=== PATIENT | female | born 1945 | race Hispanic/Latino ===

== ENCOUNTER 2016-12-04 18:35 | Inpatient (IN) | payer MEDICARE ==
[2016-12-04] MEDS ORDERED: ZOFRAN IV ONE (20:07)
[2016-12-04] MEDS ORDERED: MORPHINE IV ONE ×2 (20:07→22:25)
[2016-12-04] MEDS ORDERED: BENADRYL IV ONE (20:16)
[2016-12-04] MEDS ORDERED: ZOFRAN IM ONE (20:31)
[2016-12-04] MEDS ORDERED: MORPHINE IM ONE (20:31)
--- NOTE | 2016-12-04 20:36 | Emergency Department Report ---
ED Fall HPI - General Chief Complaint: Fall Stated Complaint: FALL/HIP PAIN Time Seen by Provider: 12/04/16 19:58 Source: patient, family, EMS Mode of arrival: Stretcher - History of Present Illness Initial Comments: PATIENT STATED THAT SHE WAS WALKING AND TRIPPED FELL ON HER LEFT SIDE C/O LEFT HIP PAIN. NO OTHER INJURY. Complaint: fall -: Sudden Fall From: standing When Fall Occurred: just prior to arrival Fall Witnessed: yes, by family Place Fall Occurred: home Loss of Consciousness: none Prolonged Down Time?: no Symptoms Prior to Fall: none Location: pelvis Quality: sharp Context: tripped/slipped - Related Data Allergies Allergy/AdvReac Type Severity Reaction Status Date / Time Sulfa (Sulfonamide Allergy Intermediate Rash Unverified 02/18/13 09:05 Antibiotics) metoclopramide HCl Allergy Dizziness Unverified 02/18/13 09:06 [From Reglan] phenacetin [Phenacetin] Allergy Dizziness Unverified 02/18/13 09:06 ED Review of Systems ROS: Stated complaint: FALL/HIP PAIN Other details as noted in HPI Comment: All other systems reviewed and negative ED Past Medical Hx - Past Medical History Previous Medical History?: Yes Hx Renal Disease: Yes Hx Headaches / Migraines: Yes Hx Asthma: Yes Hx COPD: Yes Additional medical history: fibromyalgia lupus - Surgical History Past Surgical History?: Yes Hx Cholecystectomy: Yes Additional Surgical History: colon surgery total hyst - Social History Smoking Status: Current Every Day Smoker Substance Use Type: Prescribed ED Physical Exam - General Limitations: Physical Limitation General appearance: alert, in no apparent distress - Head Head exam: Present: atraumatic - Eye Eye exam: Present: normal appearance - ENT ENT exam: Present: normal exam - Neck Neck exam: Present: normal inspection - Respiratory Respiratory exam: Present: normal lung sounds bilaterally - Cardiovascular Cardiovascular Exam: Present: regular rate - GI/Abdominal GI/Abdominal exam: Present: soft. Absent: distended, tenderness, guarding, rebound, organomegaly, mass, bruit - Rectal Rectal exam: Present: normal inspection - Extremities Exam Extremities exam: Present: normal inspection - Back Exam Back exam: Present: normal inspection - Neurological Exam Neurological exam: Present: alert, oriented X3, CN II-XII intact. Absent: motor sensory deficit ED Course Vital Signs 12/04/16 12/04/16 12/04/16 15:16 15:20 15:30 Temperature Pulse Rate 55 L 51 L Respiratory 15 29 H 11 L Rate Blood Pressure Blood Pressure [Left] O2 Sat by Pulse 100 100 99 Oximetry 12/04/16 12/04/16 12/04/16 15:40 15:50 16:00 Temperature Pulse Rate 53 L Respiratory 18 18 16 Rate Blood Pressure Blood Pressure [Left] O2 Sat by Pulse 97 96 97 Oximetry 12/04/16 12/04/16 12/04/16 16:10 16:20 16:30 Temperature Pulse Rate Respiratory 16 17 18 Rate Blood Pressure Blood Pressure [Left] O2 Sat by Pulse 97 96 97 Oximetry 12/04/16 12/04/16 12/04/16 16:40 16:50 17:00 Temperature Pulse Rate Respiratory 17 16 17 Rate Blood Pressure Blood Pressure [Left] O2 Sat by Pulse 98 97 99 Oximetry 12/04/16 12/04/16 12/04/16 17:10 17:20 19:14 Temperature Pulse Rate Respiratory 15 19 14 Rate Blood Pressure Blood Pressure [Left] O2 Sat by Pulse 97 83 L Oximetry 12/04/16 12/04/16 12/04/16 19:20 19:30 19:34 Temperature 99 F Pulse Rate 66 68 66 Respiratory 13 17 17 Rate Blood Pressure 121/68 121/68 121/66 Blood Pressure 121/66 [Left] O2 Sat by Pulse 97 94 94 Oximetry 12/04/16 12/04/16 12/04/16 19:38 19:40 19:50 Temperature Pulse Rate 69 67 Respiratory 17 15 19 Rate Blood Pressure 132/54 132/54 Blood Pressure [Left] O2 Sat by Pulse 94 98 96 Oximetry 12/04/16 12/04/16 12/04/16 20:00 20:10 20:20 Temperature Pulse Rate 73 69 69 Respiratory 16 22 10 L Rate Blood Pressure 132/54 94/66 94/66 Blood Pressure [Left] O2 Sat by Pulse 97 97 97 Oximetry 12/04/16 12/04/16 12/04/16 20:30 20:40 20:50 Temperature Pulse Rate 66 66 66 Respiratory 11 L 12 13 Rate Blood Pressure 121/100 121/100 94/66 Blood Pressure [Left] O2 Sat by Pulse 97 95 95 Oximetry 12/04/16 12/04/16 12/04/16 21:00 21:10 21:20 Temperature Pulse Rate 67 65 66 Respiratory 16 13 14 Rate Blood Pressure 94/66 109/59 121/100 Blood Pressure [Left] O2 Sat by Pulse 95 98 99 Oximetry 12/04/16 12/04/16 12/04/16 21:30 21:40 21:50 Temperature Pulse Rate 63 65 64 Respiratory 12 13 13 Rate Blood Pressure 121/100 116/51 116/51 Blood Pressure [Left] O2 Sat by Pulse 95 96 97 Oximetry 12/04/16 12/04/16 12/04/16 22:00 22:10 23:01 Temperature Pulse Rate 68 66 Respiratory 14 15 Rate Blood Pressure 116/51 117/48 124/47 Blood Pressure [Left] O2 Sat by Pulse 94 95 95 Oximetry - Reevaluation(s) Reevaluation #1: 12/05/16 00:[address] PALOMINO AND HE ADVISED TO ADMIT TO THE HOSPITALIST AND WILL DO SURGERY ON SATURDAY. Critical care attestation.: If time is entered above; I have spent that time in minutes in the direct care of this critically ill patient, excluding procedure time. ED Disposition Clinical Impression: Closed left hip fracture Disposition: OP ADMIT IP TO THIS HOSP Is pt being admited?: Yes Does the pt Need Aspirin: No Condition: Stable Referrals: PRIMARY CARE, [Primary Care Provider] - 3-5 Days
[2016-12-04] MEDS ORDERED: DECADRON IV ONE (22:25)
--- NOTE | 2016-12-04 23:36 | Cat Scan Report ---
FINAL REPORT PROCEDURE: CT LOWER EXTREMITY LT WO CON TECHNIQUE: Computerized axial tomography of the LEFT hip was performed without contrast. HISTORY: LEFT HIP INJURY, R/O FX COMPARISON: No prior studies are available for comparison. FINDINGS: Bony structures including marrow spaces: There is an impacted fracture of the proximal left femur involving a portion of the femoral neck and extending in the intertrochanteric region of the proximal left femur. Neurovascular structures: Normal. Soft tissues: Mild soft tissue swelling Joint space: Normal. IMPRESSION: Impacted fracture of the proximal left femur involving a portion of the distal femoral neck and extending in the intertrochanteric region of the proximal left femur. Mild associated soft tissue swelling.
[2016-12-05] MEDS ORDERED: MORPHINE IV ONE (00:28)
--- NOTE | 2016-12-05 01:00 | History and Physical Report ---
History of Present Illness Date of examination: 12/05/16 History of present illness: 71-year-old woman with a history of hypertension, lupus, fibromyalgia, COPD comes to the emergency room complaining of left hip pain after a fall. Was no loss of consciousness, patient think that she tripped over an object on the floor Patient denies chest pain, palpitation, shortness of breath, cough, abdominal pain, hematochezia, dysuria, frequency, focal weakness, dysarthria, fever chills , polydipsia polyuria, hot or cold intolerance, easy bruisability, or rash or bleeding from mucosal membrane, rhinorrhea, epistaxis, earache, tinnitus, blurry vision, eye discharge, anxiety, depression. Other review of systems negative PAST SURGICAL HISTORY: Colectomy, hysterectomy, cholecystectomy SOCIAL HISTORY: Smoke a pack a day, no alcohol or drugs FAMILY HISTORY: Hypertension Medications and Allergies Allergies Allergy/AdvReac Type Severity Reaction Status Date / Time Sulfa (Sulfonamide Allergy Intermediate Rash Unverified 02/18/13 09:05 Antibiotics) metoclopramide HCl Allergy Dizziness Unverified 02/18/13 09:06 [From Reglan] phenacetin [Phenacetin] Allergy Dizziness Unverified 02/18/13 09:06 Exam - Physical Exam Narrative exam: Gen. appearance: Patient lying in bed, no apparent distress HEENT: Normocephalic, atraumatic, pupils equally round and reactive to light, extraocular movement intact, and no sclericterus,. No JVD or thyromegaly or nodule,neck supple, no carotid bruit ,mucous membranes moist, no exudate or erythema Heart: S1, S2, regular rate and rhythm Lungs: Clear to auscultation bilaterally, breathing comfortable Abdomen: Positive bowel sounds, nontender, nondistended, no organomegaly Extremity: No edema, cyanosis, clubbing Skin: No rash, nodules, warm, dry Neuro: Oriented 3, cranial nerves II-12 intact, speech is fluent, motor and sensory intact - Constitutional Vitals: Temp Pulse Resp BP Pulse Ox 99 F 74 18 130/56 95 12/04/16 19:34 12/05/16 00:35 12/05/16 00:35 12/05/16 00:20 12/05/16 00:20 Results - Labs CBC & Chem 7: 12/05/16 01:17 12/05/16 01:17 - Imaging and Cardiology EKG: image reviewed Assessment and Plan CT lower extremity reviewed Left hip fracture Hypertension Lupus Fibromyalgia COPD Admit to medicine Start IV morphine, consult orthopedic Continue outpatient medication, start DVT prophylaxis Check labs now
[2016-12-05] MEDS ORDERED: DULCOLAX PR PRN (01:14)
[2016-12-05] MEDS ORDERED: ZOFRAN IV PRN (01:14)
[2016-12-05] MEDS ORDERED: MILK OF MAGNESIA PO PRN (01:14)
[2016-12-05 01:35] LABS: Basophils % (Auto) 0.5 % (0.0-1.8); Eosinophils % (Auto) 1.1 % (0.0-4.3); Hemoglobin 13.1 gm/dl (10.1-14.3); Mean Corpuscular HGB Conc 33 % (30-34); Mean Corpuscular Hemoglobin 30 pg (28-32); Mean Corpuscular Volume 92 fl (79-97); Platelet Count 257 K/mm3 (140-440); Red Blood Count 4.34 M/mm3 (3.65-5.03); Red Cell Distribution Width 13.9 % (13.2-15.2); White Blood Count 16.1 K/mm3 (4.5-11.0)
[2016-12-05 01:56] LABS: Anion Gap 18 mmol/L; BUN/Creatinine Ratio 12.85; Blood Urea Nitrogen 9 mg/dL (7-17); Calcium 8.5 mg/dL (8.4-10.2); Carbon Dioxide 28 mmol/L (22-30); Chloride 98.6 mmol/L (98-107); Glucose 123 mg/dL (65-100); Potassium 3.1 mmol/L (3.6-5.0); Sodium 141 mmol/L (137-145)
[2016-12-05] MEDS ORDERED: K-DUR PO ONE (01:59)
--- NOTE | 2016-12-05 02:15 | Admit Criteria Form ---
Admission Criteria Documentation: MUSCULOSKELETAL DISEASE GRG Clinical Indications for Admission to Inpatient Care (Place 'X' for any and all applicable criteria): Hospital admission is needed for appropriate care of the patient because of 1 or more of the following: [ X]I. Fracture, dislocation, or other musculoskeletal injury requiring inpatient care(medical) as indicated by 1 or more of the following(4)(5)(6)(7) [ ]a) Vertebral fracture requiring observation for instability or neurologic compromise (8) [ ]b) Compartment syndrome (proven or cannot be ruled out during observation level of care) (9) [ ]c) Limb-threatening injury [ X]d) Major injury requiring inpatient stabilization such as traction initiation or external fixation before internal fixation or closure of complex or open fracture [ ]e) Major injury requiring inpatient treatment after emergency or observation level care (as appropriate) [ ]f) Severe pain requiring acute inpatient management [ ]g) Injury with suspicion of abuse or neglect (eg., child, dependent elderly) [ ]II. Newly diagnosed or suspected bone, joint, or orthopedic device infection (e.g., osteomyelitis, septic arthritis) needing 1 or more of the following(1)(2)(3) [ ]a) IV antibiotics that cannot be initiated in other than inpatient setting (e.g., patient too unstable or home infusion not available) [ ]b) Device removal or replacement [ ]c) Bone or soft tissue debridement [ ]d) Joint drainage (drain placement or repetitive aspirations) [ ]III. Severe rheumatologic disease (e.g., systemic lupus erythematosus, rheumatoid arthritis) with complications or comorbidities (Also use Optimal Recovery Care Criteria or General Recovery Criteria as appropriate on the basis of predominant condition), including 1 or more of the following( 10)(11)(12)(13) [ ]a) Severe infection (e.g., GUM ROLLING MACHINE OPERATOR infection, sepsis) (14) [ ]b) Respiratory complications, including 1 or more of the following : [ ]i) Pleural effusion with respiratory compromise [ ]ii) Pulmonary hypertension with congestive failure [ ]iii) Respiratory failure [ ]iv) Pulmonary hemorrhage (15) [ ]c) Hematologic disease, including 1 or more of the following: [ ]i) Coagulopathy with bleeding [ ]ii) Thrombosis with hypercoagulable state [ ]iii) Thrombotic thrombocytopenic purpura [ ]d) Cerebritis with seizures, psychosis, or other severe abnormalities [ ]e) Vertebral destruction with monitoring needed for cervical myelopathy& possible respiratory compromise [ ]f) Exacerbation that requires inpatient treatment (e.g., intravenous immunosuppression) (16) [ ]g) Acute renal failure [ ]h) Cerebritis with seizures, psychosis, Altered mental status, or other neurologic abnormalities [ ]i) Pericardial effusion with tamponade [ ]j) Vertebral destruction, with monitoring needed for cervical myelopathy and possible respiratory compromise [ ]IV. Severe vasculitis with complications or comorbidities (Also use Optimal Recovery Care Criteria General Recovery Criteria as appropriate on the basis of predominant condition), including 1 or more of the following(11)(12)(17)(18)(19)(20) [ ]a) Exacerbation that requires inpatient treatment (e.g., intravenous immunosuppression) (19)(21) [ ]b) Pulmonary hemorrhage (15) [ ]c) G[employer] RO[employer]ING MACHINE OPERATOR vasculitis with seizures, psychosis, Altered mental status that is severe or persistent, or other severe abnormalities (22) [ ]d) Cerebral infarction [ ]e) Gastrointestinal ischemia [ ]f) Gangrene or threatened amputation [ ]g) Renal failure (16) [ ]h) Other significant complications of vasculitis ( eg., tissue or organ ischemia, organ dysfunction ) [ ]V. Severe myopathy as indicated by 1 or more of the following (28)(29) [ ]a) New onset of airway compromise or inability to swallow [ ]b) Respiratory deterioration with observation needed for impending respiratory failure [ ]c) Exacerbation that requires inpatient treatment (e.g., intravenous immunosuppression) [ ]. Severe crystal gout (arthropathy) indicated by 1 or more of the following (23)(24) [ ]a) Severe pain requiring acute inpatient management [ ]b) Exacerbation that requires inpatient treatment (e.g., intravenous treatment) [ ]VII.Rhabdomyolysis and 1 or more of the following (25)(26)(27) [ ]a) Acute renal failure [ ]b) Need for intravenous hydration after emergency or observation level care (as appropriate) [ ]c) Inability to maintain oral hydration [ ]d) Change in mental status [ ]e) Electrolyte abnormality that remains after emergency or observation level care (as appropriate) [ ]VIII Post amputation complication, as indicated by ANY ONE of the following [ ]a) Infection [ ]b) Dehiscence [ ]c) Myodesis failure [ ]IX. Severe pain requiring acute inpatient management due to musculoskeletal condition [ ]X. Musculoskeletal Disease and ALL of the following: [ ]a) Symptom or finding for which emergency and observation care have failed or are not considered appropriate (Use General Criteria: Observation Care as appropriate) [ ]b) Presence of ANY ONE of the following [ ]i) A General Admission Criteria [ ]ii) A Pediatric General Admission Criteria The original [facility] [employer] content created by [facility] [employer] has been revised. The portions of the content which have been revised are identified through the use of italic text or in bold, and [facility] has neither reviewed nor approved the modified material. All other unmodified content is copyright [facility] [employer]. Please see references footnoted in the original [facility] edition 2016 Admission Criteria Met: Yes
--- NOTE | 2016-12-05 07:55 | XRay Report ---
LEFT HIP, 2 views: History: Left hip pain after fall. Normal bone mineralization. A mildly displaced intertrochanteric fracture is identified in the proximal left femur. Fracture lines are identified through the greater trochanter. No convincing involvement of the lesser trochanter. Normal articulation of the left hip. No pelvic fracture is detected. Consider further evaluation with CT. IMPRESSION: Proximal left femur fracture as described.
[2016-12-05] MEDS: MORPHINE IV PRN ×3 (11:27→21:42)
--- NOTE | 2016-12-05 11:47 | Event Note ---
71-year-old woman with a past medical history of lupus- in remission, fibromyalgia, opioid dependence who presents status post fall found to have left hip fracture Left hip fracture Currently immobilized, continue pain medications, Dr. Kim of orthopedic surgery consulted for possible surgical management. Patient is medically optimized for surgical intervention. Opioid dependence/chronic pain syndrome due to Scoliosis and Fibromyalgia continue home meds, she will need to fup her Pain management dr, Dr Felix dean to attempt to wean her off narcotics Hypokalemia Has been repleted Fibromyalgia continue seroquel hx of migraine PORTER continue propranalol DVT prophylaxis Lovenox
[2016-12-05] MEDS ORDERED: METHADONE 10 MG PO SCH (14:00)
--- NOTE | 2016-12-05 19:06 | Consultation ---
History of Present Illness - [facility] Consult date: 12/05/16 Consult reason: fracture History of present illness: 71-year-old woman with a history of hypertension, lupus, fibromyalgia, COPD comes to the emergency room complaining of left hip pain after a fall. X-rays were obtained revealing a fracture at the base of the neck with moderate displacement Medications and Allergies Allergies Allergy/AdvReac Type Severity Reaction Status Date / Time Sulfa (Sulfonamide Allergy Intermediate Rash Unverified 02/18/13 09:05 Antibiotics) metoclopramide HCl Allergy Dizziness Unverified 02/18/13 09:06 [From Reglan] phenacetin [Phenacetin] Allergy Dizziness Unverified 02/18/13 09:06 Home Medications Medication Instructions Recorded Confirmed Last Taken Type Methadone 10 PO TID 12/05/16 12/03/16 21:00 History 10 Ondansetron 4 12/05/16 Unknown History Propranolol HCl ER 60 PO DAILY 12/05/16 12/03/16 21:00 History 60 Propranolol HCl [Propranolol HCl 60 mg PO 12/05/16 12/03/16 21:00 History ER] 60 QUEtiapine [SEROquel] 300 mg PO BID 12/05/16 12/05/16 12/05/16 04:00 History 300 Active Meds: Active Medications Bisacodyl (Dulcolax) 10 mg TN QDAY PRN PRN Reason: Constipation unrelieved by MOM Magnesium Hydroxide (Milk Of Magnesia) 30 ml PO Q4H PRN PRN Reason: Constipation Methadone HCl (Dolophine) 10 mg PO TID [facility] Morphine Sulfate (Morphine) 2 mg IV Q4H PRN PRN Reason: Pain, Moderate (4-6) Last Admin: 12/05/16 16:51 Dose: 2 mg Ondansetron HCl (Zofran) 4 mg IV Q8H PRN PRN Reason: N/V unrelieved by Reglan Oxycodone/Acetaminophen (Percocet 5/325) 2 tab PO Q6H PRN PRN Reason: Pain, Moderate (4-6) Propranolol HCl (Inderal La) 60 mg PO DAILY RICK Quetiapine Fumarate (Seroquel) 300 mg PO BID [facility] Physical Examination - Physical exam Narrative exam: Alert and oriented 3 Significant musculoskeletal examination at the left hip. She was noted to have tenderness on palpation skin was intact active range of motion decreased distal neurovascular status intact Plain x-rays of the left hip reveal a basilar neck fracture Assessment and Plan Assessment - base of the neck left femoral fracture Recommendations -intra-medullary nail insertion left hip
[2016-12-05] MEDS: DOLOPHINE PO SCH (21:41)
[2016-12-05] MEDS: PERCOCET 5/325 PO PRN (21:48)
[2016-12-06] MEDS: PERCOCET 5/325 PO PRN ×2 (06:24→17:21)
[2016-12-06 08:03] LABS: Hematocrit 38.4 % (30.3-42.9); Hemoglobin 12.5 gm/dl (10.1-14.3); Mean Corpuscular HGB Conc 32 % (30-34); Mean Corpuscular Hemoglobin 30 pg (28-32); Mean Corpuscular Volume 94 fl (79-97); Red Blood Count 4.11 M/mm3 (3.65-5.03); Red Cell Distribution Width 14.4 % (13.2-15.2); White Blood Count 14.9 K/mm3 (4.5-11.0)
[2016-12-06 08:04] LABS: Basophils % (Auto) 0.4 % (0.0-1.8); Eosinophils % (Auto) 0.9 % (0.0-4.3); Platelet Count 236 K/mm3 (140-440)
[2016-12-06 08:16] LABS: Anion Gap 14 mmol/L; Blood Urea Nitrogen 16 mg/dL (7-17); Calcium 8.6 mg/dL (8.4-10.2); Carbon Dioxide 33 mmol/L (22-30); Chloride 99.8 mmol/L (98-107); Glucose 104 mg/dL (65-100); Potassium 3.6 mmol/L (3.6-5.0); Sodium 143 mmol/L (137-145)
[2016-12-06] MEDS: MORPHINE IV PRN ×3 (08:36→21:02)
--- NOTE | 2016-12-06 08:43 | Anesthesia Consultation ---
Anesthesia Consult and Med Hx Date of service: 12/06/16 - Airway Anesthetic Teeth Evaluation: Dentures (upper and lower) ROM Head & Neck: Adequate Mental/Hyoid Distance: Adequate Mallampati Class: Class II Intubation Access Assessment: Probably Good - Pre-Operative Health Status ASA Pre-Surgery Classification: ASA3 Proposed Anesthetic Plan: Spinal - Pulmonary Hx Smoking: Yes (1 p/d x 50 years) Hx Asthma: Yes COPD: Yes (on breathing treatment) - Cardiovascular System Hx Hypertension: No (takes propanolol for other reasons) - Central Nervous System Hx Neuromuscular Disorder: Yes (lupus, fibromyalgea) Hx Back Pain: Yes (scoleosis) - Endocrine 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) - Other Systems Hx Substance Use: Yes (on high doses of prescription meds)
--- NOTE | 2016-12-06 08:46 | Anesthesia Day of Surgery ---
Anesthesia Day of Surgery - Day of Surgery Patient Examined: Yes Patient H&P Reviewed: Yes Patient is NPO: Yes Beta Blockers: Yes
[2016-12-06] MEDS ORDERED: VERSED IV NR (09:00)
[2016-12-06] MEDS ORDERED: PEPCID IV NR (09:00)
[2016-12-06] MEDS ORDERED: PROVENTIL IH NR (09:00)
[2016-12-06] MEDS: DOLOPHINE PO SCH ×2 (09:50→21:06)
[2016-12-06] MEDS: INDERAL LA PO SCH (10:00)
--- NOTE | 2016-12-06 11:22 | Progress Note ---
Assessment and Plan Assessment and plan: 71-year-old woman with a past medical history of lupus- in remission, fibromyalgia, opioid dependence who presents status post fall found to have left hip fracture Left hip fracture Currently immobilized, continue pain medications, Dr. Kim of orthopedic surgery input appreciated for intra medullary nail insertion today Patient is medically optimized for surgical intervention Opioid dependence/chronic pain syndrome due to Scoliosis and Fibromyalgia continue home meds, she will need to fup her Pain management dr, Dr Felix dean to attempt to wean her off narcotics Hypokalemia Has been repleted, and normalized Fibromyalgia continue seroquel hx of migraine PORTER continue propranalol for migraine ppx DVT prophylaxis Lovenox History Interval history: she is complaining of Left hip pain, unable to move her left hip Hospitalist Physical - Physical exam Narrative exam: General: Patient appears well in no distress HEENT: MMM, EOMI cardiac: S1-S2 heard lungs: clear to auscultation, abdomen: soft, nontender, nondistended bowel sounds positive extremities: LLE imobilized Skin: no rash or lesion Neuro: no focal deficit Psych: appropriate behavior and mood, cognition intact - Constitutional Vitals: Temp Pulse Resp BP Pulse Ox 98 F 66 18 133/49 97 12/06/16 10:00 12/06/16 10:00 12/06/16 10:00 12/06/16 10:00 12/06/16 10:00 Results - Labs CBC & Chem 7: 12/06/16 07:18 12/06/16 07:18 Labs: Laboratory Last Values WBC 14.9 K/mm3 (4.5-11.0) H 12/06/16 07:18 RBC 4.11 M/mm3 (3.65-5.03) 12/06/16 07:18 Hgb 12.5 gm/dl (10.1-14.3) 12/06/16 07:18 Hct 38.4 % (30.3-42.9) 12/06/16 07:18 MCV 94 fl (79-97) 12/06/16 07:18 MCH 30 pg (28-32) 12/06/16 07:18 MCHC 32 % (30-34) 12/06/16 07:18 RDW 14.4 % (13.2-15.2) 12/06/16 07:18 Plt Count 236 K/mm3 (140-440) 12/06/16 07:18 Lymph % (Auto) 18.4 % (13.4-35.0) 12/06/16 07:18 [place] % (Auto) 7.0 % (0.0-7.3) 12/06/16 07:18 Eos % (Auto) 0.9 % (0.0-4.3) 12/06/16 07:18 Baso % (Auto) 0.4 % (0.0-1.8) 12/06/16 07:18 Lymph # 2.8 K/mm3 (1.2-5.4) 12/06/16 07:18 [place] # 1.0 K/mm3 (0.0-0.8) H 12/06/16 07:18 Eos # 0.1 K/mm3 (0.0-0.4) 12/06/16 07:18 Baso # 0.1 K/mm3 (0.0-0.1) 12/06/16 07:18 Seg Neutrophils % 73.3 % (40.0-70.0) H 12/06/16 07:18 Seg Neutrophils # 10.9 K/mm3 (1.8-7.7) H 12/06/16 07:18 Sodium 143 mmol/L (137-145) 12/06/16 07:18 Potassium 3.6 mmol/L (3.6-5.0) 12/06/16 07:18 Chloride 99.8 mmol/L (98-107) 12/06/16 07:18 Carbon Dioxide 33 mmol/L (22-30) H 12/06/16 07:18 Anion Gap 14 mmol/L 12/06/16 07:18 BUN 16 mg/dL (7-17) 12/06/16 07:18 Creatinine 0.8 mg/dL (0.7-1.2) 12/06/16 07:18 Estimated GFR > 60 ml/min 12/06/16 07:18 BUN/Creatinine Ratio 20.00 % 12/06/16 07:18 Glucose 104 mg/dL (65-100) H 12/06/16 07:18 Calcium 8.6 mg/dL (8.4-10.2) 12/06/16 07:18
[2016-12-06] MEDS: LACTATED RINGERS 1,000 ML IV SCH ×2 (12:45→18:38)
[2016-12-06] MEDS ORDERED: XYLOCAINE MPF 2% ONE (12:58)
[2016-12-06] MEDS ORDERED: DIPRIVAN 10 MG/ML IV ONE (12:59)
[2016-12-06] MEDS ORDERED: DILAUDID ONE ×2 (12:59→14:51)
[2016-12-06] MEDS ORDERED: NACL BACTERIOSTATIC INFILTRATI ONE (13:15)
[2016-12-06] MEDS ORDERED: ePHEDrine SULFATE ONE (13:35)
[2016-12-06] MEDS ORDERED: DECADRON ONE (13:39)
[2016-12-06] MEDS ORDERED: NEOSPORIN GU IR ONE ×3 (13:39→14:15)
[2016-12-06] MEDS ORDERED: ZOFRAN ONE (13:40)
[2016-12-06] MEDS ORDERED: NACL 0.9% IR ONE ×3 (14:08→14:15)
[2016-12-06] MEDS: DILAUDID IV PRN ×4 (14:50→15:25)
--- NOTE | 2016-12-06 17:31 | Procedure Note ---
Date of procedure: 12/06/16 Pre-op diagnosis: left base of the neck femur fracture Post-op diagnosis: same Procedure: Procedure -closed reduction and insertion of intramedullary nail left femur Indications- 71-year-old female who slipped and fell recently sustaining a base of the neck femur fracture on the left Procedure The patient was brought to the OR placed or table in supine position following induction and intubation by anesthesia the patient was placed in onto the fracture table with the left lower extremity in longitudinal traction the left was suspended using a popliteal post C-arm fluoroscopy was brought in and the hip was reduced in both the AP and lateral planes. Next the left hip was prepped and draped in the usual sterile manner, this is followed by a timeout procedure to identify the patient and the proper operative site next a stab wound was made superior to the greater trochanter this was then taken down through skin and subcutaneous tissue using digital palpation the greater tuberosity was felt A large awl was used to enter the proximal canal this is followed by placement of the guidewire down the medullary canal towards the distal femur again C-arm fluoroscopy was used throughout next the hip was canal was reamed to a 13 mm diameter this was followed by insertion of the Synthe[employer] TFN nail measuring 11 x 360 mm again care was taken to insert the nail proper orientation next the right screw insertion was made 90 mm lag screw was chosen again this was inserted using standard technique following this the distal locking screw was inserted again using C-arm visualization a 44 mm 4.5 locking screw was chosen x-rays were taken showing good reduction of the fracture and placement of the hardware following this the wound was copiously irrigated and was closed in a standard routine fashion. Dressings were applied the patient tolerated the procedure and there were no complications he was sent to postanesthesia recovery in stable condition Anesthesia: GULSHANA Surgeon: YOSELIN PALOMINO Estimated blood loss: other (300 mL) Pathology: none Condition: stable Disposition: PACU
[2016-12-07] MEDS: DOLOPHINE PO SCH ×4 (00:23→20:18)
[2016-12-07] MEDS: MORPHINE IV PRN ×4 (02:33→22:11)
[2016-12-07] MEDS: LACTATED RINGERS 1,000 ML IV SCH ×2 (04:50→15:52)
[2016-12-07] MEDS: PERCOCET 5/325 PO PRN ×2 (05:50→20:17)
--- NOTE | 2016-12-07 07:41 | Progress Note ---
Assessment and Plan Assessment and plan: 71-year-old woman with a past medical history of lupus- in remission, fibromyalgia, opioid dependence who presents status post fall found to have left hip fracture Left hip fracture , continue pain medications, Dr. 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 Hospitalist Physical - Physical exam Narrative exam: General: Patient appears well in no distress HEENT: MMM, EOMI cardiac: S1-S2 heard lungs: clear to auscultation, abdomen: soft, nontender, nondistended bowel sounds positive extremities: No edema Skin: no rash or lesion Neuro: no focal deficit Psych: appropriate behavior and mood, cognition intact - Constitutional Vitals: Temp Pulse Resp BP Pulse Ox 98.0 F 58 L 20 118/55 100 12/07/16 05:09 12/07/16 05:09 12/07/16 05:50 12/07/16 05:09 12/07/16 05:09 Results - Labs CBC & Chem 7: 12/07/16 08:23 12/07/16 08:23 Labs: Laboratory Last Values WBC 14.9 K/mm3 (4.5-11.0) H 12/06/16 07:18 RBC 4.11 M/mm3 (3.65-5.03) 12/06/16 07:18 Hgb 12.5 gm/dl (10.1-14.3) 12/06/16 07:18 Hct 38.4 % (30.3-42.9) 12/06/16 07:18 MCV 94 fl (79-97) 12/06/16 07:18 MCH 30 pg (28-32) 12/06/16 07:18 MCHC 32 % (30-34) 12/06/16 07:18 RDW 14.4 % (13.2-15.2) 12/06/16 07:18 Plt Count 236 K/mm3 (140-440) 12/06/16 07:18 Lymph % (Auto) 18.4 % (13.4-35.0) 12/06/16 07:18 [place] % (Auto) 7.0 % (0.0-7.3) 12/06/16 07:18 Eos % (Auto) 0.9 % (0.0-4.3) 12/06/16 07:18 Baso % (Auto) 0.4 % (0.0-1.8) 12/06/16 07:18 Lymph # 2.8 K/mm3 (1.2-5.4) 12/06/16 07:18 [place] # 1.0 K/mm3 (0.0-0.8) H 12/06/16 07:18 Eos # 0.1 K/mm3 (0.0-0.4) 12/06/16 07:18 Baso # 0.1 K/mm3 (0.0-0.1) 12/06/16 07:18 Seg Neutrophils % 73.3 % (40.0-70.0) H 12/06/16 07:18 Seg Neutrophils # 10.9 K/mm3 (1.8-7.7) H 12/06/16 07:18 Sodium 143 mmol/L (137-145) 12/06/16 07:18 Potassium 3.6 mmol/L (3.6-5.0) 12/06/16 07:18 Chloride 99.8 mmol/L (98-107) 12/06/16 07:18 Carbon Dioxide 33 mmol/L (22-30) H 12/06/16 07:18 Anion Gap 14 mmol/L 12/06/16 07:18 BUN 16 mg/dL (7-17) 12/06/16 07:18 Creatinine 0.8 mg/dL (0.7-1.2) 12/06/16 07:18 Estimated GFR > 60 ml/min 12/06/16 07:18 BUN/Creatinine Ratio 20.00 % 12/06/16 07:18 Glucose 104 mg/dL (65-100) H 12/06/16 07:18 Calcium 8.6 mg/dL (8.4-10.2) 12/06/16 07:18
--- NOTE | 2016-12-07 08:18 | XRay Report ---
LEFT FEMUR FOUR FLUOROSCOPIC VIEWS: 12/05/16 01:14:00 CLINICAL: Left femur rodding. FINDINGS: Rods are identified in the femoral neck and in the shaft of the femur. The right in the neck traverses a femoral neck fracture. Normal alignment at the hip. For more details, please refer to the operative report.
[2016-12-07 08:44] LABS: Hematocrit 31.6 % (30.3-42.9); Hemoglobin 10.3 gm/dl (10.1-14.3); Mean Corpuscular HGB Conc 33 % (30-34); Mean Corpuscular Hemoglobin 31 pg (28-32); Mean Corpuscular Volume 94 fl (79-97); Platelet Count 209 K/mm3 (140-440); Red Blood Count 3.37 M/mm3 (3.65-5.03); Red Cell Distribution Width 14.4 % (13.2-15.2); White Blood Count 12.5 K/mm3 (4.5-11.0)
[2016-12-07 08:56] LABS: Anion Gap 12 mmol/L; BUN/Creatinine Ratio 16.25; Blood Urea Nitrogen 13 mg/dL (7-17); Carbon Dioxide 29 mmol/L (22-30); Chloride 102.1 mmol/L (98-107); Glucose 116 mg/dL (65-100); Potassium 3.5 mmol/L (3.6-5.0); Sodium 140 mmol/L (137-145)
--- NOTE | 2016-12-07 09:39 | Progress Note ---
Subjective Date of service: 12/07/16 Interval history: Patient seen on post-op day 1, not allowed to ambulate yet, satisfied with anesthesia. Objective - Constitutional Vitals: Vital Signs - 12hr 12/06/16 12/06/16 12/06/16 22:00 22:06 22:08 Temperature Pulse Rate [ Apical] Pulse Rate [ Left Radial] Pulse Rate [ Right Radial] Respiratory 18 Rate Respiratory 20 Rate [Left Hip] Blood Pressure [Left Radial Artery] O2 Sat by Pulse 97 Oximetry 12/06/16 12/07/16 12/07/16 22:30 01:04 02:33 Temperature 97.4 F L Pulse Rate [ Apical] Pulse Rate [ 89 Left Radial] Pulse Rate [ 89 Right Radial] Respiratory 20 20 20 Rate Respiratory Rate [Left Hip] Blood Pressure 137/76 [Left Radial Artery] O2 Sat by Pulse 97 97 Oximetry 12/07/16 12/07/16 12/07/16 03:03 05:09 05:50 Temperature 98.0 F Pulse Rate [ 58 L Apical] Pulse Rate [ 58 L Left Radial] Pulse Rate [ 58 L Right Radial] Respiratory 18 20 20 Rate Respiratory Rate [Left Hip] Blood Pressure 118/55 [Left Radial Artery] O2 Sat by Pulse 100 Oximetry 12/07/16 12/07/16 07:20 08:22 Temperature 98.5 F Pulse Rate [ 66 Apical] Pulse Rate [ 66 Left Radial] Pulse Rate [ 66 Right Radial] Respiratory 18 Rate Respiratory Rate [Left Hip] Blood Pressure 97/55 [Left Radial Artery] O2 Sat by Pulse 95 97 Oximetry - Labs CBC & Chem 7: 12/07/16 08:23 12/07/16 08:23 Labs: Abnormal lab results 12/07/16 12/07/16 Range/Units 08:23 08:23 WBC 12.5 H (4.5-11.0) K/mm3 RBC 3.37 L (3.65-5.03) M/mm3 Potassium 3.5 L (3.6-5.0) mmol/L Glucose 116 H (65-100) mg/dL Calcium 8.0 L (8.4-10.2) mg/dL
[2016-12-07] MEDS: INDERAL LA PO SCH (10:14)
[2016-12-07] MEDS ORDERED: K-DUR PO ONE ×2 (10:44→16:02)
--- NOTE | 2016-12-07 14:54 | Progress Note ---
Assessment and Plan Status post intramedullary nail left hip Continue physical therapy and observation Subjective Date of service: 12/07/16 Interval history: Doing well got up with physical therapy took several steps in the room and in the hallway Objective Vital signs: Vital Signs - 12hr 12/07/16 12/07/16 12/07/16 03:03 05:09 05:50 Temperature 98.0 F Pulse Rate [ 58 L Apical] Pulse Rate [ 58 L Left Radial] Pulse Rate [ 58 L Right Radial] Respiratory 18 20 20 Rate Blood Pressure 118/55 [Left Radial Artery] O2 Sat by Pulse 100 Oximetry 12/07/16 12/07/16 07:20 08:22 Temperature 98.5 F Pulse Rate [ 66 Apical] Pulse Rate [ 66 Left Radial] Pulse Rate [ 66 Right Radial] Respiratory 18 Rate Blood Pressure 97/55 [Left Radial Artery] O2 Sat by Pulse 95 97 Oximetry - Labs CBC & BMP: 12/07/16 08:23 12/07/16 08:23 Labs: Abnormal lab results 12/07/16 12/07/16 Range/Units 08:23 08:23 WBC 12.5 H (4.5-11.0) K/mm3 RBC 3.37 L (3.65-5.03) M/mm3 Potassium 3.5 L (3.6-5.0) mmol/L Glucose 116 H (65-100) mg/dL Calcium 8.0 L (8.4-10.2) mg/dL
[2016-12-08] MEDS: PERCOCET 5/325 PO PRN ×2 (06:28→14:43)
[2016-12-08] MEDS: INDERAL LA PO SCH (09:00)
[2016-12-08] MEDS: DOLOPHINE PO SCH ×2 (09:48→14:43)
[2016-12-08] MEDS ORDERED: K-DUR PO SCH (10:00)
--- NOTE | 2016-12-08 13:28 | Progress Note ---
Assessment and Plan Assessment and Plan Assessment and plan: 71-year-old woman with a past medical history of lupus- in remission, fibromyalgia, opioid dependence who presents status post fall found to have left hip fracture Left hip fracture , continue pain medications, Dr. Kim of orthopedic surgery input appreciated , s/p intra medullary nail insertion 12/06/16 PT consult today Opioid dependence/chronic pain syndrome due to Scoliosis and Fibromyalgia continue home meds, she will need to fup her Pain management dr, Dr Felix dean to attempt to wean her off narcotics Hypokalemia continue K supplement Fibromyalgia continue seroquel hx of migraine PORTER continue propranalol for migraine ppx DVT prophylaxis Lovenox Tentative DC home with home PT today, PT consult pending. Subjective Date of service: 12/08/16 Principal diagnosis: S/p L Hip ORIF Interval history: Post op doing well Objective - Constitutional Vitals: Vital Signs - 12hr 12/08/16 12/08/16 12/08/16 06:28 07:28 08:00 Temperature 98.5 F Pulse Rate [ 60 Apical] Pulse Rate [ 62 Left Radial] Pulse Rate [ 62 Right Radial] Respiratory 18 20 20 Rate Blood Pressure 114/56 [Left Radial Artery] O2 Sat by Pulse 96 Oximetry 12/08/16 09:48 Temperature Pulse Rate [ Apical] Pulse Rate [ Left Radial] Pulse Rate [ Right Radial] Respiratory 20 Rate Blood Pressure [Left Radial Artery] O2 Sat by Pulse Oximetry General appearance: Present: no acute distress, well-nourished - EENT Eyes: PERRL, EOM intact ENT: hearing intact, clear oral mucosa Ears: bilateral: normal - Neck Neck: supple, normal ROM - Respiratory Respiratory effort: normal Respiratory: bilateral: CTA - Breasts Breasts: normal - Cardiovascular Rhythm: regular Heart Sounds: Present: S1 & S2. Absent: gallop, rub Extremities: pulses intact, No edema, normal color, Full ROM - Gastrointestinal General gastrointestinal: Present: soft, non-tender, non-distended, normal bowel sounds - Genitourinary Female genitourinary: normal - Integumentary Integumentary: clear, warm, dry - Musculoskeletal Musculoskeletal: 1, strength equal bilaterally - Neurologic Neurologic: moves all extremities - Psychiatric Psychiatric: memory intact, appropriate mood/affect, intact judgment & insight - Labs CBC & Chem 7: 12/07/16 08:23 12/07/16 08:23
[2016-12-08 18:01] VITALS: BP 112/59
--- NOTE | 2016-12-09 14:51 | Discharge Summary ---
Providers - Providers Date of Admission: 12/05/16 01:14 Date of discharge: 12/08/16 Attending physician: YAZAN EISENBERG MD 12/07/16 07:36 Physical Therapy Evaluation and Treat [CONS] Routine Comment: Reason For Exam: debility Primary care physician: VIRGINIA PARNELL MD Hospitalization Condition: Stable Hospital course: See My progress note of 12/06/16 Disposition: DC/TX-06 HOME UNDER HOME TH Core Measure Documentation - Palliative Care Palliative Care/ Comfort Measures: Not Applicable - Core Measures Any of the following diagnoses?: none Exam - Constitutional Vitals: Temp Pulse Resp BP Pulse Ox 98.7 F 76 20 112/59 96 12/08/16 14:43 12/08/16 14:43 12/08/16 15:43 12/08/16 14:43 12/08/16 14:43 General appearance: Present: no acute distress, well-nourished - EENT Eyes: Present: PERRL ENT: hearing intact, clear oral mucosa - Neck Neck: Present: supple, normal ROM - Respiratory Respiratory effort: normal Respiratory: bilateral: CTA - Cardiovascular Heart Sounds: Present: S1 & S2. Absent: rub, click - Extremities Extremities: pulses symmetrical, No edema Peripheral Pulses: within normal limits - Abdominal General gastrointestinal: Present: soft, non-tender, non-distended, normal bowel sounds Female genitourinary: Present: normal - Integumentary Integumentary: Present: clear, warm, dry - Musculoskeletal Musculoskeletal: gait normal, strength equal bilaterally - Psychiatric Psychiatric: appropriate mood/affect, intact judgment & insight - Neurologic Neurologic: CNII-XII intact, moves all extremities Plan Weight Bearing Status: Weight Bear as Tolerated Diet: low salt Follow up with: PRIMARY CAREMD [Primary Care Provider] - 3-5 Days Prescriptions: Oxycodone HCl/Acetaminophen [Percocet 10/325 mg] 1 each PO Q6HR PRN #40 tablet PRN Reason: Pain
== END 2016-12-08 17:10 | disposition home health service (06) | DRG 481 ==
LOC: ED 18:35 → CC2 12-05 01:14 → 3A 12-06 15:06 → 2B-SURG 12-06 15:29
PROVIDERS: ADMIT Internal Medicine; ATTEND Internal Medicine
PROC: 0QSC34Z Reposition Left Lower Femur with Internal Fixation Device, Percutaneous Approach (ICD-10-PCS; principal; 2016-12-06)
DX: S72.002A Fracture of unspecified part of neck of left femur, initial encounter for closed fracture (principal); F11.20 Opioid dependence, uncomplicated; M79.7 Fibromyalgia; E87.6 Hypokalemia; W19.XXXA Unspecified fall, initial encounter; Y93.89 Activity, other specified; Y92.89 Other specified places as the place of occurrence of the external cause; Y99.8 Other external cause status; Z88.2 Allergy status to sulfonamides; Z88.8 Allergy status to other drugs, medicaments and biological substances; J45.909 Unspecified asthma, uncomplicated; J44.9 Chronic obstructive pulmonary disease, unspecified; F17.200 Nicotine dependence, unspecified, uncomplicated; Z90.49 Acquired absence of other specified parts of digestive tract; M32.9 Systemic lupus erythematosus, unspecified; Z90.710 Acquired absence of both cervix and uterus; G89.4 Chronic pain syndrome; I10 Essential (primary) hypertension
CPT/HCPCS: 36415; 80048; 85025; 85027; 96374; 96375; 96376; 99406; C1713; C1769; G8978-GP; G8979-GP; J1100; J1170; J1200; J2250; J2270; J2405; J2704; J7120

== ENCOUNTER 2017-01-21 10:05 | Outpatient (CLI) | payer MEDICARE ==
--- NOTE | 2017-01-21 11:55 | XRay Report ---
LEFT FEMUR, 2 VIEWS History: Left femur fracture. Findings: Compared to the intraoperative films dated 12/06/16. The internally fixated proximal left femur fracture is unchanged in position and alignment. Fracture lines remain visible. Minimal calcified callus is identified. Heterotopic calcifications are forming superior to the left femoral neck. The remainder of the left femur is normal. Impression: Internally fixated proximal left femur fracture with minimal signs of healing since 12/06/16.
== END 2017-01-21 10:06 | disposition home or self-care (01) ==
LOC: XRAY 10:05
PROVIDERS: ATTEND Orthopaedic Surgery
DX: S72.142D Displaced intertrochanteric fracture of left femur, subsequent encounter for closed fracture with routine healing (principal); X58.XXXD Exposure to other specified factors, subsequent encounter; I10 Essential (primary) hypertension; J44.9 Chronic obstructive pulmonary disease, unspecified; J45.909 Unspecified asthma, uncomplicated; F17.200 Nicotine dependence, unspecified, uncomplicated

== ENCOUNTER 2017-10-18 09:52 | Outpatient (CLI) | payer MEDICARE ==
--- NOTE | 2017-10-18 11:18 | XRay Report ---
Left femur 2 views: History: Displaced intertrochanteric fracture of left femur. Findings: There is internal fixation noted of intertrochanteric fracture with intramedullary evelyne and hip nailing. Stable hardware. Stable well aligned fragments. Impression: No evidence of acute fracture.
== END 2017-10-18 09:53 | disposition home or self-care (01) ==
LOC: XRAY 09:52
PROVIDERS: ATTEND Orthopaedic Surgery
DX: S72.142D Displaced intertrochanteric fracture of left femur, subsequent encounter for closed fracture with routine healing (principal); X58.XXXD Exposure to other specified factors, subsequent encounter

== ENCOUNTER 2017-10-31 10:38 | Day surgery (SDC) | payer MEDICARE ==
[~2017-10-31 10:38] MED LIST: LACTATED RINGERS 1,000 ML IV SCH
[2017-10-31] MEDS ORDERED: ANCEF/STERILE WATER 2 GM/20 ML IV NR (12:18)
[2017-10-31] MEDS ORDERED: VERSED IV NR (12:20)
--- NOTE | 2017-10-31 12:27 | Anesthesia Consultation ---
Anesthesia Consult and Med Hx Date of service: 10/31/17 - Airway Anesthetic Teeth Evaluation: Dentures ROM Head & Neck: Adequate Mental/Hyoid Distance: Adequate Mallampati Class: Class II Intubation Access Assessment: Good - Pulmonary Exam CTA: Yes - Cardiac Exam Cardiac Exam: RRR - Pre-Operative Health Status ASA Pre-Surgery Classification: ASA3 Proposed Anesthetic Plan: General - Pulmonary Hx Smoking: Yes (1 PPD X 50 YRS) Hx Asthma: Yes COPD: Yes (NEB PRN) Hx Sleep Apnea: No (ELODIA PRE SCREEN LOW RISK) - Cardiovascular System Hx Hypertension: No - Central Nervous System Hx Neuromuscular Disorder: Yes (lupus, fibromyalgea) CVA: Yes (10 YRS AGO,NO DEFICITS, NEVER ON BLOOD THINNERS) Hx Back Pain: Yes (CHRONIC) - Endocrine 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) - Hematic Hx Anemia: Yes - Other Systems Hx Substance Use: Yes (on high doses of prescription meds) Hx Cancer: No
--- NOTE | 2017-10-31 12:27 | Anesthesia Day of Surgery ---
Anesthesia Day of Surgery - Day of Surgery Patient Examined: Yes Patient H&P Reviewed: Yes Patient is NPO: Yes
[2017-10-31] MEDS ORDERED: PROVENTIL IH NR (12:30)
[2017-10-31] MEDS ORDERED: DIPRIVAN 10 MG/ML IV ONE (13:18)
[2017-10-31] MEDS ORDERED: MARCAINE 0.5% INFILTRATI ONE (13:18)
[2017-10-31] MEDS ORDERED: XYLOCAINE MPF 2% ONE (13:18)
[2017-10-31] MEDS ORDERED: ePHEDrine SULFATE ONE (13:47)
[2017-10-31] MEDS ORDERED: DECADRON ONE (13:52)
[2017-10-31] MEDS ORDERED: NACL 0.9% IR ONE (14:02)
--- NOTE | 2017-10-31 14:36 | Procedure Note ---
Date of procedure: 10/31/17 Pre-op diagnosis: hardware irritation left distal thigh status post IM nail left femur Post-op diagnosis: same Procedure: Removal of distal screw left femur Procedure The patient was brought to the OR and placed on the OR table in supine position following induction with Anesthesia the patient's left lower extremity was prepped and draped in the usual sterile ma. A timeout procedure was done of ultrasound to identify the patient and the correct operative site . Using C-arm fluoroscopy the area overlying the distal screw was identified next a stab wound was made using a # 11 blade this was taken down sharply through skin and subcutaneous the screw was then removed without complications. All pulse removal x-ray was done and showed no fracture or other abnormalities following this the wound was then irrigated and was closed in a standard routine fashion she tolerated the procedure there were no complications she was then taken to postanesthesia recovery in stable Anesthesia: MAC Surgeon: YOSELIN PALOMINO (Jailene Santiago, 1st assistant men's soccer coach) Estimated blood loss: minimal Pathology: none Condition: stable Disposition: PACU
[2017-10-31] MEDS: DILAUDID IV PRN ×2 (14:54→15:04)
[2017-10-31 15:58] VITALS: BP 135/64
--- NOTE | 2017-11-01 07:20 | XRay Report ---
Left knee single view: History: Painful hardware/removal screw left knee. Findings: No articular abnormality. No fracture or dislocation. The metallic screw at the distal femur has been removed. Impression: Findings as detailed above.
== END 2017-10-31 16:10 | disposition home or self-care (01) ==
LOC: OR 10:38
PROVIDERS: ATTEND Orthopaedic Surgery
DX: T84.89XA Other specified complication of internal orthopedic prosthetic devices, implants and grafts, initial encounter (principal); J44.9 Chronic obstructive pulmonary disease, unspecified; M32.9 Systemic lupus erythematosus, unspecified; N18.9 Chronic kidney disease, unspecified; F17.210 Nicotine dependence, cigarettes, uncomplicated; Z90.710 Acquired absence of both cervix and uterus; Z90.49 Acquired absence of other specified parts of digestive tract; Z88.2 Allergy status to sulfonamides; Z86.73 Personal history of transient ischemic attack (TIA), and cerebral infarction without residual deficits; Z88.8 Allergy status to other drugs, medicaments and biological substances; Y83.1 Surgical operation with implant of artificial internal device as the cause of abnormal reaction of the patient, or of later complication, without mention of misadventure at the time of the procedure
CPT/HCPCS: 20680; 36415; 73560; 84132; J0690; J1100; J1170; J2250; J2704; J7120

== ENCOUNTER 2018-10-22 15:00 | Inpatient (IN) | payer MEDICARE ==
[2018-10-22 16:03] LABS: Basophils % (Auto) 0.1 % (0.0-1.8); Hematocrit 50.3 % (30.3-42.9); Hemoglobin 17.4 gm/dl (10.1-14.3); Lymphocytes # (Auto) 1.4 K/mm3 (1.2-5.4); Lymphocytes % (Auto) 12.6 % (13.4-35.0); Mean Corpuscular HGB Conc 35 % (30-34); Mean Corpuscular Volume 94 fl (79-97); Monocytes # (Auto) 1.7 K/mm3 (0.0-0.8); Monocytes % (Auto) 14.8 % (0.0-7.3); Platelet Count 416 K/mm3 (140-440); Red Blood Count 5.35 M/mm3 (3.65-5.03); Red Cell Distribution Width 14.1 % (13.2-15.2)
[2018-10-22] MEDS ORDERED: ZOFRAN IV ONE ×3 (16:06→19:00)
[2018-10-22] MEDS ORDERED: NACL 0.9% 1000 ML 1,000 ML IV ONE ×2 (16:06→18:28)
[2018-10-22 16:46] LABS: Albumin 3.4 g/dL (3.9-5); Calcium 9.5 mg/dL (8.4-10.2)
--- NOTE | 2018-10-22 16:48 | Emergency Department Report ---
ED General Adult HPI - General Chief complaint: Nausea/Vomiting/Diarrhea Stated complaint: DEHYDRATION Time Seen by Provider: 10/22/18 15:44 Source: patient Mode of arrival: Stretcher Limitations: No Limitations - History of Present Illness Initial comments: Neck: The patient presents to the emergency department with a chief complaint of nausea, vomiting, diarrhea 3 days. Patient denies any abdominal pain or chest pain. Patient states that she went to urgent care for evaluation and they told her to come to the emergency department. -: Sudden (any) Severity scale (0 -10): 0 Improves with: none Worsens with: none Associated Symptoms: denies other symptoms Treatments Prior to Arrival: none - Related Data Home Medications Medication Instructions Recorded Confirmed Last Taken Methadone 10 mg PO QHS 12/05/16 10/31/17 10/30/17 Ondansetron 4 mg PO Q6HR PRN 12/05/16 10/31/17 10/29/17 Propranolol HCl [Propranolol HCl 60 mg PO DAILY 12/05/16 10/31/17 10/30/17 22:00 ER] QUEtiapine [SEROquel] 300 mg PO DAILY 12/05/16 10/31/17 10/30/17 Lasix TAB 40 mg PO PRN PRN 12/07/16 10/31/17 10/24/17 Percocet 10/325 mg 1 tab PO PRN PRN 12/07/16 10/31/17 10/30/17 Albuterol Sulfate [Albuterol 0.63% 0.63 mg IH TID PRN 10/22/17 10/31/17 10/29/17 NEBS] Allergies Allergy/AdvReac Type Severity Reaction Status Date / Time Sulfa (Sulfonamide Allergy Intermediate Rash Verified 10/22/18 16:30 Antibiotics) metoclopramide HCl Allergy Dizziness Verified 10/22/18 16:30 [From Reglan] prochlorperazine Allergy NECK Verified 10/22/18 16:30 [From Compazine] STIFFNESS ED Review of Systems ROS: Stated complaint: DEHYDRATION Other details as noted in HPI Comment: All other systems reviewed and negative Constitutional: denies: chills, fever Eyes: denies: eye pain, eye discharge, vision change ENT: denies: ear pain, throat pain Respiratory: denies: cough, shortness of breath, wheezing Cardiovascular: denies: chest pain, palpitations Endocrine: no symptoms reported Gastrointestinal: abdominal pain, nausea, diarrhea Genitourinary: denies: urgency, dysuria, discharge Musculoskeletal: denies: back pain, joint swelling, arthralgia Skin: denies: rash, lesions Neurological: denies: headache, weakness, paresthesias Psychiatric: denies: anxiety, depression Hematological/Lymphatic: denies: easy bleeding, easy bruising ED Past Medical Hx - Past Medical History Previous Medical History?: Yes Hx Hypertension: No 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) Hx Headaches / Migraines: Yes (MAGRAINES- ON DAILY MEDS FOR PREVENTION) Hx Asthma: Yes Hx COPD: Yes (NEB PRN) Hx HIV: No Additional medical history: fibromyalgia lupus - Surgical History Past Surgical History?: Yes Hx Cholecystectomy: Yes Additional Surgical History: colon surgery total hyst - Social History Smoking Status: Never Smoker Substance Use Type: None - Medications Home Medications: Home Medications Medication Instructions Recorded Confirmed Last Taken Type Methadone 10 mg PO QHS 12/05/16 10/31/17 10/30/17 History Ondansetron 4 mg PO Q6HR PRN 12/05/16 10/31/17 10/29/17 History Propranolol HCl [Propranolol HCl 60 mg PO DAILY 12/05/16 10/31/17 10/30/17 22:00 History ER] QUEtiapine [SEROquel] 300 mg PO DAILY 12/05/16 10/31/17 10/30/17 History Lasix TAB 40 mg PO PRN PRN 12/07/16 10/31/17 10/24/17 History Percocet 10/325 mg 1 tab PO PRN PRN 12/07/16 10/31/17 10/30/17 History Albuterol Sulfate [Albuterol 0.63% 0.63 mg IH TID PRN 10/22/17 10/31/17 10/29/17 History NEBS] ED Physical Exam - General Limitations: No Limitations General appearance: alert, in no apparent distress - Head Head exam: Present: atraumatic, normocephalic - Eye Eye exam: Present: normal appearance, PERRL, EOMI - ENT ENT exam: Present: mucous membranes dry - Neck Neck exam: Present: normal inspection - Respiratory Respiratory exam: Present: normal lung sounds bilaterally. Absent: respiratory distress - Cardiovascular Cardiovascular Exam: Present: regular rate, normal rhythm. Absent: systolic murmur, diastolic murmur, rubs, gallop - GI/Abdominal GI/Abdominal exam: Present: soft, normal bowel sounds. Absent: distended, tenderness - Extremities Exam Extremities exam: Present: normal inspection - Back Exam Back exam: Present: normal inspection - Neurological Exam Neurological exam: Present: alert, oriented X3, CN II-XII intact. Absent: motor sensory deficit - Psychiatric Psychiatric exam: Present: normal affect, normal mood - Skin Skin exam: Present: warm, dry, intact, normal color. Absent: rash ED Course Vital Signs 10/22/18 10/22/18 10/22/18 15:21 15:24 15:30 Temperature 98.0 F Pulse Rate 87 Respiratory 16 Rate Blood Pressure Blood Pressure 111/50 [Left] O2 Sat by Pulse 95 98 96 Oximetry 10/22/18 10/22/18 10/22/18 15:46 16:00 16:15 Temperature Pulse Rate Respiratory Rate Blood Pressure 105/70 129/72 Blood Pressure [Left] O2 Sat by Pulse 94 95 96 Oximetry 10/22/18 10/22/18 10/22/18 16:30 16:45 17:00 Temperature Pulse Rate Respiratory Rate Blood Pressure 131/68 111/59 122/53 Blood Pressure [Left] O2 Sat by Pulse 96 96 96 Oximetry 10/22/18 10/22/18 10/22/18 17:15 17:30 17:45 Temperature Pulse Rate Respiratory Rate Blood Pressure 120/55 118/56 122/52 Blood Pressure [Left] O2 Sat by Pulse 96 96 95 Oximetry 10/22/18 10/22/18 18:00 18:45 Temperature Pulse Rate Respiratory Rate Blood Pressure 120/60 Blood Pressure [Left] O2 Sat by Pulse 95 92 Oximetry ED Medical Decision Making - Lab Data Result diagrams: 10/22/18 15:31 10/22/18 15:54 Lab Results 10/22/18 10/22/18 10/22/18 Range/Units 15:31 15:54 15:54 WBC 11.5 H (4.5-11.0) K/mm3 RBC 5.35 H (3.65-5.03) M/mm3 Hgb 17.4 H (10.1-14.3) gm/dl Hct 50.3 H (30.3-42.9) % MCV 94 (79-97) fl MCH 33 H (28-32) pg MCHC 35 H (30-34) % RDW 14.1 (13.2-15.2) % Plt Count 416 (140-440) K/mm3 Lymph % (Auto) 12.6 L (13.4-35.0) % [place] % (Auto) 14.8 H (0.0-7.3) % Eos % (Auto) 0.0 (0.0-4.3) % Baso % (Auto) 0.1 (0.0-1.8) % Lymph # 1.4 (1.2-5.4) K/mm3 [place] # 1.7 H (0.0-0.8) K/mm3 Eos # 0.0 (0.0-0.4) K/mm3 Baso # 0.0 (0.0-0.1) K/mm3 Seg Neutrophils % 72.5 H (40.0-70.0) % Seg Neutrophils # 8.3 H (1.8-7.7) K/mm3 Sodium 134 L (137-145) mmol/L Potassium 4.8 (3.6-5.0) mmol/L Chloride 88.1 L (98-107) mmol/L Carbon Dioxide 23 (22-30) mmol/L Anion Gap 28 mmol/L BUN 51 H (7-17) mg/dL Creatinine 2.1 H (0.7-1.2) mg/dL Estimated GFR 23 ml/min BUN/Creatinine Ratio 24 % Glucose 166 H (65-100) mg/dL Calcium 9.5 (8.4-10.2) mg/dL Total Bilirubin 0.40 (0.1-1.2) mg/dL AST 25 (5-40) units/L ALT 22 (7-56) units/L Alkaline Phosphatase 129 (35-129) units/L Total Protein 7.6 (6.3-8.2) g/dL Albumin 3.4 L (3.9-5) g/dL Albumin/Globulin Ratio 0.8 % Lipase 10 L (13-60) units/L - Medical Decision Making The patient has had 3 rounds of Zofran and IM Haldol with minor improvement of her emesis Urinalysis will be followed by the admitting team Critical Care Time: Yes Critical care time in (mins) excluding proc time.: 35 Critical care attestation.: If time is entered above; I have spent that time in minutes in the direct care of this critically ill patient, excluding procedure time. ED Disposition Clinical Impression: Acute renal failure, Nausea & vomiting, Diarrhea, Intractable nausea and vomiting Disposition: OP ADMIT IP TO THIS HOSP Is pt being admited?: Yes Does the pt Need Aspirin: No Condition: Fair
[2018-10-22] MEDS ORDERED: HALDOL IM ONE (19:02)
[2018-10-22 19:33] LABS: Bilirubin,Urine NEG (Negative); Blood,Urine NEG (Negative); Color,Urine Amber (Yellow); Urobilinogen,Urine < 2.0 mg/dL (<2.0)
[2018-10-22] MEDS ORDERED: PHENERGAN PR PRN (20:10)
[2018-10-22] MEDS ORDERED: PERCOCET 5/325 PO PRN (20:10)
[2018-10-22] MEDS ORDERED: NACL 0.9% 1000 ML 1,000 ML IV SCH (21:00)
--- NOTE | 2018-10-22 21:17 | History and Physical Report ---
History of Present Illness Date of examination: 10/22/18 Date of admission: 10/22/18 20:10 Chief complaint: Intractable Nausea, vomiting, diarrhea History of present illness: 73-year-old female with history of hypertension, lupus, fibromyalgia, COPD, opioid dependence (follows Dr. Felix Muñiz at pain clinic) who presents to [facility] ED with complaints of intractable nausea, vomiting, diarrhea for the past 3 days. Patient states that she is unable to keep any food down and is having multiple watery stools per day. She decided to go to the urgent care clinic for further evaluation. The Urgentcare clinic referred patient to ED. She states that she had colon surgery in the past. Also patient states she has 1 kidney. Patient's is at bedside and has assisted in the history taking. Denies fever, chills, cough, hemoptysis, hematemesis, hematochezia, abdominal pain, recent sick exposure. Past History Past Medical History: COPD, hypertension, other (Lupus, fibromyalgia, history of opioid dependence) Past Surgical History: cholecystectomy, hysterectomy, total hip replacement (left hip fracture 2016, irritated hardware repair 10/2017, colon surgery, renal surgery) Social history: (lives with ), smoking (former smoker) Family history: no significant family history Medications and Allergies Allergies Allergy/AdvReac Type Severity Reaction Status Date / Time Sulfa (Sulfonamide Allergy Intermediate Rash Verified 10/22/18 16:30 Antibiotics) metoclopramide HCl Allergy Dizziness Verified 10/22/18 16:30 [From Reglan] prochlorperazine Allergy NECK Verified 10/22/18 16:30 [From Compazine] STIFFNESS Home Medications Medication Instructions Recorded Confirmed Last Taken Type Ondansetron 4 mg PO Q6HR PRN 12/05/16 10/22/18 10/29/17 History Propranolol HCl [Propranolol HCl 60 mg PO DAILY 12/05/16 10/22/18 10/30/17 22:00 History ER] QUEtiapine [SEROquel] 300 mg PO DAILY 12/05/16 10/22/18 10/30/17 History Lasix TAB 40 mg PO PRN PRN 12/07/16 10/22/18 10/24/17 History Percocet 10/325 mg 1 tab PO PRN PRN 12/07/16 10/22/18 10/30/17 History Albuterol Sulfate [Albuterol 0.63% 0.63 mg IH TID PRN 10/22/17 10/22/18 10/29/17 History NEBS] Active Meds: Active Medications Acetaminophen (Tylenol) 650 mg PO Q4H PRN PRN Reason: Pain MILD(1-3)/Fever >100.5/PORTER Albuterol (Proventil) 2.5 mg IH Q4HRT PRN PRN Reason: Shortness Of Breath Albuterol/Ipratropium (Duoneb *Not For Prn Use*) 1 ampul IH Q4HRT RICK Budesonide (Pulmicort) 0.5 mg IH Q12HRT [facility] Sodium Chloride (Nacl 0.9% 1000 Ml) 1,000 mls @ 100 mls/hr IV DIRECT RICK Metronidazole (Flagyl 500 Mg/100 Ml) 500 mg in 100 mls @ 100 mls/hr IV Q8HR RICK; Protocol Piperacillin Sod/Tazobactam Sod (Zosyn/Ns 4.5gm/100ml) 4.5 gm in 100 mls @ 200 mls/hr IV Q8HR RICK; Protocol Morphine Sulfate (Morphine) 2 mg IV Q4H PRN PRN Reason: Pain, Moderate (4-6) Stop: 10/23/18 23:59 Ondansetron HCl (Zofran) 4 mg IV Q8H PRN PRN Reason: Nausea And Vomiting Oxycodone/Acetaminophen (Percocet 5/325) 1 tab PO Q6H PRN PRN Reason: Pain, Moderate (4-6) Promethazine HCl (Phenergan) 25 mg LA Q6H PRN PRN Reason: Nausea And Vomiting Propranolol HCl (Inderal La) 60 mg PO DAILY [facility] Quetiapine Fumarate (Seroquel) 300 mg PO DAILY [facility] Sodium Chloride (Sodium Chloride Flush Syringe 10 Ml) 10 ml IV BID [facility] Sodium Chloride (Sodium Chloride Flush Syringe 10 Ml) 10 ml IV PRN PRN PRN Reason: LINE FLUSH Review of Systems All systems: negative (reviewed and no additional remarkable complaints except as noted below) Constitutional: poor appetite Respiratory: cough, shortness of breath, dyspnea on exertion Gastrointestinal: nausea, vomiting, diarrhea Exam - Physical Exam Narrative exam: Physical exam General appearance: Present: Mild distress, ill appearing, older adult female, alert and oriented 3 - EENT Eyes: Present: PERRL, EOM intact ENT: hearing intact, no dentition - Neck Neck: Present: supple, normal ROM - Respiratory Respiratory effort: labored on supplemental oxygen Respiratory: bilateral: diminished (bases) - Cardiovascular Heart rate: 115 (bpm) Rhythm: Tachycardic Heart Sounds: Present: S1 & S2. Absent: rub, click - Extremities Extremities: no ischemia, pulses intact, - Peripheral Assessment Peripheral Pulses: within normal limits - Abdominal General gastrointestinal: soft, non-tender, hyperactive - Integumentary Integumentary: Present: warm, dry - Musculoskeletal Musculoskeletal: generalized weakness - Psychiatric Psychiatric: cooperative - Constitutional Vitals: Temp Pulse Resp BP Pulse Ox 98.3 F 92 H 19 108/63 95 10/22/18 19:15 10/22/18 19:15 10/22/18 19:15 10/22/18 19:15 10/22/18 19:15 Results - Labs CBC & Chem 7: 10/22/18 15:31 10/22/18 15:54 Labs: Laboratory Last Values WBC 11.5 K/mm3 (4.5-11.0) H 10/22/18 15:31 RBC 5.35 M/mm3 (3.65-5.03) H 10/22/18 15:31 Hgb 17.4 gm/dl (10.1-14.3) H 10/22/18 15:31 Hct 50.3 % (30.3-42.9) H 10/22/18 15:31 MCV 94 fl (79-97) 10/22/18 15:31 MCH 33 pg (28-32) H 10/22/18 15:31 MCHC 35 % (30-34) H 10/22/18 15:31 RDW 14.1 % (13.2-15.2) 10/22/18 15:31 Plt Count 416 K/mm3 (140-440) 10/22/18 15:31 Lymph % (Auto) 12.6 % (13.4-35.0) L 10/22/18 15:31 [place] % (Auto) 14.8 % (0.0-7.3) H 10/22/18 15:31 Eos % (Auto) 0.0 % (0.0-4.3) 10/22/18 15:31 Baso % (Auto) 0.1 % (0.0-1.8) 10/22/18 15:31 Lymph # 1.4 K/mm3 (1.2-5.4) 10/22/18 15:31 [place] # 1.7 K/mm3 (0.0-0.8) H 10/22/18 15:31 Eos # 0.0 K/mm3 (0.0-0.4) 10/22/18 15:31 Baso # 0.0 K/mm3 (0.0-0.1) 10/22/18 15:31 Seg Neutrophils % 72.5 % (40.0-70.0) H 10/22/18 15:31 Seg Neutrophils # 8.3 K/mm3 (1.8-7.7) H 10/22/18 15:31 Sodium 134 mmol/L (137-145) L 10/22/18 15:54 Potassium 4.8 mmol/L (3.6-5.0) 10/22/18 15:54 Chloride 88.1 mmol/L (98-107) L 10/22/18 15:54 Carbon Dioxide 23 mmol/L (22-30) 10/22/18 15:54 28 mmol/L 10/22/18 15:54 BUN 51 mg/dL (7-17) H 10/22/18 15:54 2.1 mg/dL (0.7-1.2) H 10/22/18 15:54 Estimated GFR 23 ml/min 10/22/18 15:54 24 % 10/22/18 15:54 Glucose 166 mg/dL (65-100) H 10/22/18 15:54 Calcium 9.5 mg/dL (8.4-10.2) 10/22/18 15:54 0.40 mg/dL (0.1-1.2) 10/22/18 15:54 AST 25 units/L (5-40) 10/22/18 15:54 ALT 22 units/L (7-56) 10/22/18 15:54 129 units/L (35-129) 10/22/18 15:54 7.6 g/dL (6.3-8.2) 10/22/18 15:54 3.4 g/dL (3.9-5) L 10/22/18 15:54 0.8 % 10/22/18 15:54 10 units/L (13-60) L 10/22/18 15:54 Dul[place] (Yellow) 10/22/18 19:10 Clear (Clear) 10/22/18 19:10 5.0 (5.0-7.0) 10/22/18 19:10 Ur Specific [place] 1.018 (1.003-1.030) 10/22/18 19:10 30 mg/dl mg/dL (Negative) 10/22/18 19:10 Neg mg/dL (Negative) 10/22/18 19:10 Tr mg/dL (Negative) 10/22/18 19:10 Neg (Negative) 10/22/18 19:10 Neg (Negative) 10/22/18 19:10 Neg (Negative) 10/22/18 19:10 < 2.0 mg/dL (<2.0) 10/22/18 19:10 Ur Leukocyte Esterase Neg (Negative) 10/22/18 19:10 1.0 /HPF (0.0-6.0) 10/22/18 19:10 3.0 /HPF (0.0-6.0) 10/22/18 19:10 Short CBC 10/22/18 Range/Units 15:31 WBC 11.5 H (4.5-11.0) K/mm3 Hgb 17.4 H (10.1-14.3) gm/dl Hct 50.3 H (30.3-42.9) % Plt Count 416 (140-440) K/mm3 BMP 10/22/18 15:54 Sodium 134 L Potassium 4.8 Chloride 88.1 L Carbon Dioxide 23 BUN 51 H Creatinine 2.1 H Glucose 166 H Calcium 9.5 Liver Function 10/22/18 Range/Units 15:54 Total Bilirubin 0.40 (0.1-1.2) mg/dL AST 25 (5-40) units/L ALT 22 (7-56) units/L Alkaline Phosphatase 129 (35-129) units/L Albumin 3.4 L (3.9-5) g/dL Urine 10/22/18 Range/Units 19:10 Urine Color [place] (Yellow) Urine pH 5.0 (5.0-7.0) Ur Specific [place] 1.018 (1.003-1.030) Urine Protein 30 mg/dl (Negative) mg/dL Urine Glucose (UA) Neg (Negative) mg/dL Assessment and Plan Assessment and plan: 73-year-old female with history of hypertension, lupus, fibromyalgia, COPD, opioid dependence (follows Dr. Felix Muñiz at pain clinic) who presents to [facility] ED with complaints of intractable nausea, vomiting, diarrhea for the past 3 days. On initial presentation to the ED she was found to be tachycardiac with heart rate 113 BPM, leukocytosis with WBC 11.5, elevated BUN/Cr 51/2.1. She feels IM Haldol and was given Zofran 3 to help with n/v. Patient has history of COPD and at baseline does not require home oxygen use. Currently she is on 2 L supplemental oxygen. She'll be admitted to [facility] unit with remote telemetry monitoring. GI and nephrology consult. SIRS Suspicion of colitis Suspicion of gastritis Acute exacerbation COPD Acute hypoxic respiratory failure Hypertension Lupus Fibromyalgia History of opioid dependence Plan: Continue supportive care Remote telemetry monitoring Start Zosyn and Flagyl Monitor BP Inderal 60 mg daily IV hydralazine when necessary Continue supplemental oxygen and wean as tolerated Scheduled Duo Nebs and Pulmicort; albuterol when necessary Mucinex Monitor CBC Monitor BUN/Cr IVF Cultures pending Pain management GI consult pending Nephrology consult pending DVT PPX on heparin Advance Directives: No VTE prophylaxis?: Chemical Plan of care discussed with patient/family: Yes
[2018-10-22] MEDS ORDERED: PHENERGAN PR ONE (21:18)
[2018-10-22] MEDS ORDERED: ZOSYN/NS 4.5GM/100ML 4.5 GM/100 ML VIAL IV SCH (22:00)
[2018-10-22] MEDS: MUCINEX ER PO SCH (23:35)
[2018-10-22] MEDS: HEPARIN SUB-Q SCH (23:35)
[2018-10-22] MEDS: FLAGYL 500 MG/100 ML 500 MG/100 ML BAG IV SCH (23:36)
[2018-10-22] MEDS: SODIUM CHLORIDE FLUSH SYRINGE 10 ML IV SCH (23:37)
[2018-10-23] MEDS: DUONEB *Not for PRN Use IH SCH ×5 (00:41→21:00)
[2018-10-23] MEDS: ZOSYN/NS 2.25 GM/50ML 2.25 GM/50 ML BAG IV SCH ×4 (01:28→17:25)
[2018-10-23 05:28] LABS: Basophils % (Auto) 0.1 % (0.0-1.8); Eosinophils % (Auto) 0.1 % (0.0-4.3); Hematocrit 41.1 % (30.3-42.9); Hemoglobin 13.9 gm/dl (10.1-14.3); Lymphocytes # (Auto) 0.7 K/mm3 (1.2-5.4); Lymphocytes % (Auto) 10.2 % (13.4-35.0); Mean Corpuscular HGB Conc 34 % (30-34); Mean Corpuscular Volume 96 fl (79-97); Monocytes % (Auto) 14.7 % (0.0-7.3); Platelet Count 285 K/mm3 (140-440); Red Cell Distribution Width 13.4 % (13.2-15.2)
[2018-10-23] MEDS: FLAGYL 500 MG/100 ML 500 MG/100 ML BAG IV SCH ×3 (05:42→22:32)
[2018-10-23 06:10] LABS: Calcium 8.1 mg/dL (8.4-10.2)
[2018-10-23] MEDS: PULMICORT IH SCH ×2 (08:28→21:00)
[2018-10-23] MEDS: SODIUM CHLORIDE FLUSH SYRINGE 10 ML IV PRN (08:54)
[2018-10-23] MEDS: MORPHINE IV PRN ×2 (08:54→22:44)
[2018-10-23] MEDS: ZOFRAN IV PRN ×2 (08:55→20:55)
--- NOTE | 2018-10-23 09:54 | Consultation ---
History of Present Illness - Reason for Consult acute renal failure - History of Present Illness Pleasant 73 y/o cac[place] female with h/o SLE, with involvement of colon requiring partial resection per patient, and h/o CKD, with one kidney being atrophic (patient unsure which one is atrophic), COPD, presented to the ED secondary to 3 days of nausea, vomiting, diarrhea. In this setting patient suffered an ADWOA, for which nephrology is being consulted at this time. Patient states that she used to see a intranet developer more than 10 years ago before he retired, and since then has been following with her PCP. She had a biopsy done, which per patient did not show active lupus involvement, but did show evidence of chronicity. She was told that she had CKD III, and states that overall her renal function has been stable. She denies being on any immunosuppressants but states that she has been on short courses of prednisone for acute flares. Past History Past Medical History: COPD, hypertension, other (Lupus, fibromyalgia, history of opioid dependence) Past Surgical History: cholecystectomy, hysterectomy, total hip replacement (left hip fracture 2016, irritated hardware repair 10/2017, colon surgery, renal surgery) Social history: (lives with ), smoking (former smoker) Family history: no significant family history Medications and Allergies Allergies Allergy/AdvReac Type Severity Reaction Status Date / Time Sulfa (Sulfonamide Allergy Intermediate Rash Verified 10/22/18 16:30 Antibiotics) metoclopramide HCl Allergy Dizziness Verified 10/22/18 16:30 [From Reglan] prochlorperazine Allergy NECK Verified 10/22/18 16:30 [From Compazine] STIFFNESS Home Medications Medication Instructions Recorded Confirmed Last Taken Type Ondansetron 4 mg PO Q6HR PRN 12/05/16 10/22/18 10/29/17 History Propranolol HCl [Propranolol HCl 60 mg PO DAILY 12/05/16 10/22/18 10/30/17 22:00 History ER] QUEtiapine [SEROquel] 300 mg PO DAILY 12/05/16 10/22/18 10/30/17 History Lasix TAB 40 mg PO PRN PRN 12/07/16 10/22/18 10/24/17 History Percocet 10/325 mg 1 tab PO PRN PRN 07/07/17 05/22/19 05/30/18 History Albuterol Sulfate [Albuterol 0.63% 0.63 mg IH TID PRN 10/22/17 10/22/18 10/29/17 History NEBS] Active Meds: Active Medications Acetaminophen (Tylenol) 650 mg PO Q4H PRN PRN Reason: Pain MILD(1-3)/Fever >100.5/PORTER Albuterol (Proventil) 2.5 mg IH Q4HRT PRN PRN Reason: Shortness Of Breath Albuterol/Ipratropium (Duoneb *Not For Prn Use*) 1 ampul IH Q4HRT [facility] Last Admin: 10/23/18 08:27 Dose: 1 ampul Documented by: Budesonide (Pulmicort) 0.5 mg IH Q12HRT [facility] Last Admin: 10/23/18 08:28 Dose: 0.5 mg Documented by: Guaifenesin (Mucinex Er) 600 mg PO BID [facility] Last Admin: 10/22/18 23:35 Dose: 600 mg Documented by: Heparin Sodium (Porcine) (Heparin) 5,000 unit SUB-Q Q12HR [facility] Last Admin: 10/22/18 23:35 Dose: 5,000 unit Documented by: Hydralazine HCl (Apresoline) 10 mg IV Q4HR PRN PRN Reason: Blood Pressure Sodium Chloride (Nacl 0.9% 1000 Ml) 1,000 mls @ 100 mls/hr IV DIRECT [facility] Last Admin: 10/22/18 23:36 Dose: 100 mls/hr Documented by: Metronidazole (Flagyl 500 Mg/100 Ml) 500 mg in 100 mls @ 100 mls/hr IV Q8HR [facility]; Protocol Last Admin: 10/23/18 05:42 Dose: 100 mls/hr Documented by: Piperacillin Sod/Tazobactam Sod (Zosyn/Ns 2.25 Gm/50ml) 2.25 gm in 50 mls @ 100 mls/hr IV Q6HR [facility] Last Admin: 10/23/18 05:42 Dose: 100 mls/hr Documented by: Morphine Sulfate (Morphine) 2 mg IV Q4H PRN PRN Reason: Pain, Moderate (4-6) Stop: 10/23/18 23:59 Last Admin: 10/23/18 08:54 Dose: 2 mg Documented by: Ondansetron HCl (Zofran) 4 mg IV Q8H PRN PRN Reason: Nausea And Vomiting Last Admin: 10/23/18 08:55 Dose: 4 mg Documented by: Oxycodone/Acetaminophen (Percocet 5/325) 1 tab PO Q6H PRN PRN Reason: Pain, Moderate (4-6) Promethazine HCl (Phenergan) 25 mg DE Q6H PRN PRN Reason: Nausea And Vomiting Last Admin: 10/22/18 21:21 Dose: 25 mg Documented by: Propranolol HCl (Inderal La) 60 mg PO DAILY [facility] Quetiapine Fumarate (Seroquel) 200 mg PO QHS [facility] Last Admin: 10/22/18 23:35 Dose: 200 mg Documented by: Quetiapine Fumarate (Seroquel) 100 mg PO QHS [facility] Last Admin: 10/22/18 23:40 Dose: 100 mg Documented by: Sodium Chloride (Sodium Chloride Flush Syringe 10 Ml) 10 ml IV BID [facility] Last Admin: 10/22/18 23:37 Dose: 10 ml Documented by: Sodium Chloride (Sodium Chloride Flush Syringe 10 Ml) 10 ml IV PRN PRN PRN Reason: LINE FLUSH Last Admin: 10/23/18 08:54 Dose: 10 ml Documented by: Review of Systems All systems: negative Constitutional: fatigue, weakness Gastrointestinal: nausea, vomiting, diarrhea Exam - Vital Signs Vital signs: Vital Signs Pulse Ox 95 10/22/18 15:21 - General Appearance General appearance: well-developed, well-nourished, appears stated age EENT: ATNC, PERRL Neck: Present: neck supple, trachea midline Respiratory: Clear to Ascultation Heart: regular, normal heart rate Gastrointestinal: Present: normal, normoactive bowel sounds Integumentary: no rash, warm and dry Neurologic: no focal deficit, no asterixis, alert and oriented x3 Psychiatric: mood/affect appropriate, cooperative Results - Lab Results 10/23/18 04:32 10/23/18 04:32 Most recent lab results Calcium 8.1 mg/dL (8.4-10.2) L 10/23/18 04:32 Assessment and Plan - Patient Problems (1) Acute renal failure Current Visit: Yes Status: Acute Plan to address problem: Pre-renal secondary to nausea/vomiting, diarrhea and poor PO intake. Agree with current regimen, supportive care, IVF. Avoid nephrotoxins, maintain MAP >65mmHg. Will obtain renal US, urine electrolytes for further evaluation. (2) Hypokalemia Current Visit: Yes Status: Acute Plan to address problem: Replete per protocol, likely secondary to underlying GI losses. (3) Diarrhea Current Visit: Yes Status: Acute Plan to address problem: Symptoms are showing improvement. Stool studies pending, placed on flagyl. Management per primary team. (4) Intractable nausea and vomiting Current Visit: Yes Status: Acute Plan to address problem: PRN antiemetics. Patient is currently NPO at this time. Will continue to monitor.
--- NOTE | 2018-10-23 10:58 | Progress Note ---
Assessment and Plan Assessment and plan: 73-year-old female with history of hypertension, lupus, fibromyalgia, COPD, opioid dependence (follows Dr. Felix Muñiz at pain clinic) who presents to [facility] ED with complaints of intractable nausea, vomiting, diarrhea for the past 3 days. On initial presentation to the ED she was found to be tachycardiac with heart rate 113 BPM, leukocytosis with WBC 11.5, elevated BUN/Cr 51/2.1. She feels IM Haldol and was given Zofran 3 to help with n/v. Patient has history of COPD and at baseline does not require home oxygen use. Currently she is on 2 L supplemental oxygen. She'll be admitted to [facility] unit with remote telemetry monitoring. GI and nephrology consult. SIRS Suspicion of colitis Suspicion of gastritis Acute exacerbation COPD Acute hypoxic respiratory failure Hypertension Lupus Fibromyalgia History of opioid dependence ADWOA due to vasomotor nephropathy Plan: Continue supportive care Remote telemetry monitoring Continue Zosyn and Flagyl Monitor BP Inderal 60 mg daily IV hydralazine when necessary Continue supplemental oxygen and wean as tolerated Scheduled Duo Nebs and Pulmicort; albuterol when necessary Mucinex Monitor CBC Monitor BUN/Cr IVF Cultures pending Pain management GI consult pending Nephrology following DVT PPX on heparin discussed with patient and at bedside History Interval history: Abdominal pain nausea, Vomiting diarrhea Hospitalist Physical - Physical exam Narrative exam: Gen: Not in acute distress, lying in bed, HEENT: Normocephalic, atraumatic Neck: supple, no JVD Heart: S1 and S2 reg, no murmurs, rubs or gallop Lungs: Clear, no crackles, no wheeze Abd: soft, mild tender, no rebound tenderness, non distended, normal BS Ext: No edema, no clubbing, no cyanosis, Neuro: Awake,alert, oriented x 3, moves all ext, non focal Psych:Normal mood - Constitutional Vitals: Temp Pulse Resp BP Pulse Ox 98.6 F 92 H 18 101/44 95 10/23/18 07:32 10/23/18 08:29 10/23/18 08:29 10/23/18 07:32 10/23/18 09:22 Results - Labs CBC & Chem 7: 10/23/18 04:32 10/23/18 10:53 Labs: Laboratory Last Values WBC 7.0 K/mm3 (4.5-11.0) 10/23/18 04:32 RBC 4.30 M/mm3 (3.65-5.03) 10/23/18 04:32 Hgb 13.9 gm/dl (10.1-14.3) D 10/23/18 04:32 Hct 41.1 % (30.3-42.9) D 10/23/18 04:32 MCV 96 fl (79-97) 10/23/18 04:32 MCH 32 pg (28-32) 10/23/18 04:32 MCHC 34 % (30-34) 10/23/18 04:32 RDW 13.4 % (13.2-15.2) 10/23/18 04:32 Plt Count 285 K/mm3 (140-440) 10/23/18 04:32 Lymph % (Auto) 10.2 % (13.4-35.0) L 10/23/18 04:32 [place] % (Auto) 14.7 % (0.0-7.3) H 10/23/18 04:32 Eos % (Auto) 0.1 % (0.0-4.3) 10/23/18 04:32 Baso % (Auto) 0.1 % (0.0-1.8) 10/23/18 04:32 Lymph # 0.7 K/mm3 (1.2-5.4) L 10/23/18 04:32 [place] # 1.0 K/mm3 (0.0-0.8) H 10/23/18 04:32 Eos # 0.0 K/mm3 (0.0-0.4) 10/23/18 04:32 Baso # 0.0 K/mm3 (0.0-0.1) 10/23/18 04:32 Seg Neutrophils % 74.9 % (40.0-70.0) H 10/23/18 04:32 Seg Neutrophils # 5.2 K/mm3 (1.8-7.7) 10/23/18 04:32 Sodium 139 mmol/L (137-145) 10/23/18 04:32 Potassium 3.1 mmol/L (3.6-5.0) L D 10/23/18 04:32 Chloride 98.2 mmol/L (98-107) 10/23/18 04:32 Carbon Dioxide 22 mmol/L (22-30) 10/23/18 04:32 22 mmol/L 10/23/18 04:32 BUN 41 mg/dL (7-17) H 10/23/18 04:32 1.2 mg/dL (0.7-1.2) 10/23/18 04:32 Estimated GFR 44 ml/min 10/23/18 04:32 34 % 10/23/18 04:32 Glucose 111 mg/dL (65-100) H 10/23/18 04:32 Calcium 8.1 mg/dL (8.4-10.2) L 10/23/18 04:32 0.40 mg/dL (0.1-1.2) 10/22/18 15:54 AST 25 units/L (5-40) 10/22/18 15:54 ALT 22 units/L (7-56) 10/22/18 15:54 129 units/L (35-129) 10/22/18 15:54 7.6 g/dL (6.3-8.2) 10/22/18 15:54 3.4 g/dL (3.9-5) L 10/22/18 15:54 0.8 % 10/22/18 15:54 10 units/L (13-60) L 10/22/18 15:54 Dulce (Yellow) 10/22/18 19:10 Clear (Clear) 10/22/18 19:10 5.0 (5.0-7.0) 10/22/18 19:10 Ur Specific [place] 1.018 (1.003-1.030) 10/22/18 19:10 30 mg/dl mg/dL (Negative) 10/22/18 19:10 Neg mg/dL (Negative) 10/22/18 19:10 Tr mg/dL (Negative) 10/22/18 19:10 Neg (Negative) 10/22/18 19:10 Neg (Negative) 10/22/18 19:10 Neg (Negative) 10/22/18 19:10 < 2.0 mg/dL (<2.0) 10/22/18 19:10 Ur Leukocyte Esterase Neg (Negative) 10/22/18 19:10 1.0 /HPF (0.0-6.0) 10/22/18 19:10 3.0 /HPF (0.0-6.0) 10/22/18 19:10 Active Medications - Current Medications Current Medications: Generic Name Dose Route Start Last Admin Trade Name Freq PRN Reason Stop Dose Admin Acetaminophen 650 mg 10/22/18 20:10 Tylenol PO Q4H PRN Pain MILD(1-3)/Fever >100.5/PORTER Albuterol 2.5 mg 10/22/18 20:14 Proventil IH Q4HRT PRN Shortness Of Breath Albuterol/Ipratropium 1 ampul 10/23/18 14:00 Duoneb *Not For Prn Use* IH TIDRT RICK Budesonide 0.5 mg 10/23/18 08:00 10/23/18 08:28 Pulmicort IH 0.5 mg Q12HRT RICK Administration Guaifenesin 600 mg 10/22/18 22:00 10/22/18 23:35 Mucinex Er PO 600 mg BID RICK Administration Heparin Sodium (Porcine) 5,000 unit 10/22/18 22:00 10/22/18 23:35 Heparin SUB-Q 5,000 unit Q12HR RICK Administration Hydralazine HCl 10 mg 10/22/18 21:41 Apresoline IV Q4HR PRN Blood Pressure Metronidazole 500 mg in 100 mls @ 100 mls/hr 10/22/18 22:00 10/23/18 05:42 Flagyl 500 Mg/100 Ml IV 100 mls/hr Q8HR RICK Administration Protocol Piperacillin Sod/Tazobactam Sod 2.25 gm in 50 mls @ 100 mls/hr 10/23/18 00:00 10/23/18 05:42 Zosyn/Ns 2.25 Gm/50ml IV 100 mls/hr Q6HR RICK Administration Dextrose/Sodium Chloride 1,000 mls @ 125 mls/hr 10/23/18 11:00 D5ns IV DIRECT RICK Potassium Chloride 10 meq in 100 mls @ 100 mls/hr 10/23/18 11:00 Kcl 10meq/100ml IV 10/23/18 12:59 Q1H RICK Morphine Sulfate 2 mg 10/22/18 20:10 10/23/18 08:54 Morphine IV 10/23/18 23:59 2 mg Q4H PRN Administration Pain, Moderate (4-6) Ondansetron HCl 4 mg 10/22/18 20:10 10/23/18 08:55 Zofran IV 4 mg Q8H PRN Administration Nausea And Vomiting Oxycodone/Acetaminophen 1 tab 10/22/18 20:10 Percocet 5/325 PO Q6H PRN Pain, Moderate (4-6) Promethazine HCl 25 mg 10/22/18 20:10 10/22/18 21:21 Phenergan [place] 25 mg Q6H PRN Administration Nausea And Vomiting Propranolol HCl 60 mg 10/23/18 10:00 Inderal La PO DAILY RICK Quetiapine Fumarate 200 mg 10/22/18 23:00 10/22/18 23:35 Seroquel PO 200 mg QHS RICK Administration Quetiapine Fumarate 100 mg 10/22/18 23:00 10/22/18 23:40 Seroquel PO 100 mg QHS RICK Administration Sodium Chloride 10 ml 10/22/18 22:00 10/22/18 23:37 Sodium Chloride Flush Syringe 10 Ml IV 10 ml BID RICK Administration Sodium Chloride 10 ml 10/22/18 20:10 10/23/18 08:54 Sodium Chloride Flush Syringe 10 Ml IV 10 ml PRN PRN Administration LINE FLUSH
[2018-10-23 11:42] LABS: Calcium 8.1 mg/dL (8.4-10.2)
[2018-10-23] MEDS: HEPARIN SUB-Q SCH ×2 (11:45→22:32)
[2018-10-23] MEDS: MUCINEX ER PO SCH ×2 (11:46→22:33)
[2018-10-23] MEDS: INDERAL LA PO SCH (11:49)
[2018-10-23] MEDS: D5NS 1,000 ML IV SCH ×2 (11:52→22:28)
[2018-10-23] MEDS: KCL 10MEQ/100ML 10 MEQ/100 ML BAG IV SCH ×2 (12:38→13:26)
[2018-10-23] MEDS: SODIUM CHLORIDE FLUSH SYRINGE 10 ML IV SCH ×2 (17:25→22:33)
[2018-10-24] MEDS: ZOSYN/NS 2.25 GM/50ML 2.25 GM/50 ML BAG IV SCH ×2 (00:45→05:13)
[2018-10-24] MEDS: ZOFRAN IV PRN ×2 (05:12→18:32)
[2018-10-24] MEDS: FLAGYL 500 MG/100 ML 500 MG/100 ML BAG IV SCH ×3 (05:13→22:25)
--- NOTE | 2018-10-24 05:24 | Consultation ---
REFERRING PHYSICIAN: Norberto Lepe MD INDICATION: 1. Nausea, vomiting. 2. Diarrhea. HISTORY OF PRESENT ILLNESS: The patient is a 73-year-old female with history of lupus, fibromyalgia, COPD, opioid dependence. The patient presents with 3 days of intractable nausea, vomiting, and diarrhea. She reports she is unable to keep anything down. She reports some nonbloody loose stool. She reports no recent diet or medication changes. The patient is very thin and reports some mild weight loss. She denies any signs of bleeding. The patient subsequently was admitted and GI consulted. PAST MEDICAL HISTORY: 1. COPD. 2. Hypertension. 3. Lupus. 4. Fibromyalgia. 5. Opioid dependence. PAST SURGICAL HISTORY: 1. Cholecystectomy. 2. Hysterectomy. 3. Hip replacement. 4. Colon surgery. ALLERGIES: SULFA DRUGS, REGLAN and COMPAZINE. MEDICATIONS: Reviewed and updated in chart. SOCIAL HISTORY: Smoker. Social alcohol. FAMILY HISTORY: Negative for colon cancer, IBD, or liver disease. REVIEW OF SYSTEMS: GENERAL: Reports weakness. HEENT: No visual complaints or tinnitus. PULMONARY: No shortness of breath. No cough. No chest pain. GASTROINTESTINAL: Reports nausea, vomiting and loose stool. All points of 13-point review of systems otherwise negative. PHYSICAL EXAMINATION: VITAL SIGNS: Temperature of 98.3, pulse 83, respirations 18, blood pressure 122/56. GENERAL: Fairly thin female, in mild distress. HEENT: Pupils equal, round and reactive. PULMONARY: Clear to auscultation bilaterally. CARDIOVASCULAR: Regular rhythm. Normal S1, S2. ABDOMEN: Positive bowel sounds, soft. SKIN: No obvious rashes. LABORATORY DATA: Pertinent for white count of 7.0, hemoglobin and hematocrit 13.9 and 41.1, platelet count of 285. Chem-7 pertinent for a sodium of 139, potassium 3.1, chloride 98, CO2 of 22, BUN and creatinine of 41 and 1.2. LFTs within normal limits. ASSESSMENT: A 73-year-old female with multiple medical problems including opioid dependence, now presents with nausea, vomiting and loose stools. The patient is unable to tell whether or not she thinks this might be related to some recent diet. Possibility of colitis versus gastritis versus medication induced versus other. PLAN: 1. Stool cultures as ordered. 2. Antiemetics and pain medications p.r.n. 3. Electrolyte management per primary team. 4. Consider CT scan based on progress. 5. No indication for scope at this time. 6. We will start clear liquid diet and advance based on progress. 7. We will follow. JOB# [id number] CAB/NTS
[2018-10-24 06:43] LABS: BUN/Creatinine Ratio 23; Blood Urea Nitrogen 21 mg/dL (7-17); Calcium 7.7 mg/dL (8.4-10.2); Hemolysis Index 3
--- NOTE | 2018-10-24 07:14 | Progress Note ---
Assessment and Plan - Patient Problems (1) Acute renal failure Current Visit: Yes Status: Acute Plan to address problem: Pre-renal secondary to nausea/vomiting, diarrhea and poor PO intake. Agree with current regimen, supportive care, IVF. Avoid nephrotoxins, maintain MAP >65mmHg. Patient needs to follow up with nephrology in 2 weeks post discharge. (2) Hypokalemia Current Visit: Yes Status: Acute Plan to address problem: Replete per protocol, likely secondary to underlying GI losses. (3) Diarrhea Current Visit: Yes Status: Acute Plan to address problem: Symptoms are showing improvement. Stool studies pending, placed on flagyl. Management per primary team. (4) Intractable nausea and vomiting Current Visit: Yes Status: Acute Plan to address problem: PRN antiemetics. Symptoms have shown improvement since admission. Subjective Date of service: 10/24/18 Interval history: No acute issues overnight, symptoms resolving at this time. Renal function improved back to baseline. Objective - Vital Signs Vital signs: Vital Signs - 12hr 10/23/18 10/23/18 10/23/18 20:14 21:05 22:00 Temperature 98.4 F Pulse Rate 76 Pulse Rate [ 88 Anterior Bilateral] Pulse Rate [ 70 Right Brachial] Respiratory 16 16 Rate Respiratory 18 Rate [Anterior Bilateral] Blood Pressure 101/44 O2 Sat by Pulse 93 91 Oximetry 10/24/18 02:38 Temperature 97.5 F L Pulse Rate 70 Pulse Rate [ Anterior Bilateral] Pulse Rate [ Right Brachial] Respiratory 16 Rate Respiratory Rate [Anterior Bilateral] Blood Pressure 101/44 O2 Sat by Pulse 91 Oximetry - General Appearance General appearance: well-developed, well-nourished, appears stated age EENT: ATNC, PERRL Neck: no JVD, no thyromegaly Respiratory: Present: Clear to Ascultation Cardiology: regular, S1S2 Gastrointestinal: normal Integumentary: no rash, warm and dry Neurologic: no focal deficit, no asterixis Musculoskeletal: other (-edema ) Psychiatric: mood/affect appropriate, cooperative - Lab 10/23/18 04:32 10/24/18 05:34 Most recent lab results Calcium 7.7 mg/dL (8.4-10.2) L 10/24/18 05:34 - Allied health notes Allied health notes reviewed: nursing Medications & Allergies - Medications Allergies/Adverse Reactions: Allergies Sulfa (Sulfonamide Antibiotics) Allergy (Intermediate, Verified 10/22/18 16:30) Rash metoclopramide HCl [From Reglan] Allergy (Verified 10/22/18 16:30) Dizziness prochlorperazine [From Compazine] Allergy (Verified 10/22/18 16:30) NECK STIFFNESS Home Medications: Home Medications Medication Instructions Recorded Confirmed Last Taken Type Ondansetron 4 mg PO Q6HR PRN 12/05/16 10/22/18 10/29/17 History Propranolol HCl [Propranolol HCl 60 mg PO DAILY 12/05/16 10/22/18 10/30/17 22:00 History ER] QUEtiapine [SEROquel] 300 mg PO DAILY 12/05/16 10/22/18 10/30/17 History Lasix TAB 40 mg PO PRN PRN 12/07/16 10/22/18 10/24/17 History Percocet 10/325 mg 1 tab PO PRN PRN 12/07/16 10/22/18 10/30/17 History Albuterol Sulfate [Albuterol 0.63% 0.63 mg IH TID PRN 10/22/17 10/22/18 10/29/17 History NEBS] Active Medications: Generic Name Dose Route Start Last Admin Trade Name Freq PRN Reason Stop Dose Admin Acetaminophen 650 mg 10/22/18 20:10 Tylenol PO Q4H PRN Pain MILD(1-3)/Fever >100.5/PORTER Albuterol 2.5 mg 10/22/18 20:14 Proventil IH Q4HRT PRN Shortness Of Breath Albuterol/Ipratropium 1 ampul 10/23/18 14:00 10/23/18 21:00 Duoneb *Not For Prn Use* IH 1 ampul TIDRT RICK Administration Budesonide 0.5 mg 10/23/18 08:00 10/23/18 21:00 Pulmicort IH 0.5 mg Q12HRT RICK Administration Guaifenesin 600 mg 10/22/18 22:00 10/23/18 22:33 Mucinex Er PO 600 mg BID RICK Administration Heparin Sodium (Porcine) 5,000 unit 10/22/18 22:00 10/23/18 22:32 Heparin SUB-Q 5,000 unit Q12HR RCIK Administration Hydralazine HCl 10 mg 10/22/18 21:41 Apresoline IV Q4HR PRN Blood Pressure Metronidazole 500 mg in 100 mls @ 100 mls/hr 10/22/18 22:00 10/24/18 05:13 Flagyl 500 Mg/100 Ml IV 100 mls/hr Q8HR RICK Administration Protocol Piperacillin Sod/Tazobactam Sod 2.25 gm in 50 mls @ 100 mls/hr 10/23/18 00:00 10/24/18 05:13 Zosyn/Ns 2.25 Gm/50ml IV 100 mls/hr Q6HR RICK Administration Dextrose/Sodium Chloride 1,000 mls @ 125 mls/hr 10/23/18 11:30 10/23/18 22:28 D5ns IV 125 mls/hr DIRECT RICK Administration Ondansetron HCl 4 mg 10/22/18 20:10 10/24/18 05:12 Zofran IV 4 mg Q8H PRN Administration Nausea And Vomiting Oxycodone/Acetaminophen 1 tab 10/22/18 20:10 10/24/18 06:15 Percocet 5/325 PO 1 tab Q6H PRN Administration Pain, Moderate (4-6) Promethazine HCl 25 mg 10/22/18 20:10 10/22/18 21:21 Phenergan SC 25 mg Q6H PRN Administration Nausea And Vomiting Propranolol HCl 60 mg 10/23/18 10:00 10/23/18 11:49 Inderal La PO Not Given DAILY RICK Quetiapine Fumarate 200 mg 10/22/18 23:00 10/23/18 22:33 Seroquel PO 200 mg QHS RICK Administration Quetiapine Fumarate 100 mg 10/22/18 23:00 10/23/18 22:32 Seroquel PO 100 mg QHS RICK Administration Sodium Chloride 10 ml 10/22/18 22:00 10/23/18 22:33 Sodium Chloride Flush Syringe 10 Ml IV 10 ml BID RICK Administration Sodium Chloride 10 ml 10/22/18 20:10 10/23/18 08:54 Sodium Chloride Flush Syringe 10 Ml IV 10 ml PRN PRN Administration LINE FLUSH
[2018-10-24] MEDS: PULMICORT IH SCH ×2 (07:21→20:15)
[2018-10-24] MEDS: DUONEB *Not for PRN Use IH SCH ×3 (07:21→20:15)
[2018-10-24] MEDS: D5NS 1,000 ML IV SCH ×2 (09:22→22:23)
[2018-10-24] MEDS: KCL 10MEQ/100ML 10 MEQ/100 ML BAG IV SCH ×3 (09:23→14:08)
[2018-10-24] MEDS: MUCINEX ER PO SCH ×2 (09:25→22:21)
[2018-10-24] MEDS: HEPARIN SUB-Q SCH ×2 (09:25→22:26)
[2018-10-24] MEDS: INDERAL LA PO SCH (09:25)
[2018-10-24] MEDS: SODIUM CHLORIDE FLUSH SYRINGE 10 ML IV SCH ×2 (09:26→22:23)
[2018-10-24] MEDS ORDERED: SODIUM PHOSPHATE 45 MMOL in NACL 0.9% 500 ML 500 ML IV ONE (10:05)
[2018-10-24] MEDS: PROTONIX IV SCH (11:37)
--- NOTE | 2018-10-24 11:47 | Progress Note ---
Assessment and Plan Assessment and plan: 73-year-old female with history of hypertension, lupus, fibromyalgia, COPD, opioid dependence (follows Dr. Felix Muñiz at pain clinic) who presents to [facility] ED with complaints of intractable nausea, vomiting, diarrhea for the past 3 days. On initial presentation to the ED she was found to be tachycardiac with heart rate 113 BPM, leukocytosis with WBC 11.5, elevated BUN/Cr 51/2.1. She feels IM Haldol and was given Zofran 3 to help with n/v. Patient has history of COPD and at baseline does not require home oxygen use. Currently she is on 2 L supplemental oxygen. She'll be admitted to [facility] unit with remote telemetry monitoring. GI and nephrology consult. SIRS Suspicion of colitis Suspicion of gastritis Acute exacerbation COPD Acute hypoxic respiratory failure Hypertension Lupus Fibromyalgia History of opioid dependence ADWOA due to vasomotor nephropathy Plan: Obtain CT Abd today since Cr normal Continue supportive care Remote telemetry monitoring Continue Zosyn and Flagyl Monitor BP Inderal 60 mg daily IV hydralazine when necessary Continue supplemental oxygen and wean as tolerated Scheduled Duo Nebs and Pulmicort; albuterol when necessary Mucinex Monitor CBC Monitor BUN/Cr IVF Cultures pending Pain management GI following Nephrology following DVT PPX on heparin discussed with patient and at bedside History Interval history: Less Abdominal pain Still having nausea, less Vomiting less diarrhea Hospitalist Physical - Physical exam Narrative exam: Gen: Not in acute distress, lying in bed, HEENT: Normocephalic, atraumatic Neck: supple, no JVD Heart: S1 and S2 reg, no murmurs, rubs or gallop Lungs: Clear, no crackles, no wheeze Abd: soft, mild tender, no rebound tenderness, non distended, normal BS Ext: No edema, no clubbing, no cyanosis, Neuro: Awake,alert, oriented x 3, moves all ext, non focal Psych:Normal mood - Constitutional Vitals: Temp Pulse Resp BP Pulse Ox 97.7 F 73 18 145/49 92 10/24/18 08:54 10/24/18 08:54 10/24/18 08:54 10/24/18 08:54 10/24/18 08:46 Results - Labs CBC & Chem 7: 10/23/18 04:32 10/24/18 05:34 Labs: Laboratory Last Values WBC 7.0 K/mm3 (4.5-11.0) 10/23/18 04:32 RBC 4.30 M/mm3 (3.65-5.03) 10/23/18 04:32 Hgb 13.9 gm/dl (10.1-14.3) D 10/23/18 04:32 Hct 41.1 % (30.3-42.9) D 10/23/18 04:32 MCV 96 fl (79-97) 10/23/18 04:32 MCH 32 pg (28-32) 10/23/18 04:32 MCHC 34 % (30-34) 10/23/18 04:32 RDW 13.4 % (13.2-15.2) 10/23/18 04:32 Plt Count 285 K/mm3 (140-440) 10/23/18 04:32 Lymph % (Auto) 10.2 % (13.4-35.0) L 10/23/18 04:32 Geary % (Auto) 14.7 % (0.0-7.3) H 10/23/18 04:32 Eos % (Auto) 0.1 % (0.0-4.3) 10/23/18 04:32 Baso % (Auto) 0.1 % (0.0-1.8) 10/23/18 04:32 Lymph # 0.7 K/mm3 (1.2-5.4) L 10/23/18 04:32 Geary # 1.0 K/mm3 (0.0-0.8) H 10/23/18 04:32 Eos # 0.0 K/mm3 (0.0-0.4) 10/23/18 04:32 Baso # 0.0 K/mm3 (0.0-0.1) 10/23/18 04:32 Seg Neutrophils % 74.9 % (40.0-70.0) H 10/23/18 04:32 Seg Neutrophils # 5.2 K/mm3 (1.8-7.7) 10/23/18 04:32 Sodium 143 mmol/L (137-145) 10/24/18 05:34 Potassium 3.2 mmol/L (3.6-5.0) L 10/24/18 05:34 Chloride 109.8 mmol/L (98-107) H 10/24/18 05:34 Carbon Dioxide 24 mmol/L (22-30) 10/24/18 05:34 12 mmol/L 10/24/18 05:34 BUN 21 mg/dL (7-17) H 10/24/18 05:34 0.9 mg/dL (0.7-1.2) 10/24/18 05:34 Estimated GFR > 60 ml/min 10/24/18 05:34 23 % 10/24/18 05:34 Glucose 134 mg/dL (65-100) H 10/24/18 05:34 Calcium 7.7 mg/dL (8.4-10.2) L 10/24/18 05:34 Phosphorus 0.80 mg/dL (2.5-4.5) L* 10/24/18 05:34 Magnesium 2.10 mg/dL (1.7-2.3) 10/24/18 05:34 0.40 mg/dL (0.1-1.2) 10/22/18 15:54 AST 25 units/L (5-40) 10/22/18 15:54 ALT 22 units/L (7-56) 10/22/18 15:54 129 units/L (35-129) 10/22/18 15:54 7.6 g/dL (6.3-8.2) 10/22/18 15:54 3.4 g/dL (3.9-5) L 10/22/18 15:54 0.8 % 10/22/18 15:54 10 units/L (13-60) L 10/22/18 15:54 Dulce (Yellow) 10/22/18 19:10 Clear (Clear) 10/22/18 19:10 5.0 (5.0-7.0) 10/22/18 19:10 Ur Specific [place] 1.018 (1.003-1.030) 10/22/18 19:10 30 mg/dl mg/dL (Negative) 10/22/18 19:10 Neg mg/dL (Negative) 10/22/18 19:10 Tr mg/dL (Negative) 10/22/18 19:10 Neg (Negative) 10/22/18 19:10 Neg (Negative) 10/22/18 19:10 Neg (Negative) 05/22/19 19:10 < 2.0 mg/dL (<2.0) 10/22/18 19:10 Ur Leukocyte Esterase Neg (Negative) 10/22/18 19:10 1.0 /HPF (0.0-6.0) 10/22/18 19:10 3.0 /HPF (0.0-6.0) 10/22/18 19:10 Active Medications - Current Medications Current Medications: Generic Name Dose Route Start Last Admin Trade Name Freq PRN Reason Stop Dose Admin Acetaminophen 650 mg 10/22/18 20:10 Tylenol PO Q4H PRN Pain MILD(1-3)/Fever >100.5/PORTER Albuterol 2.5 mg 10/22/18 20:14 Proventil IH Q4HRT PRN Shortness Of Breath Albuterol/Ipratropium 1 ampul 10/23/18 14:00 10/24/18 07:21 Duoneb *Not For Prn Use* IH 1 ampul TIDRT RICK Administration Budesonide 0.5 mg 10/23/18 08:00 10/24/18 07:21 Pulmicort IH 0.5 mg Q12HRT RICK Administration Guaifenesin 600 mg 10/22/18 22:00 10/24/18 09:25 Mucinex Er PO 600 mg BID RICK Administration Heparin Sodium (Porcine) 5,000 unit 10/22/18 22:00 10/24/18 09:25 Heparin SUB-Q 5,000 unit Q12HR RICK Administration Hydralazine HCl 10 mg 10/22/18 21:41 Apresoline IV Q4HR PRN Blood Pressure Metronidazole 500 mg in 100 mls @ 100 mls/hr 10/22/18 22:00 10/24/18 05:13 Flagyl 500 Mg/100 Ml IV 10/27/18 21:59 100 mls/hr Q8HR RICK Administration Protocol Dextrose/Sodium Chloride 1,000 mls @ 125 mls/hr 10/23/18 11:30 10/24/18 09:22 D5ns IV 125 mls/hr DIRECT RICK Administration Piperacillin Sod/Tazobactam Sod 4.5 gm in 100 mls @ 200 mls/hr 10/24/18 14:00 Zosyn/Ns 4.5gm/100ml IV Q8HR RICK Sodium Phosphate 45 mmol/ 515 mls @ 84 mls/hr 10/24/18 10:05 10/24/18 11:35 Sodium Chloride IV 10/24/18 16:12 84 mls/hr ONCE ONE Administration Ondansetron HCl 4 mg 10/24/18 10:05 Zofran IV Q6H PRN Nausea And Vomiting Oxycodone/Acetaminophen 1 tab 10/22/18 20:10 10/24/18 06:15 Percocet 5/325 PO 1 tab Q6H PRN Administration Pain, Moderate (4-6) Pantoprazole Sodium 40 mg 10/24/18 11:00 10/24/18 11:37 Protonix IV 40 mg QDAY RICK Administration Promethazine HCl 25 mg 10/22/18 20:10 10/22/18 21:21 Phenergan CA 25 mg Q6H PRN Administration Nausea And Vomiting Propranolol HCl 60 mg 10/23/18 10:00 10/24/18 09:25 Inderal La PO 60 mg DAILY RICK Administration Quetiapine Fumarate 200 mg 10/22/18 23:00 10/23/18 22:33 Seroquel PO 200 mg QHS RICK Administration Quetiapine Fumarate 100 mg 10/22/18 23:00 10/23/18 22:32 Seroquel PO 100 mg QHS RICK Administration Sodium Chloride 10 ml 10/22/18 22:00 10/24/18 09:26 Sodium Chloride Flush Syringe 10 Ml IV 10 ml BID RICK Administration Sodium Chloride 10 ml 10/22/18 20:10 10/23/18 08:54 Sodium Chloride Flush Syringe 10 Ml IV 10 ml PRN PRN Administration LINE FLUSH Nutrition/Malnutrition Assess - Dietary Evaluation Nutrition/Malnutrition Findings: Nutrition Notes Start: 10/23/18 17:03 Freq: Status: Active Protocol: Document 10/23/18 17:03 (Rec: 10/23/18 17:03 [email or web address]) 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 Garrick 19 points. Nutrition Intervention Revisit per MD consult or patient Sign Off request:
--- NOTE | 2018-10-24 11:48 | Cat Scan Report ---
PROCEDURE: CT ABDOMEN PELVIS W CON TECHNIQUE: Computerized axial tomography of the abdomen and pelvis was performed after the IV inject ion of iodinated nonionic contrast. CT DOSE LENGTH PRODUCT: 1243.2 mGycm HISTORY: abd pain, vomiting, diarrhea COMPARISONS: None . FINDINGS: Visualized lower thorax: Patchy consolidation in the bilateral lung bases, left greater than right wi th small bilateral pleural effusions. Mild diffuse bronchiectasis at the bilateral lung bases. Liver: Normal size and attenuation. Spleen: Normal size and attenuation. Gallbladder and biliary system: The gallbladder is not seen and is likely surgically absent. There is mild dilatation of the intrahepatic and extrahepatic biliary tree. There is also pneumobilia. The co mmon bile duct measures up to 1 cm in diameter Pancreas: Normal appearance of the pancreatic parenchyma. Mild dilatation of the pancreatic duct pro ximally, which measures up to 5 mm. Adrenals: Normal. Kidneys: Atrophic left kidney. Multiple low-density lesions throughout the right renal cortex, likely medical field representative of cysts measuring up to 1.5 cm. No hydronephrosis. GI tract: Distended stomach and small bowel to the level of the distal jejunum with internal air flu id levels. No definite transition point, however ileal loops are decompressed. There has been a subto cheko colectomy with anastomosis to the small bowel at the level of the distal sigmoid colon. There is some thickening of the wall of the bowel associated with the anastomosis . Lymph nodes and mesentery: Normal. Vasculature: Normal caliber of the abdominal aorta without evidence of aneurysm. Scattered atheroscle rotic calcifications. Bladder: Mildly distended. Reproductive organs: The uterus is surgically absent. Peritoneum: There is a small amount of free fluid around the pancreatic head and within the pelvis. Musculoskeletal structures: No significant abnormality. Other: None . IMPRESSION: 1. Dilated stomach and small bowel to the level of the distal jejunum with internal air fluid levels. No definite transition point, however ileal loops are decompressed. Findings may represent small bow el obstruction versus adynamic ileus. 2. Postsurgical changes from subtotal colectomy with anastomosis at the level of the distal sigmoid c olon. Some thickening of the wall of the bowel associated with the anastomosis, and adhesions are not excluded. 3. Some free fluid around the pancreatic head. Recommend correlation with pancreatic enzymes to exclu de pancreatitis. The pancreatic parenchyma is otherwise normal in appearance. 4. Dilated common bile duct and biliary tree, including the proximal pancreatic duct, with pneumobili a . Findings may represent sequela from small bowel process or ascending infection versus prior surgi krunal intervention. Recommend clinical correlation. 5. Small amount of free fluid within the pelvis, likely reactive. No free air. 6. Atrophic left kidney and several simple appearing cysts of the right kidney. This document is electronically signed by Violeta Campo MD., Oct 24 2018 11:46:43 AM ET
[2018-10-24] MEDS: MORPHINE IV PRN ×2 (14:17→19:55)
[2018-10-24] MEDS: ZOSYN/NS 4.5GM/100ML 4.5 GM/100 ML VIAL IV SCH (17:19)
--- NOTE | 2018-10-24 17:28 | Gastroenterology Progress Note ---
Assessment and Plan GI: pt multiple pmh presented with n/v/and abdominal, ct scan today w/ possible ileus vs pSBO - reports some overall improvement in symptoms - KUB in am - continue clear liquid diet for now but decrease if GI symptoms worsen - consider surgery consult if worsens or no improvement - no plans to scope at this time - anti-emetics and pain meds per primary team - will follow Subjective Date of service: 10/24/18 Interval history: - pt reports some improved nausea, tolerating some clear liquid diet Objective - Constitutional Vitals: Temp Pulse Resp BP Pulse Ox 97.5 F L 69 20 112/47 97 10/24/18 13:53 10/24/18 15:17 10/24/18 15:17 10/24/18 13:53 10/24/18 13:53 General appearance: no acute distress - EENT Eyes: PERRL - Respiratory Respiratory: bilateral: CTA - Cardiovascular Rhythm: regular Heart Sounds: Present: S1 & S2 - Gastrointestinal General gastrointestinal: Present: soft, non-tender, non-distended - Labs CBC & Chem 7: 10/23/18 04:32 10/24/18 05:34 Labs: Laboratory Results - last 24 hr 10/24/18 10/24/18 10/24/18 05:34 05:34 05:34 Sodium 143 Potassium 3.2 L Chloride 109.8 H Carbon Dioxide 24 Anion Gap 12 BUN 21 H Creatinine 0.9 Estimated GFR > 60 BUN/Creatinine Ratio 23 Glucose 134 H Calcium 7.7 L Phosphorus 0.80 L* Magnesium 2.10
[2018-10-24] MEDS: SODIUM CHLORIDE FLUSH SYRINGE 10 ML IV PRN (18:32)
[2018-10-24] MEDS: PROVENTIL IH PRN (23:15)
[2018-10-25] MEDS: MORPHINE IV PRN ×5 (00:22→21:32)
[2018-10-25] MEDS: ZOSYN/NS 4.5GM/100ML 4.5 GM/100 ML VIAL IV SCH ×5 (04:07→22:27)
[2018-10-25] MEDS: ZOFRAN IV PRN ×2 (05:13→17:26)
[2018-10-25 06:02] LABS: BUN/Creatinine Ratio 13; Blood Urea Nitrogen 9 mg/dL (7-17); Hemolysis Index 48
[2018-10-25] MEDS: FLAGYL 500 MG/100 ML 500 MG/100 ML BAG IV SCH ×3 (06:24→21:05)
[2018-10-25] MEDS: D5NS 1,000 ML IV SCH (06:34)
[2018-10-25 07:00] LABS: Hematocrit 40.1 % (30.3-42.9); Hemoglobin 13.3 gm/dl (10.1-14.3); Mean Corpuscular HGB Conc 33 % (30-34); Mean Corpuscular Volume 99 fl (79-97); Platelet Count 286 K/mm3 (140-440); Red Blood Count 4.06 M/mm3 (3.65-5.03); Red Cell Distribution Width 14.3 % (13.2-15.2)
[2018-10-25] MEDS: DUONEB *Not for PRN Use IH SCH ×3 (07:02→19:49)
[2018-10-25] MEDS: PULMICORT IH SCH ×2 (07:02→19:49)
--- NOTE | 2018-10-25 09:05 | XRay Report ---
PROCEDURE: XR ABDOMEN 1V AP TECHNIQUE: Portable supine abdomen HISTORY: obstruction COMPARISON: None FINDINGS: There is a large distended stomach displacing bowel loops. There are some dilated proximal small hollie l loops. This is concerning for bowel obstruction. There is little gas in colon. Contrast persists in the bladder from recent CT exam. There are lumbar degenerative changes. IMPRESSION: Distended stomach and some dilated bowel loops. This could reflect bowel obstruction. This document is electronically signed by Hortencia Villagomez MD., Oct 25 2018 09:03:30 AM ET
[2018-10-25] MEDS: MUCINEX ER PO SCH ×2 (09:36→21:07)
[2018-10-25] MEDS: PROTONIX IV SCH (09:36)
[2018-10-25] MEDS: SODIUM CHLORIDE FLUSH SYRINGE 10 ML IV SCH ×2 (09:36→21:14)
[2018-10-25] MEDS: HEPARIN SUB-Q SCH ×2 (09:37→21:13)
[2018-10-25] MEDS: INDERAL LA PO SCH (09:37)
[2018-10-25] MEDS: D5W/0.45% NACL/KCL 20 MEQ 20 MEQ/1,000 ML BAG IV SCH ×2 (09:38→23:11)
--- NOTE | 2018-10-25 10:36 | Progress Note ---
Assessment and Plan Assessment and plan: 73-year-old female with history of hypertension, lupus, fibromyalgia, COPD, opioid dependence (follows Dr. Felix Muñiz at pain clinic) who presents to [facility] ED with complaints of intractable nausea, vomiting, diarrhea for the past 3 days. On initial presentation to the ED she was found to be tachycardiac with heart rate 113 BPM, leukocytosis with WBC 11.5, elevated BUN/Cr 51/2.1. She feels IM Haldol and was given Zofran 3 to help with n/v. Patient has history of COPD and at baseline does not require home oxygen use. Currently she is on 2 L supplemental oxygen. She'll be admitted to [facility] unit with remote telemetry monitoring. GI and nephrology consult. SIRS Acute exacerbation COPD Acute hypoxic respiratory failure Hypertension Lupus Fibromyalgia History of opioid dependence ADWOA due to vasomotor nephropathy Plan: Continue supportive care CT Abd shows SBO vs ileus Remote telemetry monitoring Continue Zosyn and Flagyl Monitor BP Inderal 60 mg daily IV hydralazine when necessary Continue supplemental oxygen and wean as tolerated Scheduled Duo Nebs and Pulmicort; albuterol when necessary Mucinex Monitor CBC Monitor BUN/Cr IVF Cultures pending Pain management GI following Nephrology following DVT PPX on heparin discussed with patient and at bedside History Interval history: Less Abdominal pain Still having nausea-had history of chronic nausea, less Vomiting less diarrhea Hospitalist Physical - Physical exam Narrative exam: Gen: Not in acute distress, lying in bed, HEENT: Normocephalic, atraumatic Neck: supple, no JVD Heart: S1 and S2 reg, no murmurs, rubs or gallop Lungs: Clear, no crackles, no wheeze Abd: soft, mild tender, no rebound tenderness, non distended, normal BS Ext: No edema, no clubbing, no cyanosis, Neuro: Awake,alert, oriented x 3, moves all ext, non focal Psych:Normal mood - Constitutional Vitals: Temp Pulse Resp BP Pulse Ox 97.6 F 72 20 130/64 96 10/25/18 08:08 10/25/18 08:08 10/25/18 08:08 10/25/18 08:08 10/25/18 08:08 Results - Labs CBC & Chem 7: 10/25/18 06:07 10/25/18 04:51 Labs: Laboratory Last Values WBC 9.3 K/mm3 (4.5-11.0) 10/25/18 06:07 RBC 4.06 M/mm3 (3.65-5.03) 10/25/18 06:07 Hgb 13.3 gm/dl (10.1-14.3) 10/25/18 06:07 Hct 40.1 % (30.3-42.9) 10/25/18 06:07 MCV 99 fl (79-97) H 10/25/18 06:07 MCH 33 pg (28-32) H 10/25/18 06:07 MCHC 33 % (30-34) 10/25/18 06:07 RDW 14.3 % (13.2-15.2) 10/25/18 06:07 Plt Count 286 K/mm3 (140-440) 10/25/18 06:07 Lymph % (Auto) 10.2 % (13.4-35.0) L 10/23/18 04:32 [place] % (Auto) 14.7 % (0.0-7.3) H 10/23/18 04:32 Eos % (Auto) 0.1 % (0.0-4.3) 10/23/18 04:32 Baso % (Auto) 0.1 % (0.0-1.8) 10/23/18 04:32 Lymph # 0.7 K/mm3 (1.2-5.4) L 10/23/18 04:32 [place] # 1.0 K/mm3 (0.0-0.8) H 10/23/18 04:32 Eos # 0.0 K/mm3 (0.0-0.4) 10/23/18 04:32 Baso # 0.0 K/mm3 (0.0-0.1) 10/23/18 04:32 Seg Neutrophils % 74.9 % (40.0-70.0) H 10/23/18 04:32 Seg Neutrophils # 5.2 K/mm3 (1.8-7.7) 10/23/18 04:32 Sodium 144 mmol/L (137-145) 10/25/18 04:51 Potassium 3.1 mmol/L (3.6-5.0) L 10/25/18 04:51 Chloride 114.2 mmol/L (98-107) H 10/25/18 04:51 Carbon Dioxide 17 mmol/L (22-30) L D 10/25/18 04:51 16 mmol/L 10/25/18 04:51 BUN 9 mg/dL (7-17) 10/25/18 04:51 0.7 mg/dL (0.7-1.2) 10/25/18 04:51 Estimated GFR > 60 ml/min 10/25/18 04:51 13 % 10/25/18 04:51 Glucose 171 mg/dL (65-100) H 10/25/18 04:51 Calcium 7.0 mg/dL (8.4-10.2) L 10/25/18 04:51 Phosphorus 2.80 mg/dL (2.5-4.5) D 10/25/18 04:51 Magnesium 2.10 mg/dL (1.7-2.3) 10/24/18 05:34 0.40 mg/dL (0.1-1.2) 10/22/18 15:54 AST 25 units/L (5-40) 10/22/18 15:54 ALT 22 units/L (7-56) 10/22/18 15:54 129 units/L (35-129) 10/22/18 15:54 7.6 g/dL (6.3-8.2) 10/22/18 15:54 3.4 g/dL (3.9-5) L 10/22/18 15:54 0.8 % 10/22/18 15:54 10 units/L (13-60) L 10/22/18 15:54 Dulce (Yellow) 10/22/18 19:10 Clear (Clear) 10/22/18 19:10 5.0 (5.0-7.0) 10/22/18 19:10 Ur Specific [place] 1.018 (1.003-1.030) 10/22/18 19:10 30 mg/dl mg/dL (Negative) 10/22/18 19:10 Neg mg/dL (Negative) 10/22/18 19:10 Tr mg/dL (Negative) 10/22/18 19:10 Neg (Negative) 10/22/18 19:10 Neg (Negative) 10/22/18 19:10 Neg (Negative) 10/22/18 19:10 < 2.0 mg/dL (<2.0) 10/22/18 19:10 Ur Leukocyte Esterase Neg (Negative) 10/22/18 19:10 1.0 /HPF (0.0-6.0) 10/22/18 19:10 3.0 /HPF (0.0-6.0) 10/22/18 19:10 Active Medications - Current Medications Current Medications: Generic Name Dose Route Start Last Admin Trade Name Freq PRN Reason Stop Dose Admin Acetaminophen 650 mg 10/22/18 20:10 Tylenol PO Q4H PRN Pain MILD(1-3)/Fever >100.5/PORTER Albuterol 2.5 mg 10/22/18 20:14 10/24/18 23:15 Proventil IH 2.5 mg Q4HRT PRN Administration Shortness Of Breath Albuterol/Ipratropium 1 ampul 10/23/18 14:00 10/25/18 07:02 Duoneb *Not For Prn Use* IH 1 ampul TIDRT RICK Administration Budesonide 0.5 mg 10/23/18 08:00 10/25/18 07:02 Pulmicort IH 0.5 mg Q12HRT RICK Administration Guaifenesin 600 mg 10/22/18 22:00 10/25/18 09:36 Mucinex Er PO 600 mg BID RICK Administration Heparin Sodium (Porcine) 5,000 unit 10/22/18 22:00 10/25/18 09:37 Heparin SUB-Q 5,000 unit Q12HR RICK Administration Hydralazine HCl 10 mg 10/22/18 21:41 Apresoline IV Q4HR PRN Blood Pressure Metronidazole 500 mg in 100 mls @ 100 mls/hr 10/22/18 22:00 10/25/18 06:24 Flagyl 500 Mg/100 Ml IV 10/27/18 21:59 100 mls/hr Q8HR RICK Administration Protocol Piperacillin Sod/Tazobactam Sod 4.5 gm in 100 mls @ 200 mls/hr 10/24/18 14:00 10/25/18 06:25 Zosyn/Ns 4.5gm/100ml IV Not Given Q8HR RICK Potassium Chloride/Dextrose/Sod Cl 20 meq in 1,000 mls @ 100 mls/hr 10/25/18 09:00 10/25/18 09:38 D5w/0.45% Nacl/Kcl 20 Meq IV 100 mls/hr DIRECT RICK Administration Morphine Sulfate 2 mg 10/24/18 13:39 10/25/18 05:09 Morphine IV 2 mg Q4H PRN Administration Pain, Moderate (4-6) Ondansetron HCl 4 mg 10/24/18 10:05 10/25/18 05:13 Zofran IV 4 mg Q6H PRN Administration Nausea And Vomiting Oxycodone/Acetaminophen 1 tab 10/22/18 20:10 10/24/18 06:15 Percocet 5/325 PO 1 tab Q6H PRN Administration Pain, Moderate (4-6) Pantoprazole Sodium 40 mg 10/24/18 11:00 10/25/18 09:36 Protonix IV 40 mg QDAY RICK Administration Promethazine HCl 25 mg 10/22/18 20:10 10/22/18 21:21 Phenergan VT 25 mg Q6H PRN Administration Nausea And Vomiting Propranolol HCl 60 mg 10/23/18 10:00 10/25/18 09:37 Inderal La PO 60 mg DAILY RICK Administration Quetiapine Fumarate 200 mg 10/22/18 23:00 10/24/18 22:22 Seroquel PO 200 mg QHS RICK Administration Quetiapine Fumarate 100 mg 10/22/18 23:00 10/24/18 22:22 Seroquel PO 100 mg QHS RICK Administration Sodium Chloride 10 ml 10/22/18 22:00 10/25/18 09:36 Sodium Chloride Flush Syringe 10 Ml IV 10 ml BID IRCK Administration Sodium Chloride 10 ml 10/22/18 20:10 10/24/18 18:32 Sodium Chloride Flush Syringe 10 Ml IV 10 ml PRN PRN Administration LINE FLUSH Nutrition/Malnutrition Assess - Dietary Evaluation Nutrition/Malnutrition Findings: Nutrition Notes Start: 10/23/18 17:03 Freq: Status: Active Protocol: Document 10/23/18 17:03 (Rec: 10/23/18 17:03 [id number]) 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 Garrick 19 points. Nutrition Intervention Revisit per MD consult or patient Sign Off request:
--- NOTE | 2018-10-25 11:02 | Gastroenterology Progress Note ---
Assessment and Plan 1. Abdominal pain 2. Nausea/vomiting 3. h/o subtotal colectomy -imaging (CT and KUB) with findings suggestive of ileus vs SBO; prior abdominal surgeries including subtotal colectomy ~10 years ago. -replete electrolytes, encouraged ambulation, and limit opiods -SBFT to evaluate for possible SBO; consider surgery consult based on progress and imaging findings Subjective Date of service: 10/25/18 Principal diagnosis: n/v, abdominal pain Interval history: pt continues to have abdominal pain and nausea; + reflux symptoms; poor po intake due to nausea. no emesis. had a bm yesterday Objective - Constitutional Vitals: Temp Pulse Resp BP Pulse Ox 97.6 F 72 20 130/64 96 10/25/18 08:08 10/25/18 08:08 10/25/18 08:08 10/25/18 08:08 10/25/18 08:08 General appearance: no acute distress - Respiratory Respiratory effort: normal Respiratory: bilateral: CTA - Cardiovascular Rhythm: regular Heart Sounds: Present: S1 & S2 - Gastrointestinal General gastrointestinal: Present: soft, tender (diffuse ttp), distended (mild distention), hypoactive bowel sounds - Neurologic Neurological: alert and oriented x3 - Psychiatric Psychiatric: appropriate mood/affect - Labs CBC & Chem 7: 10/25/18 06:07 10/25/18 04:51 Labs: Laboratory Results - last 24 hr 10/25/18 10/25/18 04:51 06:07 WBC 9.3 RBC 4.06 Hgb 13.3 Hct 40.1 MCV 99 H MCH 33 H MCHC 33 RDW 14.3 Plt Count 286 Sodium 144 Potassium 3.1 L Chloride 114.2 H Carbon Dioxide 17 L D Anion Gap 16 BUN 9 Creatinine 0.7 Estimated GFR > 60 BUN/Creatinine Ratio 13 Glucose 171 H Calcium 7.0 L Phosphorus 2.80 D - Imaging x-ray: report reviewed CT scan: report reviewed
[2018-10-25] MEDS: PHENERGAN PO PRN ×2 (11:04→20:00)
[2018-10-26] MEDS: PROVENTIL IH PRN (01:44)
[2018-10-26] MEDS ORDERED: SOLU-Medrol IV ONE (02:05)
[2018-10-26] MEDS ORDERED: ZOFRAN IV ONE (03:25)
[2018-10-26] MEDS: ZOSYN/NS 4.5GM/100ML 4.5 GM/100 ML VIAL IV SCH ×3 (05:22→23:20)
[2018-10-26] MEDS: FLAGYL 500 MG/100 ML 500 MG/100 ML BAG IV SCH ×3 (05:24→21:17)
[2018-10-26 06:25] LABS: Hematocrit 46.1 % (30.3-42.9); Hemoglobin 15.4 gm/dl (10.1-14.3); Mean Corpuscular HGB Conc 33 % (30-34); Mean Corpuscular Volume 96 fl (79-97); Platelet Count 395 K/mm3 (140-440); Red Blood Count 4.81 M/mm3 (3.65-5.03); Red Cell Distribution Width 13.8 % (13.2-15.2)
--- NOTE | 2018-10-26 06:32 | Event Note ---
Date: 10/26/18 Received a call from nurse stating that patient became short of breath after getting out of bed to use restroom. At the time of my assessment patient breathing is labored with use of a sensory muscles, saturation of 95% on 5 L nasal cannula. Respiratory was at the bedside she was given breathing treatment and Solu-Medrol 125 mg. Initial ABG 7.090/65/76/19.7 She was placed on BiPAP. Repeat ABG shows improvement at 7.32/32.8/84/16.9.
[2018-10-26 06:49] LABS: BUN/Creatinine Ratio 8; Blood Urea Nitrogen 7 mg/dL (7-17); Calcium 8.3 mg/dL (8.4-10.2); Hemolysis Index 27
[2018-10-26] MEDS: DUONEB *Not for PRN Use IH SCH ×4 (07:22→20:06)
[2018-10-26] MEDS: PULMICORT IH SCH ×2 (07:22→20:06)
[2018-10-26] MEDS ORDERED: LASIX IV STA (08:20)
--- NOTE | 2018-10-26 09:29 | XRay Report ---
PROCEDURE: XR CHEST 1V AP TECHNIQUE: Chest radiograph single view. HISTORY: shortness of breath COMPARISONS: None . FINDINGS: Heart: Normal. Mediastinum/Vessels: Normal. Lungs/Pleural space: Low lung volumes with bibasilar atelectasis. Blunting of the left costophrenic angle that may represent a small pleural effusion. There is gaseous distention of the stomach and bow el loops, which may be contributing to low lung volumes. Bony thorax: No acute osseous abnormality. Life support devices: None. IMPRESSION: Low lung volumes with bibasilar atelectasis. Blunting of the left costophrenic angle ayde t may represent a small pleural effusion. This document is electronically signed by Violeta Campo MD., Oct 26 2018 09:27:02 AM ET
--- NOTE | 2018-10-26 09:32 | XRay Report ---
PROCEDURE: XR ABDOMEN 1V AP TECHNIQUE: Supine abdomen HISTORY: Nausea, abd pain, poss bowel obstruction vs ileus COMPARISON: 10/25/2018 FINDINGS: There is unchanged marked distention of the stomach. There is unchanged dilatation of some small hollie l loops. Findings remain concerning for bowel obstruction. No suspicious calcifications seen. Degenerative changes noted in the spine. IMPRESSION: Unchanged radiographic findings suspicious for bowel obstruction. This document is electronically signed by Hortencia Villagomez MD., Oct 26 2018 09:30:37 AM ET
[2018-10-26] MEDS: HEPARIN SUB-Q SCH ×3 (10:00→21:17)
[2018-10-26] MEDS: MORPHINE IV PRN ×3 (10:09→21:15)
--- NOTE | 2018-10-26 10:09 | Progress Note ---
Assessment and Plan Assessment and plan: 73-year-old female with history of hypertension, lupus, fibromyalgia, COPD, opioid dependence (follows Dr. Felix Muñiz at pain clinic) who presents to [facility] ED with complaints of intractable nausea, vomiting, diarrhea for the past 3 days. On initial presentation to the ED she was found to be tachycardiac with heart rate 113 BPM, leukocytosis with WBC 11.5, elevated BUN/Cr 51/2.1. Patient has history of COPD and at baseline does not require home oxygen use. Currently she is on 2 L supplemental oxygen. She'll be admitted to [facility] unit with remote telemetry monitoring. GI and nephrology consult. SIRS Acute exacerbation COPD Acute hypoxic respiratory failure, put on BIPAP Hypertension Lupus Fibromyalgia History of opioid dependence ADWOA due to vasomotor nephropathy, now resolved Plan: Continue supportive care Consult Pulmonology May transfer to [facility] if no improvement CT Abd shows SBO vs ileus: Consulted Surgeon Remote telemetry monitoring Continue Zosyn and Flagyl Monitor BP Inderal 60 mg daily IV hydralazine when necessary Continue supplemental oxygen and wean as tolerated Scheduled Duo Nebs and Pulmicort; albuterol when necessary Mucinex Monitor CBC Monitor BUN/Cr IVF Cultures pending Pain management GI following Nephrology following DVT PPX on heparin discussed with patient and at bedside History Interval history: Shortness of breath last night, put on BIPAP less SOB Less Abdominal pain Still having nausea-had history of chronic nausea, less Vomiting Hospitalist Physical - Physical exam Narrative exam: Gen: Not in acute distress, lying in bed, BIPAP mask on HEENT: Normocephalic, atraumatic Neck: supple, no JVD Heart: S1 and S2 reg, no murmurs, rubs or gallop Lungs: Bilateral rhonchi, Abd: soft, mild tender, no rebound tenderness, non distended, normal BS Ext: No edema, no clubbing, no cyanosis, Neuro: Awake,alert, oriented x 3, moves all ext, non focal - Constitutional Vitals: Temp Pulse Resp BP Pulse Ox 98.5 F 110 H 28 H 125/91 99 10/26/18 07:45 10/26/18 07:45 10/26/18 07:45 10/26/18 07:45 10/26/18 07:57 Results - Labs CBC & Chem 7: 10/26/18 06:03 10/26/18 06:03 Labs: Laboratory Last Values WBC 23.8 K/mm3 (4.5-11.0) H 10/26/18 06:03 RBC 4.81 M/mm3 (3.65-5.03) 10/26/18 06:03 Hgb 15.4 gm/dl (10.1-14.3) H 10/26/18 06:03 Hct 46.1 % (30.3-42.9) H D 10/26/18 06:03 MCV 96 fl (79-97) 10/26/18 06:03 MCH 32 pg (28-32) 10/26/18 06:03 MCHC 33 % (30-34) 10/26/18 06:03 RDW 13.8 % (13.2-15.2) 10/26/18 06:03 Plt Count 395 K/mm3 (140-440) 10/26/18 06:03 Lymph % (Auto) 10.2 % (13.4-35.0) L 10/23/18 04:32 [place] % (Auto) 14.7 % (0.0-7.3) H 10/23/18 04:32 Eos % (Auto) 0.1 % (0.0-4.3) 10/23/18 04:32 Baso % (Auto) 0.1 % (0.0-1.8) 10/23/18 04:32 Lymph # 0.7 K/mm3 (1.2-5.4) L 10/23/18 04:32 [place] # 1.0 K/mm3 (0.0-0.8) H 10/23/18 04:32 Eos # 0.0 K/mm3 (0.0-0.4) 10/23/18 04:32 Baso # 0.0 K/mm3 (0.0-0.1) 10/23/18 04:32 Seg Neutrophils % 74.9 % (40.0-70.0) H 10/23/18 04:32 Seg Neutrophils # 5.2 K/mm3 (1.8-7.7) 10/23/18 04:32 POC ABG pH 7.320 (7.35-7.45) L 10/26/18 04:57 POC ABG pCO2 32.8 (35-45) L 10/26/18 04:57 POC ABG pO2 84 (80-105) 10/26/18 04:57 POC ABG HCO3 16.9 (22-26 mml/L) 10/26/18 04:57 POC ABG Total CO2 18 (23-27mmol/L) 10/26/18 04:57 POC ABG O2 Sat 96 10/26/18 04:57 POC ABG Base Excess -9 ((-2) - (+3)mmol/L) 10/26/18 04:57 45 % 10/26/18 04:57 Sodium 144 mmol/L (137-145) 10/26/18 06:03 Potassium 4.0 mmol/L (3.6-5.0) D 10/26/18 06:03 Chloride 109.5 mmol/L (98-107) H 10/26/18 06:03 Carbon Dioxide 18 mmol/L (22-30) L 10/26/18 06:03 21 mmol/L 10/26/18 06:03 BUN 7 mg/dL (7-17) 10/26/18 06:03 0.9 mg/dL (0.7-1.2) 10/26/18 06:03 Estimated GFR > 60 ml/min 10/26/18 06:03 8 % 10/26/18 06:03 Glucose 128 mg/dL (65-100) H 10/26/18 06:03 Calcium 8.3 mg/dL (8.4-10.2) L D 10/26/18 06:03 Phosphorus 2.80 mg/dL (2.5-4.5) D 10/25/18 04:51 Magnesium 2.10 mg/dL (1.7-2.3) 10/24/18 05:34 0.40 mg/dL (0.1-1.2) 10/22/18 15:54 AST 25 units/L (5-40) 10/22/18 15:54 ALT 22 units/L (7-56) 10/22/18 15:54 129 units/L (35-129) 10/22/18 15:54 7.6 g/dL (6.3-8.2) 10/22/18 15:54 3.4 g/dL (3.9-5) L 10/22/18 15:54 0.8 % 10/22/18 15:54 10 units/L (13-60) L 10/22/18 15:54 Dulce (Yellow) 10/22/18 19:10 Clear (Clear) 10/22/18 19:10 5.0 (5.0-7.0) 10/22/18 19:10 Ur Specific [place] 1.018 (1.003-1.030) 10/22/18 19:10 30 mg/dl mg/dL (Negative) 10/22/18 19:10 Neg mg/dL (Negative) 10/22/18 19:10 Tr mg/dL (Negative) 10/22/18 19:10 Neg (Negative) 10/22/18 19:10 Neg (Negative) 10/22/18 19:10 Neg (Negative) 10/22/18 19:10 < 2.0 mg/dL (<2.0) 10/22/18 19:10 Ur Leukocyte Esterase Neg (Negative) 10/22/18 19:10 1.0 /HPF (0.0-6.0) 10/22/18 19:10 3.0 /HPF (0.0-6.0) 10/22/18 19:10 Active Medications - Current Medications Current Medications: Generic Name Dose Route Start Last Admin Trade Name Freq PRN Reason Stop Dose Admin Acetaminophen 650 mg 10/22/18 20:10 Tylenol PO Q4H PRN Pain MILD(1-3)/Fever >100.5/PORTER Albuterol 2.5 mg 10/22/18 20:14 10/26/18 01:44 Proventil IH 2.5 mg Q4HRT PRN Administration Shortness Of Breath Albuterol/Ipratropium 1 ampul 10/26/18 10:15 Duoneb *Not For Prn Use* IH Q6H RICK Budesonide 0.5 mg 10/23/18 08:00 10/26/18 07:22 Pulmicort IH 0.5 mg Q12HRT RICK Administration Guaifenesin 600 mg 10/22/18 22:00 10/25/18 21:07 Mucinex Er PO 600 mg BID RICK Administration Heparin Sodium (Porcine) 5,000 unit 10/22/18 22:00 10/25/18 21:13 Heparin SUB-Q 5,000 unit Q12HR RICK Administration Hydralazine HCl 10 mg 10/22/18 21:41 Apresoline IV Q4HR PRN Blood Pressure Metronidazole 500 mg in 100 mls @ 100 mls/hr 10/22/18 22:00 10/26/18 05:24 Flagyl 500 Mg/100 Ml IV 10/27/18 21:59 Not Given Q8HR RICK Protocol Piperacillin Sod/Tazobactam Sod 4.5 gm in 100 mls @ 200 mls/hr 10/24/18 14:00 10/26/18 05:22 Zosyn/Ns 4.5gm/100ml IV Not Given Q8HR RICK Potassium Chloride/Dextrose/Sod Cl 20 meq in 1,000 mls @ 100 mls/hr 10/25/18 09:00 10/25/18 23:11 D5w/0.45% Nacl/Kcl 20 Meq IV 100 mls/hr DIRECT RICK Administration Methylprednisolone Sodium Succinate 80 mg 10/26/18 06:00 Solu-Medrol IV Q8HR RICK Morphine Sulfate 2 mg 10/24/18 13:39 10/25/18 21:32 Morphine IV 2 mg Q4H PRN Administration Pain, Moderate (4-6) Ondansetron HCl 4 mg 10/24/18 10:05 10/25/18 17:26 Zofran IV 4 mg Q6H PRN Administration Nausea And Vomiting Oxycodone/Acetaminophen 1 tab 10/22/18 20:10 10/24/18 06:15 Percocet 5/325 PO 1 tab Q6H PRN Administration Pain, Moderate (4-6) Pantoprazole Sodium 40 mg 10/24/18 11:00 10/25/18 09:36 Protonix IV 40 mg QDAY RICK Administration Promethazine HCl 25 mg 10/22/18 20:10 10/22/18 21:21 Phenergan MD 25 mg Q6H PRN Administration Nausea And Vomiting Promethazine HCl 25 mg 10/25/18 10:34 10/25/18 20:00 Phenergan PO 25 mg Q6H PRN Administration Nausea And Vomiting Propranolol HCl 60 mg 10/23/18 10:00 10/25/18 09:37 Inderal La PO 60 mg DAILY RICK Administration Quetiapine Fumarate 200 mg 10/22/18 23:00 10/25/18 21:07 Seroquel PO 200 mg QHS RICK Administration Quetiapine Fumarate 100 mg 10/22/18 23:00 10/25/18 21:08 Seroquel PO 100 mg QHS RICK Administration Sodium Chloride 10 ml 10/22/18 22:00 10/25/18 21:14 Sodium Chloride Flush Syringe 10 Ml IV 10 ml BID RICK Administration Sodium Chloride 10 ml 10/22/18 20:10 10/24/18 18:32 Sodium Chloride Flush Syringe 10 Ml IV 10 ml PRN PRN Administration LINE FLUSH Nutrition/Malnutrition Assess - Dietary Evaluation Nutrition/Malnutrition Findings: Nutrition Notes Start: 10/23/18 17:03 Freq: Status: Active Protocol: Document 10/23/18 17:03 RM (Rec: 10/23/18 17:03 [id number]) Nutrition Notes 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 Garrick 19 points. Nutrition Intervention Revisit per MD consult or patient Sign Off request:
[2018-10-26] MEDS: PROTONIX IV SCH (10:16)
[2018-10-26] MEDS: MUCINEX ER PO SCH (10:18)
[2018-10-26] MEDS: INDERAL LA PO SCH (10:18)
[2018-10-26] MEDS: SODIUM CHLORIDE FLUSH SYRINGE 10 ML IV SCH (10:18)
--- NOTE | 2018-10-26 10:39 | Gastroenterology Progress Note ---
Assessment and Plan 1. ? SBO vs ileus - SBFT pending (for tomorrow); limit opiods, correct lytes as needed and ambulation encouraged. KUB this morning unchanged from previous results. + flatus. surgery following 2. Respiratory failure - on bipap currently with improved symptoms 3. History of subtotal colectomy 4. Nausea Subjective Date of service: 10/26/18 Principal diagnosis: n/v, abdominal pain Interval history: pt with respiratory distress yesterday evening and was placed on bipap which she remains on this morning. reports improved respiratory symptoms. less abd pain, still with nausea. no emesis. Objective - Exam Narrative Exam: Gen: on bipap, nad CV: RRR Lungs: decreased bs bilaterally Abd: soft, mild dist, hypoactive bs, nt - Constitutional Vitals: Temp Pulse Resp BP Pulse Ox 98.5 F 110 H 28 H 125/91 99 10/26/18 07:45 10/26/18 07:45 10/26/18 07:45 10/26/18 07:45 10/26/18 07:57 - Labs CBC & Chem 7: 10/26/18 06:03 10/26/18 06:03 Labs: Laboratory Results - last 24 hr 10/26/18 10/26/18 10/26/18 02:58 04:57 06:03 WBC 23.8 H RBC 4.81 Hgb 15.4 H Hct 46.1 H D MCV 96 MCH 32 MCHC 33 RDW 13.8 Plt Count 395 POC ABG pH 7.090 L 7.320 L POC ABG pCO2 65.0 H 32.8 L POC ABG pO2 76 L 84 POC ABG HCO3 19.7 16.9 POC ABG Total CO2 22 18 POC ABG O2 Sat 88 96 POC ABG Base Excess -10 -9 FiO2 50 45 Sodium Potassium Chloride Carbon Dioxide Anion Gap BUN Creatinine Estimated GFR BUN/Creatinine Ratio Glucose Calcium 10/26/18 06:03 WBC RBC Hgb Hct MCV MCH MCHC RDW Plt Count POC ABG pH POC ABG pCO2 POC ABG pO2 POC ABG HCO3 POC ABG Total CO2 POC ABG O2 Sat POC ABG Base Excess FiO2 Sodium 144 Potassium 4.0 D Chloride 109.5 H Carbon Dioxide 18 L Anion Gap 21 BUN 7 Creatinine 0.9 Estimated GFR > 60 BUN/Creatinine Ratio 8 Glucose 128 H Calcium 8.3 L D
--- NOTE | 2018-10-26 12:17 | Consultation ---
History of Present Illness Consult date: 10/26/18 Chief complaint: n/v diarrhea - History of present illness History of present illness: 73 yo F with hx of open subtotal colectomy and cholecystectomy presented to ER with several days of n/v, diarrhea. She was not having abdominal pain, f/c. Today she c/o LUQ soreness. No further n/v but she is having reflux and belching. Diarrhea is improved. Last BM yesterday. Denies flatus. No f/c. She was started on BIPAP today for acute shortness of breath and hypoxia. Past History Past Medical History: COPD, hypertension, other (Lupus, fibromyalgia, history of opioid dependence) Past Surgical History: cholecystectomy, hysterectomy, total hip replacement (left hip fracture 2016, irritated hardware repair 10/2017, colon surgery, renal surgery), bowel surgery (exlap, subtotal colectomy) Social history: (lives with ), smoking (former smoker) Family history: no significant family history Medications and Allergies Allergies Allergy/AdvReac Type Severity Reaction Status Date / Time Sulfa (Sulfonamide Allergy Intermediate Rash Verified 10/22/18 16:30 Antibiotics) metoclopramide HCl Allergy Dizziness Verified 10/22/18 16:30 [From Reglan] prochlorperazine Allergy NECK Verified 10/22/18 16:30 [From Compazine] STIFFNESS Home Medications Medication Instructions Recorded Confirmed Last Taken Type Ondansetron 4 mg PO Q6HR PRN 12/05/16 10/22/18 10/29/17 History Propranolol HCl [Propranolol HCl 60 mg PO DAILY 12/05/16 10/22/18 10/30/17 22:00 History ER] QUEtiapine [SEROquel] 300 mg PO DAILY 12/05/16 10/22/18 10/30/17 History Lasix TAB 40 mg PO PRN PRN 12/07/16 10/22/18 10/24/17 History Percocet 10/325 mg 1 tab PO PRN PRN 12/07/16 10/22/18 10/30/17 History Albuterol Sulfate [Albuterol 0.63% 0.63 mg IH TID PRN 10/22/17 10/22/18 10/29/17 History NEBS] Active Meds: Active Medications Acetaminophen (Tylenol) 650 mg PO Q4H PRN PRN Reason: Pain MILD(1-3)/Fever >100.5/PORTER Albuterol (Proventil) 2.5 mg IH Q4HRT PRN PRN Reason: Shortness Of Breath Last Admin: 10/26/18 01:44 Dose: 2.5 mg Documented by: Albuterol/Ipratropium (Duoneb *Not For Prn Use*) 1 ampul IH Q6HRT [facility] Last Admin: 10/26/18 11:58 Dose: 1 ampul Documented by: Budesonide (Pulmicort) 0.5 mg IH Q12HRT [facility] Last Admin: 10/26/18 07:22 Dose: 0.5 mg Documented by: Guaifenesin (Mucinex Er) 600 mg PO BID [facility] Last Admin: 10/26/18 10:18 Dose: 600 mg Documented by: Heparin Sodium (Porcine) (Heparin) 5,000 unit SUB-Q Q12HR [facility] Last Admin: 10/26/18 10:20 Dose: 5,000 unit Documented by: Hydralazine HCl (Apresoline) 10 mg IV Q4HR PRN PRN Reason: Blood Pressure Metronidazole (Flagyl 500 Mg/100 Ml) 500 mg in 100 mls @ 100 mls/hr IV Q8HR [facility]; Protocol Stop: 10/27/18 21:59 Last Admin: 10/26/18 05:24 Dose: Not Given Documented by: Piperacillin Sod/Tazobactam Sod (Zosyn/Ns 4.5gm/100ml) 4.5 gm in 100 mls @ 200 mls/hr IV Q8HR [facility] Last Admin: 10/26/18 05:22 Dose: Not Given Documented by: Dextrose/Sodium Chloride (D5/0.45ns) 1,000 mls @ 42 mls/hr IV DIRECT RICK Potassium Chloride 20 meq/ (Dextrose/Sodium Chloride) 1,010 mls @ 75 mls/hr IV DIRECT [facility] Methylprednisolone Sodium Succinate (Solu-Medrol) 80 mg IV Q8HR [facility] Morphine Sulfate (Morphine) 2 mg IV Q4H PRN PRN Reason: Pain, Moderate (4-6) Last Admin: 10/26/18 10:09 Dose: 2 mg Documented by: Ondansetron HCl (Zofran) 4 mg IV Q6H PRN PRN Reason: Nausea And Vomiting Last Admin: 10/25/18 17:26 Dose: 4 mg Documented by: Oxycodone/Acetaminophen (Percocet 5/325) 1 tab PO Q6H PRN PRN Reason: Pain, Moderate (4-6) Last Admin: 10/24/18 06:15 Dose: 1 tab Documented by: Pantoprazole Sodium (Protonix) 40 mg IV QDAY [facility] Last Admin: 10/26/18 10:16 Dose: 40 mg Documented by: Promethazine HCl (Phenergan) 25 mg MA Q6H PRN PRN Reason: Nausea And Vomiting Last Admin: 10/22/18 21:21 Dose: 25 mg Documented by: Promethazine HCl (Phenergan) 25 mg PO Q6H PRN PRN Reason: Nausea And Vomiting Last Admin: 10/25/18 20:00 Dose: 25 mg Documented by: Propranolol HCl (Inderal La) 60 mg PO DAILY [facility] Last Admin: 10/26/18 10:18 Dose: 60 mg Documented by: Quetiapine Fumarate (Seroquel) 200 mg PO QHS [facility] Last Admin: 10/25/18 21:07 Dose: 200 mg Documented by: Quetiapine Fumarate (Seroquel) 100 mg PO QHS [facility] Last Admin: 10/25/18 21:08 Dose: 100 mg Documented by: Sodium Chloride (Sodium Chloride Flush Syringe 10 Ml) 10 ml IV BID [facility] Last Admin: 10/26/18 10:18 Dose: 10 ml Documented by: Sodium Chloride (Sodium Chloride Flush Syringe 10 Ml) 10 ml IV PRN PRN PRN Reason: LINE FLUSH Last Admin: 10/24/18 18:32 Dose: 10 ml Documented by: Review of Systems All systems: negative (10 pt ROS performed and negative except for that listed in HPI) Exam Vital Signs Pulse Ox 95 10/22/18 15:21 Narrative exam: Gen: AAOx3. NAD ENT: on BIPAP. no scleral icterus or conjunctival pallor CV: s1, S2+ Resp; no audible wheezes Abd: soft, mildly distended, LUQ TTP. no r/r/g. well healed midline surgical scars Ext: no c/c/e Results - Labs 10/26/18 06:03 10/26/18 06:03 Abnormal lab results 10/26/18 10/26/18 10/26/18 Range/Units 02:58 04:57 06:03 WBC 23.8 H (4.5-11.0) K/mm3 Hgb 15.4 H (10.1-14.3) gm/dl Hct 46.1 H D (30.3-42.9) % POC ABG pH 7.090 L 7.320 L (7.35-7.45) POC ABG pCO2 65.0 H 32.8 L (35-45) POC ABG pO2 76 L (80-105) Chloride (98-107) mmol/L Carbon Dioxide (22-30) mmol/L Glucose (65-100) mg/dL POC Glucose (70-105) Calcium (8.4-10.2) mg/dL 10/26/18 10/26/18 Range/Units 06:03 11:52 WBC (4.5-11.0) K/mm3 Hgb (10.1-14.3) gm/dl Hct (30.3-42.9) % POC ABG pH (7.35-7.45) POC ABG pCO2 (35-45) POC ABG pO2 (80-105) Chloride 109.5 H (98-107) mmol/L Carbon Dioxide 18 L (22-30) mmol/L Glucose 128 H (65-100) mg/dL POC Glucose 117 H (70-105) Calcium 8.3 L D (8.4-10.2) mg/dL Diabetes panel 10/26/18 Range/Units 06:03 Sodium 144 (137-145) mmol/L Potassium 4.0 D (3.6-5.0) mmol/L Chloride 109.5 H (98-107) mmol/L Carbon Dioxide 18 L (22-30) mmol/L BUN 7 (7-17) mg/dL Creatinine 0.9 (0.7-1.2) mg/dL Glucose 128 H (65-100) mg/dL Calcium 8.3 L D (8.4-10.2) mg/dL Calcium panel 10/26/18 Range/Units 06:03 Calcium 8.3 L D (8.4-10.2) mg/dL Pituitary panel 10/26/18 Range/Units 06:03 Sodium 144 (137-145) mmol/L Potassium 4.0 D (3.6-5.0) mmol/L Chloride 109.5 H (98-107) mmol/L Carbon Dioxide 18 L (22-30) mmol/L BUN 7 (7-17) mg/dL Creatinine 0.9 (0.7-1.2) mg/dL Glucose 128 H (65-100) mg/dL Calcium 8.3 L D (8.4-10.2) mg/dL Adrenal panel 10/26/18 Range/Units 06:03 Sodium 144 (137-145) mmol/L Potassium 4.0 D (3.6-5.0) mmol/L Chloride 109.5 H (98-107) mmol/L Carbon Dioxide 18 L (22-30) mmol/L BUN 7 (7-17) mg/dL Creatinine 0.9 (0.7-1.2) mg/dL Glucose 128 H (65-100) mg/dL Calcium 8.3 L D (8.4-10.2) mg/dL - Imaging Abdominal x-ray: report reviewed, image reviewed CT scan - abdomen: report reviewed, image reviewed CT scan - pelvis: report reviewed, image reviewed Assessment and Plan 73 yo F with gastroenteritis, pSBO Very distended stomach on CT and abdominal xrays, may be cause for increased work of breathing and likely cause of LUQ discomfort Plan: 1. NPO 2. insert NGT - LIWS 3. strict I/Os 4. gently IVF 5. prn pain control 6. obstruction series in am 7. DVT ppx 8. SBFT pending per GI D/W Dr. Lepe Thank you, please call with questions
[2018-10-26] MEDS ORDERED: [UNRECOGNIZED DRUG - MIXTURE] IV SCH (12:30)
[2018-10-26] MEDS ORDERED: D5/0.45NS 1,000 ML IV SCH (13:00)
[2018-10-26] MEDS: SOLU-Medrol IV SCH ×3 (13:15→21:16)
--- NOTE | 2018-10-26 13:32 | Consultation ---
History of Present Illness Consult date: 10/26/18 Requesting physician: KIANA SOTO Reason for consult: hypoxemia, other (Hypercapnea and possible COPd exacerbation.) History of present illness: 73 y/o female with known COPD, admitted with nausea and vomiting several days ago. It appears that over the last 48 hours, oxygen requirement has increased and patient started having more difficulty in breathing. ABG done early am showing hypercapnea with mixed metabolic and respiratory acidosis. Placed on bipap and had some improvement in CO2 but still with some acidemia. Past History Past Medical History: COPD, hypertension, other (Lupus, fibromyalgia, history of opioid dependence) Past Surgical History: cholecystectomy, hysterectomy, total hip replacement (left hip fracture 2016, irritated hardware repair 10/2017, colon surgery, renal surgery) Social history: (lives with ), smoking (former smoker) Family history: no significant family history Medications and Allergies Allergies Allergy/AdvReac Type Severity Reaction Status Date / Time Sulfa (Sulfonamide Allergy Intermediate Rash Verified 10/22/18 16:30 Antibiotics) metoclopramide HCl Allergy Dizziness Verified 10/22/18 16:30 [From Reglan] prochlorperazine Allergy NECK Verified 10/22/18 16:30 [From Compazine] STIFFNESS Home Medications Medication Instructions Recorded Confirmed Last Taken Type Ondansetron 4 mg PO Q6HR PRN 12/05/16 10/22/18 10/29/17 History Propranolol HCl [Propranolol HCl 60 mg PO DAILY 12/05/16 10/22/18 10/30/17 22:00 History ER] QUEtiapine [SEROquel] 300 mg PO DAILY 12/05/16 10/22/18 10/30/17 History Lasix TAB 40 mg PO PRN PRN 12/07/16 10/22/18 10/24/17 History Percocet 10/325 mg 1 tab PO PRN PRN 12/07/16 10/22/18 10/30/17 History Albuterol Sulfate [Albuterol 0.63% 0.63 mg IH TID PRN 10/22/17 10/22/18 10/29/17 History NEBS] Active Meds: Active Medications Acetaminophen (Tylenol) 650 mg PO Q4H PRN PRN Reason: Pain MILD(1-3)/Fever >100.5/PORTER Albuterol (Proventil) 2.5 mg IH Q4HRT PRN PRN Reason: Shortness Of Breath Last Admin: 10/26/18 01:44 Dose: 2.5 mg Documented by: Albuterol/Ipratropium (Duoneb *Not For Prn Use*) 1 ampul IH Q6HRT [facility] Last Admin: 10/26/18 11:58 Dose: 1 ampul Documented by: Budesonide (Pulmicort) 0.5 mg IH Q12HRT [facility] Last Admin: 10/26/18 07:22 Dose: 0.5 mg Documented by: Guaifenesin (Mucinex Er) 600 mg PO BID [facility] Last Admin: 10/26/18 10:18 Dose: 600 mg Documented by: Heparin Sodium (Porcine) (Heparin) 5,000 unit SUB-Q Q12HR [facility] Last Admin: 10/26/18 10:20 Dose: 5,000 unit Documented by: Hydralazine HCl (Apresoline) 10 mg IV Q4HR PRN PRN Reason: Blood Pressure Metronidazole (Flagyl 500 Mg/100 Ml) 500 mg in 100 mls @ 100 mls/hr IV Q8HR [facility]; Protocol Stop: 10/27/18 21:59 Last Admin: 10/26/18 13:14 Dose: 100 mls/hr Documented by: Piperacillin Sod/Tazobactam Sod (Zosyn/Ns 4.5gm/100ml) 4.5 gm in 100 mls @ 200 mls/hr IV Q8HR [facility] Last Admin: 10/26/18 13:14 Dose: 200 mls/hr Documented by: Dextrose/Sodium Chloride (D5/0.45ns) 1,000 mls @ 42 mls/hr IV DIRECT [facility] Potassium Chloride 20 meq/ (Dextrose/Sodium Chloride) 1,010 mls @ 75 mls/hr IV DIRECT [facility] Methylprednisolone Sodium Succinate (Solu-Medrol) 80 mg IV Q8HR [facility] Morphine Sulfate (Morphine) 2 mg IV Q4H PRN PRN Reason: Pain, Moderate (4-6) Last Admin: 10/26/18 10:09 Dose: 2 mg Documented by: Ondansetron HCl (Zofran) 4 mg IV Q6H PRN PRN Reason: Nausea And Vomiting Last Admin: 10/25/18 17:26 Dose: 4 mg Documented by: Oxycodone/Acetaminophen (Percocet 5/325) 1 tab PO Q6H PRN PRN Reason: Pain, Moderate (4-6) Last Admin: 10/24/18 06:15 Dose: 1 tab Documented by: Pantoprazole Sodium (Protonix) 40 mg IV QDAY [facility] Last Admin: 10/26/18 10:16 Dose: 40 mg Documented by: Promethazine HCl (Phenergan) 25 mg MA Q6H PRN PRN Reason: Nausea And Vomiting Last Admin: 10/22/18 21:21 Dose: 25 mg Documented by: Promethazine HCl (Phenergan) 25 mg PO Q6H PRN PRN Reason: Nausea And Vomiting Last Admin: 10/25/18 20:00 Dose: 25 mg Documented by: Propranolol HCl (Inderal La) 60 mg PO DAILY [facility] Last Admin: 10/26/18 10:18 Dose: 60 mg Documented by: Quetiapine Fumarate (Seroquel) 200 mg PO QHS [facility] Last Admin: 10/25/18 21:07 Dose: 200 mg Documented by: Quetiapine Fumarate (Seroquel) 100 mg PO QHS [facility] Last Admin: 10/25/18 21:08 Dose: 100 mg Documented by: Sodium Chloride (Sodium Chloride Flush Syringe 10 Ml) 10 ml IV BID [facility] Last Admin: 10/26/18 10:18 Dose: 10 ml Documented by: Sodium Chloride (Sodium Chloride Flush Syringe 10 Ml) 10 ml IV PRN PRN PRN Reason: LINE FLUSH Last Admin: 10/24/18 18:32 Dose: 10 ml Documented by: Review of Systems All systems: negative Physical Examination Vital signs: Vital Signs Pulse Ox 95 10/22/18 15:21 General appearance: alert (eyes are closed on bipap but nods to answer questions apporpriately), appears uncomfortable ENT: other (on bipap full face mask) Neck: supple Effort: mildly labored Ascultation: Bilateral: diminished breath sounds (hardly any air movement) Percussion: Bilateral: not dull Gastrointestinal: other (distended, slightly firm) Extremities: no edema Results - Laboratory Findings CBC and BMP: 10/26/18 06:03 10/26/18 06:03 ABG POC ABG pH 7.320 (7.35-7.45) L 10/26/18 04:57 POC ABG pCO2 32.8 (35-45) L 10/26/18 04:57 POC ABG pO2 84 (80-105) 10/26/18 04:57 POC ABG HCO3 16.9 (22-26 mml/L) 10/26/18 04:57 POC ABG Total CO2 18 (23-27mmol/L) 10/26/18 04:57 POC ABG O2 Sat 96 10/26/18 04:57 Abnormal lab findings: Abnormal Labs 10/22/18 10/22/18 10/22/18 15:31 15:54 15:54 WBC 11.5 H RBC 5.35 H Hgb 17.4 H Hct 50.3 H MCV MCH 33 H MCHC 35 H Lymph % (Auto) 12.6 L [place] % (Auto) 14.8 H Lymph # [place] # 1.7 H Seg Neutrophils % 72.5 H Seg Neutrophils # 8.3 H POC ABG pH POC ABG pCO2 POC ABG pO2 Sodium 134 L Potassium Chloride 88.1 L Carbon Dioxide BUN 51 H Creatinine 2.1 H Glucose 166 H POC Glucose Calcium Phosphorus Albumin 3.4 L Lipase 10 L 10/23/18 10/23/18 10/23/18 04:32 04:32 10:53 WBC RBC Hgb Hct MCV MCH MCHC Lymph % (Auto) 10.2 L [place] % (Auto) 14.7 H Lymph # 0.7 L [place] # 1.0 H Seg Neutrophils % 74.9 H Seg Neutrophils # POC ABG pH POC ABG pCO2 POC ABG pO2 Sodium Potassium 3.1 L D 3.5 L Chloride Carbon Dioxide BUN 41 H 37 H Creatinine Glucose 111 H 110 H POC Glucose Calcium 8.1 L 8.1 L Phosphorus Albumin Lipase 10/24/18 10/24/18 10/25/18 05:34 05:34 04:51 WBC RBC Hgb Hct MCV MCH MCHC Lymph % (Auto) [place] % (Auto) Lymph # [place] # Seg Neutrophils % Seg Neutrophils # POC ABG pH POC ABG pCO2 POC ABG pO2 Sodium Potassium 3.2 L 3.1 L Chloride 109.8 H 114.2 H Carbon Dioxide 17 L D BUN 21 H Creatinine Glucose 134 H 171 H POC Glucose Calcium 7.7 L 7.0 L Phosphorus 0.80 L* Albumin Lipase 10/25/18 10/26/18 10/26/18 06:07 02:58 04:57 WBC RBC Hgb Hct MCV 99 H MCH 33 H MCHC Lymph % (Auto) [place] % (Auto) Lymph # [place] # Seg Neutrophils % Seg Neutrophils # POC ABG pH 7.090 L 7.320 L POC ABG pCO2 65.0 H 32.8 L POC ABG pO2 76 L Sodium Potassium Chloride Carbon Dioxide BUN Creatinine Glucose POC Glucose Calcium Phosphorus Albumin Lipase 10/26/18 10/26/18 10/26/18 06:03 06:03 11:52 WBC 23.8 H RBC Hgb 15.4 H Hct 46.1 H D MCV MCH MCHC Lymph % (Auto) [place] % (Auto) Lymph # [place] # Seg Neutrophils % Seg Neutrophils # POC ABG pH POC ABG pCO2 POC ABG pO2 Sodium Potassium Chloride 109.5 H Carbon Dioxide 18 L BUN Creatinine Glucose 128 H POC Glucose 117 H Calcium 8.3 L D Phosphorus Albumin Lipase - Diagnostic Findings Chest x-ray: image reviewed (CXR shows small crowded lung varela, could be an expiratory film or could be from large dilated loops of bowel not allowing for full contraction of diaphragm) Assessment and Plan 73 y/o female with bowel obstruction and now acute respiratory failure with hypercapnea, likely multifactorial from pain medications, anti-psychotic therapy and inability to take deep breaths for ventilation. 1. Patient needs abdomen decompressed or breathing will continue to be compromised. Bipap could actually be adding to this affect but bowel was dilated yesterday and appears worse today. 2. She very well could be in COPD exacerbation. Agree with steroid therapy. Continue pulmicort and scheduled brovana 3. As long as mental status remains stable, can use bipap, would not require intubation at this time. Will continue to follow along with you.
--- NOTE | 2018-10-26 13:53 | Event Note ---
Date: 10/26/18 Called by Nurse. worse respiratory distress, very lethargic. Will get stat ABG, transfer to ICU.
[2018-10-26] MEDS ORDERED: NACL 0.9% 1000 ML 1,000 ML ONE (15:10)
[2018-10-26] MEDS ORDERED: NACL 0.9% 1000 ML 1,000 ML IV ONE (15:13)
[2018-10-26] MEDS ORDERED: LEVOPHED DRIP 4 MG/NS 250 ML 4 MG/250 ML BAG IV SCH (16:00)
--- NOTE | 2018-10-26 16:27 | Progress Note ---
Assessment and Plan - Patient Problems (1) Acute renal failure Current Visit: Yes Status: Acute Plan to address problem: Prerenal azotemia secondary to volume depletion which had improved. Concerned about worsening kidney function with current hypotension status post CPR. Follow-up electrolytes and renal function in the morning (2) Hypokalemia Current Visit: Yes Status: Acute Plan to address problem: Potassium had improved. Follow potassium in the morning (3) Abdominal distention, non-gaseous Current Visit: Yes Status: Acute Plan to address problem: Possible partial small bowel obstruction. General surgery on the case. Patient with NG tube to low intermittent wall suction. (4) Acute respiratory failure with hypoxia Current Visit: Yes Status: Acute Plan to address problem: Status post intubation. Now in Intensive care unit. Management by pulmonary (5) Intractable nausea and vomiting Current Visit: Yes Status: Acute Plan to address problem: Improved (6) Hypotension Current Visit: Yes Status: Acute Plan to address problem: Continue volume resuscitation and vasopressors maintaining mean arterial pressure more than 65. Subjective Date of service: 10/26/18 Principal diagnosis: n/v, abdominal pain Objective - Vital Signs Vital signs: Vital Signs - 12hr 10/26/18 10/26/18 10/26/18 07:23 07:24 07:35 Temperature Pulse Rate 111 H Pulse Rate [ 111 H 109 H Anterior Bilateral] Respiratory 25 H Rate Respiratory 28 H 20 Rate [Anterior Bilateral] Blood Pressure O2 Sat by Pulse 99 Oximetry 10/26/18 10/26/18 10/26/18 07:45 07:57 11:56 Temperature 98.5 F 99.1 F Pulse Rate 110 H 117 H Pulse Rate [ Anterior Bilateral] Respiratory 28 H Rate Respiratory Rate [Anterior Bilateral] Blood Pressure 125/91 113/73 O2 Sat by Pulse 99 99 96 Oximetry 10/26/18 10/26/18 10/26/18 12:00 12:18 12:59 Temperature 98.8 F Pulse Rate 97 H Pulse Rate [ 104 H 104 H Anterior Bilateral] Respiratory 32 H Rate Respiratory 32 H 24 Rate [Anterior Bilateral] Blood Pressure 106/85 O2 Sat by Pulse 95 Oximetry 10/26/18 10/26/18 10/26/18 13:47 13:51 14:02 Temperature 98.6 F 98.5 F Pulse Rate 110 H 76 91 H Pulse Rate [ Anterior Bilateral] Respiratory 34 H 32 H 32 H Rate Respiratory Rate [Anterior Bilateral] Blood Pressure 147/55 O2 Sat by Pulse 99 98 98 Oximetry 10/26/18 10/26/18 10/26/18 14:20 14:30 14:40 Temperature Pulse Rate 81 97 H 95 H Pulse Rate [ Anterior Bilateral] Respiratory 30 H 29 H Rate Respiratory Rate [Anterior Bilateral] Blood Pressure 84/67 84/67 O2 Sat by Pulse Oximetry 10/26/18 10/26/18 10/26/18 14:50 15:00 15:10 Temperature 97.7 F Pulse Rate 94 H 95 H 93 H Pulse Rate [ Anterior Bilateral] Respiratory 24 29 H 27 H Rate Respiratory Rate [Anterior Bilateral] Blood Pressure 68/43 81/34 O2 Sat by Pulse 97 99 100 Oximetry 10/26/18 10/26/18 15:20 15:30 Temperature Pulse Rate 93 H 94 H Pulse Rate [ Anterior Bilateral] Respiratory 26 H 24 Rate Respiratory Rate [Anterior Bilateral] Blood Pressure 99/42 97/46 O2 Sat by Pulse Oximetry - Lab 10/26/18 06:03 10/26/18 06:03 Most recent lab results Calcium 8.3 mg/dL (8.4-10.2) L D 10/26/18 06:03 Phosphorus 2.80 mg/dL (2.5-4.5) D 10/25/18 04:51 Magnesium 2.10 mg/dL (1.7-2.3) 10/24/18 05:34 Medications & Allergies - Medications Allergies/Adverse Reactions: Allergies Sulfa (Sulfonamide Antibiotics) Allergy (Intermediate, Verified 10/22/18 16:30) Rash metoclopramide HCl [From Reglan] Allergy (Verified 10/22/18 16:30) Dizziness prochlorperazine [From Compazine] Allergy (Verified 10/22/18 16:30) NECK STIFFNESS Home Medications: Home Medications Medication Instructions Recorded Confirmed Last Taken Type Ondansetron 4 mg PO Q6HR PRN 12/05/16 10/22/18 10/29/17 History Propranolol HCl [Propranolol HCl 60 mg PO DAILY 12/05/16 10/22/18 10/30/17 22:00 History ER] QUEtiapine [SEROquel] 300 mg PO DAILY 12/05/16 10/22/18 10/30/17 History Lasix TAB 40 mg PO PRN PRN 07/12/1710/22/18 10/24/17 History Percocet 10/325 mg 1 tab PO PRN PRN 12/07/16 10/22/18 10/30/17 History Albuterol Sulfate [Albuterol 0.63% 0.63 mg IH TID PRN 10/22/17 10/22/18 10/29/17 History NEBS] Active Medications: Generic Name Dose Route Start Last Admin Trade Name Freq PRN Reason Stop Dose Admin Acetaminophen 650 mg 10/22/18 20:10 Tylenol PO Q4H PRN Pain MILD(1-3)/Fever >100.5/PORTER Albuterol 2.5 mg 10/22/18 20:14 10/26/18 01:44 Proventil IH 2.5 mg Q4HRT PRN Administration Shortness Of Breath Albuterol/Ipratropium 1 ampul 10/26/18 10:15 10/26/18 11:58 Duoneb *Not For Prn Use* IH 1 ampul Q6HRT [facility] Administration Budesonide 0.5 mg 10/23/18 08:00 10/26/18 07:22 Pulmicort IH 0.5 mg Q12HRT [facility] Administration Guaifenesin 600 mg 10/22/18 22:00 10/26/18 10:18 Mucinex Er PO 600 mg BID [facility] Administration Heparin Sodium (Porcine) 5,000 unit 10/22/18 22:00 10/26/18 10:20 Heparin SUB-Q 5,000 unit Q12HR [facility] Administration Hydralazine HCl 10 mg 10/22/18 21:41 Apresoline IV Q4HR PRN Blood Pressure Metronidazole 500 mg in 100 mls @ 100 mls/hr 10/22/18 22:00 10/26/18 13:14 Flagyl 500 Mg/100 Ml IV 10/27/18 21:59 100 mls/hr Q8HR [facility] Administration Protocol Piperacillin Sod/Tazobactam Sod 4.5 gm in 100 mls @ 200 mls/hr 10/24/18 14:00 10/26/18 13:14 Zosyn/Ns 4.5gm/100ml IV 200 mls/hr Q8HR [facility] Administration Potassium Chloride 20 meq/ 1,010 mls @ 75 mls/hr 10/26/18 12:30 Dextrose/Sodium Chloride IV DIRECT [facility] Sodium Chloride 1,000 mls @ 0 mls/hr 10/26/18 15:12 Nacl 0.9% 1000 Ml IV 10/27/18 15:13 DIRECT [facility] As Directed Norepinephrine 4 mg in 250 mls @ 7.5 mls/hr 10/26/18 16:00 Levophed Drip 4 Mg/Ns 250 Ml IV TITR [facility] Protocol 2 MCG/MIN Methylprednisolone Sodium Succinate 80 mg 10/26/18 06:00 10/26/18 14:00 Solu-Medrol IV 80 mg Q8HR [facility] Administration Metoprolol Tartrate 2.5 mg 10/26/18 18:00 Lopressor IV Q6HR [facility] Morphine Sulfate 2 mg 10/24/18 13:39 10/26/18 10:09 Morphine IV 2 mg Q4H PRN Administration Pain, Moderate (4-6) Ondansetron HCl 4 mg 10/24/18 10:05 10/25/18 17:26 Zofran IV 4 mg Q6H PRN Administration Nausea And Vomiting Oxycodone/Acetaminophen 1 tab 10/22/18 20:10 10/24/18 06:15 Percocet 5/325 PO 1 tab Q6H PRN Administration Pain, Moderate (4-6) Pantoprazole Sodium 40 mg 10/24/18 11:00 10/26/18 10:16 Protonix IV 40 mg QDAY [facility] Administration Promethazine HCl 25 mg 10/22/18 20:10 10/22/18 21:21 Phenergan [place] 25 mg Q6H PRN Administration Nausea And Vomiting Sodium Chloride 10 ml 10/22/18 22:00 10/26/18 10:18 Sodium Chloride Flush Syringe 10 Ml IV 10 ml BID [facility] Administration Sodium Chloride 10 ml 10/22/18 20:10 10/24/18 18:32 Sodium Chloride Flush Syringe 10 Ml IV 10 ml PRN PRN Administration LINE FLUSH
[2018-10-26] MEDS: NACL 0.9% 1000 ML 1,000 ML IV SCH ×4 (16:30→18:57)
--- NOTE | 2018-10-26 16:46 | XRay Report ---
PROCEDURE: XR CHEST 1V AP TECHNIQUE: Chest radiograph single view. HISTORY: ETT placement and PICC placement COMPARISONS: Chest radiograph performed on 10/26/2018 . FINDINGS: Heart: Normal. Mediastinum/Vessels: Normal. Lungs/Pleural space: Normal. Bony thorax: Unchanged small left pleural effusion with associated atelectasis or infiltrate. Life support devices: Endotracheal tube with tip in the lower trachea, just above the rekha. Enteric tube with tip below the level of the film, likely in the stomach. Right upper extremity PICC line wi th tip in the superior vena cava. IMPRESSION: Endotracheal tube with tip in the lower trachea, just above the rekha. Right upper extremity PICC line with tip in the superior vena cava. Unchanged small left pleural effusion with associated atelectasis or infiltrate. This document is electronically signed by Violeta Campo MD., Oct 26 2018 04:44:30 PM ET
[2018-10-26 18:13] LABS: Calcium 7.6 mg/dL (8.4-10.2)
[2018-10-26] MEDS: LOPRESSOR IV SCH (18:17)
[2018-10-26] MEDS ORDERED: MAGNESIUM SULFATE 4GM/100ML 4 GM/100 ML BAG IV ONE (19:00)
[2018-10-26] MEDS: KCL 20MEQ/100ML 20 MEQ/100 ML BAG IV SCH ×2 (20:27→21:48)
[2018-10-26] MEDS: ATIVAN IV PRN (23:14)
[2018-10-26] MEDS ORDERED: D50W (25GM) Syringe IV PRN (23:40)
[2018-10-27] MEDS: MUCINEX ER PO SCH ×2 (00:01→09:18)
[2018-10-27] MEDS: SODIUM CHLORIDE FLUSH SYRINGE 10 ML IV SCH ×3 (00:01→21:00)
[2018-10-27] MEDS: LOPRESSOR IV SCH ×5 (00:06→21:10)
[2018-10-27 02:06] LABS: Calcium 7.1 mg/dL (8.4-10.2)
[2018-10-27] MEDS: DUONEB *Not for PRN Use IH SCH ×4 (02:32→19:22)
[2018-10-27] MEDS: MORPHINE IV PRN ×5 (02:37→20:57)
[2018-10-27 05:43] LABS: Hematocrit 44.4 % (30.3-42.9); Hemoglobin 14.7 gm/dl (10.1-14.3); Mean Corpuscular HGB Conc 33 % (30-34); Mean Corpuscular Volume 96 fl (79-97); Platelet Count 345 K/mm3 (140-440); Red Blood Count 4.62 M/mm3 (3.65-5.03); Red Cell Distribution Width 14.2 % (13.2-15.2)
[2018-10-27] MEDS: ZOSYN/NS 4.5GM/100ML 4.5 GM/100 ML VIAL IV SCH ×3 (05:52→21:00)
[2018-10-27] MEDS: SOLU-Medrol IV SCH ×3 (05:52→20:59)
[2018-10-27] MEDS: FLAGYL 500 MG/100 ML 500 MG/100 ML BAG IV SCH ×2 (05:53→13:30)
[2018-10-27 06:00] LABS: Calcium 7.7 mg/dL (8.4-10.2)
[2018-10-27] MEDS: PULMICORT IH SCH ×2 (07:12→19:22)
--- NOTE | 2018-10-27 09:08 | Progress Note ---
Assessment and Plan Assessment and plan: Patient is 73-year-old female with history of hypertension, lupus, fibromyalgia, COPD, opioid dependence (follows Dr. Felix Muñiz at pain clinic) who presented to [facility] ED with complaints of intractable nausea, vomiting, diarrhea for 3 days. On initial presentation to the ED she was found to be tachycardiac with heart rate 113 BPM, leukocytosis with WBC 11.5, elevated BUN/Cr 51/2.1. Patient has history of COPD and at baseline does not require home oxygen use. She was admitted to [facility]. GI was consulted, she was evaluated. CT Abdomen revealed partial SBO versus ileus therefore surgeon consulted. Also patient became more short of breath, placed on BIPAP with no improvement then intubated 10/26/18 for acute resp failure and transferred to ICU. SIRS Acute exacerbation COPD Acute hypoxic respiratory failure, now intubated Hypertension Lupus Fibromyalgia History of opioid dependence ADWOA due to vasomotor nephropathy, now resolved leukocytosis Plan: Continue supportive care Pulmonology following CT Abd shows SBO vs ileus: Consulted Surgeon Continue Zosyn and Flagyl Monitor BP IV hydralazine when necessary Scheduled Duo Nebs and Pulmicort; albuterol when necessary IVF GI following Nephrology following DVT PPX on heparin discussed with patient and at bedside History Interval history: Shortness of breath worse yesterday, intubate Abdominal pain nausea- has history of chronic nausea Hospitalist Physical - Physical exam Narrative exam: Gen: Not in acute distress, lying in bed, HEENT: Normocephalic, atraumatic Neck: supple, no JVD Heart: S1 and S2 reg, no murmurs, rubs or gallop Lungs: Bilateral rhonchi, Abd: soft, mild tender, no rebound tenderness, non distended, normal BS Ext: No edema, no clubbing, no cyanosis, Neuro: intubated, Awake,alert, oriented x 3, moves all ext, non focal - Constitutional Vitals: Temp Pulse Resp BP Pulse Ox 97.9 F 110 H 29 H 119/59 98 10/27/18 08:00 10/27/18 08:30 10/27/18 08:30 10/27/18 08:30 10/27/18 08:30 Results - Labs CBC & Chem 7: 10/27/18 05:00 10/27/18 05:00 Labs: Laboratory Last Values WBC 22.5 K/mm3 (4.5-11.0) H 10/27/18 05:00 RBC 4.62 M/mm3 (3.65-5.03) 10/27/18 05:00 Hgb 14.7 gm/dl (10.1-14.3) H 10/27/18 05:00 Hct 44.4 % (30.3-42.9) H 10/27/18 05:00 MCV 96 fl (79-97) 10/27/18 05:00 MCH 32 pg (28-32) 10/27/18 05:00 MCHC 33 % (30-34) 10/27/18 05:00 RDW 14.2 % (13.2-15.2) 10/27/18 05:00 Plt Count 345 K/mm3 (140-440) 10/27/18 05:00 Lymph % (Auto) 10.2 % (13.4-35.0) L 10/23/18 04:32 [place] % (Auto) 14.7 % (0.0-7.3) H 10/23/18 04:32 Eos % (Auto) 0.1 % (0.0-4.3) 10/23/18 04:32 Baso % (Auto) 0.1 % (0.0-1.8) 10/23/18 04:32 Lymph # 0.7 K/mm3 (1.2-5.4) L 10/23/18 04:32 [place] # 1.0 K/mm3 (0.0-0.8) H 10/23/18 04:32 Eos # 0.0 K/mm3 (0.0-0.4) 10/23/18 04:32 Baso # 0.0 K/mm3 (0.0-0.1) 10/23/18 04:32 Seg Neutrophils % 74.9 % (40.0-70.0) H 10/23/18 04:32 Seg Neutrophils # 5.2 K/mm3 (1.8-7.7) 10/23/18 04:32 POC ABG pH 7.304 (7.35-7.45) L 10/27/18 05:16 POC ABG pCO2 37.6 (35-45) 10/26/18 17:32 POC ABG pO2 116 (80-105) H 10/27/18 05:16 POC ABG HCO3 14.6 (22-26 mml/L) 10/27/18 05:16 POC ABG Total CO2 15 (23-27mmol/L) 10/27/18 05:16 POC ABG O2 Sat 98 10/27/18 05:16 POC ABG Base Excess -12 ((-2) - (+3)mmol/L) 10/27/18 05:16 50 % 10/27/18 05:16 Sodium 145 mmol/L (137-145) 10/27/18 05:00 Potassium 3.7 mmol/L (3.6-5.0) 10/27/18 05:00 Chloride 118.4 mmol/L (98-107) H 10/27/18 05:00 Carbon Dioxide 16 mmol/L (22-30) L 10/27/18 05:00 14 mmol/L 10/27/18 05:00 BUN 17 mg/dL (7-17) 10/27/18 05:00 1.1 mg/dL (0.7-1.2) 10/27/18 05:00 Estimated GFR 49 ml/min 10/27/18 05:00 15 % 10/27/18 05:00 Glucose 123 mg/dL (65-100) H 10/27/18 05:00 POC Glucose 95 (70-105) 10/27/18 05:38 Lactic Acid 1.60 mmol/L (0.7-2.0) 10/26/18 15:03 Calcium 7.7 mg/dL (8.4-10.2) L 10/27/18 05:00 Phosphorus 2.60 mg/dL (2.5-4.5) D 10/27/18 05:00 Magnesium 2.60 mg/dL (1.7-2.3) H 10/27/18 05:00 0.40 mg/dL (0.1-1.2) 10/22/18 15:54 AST 25 units/L (5-40) 10/22/18 15:54 ALT 22 units/L (7-56) 10/22/18 15:54 129 units/L (35-129) 10/22/18 15:54 7.6 g/dL (6.3-8.2) 10/22/18 15:54 3.4 g/dL (3.9-5) L 10/22/18 15:54 0.8 % 10/22/18 15:54 10 units/L (13-60) L 10/22/18 15:54 [place] (Yellow) 10/22/18 19:10 Clear (Clear) 10/22/18 19:10 5.0 (5.0-7.0) 10/22/18 19:10 Ur Specific [place] 1.018 (1.003-1.030) 10/22/18 19:10 30 mg/dl mg/dL (Negative) 10/22/18 19:10 Neg mg/dL (Negative) 10/22/18 19:10 Tr mg/dL (Negative) 10/22/18 19:10 Neg (Negative) 10/22/18 19:10 Neg (Negative) 10/22/18 19:10 Neg (Negative) 10/22/18 19:10 < 2.0 mg/dL (<2.0) 10/22/18 19:10 Ur Leukocyte Esterase Neg (Negative) 10/22/18 19:10 1.0 /HPF (0.0-6.0) 10/22/18 19:10 3.0 /HPF (0.0-6.0) 10/22/18 19:10 Active Medications - Current Medications Current Medications: Generic Name Dose Route Start Last Admin Trade Name Freq PRN Reason Stop Dose Admin Acetaminophen 650 mg 10/22/18 20:10 Tylenol PO Q4H PRN Pain MILD(1-3)/Fever >100.5/PORTER Albuterol 2.5 mg 10/22/18 20:14 10/26/18 01:44 Proventil IH 2.5 mg Q4HRT PRN Administration Shortness Of Breath Albuterol/Ipratropium 1 ampul 10/26/18 10:15 10/27/18 07:12 Duoneb *Not For Prn Use* IH 1 ampul Q6HRT RICK Administration Budesonide 0.5 mg 10/23/18 08:00 10/27/18 07:12 Pulmicort IH 0.5 mg Q12HRT RICK Administration Dextrose 50 ml 10/26/18 23:40 10/27/18 00:20 D50w (25gm) Syringe IV 50 ml PRN PRN Administration Hypoglycemia Guaifenesin 600 mg 10/22/18 22:00 10/27/18 00:01 Mucinex Er PO Not Given BID RICK Heparin Sodium (Porcine) 5,000 unit 10/22/18 22:00 10/26/18 21:17 Heparin SUB-Q 5,000 unit Q12HR RICK Administration Hydralazine HCl 10 mg 10/22/18 21:41 Apresoline IV Q4HR PRN Blood Pressure Metronidazole 500 mg in 100 mls @ 100 mls/hr 10/22/18 22:00 10/27/18 05:53 Flagyl 500 Mg/100 Ml IV 10/27/18 21:59 100 mls/hr Q8HR RICK Administration Protocol Piperacillin Sod/Tazobactam Sod 4.5 gm in 100 mls @ 200 mls/hr 10/24/18 14:00 10/27/18 05:52 Zosyn/Ns 4.5gm/100ml IV 200 mls/hr Q8HR RICK Administration Sodium Chloride 1,000 mls @ 0 mls/hr 10/26/18 15:12 10/26/18 17:33 Nacl 0.9% 1000 Ml IV 10/27/18 15:13 999 mls/hr DIRECT RICK Administration As Directed Norepinephrine 4 mg in 250 mls @ 7.5 mls/hr 10/26/18 16:00 10/26/18 19:15 Levophed Drip 4 Mg/Ns 250 Ml IV 0 mcg/min TITR RICK 0 mls/hr Titration Protocol 2 MCG/MIN Sodium Chloride 1,000 mls @ 100 mls/hr 10/26/18 17:00 10/26/18 18:57 Nacl 0.9% 1000 Ml IV 100 mls/hr DIRECT RICK Administration Lorazepam 0.5 mg 10/26/18 22:44 10/26/18 23:14 Ativan IV 0.5 mg Q4H PRN Administration Anxiety Methylprednisolone Sodium Succinate 80 mg 10/26/18 06:00 10/27/18 05:52 Solu-Medrol IV 80 mg Q8HR RICK Administration Metoprolol Tartrate 2.5 mg 10/26/18 18:00 10/27/18 05:53 Lopressor IV 2.5 mg Q6HR RICK Administration Morphine Sulfate 2 mg 10/24/18 13:39 10/27/18 08:23 Morphine IV 2 mg Q4H PRN Administration Pain, Moderate (4-6) Ondansetron HCl 4 mg 10/24/18 10:05 10/25/18 17:26 Zofran IV 4 mg Q6H PRN Administration Nausea And Vomiting Oxycodone/Acetaminophen 1 tab 10/22/18 20:10 10/24/18 06:15 Percocet 5/325 PO 1 tab Q6H PRN Administration Pain, Moderate (4-6) Pantoprazole Sodium 40 mg 10/24/18 11:00 10/26/18 10:16 Protonix IV 40 mg QDAY RICK Administration Promethazine HCl 25 mg 10/22/18 20:10 10/22/18 21:21 Phenergan [place] 25 mg Q6H PRN Administration Nausea And Vomiting Sodium Chloride 10 ml 10/22/18 22:00 10/27/18 00:01 Sodium Chloride Flush Syringe 10 Ml IV 10 ml BID RICK Administration Sodium Chloride 10 ml 10/22/18 20:10 10/24/18 18:32 Sodium Chloride Flush Syringe 10 Ml IV 10 ml PRN PRN Administration LINE FLUSH Nutrition/Malnutrition Assess - Dietary Evaluation Nutrition/Malnutrition Findings: Nutrition Notes Start: 10/23/18 17:03 Freq: Status: Active Protocol: Document 10/23/18 17:03 (Rec: 10/23/18 17:03 [id number]) Nutrition Notes 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 Garrick 19 points. Nutrition Intervention Revisit per MD consult or patient Sign Off request:
--- NOTE | 2018-10-27 09:08 | XRay Report ---
ABDOMINAL SERIES: History: Small bowel obstruction. A nasogastric tube has been inserted since 10/26/18 which terminates in the mid stomach. Decreased dilatation of bowel loops is demonstrated. There appear to be a few borderline dilated and edematous small bowel loops in the upper abdomen. There is trace gas in the colon. No obvious free air. The AP chest view is slightly oblique to the left. There appears to be a partial right mainstem bronchus intubation. Mild atelectatic changes are suspected in the left lower lobe. The left upper lobe and right lung are generally clear. Heart size is within normal limits. IMPRESSION: Improvement in dilated bowel since placement of the nasogastric tube. A right mainstem bronchus intubation is suspected with atelectasis in the left lower lobe. Consider retraction of the endotracheal tube by 3-4 cm. Please correlate with the image. These findings were discussed with the patient's RN, Светлана, at 0810 hours.
--- NOTE | 2018-10-27 09:41 | Gastroenterology Progress Note ---
Assessment and Plan 1. Abdominal distention, n/v - ileus vs SBO based on imaging; NG in place and pt has had improved abdominal distention since that time. f/u X-ray showed improvement in small bowel dilatation as well. hold off on small bowel study at this time given respiratory condition and cont current supportive care/NG tube 2. Respiratory failure Subjective Date of service: 10/27/18 Principal diagnosis: n/v, abdominal pain Interval history: pt intubated yesterday due to worsening respiratory status and mentation; in the icu, awake/on the vent. NG placed with significant output since that time. abd less distended Objective - Exam Narrative Exam: Gen: intubated/awake CV: tachycardic, s1 and s2 Lungs: bilateral coarse bs, on vent Abd: soft, nt, hypoactive bs - Constitutional Vitals: Temp Pulse Resp BP Pulse Ox 97.9 F 110 H 29 H 119/59 98 10/27/18 08:00 10/27/18 08:30 10/27/18 08:30 10/27/18 08:30 10/27/18 08:30 - Labs CBC & Chem 7: 10/27/18 05:00 10/27/18 05:00 Labs: Laboratory Results - last 24 hr 10/26/18 10/26/18 10/26/18 11:52 13:54 15:03 WBC RBC Hgb Hct MCV MCH MCHC RDW Plt Count POC ABG pH 7.215 L POC ABG pCO2 31.8 L POC ABG pO2 69 L POC ABG HCO3 12.9 POC ABG Total CO2 14 POC ABG O2 Sat 90 POC ABG Base Excess -15 FiO2 40 Sodium Potassium Chloride Carbon Dioxide Anion Gap BUN Creatinine Estimated GFR BUN/Creatinine Ratio Glucose POC Glucose 117 H Lactic Acid 1.60 Calcium Phosphorus Magnesium 10/26/18 10/26/18 10/26/18 17:10 17:32 23:13 WBC RBC Hgb Hct MCV MCH MCHC RDW Plt Count POC ABG pH 7.356 POC ABG pCO2 37.6 POC ABG pO2 204 H POC ABG HCO3 21.0 POC ABG Total CO2 22 POC ABG O2 Sat 100 POC ABG Base Excess -4 FiO2 100 Sodium 144 Potassium 3.0 L D Chloride 114.5 H Carbon Dioxide 21 L Anion Gap 12 BUN 15 Creatinine 1.1 Estimated GFR 49 BUN/Creatinine Ratio 14 Glucose 66 POC Glucose 48 L Lactic Acid Calcium 7.6 L Phosphorus 3.40 D Magnesium 1.40 L 10/27/18 10/27/18 10/27/18 00:40 01:09 05:00 WBC 22.5 H RBC 4.62 Hgb 14.7 H Hct 44.4 H MCV 96 MCH 32 MCHC 33 RDW 14.2 Plt Count 345 POC ABG pH POC ABG pCO2 POC ABG pO2 POC ABG HCO3 POC ABG Total CO2 POC ABG O2 Sat POC ABG Base Excess FiO2 Sodium 143 Potassium 3.4 L Chloride 115.0 H Carbon Dioxide 14 L D Anion Gap 17 BUN 16 Creatinine 1.1 Estimated GFR 49 BUN/Creatinine Ratio 15 Glucose 228 H POC Glucose 264 H Lactic Acid Calcium 7.1 L Phosphorus Magnesium 10/27/18 10/27/18 10/27/18 05:00 05:16 05:38 WBC RBC Hgb Hct MCV MCH MCHC RDW Plt Count POC ABG pH 7.304 L POC ABG pCO2 POC ABG pO2 116 H POC ABG HCO3 14.6 POC ABG Total CO2 15 POC ABG O2 Sat 98 POC ABG Base Excess -12 FiO2 50 Sodium 145 Potassium 3.7 Chloride 118.4 H Carbon Dioxide 16 L Anion Gap 14 BUN 17 Creatinine 1.1 Estimated GFR 49 BUN/Creatinine Ratio 15 Glucose 123 H POC Glucose 95 Lactic Acid Calcium 7.7 L Phosphorus 2.60 D Magnesium 2.60 H
[2018-10-27] MEDS: PROTONIX IV SCH (09:53)
[2018-10-27] MEDS: HEPARIN SUB-Q SCH ×2 (09:53→20:59)
[2018-10-27] MEDS: NACL 0.9% 1000 ML 1,000 ML IV SCH ×2 (09:53→21:14)
--- NOTE | 2018-10-27 10:01 | Progress Note ---
Assessment and Plan 73 y/o female with bowel obstruction and now acute respiratory failure with hypercapnea, likely multifactorial from pain medications, anti-psychotic therapy and inability to take deep breaths for ventilation. 1. Extubate today. 2. Continue steroids and scheduled nebs, can likely start to wean steroids tomorrow 3. Continue NG tube to suction and follow surgery recs 4. Can likely be transferred back to the floor after watching post extubation for about 2 hours. Will continue to follow along with you. Subjective Date of service: 10/27/18 Principal diagnosis: n/v, abdominal pain Interval history: After I saw patient on yesterday, mental status worsened. The RT's were concerned about her protecting her airway so she was electively intubated. NG tube place and greater than 1300 was removed immediately. This am patient is awake and alert. Following commands and is at bedside. Objective Vital Signs - 12hr 10/26/18 10/26/18 10/26/18 22:00 22:15 22:30 Temperature Pulse Rate 102 H 102 H 126 H Pulse Rate [ Anterior Bilateral Throughout] Pulse Rate [ From Monitor] Respiratory 28 H 26 H 29 H Rate Respiratory Rate [Anterior Bilateral Throughout] Blood Pressure 99/55 102/45 102/45 O2 Sat by Pulse 94 91 100 Oximetry 10/26/18 10/26/18 10/26/18 22:46 23:00 23:15 Temperature Pulse Rate 124 H 123 H 126 H Pulse Rate [ Anterior Bilateral Throughout] Pulse Rate [ From Monitor] Respiratory 27 H 34 H 27 H Rate Respiratory Rate [Anterior Bilateral Throughout] Blood Pressure 98/54 90/49 96/59 O2 Sat by Pulse 93 95 97 Oximetry 10/26/18 10/26/18 10/27/18 23:30 23:46 00:00 Temperature Pulse Rate 125 H 125 H 124 H Pulse Rate [ Anterior Bilateral Throughout] Pulse Rate [ 125 H From Monitor] Respiratory 32 H 33 H 32 H Rate Respiratory Rate [Anterior Bilateral Throughout] Blood Pressure 98/58 96/59 99/59 O2 Sat by Pulse 93 94 95 Oximetry 10/27/18 10/27/18 10/27/18 00:06 00:10 00:15 Temperature Pulse Rate 125 H 123 H 122 H Pulse Rate [ Anterior Bilateral Throughout] Pulse Rate [ From Monitor] Respiratory 31 H Rate Respiratory Rate [Anterior Bilateral Throughout] Blood Pressure 99/59 99/59 101/58 O2 Sat by Pulse 94 95 Oximetry 10/27/18 10/27/18 10/27/18 00:30 00:45 01:00 Temperature Pulse Rate 111 H 112 H 113 H Pulse Rate [ Anterior Bilateral Throughout] Pulse Rate [ From Monitor] Respiratory 28 H 28 H 27 H Rate Respiratory Rate [Anterior Bilateral Throughout] Blood Pressure 92/42 98/51 100/50 O2 Sat by Pulse 97 96 97 Oximetry 10/27/18 10/27/18 10/27/18 01:15 01:30 01:45 Temperature Pulse Rate 116 H 115 H 115 H Pulse Rate [ Anterior Bilateral Throughout] Pulse Rate [ From Monitor] Respiratory 28 H 26 H 26 H Rate Respiratory Rate [Anterior Bilateral Throughout] Blood Pressure 92/59 97/58 96/58 O2 Sat by Pulse 96 96 97 Oximetry 10/27/18 10/27/18 10/27/18 02:00 02:15 02:30 Temperature Pulse Rate 116 H 118 H 124 H Pulse Rate [ Anterior Bilateral Throughout] Pulse Rate [ From Monitor] Respiratory 23 23 30 H Rate Respiratory Rate [Anterior Bilateral Throughout] Blood Pressure 104/56 114/47 119/66 O2 Sat by Pulse 97 98 99 Oximetry 10/27/18 10/27/18 10/27/18 02:33 02:45 03:00 Temperature Pulse Rate 118 H 124 H Pulse Rate [ 126 H 116 H Anterior Bilateral Throughout] Pulse Rate [ From Monitor] Respiratory 19 24 Rate Respiratory 25 H 22 Rate [Anterior Bilateral Throughout] Blood Pressure 119/55 119/55 O2 Sat by Pulse 100 96 Oximetry 10/27/18 10/27/18 10/27/18 03:15 03:30 03:45 Temperature Pulse Rate 122 H 121 H 121 H Pulse Rate [ Anterior Bilateral Throughout] Pulse Rate [ From Monitor] Respiratory 22 23 25 H Rate Respiratory Rate [Anterior Bilateral Throughout] Blood Pressure 109/64 109/64 111/67 O2 Sat by Pulse 96 96 96 Oximetry 10/27/18 10/27/18 10/27/18 04:00 04:07 04:16 Temperature 97.2 F L Pulse Rate 124 H 122 H 122 H Pulse Rate [ Anterior Bilateral Throughout] Pulse Rate [ 118 H From Monitor] Respiratory 27 H 25 H Rate Respiratory Rate [Anterior Bilateral Throughout] Blood Pressure 111/67 111/67 120/69 O2 Sat by Pulse 95 96 97 Oximetry 10/27/18 10/27/1810/27/19 04:30 04:46 05:00 Temperature Pulse Rate 123 H 99 H 94 H Pulse Rate [ Anterior Bilateral Throughout] Pulse Rate [ From Monitor] Respiratory 27 H 20 23 Rate Respiratory Rate [Anterior Bilateral Throughout] Blood Pressure 113/65 114/66 102/51 O2 Sat by Pulse 96 100 Oximetry 10/27/18 10/27/18 10/27/18 05:15 05:30 05:45 Temperature Pulse Rate 94 H 95 H 93 H Pulse Rate [ Anterior Bilateral Throughout] Pulse Rate [ From Monitor] Respiratory 24 25 H 20 Rate Respiratory Rate [Anterior Bilateral Throughout] Blood Pressure 104/55 110/61 101/49 O2 Sat by Pulse 99 98 98 Oximetry 10/27/18 10/27/18 10/27/18 05:53 06:00 06:15 Temperature Pulse Rate 93 H 95 H 87 Pulse Rate [ Anterior Bilateral Throughout] Pulse Rate [ From Monitor] Respiratory 26 H 22 Rate Respiratory Rate [Anterior Bilateral Throughout] Blood Pressure 101/49 101/49 105/51 O2 Sat by Pulse 97 98 Oximetry 10/27/18 10/27/18 10/27/18 06:30 06:45 07:00 Temperature Pulse Rate 87 87 88 Pulse Rate [ Anterior Bilateral Throughout] Pulse Rate [ From Monitor] Respiratory 20 20 21 Rate Respiratory Rate [Anterior Bilateral Throughout] Blood Pressure 105/51 102/54 97/54 O2 Sat by Pulse 97 99 98 Oximetry 10/27/18 10/27/18 10/27/18 07:12 07:15 07:22 Temperature Pulse Rate 91 H Pulse Rate [ 90 102 H Anterior Bilateral Throughout] Pulse Rate [ From Monitor] Respiratory 24 Rate Respiratory 21 22 Rate [Anterior Bilateral Throughout] Blood Pressure 101/47 O2 Sat by Pulse 98 Oximetry 10/27/18 10/27/18 10/27/18 07:30 07:45 08:00 Temperature 97.9 F Pulse Rate 97 H 100 H 100 H Pulse Rate [ Anterior Bilateral Throughout] Pulse Rate [ From Monitor] Respiratory 23 24 24 Rate Respiratory Rate [Anterior Bilateral Throughout] Blood Pressure 98/50 102/48 101/47 O2 Sat by Pulse 98 99 98 Oximetry 10/27/18 10/27/18 08:16 08:30 Temperature Pulse Rate 99 H 110 H Pulse Rate [ Anterior Bilateral Throughout] Pulse Rate [ From Monitor] Respiratory 31 H 29 H Rate Respiratory Rate [Anterior Bilateral Throughout] Blood Pressure 101/45 119/59 O2 Sat by Pulse 92 98 Oximetry Constitutional: alert (eyes are closed on bipap but nods to answer questions apporpriately), appears uncomfortable ENT: other (orally intubated) Neck: supple Effort: mildly labored Ascultation: Bilateral: diminished breath sounds (hardly any air movement) Percussion: Bilateral: not dull Gastrointestinal: other (softer today, bowel sounds heard) Extremities: no edema Neurologic: normal mental status, non-focal exam CBC and BMP: 10/27/18 05:00 10/27/18 05:00 ABG, PT/INR, D-dimer: ABG POC ABG pH 7.304 (7.35-7.45) L 10/27/18 05:16 POC ABG pO2 116 (80-105) H 10/27/18 05:16 POC ABG HCO3 14.6 (22-26 mml/L) 10/27/18 05:16 POC ABG Total CO2 15 (23-27mmol/L) 10/27/18 05:16 POC ABG O2 Sat 98 10/27/18 05:16 Abnormal lab findings: Abnormal Labs 10/22/18 10/22/18 10/22/18 15:31 15:54 15:54 WBC 11.5 H RBC 5.35 H Hgb 17.4 H Hct 50.3 H MCV MCH 33 H MCHC 35 H Lymph % (Auto) 12.6 L [place] % (Auto) 14.8 H Lymph # [place] # 1.7 H Seg Neutrophils % 72.5 H Seg Neutrophils # 8.3 H POC ABG pH POC ABG pCO2 POC ABG pO2 Sodium 134 L Potassium Chloride 88.1 L Carbon Dioxide BUN 51 H Creatinine 2.1 H Glucose 166 H POC Glucose Calcium Phosphorus Magnesium Albumin 3.4 L Lipase 10 L 10/23/18 10/23/18 10/23/18 04:32 04:32 10:53 WBC RBC Hgb Hct MCV MCH MCHC Lymph % (Auto) 10.2 L [place] % (Auto) 14.7 H Lymph # 0.7 L [place] # 1.0 H Seg Neutrophils % 74.9 H Seg Neutrophils # POC ABG pH POC ABG pCO2 POC ABG pO2 Sodium Potassium 3.1 L D 3.5 L Chloride Carbon Dioxide BUN 41 H 37 H Creatinine Glucose 111 H 110 H POC Glucose Calcium 8.1 L 8.1 L Phosphorus Magnesium Albumin Lipase 10/24/18 10/24/18 10/25/18 05:34 05:34 04:51 WBC RBC Hgb Hct MCV MCH MCHC Lymph % (Auto) [place] % (Auto) Lymph # [place] # Seg Neutrophils % Seg Neutrophils # POC ABG pH POC ABG pCO2 POC ABG pO2 Sodium Potassium 3.2 L 3.1 L Chloride 109.8 H 114.2 H Carbon Dioxide 17 L D BUN 21 H Creatinine Glucose 134 H 171 H POC Glucose Calcium 7.7 L 7.0 L Phosphorus 0.80 L* Magnesium Albumin Lipase 10/25/18 10/26/18 10/26/18 06:07 02:58 04:57 WBC RBC Hgb Hct MCV 99 H MCH 33 H MCHC Lymph % (Auto) [place] % (Auto) Lymph # [place] # Seg Neutrophils % Seg Neutrophils # POC ABG pH 7.090 L 7.320 L POC ABG pCO2 65.0 H 32.8 L POC ABG pO2 76 L Sodium Potassium Chloride Carbon Dioxide BUN Creatinine Glucose POC Glucose Calcium Phosphorus Magnesium Albumin Lipase 10/26/18 10/26/18 10/26/18 06:03 06:03 11:52 WBC 23.8 H RBC Hgb 15.4 H Hct 46.1 H D MCV MCH MCHC Lymph % (Auto) [place] % (Auto) Lymph # [place] # Seg Neutrophils % Seg Neutrophils # POC ABG pH POC ABG pCO2 POC ABG pO2 Sodium Potassium Chloride 109.5 H Carbon Dioxide 18 L BUN Creatinine Glucose 128 H POC Glucose 117 H Calcium 8.3 L D Phosphorus Magnesium Albumin Lipase 10/26/18 10/26/18 10/26/18 13:54 17:10 17:32 WBC RBC Hgb Hct MCV MCH MCHC Lymph % (Auto) [place] % (Auto) Lymph # [place] # Seg Neutrophils % Seg Neutrophils # POC ABG pH 7.215 L POC ABG pCO2 31.8 L POC ABG pO2 69 L 204 H Sodium Potassium 3.0 L D Chloride 114.5 H Carbon Dioxide 21 L BUN Creatinine Glucose POC Glucose Calcium 7.6 L Phosphorus Magnesium 1.40 L Albumin Lipase 10/26/18 10/27/18 10/27/18 23:13 00:40 01:09 WBC RBC Hgb Hct MCV MCH MCHC Lymph % (Auto) [place] % (Auto) Lymph # [place] # Seg Neutrophils % Seg Neutrophils # POC ABG pH POC ABG pCO2 POC ABG pO2 Sodium Potassium 3.4 L Chloride 115.0 H Carbon Dioxide 14 L D BUN Creatinine Glucose 228 H POC Glucose 48 L 264 H Calcium 7.1 L Phosphorus Magnesium Albumin Lipase 10/27/18 10/27/18 10/27/18 05:00 05:00 05:16 WBC 22.5 H RBC Hgb 14.7 H Hct 44.4 H MCV MCH MCHC Lymph % (Auto) [place] % (Auto) Lymph # [place] # Seg Neutrophils % Seg Neutrophils # POC ABG pH 7.304 L POC ABG pCO2 POC ABG pO2 116 H Sodium Potassium Chloride 118.4 H Carbon Dioxide 16 L BUN Creatinine Glucose 123 H POC Glucose Calcium 7.7 L Phosphorus Magnesium 2.60 H Albumin Lipase Chest x-ray: image reviewed Allied health notes reviewed: nursing
--- NOTE | 2018-10-27 10:45 | Progress Note ---
Assessment and Plan 73 yo F with gastroenteritis, pSBO Very distended stomach on CT and abdominal xrays, may be cause for increased work of breathing and likely cause of LUQ discomfort Obstruction series 10/27 - improved small bowel and stomach dilatation. Plan: 1. NPO 2. c/w NGT to suction 3. strict I/Os 4. gentle IVF 5. prn pain control 6. repeat obstruction series in am 7. DVT ppx 8. agree with holding off on SBFT until respiratory status improved and less output from NGT D/W Dr. Ni Thank you, please call with questions Subjective Date of service: 10/27/18 Narrative: Pt seen and examined. Was intubated yesterday due to increased work of breathing and lethargy. Since then she has been extubated. She is feeling better since NGT was placed. There was 1300 cc immediate output upon placement. She c/o mild abdominal pain in the right abdomen. No f/c, cp. Objective Vital Signs - 12hr 10/26/18 10/26/18 10/26/18 22:46 23:00 23:15 Temperature Pulse Rate 124 H 123 H 126 H Pulse Rate [ Anterior Bilateral Throughout] Pulse Rate [ From Monitor] Respiratory 27 H 34 H 27 H Rate Respiratory Rate [Anterior Bilateral Throughout] Blood Pressure 98/54 90/49 96/59 O2 Sat by Pulse 93 95 97 Oximetry 10/26/18 10/26/18 10/27/18 23:30 23:46 00:00 Temperature Pulse Rate 125 H 125 H 124 H Pulse Rate [ Anterior Bilateral Throughout] Pulse Rate [ 125 H From Monitor] Respiratory 32 H 33 H 32 H Rate Respiratory Rate [Anterior Bilateral Throughout] Blood Pressure 98/58 96/59 99/59 O2 Sat by Pulse 93 94 95 Oximetry 10/27/18 10/27/18 10/27/18 00:06 00:10 00:15 Temperature Pulse Rate 125 H 123 H 122 H Pulse Rate [ Anterior Bilateral Throughout] Pulse Rate [ From Monitor] Respiratory 31 H Rate Respiratory Rate [Anterior Bilateral Throughout] Blood Pressure 99/59 99/59 101/58 O2 Sat by Pulse 94 95 Oximetry 10/27/18 10/27/18 10/27/18 00:30 00:45 01:00 Temperature Pulse Rate 111 H 112 H 113 H Pulse Rate [ Anterior Bilateral Throughout] Pulse Rate [ From Monitor] Respiratory 28 H 28 H 27 H Rate Respiratory Rate [Anterior Bilateral Throughout] Blood Pressure 92/42 98/51 100/50 O2 Sat by Pulse 97 96 97 Oximetry 10/27/18 10/27/18 10/27/18 01:15 01:30 01:45 Temperature Pulse Rate 116 H 115 H 115 H Pulse Rate [ Anterior Bilateral Throughout] Pulse Rate [ From Monitor] Respiratory 28 H 26 H 26 H Rate Respiratory Rate [Anterior Bilateral Throughout] Blood Pressure 92/59 97/58 96/58 O2 Sat by Pulse 96 96 97 Oximetry 10/27/18 10/27/18 10/27/18 02:00 02:15 02:30 Temperature Pulse Rate 116 H 118 H 124 H Pulse Rate [ Anterior Bilateral Throughout] Pulse Rate [ From Monitor] Respiratory 23 23 30 H Rate Respiratory Rate [Anterior Bilateral Throughout] Blood Pressure 104/56 114/47 119/66 O2 Sat by Pulse 97 98 99 Oximetry 10/27/18 10/27/18 10/27/18 02:33 02:45 03:00 Temperature Pulse Rate 118 H 124 H Pulse Rate [ 126 H 116 H Anterior Bilateral Throughout] Pulse Rate [ From Monitor] Respiratory 19 24 Rate Respiratory 25 H 22 Rate [Anterior Bilateral Throughout] Blood Pressure 119/55 119/55 O2 Sat by Pulse 100 96 Oximetry 10/27/18 10/27/18 10/27/18 03:15 03:30 03:45 Temperature Pulse Rate 122 H 121 H 121 H Pulse Rate [ Anterior Bilateral Throughout] Pulse Rate [ From Monitor] Respiratory 22 23 25 H Rate Respiratory Rate [Anterior Bilateral Throughout] Blood Pressure 109/64 109/64 111/67 O2 Sat by Pulse 96 96 96 Oximetry 10/27/18 10/27/18 10/27/18 04:00 04:07 04:16 Temperature 97.2 F L Pulse Rate 124 H 122 H 122 H Pulse Rate [ Anterior Bilateral Throughout] Pulse Rate [ 118 H From Monitor] Respiratory 27 H 25 H Rate Respiratory Rate [Anterior Bilateral Throughout] Blood Pressure 111/67 111/67 120/69 O2 Sat by Pulse 95 96 97 Oximetry 10/27/18 10/27/18 10/27/18 04:30 04:46 05:00 Temperature Pulse Rate 123 H 99 H 94 H Pulse Rate [ Anterior Bilateral Throughout] Pulse Rate [ From Monitor] Respiratory 27 H 20 23 Rate Respiratory Rate [Anterior Bilateral Throughout] Blood Pressure 113/65 114/66 102/51 O2 Sat by Pulse 96 100 Oximetry 10/27/18 10/27/18 10/27/18 05:15 05:30 05:45 Temperature Pulse Rate 94 H 95 H 93 H Pulse Rate [ Anterior Bilateral Throughout] Pulse Rate [ From Monitor] Respiratory 24 25 H 20 Rate Respiratory Rate [Anterior Bilateral Throughout] Blood Pressure 104/55 110/61 101/49 O2 Sat by Pulse 99 98 98 Oximetry 10/27/18 10/27/18 10/27/18 05:53 06:00 06:15 Temperature Pulse Rate 93 H 95 H 87 Pulse Rate [ Anterior Bilateral Throughout] Pulse Rate [ From Monitor] Respiratory 26 H 22 Rate Respiratory Rate [Anterior Bilateral Throughout] Blood Pressure 101/49 101/49 105/51 O2 Sat by Pulse 97 98 Oximetry 10/27/18 10/27/18 10/27/18 06:30 06:45 07:00 Temperature Pulse Rate 87 87 88 Pulse Rate [ Anterior Bilateral Throughout] Pulse Rate [ From Monitor] Respiratory 20 20 21 Rate Respiratory Rate [Anterior Bilateral Throughout] Blood Pressure 105/51 102/54 97/54 O2 Sat by Pulse 97 99 98 Oximetry 10/27/18 10/27/18 10/27/18 07:12 07:15 07:22 Temperature Pulse Rate 91 H Pulse Rate [ 90 102 H Anterior Bilateral Throughout] Pulse Rate [ From Monitor] Respiratory 24 Rate Respiratory 21 22 Rate [Anterior Bilateral Throughout] Blood Pressure 101/47 O2 Sat by Pulse 98 Oximetry 10/27/18 10/27/18 10/27/18 07:30 07:45 08:00 Temperature 97.9 F Pulse Rate 97 H 100 H 100 H Pulse Rate [ Anterior Bilateral Throughout] Pulse Rate [ From Monitor] Respiratory 23 24 24 Rate Respiratory Rate [Anterior Bilateral Throughout] Blood Pressure 98/50 102/48 101/47 O2 Sat by Pulse 98 99 98 Oximetry 10/27/18 10/27/18 10/27/18 08:16 08:30 10:29 Temperature Pulse Rate 99 H 110 H Pulse Rate [ Anterior Bilateral Throughout] Pulse Rate [ From Monitor] Respiratory 31 H 29 H Rate Respiratory Rate [Anterior Bilateral Throughout] Blood Pressure 101/45 119/59 O2 Sat by Pulse 92 98 98 Oximetry - General physical appearance Narrative Exam: Gen: AAOx3. NAD ENT; NGT in place with dark brown drainage CV: S1, S2+ Resp: even and unlabored Abd: soft, ND, mild TTP in right upper and lower abdomen. No r/r/g Ext: no c/c/e - Labs 10/27/18 05:00 10/27/18 05:00 Diabetes panel 10/26/18 10/27/18 10/27/18 Range/Units 17:10 00:40 05:00 Sodium 144 143 145 (137-145) mmol/L Potassium 3.0 L D 3.4 L 3.7 (3.6-5.0) mmol/L Chloride 114.5 H 115.0 H 118.4 H (98-107) mmol/L Carbon Dioxide 21 L 14 L D 16 L (22-30) mmol/L BUN 15 16 17 (7-17) mg/dL Creatinine 1.1 1.1 1.1 (0.7-1.2) mg/dL Glucose 66 228 H 123 H (65-100) mg/dL Calcium 7.6 L 7.1 L 7.7 L (8.4-10.2) mg/dL Calcium panel 10/26/18 10/27/18 10/27/18 Range/Units 17:10 00:40 05:00 Calcium 7.6 L 7.1 L 7.7 L (8.4-10.2) mg/dL Phosphorus 3.40 D 2.60 D (2.5-4.5) mg/dL Pituitary panel 10/26/18 10/27/18 10/27/18 Range/Units 17:10 00:40 05:00 Sodium 144 143 145 (137-145) mmol/L Potassium 3.0 L D 3.4 L 3.7 (3.6-5.0) mmol/L Chloride 114.5 H 115.0 H 118.4 H (98-107) mmol/L Carbon Dioxide 21 L 14 L D 16 L (22-30) mmol/L BUN 15 16 17 (7-17) mg/dL Creatinine 1.1 1.1 1.1 (0.7-1.2) mg/dL Glucose 66 228 H 123 H (65-100) mg/dL Calcium 7.6 L 7.1 L 7.7 L (8.4-10.2) mg/dL Adrenal panel 10/26/18 10/27/18 10/27/18 Range/Units 17:10 00:40 05:00 Sodium 144 143 145 (137-145) mmol/L Potassium 3.0 L D 3.4 L 3.7 (3.6-5.0) mmol/L Chloride 114.5 H 115.0 H 118.4 H (98-107) mmol/L Carbon Dioxide 21 L 14 L D 16 L (22-30) mmol/L BUN 15 16 17 (7-17) mg/dL Creatinine 1.1 1.1 1.1 (0.7-1.2) mg/dL Glucose 66 228 H 123 H (65-100) mg/dL Calcium 7.6 L 7.1 L 7.7 L (8.4-10.2) mg/dL
--- NOTE | 2018-10-27 13:07 | Progress Note ---
Assessment and Plan - Patient Problems (1) Acute renal failure Current Visit: Yes Status: Acute Plan to address problem: Prerenal azotemia secondary to volume depletion which had improved. Kidney function is not significantly changed. Follow-up electrolytes and renal function in the morning (2) Hypokalemia Current Visit: Yes Status: Acute Plan to address problem: Potassium is again low. Supplement potassium. Follow potassium level (3) Abdominal distention, non-gaseous Current Visit: Yes Status: Acute Plan to address problem: Possible partial small bowel obstruction. General surgery on the case. Patient with NG tube to low intermittent wall suction. (4) Acute respiratory failure with hypoxia Current Visit: Yes Status: Acute Plan to address problem: Status post extubation. Continue management by pulmonary (5) Intractable nausea and vomiting Current Visit: Yes Status: Acute Plan to address problem: Improved (6) Hypotension Current Visit: Yes Status: Acute Plan to address problem: Continue volume resuscitation and vasopressors maintaining mean arterial pressure more than 65. Subjective Date of service: 10/27/18 Principal diagnosis: n/v, abdominal pain Interval history: Patient seen lying in bed. at bedside. She has no complaints. He indicates that she has an atrophic kidney and the other kidney was biopsied years ago by Dr. Hawkins and there was NO lupus nephritis. Objective - Exam Narrative Exam: Frail Elderly female who is lying in bed mildly dyspneic at rest HEENT: NCAT, pink oral mucous membrane Neck: Supple, no venous distention CVS: S1S2 RRR with no murmur, rub or gallop Chest: Bilateral rhonchi Abdomen: Distended, soft, nontender, no organomegaly, bowel sounds are present Extremities: Mild edema Skin with some mottling, cool Neuro: Awake, looks dull no focal deficits - Vital Signs Vital signs: Vital Signs - 12hr 10/27/18 10/27/18 10/27/18 01:15 01:30 01:45 Temperature Pulse Rate 116 H 115 H 115 H Pulse Rate [ Anterior Bilateral Throughout] Pulse Rate [ From Monitor] Respiratory 28 H 26 H 26 H Rate Respiratory Rate [Anterior Bilateral Throughout] Blood Pressure 92/59 97/58 96/58 O2 Sat by Pulse 96 96 97 Oximetry 10/27/18 10/27/18 10/27/18 02:00 02:15 02:30 Temperature Pulse Rate 116 H 118 H 124 H Pulse Rate [ Anterior Bilateral Throughout] Pulse Rate [ From Monitor] Respiratory 23 23 30 H Rate Respiratory Rate [Anterior Bilateral Throughout] Blood Pressure 104/56 114/47 119/66 O2 Sat by Pulse 97 98 99 Oximetry 10/27/18 10/27/18 10/27/18 02:33 02:45 03:00 Temperature Pulse Rate 118 H 124 H Pulse Rate [ 126 H 116 H Anterior Bilateral Throughout] Pulse Rate [ From Monitor] Respiratory 19 24 Rate Respiratory 25 H 22 Rate [Anterior Bilateral Throughout] Blood Pressure 119/55 119/55 O2 Sat by Pulse 100 96 Oximetry 10/27/18 10/27/18 10/27/18 03:15 03:30 03:45 Temperature Pulse Rate 122 H 121 H 121 H Pulse Rate [ Anterior Bilateral Throughout] Pulse Rate [ From Monitor] Respiratory 22 23 25 H Rate Respiratory Rate [Anterior Bilateral Throughout] Blood Pressure 109/64 109/64 111/67 O2 Sat by Pulse 96 96 96 Oximetry 10/27/18 10/27/18 10/27/18 04:00 04:07 04:16 Temperature 97.2 F L Pulse Rate 124 H 122 H 122 H Pulse Rate [ Anterior Bilateral Throughout] Pulse Rate [ 118 H From Monitor] Respiratory 27 H 25 H Rate Respiratory Rate [Anterior Bilateral Throughout] Blood Pressure 111/67 111/67 120/69 O2 Sat by Pulse 95 96 97 Oximetry 10/27/18 10/27/18 10/27/18 04:30 04:46 05:00 Temperature Pulse Rate 123 H 99 H 94 H Pulse Rate [ Anterior Bilateral Throughout] Pulse Rate [ From Monitor] Respiratory 27 H 20 23 Rate Respiratory Rate [Anterior Bilateral Throughout] Blood Pressure 113/65 114/66 102/51 O2 Sat by Pulse 96 100 Oximetry 10/27/18 10/27/18 10/27/18 05:15 05:30 05:45 Temperature Pulse Rate 94 H 95 H 93 H Pulse Rate [ Anterior Bilateral Throughout] Pulse Rate [ From Monitor] Respiratory 24 25 H 20 Rate Respiratory Rate [Anterior Bilateral Throughout] Blood Pressure 104/55 110/61 101/49 O2 Sat by Pulse 99 98 98 Oximetry 10/27/18 10/27/18 10/27/18 05:53 06:00 06:15 Temperature Pulse Rate 93 H 95 H 87 Pulse Rate [ Anterior Bilateral Throughout] Pulse Rate [ From Monitor] Respiratory 26 H 22 Rate Respiratory Rate [Anterior Bilateral Throughout] Blood Pressure 101/49 101/49 105/51 O2 Sat by Pulse 97 98 Oximetry 10/27/18 10/27/18 10/27/18 06:30 06:45 07:00 Temperature Pulse Rate 87 87 88 Pulse Rate [ Anterior Bilateral Throughout] Pulse Rate [ From Monitor] Respiratory 20 20 21 Rate Respiratory Rate [Anterior Bilateral Throughout] Blood Pressure 105/51 102/54 97/54 O2 Sat by Pulse 97 99 98 Oximetry 10/27/18 10/27/18 10/27/18 07:12 07:15 07:22 Temperature Pulse Rate 91 H Pulse Rate [ 90 102 H Anterior Bilateral Throughout] Pulse Rate [ From Monitor] Respiratory 24 Rate Respiratory 21 22 Rate [Anterior Bilateral Throughout] Blood Pressure 101/47 O2 Sat by Pulse 98 Oximetry 10/27/18 10/27/18 10/27/18 07:30 07:45 08:00 Temperature 97.9 F Pulse Rate 97 H 100 H 100 H Pulse Rate [ Anterior Bilateral Throughout] Pulse Rate [ From Monitor] Respiratory 23 24 24 Rate Respiratory Rate [Anterior Bilateral Throughout] Blood Pressure 98/50 102/48 101/47 O2 Sat by Pulse 98 99 98 Oximetry 10/27/18 10/27/18 10/27/18 08:16 08:30 08:46 Temperature Pulse Rate 99 H 110 H 110 H Pulse Rate [ Anterior Bilateral Throughout] Pulse Rate [ From Monitor] Respiratory 31 H 29 H 31 H Rate Respiratory Rate [Anterior Bilateral Throughout] Blood Pressure 101/45 119/59 115/58 O2 Sat by Pulse 92 98 97 Oximetry 10/27/18 10/27/18 10/27/18 09:01 09:15 09:30 Temperature Pulse Rate 112 H 112 H 114 H Pulse Rate [ Anterior Bilateral Throughout] Pulse Rate [ From Monitor] Respiratory 28 H 28 H 27 H Rate Respiratory Rate [Anterior Bilateral Throughout] Blood Pressure 126/63 118/70 O2 Sat by Pulse 97 98 97 Oximetry 10/27/18 10/27/18 10/27/18 09:45 10:00 10:01 Temperature Pulse Rate 111 H 113 H 111 H Pulse Rate [ Anterior Bilateral Throughout] Pulse Rate [ From Monitor] Respiratory 25 H 26 H Rate Respiratory Rate [Anterior Bilateral Throughout] Blood Pressure 121/58 117/88 O2 Sat by Pulse 96 96 Oximetry 10/27/18 10/27/18 10/27/18 10:15 10:29 10:31 Temperature Pulse Rate 108 H 108 H Pulse Rate [ Anterior Bilateral Throughout] Pulse Rate [ From Monitor] Respiratory 30 H 24 Rate Respiratory Rate [Anterior Bilateral Throughout] Blood Pressure 118/55 128/65 O2 Sat by Pulse 99 98 97 Oximetry 10/27/18 10/27/18 10/27/18 10:45 11:01 11:15 Temperature Pulse Rate 111 H 114 H 109 H Pulse Rate [ Anterior Bilateral Throughout] Pulse Rate [ From Monitor] Respiratory 25 H 23 26 H Rate Respiratory Rate [Anterior Bilateral Throughout] Blood Pressure 125/71 130/78 116/59 O2 Sat by Pulse 96 98 97 Oximetry 10/27/18 10/27/18 10/27/18 11:30 11:45 12:00 Temperature 96.8 F L Pulse Rate 108 H 110 H 106 H Pulse Rate [ Anterior Bilateral Throughout] Pulse Rate [ From Monitor] Respiratory 25 H 22 23 Rate Respiratory Rate [Anterior Bilateral Throughout] Blood Pressure 114/69 116/59 132/65 O2 Sat by Pulse 98 98 98 Oximetry 10/27/18 12:31 Temperature Pulse Rate 110 H Pulse Rate [ Anterior Bilateral Throughout] Pulse Rate [ From Monitor] Respiratory Rate Respiratory Rate [Anterior Bilateral Throughout] Blood Pressure 138/52 O2 Sat by Pulse Oximetry - Lab 10/27/18 05:00 10/27/18 05:00 Most recent lab results Calcium 7.7 mg/dL (8.4-10.2) L 10/27/18 05:00 Phosphorus 2.60 mg/dL (2.5-4.5) D 10/27/18 05:00 Magnesium 2.60 mg/dL (1.7-2.3) H 10/27/18 05:00 Medications & Allergies - Medications Allergies/Adverse Reactions: Allergies Sulfa (Sulfonamide Antibiotics) Allergy (Intermediate, Verified 10/22/18 16:30) Rash metoclopramide HCl [From Reglan] Allergy (Verified 10/22/18 16:30) Dizziness prochlorperazine [From Compazine] Allergy (Verified 10/22/18 16:30) NECK STIFFNESS Home Medications: Home Medications Medication Instructions Recorded Confirmed Last Taken Type Ondansetron 4 mg PO Q6HR PRN 12/05/16 10/22/18 10/29/17 History Propranolol HCl [Propranolol HCl 60 mg PO DAILY 12/05/16 10/22/18 10/30/17 22:00 History ER] QUEtiapine [SEROquel] 300 mg PO DAILY 12/05/16 10/22/18 10/30/17 History Lasix TAB 40 mg PO PRN PRN 12/07/16 10/22/18 10/24/17 History Percocet 10/325 mg 1 tab PO PRN PRN 12/07/16 10/22/18 10/30/17 History Albuterol Sulfate [Albuterol 0.63% 0.63 mg IH TID PRN 10/22/17 10/22/18 10/29/17 History NEBS] Active Medications: Generic Name Dose Route Start Last Admin Trade Name Freq PRN Reason Stop Dose Admin Acetaminophen 650 mg 10/22/18 20:10 Tylenol PO Q4H PRN Pain MILD(1-3)/Fever >100.5/PORTER Albuterol 2.5 mg 10/22/18 20:14 10/26/18 01:44 Proventil IH 2.5 mg Q4HRT PRN Administration Shortness Of Breath Albuterol/Ipratropium 1 ampul 10/26/18 10:15 10/27/18 07:12 Duoneb *Not For Prn Use* IH 1 ampul Q6HRT RICK Administration Budesonide 0.5 mg 10/23/18 08:00 10/27/18 07:12 Pulmicort IH 0.5 mg Q12HRT RICK Administration Dextrose 50 ml 10/26/18 23:40 10/27/18 00:20 D50w (25gm) Syringe IV 50 ml PRN PRN Administration Hypoglycemia Guaifenesin 600 mg 10/22/18 22:00 10/27/18 09:18 Mucinex Er PO Not Given BID RICK Heparin Sodium (Porcine) 5,000 unit 10/22/18 22:00 10/27/18 09:53 Heparin SUB-Q 5,000 unit Q12HR RICK Administration Hydralazine HCl 10 mg 10/22/18 21:41 Apresoline IV Q4HR PRN Blood Pressure Metronidazole 500 mg in 100 mls @ 100 mls/hr 10/22/18 22:00 10/27/18 05:53 Flagyl 500 Mg/100 Ml IV 10/27/18 21:59 100 mls/hr Q8HR RICK Administration Protocol Piperacillin Sod/Tazobactam Sod 4.5 gm in 100 mls @ 200 mls/hr 10/24/18 14:00 10/27/18 05:52 Zosyn/Ns 4.5gm/100ml IV 200 mls/hr Q8HR RICK Administration Sodium Chloride 1,000 mls @ 0 mls/hr 10/26/18 15:12 10/26/18 17:33 Nacl 0.9% 1000 Ml IV 10/27/18 15:13 999 mls/hr DIRECT RICK Administration As Directed Norepinephrine 4 mg in 250 mls @ 7.5 mls/hr 10/26/18 16:00 10/26/18 19:15 Levophed Drip 4 Mg/Ns 250 Ml IV 0 mcg/min TITR RICK 0 mls/hr Titration Protocol 2 MCG/MIN Sodium Chloride 1,000 mls @ 100 mls/hr 10/26/18 17:00 10/27/18 09:53 Nacl 0.9% 1000 Ml IV 100 mls/hr DIRECT RICK Administration Lorazepam 0.5 mg 10/26/18 22:44 10/26/18 23:14 Ativan IV 0.5 mg Q4H PRN Administration Anxiety Methylprednisolone Sodium Succinate 80 mg 10/26/18 06:00 10/27/18 05:52 Solu-Medrol IV 80 mg Q8HR RICK Administration Metoprolol Tartrate 2.5 mg 10/26/18 18:00 10/27/18 12:31 Lopressor IV 2.5 mg Q6HR RICK Administration Morphine Sulfate 2 mg 10/24/18 13:39 10/27/18 12:42 Morphine IV 2 mg Q4H PRN Administration Pain, Moderate (4-6) Ondansetron HCl 4 mg 10/24/18 10:05 10/25/18 17:26 Zofran IV 4 mg Q6H PRN Administration Nausea And Vomiting Oxycodone/Acetaminophen 1 tab 10/22/18 20:10 10/24/18 06:15 Percocet 5/325 PO 1 tab Q6H PRN Administration Pain, Moderate (4-6) Pantoprazole Sodium 40 mg 10/24/18 11:00 10/27/18 09:53 Protonix IV 40 mg QDAY RICK Administration Promethazine HCl 25 mg 10/22/18 20:10 10/22/18 21:21 Phenergan [place] 25 mg Q6H PRN Administration Nausea And Vomiting Sodium Chloride 10 ml 10/22/18 22:00 10/27/18 12:32 Sodium Chloride Flush Syringe 10 Ml IV 10 ml BID RICK Administration Sodium Chloride 10 ml 10/22/18 20:10 10/24/18 18:32 Sodium Chloride Flush Syringe 10 Ml IV 10 ml PRN PRN Administration LINE FLUSH
[2018-10-27] MEDS ORDERED: FLAGYL 500 MG/100 ML 500 MG/100 ML BAG IV ONE (13:26)
[2018-10-27] MEDS ORDERED: BENADRYL IV ONE (23:06)
[2018-10-28] MEDS: MORPHINE IV PRN ×3 (00:48→22:15)
[2018-10-28] MEDS: MUCINEX ER PO SCH ×3 (01:09→21:50)
[2018-10-28] MEDS: DUONEB *Not for PRN Use IH SCH ×6 (01:49→23:41)
[2018-10-28] MEDS: LOPRESSOR IV SCH ×4 (03:10→21:51)
[2018-10-28] MEDS: SOLU-Medrol IV SCH ×3 (05:22→22:07)
[2018-10-28] MEDS: ZOSYN/NS 4.5GM/100ML 4.5 GM/100 ML VIAL IV SCH ×3 (05:22→22:10)
[2018-10-28 05:34] LABS: Hematocrit 40.7 % (30.3-42.9); Hemoglobin 13.6 gm/dl (10.1-14.3); Mean Corpuscular HGB Conc 34 % (30-34); Mean Corpuscular Volume 96 fl (79-97); Platelet Count 290 K/mm3 (140-440); Red Blood Count 4.24 M/mm3 (3.65-5.03); Red Cell Distribution Width 14.5 % (13.2-15.2)
[2018-10-28] MEDS: PROVENTIL IH PRN (06:34)
[2018-10-28] MEDS: PULMICORT IH SCH ×2 (07:49→21:16)
--- NOTE | 2018-10-28 08:55 | Progress Note ---
Assessment and Plan ARF s/p MV . Appears to be tolerating BiPAP adequately Partial bowel obstruction. Still some gastric distention on this morning's chest x-ray/abdominal films. No major Airspace consolidation seen, pending report Mixed acidosis Chronic pain medications, anti-psychotic therapy . Possible trigger bowel obstruction process Hypernatremia Rec Wean steroids to 60 mg every 8 hours, monitor WBC We will increase the neb therapy to every 4 hours, monitor tachycardia Incentive spirometry Continue NG tube to suction if no bowel movements or flatness noted during the morning. This may hinder NIV , may need to use less of time or other support temporarily as bridge. Follow-up surgery recs Aspiration precautions Switch normal saline to half saline and maintain about 75-100 cc per hour the next 24 hours. Monitor electrolytes and I/O Discussed with patient and spouse in detail. All questions answered. They expressed my preference to minimize morphing and opiate use the next 24 hours hopefully will improve bowel function Critical care time was 31 minutes of [id number] evaluation and coordination of care Subjective Date of service: 10/28/18 Principal diagnosis: n/v, abdominal pain,bowel obstruction,sepsis,ARF, s/p MV support Interval history: Extubated successfully last night. Very anxious, main complaint is pain and sometimes shortness of breath. NIV does far well tolerated at 16/6 cm H2O, 30% oxygen. Per spouse, she does not use oxygen at home only [place] No vomiting, just been checked by GI Objective Vital Signs - 12hr 10/27/18 10/27/18 10/27/18 20:57 21:00 21:01 Temperature Pulse Rate 108 H Pulse Rate [ Anterior Bilateral] Pulse Rate [ From Monitor] Respiratory 23 26 H Rate Respiratory 26 H Rate [Abdomen] Respiratory Rate [Anterior Bilateral] Blood Pressure 117/40 O2 Sat by Pulse 96 Oximetry 10/27/18 10/27/18 10/27/18 21:10 21:15 21:31 Temperature Pulse Rate 105 H 103 H 101 H Pulse Rate [ Anterior Bilateral] Pulse Rate [ From Monitor] Respiratory 22 23 Rate Respiratory Rate [Abdomen] Respiratory Rate [Anterior Bilateral] Blood Pressure 117/40 117/40 117/40 O2 Sat by Pulse 98 97 Oximetry 10/27/18 10/27/18 10/27/18 21:45 22:00 22:15 Temperature Pulse Rate 125 H 130 H 101 H Pulse Rate [ Anterior Bilateral] Pulse Rate [ From Monitor] Respiratory 25 H 22 24 Rate Respiratory Rate [Abdomen] Respiratory Rate [Anterior Bilateral] Blood Pressure 117/40 129/57 129/57 O2 Sat by Pulse 98 97 97 Oximetry 10/27/18 10/27/18 10/27/18 22:31 22:45 23:00 Temperature Pulse Rate 105 H 107 H 107 H Pulse Rate [ Anterior Bilateral] Pulse Rate [ From Monitor] Respiratory 22 22 27 H Rate Respiratory Rate [Abdomen] Respiratory Rate [Anterior Bilateral] Blood Pressure 129/57 129/57 151/68 O2 Sat by Pulse 97 99 97 Oximetry 10/27/18 10/27/18 10/27/18 23:09 23:15 23:31 Temperature 98.9 F Pulse Rate 108 H 105 H 100 H Pulse Rate [ Anterior Bilateral] Pulse Rate [ From Monitor] Respiratory 28 H 17 23 Rate Respiratory Rate [Abdomen] Respiratory Rate [Anterior Bilateral] Blood Pressure 151/68 151/68 151/68 O2 Sat by Pulse 98 97 96 Oximetry 10/27/18 10/28/18 10/28/18 23:45 00:00 00:01 Temperature Pulse Rate 100 H 102 H Pulse Rate [ Anterior Bilateral] Pulse Rate [ 108 H From Monitor] Respiratory 22 20 Rate Respiratory Rate [Abdomen] Respiratory Rate [Anterior Bilateral] Blood Pressure 151/68 121/34 O2 Sat by Pulse 97 99 97 Oximetry 10/28/18 10/28/18 10/28/18 00:15 00:30 00:45 Temperature Pulse Rate 104 H 107 H 128 H Pulse Rate [ Anterior Bilateral] Pulse Rate [ From Monitor] Respiratory 23 25 H 22 Rate Respiratory Rate [Abdomen] Respiratory Rate [Anterior Bilateral] Blood Pressure 121/34 121/34 121/34 O2 Sat by Pulse 100 97 99 Oximetry 10/28/18 10/28/18 10/28/18 00:48 01:01 01:15 Temperature Pulse Rate 128 H 129 H Pulse Rate [ Anterior Bilateral] Pulse Rate [ From Monitor] Respiratory 21 22 19 Rate Respiratory Rate [Abdomen] Respiratory Rate [Anterior Bilateral] Blood Pressure 118/43 118/43 O2 Sat by Pulse 97 97 Oximetry 10/28/18 10/28/18 10/28/18 01:31 01:45 01:49 Temperature Pulse Rate 129 H 129 H Pulse Rate [ 113 H Anterior Bilateral] Pulse Rate [ From Monitor] Respiratory 24 23 Rate Respiratory Rate [Abdomen] Respiratory 21 Rate [Anterior Bilateral] Blood Pressure 118/43 118/43 O2 Sat by Pulse 98 97 Oximetry 10/28/18 10/28/18 10/28/18 02:01 02:13 02:15 Temperature Pulse Rate 107 H 112 H Pulse Rate [ 110 H Anterior Bilateral] Pulse Rate [ From Monitor] Respiratory 24 23 Rate Respiratory Rate [Abdomen] Respiratory 23 Rate [Anterior Bilateral] Blood Pressure 80/53 130/45 O2 Sat by Pulse 98 97 Oximetry 10/28/18 10/28/18 10/28/18 02:31 02:45 03:00 Temperature Pulse Rate 110 H 109 H 109 H Pulse Rate [ Anterior Bilateral] Pulse Rate [ From Monitor] Respiratory 23 23 22 Rate Respiratory Rate [Abdomen] Respiratory Rate [Anterior Bilateral] Blood Pressure 130/45 130/45 126/52 O2 Sat by Pulse 97 97 97 Oximetry 10/28/18 10/28/18 10/28/18 03:10 03:15 03:31 Temperature Pulse Rate 107 H 112 H 103 H Pulse Rate [ Anterior Bilateral] Pulse Rate [ From Monitor] Respiratory 23 18 Rate Respiratory Rate [Abdomen] Respiratory Rate [Anterior Bilateral] Blood Pressure 126/52 126/52 126/52 O2 Sat by Pulse 97 97 Oximetry 10/28/18 10/28/18 10/28/18 03:45 03:49 04:00 Temperature 98.3 F Pulse Rate 106 H 114 H Pulse Rate [ Anterior Bilateral] Pulse Rate [ 105 H From Monitor] Respiratory 17 26 H Rate Respiratory Rate [Abdomen] Respiratory Rate [Anterior Bilateral] Blood Pressure 126/52 134/77 O2 Sat by Pulse 97 97 Oximetry 10/28/18 10/28/18 10/28/18 04:15 04:31 04:45 Temperature Pulse Rate 105 H 101 H 110 H Pulse Rate [ Anterior Bilateral] Pulse Rate [ From Monitor] Respiratory 28 H 20 25 H Rate Respiratory Rate [Abdomen] Respiratory Rate [Anterior Bilateral] Blood Pressure 126/52 126/52 134/77 O2 Sat by Pulse 98 97 98 Oximetry 10/28/18 10/28/18 10/28/18 05:01 05:15 05:31 Temperature Pulse Rate 138 H 109 H 105 H Pulse Rate [ Anterior Bilateral] Pulse Rate [ From Monitor] Respiratory 23 26 H 22 Rate Respiratory Rate [Abdomen] Respiratory Rate [Anterior Bilateral] Blood Pressure 134/77 134/77 138/68 O2 Sat by Pulse 100 100 98 Oximetry 10/28/18 10/28/18 10/28/18 05:45 06:01 06:15 Temperature Pulse Rate 104 H 104 H 128 H Pulse Rate [ Anterior Bilateral] Pulse Rate [ From Monitor] Respiratory 22 24 24 Rate Respiratory Rate [Abdomen] Respiratory Rate [Anterior Bilateral] Blood Pressure 138/68 128/30 138/68 O2 Sat by Pulse 97 98 97 Oximetry 10/28/18 10/28/18 10/28/18 06:31 06:35 06:45 Temperature Pulse Rate 130 H 128 H Pulse Rate [ 129 H Anterior Bilateral] Pulse Rate [ From Monitor] Respiratory 25 H 25 H Rate Respiratory Rate [Abdomen] Respiratory 25 H Rate [Anterior Bilateral] Blood Pressure 138/68 138/68 O2 Sat by Pulse 97 98 Oximetry 10/28/18 10/28/18 10/28/18 07:00 07:15 07:31 Temperature Pulse Rate 130 H 130 H 131 H Pulse Rate [ Anterior Bilateral] Pulse Rate [ From Monitor] Respiratory 26 H 26 H 26 H Rate Respiratory Rate [Abdomen] Respiratory Rate [Anterior Bilateral] Blood Pressure 152/38 128/30 128/30 O2 Sat by Pulse 97 96 95 Oximetry 10/28/18 10/28/18 10/28/18 07:40 07:49 08:00 Temperature 97.7 F Pulse Rate 131 H Pulse Rate [ 131 H Anterior Bilateral] Pulse Rate [ From Monitor] Respiratory 28 H Rate Respiratory Rate [Abdomen] Respiratory 31 H Rate [Anterior Bilateral] Blood Pressure 124/58 O2 Sat by Pulse 94 Oximetry 10/28/18 08:06 Temperature Pulse Rate Pulse Rate [ 130 H Anterior Bilateral] Pulse Rate [ From Monitor] Respiratory Rate Respiratory Rate [Abdomen] Respiratory 25 H Rate [Anterior Bilateral] Blood Pressure O2 Sat by Pulse Oximetry Constitutional: alert, appears uncomfortable Neck: supple Effort: mildly labored Ascultation: Bilateral: clear, wheezes (mild) Percussion: Bilateral: not dull Cardiovascular: regular rate and rhythm, other (Baseline tachycardia) Gastrointestinal: other (soft and depressible. Decreased bowel sounds, no rebound tenderness) Integumentary: normal Extremities: no edema Neurologic: normal mental status, non-focal exam Psychiatric: anxious CBC and BMP: 10/28/18 04:25 10/28/18 04:25 ABG, PT/INR, D-dimer: ABG POC ABG pH 7.304 (7.35-7.45) L 10/27/18 05:16 POC ABG pO2 116 (80-105) H 10/27/18 05:16 POC ABG HCO3 14.6 (22-26 mml/L) 10/27/18 05:16 POC ABG Total CO2 15 (23-27mmol/L) 10/27/18 05:16 POC ABG O2 Sat 98 10/27/18 05:16 Abnormal lab findings: Abnormal Labs 10/22/18 10/22/18 10/22/18 15:31 15:54 15:54 WBC 11.5 H RBC 5.35 H Hgb 17.4 H Hct 50.3 H MCV MCH 33 H MCHC 35 H Lymph % (Auto) 12.6 L [place] % (Auto) 14.8 H Lymph # [place] # 1.7 H Seg Neutrophils % 72.5 H Seg Neutrophils # 8.3 H POC ABG pH POC ABG pCO2 POC ABG pO2 Sodium 134 L Potassium Chloride 88.1 L Carbon Dioxide BUN 51 H Creatinine 2.1 H Glucose 166 H POC Glucose Calcium Phosphorus Magnesium Albumin 3.4 L Lipase 10 L 10/23/18 10/23/18 10/23/18 04:32 04:32 10:53 WBC RBC Hgb Hct MCV MCH MCHC Lymph % (Auto) 10.2 L [place] % (Auto) 14.7 H Lymph # 0.7 L [place] # 1.0 H Seg Neutrophils % 74.9 H Seg Neutrophils # POC ABG pH POC ABG pCO2 POC ABG pO2 Sodium Potassium 3.1 L D 3.5 L Chloride Carbon Dioxide BUN 41 H 37 H Creatinine Glucose 111 H 110 H POC Glucose Calcium 8.1 L 8.1 L Phosphorus Magnesium Albumin Lipase 10/24/18 10/24/18 10/25/18 05:34 05:34 04:51 WBC RBC Hgb Hct MCV MCH MCHC Lymph % (Auto) [place] % (Auto) Lymph # [place] # Seg Neutrophils % Seg Neutrophils # POC ABG pH POC ABG pCO2 POC ABG pO2 Sodium Potassium 3.2 L 3.1 L Chloride 109.8 H 114.2 H Carbon Dioxide 17 L D BUN 21 H Creatinine Glucose 134 H 171 H POC Glucose Calcium 7.7 L 7.0 L Phosphorus 0.80 L* Magnesium Albumin Lipase 10/25/18 10/26/18 10/26/18 06:07 02:58 04:57 WBC RBC Hgb Hct MCV 99 H MCH 33 H MCHC Lymph % (Auto) [place] % (Auto) Lymph # [place] # Seg Neutrophils % Seg Neutrophils # POC ABG pH 7.090 L 7.320 L POC ABG pCO2 65.0 H 32.8 L POC ABG pO2 76 L Sodium Potassium Chloride Carbon Dioxide BUN Creatinine Glucose POC Glucose Calcium Phosphorus Magnesium Albumin Lipase 10/26/18 10/26/18 10/26/18 06:03 06:03 11:52 WBC 23.8 H RBC Hgb 15.4 H Hct 46.1 H D MCV MCH MCHC Lymph % (Auto) [place] % (Auto) Lymph # [place] # Seg Neutrophils % Seg Neutrophils # POC ABG pH POC ABG pCO2 POC ABG pO2 Sodium Potassium Chloride 109.5 H Carbon Dioxide 18 L BUN Creatinine Glucose 128 H POC Glucose 117 H Calcium 8.3 L D Phosphorus Magnesium Albumin Lipase 10/26/18 10/26/18 10/26/18 13:54 17:10 17:32 WBC RBC Hgb Hct MCV MCH MCHC Lymph % (Auto) [place] % (Auto) Lymph # [place] # Seg Neutrophils % Seg Neutrophils # POC ABG pH 7.215 L POC ABG pCO2 31.8 L POC ABG pO2 69 L 204 H Sodium Potassium 3.0 L D Chloride 114.5 H Carbon Dioxide 21 L BUN Creatinine Glucose POC Glucose Calcium 7.6 L Phosphorus Magnesium 1.40 L Albumin Lipase 10/26/18 10/27/18 10/27/18 23:13 00:40 01:09 WBC RBC Hgb Hct MCV MCH MCHC Lymph % (Auto) [place] % (Auto) Lymph # [place] # Seg Neutrophils % Seg Neutrophils # POC ABG pH POC ABG pCO2 POC ABG pO2 Sodium Potassium 3.4 L Chloride 115.0 H Carbon Dioxide 14 L D BUN Creatinine Glucose 228 H POC Glucose 48 L 264 H Calcium 7.1 L Phosphorus Magnesium Albumin Lipase 10/27/18 10/27/18 10/27/18 05:00 05:00 05:16 WBC 22.5 H RBC Hgb 14.7 H Hct 44.4 H MCV MCH MCHC Lymph % (Auto) [place] % (Auto) Lymph # [place] # Seg Neutrophils % Seg Neutrophils # POC ABG pH 7.304 L POC ABG pCO2 POC ABG pO2 116 H Sodium Potassium Chloride 118.4 H Carbon Dioxide 16 L BUN Creatinine Glucose 123 H POC Glucose Calcium 7.7 L Phosphorus Magnesium 2.60 H Albumin Lipase 10/28/18 10/28/18 04:25 04:25 WBC 23.5 H RBC Hgb Hct MCV MCH MCHC Lymph % (Auto) [place] % (Auto) Lymph # [place] # Seg Neutrophils % Seg Neutrophils # POC ABG pH POC ABG pCO2 POC ABG pO2 Sodium 147 H Potassium Chloride 116.9 H Carbon Dioxide 16 L BUN 23 H Creatinine Glucose POC Glucose Calcium 8.0 L Phosphorus Magnesium Albumin Lipase Allied health notes reviewed: nursing
--- NOTE | 2018-10-28 09:05 | XRay Report ---
ABDOMINAL SERIES: History: Small bowel obstruction. The nasogastric tube has been removed since yesterday's exam. No significant change is demonstrated in the borderline to mildly dilated loops of small bowel. No evidence for free air or large air-fluid levels. There is normal gas in the colon. Single view of the chest demonstrates infiltrate or atelectasis in the left lower lobe. The right lung is clear. Normal heart size. The endotracheal tube has been retracted to the level of the thoracic inlet. IMPRESSION: No significant change.
--- NOTE | 2018-10-28 09:33 | Progress Note ---
Assessment and Plan - Patient Problems (1) Acute renal failure Current Visit: Yes Status: Acute Plan to address problem: Prerenal azotemia secondary to volume depletion, now stabilizing, pt remains non-oliguric. Will change IVF to D51/2NS given developing hyperchloremic met acidosis. Follow-up electrolytes and renal function. (2) Hypokalemia Current Visit: Yes Status: Acute Plan to address problem: K normalized. Supplement potassium. Follow potassium level (3) Abdominal distention, non-gaseous Current Visit: Yes Status: Acute Plan to address problem: partial small bowel obstruction. General surgery on the case. Patient with NG tube to low intermittent wall suction. (4) Acute respiratory failure with hypoxia Current Visit: Yes Status: Acute Plan to address problem: Status post extubation, now on BIPAP. Continue management by pulmonary (5) Intractable nausea and vomiting Current Visit: Yes Status: Acute Plan to address problem: Improved (6) Hypotension Current Visit: Yes Status: Acute Plan to address problem: Continue volume resuscitation and vasopressors prn maintaining MAP > 65. Subjective Date of service: 10/28/18 Principal diagnosis: n/v, abdominal pain,bowel obstruction,sepsis,ARF, s/p MV support Interval history: Pt is on BIPAP, awake, alert, remains on NGT. Objective - Vital Signs Vital signs: Vital Signs - 12hr 10/27/18 10/27/18 10/27/18 21:31 21:45 22:00 Temperature Pulse Rate 101 H 125 H 130 H Pulse Rate [ Anterior Bilateral] Pulse Rate [ From Monitor] Respiratory 23 25 H 22 Rate Respiratory Rate [Anterior Bilateral] Blood Pressure 117/40 117/40 129/57 O2 Sat by Pulse 97 98 97 Oximetry 10/27/18 10/27/18 10/27/18 22:15 22:31 22:45 Temperature Pulse Rate 101 H 105 H 107 H Pulse Rate [ Anterior Bilateral] Pulse Rate [ From Monitor] Respiratory 24 22 22 Rate Respiratory Rate [Anterior Bilateral] Blood Pressure 129/57 129/57 129/57 O2 Sat by Pulse 97 97 99 Oximetry 10/27/18 10/27/18 10/27/18 23:00 23:09 23:15 Temperature 98.9 F Pulse Rate 107 H 108 H 105 H Pulse Rate [ Anterior Bilateral] Pulse Rate [ From Monitor] Respiratory 27 H 28 H 17 Rate Respiratory Rate [Anterior Bilateral] Blood Pressure 151/68 151/68 151/68 O2 Sat by Pulse 97 98 97 Oximetry 10/27/18 10/27/18 10/28/18 23:31 23:45 00:00 Temperature Pulse Rate 100 H 100 H Pulse Rate [ Anterior Bilateral] Pulse Rate [ 108 H From Monitor] Respiratory 23 22 Rate Respiratory Rate [Anterior Bilateral] Blood Pressure 151/68 151/68 O2 Sat by Pulse 96 97 99 Oximetry 10/28/18 10/28/18 10/28/18 00:01 00:15 00:30 Temperature Pulse Rate 102 H 104 H 107 H Pulse Rate [ Anterior Bilateral] Pulse Rate [ From Monitor] Respiratory 20 23 25 H Rate Respiratory Rate [Anterior Bilateral] Blood Pressure 121/34 121/34 121/34 O2 Sat by Pulse 97 100 97 Oximetry 10/28/18 10/28/18 10/28/18 00:45 00:48 01:01 Temperature Pulse Rate 128 H 128 H Pulse Rate [ Anterior Bilateral] Pulse Rate [ From Monitor] Respiratory 22 21 22 Rate Respiratory Rate [Anterior Bilateral] Blood Pressure 121/34 118/43 O2 Sat by Pulse 99 97 Oximetry 10/28/18 10/28/18 10/28/18 01:15 01:31 01:45 Temperature Pulse Rate 129 H 129 H 129 H Pulse Rate [ Anterior Bilateral] Pulse Rate [ From Monitor] Respiratory 19 24 23 Rate Respiratory Rate [Anterior Bilateral] Blood Pressure 118/43 118/43 118/43 O2 Sat by Pulse 97 98 97 Oximetry 10/28/18 10/28/18 10/28/18 01:49 02:01 02:13 Temperature Pulse Rate 107 H Pulse Rate [ 113 H 110 H Anterior Bilateral] Pulse Rate [ From Monitor] Respiratory 24 Rate Respiratory 21 23 Rate [Anterior Bilateral] Blood Pressure 80/53 O2 Sat by Pulse 98 Oximetry 10/28/18 10/28/18 10/28/18 02:15 02:31 02:45 Temperature Pulse Rate 112 H 110 H 109 H Pulse Rate [ Anterior Bilateral] Pulse Rate [ From Monitor] Respiratory 23 23 23 Rate Respiratory Rate [Anterior Bilateral] Blood Pressure 130/45 130/45 130/45 O2 Sat by Pulse 97 97 97 Oximetry 10/28/18 10/28/18 10/28/18 03:00 03:10 03:15 Temperature Pulse Rate 109 H 107 H 112 H Pulse Rate [ Anterior Bilateral] Pulse Rate [ From Monitor] Respiratory 22 23 Rate Respiratory Rate [Anterior Bilateral] Blood Pressure 126/52 126/52 126/52 O2 Sat by Pulse 97 97 Oximetry 10/28/18 10/28/18 10/28/18 03:31 03:45 03:49 Temperature 98.3 F Pulse Rate 103 H 106 H Pulse Rate [ Anterior Bilateral] Pulse Rate [ From Monitor] Respiratory 18 17 Rate Respiratory Rate [Anterior Bilateral] Blood Pressure 126/52 126/52 O2 Sat by Pulse 97 97 Oximetry 10/28/18 10/28/18 10/28/18 04:00 04:15 04:31 Temperature Pulse Rate 114 H 105 H 101 H Pulse Rate [ Anterior Bilateral] Pulse Rate [ 105 H From Monitor] Respiratory 26 H 28 H 20 Rate Respiratory Rate [Anterior Bilateral] Blood Pressure 134/77 126/52 126/52 O2 Sat by Pulse 97 98 97 Oximetry 10/28/18 10/28/18 10/28/18 04:45 05:01 05:15 Temperature Pulse Rate 110 H 138 H 109 H Pulse Rate [ Anterior Bilateral] Pulse Rate [ From Monitor] Respiratory 25 H 23 26 H Rate Respiratory Rate [Anterior Bilateral] Blood Pressure 134/77 134/77 134/77 O2 Sat by Pulse 98 100 100 Oximetry 10/28/18 10/28/18 10/28/18 05:31 05:45 06:01 Temperature Pulse Rate 105 H 104 H 104 H Pulse Rate [ Anterior Bilateral] Pulse Rate [ From Monitor] Respiratory 22 22 24 Rate Respiratory Rate [Anterior Bilateral] Blood Pressure 138/68 138/68 128/30 O2 Sat by Pulse 98 97 98 Oximetry 10/28/18 10/28/18 10/28/18 06:15 06:31 06:35 Temperature Pulse Rate 128 H 130 H Pulse Rate [ 129 H Anterior Bilateral] Pulse Rate [ From Monitor] Respiratory 24 25 H Rate Respiratory 25 H Rate [Anterior Bilateral] Blood Pressure 138/68 138/68 O2 Sat by Pulse 97 97 Oximetry 10/28/18 10/28/18 10/28/18 06:45 07:00 07:15 Temperature Pulse Rate 128 H 130 H 130 H Pulse Rate [ Anterior Bilateral] Pulse Rate [ From Monitor] Respiratory 25 H 26 H 26 H Rate Respiratory Rate [Anterior Bilateral] Blood Pressure 138/68 152/38 128/30 O2 Sat by Pulse 98 97 96 Oximetry 10/28/18 10/28/18 10/28/18 07:31 07:40 07:49 Temperature Pulse Rate 131 H 131 H Pulse Rate [ 131 H Anterior Bilateral] Pulse Rate [ From Monitor] Respiratory 26 H 28 H Rate Respiratory 31 H Rate [Anterior Bilateral] Blood Pressure 128/30 124/58 O2 Sat by Pulse 95 94 Oximetry 10/28/18 10/28/18 08:00 08:06 Temperature 97.7 F Pulse Rate Pulse Rate [ 130 H Anterior Bilateral] Pulse Rate [ From Monitor] Respiratory Rate Respiratory 25 H Rate [Anterior Bilateral] Blood Pressure O2 Sat by Pulse Oximetry - General Appearance General appearance: appears stated age, chronically ill, frail EENT: ATNC, PERRL, mucous membranes moist Neck: no JVD Respiratory: Present: Decreased Breath Sounds Cardiology: regular, S1S2 Gastrointestinal: normoactive bowel sounds Integumentary: no rash, other (no edema ) Neurologic: no focal deficit, alert and oriented x3, strength 5/5, CN 3-12 intact Psychiatric: mood/affect appropriate, cooperative - Lab 10/28/18 04:25 10/28/18 04:25 Most recent lab results Calcium 8.0 mg/dL (8.4-10.2) L 10/28/18 04:25 Phosphorus 2.60 mg/dL (2.5-4.5) D 10/27/18 05:00 Magnesium 2.60 mg/dL (1.7-2.3) H 10/27/18 05:00 Medications & Allergies - Medications Allergies/Adverse Reactions: Allergies Sulfa (Sulfonamide Antibiotics) Allergy (Intermediate, Verified 10/22/18 16:30) Rash metoclopramide HCl [From Reglan] Allergy (Verified 10/22/18 16:30) Dizziness prochlorperazine [From Compazine] Allergy (Verified 10/22/18 16:30) NECK STIFFNESS Home Medications: Home Medications Medication Instructions Recorded Confirmed Last Taken Type Ondansetron 4 mg PO Q6HR PRN 12/05/16 10/22/18 10/29/17 History Propranolol HCl [Propranolol HCl 60 mg PO DAILY 12/05/16 10/22/18 10/30/17 22:00 History ER] QUEtiapine [SEROquel] 300 mg PO DAILY 12/05/16 10/22/18 10/30/17 History Lasix TAB 40 mg PO PRN PRN 12/07/16 10/22/18 10/24/17 History Percocet 10/325 mg 1 tab PO PRN PRN 12/07/16 10/22/18 10/30/17 History Albuterol Sulfate [Albuterol 0.63% 0.63 mg IH TID PRN 10/22/17 10/22/18 10/29/17 History NEBS] Active Medications: Generic Name Dose Route Start Last Admin Trade Name Freq PRN Reason Stop Dose Admin Acetaminophen 650 mg 10/22/18 20:10 Tylenol PO Q4H PRN Pain MILD(1-3)/Fever >100.5/PORTER Albuterol 2.5 mg 10/22/18 20:14 10/28/18 06:34 Proventil IH 2.5 mg Q4HRT PRN Administration Shortness Of Breath Albuterol/Ipratropium 1 ampul 10/26/18 10:15 10/28/18 07:49 Duoneb *Not For Prn Use* IH 1 ampul Q6HRT RICK Administration Budesonide 0.5 mg 10/23/18 08:00 10/28/18 07:49 Pulmicort IH 0.5 mg Q12HRT RICK Administration Dextrose 50 ml 10/26/18 23:40 10/27/18 00:20 D50w (25gm) Syringe IV 50 ml PRN PRN Administration Hypoglycemia Guaifenesin 600 mg 10/22/18 22:00 10/28/18 01:09 Mucinex Er PO Not Given BID RICK Heparin Sodium (Porcine) 5,000 unit 10/22/18 22:00 10/27/18 20:59 Heparin SUB-Q 5,000 unit Q12HR RICK Administration Hydralazine HCl 10 mg 10/22/18 21:41 Apresoline IV Q4HR PRN Blood Pressure Piperacillin Sod/Tazobactam Sod 4.5 gm in 100 mls @ 200 mls/hr 10/24/18 14:00 10/28/18 05:22 Zosyn/Ns 4.5gm/100ml IV 200 mls/hr Q8HR RICK Administration Dextrose/Sodium Chloride 1,000 mls @ 75 mls/hr 10/28/18 10:00 D5/0.45ns IV DIRECT RICK Lorazepam 0.5 mg 10/26/18 22:44 10/26/18 23:14 Ativan IV 0.5 mg Q4H PRN Administration Anxiety Methylprednisolone Sodium Succinate 80 mg 10/26/18 06:00 10/28/18 05:22 Solu-Medrol IV 80 mg Q8HR RICK Administration Metoprolol Tartrate 5 mg 10/27/18 16:05 10/28/18 03:10 Lopressor IV 5 mg Q6H RICK Administration Morphine Sulfate 2 mg 10/24/18 13:39 10/28/18 05:23 Morphine IV 2 mg Q4H PRN Administration Pain, Moderate (4-6) Ondansetron HCl 4 mg 10/24/18 10:05 10/25/18 17:26 Zofran IV 4 mg Q6H PRN Administration Nausea And Vomiting Oxycodone/Acetaminophen 1 tab 10/22/18 20:10 10/24/18 06:15 Percocet 5/325 PO 1 tab Q6H PRN Administration Pain, Moderate (4-6) Pantoprazole Sodium 40 mg 10/24/18 11:00 10/27/18 09:53 Protonix IV 40 mg QDAY RICK Administration Promethazine HCl 25 mg 10/22/18 20:10 10/22/18 21:21 Phenergan DC 25 mg Q6H PRN Administration Nausea And Vomiting Sodium Chloride 10 ml 10/22/18 22:00 10/27/18 21:00 Sodium Chloride Flush Syringe 10 Ml IV 10 ml BID RICK Administration Sodium Chloride 10 ml 10/22/18 20:10 10/24/18 18:32 Sodium Chloride Flush Syringe 10 Ml IV 10 ml PRN PRN Administration LINE FLUSH
[2018-10-28] MEDS ORDERED: CHLORASEPTIC MM PRN (10:16)
[2018-10-28] MEDS: PROTONIX IV SCH (10:27)
[2018-10-28] MEDS: D5/0.45NS 1,000 ML IV SCH (10:27)
[2018-10-28] MEDS: HEPARIN SUB-Q SCH ×2 (10:28→22:08)
[2018-10-28] MEDS ORDERED: LIDOCAINE VISCOUS 2% MM NR (10:30)
--- NOTE | 2018-10-28 12:13 | Progress Note ---
Assessment and Plan 73 yo F with gastroenteritis, pSBO Obstruction series 10/27 - improved small bowel and stomach dilatation. Obstructions series 10/28 - no significant change since previous study. NGT has been removed Plan: 1. NPO 2. nursing instructed to reinsert NGT once patient is able to be off bipap for a few minutes. Keep NGT to LIWS. Viscous lidocaine ordered. 3. strict I/Os 4. gentle IVF 5. prn pain control 6. repeat obstruction series in am 7. DVT ppx 8. agree with holding off on SBFT until respiratory status improved and less output from NGT Explained to patient and at bedside that abdominal process has not completely resolved and with patient being on BIPAP, stomach will once again fill with air causing discomfort and more trouble breathing. I explained that NGT is needed to help decompress air and fluid in stomach and small intestine to help resolve pSBO. If patient does not want NGT and condition worsens, surgical exploration will be the alternative. They understand and are agreeable to NGT placement. Thank you, please call with questions Subjective Date of service: 10/28/18 Narrative: Pt seen and examined. Back on BIPAP. Patient pulled out NGT overnight due to increasing anxiety. Seen by BLOW MOLDING MACHINE TENDER overnight and nursing instructed that it was ok to leave NGT out. No f/c, cp, sob. She states that her abdomen feels better and there is no pain. No n/v. No BM or flatus. Objective Vital Signs - 12hr 10/28/18 10/28/18 10/28/18 00:15 00:30 00:45 Temperature Pulse Rate 104 H 107 H 128 H Pulse Rate [ Anterior Bilateral] Pulse Rate [ From Monitor] Respiratory 23 25 H 22 Rate Respiratory Rate [Anterior Bilateral] Blood Pressure 121/34 121/34 121/34 O2 Sat by Pulse 100 97 99 Oximetry 10/28/18 10/28/18 10/28/18 00:48 01:01 01:15 Temperature Pulse Rate 128 H 129 H Pulse Rate [ Anterior Bilateral] Pulse Rate [ From Monitor] Respiratory 21 22 19 Rate Respiratory Rate [Anterior Bilateral] Blood Pressure 118/43 118/43 O2 Sat by Pulse 97 97 Oximetry 10/28/18 10/28/18 10/28/18 01:31 01:45 01:49 Temperature Pulse Rate 129 H 129 H Pulse Rate [ 113 H Anterior Bilateral] Pulse Rate [ From Monitor] Respiratory 24 23 Rate Respiratory 21 Rate [Anterior Bilateral] Blood Pressure 118/43 118/43 O2 Sat by Pulse 98 97 Oximetry 10/28/18 10/28/18 10/28/18 02:01 02:13 02:15 Temperature Pulse Rate 107 H 112 H Pulse Rate [ 110 H Anterior Bilateral] Pulse Rate [ From Monitor] Respiratory 24 23 Rate Respiratory 23 Rate [Anterior Bilateral] Blood Pressure 80/53 130/45 O2 Sat by Pulse 98 97 Oximetry 10/28/18 10/28/18 10/28/18 02:31 02:45 03:00 Temperature Pulse Rate 110 H 109 H 109 H Pulse Rate [ Anterior Bilateral] Pulse Rate [ From Monitor] Respiratory 23 23 22 Rate Respiratory Rate [Anterior Bilateral] Blood Pressure 130/45 130/45 126/52 O2 Sat by Pulse 97 97 97 Oximetry 10/28/18 10/28/18 10/28/18 03:10 03:15 03:31 Temperature Pulse Rate 107 H 112 H 103 H Pulse Rate [ Anterior Bilateral] Pulse Rate [ From Monitor] Respiratory 23 18 Rate Respiratory Rate [Anterior Bilateral] Blood Pressure 126/52 126/52 126/52 O2 Sat by Pulse 97 97 Oximetry 10/28/18 10/28/18 10/28/18 03:45 03:49 04:00 Temperature 98.3 F Pulse Rate 106 H 114 H Pulse Rate [ Anterior Bilateral] Pulse Rate [ 105 H From Monitor] Respiratory 17 26 H Rate Respiratory Rate [Anterior Bilateral] Blood Pressure 126/52 134/77 O2 Sat by Pulse 97 97 Oximetry 10/28/18 10/28/18 10/28/18 04:15 04:31 04:45 Temperature Pulse Rate 105 H 101 H 110 H Pulse Rate [ Anterior Bilateral] Pulse Rate [ From Monitor] Respiratory 28 H 20 25 H Rate Respiratory Rate [Anterior Bilateral] Blood Pressure 126/52 126/52 134/77 O2 Sat by Pulse 98 97 98 Oximetry 10/28/18 10/28/18 10/28/18 05:01 05:15 05:31 Temperature Pulse Rate 138 H 109 H 105 H Pulse Rate [ Anterior Bilateral] Pulse Rate [ From Monitor] Respiratory 23 26 H 22 Rate Respiratory Rate [Anterior Bilateral] Blood Pressure 134/77 134/77 138/68 O2 Sat by Pulse 100 100 98 Oximetry 10/28/18 10/28/18 10/28/18 05:45 06:01 06:15 Temperature Pulse Rate 104 H 104 H 128 H Pulse Rate [ Anterior Bilateral] Pulse Rate [ From Monitor] Respiratory 22 24 24 Rate Respiratory Rate [Anterior Bilateral] Blood Pressure 138/68 128/30 138/68 O2 Sat by Pulse 97 98 97 Oximetry 10/28/18 10/28/18 10/28/18 06:31 06:35 06:45 Temperature Pulse Rate 130 H 128 H Pulse Rate [ 129 H Anterior Bilateral] Pulse Rate [ From Monitor] Respiratory 25 H 25 H Rate Respiratory 25 H Rate [Anterior Bilateral] Blood Pressure 138/68 138/68 O2 Sat by Pulse 97 98 Oximetry 10/28/18 10/28/18 10/28/18 07:00 07:15 07:31 Temperature Pulse Rate 130 H 130 H 131 H Pulse Rate [ Anterior Bilateral] Pulse Rate [ From Monitor] Respiratory 26 H 26 H 26 H Rate Respiratory Rate [Anterior Bilateral] Blood Pressure 152/38 128/30 128/30 O2 Sat by Pulse 97 96 95 Oximetry 10/28/18 10/28/18 10/28/18 07:40 07:49 08:00 Temperature 97.7 F Pulse Rate 131 H Pulse Rate [ 131 H Anterior Bilateral] Pulse Rate [ From Monitor] Respiratory 28 H Rate Respiratory 31 H Rate [Anterior Bilateral] Blood Pressure 124/58 O2 Sat by Pulse 94 Oximetry 10/28/18 10/28/18 10/28/18 08:06 11:38 11:40 Temperature Pulse Rate 101 H Pulse Rate [ 130 H 101 H Anterior Bilateral] Pulse Rate [ From Monitor] Respiratory 25 H Rate Respiratory 25 H 25 H Rate [Anterior Bilateral] Blood Pressure 152/38 O2 Sat by Pulse 97 Oximetry 10/28/18 10/28/18 11:52 12:00 Temperature 97.7 F Pulse Rate Pulse Rate [ 101 H Anterior Bilateral] Pulse Rate [ From Monitor] Respiratory Rate Respiratory 25 H Rate [Anterior Bilateral] Blood Pressure O2 Sat by Pulse Oximetry - General physical appearance Narrative Exam: Gen: Awake and alert. CV: s1, S2+, tachy Resp: on BIPAP Abd: soft, NT, mildly distended Ext: no c/c/e - Labs 10/28/18 04:25 10/28/18 04:25 Diabetes panel 10/28/18 Range/Units 04:25 Sodium 147 H (137-145) mmol/L Potassium 3.8 (3.6-5.0) mmol/L Chloride 116.9 H (98-107) mmol/L Carbon Dioxide 16 L (22-30) mmol/L BUN 23 H (7-17) mg/dL Creatinine 1.2 (0.7-1.2) mg/dL Glucose 94 (65-100) mg/dL Calcium 8.0 L (8.4-10.2) mg/dL Calcium panel 10/28/18 Range/Units 04:25 Calcium 8.0 L (8.4-10.2) mg/dL Pituitary panel 10/28/18 Range/Units 04:25 Sodium 147 H (137-145) mmol/L Potassium 3.8 (3.6-5.0) mmol/L Chloride 116.9 H (98-107) mmol/L Carbon Dioxide 16 L (22-30) mmol/L BUN 23 H (7-17) mg/dL Creatinine 1.2 (0.7-1.2) mg/dL Glucose 94 (65-100) mg/dL Calcium 8.0 L (8.4-10.2) mg/dL Adrenal panel 10/28/18 Range/Units 04:25 Sodium 147 H (137-145) mmol/L Potassium 3.8 (3.6-5.0) mmol/L Chloride 116.9 H (98-107) mmol/L Carbon Dioxide 16 L (22-30) mmol/L BUN 23 H (7-17) mg/dL Creatinine 1.2 (0.7-1.2) mg/dL Glucose 94 (65-100) mg/dL Calcium 8.0 L (8.4-10.2) mg/dL
--- NOTE | 2018-10-28 13:32 | Progress Note ---
Assessment and Plan Assessment and plan: Sepsis. Continue Flagyl and Zosyn. Partial small bowel obstruction. Continue NGT if patient tolerates. Surgery following. Acute exacerbation COPD. Scheduled Duo Nebs and Pulmicort; albuterol when ne cessary Acute hypoxic respiratory failure, now extubated but requiring BiPAP Hypertension. IV hydralazine when necessary Lupus. Supportive care Fibromyalgia. supportive care History of opioid dependence ADWOA due to vasomotor nephropathy, now resolved History Interval history: Patient is 73-year-old female with history of hypertension, lupus, fibromyalgia, COPD, opioid dependence (follows Dr. Felix Muñiz at pain clinic) who presented to [facility] ED with complaints of intractable nausea, vomiting, diarrhea for 3 days. On initial presentation to the ED she was found to be tachycardiac with heart rate 113 BPM, leukocytosis with WBC 11.5, elevated BUN/Cr 51/2.1. Patient has history of COPD and at baseline does not require home oxygen use. She was admitted to [facility]. GI was consulted, she was evaluated. CT Abdomen revealed partial SBO versus ileus therefore surgeon consulted. Also patient became more short of breath, placed on BIPAP with no improvement then intubated 10/26/18 for acute resp failure and transferred to ICU. Obstruction series completed on 10/27 which showed improved but small bowel and stomach dilatation. Follow-up series on 10/28 showed no significant change since previous study. NG tube was removed due to patient not tolerating/refusing. Patient was placed back on BiPAP. No new issues overnight. Patient requiring BiPAP. Hospitalist Physical - Constitutional Vitals: Temp Pulse Resp BP Pulse Ox 97.7 F 101 H 25 H 152/38 97 10/28/18 12:00 10/28/18 11:52 10/28/18 11:52 10/28/18 11:38 10/28/18 11:38 General appearance: Present: mild distress, other - EENT Eyes: Present: PERRL, EOM intact ENT: hearing intact, clear oral mucosa, dentition normal - Neck Neck: Present: supple, normal ROM - Respiratory Respiratory effort: normal Respiratory: bilateral: CTA - Cardiovascular Rhythm: regular Heart Sounds: Present: S1 & S2. Absent: gallop, rub - Extremities Extremities: no ischemia, No edema, Full ROM - Abdominal General gastrointestinal: soft, non-tender, non-distended, normal bowel sounds - Integumentary Integumentary: Present: clear, warm, dry - Neurologic Neurologic: CNII-XII intact, moves all extremities Results - Labs CBC & Chem 7: 10/28/18 04:25 10/28/18 04:25 Labs: Laboratory Last Values WBC 23.5 K/mm3 (4.5-11.0) H 10/28/18 04:25 RBC 4.24 M/mm3 (3.65-5.03) 10/28/18 04:25 Hgb 13.6 gm/dl (10.1-14.3) 10/28/18 04:25 Hct 40.7 % (30.3-42.9) 10/28/18 04:25 MCV 96 fl (79-97) 10/28/18 04:25 MCH 32 pg (28-32) 10/28/18 04:25 MCHC 34 % (30-34) 10/28/18 04:25 RDW 14.5 % (13.2-15.2) 10/28/18 04:25 Plt Count 290 K/mm3 (140-440) 10/28/18 04:25 Lymph % (Auto) 10.2 % (13.4-35.0) L 10/23/18 04:32 [place] % (Auto) 14.7 % (0.0-7.3) H 10/23/18 04:32 Eos % (Auto) 0.1 % (0.0-4.3) 10/23/18 04:32 Baso % (Auto) 0.1 % (0.0-1.8) 10/23/18 04:32 Lymph # 0.7 K/mm3 (1.2-5.4) L 10/23/18 04:32 [place] # 1.0 K/mm3 (0.0-0.8) H 10/23/18 04:32 Eos # 0.0 K/mm3 (0.0-0.4) 10/23/18 04:32 Baso # 0.0 K/mm3 (0.0-0.1) 10/23/18 04:32 Seg Neutrophils % 74.9 % (40.0-70.0) H 10/23/18 04:32 Seg Neutrophils # 5.2 K/mm3 (1.8-7.7) 10/23/18 04:32 POC ABG pH 7.304 (7.35-7.45) L 10/27/18 05:16 POC ABG pCO2 37.6 (35-45) 10/26/18 17:32 POC ABG pO2 116 (80-105) H 10/27/18 05:16 POC ABG HCO3 14.6 (22-26 mml/L) 10/27/18 05:16 POC ABG Total CO2 15 (23-27mmol/L) 10/27/18 05:16 POC ABG O2 Sat 98 10/27/18 05:16 POC ABG Base Excess -12 ((-2) - (+3)mmol/L) 10/27/18 05:16 50 % 10/27/18 05:16 Sodium 147 mmol/L (137-145) H 10/28/18 04:25 Potassium 3.8 mmol/L (3.6-5.0) 10/28/18 04:25 Chloride 116.9 mmol/L (98-107) H 10/28/18 04:25 Carbon Dioxide 16 mmol/L (22-30) L 10/28/18 04:25 18 mmol/L 10/28/18 04:25 BUN 23 mg/dL (7-17) H 10/28/18 04:25 1.2 mg/dL (0.7-1.2) 10/28/18 04:25 Estimated GFR 44 ml/min 10/28/18 04:25 19 % 10/28/18 04:25 Glucose 94 mg/dL (65-100) 10/28/18 04:25 POC Glucose 71 (70-105) 10/28/18 10:02 Lactic Acid 1.60 mmol/L (0.7-2.0) 10/26/18 15:03 Calcium 8.0 mg/dL (8.4-10.2) L 10/28/18 04:25 Phosphorus 2.60 mg/dL (2.5-4.5) D 10/27/18 05:00 Magnesium 2.60 mg/dL (1.7-2.3) H 10/27/18 05:00 0.40 mg/dL (0.1-1.2) 10/22/18 15:54 AST 25 units/L (5-40) 10/22/18 15:54 ALT 22 units/L (7-56) 10/22/18 15:54 129 units/L (35-129) 10/22/18 15:54 7.6 g/dL (6.3-8.2) 10/22/18 15:54 3.4 g/dL (3.9-5) L 10/22/18 15:54 0.8 % 10/22/18 15:54 10 units/L (13-60) L 10/22/18 15:54 Dulce (Yellow) 10/22/18 19:10 Clear (Clear) 10/22/18 19:10 5.0 (5.0-7.0) 10/22/18 19:10 Ur Specific [place] 1.018 (1.003-1.030) 10/22/18 19:10 30 mg/dl mg/dL (Negative) 10/22/18 19:10 Neg mg/dL (Negative) 10/22/18 19:10 Tr mg/dL (Negative) 10/22/18 19:10 Neg (Negative) 10/22/18 19:10 Neg (Negative) 10/22/18 19:10 Neg (Negative) 10/22/18 19:10 < 2.0 mg/dL (<2.0) 10/22/18 19:10 Ur Leukocyte Esterase Neg (Negative) 10/22/18 19:10 1.0 /HPF (0.0-6.0) 10/22/18 19:10 3.0 /HPF (0.0-6.0) 10/22/18 19:10 Active Medications - Current Medications Current Medications: Generic Name Dose Route Start Last Admin Trade Name Freq PRN Reason Stop Dose Admin Acetaminophen 650 mg 10/22/18 20:10 Tylenol PO Q4H PRN Pain MILD(1-3)/Fever >100.5/PORTER Albuterol 2.5 mg 10/22/18 20:14 10/28/18 06:34 Proventil IH 2.5 mg Q4HRT PRN Administration Shortness Of Breath Albuterol/Ipratropium 1 ampul 10/28/18 12:00 10/28/18 11:40 Duoneb *Not For Prn Use* IH 1 ampul Q4HRT RICK Administration Budesonide 0.5 mg 10/23/18 08:00 10/28/18 07:49 Pulmicort IH 0.5 mg Q12HRT RICK Administration Dextrose 50 ml 10/26/18 23:40 10/27/18 00:20 D50w (25gm) Syringe IV 50 ml PRN PRN Administration Hypoglycemia Guaifenesin 600 mg 10/22/18 22:00 10/28/18 01:09 Mucinex Er PO Not Given BID RICK Heparin Sodium (Porcine) 5,000 unit 10/22/18 22:00 10/28/18 10:28 Heparin SUB-Q 5,000 unit Q12HR RICK Administration Hydralazine HCl 10 mg 10/22/18 21:41 Apresoline IV Q4HR PRN Blood Pressure Piperacillin Sod/Tazobactam Sod 4.5 gm in 100 mls @ 200 mls/hr 10/24/18 14:00 10/28/18 05:22 Zosyn/Ns 4.5gm/100ml IV 200 mls/hr Q8HR RICK Administration Dextrose/Sodium Chloride 1,000 mls @ 75 mls/hr 10/28/18 10:00 10/28/18 10:27 D5/0.45ns IV 75 mls/hr DIRECT RICK Administration Lidocaine HCl 15 ml 10/28/18 10:30 Lidocaine Viscous 2% MM 10/28/18 23:59 PREOP NR Lorazepam 0.5 mg 10/26/18 22:44 10/26/18 23:14 Ativan IV 0.5 mg Q4H PRN Administration Anxiety Methylprednisolone Sodium Succinate 40 mg 10/28/18 14:00 Solu-Medrol IV Q8HR [facility] Metoprolol Tartrate 5 mg 10/27/18 16:05 10/28/18 10:28 Lopressor IV 5 mg Q6H RICK Administration Morphine Sulfate 2 mg 10/24/18 13:39 10/28/18 05:23 Morphine IV 2 mg Q4H PRN Administration Pain, Moderate (4-6) Ondansetron HCl 4 mg 10/24/18 10:05 10/25/18 17:26 Zofran IV 4 mg Q6H PRN Administration Nausea And Vomiting Oxycodone/Acetaminophen 1 tab 10/22/18 20:10 10/24/18 06:15 Percocet 5/325 PO 1 tab Q6H PRN Administration Pain, Moderate (4-6) Pantoprazole Sodium 40 mg 10/24/18 11:00 10/28/18 10:27 Protonix IV 40 mg QDAY RICK Administration Phenol 1 spray 10/28/18 10:16 Chloraseptic MM PRN PRN Sore Throat Promethazine HCl 25 mg 10/22/18 20:10 10/22/18 21:21 Phenergan [place] 25 mg Q6H PRN Administration Nausea And Vomiting Sodium Chloride 10 ml 10/22/18 22:00 10/27/18 21:00 Sodium Chloride Flush Syringe 10 Ml IV 10 ml BID RICK Administration Sodium Chloride 10 ml 10/22/18 20:10 10/24/18 18:32 Sodium Chloride Flush Syringe 10 Ml IV 10 ml PRN PRN Administration LINE FLUSH Nutrition/Malnutrition Assess - Dietary Evaluation Nutrition/Malnutrition Findings: Nutrition Notes Start: 10/23/18 17:03 Freq: Status: Active Protocol: Document 10/23/18 17:03 (Rec: 10/23/18 17:03 [id number]) Nutrition Notes Need for Assessment generated from: electronic publisher Initial or Follow up Brief Note Subjective/Other Information Screened for skin risk. Garrick 19 points. Nutrition Intervention Revisit per MD consult or patient Sign Off request:
--- NOTE | 2018-10-28 13:40 | Progress Note ---
Assessment and Plan Assessment and plan: Sepsis. Continue Flagyl and Zosyn. Partial small bowel obstruction. Continue NGT if patient tolerates. Surgery following. Acute exacerbation COPD. Scheduled Duo Nebs and Pulmicort; albuterol when ne cessary Acute hypoxic respiratory failure, now extubated but requiring BiPAP Hypertension. IV hydralazine when necessary Lupus. Supportive care Fibromyalgia. supportive care History of opioid dependence ADWOA due to vasomotor nephropathy, now resolved Hospitalist Physical - Constitutional Vitals: Temp Pulse Resp BP Pulse Ox 97.7 F 101 H 25 H 152/38 97 10/28/18 12:00 10/28/18 11:52 10/28/18 11:52 10/28/18 11:38 10/28/18 11:38 General appearance: Present: mild distress, other Results - Labs CBC & Chem 7: 10/28/18 04:25 10/28/18 04:25 Labs: Laboratory Last Values WBC 23.5 K/mm3 (4.5-11.0) H 10/28/18 04:25 RBC 4.24 M/mm3 (3.65-5.03) 10/28/18 04:25 Hgb 13.6 gm/dl (10.1-14.3) 10/28/18 04:25 Hct 40.7 % (30.3-42.9) 10/28/18 04:25 MCV 96 fl (79-97) 10/28/18 04:25 MCH 32 pg (28-32) 10/28/18 04:25 MCHC 34 % (30-34) 10/28/18 04:25 RDW 14.5 % (13.2-15.2) 10/28/18 04:25 Plt Count 290 K/mm3 (140-440) 10/28/18 04:25 Lymph % (Auto) 10.2 % (13.4-35.0) L 10/23/18 04:32 [place] % (Auto) 14.7 % (0.0-7.3) H 10/23/18 04:32 Eos % (Auto) 0.1 % (0.0-4.3) 10/23/18 04:32 Baso % (Auto) 0.1 % (0.0-1.8) 10/23/18 04:32 Lymph # 0.7 K/mm3 (1.2-5.4) L 10/23/18 04:32 [place] # 1.0 K/mm3 (0.0-0.8) H 10/23/18 04:32 Eos # 0.0 K/mm3 (0.0-0.4) 10/23/18 04:32 Baso # 0.0 K/mm3 (0.0-0.1) 10/23/18 04:32 Seg Neutrophils % 74.9 % (40.0-70.0) H 10/23/18 04:32 Seg Neutrophils # 5.2 K/mm3 (1.8-7.7) 10/23/18 04:32 POC ABG pH 7.304 (7.35-7.45) L 10/27/18 05:16 POC ABG pCO2 37.6 (35-45) 10/26/18 17:32 POC ABG pO2 116 (80-105) H 10/27/18 05:16 POC ABG HCO3 14.6 (22-26 mml/L) 10/27/18 05:16 POC ABG Total CO2 15 (23-27mmol/L) 10/27/18 05:16 POC ABG O2 Sat 98 10/27/18 05:16 POC ABG Base Excess -12 ((-2) - (+3)mmol/L) 10/27/18 05:16 50 % 10/27/18 05:16 Sodium 147 mmol/L (137-145) H 10/28/18 04:25 Potassium 3.8 mmol/L (3.6-5.0) 10/28/18 04:25 Chloride 116.9 mmol/L (98-107) H 10/28/18 04:25 Carbon Dioxide 16 mmol/L (22-30) L 10/28/18 04:25 18 mmol/L 10/28/18 04:25 BUN 23 mg/dL (7-17) H 10/28/18 04:25 1.2 mg/dL (0.7-1.2) 10/28/18 04:25 Estimated GFR 44 ml/min 10/28/18 04:25 19 % 10/28/18 04:25 Glucose 94 mg/dL (65-100) 10/28/18 04:25 POC Glucose 71 (70-105) 10/28/18 10:02 Lactic Acid 1.60 mmol/L (0.7-2.0) 10/26/18 15:03 Calcium 8.0 mg/dL (8.4-10.2) L 10/28/18 04:25 Phosphorus 2.60 mg/dL (2.5-4.5) D 10/27/18 05:00 Magnesium 2.60 mg/dL (1.7-2.3) H 10/27/18 05:00 0.40 mg/dL (0.1-1.2) 10/22/18 15:54 AST 25 units/L (5-40) 10/22/18 15:54 ALT 22 units/L (7-56) 10/22/18 15:54 129 units/L (35-129) 10/22/18 15:54 7.6 g/dL (6.3-8.2) 10/22/18 15:54 3.4 g/dL (3.9-5) L 10/22/18 15:54 0.8 % 10/22/18 15:54 10 units/L (13-60) L 10/22/18 15:54 [place] (Yellow) 10/22/18 19:10 Clear (Clear) 10/22/18 19:10 5.0 (5.0-7.0) 10/22/18 19:10 Ur Specific [place] 1.018 (1.003-1.030) 10/22/18 19:10 30 mg/dl mg/dL (Negative) 10/22/18 19:10 Neg mg/dL (Negative) 10/22/18 19:10 Tr mg/dL (Negative) 10/22/18 19:10 Neg (Negative) 10/22/18 19:10 Neg (Negative) 10/22/18 19:10 Neg (Negative) 10/22/18 19:10 < 2.0 mg/dL (<2.0) 10/22/18 19:10 Ur Leukocyte Esterase Neg (Negative) 10/22/18 19:10 1.0 /HPF (0.0-6.0) 10/22/18 19:10 3.0 /HPF (0.0-6.0) 10/22/18 19:10 Active Medications - Current Medications Current Medications: Generic Name Dose Route Start Last Admin Trade Name Freq PRN Reason Stop Dose Admin Acetaminophen 650 mg 10/22/18 20:10 Tylenol PO Q4H PRN Pain MILD(1-3)/Fever >100.5/PORTER Albuterol 2.5 mg 10/22/18 20:14 10/28/18 06:34 Proventil IH 2.5 mg Q4HRT PRN Administration Shortness Of Breath Albuterol/Ipratropium 1 ampul 10/28/18 12:00 10/28/18 11:40 Duoneb *Not For Prn Use* IH 1 ampul Q4HRT RICK Administration Budesonide 0.5 mg 10/23/18 08:00 10/28/18 07:49 Pulmicort IH 0.5 mg Q12HRT RICK Administration Dextrose 50 ml 10/26/18 23:40 10/27/18 00:20 D50w (25gm) Syringe IV 50 ml PRN PRN Administration Hypoglycemia Guaifenesin 600 mg 10/22/18 22:00 10/28/18 01:09 Mucinex Er PO Not Given BID RICK Heparin Sodium (Porcine) 5,000 unit 10/22/18 22:00 10/28/18 10:28 Heparin SUB-Q 5,000 unit Q12HR RICK Administration Hydralazine HCl 10 mg 10/22/18 21:41 Apresoline IV Q4HR PRN Blood Pressure Piperacillin Sod/Tazobactam Sod 4.5 gm in 100 mls @ 200 mls/hr 10/24/18 14:00 10/28/18 05:22 Zosyn/Ns 4.5gm/100ml IV 200 mls/hr Q8HR RICK Administration Dextrose/Sodium Chloride 1,000 mls @ 75 mls/hr 10/28/18 10:00 10/28/18 10:27 D5/0.45ns IV 75 mls/hr DIRECT RICK Administration Lidocaine HCl 15 ml 10/28/18 10:30 Lidocaine Viscous 2% MM 10/28/18 23:59 PREOP NR Lorazepam 0.5 mg 10/26/18 22:44 10/26/18 23:14 Ativan IV 0.5 mg Q4H PRN Administration Anxiety Methylprednisolone Sodium Succinate 40 mg 10/28/18 14:00 Solu-Medrol IV Q8HR RICK Metoprolol Tartrate 5 mg 10/27/18 16:05 10/28/18 10:28 Lopressor IV 5 mg Q6H RICK Administration Morphine Sulfate 2 mg 10/24/18 13:39 10/28/18 05:23 Morphine IV 2 mg Q4H PRN Administration Pain, Moderate (4-6) Ondansetron HCl 4 mg 10/24/18 10:05 10/25/18 17:26 Zofran IV 4 mg Q6H PRN Administration Nausea And Vomiting Oxycodone/Acetaminophen 1 tab 10/22/18 20:10 10/24/18 06:15 Percocet 5/325 PO 1 tab Q6H PRN Administration Pain, Moderate (4-6) Pantoprazole Sodium 40 mg 10/24/18 11:00 10/28/18 10:27 Protonix IV 40 mg QDAY RICK Administration Phenol 1 spray 10/28/18 10:16 Chloraseptic MM PRN PRN Sore Throat Promethazine HCl 25 mg 10/22/18 20:10 10/22/18 21:21 Phenergan [place] 25 mg Q6H PRN Administration Nausea And Vomiting Sodium Chloride 10 ml 10/22/18 22:00 10/27/18 21:00 Sodium Chloride Flush Syringe 10 Ml IV 10 ml BID RICK Administration Sodium Chloride 10 ml 10/22/18 20:10 10/24/18 18:32 Sodium Chloride Flush Syringe 10 Ml IV 10 ml PRN PRN Administration LINE FLUSH Nutrition/Malnutrition Assess - Dietary Evaluation Nutrition/Malnutrition Findings: Nutrition Notes Start: 10/23/18 17:03 Freq: Status: Active Protocol: Document 10/23/18 17:03 (Rec: 10/23/18 17:03 [id number]) Nutrition Notes 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 Garrick 19 points. Nutrition Intervention Revisit per MD consult or patient Sign Off request:
[2018-10-28] MEDS ORDERED: DIPRIVAN 10 MG/ML 1,000 MG/100 ML BOTTLE IV ONE (19:00)
--- NOTE | 2018-10-28 19:36 | Progress Note ---
Subjective Date of service: 10/28/18 Principal diagnosis: hypercarbic respiratory failure Interval history: Called around 1850 for inbutation in CCU 253. Patient was obtunded on biPAP with O2 sat in low 90s. BP 112/87. K+ was >3.5 and NPO status confirmed. Pt preoxygenated with ambubag at FiO2 1.0 to 100% for 3 minutes. RSI with the following meds administered via IV push through PICC line: succinycholine 140mg, propofol 120mg IV and lidocaine 100mg IV. Cricoid pressure applied. 7.5ETT at 22cm (at the lips) with S3 Glidescope. Patient was HDS throughout intubation. Objective - Constitutional Vitals: Vital Signs - 12hr 10/28/18 10/28/18 10/28/18 07:31 07:40 07:45 Temperature Pulse Rate 131 H 131 H 133 H Pulse Rate [ Anterior Bilateral] Pulse Rate [ From Monitor] Respiratory 26 H 28 H 25 H Rate Respiratory Rate [Anterior Bilateral] Blood Pressure 128/30 124/58 124/58 O2 Sat by Pulse 95 94 94 Oximetry 10/28/18 10/28/18 10/28/18 07:49 08:00 08:06 Temperature 97.7 F Pulse Rate 131 H Pulse Rate [ 131 H 130 H Anterior Bilateral] Pulse Rate [ From Monitor] Respiratory 22 Rate Respiratory 31 H 25 H Rate [Anterior Bilateral] Blood Pressure 151/73 O2 Sat by Pulse 96 Oximetry 10/28/18 10/28/18 10/28/18 08:15 08:31 08:45 Temperature Pulse Rate 133 H 130 H 131 H Pulse Rate [ Anterior Bilateral] Pulse Rate [ From Monitor] Respiratory 25 H 21 22 Rate Respiratory Rate [Anterior Bilateral] Blood Pressure 151/73 151/73 151/73 O2 Sat by Pulse 96 97 97 Oximetry 10/28/18 10/28/18 10/28/18 09:01 09:15 09:31 Temperature Pulse Rate 130 H 129 H 132 H Pulse Rate [ Anterior Bilateral] Pulse Rate [ From Monitor] Respiratory 23 21 22 Rate Respiratory Rate [Anterior Bilateral] Blood Pressure 151/73 151/73 151/73 O2 Sat by Pulse 97 97 97 Oximetry 10/28/18 10/28/18 10/28/18 09:45 10:01 10:15 Temperature Pulse Rate 130 H 126 H 131 H Pulse Rate [ Anterior Bilateral] Pulse Rate [ From Monitor] Respiratory 25 H 24 24 Rate Respiratory Rate [Anterior Bilateral] Blood Pressure 151/73 151/73 127/68 O2 Sat by Pulse 98 97 98 Oximetry 10/28/18 10/28/18 10/28/18 10:31 10:45 11:01 Temperature Pulse Rate 131 H 123 H 124 H Pulse Rate [ Anterior Bilateral] Pulse Rate [ From Monitor] Respiratory 21 24 24 Rate Respiratory Rate [Anterior Bilateral] Blood Pressure 127/68 127/68 152/38 O2 Sat by Pulse 97 98 Oximetry 10/28/18 10/28/18 10/28/18 11:15 11:31 11:38 Temperature Pulse Rate 95 H 98 H 101 H Pulse Rate [ Anterior Bilateral] Pulse Rate [ From Monitor] Respiratory 23 23 25 H Rate Respiratory Rate [Anterior Bilateral] Blood Pressure 152/38 152/38 152/38 O2 Sat by Pulse 97 97 97 Oximetry 10/28/18 10/28/18 10/28/18 11:40 11:45 11:52 Temperature Pulse Rate 103 H Pulse Rate [ 101 H 101 H Anterior Bilateral] Pulse Rate [ From Monitor] Respiratory 26 H Rate Respiratory 25 H 25 H Rate [Anterior Bilateral] Blood Pressure 152/38 O2 Sat by Pulse 97 Oximetry 10/28/18 10/28/18 10/28/18 12:00 12:15 12:31 Temperature 97.7 F Pulse Rate 103 H 108 H 105 H Pulse Rate [ Anterior Bilateral] Pulse Rate [ 123 H From Monitor] Respiratory 24 28 H 23 Rate Respiratory Rate [Anterior Bilateral] Blood Pressure 139/46 139/46 139/46 O2 Sat by Pulse 98 97 97 Oximetry 10/28/18 10/28/18 10/28/18 12:45 13:00 13:15 Temperature Pulse Rate 118 H 106 H 109 H Pulse Rate [ Anterior Bilateral] Pulse Rate [ From Monitor] Respiratory 26 H 23 26 H Rate Respiratory Rate [Anterior Bilateral] Blood Pressure 139/46 138/36 138/36 O2 Sat by Pulse 97 97 97 Oximetry 10/28/18 10/28/18 10/28/18 13:31 13:45 14:00 Temperature Pulse Rate 109 H 109 H 108 H Pulse Rate [ Anterior Bilateral] Pulse Rate [ From Monitor] Respiratory 27 H 27 H 26 H Rate Respiratory Rate [Anterior Bilateral] Blood Pressure 138/36 138/36 127/80 O2 Sat by Pulse 96 96 89 Oximetry 05/28/19 05/28/19 05/28/19 14:15 14:31 14:45 Temperature Pulse Rate 113 H 114 H 112 H Pulse Rate [ Anterior Bilateral] Pulse Rate [ From Monitor] Respiratory 24 31 H 31 H Rate Respiratory Rate [Anterior Bilateral] Blood Pressure 127/80 127/80 127/80 O2 Sat by Pulse 94 91 94 Oximetry 10/28/18 10/28/18 10/28/18 15:01 15:15 15:31 Temperature Pulse Rate 111 H 110 H 110 H Pulse Rate [ Anterior Bilateral] Pulse Rate [ From Monitor] Respiratory 32 H 32 H 29 H Rate Respiratory Rate [Anterior Bilateral] Blood Pressure 122/62 122/62 122/62 O2 Sat by Pulse 95 95 95 Oximetry 10/28/18 10/28/18 10/28/18 15:45 16:00 16:01 Temperature 97.5 F L Pulse Rate 109 H 108 H Pulse Rate [ Anterior Bilateral] Pulse Rate [ 103 H From Monitor] Respiratory 34 H 34 H Rate Respiratory Rate [Anterior Bilateral] Blood Pressure 122/62 83/29 O2 Sat by Pulse 96 91 100 Oximetry 10/28/18 10/28/18 10/28/18 16:15 16:31 16:45 Temperature Pulse Rate 108 H 97 H 99 H Pulse Rate [ Anterior Bilateral] Pulse Rate [ From Monitor] Respiratory 34 H 35 H 32 H Rate Respiratory Rate [Anterior Bilateral] Blood Pressure 83/29 84/38 84/38 O2 Sat by Pulse 91 91 92 Oximetry 10/28/18 10/28/18 10/28/18 17:01 17:15 17:30 Temperature Pulse Rate 99 H 101 H Pulse Rate [ 106 H 102 H Anterior Bilateral] Pulse Rate [ From Monitor] Respiratory 35 H 28 H Rate Respiratory 33 H 29 H Rate [Anterior Bilateral] Blood Pressure 80/45 75/48 O2 Sat by Pulse 92 93 Oximetry 10/28/18 10/28/18 10/28/18 17:31 17:45 18:01 Temperature Pulse Rate 101 H 106 H 102 H Pulse Rate [ Anterior Bilateral] Pulse Rate [ From Monitor] Respiratory 31 H 36 H 30 H Rate Respiratory Rate [Anterior Bilateral] Blood Pressure 86/35 119/70 121/64 O2 Sat by Pulse 98 91 93 Oximetry 10/28/18 18:15 Temperature Pulse Rate 107 H Pulse Rate [ Anterior Bilateral] Pulse Rate [ From Monitor] Respiratory 37 H Rate Respiratory Rate [Anterior Bilateral] Blood Pressure 121/64 O2 Sat by Pulse 96 Oximetry - Labs CBC & Chem 7: 10/28/18 04:25 10/28/18 04:25 Labs: Abnormal lab results 10/28/18 10/28/18 10/28/18 Range/Units 04:25 04:25 15:37 WBC 23.5 H (4.5-11.0) K/mm3 Sodium 147 H (137-145) mmol/L Chloride 116.9 H (98-107) mmol/L Carbon Dioxide 16 L (22-30) mmol/L BUN 23 H (7-17) mg/dL POC Glucose 114 H (70-105) Calcium 8.0 L (8.4-10.2) mg/dL
--- NOTE | 2018-10-28 20:35 | XRay Report ---
PROCEDURE: XR CHEST 1V AP TECHNIQUE: Chest radiograph single view. HISTORY: ETT placement COMPARISONS: None . FINDINGS: Single frontal view of the chest was acquired and compared to the prior examination of October 26. The endotracheal tube extends in the right mainstem bronchus. This could be withdrawn approximately 3 cm and lie in the appropriate position. There is bilateral pleural effusions left greater than right. There is mild pulmonary edema. The nasogastric tube extends in the stomach. IMPRESSION: The endotracheal tube lies in the right mainstem bronchus This document is electronically signed by Luis Garcia MD., Oct 28 2018 08:33:07 PM ET
--- NOTE | 2018-10-28 22:36 | XRay Report ---
PROCEDURE: XR CHEST 1V AP TECHNIQUE: Chest radiograph single view. HISTORY: ET Tube placement COMPARISONS: None . FINDINGS: Heart: Normal. Mediastinum/Vessels: Normal. Lungs/Pleural space: Lungs are expanded. There are chronic appearing fibrotic changes with possible superimposed interstitial infiltrate or fluid. Heart failure is considered. There is a small left ple ural effusion. There is no pneumothorax.. Bony thorax: No acute osseous abnormality. Life support devices: The endotracheal tube is at the rekha and should be pulled back 2.5 cm. There is an NG tube in the stomach. There is a right-sided PICC line. The tip is in the superior vena cava. IMPRESSION: The heart size is normal. Lungs are expanded. There are chronic appearing fibrotic changes with possible superimposed interstit ial infiltrate or fluid. Heart failure is considered. There is a small left pleural effusion. There i s no pneumothorax.. The endotracheal tube is at the rekha and should be pulled back 2.5 cm. There is an NG tube in the s tomach. There is a right-sided PICC line. The tip is in the superior vena cava. This document is electronically signed by Dawit Middleton MD., Oct 28 2018 10:34:44 PM ET
[2018-10-28] MEDS: SODIUM CHLORIDE FLUSH SYRINGE 10 ML IV SCH (22:44)
[2018-10-29] MEDS: MORPHINE IV PRN ×2 (01:39→05:46)
[2018-10-29] MEDS: D5/0.45NS 1,000 ML IV SCH ×2 (01:40→12:55)
[2018-10-29] MEDS: LOPRESSOR IV SCH ×4 (03:53→21:53)
[2018-10-29 05:06] LABS: Hematocrit 36.6 % (30.3-42.9); Hemoglobin 12.1 gm/dl (10.1-14.3); Mean Corpuscular HGB Conc 33 % (30-34); Mean Corpuscular Volume 96 fl (79-97); Platelet Count 205 K/mm3 (140-440); Red Cell Distribution Width 14.7 % (13.2-15.2)
[2018-10-29 05:23] LABS: Calcium 7.9 mg/dL (8.4-10.2)
[2018-10-29] MEDS: SOLU-Medrol IV SCH ×2 (05:47→13:03)
[2018-10-29] MEDS: ZOSYN/NS 4.5GM/100ML 4.5 GM/100 ML VIAL IV SCH ×4 (05:47→21:45)
[2018-10-29] MEDS: DUONEB *Not for PRN Use IH SCH ×6 (05:49→23:20)
[2018-10-29 06:34] LABS: Basophils % (Manual) 0 % (0.0-1.8); Eosinophils % (Manual) 0 % (0.0-4.3); Large Platelets Few; Monocytes % (Manual) 0 % (0.0-7.3); Platelet Estimate Consistent w Auto; RBC Morphology Normal; Total Cells Counted 100
[2018-10-29] MEDS: PULMICORT IH SCH ×2 (07:48→19:48)
--- NOTE | 2018-10-29 08:54 | Progress Note ---
Assessment and Plan ARF ,reintubated on MV . Had RT bronchial intubation with contralateral atelectasis. detected rapidly, ETT repositioned Partial bowel obstruction. Still high WBC, causing mechanical disadvantage x breathing.Opioids ? Met acidosis ,AG normal Chronic pain medications, anti-psychotic therapy . Possible trigger bowel obstruction process Hypernatremia.Stable on 1/2 SS. Also on Zosyn Bradycardia episodes. On prn B stephon, propofol Rec Wean steroids to 40 mg every 8 hours, monitor WBC Sliding scale BS check Continue neb therapy f/u CXR Switch Lopressor to hydralazine for BP control Continue NG tube to suction if no bowel movements or flatness noted during the morning. Follow-up surgery recs Decreased RR as tolerated Sedation vacation during the day,monitor pain meds need. Give pain meds prn if appropriate. Anxious but re-directable at this point. Needs sedation at night with/wo pain measures, hopefully for SBT full wean in the morning. Discussed with patient,spouse and staff in detail. All questions answered. Critical care time was 45 minutes of [id number] evaluation and coordination of care Subjective Date of service: 10/29/18 Principal diagnosis: hypercarbic respiratory failure Interval history: Intubated,uncomfortable w/o SOB Objective Vital Signs - 12hr 10/28/18 10/28/18 10/28/18 21:01 21:17 21:31 Temperature Pulse Rate 107 H 100 H Pulse Rate [ 104 H Anterior Bilateral] Pulse Rate [ From Monitor] Respiratory 27 H 22 Rate Respiratory 22 Rate [Anterior Bilateral] Blood Pressure 122/59 92/28 O2 Sat by Pulse 95 99 Oximetry 10/28/18 10/28/18 10/28/18 21:32 21:51 22:00 Temperature Pulse Rate 78 101 H Pulse Rate [ 106 H Anterior Bilateral] Pulse Rate [ From Monitor] Respiratory 23 Rate Respiratory 22 Rate [Anterior Bilateral] Blood Pressure 98/64 106/55 O2 Sat by Pulse 99 Oximetry 10/28/18 10/28/18 10/28/18 22:30 23:00 23:03 Temperature Pulse Rate 104 H 100 H 98 H Pulse Rate [ Anterior Bilateral] Pulse Rate [ From Monitor] Respiratory 24 24 24 Rate Respiratory Rate [Anterior Bilateral] Blood Pressure 113/48 120/51 120/51 O2 Sat by Pulse 98 97 97 Oximetry 10/28/18 10/28/18 10/28/18 23:31 23:37 23:41 Temperature Pulse Rate 101 H 100 H Pulse Rate [ 102 H Anterior Bilateral] Pulse Rate [ From Monitor] Respiratory 24 Rate Respiratory 25 H Rate [Anterior Bilateral] Blood Pressure 120/58 120/58 O2 Sat by Pulse 97 97 Oximetry 10/28/18 10/29/18 10/29/18 23:56 00:00 00:30 Temperature 97.6 F Pulse Rate 98 H 102 H Pulse Rate [ 103 H Anterior Bilateral] Pulse Rate [ 112 H From Monitor] Respiratory 24 24 Rate Respiratory 25 H Rate [Anterior Bilateral] Blood Pressure 120/58 120/45 O2 Sat by Pulse 100 97 Oximetry 10/29/18 10/29/18 10/29/18 01:01 01:30 02:01 Temperature Pulse Rate 101 H 102 H 99 H Pulse Rate [ Anterior Bilateral] Pulse Rate [ From Monitor] Respiratory 24 24 24 Rate Respiratory Rate [Anterior Bilateral] Blood Pressure 117/38 130/43 119/52 O2 Sat by Pulse 97 97 98 Oximetry 10/29/18 10/29/18 10/29/18 02:30 03:00 03:30 Temperature Pulse Rate 100 H 100 H 104 H Pulse Rate [ Anterior Bilateral] Pulse Rate [ From Monitor] Respiratory 25 H 24 25 H Rate Respiratory Rate [Anterior Bilateral] Blood Pressure 124/58 124/53 140/47 O2 Sat by Pulse 98 98 98 Oximetry 10/29/18 10/29/18 10/29/18 03:53 04:00 04:01 Temperature 97.8 F Pulse Rate 102 H 85 Pulse Rate [ Anterior Bilateral] Pulse Rate [ 108 H From Monitor] Respiratory 22 24 Rate Respiratory Rate [Anterior Bilateral] Blood Pressure 140/47 132/42 O2 Sat by Pulse 98 98 Oximetry 10/29/18 10/29/18 10/29/18 04:31 04:58 05:01 Temperature Pulse Rate 88 89 93 H Pulse Rate [ Anterior Bilateral] Pulse Rate [ From Monitor] Respiratory 24 24 Rate Respiratory Rate [Anterior Bilateral] Blood Pressure 113/44 113/44 118/43 O2 Sat by Pulse 97 98 97 Oximetry 10/29/18 10/29/18 10/29/18 05:31 05:49 05:59 Temperature Pulse Rate 87 Pulse Rate [ 118 H 119 H Anterior Bilateral] Pulse Rate [ From Monitor] Respiratory 24 Rate Respiratory 27 H 27 H Rate [Anterior Bilateral] Blood Pressure 106/40 O2 Sat by Pulse 99 Oximetry 10/29/18 10/29/18 10/29/18 06:01 07:30 07:43 Temperature 98.5 F Pulse Rate 92 H 127 H Pulse Rate [ Anterior Bilateral] Pulse Rate [ From Monitor] Respiratory 24 Rate Respiratory Rate [Anterior Bilateral] Blood Pressure 98/32 115/40 O2 Sat by Pulse 99 96 Oximetry 10/29/18 07:49 Temperature Pulse Rate Pulse Rate [ 113 H Anterior Bilateral] Pulse Rate [ From Monitor] Respiratory Rate Respiratory 18 Rate [Anterior Bilateral] Blood Pressure O2 Sat by Pulse Oximetry Constitutional: alert, appears uncomfortable ENT: other (orally intubated) Neck: supple, no JVD Effort: mildly labored Ascultation: Bilateral: clear, diminished breath sounds Percussion: Bilateral: not dull Cardiovascular: regular rate and rhythm, other (Baseline tachycardia but less than yesterday) Gastrointestinal: other (soft and depressible. Decreased bowel sounds, no rebound tenderness) Integumentary: normal Extremities: no edema Neurologic: normal mental status, non-focal exam Psychiatric: anxious CBC and BMP: 10/29/18 04:30 10/29/18 04:30 ABG, PT/INR, D-dimer: ABG POC ABG pH 7.305 (7.35-7.45) L 10/29/18 05:26 POC ABG pCO2 30.5 (35-45) L 10/29/18 05:26 POC ABG pO2 75 (80-105) L 10/29/18 05:26 POC ABG HCO3 15.2 (22-26 mml/L) 10/29/18 05:26 POC ABG Total CO2 16 (23-27mmol/L) 10/29/18 05:26 POC ABG O2 Sat 94 10/29/18 05:26 Abnormal lab findings: Abnormal Labs 10/22/18 10/22/18 10/22/18 15:31 15:54 15:54 WBC 11.5 H RBC 5.35 H Hgb 17.4 H Hct 50.3 H MCV MCH 33 H MCHC 35 H Lymph % (Auto) 12.6 L [place] % (Auto) 14.8 H Lymph # [place] # 1.7 H Seg Neutrophils % 72.5 H Seg Neuts % (Manual) Lymphocytes % (Manual) Seg Neutrophils # 8.3 H Seg Neutrophils # Man Lymphocytes # (Manual) POC ABG pH POC ABG pCO2 POC ABG pO2 Sodium 134 L Potassium Chloride 88.1 L Carbon Dioxide BUN 51 H Creatinine 2.1 H Glucose 166 H POC Glucose Calcium Phosphorus Magnesium Albumin 3.4 L Lipase 10 L 10/23/18 10/23/18 10/23/18 04:32 04:32 10:53 WBC RBC Hgb Hct MCV MCH MCHC Lymph % (Auto) 10.2 L [place] % (Auto) 14.7 H Lymph # 0.7 L [place] # 1.0 H Seg Neutrophils % 74.9 H Seg Neuts % (Manual) Lymphocytes % (Manual) Seg Neutrophils # Seg Neutrophils # Man Lymphocytes # (Manual) POC ABG pH POC ABG pCO2 POC ABG pO2 Sodium Potassium 3.1 L D 3.5 L Chloride Carbon Dioxide BUN 41 H 37 H Creatinine Glucose 111 H 110 H POC Glucose Calcium 8.1 L 8.1 L Phosphorus Magnesium Albumin Lipase 10/24/18 10/24/18 10/25/18 05:34 05:34 04:51 WBC RBC Hgb Hct MCV MCH MCHC Lymph % (Auto) [place] % (Auto) Lymph # [place] # Seg Neutrophils % Seg Neuts % (Manual) Lymphocytes % (Manual) Seg Neutrophils # Seg Neutrophils # Man Lymphocytes # (Manual) POC ABG pH POC ABG pCO2 POC ABG pO2 Sodium Potassium 3.2 L 3.1 L Chloride 109.8 H 114.2 H Carbon Dioxide 17 L D BUN 21 H Creatinine Glucose 134 H 171 H POC Glucose Calcium 7.7 L 7.0 L Phosphorus 0.80 L* Magnesium Albumin Lipase 10/25/18 10/26/18 10/26/18 06:07 02:58 04:57 WBC RBC Hgb Hct MCV 99 H MCH 33 H MCHC Lymph % (Auto) [place] % (Auto) Lymph # [place] # Seg Neutrophils % Seg Neuts % (Manual) Lymphocytes % (Manual) Seg Neutrophils # Seg Neutrophils # Man Lymphocytes # (Manual) POC ABG pH 7.090 L 7.320 L POC ABG pCO2 65.0 H 32.8 L POC ABG pO2 76 L Sodium Potassium Chloride Carbon Dioxide BUN Creatinine Glucose POC Glucose Calcium Phosphorus Magnesium Albumin Lipase 10/26/18 10/26/18 10/26/18 06:03 06:03 11:52 WBC 23.8 H RBC Hgb 15.4 H Hct 46.1 H D MCV MCH MCHC Lymph % (Auto) [place] % (Auto) Lymph # [place] # Seg Neutrophils % Seg Neuts % (Manual) Lymphocytes % (Manual) Seg Neutrophils # Seg Neutrophils # Man Lymphocytes # (Manual) POC ABG pH POC ABG pCO2 POC ABG pO2 Sodium Potassium Chloride 109.5 H Carbon Dioxide 18 L BUN Creatinine Glucose 128 H POC Glucose 117 H Calcium 8.3 L D Phosphorus Magnesium Albumin Lipase 10/26/18 10/26/18 10/26/18 13:54 17:10 17:32 WBC RBC Hgb Hct MCV MCH MCHC Lymph % (Auto) [place] % (Auto) Lymph # [place] # Seg Neutrophils % Seg Neuts % (Manual) Lymphocytes % (Manual) Seg Neutrophils # Seg Neutrophils # Man Lymphocytes # (Manual) POC ABG pH 7.215 L POC ABG pCO2 31.8 L POC ABG pO2 69 L 204 H Sodium Potassium 3.0 L D Chloride 114.5 H Carbon Dioxide 21 L BUN Creatinine Glucose POC Glucose Calcium 7.6 L Phosphorus Magnesium 1.40 L Albumin Lipase 10/26/18 10/27/18 10/27/18 23:13 00:40 01:09 WBC RBC Hgb Hct MCV MCH MCHC Lymph % (Auto) [place] % (Auto) Lymph # [place] # Seg Neutrophils % Seg Neuts % (Manual) Lymphocytes % (Manual) Seg Neutrophils # Seg Neutrophils # Man Lymphocytes # (Manual) POC ABG pH POC ABG pCO2 POC ABG pO2 Sodium Potassium 3.4 L Chloride 115.0 H Carbon Dioxide 14 L D BUN Creatinine Glucose 228 H POC Glucose 48 L 264 H Calcium 7.1 L Phosphorus Magnesium Albumin Lipase 10/27/18 10/27/18 10/27/18 05:00 05:00 05:16 WBC 22.5 H RBC Hgb 14.7 H Hct 44.4 H MCV MCH MCHC Lymph % (Auto) [place] % (Auto) Lymph # [place] # Seg Neutrophils % Seg Neuts % (Manual) Lymphocytes % (Manual) Seg Neutrophils # Seg Neutrophils # Man Lymphocytes # (Manual) POC ABG pH 7.304 L POC ABG pCO2 POC ABG pO2 116 H Sodium Potassium Chloride 118.4 H Carbon Dioxide 16 L BUN Creatinine Glucose 123 H POC Glucose Calcium 7.7 L Phosphorus Magnesium 2.60 H Albumin Lipase 10/28/18 10/28/18 10/28/18 04:25 04:25 15:37 WBC 23.5 H RBC Hgb Hct MCV MCH MCHC Lymph % (Auto) [place] % (Auto) Lymph # [place] # Seg Neutrophils % Seg Neuts % (Manual) Lymphocytes % (Manual) Seg Neutrophils # Seg Neutrophils # Man Lymphocytes # (Manual) POC ABG pH POC ABG pCO2 POC ABG pO2 Sodium 147 H Potassium Chloride 116.9 H Carbon Dioxide 16 L BUN 23 H Creatinine Glucose POC Glucose 114 H Calcium 8.0 L Phosphorus Magnesium Albumin Lipase 10/28/18 10/28/18 10/28/18 20:33 22:07 23:31 WBC RBC Hgb Hct MCV MCH MCHC Lymph % (Auto) [place] % (Auto) Lymph # [place] # Seg Neutrophils % Seg Neuts % (Manual) Lymphocytes % (Manual) Seg Neutrophils # Seg Neutrophils # Man Lymphocytes # (Manual) POC ABG pH 7.202 L 7.235 L POC ABG pCO2 POC ABG pO2 71 L Sodium Potassium Chloride Carbon Dioxide BUN Creatinine Glucose POC Glucose 207 H Calcium Phosphorus Magnesium Albumin Lipase 10/29/18 10/29/18 10/29/18 04:30 04:30 05:26 WBC 21.1 H RBC Hgb Hct MCV MCH MCHC Lymph % (Auto) [place] % (Auto) Lymph # [place] # Seg Neutrophils % Seg Neuts % (Manual) 97.0 H Lymphocytes % (Manual) 3.0 L Seg Neutrophils # Seg Neutrophils # Man 20.5 H Lymphocytes # (Manual) 0.6 L POC ABG pH 7.305 L POC ABG pCO2 30.5 L POC ABG pO2 75 L Sodium 147 H Potassium 3.5 L Chloride 120.0 H Carbon Dioxide 17 L BUN 30 H Creatinine Glucose 246 H POC Glucose Calcium 7.9 L Phosphorus Magnesium Albumin Lipase 10/29/18 05:36 WBC RBC Hgb Hct MCV MCH MCHC Lymph % (Auto) [place] % (Auto) Lymph # [place] # Seg Neutrophils % Seg Neuts % (Manual) Lymphocytes % (Manual) Seg Neutrophils # Seg Neutrophils # Man Lymphocytes # (Manual) POC ABG pH POC ABG pCO2 POC ABG pO2 Sodium Potassium Chloride Carbon Dioxide BUN Creatinine Glucose POC Glucose 204 H Calcium Phosphorus Magnesium Albumin Lipase Chest x-ray: report reviewed, image reviewed Allied health notes reviewed: nursing
--- NOTE | 2018-10-29 09:22 | XRay Report ---
AP CHEST: HISTORY: Right bronchial intubation, atelectasis followup Compared to 10/28/18 at 2100 hrs. The endotracheal tube has been retracted slightly and terminates 1 cm from the rekha. Right arm PICC and nasogastric tube remain in good position. Heart size is stable and within normal limits. Bilateral areas of atelectasis appear stable. Trace left pleural effusion is suspected. IMPRESSION: No significant change.
--- NOTE | 2018-10-29 09:26 | Progress Note ---
Assessment and Plan - Patient Problems (1) Hypernatremia Current Visit: Yes Status: Acute Plan to address problem: pt remains on NGT, cont D51/2 at 100ml/hr. (2) Acute renal failure Current Visit: Yes Status: Acute Plan to address problem: Prerenal azotemia secondary to volume depletion, now stabilizing, pt remains non-oliguric. cont IVF to D51/2NS. Follow-up electrolytes and renal function. (3) Hypokalemia Current Visit: Yes Status: Acute Plan to address problem: Supplement potassium. Follow potassium level (4) Abdominal distention, non-gaseous Current Visit: Yes Status: Acute Plan to address problem: partial small bowel obstruction. General surgery on the case. Patient with NG tube to low intermittent wall suction. (5) Acute respiratory failure with hypoxia Current Visit: Yes Status: Acute Plan to address problem: Status post extubation, now on BIPAP. Continue management by pulmonary (6) Intractable nausea and vomiting Current Visit: Yes Status: Acute Plan to address problem: Improved (7) Hypotension Current Visit: Yes Status: Acute Plan to address problem: Continue volume resuscitation and vasopressors prn maintaining MAP > 65. Subjective Date of service: 10/29/18 Principal diagnosis: hypercarbic respiratory failure Interval history: Pt is on awake, alert, remains on NGT, not passing gas/no BMs reported Objective - Vital Signs Vital signs: Vital Signs - 12hr 10/28/18 10/28/18 10/28/18 21:31 21:32 21:51 Temperature Pulse Rate 100 H 78 Pulse Rate [ 106 H Anterior Bilateral] Pulse Rate [ From Monitor] Respiratory 22 Rate Respiratory 22 Rate [Anterior Bilateral] Blood Pressure 92/28 98/64 O2 Sat by Pulse 99 Oximetry 10/28/18 10/28/18 10/28/18 22:00 22:30 23:00 Temperature Pulse Rate 101 H 104 H 100 H Pulse Rate [ Anterior Bilateral] Pulse Rate [ From Monitor] Respiratory 23 24 24 Rate Respiratory Rate [Anterior Bilateral] Blood Pressure 106/55 113/48 120/51 O2 Sat by Pulse 99 98 97 Oximetry 10/28/18 10/28/18 10/28/18 23:03 23:31 23:37 Temperature Pulse Rate 98 H 101 H 100 H Pulse Rate [ Anterior Bilateral] Pulse Rate [ From Monitor] Respiratory 24 24 Rate Respiratory Rate [Anterior Bilateral] Blood Pressure 120/51 120/58 120/58 O2 Sat by Pulse 97 97 97 Oximetry 10/28/18 10/28/18 10/29/18 23:41 23:56 00:00 Temperature 97.6 F Pulse Rate 98 H Pulse Rate [ 102 H 103 H Anterior Bilateral] Pulse Rate [ 112 H From Monitor] Respiratory 24 Rate Respiratory 25 H 25 H Rate [Anterior Bilateral] Blood Pressure 120/58 O2 Sat by Pulse 100 Oximetry 10/29/18 10/29/18 10/29/18 00:30 01:01 01:30 Temperature Pulse Rate 102 H 101 H 102 H Pulse Rate [ Anterior Bilateral] Pulse Rate [ From Monitor] Respiratory 24 24 24 Rate Respiratory Rate [Anterior Bilateral] Blood Pressure 120/45 117/38 130/43 O2 Sat by Pulse 97 97 97 Oximetry 10/29/18 10/29/18 10/29/18 02:01 02:30 03:00 Temperature Pulse Rate 99 H 100 H 100 H Pulse Rate [ Anterior Bilateral] Pulse Rate [ From Monitor] Respiratory 24 25 H 24 Rate Respiratory Rate [Anterior Bilateral] Blood Pressure 119/52 124/58 124/53 O2 Sat by Pulse 98 98 98 Oximetry 10/29/18 10/29/18 10/29/18 03:30 03:53 04:00 Temperature 97.8 F Pulse Rate 104 H 102 H Pulse Rate [ Anterior Bilateral] Pulse Rate [ 108 H From Monitor] Respiratory 25 H 22 Rate Respiratory Rate [Anterior Bilateral] Blood Pressure 140/47 140/47 O2 Sat by Pulse 98 98 Oximetry 10/29/18 10/29/18 10/29/18 04:01 04:31 04:58 Temperature Pulse Rate 85 88 89 Pulse Rate [ Anterior Bilateral] Pulse Rate [ From Monitor] Respiratory 24 24 Rate Respiratory Rate [Anterior Bilateral] Blood Pressure 132/42 113/44 113/44 O2 Sat by Pulse 98 97 98 Oximetry 10/29/18 10/29/18 10/29/18 05:01 05:31 05:49 Temperature Pulse Rate 93 H 87 Pulse Rate [ 118 H Anterior Bilateral] Pulse Rate [ From Monitor] Respiratory 24 24 Rate Respiratory 27 H Rate [Anterior Bilateral] Blood Pressure 118/43 106/40 O2 Sat by Pulse 97 99 Oximetry 10/29/18 10/29/18 10/29/18 05:59 06:01 07:30 Temperature 98.5 F Pulse Rate 92 H Pulse Rate [ 119 H Anterior Bilateral] Pulse Rate [ From Monitor] Respiratory 24 Rate Respiratory 27 H Rate [Anterior Bilateral] Blood Pressure 98/32 O2 Sat by Pulse 99 Oximetry 10/29/18 10/29/18 07:43 07:49 Temperature Pulse Rate 127 H Pulse Rate [ 113 H Anterior Bilateral] Pulse Rate [ From Monitor] Respiratory Rate Respiratory 18 Rate [Anterior Bilateral] Blood Pressure 115/40 O2 Sat by Pulse 96 Oximetry - General Appearance General appearance: well-developed, appears stated age, chronically ill EENT: ATNC, PERRL, mucous membranes moist Neck: no JVD Respiratory: Present: Decreased Breath Sounds Cardiology: regular, S1S2 Gastrointestinal: tenderness, distended Integumentary: no rash, other (no edema ) Neurologic: no focal deficit, alert and oriented x3, strength 5/5, CN 3-12 intact Psychiatric: mood/affect appropriate, cooperative - Lab 10/29/18 04:30 10/29/18 04:30 Most recent lab results Calcium 7.9 mg/dL (8.4-10.2) L 10/29/18 04:30 Phosphorus 2.60 mg/dL (2.5-4.5) D 10/27/18 05:00 Magnesium 2.60 mg/dL (1.7-2.3) H 10/27/18 05:00 Medications & Allergies - Medications Allergies/Adverse Reactions: Allergies Sulfa (Sulfonamide Antibiotics) Allergy (Intermediate, Verified 10/22/18 16:30) Rash metoclopramide HCl [From Reglan] Allergy (Verified 10/22/18 16:30) Dizziness prochlorperazine [From Compazine] Allergy (Verified 10/22/18 16:30) NECK STIFFNESS Home Medications: Home Medications Medication Instructions Recorded Confirmed Last Taken Type Ondansetron 4 mg PO Q6HR PRN 12/05/16 10/22/18 10/29/17 History Propranolol HCl [Propranolol HCl 60 mg PO DAILY 12/05/16 10/22/18 10/30/17 22:00 History ER] QUEtiapine [SEROquel] 300 mg PO DAILY 12/05/16 10/22/18 10/30/17 History Lasix TAB 40 mg PO PRN PRN 12/07/16 10/22/18 10/24/17 History Percocet 10/325 mg 1 tab PO PRN PRN 12/07/16 10/22/18 10/30/17 History Albuterol Sulfate [Albuterol 0.63% 0.63 mg IH TID PRN 10/22/17 10/22/18 10/29/17 History NEBS] Active Medications: Generic Name Dose Route Start Last Admin Trade Name Freq PRN Reason Stop Dose Admin Acetaminophen 650 mg 10/22/18 20:10 Tylenol PO Q4H PRN Pain MILD(1-3)/Fever >100.5/PORTER Albuterol 2.5 mg 10/22/18 20:14 10/28/18 06:34 Proventil IH 2.5 mg Q4HRT PRN Administration Shortness Of Breath Albuterol/Ipratropium 1 ampul 10/28/18 12:00 10/29/18 07:49 Duoneb *Not For Prn Use* IH 1 ampul Q4HRT RICK Administration Budesonide 0.5 mg 10/23/18 08:00 10/29/18 07:48 Pulmicort IH 0.5 mg Q12HRT RICK Administration Dextrose 50 ml 10/26/18 23:40 10/27/18 00:20 D50w (25gm) Syringe IV 50 ml PRN PRN Administration Hypoglycemia Heparin Sodium (Porcine) 5,000 unit 10/22/18 22:00 10/28/18 22:08 Heparin SUB-Q 5,000 unit Q12HR RICK Administration Hydralazine HCl 10 mg 10/22/18 21:41 Apresoline IV Q4HR PRN Blood Pressure Piperacillin Sod/Tazobactam Sod 4.5 gm in 100 mls @ 200 mls/hr 10/24/18 14:00 10/29/18 05:52 Zosyn/Ns 4.5gm/100ml IV 10/30/18 13:59 200 mls/hr Q8HR RICK Administration Dextrose/Sodium Chloride 1,000 mls @ 100 mls/hr 10/28/18 10:00 10/29/18 01:40 D5/0.45ns IV 75 mls/hr DIRECT RICK Administration Lorazepam 0.5 mg 10/26/18 22:44 10/26/18 23:14 Ativan IV 0.5 mg Q4H PRN Administration Anxiety Methylprednisolone Sodium Succinate 40 mg 10/28/18 14:00 10/29/18 05:47 Solu-Medrol IV 40 mg Q8HR RICK Administration Metoprolol Tartrate 5 mg 10/27/18 16:05 10/29/18 03:53 Lopressor IV 5 mg Q6H RICK Administration Morphine Sulfate 2 mg 10/24/18 13:39 10/29/18 05:46 Morphine IV 2 mg Q4H PRN Administration Pain, Moderate (4-6) Ondansetron HCl 4 mg 10/24/18 10:05 10/25/18 17:26 Zofran IV 4 mg Q6H PRN Administration Nausea And Vomiting Oxycodone/Acetaminophen 1 tab 10/22/18 20:10 10/24/18 06:15 Percocet 5/325 PO 1 tab Q6H PRN Administration Pain, Moderate (4-6) Pantoprazole Sodium 40 mg 10/24/18 11:00 10/28/18 10:27 Protonix IV 40 mg QDAY RICK Administration Phenol 1 spray 10/28/18 10:16 Chloraseptic MM PRN PRN Sore Throat Promethazine HCl 25 mg 10/22/18 20:10 10/22/18 21:21 Phenergan [place] 25 mg Q6H PRN Administration Nausea And Vomiting Sodium Chloride 10 ml 10/22/18 22:00 10/28/18 22:44 Sodium Chloride Flush Syringe 10 Ml IV Not Given BID RICK Sodium Chloride 10 ml 10/22/18 20:10 10/24/18 18:32 Sodium Chloride Flush Syringe 10 Ml IV 10 ml PRN PRN Administration LINE FLUSH
[2018-10-29] MEDS: PROTONIX IV SCH (10:21)
[2018-10-29] MEDS: SODIUM CHLORIDE FLUSH SYRINGE 10 ML IV SCH (10:22)
[2018-10-29] MEDS: HEPARIN SUB-Q SCH ×2 (10:23→21:44)
[2018-10-29] MEDS: fentaNYL DRIP Premix 2,000 MCG/100 ML BAG IV SCH (10:38)
--- NOTE | 2018-10-29 12:39 | Gastroenterology Progress Note ---
Assessment and Plan 1. Abdominal distention, n/v - ileus vs SBO based on imaging; NG in place and pt has had improved abdominal distention since that time. f/u X-ray showed improvement in small bowel dilatation as well. hold off on small bowel study at this time given respiratory condition and cont current supportive care/NG tube 2. Respiratory failure Subjective Date of service: 10/29/18 Principal diagnosis: colitis, N/V/D Interval history: Patient remains in ICU on vent. NGT in place with minimal output. No BM or flatus. Objective - Constitutional Vitals: Temp Pulse Resp BP Pulse Ox 98.7 F 110 H 25 H 130/83 100 10/29/18 12:00 10/29/18 10:21 10/29/18 09:31 10/29/18 10:21 10/29/18 09:31 General appearance: other (on vent) - Respiratory Respiratory: bilateral: diminished - Cardiovascular Rhythm: other (tachycardia) - Gastrointestinal General gastrointestinal: Present: soft, distended (slightly), hypoactive bowel sounds - Labs CBC & Chem 7: 10/29/18 04:30 10/29/18 04:30 Labs: Laboratory Results - last 24 hr 10/28/18 10/28/18 10/28/18 15:37 20:33 22:07 WBC RBC Hgb Hct MCV MCH MCHC RDW Plt Count Add Manual Diff Total Counted Seg Neuts % (Manual) Band Neutrophils % Lymphocytes % (Manual) Reactive Lymphs % (Man) Monocytes % (Manual) Eosinophils % (Manual) Basophils % (Manual) Metamyelocytes % Myelocytes % Promyelocytes % Blast Cells % Nucleated RBC % Seg Neutrophils # Man Band Neutrophils # Lymphocytes # (Manual) Abs React Lymphs (Man) Monocytes # (Manual) Eosinophils # (Manual) Basophils # (Manual) Metamyelocytes # Myelocytes # Promyelocytes # Blast Cells # WBC Morphology Hypersegmented Neuts Hyposegmented Neuts Hypogranular Neuts Smudge Cells Toxic Granulation Toxic Vacuolation Dohle Bodies Pelger-Huet Anomaly Magda Rods Platelet Estimate Clumped Platelets Plt Clumps, EDTA Large Platelets Giant Platelets Platelet Satelliting Plt Morphology Comment RBC Morphology Dimorphic RBCs Polychromasia Hypochromasia Poikilocytosis Anisocytosis Microcytosis Macrocytosis Spherocytes Pappenheimer Bodies Sickle Cells Target Cells Tear Drop Cells Ovalocytes Helmet Cells [place] Bodies [place] Rings Nathalie Cells Bite Cells Crenated Cell Elliptocytes Acanthocytes (Spur) Rouleaux Hemoglobin C Crystals Schistocytes Malaria parasites Janes Bodies Hem Pathologist Commnt POC ABG pH 7.202 L 7.235 L POC ABG pCO2 38.4 36.2 POC ABG pO2 71 L 84 POC ABG HCO3 15.1 15.3 POC ABG Total CO2 16 16 POC ABG O2 Sat 90 94 POC ABG Base Excess -13 -12 FiO2 40 40 Sodium Potassium Chloride Carbon Dioxide Anion Gap BUN Creatinine Estimated GFR BUN/Creatinine Ratio Glucose POC Glucose 114 H Calcium 10/28/18 10/29/18 10/29/18 23:31 04:30 04:30 WBC 21.1 H RBC 3.80 Hgb 12.1 Hct 36.6 MCV 96 MCH 32 MCHC 33 RDW 14.7 Plt Count 205 Add Manual Diff Complete Total Counted 100 Seg Neuts % (Manual) 97.0 H Band Neutrophils % 0 Lymphocytes % (Manual) 3.0 L Reactive Lymphs % (Man) 0 Monocytes % (Manual) 0 Eosinophils % (Manual) 0 Basophils % (Manual) 0 Metamyelocytes % 0 Myelocytes % 0 Promyelocytes % 0 Blast Cells % 0 Nucleated RBC % Not Reportable Seg Neutrophils # Man 20.5 H Band Neutrophils # 0.0 Lymphocytes # (Manual) 0.6 L Abs React Lymphs (Man) 0.0 Monocytes # (Manual) 0.0 Eosinophils # (Manual) 0.0 Basophils # (Manual) 0.0 Metamyelocytes # 0.0 Myelocytes # 0.0 Promyelocytes # 0.0 Blast Cells # 0.0 WBC Morphology Not Reportable Hypersegmented Neuts Not Reportable Hyposegmented Neuts Not Reportable Hypogranular Neuts Not Reportable Smudge Cells Not Reportable Toxic Granulation Not Reportable Toxic Vacuolation Not Reportable Dohle Bodies Not Reportable Pelger-Huet Anomaly Not Reportable Magda Rods Not Reportable Platelet Estimate Consistent w auto Clumped Platelets Not Reportable Plt Clumps, EDTA Not Reportable Large Platelets Few Giant Platelets Not Reportable Platelet Satelliting Not Reportable Plt Morphology Comment Not Reportable RBC Morphology Normal Dimorphic RBCs Not Reportable Polychromasia Not Reportable Hypochromasia Not Reportable Poikilocytosis Not Reportable Anisocytosis Not Reportable Microcytosis Not Reportable Macrocytosis Not Reportable Spherocytes Not Reportable Pappenheimer Bodies Not Reportable Sickle Cells Not Reportable Target Cells Not Reportable Tear Drop Cells Not Reportable Ovalocytes Not Reportable Helmet Cells Not Reportable [place] Bodies Not Reportable [place] Rings Not Reportable Tanner Cells Not Reportable Bite Cells Not Reportable Crenated Cell Not Reportable Elliptocytes Not Reportable Acanthocytes (Spur) Not Reportable Rouleaux Not Reportable Hemoglobin C Crystals Not Reportable Schistocytes Not Reportable Malaria parasites Not Reportable Janes Bodies Not Reportable Hem Pathologist Commnt No POC ABG pH POC ABG pCO2 POC ABG pO2 POC ABG HCO3 POC ABG Total CO2 POC ABG O2 Sat POC ABG Base Excess FiO2 Sodium 147 H Potassium 3.5 L Chloride 120.0 H Carbon Dioxide 17 L Anion Gap 14 BUN 30 H Creatinine 1.2 Estimated GFR 44 BUN/Creatinine Ratio 25 Glucose 246 H POC Glucose 207 H Calcium 7.9 L 10/29/18 10/29/18 10/29/18 05:26 05:36 11:39 WBC RBC Hgb Hct MCV MCH MCHC RDW Plt Count Add Manual Diff Total Counted Seg Neuts % (Manual) Band Neutrophils % Lymphocytes % (Manual) Reactive Lymphs % (Man) Monocytes % (Manual) Eosinophils % (Manual) Basophils % (Manual) Metamyelocytes % Myelocytes % Promyelocytes % Blast Cells % Nucleated RBC % Seg Neutrophils # Man Band Neutrophils # Lymphocytes # (Manual) Abs React Lymphs (Man) Monocytes # (Manual) Eosinophils # (Manual) Basophils # (Manual) Metamyelocytes # Myelocytes # Promyelocytes # Blast Cells # WBC Morphology Hypersegmented Neuts Hyposegmented Neuts Hypogranular Neuts Smudge Cells Toxic Granulation Toxic Vacuolation Dohle Bodies Pelger-Huet Anomaly Magda Rods Platelet Estimate Clumped Platelets Plt Clumps, EDTA Large Platelets Giant Platelets Platelet Satelliting Plt Morphology Comment RBC Morphology Dimorphic RBCs Polychromasia Hypochromasia Poikilocytosis Anisocytosis Microcytosis Macrocytosis Spherocytes Pappenheimer Bodies Sickle Cells Target Cells Tear Drop Cells Ovalocytes Helmet Cells [place] Bodies [place] Rings Tanner Cells Bite Cells Crenated Cell Elliptocytes Acanthocytes (Spur) Rouleaux Hemoglobin C Crystals Schistocytes Malaria parasites Janes Bodies Hem Pathologist Commnt POC ABG pH 7.305 L POC ABG pCO2 30.5 L POC ABG pO2 75 L POC ABG HCO3 15.2 POC ABG Total CO2 16 POC ABG O2 Sat 94 POC ABG Base Excess -11 FiO2 40 Sodium Potassium Chloride Carbon Dioxide Anion Gap BUN Creatinine Estimated GFR BUN/Creatinine Ratio Glucose POC Glucose 204 H 224 H Calcium
[2018-10-29] MEDS: HumaLOG SUB-Q SCH ×2 (13:00→18:22)
--- NOTE | 2018-10-29 14:01 | Progress Note ---
Assessment and Plan Assessment and plan: Sepsis. Continue Flagyl and Zosyn. Partial small bowel obstruction. Continue NGT. f/u X-ray showed improvement in small bowel dilatation as well. Surgery and GI following. Acute exacerbation COPD. Scheduled Duo Nebs and Pulmicort; albuterol when necessary Acute hypoxic respiratory failure. Patient will be intubated on 10/20/18 and currently on mechanical ventilation. Hypertension. IV hydralazine when necessary Lupus. Supportive care Fibromyalgia. supportive care History of opioid dependence ADWOA due to vasomotor nephropathy, now resolved History Interval history: Patient is 73-year-old female with history of hypertension, lupus, fibromyalgia, COPD, opioid dependence (follows Dr. Felix Muñiz at pain clinic) who presented to [facility] with complaints of intractable nausea, vomiting, diarrhea for 3 days. On initial presentation to the ED she was found to be tachycardiac with heart rate 113 BPM, leukocytosis with WBC 11.5, elevated BUN/Cr 51/2.1. Patient has history of COPD and at baseline does not require home oxygen use. She was admitted to [facility]. GI was consulted, she was evaluated. CT Abdomen revealed partial SBO versus ileus therefore surgeon consulted. Also patient became more short of breath, placed on BIPAP with no improvement then intubated 10/26/18 for acute resp failure and transferred to ICU. Obstruction series completed on 10/27 which showed improved but small bowel and stomach dilatation. Follow-up series on 10/28 showed no significant change since previous study. NG tube was removed due to patient not tolerating/refusing. Patient was placed back on BiPAP but decompensated on the night of 10/28/18 and had to be reintubated. Patient currently on mechanical ventilation.. Hospitalist Physical - Constitutional Vitals: Temp Pulse Resp BP Pulse Ox 98.7 F 101 H 26 H 132/72 94 10/29/18 12:00 10/29/18 13:03 10/29/18 13:03 10/29/18 12:34 10/29/18 12:34 General appearance: Present: mild distress, other - EENT Eyes: Present: PERRL, EOM intact ENT: hearing intact, clear oral mucosa, dentition normal - Neck Neck: Present: supple, normal ROM - Respiratory Respiratory effort: normal Respiratory: bilateral: CTA - Cardiovascular Rhythm: regular Heart Sounds: Present: S1 & S2. Absent: gallop, rub - Extremities Extremities: no ischemia, No edema, Full ROM - Abdominal General gastrointestinal: soft, non-tender, non-distended, normal bowel sounds - Integumentary Integumentary: Present: clear, warm, dry - Neurologic Neurologic: CNII-XII intact, moves all extremities Results - Labs CBC & Chem 7: 10/29/18 04:30 10/29/18 04:30 Labs: Laboratory Last Values WBC 21.1 K/mm3 (4.5-11.0) H 10/29/18 04:30 RBC 3.80 M/mm3 (3.65-5.03) 10/29/18 04:30 Hgb 12.1 gm/dl (10.1-14.3) 10/29/18 04:30 Hct 36.6 % (30.3-42.9) 10/29/18 04:30 MCV 96 fl (79-97) 10/29/18 04:30 MCH 32 pg (28-32) 10/29/18 04:30 MCHC 33 % (30-34) 10/29/18 04:30 RDW 14.7 % (13.2-15.2) 10/29/18 04:30 Plt Count 205 K/mm3 (140-440) 10/29/18 04:30 Lymph % (Auto) 10.2 % (13.4-35.0) L 10/23/18 04:32 [place] % (Auto) 14.7 % (0.0-7.3) H 10/23/18 04:32 Eos % (Auto) 0.1 % (0.0-4.3) 10/23/18 04:32 Baso % (Auto) 0.1 % (0.0-1.8) 10/23/18 04:32 Lymph # 0.7 K/mm3 (1.2-5.4) L 10/23/18 04:32 [place] # 1.0 K/mm3 (0.0-0.8) H 10/23/18 04:32 Eos # 0.0 K/mm3 (0.0-0.4) 10/23/18 04:32 Baso # 0.0 K/mm3 (0.0-0.1) 10/23/18 04:32 Add Manual Diff Complete 10/29/18 04:30 Total Counted 100 10/29/18 04:30 Seg Neutrophils % 74.9 % (40.0-70.0) H 10/23/18 04:32 Seg Neuts % (Manual) 97.0 % (40.0-70.0) H 10/29/18 04:30 0 % 10/29/18 04:30 3.0 % (13.4-35.0) L 10/29/18 04:30 Reactive Lymphs % (Man) 0 % 10/29/18 04:30 0 % (0.0-7.3) 10/29/18 04:30 0 % (0.0-4.3) 10/29/18 04:30 0 % (0.0-1.8) 10/29/18 04:30 0 % 10/29/18 04:30 0 % 10/29/18 04:30 0 % 10/29/18 04:30 0 % 10/29/18 04:30 Nucleated RBC % Not Reportable 10/29/18 04:30 Seg Neutrophils # 5.2 K/mm3 (1.8-7.7) 10/23/18 04:32 Seg Neutrophils # Man 20.5 K/mm3 (1.8-7.7) H 10/29/18 04:30 Band Neutrophils # 0.0 K/mm3 10/29/18 04:30 0.6 K/mm3 (1.2-5.4) L 10/29/18 04:30 Abs React Lymphs (Man) 0.0 K/mm3 10/29/18 04:30 0.0 K/mm3 (0.0-0.8) 10/29/18 04:30 0.0 K/mm3 (0.0-0.4) 10/29/18 04:30 0.0 K/mm3 (0.0-0.1) 10/29/18 04:30 0.0 K/mm3 10/29/18 04:30 0.0 K/mm3 10/29/18 04:30 0.0 K/mm3 10/29/18 04:30 Blast Cells # 0.0 K/mm3 10/29/18 04:30 WBC Morphology Not Reportable 10/29/18 04:30 Hypersegmented Neuts Not Reportable 10/29/18 04:30 Hyposegmented Neuts Not Reportable 10/29/18 04:30 Hypogranular Neuts Not Reportable 10/29/18 04:30 Not Reportable 10/29/18 04:30 Not Reportable 10/29/18 04:30 Not Reportable 10/29/18 04:30 Not Reportable 10/29/18 04:30 Not Reportable 10/29/18 04:30 Not Reportable 10/29/18 04:30 Consistent w auto 10/29/18 04:30 Not Reportable 10/29/18 04:30 Plt Clumps, EDTA Not Reportable 10/29/18 04:30 Few 10/29/18 04:30 Not Reportable 10/29/18 04:30 Not Reportable 10/29/18 04:30 Plt Morphology Comment Not Reportable 10/29/18 04:30 RBC Morphology Normal 10/29/18 04:30 Dimorphic RBCs Not Reportable 10/29/18 04:30 Not Reportable 10/29/18 04:30 Not Reportable 10/29/18 04:30 Not Reportable 10/29/18 04:30 Not Reportable 10/29/18 04:30 Not Reportable 10/29/18 04:30 Not Reportable 10/29/18 04:30 Not Reportable 10/29/18 04:30 Not Reportable 10/29/18 04:30 Not Reportable 10/29/18 04:30 Not Reportable 10/29/18 04:30 Not Reportable 10/29/18 04:30 Not Reportable 10/29/18 04:30 Not Reportable 10/29/18 04:30 Not Reportable 10/29/18 04:30 Not Reportable 10/29/18 04:30 Not Reportable 10/29/18 04:30 Not Reportable 10/29/18 04:30 Not Reportable 10/29/18 04:30 Not Reportable 10/29/18 04:30 Acanthocytes (Spur) Not Reportable 10/29/18 04:30 Rouleaux Not Reportable 10/29/18 04:30 Not Reportable 10/29/18 04:30 Not Reportable 10/29/18 04:30 Not Reportable 10/29/18 04:30 Not Reportable 10/29/18 04:30 Hem Pathologist Commnt No 10/29/18 04:30 POC ABG pH 7.305 (7.35-7.45) L 10/29/18 05:26 POC ABG pCO2 30.5 (35-45) L 10/29/18 05:26 POC ABG pO2 75 (80-105) L 10/29/18 05:26 POC ABG HCO3 15.2 (22-26 mml/L) 10/29/18 05:26 POC ABG Total CO2 16 (23-27mmol/L) 10/29/18 05:26 POC ABG O2 Sat 94 10/29/18 05:26 POC ABG Base Excess -11 ((-2) - (+3)mmol/L) 10/29/18 05:26 40 % 10/29/18 05:26 Sodium 147 mmol/L (137-145) H 10/29/18 04:30 Potassium 3.5 mmol/L (3.6-5.0) L 10/29/18 04:30 Chloride 120.0 mmol/L (98-107) H 10/29/18 04:30 Carbon Dioxide 17 mmol/L (22-30) L 10/29/18 04:30 14 mmol/L 10/29/18 04:30 BUN 30 mg/dL (7-17) H 10/29/18 04:30 1.2 mg/dL (0.7-1.2) 10/29/18 04:30 Estimated GFR 44 ml/min 10/29/18 04:30 25 % 10/29/18 04:30 Glucose 246 mg/dL (65-100) H 10/29/18 04:30 POC Glucose 224 (70-105) H 10/29/18 11:39 Lactic Acid 1.60 mmol/L (0.7-2.0) 10/26/18 15:03 Calcium 7.9 mg/dL (8.4-10.2) L 10/29/18 04:30 Phosphorus 2.60 mg/dL (2.5-4.5) D 10/27/18 05:00 Magnesium 2.60 mg/dL (1.7-2.3) H 10/27/18 05:00 0.40 mg/dL (0.1-1.2) 10/22/18 15:54 AST 25 units/L (5-40) 10/22/18 15:54 ALT 22 units/L (7-56) 10/22/18 15:54 129 units/L (35-129) 10/22/18 15:54 7.6 g/dL (6.3-8.2) 10/22/18 15:54 3.4 g/dL (3.9-5) L 10/22/18 15:54 0.8 % 10/22/18 15:54 10 units/L (13-60) L 10/22/18 15:54 Dulce (Yellow) 10/22/18 19:10 Clear (Clear) 10/22/18 19:10 5.0 (5.0-7.0) 10/22/18 19:10 Ur Specific [place] 1.018 (1.003-1.030) 10/22/18 19:10 30 mg/dl mg/dL (Negative) 10/22/18 19:10 Neg mg/dL (Negative) 10/22/18 19:10 Tr mg/dL (Negative) 10/22/18 19:10 Neg (Negative) 10/22/18 19:10 Neg (Negative) 10/22/18 19:10 Neg (Negative) 10/22/18 19:10 < 2.0 mg/dL (<2.0) 10/22/18 19:10 Ur Leukocyte Esterase Neg (Negative) 10/22/18 19:10 1.0 /HPF (0.0-6.0) 10/22/18 19:10 3.0 /HPF (0.0-6.0) 10/22/18 19:10 Active Medications - Current Medications Current Medications: Generic Name Dose Route Start Last Admin Trade Name Freq PRN Reason Stop Dose Admin Acetaminophen 650 mg 10/22/18 20:10 Tylenol PO Q4H PRN Pain MILD(1-3)/Fever >100.5/PORTER Albuterol 2.5 mg 10/22/18 20:14 10/28/18 06:34 Proventil IH 2.5 mg Q4HRT PRN Administration Shortness Of Breath Albuterol/Ipratropium 1 ampul 10/28/18 12:00 10/29/18 12:46 Duoneb *Not For Prn Use* IH 1 ampul Q4HRT RICK Administration Budesonide 0.5 mg 10/23/18 08:00 10/29/18 07:48 Pulmicort IH 0.5 mg Q12HRT RICK Administration Dextrose 50 ml 10/26/18 23:40 10/27/18 00:20 D50w (25gm) Syringe IV 50 ml PRN PRN Administration Hypoglycemia Heparin Sodium (Porcine) 5,000 unit 10/22/18 22:00 10/29/18 10:23 Heparin SUB-Q 5,000 unit Q12HR RICK Administration Hydralazine HCl 10 mg 10/22/18 21:41 Apresoline IV Q4HR PRN Blood Pressure Piperacillin Sod/Tazobactam Sod 4.5 gm in 100 mls @ 200 mls/hr 10/24/18 14:00 10/29/18 13:03 Zosyn/Ns 4.5gm/100ml IV 10/30/18 13:59 200 mls/hr Q8HR RICK Administration Dextrose/Sodium Chloride 1,000 mls @ 100 mls/hr 10/28/18 10:00 10/29/18 12:55 D5/0.45ns IV 75 mls/hr DIRECT RICK Administration Fentanyl Citrate 2,000 mcg in 100 mls @ 1.2 mls/hr 10/29/18 11:00 10/29/18 10:38 Fentanyl Drip Premix IV 0.5 mcg/kg/hr TITR RICK 1.2 mls/hr Administration Protocol 0.5 MCG/KG/HR Insulin Human Lispro 0 unit 10/29/18 12:00 10/29/18 13:00 Humalog SUB-Q 3 unit Q6HR RICK Administration Protocol Lorazepam 0.5 mg 10/26/18 22:44 10/26/18 23:14 Ativan IV 0.5 mg Q4H PRN Administration Anxiety Methylprednisolone Sodium Succinate 40 mg 10/28/18 14:00 10/29/18 13:03 Solu-Medrol IV 40 mg Q8HR RICK Administration Metoprolol Tartrate 5 mg 10/27/18 16:05 10/29/18 10:21 Lopressor IV 5 mg Q6H RICK Administration Morphine Sulfate 2 mg 10/24/18 13:39 10/29/18 05:46 Morphine IV 2 mg Q4H PRN Administration Pain, Moderate (4-6) Ondansetron HCl 4 mg 10/24/18 10:05 10/25/18 17:26 Zofran IV 4 mg Q6H PRN Administration Nausea And Vomiting Oxycodone/Acetaminophen 1 tab 10/22/18 20:10 10/24/18 06:15 Percocet 5/325 PO 1 tab Q6H PRN Administration Pain, Moderate (4-6) Pantoprazole Sodium 40 mg 10/24/18 11:00 10/29/18 10:21 Protonix IV 40 mg QDAY RICK Administration Phenol 1 spray 10/28/18 10:16 Chloraseptic MM PRN PRN Sore Throat Promethazine HCl 25 mg 10/22/18 20:10 10/22/18 21:21 Phenergan HI 25 mg Q6H PRN Administration Nausea And Vomiting Sodium Chloride 10 ml 10/22/18 22:00 10/29/18 10:22 Sodium Chloride Flush Syringe 10 Ml IV 10 ml BID RICK Administration Sodium Chloride 10 ml 10/22/18 20:10 10/24/18 18:32 Sodium Chloride Flush Syringe 10 Ml IV 10 ml PRN PRN Administration LINE FLUSH Nutrition/Malnutrition Assess - Dietary Evaluation Nutrition/Malnutrition Findings: Nutrition Notes Start: 10/23/18 17:03 Freq: Status: Active Protocol: Document 10/29/18 09:46 LP (Rec: 10/29/18 10:05 LP [id number]) Nutrition Notes Need for Assessment generated from: LOS Initial or Follow up Assessment Current Diagnosis Acute Kidney Injury,COPD, Hypertension Other Pertinent Diagnosis partial SBO, lupus, opiod dependence, SIRS Current Diet NPO Labs/Tests Na 147 K 3.5 BUN 30 BG 246 Pertinent Medications D5 1/2 NS at 100ml/hr Solumedrol Height 5 ft 3 in Weight 48 kg [place] Body Weight (kg) 52.27 BMI 18.7 Subjective/Other Information Screen for LOS. Pt on vent. NGT to LIS. Pt has not had a diet since admission 10/22/2018 . Pt will need nutrition soon. If unable to use gut, will need TPN. Burn Absent Trauma Absent #1 Nutrition Diagnosis Inadequate oral intake Etiology vent/altered GI function As Evidenced by Signs and Symptoms Pt NPO for 7 days Is patient on ventilator? Yes Is Patient Ambulatory and/or Out of Bed No [facility] 1157.292 Kcal/Kg value to use for calculation 35 Approximate Energy Requirements Using 1680 kcal/Kg Calculation Used for Recommendations Kcal/kg Additional Notes Protein needs are 58-96g (1.2- 2g/kg) Fluid needs are 1ml/kcal Nutrition Intervention Change Diet Order: TF or TPN Goal #1 Initiate TF or TPN Anticipated Discharge Needs: Unable to determine at this time Follow-Up By: 10/31/18 Additional Comments Follow for POC
--- NOTE | 2018-10-29 14:57 | XRay Report ---
ABDOMEN, 2 views: History: Partial small bowel obstruction. The nasogastric tube remains in good position. Supine and upright views the abdomen demonstrate a relatively normal bowel gas pattern. There are a few borderline loops of small bowel in the left abdomen. Gas is identified distally in the rectum. Overall, no significant change since yesterday's exam. No free air is appreciated. Patchy bilateral lung infiltrates and small left pleural effusion are again noted. IMPRESSION: No change.
--- NOTE | 2018-10-29 15:16 | Progress Note ---
Assessment and Plan 73 yo F with gastroenteritis, pSBO Obstruction series 10/27 - improved small bowel and stomach dilatation. Obstructions series 10/28 - no significant change since previous study. NGT has been removed Obstruction series 10/29 - relatively normal bowel gas pattern. NGT in place Ct scan A/P from admission reviewed with Dr. Garces - pSBO. Mesenteric vessels patent. Plan: 1. NPO 2. continue NGT to LIWS 3. strict I/Os 4. gentle IVF 5. prn pain control 6. DVT ppx 7. If WBC does not improve, recommend repeat CT chest/abd/pelvis with oral and IV contrast. Plan discussed with patient and at bedside. Thank you, please call with questions Subjective Date of service: 10/29/18 Narrative: Pt seen and examined. Reintubated for respiratory distress. Awake on vent. D enies abdominal pain. No flatus or BM yet. C/o back pain and pain from NGT and ETT. no f/c Objective Vital Signs - 12hr 10/29/18 10/29/18 10/29/18 03:30 03:53 04:00 Temperature 97.8 F Pulse Rate 104 H 102 H Pulse Rate [ Anterior Bilateral] Pulse Rate [ 108 H From Monitor] Respiratory 25 H 22 Rate Respiratory Rate [Anterior Bilateral] Blood Pressure 140/47 140/47 O2 Sat by Pulse 98 98 Oximetry 10/29/18 10/29/18 10/29/18 04:01 04:31 04:58 Temperature Pulse Rate 85 88 89 Pulse Rate [ Anterior Bilateral] Pulse Rate [ From Monitor] Respiratory 24 24 Rate Respiratory Rate [Anterior Bilateral] Blood Pressure 132/42 113/44 113/44 O2 Sat by Pulse 98 97 98 Oximetry 10/29/18 10/29/18 10/29/18 05:01 05:31 05:49 Temperature Pulse Rate 93 H 87 Pulse Rate [ 118 H Anterior Bilateral] Pulse Rate [ From Monitor] Respiratory 24 24 Rate Respiratory 27 H Rate [Anterior Bilateral] Blood Pressure 118/43 106/40 O2 Sat by Pulse 97 99 Oximetry 10/29/18 10/29/18 10/29/18 05:59 06:01 06:30 Temperature Pulse Rate 92 H 91 H Pulse Rate [ 119 H Anterior Bilateral] Pulse Rate [ From Monitor] Respiratory 24 24 Rate Respiratory 27 H Rate [Anterior Bilateral] Blood Pressure 98/32 108/38 O2 Sat by Pulse 99 97 Oximetry 10/29/18 10/29/18 10/29/18 07:00 07:30 07:31 Temperature 98.5 F Pulse Rate 92 H 93 H Pulse Rate [ Anterior Bilateral] Pulse Rate [ From Monitor] Respiratory 24 24 Rate Respiratory Rate [Anterior Bilateral] Blood Pressure 118/48 115/40 O2 Sat by Pulse 97 97 Oximetry 10/29/18 10/29/18 10/29/18 07:43 07:49 08:00 Temperature Pulse Rate 127 H Pulse Rate [ 113 H Anterior Bilateral] Pulse Rate [ 96 H From Monitor] Respiratory 25 H Rate Respiratory 18 Rate [Anterior Bilateral] Blood Pressure 115/40 O2 Sat by Pulse 96 97 Oximetry 10/29/18 10/29/18 10/29/18 08:01 08:30 09:00 Temperature Pulse Rate 102 H 113 H 110 H Pulse Rate [ Anterior Bilateral] Pulse Rate [ From Monitor] Respiratory 25 H 23 25 H Rate Respiratory Rate [Anterior Bilateral] Blood Pressure 118/45 122/70 121/79 O2 Sat by Pulse 100 94 94 Oximetry 10/29/18 10/29/18 10/29/18 09:31 10:00 10:01 Temperature Pulse Rate 115 H 100 H 112 H Pulse Rate [ Anterior Bilateral] Pulse Rate [ From Monitor] Respiratory 25 H 24 Rate Respiratory Rate [Anterior Bilateral] Blood Pressure 146/49 130/83 O2 Sat by Pulse 100 94 Oximetry 10/29/18 10/29/18 10/29/18 10:21 10:31 11:00 Temperature Pulse Rate 110 H 102 H 96 H Pulse Rate [ Anterior Bilateral] Pulse Rate [ From Monitor] Respiratory 25 H 26 H Rate Respiratory Rate [Anterior Bilateral] Blood Pressure 130/83 125/40 126/52 O2 Sat by Pulse 94 95 Oximetry 10/29/18 10/29/18 10/29/18 11:30 12:00 12:30 Temperature 98.7 F Pulse Rate 96 H 97 H 99 H Pulse Rate [ Anterior Bilateral] Pulse Rate [ 97 H From Monitor] Respiratory 28 H 27 H 25 H Rate Respiratory Rate [Anterior Bilateral] Blood Pressure 126/59 126/59 132/72 O2 Sat by Pulse 96 96 99 Oximetry 10/29/18 10/29/18 10/29/18 12:34 12:46 13:00 Temperature Pulse Rate 100 H 96 H Pulse Rate [ 100 H Anterior Bilateral] Pulse Rate [ From Monitor] Respiratory 20 Rate Respiratory 23 Rate [Anterior Bilateral] Blood Pressure 132/72 132/72 O2 Sat by Pulse 94 100 Oximetry 10/29/18 10/29/18 10/29/18 13:03 13:30 14:01 Temperature Pulse Rate 112 H 107 H Pulse Rate [ 101 H Anterior Bilateral] Pulse Rate [ From Monitor] Respiratory 32 H 29 H Rate Respiratory 26 H Rate [Anterior Bilateral] Blood Pressure 123/66 124/74 O2 Sat by Pulse 92 93 Oximetry 10/29/18 10/29/18 14:31 15:01 Temperature Pulse Rate 110 H 110 H Pulse Rate [ Anterior Bilateral] Pulse Rate [ From Monitor] Respiratory 30 H 31 H Rate Respiratory Rate [Anterior Bilateral] Blood Pressure 128/40 140/52 O2 Sat by Pulse 94 94 Oximetry - General physical appearance Narrative Exam: Gen: Awake on vent. Anxious appearing ENT: NGT with clear drainage with sediment. ETT in place CV: s1, S2+ Resp: no wheezing, on vent Abd: soft, NT, ND. + bowel sounds in all 4 quadrants Ext: no c/c/e - Labs 10/29/18 04:30 10/29/18 04:30 Diabetes panel 10/29/18 Range/Units 04:30 Sodium 147 H (137-145) mmol/L Potassium 3.5 L (3.6-5.0) mmol/L Chloride 120.0 H (98-107) mmol/L Carbon Dioxide 17 L (22-30) mmol/L BUN 30 H (7-17) mg/dL Creatinine 1.2 (0.7-1.2) mg/dL Glucose 246 H (65-100) mg/dL Calcium 7.9 L (8.4-10.2) mg/dL Calcium panel 10/29/18 Range/Units 04:30 Calcium 7.9 L (8.4-10.2) mg/dL Pituitary panel 10/29/18 Range/Units 04:30 Sodium 147 H (137-145) mmol/L Potassium 3.5 L (3.6-5.0) mmol/L Chloride 120.0 H (98-107) mmol/L Carbon Dioxide 17 L (22-30) mmol/L BUN 30 H (7-17) mg/dL Creatinine 1.2 (0.7-1.2) mg/dL Glucose 246 H (65-100) mg/dL Calcium 7.9 L (8.4-10.2) mg/dL Adrenal panel 10/29/18 Range/Units 04:30 Sodium 147 H (137-145) mmol/L Potassium 3.5 L (3.6-5.0) mmol/L Chloride 120.0 H (98-107) mmol/L Carbon Dioxide 17 L (22-30) mmol/L BUN 30 H (7-17) mg/dL Creatinine 1.2 (0.7-1.2) mg/dL Glucose 246 H (65-100) mg/dL Calcium 7.9 L (8.4-10.2) mg/dL
[2018-10-29] MEDS ORDERED: SOLU-Medrol IV SCH (22:00)
[2018-10-30] MEDS: DUONEB *Not for PRN Use IH SCH ×5 (03:09→20:00)
[2018-10-30 05:12] LABS: Hematocrit 36.7 % (30.3-42.9); Hemoglobin 12.2 gm/dl (10.1-14.3); Mean Corpuscular HGB Conc 33 % (30-34); Mean Corpuscular Volume 97 fl (79-97); Platelet Count 134 K/mm3 (140-440); Red Cell Distribution Width 14.9 % (13.2-15.2)
[2018-10-30] MEDS: D5/0.45NS 1,000 ML IV SCH (06:07)
[2018-10-30 06:13] LABS: Basophils % (Manual) 0 % (0.0-1.8); Eosinophils % (Manual) 0 % (0.0-4.3); Monocytes % (Manual) 0 % (0.0-7.3); Platelet Estimate Consistent w Auto; RBC Morphology Normal; Total Cells Counted 100
[2018-10-30 06:14] LABS: Toxic Granulation 1+
[2018-10-30] MEDS: LOPRESSOR IV SCH ×3 (06:17→16:40)
[2018-10-30] MEDS: ZOSYN/NS 4.5GM/100ML 4.5 GM/100 ML VIAL IV SCH (06:18)
[2018-10-30] MEDS: HumaLOG SUB-Q SCH ×3 (06:18→19:05)
[2018-10-30] MEDS: PULMICORT IH SCH ×2 (08:34→20:00)
--- NOTE | 2018-10-30 08:34 | Progress Note ---
Assessment and Plan ARF ,reintubated on MV . ETT repositioned,mild basal changes on CXR Partial bowel obstruction. Unchanged WBC, causing mechanical disadvantage x breathing. Steroids weaned Mixed acidosis ,AG normal. RR adjusted, now compensated Chronic pain medications, anti-psychotic therapy . Possible trigger bowel obstruction process Hypernatremia.Stable on 1/2 SS. Also on Zosyn Bradycardia episodes. DC B stephon, propofol COPD.On nebs.increased congestion. Question of infiltrates on CXR Rec Sliding scale BS check Same vent support Continue neb therapy ETT suction Continue NG tube to suction,surgery,GI f/u Sedation vacation during the day,monitor pain meds need. Consider repeat Chest ,Abd CT K+ rider x 1 Discussed with patient,spouse and staff in detail. All questions answered. Critical care time was 31 minutes of [id number] evaluation and coordination of care Subjective Date of service: 10/30/18 Principal diagnosis: colitis, N/V/D Interval history: Intubated,uncomfortable w/o SOB Objective Vital Signs - 12hr 10/29/18 10/29/18 10/29/18 21:00 21:31 21:53 Temperature Pulse Rate 104 H 102 H 112 H Pulse Rate [ Anterior Bilateral] Pulse Rate [ From Monitor] Respiratory 22 23 Rate Respiratory Rate [Anterior Bilateral] Blood Pressure 127/54 143/68 143/68 O2 Sat by Pulse 95 94 Oximetry 10/29/18 10/29/18 10/29/18 22:00 22:01 22:31 Temperature Pulse Rate 99 H 85 86 Pulse Rate [ Anterior Bilateral] Pulse Rate [ From Monitor] Respiratory 25 H 21 Rate Respiratory Rate [Anterior Bilateral] Blood Pressure 158/62 130/54 O2 Sat by Pulse 92 Oximetry 10/29/18 10/29/18 10/29/18 23:01 23:21 23:31 Temperature Pulse Rate 86 83 Pulse Rate [ 95 H Anterior Bilateral] Pulse Rate [ From Monitor] Respiratory 21 20 Rate Respiratory 23 Rate [Anterior Bilateral] Blood Pressure 128/48 110/37 O2 Sat by Pulse 92 100 Oximetry 10/29/18 10/29/18 10/29/18 23:36 23:40 23:43 Temperature 97.0 F L Pulse Rate 100 H Pulse Rate [ 97 H Anterior Bilateral] Pulse Rate [ From Monitor] Respiratory Rate Respiratory 23 Rate [Anterior Bilateral] Blood Pressure 128/48 O2 Sat by Pulse 94 Oximetry 10/30/18 10/30/18 10/30/18 00:00 00:01 00:31 Temperature Pulse Rate 101 H 98 H Pulse Rate [ Anterior Bilateral] Pulse Rate [ 89 From Monitor] Respiratory 23 22 19 Rate Respiratory Rate [Anterior Bilateral] Blood Pressure 128/48 132/42 O2 Sat by Pulse 95 92 Oximetry 10/30/18 10/30/18 10/30/18 01:00 01:31 02:01 Temperature Pulse Rate 96 H 96 H 105 H Pulse Rate [ Anterior Bilateral] Pulse Rate [ From Monitor] Respiratory 19 18 21 Rate Respiratory Rate [Anterior Bilateral] Blood Pressure 132/42 146/60 136/73 O2 Sat by Pulse 91 91 90 Oximetry 10/30/18 10/30/18 10/30/18 02:31 03:01 03:10 Temperature Pulse Rate 119 H 100 H Pulse Rate [ 113 H Anterior Bilateral] Pulse Rate [ From Monitor] Respiratory 19 20 Rate Respiratory 22 Rate [Anterior Bilateral] Blood Pressure 147/68 104/40 O2 Sat by Pulse 94 91 Oximetry 10/30/18 10/30/18 10/30/18 03:25 03:30 04:00 Temperature 96.9 F L Pulse Rate 105 H Pulse Rate [ 115 H Anterior Bilateral] Pulse Rate [ 78 From Monitor] Respiratory 18 22 Rate Respiratory 22 Rate [Anterior Bilateral] Blood Pressure 130/54 O2 Sat by Pulse 92 95 Oximetry 10/30/18 10/30/18 10/30/18 04:01 04:31 04:57 Temperature Pulse Rate 119 H 114 H 109 H Pulse Rate [ Anterior Bilateral] Pulse Rate [ From Monitor] Respiratory 24 26 H Rate Respiratory Rate [Anterior Bilateral] Blood Pressure 130/54 130/54 135/70 O2 Sat by Pulse 91 89 91 Oximetry 10/30/18 10/30/18 10/30/18 05:01 05:31 06:01 Temperature Pulse Rate 113 H 111 H 114 H Pulse Rate [ Anterior Bilateral] Pulse Rate [ From Monitor] Respiratory 27 H 24 26 H Rate Respiratory Rate [Anterior Bilateral] Blood Pressure 135/70 122/58 134/80 O2 Sat by Pulse 90 92 Oximetry 10/30/18 10/30/18 06:17 06:31 Temperature Pulse Rate 110 H 87 Pulse Rate [ Anterior Bilateral] Pulse Rate [ From Monitor] Respiratory 24 Rate Respiratory Rate [Anterior Bilateral] Blood Pressure 134/80 109/35 O2 Sat by Pulse 93 Oximetry Constitutional: alert, appears uncomfortable ENT: other (orally intubated) Neck: supple, no JVD Effort: mildly labored Ascultation: Bilateral: clear, diminished breath sounds, rales Percussion: Bilateral: not dull Cardiovascular: regular rate and rhythm, other (Baseline tachycardia but less than yesterday) Gastrointestinal: hypoactive bowel sounds, other (soft and depressible. Decreased bowel sounds, no rebound tenderness) Integumentary: normal Extremities: no edema Neurologic: normal mental status, non-focal exam Psychiatric: anxious CBC and BMP: 10/30/18 05:00 10/30/18 05:00 ABG, PT/INR, D-dimer: ABG POC ABG pH 7.391 (7.35-7.45) 10/30/18 08:28 POC ABG pO2 91 (80-105) 10/30/18 08:28 POC ABG HCO3 16.5 (22-26 mml/L) 10/30/18 08:28 POC ABG Total CO2 17 (23-27mmol/L) 10/30/18 08:28 POC ABG O2 Sat 97 10/30/18 08:28 Abnormal lab findings: Abnormal Labs 10/22/18 10/22/18 10/22/18 15:31 15:54 15:54 WBC 11.5 H RBC 5.35 H Hgb 17.4 H Hct 50.3 H MCV MCH 33 H MCHC 35 H Plt Count Lymph % (Auto) 12.6 L Stephens % (Auto) 14.8 H Lymph # Stephens # 1.7 H Seg Neutrophils % 72.5 H Seg Neuts % (Manual) Lymphocytes % (Manual) Seg Neutrophils # 8.3 H Seg Neutrophils # Man Lymphocytes # (Manual) POC ABG pH POC ABG pCO2 POC ABG pO2 Sodium 134 L Potassium Chloride 88.1 L Carbon Dioxide BUN 51 H Creatinine 2.1 H Glucose 166 H POC Glucose Calcium Phosphorus Magnesium Albumin 3.4 L Lipase 10 L 10/23/18 10/23/18 10/23/18 04:32 04:32 10:53 WBC RBC Hgb Hct MCV MCH MCHC Plt Count Lymph % (Auto) 10.2 L Stephens % (Auto) 14.7 H Lymph # 0.7 L Stephens # 1.0 H Seg Neutrophils % 74.9 H Seg Neuts % (Manual) Lymphocytes % (Manual) Seg Neutrophils # Seg Neutrophils # Man Lymphocytes # (Manual) POC ABG pH POC ABG pCO2 POC ABG pO2 Sodium Potassium 3.1 L D 3.5 L Chloride Carbon Dioxide BUN 41 H 37 H Creatinine Glucose 111 H 110 H POC Glucose Calcium 8.1 L 8.1 L Phosphorus Magnesium Albumin Lipase 10/24/18 10/24/18 10/25/18 05:34 05:34 04:51 WBC RBC Hgb Hct MCV MCH MCHC Plt Count Lymph % (Auto) Stephens % (Auto) Lymph # Stephens # Seg Neutrophils % Seg Neuts % (Manual) Lymphocytes % (Manual) Seg Neutrophils # Seg Neutrophils # Man Lymphocytes # (Manual) POC ABG pH POC ABG pCO2 POC ABG pO2 Sodium Potassium 3.2 L 3.1 L Chloride 109.8 H 114.2 H Carbon Dioxide 17 L D BUN 21 H Creatinine Glucose 134 H 171 H POC Glucose Calcium 7.7 L 7.0 L Phosphorus 0.80 L* Magnesium Albumin Lipase 10/25/18 10/26/18 10/26/18 06:07 02:58 04:57 WBC RBC Hgb Hct MCV 99 H MCH 33 H MCHC Plt Count Lymph % (Auto) Stephens % (Auto) Lymph # Stephens # Seg Neutrophils % Seg Neuts % (Manual) Lymphocytes % (Manual) Seg Neutrophils # Seg Neutrophils # Man Lymphocytes # (Manual) POC ABG pH 7.090 L 7.320 L POC ABG pCO2 65.0 H 32.8 L POC ABG pO2 76 L Sodium Potassium Chloride Carbon Dioxide BUN Creatinine Glucose POC Glucose Calcium Phosphorus Magnesium Albumin Lipase 10/26/18 10/26/18 10/26/18 06:03 06:03 11:52 WBC 23.8 H RBC Hgb 15.4 H Hct 46.1 H D MCV MCH MCHC Plt Count Lymph % (Auto) Stephens % (Auto) Lymph # Stephens # Seg Neutrophils % Seg Neuts % (Manual) Lymphocytes % (Manual) Seg Neutrophils # Seg Neutrophils # Man Lymphocytes # (Manual) POC ABG pH POC ABG pCO2 POC ABG pO2 Sodium Potassium Chloride 109.5 H Carbon Dioxide 18 L BUN Creatinine Glucose 128 H POC Glucose 117 H Calcium 8.3 L D Phosphorus Magnesium Albumin Lipase 10/26/18 10/26/18 10/26/18 13:54 17:10 17:32 WBC RBC Hgb Hct MCV MCH MCHC Plt Count Lymph % (Auto) Stephens % (Auto) Lymph # Stephens # Seg Neutrophils % Seg Neuts % (Manual) Lymphocytes % (Manual) Seg Neutrophils # Seg Neutrophils # Man Lymphocytes # (Manual) POC ABG pH 7.215 L POC ABG pCO2 31.8 L POC ABG pO2 69 L 204 H Sodium Potassium 3.0 L D Chloride 114.5 H Carbon Dioxide 21 L BUN Creatinine Glucose POC Glucose Calcium 7.6 L Phosphorus Magnesium 1.40 L Albumin Lipase 10/26/18 10/27/18 10/27/18 23:13 00:40 01:09 WBC RBC Hgb Hct MCV MCH MCHC Plt Count Lymph % (Auto) Stephens % (Auto) Lymph # Stephens # Seg Neutrophils % Seg Neuts % (Manual) Lymphocytes % (Manual) Seg Neutrophils # Seg Neutrophils # Man Lymphocytes # (Manual) POC ABG pH POC ABG pCO2 POC ABG pO2 Sodium Potassium 3.4 L Chloride 115.0 H Carbon Dioxide 14 L D BUN Creatinine Glucose 228 H POC Glucose 48 L 264 H Calcium 7.1 L Phosphorus Magnesium Albumin Lipase 10/27/18 10/27/18 10/27/18 05:00 05:00 05:16 WBC 22.5 H RBC Hgb 14.7 H Hct 44.4 H MCV MCH MCHC Plt Count Lymph % (Auto) Stephens % (Auto) Lymph # Stephens # Seg Neutrophils % Seg Neuts % (Manual) Lymphocytes % (Manual) Seg Neutrophils # Seg Neutrophils # Man Lymphocytes # (Manual) POC ABG pH 7.304 L POC ABG pCO2 POC ABG pO2 116 H Sodium Potassium Chloride 118.4 H Carbon Dioxide 16 L BUN Creatinine Glucose 123 H POC Glucose Calcium 7.7 L Phosphorus Magnesium 2.60 H Albumin Lipase 10/28/18 10/28/18 10/28/18 04:25 04:25 15:37 WBC 23.5 H RBC Hgb Hct MCV MCH MCHC Plt Count Lymph % (Auto) Stephens % (Auto) Lymph # Stephens # Seg Neutrophils % Seg Neuts % (Manual) Lymphocytes % (Manual) Seg Neutrophils # Seg Neutrophils # Man Lymphocytes # (Manual) POC ABG pH POC ABG pCO2 POC ABG pO2 Sodium 147 H Potassium Chloride 116.9 H Carbon Dioxide 16 L BUN 23 H Creatinine Glucose POC Glucose 114 H Calcium 8.0 L Phosphorus Magnesium Albumin Lipase 10/28/18 10/28/18 10/28/18 20:33 22:07 23:31 WBC RBC Hgb Hct MCV MCH MCHC Plt Count Lymph % (Auto) Stephens % (Auto) Lymph # Stephens # Seg Neutrophils % Seg Neuts % (Manual) Lymphocytes % (Manual) Seg Neutrophils # Seg Neutrophils # Man Lymphocytes # (Manual) POC ABG pH 7.202 L 7.235 L POC ABG pCO2 POC ABG pO2 71 L Sodium Potassium Chloride Carbon Dioxide BUN Creatinine Glucose POC Glucose 207 H Calcium Phosphorus Magnesium Albumin Lipase 10/29/18 10/29/18 10/29/18 04:30 04:30 05:26 WBC 21.1 H RBC Hgb Hct MCV MCH MCHC Plt Count Lymph % (Auto) Stephens % (Auto) Lymph # Stephens # Seg Neutrophils % Seg Neuts % (Manual) 97.0 H Lymphocytes % (Manual) 3.0 L Seg Neutrophils # Seg Neutrophils # Man 20.5 H Lymphocytes # (Manual) 0.6 L POC ABG pH 7.305 L POC ABG pCO2 30.5 L POC ABG pO2 75 L Sodium 147 H Potassium 3.5 L Chloride 120.0 H Carbon Dioxide 17 L BUN 30 H Creatinine Glucose 246 H POC Glucose Calcium 7.9 L Phosphorus Magnesium Albumin Lipase 10/29/18 10/29/18 10/29/18 05:36 11:39 18:00 WBC RBC Hgb Hct MCV MCH MCHC Plt Count Lymph % (Auto) Stephens % (Auto) Lymph # Stephens # Seg Neutrophils % Seg Neuts % (Manual) Lymphocytes % (Manual) Seg Neutrophils # Seg Neutrophils # Man Lymphocytes # (Manual) POC ABG pH POC ABG pCO2 POC ABG pO2 Sodium Potassium Chloride Carbon Dioxide BUN Creatinine Glucose POC Glucose 204 H 224 H 221 H Calcium Phosphorus Magnesium Albumin Lipase 10/29/18 10/30/18 10/30/18 23:17 05:00 05:00 WBC 21.4 H RBC Hgb Hct MCV MCH MCHC Plt Count 134 L Lymph % (Auto) Stephens % (Auto) Lymph # Stephens # Seg Neutrophils % Seg Neuts % (Manual) 97.0 H Lymphocytes % (Manual) 3.0 L Seg Neutrophils # Seg Neutrophils # Man 20.8 H Lymphocytes # (Manual) 0.6 L POC ABG pH POC ABG pCO2 POC ABG pO2 Sodium 148 H Potassium 3.1 L Chloride 120.3 H Carbon Dioxide 18 L BUN 31 H Creatinine Glucose 205 H POC Glucose 181 H Calcium 8.0 L Phosphorus Magnesium Albumin Lipase 10/30/18 10/30/18 10/30/18 05:14 05:25 05:26 WBC RBC Hgb Hct MCV MCH MCHC Plt Count Lymph % (Auto) Stephens % (Auto) Lymph # Stephens # Seg Neutrophils % Seg Neuts % (Manual) Lymphocytes % (Manual) Seg Neutrophils # Seg Neutrophils # Man Lymphocytes # (Manual) POC ABG pH 7.296 L 7.245 L POC ABG pCO2 31.1 L POC ABG pO2 54 L 59 L Sodium Potassium Chloride Carbon Dioxide BUN Creatinine Glucose POC Glucose 199 H Calcium Phosphorus Magnesium Albumin Lipase Chest x-ray: report reviewed, image reviewed Allied health notes reviewed: nursing
--- NOTE | 2018-10-30 09:09 | Progress Note ---
Assessment and Plan 73 yo F with gastroenteritis, pSBO Obstruction series 10/27 - improved small bowel and stomach dilatation. Obstructions series 10/28 - no significant change since previous study. NGT has been removed Obstruction series 10/29 - relatively normal bowel gas pattern. NGT in place Ct scan A/P from admission reviewed with Dr. Garces - pSBO. Mesenteric vessels patent. Plan: 1. NPO 2. continue NGT to LIWS 3. strict I/Os 4. gentle IVF 5. prn pain control 6. DVT ppx 7. vent management per ICU 8. c/w abx. recommend ID consult. tracheal aspirate with gram neg rods 9. WBC not improving -> recommend CT scan chest/abd/pelvis Plan discussed with patient and at bedside. Thank you, please call with questions Subjective Date of service: 10/30/18 Narrative: Pt seen and examined. Denies abdominal pain. Still intubated on vent. Passed some flatus but no BM Objective Vital Signs - 12hr 10/29/18 10/29/18 10/29/18 21:31 21:53 22:00 Temperature Pulse Rate 102 H 112 H 99 H Pulse Rate [ Anterior Bilateral] Pulse Rate [ From Monitor] Respiratory 23 Rate Respiratory Rate [Anterior Bilateral] Blood Pressure 143/68 143/68 O2 Sat by Pulse 94 Oximetry 10/29/18 10/29/18 10/29/18 22:01 22:31 23:01 Temperature Pulse Rate 85 86 86 Pulse Rate [ Anterior Bilateral] Pulse Rate [ From Monitor] Respiratory 25 H 21 21 Rate Respiratory Rate [Anterior Bilateral] Blood Pressure 158/62 130/54 128/48 O2 Sat by Pulse 92 92 Oximetry 10/29/18 10/29/18 10/29/18 23:21 23:31 23:36 Temperature Pulse Rate 83 Pulse Rate [ 95 H 97 H Anterior Bilateral] Pulse Rate [ From Monitor] Respiratory 20 Rate Respiratory 23 23 Rate [Anterior Bilateral] Blood Pressure 110/37 O2 Sat by Pulse 100 Oximetry 10/29/18 10/29/18 10/30/18 23:40 23:43 00:00 Temperature 97.0 F L Pulse Rate 100 H Pulse Rate [ Anterior Bilateral] Pulse Rate [ 89 From Monitor] Respiratory 23 Rate Respiratory Rate [Anterior Bilateral] Blood Pressure 128/48 O2 Sat by Pulse 94 95 Oximetry 10/30/18 10/30/18 10/30/18 00:01 00:31 01:00 Temperature Pulse Rate 101 H 98 H 96 H Pulse Rate [ Anterior Bilateral] Pulse Rate [ From Monitor] Respiratory 22 19 19 Rate Respiratory Rate [Anterior Bilateral] Blood Pressure 128/48 132/42 132/42 O2 Sat by Pulse 92 91 Oximetry 10/30/18 10/30/18 10/30/18 01:31 02:01 02:31 Temperature Pulse Rate 96 H 105 H 119 H Pulse Rate [ Anterior Bilateral] Pulse Rate [ From Monitor] Respiratory 18 21 19 Rate Respiratory Rate [Anterior Bilateral] Blood Pressure 146/60 136/73 147/68 O2 Sat by Pulse 91 90 94 Oximetry 10/30/18 10/30/18 10/30/18 03:01 03:10 03:25 Temperature Pulse Rate 100 H Pulse Rate [ 113 H 115 H Anterior Bilateral] Pulse Rate [ From Monitor] Respiratory 20 Rate Respiratory 22 22 Rate [Anterior Bilateral] Blood Pressure 104/40 O2 Sat by Pulse 91 Oximetry 10/30/18 10/30/18 10/30/18 03:30 04:00 04:01 Temperature 96.9 F L Pulse Rate 105 H 119 H Pulse Rate [ Anterior Bilateral] Pulse Rate [ 78 From Monitor] Respiratory 18 22 24 Rate Respiratory Rate [Anterior Bilateral] Blood Pressure 130/54 130/54 O2 Sat by Pulse 92 95 91 Oximetry 10/30/18 10/30/18 10/30/18 04:31 04:57 05:01 Temperature Pulse Rate 114 H 109 H 113 H Pulse Rate [ Anterior Bilateral] Pulse Rate [ From Monitor] Respiratory 26 H 27 H Rate Respiratory Rate [Anterior Bilateral] Blood Pressure 130/54 135/70 135/70 O2 Sat by Pulse 89 91 90 Oximetry 10/30/18 10/30/18 10/30/18 05:31 06:01 06:17 Temperature Pulse Rate 111 H 114 H 110 H Pulse Rate [ Anterior Bilateral] Pulse Rate [ From Monitor] Respiratory 24 26 H Rate Respiratory Rate [Anterior Bilateral] Blood Pressure 122/58 134/80 134/80 O2 Sat by Pulse 92 Oximetry 10/30/18 10/30/18 10/30/18 06:31 08:00 08:30 Temperature 97.0 F L Pulse Rate 87 97 H Pulse Rate [ Anterior Bilateral] Pulse Rate [ 95 H From Monitor] Respiratory 24 24 Rate Respiratory Rate [Anterior Bilateral] Blood Pressure 109/35 125/55 O2 Sat by Pulse 93 95 96 Oximetry 10/30/18 10/30/18 08:34 08:53 Temperature Pulse Rate Pulse Rate [ 96 H 82 Anterior Bilateral] Pulse Rate [ From Monitor] Respiratory Rate Respiratory 24 24 Rate [Anterior Bilateral] Blood Pressure O2 Sat by Pulse Oximetry - General physical appearance Narrative Exam: Gen: Awake on vent. anxious ENT; ETT in place. NGT with light brown gastric drainage with sediment CV: S1, S2+ Resp: on vent Abd: soft, NT, ND Ext: no c/c/e - Labs 10/30/18 05:00 10/30/18 05:00 Diabetes panel 10/30/18 Range/Units 05:00 Sodium 148 H (137-145) mmol/L Potassium 3.1 L (3.6-5.0) mmol/L Chloride 120.3 H (98-107) mmol/L Carbon Dioxide 18 L (22-30) mmol/L BUN 31 H (7-17) mg/dL Creatinine 1.2 (0.7-1.2) mg/dL Glucose 205 H (65-100) mg/dL Calcium 8.0 L (8.4-10.2) mg/dL Calcium panel 10/30/18 Range/Units 05:00 Calcium 8.0 L (8.4-10.2) mg/dL Pituitary panel 10/30/18 Range/Units 05:00 Sodium 148 H (137-145) mmol/L Potassium 3.1 L (3.6-5.0) mmol/L Chloride 120.3 H (98-107) mmol/L Carbon Dioxide 18 L (22-30) mmol/L BUN 31 H (7-17) mg/dL Creatinine 1.2 (0.7-1.2) mg/dL Glucose 205 H (65-100) mg/dL Calcium 8.0 L (8.4-10.2) mg/dL Adrenal panel 10/30/18 Range/Units 05:00 Sodium 148 H (137-145) mmol/L Potassium 3.1 L (3.6-5.0) mmol/L Chloride 120.3 H (98-107) mmol/L Carbon Dioxide 18 L (22-30) mmol/L BUN 31 H (7-17) mg/dL Creatinine 1.2 (0.7-1.2) mg/dL Glucose 205 H (65-100) mg/dL Calcium 8.0 L (8.4-10.2) mg/dL
[2018-10-30] MEDS: PROTONIX IV SCH ×2 (09:57→22:05)
[2018-10-30] MEDS: KCL 20MEQ/100ML 20 MEQ/100 ML BAG IV SCH ×3 (10:12→13:22)
--- NOTE | 2018-10-30 10:54 | Consultation ---
History of Present Illness - Reason for Consult Consult date: 10/30/18 leukocytosis/pneumonia Requesting physician: OLIVE CHANCE - History of Present Illness 73 y/o female with history of COPD, hypertension, lupus, fibromyalgia, opioid dependence admitted on 10/22/2018 due to 3-day history of intractable nausea, vomiting, diarrhea. History is limited as patient is currently intubated and sedated. History taken per review of medical records. In the ED, temp 98, HR 87, R16, BP 95, BP 111/50. WBC 11.5. Hg 17. Plat 416. Creat 2.1. UA neg. Blood cultures 10/22/2018 no growth so far. CXR 10/26/2018 showed bibasilar atelectasis. WBC went to 26K on 10/26/2018. CT Abdomen revealed partial SBO versus ileus. Patient became short of breath, placed on BIPAP with no improvement then intubated 10/26/18 for acute resp failure and transferred to ICU. She was extubated and then back on BiPAP, decompensated on the night of 10/28/18 and had to be reintubated. Tracheal asp cultures 10/28/2018 GNR. ID consulted due to suspicion for pneumonia. Review of Systems: unable to obtain Past History Past Medical History: COPD, hypertension, other (Lupus, fibromyalgia, history of opioid dependence) Past Surgical History: cholecystectomy, hysterectomy, total hip replacement (left hip fracture 2016, irritated hardware repair 10/2017, colon surgery, renal surgery), bowel surgery (exlap, subtotal colectomy) Social history: (lives with ), smoking (former smoker) Family history: no significant family history Medications and Allergies Allergies Allergy/AdvReac Type Severity Reaction Status Date / Time Sulfa (Sulfonamide Allergy Intermediate Rash Verified 10/22/18 16:30 Antibiotics) metoclopramide HCl Allergy Dizziness Verified 10/22/18 16:30 [From Reglan] prochlorperazine Allergy NECK Verified 10/22/18 16:30 [From Compazine] STIFFNESS Home Medications Medication Instructions Recorded Confirmed Last Taken Type Ondansetron 4 mg PO Q6HR PRN 12/05/16 10/22/18 10/29/17 History Propranolol HCl [Propranolol HCl 60 mg PO DAILY 07/05/17 05/22/19 05/30/18 22:00 History ER] QUEtiapine [SEROquel] 300 mg PO DAILY 12/05/16 10/22/18 10/30/17 History Lasix TAB 40 mg PO PRN PRN 12/07/16 10/22/18 10/24/17 History Percocet 10/325 mg 1 tab PO PRN PRN 12/07/16 10/22/18 10/30/17 History Albuterol Sulfate [Albuterol 0.63% 0.63 mg IH TID PRN 10/22/17 10/22/18 10/29/17 History NEBS] Active Meds: Active Medications Acetaminophen (Tylenol) 650 mg PO Q4H PRN PRN Reason: Pain MILD(1-3)/Fever >100.5/PORTER Albuterol (Proventil) 2.5 mg IH Q4HRT PRN PRN Reason: Shortness Of Breath Last Admin: 10/28/18 06:34 Dose: 2.5 mg Documented by: Albuterol/Ipratropium (Duoneb *Not For Prn Use*) 1 ampul IH Q4HRT [facility] Last Admin: 10/30/18 08:34 Dose: 1 ampul Documented by: Budesonide (Pulmicort) 0.5 mg IH Q12HRT [facility] Last Admin: 10/30/18 08:34 Dose: 0.5 mg Documented by: Dextrose (D50w (25gm) Syringe) 50 ml IV PRN PRN PRN Reason: Hypoglycemia Last Admin: 10/27/18 00:20 Dose: 50 ml Documented by: Hydralazine HCl (Apresoline) 10 mg IV Q4HR PRN PRN Reason: Blood Pressure Piperacillin Sod/Tazobactam Sod (Zosyn/Ns 4.5gm/100ml) 4.5 gm in 100 mls @ 200 mls/hr IV Q8HR [facility] Stop: 10/30/18 13:59 Last Admin: 10/30/18 06:18 Dose: 200 mls/hr Documented by: Dextrose/Sodium Chloride (D5/0.45ns) 1,000 mls @ 100 mls/hr IV DIRECT [facility]ICK Last Admin: 10/30/18 06:07 Dose: 75 mls/hr Documented by: Fentanyl Citrate (Fentanyl Drip Premix) 2,000 mcg in 100 mls @ 1.2 mls/hr IV TITR [facility]; Protocol Last Admin: 10/29/18 10:38 Dose: 0.5 mcg/kg/hr, 1.2 mls/hr Documented by: Potassium Chloride (Kcl 20meq/100ml) 20 meq in 100 mls @ 100 mls/hr IV Q1H [facility] Stop: 10/30/18 11:59 Last Admin: 10/30/18 10:12 Dose: 100 mls/hr Documented by: Insulin Human Lispro (Humalog) 0 unit SUB-Q Q6HR [facility]; Protocol Last Admin: 10/30/18 06:18 Dose: 2 unit Documented by: Lorazepam (Ativan) 0.5 mg IV Q4H PRN PRN Reason: Anxiety Last Admin: 10/26/18 23:14 Dose: 0.5 mg Documented by: Metoprolol Tartrate (Lopressor) 5 mg IV Q6H [facility] Last Admin: 10/30/18 09:57 Dose: 5 mg Documented by: Morphine Sulfate (Morphine) 2 mg IV Q4H PRN PRN Reason: Pain, Moderate (4-6) Last Admin: 10/29/18 05:46 Dose: 2 mg Documented by: Ondansetron HCl (Zofran) 4 mg IV Q6H PRN PRN Reason: Nausea And Vomiting Last Admin: 10/25/18 17:26 Dose: 4 mg Documented by: Oxycodone/Acetaminophen (Percocet 5/325) 1 tab PO Q6H PRN PRN Reason: Pain, Moderate (4-6) Last Admin: 10/24/18 06:15 Dose: 1 tab Documented by: Pantoprazole Sodium (Protonix) 40 mg IV QDAY [facility] Last Admin: 10/30/18 09:57 Dose: 40 mg Documented by: Phenol (Chloraseptic) 1 spray MM PRN PRN PRN Reason: Sore Throat Promethazine HCl (Phenergan) 25 mg TN Q6H PRN PRN Reason: Nausea And Vomiting Last Admin: 10/22/18 21:21 Dose: 25 mg Documented by: Sodium Chloride (Sodium Chloride Flush Syringe 10 Ml) 10 ml IV BID [facility] Last Admin: 10/29/18 10:22 Dose: 10 ml Documented by: Sodium Chloride (Sodium Chloride Flush Syringe 10 Ml) 10 ml IV PRN PRN PRN Reason: LINE FLUSH Last Admin: 10/24/18 18:32 Dose: 10 ml Documented by: Physical Examination - Physical Exam Narrative exam: General appearance: sedated intubated FiO2 30%, p6 Eyes: anicteric sclerae, moist conjunctivae; no lid-lag; PERRLA HENT: Atraumatic; oropharynx limited +NGT +ETT Neck: Trachea midline; supple, no thyromegaly or lymphadenopathy Lungs: distant BS CV: RRR no murmur Abdomen: Soft, non-tender Extremities: no edema, cyanosis Skin: Normal temperature, turgor and texture; no rash, ulcers or subcutaneous nodules Psych: sedated Neuro:sedated - Constitutional Vitals: Vital Signs Temp Pulse Resp BP Pulse Ox 97.0 F L 103 H 24 137/118 83 L 10/30/18 08:00 10/30/18 10:01 10/30/18 10:01 10/30/18 10:01 10/30/18 10:01 Temperature -Last 24 Hours Temperature 97.0 F Temperature 96.9 F Temperature 97.0 F Temperature 97.2 F Temperature 97.8 F Temperature 98.7 F Results - Labs CBC & Chem 7: 10/30/18 05:00 10/30/18 05:00 Labs: Abnormal lab results 10/29/18 10/29/18 10/29/18 Range/Units 11:39 18:00 23:17 WBC (4.5-11.0) K/mm3 Plt Count (140-440) K/mm3 Seg Neuts % (Manual) (40.0-70.0) % Lymphocytes % (Manual) (13.4-35.0) % Seg Neutrophils # Man (1.8-7.7) K/mm3 Lymphocytes # (Manual) (1.2-5.4) K/mm3 POC ABG pH (7.35-7.45) POC ABG pCO2 (35-45) POC ABG pO2 (80-105) Sodium (137-145) mmol/L Potassium (3.6-5.0) mmol/L Chloride (98-107) mmol/L Carbon Dioxide (22-30) mmol/L BUN (7-17) mg/dL Glucose (65-100) mg/dL POC Glucose 224 H 221 H 181 H (70-105) Calcium (8.4-10.2) mg/dL 10/30/18 10/30/18 10/30/18 Range/Units 05:00 05:00 05:14 WBC 21.4 H (4.5-11.0) K/mm3 Plt Count 134 L (140-440) K/mm3 Seg Neuts % (Manual) 97.0 H (40.0-70.0) % Lymphocytes % (Manual) 3.0 L (13.4-35.0) % Seg Neutrophils # Man 20.8 H (1.8-7.7) K/mm3 Lymphocytes # (Manual) 0.6 L (1.2-5.4) K/mm3 POC ABG pH 7.296 L (7.35-7.45) POC ABG pCO2 31.1 L (35-45) POC ABG pO2 54 L (80-105) Sodium 148 H (137-145) mmol/L Potassium 3.1 L (3.6-5.0) mmol/L Chloride 120.3 H (98-107) mmol/L Carbon Dioxide 18 L (22-30) mmol/L BUN 31 H (7-17) mg/dL Glucose 205 H (65-100) mg/dL POC Glucose (70-105) Calcium 8.0 L (8.4-10.2) mg/dL 10/30/18 10/30/18 Range/Units 05:25 05:26 WBC (4.5-11.0) K/mm3 Plt Count (140-440) K/mm3 Seg Neuts % (Manual) (40.0-70.0) % Lymphocytes % (Manual) (13.4-35.0) % Seg Neutrophils # Man (1.8-7.7) K/mm3 Lymphocytes # (Manual) (1.2-5.4) K/mm3 POC ABG pH 7.245 L (7.35-7.45) POC ABG pCO2 (35-45) POC ABG pO2 59 L (80-105) Sodium (137-145) mmol/L Potassium (3.6-5.0) mmol/L Chloride (98-107) mmol/L Carbon Dioxide (22-30) mmol/L BUN (7-17) mg/dL Glucose (65-100) mg/dL POC Glucose 199 H (70-105) Calcium (8.4-10.2) mg/dL Assessment and Plan Cultures: Blood cultures 10/22/2018 no growth so far. Tracheal asp cultures 10/28/2018 GNR. Assessment: 73 y/o female with history of COPD, hypertension, lupus, fibromyalgia, opioid dependence admitted on 10/22/2018 due to 3-day history of intractable nausea, vomiting, diarrhea: 1) SIRS v/s sepsis: Not present on admission, manifested by tachycardia, tachypnea, leukocytosis. Etiology most likely aspiration pneumonia +/- intra- abdominal source. 2) Presumed aspiration pneumonia v/s HAP: Tracheal asp cultures 10/28/2018 GNR. CXR left small effusion ? 3) Acute respiratory failure: reintubated 4) Ileus v/s partial SBO: 5) ADWOA: renally dosed all antibiotics Recommendations: - obtain repeat blood cultures - follow up tracheal aspirate culture ID and KAROL - agree with CT chest, abdomen and pelvis - stop zosyn - start cefepime 2 gm IV q 8 hour and flagyl 500 mg IV q [address] Joy will be rounding tomorrow Ame Garcia MD Infectious Diseases [employer] [facility] M [phone] O [phone]
--- NOTE | 2018-10-30 11:05 | Gastroenterology Progress Note ---
Assessment and Plan 1.Abdominal distention 2.N/V 3.respiratory failure -WBC 21.4 -H/H WNL -CT-ileus vs SBO -Obstruction series 10/27 - improved small bowel and stomach dilatation. -Obstructions series 10/28 - no significant change since previous study. NGT has been removed -Obstruction series 10/29 - relatively normal bowel gas pattern. NGT in place -clinically, patient remains in ICU on vent. Abdominal distention improved. +flatus but no BM. No evidence of abd pain. -repeat CT of chest/abdomen pending for today given no improvement in WBC -no plan for scope -continue NGT, antibiotcs, and supportive care -no further GI recommendations at this time -will defer further management per surgery/ID/primary team -will sign off, please call if needed Subjective Date of service: 10/30/18 Principal diagnosis: colitis, N/V/D Interval history: Patient remains in ICU on vent. NGT with minimal output. +flatus yesterday per but no BM. No evidence of abd pain. Objective - Constitutional Vitals: Temp Pulse Resp BP Pulse Ox 97.0 F L 103 H 24 137/118 83 L 10/30/18 08:00 10/30/18 10:01 10/30/18 10:01 10/30/18 10:01 10/30/18 10:01 General appearance: other (on vent in ICU) - EENT ENT: other (+NGT, +ETT) - Respiratory Respiratory: bilateral: diminished - Cardiovascular Rhythm: other (tachycardia) - Gastrointestinal General gastrointestinal: Present: soft, non-distended, hypoactive bowel sounds - Labs CBC & Chem 7: 10/30/18 05:00 10/30/18 05:00 Labs: Laboratory Results - last 24 hr 10/29/18 10/29/18 10/29/18 11:39 18:00 23:17 WBC RBC Hgb Hct MCV MCH MCHC RDW Plt Count Add Manual Diff Total Counted Seg Neuts % (Manual) Band Neutrophils % Lymphocytes % (Manual) Reactive Lymphs % (Man) Monocytes % (Manual) Eosinophils % (Manual) Basophils % (Manual) Metamyelocytes % Myelocytes % Promyelocytes % Blast Cells % Nucleated RBC % Seg Neutrophils # Man Band Neutrophils # Lymphocytes # (Manual) Abs React Lymphs (Man) Monocytes # (Manual) Eosinophils # (Manual) Basophils # (Manual) Metamyelocytes # Myelocytes # Promyelocytes # Blast Cells # WBC Morphology Hypersegmented Neuts Hyposegmented Neuts Hypogranular Neuts Smudge Cells Toxic Granulation Toxic Vacuolation Dohle Bodies Pelger-Huet Anomaly Magda Rods Platelet Estimate Clumped Platelets Plt Clumps, EDTA Large Platelets Giant Platelets Platelet Satelliting Plt Morphology Comment RBC Morphology Dimorphic RBCs Polychromasia Hypochromasia Poikilocytosis Anisocytosis Microcytosis Macrocytosis Spherocytes Pappenheimer Bodies Sickle Cells Target Cells Tear Drop Cells Ovalocytes Helmet Cells Stewart-[place] Bodies [place] Rings [place] Cells Bite Cells Crenated Cell Elliptocytes Acanthocytes (Spur) Rouleaux Hemoglobin C Crystals Schistocytes Malaria parasites Janes Bodies Hem Pathologist Commnt POC ABG pH POC ABG pCO2 POC ABG pO2 POC ABG HCO3 POC ABG Total CO2 POC ABG O2 Sat POC ABG Base Excess FiO2 Sodium Potassium Chloride Carbon Dioxide Anion Gap BUN Creatinine Estimated GFR BUN/Creatinine Ratio Glucose POC Glucose 224 H 221 H 181 H Calcium Magnesium 10/30/18 10/30/18 10/30/18 05:00 05:00 05:00 WBC 21.4 H RBC 3.80 Hgb 12.2 Hct 36.7 MCV 97 MCH 32 MCHC 33 RDW 14.9 Plt Count 134 L Add Manual Diff Complete Total Counted 100 Seg Neuts % (Manual) 97.0 H Band Neutrophils % 0 Lymphocytes % (Manual) 3.0 L Reactive Lymphs % (Man) 0 Monocytes % (Manual) 0 Eosinophils % (Manual) 0 Basophils % (Manual) 0 Metamyelocytes % 0 Myelocytes % 0 Promyelocytes % 0 Blast Cells % 0 Nucleated RBC % Not Reportable Seg Neutrophils # Man 20.8 H Band Neutrophils # 0.0 Lymphocytes # (Manual) 0.6 L Abs React Lymphs (Man) 0.0 Monocytes # (Manual) 0.0 Eosinophils # (Manual) 0.0 Basophils # (Manual) 0.0 Metamyelocytes # 0.0 Myelocytes # 0.0 Promyelocytes # 0.0 Blast Cells # 0.0 WBC Morphology Not Reportable Hypersegmented Neuts Not Reportable Hyposegmented Neuts Not Reportable Hypogranular Neuts Not Reportable Smudge Cells Not Reportable Toxic Granulation 1+ Toxic Vacuolation Not Reportable Dohle Bodies Not Reportable Pelger-Huet Anomaly Not Reportable Magda Rods Not Reportable Platelet Estimate Consistent w auto Clumped Platelets Not Reportable Plt Clumps, EDTA Not Reportable Large Platelets Not Reportable Giant Platelets Not Reportable Platelet Satelliting Not Reportable Plt Morphology Comment Not Reportable RBC Morphology Normal Dimorphic RBCs Not Reportable Polychromasia Not Reportable Hypochromasia Not Reportable Poikilocytosis Not Reportable Anisocytosis Not Reportable Microcytosis Not Reportable Macrocytosis Not Reportable Spherocytes Not Reportable Pappenheimer Bodies Not Reportable Sickle Cells Not Reportable Target Cells Not Reportable Tear Drop Cells Not Reportable Ovalocytes Not Reportable Helmet Cells Not Reportable Stewart-[place] Bodies Not Reportable [place] Rings Not Reportable [place] Cells Not Reportable Bite Cells Not Reportable Crenated Cell Not Reportable Elliptocytes Not Reportable Acanthocytes (Spur) Not Reportable Rouleaux Not Reportable Hemoglobin C Crystals Not Reportable Schistocytes Not Reportable Malaria parasites Not Reportable Janes Bodies Not Reportable Hem Pathologist Commnt No POC ABG pH POC ABG pCO2 POC ABG pO2 POC ABG HCO3 POC ABG Total CO2 POC ABG O2 Sat POC ABG Base Excess FiO2 Sodium 148 H Potassium 3.1 L Chloride 120.3 H Carbon Dioxide 18 L Anion Gap 13 BUN 31 H Creatinine 1.2 Estimated GFR 44 BUN/Creatinine Ratio 26 Glucose 205 H POC Glucose Calcium 8.0 L Magnesium 2.20 10/30/18 10/30/18 10/30/18 05:14 05:25 05:26 WBC RBC Hgb Hct MCV MCH MCHC RDW Plt Count Add Manual Diff Total Counted Seg Neuts % (Manual) Band Neutrophils % Lymphocytes % (Manual) Reactive Lymphs % (Man) Monocytes % (Manual) Eosinophils % (Manual) Basophils % (Manual) Metamyelocytes % Myelocytes % Promyelocytes % Blast Cells % Nucleated RBC % Seg Neutrophils # Man Band Neutrophils # Lymphocytes # (Manual) Abs React Lymphs (Man) Monocytes # (Manual) Eosinophils # (Manual) Basophils # (Manual) Metamyelocytes # Myelocytes # Promyelocytes # Blast Cells # WBC Morphology Hypersegmented Neuts Hyposegmented Neuts Hypogranular Neuts Smudge Cells Toxic Granulation Toxic Vacuolation Dohle Bodies Pelger-Huet Anomaly Magda Rods Platelet Estimate Clumped Platelets Plt Clumps, EDTA Large Platelets Giant Platelets Platelet Satelliting Plt Morphology Comment RBC Morphology Dimorphic RBCs Polychromasia Hypochromasia Poikilocytosis Anisocytosis Microcytosis Macrocytosis Spherocytes Pappenheimer Bodies Sickle Cells Target Cells Tear Drop Cells Ovalocytes Helmet Cells [place] Bodies [place] Rings [place] Cells Bite Cells Crenated Cell Elliptocytes Acanthocytes (Spur) Rouleaux Hemoglobin C Crystals Schistocytes Malaria parasites Janes Bodies Hem Pathologist Commnt POC ABG pH 7.296 L 7.245 L POC ABG pCO2 31.1 L 35.7 POC ABG pO2 54 L 59 L POC ABG HCO3 15.1 15.5 POC ABG Total CO2 16 17 POC ABG O2 Sat 85 86 POC ABG Base Excess -11 -12 FiO2 30 30 Sodium Potassium Chloride Carbon Dioxide Anion Gap BUN Creatinine Estimated GFR BUN/Creatinine Ratio Glucose POC Glucose 199 H Calcium Magnesium 10/30/18 08:28 WBC RBC Hgb Hct MCV MCH MCHC RDW Plt Count Add Manual Diff Total Counted Seg Neuts % (Manual) Band Neutrophils % Lymphocytes % (Manual) Reactive Lymphs % (Man) Monocytes % (Manual) Eosinophils % (Manual) Basophils % (Manual) Metamyelocytes % Myelocytes % Promyelocytes % Blast Cells % Nucleated RBC % Seg Neutrophils # Man Band Neutrophils # Lymphocytes # (Manual) Abs React Lymphs (Man) Monocytes # (Manual) Eosinophils # (Manual) Basophils # (Manual) Metamyelocytes # Myelocytes # Promyelocytes # Blast Cells # WBC Morphology Hypersegmented Neuts Hyposegmented Neuts Hypogranular Neuts Smudge Cells Toxic Granulation Toxic Vacuolation Dohle Bodies Pelger-Huet Anomaly Magda Rods Platelet Estimate Clumped Platelets Plt Clumps, EDTA Large Platelets Giant Platelets Platelet Satelliting Plt Morphology Comment RBC Morphology Dimorphic RBCs Polychromasia Hypochromasia Poikilocytosis Anisocytosis Microcytosis Macrocytosis Spherocytes Pappenheimer Bodies Sickle Cells Target Cells Tear Drop Cells Ovalocytes Helmet Cells Stewart-[place] Bodies [place] Rings [place] Cells Bite Cells Crenated Cell Elliptocytes Acanthocytes (Spur) Rouleaux Hemoglobin C Crystals Schistocytes Malaria parasites Janes Bodies Hem Pathologist Commnt POC ABG pH 7.391 POC ABG pCO2 POC ABG pO2 91 POC ABG HCO3 16.5 POC ABG Total CO2 17 POC ABG O2 Sat 97 POC ABG Base Excess -8 FiO2 30 Sodium Potassium Chloride Carbon Dioxide Anion Gap BUN Creatinine Estimated GFR BUN/Creatinine Ratio Glucose POC Glucose Calcium Magnesium
[2018-10-30] MEDS: SODIUM CHLORIDE FLUSH SYRINGE 10 ML IV SCH (13:21)
[2018-10-30] MEDS: FLAGYL 500 MG/100 ML 500 MG/100 ML BAG IV SCH ×2 (13:26→22:06)
--- NOTE | 2018-10-30 13:43 | Progress Note ---
Assessment and Plan Assessment and plan: Sepsis/leukocytosis. ID consulted. Continue antibiotics per ID. Etiology likely secondary to pneumonia. Follow-up CT chest. Partial small bowel obstruction. Abdominal distention improved. +flatus but no BM. No evidence of abd pain. Continue NGT. f/u X-ray showed improvement in small bowel dilatation as well. Repeat CT of chest/abdomen pending for today given no improvement in WBC. Surgery following. GI no plans for endoscopy and signed off. Acute exacerbation COPD. Scheduled Duo Nebs and Pulmicort; albuterol when necessary Acute hypoxic respiratory failure. Patient was reintubated on 10/28/18 and currently on mechanical ventilation. Hypokalemia. Replete potassium. Hypertension. IV hydralazine when necessary Lupus. Supportive care Fibromyalgia. supportive care History of opioid dependence ADWOA due to vasomotor nephropathy, now resolved History Interval history: Patient is 73-year-old female with history of hypertension, lupus, fibromyalgia, COPD, opioid dependence (follows Dr. Felix Muñiz at pain clinic) who presented to [facility] ED with complaints of intractable nausea, vomiting, diarrhea for 3 days. On initial presentation to the ED she was found to be tachycardiac with heart rate 113 BPM, leukocytosis with WBC 11.5, elevated BUN/Cr 51/2.1. Patient has history of COPD and at baseline does not require home oxygen use. She was admitted to [facility]. GI was consulted, she was evaluated. CT Abdomen revealed partial SBO versus ileus therefore surgeon consulted. Also patient became more short of breath, placed on BIPAP with no improvement then intubated 10/26/18 for acute resp failure and transferred to ICU. Obstruction series completed on 10/27 which showed improved but small bowel and stomach dilatation. Follow-up series on 10/28 showed no significant change since previous study. NG tube was removed due to patient not tolerating/refusing. Patient was placed back on BiPAP but decompensated on the night of 10/28/18 and had to be reintubated. Patient currently on mechanical ventilation.. Hospitalist Physical - Constitutional Vitals: Temp Pulse Resp BP Pulse Ox 97.0 F L 103 H 26 H 123/57 95 10/30/18 08:00 10/30/18 12:53 10/30/18 12:53 10/30/18 12:32 10/30/18 12:32 General appearance: Present: mild distress, other - EENT Eyes: Present: PERRL, EOM intact ENT: hearing intact, clear oral mucosa, dentition normal - Neck Neck: Present: supple, normal ROM - Respiratory Respiratory effort: normal Respiratory: bilateral: CTA - Cardiovascular Rhythm: regular Heart Sounds: Present: S1 & S2. Absent: gallop, rub - Extremities Extremities: no ischemia, No edema, Full ROM - Abdominal General gastrointestinal: soft, non-tender, non-distended, normal bowel sounds - Integumentary Integumentary: Present: clear, warm, dry - Neurologic Neurologic: CNII-XII intact, moves all extremities Results - Labs CBC & Chem 7: 10/30/18 05:00 10/30/18 05:00 Labs: Laboratory Last Values WBC 21.4 K/mm3 (4.5-11.0) H 10/30/18 05:00 RBC 3.80 M/mm3 (3.65-5.03) 10/30/18 05:00 Hgb 12.2 gm/dl (10.1-14.3) 10/30/18 05:00 Hct 36.7 % (30.3-42.9) 10/30/18 05:00 MCV 97 fl (79-97) 10/30/18 05:00 MCH 32 pg (28-32) 10/30/18 05:00 MCHC 33 % (30-34) 10/30/18 05:00 RDW 14.9 % (13.2-15.2) 10/30/18 05:00 Plt Count 134 K/mm3 (140-440) L 10/30/18 05:00 Lymph % (Auto) 10.2 % (13.4-35.0) L 10/23/18 04:32 Cecil % (Auto) 14.7 % (0.0-7.3) H 10/23/18 04:32 Eos % (Auto) 0.1 % (0.0-4.3) 10/23/18 04:32 Baso % (Auto) 0.1 % (0.0-1.8) 10/23/18 04:32 Lymph # 0.7 K/mm3 (1.2-5.4) L 10/23/18 04:32 Cecil # 1.0 K/mm3 (0.0-0.8) H 10/23/18 04:32 Eos # 0.0 K/mm3 (0.0-0.4) 10/23/18 04:32 Baso # 0.0 K/mm3 (0.0-0.1) 10/23/18 04:32 Add Manual Diff Complete 10/30/18 05:00 Total Counted 100 10/30/18 05:00 Seg Neutrophils % 74.9 % (40.0-70.0) H 10/23/18 04:32 Seg Neuts % (Manual) 97.0 % (40.0-70.0) H 10/30/18 05:00 0 % 10/30/18 05:00 3.0 % (13.4-35.0) L 10/30/18 05:00 Reactive Lymphs % (Man) 0 % 10/30/18 05:00 0 % (0.0-7.3) 10/30/18 05:00 0 % (0.0-4.3) 10/30/18 05:00 0 % (0.0-1.8) 10/30/18 05:00 0 % 10/30/18 05:00 0 % 10/30/18 05:00 0 % 10/30/18 05:00 0 % 10/30/18 05:00 Nucleated RBC % Not Reportable 10/30/18 05:00 Seg Neutrophils # 5.2 K/mm3 (1.8-7.7) 10/23/18 04:32 Seg Neutrophils # Man 20.8 K/mm3 (1.8-7.7) H 10/30/18 05:00 Band Neutrophils # 0.0 K/mm3 10/30/18 05:00 0.6 K/mm3 (1.2-5.4) L 10/30/18 05:00 Abs React Lymphs (Man) 0.0 K/mm3 10/30/18 05:00 0.0 K/mm3 (0.0-0.8) 10/30/18 05:00 0.0 K/mm3 (0.0-0.4) 10/30/18 05:00 0.0 K/mm3 (0.0-0.1) 10/30/18 05:00 0.0 K/mm3 10/30/18 05:00 0.0 K/mm3 10/30/18 05:00 0.0 K/mm3 10/30/18 05:00 Blast Cells # 0.0 K/mm3 10/30/18 05:00 WBC Morphology Not Reportable 10/30/18 05:00 Hypersegmented Neuts Not Reportable 10/30/18 05:00 Hyposegmented Neuts Not Reportable 10/30/18 05:00 Hypogranular Neuts Not Reportable 10/30/18 05:00 Not Reportable 10/30/18 05:00 1+ 10/30/18 05:00 Not Reportable 10/30/18 05:00 Not Reportable 10/30/18 05:00 Not Reportable 10/30/18 05:00 Not Reportable 10/30/18 05:00 Consistent w auto 10/30/18 05:00 Not Reportable 10/30/18 05:00 Plt Clumps, EDTA Not Reportable 10/30/18 05:00 Not Reportable 10/30/18 05:00 Not Reportable 10/30/18 05:00 Not Reportable 10/30/18 05:00 Plt Morphology Comment Not Reportable 10/30/18 05:00 RBC Morphology Normal 10/30/18 05:00 Dimorphic RBCs Not Reportable 10/30/18 05:00 Not Reportable 10/30/18 05:00 Not Reportable 10/30/18 05:00 Not Reportable 10/30/18 05:00 Not Reportable 10/30/18 05:00 Not Reportable 10/30/18 05:00 Not Reportable 10/30/18 05:00 Not Reportable 10/30/18 05:00 Not Reportable 10/30/18 05:00 Not Reportable 10/30/18 05:00 Not Reportable 10/30/18 05:00 Not Reportable 10/30/18 05:00 Not Reportable 10/30/18 05:00 Not Reportable 10/30/18 05:00 Not Reportable 10/30/18 05:00 Not Reportable 10/30/18 05:00 Not Reportable 10/30/18 05:00 Not Reportable 10/30/18 05:00 Not Reportable 10/30/18 05:00 Not Reportable 10/30/18 05:00 Acanthocytes (Spur) Not Reportable 10/30/18 05:00 Rouleaux Not Reportable 10/30/18 05:00 Not Reportable 10/30/18 05:00 Not Reportable 10/30/18 05:00 Not Reportable 10/30/18 05:00 Not Reportable 10/30/18 05:00 Hem Pathologist Commnt No 10/30/18 05:00 POC ABG pH 7.391 (7.35-7.45) 10/30/18 08:28 POC ABG pCO2 35.7 (35-45) 10/30/18 05:26 POC ABG pO2 91 (80-105) 10/30/18 08:28 POC ABG HCO3 16.5 (22-26 mml/L) 10/30/18 08:28 POC ABG Total CO2 17 (23-27mmol/L) 10/30/18 08:28 POC ABG O2 Sat 97 10/30/18 08:28 POC ABG Base Excess -8 ((-2) - (+3)mmol/L) 10/30/18 08:28 30 % 10/30/18 08:28 Sodium 148 mmol/L (137-145) H 10/30/18 05:00 Potassium 3.1 mmol/L (3.6-5.0) L 10/30/18 05:00 Chloride 120.3 mmol/L (98-107) H 10/30/18 05:00 Carbon Dioxide 18 mmol/L (22-30) L 10/30/18 05:00 13 mmol/L 10/30/18 05:00 BUN 31 mg/dL (7-17) H 10/30/18 05:00 1.2 mg/dL (0.7-1.2) 10/30/18 05:00 Estimated GFR 44 ml/min 10/30/18 05:00 26 % 10/30/18 05:00 Glucose 205 mg/dL (65-100) H 10/30/18 05:00 POC Glucose 146 (70-105) H 10/30/18 13:23 Lactic Acid 1.60 mmol/L (0.7-2.0) 10/26/18 15:03 Calcium 8.0 mg/dL (8.4-10.2) L 10/30/18 05:00 Phosphorus 2.60 mg/dL (2.5-4.5) D 05/27/19 05:00 Magnesium 2.20 mg/dL (1.7-2.3) 10/30/18 05:00 0.40 mg/dL (0.1-1.2) 10/22/18 15:54 AST 25 units/L (5-40) 10/22/18 15:54 ALT 22 units/L (7-56) 10/22/18 15:54 129 units/L (35-129) 10/22/18 15:54 7.6 g/dL (6.3-8.2) 10/22/18 15:54 3.4 g/dL (3.9-5) L 10/22/18 15:54 0.8 % 10/22/18 15:54 10 units/L (13-60) L 10/22/18 15:54 Dulce (Yellow) 10/22/18 19:10 Clear (Clear) 10/22/18 19:10 5.0 (5.0-7.0) 10/22/18 19:10 Ur Specific [place] 1.018 (1.003-1.030) 10/22/18 19:10 30 mg/dl mg/dL (Negative) 10/22/18 19:10 Neg mg/dL (Negative) 10/22/18 19:10 Tr mg/dL (Negative) 10/22/18 19:10 Neg (Negative) 10/22/18 19:10 Neg (Negative) 10/22/18 19:10 Neg (Negative) 10/22/18 19:10 < 2.0 mg/dL (<2.0) 10/22/18 19:10 Ur Leukocyte Esterase Neg (Negative) 10/22/18 19:10 1.0 /HPF (0.0-6.0) 10/22/18 19:10 3.0 /HPF (0.0-6.0) 10/22/18 19:10 Active Medications - Current Medications Current Medications: Generic Name Dose Route Start Last Admin Trade Name Freq PRN Reason Stop Dose Admin Acetaminophen 650 mg 10/22/18 20:10 Tylenol PO Q4H PRN Pain MILD(1-3)/Fever >100.5/PORTER Albuterol 2.5 mg 10/22/18 20:14 10/28/18 06:34 Proventil IH 2.5 mg Q4HRT PRN Administration Shortness Of Breath Albuterol/Ipratropium 1 ampul 10/28/18 12:00 10/30/18 12:35 Duoneb *Not For Prn Use* IH 1 ampul Q4HRT RICK Administration Budesonide 0.5 mg 10/23/18 08:00 10/30/18 08:34 Pulmicort IH 0.5 mg Q12HRT RICK Administration Dextrose 50 ml 10/26/18 23:40 10/27/18 00:20 D50w (25gm) Syringe IV 50 ml PRN PRN Administration Hypoglycemia Hydralazine HCl 10 mg 10/22/18 21:41 Apresoline IV Q4HR PRN Blood Pressure Dextrose/Sodium Chloride 1,000 mls @ 100 mls/hr 10/28/18 10:00 10/30/18 06:07 D5/0.45ns IV 75 mls/hr DIRECT RICK Administration Fentanyl Citrate 2,000 mcg in 100 mls @ 1.2 mls/hr 10/29/18 11:00 10/29/18 10:38 Fentanyl Drip Premix IV 0.5 mcg/kg/hr TITR RICK 1.2 mls/hr Administration Protocol 0.5 MCG/KG/HR Cefepime HCl 2 gm in 100 mls @ 200 mls/hr 10/30/18 14:00 Maxipime/Ns 2 Gm/100 Ml IV Q8HR RICK Protocol Metronidazole 500 mg in 100 mls @ 100 mls/hr 10/30/18 14:00 10/30/18 13:26 Flagyl 500 Mg/100 Ml IV 100 mls/hr Q8HR RICK Administration Protocol Insulin Human Lispro 0 unit 10/29/18 12:00 10/30/18 13:21 Humalog SUB-Q Not Given Q6HR RICK Protocol Lorazepam 0.5 mg 10/26/18 22:44 10/26/18 23:14 Ativan IV 0.5 mg Q4H PRN Administration Anxiety Metoprolol Tartrate 5 mg 10/27/18 16:05 10/30/18 09:57 Lopressor IV 5 mg Q6H RICK Administration Morphine Sulfate 2 mg 10/24/18 13:39 10/29/18 05:46 Morphine IV 2 mg Q4H PRN Administration Pain, Moderate (4-6) Ondansetron HCl 4 mg 10/24/18 10:05 10/25/18 17:26 Zofran IV 4 mg Q6H PRN Administration Nausea And Vomiting Oxycodone/Acetaminophen 1 tab 10/22/18 20:10 10/24/18 06:15 Percocet 5/325 PO 1 tab Q6H PRN Administration Pain, Moderate (4-6) Pantoprazole Sodium 40 mg 10/24/18 11:00 10/30/18 09:57 Protonix IV 40 mg QDAY RICK Administration Phenol 1 spray 10/28/18 10:16 Chloraseptic MM PRN PRN Sore Throat Promethazine HCl 25 mg 10/22/18 20:10 10/22/18 21:21 Phenergan [place] 25 mg Q6H PRN Administration Nausea And Vomiting Sodium Chloride 10 ml 10/22/18 22:00 10/30/18 13:21 Sodium Chloride Flush Syringe 10 Ml IV 10 ml BID RICK Administration Sodium Chloride 10 ml 10/22/18 20:10 10/24/18 18:32 Sodium Chloride Flush Syringe 10 Ml IV 10 ml PRN PRN Administration LINE FLUSH Nutrition/Malnutrition Assess - Dietary Evaluation Nutrition/Malnutrition Findings: Nutrition Notes Start: 10/23/18 17:03 Freq: Status: Active Protocol: Document 10/29/18 09:46 LP (Rec: 10/29/18 10:05 LP [id number]) Nutrition Notes Need for Assessment generated from: LOS Initial or Follow up Assessment Current Diagnosis Acute Kidney Injury,COPD, Hypertension Other Pertinent Diagnosis partial SBO, lupus, opiod dependence, SIRS Current Diet NPO Labs/Tests Na 147 K 3.5 BUN 30 BG 246 Pertinent Medications D5 1/2 NS at 100ml/hr Solumedrol Height 5 ft 3 in Weight 48 kg [place] Body Weight (kg) 52.27 BMI 18.7 Subjective/Other Information Screen for LOS. Pt on vent. NGT to LIS. Pt has not had a diet since admission 10/22/2018 . Pt will need nutrition soon. If unable to use gut, will need TPN. Burn Absent Trauma Absent #1 Nutrition Diagnosis Inadequate oral intake Etiology vent/altered GI function As Evidenced by Signs and Symptoms Pt NPO for 7 days Is patient on ventilator? Yes Is Patient Ambulatory and/or Out of Bed No REE-([facility]-confined to bed) 1157.292 Kcal/Kg value to use for calculation 35 Approximate Energy Requirements Using 1680 kcal/Kg Calculation Used for Recommendations Kcal/kg Additional Notes Protein needs are 58-96g (1.2- 2g/kg) Fluid needs are 1ml/kcal Nutrition Intervention Change Diet Order: TF or TPN Goal #1 Initiate TF or TPN Anticipated Discharge Needs: Unable to determine at this time Follow-Up By: 10/31/18 Additional Comments Follow for POC
[2018-10-30] MEDS: MAXIPIME/NS 2 GM/100 ML 2 GM/100 ML BAG IV SCH ×2 (15:00→22:05)
--- NOTE | 2018-10-30 15:29 | Event Note ---
Date: 10/30/18 Ct scan chest/abd/pelvis reviewed with radiologist Dr. Garces. Patient with bilateral upper lobe infiltrates and bilateral pleural effusions. Small bowel obstruction pattern has resolved. There is a small contained gastric perforation at the lesser curvature near the GE junction. No gross free air or free contrast extravasation into the abdomen. Pneumobilia again seen. I spoke with the patient and her at bedside regarding CT findings. I reviewed images with Mr. Park. He relays new information regarding history of reflux and epigastric pain, nausea that the patient would commonly complain about and self treated with nexium. Nexium did make the pain better. She never had an endoscopy to specifically look for ulcers. She also has a history of open cholecystectomy. Per Mr. Park, the patient had a duct filled with stones, underwent endoscopy and "multiple doctors were unable to get to it" and so she went to a specialist at [facility]. At [facility], a surgeon performed open cholecystectomy, removed stones from the duct and reconstructed a duct. I am assuming the patient underwent open common bile duct exploration and reconstruction of the common bile duct based on this history. This would explain the pneumobilia on CT scan. At this time, I recommend continuing treatment of aspiration pneumonia and Acute respiratory failure. For the contained gastric perforation, I recommend continuing NGT to LCWS and changing to protonix 40mg IV BID. Spoke with route contractor and will start TPN, patient already has PICC. I spoke with Dr. Grey who has seen the patient and adjusted antibiotics. Will add fluconazole 400mg IV daily. Plan discussed with patient's RN, patient and her at bedside.
--- NOTE | 2018-10-30 16:53 | Progress Note ---
Assessment and Plan - Patient Problems (1) Hypernatremia Current Visit: Yes Status: Acute Plan to address problem: pt remains on NGT, persistent hypernatremia noted, cont D51/2 at 100ml/hr. (2) Acute renal failure Current Visit: Yes Status: Acute Plan to address problem: Prerenal azotemia secondary to volume depletion, now stabilizing, pt remains non-oliguric. cont IVF to D51/2NS. Follow-up electrolytes and renal function. (3) Hypokalemia Current Visit: Yes Status: Acute Plan to address problem: Supplement potassium with KCl Follow potassium level (4) Abdominal distention, non-gaseous Current Visit: Yes Status: Acute Plan to address problem: partial small bowel obstruction. General surgery on the case. Patient with NG tube to low intermittent wall suction. (5) Acute respiratory failure with hypoxia Current Visit: Yes Status: Acute Plan to address problem: Continue management by pulmonary (6) Intractable nausea and vomiting Current Visit: Yes Status: Acute Plan to address problem: Improved (7) Hypotension Current Visit: Yes Status: Acute Plan to address problem: BP stable off vasopressors Subjective Date of service: 10/30/18 Principal diagnosis: colitis, N/V/D Interval history: Pt is on awake, alert, remains on NGT, not passing gas/no BMs reported Objective - Vital Signs Vital signs: Vital Signs - 12hr 10/30/18 10/30/18 10/30/18 04:57 05:01 05:31 Temperature Pulse Rate 109 H 113 H 111 H Pulse Rate [ Anterior Bilateral] Pulse Rate [ From Monitor] Respiratory 27 H 24 Rate Respiratory Rate [Abdomen] Respiratory Rate [Anterior Bilateral] Blood Pressure 135/70 135/70 122/58 O2 Sat by Pulse 91 90 92 Oximetry 10/30/18 10/30/18 10/30/18 06:01 06:17 06:31 Temperature Pulse Rate 114 H 110 H 87 Pulse Rate [ Anterior Bilateral] Pulse Rate [ From Monitor] Respiratory 26 H 24 Rate Respiratory Rate [Abdomen] Respiratory Rate [Anterior Bilateral] Blood Pressure 134/80 134/80 109/35 O2 Sat by Pulse 93 Oximetry 10/30/18 10/30/18 10/30/18 07:01 07:31 08:00 Temperature 97.0 F L Pulse Rate 96 H 97 H Pulse Rate [ Anterior Bilateral] Pulse Rate [ 95 H From Monitor] Respiratory 24 25 H 24 Rate Respiratory Rate [Abdomen] Respiratory Rate [Anterior Bilateral] Blood Pressure 109/35 122/62 O2 Sat by Pulse 96 95 Oximetry 10/30/18 10/30/18 10/30/18 08:01 08:30 08:31 Temperature Pulse Rate 94 H 97 H 95 H Pulse Rate [ Anterior Bilateral] Pulse Rate [ From Monitor] Respiratory 24 24 Rate Respiratory Rate [Abdomen] Respiratory Rate [Anterior Bilateral] Blood Pressure 116/62 125/55 125/55 O2 Sat by Pulse 96 96 98 Oximetry 10/30/18 10/30/18 10/30/18 08:34 08:53 09:00 Temperature Pulse Rate 100 H Pulse Rate [ 96 H 82 Anterior Bilateral] Pulse Rate [ From Monitor] Respiratory 25 H Rate Respiratory 25 H Rate [Abdomen] Respiratory 24 24 Rate [Anterior Bilateral] Blood Pressure 117/63 O2 Sat by Pulse 96 Oximetry 10/30/18 10/30/18 10/30/18 09:31 09:57 10:00 Temperature Pulse Rate 110 H 102 H 103 H Pulse Rate [ Anterior Bilateral] Pulse Rate [ From Monitor] Respiratory 19 Rate Respiratory Rate [Abdomen] Respiratory Rate [Anterior Bilateral] Blood Pressure 117/63 137/118 O2 Sat by Pulse 93 Oximetry 10/30/18 10/30/18 10/30/18 10:01 10:31 11:01 Temperature Pulse Rate 103 H 92 H 94 H Pulse Rate [ Anterior Bilateral] Pulse Rate [ From Monitor] Respiratory 24 24 26 H Rate Respiratory Rate [Abdomen] Respiratory Rate [Anterior Bilateral] Blood Pressure 137/118 109/73 109/73 O2 Sat by Pulse 83 L 95 94 Oximetry 10/30/18 10/30/18 10/30/18 11:31 12:00 12:23 Temperature 97.9 F Pulse Rate 84 94 H Pulse Rate [ Anterior Bilateral] Pulse Rate [ 92 H From Monitor] Respiratory 24 26 H 24 Rate Respiratory Rate [Abdomen] Respiratory Rate [Anterior Bilateral] Blood Pressure 136/56 O2 Sat by Pulse 98 95 95 Oximetry 10/30/18 10/30/18 10/30/18 12:31 12:32 12:35 Temperature Pulse Rate 100 H 92 H Pulse Rate [ 94 H Anterior Bilateral] Pulse Rate [ From Monitor] Respiratory 25 H Rate Respiratory Rate [Abdomen] Respiratory 26 H Rate [Anterior Bilateral] Blood Pressure 123/57 123/57 O2 Sat by Pulse 95 95 Oximetry 10/30/18 10/30/18 10/30/18 12:53 13:01 13:31 Temperature Pulse Rate 107 H 106 H Pulse Rate [ 103 H Anterior Bilateral] Pulse Rate [ From Monitor] Respiratory 25 H 26 H Rate Respiratory Rate [Abdomen] Respiratory 26 H Rate [Anterior Bilateral] Blood Pressure 165/66 171/75 O2 Sat by Pulse 93 92 Oximetry 10/30/18 10/30/18 10/30/18 14:01 14:31 15:01 Temperature Pulse Rate 105 H 98 H 101 H Pulse Rate [ Anterior Bilateral] Pulse Rate [ From Monitor] Respiratory 27 H 27 H 26 H Rate Respiratory Rate [Abdomen] Respiratory Rate [Anterior Bilateral] Blood Pressure 171/75 132/54 135/64 O2 Sat by Pulse 92 92 94 Oximetry 10/30/18 10/30/18 10/30/18 16:00 16:24 16:29 Temperature 97.5 F L Pulse Rate 98 H Pulse Rate [ 116 H Anterior Bilateral] Pulse Rate [ From Monitor] Respiratory Rate Respiratory Rate [Abdomen] Respiratory 26 H Rate [Anterior Bilateral] Blood Pressure 116/55 O2 Sat by Pulse 95 Oximetry 10/30/18 16:40 Temperature Pulse Rate 91 H Pulse Rate [ Anterior Bilateral] Pulse Rate [ From Monitor] Respiratory Rate Respiratory Rate [Abdomen] Respiratory Rate [Anterior Bilateral] Blood Pressure 116/55 O2 Sat by Pulse Oximetry - General Appearance General appearance: well-developed, appears stated age, chronically ill EENT: ATNC, PERRL, mucous membranes dry Neck: no JVD Respiratory: Present: Decreased Breath Sounds Cardiology: regular, S1S2 Gastrointestinal: normoactive bowel sounds Integumentary: no rash, other (no edema ) Neurologic: no focal deficit, alert and oriented x3, strength 5/5, CN 3-12 intact Psychiatric: mood/affect appropriate, cooperative - Lab 10/30/18 05:00 10/30/18 05:00 Most recent lab results Calcium 8.0 mg/dL (8.4-10.2) L 10/30/18 05:00 Phosphorus 2.60 mg/dL (2.5-4.5) D 10/27/18 05:00 Magnesium 2.20 mg/dL (1.7-2.3) 10/30/18 05:00 Medications & Allergies - Medications Allergies/Adverse Reactions: Allergies Sulfa (Sulfonamide Antibiotics) Allergy (Intermediate, Verified 10/22/18 16:30) Rash metoclopramide HCl [From Reglan] Allergy (Verified 10/22/18 16:30) Dizziness prochlorperazine [From Compazine] Allergy (Verified 10/22/18 16:30) NECK STIFFNESS Home Medications: Home Medications Medication Instructions Recorded Confirmed Last Taken Type Ondansetron 4 mg PO Q6HR PRN 12/05/16 10/22/18 10/29/17 History Propranolol HCl [Propranolol HCl 60 mg PO DAILY 12/05/16 10/22/18 10/30/17 22:00 History ER] QUEtiapine [SEROquel] 300 mg PO DAILY 12/05/16 10/22/18 10/30/17 History Lasix TAB 40 mg PO PRN PRN 12/07/16 10/22/18 10/24/17 History Percocet 10/325 mg 1 tab PO PRN PRN 12/07/16 10/22/18 10/30/17 History Albuterol Sulfate [Albuterol 0.63% 0.63 mg IH TID PRN 10/22/17 10/22/18 10/29/17 History NEBS] Active Medications: Generic Name Dose Route Start Last Admin Trade Name Freq PRN Reason Stop Dose Admin Acetaminophen 650 mg 10/22/18 20:10 Tylenol PO Q4H PRN Pain MILD(1-3)/Fever >100.5/PORTER Albuterol 2.5 mg 10/22/18 20:14 10/28/18 06:34 Proventil IH 2.5 mg Q4HRT PRN Administration Shortness Of Breath Albuterol/Ipratropium 1 ampul 10/28/18 12:00 10/30/18 16:28 Duoneb *Not For Prn Use* IH 1 ampul Q4HRT RICK Administration Budesonide 0.5 mg 10/23/18 08:00 10/30/18 08:34 Pulmicort IH 0.5 mg Q12HRT RICK Administration Dextrose 50 ml 10/26/18 23:40 10/27/18 00:20 D50w (25gm) Syringe IV 50 ml PRN PRN Administration Hypoglycemia Hydralazine HCl 10 mg 10/22/18 21:41 Apresoline IV Q4HR PRN Blood Pressure Dextrose/Sodium Chloride 1,000 mls @ 100 mls/hr 10/28/18 10:00 10/30/18 06:07 D5/0.45ns IV 75 mls/hr DIRECT RICK Administration Fentanyl Citrate 2,000 mcg in 100 mls @ 1.2 mls/hr 10/29/18 11:00 10/29/18 10:38 Fentanyl Drip Premix IV 0.5 mcg/kg/hr TITR RICK 1.2 mls/hr Administration Protocol 0.5 MCG/KG/HR Cefepime HCl 2 gm in 100 mls @ 200 mls/hr 10/30/18 14:00 10/30/18 15:00 Maxipime/Ns 2 Gm/100 Ml IV 200 mls/hr Q8HR [facility] Administration Protocol Metronidazole 500 mg in 100 mls @ 100 mls/hr 10/30/18 14:00 10/30/18 13:26 Flagyl 500 Mg/100 Ml IV 100 mls/hr Q8HR [facility] Administration Protocol Fluconazole 200 mls @ 100 mls/hr 10/30/18 16:00 Diflucan IV Q24HR [facility] Protocol Insulin Human Lispro 0 unit 10/29/18 12:00 10/30/18 13:21 Humalog SUB-Q Not Given Q6HR [facility] Protocol Lorazepam 0.5 mg 10/26/18 22:44 10/26/18 23:14 Ativan IV 0.5 mg Q4H PRN Administration Anxiety Metoprolol Tartrate 5 mg 10/27/18 16:05 10/30/18 16:40 Lopressor IV 5 mg Q6H RICK Administration Morphine Sulfate 2 mg 10/24/18 13:39 10/29/18 05:46 Morphine IV 2 mg Q4H PRN Administration Pain, Moderate (4-6) Ondansetron HCl 4 mg 10/24/18 10:05 10/25/18 17:26 Zofran IV 4 mg Q6H PRN Administration Nausea And Vomiting Pantoprazole Sodium 40 mg 10/30/18 22:00 Protonix IV BID [facility] Phenol 1 spray 10/28/18 10:16 Chloraseptic MM PRN PRN Sore Throat Promethazine HCl 25 mg 10/22/18 20:10 10/22/18 21:21 Phenergan [place] 25 mg Q6H PRN Administration Nausea And Vomiting Sodium Chloride 10 ml 10/22/18 22:00 10/30/18 13:21 Sodium Chloride Flush Syringe 10 Ml IV 10 ml BID RICK Administration Sodium Chloride 10 ml 10/22/18 20:10 10/24/18 18:32 Sodium Chloride Flush Syringe 10 Ml IV 10 ml PRN PRN Administration LINE FLUSH
--- NOTE | 2018-10-30 17:35 | Cat Scan Report ---
PROCEDURE: CT abdomen and pelvis with contrast. TECHNIQUE: Computerized axial tomography of the abdomen and pelvis was performed after the IV inject ion of iodinated nonionic contrast. CT DOSE LENGTH PRODUCT: Not provided mGycm HISTORY: persistent leukocytosis COMPARISONS: CT abdomen and pelvis 10/23/2018. FINDINGS: There is some compressive atelectasis in the left lower lobe. There are large bilateral pleural effus ions. Both of these effusions have increased since the previous study. The heart size is normal. Ther e are bilateral breast prostheses. The liver, pancreas and spleen appear normal. There is a small aura unt of pneumobilia. The gallbladder has been removed. There is no significant biliary dilatation. The adrenal glands are not enlarged. There are small cysts in the right kidney. The left kidney is atrop hic. The abdominal aorta has a normal caliber. There is no retroperitoneal adenopathy. There is a mod erate amount of ascites in the abdomen and pelvis. This has increased significantly since the previou s study. A nasogastric tube enters the stomach. The gastrointestinal tract is unremarkable. There are no signs of intestinal obstruction. The colon has been removed except for the rectosigmoid portion. There may be some bowel wall thickening at the anastomosis. The bladder is unremarkable. The uterus h as been removed. There is internal fixation hardware in the proximal left femur. The regional skeleto n appears intact. IMPRESSION: Large bilateral pleural effusions, worse since the previous study. Moderately large amou nt of ascites, also worse since the previous study. Previous total colectomy except for the rectosigm oid colon. Small amount of pneumobilia, unchanged. Atrophic left kidney. Possible bowel wall thickeni ng at the rectosigmoid anastomosis. Previous hysterectomy. This document is electronically signed by Norberto Christine MD., Oct 30 2018 05:33:28 PM ET
[2018-10-30] MEDS: DIFLUCAN 200 ML IV SCH (17:46)
--- NOTE | 2018-10-30 17:46 | Cat Scan Report ---
PROCEDURE: CT chest with contrast. TECHNIQUE: Computerized axial tomography of the chest was performed during the IV injection of iodin ated nonionic contrast. CT DOSE LENGTH PRODUCT: 3277.4 mGycm HISTORY: persistent leukocytosis COMPARISONS: None. FINDINGS: The trachea and central bronchi appear normal. There is an endotracheal tube in satisfactory position . There are patchy alveolar opacities in both upper lobes. This is consistent with pneumonia. Clinica l correlation is recommended. There is a small area of compressive atelectasis in the left lower lobe . There are large bilateral pleural effusions, left greater than right. The thoracic aorta has a norm al caliber without evidence of dissection. The pulmonary arteries enhance normally. There are no sign s of pulmonary embolism. There are a few small nonspecific mediastinal lymph nodes. The heart size is normal. There are bilateral breast prostheses. The thoracic skeleton appears intact. There is asciti c fluid visible in the upper abdomen. A nasogastric tube enters the stomach. IMPRESSION: Bilateral upper lobe pneumonia. Large bilateral pleural effusions, left greater than rig ht. Ascites. This document is electronically signed by Norberto Christine MD., Oct 30 2018 05:44:11 PM ET
[2018-10-30] MEDS ORDERED: CLINIMIX IV SCH (20:00)
[2018-10-30] MEDS: fentaNYL DRIP Premix 2,000 MCG/100 ML BAG IV SCH (22:16)
[2018-10-31] MEDS: DUONEB *Not for PRN Use IH SCH ×7 (00:19→23:38)
[2018-10-31] MEDS: LOPRESSOR IV SCH ×5 (00:51→20:00)
[2018-10-31] MEDS: HumaLOG SUB-Q SCH ×4 (00:52→19:12)
[2018-10-31] MEDS: KCL 20MEQ/100ML 20 MEQ/100 ML BAG IV SCH ×2 (02:38→04:30)
[2018-10-31] MEDS ORDERED: LASIX IV ONE (02:40)
[2018-10-31] MEDS: FLAGYL 500 MG/100 ML 500 MG/100 ML BAG IV SCH ×2 (07:04→13:38)
[2018-10-31 07:27] LABS: Calcium 7.5 mg/dL (8.4-10.2)
[2018-10-31] MEDS: PULMICORT IH SCH ×2 (09:32→20:15)
--- NOTE | 2018-10-31 09:46 | Progress Note ---
Assessment and Plan ARF ,reintubated on MV . Bilateral upper lobe pneumonia. Sputum culture now positive for Escherichia coli and stenotrophomonas Partial bowel obstruction, perforation. Abdominal CT scan with bilateral effusions, cystitis and slight pneumobilia. See surgery comments Mixed acidosis ,AG normal. Respiratory component secondary to effusio n/atelectasis plus ongoing metabolic component Chronic pain medications, anti-psychotic therapy . Possible trigger bowel obstruction process Hypernatremia.on D5W Bradycardia episodes. DC B stephon, propofol. Controlled COPD.On nebs.increased congestion. Question of infiltrates on CXR Rec Increase PEEP and recheck ABGs ID to evaluate patient initiated treatment for both Escherichia coli and stenotrophomonas. She is allergic to Bactrim/sulfa Cards evaluation and echocardiogram in the presence of bilateral pleural effusions with ascites. CHF, CLD to be excluded. Had lasix last night Decrease IV ,fluids infusion rate Continue neb therapy ETT suction Continue NG tube to suction,surgery, Sedation vacation during the day,monitor pain meds need. Discussed with patient,spouse and staff in detail. All questions answered. Critical care time was 31 minutes of [id number] evaluation and coordination of care Subjective Date of service: 10/31/18 Principal diagnosis: colitis, N/V/D Interval history: Intubated, Objective Vital Signs - 12hr 10/30/18 10/30/18 10/30/18 22:00 22:01 22:31 Temperature Pulse Rate 96 H 105 H 104 H Pulse Rate [ Anterior Bilateral] Pulse Rate [ From Monitor] Respiratory 26 H 26 H Rate Respiratory Rate [Anterior Bilateral] Blood Pressure 127/56 117/57 O2 Sat by Pulse 93 94 Oximetry 10/30/18 10/30/18 10/30/18 23:01 23:31 23:47 Temperature 97.8 F Pulse Rate 100 H 101 H Pulse Rate [ Anterior Bilateral] Pulse Rate [ From Monitor] Respiratory 26 H 26 H Rate Respiratory Rate [Anterior Bilateral] Blood Pressure 117/65 138/62 O2 Sat by Pulse 94 94 Oximetry 10/30/18 10/31/18 10/31/18 23:54 00:00 00:01 Temperature Pulse Rate 99 H 97 H Pulse Rate [ Anterior Bilateral] Pulse Rate [ 95 H From Monitor] Respiratory 26 H 28 H 25 H Rate Respiratory Rate [Anterior Bilateral] Blood Pressure 117/65 123/63 O2 Sat by Pulse 95 95 Oximetry 10/31/18 10/31/18 10/31/18 00:07 00:20 00:31 Temperature Pulse Rate 96 H 93 H 104 H Pulse Rate [ 92 H Anterior Bilateral] Pulse Rate [ From Monitor] Respiratory 24 24 Rate Respiratory 24 Rate [Anterior Bilateral] Blood Pressure 123/63 115/51 115/51 O2 Sat by Pulse 94 94 Oximetry 10/31/18 10/31/18 10/31/18 00:43 00:51 01:01 Temperature Pulse Rate 119 H 91 H Pulse Rate [ 68 Anterior Bilateral] Pulse Rate [ From Monitor] Respiratory 28 H Rate Respiratory 22 Rate [Anterior Bilateral] Blood Pressure 115/51 133/80 O2 Sat by Pulse 95 Oximetry 10/31/18 10/31/18 10/31/18 01:31 01:55 02:01 Temperature Pulse Rate 102 H 104 H Pulse Rate [ Anterior Bilateral] Pulse Rate [ From Monitor] Respiratory 26 H 28 H Rate Respiratory Rate [Anterior Bilateral] Blood Pressure 151/104 151/104 O2 Sat by Pulse 98 90 Oximetry 10/31/18 10/31/18 10/31/18 02:31 03:01 03:21 Temperature 98.7 F Pulse Rate 90 106 H Pulse Rate [ Anterior Bilateral] Pulse Rate [ From Monitor] Respiratory 24 19 Rate Respiratory Rate [Anterior Bilateral] Blood Pressure 111/47 111/47 O2 Sat by Pulse 96 95 Oximetry 10/31/18 10/31/18 10/31/18 03:30 04:00 04:01 Temperature Pulse Rate 114 H 110 H Pulse Rate [ Anterior Bilateral] Pulse Rate [ 102 H From Monitor] Respiratory 28 H 16 27 H Rate Respiratory Rate [Anterior Bilateral] Blood Pressure 142/90 142/80 O2 Sat by Pulse 94 95 96 Oximetry 10/31/18 10/31/18 10/31/18 04:31 04:35 04:41 Temperature Pulse Rate 102 H 93 H 92 H Pulse Rate [ Anterior Bilateral] Pulse Rate [ From Monitor] Respiratory 25 H Rate Respiratory Rate [Anterior Bilateral] Blood Pressure 134/62 134/62 134/92 O2 Sat by Pulse 96 95 Oximetry 10/31/18 10/31/18 10/31/18 04:50 05:01 05:31 Temperature Pulse Rate 84 81 Pulse Rate [ 107 H Anterior Bilateral] Pulse Rate [ From Monitor] Respiratory 24 24 Rate Respiratory 26 H Rate [Anterior Bilateral] Blood Pressure 115/37 106/43 O2 Sat by Pulse 99 97 Oximetry 10/31/18 10/31/18 10/31/18 06:01 06:30 07:00 Temperature Pulse Rate 88 93 H 102 H Pulse Rate [ Anterior Bilateral] Pulse Rate [ From Monitor] Respiratory 24 24 24 Rate Respiratory Rate [Anterior Bilateral] Blood Pressure 115/50 115/50 130/55 O2 Sat by Pulse 96 95 96 Oximetry 10/31/18 10/31/18 08:00 09:24 Temperature 96.2 F L Pulse Rate 86 Pulse Rate [ Anterior Bilateral] Pulse Rate [ 92 H From Monitor] Respiratory 24 Rate Respiratory Rate [Anterior Bilateral] Blood Pressure 119/41 O2 Sat by Pulse 97 97 Oximetry Constitutional: alert, appears uncomfortable ENT: other (orally intubated) Neck: supple, no JVD Effort: mildly labored Ascultation: Bilateral: clear, diminished breath sounds, rhonchi (mild) Percussion: Bilateral: not dull Cardiovascular: regular rate and rhythm, other (Baseline tachycardia but less than yesterday) Gastrointestinal: hypoactive bowel sounds, other (soft and depressible. Decreased bowel sounds, no rebound tenderness mild distention) Integumentary: normal Extremities: no edema Neurologic: normal mental status, non-focal exam Psychiatric: anxious CBC and BMP: 10/30/18 05:00 10/31/18 07:05 ABG, PT/INR, D-dimer: ABG POC ABG pH 7.238 (7.35-7.45) L 10/31/18 04:39 POC ABG pCO2 39.9 (35-45) 10/31/18 04:39 POC ABG pO2 82 (80-105) 10/31/18 04:39 POC ABG HCO3 17.0 (22-26 mml/L) 10/31/18 04:39 POC ABG Total CO2 18 (23-27mmol/L) 10/31/18 04:39 POC ABG O2 Sat 94 10/31/18 04:39 Abnormal lab findings: Abnormal Labs 10/22/18 10/22/18 10/22/18 15:31 15:54 15:54 WBC 11.5 H RBC 5.35 H Hgb 17.4 H Hct 50.3 H MCV MCH 33 H MCHC 35 H Plt Count Lymph % (Auto) 12.6 L [place] % (Auto) 14.8 H Lymph # [place] # 1.7 H Seg Neutrophils % 72.5 H Seg Neuts % (Manual) Lymphocytes % (Manual) Seg Neutrophils # 8.3 H Seg Neutrophils # Man Lymphocytes # (Manual) POC ABG pH POC ABG pCO2 POC ABG pO2 Sodium 134 L Potassium Chloride 88.1 L Carbon Dioxide BUN 51 H Creatinine 2.1 H Glucose 166 H POC Glucose Calcium Phosphorus Magnesium Albumin 3.4 L Lipase 10 L 10/23/18 10/23/18 10/23/18 04:32 04:32 10:53 WBC RBC Hgb Hct MCV MCH MCHC Plt Count Lymph % (Auto) 10.2 L [place] % (Auto) 14.7 H Lymph # 0.7 L [place] # 1.0 H Seg Neutrophils % 74.9 H Seg Neuts % (Manual) Lymphocytes % (Manual) Seg Neutrophils # Seg Neutrophils # Man Lymphocytes # (Manual) POC ABG pH POC ABG pCO2 POC ABG pO2 Sodium Potassium 3.1 L D 3.5 L Chloride Carbon Dioxide BUN 41 H 37 H Creatinine Glucose 111 H 110 H POC Glucose Calcium 8.1 L 8.1 L Phosphorus Magnesium Albumin Lipase 10/24/18 10/24/18 10/25/18 05:34 05:34 04:51 WBC RBC Hgb Hct MCV MCH MCHC Plt Count Lymph % (Auto) [place] % (Auto) Lymph # [place] # Seg Neutrophils % Seg Neuts % (Manual) Lymphocytes % (Manual) Seg Neutrophils # Seg Neutrophils # Man Lymphocytes # (Manual) POC ABG pH POC ABG pCO2 POC ABG pO2 Sodium Potassium 3.2 L 3.1 L Chloride 109.8 H 114.2 H Carbon Dioxide 17 L D BUN 21 H Creatinine Glucose 134 H 171 H POC Glucose Calcium 7.7 L 7.0 L Phosphorus 0.80 L* Magnesium Albumin Lipase 10/25/18 10/26/18 10/26/18 06:07 02:58 04:57 WBC RBC Hgb Hct MCV 99 H MCH 33 H MCHC Plt Count Lymph % (Auto) [place] % (Auto) Lymph # [place] # Seg Neutrophils % Seg Neuts % (Manual) Lymphocytes % (Manual) Seg Neutrophils # Seg Neutrophils # Man Lymphocytes # (Manual) POC ABG pH 7.090 L 7.320 L POC ABG pCO2 65.0 H 32.8 L POC ABG pO2 76 L Sodium Potassium Chloride Carbon Dioxide BUN Creatinine Glucose POC Glucose Calcium Phosphorus Magnesium Albumin Lipase 10/26/18 10/26/18 10/26/18 06:03 06:03 11:52 WBC 23.8 H RBC Hgb 15.4 H Hct 46.1 H D MCV MCH MCHC Plt Count Lymph % (Auto) [place] % (Auto) Lymph # [place] # Seg Neutrophils % Seg Neuts % (Manual) Lymphocytes % (Manual) Seg Neutrophils # Seg Neutrophils # Man Lymphocytes # (Manual) POC ABG pH POC ABG pCO2 POC ABG pO2 Sodium Potassium Chloride 109.5 H Carbon Dioxide 18 L BUN Creatinine Glucose 128 H POC Glucose 117 H Calcium 8.3 L D Phosphorus Magnesium Albumin Lipase 10/26/18 10/26/18 10/26/18 13:54 17:10 17:32 WBC RBC Hgb Hct MCV MCH MCHC Plt Count Lymph % (Auto) [place] % (Auto) Lymph # [place] # Seg Neutrophils % Seg Neuts % (Manual) Lymphocytes % (Manual) Seg Neutrophils # Seg Neutrophils # Man Lymphocytes # (Manual) POC ABG pH 7.215 L POC ABG pCO2 31.8 L POC ABG pO2 69 L 204 H Sodium Potassium 3.0 L D Chloride 114.5 H Carbon Dioxide 21 L BUN Creatinine Glucose POC Glucose Calcium 7.6 L Phosphorus Magnesium 1.40 L Albumin Lipase 10/26/18 10/27/18 10/27/18 23:13 00:40 01:09 WBC RBC Hgb Hct MCV MCH MCHC Plt Count Lymph % (Auto) [place] % (Auto) Lymph # [place] # Seg Neutrophils % Seg Neuts % (Manual) Lymphocytes % (Manual) Seg Neutrophils # Seg Neutrophils # Man Lymphocytes # (Manual) POC ABG pH POC ABG pCO2 POC ABG pO2 Sodium Potassium 3.4 L Chloride 115.0 H Carbon Dioxide 14 L D BUN Creatinine Glucose 228 H POC Glucose 48 L 264 H Calcium 7.1 L Phosphorus Magnesium Albumin Lipase 10/27/18 10/27/18 10/27/18 05:00 05:00 05:16 WBC 22.5 H RBC Hgb 14.7 H Hct 44.4 H MCV MCH MCHC Plt Count Lymph % (Auto) [place] % (Auto) Lymph # [place] # Seg Neutrophils % Seg Neuts % (Manual) Lymphocytes % (Manual) Seg Neutrophils # Seg Neutrophils # Man Lymphocytes # (Manual) POC ABG pH 7.304 L POC ABG pCO2 POC ABG pO2 116 H Sodium Potassium Chloride 118.4 H Carbon Dioxide 16 L BUN Creatinine Glucose 123 H POC Glucose Calcium 7.7 L Phosphorus Magnesium 2.60 H Albumin Lipase 10/28/18 10/28/18 10/28/18 04:25 04:25 15:37 WBC 23.5 H RBC Hgb Hct MCV MCH MCHC Plt Count Lymph % (Auto) [place] % (Auto) Lymph # [place] # Seg Neutrophils % Seg Neuts % (Manual) Lymphocytes % (Manual) Seg Neutrophils # Seg Neutrophils # Man Lymphocytes # (Manual) POC ABG pH POC ABG pCO2 POC ABG pO2 Sodium 147 H Potassium Chloride 116.9 H Carbon Dioxide 16 L BUN 23 H Creatinine Glucose POC Glucose 114 H Calcium 8.0 L Phosphorus Magnesium Albumin Lipase 10/28/18 10/28/18 10/28/18 20:33 22:07 23:31 WBC RBC Hgb Hct MCV MCH MCHC Plt Count Lymph % (Auto) [place] % (Auto) Lymph # [place] # Seg Neutrophils % Seg Neuts % (Manual) Lymphocytes % (Manual) Seg Neutrophils # Seg Neutrophils # Man Lymphocytes # (Manual) POC ABG pH 7.202 L 7.235 L POC ABG pCO2 POC ABG pO2 71 L Sodium Potassium Chloride Carbon Dioxide BUN Creatinine Glucose POC Glucose 207 H Calcium Phosphorus Magnesium Albumin Lipase 10/29/18 10/29/18 10/29/18 04:30 04:30 05:26 WBC 21.1 H RBC Hgb Hct MCV MCH MCHC Plt Count Lymph % (Auto) [place] % (Auto) Lymph # [place] # Seg Neutrophils % Seg Neuts % (Manual) 97.0 H Lymphocytes % (Manual) 3.0 L Seg Neutrophils # Seg Neutrophils # Man 20.5 H Lymphocytes # (Manual) 0.6 L POC ABG pH 7.305 L POC ABG pCO2 30.5 L POC ABG pO2 75 L Sodium 147 H Potassium 3.5 L Chloride 120.0 H Carbon Dioxide 17 L BUN 30 H Creatinine Glucose 246 H POC Glucose Calcium 7.9 L Phosphorus Magnesium Albumin Lipase 10/29/18 10/29/18 10/29/18 05:36 11:39 18:00 WBC RBC Hgb Hct MCV MCH MCHC Plt Count Lymph % (Auto) [place] % (Auto) Lymph # [place] # Seg Neutrophils % Seg Neuts % (Manual) Lymphocytes % (Manual) Seg Neutrophils # Seg Neutrophils # Man Lymphocytes # (Manual) POC ABG pH POC ABG pCO2 POC ABG pO2 Sodium Potassium Chloride Carbon Dioxide BUN Creatinine Glucose POC Glucose 204 H 224 H 221 H Calcium Phosphorus Magnesium Albumin Lipase 10/29/18 10/30/18 10/30/18 23:17 05:00 05:00 WBC 21.4 H RBC Hgb Hct MCV MCH MCHC Plt Count 134 L Lymph % (Auto) [place] % (Auto) Lymph # [place] # Seg Neutrophils % Seg Neuts % (Manual) 97.0 H Lymphocytes % (Manual) 3.0 L Seg Neutrophils # Seg Neutrophils # Man 20.8 H Lymphocytes # (Manual) 0.6 L POC ABG pH POC ABG pCO2 POC ABG pO2 Sodium 148 H Potassium 3.1 L Chloride 120.3 H Carbon Dioxide 18 L BUN 31 H Creatinine Glucose 205 H POC Glucose 181 H Calcium 8.0 L Phosphorus Magnesium Albumin Lipase 10/30/18 10/30/18 10/30/18 05:14 05:25 05:26 WBC RBC Hgb Hct MCV MCH MCHC Plt Count Lymph % (Auto) [place] % (Auto) Lymph # [place] # Seg Neutrophils % Seg Neuts % (Manual) Lymphocytes % (Manual) Seg Neutrophils # Seg Neutrophils # Man Lymphocytes # (Manual) POC ABG pH 7.296 L 7.245 L POC ABG pCO2 31.1 L POC ABG pO2 54 L 59 L Sodium Potassium Chloride Carbon Dioxide BUN Creatinine Glucose POC Glucose 199 H Calcium Phosphorus Magnesium Albumin Lipase 10/30/18 10/30/18 10/31/18 13:23 18:25 00:22 WBC RBC Hgb Hct MCV MCH MCHC Plt Count Lymph % (Auto) [place] % (Auto) Lymph # [place] # Seg Neutrophils % Seg Neuts % (Manual) Lymphocytes % (Manual) Seg Neutrophils # Seg Neutrophils # Man Lymphocytes # (Manual) POC ABG pH POC ABG pCO2 POC ABG pO2 Sodium Potassium Chloride Carbon Dioxide BUN Creatinine Glucose POC Glucose 146 H 158 H 162 H Calcium Phosphorus Magnesium Albumin Lipase 10/31/18 10/31/18 10/31/18 04:39 05:14 07:05 WBC RBC Hgb Hct MCV MCH MCHC Plt Count Lymph % (Auto) [place] % (Auto) Lymph # [place] # Seg Neutrophils % Seg Neuts % (Manual) Lymphocytes % (Manual) Seg Neutrophils # Seg Neutrophils # Man Lymphocytes # (Manual) POC ABG pH 7.238 L POC ABG pCO2 POC ABG pO2 Sodium Potassium Chloride 115.8 H Carbon Dioxide 18 L BUN 39 H Creatinine 1.3 H Glucose 167 H POC Glucose 145 H Calcium 7.5 L Phosphorus 1.[address] scan - chest: report reviewed, image reviewed Additional Studies: Abdominal CT scan report noted Allied health notes reviewed: nursing
[2018-10-31] MEDS ORDERED: MAXIPIME/NS 2 GM/100 ML 2 GM/100 ML BAG IV SCH (10:00)
--- NOTE | 2018-10-31 10:52 | Progress Note ---
Assessment and Plan Assessment and plan: Gastric perforation. Surgery reports that it is contained and recommends conservative management with continuing NGT to LCWS, antibiotics/antifungals per ID and protonix 40mg IV BID. Bilateral upper lobe pneumonia. Sputum culture now positive for Escherichia coli and stenotrophomonas. Continue antibiotics per ID. Partial small bowel obstruction. Continue NGT. Acute exacerbation COPD. Scheduled Duo Nebs and Pulmicort; albuterol when necessary Acute hypoxic respiratory failure. Patient was reintubated on 10/28/18 and currently on mechanical ventilation. Etiology secondary to COPD/pneumonia. Wean mechanical ventilation per pulmonary. Hypokalemia. Replete potassium. Hypertension. IV hydralazine when necessary Lupus. Supportive care Fibromyalgia. supportive care History of opioid dependence ADWOA due to vasomotor nephropathy, now resolved The high probability of a clinically significant, sudden or life threatening deterioration of the [GI and respiratory] system(s) required my full and direct attention, intervention and personal management. The aggregate critical care time was [32] minutes. This time is in addition to time spent performing reported procedures but includes the following: [x] Data Review and interpretation [x] Patient assessment and monitoring of vital signs [x] Documentation [x] Medication orders and management History Interval history: Patient is 73-year-old female with history of hypertension, lupus, fibromyalgia, COPD, opioid dependence (follows Dr. Felix Muñiz at pain clinic) who presented to [facility] ED with complaints of intractable nausea, vomiting, diarrhea for 3 days. On initial presentation to the ED she was found to be tachycardiac with heart rate 113 BPM, leukocytosis with WBC 11.5, elevated BUN/Cr 51/2.1. Patient has history of COPD and at baseline does not require home oxygen use. She was admitted to [facility]. GI was consulted, she was evaluated. CT Abdomen revealed partial SBO versus ileus therefore surgeon consulted. Also patient became more short of breath, placed on BIPAP with no improvement then intubated 10/26/18 for acute resp failure and transferred to ICU. Obstruction series completed on 10/27 which showed improved but small bowel and stomach dilatation. Follow-up series on 10/28 showed no significant change since previous study. NG tube was removed due to patient not tolerating/refusing. Patient was placed back on BiPAP but decompensated on the night of 10/28/18 and had to be reintubated. Patient currently on mechanical ventilation.. Hospitalist Physical - Constitutional Vitals: Temp Pulse Resp BP Pulse Ox 96.2 F L 86 24 119/41 97 10/31/18 08:00 10/31/18 09:24 10/31/18 08:00 10/31/18 09:24 10/31/18 09:24 General appearance: Present: mild distress, other - EENT Eyes: Present: PERRL, EOM intact ENT: hearing intact, clear oral mucosa, dentition normal - Neck Neck: Present: supple, normal ROM - Respiratory Respiratory effort: normal Respiratory: bilateral: CTA - Cardiovascular Rhythm: regular Heart Sounds: Present: S1 & S2. Absent: gallop, rub - Extremities Extremities: no ischemia, No edema, Full ROM - Abdominal General gastrointestinal: soft, non-tender, non-distended, normal bowel sounds - Integumentary Integumentary: Present: clear, warm, dry - Neurologic Neurologic: CNII-XII intact, moves all extremities Results - Labs CBC & Chem 7: 10/30/18 05:00 10/31/18 07:05 Labs: Laboratory Last Values WBC 21.4 K/mm3 (4.5-11.0) H 10/30/18 05:00 RBC 3.80 M/mm3 (3.65-5.03) 10/30/18 05:00 Hgb 12.2 gm/dl (10.1-14.3) 10/30/18 05:00 Hct 36.7 % (30.3-42.9) 10/30/18 05:00 MCV 97 fl (79-97) 10/30/18 05:00 MCH 32 pg (28-32) 10/30/18 05:00 MCHC 33 % (30-34) 10/30/18 05:00 RDW 14.9 % (13.2-15.2) 10/30/18 05:00 Plt Count 134 K/mm3 (140-440) L 10/30/18 05:00 Lymph % (Auto) 10.2 % (13.4-35.0) L 10/23/18 04:32 Kid[place] % (Auto) 14.7 % (0.0-7.3) H 10/23/18 04:32 Eos % (Auto) 0.1 % (0.0-4.3) 10/23/18 04:32 Baso % (Auto) 0.1 % (0.0-1.8) 10/23/18 04:32 Lymph # 0.7 K/mm3 (1.2-5.4) L 10/23/18 04:32 Kidder # 1.0 K/mm3 (0.0-0.8) H 10/23/18 04:32 Eos # 0.0 K/mm3 (0.0-0.4) 10/23/18 04:32 Baso # 0.0 K/mm3 (0.0-0.1) 10/23/18 04:32 Add Manual Diff Complete 10/30/18 05:00 Total Counted 100 10/30/18 05:00 Seg Neutrophils % 74.9 % (40.0-70.0) H 10/23/18 04:32 Seg Neuts % (Manual) 97.0 % (40.0-70.0) H 10/30/18 05:00 0 % 10/30/18 05:00 3.0 % (13.4-35.0) L 10/30/18 05:00 Reactive Lymphs % (Man) 0 % 10/30/18 05:00 0 % (0.0-7.3) 10/30/18 05:00 0 % (0.0-4.3) 10/30/18 05:00 0 % (0.0-1.8) 10/30/18 05:00 0 % 10/30/18 05:00 0 % 10/30/18 05:00 0 % 10/30/18 05:00 0 % 10/30/18 05:00 Nucleated RBC % Not Reportable 10/30/18 05:00 Seg Neutrophils # 5.2 K/mm3 (1.8-7.7) 10/23/18 04:32 Seg Neutrophils # Man 20.8 K/mm3 (1.8-7.7) H 10/30/18 05:00 Band Neutrophils # 0.0 K/mm3 10/30/18 05:00 0.6 K/mm3 (1.2-5.4) L 10/30/18 05:00 Abs React Lymphs (Man) 0.0 K/mm3 10/30/18 05:00 0.0 K/mm3 (0.0-0.8) 10/30/18 05:00 0.0 K/mm3 (0.0-0.4) 10/30/18 05:00 0.0 K/mm3 (0.0-0.1) 10/30/18 05:00 0.0 K/mm3 10/30/18 05:00 0.0 K/mm3 10/30/18 05:00 0.0 K/mm3 10/30/18 05:00 Blast Cells # 0.0 K/mm3 10/30/18 05:00 WBC Morphology Not Reportable 10/30/18 05:00 Hypersegmented Neuts Not Reportable 10/30/18 05:00 Hyposegmented Neuts Not Reportable 10/30/18 05:00 Hypogranular Neuts Not Reportable 10/30/18 05:00 Not Reportable 10/30/18 05:00 1+ 10/30/18 05:00 Not Reportable 10/30/18 05:00 Not Reportable 10/30/18 05:00 Not Reportable 10/30/18 05:00 Not Reportable 10/30/18 05:00 Consistent w auto 10/30/18 05:00 Not Reportable 10/30/18 05:00 Plt Clumps, EDTA Not Reportable 10/30/18 05:00 Not Reportable 10/30/18 05:00 Not Reportable 10/30/18 05:00 Not Reportable 10/30/18 05:00 Plt Morphology Comment Not Reportable 10/30/18 05:00 RBC Morphology Normal 10/30/18 05:00 Dimorphic RBCs Not Reportable 10/30/18 05:00 Not Reportable 10/30/18 05:00 Not Reportable 10/30/18 05:00 Not Reportable 10/30/18 05:00 Not Reportable 10/30/18 05:00 Not Reportable 10/30/18 05:00 Not Reportable 10/30/18 05:00 Not Reportable 10/30/18 05:00 Not Reportable 10/30/18 05:00 Not Reportable 10/30/18 05:00 Not Reportable 10/30/18 05:00 Not Reportable 10/30/18 05:00 Not Reportable 10/30/18 05:00 Not Reportable 10/30/18 05:00 Not Reportable 10/30/18 05:00 Not Reportable 10/30/18 05:00 Not Reportable 10/30/18 05:00 Not Reportable 10/30/18 05:00 Not Reportable 10/30/18 05:00 Not Reportable 10/30/18 05:00 Acanthocytes (Spur) Not Reportable 10/30/18 05:00 Rouleaux Not Reportable 10/30/18 05:00 Not Reportable 10/30/18 05:00 Not Reportable 10/30/18 05:00 Not Reportable 10/30/18 05:00 Not Reportable 10/30/18 05:00 Hem Pathologist Commnt No 10/30/18 05:00 POC ABG pH 7.238 (7.35-7.45) L 10/31/18 04:39 POC ABG pCO2 39.9 (35-45) 10/31/18 04:39 POC ABG pO2 82 (80-105) 10/31/18 04:39 POC ABG HCO3 17.0 (22-26 mml/L) 10/31/18 04:39 POC ABG Total CO2 18 (23-27mmol/L) 10/31/18 04:39 POC ABG O2 Sat 94 10/31/18 04:39 POC ABG Base Excess -10 ((-2) - (+3)mmol/L) 10/31/18 04:39 40 % 10/31/18 04:39 Sodium 143 mmol/L (137-145) 10/31/18 07:05 Potassium 4.3 mmol/L (3.6-5.0) D 10/31/18 07:05 Chloride 115.8 mmol/L (98-107) H 10/31/18 07:05 Carbon Dioxide 18 mmol/L (22-30) L 10/31/18 07:05 14 mmol/L 10/31/18 07:05 BUN 39 mg/dL (7-17) H 10/31/18 07:05 1.3 mg/dL (0.7-1.2) H 10/31/18 07:05 Estimated GFR 40 ml/min 10/31/18 07:05 30 % 10/31/18 07:05 Glucose 167 mg/dL (65-100) H 10/31/18 07:05 POC Glucose 145 (70-105) H 10/31/18 05:14 Lactic Acid 1.60 mmol/L (0.7-2.0) 10/26/18 15:03 Calcium 7.5 mg/dL (8.4-10.2) L 10/31/18 07:05 Phosphorus 1.80 mg/dL (2.5-4.5) L 10/31/18 07:05 Magnesium 1.90 mg/dL (1.7-2.3) 10/31/18 07:05 0.40 mg/dL (0.1-1.2) 10/22/18 15:54 AST 25 units/L (5-40) 10/22/18 15:54 ALT 22 units/L (7-56) 10/22/18 15:54 129 units/L (35-129) 10/22/18 15:54 7.6 g/dL (6.3-8.2) 10/22/18 15:54 3.4 g/dL (3.9-5) L 10/22/18 15:54 0.8 % 10/22/18 15:54 10 units/L (13-60) L 10/22/18 15:54 Dulce (Yellow) 10/22/18 19:10 Clear (Clear) 10/22/18 19:10 5.0 (5.0-7.0) 10/22/18 19:10 Ur Specific [place] 1.018 (1.003-1.030) 10/22/18 19:10 30 mg/dl mg/dL (Negative) 10/22/18 19:10 Neg mg/dL (Negative) 10/22/18 19:10 Tr mg/dL (Negative) 10/22/18 19:10 Neg (Negative) 10/22/18 19:10 Neg (Negative) 10/22/18 19:10 Neg (Negative) 10/22/18 19:10 < 2.0 mg/dL (<2.0) 10/22/18 19:10 Ur Leukocyte Esterase Neg (Negative) 10/22/18 19:10 1.0 /HPF (0.0-6.0) 10/22/18 19:10 3.0 /HPF (0.0-6.0) 10/22/18 19:10 Active Medications - Current Medications Current Medications: Generic Name Dose Route Start Last Admin Trade Name Freq PRN Reason Stop Dose Admin Acetaminophen 650 mg 10/22/18 20:10 Tylenol PO Q4H PRN Pain MILD(1-3)/Fever >100.5/PORTER Albuterol 2.5 mg 10/22/18 20:14 10/28/18 06:34 Proventil IH 2.5 mg Q4HRT PRN Administration Shortness Of Breath Albuterol/Ipratropium 1 ampul 10/28/18 12:00 10/31/18 09:31 Duoneb *Not For Prn Use* IH 1 ampul Q4HRT RICK Administration Budesonide 0.5 mg 10/23/18 08:00 10/31/18 09:32 Pulmicort IH 0.5 mg Q12HRT RICK Administration Dextrose 50 ml 10/26/18 23:40 10/27/18 00:20 D50w (25gm) Syringe IV 50 ml PRN PRN Administration Hypoglycemia Hydralazine HCl 10 mg 10/22/18 21:41 Apresoline IV Q4HR PRN Blood Pressure Fentanyl Citrate 2,000 mcg in 100 mls @ 1.2 mls/hr 10/29/18 11:00 10/31/18 03:17 Fentanyl Drip Premix IV 1 mcg/kg/hr TITR RICK 2.4 mls/hr Titration Protocol 0.5 MCG/KG/HR Metronidazole 500 mg in 100 mls @ 100 mls/hr 10/30/18 14:00 10/31/18 07:04 Flagyl 500 Mg/100 Ml IV 100 mls/hr Q8HR RICK Administration Protocol Fluconazole 200 mls @ 100 mls/hr 10/30/18 16:00 10/30/18 17:46 Diflucan IV 100 mls/hr Q24HR RICK Administration Protocol Amino Acids 2,400 mls @ 100 mls/hr 10/30/18 20:00 10/30/18 20:50 Clinimix 4.25%-5% Solution IV 100 mls/hr Q24H RICK Administration Cefepime HCl 2 gm in 100 mls @ 200 mls/hr 10/31/18 10:00 Maxipime/Ns 2 Gm/100 Ml IV Q12HR RICK Protocol Insulin Human Lispro 0 unit 10/29/18 12:00 10/31/18 08:45 Humalog SUB-Q Not Given Q6HR [facility] Protocol Lorazepam 0.5 mg 10/26/18 22:44 10/26/18 23:14 Ativan IV 0.5 mg Q4H PRN Administration Anxiety Metoprolol Tartrate 5 mg 10/27/18 16:05 10/31/18 04:35 Lopressor IV 5 mg Q6H RICK Administration Morphine Sulfate 2 mg 10/24/18 13:39 10/29/18 05:46 Morphine IV 2 mg Q4H PRN Administration Pain, Moderate (4-6) Ondansetron HCl 4 mg 10/24/18 10:05 10/25/18 17:26 Zofran IV 4 mg Q6H PRN Administration Nausea And Vomiting Pantoprazole Sodium 40 mg 10/30/18 22:00 10/30/18 22:05 Protonix IV 40 mg BID RICK Administration Phenol 1 spray 10/28/18 10:16 Chloraseptic MM PRN PRN Sore Throat Promethazine HCl 25 mg 10/22/18 20:10 10/22/18 21:21 Phenergan ND 25 mg Q6H PRN Administration Nausea And Vomiting Sodium Chloride 10 ml 10/22/18 22:00 10/30/18 13:21 Sodium Chloride Flush Syringe 10 Ml IV 10 ml BID RICK Administration Sodium Chloride 10 ml 10/22/18 20:10 10/24/18 18:32 Sodium Chloride Flush Syringe 10 Ml IV 10 ml PRN PRN Administration LINE FLUSH Nutrition/Malnutrition Assess - Dietary Evaluation Nutrition/Malnutrition Findings: Nutrition Notes Start: 10/23/18 17:03 Freq: Status: Active Protocol: Document 10/31/18 09:29 LP (Rec: 10/31/18 09:37 LP [id number]) Nutrition Notes Initial or Follow up Reassessment Current Diagnosis Acute Kidney Injury,COPD, Sepsis,Hypertension Other Pertinent Diagnosis partial SBO, lupus, opiod dependence, SIRS Current Diet Clinimix at 75ml/hr Labs/Tests Phos 1.8 Pertinent Medications Reviewed Height 5 ft 3 in Weight 68 kg [place] Body Weight (kg) 52.27 BMI 26.5 Weight change and time frame Will use pt previous wt Subjective/Other Information T.O read back and verified MD Díaz to write and manage TPN . Pt has PICC placed. Percent of energy/protein needs met: 48%/100% Burn Absent Trauma Absent #1 Nutrition Diagnosis Inadequate oral intake Diagnosis Progress(for reassessment Continues documentation) Is patient on ventilator? Yes Is Patient Ambulatory and/or Out of Bed No REE-([facility]-confined to bed) 1397.052 Kcal/Kg value to use for calculation 25 Approximate Energy Requirements Using 1700 kcal/Kg Calculation Used for Recommendations Kcal/kg Additional Notes Protein needs are 58-96g (1.2- 2g/kg) Fluid needs are 1ml/kcal Nutrition Intervention Change Diet Order: PPN Nutrition Support: PPN at 100ml/hr: 4.25% amino acid, 5% dextrose, 48mEq Na, 24mEq K, 5mEq Mg, 10mEq Ca, 24mmol phos, Chloride: Acetate 25:75, MVI, Thiamine Osmolarity: 739 Kcal 808 Protein (gm) 100 Carbohydrates (gm) 120 Fat (gm) 0 Fluid (mL) 2,400 Fiber (gm) 0 Goal #1 Meet kcal and protein needs as best as possible Anticipated Discharge Needs: Unable to determine at this time Follow-Up By: 11/01/18 Additional Comments Labs in AM: BMP, Mg, Phos, TG
[2018-10-31] MEDS: PROTONIX IV SCH (10:56)
[2018-10-31] MEDS: SODIUM CHLORIDE FLUSH SYRINGE 10 ML IV SCH (10:56)
[2018-10-31] MEDS: DIFLUCAN 200 ML IV SCH (10:56)
--- NOTE | 2018-10-31 11:40 | Progress Note ---
Assessment and Plan 73 yo F with 1. pSBO - resolved 2. contained gastric perforation 3. VDRF 4. aspiration PNA 5. sepsis Obstruction series 10/27 - improved small bowel and stomach dilatation. Obstructions series 10/28 - no significant change since previous study. NGT has been removed Obstruction series 10/29 - relatively normal bowel gas pattern. NGT in place Ct scan A/P from admission reviewed with Dr. Garces - [place]. Mesenteric vessels patent. Ct scan C/A/P 10/30 - Images reviewed with Dr. Garces - pSBO resolved, no evidence for bowel ischemia. Small contained gastric perforation at lesser curve. No gross free air or contrast extrav. Ansarca. Bilateral pleural effusions. Bilateral upper lobes infiltrates. Plan: 1. NPO 2. continue NGT to Low continuous WS - NOTHING PER NGT 3. strict I/Os 4. gentle IVF 5. prn pain control 6. DVT ppx 7. vent management per ICU 8. c/w abx per ID 9. PPI BID 10. cards c/s pending Plan discussed with patient and at bedside. Thank you, please call with questions Subjective Date of service: 10/31/18 Narrative: Pt seen and examined. No acute complaints. No f/c. Denies abdominal pain. Has intermittent episodes of severe bradycardia and tachycardia. Objective Vital Signs - 12hr 10/30/18 10/30/18 10/31/18 23:47 23:54 00:00 Temperature 97.8 F Pulse Rate 99 H Pulse Rate [ Anterior Bilateral] Pulse Rate [ 95 H From Monitor] Respiratory 26 H 28 H Rate Respiratory Rate [Anterior Bilateral] Blood Pressure 117/65 O2 Sat by Pulse 95 95 Oximetry 10/31/18 10/31/18 10/31/18 00:01 00:07 00:20 Temperature Pulse Rate 97 H 96 H 93 H Pulse Rate [ 92 H Anterior Bilateral] Pulse Rate [ From Monitor] Respiratory 25 H 24 Rate Respiratory 24 Rate [Anterior Bilateral] Blood Pressure 123/63 123/63 115/51 O2 Sat by Pulse 94 Oximetry 10/31/18 10/31/18 10/31/18 00:31 00:43 00:51 Temperature Pulse Rate 104 H 119 H Pulse Rate [ 68 Anterior Bilateral] Pulse Rate [ From Monitor] Respiratory 24 Rate Respiratory 22 Rate [Anterior Bilateral] Blood Pressure 115/51 115/51 O2 Sat by Pulse 94 Oximetry 10/31/18 10/31/18 10/31/18 01:01 01:31 01:55 Temperature Pulse Rate 91 H 102 H Pulse Rate [ Anterior Bilateral] Pulse Rate [ From Monitor] Respiratory 28 H 26 H Rate Respiratory Rate [Anterior Bilateral] Blood Pressure 133/80 151/104 O2 Sat by Pulse 95 98 90 Oximetry 10/31/18 10/31/18 10/31/18 02:01 02:31 03:01 Temperature Pulse Rate 104 H 90 106 H Pulse Rate [ Anterior Bilateral] Pulse Rate [ From Monitor] Respiratory 28 H 24 19 Rate Respiratory Rate [Anterior Bilateral] Blood Pressure 151/104 111/47 111/47 O2 Sat by Pulse 96 95 Oximetry 10/31/18 10/31/18 10/31/18 03:21 03:30 04:00 Temperature 98.7 F Pulse Rate 114 H Pulse Rate [ Anterior Bilateral] Pulse Rate [ 102 H From Monitor] Respiratory 28 H 16 Rate Respiratory Rate [Anterior Bilateral] Blood Pressure 142/90 O2 Sat by Pulse 94 95 Oximetry 10/31/18 10/31/18 10/31/18 04:01 04:31 04:35 Temperature Pulse Rate 110 H 102 H 93 H Pulse Rate [ Anterior Bilateral] Pulse Rate [ From Monitor] Respiratory 27 H 25 H Rate Respiratory Rate [Anterior Bilateral] Blood Pressure 142/80 134/62 134/62 O2 Sat by Pulse 96 96 Oximetry 10/31/18 10/31/18 10/31/18 04:41 04:50 05:01 Temperature Pulse Rate 92 H 84 Pulse Rate [ 107 H Anterior Bilateral] Pulse Rate [ From Monitor] Respiratory 24 Rate Respiratory 26 H Rate [Anterior Bilateral] Blood Pressure 134/92 115/37 O2 Sat by Pulse 95 99 Oximetry 10/31/18 10/31/18 10/31/18 05:31 06:01 06:30 Temperature Pulse Rate 81 88 93 H Pulse Rate [ Anterior Bilateral] Pulse Rate [ From Monitor] Respiratory 24 24 24 Rate Respiratory Rate [Anterior Bilateral] Blood Pressure 106/43 115/50 115/50 O2 Sat by Pulse 97 96 95 Oximetry 10/31/18 10/31/18 10/31/18 07:00 07:31 08:00 Temperature 96.2 F L Pulse Rate 102 H 96 H Pulse Rate [ Anterior Bilateral] Pulse Rate [ 92 H From Monitor] Respiratory 24 25 H 24 Rate Respiratory Rate [Anterior Bilateral] Blood Pressure 130/55 130/55 O2 Sat by Pulse 96 97 97 Oximetry 10/31/18 10/31/18 10/31/18 08:01 08:30 09:01 Temperature Pulse Rate 87 89 86 Pulse Rate [ Anterior Bilateral] Pulse Rate [ From Monitor] Respiratory 24 24 24 Rate Respiratory Rate [Anterior Bilateral] Blood Pressure 117/48 119/41 O2 Sat by Pulse 97 98 Oximetry 10/31/18 10/31/18 10/31/18 09:24 09:31 10:00 Temperature Pulse Rate 86 106 H 104 H Pulse Rate [ Anterior Bilateral] Pulse Rate [ From Monitor] Respiratory 26 H 20 Rate Respiratory Rate [Anterior Bilateral] Blood Pressure 119/41 119/41 119/61 O2 Sat by Pulse 97 98 Oximetry 10/31/18 10/31/18 10/31/18 10:31 10:58 11:00 Temperature Pulse Rate 104 H 104 H 103 H Pulse Rate [ Anterior Bilateral] Pulse Rate [ From Monitor] Respiratory 25 H 23 Rate Respiratory Rate [Anterior Bilateral] Blood Pressure 119/61 103/55 109/54 O2 Sat by Pulse 96 98 Oximetry - General physical appearance Narrative Exam: Gen: Awake on vent. anxious ENT; ETT in place. NGT with thick green drainage CV: S1, S2+ Resp: on vent Abd: soft, NT, ND Ext: no c/c/e - Labs 10/30/18 05:00 10/31/18 07:05 Diabetes panel 10/31/18 Range/Units 07:05 Sodium 143 (137-145) mmol/L Potassium 4.3 D (3.6-5.0) mmol/L Chloride 115.8 H (98-107) mmol/L Carbon Dioxide 18 L (22-30) mmol/L BUN 39 H (7-17) mg/dL Creatinine 1.3 H (0.7-1.2) mg/dL Glucose 167 H (65-100) mg/dL Calcium 7.5 L (8.4-10.2) mg/dL Calcium panel 10/31/18 Range/Units 07:05 Calcium 7.5 L (8.4-10.2) mg/dL Phosphorus 1.80 L (2.5-4.5) mg/dL Pituitary panel 10/31/18 Range/Units 07:05 Sodium 143 (137-145) mmol/L Potassium 4.3 D (3.6-5.0) mmol/L Chloride 115.8 H (98-107) mmol/L Carbon Dioxide 18 L (22-30) mmol/L BUN 39 H (7-17) mg/dL Creatinine 1.3 H (0.7-1.2) mg/dL Glucose 167 H (65-100) mg/dL Calcium 7.5 L (8.4-10.2) mg/dL Adrenal panel 10/31/18 Range/Units 07:05 Sodium 143 (137-145) mmol/L Potassium 4.3 D (3.6-5.0) mmol/L Chloride 115.8 H (98-107) mmol/L Carbon Dioxide 18 L (22-30) mmol/L BUN 39 H (7-17) mg/dL Creatinine 1.3 H (0.7-1.2) mg/dL Glucose 167 H (65-100) mg/dL Calcium 7.5 L (8.4-10.2) mg/dL
--- NOTE | 2018-10-31 13:35 | Consultation ---
History of Present Illness Consult date: 10/31/18 Requesting physician: MOSHE ROSA Consult reason: bradycardia, tachycardia History of present illness: Pt is 73YO female with past medical history of HTN, COPD, lupus, fibromyalgia, opiod dependence. She is intubated on evaluation and thus HPI is obtained per the chart. She presented to ED on 10/22/2018 with c/o of nausea, vomiting, diarrhea 3 days prior to arrival. Abdomen CT showed ileus v. partial SBO. Tyrell mcwilliams subsequently developed respiratory failure and was intubated 10/26/18, extubated and then back on BiPAP, decompensated on the night of 10/28/18 and reintubated, pt with presumed aspiration PNA. Repeat abdomen CT done 10/30 showed pSBO resolved, no evidence for bowel ischemia, small contained gastric perforation which is being conservatively managed per general surgery at this time. Pt was noted to have episodes of both tachycardia and bradycardia and thus cardiology has been consulted. Review of telemetry shows mostly sinus tachycardia with PACs with some sinus bradycardia and bouts of paroxysmal AFlutter with both RVR and less frequently SVR (HR 30s). BPs appear stable. Pt is in SR/ST on evaluation. Past History Past Medical History: COPD, hypertension, other (Lupus, fibromyalgia, history of opioid dependence) Past Surgical History: cholecystectomy, hysterectomy, total hip replacement (left hip fracture 2016, irritated hardware repair 10/2017, colon surgery, renal surgery), bowel surgery (exlap, subtotal colectomy) Social history: (lives with ), smoking (former smoker) Family history: no significant family history Medications and Allergies Allergies Allergy/AdvReac Type Severity Reaction Status Date / Time Sulfa (Sulfonamide Allergy Intermediate Rash Verified 10/22/18 16:30 Antibiotics) metoclopramide HCl Allergy Dizziness Verified 10/22/18 16:30 [From Reglan] prochlorperazine Allergy NECK Verified 10/22/18 16:30 [From Compazine] STIFFNESS Home Medications Medication Instructions Recorded Confirmed Last Taken Type Ondansetron 4 mg PO Q6HR PRN 12/05/16 10/22/18 10/29/17 History Propranolol HCl [Propranolol HCl 60 mg PO DAILY 12/05/16 10/22/18 10/30/17 22:00 History ER] QUEtiapine [SEROquel] 300 mg PO DAILY 12/05/16 10/22/18 10/30/17 History Lasix TAB 40 mg PO PRN PRN 12/07/16 10/22/18 10/24/17 History Percocet 10/325 mg 1 tab PO PRN PRN 12/07/16 10/22/18 10/30/17 History Albuterol Sulfate [Albuterol 0.63% 0.63 mg IH TID PRN 10/22/17 10/22/18 10/29/17 History NEBS] Active Meds: Active Medications Acetaminophen (Tylenol) 650 mg PO Q4H PRN PRN Reason: Pain MILD(1-3)/Fever >100.5/PORTER Albuterol (Proventil) 2.5 mg IH Q4HRT PRN PRN Reason: Shortness Of Breath Last Admin: 10/28/18 06:34 Dose: 2.5 mg Documented by: Albuterol/Ipratropium (Duoneb *Not For Prn Use*) 1 ampul IH Q4HRT RICK Last Admin: 10/31/18 09:31 Dose: 1 ampul Documented by: Budesonide (Pulmicort) 0.5 mg IH Q12HRT RICK Last Admin: 10/31/18 09:32 Dose: 0.5 mg Documented by: Dextrose (D50w (25gm) Syringe) 50 ml IV PRN PRN PRN Reason: Hypoglycemia Last Admin: 10/27/18 00:20 Dose: 50 ml Documented by: Hydralazine HCl (Apresoline) 10 mg IV Q4HR PRN PRN Reason: Blood Pressure Fentanyl Citrate (Fentanyl Drip Premix) 2,000 mcg in 100 mls @ 1.2 mls/hr IV TITR RICK; Protocol Last Titration: 10/31/18 03:17 Dose: 1 mcg/kg/hr, 2.4 mls/hr Documented by: Metronidazole (Flagyl 500 Mg/100 Ml) 500 mg in 100 mls @ 100 mls/hr IV Q8HR RICK; Protocol Last Admin: 10/31/18 07:04 Dose: 100 mls/hr Documented by: Fluconazole (Diflucan) 200 mls @ 100 mls/hr IV Q24HR RICK; Protocol Last Admin: 10/31/18 10:56 Dose: 100 mls/hr Documented by: Amino Acids (Clinimix 4.25%-5% Solution) 2,400 mls @ 100 mls/hr IV Q24H [facility] Stop: 10/31/18 19:59 Last Admin: 10/30/18 20:50 Dose: 100 mls/hr Documented by: Cefepime HCl (Maxipime/Ns 2 Gm/100 Ml) 2 gm in 100 mls @ 200 mls/hr IV Q12HR [facility]; Protocol Last Admin: 10/31/18 10:56 Dose: 200 mls/hr Documented by: Amino Acids/Electrolytes/Dextrose (Tpn Adult) 2,400 mls @ 100 mls/hr IV DAILY@1999 [facility]; Protocol Stop: 11/01/18 19:59 Insulin Human Lispro (Humalog) 0 unit SUB-Q Q6HR [facility]; Protocol Last Admin: 10/31/18 12:47 Dose: 2 unit Documented by: Lorazepam (Ativan) 0.5 mg IV Q4H PRN PRN Reason: Anxiety Last Admin: 10/26/18 23:14 Dose: 0.5 mg Documented by: Metoprolol Tartrate (Lopressor) 5 mg IV Q6H [facility] Last Admin: 10/31/18 10:58 Dose: 5 mg Documented by: Morphine Sulfate (Morphine) 2 mg IV Q4H PRN PRN Reason: Pain, Moderate (4-6) Last Admin: 10/29/18 05:46 Dose: 2 mg Documented by: Ondansetron HCl (Zofran) 4 mg IV Q6H PRN PRN Reason: Nausea And Vomiting Last Admin: 10/25/18 17:26 Dose: 4 mg Documented by: Pantoprazole Sodium (Protonix) 40 mg IV BID [facility] Last Admin: 10/31/18 10:56 Dose: 40 mg Documented by: Phenol (Chloraseptic) 1 spray MM PRN PRN PRN Reason: Sore Throat Promethazine HCl (Phenergan) 25 mg VA Q6H PRN PRN Reason: Nausea And Vomiting Last Admin: 10/22/18 21:21 Dose: 25 mg Documented by: Sodium Chloride (Sodium Chloride Flush Syringe 10 Ml) 10 ml IV BID [facility] Last Admin: 10/31/18 10:56 Dose: 10 ml Documented by: Sodium Chloride (Sodium Chloride Flush Syringe 10 Ml) 10 ml IV PRN PRN PRN Reason: LINE FLUSH Last Admin: 10/24/18 18:32 Dose: 10 ml Documented by: Review of Systems ROS unobtainable: due to endotracheal tube, due to mental status Physical Examination Vital Signs Pulse Ox 95 10/22/18 15:21 General appearance: other (intubated, opens eyes to commands) HEENT: Positive: PERRL Neck: Positive: neck supple, trachea midline Cardiac: Positive: Regular Rhythm, S1/S2, Tachycardia Lungs: Positive: Decreased Breath Sounds, Oxygen, Ventilated Respirations Neuro: Positive: Other (intubated, opens eyes to commands) Skin: Negative: Rash Musculoskeletal: No Pain Extremities: Absent: edema Results 10/30/18 05:00 10/31/18 07:05 Comprehensive Metabolic Panel 10/31/18 Range/Units 07:05 Sodium 143 (137-145) mmol/L Potassium 4.3 D (3.6-5.0) mmol/L Chloride 115.8 H (98-107) mmol/L Carbon Dioxide 18 L (22-30) mmol/L BUN 39 H (7-17) mg/dL Creatinine 1.3 H (0.7-1.2) mg/dL Glucose 167 H (65-100) mg/dL Calcium 7.5 L (8.4-10.2) mg/dL - Imaging and Cardiology Echo: pending EKG: report reviewed, image reviewed EKG interpretations - Telemetry EKG Rhythm: Sinus Tachycardia - EKG Sinus rhythms and dysrhythmias: sinus rhythm Assessment and Plan Pt was noted to have episodes of both tachycardia and bradycardia. Review of telemetry shows mostly sinus tachycardia with PACs with some sinus bradycardia and bouts of paroxysmal AFlutter with both RVR and less frequently SVR (HR 30s). BPs appear stable. Pt is in SR/ST on evaluation. Pt has been receiving IV lopressor 5mg Q6H for BP and HR optimization. She is strict NPO and is receiving TPN in setting of perforated gastric ulcer. On evaluation, she has NGT to suction with dark brown drainage - ? coffee ground. H/H appears stable. Will decrease IV lopressor to TID dosing and continue supportive measures. No systemic AC at this time in setting of gastric perforation and ? coffee ground emesis. Obtain echo and thyroid profile. Replete K+. The patient has been seen in conjunction with Dr. Calvert who agrees with the assessment and plan of care. - Patient Problems (1) Paroxysmal atrial flutter Current Visit: Yes Status: Acute (2) Tachy-adama syndrome Current Visit: Yes Status: Acute (3) Acute respiratory failure Current Visit: Yes Status: Acute (4) Perforated gastric ulcer Current Visit: Yes Status: Acute (5) Intractable nausea and vomiting Current Visit: Yes Status: Acute (6) Partial small bowel obstruction Current Visit: Yes Status: Acute (7) COPD (chronic obstructive pulmonary disease) Current Visit: Yes Status: Chronic (8) History of hypertension Current Visit: Yes Status: Chronic (9) ADWOA (acute kidney injury) Current Visit: Yes Status: Acute (10) Hypokalemia Current Visit: Yes Status: Acute
--- NOTE | 2018-10-31 13:59 | Progress Note ---
Assessment and Plan - Patient Problems (1) Hypernatremia Current Visit: Yes Status: Acute Plan to address problem: improved on D5 1/2Ns, now started on PPN (2) Acute renal failure Current Visit: Yes Status: Acute Plan to address problem: Prerenal azotemia secondary to volume depletion, now stabilizing, pt remains non-oliguric. cont PPN with gently IV hydration. Follow-up electrolytes and renal function. (3) Hypokalemia Current Visit: Yes Status: Acute Plan to address problem: K replete. but low PO4 noted, ordered IV Kphos. Follow potassium/PO4 level (4) Abdominal distention, non-gaseous Current Visit: Yes Status: Acute Plan to address problem: Repeat abdomen CT done 10/30 showed pSBO resolved, no evidence for bowel ischemia, small contained gastric perforation, being conservatively managed per general surgery (5) Acute respiratory failure with hypoxia Current Visit: Yes Status: Acute Plan to address problem: Continue management by pulmonary (6) Intractable nausea and vomiting Current Visit: Yes Status: Acute Plan to address problem: Improved (7) Hypotension Current Visit: Yes Status: Acute Plan to address problem: BP stable off vasopressors Subjective Date of service: 10/31/18 Principal diagnosis: colitis, N/V/D Interval history: Pt is on awake, alert, on vent, remains on NGT, reports passing gas/BMs Objective - Vital Signs Vital signs: Vital Signs - 12hr 10/31/18 10/31/18 10/31/18 02:01 02:31 03:01 Temperature Pulse Rate 104 H 90 106 H Pulse Rate [ Anterior Bilateral] Pulse Rate [ From Monitor] Respiratory 28 H 24 19 Rate Respiratory Rate [Anterior Bilateral] Blood Pressure 151/104 111/47 111/47 O2 Sat by Pulse 96 95 Oximetry 10/31/18 10/31/18 10/31/18 03:21 03:30 04:00 Temperature 98.7 F Pulse Rate 114 H Pulse Rate [ Anterior Bilateral] Pulse Rate [ 102 H From Monitor] Respiratory 28 H 16 Rate Respiratory Rate [Anterior Bilateral] Blood Pressure 142/90 O2 Sat by Pulse 94 95 Oximetry 10/31/18 10/31/18 10/31/18 04:01 04:31 04:35 Temperature Pulse Rate 110 H 102 H 93 H Pulse Rate [ Anterior Bilateral] Pulse Rate [ From Monitor] Respiratory 27 H 25 H Rate Respiratory Rate [Anterior Bilateral] Blood Pressure 142/80 134/62 134/62 O2 Sat by Pulse 96 96 Oximetry 10/31/18 10/31/18 10/31/18 04:41 04:50 05:01 Temperature Pulse Rate 92 H 84 Pulse Rate [ 107 H Anterior Bilateral] Pulse Rate [ From Monitor] Respiratory 24 Rate Respiratory 26 H Rate [Anterior Bilateral] Blood Pressure 134/92 115/37 O2 Sat by Pulse 95 99 Oximetry 10/31/18 10/31/18 10/31/18 05:31 06:01 06:30 Temperature Pulse Rate 81 88 93 H Pulse Rate [ Anterior Bilateral] Pulse Rate [ From Monitor] Respiratory 24 24 24 Rate Respiratory Rate [Anterior Bilateral] Blood Pressure 106/43 115/50 115/50 O2 Sat by Pulse 97 96 95 Oximetry 10/31/18 10/31/18 10/31/18 07:00 07:31 08:00 Temperature 96.2 F L Pulse Rate 102 H 96 H Pulse Rate [ Anterior Bilateral] Pulse Rate [ 92 H From Monitor] Respiratory 24 25 H 24 Rate Respiratory Rate [Anterior Bilateral] Blood Pressure 130/55 130/55 O2 Sat by Pulse 96 97 97 Oximetry 10/31/18 10/31/18 10/31/18 08:01 08:30 09:01 Temperature Pulse Rate 87 89 86 Pulse Rate [ Anterior Bilateral] Pulse Rate [ From Monitor] Respiratory 24 24 24 Rate Respiratory Rate [Anterior Bilateral] Blood Pressure 117/48 119/41 O2 Sat by Pulse 97 98 Oximetry 10/31/18 10/31/18 10/31/18 09:24 09:31 10:00 Temperature Pulse Rate 86 106 H 104 H Pulse Rate [ Anterior Bilateral] Pulse Rate [ From Monitor] Respiratory 26 H 20 Rate Respiratory Rate [Anterior Bilateral] Blood Pressure 119/41 119/41 119/61 O2 Sat by Pulse 97 98 Oximetry 10/31/18 10/31/18 10/31/18 10:31 10:58 11:00 Temperature Pulse Rate 104 H 104 H 103 H Pulse Rate [ Anterior Bilateral] Pulse Rate [ From Monitor] Respiratory 25 H 23 Rate Respiratory Rate [Anterior Bilateral] Blood Pressure 119/61 103/55 109/54 O2 Sat by Pulse 96 98 Oximetry - General Appearance General appearance: appears stated age, chronically ill, intubated EENT: ATNC, PERRL, mucous membranes moist Neck: no JVD Respiratory: Present: Decreased Breath Sounds Cardiology: regular, S1S2 Gastrointestinal: normoactive bowel sounds Integumentary: no rash Neurologic: no focal deficit, alert and oriented x3, strength 5/5, CN 3-12 intact Psychiatric: mood/affect appropriate, cooperative - Lab 10/30/18 05:00 10/31/18 07:05 Most recent lab results Calcium 7.5 mg/dL (8.4-10.2) L 10/31/18 07:05 Phosphorus 1.80 mg/dL (2.5-4.5) L 10/31/18 07:05 Magnesium 1.90 mg/dL (1.7-2.3) 10/31/18 07:05 Medications & Allergies - Medications Allergies/Adverse Reactions: Allergies Sulfa (Sulfonamide Antibiotics) Allergy (Intermediate, Verified 10/22/18 16:30) Rash metoclopramide HCl [From Reglan] Allergy (Verified 10/22/18 16:30) Dizziness prochlorperazine [From Compazine] Allergy (Verified 10/22/18 16:30) NECK STIFFNESS Home Medications: Home Medications Medication Instructions Recorded Confirmed Last Taken Type Ondansetron 4 mg PO Q6HR PRN 12/05/16 10/22/18 10/29/17 History Propranolol HCl [Propranolol HCl 60 mg PO DAILY 12/05/16 10/22/18 10/30/17 22:00 History ER] QUEtiapine [SEROquel] 300 mg PO DAILY 12/05/16 10/22/18 10/30/17 History Lasix TAB 40 mg PO PRN PRN 12/07/16 10/22/18 10/24/17 History Percocet 10/325 mg 1 tab PO PRN PRN 12/07/16 10/22/18 10/30/17 History Albuterol Sulfate [Albuterol 0.63% 0.63 mg IH TID PRN 10/22/17 10/22/18 10/29/17 History NEBS] Active Medications: Generic Name Dose Route Start Last Admin Trade Name Freq PRN Reason Stop Dose Admin Acetaminophen 650 mg 10/22/18 20:10 Tylenol PO Q4H PRN Pain MILD(1-3)/Fever >100.5/PORTER Albuterol 2.5 mg 10/22/18 20:14 10/28/18 06:34 Proventil IH 2.5 mg Q4HRT PRN Administration Shortness Of Breath Albuterol/Ipratropium 1 ampul 10/28/18 12:00 10/31/18 09:31 Duoneb *Not For Prn Use* IH 1 ampul Q4HRT RICK Administration Budesonide 0.5 mg 10/23/18 08:00 10/31/18 09:32 Pulmicort IH 0.5 mg Q12HRT RICK Administration Dextrose 50 ml 10/26/18 23:40 10/27/18 00:20 D50w (25gm) Syringe IV 50 ml PRN PRN Administration Hypoglycemia Hydralazine HCl 10 mg 10/22/18 21:41 Apresoline IV Q4HR PRN Blood Pressure Fentanyl Citrate 2,000 mcg in 100 mls @ 1.2 mls/hr 10/29/18 11:00 10/31/18 03:17 Fentanyl Drip Premix IV 1 mcg/kg/hr TITR RICK 2.4 mls/hr Titration Protocol 0.5 MCG/KG/HR Metronidazole 500 mg in 100 mls @ 100 mls/hr 10/30/18 14:00 10/31/18 13:38 Flagyl 500 Mg/100 Ml IV 100 mls/hr Q8HR RICK Administration Protocol Fluconazole 200 mls @ 100 mls/hr 10/30/18 16:00 10/31/18 10:56 Diflucan IV 100 mls/hr Q24HR RICK Administration Protocol Amino Acids 2,400 mls @ 100 mls/hr 10/30/18 20:00 10/30/18 20:50 Clinimix 4.25%-5% Solution IV 10/31/18 19:59 100 mls/hr Q24H RICK Administration Cefepime HCl 2 gm in 100 mls @ 200 mls/hr 10/31/18 10:00 10/31/18 10:56 Maxipime/Ns 2 Gm/100 Ml IV 200 mls/hr Q12HR RICK Administration Protocol Amino Acids/Electrolytes/Dextrose 2,400 mls @ 100 mls/hr 10/31/18 20:00 Tpn Adult IV 11/01/18 19:59 DAILY@2000 RICK Protocol Potassium Phosphate 30 mmol/ 510 mls @ 83 mls/hr 10/31/18 13:54 Sodium Chloride IV 10/31/18 20:02 ONCE ONE Insulin Human Lispro 0 unit 10/29/18 12:00 10/31/18 12:47 Humalog SUB-Q 2 unit Q6HR RICK Administration Protocol Lorazepam 0.5 mg 10/26/18 22:44 10/26/18 23:14 Ativan IV 0.5 mg Q4H PRN Administration Anxiety Metoprolol Tartrate 5 mg 10/27/18 16:05 10/31/18 10:58 Lopressor IV 5 mg Q6H RICK Administration Morphine Sulfate 2 mg 10/24/18 13:39 10/29/18 05:46 Morphine IV 2 mg Q4H PRN Administration Pain, Moderate (4-6) Ondansetron HCl 4 mg 10/24/18 10:05 10/25/18 17:26 Zofran IV 4 mg Q6H PRN Administration Nausea And Vomiting Pantoprazole Sodium 40 mg 10/30/18 22:00 10/31/18 10:56 Protonix IV 40 mg BID RICK Administration Phenol 1 spray 10/28/18 10:16 Chloraseptic MM PRN PRN Sore Throat Promethazine HCl 25 mg 10/22/18 20:10 10/22/18 21:21 Phenergan [place] 25 mg Q6H PRN Administration Nausea And Vomiting Sodium Chloride 10 ml 10/22/18 22:00 10/31/18 10:56 Sodium Chloride Flush Syringe 10 Ml IV 10 ml BID RICK Administration Sodium Chloride 10 ml 10/22/18 20:10 10/24/18 18:32 Sodium Chloride Flush Syringe 10 Ml IV 10 ml PRN PRN Administration LINE FLUSH
[2018-10-31] MEDS ORDERED: KPHOS 30 MMOL in NACL 0.9% 500 ML 500 ML IV ONE (15:00)
--- NOTE | 2018-10-31 16:52 | Progress Note ---
Assessment and Plan Cultures: Blood cultures 10/22/2018 no growth so far. Tracheal asp cultures 10/28/2018: E.coli and Stenotrophomonas. 10/30/2018 blood culture: in progress Assessment: 73 y/o female with history of COPD, hypertension, lupus, fibromyalgia, opioid dependence admitted on 10/22/2018 due to 3-day history of intractable nausea, vomiting, diarrhea: 1) SIRS v/s sepsis: Etiology most likely aspiration pneumonia +/- intra- abdominal source from contained gastric perforation 2) Presumed aspiration pneumonia v/s HAP: Tracheal asp cultures 10/28/2018 with E.coli and Stenotrophomonas. Stenotrophomonas is a known colonizer in patients with structural lung disease or tracheostomy tubes, not generally considered very virulent. 3) Acute respiratory failure: intubated, on the vent. 4) Ileus v/s partial SBO and contained gastric perforation: Gen Surgery following. Planned for conservative management. 5) ADWOA: renally dosed all antibiotics Recommendations: - switched to IV Ceftazidime 2 gm q8 hrs, continue Flagyl and Fluconazole - monitor leucocytosis Phong Joy MD [facility] C: [phone] O: [phone] F: [phone] Subjective Date of service: 10/31/18 Principal diagnosis: colitis, N/V/D Interval history: No fever. Remains on the vent. No distress. at bedside. Objective - Exam Narrative Exam: Physical Exam: Constitutional: awake, but intubated Head, Ears, Nose: Normocephalic, atraumatic. External ears, nose normal Eyes: Conjunctivae/corneas clear. No icterus. No ptosis. Neck: Supple, no meningeal signs Oral: intubated Cardiovascular: S1, S2 normal. Respiratory: Good air entry, clear to auscultation bilaterally but reduced in the bases GI: Soft, non-tender; bowel sounds hypoactive. No peritoneal signs Musculoskeletal: No pedal edema, no cyanosis. Skin: No rash or abscess Hem/Lymphatic: No palpable cervical or supraclavicular nodes. No lymphangitis Psych: no agitation Neurological: awake, intubated, on vent - Constitutional Vitals: Vital Signs Temp Pulse Resp BP Pulse Ox 96.2 F L 87 23 106/41 100 10/31/18 08:00 10/31/18 15:25 10/31/18 11:00 10/31/18 15:25 10/31/18 15:25 Temperature -Last 24 Hours Temperature 96.2 F Temperature 98.7 F Temperature 97.8 F Temperature 97.3 F - Labs CBC & Chem 7: 10/30/18 05:00 10/31/18 07:05 Labs: Abnormal lab results 10/30/18 10/31/18 10/31/18 Range/Units 18:25 00:22 04:39 POC ABG pH 7.238 L (7.35-7.45) POC ABG pCO2 (35-45) Chloride (98-107) mmol/L Carbon Dioxide (22-30) mmol/L BUN (7-17) mg/dL Creatinine (0.7-1.2) mg/dL Glucose (65-100) mg/dL POC Glucose 158 H 162 H (70-105) Calcium (8.4-10.2) mg/dL Phosphorus (2.5-4.5) mg/dL 10/31/18 10/31/18 10/31/18 Range/Units 05:14 07:05 10:43 POC ABG pH 7.304 L (7.35-7.45) POC ABG pCO2 33.3 L (35-45) Chloride 115.8 H (98-107) mmol/L Carbon Dioxide 18 L (22-30) mmol/L BUN 39 H (7-17) mg/dL Creatinine 1.3 H (0.7-1.2) mg/dL Glucose 167 H (65-100) mg/dL POC Glucose 145 H (70-105) Calcium 7.5 L (8.4-10.2) mg/dL Phosphorus 1.80 L (2.5-4.5) mg/dL 10/31/18 Range/Units 12:03 POC ABG pH (7.35-7.45) POC ABG pCO2 (35-45) Chloride (98-107) mmol/L Carbon Dioxide (22-30) mmol/L BUN (7-17) mg/dL Creatinine (0.7-1.2) mg/dL Glucose (65-100) mg/dL POC Glucose 159 H (70-105) Calcium (8.4-10.2) mg/dL Phosphorus (2.5-4.5) mg/dL
[2018-10-31] MEDS: LEVAQUIN 500MG/100ML 500 MG/100 ML BAG IV SCH (18:26)
[2018-10-31] MEDS ORDERED: TPN ADULT 2,400 ML IV SCH (20:00)
[2018-11-01] MEDS: PROTONIX IV SCH ×3 (00:34→22:10)
[2018-11-01] MEDS: FLAGYL 500 MG/100 ML 500 MG/100 ML BAG IV SCH ×4 (00:34→22:12)
[2018-11-01] MEDS: MAXIPIME/NS 2 GM/100 ML 2 GM/100 ML BAG IV SCH ×3 (00:34→22:11)
[2018-11-01] MEDS: SODIUM CHLORIDE FLUSH SYRINGE 10 ML IV SCH ×5 (00:35→22:11)
[2018-11-01] MEDS: HumaLOG SUB-Q SCH ×4 (00:39→17:49)
[2018-11-01] MEDS: DUONEB *Not for PRN Use IH SCH ×6 (05:28→23:05)
[2018-11-01 07:26] LABS: Hematocrit 34.9 % (30.3-42.9); Hemoglobin 11.6 gm/dl (10.1-14.3); Mean Corpuscular HGB Conc 33 % (30-34); Mean Corpuscular Volume 96 fl (79-97); Red Blood Count 3.63 M/mm3 (3.65-5.03)
[2018-11-01 07:35] LABS: Calcium 7.3 mg/dL (8.4-10.2)
[2018-11-01 07:42] LABS: Platelet Count 64 K/mm3 (140-440)
[2018-11-01] MEDS: PULMICORT IH SCH ×2 (08:00→19:48)
[2018-11-01] MEDS: LOPRESSOR IV SCH ×3 (08:00→20:31)
--- NOTE | 2018-11-01 08:28 | Progress Note ---
Assessment and Plan - Patient Problems (1) Hypernatremia Current Visit: Yes Status: Acute Plan to address problem: improved on D5 1/2Ns, now on PPN (2) Acute renal failure Current Visit: Yes Status: Acute Plan to address problem: Prerenal azotemia secondary to volume depletion, now stabilizing, pt remains non-oliguric. cont PPN. Follow-up electrolytes and renal function. (3) Hypokalemia Current Visit: Yes Status: Acute Plan to address problem: K Supplementation with KCl, pt also on PPN. Follow potassium/PO4 level (4) Abdominal distention, non-gaseous Current Visit: Yes Status: Acute Plan to address problem: Repeat abdomen CT done 10/30 showed pSBO resolved, no evidence for bowel ischemia, small contained gastric perforation, being conservatively managed per general surgery (5) Acute respiratory failure with hypoxia Current Visit: Yes Status: Acute Plan to address problem: Continue vent management by pulmonary (6) Hypotension Current Visit: Yes Status: Acute Plan to address problem: BP stable off vasopressors Subjective Date of service: 11/01/18 Principal diagnosis: colitis, N/V/D Interval history: Pt is on awake, alert, on vent, remains on NGT, reports passing gas/BMs Objective - Vital Signs Vital signs: Vital Signs - 12hr 10/31/18 10/31/18 10/31/18 20:31 21:01 21:30 Temperature Pulse Rate 94 H 94 H 96 H Pulse Rate [ Anterior Bilateral Throughout] Pulse Rate [ Anterior Bilateral] Respiratory 24 24 24 Rate Respiratory Rate [Anterior Bilateral Throughout] Respiratory Rate [Anterior Bilateral] Blood Pressure 98/47 93/34 96/43 O2 Sat by Pulse 100 Oximetry 10/31/18 10/31/18 10/31/18 22:00 22:30 23:01 Temperature Pulse Rate 90 90 92 H Pulse Rate [ Anterior Bilateral Throughout] Pulse Rate [ Anterior Bilateral] Respiratory 24 24 24 Rate Respiratory Rate [Anterior Bilateral Throughout] Respiratory Rate [Anterior Bilateral] Blood Pressure 93/45 98/35 107/50 O2 Sat by Pulse 100 99 99 Oximetry 10/31/18 10/31/18 10/31/18 23:24 23:31 23:34 Temperature Pulse Rate 90 89 100 H Pulse Rate [ Anterior Bilateral Throughout] Pulse Rate [ Anterior Bilateral] Respiratory 24 24 Rate Respiratory Rate [Anterior Bilateral Throughout] Respiratory Rate [Anterior Bilateral] Blood Pressure 107/50 98/54 98/54 O2 Sat by Pulse 99 100 100 Oximetry 11/01/18 11/01/18 11/01/18 00:00 00:01 00:30 Temperature 98.5 F Pulse Rate 92 H 93 H Pulse Rate [ Anterior Bilateral Throughout] Pulse Rate [ Anterior Bilateral] Respiratory 24 24 Rate Respiratory Rate [Anterior Bilateral Throughout] Respiratory Rate [Anterior Bilateral] Blood Pressure 93/46 95/46 O2 Sat by Pulse 100 100 Oximetry 11/01/18 11/01/18 11/01/18 01:00 01:30 02:00 Temperature Pulse Rate 105 H 96 H 101 H Pulse Rate [ Anterior Bilateral Throughout] Pulse Rate [ Anterior Bilateral] Respiratory 25 H 24 30 H Rate Respiratory Rate [Anterior Bilateral Throughout] Respiratory Rate [Anterior Bilateral] Blood Pressure 105/42 91/38 101/41 O2 Sat by Pulse 100 100 99 Oximetry 11/01/18 11/01/18 11/01/18 02:30 03:00 03:30 Temperature Pulse Rate 98 H 103 H 92 H Pulse Rate [ Anterior Bilateral Throughout] Pulse Rate [ Anterior Bilateral] Respiratory 24 21 24 Rate Respiratory Rate [Anterior Bilateral Throughout] Respiratory Rate [Anterior Bilateral] Blood Pressure 107/39 105/48 108/39 O2 Sat by Pulse 100 100 100 Oximetry 11/01/18 11/01/18 11/01/18 03:58 04:00 04:01 Temperature 97.3 F L Pulse Rate 113 H 111 H Pulse Rate [ Anterior Bilateral Throughout] Pulse Rate [ 108 H Anterior Bilateral] Respiratory 25 H Rate Respiratory Rate [Anterior Bilateral Throughout] Respiratory 25 H Rate [Anterior Bilateral] Blood Pressure 118/50 105/42 O2 Sat by Pulse 100 100 Oximetry 11/01/18 11/01/18 11/01/18 04:30 05:01 05:31 Temperature Pulse Rate 109 H 108 H 109 H Pulse Rate [ Anterior Bilateral Throughout] Pulse Rate [ Anterior Bilateral] Respiratory 25 H 24 24 Rate Respiratory Rate [Anterior Bilateral Throughout] Respiratory Rate [Anterior Bilateral] Blood Pressure 124/46 118/50 117/54 O2 Sat by Pulse 100 100 100 Oximetry 11/01/18 11/01/18 11/01/18 06:01 06:31 07:01 Temperature Pulse Rate 109 H 111 H 108 H Pulse Rate [ Anterior Bilateral Throughout] Pulse Rate [ Anterior Bilateral] Respiratory 25 H 25 H 24 Rate Respiratory Rate [Anterior Bilateral Throughout] Respiratory Rate [Anterior Bilateral] Blood Pressure 115/50 88/49 126/46 O2 Sat by Pulse 100 99 100 Oximetry 11/01/18 11/01/18 07:31 08:00 Temperature 97.3 F L Pulse Rate 111 H 116 H Pulse Rate [ 116 H Anterior Bilateral Throughout] Pulse Rate [ Anterior Bilateral] Respiratory 24 Rate Respiratory 25 H Rate [Anterior Bilateral Throughout] Respiratory Rate [Anterior Bilateral] Blood Pressure 126/46 93/73 O2 Sat by Pulse 95 100 Oximetry - General Appearance General appearance: well-developed, appears stated age, chronically ill, intubated EENT: ATNC, PERRL, mucous membranes moist Neck: no JVD Respiratory: Present: Decreased Breath Sounds Cardiology: regular, S1S2 Gastrointestinal: normoactive bowel sounds Integumentary: no rash, other (no edema ) Neurologic: no focal deficit, alert and oriented x3, strength 5/5, CN 3-12 intact Psychiatric: mood/affect appropriate, cooperative - Lab 11/01/18 06:40 11/01/18 06:40 Most recent lab results Calcium 7.3 mg/dL (8.4-10.2) L 11/01/18 06:40 Phosphorus 3.60 mg/dL (2.5-4.5) D 11/01/18 06:40 Magnesium 1.60 mg/dL (1.7-2.3) L 11/01/18 06:40 Medications & Allergies - Medications Allergies/Adverse Reactions: Allergies Sulfa (Sulfonamide Antibiotics) Allergy (Intermediate, Verified 10/22/18 16:30) Rash metoclopramide HCl [From Reglan] Allergy (Verified 10/22/18 16:30) Dizziness prochlorperazine [From Compazine] Allergy (Verified 10/22/18 16:30) NECK STIFFNESS Home Medications: Home Medications Medication Instructions Recorded Confirmed Last Taken Type Ondansetron 4 mg PO Q6HR PRN 12/05/16 10/22/18 10/29/17 History Propranolol HCl [Propranolol HCl 60 mg PO DAILY 12/05/16 10/22/18 10/30/17 22:00 History ER] QUEtiapine [SEROquel] 300 mg PO DAILY 12/05/16 10/22/18 10/30/17 History Lasix TAB 40 mg PO PRN PRN 12/07/16 10/22/18 10/24/17 History Percocet 10/325 mg 1 tab PO PRN PRN 12/07/16 10/22/18 10/30/17 History Albuterol Sulfate [Albuterol 0.63% 0.63 mg IH TID PRN 10/22/17 10/22/18 10/29/17 History NEBS] Active Medications: Generic Name Dose Route Start Last Admin Trade Name Freq PRN Reason Stop Dose Admin Acetaminophen 650 mg 10/22/18 20:10 Tylenol PO Q4H PRN Pain MILD(1-3)/Fever >100.5/PORTER Albuterol 2.5 mg 10/22/18 20:14 10/28/18 06:34 Proventil IH 2.5 mg Q4HRT PRN Administration Shortness Of Breath Albuterol/Ipratropium 1 ampul 10/28/18 12:00 11/01/18 08:00 Duoneb *Not For Prn Use* IH 1 ampul Q4HRT RICK Administration Budesonide 0.5 mg 10/23/18 08:00 11/01/18 08:00 Pulmicort IH 0.5 mg Q12HRT RICK Administration Dextrose 50 ml 10/26/18 23:40 10/27/18 00:20 D50w (25gm) Syringe IV 50 ml PRN PRN Administration Hypoglycemia Hydralazine HCl 10 mg 10/22/18 21:41 Apresoline IV Q4HR PRN Blood Pressure Fentanyl Citrate 2,000 mcg in 100 mls @ 1.2 mls/hr 10/29/18 11:00 10/31/18 19:00 Fentanyl Drip Premix IV 0.5 mcg/kg/hr TITR RICK 1.2 mls/hr Titration Protocol 0.5 MCG/KG/HR Metronidazole 500 mg in 100 mls @ 100 mls/hr 10/30/18 14:00 11/01/18 07:34 Flagyl 500 Mg/100 Ml IV 100 mls/hr Q8HR RICK Administration Protocol Fluconazole 200 mls @ 100 mls/hr 10/30/18 16:00 10/31/18 10:56 Diflucan IV 100 mls/hr Q24HR RICK Administration Protocol Amino Acids/Electrolytes/Dextrose 2,400 mls @ 100 mls/hr 10/31/18 20:00 10/31/18 20:10 Tpn Adult IV 11/01/18 19:59 100 mls/hr DAILY@2000 [facility] Administration Protocol Cefepime HCl 2 gm in 100 mls @ 200 mls/hr 10/31/18 22:00 11/01/18 00:34 Maxipime/Ns 2 Gm/100 Ml IV 200 mls/hr Q12HR [facility] Administration Protocol Levofloxacin/Dextrose 500 mg in 100 mls @ 100 mls/hr 10/31/18 17:00 10/31/18 18:26 Levaquin 500mg/100ml IV 100 mls/hr Q24HR [facility] Administration Protocol Insulin Human Lispro 0 unit 10/29/18 12:00 11/01/18 00:39 Humalog SUB-Q Not Given Q6HR [facility] Protocol Lorazepam 0.5 mg 10/26/18 22:44 10/26/18 23:14 Ativan IV 0.5 mg Q4H PRN Administration Anxiety Metoprolol Tartrate 5 mg 10/31/18 14:00 10/31/18 20:00 Lopressor IV Not Given TID [facility] Morphine Sulfate 2 mg 10/24/18 13:39 10/29/18 05:46 Morphine IV 2 mg Q4H PRN Administration Pain, Moderate (4-6) Ondansetron HCl 4 mg 10/24/18 10:05 10/25/18 17:26 Zofran IV 4 mg Q6H PRN Administration Nausea And Vomiting Pantoprazole Sodium 40 mg 10/30/18 22:00 11/01/18 00:34 Protonix IV 40 mg BID RICK Administration Phenol 1 spray 10/28/18 10:16 Chloraseptic MM PRN PRN Sore Throat Promethazine HCl 25 mg 10/22/18 20:10 10/22/18 21:21 Phenergan AL 25 mg Q6H PRN Administration Nausea And Vomiting Sodium Chloride 10 ml 10/22/18 22:00 11/01/18 00:35 Sodium Chloride Flush Syringe 10 Ml IV 10 ml BID RICK Administration Sodium Chloride 10 ml 10/22/18 20:10 10/24/18 18:32 Sodium Chloride Flush Syringe 10 Ml IV 10 ml PRN PRN Administration LINE FLUSH
--- NOTE | 2018-11-01 09:41 | Progress Note ---
Assessment and Plan - Patient Problems (1) Partial small bowel obstruction Current Visit: Yes Status: Acute Plan to address problem: 73 yo F with 1. pSBO - resolved 2. contained gastric perforation 3. VDRF 4. aspiration PNA 5. sepsis Obstruction series 10/27 - improved small bowel and stomach dilatation. Obstructions series 10/28 - no significant change since previous study. NGT has been removed Obstruction series 10/29 - relatively normal bowel gas pattern. NGT in place Ct scan A/P from admission reviewed with Dr. Garces - LindyBO. Mesenteric vessels patent. Ct scan C/A/P 10/30 - Images reviewed with Dr. Garces - pSBO resolved, no evidence for bowel ischemia. Small contained gastric perforation at lesser curve. No gross free air or contrast extrav. Ansarca. Bilateral pleural effusions. Bilateral upper lobes infiltrates. Plan: 1. NPO 2. continue NGT to Low continuous WS - NOTHING PER NGT for now. Will reimage stomach soon to make sure there is no leak. 3. strict I/Os 4. gentle IVF 5. prn pain control 6. DVT ppx 7. vent management per ICU 8. c/w abx per ID 9. PPI BID Plan discussed with patient and at bedside. Subjective Date of service: 11/01/18 Patient Reports: Positive: no new complaints (no abdominal pain), flatus, bowel movement Objective Vital Signs - 12hr 10/31/18 10/31/18 10/31/18 22:00 22:30 23:01 Temperature Pulse Rate 90 90 92 H Pulse Rate [ Anterior Bilateral Throughout] Pulse Rate [ Anterior Bilateral] Pulse Rate [ From Monitor] Respiratory 24 24 24 Rate Respiratory Rate [Anterior Bilateral Throughout] Respiratory Rate [Anterior Bilateral] Blood Pressure 93/45 98/35 107/50 O2 Sat by Pulse 100 99 99 Oximetry 10/31/18 10/31/18 10/31/18 23:24 23:31 23:34 Temperature Pulse Rate 90 89 100 H Pulse Rate [ Anterior Bilateral Throughout] Pulse Rate [ Anterior Bilateral] Pulse Rate [ From Monitor] Respiratory 24 24 Rate Respiratory Rate [Anterior Bilateral Throughout] Respiratory Rate [Anterior Bilateral] Blood Pressure 107/50 98/54 98/54 O2 Sat by Pulse 99 100 100 Oximetry 11/01/18 11/01/18 11/01/18 00:00 00:01 00:30 Temperature 98.5 F Pulse Rate 92 H 93 H Pulse Rate [ Anterior Bilateral Throughout] Pulse Rate [ Anterior Bilateral] Pulse Rate [ 92 H From Monitor] Respiratory 24 24 24 Rate Respiratory Rate [Anterior Bilateral Throughout] Respiratory Rate [Anterior Bilateral] Blood Pressure 93/46 95/46 O2 Sat by Pulse 100 100 100 Oximetry 11/01/18 11/01/18 11/01/18 01:00 01:30 02:00 Temperature Pulse Rate 105 H 96 H 101 H Pulse Rate [ Anterior Bilateral Throughout] Pulse Rate [ Anterior Bilateral] Pulse Rate [ From Monitor] Respiratory 25 H 24 30 H Rate Respiratory Rate [Anterior Bilateral Throughout] Respiratory Rate [Anterior Bilateral] Blood Pressure 105/42 91/38 101/41 O2 Sat by Pulse 100 100 99 Oximetry 11/01/18 11/01/18 11/01/18 02:30 03:00 03:30 Temperature Pulse Rate 98 H 103 H 92 H Pulse Rate [ Anterior Bilateral Throughout] Pulse Rate [ Anterior Bilateral] Pulse Rate [ From Monitor] Respiratory 24 21 24 Rate Respiratory Rate [Anterior Bilateral Throughout] Respiratory Rate [Anterior Bilateral] Blood Pressure 107/39 105/48 108/39 O2 Sat by Pulse 100 100 100 Oximetry 11/01/18 11/01/18 11/01/18 03:58 04:00 04:01 Temperature 97.3 F L Pulse Rate 113 H 111 H Pulse Rate [ Anterior Bilateral Throughout] Pulse Rate [ 108 H Anterior Bilateral] Pulse Rate [ 113 H From Monitor] Respiratory 24 25 H Rate Respiratory Rate [Anterior Bilateral Throughout] Respiratory 25 H Rate [Anterior Bilateral] Blood Pressure 118/50 105/42 O2 Sat by Pulse 100 100 Oximetry 11/01/18 11/01/18 11/01/18 04:30 05:01 05:31 Temperature Pulse Rate 109 H 108 H 109 H Pulse Rate [ Anterior Bilateral Throughout] Pulse Rate [ Anterior Bilateral] Pulse Rate [ From Monitor] Respiratory 25 H 24 24 Rate Respiratory Rate [Anterior Bilateral Throughout] Respiratory Rate [Anterior Bilateral] Blood Pressure 124/46 118/50 117/54 O2 Sat by Pulse 100 100 100 Oximetry 11/01/18 11/01/18 11/01/18 06:01 06:31 07:01 Temperature Pulse Rate 109 H 111 H 108 H Pulse Rate [ Anterior Bilateral Throughout] Pulse Rate [ Anterior Bilateral] Pulse Rate [ From Monitor] Respiratory 25 H 25 H 24 Rate Respiratory Rate [Anterior Bilateral Throughout] Respiratory Rate [Anterior Bilateral] Blood Pressure 115/50 88/49 126/46 O2 Sat by Pulse 100 99 100 Oximetry 11/01/18 11/01/18 07:31 08:00 Temperature 97.3 F L Pulse Rate 111 H 116 H Pulse Rate [ 116 H Anterior Bilateral Throughout] Pulse Rate [ Anterior Bilateral] Pulse Rate [ From Monitor] Respiratory 24 Rate Respiratory 25 H Rate [Anterior Bilateral Throughout] Respiratory Rate [Anterior Bilateral] Blood Pressure 126/46 93/73 O2 Sat by Pulse 95 100 Oximetry - General physical appearance no distress, no pain, other (awake on vent) - Eyes normal occular movement - Respiratory normal expansion, normal respiratory effort - Abdomen soft, not tender, bowel sounds hypoactive, not distended, not guarding, not rigid - Labs 11/01/18 06:40 11/01/18 06:40 Diabetes panel 11/01/18 Range/Units 06:40 Sodium 144 (137-145) mmol/L Potassium 3.5 L (3.6-5.0) mmol/L Chloride 114.2 H (98-107) mmol/L Carbon Dioxide 17 L (22-30) mmol/L BUN 49 H (7-17) mg/dL Creatinine 1.1 (0.7-1.2) mg/dL Glucose 107 H (65-100) mg/dL Calcium 7.3 L (8.4-10.2) mg/dL Triglycerides 132 (2-149) mg/dL Thyroid panel 10/31/18 Range/Units 17:00 TSH 3.150 (0.270-4.200) mlU/mL Calcium panel 11/01/18 Range/Units 06:40 Calcium 7.3 L (8.4-10.2) mg/dL Phosphorus 3.60 D (2.5-4.5) mg/dL Pituitary panel 10/31/18 11/01/18 Range/Units 17:00 06:40 Sodium 144 (137-145) mmol/L Potassium 3.5 L (3.6-5.0) mmol/L Chloride 114.2 H (98-107) mmol/L Carbon Dioxide 17 L (22-30) mmol/L BUN 49 H (7-17) mg/dL Creatinine 1.1 (0.7-1.2) mg/dL Glucose 107 H (65-100) mg/dL Calcium 7.3 L (8.4-10.2) mg/dL TSH 3.150 (0.270-4.200) mlU/mL Adrenal panel 11/01/18 Range/Units 06:40 Sodium 144 (137-145) mmol/L Potassium 3.5 L (3.6-5.0) mmol/L Chloride 114.2 H (98-107) mmol/L Carbon Dioxide 17 L (22-30) mmol/L BUN 49 H (7-17) mg/dL Creatinine 1.1 (0.7-1.2) mg/dL Glucose 107 H (65-100) mg/dL Calcium 7.3 L (8.4-10.2) mg/dL
--- NOTE | 2018-11-01 09:48 | Progress Note ---
Assessment and Plan ARF ,reintubated on MV . Bilateral upper lobe pneumonia. Sputum culture now positive for Escherichia coli and stenotrophomonas ID following. See antibiotic recommendations Partial bowel obstruction, perforation. Abdominal CT scan with bilateral effusions, cystitis and slight pneumobilia. WBC improving Mixed acidosis ,AG normal. Respiratory component secondary to effusion/atelectasis plus ongoing metabolic component Chronic pain medications, anti-psychotic therapy . Possible trigger bowel obstruction process Hypernatremia.on D5W. Stable see nephrology note Bradycardia episodes. Still noted sporadically COPD.On nebs.increased congestion. Question of infiltrates on CXR Rec We'll increase PEEP again, considering inefficient ventilation due to atelectasis and recheck ABGs. Rule out up iPEEP but will monitor Antibiotics per ID Better after Lasix but still with increased BUN/creatinine Decrease IV ,fluids infusion rate Continue neb therapy ETT suction Continue NG tube to suction,surgery, If metabolic acidosis component fails to improve further may consider adding bicarbonate drip. Otherwise, no acute indication at this point Discussed with patient,spouse and staff in detail. All questions answered. Critical care time was 31 minutes of [id number] evaluation and coordination of care Subjective Date of service: 11/01/18 Principal diagnosis: colitis, N/V/D Interval history: Breathing slightly better this morning. Some discomfort, pain better Objective Vital Signs - 12hr 10/31/18 10/31/18 10/31/18 22:00 22:30 23:01 Temperature Pulse Rate 90 90 92 H Pulse Rate [ Anterior Bilateral Throughout] Pulse Rate [ Anterior Bilateral] Pulse Rate [ From Monitor] Respiratory 24 24 24 Rate Respiratory Rate [Anterior Bilateral Throughout] Respiratory Rate [Anterior Bilateral] Blood Pressure 93/45 98/35 107/50 O2 Sat by Pulse 100 99 99 Oximetry 10/31/18 10/31/18 10/31/18 23:24 23:31 23:34 Temperature Pulse Rate 90 89 100 H Pulse Rate [ Anterior Bilateral Throughout] Pulse Rate [ Anterior Bilateral] Pulse Rate [ From Monitor] Respiratory 24 24 Rate Respiratory Rate [Anterior Bilateral Throughout] Respiratory Rate [Anterior Bilateral] Blood Pressure 107/50 98/54 98/54 O2 Sat by Pulse 99 100 100 Oximetry 11/01/18 11/01/18 11/01/18 00:00 00:01 00:30 Temperature 98.5 F Pulse Rate 92 H 93 H Pulse Rate [ Anterior Bilateral Throughout] Pulse Rate [ Anterior Bilateral] Pulse Rate [ 92 H From Monitor] Respiratory 24 24 24 Rate Respiratory Rate [Anterior Bilateral Throughout] Respiratory Rate [Anterior Bilateral] Blood Pressure 93/46 95/46 O2 Sat by Pulse 100 100 100 Oximetry 11/01/18 11/01/18 11/01/18 01:00 01:30 02:00 Temperature Pulse Rate 105 H 96 H 101 H Pulse Rate [ Anterior Bilateral Throughout] Pulse Rate [ Anterior Bilateral] Pulse Rate [ From Monitor] Respiratory 25 H 24 30 H Rate Respiratory Rate [Anterior Bilateral Throughout] Respiratory Rate [Anterior Bilateral] Blood Pressure 105/42 91/38 101/41 O2 Sat by Pulse 100 100 99 Oximetry 11/01/18 11/01/18 11/01/18 02:30 03:00 03:30 Temperature Pulse Rate 98 H 103 H 92 H Pulse Rate [ Anterior Bilateral Throughout] Pulse Rate [ Anterior Bilateral] Pulse Rate [ From Monitor] Respiratory 24 21 24 Rate Respiratory Rate [Anterior Bilateral Throughout] Respiratory Rate [Anterior Bilateral] Blood Pressure 107/39 105/48 108/39 O2 Sat by Pulse 100 100 100 Oximetry 11/01/18 11/01/18 11/01/18 03:58 04:00 04:01 Temperature 97.3 F L Pulse Rate 113 H 111 H Pulse Rate [ Anterior Bilateral Throughout] Pulse Rate [ 108 H Anterior Bilateral] Pulse Rate [ 113 H From Monitor] Respiratory 24 25 H Rate Respiratory Rate [Anterior Bilateral Throughout] Respiratory 25 H Rate [Anterior Bilateral] Blood Pressure 118/50 105/42 O2 Sat by Pulse 100 100 Oximetry 11/01/18 11/01/18 11/01/18 04:30 05:01 05:31 Temperature Pulse Rate 109 H 108 H 109 H Pulse Rate [ Anterior Bilateral Throughout] Pulse Rate [ Anterior Bilateral] Pulse Rate [ From Monitor] Respiratory 25 H 24 24 Rate Respiratory Rate [Anterior Bilateral Throughout] Respiratory Rate [Anterior Bilateral] Blood Pressure 124/46 118/50 117/54 O2 Sat by Pulse 100 100 100 Oximetry 11/01/18 11/01/18 11/01/18 06:01 06:31 07:01 Temperature Pulse Rate 109 H 111 H 108 H Pulse Rate [ Anterior Bilateral Throughout] Pulse Rate [ Anterior Bilateral] Pulse Rate [ From Monitor] Respiratory 25 H 25 H 24 Rate Respiratory Rate [Anterior Bilateral Throughout] Respiratory Rate [Anterior Bilateral] Blood Pressure 115/50 88/49 126/46 O2 Sat by Pulse 100 99 100 Oximetry 11/01/18 11/01/18 07:31 08:00 Temperature 97.3 F L Pulse Rate 111 H 116 H Pulse Rate [ 116 H Anterior Bilateral Throughout] Pulse Rate [ Anterior Bilateral] Pulse Rate [ From Monitor] Respiratory 24 Rate Respiratory 25 H Rate [Anterior Bilateral Throughout] Respiratory Rate [Anterior Bilateral] Blood Pressure 126/46 93/73 O2 Sat by Pulse 95 100 Oximetry Constitutional: no acute distress, alert Eyes: non-icteric ENT: other (orally intubated) Neck: supple, no JVD Effort: mildly labored Ascultation: Bilateral: clear, diminished breath sounds (at bases), rhonchi (sporadic) Percussion: Bilateral: not dull Cardiovascular: regular rate and rhythm Gastrointestinal: hypoactive bowel sounds, other (soft and depressible. Decreased bowel sounds, no rebound tenderness mild distention) Integumentary: normal Extremities: no edema Neurologic: normal mental status, non-focal exam Psychiatric: anxious CBC and BMP: 11/01/18 06:40 11/01/18 06:40 ABG, PT/INR, D-dimer: ABG POC ABG pH 7.248 (7.35-7.45) L 11/01/18 05:27 POC ABG pCO2 34.8 (35-45) L 11/01/18 05:27 POC ABG pO2 135 (80-105) H 11/01/18 05:27 POC ABG HCO3 15.2 (22-26 mml/L) 11/01/18 05:27 POC ABG Total CO2 16 (23-27mmol/L) 11/01/18 05:27 POC ABG O2 Sat 99 11/01/18 05:27 Abnormal lab findings: Abnormal Labs 10/22/18 10/22/18 10/22/18 15:31 15:54 15:54 WBC 11.5 H RBC 5.35 H Hgb 17.4 H Hct 50.3 H MCV MCH 33 H MCHC 35 H Plt Count Lymph % (Auto) 12.6 L Garden % (Auto) 14.8 H Lymph # Garden # 1.7 H Seg Neutrophils % 72.5 H Seg Neuts % (Manual) Lymphocytes % (Manual) Seg Neutrophils # 8.3 H Seg Neutrophils # Man Lymphocytes # (Manual) POC ABG pH POC ABG pCO2 POC ABG pO2 Sodium 134 L Potassium Chloride 88.1 L Carbon Dioxide BUN 51 H Creatinine 2.1 H Glucose 166 H POC Glucose Calcium Phosphorus Magnesium Albumin 3.4 L Lipase 10 L Free T4 10/23/18 10/23/18 10/23/18 04:32 04:32 10:53 WBC RBC Hgb Hct MCV MCH MCHC Plt Count Lymph % (Auto) 10.2 L Garden % (Auto) 14.7 H Lymph # 0.7 L Garden # 1.0 H Seg Neutrophils % 74.9 H Seg Neuts % (Manual) Lymphocytes % (Manual) Seg Neutrophils # Seg Neutrophils # Man Lymphocytes # (Manual) POC ABG pH POC ABG pCO2 POC ABG pO2 Sodium Potassium 3.1 L D 3.5 L Chloride Carbon Dioxide BUN 41 H 37 H Creatinine Glucose 111 H 110 H POC Glucose Calcium 8.1 L 8.1 L Phosphorus Magnesium Albumin Lipase Free T4 10/24/18 10/24/18 10/25/18 05:34 05:34 04:51 WBC RBC Hgb Hct MCV MCH MCHC Plt Count Lymph % (Auto) Garden % (Auto) Lymph # Garden # Seg Neutrophils % Seg Neuts % (Manual) Lymphocytes % (Manual) Seg Neutrophils # Seg Neutrophils # Man Lymphocytes # (Manual) POC ABG pH POC ABG pCO2 POC ABG pO2 Sodium Potassium 3.2 L 3.1 L Chloride 109.8 H 114.2 H Carbon Dioxide 17 L D BUN 21 H Creatinine Glucose 134 H 171 H POC Glucose Calcium 7.7 L 7.0 L Phosphorus 0.80 L* Magnesium Albumin Lipase Free T4 10/25/18 10/26/18 10/26/18 06:07 02:58 04:57 WBC RBC Hgb Hct MCV 99 H MCH 33 H MCHC Plt Count Lymph % (Auto) Garden % (Auto) Lymph # Garden # Seg Neutrophils % Seg Neuts % (Manual) Lymphocytes % (Manual) Seg Neutrophils # Seg Neutrophils # Man Lymphocytes # (Manual) POC ABG pH 7.090 L 7.320 L POC ABG pCO2 65.0 H 32.8 L POC ABG pO2 76 L Sodium Potassium Chloride Carbon Dioxide BUN Creatinine Glucose POC Glucose Calcium Phosphorus Magnesium Albumin Lipase Free T4 10/26/18 10/26/18 10/26/18 06:03 06:03 11:52 WBC 23.8 H RBC Hgb 15.4 H Hct 46.1 H D MCV MCH MCHC Plt Count Lymph % (Auto) Garden % (Auto) Lymph # Garden # Seg Neutrophils % Seg Neuts % (Manual) Lymphocytes % (Manual) Seg Neutrophils # Seg Neutrophils # Man Lymphocytes # (Manual) POC ABG pH POC ABG pCO2 POC ABG pO2 Sodium Potassium Chloride 109.5 H Carbon Dioxide 18 L BUN Creatinine Glucose 128 H POC Glucose 117 H Calcium 8.3 L D Phosphorus Magnesium Albumin Lipase Free T4 10/26/18 10/26/18 10/26/18 13:54 17:10 17:32 WBC RBC Hgb Hct MCV MCH MCHC Plt Count Lymph % (Auto) Garden % (Auto) Lymph # Garden # Seg Neutrophils % Seg Neuts % (Manual) Lymphocytes % (Manual) Seg Neutrophils # Seg Neutrophils # Man Lymphocytes # (Manual) POC ABG pH 7.215 L POC ABG pCO2 31.8 L POC ABG pO2 69 L 204 H Sodium Potassium 3.0 L D Chloride 114.5 H Carbon Dioxide 21 L BUN Creatinine Glucose POC Glucose Calcium 7.6 L Phosphorus Magnesium 1.40 L Albumin Lipase Free T4 10/26/18 10/27/18 10/27/18 23:13 00:40 01:09 WBC RBC Hgb Hct MCV MCH MCHC Plt Count Lymph % (Auto) Garden % (Auto) Lymph # Garden # Seg Neutrophils % Seg Neuts % (Manual) Lymphocytes % (Manual) Seg Neutrophils # Seg Neutrophils # Man Lymphocytes # (Manual) POC ABG pH POC ABG pCO2 POC ABG pO2 Sodium Potassium 3.4 L Chloride 115.0 H Carbon Dioxide 14 L D BUN Creatinine Glucose 228 H POC Glucose 48 L 264 H Calcium 7.1 L Phosphorus Magnesium Albumin Lipase Free T4 10/27/18 10/27/18 10/27/18 05:00 05:00 05:16 WBC 22.5 H RBC Hgb 14.7 H Hct 44.4 H MCV MCH MCHC Plt Count Lymph % (Auto) Garden % (Auto) Lymph # Garden # Seg Neutrophils % Seg Neuts % (Manual) Lymphocytes % (Manual) Seg Neutrophils # Seg Neutrophils # Man Lymphocytes # (Manual) POC ABG pH 7.304 L POC ABG pCO2 POC ABG pO2 116 H Sodium Potassium Chloride 118.4 H Carbon Dioxide 16 L BUN Creatinine Glucose 123 H POC Glucose Calcium 7.7 L Phosphorus Magnesium 2.60 H Albumin Lipase Free T4 10/28/18 10/28/18 10/28/18 04:25 04:25 15:37 WBC 23.5 H RBC Hgb Hct MCV MCH MCHC Plt Count Lymph % (Auto) Garden % (Auto) Lymph # Garden # Seg Neutrophils % Seg Neuts % (Manual) Lymphocytes % (Manual) Seg Neutrophils # Seg Neutrophils # Man Lymphocytes # (Manual) POC ABG pH POC ABG pCO2 POC ABG pO2 Sodium 147 H Potassium Chloride 116.9 H Carbon Dioxide 16 L BUN 23 H Creatinine Glucose POC Glucose 114 H Calcium 8.0 L Phosphorus Magnesium Albumin Lipase Free T4 10/28/18 10/28/18 10/28/18 20:33 22:07 23:31 WBC RBC Hgb Hct MCV MCH MCHC Plt Count Lymph % (Auto) Garden % (Auto) Lymph # Garden # Seg Neutrophils % Seg Neuts % (Manual) Lymphocytes % (Manual) Seg Neutrophils # Seg Neutrophils # Man Lymphocytes # (Manual) POC ABG pH 7.202 L 7.235 L POC ABG pCO2 POC ABG pO2 71 L Sodium Potassium Chloride Carbon Dioxide BUN Creatinine Glucose POC Glucose 207 H Calcium Phosphorus Magnesium Albumin Lipase Free T4 10/29/18 10/29/18 10/29/18 04:30 04:30 05:26 WBC 21.1 H RBC Hgb Hct MCV MCH MCHC Plt Count Lymph % (Auto) Garden % (Auto) Lymph # Garden # Seg Neutrophils % Seg Neuts % (Manual) 97.0 H Lymphocytes % (Manual) 3.0 L Seg Neutrophils # Seg Neutrophils # Man 20.5 H Lymphocytes # (Manual) 0.6 L POC ABG pH 7.305 L POC ABG pCO2 30.5 L POC ABG pO2 75 L Sodium 147 H Potassium 3.5 L Chloride 120.0 H Carbon Dioxide 17 L BUN 30 H Creatinine Glucose 246 H POC Glucose Calcium 7.9 L Phosphorus Magnesium Albumin Lipase Free T4 10/29/18 10/29/18 10/29/18 05:36 11:39 18:00 WBC RBC Hgb Hct MCV MCH MCHC Plt Count Lymph % (Auto) Garden % (Auto) Lymph # Garden # Seg Neutrophils % Seg Neuts % (Manual) Lymphocytes % (Manual) Seg Neutrophils # Seg Neutrophils # Man Lymphocytes # (Manual) POC ABG pH POC ABG pCO2 POC ABG pO2 Sodium Potassium Chloride Carbon Dioxide BUN Creatinine Glucose POC Glucose 204 H 224 H 221 H Calcium Phosphorus Magnesium Albumin Lipase Free T4 10/29/18 10/30/18 10/30/18 23:17 05:00 05:00 WBC 21.4 H RBC Hgb Hct MCV MCH MCHC Plt Count 134 L Lymph % (Auto) Garden % (Auto) Lymph # Garden # Seg Neutrophils % Seg Neuts % (Manual) 97.0 H Lymphocytes % (Manual) 3.0 L Seg Neutrophils # Seg Neutrophils # Man 20.8 H Lymphocytes # (Manual) 0.6 L POC ABG pH POC ABG pCO2 POC ABG pO2 Sodium 148 H Potassium 3.1 L Chloride 120.3 H Carbon Dioxide 18 L BUN 31 H Creatinine Glucose 205 H POC Glucose 181 H Calcium 8.0 L Phosphorus Magnesium Albumin Lipase Free T4 10/30/18 10/30/18 10/30/18 05:14 05:25 05:26 WBC RBC Hgb Hct MCV MCH MCHC Plt Count Lymph % (Auto) Garden % (Auto) Lymph # Garden # Seg Neutrophils % Seg Neuts % (Manual) Lymphocytes % (Manual) Seg Neutrophils # Seg Neutrophils # Man Lymphocytes # (Manual) POC ABG pH 7.296 L 7.245 L POC ABG pCO2 31.1 L POC ABG pO2 54 L 59 L Sodium Potassium Chloride Carbon Dioxide BUN Creatinine Glucose POC Glucose 199 H Calcium Phosphorus Magnesium Albumin Lipase Free T4 10/30/18 10/30/18 10/31/18 13:23 18:25 00:22 WBC RBC Hgb Hct MCV MCH MCHC Plt Count Lymph % (Auto) Garden % (Auto) Lymph # Garden # Seg Neutrophils % Seg Neuts % (Manual) Lymphocytes % (Manual) Seg Neutrophils # Seg Neutrophils # Man Lymphocytes # (Manual) POC ABG pH POC ABG pCO2 POC ABG pO2 Sodium Potassium Chloride Carbon Dioxide BUN Creatinine Glucose POC Glucose 146 H 158 H 162 H Calcium Phosphorus Magnesium Albumin Lipase Free T4 10/31/18 10/31/18 10/31/18 04:39 05:14 07:05 WBC RBC Hgb Hct MCV MCH MCHC Plt Count Lymph % (Auto) Garden % (Auto) Lymph # Garden # Seg Neutrophils % Seg Neuts % (Manual) Lymphocytes % (Manual) Seg Neutrophils # Seg Neutrophils # Man Lymphocytes # (Manual) POC ABG pH 7.238 L POC ABG pCO2 POC ABG pO2 Sodium Potassium Chloride 115.8 H Carbon Dioxide 18 L BUN 39 H Creatinine 1.3 H Glucose 167 H POC Glucose 145 H Calcium 7.5 L Phosphorus 1.80 L Magnesium Albumin Lipase Free T4 10/31/18 10/31/18 10/31/18 10:43 12:03 17:00 WBC RBC Hgb Hct MCV MCH MCHC Plt Count Lymph % (Auto) Garden % (Auto) Lymph # Garden # Seg Neutrophils % Seg Neuts % (Manual) Lymphocytes % (Manual) Seg Neutrophils # Seg Neutrophils # Man Lymphocytes # (Manual) POC ABG pH 7.304 L POC ABG pCO2 33.3 L POC ABG pO2 Sodium Potassium Chloride Carbon Dioxide BUN Creatinine Glucose POC Glucose 159 H Calcium Phosphorus Magnesium Albumin Lipase Free T4 0.49 L 10/31/18 11/01/18 11/01/18 17:00 00:44 05:27 WBC RBC Hgb Hct MCV MCH MCHC Plt Count Lymph % (Auto) Garden % (Auto) Lymph # Garden # Seg Neutrophils % Seg Neuts % (Manual) Lymphocytes % (Manual) Seg Neutrophils # Seg Neutrophils # Man Lymphocytes # (Manual) POC ABG pH 7.248 L POC ABG pCO2 34.8 L POC ABG pO2 135 H Sodium Potassium Chloride Carbon Dioxide BUN Creatinine Glucose POC Glucose 127 H 118 H Calcium Phosphorus Magnesium Albumin Lipase Free T4 11/01/18 11/01/18 11/01/18 06:40 06:40 06:53 WBC 18.9 H RBC 3.63 L Hgb Hct MCV MCH MCHC Plt Count 64 L Lymph % (Auto) Garden % (Auto) Lymph # Garden # Seg Neutrophils % Seg Neuts % (Manual) Lymphocytes % (Manual) Seg Neutrophils # Seg Neutrophils # Man Lymphocytes # (Manual) POC ABG pH POC ABG pCO2 POC ABG pO2 Sodium Potassium 3.5 L Chloride 114.2 H Carbon Dioxide 17 L BUN 49 H Creatinine Glucose 107 H POC Glucose 127 H Calcium 7.3 L Phosphorus Magnesium 1.60 L Albumin Lipase Free T4 Allied health notes reviewed: nursing
[2018-11-01] MEDS: LEVAQUIN 500MG/100ML 500 MG/100 ML BAG IV SCH (09:50)
[2018-11-01] MEDS: DIFLUCAN 200 ML IV SCH (09:52)
[2018-11-01 10:19] LABS: Total Cells Counted 100
[2018-11-01 10:20] LABS: Basophils % (Manual) 0 % (0.0-1.8); Eosinophils % (Manual) 0 % (0.0-4.3); Monocytes % (Manual) 0 % (0.0-7.3)
[2018-11-01 10:21] LABS: Platelet Estimate Consistent w Auto; RBC Morphology Normal
--- NOTE | 2018-11-01 11:12 | Progress Note ---
Assessment and Plan Assessment and plan: Gastric perforation. Surgery reports that it is contained and recommends conservative management with continuing NGT, NPO, gentle IVF and when necessary pain control. Antibiotics/antifungals per ID. Continue protonix 40mg IV BID. Sepsis. Continue antibiotics and follow cultures. Bilateral upper lobe/aspiration pneumonia. Sputum culture now positive for Escherichia coli and stenotrophomonas. Continue antibiotics per ID. Partial small bowel obstruction. Continue NGT. Acute exacerbation COPD. Scheduled Duo Nebs and Pulmicort; albuterol when necessary Acute hypoxic respiratory failure. Patient was reintubated on 10/28/18 and currently on mechanical ventilation. Etiology secondary to COPD/pneumonia. Wean mechanical ventilation per pulmonary. Hypokalemia. Replete potassium. Hypertension. IV hydralazine when necessary Lupus. Supportive care Fibromyalgia. supportive care History of opioid dependence ADWOA due to vasomotor nephropathy, now resolved The high probability of a clinically significant, sudden or life threatening deterioration of the [GI and respiratory] system(s) required my full and direct attention, intervention and personal management. The aggregate critical care time was [34] minutes. This time is in addition to time spent performing reported procedures but includes the following: [x] Data Review and interpretation [x] Patient assessment and monitoring of vital signs [x] Documentation [x] Medication orders and management History Interval history: Patient is 73-year-old female with history of hypertension, lupus, fibromyalgia, COPD, opioid dependence (follows Dr. Felix Muñiz at pain clinic) who presented to [facility] ED with complaints of intractable nausea, vomiting, diarrhea for 3 days. On initial presentation to the ED she was found to be tachycardiac with heart rate 113 BPM, leukocytosis with WBC 11.5, elevated BUN/Cr 51/2.1. Patient has history of COPD and at baseline does not require home oxygen use. She was admitted to [facility]. GI was consulted, she was evaluated. CT Abdomen revealed partial SBO versus ileus therefore surgeon consulted. Also patient became more short of breath, placed on BIPAP with no improvement then intubated 10/26/18 for acute resp failure and transferred to ICU. Obstruction series completed on 10/27 which showed improved but small bowel and stomach dilatation. Follow-up series on 10/28 showed no significant change since previous study. NG tube was removed due to patient not tolerating/refusing. Patient was placed back on BiPAP but decompensated on the night of 10/28/18 and had to be reintubated. Patient currently on mechanical ventilation.. Hospitalist Physical - Constitutional Vitals: Temp Pulse Resp BP Pulse Ox 97.3 F L 98 H 26 H 113/41 99 11/01/18 08:00 11/01/18 10:31 11/01/18 10:31 11/01/18 10:31 11/01/18 10:31 General appearance: Present: other (intubated, opens eyes to commands) - EENT Eyes: Present: PERRL, EOM intact ENT: hearing intact, clear oral mucosa, dentition normal - Neck Neck: Present: supple, normal ROM - Respiratory Respiratory effort: normal Respiratory: bilateral: CTA - Cardiovascular Rhythm: regular Heart Sounds: Present: S1 & S2. Absent: gallop, rub - Extremities Extremities: no ischemia, No edema, Full ROM - Abdominal General gastrointestinal: soft, non-tender, non-distended, normal bowel sounds - Integumentary Integumentary: Present: clear, warm, dry - Neurologic Neurologic: CNII-XII intact, moves all extremities Results - Labs CBC & Chem 7: 11/01/18 06:40 11/01/18 06:40 Labs: Laboratory Last Values WBC 18.9 K/mm3 (4.5-11.0) H 11/01/18 06:40 RBC 3.63 M/mm3 (3.65-5.03) L 11/01/18 06:40 Hgb 11.6 gm/dl (10.1-14.3) 11/01/18 06:40 Hct 34.9 % (30.3-42.9) 11/01/18 06:40 MCV 96 fl (79-97) 11/01/18 06:40 MCH 32 pg (28-32) 11/01/18 06:40 MCHC 33 % (30-34) 11/01/18 06:40 RDW 15.0 % (13.2-15.2) 11/01/18 06:40 Plt Count 64 K/mm3 (140-440) L 11/01/18 06:40 Lymph % (Auto) 10.2 % (13.4-35.0) L 10/23/18 04:32 Barnes % (Auto) 14.7 % (0.0-7.3) H 10/23/18 04:32 Eos % (Auto) 0.1 % (0.0-4.3) 10/23/18 04:32 Baso % (Auto) 0.1 % (0.0-1.8) 10/23/18 04:32 Lymph # 0.7 K/mm3 (1.2-5.4) L 10/23/18 04:32 Barnes # 1.0 K/mm3 (0.0-0.8) H 10/23/18 04:32 Eos # 0.0 K/mm3 (0.0-0.4) 10/23/18 04:32 Baso # 0.0 K/mm3 (0.0-0.1) 10/23/18 04:32 Add Manual Diff Complete 11/01/18 06:40 Total Counted 100 11/01/18 06:40 Seg Neutrophils % Landscape Supervisor 11/01/18 06:40 Seg Neuts % (Manual) 98.0 % (40.0-70.0) H 11/01/18 06:40 0 % 11/01/18 06:40 1.0 % (13.4-35.0) L 11/01/18 06:40 Reactive Lymphs % (Man) 0 % 11/01/18 06:40 0 % (0.0-7.3) 11/01/18 06:40 0 % (0.0-4.3) 11/01/18 06:40 0 % (0.0-1.8) 11/01/18 06:40 1.0 % 11/01/18 06:40 0 % 11/01/18 06:40 0 % 11/01/18 06:40 0 % 11/01/18 06:40 Nucleated RBC % Not Reportable 11/01/18 06:40 Seg Neutrophils # 5.2 K/mm3 (1.8-7.7) 10/23/18 04:32 Seg Neutrophils # Man 18.5 K/mm3 (1.8-7.7) H 11/01/18 06:40 Band Neutrophils # 0.0 K/mm3 11/01/18 06:40 0.2 K/mm3 (1.2-5.4) L 11/01/18 06:40 Abs React Lymphs (Man) 0.0 K/mm3 11/01/18 06:40 0.0 K/mm3 (0.0-0.8) 11/01/18 06:40 0.0 K/mm3 (0.0-0.4) 11/01/18 06:40 0.0 K/mm3 (0.0-0.1) 11/01/18 06:40 0.2 K/mm3 11/01/18 06:40 0.0 K/mm3 11/01/18 06:40 0.0 K/mm3 11/01/18 06:40 Blast Cells # 0.0 K/mm3 11/01/18 06:40 WBC Morphology Not Reportable 11/01/18 06:40 Hypersegmented Neuts Not Reportable 11/01/18 06:40 Hyposegmented Neuts Not Reportable 11/01/18 06:40 Hypogranular Neuts Not Reportable 11/01/18 06:40 Not Reportable 11/01/18 06:40 Not Reportable 11/01/18 06:40 Not Reportable 11/01/18 06:40 Not Reportable 11/01/18 06:40 Not Reportable 11/01/18 06:40 Not Reportable 11/01/18 06:40 Consistent w auto 11/01/18 06:40 Not Reportable 11/01/18 06:40 Plt Clumps, EDTA Not Reportable 11/01/18 06:40 Not Reportable 11/01/18 06:40 Not Reportable 11/01/18 06:40 Not Reportable 11/01/18 06:40 Plt Morphology Comment Not Reportable 11/01/18 06:40 RBC Morphology Normal 11/01/18 06:40 Dimorphic RBCs Not Reportable 11/01/18 06:40 Not Reportable 11/01/18 06:40 Not Reportable 11/01/18 06:40 Not Reportable 11/01/18 06:40 Not Reportable 11/01/18 06:40 Not Reportable 11/01/18 06:40 Not Reportable 11/01/18 06:40 Not Reportable 11/01/18 06:40 Not Reportable 11/01/18 06:40 Not Reportable 11/01/18 06:40 Not Reportable 11/01/18 06:40 Not Reportable 11/01/18 06:40 Not Reportable 11/01/18 06:40 Not Reportable 11/01/18 06:40 Not Reportable 11/01/18 06:40 Not Reportable 11/01/18 06:40 Not Reportable 11/01/18 06:40 Not Reportable 11/01/18 06:40 Not Reportable 11/01/18 06:40 Not Reportable 11/01/18 06:40 Acanthocytes (Spur) Not Reportable 11/01/18 06:40 Rouleaux Not Reportable 11/01/18 06:40 Not Reportable 11/01/18 06:40 Not Reportable 11/01/18 06:40 Not Reportable 11/01/18 06:40 Not Reportable 11/01/18 06:40 Hem Pathologist Commnt No 11/01/18 06:40 POC ABG pH 7.248 (7.35-7.45) L 11/01/18 05:27 POC ABG pCO2 34.8 (35-45) L 11/01/18 05:27 POC ABG pO2 135 (80-105) H 11/01/18 05:27 POC ABG HCO3 15.2 (22-26 mml/L) 11/01/18 05:27 POC ABG Total CO2 16 (23-27mmol/L) 11/01/18 05:27 POC ABG O2 Sat 99 11/01/18 05:27 POC ABG Base Excess -12 ((-2) - (+3)mmol/L) 11/01/18 05:27 40 % 11/01/18 05:27 Sodium 144 mmol/L (137-145) 11/01/18 06:40 Potassium 3.5 mmol/L (3.6-5.0) L 11/01/18 06:40 Chloride 114.2 mmol/L (98-107) H 11/01/18 06:40 Carbon Dioxide 17 mmol/L (22-30) L 11/01/18 06:40 16 mmol/L 11/01/18 06:40 BUN 49 mg/dL (7-17) H 11/01/18 06:40 1.1 mg/dL (0.7-1.2) 11/01/18 06:40 Estimated GFR 49 ml/min 11/01/18 06:40 45 % 11/01/18 06:40 Glucose 107 mg/dL (65-100) H 11/01/18 06:40 POC Glucose 127 (70-105) H 11/01/18 06:53 Lactic Acid 1.60 mmol/L (0.7-2.0) 10/26/18 15:03 Calcium 7.3 mg/dL (8.4-10.2) L 11/01/18 06:40 Phosphorus 3.60 mg/dL (2.5-4.5) D 11/01/18 06:40 Magnesium 1.60 mg/dL (1.7-2.3) L 11/01/18 06:40 0.40 mg/dL (0.1-1.2) 10/22/18 15:54 AST 25 units/L (5-40) 10/22/18 15:54 ALT 22 units/L (7-56) 10/22/18 15:54 129 units/L (35-129) 10/22/18 15:54 7.6 g/dL (6.3-8.2) 10/22/18 15:54 3.4 g/dL (3.9-5) L 10/22/18 15:54 0.8 % 10/22/18 15:54 Triglycerides 132 mg/dL (2-149) 11/01/18 06:40 10 units/L (13-60) L 10/22/18 15:54 TSH 3.150 mlU/mL (0.270-4.200) 10/31/18 17:00 Free T4 0.49 ng/dL (0.76-1.46) L 10/31/18 17:00 Dulce (Yellow) 10/22/18 19:10 Clear (Clear) 10/22/18 19:10 5.0 (5.0-7.0) 10/22/18 19:10 Ur Specific [place] 1.018 (1.003-1.030) 10/22/18 19:10 30 mg/dl mg/dL (Negative) 10/22/18 19:10 Neg mg/dL (Negative) 10/22/18 19:10 Tr mg/dL (Negative) 10/22/18 19:10 Neg (Negative) 10/22/18 19:10 Neg (Negative) 10/22/18 19:10 Neg (Negative) 10/22/18 19:10 < 2.0 mg/dL (<2.0) 10/22/18 19:10 Ur Leukocyte Esterase Neg (Negative) 10/22/18 19:10 1.0 /HPF (0.0-6.0) 10/22/18 19:10 3.0 /HPF (0.0-6.0) 10/22/18 19:10 Active Medications - Current Medications Current Medications: Generic Name Dose Route Start Last Admin Trade Name Freq PRN Reason Stop Dose Admin Acetaminophen 650 mg 10/22/18 20:10 Tylenol PO Q4H PRN Pain MILD(1-3)/Fever >100.5/PORTER Albuterol 2.5 mg 10/22/18 20:14 10/28/18 06:34 Proventil IH 2.5 mg Q4HRT PRN Administration Shortness Of Breath Albuterol/Ipratropium 1 ampul 10/28/18 12:00 11/01/18 08:00 Duoneb *Not For Prn Use* IH 1 ampul Q4HRT RICK Administration Budesonide 0.5 mg 10/23/18 08:00 11/01/18 08:00 Pulmicort IH 0.5 mg Q12HRT RICK Administration Dextrose 50 ml 10/26/18 23:40 10/27/18 00:20 D50w (25gm) Syringe IV 50 ml PRN PRN Administration Hypoglycemia Hydralazine HCl 10 mg 10/22/18 21:41 Apresoline IV Q4HR PRN Blood Pressure Fentanyl Citrate 2,000 mcg in 100 mls @ 1.2 mls/hr 10/29/18 11:00 10/31/18 19:00 Fentanyl Drip Premix IV 0.5 mcg/kg/hr TITR RICK 1.2 mls/hr Titration Protocol 0.5 MCG/KG/HR Metronidazole 500 mg in 100 mls @ 100 mls/hr 10/30/18 14:00 11/01/18 08:34 Flagyl 500 Mg/100 Ml IV Infused Q8HR RICK Infusion Protocol Fluconazole 200 mls @ 100 mls/hr 10/30/18 16:00 11/01/18 09:52 Diflucan IV 100 mls/hr Q24HR RICK Administration Protocol Amino Acids/Electrolytes/Dextrose 2,400 mls @ 100 mls/hr 10/31/18 20:00 10/31/18 20:10 Tpn Adult IV 11/01/18 19:59 100 mls/hr DAILY@2000 [facility] Administration Protocol Cefepime HCl 2 gm in 100 mls @ 200 mls/hr 10/31/18 22:00 11/01/18 09:51 Maxipime/Ns 2 Gm/100 Ml IV 200 mls/hr Q12HR [facility] Administration Protocol Levofloxacin/Dextrose 500 mg in 100 mls @ 100 mls/hr 10/31/18 17:00 11/01/18 09:50 Levaquin 500mg/100ml IV 100 mls/hr Q24HR [facility] Administration Protocol Insulin Human Lispro 0 unit 10/29/18 12:00 11/01/18 06:00 Humalog SUB-Q Not Given Q6HR [facility] Protocol Lorazepam 0.5 mg 10/26/18 22:44 10/26/18 23:14 Ativan IV 0.5 mg Q4H PRN Administration Anxiety Metoprolol Tartrate 5 mg 10/31/18 14:00 11/01/18 08:00 Lopressor IV 5 mg TID [facility] Administration Morphine Sulfate 2 mg 10/24/18 13:39 10/29/18 05:46 Morphine IV 2 mg Q4H PRN Administration Pain, Moderate (4-6) Ondansetron HCl 4 mg 10/24/18 10:05 10/25/18 17:26 Zofran IV 4 mg Q6H PRN Administration Nausea And Vomiting Pantoprazole Sodium 40 mg 10/30/18 22:00 11/01/18 09:50 Protonix IV 40 mg BID [facility] Administration Phenol 1 spray 10/28/18 10:16 Chloraseptic MM PRN PRN Sore Throat Promethazine HCl 25 mg 10/22/18 20:10 10/22/18 21:21 Phenergan LA 25 mg Q6H PRN Administration Nausea And Vomiting Sodium Chloride 10 ml 10/22/18 22:00 11/01/18 09:53 Sodium Chloride Flush Syringe 10 Ml IV 10 ml BID RICK Administration Sodium Chloride 10 ml 10/22/18 20:10 10/24/18 18:32 Sodium Chloride Flush Syringe 10 Ml IV 10 ml PRN PRN Administration LINE FLUSH Nutrition/Malnutrition Assess - Dietary Evaluation Nutrition/Malnutrition Findings: Nutrition Notes Start: 10/23/18 17:03 Freq: Status: Active Protocol: Document 10/31/18 09:29 LP (Rec: 10/31/18 09:37 LP [email or web address]) Nutrition Notes Initial or Follow up Reassessment Current Diagnosis Acute Kidney Injury,COPD, Sepsis,Hypertension Other Pertinent Diagnosis partial SBO, lupus, opiod dependence, SIRS Current Diet Clinimix at 75ml/hr Labs/Tests Phos 1.8 Pertinent Medications Reviewed Height 5 ft 3 in Weight 68 kg [place] Body Weight (kg) 52.27 BMI 26.5 Weight change and time frame Will use pt previous wt Subjective/Other Information T.O read back and verified MD Díaz to write and manage TPN . Pt has PICC placed. Percent of energy/protein needs met: 48%/100% Burn Absent Trauma Absent #1 Nutrition Diagnosis Inadequate oral intake Diagnosis Progress(for reassessment Continues documentation) Is patient on ventilator? Yes Is Patient Ambulatory and/or Out of Bed No REE-([facility]-confined to bed) 1397.052 Kcal/Kg value to use for calculation 25 Approximate Energy Requirements Using 1700 kcal/Kg Calculation Used for Recommendations Kcal/kg Additional Notes Protein needs are 58-96g (1.2- 2g/kg) Fluid needs are 1ml/kcal Nutrition Intervention Change Diet Order: PPN Nutrition Support: PPN at 100ml/hr: 4.25% amino acid, 5% dextrose, 48mEq Na, 24mEq K, 5mEq Mg, 10mEq Ca, 24mmol phos, Chloride: Acetate 25:75, MVI, Thiamine Osmolarity: 739 Kcal 808 Protein (gm) 100 Carbohydrates (gm) 120 Fat (gm) 0 Fluid (mL) 2,400 Fiber (gm) 0 Goal #1 Meet kcal and protein needs as best as possible Anticipated Discharge Needs: Unable to determine at this time Follow-Up By: 11/01/18 Additional Comments Labs in AM: BMP, Mg, Phos, TG
--- NOTE | 2018-11-01 11:57 | Progress Note ---
Assessment and Plan Please see detailed consult from yesterday Presently w/ sinus tachycardia (no recent pauses or adama noted) Not a candidate for systemic anticoagulation given recent gastic ulcer/perf f/u tte will follow - Patient Problems (1) ADWOA (acute kidney injury) Current Visit: Yes Status: Acute (2) Acute renal failure Current Visit: Yes Status: Acute (3) Acute respiratory failure with hypoxia Current Visit: Yes Status: Acute (4) Hypokalemia Current Visit: Yes Status: Acute (5) Paroxysmal atrial flutter Current Visit: Yes Status: Acute (6) Partial small bowel obstruction Current Visit: Yes Status: Acute (7) Perforated gastric ulcer Current Visit: Yes Status: Acute (8) Tachy-adama syndrome Current Visit: Yes Status: Acute (9) COPD (chronic obstructive pulmonary disease) Current Visit: Yes Status: Chronic (10) History of hypertension Current Visit: Yes Status: Chronic Subjective Date of service: 11/01/18 Principal diagnosis: colitis, N/V/D Interval history: intubated, awake/alert, at bedside appears comfortable Objective Vital Signs Temp Pulse Pulse Pulse Pulse Resp Resp 11/01/18 11:46 130 H 11/01/18 11:31 131 H 20 11/01/18 11:01 129 H 26 H 11/01/18 10:31 98 H 26 H 11/01/18 10:01 99 H 24 11/01/18 09:31 109 H 19 11/01/18 09:01 101 H 23 11/01/18 08:31 106 H 24 11/01/18 08:01 117 H 22 11/01/18 08:00 97.3 F L 110 H 116 H 108 H 25 H 25 H 11/01/18 07:31 111 H 24 11/01/18 07:01 108 H 24 11/01/18 06:31 111 H 25 H 11/01/18 06:01 109 H 25 H 11/01/18 05:31 109 H 24 11/01/18 05:01 108 H 24 11/01/18 04:30 109 H 25 H 11/01/18 04:01 111 H 25 H 11/01/18 04:00 113 H 108 H 113 H 24 11/01/18 03:58 97.3 F L 11/01/18 03:30 92 H 24 11/01/18 03:00 103 H 21 11/01/18 02:30 98 H 24 11/01/18 02:00 101 H 30 H 11/01/18 01:30 96 H 24 11/01/18 01:00 105 H 25 H 11/01/18 00:30 93 H 24 11/01/18 00:01 92 H 24 11/01/18 00:00 98.5 F 92 H 24 10/31/18 23:34 100 H 10/31/18 23:31 89 24 10/31/18 23:24 90 24 10/31/18 23:01 92 H 24 10/31/18 22:30 90 24 10/31/18 22:00 90 24 10/31/18 21:30 96 H 24 10/31/18 21:01 94 H 24 10/31/18 21:00 94 H 24 10/31/18 20:31 94 H 24 10/31/18 20:21 102 H 10/31/18 20:16 97 H 10/31/18 20:00 103 H 21 10/31/18 19:31 107 H 19 10/31/18 19:26 98.4 F 10/31/18 19:01 115 H 26 H 10/31/18 18:30 91 H 24 10/31/18 18:01 87 22 10/31/18 17:31 84 24 10/31/18 17:01 96 H 21 10/31/18 16:31 93 H 25 H 10/31/18 16:00 96 H 85 24 10/31/18 15:35 80 10/31/18 15:31 100 H 26 H 10/31/18 15:25 87 10/31/18 15:20 86 10/31/18 15:13 102 H 10/31/18 15:00 96 H 24 10/31/18 14:30 96 H 24 10/31/18 14:00 96 H 25 H 10/31/18 13:30 94 H 24 10/31/18 13:00 89 24 10/31/18 12:30 98 H 22 10/31/18 12:00 95 H 92 H 22 Resp BP Pulse Ox 11/01/18 11:46 112/92 100 11/01/18 11:31 112/92 99 11/01/18 11:01 113/41 100 11/01/18 10:31 113/41 99 11/01/18 10:01 107/47 99 11/01/18 09:31 107/47 100 11/01/18 09:01 107/47 100 11/01/18 08:31 102/61 100 11/01/18 08:01 93/73 99 11/01/18 08:00 113/63 100 11/01/18 07:31 126/46 95 11/01/18 07:01 126/46 100 11/01/18 06:31 88/49 99 11/01/18 06:01 115/50 100 11/01/18 05:31 117/54 100 11/01/18 05:01 118/50 100 11/01/18 04:30 124/46 100 11/01/18 04:01 105/42 100 11/01/18 04:00 25 H 118/50 100 11/01/18 03:58 11/01/18 03:30 108/39 100 11/01/18 03:00 105/48 100 11/01/18 02:30 107/39 100 11/01/18 02:00 101/41 99 11/01/18 01:30 91/38 100 11/01/18 01:00 105/42 100 11/01/18 00:30 95/46 100 11/01/18 00:01 93/46 100 11/01/18 00:00 100 10/31/18 23:34 98/54 100 10/31/18 23:31 98/54 100 10/31/18 23:24 107/50 99 10/31/18 23:01 107/50 99 10/31/18 22:30 98/35 99 10/31/18 22:00 93/45 100 10/31/18 21:30 96/43 100 10/31/18 21:01 93/34 10/31/18 21:00 100 10/31/18 20:31 98/47 10/31/18 20:21 24 10/31/18 20:16 98/47 100 10/31/18 20:00 98/47 100 10/31/18 19:31 100/36 100 10/31/18 19:26 10/31/18 19:01 109/52 99 10/31/18 18:30 102/39 10/31/18 18:01 95/37 98 10/31/18 17:31 91/39 99 10/31/18 17:01 95/47 99 10/31/18 16:31 95/64 98 10/31/18 16:00 115/56 100 10/31/18 15:35 22 10/31/18 15:31 116/40 99 10/31/18 15:25 106/41 100 10/31/18 15:20 20 10/31/18 15:13 106/41 10/31/18 15:00 106/41 99 10/31/18 14:30 104/45 99 10/31/18 14:00 109/45 100 10/31/18 13:30 109/43 99 10/31/18 13:00 112/49 98 10/31/18 12:30 108/52 99 10/31/18 12:00 113/48 98 - Physical Examination HEENT: Positive: PERRL Neck: Positive: neck supple, trachea midline Neuro: Positive: Other (intubated, opens eyes to commands) Skin: Negative: Rash Musculoskeletal: No Pain Extremities: Absent: edema - Labs and Meds Lipids 11/01/18 Range/Units 06:40 Triglycerides 132 (2-149) mg/dL CBC 11/01/18 Range/Units 06:40 WBC 18.9 H (4.5-11.0) K/mm3 RBC 3.63 L (3.65-5.03) M/mm3 Hgb 11.6 (10.1-14.3) gm/dl Hct 34.9 (30.3-42.9) % Plt Count 64 L (140-440) K/mm3 Comprehensive Metabolic Panel 11/01/18 Range/Units 06:40 Sodium 144 (137-145) mmol/L Potassium 3.5 L (3.6-5.0) mmol/L Chloride 114.2 H (98-107) mmol/L Carbon Dioxide 17 L (22-30) mmol/L BUN 49 H (7-17) mg/dL Creatinine 1.1 (0.7-1.2) mg/dL Glucose 107 H (65-100) mg/dL Calcium 7.3 L (8.4-10.2) mg/dL - Imaging and Cardiology EKG: report reviewed, image reviewed Echo: pending - EKG Sinus rhythms and dysrhythmias: sinus rhythm - Allied health notes Allied health notes reviewed: nursing
[2018-11-01] MEDS: fentaNYL DRIP Premix 2,000 MCG/100 ML BAG IV SCH (12:42)
[2018-11-01] MEDS ORDERED: TPN ADULT 2,400 ML IV SCH (20:00)
[2018-11-02] MEDS: HumaLOG SUB-Q SCH ×4 (00:20→23:51)
[2018-11-02] MEDS: DUONEB *Not for PRN Use IH SCH ×6 (03:15→23:41)
[2018-11-02] MEDS ORDERED: SODIUM BICARBONATE 150 MEQ in D5W 1,000 ML IV SCH (06:00)
[2018-11-02 06:05] LABS: BUN/Creatinine Ratio 52; Blood Urea Nitrogen 47 mg/dL (7-17); Calcium 7.7 mg/dL (8.4-10.2); Hemolysis Index 3
--- NOTE | 2018-11-02 07:03 | XRay Report ---
PROCEDURE: XR CHEST 1V AP TECHNIQUE: Chest radiograph single view. HISTORY: respiratory failure COMPARISONS: 10/28 2018 . FINDINGS: Heart: Normal. Mediastinum/Vessels: Normal. Lungs/Pleural space: There are bibasilar infiltrates. There is a small left pleural effusion. There is no pneumothorax.. Bony thorax: No acute osseous abnormality. Life support devices: There is endotracheal tube in the mid trachea. NG tube is in the stomach. There is a right-sided PICC line. The tip is in the superior vena cava.. IMPRESSION: The heart size is normal. There are bibasilar infiltrates. There is a small left pleural effusion. There is no pneumothorax.. There is endotracheal tube in the mid trachea. NG tube is in the stomach. There is a right-sided PICC line. The tip is in the superior vena cava... This document is electronically signed by Dawit Middleton MD., November 02 2018 08:01:21 AM ET
--- NOTE | 2018-11-02 07:05 | XRay Report ---
PROCEDURE: XR ABD SERIES W CXR 1V TECHNIQUE: Abdominal series complete, including supine and upright AP views of the abdomen and front al chest. HISTORY: perforation COMPARISONS: None . FINDINGS: Heart: Normal. Mediastinum/Vessels: Normal. Lungs/Pleural space: There are bilateral pulmonary infiltrates worse on the left. There is a small l eft pleural effusion.. Bowel gas pattern: Nonobstructive . Masses or calcifications: None . Bony structures: No acute osseous abnormality . Other: The endotracheal tube is in the distal trachea. NG tube is in the stomach. There is a right-s ided PICC line. The tip is in the superior vena cava. There is no free intraperitoneal air. . IMPRESSION: The heart size is normal.. There are bilateral pulmonary infiltrates worse on the left. There is a small left pleural effusion.. There is no acute bowel abnormality. The endotracheal tube is in the distal trachea. NG tube is in the stomach. There is a right-sided PIC C line. The tip is in the superior vena cava. There is no free intraperitoneal air. . This document is electronically signed by Dawit Middleton MD., November 02 2018 08:03:10 AM ET
[2018-11-02] MEDS: PULMICORT IH SCH ×2 (07:53→19:19)
[2018-11-02] MEDS: LOPRESSOR IV SCH ×3 (08:54→20:50)
[2018-11-02] MEDS: FLAGYL 500 MG/100 ML 500 MG/100 ML BAG IV SCH ×3 (09:00→22:17)
--- NOTE | 2018-11-02 09:46 | Progress Note ---
Assessment and Plan Cultures: Blood cultures 10/22/2018 no growth so far. Tracheal asp cultures 10/28/2018: E.coli and Stenotrophomonas. 10/30/2018 blood culture: in progress Assessment: 73 y/o female with history of COPD, hypertension, lupus, fibromyalgia, opioid dependence admitted on 10/22/2018 due to 3-day history of intractable nausea, vomiting, diarrhea: 1) SIRS v/s sepsis: Etiology most likely aspiration pneumonia +/- intra- abdominal source from contained gastric perforation 2) Presumed aspiration pneumonia v/s HAP: Tracheal asp cultures 10/28/2018 with E.coli and Stenotrophomonas. Stenotrophomonas is a known colonizer in patients with structural lung disease or tracheostomy tubes, not generally considered very virulent. 3) Acute respiratory failure: intubated, on the vent. 4) Ileus v/s partial SBO and contained gastric perforation: Gen Surgery following. Planned for conservative management. 5) ADWOA: renally dosed all antibiotics Recommendations: - check WBC tomorrow - plan to d/c Cefepime tomorrow - continue Flagyl, Levofloxacin and Fluconazole for another 4 days Phong Joy MD [facility] C: [phone] O: [phone] F: [phone] Subjective Date of service: 11/02/18 Principal diagnosis: colitis, N/V/D Interval history: No fever. Remains on the vent. Awake, alert, denies any pain or complaints. Pa ssing gas and had a BM per at bedside. Objective - Exam Narrative Exam: Physical Exam: Constitutional: awake, but intubated, no distress Head, Ears, Nose: Normocephalic, atraumatic. External ears, nose normal Eyes: Conjunctivae/corneas clear. No icterus. No ptosis. Neck: Supple, no meningeal signs Oral: intubated Cardiovascular: S1, S2 normal. Respiratory: Good air entry, clear to auscultation bilaterally but reduced in the bases GI: Soft, non-tender; bowel sounds +, No peritoneal signs Musculoskeletal: No pedal edema, no cyanosis. Skin: No rash or abscess Hem/Lymphatic: No palpable cervical or supraclavicular nodes. No lymphangitis Psych: no agitation Neurological: awake, intubated, on vent - Constitutional Vitals: Vital Signs Temp Pulse Resp BP Pulse Ox 97.9 F 117 H 24 123/36 100 11/02/18 08:00 11/02/18 08:31 11/02/18 08:31 11/02/18 08:31 11/02/18 08:31 Temperature -Last 24 Hours Temperature 97.9 F Temperature 97.4 F Temperature 97.5 F Temperature 97.3 F Temperature 97.6 F Temperature 97.2 F - Labs CBC & Chem 7: 11/01/18 06:40 11/02/18 05:00 Labs: Abnormal lab results 11/01/18 11/01/18 11/01/18 Range/Units 06:40 11:49 13:13 Seg Neuts % (Manual) 98.0 H (40.0-70.0) % Lymphocytes % (Manual) 1.0 L (13.4-35.0) % Seg Neutrophils # Man 18.5 H (1.8-7.7) K/mm3 Lymphocytes # (Manual) 0.2 L (1.2-5.4) K/mm3 POC ABG pH (7.35-7.45) POC ABG pCO2 (35-45) POC ABG pO2 182 H (80-105) Potassium (3.6-5.0) mmol/L Chloride (98-107) mmol/L Carbon Dioxide (22-30) mmol/L BUN (7-17) mg/dL Glucose (65-100) mg/dL POC Glucose 134 H (70-105) Calcium (8.4-10.2) mg/dL Magnesium (1.7-2.3) mg/dL 11/01/18 11/01/18 11/02/18 Range/Units 17:24 23:07 04:32 Seg Neuts % (Manual) (40.0-70.0) % Lymphocytes % (Manual) (13.4-35.0) % Seg Neutrophils # Man (1.8-7.7) K/mm3 Lymphocytes # (Manual) (1.2-5.4) K/mm3 POC ABG pH 7.244 L (7.35-7.45) POC ABG pCO2 33.2 L (35-45) POC ABG pO2 123 H (80-105) Potassium (3.6-5.0) mmol/L Chloride (98-107) mmol/L Carbon Dioxide (22-30) mmol/L BUN (7-17) mg/dL Glucose (65-100) mg/dL POC Glucose 111 H 123 H (70-105) Calcium (8.4-10.2) mg/dL Magnesium (1.7-2.3) mg/dL 11/02/18 11/02/18 11/02/18 Range/Units 05:00 05:00 05:29 Seg Neuts % (Manual) (40.0-70.0) % Lymphocytes % (Manual) (13.4-35.0) % Seg Neutrophils # Man (1.8-7.7) K/mm3 Lymphocytes # (Manual) (1.2-5.4) K/mm3 POC ABG pH (7.35-7.45) POC ABG pCO2 (35-45) POC ABG pO2 (80-105) Potassium 3.0 L (3.6-5.0) mmol/L Chloride 114.1 H (98-107) mmol/L Carbon Dioxide 15 L (22-30) mmol/L BUN 47 H (7-17) mg/dL Glucose 127 H (65-100) mg/dL POC Glucose 118 H (70-105) Calcium 7.7 L (8.4-10.2) mg/dL Magnesium 1.60 L (1.7-2.3) mg/dL - Imaging and cardiology Chest x-ray: report reviewed, image reviewed (b/l effusions.)
[2018-11-02] MEDS ORDERED: KCL 20MEQ/100ML 20 MEQ/100 ML BAG IV ONE ×2 (10:00→13:00)
[2018-11-02] MEDS: SODIUM CHLORIDE FLUSH SYRINGE 10 ML IV SCH ×3 (10:00→22:18)
--- NOTE | 2018-11-02 10:05 | Progress Note ---
Assessment and Plan ARF ,reintubated on MV . Fungemia. On Fluconazole, antibiotics changed now by ID. May need to switch off PICC to other access,hold IV nutrition ? Bilateral upper lobe pneumonia. Sputum culture now positive for Escherichia coli and stenotrophomonas ID following. See antibiotic recommendations Partial bowel obstruction, perforation. Abdominal CT scan with bilateral effusions, cystitis and slight pneumobilia. Now fungemia Mixed acidosis , no further improvement. Now with fungal sepsis. Respiratory component secondary to effusion/atelectasis plus ongoing metabolic component Chronic pain medications, anti-psychotic therapy . Possible trigger bowel obstruction process Hypokalemia. Need replacement Bradycardia episodes. Appreciate Cards input COPD.On nebs.increased congestion. Question of infiltrates on CXR Rec Potassium being replaced already, recommend 40 mEq potassium rider and repeat as necessary Antibiotics per ID Switch central lines when possible Consider progressing oral nutrition, once bowel obstruction cleared No HIT panel results yet,platelets keep dropping. Will order DIC panel, ask Hematology to see Adjust IV's , monitor I/O, weight qd Continue neb therapy ETT suction Continue NG tube to suction,surgery, If metabolic acidosis component continues,consider adding bicarbonate drip empyrically, if additionally increase respiratory rate is unsuccessful Discussed with patient,spouse and staff in detail. All questions answered. Critical care time was 31 minutes of [id number] evaluation and coordination of care Subjective Date of service: 11/02/18 Principal diagnosis: colitis, N/V/D Interval history: Some abdominal discomfort . No shortness of breath. No new events overnight Objective Vital Signs - 12hr 11/01/18 11/01/18 11/01/18 22:30 23:00 23:03 Temperature Pulse Rate 118 H 120 H 121 H Pulse Rate [ Anterior Bilateral Throughout] Pulse Rate [ From Monitor] Respiratory 24 20 Rate Respiratory Rate [Anterior Bilateral Throughout] Blood Pressure 115/44 107/61 107/61 O2 Sat by Pulse 100 98 99 Oximetry 11/01/18 11/01/18 11/01/18 23:05 23:17 23:30 Temperature Pulse Rate 119 H 122 H Pulse Rate [ 121 H 116 H Anterior Bilateral Throughout] Pulse Rate [ From Monitor] Respiratory 25 H 25 H Rate Respiratory 24 24 Rate [Anterior Bilateral Throughout] Blood Pressure 107/61 129/59 O2 Sat by Pulse 100 99 Oximetry 11/01/18 11/02/18 11/02/18 23:46 00:00 00:31 Temperature 97.5 F L Pulse Rate 99 H 105 H Pulse Rate [ Anterior Bilateral Throughout] Pulse Rate [ 99 H From Monitor] Respiratory 24 22 Rate Respiratory Rate [Anterior Bilateral Throughout] Blood Pressure 119/59 124/62 O2 Sat by Pulse 99 99 Oximetry 11/02/18 11/02/18 11/02/18 01:01 01:31 02:00 Temperature Pulse Rate 106 H 94 H 99 H Pulse Rate [ Anterior Bilateral Throughout] Pulse Rate [ From Monitor] Respiratory 25 H 24 24 Rate Respiratory Rate [Anterior Bilateral Throughout] Blood Pressure 105/18 94/38 94/34 O2 Sat by Pulse 100 100 100 Oximetry 11/02/18 11/02/18 11/02/18 02:30 03:01 03:13 Temperature Pulse Rate 98 H 129 H 130 H Pulse Rate [ Anterior Bilateral Throughout] Pulse Rate [ From Monitor] Respiratory 24 21 Rate Respiratory Rate [Anterior Bilateral Throughout] Blood Pressure 110/40 113/66 113/66 O2 Sat by Pulse 100 100 100 Oximetry 11/02/18 11/02/18 11/02/18 03:15 03:31 03:33 Temperature Pulse Rate 130 H Pulse Rate [ 130 H 130 H Anterior Bilateral Throughout] Pulse Rate [ From Monitor] Respiratory 18 Rate Respiratory 24 24 Rate [Anterior Bilateral Throughout] Blood Pressure 102/41 O2 Sat by Pulse 100 Oximetry 11/02/18 11/02/18 11/02/18 03:37 04:00 04:31 Temperature 97.4 F L Pulse Rate 109 H 108 H Pulse Rate [ Anterior Bilateral Throughout] Pulse Rate [ 100 H From Monitor] Respiratory 15 24 Rate Respiratory Rate [Anterior Bilateral Throughout] Blood Pressure 112/43 114/38 O2 Sat by Pulse 100 100 Oximetry 11/02/18 11/02/18 11/02/18 05:01 05:31 06:00 Temperature Pulse Rate 110 H 115 H 111 H Pulse Rate [ Anterior Bilateral Throughout] Pulse Rate [ From Monitor] Respiratory 26 H 22 21 Rate Respiratory Rate [Anterior Bilateral Throughout] Blood Pressure 116/44 113/71 110/69 O2 Sat by Pulse 99 99 99 Oximetry 11/02/18 11/02/18 11/02/18 06:31 07:01 07:30 Temperature Pulse Rate 123 H 118 H 119 H Pulse Rate [ Anterior Bilateral Throughout] Pulse Rate [ From Monitor] Respiratory 24 26 H 24 Rate Respiratory Rate [Anterior Bilateral Throughout] Blood Pressure 133/75 119/41 126/99 O2 Sat by Pulse 99 100 98 Oximetry 11/02/18 11/02/18 11/02/18 07:53 08:00 08:01 Temperature 97.9 F Pulse Rate 112 H 112 H Pulse Rate [ 117 H Anterior Bilateral Throughout] Pulse Rate [ 112 H From Monitor] Respiratory 24 23 Rate Respiratory 24 Rate [Anterior Bilateral Throughout] Blood Pressure 101/20 101/20 O2 Sat by Pulse 100 100 Oximetry 11/02/18 08:31 Temperature Pulse Rate 117 H Pulse Rate [ Anterior Bilateral Throughout] Pulse Rate [ From Monitor] Respiratory 24 Rate Respiratory Rate [Anterior Bilateral Throughout] Blood Pressure 123/36 O2 Sat by Pulse 100 Oximetry Constitutional: no acute distress, alert Eyes: non-icteric ENT: other (orally intubated) Neck: supple, no JVD Effort: mildly labored Ascultation: Bilateral: clear, diminished breath sounds (at bases) Percussion: Bilateral: not dull Cardiovascular: regular rate and rhythm Gastrointestinal: hypoactive bowel sounds, other (soft and depressible. Decreased bowel sounds, no rebound tenderness mild distention) Integumentary: normal Extremities: no edema Neurologic: normal mental status, non-focal exam Psychiatric: anxious CBC and BMP: 11/01/18 06:40 11/02/18 05:00 ABG, PT/INR, D-dimer: ABG POC ABG pH 7.244 (7.35-7.45) L 11/02/18 04:32 POC ABG pCO2 33.2 (35-45) L 11/02/18 04:32 POC ABG pO2 123 (80-105) H 11/02/18 04:32 POC ABG HCO3 14.4 (22-26 mml/L) 11/02/18 04:32 POC ABG Total CO2 15 (23-27mmol/L) 11/02/18 04:32 POC ABG O2 Sat 98 11/02/18 04:32 Abnormal lab findings: Abnormal Labs 10/22/18 10/22/18 10/22/18 15:31 15:54 15:54 WBC 11.5 H RBC 5.35 H Hgb 17.4 H Hct 50.3 H MCV MCH 33 H MCHC 35 H Plt Count Lymph % (Auto) 12.6 L [place] % (Auto) 14.8 H Lymph # [place] # 1.7 H Seg Neutrophils % 72.5 H Seg Neuts % (Manual) Lymphocytes % (Manual) Seg Neutrophils # 8.3 H Seg Neutrophils # Man Lymphocytes # (Manual) POC ABG pH POC ABG pCO2 POC ABG pO2 Sodium 134 L Potassium Chloride 88.1 L Carbon Dioxide BUN 51 H Creatinine 2.1 H Glucose 166 H POC Glucose Calcium Phosphorus Magnesium Albumin 3.4 L Lipase 10 L Free T4 10/23/18 10/23/18 10/23/18 04:32 04:32 10:53 WBC RBC Hgb Hct MCV MCH MCHC Plt Count Lymph % (Auto) 10.2 L [place] % (Auto) 14.7 H Lymph # 0.7 L [place] # 1.0 H Seg Neutrophils % 74.9 H Seg Neuts % (Manual) Lymphocytes % (Manual) Seg Neutrophils # Seg Neutrophils # Man Lymphocytes # (Manual) POC ABG pH POC ABG pCO2 POC ABG pO2 Sodium Potassium 3.1 L D 3.5 L Chloride Carbon Dioxide BUN 41 H 37 H Creatinine Glucose 111 H 110 H POC Glucose Calcium 8.1 L 8.1 L Phosphorus Magnesium Albumin Lipase Free T4 10/24/18 10/24/18 10/25/18 05:34 05:34 04:51 WBC RBC Hgb Hct MCV MCH MCHC Plt Count Lymph % (Auto) [place] % (Auto) Lymph # [place] # Seg Neutrophils % Seg Neuts % (Manual) Lymphocytes % (Manual) Seg Neutrophils # Seg Neutrophils # Man Lymphocytes # (Manual) POC ABG pH POC ABG pCO2 POC ABG pO2 Sodium Potassium 3.2 L 3.1 L Chloride 109.8 H 114.2 H Carbon Dioxide 17 L D BUN 21 H Creatinine Glucose 134 H 171 H POC Glucose Calcium 7.7 L 7.0 L Phosphorus 0.80 L* Magnesium Albumin Lipase Free T4 10/25/18 10/26/18 10/26/18 06:07 02:58 04:57 WBC RBC Hgb Hct MCV 99 H MCH 33 H MCHC Plt Count Lymph % (Auto) [place] % (Auto) Lymph # [place] # Seg Neutrophils % Seg Neuts % (Manual) Lymphocytes % (Manual) Seg Neutrophils # Seg Neutrophils # Man Lymphocytes # (Manual) POC ABG pH 7.090 L 7.320 L POC ABG pCO2 65.0 H 32.8 L POC ABG pO2 76 L Sodium Potassium Chloride Carbon Dioxide BUN Creatinine Glucose POC Glucose Calcium Phosphorus Magnesium Albumin Lipase Free T4 10/26/18 10/26/18 10/26/18 06:03 06:03 11:52 WBC 23.8 H RBC Hgb 15.4 H Hct 46.1 H D MCV MCH MCHC Plt Count Lymph % (Auto) [place] % (Auto) Lymph # [place] # Seg Neutrophils % Seg Neuts % (Manual) Lymphocytes % (Manual) Seg Neutrophils # Seg Neutrophils # Man Lymphocytes # (Manual) POC ABG pH POC ABG pCO2 POC ABG pO2 Sodium Potassium Chloride 109.5 H Carbon Dioxide 18 L BUN Creatinine Glucose 128 H POC Glucose 117 H Calcium 8.3 L D Phosphorus Magnesium Albumin Lipase Free T4 10/26/18 10/26/18 10/26/18 13:54 17:10 17:32 WBC RBC Hgb Hct MCV MCH MCHC Plt Count Lymph % (Auto) [place] % (Auto) Lymph # [place] # Seg Neutrophils % Seg Neuts % (Manual) Lymphocytes % (Manual) Seg Neutrophils # Seg Neutrophils # Man Lymphocytes # (Manual) POC ABG pH 7.215 L POC ABG pCO2 31.8 L POC ABG pO2 69 L 204 H Sodium Potassium 3.0 L D Chloride 114.5 H Carbon Dioxide 21 L BUN Creatinine Glucose POC Glucose Calcium 7.6 L Phosphorus Magnesium 1.40 L Albumin Lipase Free T4 10/26/18 10/27/18 10/27/18 23:13 00:40 01:09 WBC RBC Hgb Hct MCV MCH MCHC Plt Count Lymph % (Auto) [place] % (Auto) Lymph # [place] # Seg Neutrophils % Seg Neuts % (Manual) Lymphocytes % (Manual) Seg Neutrophils # Seg Neutrophils # Man Lymphocytes # (Manual) POC ABG pH POC ABG pCO2 POC ABG pO2 Sodium Potassium 3.4 L Chloride 115.0 H Carbon Dioxide 14 L D BUN Creatinine Glucose 228 H POC Glucose 48 L 264 H Calcium 7.1 L Phosphorus Magnesium Albumin Lipase Free T4 10/27/18 10/27/18 10/27/18 05:00 05:00 05:16 WBC 22.5 H RBC Hgb 14.7 H Hct 44.4 H MCV MCH MCHC Plt Count Lymph % (Auto) [place] % (Auto) Lymph # [place] # Seg Neutrophils % Seg Neuts % (Manual) Lymphocytes % (Manual) Seg Neutrophils # Seg Neutrophils # Man Lymphocytes # (Manual) POC ABG pH 7.304 L POC ABG pCO2 POC ABG pO2 116 H Sodium Potassium Chloride 118.4 H Carbon Dioxide 16 L BUN Creatinine Glucose 123 H POC Glucose Calcium 7.7 L Phosphorus Magnesium 2.60 H Albumin Lipase Free T4 10/28/18 10/28/18 10/28/18 04:25 04:25 15:37 WBC 23.5 H RBC Hgb Hct MCV MCH MCHC Plt Count Lymph % (Auto) [place] % (Auto) Lymph # [place] # Seg Neutrophils % Seg Neuts % (Manual) Lymphocytes % (Manual) Seg Neutrophils # Seg Neutrophils # Man Lymphocytes # (Manual) POC ABG pH POC ABG pCO2 POC ABG pO2 Sodium 147 H Potassium Chloride 116.9 H Carbon Dioxide 16 L BUN 23 H Creatinine Glucose POC Glucose 114 H Calcium 8.0 L Phosphorus Magnesium Albumin Lipase Free T4 10/28/18 10/28/18 10/28/18 20:33 22:07 23:31 WBC RBC Hgb Hct MCV MCH MCHC Plt Count Lymph % (Auto) [place] % (Auto) Lymph # [place] # Seg Neutrophils % Seg Neuts % (Manual) Lymphocytes % (Manual) Seg Neutrophils # Seg Neutrophils # Man Lymphocytes # (Manual) POC ABG pH 7.202 L 7.235 L POC ABG pCO2 POC ABG pO2 71 L Sodium Potassium Chloride Carbon Dioxide BUN Creatinine Glucose POC Glucose 207 H Calcium Phosphorus Magnesium Albumin Lipase Free T4 10/29/18 10/29/18 10/29/18 04:30 04:30 05:26 WBC 21.1 H RBC Hgb Hct MCV MCH MCHC Plt Count Lymph % (Auto) [place] % (Auto) Lymph # [place] # Seg Neutrophils % Seg Neuts % (Manual) 97.0 H Lymphocytes % (Manual) 3.0 L Seg Neutrophils # Seg Neutrophils # Man 20.5 H Lymphocytes # (Manual) 0.6 L POC ABG pH 7.305 L POC ABG pCO2 30.5 L POC ABG pO2 75 L Sodium 147 H Potassium 3.5 L Chloride 120.0 H Carbon Dioxide 17 L BUN 30 H Creatinine Glucose 246 H POC Glucose Calcium 7.9 L Phosphorus Magnesium Albumin Lipase Free T4 10/29/18 10/29/18 10/29/18 05:36 11:39 18:00 WBC RBC Hgb Hct MCV MCH MCHC Plt Count Lymph % (Auto) [place] % (Auto) Lymph # [place] # Seg Neutrophils % Seg Neuts % (Manual) Lymphocytes % (Manual) Seg Neutrophils # Seg Neutrophils # Man Lymphocytes # (Manual) POC ABG pH POC ABG pCO2 POC ABG pO2 Sodium Potassium Chloride Carbon Dioxide BUN Creatinine Glucose POC Glucose 204 H 224 H 221 H Calcium Phosphorus Magnesium Albumin Lipase Free T4 10/29/18 10/30/18 10/30/18 23:17 05:00 05:00 WBC 21.4 H RBC Hgb Hct MCV MCH MCHC Plt Count 134 L Lymph % (Auto) [place] % (Auto) Lymph # [place] # Seg Neutrophils % Seg Neuts % (Manual) 97.0 H Lymphocytes % (Manual) 3.0 L Seg Neutrophils # Seg Neutrophils # Man 20.8 H Lymphocytes # (Manual) 0.6 L POC ABG pH POC ABG pCO2 POC ABG pO2 Sodium 148 H Potassium 3.1 L Chloride 120.3 H Carbon Dioxide 18 L BUN 31 H Creatinine Glucose 205 H POC Glucose 181 H Calcium 8.0 L Phosphorus Magnesium Albumin Lipase Free T4 10/30/18 10/30/18 10/30/18 05:14 05:25 05:26 WBC RBC Hgb Hct MCV MCH MCHC Plt Count Lymph % (Auto) [place] % (Auto) Lymph # [place] # Seg Neutrophils % Seg Neuts % (Manual) Lymphocytes % (Manual) Seg Neutrophils # Seg Neutrophils # Man Lymphocytes # (Manual) POC ABG pH 7.296 L 7.245 L POC ABG pCO2 31.1 L POC ABG pO2 54 L 59 L Sodium Potassium Chloride Carbon Dioxide BUN Creatinine Glucose POC Glucose 199 H Calcium Phosphorus Magnesium Albumin Lipase Free T4 10/30/18 10/30/18 10/31/18 13:23 18:25 00:22 WBC RBC Hgb Hct MCV MCH MCHC Plt Count Lymph % (Auto) [place] % (Auto) Lymph # [place] # Seg Neutrophils % Seg Neuts % (Manual) Lymphocytes % (Manual) Seg Neutrophils # Seg Neutrophils # Man Lymphocytes # (Manual) POC ABG pH POC ABG pCO2 POC ABG pO2 Sodium Potassium Chloride Carbon Dioxide BUN Creatinine Glucose POC Glucose 146 H 158 H 162 H Calcium Phosphorus Magnesium Albumin Lipase Free T4 10/31/18 10/31/18 10/31/18 04:39 05:14 07:05 WBC RBC Hgb Hct MCV MCH MCHC Plt Count Lymph % (Auto) [place] % (Auto) Lymph # [place] # Seg Neutrophils % Seg Neuts % (Manual) Lymphocytes % (Manual) Seg Neutrophils # Seg Neutrophils # Man Lymphocytes # (Manual) POC ABG pH 7.238 L POC ABG pCO2 POC ABG pO2 Sodium Potassium Chloride 115.8 H Carbon Dioxide 18 L BUN 39 H Creatinine 1.3 H Glucose 167 H POC Glucose 145 H Calcium 7.5 L Phosphorus 1.80 L Magnesium Albumin Lipase Free T4 10/31/18 10/31/18 10/31/18 10:43 12:03 17:00 WBC RBC Hgb Hct MCV MCH MCHC Plt Count Lymph % (Auto) [place] % (Auto) Lymph # [place] # Seg Neutrophils % Seg Neuts % (Manual) Lymphocytes % (Manual) Seg Neutrophils # Seg Neutrophils # Man Lymphocytes # (Manual) POC ABG pH 7.304 L POC ABG pCO2 33.3 L POC ABG pO2 Sodium Potassium Chloride Carbon Dioxide BUN Creatinine Glucose POC Glucose 159 H Calcium Phosphorus Magnesium Albumin Lipase Free T4 0.49 L 10/31/18 11/01/18 11/01/18 17:00 00:44 05:27 WBC RBC Hgb Hct MCV MCH MCHC Plt Count Lymph % (Auto) [place] % (Auto) Lymph # [place] # Seg Neutrophils % Seg Neuts % (Manual) Lymphocytes % (Manual) Seg Neutrophils # Seg Neutrophils # Man Lymphocytes # (Manual) POC ABG pH 7.248 L POC ABG pCO2 34.8 L POC ABG pO2 135 H Sodium Potassium Chloride Carbon Dioxide BUN Creatinine Glucose POC Glucose 127 H 118 H Calcium Phosphorus Magnesium Albumin Lipase Free T4 11/01/18 11/01/18 11/01/18 06:40 06:40 06:53 WBC 18.9 H RBC 3.63 L Hgb Hct MCV MCH MCHC Plt Count 64 L Lymph % (Auto) [place] % (Auto) Lymph # [place] # Seg Neutrophils % Seg Neuts % (Manual) 98.0 H Lymphocytes % (Manual) 1.0 L Seg Neutrophils # Seg Neutrophils # Man 18.5 H Lymphocytes # (Manual) 0.2 L POC ABG pH POC ABG pCO2 POC ABG pO2 Sodium Potassium 3.5 L Chloride 114.2 H Carbon Dioxide 17 L BUN 49 H Creatinine Glucose 107 H POC Glucose 127 H Calcium 7.3 L Phosphorus Magnesium 1.60 L Albumin Lipase Free T4 11/01/18 11/01/18 11/01/18 11:49 13:13 17:24 WBC RBC Hgb Hct MCV MCH MCHC Plt Count Lymph % (Auto) [place] % (Auto) Lymph # [place] # Seg Neutrophils % Seg Neuts % (Manual) Lymphocytes % (Manual) Seg Neutrophils # Seg Neutrophils # Man Lymphocytes # (Manual) POC ABG pH POC ABG pCO2 POC ABG pO2 182 H Sodium Potassium Chloride Carbon Dioxide BUN Creatinine Glucose POC Glucose 134 H 111 H Calcium Phosphorus Magnesium Albumin Lipase Free T4 11/01/18 11/02/18 11/02/18 23:07 04:32 05:00 WBC RBC Hgb Hct MCV MCH MCHC Plt Count Lymph % (Auto) [place] % (Auto) Lymph # [place] # Seg Neutrophils % Seg Neuts % (Manual) Lymphocytes % (Manual) Seg Neutrophils # Seg Neutrophils # Man Lymphocytes # (Manual) POC ABG pH 7.244 L POC ABG pCO2 33.2 L POC ABG pO2 123 H Sodium Potassium 3.0 L Chloride 114.1 H Carbon Dioxide 15 L BUN 47 H Creatinine Glucose 127 H POC Glucose 123 H Calcium 7.7 L Phosphorus Magnesium Albumin Lipase Free T4 11/02/18 11/02/18 05:00 05:29 WBC RBC Hgb Hct MCV MCH MCHC Plt Count Lymph % (Auto) [place] % (Auto) Lymph # [place] # Seg Neutrophils % Seg Neuts % (Manual) Lymphocytes % (Manual) Seg Neutrophils # Seg Neutrophils # Man Lymphocytes # (Manual) POC ABG pH POC ABG pCO2 POC ABG pO2 Sodium Potassium Chloride Carbon Dioxide BUN Creatinine Glucose POC Glucose 118 H Calcium Phosphorus Magnesium 1.60 L Albumin Lipase Free T4 Allied health notes reviewed: nursing
[2018-11-02] MEDS: LEVAQUIN 500MG/100ML 500 MG/100 ML BAG IV SCH (10:30)
[2018-11-02] MEDS: PROTONIX IV SCH ×2 (10:30→22:17)
--- NOTE | 2018-11-02 10:58 | Progress Note ---
Assessment and Plan Assessment and plan: Gastric perforation. Surgery reports that it is contained and recommends conservative management with continuing NGT, NPO, gentle IVF and when necessary pain control. Antibiotics/antifungals per ID. Continue protonix 40mg IV BID. Sepsis/fungemia. Continue antibiotics/antifungals and follow cultures. ID following. May need to switch off PICC to other access, hold IV nutrition ? Thrombocytopenia. Etiology likely secondary to sepsis. Hematology consultation pending. Check HIT panel. Bilateral upper lobe/aspiration pneumonia. Sputum culture positive for Escherichia coli and stenotrophomonas. Continue antibiotics per ID. Partial small bowel obstruction. Continue NGT. Acute exacerbation COPD. Scheduled Duo Nebs and Pulmicort; albuterol when necessary Acute hypoxic respiratory failure. Patient was reintubated on 10/28/18 and currently on mechanical ventilation. Etiology secondary to COPD/pneumonia. Wean mechanical ventilation per pulmonary. Hypokalemia. Replete potassium. Hypertension. IV hydralazine when necessary Lupus. Supportive care Fibromyalgia. supportive care History of opioid dependence ADWOA due to vasomotor nephropathy, now resolved The high probability of a clinically significant, sudden or life threatening deterioration of the [GI and respiratory] system(s) required my full and direct attention, intervention and personal management. The aggregate critical care time was [31] minutes. This time is in addition to time spent performing reported procedures but includes the following: [x] Data Review and interpretation [x] Patient assessment and monitoring of vital signs [x] Documentation [x] Medication orders and management History Interval history: Patient is 73-year-old female with history of hypertension, lupus, fibromyalgia, COPD, opioid dependence (follows Dr. Felix Muñiz at pain clinic) who presented to [facility] ED with complaints of intractable nausea, vomiting, diarrhea for 3 days. On initial presentation to the ED she was found to be tachycardiac with heart rate 113 BPM, leukocytosis with WBC 11.5, elevated BUN/Cr 51/2.1. Patient has history of COPD and at baseline does not require home oxygen use. She was admitted to [facility]. GI was consulted, she was evaluated. CT Abdomen revealed partial SBO versus ileus therefore surgeon consulted. Also patient became more short of breath, placed on BIPAP with no improvement then intubated 10/26/18 for acute resp failure and transferred to ICU. Obstruction series completed on 10/27 which showed improved but small bowel and stomach dilatation. Follow-up series on 10/28 showed no significant change since previous study. NG tube was removed due to patient not tolerating/refusing. Patient was placed back on BiPAP but decompensated on the night of 10/28/18 and had to be reintubated. Patient currently on mechanical ventilation.. Hospitalist Physical - Constitutional Vitals: Temp Pulse Resp BP Pulse Ox 97.9 F 107 H 24 118/33 100 11/02/18 08:00 11/02/18 10:00 11/02/18 10:00 11/02/18 10:00 11/02/18 10:00 General appearance: Present: other (intubated, opens eyes to commands) - EENT Eyes: Present: PERRL, EOM intact ENT: hearing intact, clear oral mucosa, dentition normal - Neck Neck: Present: supple, normal ROM - Respiratory Respiratory effort: normal Respiratory: bilateral: CTA - Cardiovascular Rhythm: regular Heart Sounds: Present: S1 & S2. Absent: gallop, rub - Extremities Extremities: no ischemia, No edema, Full ROM - Abdominal General gastrointestinal: soft, non-tender, non-distended, normal bowel sounds - Integumentary Integumentary: Present: clear, warm, dry - Neurologic Neurologic: CNII-XII intact, moves all extremities Results - Labs CBC & Chem 7: 11/01/18 06:40 11/02/18 05:00 Labs: Laboratory Last Values WBC 18.9 K/mm3 (4.5-11.0) H 11/01/18 06:40 RBC 3.63 M/mm3 (3.65-5.03) L 11/01/18 06:40 Hgb 11.6 gm/dl (10.1-14.3) 11/01/18 06:40 Hct 34.9 % (30.3-42.9) 11/01/18 06:40 MCV 96 fl (79-97) 11/01/18 06:40 MCH 32 pg (28-32) 11/01/18 06:40 MCHC 33 % (30-34) 11/01/18 06:40 RDW 15.0 % (13.2-15.2) 11/01/18 06:40 Plt Count 64 K/mm3 (140-440) L 11/01/18 06:40 Lymph % (Auto) 10.2 % (13.4-35.0) L 10/23/18 04:32 [place] % (Auto) 14.7 % (0.0-7.3) H 10/23/18 04:32 Eos % (Auto) 0.1 % (0.0-4.3) 10/23/18 04:32 Baso % (Auto) 0.1 % (0.0-1.8) 10/23/18 04:32 Lymph # 0.7 K/mm3 (1.2-5.4) L 10/23/18 04:32 [place] # 1.0 K/mm3 (0.0-0.8) H 10/23/18 04:32 Eos # 0.0 K/mm3 (0.0-0.4) 10/23/18 04:32 Baso # 0.0 K/mm3 (0.0-0.1) 10/23/18 04:32 Add Manual Diff Complete 11/01/18 06:40 Total Counted 100 11/01/18 06:40 Seg Neutrophils % [place] 11/01/18 06:40 Seg Neuts % (Manual) 98.0 % (40.0-70.0) H 11/01/18 06:40 0 % 11/01/18 06:40 1.0 % (13.4-35.0) L 11/01/18 06:40 Reactive Lymphs % (Man) 0 % 11/01/18 06:40 0 % (0.0-7.3) 11/01/18 06:40 0 % (0.0-4.3) 11/01/18 06:40 0 % (0.0-1.8) 11/01/18 06:40 1.0 % 11/01/18 06:40 0 % 11/01/18 06:40 0 % 11/01/18 06:40 0 % 11/01/18 06:40 Nucleated RBC % Not Reportable 11/01/18 06:40 Seg Neutrophils # 5.2 K/mm3 (1.8-7.7) 10/23/18 04:32 Seg Neutrophils # Man 18.5 K/mm3 (1.8-7.7) H 11/01/18 06:40 Band Neutrophils # 0.0 K/mm3 11/01/18 06:40 0.2 K/mm3 (1.2-5.4) L 11/01/18 06:40 Abs React Lymphs (Man) 0.0 K/mm3 11/01/18 06:40 0.0 K/mm3 (0.0-0.8) 11/01/18 06:40 0.0 K/mm3 (0.0-0.4) 11/01/18 06:40 0.0 K/mm3 (0.0-0.1) 11/01/18 06:40 0.2 K/mm3 11/01/18 06:40 0.0 K/mm3 11/01/18 06:40 0.0 K/mm3 11/01/18 06:40 Blast Cells # 0.0 K/mm3 11/01/18 06:40 WBC Morphology Not Reportable 11/01/18 06:40 Hypersegmented Neuts Not Reportable 11/01/18 06:40 Hyposegmented Neuts Not Reportable 11/01/18 06:40 Hypogranular Neuts Not Reportable 11/01/18 06:40 Not Reportable 11/01/18 06:40 Not Reportable 11/01/18 06:40 Not Reportable 11/01/18 06:40 Not Reportable 11/01/18 06:40 Not Reportable 11/01/18 06:40 Not Reportable 11/01/18 06:40 Consistent w auto 11/01/18 06:40 Not Reportable 11/01/18 06:40 Plt Clumps, EDTA Not Reportable 11/01/18 06:40 Not Reportable 11/01/18 06:40 Not Reportable 11/01/18 06:40 Not Reportable 11/01/18 06:40 Plt Morphology Comment Not Reportable 11/01/18 06:40 RBC Morphology Normal 11/01/18 06:40 Dimorphic RBCs Not Reportable 11/01/18 06:40 Not Reportable 11/01/18 06:40 Not Reportable 11/01/18 06:40 Not Reportable 11/01/18 06:40 Not Reportable 11/01/18 06:40 Not Reportable 11/01/18 06:40 Not Reportable 11/01/18 06:40 Not Reportable 11/01/18 06:40 Not Reportable 11/01/18 06:40 Not Reportable 11/01/18 06:40 Not Reportable 11/01/18 06:40 Not Reportable 11/01/18 06:40 Not Reportable 11/01/18 06:40 Not Reportable 11/01/18 06:40 Not Reportable 11/01/18 06:40 Not Reportable 11/01/18 06:40 Not Reportable 11/01/18 06:40 Not Reportable 11/01/18 06:40 Not Reportable 11/01/18 06:40 Not Reportable 11/01/18 06:40 Acanthocytes (Spur) Not Reportable 11/01/18 06:40 Rouleaux Not Reportable 11/01/18 06:40 Not Reportable 11/01/18 06:40 Not Reportable 11/01/18 06:40 Not Reportable 11/01/18 06:40 Not Reportable 11/01/18 06:40 Hem Pathologist Commnt No 11/01/18 06:40 POC ABG pH 7.244 (7.35-7.45) L 11/02/18 04:32 POC ABG pCO2 33.2 (35-45) L 11/02/18 04:32 POC ABG pO2 123 (80-105) H 11/02/18 04:32 POC ABG HCO3 14.4 (22-26 mml/L) 11/02/18 04:32 POC ABG Total CO2 15 (23-27mmol/L) 11/02/18 04:32 POC ABG O2 Sat 98 11/02/18 04:32 POC ABG Base Excess -13 ((-2) - (+3)mmol/L) 11/02/18 04:32 35 % 11/02/18 04:32 Sodium 141 mmol/L (137-145) 11/02/18 05:00 Potassium 3.0 mmol/L (3.6-5.0) L 11/02/18 05:00 Chloride 114.1 mmol/L (98-107) H 11/02/18 05:00 Carbon Dioxide 15 mmol/L (22-30) L 11/02/18 05:00 15 mmol/L 11/02/18 05:00 BUN 47 mg/dL (7-17) H 11/02/18 05:00 0.9 mg/dL (0.7-1.2) 11/02/18 05:00 Estimated GFR > 60 ml/min 11/02/18 05:00 52 % 11/02/18 05:00 Glucose 127 mg/dL (65-100) H 11/02/18 05:00 POC Glucose 118 (70-105) H 11/02/18 05:29 Lactic Acid 1.60 mmol/L (0.7-2.0) 10/26/18 15:03 Calcium 7.7 mg/dL (8.4-10.2) L 11/02/18 05:00 Phosphorus 3.50 mg/dL (2.5-4.5) 11/02/18 05:00 Magnesium 1.60 mg/dL (1.7-2.3) L 11/02/18 05:00 0.40 mg/dL (0.1-1.2) 10/22/18 15:54 AST 25 units/L (5-40) 10/22/18 15:54 ALT 22 units/L (7-56) 10/22/18 15:54 129 units/L (35-129) 10/22/18 15:54 7.6 g/dL (6.3-8.2) 10/22/18 15:54 3.4 g/dL (3.9-5) L 10/22/18 15:54 0.8 % 10/22/18 15:54 Triglycerides 132 mg/dL (2-149) 11/01/18 06:40 10 units/L (13-60) L 10/22/18 15:54 TSH 3.150 mlU/mL (0.270-4.200) 10/31/18 17:00 Free T4 0.49 ng/dL (0.76-1.46) L 10/31/18 17:00 Dulce (Yellow) 10/22/18 19:10 Clear (Clear) 10/22/18 19:10 5.0 (5.0-7.0) 10/22/18 19:10 Ur Specific [place] 1.018 (1.003-1.030) 10/22/18 19:10 30 mg/dl mg/dL (Negative) 10/22/18 19:10 Neg mg/dL (Negative) 10/22/18 19:10 Tr mg/dL (Negative) 10/22/18 19:10 Neg (Negative) 10/22/18 19:10 Neg (Negative) 10/22/18 19:10 Neg (Negative) 10/22/18 19:10 < 2.0 mg/dL (<2.0) 10/22/18 19:10 Ur Leukocyte Esterase Neg (Negative) 10/22/18 19:10 1.0 /HPF (0.0-6.0) 10/22/18 19:10 3.0 /HPF (0.0-6.0) 10/22/18 19:10 Active Medications - Current Medications Current Medications: Generic Name Dose Route Start Last Admin Trade Name Freq PRN Reason Stop Dose Admin Acetaminophen 650 mg 10/22/18 20:10 Tylenol PO Q4H PRN Pain MILD(1-3)/Fever >100.5/PORTER Albuterol 2.5 mg 10/22/18 20:14 10/28/18 06:34 Proventil IH 2.5 mg Q4HRT PRN Administration Shortness Of Breath Albuterol/Ipratropium 1 ampul 10/28/18 12:00 11/02/18 07:53 Duoneb *Not For Prn Use* IH 1 ampul Q4HRT RICK Administration Budesonide 0.5 mg 10/23/18 08:00 11/02/18 07:53 Pulmicort IH 0.5 mg Q12HRT RICK Administration Dextrose 50 ml 10/26/18 23:40 10/27/18 00:20 D50w (25gm) Syringe IV 50 ml PRN PRN Administration Hypoglycemia Hydralazine HCl 10 mg 10/22/18 21:41 Apresoline IV Q4HR PRN Blood Pressure Fentanyl Citrate 2,000 mcg in 100 mls @ 1.2 mls/hr 10/29/18 11:00 11/01/18 12:42 Fentanyl Drip Premix IV 0.5 mcg/kg/hr TITR RICK 1.2 mls/hr Administration Protocol 0.5 MCG/KG/HR Metronidazole 500 mg in 100 mls @ 100 mls/hr 10/30/18 14:00 11/01/18 22:12 Flagyl 500 Mg/100 Ml IV 100 mls/hr Q8HR RICK Administration Protocol Cefepime HCl 2 gm in 100 mls @ 200 mls/hr 10/31/18 22:00 11/01/18 22:11 Maxipime/Ns 2 Gm/100 Ml IV 200 mls/hr Q12HR [facility] Administration Protocol Levofloxacin/Dextrose 500 mg in 100 mls @ 100 mls/hr 10/31/18 17:00 11/01/18 10:50 Levaquin 500mg/100ml IV Infused Q24HR [facility] Infusion Protocol Amino Acids/Electrolytes/Dextrose 2,400 mls @ 100 mls/hr 11/01/18 20:00 11/01/18 20:31 Tpn Adult IV 11/02/18 19:59 100 mls/hr DAILY@2000 [facility] Administration Protocol Sodium Bicarbonate 150 meq/ 1,150 mls @ 75 mls/hr 11/02/18 06:00 Dextrose IV DIRECT RICK Potassium Chloride 20 meq in 100 mls @ 100 mls/hr 11/02/18 10:00 Kcl 20meq/100ml IV 11/02/18 10:59 ONCE ONE Micafungin Sodium 100 mg/ 100 mls @ 100 mls/hr 11/02/18 10:00 Sodium Chloride IV QDAY [facility] Protocol Insulin Human Lispro 0 unit 10/29/18 12:00 11/02/18 05:45 Humalog SUB-Q Not Given Q6HR [facility] Protocol Lorazepam 0.5 mg 10/26/18 22:44 10/26/18 23:14 Ativan IV 0.5 mg Q4H PRN Administration Anxiety Metoprolol Tartrate 5 mg 10/31/18 14:00 11/02/18 08:54 Lopressor IV 5 mg TID [facility] Administration Morphine Sulfate 2 mg 10/24/18 13:39 10/29/18 05:46 Morphine IV 2 mg Q4H PRN Administration Pain, Moderate (4-6) Ondansetron HCl 4 mg 10/24/18 10:05 10/25/18 17:26 Zofran IV 4 mg Q6H PRN Administration Nausea And Vomiting Pantoprazole Sodium 40 mg 10/30/18 22:00 11/01/18 22:10 Protonix IV 40 mg BID [facility] Administration Phenol 1 spray 10/28/18 10:16 Chloraseptic MM PRN PRN Sore Throat Promethazine HCl 25 mg 10/22/18 20:10 10/22/18 21:21 Phenergan VA 25 mg Q6H PRN Administration Nausea And Vomiting Sodium Chloride 10 ml 10/22/18 22:00 11/01/18 22:11 Sodium Chloride Flush Syringe 10 Ml IV 10 ml BID RICK Administration Sodium Chloride 10 ml 10/22/18 20:10 10/24/18 18:32 Sodium Chloride Flush Syringe 10 Ml IV 10 ml PRN PRN Administration LINE FLUSH Nutrition/Malnutrition Assess - Dietary Evaluation Nutrition/Malnutrition Findings: Nutrition Notes Start: 10/23/18 17:03 Freq: Status: Active Protocol: Document 11/01/18 14:11 RM (Rec: 11/01/18 14:17 RM [id number]) Nutrition Notes Initial or Follow up Reassessment Current Diagnosis Acute Kidney Injury,COPD, Sepsis,Hypertension Other Pertinent Diagnosis partial SBO, lupus, opiod dependence, SIRS Current Diet PPN at 100 ml/hr Labs/Tests K 3.5 Ca 7.3 Mg 10 Pertinent Medications 10/31/18 30 mmol Kphos Height 5 ft 3 in Weight 68 kg Free[place] Body Weight (kg) 52.27 BMI 26.5 Subjective/Other Information PPN day 2. Percent of energy/protein needs met: 48%/100% Burn Absent Trauma Absent #1 Nutrition Diagnosis Inadequate oral intake Diagnosis Progress(for reassessment Continues documentation) Is patient on ventilator? Yes Is Patient Ambulatory and/or Out of Bed No REE-([facility]-confined to bed) 1397.052 Kcal/Kg value to use for calculation 25 Approximate Energy Requirements Using 1700 kcal/Kg Calculation Used for Recommendations Kcal/kg Additional Notes Protein needs are 58-96g (1.2- 2g/kg) Fluid needs are 1ml/kcal Nutrition Intervention Change Diet Order: PPN Nutrition Support: PPN at 100ml/hr: 50 mEq K, 15 mEq Ca, 10 mEq Mg Kcal 808 Protein (gm) 100 Carbohydrates (gm) 120 Fat (gm) 0 Fluid (mL) 2,400 Fiber (gm) 0 Goal #1 Meet kcal and protein needs as best as possible Anticipated Discharge Needs: Unable to determine at this time Follow-Up By: 11/02/18 Additional Comments Follow for labs in AM: BMP, Mg , Phos
[2018-11-02] MEDS: MAXIPIME/NS 2 GM/100 ML 2 GM/100 ML BAG IV SCH ×2 (11:30→22:17)
--- NOTE | 2018-11-02 11:31 | Progress Note ---
Assessment and Plan - Patient Problems (1) Partial small bowel obstruction Current Visit: Yes Status: Acute Plan to address problem: 73 yo F with 1. pSBO - resolved 2. contained gastric perforation 3. VDRF 4. aspiration PNA 5. sepsis 6. Fungemia in blood Obstruction series 10/27 - improved small bowel and stomach dilatation. Obstructions series 10/28 - no significant change since previous study. NGT has been removed Obstruction series 10/29 - relatively normal bowel gas pattern. NGT in place Ct scan A/P from admission reviewed with Dr. Garces - LindyBO. Mesenteric vessels patent. Ct scan C/A/P 10/30 - Images reviewed with Dr. Garces - pSBO resolved, no evidence for bowel ischemia. Small contained gastric perforation at lesser curve. No gross free air or contrast extrav. Ansarca. Bilateral pleural effusions. Bilateral upper lobes infiltrates. Plan: 1. NPO 2. continue NGT to Low continuous WS - NOTHING PER NGT for now. Will reimage stomach soon to make sure there is no leak. 3. strict I/Os 4. gentle IVF 5. prn pain control 6. DVT ppx 7. vent management per ICU 8. c/w abx per ID 9. PPI BID Plan discussed with patient and at bedside. Time=10min Subjective Date of service: 11/02/18 Patient Reports: Positive: bowel movement, other (recent finding of fungemia in blood. no abdominal pain. ) Objective Vital Signs - 12hr 11/01/18 11/02/18 11/02/18 23:46 00:00 00:31 Temperature 97.5 F L Pulse Rate 99 H 105 H Pulse Rate [ Anterior Bilateral Throughout] Pulse Rate [ 99 H From Monitor] Respiratory 24 22 Rate Respiratory Rate [Anterior Bilateral Throughout] Blood Pressure 119/59 124/62 O2 Sat by Pulse 99 99 Oximetry 11/02/18 11/02/18 11/02/18 01:01 01:31 02:00 Temperature Pulse Rate 106 H 94 H 99 H Pulse Rate [ Anterior Bilateral Throughout] Pulse Rate [ From Monitor] Respiratory 25 H 24 24 Rate Respiratory Rate [Anterior Bilateral Throughout] Blood Pressure 105/18 94/38 94/34 O2 Sat by Pulse 100 100 100 Oximetry 11/02/18 11/02/18 11/02/18 02:30 03:01 03:13 Temperature Pulse Rate 98 H 129 H 130 H Pulse Rate [ Anterior Bilateral Throughout] Pulse Rate [ From Monitor] Respiratory 24 21 Rate Respiratory Rate [Anterior Bilateral Throughout] Blood Pressure 110/40 113/66 113/66 O2 Sat by Pulse 100 100 100 Oximetry 11/02/18 11/02/18 11/02/18 03:15 03:31 03:33 Temperature Pulse Rate 130 H Pulse Rate [ 130 H 130 H Anterior Bilateral Throughout] Pulse Rate [ From Monitor] Respiratory 18 Rate Respiratory 24 24 Rate [Anterior Bilateral Throughout] Blood Pressure 102/41 O2 Sat by Pulse 100 Oximetry 11/02/18 11/02/18 11/02/18 03:37 04:00 04:31 Temperature 97.4 F L Pulse Rate 109 H 108 H Pulse Rate [ Anterior Bilateral Throughout] Pulse Rate [ 100 H From Monitor] Respiratory 15 24 Rate Respiratory Rate [Anterior Bilateral Throughout] Blood Pressure 112/43 114/38 O2 Sat by Pulse 100 100 Oximetry 11/02/18 11/02/18 11/02/18 05:01 05:31 06:00 Temperature Pulse Rate 110 H 115 H 111 H Pulse Rate [ Anterior Bilateral Throughout] Pulse Rate [ From Monitor] Respiratory 26 H 22 21 Rate Respiratory Rate [Anterior Bilateral Throughout] Blood Pressure 116/44 113/71 110/69 O2 Sat by Pulse 99 99 99 Oximetry 11/02/18 11/02/18 11/02/18 06:31 07:01 07:30 Temperature Pulse Rate 123 H 118 H 119 H Pulse Rate [ Anterior Bilateral Throughout] Pulse Rate [ From Monitor] Respiratory 24 26 H 24 Rate Respiratory Rate [Anterior Bilateral Throughout] Blood Pressure 133/75 119/41 126/99 O2 Sat by Pulse 99 100 98 Oximetry 11/02/18 11/02/18 11/02/18 07:53 08:00 08:01 Temperature 97.9 F Pulse Rate 112 H 112 H Pulse Rate [ 117 H Anterior Bilateral Throughout] Pulse Rate [ 112 H From Monitor] Respiratory 24 23 Rate Respiratory 24 Rate [Anterior Bilateral Throughout] Blood Pressure 101/20 101/20 O2 Sat by Pulse 100 100 Oximetry 11/02/18 11/02/18 11/02/18 08:31 09:01 09:31 Temperature Pulse Rate 117 H 93 H 92 H Pulse Rate [ Anterior Bilateral Throughout] Pulse Rate [ From Monitor] Respiratory 24 24 25 H Rate Respiratory Rate [Anterior Bilateral Throughout] Blood Pressure 123/36 136/31 103/43 O2 Sat by Pulse 100 99 100 Oximetry 11/02/18 10:00 Temperature Pulse Rate 95 H Pulse Rate [ Anterior Bilateral Throughout] Pulse Rate [ From Monitor] Respiratory 24 Rate Respiratory Rate [Anterior Bilateral Throughout] Blood Pressure 118/33 O2 Sat by Pulse 100 Oximetry - General physical appearance no distress, no pain - Abdomen soft, not tender, not distended, not guarding, not rigid - Labs 11/01/18 06:40 11/02/18 05:00 Diabetes panel 11/02/18 Range/Units 05:00 Sodium 141 (137-145) mmol/L Potassium 3.0 L (3.6-5.0) mmol/L Chloride 114.1 H (98-107) mmol/L Carbon Dioxide 15 L (22-30) mmol/L BUN 47 H (7-17) mg/dL Creatinine 0.9 (0.7-1.2) mg/dL Glucose 127 H (65-100) mg/dL Calcium 7.7 L (8.4-10.2) mg/dL Calcium panel 11/02/18 Range/Units 05:00 Calcium 7.7 L (8.4-10.2) mg/dL Phosphorus 3.50 (2.5-4.5) mg/dL Pituitary panel 11/02/18 Range/Units 05:00 Sodium 141 (137-145) mmol/L Potassium 3.0 L (3.6-5.0) mmol/L Chloride 114.1 H (98-107) mmol/L Carbon Dioxide 15 L (22-30) mmol/L BUN 47 H (7-17) mg/dL Creatinine 0.9 (0.7-1.2) mg/dL Glucose 127 H (65-100) mg/dL Calcium 7.7 L (8.4-10.2) mg/dL Adrenal panel 11/02/18 Range/Units 05:00 Sodium 141 (137-145) mmol/L Potassium 3.0 L (3.6-5.0) mmol/L Chloride 114.1 H (98-107) mmol/L Carbon Dioxide 15 L (22-30) mmol/L BUN 47 H (7-17) mg/dL Creatinine 0.9 (0.7-1.2) mg/dL Glucose 127 H (65-100) mg/dL Calcium 7.7 L (8.4-10.2) mg/dL
--- NOTE | 2018-11-02 12:11 | Progress Note ---
Assessment and Plan Presently w/ sr (no recent pauses or adama noted) Not a candidate for systemic anticoagulation given recent gastic ulcer/perf stable cv status f/u tte will follow d/w at bedside - Patient Problems (1) ADWOA (acute kidney injury) Current Visit: Yes Status: Acute (2) Acute renal failure Current Visit: Yes Status: Acute (3) Acute respiratory failure with hypoxia Current Visit: Yes Status: Acute (4) Hypokalemia Current Visit: Yes Status: Acute (5) Paroxysmal atrial flutter Current Visit: Yes Status: Acute (6) Partial small bowel obstruction Current Visit: Yes Status: Acute (7) Perforated gastric ulcer Current Visit: Yes Status: Acute (8) Tachy-adama syndrome Current Visit: Yes Status: Acute (9) COPD (chronic obstructive pulmonary disease) Current Visit: Yes Status: Chronic (10) History of hypertension Current Visit: Yes Status: Chronic Subjective Principal diagnosis: colitis, N/V/D Interval history: intubated, awake/alert, at bedside appears comfortable Objective Vital Signs Temp Pulse Pulse Pulse Resp Resp BP 11/02/18 11:37 104 H 24 11/02/18 10:00 95 H 24 118/33 11/02/18 09:31 92 H 25 H 103/43 11/02/18 09:01 93 H 24 136/31 11/02/18 08:31 117 H 24 123/36 11/02/18 08:01 112 H 23 101/20 11/02/18 08:00 97.9 F 112 H 24 11/02/18 07:53 112 H 117 H 24 101/20 11/02/18 07:30 119 H 24 126/99 11/02/18 07:01 118 H 26 H 119/41 11/02/18 06:31 123 H 24 133/75 11/02/18 06:00 111 H 21 110/69 11/02/18 05:31 115 H 22 113/71 11/02/18 05:01 110 H 26 H 116/44 11/02/18 04:31 108 H 24 114/38 11/02/18 04:00 109 H 100 H 15 112/43 11/02/18 03:37 97.4 F L 11/02/18 03:33 130 H 24 11/02/18 03:31 130 H 18 102/41 11/02/18 03:15 130 H 24 06/02/19 03:13 130 H 113/66 11/02/18 03:01 129 H 21 113/66 11/02/18 02:30 98 H 24 110/40 11/02/18 02:00 99 H 24 94/34 11/02/18 01:31 94 H 24 94/38 11/02/18 01:01 106 H 25 H 105/18 11/02/18 00:31 105 H 22 124/62 11/02/18 00:00 99 H 99 H 24 119/59 11/01/18 23:46 97.5 F L 11/01/18 23:30 122 H 25 H 129/59 11/01/18 23:17 119 H 116 H 25 H 24 107/61 11/01/18 23:05 121 H 24 11/01/18 23:03 121 H 107/61 11/01/18 23:00 120 H 20 107/61 11/01/18 22:30 118 H 24 115/44 11/01/18 22:00 106 H 24 110/49 11/01/18 21:30 100 H 24 110/56 11/01/18 21:00 95 H 22 107/37 11/01/18 20:31 106 H 24 109/41 11/01/18 20:12 105 H 24 11/01/18 20:01 108 H 22 119/38 11/01/18 20:00 97.3 F L 108 H 22 11/01/18 19:48 110 H 24 11/01/18 19:46 110 H 115/40 11/01/18 19:31 112 H 23 85/64 11/01/18 19:01 117 H 24 89/47 11/01/18 18:31 101 H 27 H 106/32 11/01/18 18:00 97 H 24 108/41 11/01/18 17:30 102 H 24 98/48 11/01/18 17:01 105 H 24 89/53 11/01/18 16:44 105 H 95/42 11/01/18 16:31 102 H 24 95/42 11/01/18 16:23 99 H 24 11/01/18 16:13 105 H 24 11/01/18 16:01 104 H 24 127/52 11/01/18 16:00 97.6 F 101 H 21 11/01/18 15:31 108 H 22 114/53 11/01/18 15:00 100 H 24 102/44 11/01/18 14:31 100 H 23 109/55 11/01/18 14:01 122 H 120/74 11/01/18 14:00 120 H 25 H 109/54 11/01/18 13:30 122 H 23 115/62 11/01/18 13:01 125 H 22 120/52 11/01/18 12:30 130 H 18 120/52 Pulse Ox 11/02/18 11:37 11/02/18 10:00 100 11/02/18 09:31 100 11/02/18 09:01 99 11/02/18 08:31 100 11/02/18 08:01 11/02/18 08:00 100 11/02/18 07:53 100 11/02/18 07:30 98 11/02/18 07:01 100 11/02/18 06:31 99 11/02/18 06:00 99 11/02/18 05:31 99 11/02/18 05:01 99 11/02/18 04:31 100 11/02/18 04:00 100 11/02/18 03:37 11/02/18 03:33 11/02/18 03:31 100 11/02/18 03:15 11/02/18 03:13 100 11/02/18 03:01 100 11/02/18 02:30 100 11/02/18 02:00 100 11/02/18 01:31 100 11/02/18 01:01 100 11/02/18 00:31 99 11/02/18 00:00 99 11/01/18 23:46 11/01/18 23:30 99 11/01/18 23:17 100 11/01/18 23:05 11/01/18 23:03 99 11/01/18 23:00 98 11/01/18 22:30 100 11/01/18 22:00 99 11/01/18 21:30 100 11/01/18 21:00 100 11/01/18 20:31 99 11/01/18 20:12 11/01/18 20:01 100 11/01/18 20:00 100 11/01/18 19:48 11/01/18 19:46 100 11/01/18 19:31 99 11/01/18 19:01 99 11/01/18 18:31 100 11/01/18 18:00 11/01/18 17:30 11/01/18 17:01 11/01/18 16:44 11/01/18 16:31 11/01/18 16:23 11/01/18 16:13 11/01/18 16:01 11/01/18 16:00 11/01/18 15:31 11/01/18 15:00 11/01/18 14:31 11/01/18 14:01 11/01/18 14:00 11/01/18 13:30 11/01/18 13:01 11/01/18 12:30 100 - Physical Examination HEENT: Positive: PERRL Neck: Positive: neck supple, trachea midline Neuro: Positive: Other (intubated, opens eyes to commands) Skin: Negative: Rash Musculoskeletal: No Pain Extremities: Absent: edema - Labs and Meds Comprehensive Metabolic Panel 11/02/18 Range/Units 05:00 Sodium 141 (137-145) mmol/L Potassium 3.0 L (3.6-5.0) mmol/L Chloride 114.1 H (98-107) mmol/L Carbon Dioxide 15 L (22-30) mmol/L BUN 47 H (7-17) mg/dL Creatinine 0.9 (0.7-1.2) mg/dL Glucose 127 H (65-100) mg/dL Calcium 7.7 L (8.4-10.2) mg/dL - Imaging and Cardiology EKG: report reviewed, image reviewed Echo: pending - EKG Sinus rhythms and dysrhythmias: sinus rhythm - Allied health notes Allied health notes reviewed: nursing
[2018-11-02] MEDS: MYCAMINE 100 MG in NACL 0.9% 100 ML IV SCH (12:52)
[2018-11-02] MEDS ORDERED: D5W 1,000 ML IV SCH (21:00)
[2018-11-03] MEDS: DUONEB *Not for PRN Use IH SCH ×6 (04:04→23:27)
[2018-11-03] MEDS: HumaLOG SUB-Q SCH ×5 (05:45→23:44)
[2018-11-03] MEDS: FLAGYL 500 MG/100 ML 500 MG/100 ML BAG IV SCH ×3 (06:22→21:54)
[2018-11-03] MEDS: PULMICORT IH SCH ×2 (07:41→20:04)
[2018-11-03] MEDS: LOPRESSOR IV SCH ×3 (08:50→20:12)
--- NOTE | 2018-11-03 09:18 | Progress Note ---
Assessment and Plan (1) Partial small bowel obstruction Current Visit: Yes Status: Acute Plan to address problem: 73 yo F with 1. pSBO - resolved 2. contained gastric perforation 3. VDRF 4. aspiration PNA 5. sepsis 6. Fungemia in blood Obstruction series 10/27 - improved small bowel and stomach dilatation. Obstructions series 10/28 - no significant change since previous study. NGT has been removed Obstruction series 10/29 - relatively normal bowel gas pattern. NGT in place Ct scan A/P from admission reviewed with Dr. Garces - LindyBO. Mesenteric vessels patent. Ct scan C/A/P 10/30 - Images reviewed with Dr. Garces - pSBO resolved, no evidence for bowel ischemia. Small contained gastric perforation at lesser curve. No gross free air or contrast extrav. Ansarca. Bilateral pleural effusions. Bilateral upper lobes infiltrates. Plan: 1. NPO 2. continue NGT to Low continuous WS - NOTHING PER NGT for now. Will reimage stomach when pulm status is more stable to make sure there is no leak. 3. strict I/Os 4. gentle IVF 5. prn pain control 6. DVT ppx 7. vent management per ICU 8. c/w abx per ID 9. PPI BID 10. TPN on hold due to fungemia. Will discuss replacement of lines and resumption of TPN with ID. Plan discussed with patient and at bedside. Thank you, please call with questions. Subjective Date of service: 11/03/18 Narrative: Pt seen and examined. Still on vent. Denies abdominal pain. No f/c. Objective Vital Signs - 12hr 11/02/18 11/02/18 11/02/18 21:31 22:00 22:01 Temperature Pulse Rate 93 H 102 H 101 H Pulse Rate [ Anterior Bilateral Throughout] Pulse Rate [ Anterior Bilateral] Pulse Rate [ From Monitor] Respiratory 28 H 28 H Rate Respiratory Rate [Anterior Bilateral Throughout] Respiratory Rate [Anterior Bilateral] Blood Pressure 111/24 110/47 O2 Sat by Pulse 97 100 Oximetry 11/02/18 11/02/18 11/02/18 22:30 23:01 23:15 Temperature Pulse Rate 96 H 102 H 93 H Pulse Rate [ Anterior Bilateral Throughout] Pulse Rate [ Anterior Bilateral] Pulse Rate [ From Monitor] Respiratory 28 H 25 H 28 H Rate Respiratory Rate [Anterior Bilateral Throughout] Respiratory Rate [Anterior Bilateral] Blood Pressure 131/31 121/43 121/43 O2 Sat by Pulse 100 100 100 Oximetry 11/02/18 11/02/18 11/02/18 23:30 23:42 23:54 Temperature 98.3 F Pulse Rate 100 H 91 H Pulse Rate [ 100 H Anterior Bilateral Throughout] Pulse Rate [ Anterior Bilateral] Pulse Rate [ From Monitor] Respiratory 28 H Rate Respiratory 28 H Rate [Anterior Bilateral Throughout] Respiratory Rate [Anterior Bilateral] Blood Pressure 111/49 111/49 O2 Sat by Pulse 100 100 Oximetry 11/03/18 11/03/18 11/03/18 00:00 00:01 00:05 Temperature Pulse Rate 95 H Pulse Rate [ 99 H Anterior Bilateral Throughout] Pulse Rate [ Anterior Bilateral] Pulse Rate [ 95 H From Monitor] Respiratory 28 H 28 H Rate Respiratory 28 H Rate [Anterior Bilateral Throughout] Respiratory Rate [Anterior Bilateral] Blood Pressure 101/53 O2 Sat by Pulse 100 100 Oximetry 11/03/18 11/03/18 11/03/18 00:31 01:00 01:31 Temperature Pulse Rate 103 H 99 H 96 H Pulse Rate [ Anterior Bilateral Throughout] Pulse Rate [ Anterior Bilateral] Pulse Rate [ From Monitor] Respiratory 29 H 28 H 28 H Rate Respiratory Rate [Anterior Bilateral Throughout] Respiratory Rate [Anterior Bilateral] Blood Pressure 114/43 107/50 101/44 O2 Sat by Pulse 100 100 100 Oximetry 11/03/18 11/03/18 11/03/18 02:00 02:30 03:00 Temperature Pulse Rate 104 H 100 H 98 H Pulse Rate [ Anterior Bilateral Throughout] Pulse Rate [ Anterior Bilateral] Pulse Rate [ From Monitor] Respiratory 22 28 H 28 H Rate Respiratory Rate [Anterior Bilateral Throughout] Respiratory Rate [Anterior Bilateral] Blood Pressure 125/55 116/56 122/54 O2 Sat by Pulse 100 100 100 Oximetry 11/03/18 11/03/18 11/03/18 03:30 04:00 04:01 Temperature 97.1 F L Pulse Rate 105 H 98 H Pulse Rate [ Anterior Bilateral Throughout] Pulse Rate [ Anterior Bilateral] Pulse Rate [ 100 H From Monitor] Respiratory 22 28 H 28 H Rate Respiratory Rate [Anterior Bilateral Throughout] Respiratory Rate [Anterior Bilateral] Blood Pressure 139/38 116/54 O2 Sat by Pulse 100 100 100 Oximetry 11/03/18 11/03/18 11/03/18 04:04 04:14 04:15 Temperature Pulse Rate 106 H Pulse Rate [ 96 H 106 H Anterior Bilateral Throughout] Pulse Rate [ Anterior Bilateral] Pulse Rate [ From Monitor] Respiratory Rate Respiratory 28 H 28 H Rate [Anterior Bilateral Throughout] Respiratory Rate [Anterior Bilateral] Blood Pressure 116/54 O2 Sat by Pulse 100 Oximetry 11/03/18 11/03/18 11/03/18 04:31 05:00 05:30 Temperature Pulse Rate 100 H 98 H 104 H Pulse Rate [ Anterior Bilateral Throughout] Pulse Rate [ Anterior Bilateral] Pulse Rate [ From Monitor] Respiratory 28 H 28 H 28 H Rate Respiratory Rate [Anterior Bilateral Throughout] Respiratory Rate [Anterior Bilateral] Blood Pressure 116/54 112/40 126/42 O2 Sat by Pulse 100 100 100 Oximetry 11/03/18 11/03/18 11/03/18 06:01 06:30 07:00 Temperature Pulse Rate 99 H 94 H 105 H Pulse Rate [ Anterior Bilateral Throughout] Pulse Rate [ Anterior Bilateral] Pulse Rate [ From Monitor] Respiratory 27 H 28 H 28 H Rate Respiratory Rate [Anterior Bilateral Throughout] Respiratory Rate [Anterior Bilateral] Blood Pressure 110/22 127/43 127/62 O2 Sat by Pulse 100 100 100 Oximetry 11/03/18 11/03/18 11/03/18 07:31 07:41 07:45 Temperature Pulse Rate 97 H 101 H Pulse Rate [ Anterior Bilateral Throughout] Pulse Rate [ 107 H Anterior Bilateral] Pulse Rate [ From Monitor] Respiratory 28 H Rate Respiratory Rate [Anterior Bilateral Throughout] Respiratory 28 H Rate [Anterior Bilateral] Blood Pressure 110/34 110/34 O2 Sat by Pulse 99 100 Oximetry 11/03/18 11/03/18 11/03/18 07:55 08:00 08:31 Temperature 98.0 F Pulse Rate 104 H 122 H Pulse Rate [ 122 H Anterior Bilateral Throughout] Pulse Rate [ 122 H Anterior Bilateral] Pulse Rate [ From Monitor] Respiratory 28 H 28 H Rate Respiratory 28 H Rate [Anterior Bilateral Throughout] Respiratory 28 H Rate [Anterior Bilateral] Blood Pressure 134/56 154/55 O2 Sat by Pulse 100 100 Oximetry 11/03/18 09:01 Temperature Pulse Rate 125 H Pulse Rate [ Anterior Bilateral Throughout] Pulse Rate [ Anterior Bilateral] Pulse Rate [ From Monitor] Respiratory 28 H Rate Respiratory Rate [Anterior Bilateral Throughout] Respiratory Rate [Anterior Bilateral] Blood Pressure 109/39 O2 Sat by Pulse 100 Oximetry - General physical appearance Narrative Exam: Gen; Awake and alert on vent. NAD ENT: ETT and NGT in place. NGT with bilious drainage CV: S1, S2+ Resp; on vent. no wheezes Abd: soft, NT, ND Ext: no c/c/e - Labs 11/01/18 06:40 11/02/18 05:00
[2018-11-03] MEDS: LEVAQUIN 500MG/100ML 500 MG/100 ML BAG IV SCH (09:42)
[2018-11-03] MEDS: PROTONIX IV SCH ×2 (09:42→21:05)
[2018-11-03] MEDS: MAXIPIME/NS 2 GM/100 ML 2 GM/100 ML BAG IV SCH ×2 (09:42→21:05)
[2018-11-03] MEDS: SODIUM CHLORIDE FLUSH SYRINGE 10 ML IV SCH ×2 (09:46→21:05)
[2018-11-03] MEDS: MYCAMINE 100 MG in NACL 0.9% 100 ML IV SCH (09:47)
--- NOTE | 2018-11-03 10:09 | Progress Note ---
Assessment and Plan Assessment and plan: Gastric perforation. Repeat CT scan on 10/30 revealed pSBO resolved, no evidence for bowel ischemia. Small contained gastric perforation at lesser curve. No gross free air or contrast extravasation. Surgery recommends conservative management with continuing NGT, NPO, gentle IVF and when necessary pain control. Will reimage stomach when pulm status is more stable to make sure there is no leak. Sepsis/fungemia. Continue antibiotics/antifungals and follow cultures. ID following. May need to switch off PICC to other access, hold IV nutrition ? Thrombocytopenia. Etiology likely secondary to sepsis. Hematology consultation pending. Check HIT panel. Bilateral upper lobe/aspiration pneumonia. Sputum culture positive for Escherichia coli and stenotrophomonas. Continue antibiotics per ID. Partial small bowel obstruction. Continue NGT per surgery. Acute exacerbation COPD. Scheduled Duo Nebs and Pulmicort; albuterol when necessary Acute hypoxic respiratory failure. Patient was reintubated on 10/28/18 and currently on mechanical ventilation. Etiology secondary to COPD/pneumonia /sepsis. Wean mechanical ventilation per pulmonary. Hypokalemia. Replete potassium. Hypertension. IV hydralazine when necessary Lupus. Supportive care Fibromyalgia. supportive care History of opioid dependence ADWOA due to vasomotor nephropathy, now resolved The high probability of a clinically significant, sudden or life threatening deterioration of the [GI and respiratory] system(s) required my full and direct attention, intervention and personal management. The aggregate critical care time was [33] minutes. This time is in addition to time spent performing reported procedures but includes the following: [x] Data Review and interpretation [x] Patient assessment and monitoring of vital signs [x] Documentation [x] Medication orders and management History Interval history: Patient is 73-year-old female with history of hypertension, lupus, fibromyalgia, COPD, opioid dependence (follows Dr. Felix Muñiz at pain clinic) who pre sented to [facility] ED with complaints of intractable nausea, vomiting, diarrhea for 3 days. On initial presentation to the ED she was found to be tachycardiac with heart rate 113 BPM, leukocytosis with WBC 11.5, elevated BUN/Cr 51/2.1. Patient has history of COPD and at baseline does not require home oxygen use. She was admitted to [facility]. GI was consulted, she was evaluated. CT Abdomen revealed partial SBO versus ileus therefore surgeon consulted. Also patient became more short of breath, placed on BIPAP with no improvement then intubated 10/26/18 for acute resp failure and transferred to ICU. Obstruction series completed on 10/27 which showed improved but small bowel and stomach dilatation. Follow-up series on 10/28 showed no significant change since previous study. NG tube was removed due to patient not tolerating/refusing. Patient was placed back on BiPAP but decompensated on the night of 10/28/18 and had to be reintubated. Patient currently on mechanical ventilation. Patient has had further complications now with findings consistent with contained gastric perforation on repeat CT scan 10/30. Also, patient has cultures that were positive and consistent with fungemia. Hospitalist Physical - Constitutional Vitals: Temp Pulse Resp BP Pulse Ox 98.0 F 125 H 28 H 109/39 100 11/03/18 08:00 11/03/18 09:01 11/03/18 09:01 11/03/18 09:01 11/03/18 09:01 General appearance: Present: other (intubated, opens eyes to commands) - EENT Eyes: Present: PERRL, EOM intact ENT: hearing intact, clear oral mucosa, dentition normal - Neck Neck: Present: supple, normal ROM - Respiratory Respiratory effort: normal Respiratory: bilateral: CTA - Cardiovascular Rhythm: regular Heart Sounds: Present: S1 & S2. Absent: gallop, rub - Extremities Extremities: no ischemia, No edema, Full ROM - Abdominal General gastrointestinal: soft, non-tender, non-distended, normal bowel sounds - Integumentary Integumentary: Present: clear, warm, dry - Neurologic Neurologic: CNII-XII intact, moves all extremities Results - Labs CBC & Chem 7: 11/01/18 06:40 11/02/18 05:00 Labs: Laboratory Last Values WBC 18.9 K/mm3 (4.5-11.0) H 11/01/18 06:40 RBC 3.63 M/mm3 (3.65-5.03) L 11/01/18 06:40 Hgb 11.6 gm/dl (10.1-14.3) 11/01/18 06:40 Hct 34.9 % (30.3-42.9) 11/01/18 06:40 MCV 96 fl (79-97) 11/01/18 06:40 MCH 32 pg (28-32) 11/01/18 06:40 MCHC 33 % (30-34) 11/01/18 06:40 RDW 15.0 % (13.2-15.2) 11/01/18 06:40 Plt Count 64 K/mm3 (140-440) L 11/01/18 06:40 Lymph % (Auto) 10.2 % (13.4-35.0) L 10/23/18 04:32 [place] % (Auto) 14.7 % (0.0-7.3) H 10/23/18 04:32 Eos % (Auto) 0.1 % (0.0-4.3) 10/23/18 04:32 Baso % (Auto) 0.1 % (0.0-1.8) 10/23/18 04:32 Lymph # 0.7 K/mm3 (1.2-5.4) L 10/23/18 04:32 [place] # 1.0 K/mm3 (0.0-0.8) H 10/23/18 04:32 Eos # 0.0 K/mm3 (0.0-0.4) 10/23/18 04:32 Baso # 0.0 K/mm3 (0.0-0.1) 10/23/18 04:32 Add Manual Diff Complete 11/01/18 06:40 Total Counted 100 11/01/18 06:40 Seg Neutrophils % [employer] 11/01/18 06:40 Seg Neuts % (Manual) 98.0 % (40.0-70.0) H 11/01/18 06:40 0 % 11/01/18 06:40 1.0 % (13.4-35.0) L 11/01/18 06:40 Reactive Lymphs % (Man) 0 % 11/01/18 06:40 0 % (0.0-7.3) 11/01/18 06:40 0 % (0.0-4.3) 11/01/18 06:40 0 % (0.0-1.8) 11/01/18 06:40 1.0 % 11/01/18 06:40 0 % 11/01/18 06:40 0 % 11/01/18 06:40 0 % 11/01/18 06:40 Nucleated RBC % Not Reportable 11/01/18 06:40 Seg Neutrophils # 5.2 K/mm3 (1.8-7.7) 10/23/18 04:32 Seg Neutrophils # Man 18.5 K/mm3 (1.8-7.7) H 11/01/18 06:40 Band Neutrophils # 0.0 K/mm3 11/01/18 06:40 0.2 K/mm3 (1.2-5.4) L 11/01/18 06:40 Abs React Lymphs (Man) 0.0 K/mm3 11/01/18 06:40 0.0 K/mm3 (0.0-0.8) 11/01/18 06:40 0.0 K/mm3 (0.0-0.4) 11/01/18 06:40 0.0 K/mm3 (0.0-0.1) 11/01/18 06:40 0.2 K/mm3 11/01/18 06:40 0.0 K/mm3 11/01/18 06:40 0.0 K/mm3 11/01/18 06:40 Blast Cells # 0.0 K/mm3 11/01/18 06:40 WBC Morphology Not Reportable 11/01/18 06:40 Hypersegmented Neuts Not Reportable 11/01/18 06:40 Hyposegmented Neuts Not Reportable 11/01/18 06:40 Hypogranular Neuts Not Reportable 11/01/18 06:40 Not Reportable 11/01/18 06:40 Not Reportable 11/01/18 06:40 Not Reportable 11/01/18 06:40 Not Reportable 11/01/18 06:40 Not Reportable 11/01/18 06:40 Not Reportable 11/01/18 06:40 Consistent w auto 11/01/18 06:40 Not Reportable 11/01/18 06:40 Plt Clumps, EDTA Not Reportable 11/01/18 06:40 Not Reportable 11/01/18 06:40 Not Reportable 11/01/18 06:40 Not Reportable 11/01/18 06:40 Plt Morphology Comment Not Reportable 11/01/18 06:40 RBC Morphology Normal 11/01/18 06:40 Dimorphic RBCs Not Reportable 11/01/18 06:40 Not Reportable 11/01/18 06:40 Not Reportable 11/01/18 06:40 Not Reportable 11/01/18 06:40 Not Reportable 11/01/18 06:40 Not Reportable 11/01/18 06:40 Not Reportable 11/01/18 06:40 Not Reportable 11/01/18 06:40 Not Reportable 11/01/18 06:40 Not Reportable 11/01/18 06:40 Not Reportable 11/01/18 06:40 Not Reportable 11/01/18 06:40 Not Reportable 11/01/18 06:40 Not Reportable 11/01/18 06:40 Not Reportable 11/01/18 06:40 Not Reportable 11/01/18 06:40 Not Reportable 11/01/18 06:40 Not Reportable 11/01/18 06:40 Not Reportable 11/01/18 06:40 Not Reportable 11/01/18 06:40 Acanthocytes (Spur) Not Reportable 11/01/18 06:40 Rouleaux Not Reportable 11/01/18 06:40 Not Reportable 11/01/18 06:40 Not Reportable 11/01/18 06:40 Not Reportable 11/01/18 06:40 Not Reportable 11/01/18 06:40 Hem Pathologist Commnt No 11/01/18 06:40 POC ABG pH 7.355 (7.35-7.45) 11/03/18 04:14 POC ABG pCO2 30.3 (35-45) L 11/03/18 04:14 POC ABG pO2 129 (80-105) H 11/03/18 04:14 POC ABG HCO3 16.9 (22-26 mml/L) 11/03/18 04:14 POC ABG Total CO2 18 (23-27mmol/L) 11/03/18 04:14 POC ABG O2 Sat 99 11/03/18 04:14 POC ABG Base Excess -9 ((-2) - (+3)mmol/L) 11/03/18 04:14 35 % 11/03/18 04:14 Sodium 141 mmol/L (137-145) 11/02/18 05:00 Potassium 3.0 mmol/L (3.6-5.0) L 11/02/18 05:00 Chloride 114.1 mmol/L (98-107) H 11/02/18 05:00 Carbon Dioxide 15 mmol/L (22-30) L 11/02/18 05:00 15 mmol/L 11/02/18 05:00 BUN 47 mg/dL (7-17) H 11/02/18 05:00 0.9 mg/dL (0.7-1.2) 11/02/18 05:00 Estimated GFR > 60 ml/min 11/02/18 05:00 52 % 11/02/18 05:00 Glucose 127 mg/dL (65-100) H 11/02/18 05:00 POC Glucose 116 (70-105) H 11/03/18 05:34 Lactic Acid 1.60 mmol/L (0.7-2.0) 10/26/18 15:03 Calcium 7.7 mg/dL (8.4-10.2) L 11/02/18 05:00 Phosphorus 3.50 mg/dL (2.5-4.5) 11/02/18 05:00 Magnesium 1.60 mg/dL (1.7-2.3) L 11/02/18 05:00 0.40 mg/dL (0.1-1.2) 10/22/18 15:54 AST 25 units/L (5-40) 10/22/18 15:54 ALT 22 units/L (7-56) 10/22/18 15:54 129 units/L (35-129) 10/22/18 15:54 7.6 g/dL (6.3-8.2) 10/22/18 15:54 3.4 g/dL (3.9-5) L 10/22/18 15:54 0.8 % 10/22/18 15:54 Triglycerides 132 mg/dL (2-149) 11/01/18 06:40 10 units/L (13-60) L 10/22/18 15:54 TSH 3.150 mlU/mL (0.270-4.200) 10/31/18 17:00 Free T4 0.49 ng/dL (0.76-1.46) L 10/31/18 17:00 [place] (Yellow) 10/22/18 19:10 Clear (Clear) 10/22/18 19:10 5.0 (5.0-7.0) 10/22/18 19:10 Ur Specific [place] 1.018 (1.003-1.030) 10/22/18 19:10 30 mg/dl mg/dL (Negative) 10/22/18 19:10 Neg mg/dL (Negative) 10/22/18 19:10 Tr mg/dL (Negative) 10/22/18 19:10 Neg (Negative) 10/22/18 19:10 Neg (Negative) 10/22/18 19:10 Neg (Negative) 10/22/18 19:10 < 2.0 mg/dL (<2.0) 10/22/18 19:10 Ur Leukocyte Esterase Neg (Negative) 10/22/18 19:10 1.0 /HPF (0.0-6.0) 10/22/18 19:10 3.0 /HPF (0.0-6.0) 10/22/18 19:10 Active Medications - Current Medications Current Medications: Generic Name Dose Route Start Last Admin Trade Name Freq PRN Reason Stop Dose Admin Acetaminophen 650 mg 10/22/18 20:10 Tylenol PO Q4H PRN Pain MILD(1-3)/Fever >100.5/PORTER Albuterol 2.5 mg 10/22/18 20:14 10/28/18 06:34 Proventil IH 2.5 mg Q4HRT PRN Administration Shortness Of Breath Albuterol/Ipratropium 1 ampul 10/28/18 12:00 11/03/18 07:41 Duoneb *Not For Prn Use* IH 1 ampul Q4HRT RICK Administration Budesonide 0.5 mg 10/23/18 08:00 11/03/18 07:41 Pulmicort IH 0.5 mg Q12HRT RICK Administration Dextrose 50 ml 10/26/18 23:40 10/27/18 00:20 D50w (25gm) Syringe IV 50 ml PRN PRN Administration Hypoglycemia Hydralazine HCl 10 mg 10/22/18 21:41 Apresoline IV Q4HR PRN Blood Pressure Fentanyl Citrate 2,000 mcg in 100 mls @ 1.2 mls/hr 10/29/18 11:00 11/01/18 12:42 Fentanyl Drip Premix IV 0.5 mcg/kg/hr TITR RICK 1.2 mls/hr Administration Protocol 0.5 MCG/KG/HR Metronidazole 500 mg in 100 mls @ 100 mls/hr 10/30/18 14:00 11/03/18 06:22 Flagyl 500 Mg/100 Ml IV 100 mls/hr Q8HR RICK Administration Protocol Cefepime HCl 2 gm in 100 mls @ 200 mls/hr 10/31/18 22:00 11/03/18 09:42 Maxipime/Ns 2 Gm/100 Ml IV 200 mls/hr Q12HR RICK Administration Protocol Levofloxacin/Dextrose 500 mg in 100 mls @ 100 mls/hr 10/31/18 17:00 11/03/18 09:42 Levaquin 500mg/100ml IV 100 mls/hr Q24HR RICK Administration Protocol Micafungin Sodium 100 mg/ 100 mls @ 100 mls/hr 11/02/18 10:00 11/03/18 09:47 Sodium Chloride IV 100 mls/hr QDAY RICK Administration Protocol Dextrose 1,000 mls @ 75 mls/hr 11/02/18 21:00 11/02/18 22:17 D5w IV 75 mls/hr DIRECT RICK Administration Insulin Human Lispro 0 unit 10/29/18 12:00 11/03/18 09:13 Humalog SUB-Q Not Given Q6HR [facility] Protocol Lorazepam 0.5 mg 10/26/18 22:44 10/26/18 23:14 Ativan IV 0.5 mg Q4H PRN Administration Anxiety Metoprolol Tartrate 5 mg 10/31/18 14:00 11/03/18 08:50 Lopressor IV Not Given TID [facility] Morphine Sulfate 2 mg 10/24/18 13:39 10/29/18 05:46 Morphine IV 2 mg Q4H PRN Administration Pain, Moderate (4-6) Ondansetron HCl 4 mg 10/24/18 10:05 10/25/18 17:26 Zofran IV 4 mg Q6H PRN Administration Nausea And Vomiting Pantoprazole Sodium 40 mg 10/30/18 22:00 11/03/18 09:42 Protonix IV 40 mg BID RICK Administration Phenol 1 spray 10/28/18 10:16 Chloraseptic MM PRN PRN Sore Throat Promethazine HCl 25 mg 10/22/18 20:10 10/22/18 21:21 Phenergan AR 25 mg Q6H PRN Administration Nausea And Vomiting Sodium Chloride 10 ml 10/22/18 22:00 11/03/18 09:46 Sodium Chloride Flush Syringe 10 Ml IV 10 ml BID RICK Administration Sodium Chloride 10 ml 10/22/18 20:10 10/24/18 18:32 Sodium Chloride Flush Syringe 10 Ml IV 10 ml PRN PRN Administration LINE FLUSH Nutrition/Malnutrition Assess - Dietary Evaluation Nutrition/Malnutrition Findings: Nutrition Notes Start: 10/23/18 17:03 Freq: Status: Active Protocol: Document 11/02/18 11:57 RM (Rec: 11/02/18 12:02 RM [id number]) Nutrition Notes Initial or Follow up Reassessment Current Diagnosis COPD,Sepsis,Hypertension Other Pertinent Diagnosis Gastric peforation, partial SBO, lupus, opiod dependence, SIRS Current Diet PPN at 100 ml/hr Labs/Tests K 3 Cl 114.1 Mg 1.6 Pertinent Medications Reviewed Height 5 ft 3 in Weight 68 kg [place] Body Weight (kg) 52.27 BMI 26.5 Subjective/Other Information PPN day 3. Percent of energy/protein needs met: 48%/100% Burn Absent Trauma Absent #1 Nutrition Diagnosis Inadequate oral intake Diagnosis Progress(for reassessment Continues documentation) Is patient on ventilator? Yes Is Patient Ambulatory and/or Out of Bed No REE-([facility]-confined to bed) 1397.052 Kcal/Kg value to use for calculation 25 Approximate Energy Requirements Using 1700 kcal/Kg Calculation Used for Recommendations Kcal/kg Additional Notes Protein needs are 58-96g (1.2- 2g/kg) Fluid needs are 1ml/kcal Nutrition Intervention Change Diet Order: PPN Nutrition Support: PPN at 100 ml/hr:100 mEq K, Cl /Acetate: 0/100, 16 mEq Mg Kcal 808 Protein (gm) 100 Carbohydrates (gm) 120 Fat (gm) 0 Fluid (mL) 2,400 Fiber (gm) 0 Goal #1 Meet kcal and protein needs as best as possible Anticipated Discharge Needs: Unable to determine at this time Follow-Up By: 11/03/18 Additional Comments Follow for labs in AM: CMP, Mg , Phos
[2018-11-03] MEDS: TPN ADULT 2,400 ML IV SCH ×2 (10:41→11:36)
--- NOTE | 2018-11-03 10:43 | Progress Note ---
Assessment and Plan Cultures: Blood cultures 10/22/2018 no growth so far. Tracheal asp cultures 10/28/2018: E.coli and Stenotrophomonas. 10/30/2018 blood culture: Ayla non albicans Assessment: 73 y/o female with history of COPD, hypertension, lupus, fibromyalgia, opioid dependence admitted on 10/22/2018 due to 3-day history of intractable nausea, vomiting, diarrhea: 1) SIRS v/s sepsis: Etiology most likely aspiration pneumonia +/- intra- abdominal source from contained gastric perforation. Now also with Candidemia. 2) Candidemia: in the setting of TPN and PICC line. PICC removed. If access issues, OK to place temporary midline or central line. Continue IV Micafungin and f/u fungal blood cultures. Will also order TTE. 2) Presumed aspiration pneumonia v/s HAP: Tracheal asp cultures 10/28/2018 with E.coli and Stenotrophomonas. Stenotrophomonas is a known colonizer in patients with structural lung disease or tracheostomy tubes, not generally considered very virulent. 3) Acute respiratory failure: intubated, on the vent. 4) Ileus v/s partial SBO and contained gastric perforation: Gen Surgery following. Planned for conservative management. 5) ADWOA: renally dosed all antibiotics Recommendations: - continue Cefepime, Flagyl, Levofloxacin for another 3 days - continue IV Micafungin - follow up repeat fungal blood cultures - d/w Dr. Díaz, would like to restart TPN CONNIE. Given access needs, OK to place a temporary midline or central line. This would need to be removed and replaced with a PICC once repeat fungal blood cultures are negative at 5 days - TTE ordered Phong Joy MD [facility] C: [phone] O: [phone] F: [phone] Subjective Date of service: 11/03/18 Principal diagnosis: colitis, N/V/D Interval history: No fever. Remains on the vent. No rash. tolerating antimicrobials. Objective - Exam Narrative Exam: Physical Exam: Constitutional: awake, but intubated, no distress Head, Ears, Nose: Normocephalic, atraumatic. External ears, nose normal Eyes: Conjunctivae/corneas clear. No icterus. No ptosis. Neck: Supple, no meningeal signs Oral: intubated Cardiovascular: S1, S2 normal, no murmur heard Respiratory: Good air entry, clear to auscultation bilaterally but reduced in the bases GI: Soft, non-tender; bowel sounds +, No peritoneal signs Musculoskeletal: No pedal edema, no cyanosis. Skin: No rash or abscess Hem/Lymphatic: No palpable cervical or supraclavicular nodes. No lymphangitis Psych: no agitation Neurological: awake, intubated, on vent - Constitutional Vitals: Vital Signs Temp Pulse Resp BP Pulse Ox 98.0 F 102 H 28 H 122/54 100 11/03/18 08:00 11/03/18 10:30 11/03/18 10:30 11/03/18 10:30 11/03/18 10:30 Temperature -Last 24 Hours Temperature 98.0 F Temperature 97.1 F Temperature 97.1 F Temperature 98.3 F Temperature 97.5 F Temperature 97.8 F Temperature 97.3 F - Labs CBC & Chem 7: 11/01/18 06:40 11/02/18 05:00 Labs: Abnormal lab results 11/02/18 11/02/18 11/02/18 Range/Units 11:27 12:53 23:35 POC ABG pCO2 (35-45) POC ABG pO2 134 H (80-105) POC Glucose 137 H 115 H (70-105) 11/03/18 11/03/18 Range/Units 04:14 05:34 POC ABG pCO2 30.3 L (35-45) POC ABG pO2 129 H (80-105) POC Glucose 116 H (70-105)
--- NOTE | 2018-11-03 11:19 | XRay Report ---
AP CHEST: HISTORY: Right IJ triple-lumen catheter placement A right IJ venous catheter has been inserted which terminates in the cavoatrial junction. No pneumothorax. Right arm PICC has been removed. The remainder of the exam is unchanged since 11/02/18 at 0611 hours. IMPRESSION: Right IJ central line placement. No pneumothorax.
--- NOTE | 2018-11-03 11:25 | Progress Note ---
Assessment and Plan 73 y/o female with bowel obstruction and now acute respiratory failure with hypercapnea, likely multifactorial from pain medications, anti-psychotic therapy and inability to take deep breaths for ventilation, now with fungemia from picc line placement. 1. Right IJ placement today. 2. continue daily pSV trials 3. Repeat blood cultures already ordered by ID. Can draw from central line 4. abx therapy per ID 5. Guarded prognosis CCT 31 minutes. Subjective Date of service: 11/03/18 Principal diagnosis: colitis, N/V/D Interval history: Remains intubated. Awake. at bedside. Needs IV access as she is requiring TPN and several abxs Objective Vital Signs - 12hr 11/02/18 11/02/18 11/02/18 23:30 23:42 23:54 Temperature 98.3 F Pulse Rate 100 H 91 H Pulse Rate [ 100 H Anterior Bilateral Throughout] Pulse Rate [ Anterior Bilateral] Pulse Rate [ From Monitor] Respiratory 28 H Rate Respiratory 28 H Rate [Anterior Bilateral Throughout] Respiratory Rate [Anterior Bilateral] Blood Pressure 111/49 111/49 O2 Sat by Pulse 100 100 Oximetry 11/03/18 11/03/18 11/03/18 00:00 00:01 00:05 Temperature Pulse Rate 95 H Pulse Rate [ 99 H Anterior Bilateral Throughout] Pulse Rate [ Anterior Bilateral] Pulse Rate [ 95 H From Monitor] Respiratory 28 H 28 H Rate Respiratory 28 H Rate [Anterior Bilateral Throughout] Respiratory Rate [Anterior Bilateral] Blood Pressure 101/53 O2 Sat by Pulse 100 100 Oximetry 11/03/18 11/03/18 11/03/18 00:31 01:00 01:31 Temperature Pulse Rate 103 H 99 H 96 H Pulse Rate [ Anterior Bilateral Throughout] Pulse Rate [ Anterior Bilateral] Pulse Rate [ From Monitor] Respiratory 29 H 28 H 28 H Rate Respiratory Rate [Anterior Bilateral Throughout] Respiratory Rate [Anterior Bilateral] Blood Pressure 114/43 107/50 101/44 O2 Sat by Pulse 100 100 100 Oximetry 11/03/18 11/03/18 11/03/18 02:00 02:30 03:00 Temperature Pulse Rate 104 H 100 H 98 H Pulse Rate [ Anterior Bilateral Throughout] Pulse Rate [ Anterior Bilateral] Pulse Rate [ From Monitor] Respiratory 22 28 H 28 H Rate Respiratory Rate [Anterior Bilateral Throughout] Respiratory Rate [Anterior Bilateral] Blood Pressure 125/55 116/56 122/54 O2 Sat by Pulse 100 100 100 Oximetry 11/03/18 11/03/18 11/03/18 03:30 04:00 04:01 Temperature 97.1 F L Pulse Rate 105 H 98 H Pulse Rate [ Anterior Bilateral Throughout] Pulse Rate [ Anterior Bilateral] Pulse Rate [ 100 H From Monitor] Respiratory 22 28 H 28 H Rate Respiratory Rate [Anterior Bilateral Throughout] Respiratory Rate [Anterior Bilateral] Blood Pressure 139/38 116/54 O2 Sat by Pulse 100 100 100 Oximetry 11/03/18 11/03/18 11/03/18 04:04 04:14 04:15 Temperature Pulse Rate 106 H Pulse Rate [ 96 H 106 H Anterior Bilateral Throughout] Pulse Rate [ Anterior Bilateral] Pulse Rate [ From Monitor] Respiratory Rate Respiratory 28 H 28 H Rate [Anterior Bilateral Throughout] Respiratory Rate [Anterior Bilateral] Blood Pressure 116/54 O2 Sat by Pulse 100 Oximetry 11/03/18 11/03/18 11/03/18 04:31 05:00 05:30 Temperature Pulse Rate 100 H 98 H 104 H Pulse Rate [ Anterior Bilateral Throughout] Pulse Rate [ Anterior Bilateral] Pulse Rate [ From Monitor] Respiratory 28 H 28 H 28 H Rate Respiratory Rate [Anterior Bilateral Throughout] Respiratory Rate [Anterior Bilateral] Blood Pressure 116/54 112/40 126/42 O2 Sat by Pulse 100 100 100 Oximetry 11/03/18 11/03/18 11/03/18 06:01 06:30 07:00 Temperature Pulse Rate 99 H 94 H 105 H Pulse Rate [ Anterior Bilateral Throughout] Pulse Rate [ Anterior Bilateral] Pulse Rate [ From Monitor] Respiratory 27 H 28 H 28 H Rate Respiratory Rate [Anterior Bilateral Throughout] Respiratory Rate [Anterior Bilateral] Blood Pressure 110/22 127/43 127/62 O2 Sat by Pulse 100 100 100 Oximetry 11/03/18 11/03/18 11/03/18 07:31 07:41 07:45 Temperature Pulse Rate 97 H 101 H Pulse Rate [ Anterior Bilateral Throughout] Pulse Rate [ 107 H Anterior Bilateral] Pulse Rate [ From Monitor] Respiratory 28 H Rate Respiratory Rate [Anterior Bilateral Throughout] Respiratory 28 H Rate [Anterior Bilateral] Blood Pressure 110/34 110/34 O2 Sat by Pulse 99 100 Oximetry 11/03/18 11/03/18 11/03/18 07:55 08:00 08:31 Temperature 98.0 F Pulse Rate 104 H 122 H Pulse Rate [ 122 H Anterior Bilateral Throughout] Pulse Rate [ 122 H Anterior Bilateral] Pulse Rate [ From Monitor] Respiratory 28 H 28 H Rate Respiratory 28 H Rate [Anterior Bilateral Throughout] Respiratory 28 H Rate [Anterior Bilateral] Blood Pressure 134/56 154/55 O2 Sat by Pulse 100 100 Oximetry 11/03/18 11/03/18 11/03/18 08:50 09:01 09:30 Temperature Pulse Rate 122 H 125 H 120 H Pulse Rate [ Anterior Bilateral Throughout] Pulse Rate [ Anterior Bilateral] Pulse Rate [ From Monitor] Respiratory 28 H 28 H Rate Respiratory Rate [Anterior Bilateral Throughout] Respiratory Rate [Anterior Bilateral] Blood Pressure 109/39 109/39 115/56 O2 Sat by Pulse 100 100 Oximetry 11/03/18 11/03/18 11/03/18 10:00 10:30 11:00 Temperature Pulse Rate 124 H 102 H 96 H Pulse Rate [ Anterior Bilateral Throughout] Pulse Rate [ Anterior Bilateral] Pulse Rate [ From Monitor] Respiratory 28 H 28 H 28 H Rate Respiratory Rate [Anterior Bilateral Throughout] Respiratory Rate [Anterior Bilateral] Blood Pressure 118/57 122/54 94/44 O2 Sat by Pulse 100 100 100 Oximetry Constitutional: no acute distress, alert Eyes: non-icteric ENT: other (orally intubated) Neck: supple, no JVD Effort: mildly labored Ascultation: Bilateral: diminished breath sounds (at bases), wheezes, rales, rhonchi (sporadic) Percussion: Bilateral: not dull Cardiovascular: regular rate and rhythm Gastrointestinal: hypoactive bowel sounds, other (soft and depressible. Decreased bowel sounds, no rebound tenderness mild distention) Integumentary: normal Extremities: no edema Neurologic: normal mental status, non-focal exam Psychiatric: anxious CBC and BMP: 11/01/18 06:40 11/02/18 05:00 ABG, PT/INR, D-dimer: ABG POC ABG pH 7.355 (7.35-7.45) 11/03/18 04:14 POC ABG pCO2 30.3 (35-45) L 11/03/18 04:14 POC ABG pO2 129 (80-105) H 11/03/18 04:14 POC ABG HCO3 16.9 (22-26 mml/L) 11/03/18 04:14 POC ABG Total CO2 18 (23-27mmol/L) 11/03/18 04:14 POC ABG O2 Sat 99 11/03/18 04:14 Abnormal lab findings: Abnormal Labs 10/22/18 10/22/18 10/22/18 15:31 15:54 15:54 WBC 11.5 H RBC 5.35 H Hgb 17.4 H Hct 50.3 H MCV MCH 33 H MCHC 35 H Plt Count Lymph % (Auto) 12.6 L [place] % (Auto) 14.8 H Lymph # [place] # 1.7 H Seg Neutrophils % 72.5 H Seg Neuts % (Manual) Lymphocytes % (Manual) Seg Neutrophils # 8.3 H Seg Neutrophils # Man Lymphocytes # (Manual) POC ABG pH POC ABG pCO2 POC ABG pO2 Sodium 134 L Potassium Chloride 88.1 L Carbon Dioxide BUN 51 H Creatinine 2.1 H Glucose 166 H POC Glucose Calcium Phosphorus Magnesium Albumin 3.4 L Lipase 10 L Free T4 10/23/18 10/23/18 10/23/18 04:32 04:32 10:53 WBC RBC Hgb Hct MCV MCH MCHC Plt Count Lymph % (Auto) 10.2 L [place] % (Auto) 14.7 H Lymph # 0.7 L [place] # 1.0 H Seg Neutrophils % 74.9 H Seg Neuts % (Manual) Lymphocytes % (Manual) Seg Neutrophils # Seg Neutrophils # Man Lymphocytes # (Manual) POC ABG pH POC ABG pCO2 POC ABG pO2 Sodium Potassium 3.1 L D 3.5 L Chloride Carbon Dioxide BUN 41 H 37 H Creatinine Glucose 111 H 110 H POC Glucose Calcium 8.1 L 8.1 L Phosphorus Magnesium Albumin Lipase Free T4 10/24/18 10/24/18 10/25/18 05:34 05:34 04:51 WBC RBC Hgb Hct MCV MCH MCHC Plt Count Lymph % (Auto) [place] % (Auto) Lymph # [place] # Seg Neutrophils % Seg Neuts % (Manual) Lymphocytes % (Manual) Seg Neutrophils # Seg Neutrophils # Man Lymphocytes # (Manual) POC ABG pH POC ABG pCO2 POC ABG pO2 Sodium Potassium 3.2 L 3.1 L Chloride 109.8 H 114.2 H Carbon Dioxide 17 L D BUN 21 H Creatinine Glucose 134 H 171 H POC Glucose Calcium 7.7 L 7.0 L Phosphorus 0.80 L* Magnesium Albumin Lipase Free T4 05/25/19 05/26/19 05/26/19 06:07 02:58 04:57 WBC RBC Hgb Hct MCV 99 H MCH 33 H MCHC Plt Count Lymph % (Auto) [place] % (Auto) Lymph # [place] # Seg Neutrophils % Seg Neuts % (Manual) Lymphocytes % (Manual) Seg Neutrophils # Seg Neutrophils # Man Lymphocytes # (Manual) POC ABG pH 7.090 L 7.320 L POC ABG pCO2 65.0 H 32.8 L POC ABG pO2 76 L Sodium Potassium Chloride Carbon Dioxide BUN Creatinine Glucose POC Glucose Calcium Phosphorus Magnesium Albumin Lipase Free T4 10/26/18 10/26/18 10/26/18 06:03 06:03 11:52 WBC 23.8 H RBC Hgb 15.4 H Hct 46.1 H D MCV MCH MCHC Plt Count Lymph % (Auto) [place] % (Auto) Lymph # [place] # Seg Neutrophils % Seg Neuts % (Manual) Lymphocytes % (Manual) Seg Neutrophils # Seg Neutrophils # Man Lymphocytes # (Manual) POC ABG pH POC ABG pCO2 POC ABG pO2 Sodium Potassium Chloride 109.5 H Carbon Dioxide 18 L BUN Creatinine Glucose 128 H POC Glucose 117 H Calcium 8.3 L D Phosphorus Magnesium Albumin Lipase Free T4 10/26/18 10/26/18 10/26/18 13:54 17:10 17:32 WBC RBC Hgb Hct MCV MCH MCHC Plt Count Lymph % (Auto) [place] % (Auto) Lymph # [place] # Seg Neutrophils % Seg Neuts % (Manual) Lymphocytes % (Manual) Seg Neutrophils # Seg Neutrophils # Man Lymphocytes # (Manual) POC ABG pH 7.215 L POC ABG pCO2 31.8 L POC ABG pO2 69 L 204 H Sodium Potassium 3.0 L D Chloride 114.5 H Carbon Dioxide 21 L BUN Creatinine Glucose POC Glucose Calcium 7.6 L Phosphorus Magnesium 1.40 L Albumin Lipase Free T4 10/26/18 10/27/18 10/27/18 23:13 00:40 01:09 WBC RBC Hgb Hct MCV MCH MCHC Plt Count Lymph % (Auto) [place] % (Auto) Lymph # [place] # Seg Neutrophils % Seg Neuts % (Manual) Lymphocytes % (Manual) Seg Neutrophils # Seg Neutrophils # Man Lymphocytes # (Manual) POC ABG pH POC ABG pCO2 POC ABG pO2 Sodium Potassium 3.4 L Chloride 115.0 H Carbon Dioxide 14 L D BUN Creatinine Glucose 228 H POC Glucose 48 L 264 H Calcium 7.1 L Phosphorus Magnesium Albumin Lipase Free T4 10/27/18 10/27/18 10/27/18 05:00 05:00 05:16 WBC 22.5 H RBC Hgb 14.7 H Hct 44.4 H MCV MCH MCHC Plt Count Lymph % (Auto) [place] % (Auto) Lymph # [place] # Seg Neutrophils % Seg Neuts % (Manual) Lymphocytes % (Manual) Seg Neutrophils # Seg Neutrophils # Man Lymphocytes # (Manual) POC ABG pH 7.304 L POC ABG pCO2 POC ABG pO2 116 H Sodium Potassium Chloride 118.4 H Carbon Dioxide 16 L BUN Creatinine Glucose 123 H POC Glucose Calcium 7.7 L Phosphorus Magnesium 2.60 H Albumin Lipase Free T4 10/28/18 10/28/18 10/28/18 04:25 04:25 15:37 WBC 23.5 H RBC Hgb Hct MCV MCH MCHC Plt Count Lymph % (Auto) [place] % (Auto) Lymph # [place] # Seg Neutrophils % Seg Neuts % (Manual) Lymphocytes % (Manual) Seg Neutrophils # Seg Neutrophils # Man Lymphocytes # (Manual) POC ABG pH POC ABG pCO2 POC ABG pO2 Sodium 147 H Potassium Chloride 116.9 H Carbon Dioxide 16 L BUN 23 H Creatinine Glucose POC Glucose 114 H Calcium 8.0 L Phosphorus Magnesium Albumin Lipase Free T4 10/28/18 10/28/18 10/28/18 20:33 22:07 23:31 WBC RBC Hgb Hct MCV MCH MCHC Plt Count Lymph % (Auto) [place] % (Auto) Lymph # [place] # Seg Neutrophils % Seg Neuts % (Manual) Lymphocytes % (Manual) Seg Neutrophils # Seg Neutrophils # Man Lymphocytes # (Manual) POC ABG pH 7.202 L 7.235 L POC ABG pCO2 POC ABG pO2 71 L Sodium Potassium Chloride Carbon Dioxide BUN Creatinine Glucose POC Glucose 207 H Calcium Phosphorus Magnesium Albumin Lipase Free T4 10/29/18 10/29/18 10/29/18 04:30 04:30 05:26 WBC 21.1 H RBC Hgb Hct MCV MCH MCHC Plt Count Lymph % (Auto) [place] % (Auto) Lymph # [place] # Seg Neutrophils % Seg Neuts % (Manual) 97.0 H Lymphocytes % (Manual) 3.0 L Seg Neutrophils # Seg Neutrophils # Man 20.5 H Lymphocytes # (Manual) 0.6 L POC ABG pH 7.305 L POC ABG pCO2 30.5 L POC ABG pO2 75 L Sodium 147 H Potassium 3.5 L Chloride 120.0 H Carbon Dioxide 17 L BUN 30 H Creatinine Glucose 246 H POC Glucose Calcium 7.9 L Phosphorus Magnesium Albumin Lipase Free T4 10/29/18 10/29/18 10/29/18 05:36 11:39 18:00 WBC RBC Hgb Hct MCV MCH MCHC Plt Count Lymph % (Auto) [place] % (Auto) Lymph # [place] # Seg Neutrophils % Seg Neuts % (Manual) Lymphocytes % (Manual) Seg Neutrophils # Seg Neutrophils # Man Lymphocytes # (Manual) POC ABG pH POC ABG pCO2 POC ABG pO2 Sodium Potassium Chloride Carbon Dioxide BUN Creatinine Glucose POC Glucose 204 H 224 H 221 H Calcium Phosphorus Magnesium Albumin Lipase Free T4 10/29/18 10/30/18 10/30/18 23:17 05:00 05:00 WBC 21.4 H RBC Hgb Hct MCV MCH MCHC Plt Count 134 L Lymph % (Auto) [place] % (Auto) Lymph # [place] # Seg Neutrophils % Seg Neuts % (Manual) 97.0 H Lymphocytes % (Manual) 3.0 L Seg Neutrophils # Seg Neutrophils # Man 20.8 H Lymphocytes # (Manual) 0.6 L POC ABG pH POC ABG pCO2 POC ABG pO2 Sodium 148 H Potassium 3.1 L Chloride 120.3 H Carbon Dioxide 18 L BUN 31 H Creatinine Glucose 205 H POC Glucose 181 H Calcium 8.0 L Phosphorus Magnesium Albumin Lipase Free T4 10/30/18 10/30/18 10/30/18 05:14 05:25 05:26 WBC RBC Hgb Hct MCV MCH MCHC Plt Count Lymph % (Auto) [place] % (Auto) Lymph # [place] # Seg Neutrophils % Seg Neuts % (Manual) Lymphocytes % (Manual) Seg Neutrophils # Seg Neutrophils # Man Lymphocytes # (Manual) POC ABG pH 7.296 L 7.245 L POC ABG pCO2 31.1 L POC ABG pO2 54 L 59 L Sodium Potassium Chloride Carbon Dioxide BUN Creatinine Glucose POC Glucose 199 H Calcium Phosphorus Magnesium Albumin Lipase Free T4 10/30/18 10/30/18 10/31/18 13:23 18:25 00:22 WBC RBC Hgb Hct MCV MCH MCHC Plt Count Lymph % (Auto) [place] % (Auto) Lymph # [place] # Seg Neutrophils % Seg Neuts % (Manual) Lymphocytes % (Manual) Seg Neutrophils # Seg Neutrophils # Man Lymphocytes # (Manual) POC ABG pH POC ABG pCO2 POC ABG pO2 Sodium Potassium Chloride Carbon Dioxide BUN Creatinine Glucose POC Glucose 146 H 158 H 162 H Calcium Phosphorus Magnesium Albumin Lipase Free T4 10/31/18 10/31/18 10/31/18 04:39 05:14 07:05 WBC RBC Hgb Hct MCV MCH MCHC Plt Count Lymph % (Auto) [place] % (Auto) Lymph # [place] # Seg Neutrophils % Seg Neuts % (Manual) Lymphocytes % (Manual) Seg Neutrophils # Seg Neutrophils # Man Lymphocytes # (Manual) POC ABG pH 7.238 L POC ABG pCO2 POC ABG pO2 Sodium Potassium Chloride 115.8 H Carbon Dioxide 18 L BUN 39 H Creatinine 1.3 H Glucose 167 H POC Glucose 145 H Calcium 7.5 L Phosphorus 1.80 L Magnesium Albumin Lipase Free T4 10/31/18 10/31/18 10/31/18 10:43 12:03 17:00 WBC RBC Hgb Hct MCV MCH MCHC Plt Count Lymph % (Auto) [place] % (Auto) Lymph # [place] # Seg Neutrophils % Seg Neuts % (Manual) Lymphocytes % (Manual) Seg Neutrophils # Seg Neutrophils # Man Lymphocytes # (Manual) POC ABG pH 7.304 L POC ABG pCO2 33.3 L POC ABG pO2 Sodium Potassium Chloride Carbon Dioxide BUN Creatinine Glucose POC Glucose 159 H Calcium Phosphorus Magnesium Albumin Lipase Free T4 0.49 L 10/31/18 11/01/18 11/01/18 17:00 00:44 05:27 WBC RBC Hgb Hct MCV MCH MCHC Plt Count Lymph % (Auto) [place] % (Auto) Lymph # [place] # Seg Neutrophils % Seg Neuts % (Manual) Lymphocytes % (Manual) Seg Neutrophils # Seg Neutrophils # Man Lymphocytes # (Manual) POC ABG pH 7.248 L POC ABG pCO2 34.8 L POC ABG pO2 135 H Sodium Potassium Chloride Carbon Dioxide BUN Creatinine Glucose POC Glucose 127 H 118 H Calcium Phosphorus Magnesium Albumin Lipase Free T4 11/01/18 11/01/18 11/01/18 06:40 06:40 06:53 WBC 18.9 H RBC 3.63 L Hgb Hct MCV MCH MCHC Plt Count 64 L Lymph % (Auto) [place] % (Auto) Lymph # [place] # Seg Neutrophils % Seg Neuts % (Manual) 98.0 H Lymphocytes % (Manual) 1.0 L Seg Neutrophils # Seg Neutrophils # Man 18.5 H Lymphocytes # (Manual) 0.2 L POC ABG pH POC ABG pCO2 POC ABG pO2 Sodium Potassium 3.5 L Chloride 114.2 H Carbon Dioxide 17 L BUN 49 H Creatinine Glucose 107 H POC Glucose 127 H Calcium 7.3 L Phosphorus Magnesium 1.60 L Albumin Lipase Free T4 11/01/18 11/01/18 11/01/18 11:49 13:13 17:24 WBC RBC Hgb Hct MCV MCH MCHC Plt Count Lymph % (Auto) [place] % (Auto) Lymph # [place] # Seg Neutrophils % Seg Neuts % (Manual) Lymphocytes % (Manual) Seg Neutrophils # Seg Neutrophils # Man Lymphocytes # (Manual) POC ABG pH POC ABG pCO2 POC ABG pO2 182 H Sodium Potassium Chloride Carbon Dioxide BUN Creatinine Glucose POC Glucose 134 H 111 H Calcium Phosphorus Magnesium Albumin Lipase Free T4 11/01/18 11/02/18 11/02/18 23:07 04:32 05:00 WBC RBC Hgb Hct MCV MCH MCHC Plt Count Lymph % (Auto) [place] % (Auto) Lymph # [place] # Seg Neutrophils % Seg Neuts % (Manual) Lymphocytes % (Manual) Seg Neutrophils # Seg Neutrophils # Man Lymphocytes # (Manual) POC ABG pH 7.244 L POC ABG pCO2 33.2 L POC ABG pO2 123 H Sodium Potassium 3.0 L Chloride 114.1 H Carbon Dioxide 15 L BUN 47 H Creatinine Glucose 127 H POC Glucose 123 H Calcium 7.7 L Phosphorus Magnesium Albumin Lipase Free T4 11/02/18 11/02/18 11/02/18 05:00 05:29 11:27 WBC RBC Hgb Hct MCV MCH MCHC Plt Count Lymph % (Auto) [place] % (Auto) Lymph # [place] # Seg Neutrophils % Seg Neuts % (Manual) Lymphocytes % (Manual) Seg Neutrophils # Seg Neutrophils # Man Lymphocytes # (Manual) POC ABG pH POC ABG pCO2 POC ABG pO2 Sodium Potassium Chloride Carbon Dioxide BUN Creatinine Glucose POC Glucose 118 H 137 H Calcium Phosphorus Magnesium 1.60 L Albumin Lipase Free T4 11/02/18 11/02/18 11/03/18 12:53 23:35 04:14 WBC RBC Hgb Hct MCV MCH MCHC Plt Count Lymph % (Auto) [place] % (Auto) Lymph # [place] # Seg Neutrophils % Seg Neuts % (Manual) Lymphocytes % (Manual) Seg Neutrophils # Seg Neutrophils # Man Lymphocytes # (Manual) POC ABG pH POC ABG pCO2 30.3 L POC ABG pO2 134 H 129 H Sodium Potassium Chloride Carbon Dioxide BUN Creatinine Glucose POC Glucose 115 H Calcium Phosphorus Magnesium Albumin Lipase Free T4 11/03/18 05:34 WBC RBC Hgb Hct MCV MCH MCHC Plt Count Lymph % (Auto) [place] % (Auto) Lymph # [place] # Seg Neutrophils % Seg Neuts % (Manual) Lymphocytes % (Manual) Seg Neutrophils # Seg Neutrophils # Man Lymphocytes # (Manual) POC ABG pH POC ABG pCO2 POC ABG pO2 Sodium Potassium Chloride Carbon Dioxide BUN Creatinine Glucose POC Glucose 116 H Calcium Phosphorus Magnesium Albumin Lipase Free T4 Allied health notes reviewed: nursing
--- NOTE | 2018-11-03 11:27 | Procedure Note ---
Date of procedure: 11/03/18 Pre-op diagnosis: Fungemia Post-op diagnosis: same Procedure: Right IJ placement After obtaining informed consent from patient and , patient placed in trendelenberg and under sterile fashion using Seldinger technique a 7Fr triple lumen catheter was placed in the right IJ. Good blood return from all ports and all ports flushed. Biopatch applied and line sutured in. No immediate post complications were noted. Post Op CXR showed good line placement and no immediate evidence of pneumothorax. Anesthesia: local Surgeon: CHARLES JOINER Estimated blood loss: none Pathology: none Condition: critical Disposition: ICU
[2018-11-03 12:08] LABS: Hematocrit 32.8 % (30.3-42.9); Hemoglobin 11.1 gm/dl (10.1-14.3); Mean Corpuscular HGB Conc 34 % (30-34); Mean Corpuscular Volume 94 fl (79-97); Platelet Count 136 K/mm3 (140-440); Red Cell Distribution Width 14.5 % (13.2-15.2)
--- NOTE | 2018-11-03 12:29 | Progress Note ---
Assessment and Plan Cont present cardiac management. Await echo. The patient has been seen in conjunction with Dr. Mas who agrees with the assessment and plan of care. - Patient Problems (1) Atrial tachycardia, paroxysmal Current Visit: Yes Status: Acute (2) Tachy-adama syndrome Current Visit: Yes Status: Acute (3) Acute respiratory failure Current Visit: Yes Status: Acute (4) Perforated gastric ulcer Current Visit: Yes Status: Acute (5) Intractable nausea and vomiting Current Visit: Yes Status: Acute (6) Partial small bowel obstruction Current Visit: Yes Status: Acute (7) COPD (chronic obstructive pulmonary disease) Current Visit: Yes Status: Chronic (8) History of hypertension Current Visit: Yes Status: Chronic (9) ADWOA (acute kidney injury) Current Visit: Yes Status: Acute (10) Hypokalemia Current Visit: Yes Status: Acute Subjective Date of service: 11/03/18 Principal diagnosis: colitis, N/V/D Interval history: pt resting in bed, remains intubated, alert. in SR on tele with bouts of apparent atrial tachycardia overnight. at bedside. Objective Last Vital Signs Temp 98.0 F 11/03/18 08:00 Pulse 97 H 11/03/18 11:44 Resp 28 H 11/03/18 11:35 BP 114/59 11/03/18 11:44 Pulse Ox 100 11/03/18 11:44 - Physical Examination General: Other (intubated, alert) HEENT: Positive: PERRL Neck: Positive: neck supple, trachea midline Cardiac: Positive: Reg Rate and Rhythm, S1/S2 Lungs: Positive: Decreased Breath Sounds Neuro: Positive: Other (intubated, alert) Skin: Negative: Rash Musculoskeletal: No Pain Extremities: Absent: edema - Labs and Meds CBC 11/03/18 Range/Units 11:30 WBC 16.4 H (4.5-11.0) K/mm3 RBC 3.50 L (3.65-5.03) M/mm3 Hgb 11.1 (10.1-14.3) gm/dl Hct 32.8 (30.3-42.9) % Plt Count 136 L D (140-440) K/mm3 - Imaging and Cardiology EKG: report reviewed, image reviewed Echo: pending - Telemetry EKG Rhythm: Sinus Rhythm - EKG Sinus rhythms and dysrhythmias: sinus rhythm - Allied health notes Allied health notes reviewed: nursing
--- NOTE | 2018-11-03 13:21 | Event Note ---
Date: 11/03/18 [id number]
[2018-11-03 13:31] LABS: Albumin 1.2 g/dL (3.9-5); Calcium 7.7 mg/dL (8.4-10.2)
[2018-11-03 13:47] LABS: Basophils % (Manual) 0 % (0.0-1.8); Eosinophils % (Manual) 0 % (0.0-4.3); RBC Morphology Normal; Total Cells Counted 100
[2018-11-03 13:48] LABS: Platelet Estimate Consistent w Auto
[2018-11-03 14:56] LABS: Heparin-Induced Platelet Antib Negative (Negative); Unfractionated Heparin Negative (Negative)
[2018-11-03] MEDS: KCL 20MEQ/100ML 20 MEQ/100 ML BAG IV SCH ×2 (16:50→18:31)
--- NOTE | 2018-11-03 16:56 | Progress Note ---
Assessment and Plan - Patient Problems (1) Hypernatremia Current Visit: Yes Status: Acute Plan to address problem: resolved, now TPN (2) Acute renal failure Current Visit: Yes Status: Acute Plan to address problem: Prerenal azotemia secondary to volume depletion, now stabilizing, pt remains non-oliguric. cont TPN. Follow-up electrolytes and renal function. (3) Hypokalemia Current Visit: Yes Status: Acute Plan to address problem: K Supplementation with KCl, pt also on TPN. (4) Abdominal distention, non-gaseous Current Visit: Yes Status: Acute Plan to address problem: being conservatively managed per general surgery (5) Acute respiratory failure with hypoxia Current Visit: Yes Status: Acute Plan to address problem: Continue vent management by pulmonary Subjective Date of service: 11/03/18 Principal diagnosis: colitis, N/V/D Interval history: Pt is on on vent, remains on NGT, started on TPN Objective - Vital Signs Vital signs: Vital Signs - 12hr 11/03/18 11/03/18 11/03/18 05:00 05:30 06:01 Temperature Pulse Rate 98 H 104 H 99 H Pulse Rate [ Anterior Bilateral Throughout] Pulse Rate [ Anterior Bilateral] Pulse Rate [ From Monitor] Respiratory 28 H 28 H 27 H Rate Respiratory Rate [Anterior Bilateral Throughout] Respiratory Rate [Anterior Bilateral] Blood Pressure 112/40 126/42 110/22 O2 Sat by Pulse 100 100 100 Oximetry 11/03/18 11/03/18 11/03/18 06:30 07:00 07:31 Temperature Pulse Rate 94 H 105 H 97 H Pulse Rate [ Anterior Bilateral Throughout] Pulse Rate [ Anterior Bilateral] Pulse Rate [ From Monitor] Respiratory 28 H 28 H 28 H Rate Respiratory Rate [Anterior Bilateral Throughout] Respiratory Rate [Anterior Bilateral] Blood Pressure 127/43 127/62 110/34 O2 Sat by Pulse 100 100 99 Oximetry 11/03/18 11/03/18 11/03/18 07:41 07:45 07:55 Temperature Pulse Rate 101 H Pulse Rate [ 122 H Anterior Bilateral Throughout] Pulse Rate [ 107 H 122 H Anterior Bilateral] Pulse Rate [ From Monitor] Respiratory Rate Respiratory 28 H Rate [Anterior Bilateral Throughout] Respiratory 28 H 28 H Rate [Anterior Bilateral] Blood Pressure 110/34 O2 Sat by Pulse 100 Oximetry 06/03/19 06/03/19 06/03/19 08:00 08:31 08:50 Temperature 98.0 F Pulse Rate 104 H 122 H 122 H Pulse Rate [ Anterior Bilateral Throughout] Pulse Rate [ Anterior Bilateral] Pulse Rate [ From Monitor] Respiratory 28 H 28 H Rate Respiratory Rate [Anterior Bilateral Throughout] Respiratory Rate [Anterior Bilateral] Blood Pressure 134/56 154/55 109/39 O2 Sat by Pulse 100 100 Oximetry 11/03/18 11/03/18 11/03/18 09:01 09:30 10:00 Temperature Pulse Rate 125 H 120 H 124 H Pulse Rate [ Anterior Bilateral Throughout] Pulse Rate [ Anterior Bilateral] Pulse Rate [ From Monitor] Respiratory 28 H 28 H 28 H Rate Respiratory Rate [Anterior Bilateral Throughout] Respiratory Rate [Anterior Bilateral] Blood Pressure 109/39 115/56 118/57 O2 Sat by Pulse 100 100 100 Oximetry 11/03/18 11/03/18 11/03/18 10:30 11:00 11:22 Temperature Pulse Rate 102 H 96 H Pulse Rate [ 103 H Anterior Bilateral Throughout] Pulse Rate [ Anterior Bilateral] Pulse Rate [ From Monitor] Respiratory 28 H 28 H Rate Respiratory 28 H Rate [Anterior Bilateral Throughout] Respiratory Rate [Anterior Bilateral] Blood Pressure 122/54 94/44 O2 Sat by Pulse 100 100 Oximetry 11/03/18 11/03/18 11/03/18 11:25 11:31 11:35 Temperature Pulse Rate 105 H Pulse Rate [ 104 H 98 H Anterior Bilateral Throughout] Pulse Rate [ Anterior Bilateral] Pulse Rate [ From Monitor] Respiratory 28 H Rate Respiratory 28 H 28 H Rate [Anterior Bilateral Throughout] Respiratory Rate [Anterior Bilateral] Blood Pressure 114/59 O2 Sat by Pulse 100 Oximetry 11/03/18 11/03/18 11/03/18 11:44 12:00 12:31 Temperature 97.6 F Pulse Rate 97 H 99 H 106 H Pulse Rate [ Anterior Bilateral Throughout] Pulse Rate [ Anterior Bilateral] Pulse Rate [ From Monitor] Respiratory 28 H 21 Rate Respiratory Rate [Anterior Bilateral Throughout] Respiratory Rate [Anterior Bilateral] Blood Pressure 114/59 110/56 110/56 O2 Sat by Pulse 100 100 100 Oximetry 11/03/18 11/03/18 11/03/18 13:01 13:31 14:00 Temperature Pulse Rate 112 H 105 H 105 H Pulse Rate [ Anterior Bilateral Throughout] Pulse Rate [ Anterior Bilateral] Pulse Rate [ From Monitor] Respiratory 21 20 20 Rate Respiratory Rate [Anterior Bilateral Throughout] Respiratory Rate [Anterior Bilateral] Blood Pressure 121/99 121/99 122/39 O2 Sat by Pulse 100 100 100 Oximetry 11/03/18 11/03/18 11/03/18 14:28 14:31 15:01 Temperature Pulse Rate 112 H 109 H 115 H Pulse Rate [ Anterior Bilateral Throughout] Pulse Rate [ Anterior Bilateral] Pulse Rate [ From Monitor] Respiratory 25 H 20 Rate Respiratory Rate [Anterior Bilateral Throughout] Respiratory Rate [Anterior Bilateral] Blood Pressure 112/39 122/39 102/74 O2 Sat by Pulse 100 100 Oximetry 11/03/18 11/03/18 11/03/18 15:31 15:49 15:59 Temperature Pulse Rate 109 H Pulse Rate [ 113 H 111 H Anterior Bilateral Throughout] Pulse Rate [ Anterior Bilateral] Pulse Rate [ From Monitor] Respiratory 20 Rate Respiratory 28 H 25 H Rate [Anterior Bilateral Throughout] Respiratory Rate [Anterior Bilateral] Blood Pressure 102/74 O2 Sat by Pulse 100 Oximetry 11/03/18 11/03/18 11/03/18 16:00 16:01 16:16 Temperature Pulse Rate 109 H 109 H Pulse Rate [ Anterior Bilateral Throughout] Pulse Rate [ Anterior Bilateral] Pulse Rate [ 107 H From Monitor] Respiratory 22 Rate Respiratory Rate [Anterior Bilateral Throughout] Respiratory Rate [Anterior Bilateral] Blood Pressure 119/63 119/63 O2 Sat by Pulse 100 100 100 Oximetry 11/03/18 16:31 Temperature Pulse Rate 111 H Pulse Rate [ Anterior Bilateral Throughout] Pulse Rate [ Anterior Bilateral] Pulse Rate [ From Monitor] Respiratory 25 H Rate Respiratory Rate [Anterior Bilateral Throughout] Respiratory Rate [Anterior Bilateral] Blood Pressure 119/63 O2 Sat by Pulse 100 Oximetry - General Appearance General appearance: appears stated age, intubated, frail EENT: ATNC, PERRL, mucous membranes moist Neck: no JVD Respiratory: Present: Decreased Breath Sounds Cardiology: regular, S1S2 Gastrointestinal: distended Integumentary: no rash, other (no edema ) Neurologic: no focal deficit, alert and oriented x3, strength 5/5, CN 3-12 intact Psychiatric: mood/affect appropriate, cooperative - Lab 11/03/18 11:30 11/03/18 11:30 Most recent lab results Calcium 7.7 mg/dL (8.4-10.2) L 11/03/18 11:30 Phosphorus 2.50 mg/dL (2.5-4.5) D 11/03/18 11:30 Magnesium 1.60 mg/dL (1.7-2.3) L 11/03/18 11:30 Medications & Allergies - Medications Allergies/Adverse Reactions: Allergies Sulfa (Sulfonamide Antibiotics) Allergy (Intermediate, Verified 10/22/18 16:30) Rash metoclopramide HCl [From Reglan] Allergy (Verified 10/22/18 16:30) Dizziness prochlorperazine [From Compazine] Allergy (Verified 10/22/18 16:30) NECK STIFFNESS Home Medications: Home Medications Medication Instructions Recorded Confirmed Last Taken Type Ondansetron 4 mg PO Q6HR PRN 12/05/16 10/22/18 10/29/17 History Propranolol HCl [Propranolol HCl 60 mg PO DAILY 12/05/16 10/22/18 10/30/17 22:00 History ER] QUEtiapine [SEROquel] 300 mg PO DAILY 12/05/16 10/22/18 10/30/17 History Lasix TAB 40 mg PO PRN PRN 12/07/16 10/22/18 10/24/17 History Percocet 10/325 mg 1 tab PO PRN PRN 12/07/16 10/22/18 10/30/17 History Albuterol Sulfate [Albuterol 0.63% 0.63 mg IH TID PRN 10/22/17 10/22/18 10/29/17 History NEBS] Active Medications: Generic Name Dose Route Start Last Admin Trade Name Freq PRN Reason Stop Dose Admin Acetaminophen 650 mg 10/22/18 20:10 Tylenol PO Q4H PRN Pain MILD(1-3)/Fever >100.5/PORTER Albuterol 2.5 mg 10/22/18 20:14 10/28/18 06:34 Proventil IH 2.5 mg Q4HRT PRN Administration Shortness Of Breath Albuterol/Ipratropium 1 ampul 10/28/18 12:00 11/03/18 15:49 Duoneb *Not For Prn Use* IH 1 ampul Q4HRT RICK Administration Budesonide 0.5 mg 10/23/18 08:00 11/03/18 07:41 Pulmicort IH 0.5 mg Q12HRT RICK Administration Dextrose 50 ml 10/26/18 23:40 10/27/18 00:20 D50w (25gm) Syringe IV 50 ml PRN PRN Administration Hypoglycemia Hydralazine HCl 10 mg 10/22/18 21:41 Apresoline IV Q4HR PRN Blood Pressure Fentanyl Citrate 2,000 mcg in 100 mls @ 1.2 mls/hr 10/29/18 11:00 11/03/18 10:42 Fentanyl Drip Premix IV 0 mcg/kg/hr TITR RICK 0 mls/hr Titration Protocol 0.5 MCG/KG/HR Metronidazole 500 mg in 100 mls @ 100 mls/hr 10/30/18 14:00 11/03/18 14:27 Flagyl 500 Mg/100 Ml IV 100 mls/hr Q8HR RICK Administration Protocol Cefepime HCl 2 gm in 100 mls @ 200 mls/hr 10/31/18 22:00 11/03/18 09:42 Maxipime/Ns 2 Gm/100 Ml IV 200 mls/hr Q12HR RICK Administration Protocol Levofloxacin/Dextrose 500 mg in 100 mls @ 100 mls/hr 10/31/18 17:00 11/03/18 09:42 Levaquin 500mg/100ml IV 100 mls/hr Q24HR RICK Administration Protocol Micafungin Sodium 100 mg/ 100 mls @ 100 mls/hr 11/02/18 10:00 11/03/18 09:47 Sodium Chloride IV 100 mls/hr QDAY RICK Administration Protocol Dextrose 1,000 mls @ 75 mls/hr 11/02/18 21:00 11/02/18 22:17 D5w IV 75 mls/hr DIRECT RICK Administration Amino Acids/Electrolytes/Dextrose 2,400 mls @ 100 mls/hr 11/03/18 20:00 Tpn Adult IV 11/04/18 19:59 DAILY@2000 RICK Protocol Potassium Chloride 20 meq in 100 mls @ 100 mls/hr 11/03/18 15:30 Kcl 20meq/100ml IV 11/03/18 17:29 Q1H RICK Insulin Human Lispro 0 unit 10/29/18 12:00 11/03/18 12:46 Humalog SUB-Q Not Given Q6HR RICK Protocol Lorazepam 0.5 mg 10/26/18 22:44 10/26/18 23:14 Ativan IV 0.5 mg Q4H PRN Administration Anxiety Metoprolol Tartrate 5 mg 10/31/18 14:00 11/03/18 14:28 Lopressor IV Not Given TID RICK Morphine Sulfate 2 mg 10/24/18 13:39 10/29/18 05:46 Morphine IV 2 mg Q4H PRN Administration Pain, Moderate (4-6) Ondansetron HCl 4 mg 10/24/18 10:05 10/25/18 17:26 Zofran IV 4 mg Q6H PRN Administration Nausea And Vomiting Pantoprazole Sodium 40 mg 10/30/18 22:00 11/03/18 09:42 Protonix IV 40 mg BID RICK Administration Phenol 1 spray 10/28/18 10:16 Chloraseptic MM PRN PRN Sore Throat Promethazine HCl 25 mg 10/22/18 20:10 10/22/18 21:21 Phenergan AR 25 mg Q6H PRN Administration Nausea And Vomiting Sodium Chloride 10 ml 10/22/18 22:00 11/03/18 09:46 Sodium Chloride Flush Syringe 10 Ml IV 10 ml BID RICK Administration Sodium Chloride 10 ml 10/22/18 20:10 10/24/18 18:32 Sodium Chloride Flush Syringe 10 Ml IV 10 ml PRN PRN Administration LINE FLUSH
[2018-11-03] MEDS ORDERED: TPN ADULT 2,400 ML IV SCH (20:00)
[2018-11-04] MEDS: DUONEB *Not for PRN Use IH SCH ×5 (04:13→20:42)
--- NOTE | 2018-11-04 04:58 | Consultation ---
REFERRING PHYSICIAN: Dr. Juarez. REASON FOR CONSULTATION: Thrombocytopenia. HISTORY OF PRESENT ILLNESS: I saw the patient, a 73-year-old female in the medical floor. The patient has been in the hospital for a few days with nausea, vomiting, diarrhea. This time the patient has been seen by surgical team, Pulmonary team, GI team, and Nephrology. The patient was found to have bowel obstruction and respiratory failure. She was intubated, extubated, and then reintubated. For blood culture abnormality, ID team is following the patient. I have been asked to evaluate the patient because of the low platelet at admission and later on platelet was normal, recently it became 130 and then 60s. PAST MEDICAL HISTORY: COPD, hypertension, lupus, fibromyalgia, opioid dependence, candidemia during this admission, aspiration pneumonia, respiratory failure, gastric perforation seen by General Surgery and GI, renal impairment. PAST MEDICAL HISTORY: As above. PAST SURGICAL HISTORY: Cholecystectomy, hysterectomy, hip surgery. SOCIAL HISTORY: Lives with her . Former smoker. FAMILY HISTORY: Noncontributory. ALLERGIES: SULFA, REGLAN. PRESENT MEDICATIONS: Include Tylenol, TPN, cefepime, fentanyl, hydralazine, insulin, Levaquin, and Flagyl. PHYSICAL EXAMINATION: VITAL SIGNS: Temperature 97, pulse 99, respirations 28, and BP is 110/56. HEENT: No pallor, no icterus. Intubated. NECK: No neck lymph nodes. HEART: S1, S2, central line present. LUNGS: Clear to auscultation. ABDOMEN: Soft, no rebound. EXTREMITIES: No calf tenderness. NEUROLOGIC: Alert, awake, nods to questions. LABORATORY DATA: White cells 16, hemoglobin 11, MCV 94, platelet 136. Platelet count was 64 on 11/01/2018, potassium 3.1, creatinine 1, calcium 7.7, bilirubin 0.3. RADIOLOGY: CT abdomen has been done, large bilateral pleural effusion, ascites present. Previous total colectomy, small bowel thickening. ASSESSMENT AND PLAN: 1. Thrombocytopenia, likely medication related. Today's platelet count is better. We will observe. 2. History of colon surgery in the past, details not clear. 3. History of bowel issues. Seen by surgical team. 4. On TPN. 5. Ayla, ID following. 6. Chronic obstructive pulmonary disease. 7. Hypertension. 8. History of lupus. 9. Aspiration pneumonia. 10. The patient on ventilation. 11. Renal impairment. I will follow the patient during inpatient stay and then in the clinic setting. At this time, platelets are improving. We will follow the trend. JOB# [id number] NM/NTS
[2018-11-04] MEDS: HumaLOG SUB-Q SCH ×4 (05:48→23:49)
[2018-11-04] MEDS: FLAGYL 500 MG/100 ML 500 MG/100 ML BAG IV SCH ×3 (06:55→22:21)
[2018-11-04] MEDS: LOPRESSOR IV SCH ×3 (08:04→20:43)
[2018-11-04] MEDS: MORPHINE IV PRN ×3 (08:37→17:56)
--- NOTE | 2018-11-04 09:03 | Progress Note ---
Assessment and Plan 73 y/o female with bowel obstruction and now acute respiratory failure with hypercapnea, likely multifactorial from pain medications, anti-psychotic therapy and inability to take deep breaths for ventilation, now with fungemia from picc line placement. 1. Follow up blood cultures. 2. continue daily pSV trials 3. Continue TPN 4. abx therapy per ID 5. Will discuss with surgery. Pulm status is pretty stable and I would like to extubate kiel. If repeat imaging of abdomen is warranted would suggest lets go ahead and get now, while intubated in case there is something invasive that needs to be done. If not would like to proceed with extubation kiel. CCT 31 minutes. Subjective Date of service: 11/04/18 Principal diagnosis: colitis, N/V/D Interval history: No acute events. Awake and alert. at bedside. Currently on 35% and 7 of PEEP. Objective Vital Signs - 12hr 11/03/18 11/03/18 11/03/18 21:00 22:00 22:57 Temperature 98.1 F Pulse Rate 97 H 99 H Pulse Rate [ Anterior Bilateral Throughout] Pulse Rate [ From Monitor] Respiratory 23 25 H Rate Respiratory Rate [Anterior Bilateral Throughout] Blood Pressure 116/52 126/54 O2 Sat by Pulse 100 100 Oximetry 11/03/18 11/03/18 11/03/18 23:00 23:21 23:23 Temperature Pulse Rate 101 H 102 H 105 H Pulse Rate [ Anterior Bilateral Throughout] Pulse Rate [ From Monitor] Respiratory 28 H 28 H Rate Respiratory Rate [Anterior Bilateral Throughout] Blood Pressure 127/57 127/57 O2 Sat by Pulse 99 99 Oximetry 11/03/18 11/03/18 11/04/18 23:27 23:28 00:00 Temperature Pulse Rate 103 H 104 H Pulse Rate [ 101 H Anterior Bilateral Throughout] Pulse Rate [ From Monitor] Respiratory 26 H Rate Respiratory 24 Rate [Anterior Bilateral Throughout] Blood Pressure 132/59 127/59 O2 Sat by Pulse 100 99 Oximetry 11/04/18 11/04/18 11/04/18 01:00 02:00 03:01 Temperature Pulse Rate 104 H 105 H 113 H Pulse Rate [ Anterior Bilateral Throughout] Pulse Rate [ From Monitor] Respiratory 26 H 27 H 27 H Rate Respiratory Rate [Anterior Bilateral Throughout] Blood Pressure 132/54 136/61 163/57 O2 Sat by Pulse 100 100 99 Oximetry 11/04/18 11/04/18 11/04/18 03:20 04:00 05:00 Temperature 98.8 F Pulse Rate 109 H 106 H Pulse Rate [ 109 H Anterior Bilateral Throughout] Pulse Rate [ From Monitor] Respiratory 28 H 24 Rate Respiratory 29 H Rate [Anterior Bilateral Throughout] Blood Pressure 132/66 121/58 O2 Sat by Pulse 99 100 Oximetry 11/04/18 11/04/18 11/04/18 05:30 06:00 06:30 Temperature Pulse Rate 106 H 108 H 112 H Pulse Rate [ Anterior Bilateral Throughout] Pulse Rate [ From Monitor] Respiratory 28 H 25 H 29 H Rate Respiratory Rate [Anterior Bilateral Throughout] Blood Pressure 131/68 131/68 122/81 O2 Sat by Pulse 100 100 100 Oximetry 11/04/18 11/04/18 11/04/18 07:00 07:30 08:00 Temperature 98.8 F Pulse Rate 112 H 107 H 108 H Pulse Rate [ Anterior Bilateral Throughout] Pulse Rate [ 101 H From Monitor] Respiratory 28 H 25 H 29 H Rate Respiratory Rate [Anterior Bilateral Throughout] Blood Pressure 148/67 131/44 121/56 O2 Sat by Pulse 100 100 100 Oximetry 11/04/18 08:04 Temperature Pulse Rate 107 H Pulse Rate [ Anterior Bilateral Throughout] Pulse Rate [ From Monitor] Respiratory Rate Respiratory Rate [Anterior Bilateral Throughout] Blood Pressure 98/64 O2 Sat by Pulse Oximetry Constitutional: no acute distress, alert Eyes: non-icteric ENT: other (orally intubated) Neck: supple, no JVD Effort: mildly labored Ascultation: Bilateral: clear, diminished breath sounds (at bases) Percussion: Bilateral: not dull Cardiovascular: regular rate and rhythm Gastrointestinal: hypoactive bowel sounds, other (soft and depressible. Decreased bowel sounds, no rebound tenderness mild distention) Integumentary: normal Extremities: no edema Neurologic: normal mental status, non-focal exam Psychiatric: anxious CBC and BMP: 11/03/18 11:30 11/03/18 11:30 ABG, PT/INR, D-dimer: ABG POC ABG pH 7.365 (7.35-7.45) 11/04/18 05:15 POC ABG pCO2 30.9 (35-45) L 11/04/18 05:15 POC ABG pO2 192 (80-105) H 11/04/18 05:15 POC ABG HCO3 17.7 (22-26 mml/L) 11/04/18 05:15 POC ABG Total CO2 19 (23-27mmol/L) 11/04/18 05:15 POC ABG O2 Sat 100 11/04/18 05:15 Abnormal lab findings: Abnormal Labs 10/22/18 10/22/18 10/22/18 15:31 15:54 15:54 WBC 11.5 H RBC 5.35 H Hgb 17.4 H Hct 50.3 H MCV MCH 33 H MCHC 35 H Plt Count Lymph % (Auto) 12.6 L [place] % (Auto) 14.8 H Lymph # [place] # 1.7 H Seg Neutrophils % 72.5 H Seg Neuts % (Manual) Lymphocytes % (Manual) Seg Neutrophils # 8.3 H Seg Neutrophils # Man Lymphocytes # (Manual) POC ABG pH POC ABG pCO2 POC ABG pO2 Sodium 134 L Potassium Chloride 88.1 L Carbon Dioxide BUN 51 H Creatinine 2.1 H Glucose 166 H POC Glucose Calcium Phosphorus Magnesium Total Protein Albumin 3.4 L Lipase 10 L Free T4 10/23/18 10/23/18 10/23/18 04:32 04:32 10:53 WBC RBC Hgb Hct MCV MCH MCHC Plt Count Lymph % (Auto) 10.2 L [place] % (Auto) 14.7 H Lymph # 0.7 L [place] # 1.0 H Seg Neutrophils % 74.9 H Seg Neuts % (Manual) Lymphocytes % (Manual) Seg Neutrophils # Seg Neutrophils # Man Lymphocytes # (Manual) POC ABG pH POC ABG pCO2 POC ABG pO2 Sodium Potassium 3.1 L D 3.5 L Chloride Carbon Dioxide BUN 41 H 37 H Creatinine Glucose 111 H 110 H POC Glucose Calcium 8.1 L 8.1 L Phosphorus Magnesium Total Protein Albumin Lipase Free T4 10/24/18 10/24/18 10/25/18 05:34 05:34 04:51 WBC RBC Hgb Hct MCV MCH MCHC Plt Count Lymph % (Auto) [place] % (Auto) Lymph # [place] # Seg Neutrophils % Seg Neuts % (Manual) Lymphocytes % (Manual) Seg Neutrophils # Seg Neutrophils # Man Lymphocytes # (Manual) POC ABG pH POC ABG pCO2 POC ABG pO2 Sodium Potassium 3.2 L 3.1 L Chloride 109.8 H 114.2 H Carbon Dioxide 17 L D BUN 21 H Creatinine Glucose 134 H 171 H POC Glucose Calcium 7.7 L 7.0 L Phosphorus 0.80 L* Magnesium Total Protein Albumin Lipase Free T4 10/25/18 10/26/18 10/26/18 06:07 02:58 04:57 WBC RBC Hgb Hct MCV 99 H MCH 33 H MCHC Plt Count Lymph % (Auto) [place] % (Auto) Lymph # [place] # Seg Neutrophils % Seg Neuts % (Manual) Lymphocytes % (Manual) Seg Neutrophils # Seg Neutrophils # Man Lymphocytes # (Manual) POC ABG pH 7.090 L 7.320 L POC ABG pCO2 65.0 H 32.8 L POC ABG pO2 76 L Sodium Potassium Chloride Carbon Dioxide BUN Creatinine Glucose POC Glucose Calcium Phosphorus Magnesium Total Protein Albumin Lipase Free T4 10/26/18 10/26/18 10/26/18 06:03 06:03 11:52 WBC 23.8 H RBC Hgb 15.4 H Hct 46.1 H D MCV MCH MCHC Plt Count Lymph % (Auto) [place] % (Auto) Lymph # [place] # Seg Neutrophils % Seg Neuts % (Manual) Lymphocytes % (Manual) Seg Neutrophils # Seg Neutrophils # Man Lymphocytes # (Manual) POC ABG pH POC ABG pCO2 POC ABG pO2 Sodium Potassium Chloride 109.5 H Carbon Dioxide 18 L BUN Creatinine Glucose 128 H POC Glucose 117 H Calcium 8.3 L D Phosphorus Magnesium Total Protein Albumin Lipase Free T4 10/26/18 10/26/18 10/26/18 13:54 17:10 17:32 WBC RBC Hgb Hct MCV MCH MCHC Plt Count Lymph % (Auto) [place] % (Auto) Lymph # [place] # Seg Neutrophils % Seg Neuts % (Manual) Lymphocytes % (Manual) Seg Neutrophils # Seg Neutrophils # Man Lymphocytes # (Manual) POC ABG pH 7.215 L POC ABG pCO2 31.8 L POC ABG pO2 69 L 204 H Sodium Potassium 3.0 L D Chloride 114.5 H Carbon Dioxide 21 L BUN Creatinine Glucose POC Glucose Calcium 7.6 L Phosphorus Magnesium 1.40 L Total Protein Albumin Lipase Free T4 10/26/18 10/27/18 10/27/18 23:13 00:40 01:09 WBC RBC Hgb Hct MCV MCH MCHC Plt Count Lymph % (Auto) [place] % (Auto) Lymph # [place] # Seg Neutrophils % Seg Neuts % (Manual) Lymphocytes % (Manual) Seg Neutrophils # Seg Neutrophils # Man Lymphocytes # (Manual) POC ABG pH POC ABG pCO2 POC ABG pO2 Sodium Potassium 3.4 L Chloride 115.0 H Carbon Dioxide 14 L D BUN Creatinine Glucose 228 H POC Glucose 48 L 264 H Calcium 7.1 L Phosphorus Magnesium Total Protein Albumin Lipase Free T4 10/27/18 10/27/18 10/27/18 05:00 05:00 05:16 WBC 22.5 H RBC Hgb 14.7 H Hct 44.4 H MCV MCH MCHC Plt Count Lymph % (Auto) [place] % (Auto) Lymph # [place] # Seg Neutrophils % Seg Neuts % (Manual) Lymphocytes % (Manual) Seg Neutrophils # Seg Neutrophils # Man Lymphocytes # (Manual) POC ABG pH 7.304 L POC ABG pCO2 POC ABG pO2 116 H Sodium Potassium Chloride 118.4 H Carbon Dioxide 16 L BUN Creatinine Glucose 123 H POC Glucose Calcium 7.7 L Phosphorus Magnesium 2.60 H Total Protein Albumin Lipase Free T4 10/28/18 10/28/18 10/28/18 04:25 04:25 15:37 WBC 23.5 H RBC Hgb Hct MCV MCH MCHC Plt Count Lymph % (Auto) [place] % (Auto) Lymph # [place] # Seg Neutrophils % Seg Neuts % (Manual) Lymphocytes % (Manual) Seg Neutrophils # Seg Neutrophils # Man Lymphocytes # (Manual) POC ABG pH POC ABG pCO2 POC ABG pO2 Sodium 147 H Potassium Chloride 116.9 H Carbon Dioxide 16 L BUN 23 H Creatinine Glucose POC Glucose 114 H Calcium 8.0 L Phosphorus Magnesium Total Protein Albumin Lipase Free T4 10/28/18 10/28/18 10/28/18 20:33 22:07 23:31 WBC RBC Hgb Hct MCV MCH MCHC Plt Count Lymph % (Auto) [place] % (Auto) Lymph # [place] # Seg Neutrophils % Seg Neuts % (Manual) Lymphocytes % (Manual) Seg Neutrophils # Seg Neutrophils # Man Lymphocytes # (Manual) POC ABG pH 7.202 L 7.235 L POC ABG pCO2 POC ABG pO2 71 L Sodium Potassium Chloride Carbon Dioxide BUN Creatinine Glucose POC Glucose 207 H Calcium Phosphorus Magnesium Total Protein Albumin Lipase Free T4 10/29/18 10/29/18 10/29/18 04:30 04:30 05:26 WBC 21.1 H RBC Hgb Hct MCV MCH MCHC Plt Count Lymph % (Auto) [place] % (Auto) Lymph # [place] # Seg Neutrophils % Seg Neuts % (Manual) 97.0 H Lymphocytes % (Manual) 3.0 L Seg Neutrophils # Seg Neutrophils # Man 20.5 H Lymphocytes # (Manual) 0.6 L POC ABG pH 7.305 L POC ABG pCO2 30.5 L POC ABG pO2 75 L Sodium 147 H Potassium 3.5 L Chloride 120.0 H Carbon Dioxide 17 L BUN 30 H Creatinine Glucose 246 H POC Glucose Calcium 7.9 L Phosphorus Magnesium Total Protein Albumin Lipase Free T4 10/29/18 10/29/18 10/29/18 05:36 11:39 18:00 WBC RBC Hgb Hct MCV MCH MCHC Plt Count Lymph % (Auto) [place] % (Auto) Lymph # [place] # Seg Neutrophils % Seg Neuts % (Manual) Lymphocytes % (Manual) Seg Neutrophils # Seg Neutrophils # Man Lymphocytes # (Manual) POC ABG pH POC ABG pCO2 POC ABG pO2 Sodium Potassium Chloride Carbon Dioxide BUN Creatinine Glucose POC Glucose 204 H 224 H 221 H Calcium Phosphorus Magnesium Total Protein Albumin Lipase Free T4 10/29/18 10/30/18 10/30/18 23:17 05:00 05:00 WBC 21.4 H RBC Hgb Hct MCV MCH MCHC Plt Count 134 L Lymph % (Auto) [place] % (Auto) Lymph # [place] # Seg Neutrophils % Seg Neuts % (Manual) 97.0 H Lymphocytes % (Manual) 3.0 L Seg Neutrophils # Seg Neutrophils # Man 20.8 H Lymphocytes # (Manual) 0.6 L POC ABG pH POC ABG pCO2 POC ABG pO2 Sodium 148 H Potassium 3.1 L Chloride 120.3 H Carbon Dioxide 18 L BUN 31 H Creatinine Glucose 205 H POC Glucose 181 H Calcium 8.0 L Phosphorus Magnesium Total Protein Albumin Lipase Free T4 10/30/18 10/30/18 10/30/18 05:14 05:25 05:26 WBC RBC Hgb Hct MCV MCH MCHC Plt Count Lymph % (Auto) [place] % (Auto) Lymph # [place] # Seg Neutrophils % Seg Neuts % (Manual) Lymphocytes % (Manual) Seg Neutrophils # Seg Neutrophils # Man Lymphocytes # (Manual) POC ABG pH 7.296 L 7.245 L POC ABG pCO2 31.1 L POC ABG pO2 54 L 59 L Sodium Potassium Chloride Carbon Dioxide BUN Creatinine Glucose POC Glucose 199 H Calcium Phosphorus Magnesium Total Protein Albumin Lipase Free T4 10/30/18 10/30/18 10/31/18 13:23 18:25 00:22 WBC RBC Hgb Hct MCV MCH MCHC Plt Count Lymph % (Auto) [place] % (Auto) Lymph # [place] # Seg Neutrophils % Seg Neuts % (Manual) Lymphocytes % (Manual) Seg Neutrophils # Seg Neutrophils # Man Lymphocytes # (Manual) POC ABG pH POC ABG pCO2 POC ABG pO2 Sodium Potassium Chloride Carbon Dioxide BUN Creatinine Glucose POC Glucose 146 H 158 H 162 H Calcium Phosphorus Magnesium Total Protein Albumin Lipase Free T4 10/31/18 10/31/18 10/31/18 04:39 05:14 07:05 WBC RBC Hgb Hct MCV MCH MCHC Plt Count Lymph % (Auto) [place] % (Auto) Lymph # [place] # Seg Neutrophils % Seg Neuts % (Manual) Lymphocytes % (Manual) Seg Neutrophils # Seg Neutrophils # Man Lymphocytes # (Manual) POC ABG pH 7.238 L POC ABG pCO2 POC ABG pO2 Sodium Potassium Chloride 115.8 H Carbon Dioxide 18 L BUN 39 H Creatinine 1.3 H Glucose 167 H POC Glucose 145 H Calcium 7.5 L Phosphorus 1.80 L Magnesium Total Protein Albumin Lipase Free T4 10/31/18 10/31/18 10/31/18 10:43 12:03 17:00 WBC RBC Hgb Hct MCV MCH MCHC Plt Count Lymph % (Auto) [place] % (Auto) Lymph # [place] # Seg Neutrophils % Seg Neuts % (Manual) Lymphocytes % (Manual) Seg Neutrophils # Seg Neutrophils # Man Lymphocytes # (Manual) POC ABG pH 7.304 L POC ABG pCO2 33.3 L POC ABG pO2 Sodium Potassium Chloride Carbon Dioxide BUN Creatinine Glucose POC Glucose 159 H Calcium Phosphorus Magnesium Total Protein Albumin Lipase Free T4 0.49 L 10/31/18 11/01/18 11/01/18 17:00 00:44 05:27 WBC RBC Hgb Hct MCV MCH MCHC Plt Count Lymph % (Auto) [place] % (Auto) Lymph # [place] # Seg Neutrophils % Seg Neuts % (Manual) Lymphocytes % (Manual) Seg Neutrophils # Seg Neutrophils # Man Lymphocytes # (Manual) POC ABG pH 7.248 L POC ABG pCO2 34.8 L POC ABG pO2 135 H Sodium Potassium Chloride Carbon Dioxide BUN Creatinine Glucose POC Glucose 127 H 118 H Calcium Phosphorus Magnesium Total Protein Albumin Lipase Free T4 11/01/18 11/01/18 11/01/18 06:40 06:40 06:53 WBC 18.9 H RBC 3.63 L Hgb Hct MCV MCH MCHC Plt Count 64 L Lymph % (Auto) [place] % (Auto) Lymph # [place] # Seg Neutrophils % Seg Neuts % (Manual) 98.0 H Lymphocytes % (Manual) 1.0 L Seg Neutrophils # Seg Neutrophils # Man 18.5 H Lymphocytes # (Manual) 0.2 L POC ABG pH POC ABG pCO2 POC ABG pO2 Sodium Potassium 3.5 L Chloride 114.2 H Carbon Dioxide 17 L BUN 49 H Creatinine Glucose 107 H POC Glucose 127 H Calcium 7.3 L Phosphorus Magnesium 1.60 L Total Protein Albumin Lipase Free T4 11/01/18 11/01/18 11/01/18 11:49 13:13 17:24 WBC RBC Hgb Hct MCV MCH MCHC Plt Count Lymph % (Auto) [place] % (Auto) Lymph # [place] # Seg Neutrophils % Seg Neuts % (Manual) Lymphocytes % (Manual) Seg Neutrophils # Seg Neutrophils # Man Lymphocytes # (Manual) POC ABG pH POC ABG pCO2 POC ABG pO2 182 H Sodium Potassium Chloride Carbon Dioxide BUN Creatinine Glucose POC Glucose 134 H 111 H Calcium Phosphorus Magnesium Total Protein Albumin Lipase Free T4 11/01/18 11/02/18 11/02/18 23:07 04:32 05:00 WBC RBC Hgb Hct MCV MCH MCHC Plt Count Lymph % (Auto) [place] % (Auto) Lymph # [place] # Seg Neutrophils % Seg Neuts % (Manual) Lymphocytes % (Manual) Seg Neutrophils # Seg Neutrophils # Man Lymphocytes # (Manual) POC ABG pH 7.244 L POC ABG pCO2 33.2 L POC ABG pO2 123 H Sodium Potassium 3.0 L Chloride 114.1 H Carbon Dioxide 15 L BUN 47 H Creatinine Glucose 127 H POC Glucose 123 H Calcium 7.7 L Phosphorus Magnesium Total Protein Albumin Lipase Free T4 11/02/18 11/02/18 11/02/18 05:00 05:29 11:27 WBC RBC Hgb Hct MCV MCH MCHC Plt Count Lymph % (Auto) [place] % (Auto) Lymph # [place] # Seg Neutrophils % Seg Neuts % (Manual) Lymphocytes % (Manual) Seg Neutrophils # Seg Neutrophils # Man Lymphocytes # (Manual) POC ABG pH POC ABG pCO2 POC ABG pO2 Sodium Potassium Chloride Carbon Dioxide BUN Creatinine Glucose POC Glucose 118 H 137 H Calcium Phosphorus Magnesium 1.60 L Total Protein Albumin Lipase Free T4 11/02/18 11/02/18 11/03/18 12:53 23:35 04:14 WBC RBC Hgb Hct MCV MCH MCHC Plt Count Lymph % (Auto) [place] % (Auto) Lymph # [place] # Seg Neutrophils % Seg Neuts % (Manual) Lymphocytes % (Manual) Seg Neutrophils # Seg Neutrophils # Man Lymphocytes # (Manual) POC ABG pH POC ABG pCO2 30.3 L POC ABG pO2 134 H 129 H Sodium Potassium Chloride Carbon Dioxide BUN Creatinine Glucose POC Glucose 115 H Calcium Phosphorus Magnesium Total Protein Albumin Lipase Free T4 11/03/18 11/03/18 11/03/18 05:34 11:30 11:30 WBC 16.4 H RBC 3.50 L Hgb Hct MCV MCH MCHC Plt Count 136 L D Lymph % (Auto) [place] % (Auto) Lymph # [place] # Seg Neutrophils % Seg Neuts % (Manual) 97.0 H Lymphocytes % (Manual) 2.0 L Seg Neutrophils # Seg Neutrophils # Man 15.9 H Lymphocytes # (Manual) 0.3 L POC ABG pH POC ABG pCO2 POC ABG pO2 Sodium Potassium 3.1 L Chloride 110.4 H Carbon Dioxide 17 L BUN 41 H Creatinine Glucose 129 H POC Glucose 116 H Calcium 7.7 L Phosphorus Magnesium 1.60 L Total Protein 4.2 L Albumin 1.2 L Lipase Free T4 11/03/18 11/03/18 11/03/18 12:01 17:35 21:37 WBC RBC Hgb Hct MCV MCH MCHC Plt Count Lymph % (Auto) [place] % (Auto) Lymph # [place] # Seg Neutrophils % Seg Neuts % (Manual) Lymphocytes % (Manual) Seg Neutrophils # Seg Neutrophils # Man Lymphocytes # (Manual) POC ABG pH POC ABG pCO2 POC ABG pO2 Sodium Potassium Chloride Carbon Dioxide BUN Creatinine Glucose POC Glucose 132 H 132 H 126 H Calcium Phosphorus Magnesium Total Protein Albumin Lipase Free T4 11/03/18 11/04/18 11/04/18 23:30 05:14 05:15 WBC RBC Hgb Hct MCV MCH MCHC Plt Count Lymph % (Auto) [place] % (Auto) Lymph # [place] # Seg Neutrophils % Seg Neuts % (Manual) Lymphocytes % (Manual) Seg Neutrophils # Seg Neutrophils # Man Lymphocytes # (Manual) POC ABG pH POC ABG pCO2 30.9 L POC ABG pO2 192 H Sodium Potassium Chloride Carbon Dioxide BUN Creatinine Glucose POC Glucose 115 H 123 H Calcium Phosphorus Magnesium Total Protein Albumin Lipase Free T4 Allied health notes reviewed: nursing
[2018-11-04] MEDS: LEVAQUIN 500MG/100ML 500 MG/100 ML BAG IV SCH (09:16)
[2018-11-04] MEDS: MAXIPIME/NS 2 GM/100 ML 2 GM/100 ML BAG IV SCH ×2 (09:17→22:21)
[2018-11-04] MEDS: MYCAMINE 100 MG in NACL 0.9% 100 ML IV SCH (09:17)
[2018-11-04] MEDS: SODIUM CHLORIDE FLUSH SYRINGE 10 ML IV SCH ×2 (09:17→22:21)
--- NOTE | 2018-11-04 09:28 | Progress Note ---
Assessment and Plan Assessment and plan: Patient is 73-year-old female with history of hypertension, lupus, fibromyalgia, COPD, opioid dependence (follows Dr. Felix Muñiz at pain clinic) who presented to [facility] ED with complaints of intractable nausea, vomiting, diarrhea for 3 days. On initial presentation to the ED she was found to be tachycardiac with heart rate 113 BPM, leukocytosis with WBC 11.5, elevated BUN/Cr 51/2.1. Patient has history of COPD and at baseline does not require home oxygen use. She was admitted to [facility]. GI was consulted, she was evaluated. CT Abdomen revealed partial SBO versus ileus therefore surgeon consulted. Also patient became more short of breath, placed on BIPAP with no improvement then intubated 10/26/18 for acute resp failure and transferred to ICU. Obstruction series completed on 10/27 which showed improved but small bowel and stomach dilatation. Follow-up series on 10/28 showed no significant change since previous study. NG tube was removed due to patient not tolerating/refusing. Patient was placed back on BiPAP but decompensated on the night of 10/28/18 and had to be reintubated. Patient currently on mechanical ventilation. Patient has had further complications now with findings consistent with contained gastric perforation on repeat CT scan 10/30. Also, patient has cultures that were positive and consistent with fungemia. Gastric perforation. Repeat CT scan on 10/30 revealed pSBO resolved, no evidence for bowel ischemia. Small contained gastric perforation at lesser curve. No gross free air or contrast extravasation. Surgery recommends conservative management with continuing NGT, NPO, gentle IVF and when necessary pain control. Will reimage stomach when pulm status is more stable to make sure there is no leak. Sepsis/fungemia. Continue antibiotics/antifungals and follow cultures. ID following. May need to switch off PICC to other access, hold IV nutrition ? Thrombocytopenia. Etiology likely secondary to sepsis. Hematology following. Bilateral upper lobe/aspiration pneumonia. Sputum culture positive for Escherichia coli and stenotrophomonas. Continue antibiotics per ID. Partial small bowel obstruction. Continue NGT per surgery. Acute exacerbation COPD. Scheduled Duo Nebs and Pulmicort; albuterol when necessary Acute hypoxic respiratory failure. Patient was reintubated on 10/28/18 and currently on mechanical ventilation. Etiology secondary to COPD/pneumonia/sepsis. Wean mechanical ventilation per pulmonary. Hypokalemia. Replete potassium. Hyponatremia. Repeat in am Hypertension. IV hydralazine when necessary Lupus. Supportive care Fibromyalgia. supportive care History of opioid dependence ADWOA due to vasomotor nephropathy, now resolved Full code status I discussed with patient and at bedside. The high probability of a clinically significant, sudden or life threatening deterioration of the [GI and respiratory] system(s) required my full and direct attention, intervention and personal management. The aggregate critical care time was [35] minutes. This time is in addition to time spent performing repo rted procedures but includes the following: [x] Data Review and interpretation [x] Patient assessment and monitoring of vital signs [x] Documentation [x] Medication orders and management History Interval history: Still intubated Hospitalist Physical - Physical exam Narrative exam: Gen: Not in acute distress, lying in bed, HEENT: Normocephalic, atraumatic, NG tube Neck: supple, no JVD Heart: S1 and S2 reg, no murmurs, rubs or gallop Lungs: Clear bilat, decreased breath sounds bilat. no wheeze Abd: soft, mild tender, no rebound tenderness, non distended, BS present Ext: No edema, no clubbing, no cyanosis, Neuro: intubated, Awake,alert, oriented x 3, moves all ext, non focal - Constitutional Vitals: Temp Pulse Resp BP Pulse Ox 98.8 F 107 H 30 H 98/64 96 11/04/18 08:00 11/04/18 08:04 11/04/18 08:00 11/04/18 08:04 11/04/18 08:00 General appearance: Present: other (intubated, opens eyes to commands) Results - Labs CBC & Chem 7: 11/04/18 09:39 11/04/18 09:39 Labs: Laboratory Last Values WBC 16.4 K/mm3 (4.5-11.0) H 11/03/18 11:30 RBC 3.50 M/mm3 (3.65-5.03) L 11/03/18 11:30 Hgb 11.1 gm/dl (10.1-14.3) 11/03/18 11:30 Hct 32.8 % (30.3-42.9) 11/03/18 11:30 MCV 94 fl (79-97) 11/03/18 11:30 MCH 32 pg (28-32) 11/03/18 11:30 MCHC 34 % (30-34) 11/03/18 11:30 RDW 14.5 % (13.2-15.2) 11/03/18 11:30 Plt Count 136 K/mm3 (140-440) L D 11/03/18 11:30 Lymph % (Auto) 10.2 % (13.4-35.0) L 10/23/18 04:32 [place] % (Auto) 14.7 % (0.0-7.3) H 10/23/18 04:32 Eos % (Auto) 0.1 % (0.0-4.3) 10/23/18 04:32 Baso % (Auto) 0.1 % (0.0-1.8) 10/23/18 04:32 Lymph # 0.7 K/mm3 (1.2-5.4) L 10/23/18 04:32 [place] # 1.0 K/mm3 (0.0-0.8) H 10/23/18 04:32 Eos # 0.0 K/mm3 (0.0-0.4) 10/23/18 04:32 Baso # 0.0 K/mm3 (0.0-0.1) 10/23/18 04:32 Add Manual Diff Complete 11/03/18 11:30 Total Counted 100 11/03/18 11:30 Seg Neutrophils % Integrity Manager 11/03/18 11:30 Seg Neuts % (Manual) 97.0 % (40.0-70.0) H 11/03/18 11:30 0 % 11/03/18 11:30 2.0 % (13.4-35.0) L 11/03/18 11:30 Reactive Lymphs % (Man) 0 % 11/03/18 11:30 1.0 % (0.0-7.3) 11/03/18 11:30 0 % (0.0-4.3) 11/03/18 11:30 0 % (0.0-1.8) 11/03/18 11:30 0 % 11/03/18 11:30 0 % 11/03/18 11:30 0 % 11/03/18 11:30 0 % 11/03/18 11:30 Nucleated RBC % Not Reportable 11/03/18 11:30 Seg Neutrophils # 5.2 K/mm3 (1.8-7.7) 10/23/18 04:32 Seg Neutrophils # Man 15.9 K/mm3 (1.8-7.7) H 11/03/18 11:30 Band Neutrophils # 0.0 K/mm3 11/03/18 11:30 0.3 K/mm3 (1.2-5.4) L 11/03/18 11:30 Abs React Lymphs (Man) 0.0 K/mm3 11/03/18 11:30 0.2 K/mm3 (0.0-0.8) 11/03/18 11:30 0.0 K/mm3 (0.0-0.4) 11/03/18 11:30 0.0 K/mm3 (0.0-0.1) 11/03/18 11:30 0.0 K/mm3 11/03/18 11:30 0.0 K/mm3 11/03/18 11:30 0.0 K/mm3 11/03/18 11:30 Blast Cells # 0.0 K/mm3 11/03/18 11:30 WBC Morphology Not Reportable 11/03/18 11:30 Hypersegmented Neuts Not Reportable 11/03/18 11:30 Hyposegmented Neuts Not Reportable 11/03/18 11:30 Hypogranular Neuts Not Reportable 11/03/18 11:30 Not Reportable 11/03/18 11:30 Not Reportable 11/03/18 11:30 Not Reportable 11/03/18 11:30 Not Reportable 11/03/18 11:30 Not Reportable 11/03/18 11:30 Not Reportable 11/03/18 11:30 Consistent w auto 11/03/18 11:30 Not Reportable 11/03/18 11:30 Plt Clumps, EDTA Not Reportable 11/03/18 11:30 Not Reportable 11/03/18 11:30 Not Reportable 11/03/18 11:30 Not Reportable 11/03/18 11:30 Plt Morphology Comment Not Reportable 11/03/18 11:30 RBC Morphology Normal 11/03/18 11:30 Dimorphic RBCs Not Reportable 11/03/18 11:30 Not Reportable 11/03/18 11:30 Not Reportable 11/03/18 11:30 Not Reportable 11/03/18 11:30 Not Reportable 11/03/18 11:30 Not Reportable 11/03/18 11:30 Not Reportable 11/03/18 11:30 Not Reportable 11/03/18 11:30 Not Reportable 11/03/18 11:30 Not Reportable 11/03/18 11:30 Not Reportable 11/03/18 11:30 Not Reportable 11/03/18 11:30 Not Reportable 11/03/18 11:30 Not Reportable 11/03/18 11:30 Not Reportable 11/03/18 11:30 Not Reportable 11/03/18 11:30 Not Reportable 11/03/18 11:30 Not Reportable 11/03/18 11:30 Not Reportable 11/03/18 11:30 Not Reportable 11/03/18 11:30 Acanthocytes (Spur) Not Reportable 11/03/18 11:30 Rouleaux Not Reportable 11/03/18 11:30 Not Reportable 11/03/18 11:30 Not Reportable 11/03/18 11:30 Not Reportable 11/03/18 11:30 Not Reportable 11/03/18 11:30 Hem Pathologist Commnt No 11/03/18 11:30 Heparin Anti-Xa, Unfract Negative (Negative) 10/30/18 13:58 POC ABG pH 7.365 (7.35-7.45) 11/04/18 05:15 POC ABG pCO2 30.9 (35-45) L 11/04/18 05:15 POC ABG pO2 192 (80-105) H 11/04/18 05:15 POC ABG HCO3 17.7 (22-26 mml/L) 11/04/18 05:15 POC ABG Total CO2 19 (23-27mmol/L) 11/04/18 05:15 POC ABG O2 Sat 100 11/04/18 05:15 POC ABG Base Excess -8 ((-2) - (+3)mmol/L) 11/04/18 05:15 35 % 11/04/18 05:15 Sodium 144 mmol/L (137-145) 11/03/18 11:30 Potassium 3.1 mmol/L (3.6-5.0) L 11/03/18 11:30 Chloride 110.4 mmol/L (98-107) H 11/03/18 11:30 Carbon Dioxide 17 mmol/L (22-30) L 11/03/18 11:30 20 mmol/L 11/03/18 11:30 BUN 41 mg/dL (7-17) H 11/03/18 11:30 1.0 mg/dL (0.7-1.2) 11/03/18 11:30 Estimated GFR 55 ml/min 11/03/18 11:30 41 % 11/03/18 11:30 Glucose 129 mg/dL (65-100) H 11/03/18 11:30 POC Glucose 123 (70-105) H 11/04/18 05:14 Lactic Acid 1.60 mmol/L (0.7-2.0) 10/26/18 15:03 Calcium 7.7 mg/dL (8.4-10.2) L 11/03/18 11:30 Phosphorus 2.50 mg/dL (2.5-4.5) D 11/03/18 11:30 Magnesium 1.60 mg/dL (1.7-2.3) L 11/03/18 11:30 0.30 mg/dL (0.1-1.2) 11/03/18 11:30 AST 14 units/L (5-40) 11/03/18 11:30 ALT 17 units/L (7-56) 11/03/18 11:30 51 units/L (35-129) 11/03/18 11:30 4.2 g/dL (6.3-8.2) L 11/03/18 11:30 1.2 g/dL (3.9-5) L 11/03/18 11:30 0.4 % 11/03/18 11:30 Triglycerides 132 mg/dL (2-149) 11/01/18 06:40 10 units/L (13-60) L 10/22/18 15:54 TSH 3.150 mlU/mL (0.270-4.200) 10/31/18 17:00 Free T4 0.49 ng/dL (0.76-1.46) L 10/31/18 17:00 Dulce (Yellow) 10/22/18 19:10 Clear (Clear) 10/22/18 19:10 5.0 (5.0-7.0) 10/22/18 19:10 Ur Specific [place] 1.018 (1.003-1.030) 10/22/18 19:10 30 mg/dl mg/dL (Negative) 10/22/18 19:10 Neg mg/dL (Negative) 10/22/18 19:10 Tr mg/dL (Negative) 10/22/18 19:10 Neg (Negative) 10/22/18 19:10 Neg (Negative) 10/22/18 19:10 Neg (Negative) 10/22/18 19:10 < 2.0 mg/dL (<2.0) 10/22/18 19:10 Ur Leukocyte Esterase Neg (Negative) 10/22/18 19:10 1.0 /HPF (0.0-6.0) 10/22/18 19:10 3.0 /HPF (0.0-6.0) 10/22/18 19:10 Heparin-induced Plt Ab Negative (Negative) 10/30/18 13:58 UF Heparin High Dose 0 % Release 10/30/18 13:58 KIMO UFH Low Dose 0.1 0 % Release 10/30/18 13:58 KIMO UFH Low Dose 0.5 0 % Release 10/30/18 13:58 Active Medications - Current Medications Current Medications: Generic Name Dose Route Start Last Admin Trade Name Freq PRN Reason Stop Dose Admin Acetaminophen 650 mg 10/22/18 20:10 Tylenol PO Q4H PRN Pain MILD(1-3)/Fever >100.5/PORTER Albuterol 2.5 mg 10/22/18 20:14 10/28/18 06:34 Proventil IH 2.5 mg Q4HRT PRN Administration Shortness Of Breath Albuterol/Ipratropium 1 ampul 10/28/18 12:00 11/04/18 04:13 Duoneb *Not For Prn Use* IH 1 ampul Q4HRT RICK Administration Budesonide 0.5 mg 10/23/18 08:00 11/03/18 20:04 Pulmicort IH 0.5 mg Q12HRT RICK Administration Dextrose 50 ml 10/26/18 23:40 10/27/18 00:20 D50w (25gm) Syringe IV 50 ml PRN PRN Administration Hypoglycemia Hydralazine HCl 10 mg 10/22/18 21:41 Apresoline IV Q4HR PRN Blood Pressure Fentanyl Citrate 2,000 mcg in 100 mls @ 1.2 mls/hr 10/29/18 11:00 11/03/18 18:50 Fentanyl Drip Premix IV 0 mcg/kg/hr TITR RICK 0 mls/hr Titration Protocol 0.5 MCG/KG/HR Metronidazole 500 mg in 100 mls @ 100 mls/hr 10/30/18 14:00 11/04/18 06:55 Flagyl 500 Mg/100 Ml IV 100 mls/hr Q8HR RICK Administration Protocol Cefepime HCl 2 gm in 100 mls @ 200 mls/hr 10/31/18 22:00 11/04/18 09:17 Maxipime/Ns 2 Gm/100 Ml IV 200 mls/hr Q12HR RICK Administration Protocol Levofloxacin/Dextrose 500 mg in 100 mls @ 100 mls/hr 10/31/18 17:00 11/04/18 09:16 Levaquin 500mg/100ml IV 100 mls/hr Q24HR RICK Administration Protocol Micafungin Sodium 100 mg/ 100 mls @ 100 mls/hr 11/02/18 10:00 11/04/18 09:17 Sodium Chloride IV 100 mls/hr QDAY RICK Administration Protocol Amino Acids/Electrolytes/Dextrose 2,400 mls @ 100 mls/hr 11/03/18 20:00 11/03/18 20:47 Tpn Adult IV 11/04/18 19:59 100 mls/hr DAILY@2000 [facility] Administration Protocol Insulin Human Lispro 0 unit 10/29/18 12:00 11/04/18 05:48 Humalog SUB-Q Not Given Q6HR [facility] Protocol Lorazepam 0.5 mg 10/26/18 22:44 10/26/18 23:14 Ativan IV 0.5 mg Q4H PRN Administration Anxiety Metoprolol Tartrate 5 mg 10/31/18 14:00 11/04/18 08:04 Lopressor IV Not Given TID RICK Morphine Sulfate 2 mg 10/24/18 13:39 11/04/18 08:37 Morphine IV 2 mg Q4H PRN Administration Pain, Moderate (4-6) Ondansetron HCl 4 mg 10/24/18 10:05 10/25/18 17:26 Zofran IV 4 mg Q6H PRN Administration Nausea And Vomiting Pantoprazole Sodium 40 mg 10/30/18 22:00 11/03/18 21:05 Protonix IV 40 mg BID RICK Administration Phenol 1 spray 10/28/18 10:16 Chloraseptic MM PRN PRN Sore Throat Promethazine HCl 25 mg 10/22/18 20:10 10/22/18 21:21 Phenergan CA 25 mg Q6H PRN Administration Nausea And Vomiting Sodium Chloride 10 ml 10/22/18 22:00 11/04/18 09:17 Sodium Chloride Flush Syringe 10 Ml IV 10 ml BID RICK Administration Sodium Chloride 10 ml 10/22/18 20:10 10/24/18 18:32 Sodium Chloride Flush Syringe 10 Ml IV 10 ml PRN PRN Administration LINE FLUSH Nutrition/Malnutrition Assess - Dietary Evaluation Nutrition/Malnutrition Findings: Nutrition Notes Start: 10/23/18 17:03 Freq: Status: Active Protocol: Document 11/03/18 13:00 LP (Rec: 11/03/18 13:03 LP [id number]) Nutrition Notes Initial or Follow up Reassessment Current Diagnosis COPD,Sepsis,Hypertension Other Pertinent Diagnosis Gastric peforation, partial SBO, lupus, opiod dependence, SIRS Current Diet PPN at 100 ml/hr Labs/Tests No labs Pertinent Medications Reviewed Height 5 ft 3 in Weight 68.5 kg [place] Body Weight (kg) 52.27 BMI 26.7 Subjective/Other Information Pt lost PICC line due to yeast in blood. PPN was D/C due to this but has D5W through peripheral. Made RN aware that the TPN is PPN and can be placed instead of the D5W. MD to place line soon and will restart PPN. Pt will remain on PPN until PICC can be replaced. Percent of energy/protein needs met: 48%/100% Burn Absent Trauma Absent #1 Nutrition Diagnosis Inadequate oral intake Diagnosis Progress(for reassessment Continues documentation) Is patient on ventilator? Yes Is Patient Ambulatory and/or Out of Bed No REE-([facility]-confined to bed) 1403.040 Kcal/Kg value to use for calculation 25 Approximate Energy Requirements Using 1713 kcal/Kg Calculation Used for Recommendations Kcal/kg Additional Notes Protein needs are 58-96g (1.2- 2g/kg) Fluid needs are 1ml/kcal Nutrition Intervention Change Diet Order: PPN Nutrition Support: PPN at 100 ml/hr:100 mEq K, Cl /Acetate: 0/100, 16 mEq Mg Kcal 808 Protein (gm) 100 Carbohydrates (gm) 120 Fat (gm) 0 Fluid (mL) 2,400 Fiber (gm) 0 Goal #1 Meet kcal and protein needs as best as possible Anticipated Discharge Needs: Unable to determine at this time Follow-Up By: 11/04/18 Additional Comments Labs in AM: BMP, Mg Phos - Attestation Statement I have reviewed and agreed w/ Malnutrition eval & tx plan: Yes
[2018-11-04] MEDS: PULMICORT IH SCH ×2 (10:09→20:42)
[2018-11-04 10:25] LABS: Hematocrit 29.9 % (30.3-42.9); Hemoglobin 10.2 gm/dl (10.1-14.3); Mean Corpuscular HGB Conc 34 % (30-34); Mean Corpuscular Volume 94 fl (79-97); Platelet Count 145 K/mm3 (140-440); Red Blood Count 3.18 M/mm3 (3.65-5.03); Red Cell Distribution Width 14.8 % (13.2-15.2)
--- NOTE | 2018-11-04 10:31 | Progress Note ---
Assessment and Plan 73 yo F with 1. pSBO - resolved 2. contained gastric perforation 3. VDRF 4. aspiration PNA 5. sepsis 6. Fungemia in blood Obstruction series 10/27 - improved small bowel and stomach dilatation. Obstructions series 10/28 - no significant change since previous study. NGT has been removed Obstruction series 10/29 - relatively normal bowel gas pattern. NGT in place Ct scan A/P from admission reviewed with Dr. Garces - LindyBO. Mesenteric vessels patent. Ct scan C/A/P 10/30 - Images reviewed with Dr. Garces - pSBO resolved, no evidence for bowel ischemia. Small contained gastric perforation at lesser curve. No gross free air or contrast extrav. Ansarca. Bilateral pleural effusions. Bilateral upper lobes infiltrates. Plan: 1. NPO 2. continue NGT to Low continuous WS 3. CT scan Abdomen with oral contrast via NGT to reimage stomach 4. TPN 5. prn pain control 6. DVT ppx 7. vent management per ICU - possible extubation today 8. c/w abx per ID 9. PPI BID - will change to daily if CT negative for leak Discussed plan with Dr. Ni. Thank you, please call with questions. Subjective Date of service: 11/04/18 Narrative: Pt seen and examined. No overnight events. Denies abdominal pain. No f/c. Objective Vital Signs - 12hr 11/03/18 11/03/18 11/03/18 22:57 23:00 23:21 Temperature 98.1 F Pulse Rate 101 H 102 H Pulse Rate [ Anterior Bilateral Throughout] Pulse Rate [ Anterior Bilateral] Pulse Rate [ From Monitor] Respiratory 28 H Rate Respiratory Rate [Anterior Bilateral Throughout] Respiratory Rate [Anterior Bilateral] Blood Pressure 127/57 O2 Sat by Pulse 99 Oximetry 11/03/18 11/03/18 11/03/18 23:23 23:27 23:28 Temperature Pulse Rate 105 H 103 H Pulse Rate [ 101 H Anterior Bilateral Throughout] Pulse Rate [ Anterior Bilateral] Pulse Rate [ From Monitor] Respiratory 28 H Rate Respiratory 24 Rate [Anterior Bilateral Throughout] Respiratory Rate [Anterior Bilateral] Blood Pressure 127/57 132/59 O2 Sat by Pulse 99 100 Oximetry 11/04/18 11/04/18 11/04/18 00:00 01:00 02:00 Temperature Pulse Rate 104 H 104 H 105 H Pulse Rate [ Anterior Bilateral Throughout] Pulse Rate [ Anterior Bilateral] Pulse Rate [ From Monitor] Respiratory 26 H 26 H 27 H Rate Respiratory Rate [Anterior Bilateral Throughout] Respiratory Rate [Anterior Bilateral] Blood Pressure 127/59 132/54 136/61 O2 Sat by Pulse 99 100 100 Oximetry 11/04/18 11/04/18 11/04/18 03:01 03:20 04:00 Temperature 98.8 F Pulse Rate 113 H 109 H Pulse Rate [ 109 H Anterior Bilateral Throughout] Pulse Rate [ Anterior Bilateral] Pulse Rate [ From Monitor] Respiratory 27 H 28 H Rate Respiratory 29 H Rate [Anterior Bilateral Throughout] Respiratory Rate [Anterior Bilateral] Blood Pressure 163/57 132/66 O2 Sat by Pulse 99 99 Oximetry 11/04/18 11/04/18 11/04/18 05:00 05:30 06:00 Temperature Pulse Rate 106 H 106 H 108 H Pulse Rate [ Anterior Bilateral Throughout] Pulse Rate [ Anterior Bilateral] Pulse Rate [ From Monitor] Respiratory 24 28 H 25 H Rate Respiratory Rate [Anterior Bilateral Throughout] Respiratory Rate [Anterior Bilateral] Blood Pressure 121/58 131/68 131/68 O2 Sat by Pulse 100 100 100 Oximetry 11/04/18 11/04/18 11/04/18 06:30 07:00 07:30 Temperature Pulse Rate 112 H 112 H 107 H Pulse Rate [ Anterior Bilateral Throughout] Pulse Rate [ Anterior Bilateral] Pulse Rate [ From Monitor] Respiratory 29 H 28 H 25 H Rate Respiratory Rate [Anterior Bilateral Throughout] Respiratory Rate [Anterior Bilateral] Blood Pressure 122/81 148/67 131/44 O2 Sat by Pulse 100 100 100 Oximetry 11/04/18 11/04/18 11/04/18 08:00 08:04 08:30 Temperature 98.8 F Pulse Rate 108 H 107 H 110 H Pulse Rate [ Anterior Bilateral Throughout] Pulse Rate [ Anterior Bilateral] Pulse Rate [ 101 H From Monitor] Respiratory 29 H 28 H Rate Respiratory Rate [Anterior Bilateral Throughout] Respiratory Rate [Anterior Bilateral] Blood Pressure 121/56 98/64 132/63 O2 Sat by Pulse 100 100 Oximetry 11/04/18 11/04/18 11/04/18 09:00 09:31 10:00 Temperature Pulse Rate 106 H 106 H 113 H Pulse Rate [ Anterior Bilateral Throughout] Pulse Rate [ Anterior Bilateral] Pulse Rate [ From Monitor] Respiratory 28 H 25 H 27 H Rate Respiratory Rate [Anterior Bilateral Throughout] Respiratory Rate [Anterior Bilateral] Blood Pressure 120/58 123/52 132/66 O2 Sat by Pulse 100 100 100 Oximetry 11/04/18 11/04/18 11/04/18 10:09 10:11 10:22 Temperature Pulse Rate 113 H Pulse Rate [ 115 H 114 H Anterior Bilateral Throughout] Pulse Rate [ 115 H 114 H Anterior Bilateral] Pulse Rate [ From Monitor] Respiratory Rate Respiratory 28 H 28 H Rate [Anterior Bilateral Throughout] Respiratory 28 H 28 H Rate [Anterior Bilateral] Blood Pressure 132/66 O2 Sat by Pulse 100 Oximetry - General physical appearance Narrative Exam: Gen: Awake and alert on vent. NAD ENt; NGT with light brown clear gastric drainage CV: s1, S2+. Tachy Resp: on vent Abd: soft, NT, ND Ext: no c/c/e - Labs 11/03/18 11:30 11/03/18 11:30 Diabetes panel 11/03/18 Range/Units 11:30 Sodium 144 (137-145) mmol/L Potassium 3.1 L (3.6-5.0) mmol/L Chloride 110.4 H (98-107) mmol/L Carbon Dioxide 17 L (22-30) mmol/L BUN 41 H (7-17) mg/dL Creatinine 1.0 (0.7-1.2) mg/dL Glucose 129 H (65-100) mg/dL Calcium 7.7 L (8.4-10.2) mg/dL AST 14 (5-40) units/L ALT 17 (7-56) units/L Alkaline Phosphatase 51 (35-129) units/L Total Protein 4.2 L (6.3-8.2) g/dL Albumin 1.2 L (3.9-5) g/dL Calcium panel 11/03/18 Range/Units 11:30 Calcium 7.7 L (8.4-10.2) mg/dL Phosphorus 2.50 D (2.5-4.5) mg/dL Albumin 1.2 L (3.9-5) g/dL Pituitary panel 11/03/18 Range/Units 11:30 Sodium 144 (137-145) mmol/L Potassium 3.1 L (3.6-5.0) mmol/L Chloride 110.4 H (98-107) mmol/L Carbon Dioxide 17 L (22-30) mmol/L BUN 41 H (7-17) mg/dL Creatinine 1.0 (0.7-1.2) mg/dL Glucose 129 H (65-100) mg/dL Calcium 7.7 L (8.4-10.2) mg/dL Adrenal panel 11/03/18 Range/Units 11:30 Sodium 144 (137-145) mmol/L Potassium 3.1 L (3.6-5.0) mmol/L Chloride 110.4 H (98-107) mmol/L Carbon Dioxide 17 L (22-30) mmol/L BUN 41 H (7-17) mg/dL Creatinine 1.0 (0.7-1.2) mg/dL Glucose 129 H (65-100) mg/dL Calcium 7.7 L (8.4-10.2) mg/dL Total Bilirubin 0.30 (0.1-1.2) mg/dL AST 14 (5-40) units/L ALT 17 (7-56) units/L Alkaline Phosphatase 51 (35-129) units/L Total Protein 4.2 L (6.3-8.2) g/dL Albumin 1.2 L (3.9-5) g/dL
--- NOTE | 2018-11-04 10:46 | Progress Note ---
Assessment and Plan - Patient Problems (1) Hypernatremia Current Visit: Yes Status: Acute Plan to address problem: resolved, now on TPN (2) Acute renal failure Current Visit: Yes Status: Acute Plan to address problem: Prerenal azotemia secondary to volume depletion, now improved, pt remains non- oliguric. cont TPN. Follow-up electrolytes and renal function. (3) Hypokalemia Current Visit: Yes Status: Acute Plan to address problem: K Supplementation with KCl to target K > 4, cont TPN. (4) Abdominal distention, non-gaseous Current Visit: Yes Status: Acute Plan to address problem: being conservatively managed per general surgery (5) Acute respiratory failure with hypoxia Current Visit: Yes Status: Acute Plan to address problem: Continue vent management by pulmonary Subjective Date of service: 11/04/18 Principal diagnosis: colitis, N/V/D Interval history: Pt is on on vent, being weaned. remains on NGT, on TPN Objective - Vital Signs Vital signs: Vital Signs - 12hr 11/03/18 11/03/18 11/03/18 22:57 23:00 23:21 Temperature 98.1 F Pulse Rate 101 H 102 H Pulse Rate [ Anterior Bilateral Throughout] Pulse Rate [ Anterior Bilateral] Pulse Rate [ From Monitor] Respiratory 28 H Rate Respiratory Rate [Anterior Bilateral Throughout] Respiratory Rate [Anterior Bilateral] Blood Pressure 127/57 O2 Sat by Pulse 99 Oximetry 11/03/18 11/03/18 11/03/18 23:23 23:27 23:28 Temperature Pulse Rate 105 H 103 H Pulse Rate [ 101 H Anterior Bilateral Throughout] Pulse Rate [ Anterior Bilateral] Pulse Rate [ From Monitor] Respiratory 28 H Rate Respiratory 24 Rate [Anterior Bilateral Throughout] Respiratory Rate [Anterior Bilateral] Blood Pressure 127/57 132/59 O2 Sat by Pulse 99 100 Oximetry 11/04/18 11/04/18 11/04/18 00:00 01:00 02:00 Temperature Pulse Rate 104 H 104 H 105 H Pulse Rate [ Anterior Bilateral Throughout] Pulse Rate [ Anterior Bilateral] Pulse Rate [ From Monitor] Respiratory 26 H 26 H 27 H Rate Respiratory Rate [Anterior Bilateral Throughout] Respiratory Rate [Anterior Bilateral] Blood Pressure 127/59 132/54 136/61 O2 Sat by Pulse 99 100 100 Oximetry 11/04/18 11/04/18 11/04/18 03:01 03:20 04:00 Temperature 98.8 F Pulse Rate 113 H 109 H Pulse Rate [ 109 H Anterior Bilateral Throughout] Pulse Rate [ Anterior Bilateral] Pulse Rate [ From Monitor] Respiratory 27 H 28 H Rate Respiratory 29 H Rate [Anterior Bilateral Throughout] Respiratory Rate [Anterior Bilateral] Blood Pressure 163/57 132/66 O2 Sat by Pulse 99 99 Oximetry 11/04/18 11/04/18 11/04/18 05:00 05:30 06:00 Temperature Pulse Rate 106 H 106 H 108 H Pulse Rate [ Anterior Bilateral Throughout] Pulse Rate [ Anterior Bilateral] Pulse Rate [ From Monitor] Respiratory 24 28 H 25 H Rate Respiratory Rate [Anterior Bilateral Throughout] Respiratory Rate [Anterior Bilateral] Blood Pressure 121/58 131/68 131/68 O2 Sat by Pulse 100 100 100 Oximetry 11/04/18 11/04/18 11/04/18 06:30 07:00 07:30 Temperature Pulse Rate 112 H 112 H 107 H Pulse Rate [ Anterior Bilateral Throughout] Pulse Rate [ Anterior Bilateral] Pulse Rate [ From Monitor] Respiratory 29 H 28 H 25 H Rate Respiratory Rate [Anterior Bilateral Throughout] Respiratory Rate [Anterior Bilateral] Blood Pressure 122/81 148/67 131/44 O2 Sat by Pulse 100 100 100 Oximetry 11/04/18 11/04/18 11/04/18 08:00 08:04 08:30 Temperature 98.8 F Pulse Rate 108 H 107 H 110 H Pulse Rate [ Anterior Bilateral Throughout] Pulse Rate [ Anterior Bilateral] Pulse Rate [ 101 H From Monitor] Respiratory 29 H 28 H Rate Respiratory Rate [Anterior Bilateral Throughout] Respiratory Rate [Anterior Bilateral] Blood Pressure 121/56 98/64 132/63 O2 Sat by Pulse 100 100 Oximetry 11/04/18 11/04/18 11/04/18 09:00 09:31 10:00 Temperature Pulse Rate 106 H 106 H 113 H Pulse Rate [ Anterior Bilateral Throughout] Pulse Rate [ Anterior Bilateral] Pulse Rate [ From Monitor] Respiratory 28 H 25 H 27 H Rate Respiratory Rate [Anterior Bilateral Throughout] Respiratory Rate [Anterior Bilateral] Blood Pressure 120/58 123/52 132/66 O2 Sat by Pulse 100 100 100 Oximetry 11/04/18 11/04/18 11/04/18 10:09 10:11 10:22 Temperature Pulse Rate 113 H Pulse Rate [ 115 H 114 H Anterior Bilateral Throughout] Pulse Rate [ 115 H 114 H Anterior Bilateral] Pulse Rate [ From Monitor] Respiratory Rate Respiratory 28 H 28 H Rate [Anterior Bilateral Throughout] Respiratory 28 H 28 H Rate [Anterior Bilateral] Blood Pressure 132/66 O2 Sat by Pulse 100 Oximetry 11/04/18 10:24 Temperature Pulse Rate 116 H Pulse Rate [ Anterior Bilateral Throughout] Pulse Rate [ Anterior Bilateral] Pulse Rate [ From Monitor] Respiratory 28 H Rate Respiratory Rate [Anterior Bilateral Throughout] Respiratory Rate [Anterior Bilateral] Blood Pressure 132/66 O2 Sat by Pulse 100 Oximetry - General Appearance General appearance: well-developed, appears stated age, intubated EENT: ATNC, PERRL, mucous membranes moist Neck: no JVD Respiratory: Present: Clear to Ascultation Cardiology: regular, S1S2 Gastrointestinal: distended Integumentary: no rash, other (no edema ) Neurologic: no focal deficit, alert and oriented x3, strength 5/5, CN 3-12 intact Psychiatric: mood/affect appropriate, cooperative - Lab 11/04/18 09:39 11/03/18 11:30 Most recent lab results Calcium 7.7 mg/dL (8.4-10.2) L 11/03/18 11:30 Phosphorus 2.50 mg/dL (2.5-4.5) D 11/03/18 11:30 Magnesium 1.60 mg/dL (1.7-2.3) L 11/03/18 11:30 Medications & Allergies - Medications Allergies/Adverse Reactions: Allergies Sulfa (Sulfonamide Antibiotics) Allergy (Intermediate, Verified 10/22/18 16:30) Rash metoclopramide HCl [From Reglan] Allergy (Verified 10/22/18 16:30) Dizziness prochlorperazine [From Compazine] Allergy (Verified 10/22/18 16:30) NECK STIFFNESS Home Medications: Home Medications Medication Instructions Recorded Confirmed Last Taken Type Ondansetron 4 mg PO Q6HR PRN 12/05/16 10/22/18 10/29/17 History Propranolol HCl [Propranolol HCl 60 mg PO DAILY 12/05/16 10/22/18 10/30/17 22:00 History ER] QUEtiapine [SEROquel] 300 mg PO DAILY 12/05/16 10/22/18 10/30/17 History Lasix TAB 40 mg PO PRN PRN 12/07/16 10/22/18 10/24/17 History Percocet 10/325 mg 1 tab PO PRN PRN 12/07/16 10/22/18 10/30/17 History Albuterol Sulfate [Albuterol 0.63% 0.63 mg IH TID PRN 10/22/17 10/22/18 10/29/17 History NEBS] Active Medications: Generic Name Dose Route Start Last Admin Trade Name Freq PRN Reason Stop Dose Admin Acetaminophen 650 mg 10/22/18 20:10 Tylenol PO Q4H PRN Pain MILD(1-3)/Fever >100.5/PORTER Albuterol 2.5 mg 10/22/18 20:14 10/28/18 06:34 Proventil IH 2.5 mg Q4HRT PRN Administration Shortness Of Breath Albuterol/Ipratropium 1 ampul 10/28/18 12:00 11/04/18 10:09 Duoneb *Not For Prn Use* IH 1 ampul Q4HRT RICK Administration Budesonide 0.5 mg 10/23/18 08:00 11/04/18 10:09 Pulmicort IH 0.5 mg Q12HRT RICK Administration Dextrose 50 ml 10/26/18 23:40 10/27/18 00:20 D50w (25gm) Syringe IV 50 ml PRN PRN Administration Hypoglycemia Hydralazine HCl 10 mg 10/22/18 21:41 Apresoline IV Q4HR PRN Blood Pressure Fentanyl Citrate 2,000 mcg in 100 mls @ 1.2 mls/hr 10/29/18 11:00 11/03/18 18:50 Fentanyl Drip Premix IV 0 mcg/kg/hr TITR RICK 0 mls/hr Titration Protocol 0.5 MCG/KG/HR Metronidazole 500 mg in 100 mls @ 100 mls/hr 10/30/18 14:00 11/04/18 06:55 Flagyl 500 Mg/100 Ml IV 100 mls/hr Q8HR RICK Administration Protocol Cefepime HCl 2 gm in 100 mls @ 200 mls/hr 10/31/18 22:00 11/04/18 09:17 Maxipime/Ns 2 Gm/100 Ml IV 200 mls/hr Q12HR RICK Administration Protocol Levofloxacin/Dextrose 500 mg in 100 mls @ 100 mls/hr 10/31/18 17:00 11/04/18 09:16 Levaquin 500mg/100ml IV 100 mls/hr Q24HR [facility] Administration Protocol Micafungin Sodium 100 mg/ 100 mls @ 100 mls/hr 11/02/18 10:00 11/04/18 09:17 Sodium Chloride IV 100 mls/hr QDAY [facility] Administration Protocol Amino Acids/Electrolytes/Dextrose 2,400 mls @ 100 mls/hr 11/03/18 20:00 11/03/18 20:47 Tpn Adult IV 11/04/18 19:59 100 mls/hr DAILY@2000 [facility] Administration Protocol Insulin Human Lispro 0 unit 10/29/18 12:00 11/04/18 05:48 Humalog SUB-Q Not Given Q6HR [facility] Protocol Lorazepam 0.5 mg 10/26/18 22:44 10/26/18 23:14 Ativan IV 0.5 mg Q4H PRN Administration Anxiety Metoprolol Tartrate 5 mg 10/31/18 14:00 11/04/18 08:04 Lopressor IV Not Given TID [facility] Morphine Sulfate 2 mg 10/24/18 13:39 11/04/18 08:37 Morphine IV 2 mg Q4H PRN Administration Pain, Moderate (4-6) Ondansetron HCl 4 mg 10/24/18 10:05 10/25/18 17:26 Zofran IV 4 mg Q6H PRN Administration Nausea And Vomiting Pantoprazole Sodium 40 mg 10/30/18 22:00 11/03/18 21:05 Protonix IV 40 mg BID [facility] Administration Phenol 1 spray 10/28/18 10:16 Chloraseptic MM PRN PRN Sore Throat Promethazine HCl 25 mg 10/22/18 20:10 10/22/18 21:21 Phenergan DE 25 mg Q6H PRN Administration Nausea And Vomiting Sodium Chloride 10 ml 10/22/18 22:00 11/04/18 09:17 Sodium Chloride Flush Syringe 10 Ml IV 10 ml BID RICK Administration Sodium Chloride 10 ml 10/22/18 20:10 10/24/18 18:32 Sodium Chloride Flush Syringe 10 Ml IV 10 ml PRN PRN Administration LINE FLUSH
[2018-11-04 10:48] LABS: Hemolysis Index 25
--- NOTE | 2018-11-04 11:22 | Progress Note ---
Assessment and Plan Echo reviewed - EF 50%, trace TR, minimal pericardial effusion. Cont present cardiac management. The patient has been seen in conjunction with Dr. Mas who agrees with the assessment and plan of care. - Patient Problems (1) Atrial tachycardia, paroxysmal Current Visit: Yes Status: Acute (2) Tachy-adama syndrome Current Visit: Yes Status: Acute (3) Acute respiratory failure Current Visit: Yes Status: Acute (4) Perforated gastric ulcer Current Visit: Yes Status: Acute (5) Intractable nausea and vomiting Current Visit: Yes Status: Acute (6) Partial small bowel obstruction Current Visit: Yes Status: Acute (7) COPD (chronic obstructive pulmonary disease) Current Visit: Yes Status: Chronic (8) History of hypertension Current Visit: Yes Status: Chronic (9) ADWOA (acute kidney injury) Current Visit: Yes Status: Acute (10) Hypokalemia Current Visit: Yes Status: Acute Subjective Date of service: 11/04/18 Principal diagnosis: colitis, N/V/D Interval history: pt resting in bed, remains intubated, alert. in SR on tele. Objective Last Vital Signs Temp 98.8 F 11/04/18 08:00 Pulse 119 H 11/04/18 11:00 Resp 29 H 11/04/18 11:00 BP 131/63 11/04/18 11:00 Pulse Ox 100 11/04/18 11:00 - Physical Examination General: Other (intubated, alert) HEENT: Positive: PERRL Neck: Positive: neck supple, trachea midline Cardiac: Positive: Reg Rate and Rhythm, S1/S2 Lungs: Positive: Decreased Breath Sounds Neuro: Positive: Other (intubated, alert) Skin: Negative: Rash Musculoskeletal: No Pain Extremities: Absent: edema - Labs and Meds Cardiac Enzymes 11/03/18 Range/Units 11:30 AST 14 (5-40) units/L CBC 11/03/18 11/04/18 Range/Units 11:30 09:39 WBC 16.4 H 15.2 H (4.5-11.0) K/mm3 RBC 3.50 L 3.18 L (3.65-5.03) M/mm3 Hgb 11.1 10.2 (10.1-14.3) gm/dl Hct 32.8 29.9 L (30.3-42.9) % Plt Count 136 L D 145 (140-440) K/mm3 Comprehensive Metabolic Panel 11/03/18 11/04/18 Range/Units 11:30 09:39 Sodium 144 135 L D (137-145) mmol/L Potassium 3.1 L 4.1 D (3.6-5.0) mmol/L Chloride 110.4 H 109.5 H (98-107) mmol/L Carbon Dioxide 17 L 16 L (22-30) mmol/L BUN 41 H (7-17) mg/dL Creatinine 1.0 0.7 (0.7-1.2) mg/dL Glucose 129 H 136 H (65-100) mg/dL Calcium 7.7 L 8.0 L (8.4-10.2) mg/dL AST 14 (5-40) units/L ALT 17 (7-56) units/L Alkaline Phosphatase 51 (35-129) units/L Total Protein 4.2 L (6.3-8.2) g/dL Albumin 1.2 L (3.9-5) g/dL - Imaging and Cardiology EKG: report reviewed, image reviewed Echo: report reviewed - Telemetry EKG Rhythm: Sinus Tachycardia - EKG Sinus rhythms and dysrhythmias: sinus rhythm - Allied health notes Allied health notes reviewed: nursing
[2018-11-04 12:18] LABS: Basophils % (Manual) 0 % (0.0-1.8); Monocytes % (Manual) 0 % (0.0-7.3); Platelet Estimate Consistent w Auto; RBC Morphology Normal; Total Cells Counted 100
[2018-11-04 12:29] LABS: BUN/Creatinine Ratio 66; Blood Urea Nitrogen 46 mg/dL (7-17)
[2018-11-04] MEDS: PROTONIX IV SCH (12:29)
--- NOTE | 2018-11-04 14:49 | Progress Note ---
Assessment and Plan Cultures: Blood cultures 10/22/2018 no growth so far. Tracheal asp cultures 10/28/2018: E.coli and Stenotrophomonas. 10/30/2018 blood culture: Ayla non albicans 11/03/2018 fungal blood culture: in proces Assessment: 73 y/o female with history of COPD, hypertension, lupus, fibromyalgia, opioid dependence admitted on 10/22/2018 due to 3-day history of intractable nausea, vomiting, diarrhea: 1) SIRS v/s sepsis: Etiology most likely aspiration pneumonia +/- intra- abdominal source from contained gastric perforation. Now also with Candidemia. 2) Candidemia: in the setting of TPN and PICC line. PICC removed. Has temporary central line. Continue IV Micafungin and f/u fungal blood cultures. TTE not optimal quality, will need LAUREN only if repeat fungal blood cultures are positive. 2) Presumed aspiration pneumonia v/s HAP: Tracheal asp cultures 10/28/2018 with E.coli and Stenotrophomonas. Stenotrophomonas is a known colonizer in patients with structural lung disease or tracheostomy tubes, not generally considered very virulent. 3) Acute respiratory failure: intubated, on the vent. 4) Ileus v/s partial SBO and contained gastric perforation: Gen Surgery following. Planned for conservative management. 5) ADWOA: renally dosed all antibiotics Recommendations: - follow up abdominal CT - continue Cefepime, Flagyl, Levofloxacin for another 2 days - continue IV Micafungin, follow up repeat fungal blood cultures - follow up ID on Ayla species (non-albicans) - TTE not optimal quality, will need LAUREN only if repeat fungal blood cultures are positive Phong Joy MD [facility] C: [phone] O: [phone] F: [phone] Subjective Date of service: 11/04/18 Principal diagnosis: colitis, N/V/D Interval history: No fever. Remains on the vent. Stable. Planned for repeat CT. Objective - Exam Narrative Exam: Physical Exam: Constitutional: awake, intubated Head, Ears, Nose: Normocephalic, atraumatic. External ears, nose normal Eyes: Conjunctivae/corneas clear. No icterus. No ptosis. Neck: Supple, no meningeal signs Oral: intubated Cardiovascular: S1, S2 normal, no murmur heard Respiratory: Good air entry, clear to auscultation bilaterally but reduced in the bases GI: Soft, non-tender; bowel sounds +, No peritoneal signs Musculoskeletal: No pedal edema, no cyanosis. Skin: No rash or abscess Hem/Lymphatic: No palpable cervical or supraclavicular nodes. No lymphangitis Psych: no agitation Neurological: awake, intubated, on vent - Constitutional Vitals: Vital Signs Temp Pulse Resp BP Pulse Ox 98.8 F 123 H 26 H 154/70 99 11/04/18 12:00 11/04/18 13:59 11/04/18 13:50 11/04/18 13:59 11/04/18 13:24 Temperature -Last 24 Hours Temperature 98.8 F Temperature 98.8 F Temperature 98.8 F Temperature 98.1 F Temperature 98 F Temperature 97.2 F - Labs CBC & Chem 7: 11/04/18 09:39 11/04/18 09:39 Labs: Abnormal lab results 11/03/18 11/03/18 11/03/18 Range/Units 12:01 17:35 21:37 WBC (4.5-11.0) K/mm3 RBC (3.65-5.03) M/mm3 Hct (30.3-42.9) % Seg Neuts % (Manual) (40.0-70.0) % Lymphocytes % (Manual) (13.4-35.0) % Seg Neutrophils # Man (1.8-7.7) K/mm3 Lymphocytes # (Manual) (1.2-5.4) K/mm3 POC ABG pCO2 (35-45) POC ABG pO2 (80-105) Sodium (137-145) mmol/L Chloride (98-107) mmol/L Carbon Dioxide (22-30) mmol/L BUN (7-17) mg/dL Glucose (65-100) mg/dL POC Glucose 132 H 132 H 126 H (70-105) Calcium (8.4-10.2) mg/dL 11/03/18 11/04/18 11/04/18 Range/Units 23:30 05:14 05:15 WBC (4.5-11.0) K/mm3 RBC (3.65-5.03) M/mm3 Hct (30.3-42.9) % Seg Neuts % (Manual) (40.0-70.0) % Lymphocytes % (Manual) (13.4-35.0) % Seg Neutrophils # Man (1.8-7.7) K/mm3 Lymphocytes # (Manual) (1.2-5.4) K/mm3 POC ABG pCO2 30.9 L (35-45) POC ABG pO2 192 H (80-105) Sodium (137-145) mmol/L Chloride (98-107) mmol/L Carbon Dioxide (22-30) mmol/L BUN (7-17) mg/dL Glucose (65-100) mg/dL POC Glucose 115 H 123 H (70-105) Calcium (8.4-10.2) mg/dL 11/04/18 11/04/18 11/04/18 Range/Units 09:39 09:39 11:43 WBC 15.2 H (4.5-11.0) K/mm3 RBC 3.18 L (3.65-5.03) M/mm3 Hct 29.9 L (30.3-42.9) % Seg Neuts % (Manual) 98.0 H (40.0-70.0) % Lymphocytes % (Manual) 1.0 L (13.4-35.0) % Seg Neutrophils # Man 14.9 H (1.8-7.7) K/mm3 Lymphocytes # (Manual) 0.2 L (1.2-5.4) K/mm3 POC ABG pCO2 (35-45) POC ABG pO2 (80-105) Sodium 135 L D (137-145) mmol/L Chloride 109.5 H (98-107) mmol/L Carbon Dioxide 16 L (22-30) mmol/L BUN 46 H (7-17) mg/dL Glucose 136 H (65-100) mg/dL POC Glucose 138 H (70-105) Calcium 8.0 L (8.4-10.2) mg/dL
--- NOTE | 2018-11-04 15:43 | Hem/Onc Progress Note ---
Assessment and Plan 1. Thrombocytopenia, likely medication related. Today's platelet count is better. We will observe. 2. History of colon surgery in the past, details not clear. 3. History of bowel issues. Seen by surgical team. 4. On TPN. 5. Ayla, ID following. 6. Chronic obstructive pulmonary disease. 7. Hypertension. 8. History of lupus. 9. Aspiration pneumonia. 10. The patient on ventilation. 11. Renal impairment. - Patient Problems (1) Thrombocytopenia Current Visit: Yes Status: Acute Subjective Date of service: 11/04/18 Principal diagnosis: on vent Interval history: no bleeding Objective - Constitutional Vitals: Last Vital Signs Temp 98.8 F 11/04/18 12:00 Pulse 117 H 11/04/18 15:04 Resp 28 H 11/04/18 15:04 BP 124/63 11/04/18 15:04 Pulse Ox 99 11/04/18 15:04 General appearance: no acute distress Performance status: 3-limited selfcare - EENT Eyes: EOM intact ENT: hearing intact, other (on vent) Lymph node exam: negative cervical - Respiratory Respiratory effort: Positive: normal Respiratory: bilateral: diminished - Cardiovascular Heart Sounds: Present: S1 & S2 Extremities: normal temperature - Gastrointestinal General gastrointestinal: Present: soft, other (post op) Rectal Exam: deferred - Genitourinary Female genitourinary: Present: deferred - Integumentary Integumentary: warm - Musculoskeletal Musculoskeletal: generalized weakness - Neurologic Neurologic: moves all extremities - Labs Lab Results: Laboratory Results - last 24 hr 10/30/18 11/03/18 11/03/18 13:58 12:01 17:35 WBC RBC Hgb Hct MCV MCH MCHC RDW Plt Count Add Manual Diff Total Counted Seg Neutrophils % Seg Neuts % (Manual) Band Neutrophils % Lymphocytes % (Manual) Reactive Lymphs % (Man) Monocytes % (Manual) Eosinophils % (Manual) Basophils % (Manual) Metamyelocytes % Myelocytes % Promyelocytes % Blast Cells % Nucleated RBC % Seg Neutrophils # Man Band Neutrophils # Lymphocytes # (Manual) Abs React Lymphs (Man) Monocytes # (Manual) Eosinophils # (Manual) Basophils # (Manual) Metamyelocytes # Myelocytes # Promyelocytes # Blast Cells # WBC Morphology Hypersegmented Neuts Hyposegmented Neuts Hypogranular Neuts Smudge Cells Toxic Granulation Toxic Vacuolation Dohle Bodies Pelger-Huet Anomaly Magda Rods Platelet Estimate Clumped Platelets Plt Clumps, EDTA Large Platelets Giant Platelets Platelet Satelliting Plt Morphology Comment RBC Morphology Dimorphic RBCs Polychromasia Hypochromasia Poikilocytosis Anisocytosis Microcytosis Macrocytosis Spherocytes Pappenheimer Bodies Sickle Cells Target Cells Tear Drop Cells Ovalocytes Helmet Cells [place] Bodies [place] Cells Bite Cells Crenated Cell Elliptocytes Acanthocytes (Spur) Rouleaux Hemoglobin C Crystals Schistocytes Malaria parasites Janes Bodies Hem Pathologist Commnt POC ABG pH POC ABG pCO2 POC ABG pO2 POC ABG HCO3 POC ABG Total CO2 POC ABG O2 Sat POC ABG Base Excess FiO2 Sodium Potassium Chloride Carbon Dioxide Anion Gap BUN Creatinine Estimated GFR BUN/Creatinine Ratio Glucose POC Glucose 132 H 132 H Calcium Serotonin Release Assay See scanned result 11/03/18 11/03/18 11/04/18 21:37 23:30 05:14 WBC RBC Hgb Hct MCV MCH MCHC RDW Plt Count Add Manual Diff Total Counted Seg Neutrophils % Seg Neuts % (Manual) Band Neutrophils % Lymphocytes % (Manual) Reactive Lymphs % (Man) Monocytes % (Manual) Eosinophils % (Manual) Basophils % (Manual) Metamyelocytes % Myelocytes % Promyelocytes % Blast Cells % Nucleated RBC % Seg Neutrophils # Man Band Neutrophils # Lymphocytes # (Manual) Abs React Lymphs (Man) Monocytes # (Manual) Eosinophils # (Manual) Basophils # (Manual) Metamyelocytes # Myelocytes # Promyelocytes # Blast Cells # WBC Morphology Hypersegmented Neuts Hyposegmented Neuts Hypogranular Neuts Smudge Cells Toxic Granulation Toxic Vacuolation Dohle Bodies Pelger-Huet Anomaly Magda Rods Platelet Estimate Clumped Platelets Plt Clumps, EDTA Large Platelets Giant Platelets Platelet Satelliting Plt Morphology Comment RBC Morphology Dimorphic RBCs Polychromasia Hypochromasia Poikilocytosis Anisocytosis Microcytosis Macrocytosis Spherocytes Pappenheimer Bodies Sickle Cells Target Cells Tear Drop Cells Ovalocytes Helmet Cells [place] Bodies [place] Cells Bite Cells Crenated Cell Elliptocytes Acanthocytes (Spur) Rouleaux Hemoglobin C Crystals Schistocytes Malaria parasites Janes Bodies Hem Pathologist Commnt POC ABG pH POC ABG pCO2 POC ABG pO2 POC ABG HCO3 POC ABG Total CO2 POC ABG O2 Sat POC ABG Base Excess FiO2 Sodium Potassium Chloride Carbon Dioxide Anion Gap BUN Creatinine Estimated GFR BUN/Creatinine Ratio Glucose POC Glucose 126 H 115 H 123 H Calcium Serotonin Release Assay 11/04/18 11/04/18 11/04/18 05:15 09:39 09:39 WBC 15.2 H RBC 3.18 L Hgb 10.2 Hct 29.9 L MCV 94 MCH 32 MCHC 34 RDW 14.8 Plt Count 145 Add Manual Diff Complete Total Counted 100 Seg Neutrophils % [employer] Teacher Seg Neuts % (Manual) 98.0 H Band Neutrophils % 0 Lymphocytes % (Manual) 1.0 L Reactive Lymphs % (Man) 0 Monocytes % (Manual) 0 Eosinophils % (Manual) 1.0 Basophils % (Manual) 0 Metamyelocytes % 0 Myelocytes % 0 Promyelocytes % 0 Blast Cells % 0 Nucleated RBC % Not Reportable Seg Neutrophils # Man 14.9 H Band Neutrophils # 0.0 Lymphocytes # (Manual) 0.2 L Abs React Lymphs (Man) 0.0 Monocytes # (Manual) 0.0 Eosinophils # (Manual) 0.2 Basophils # (Manual) 0.0 Metamyelocytes # 0.0 Myelocytes # 0.0 Promyelocytes # 0.0 Blast Cells # 0.0 WBC Morphology Not Reportable Hypersegmented Neuts Not Reportable Hyposegmented Neuts Not Reportable Hypogranular Neuts Not Reportable Smudge Cells Not Reportable Toxic Granulation Not Reportable Toxic Vacuolation Not Reportable Dohle Bodies Not Reportable Pelger-Huet Anomaly Not Reportable Magda Rods Not Reportable Platelet Estimate Consistent w auto Clumped Platelets Not Reportable Plt Clumps, EDTA Not Reportable Large Platelets Not Reportable Giant Platelets Not Reportable Platelet Satelliting Not Reportable Plt Morphology Comment Not Reportable RBC Morphology Normal Dimorphic RBCs Not Reportable Polychromasia Not Reportable Hypochromasia Not Reportable Poikilocytosis Not Reportable Anisocytosis Not Reportable Microcytosis Not Reportable Macrocytosis Not Reportable Spherocytes Not Reportable Pappenheimer Bodies Not Reportable Sickle Cells Not Reportable Target Cells Not Reportable Tear Drop Cells Not Reportable Ovalocytes Not Reportable Helmet Cells Not Reportable Stewart-[place]ale Bodies Not Reportable [place] Rings Not Reportable [place] Cells Not Reportable Bite Cells Not Reportable Crenated Cell Not Reportable Elliptocytes Not Reportable Acanthocytes (Spur) Not Reportable Rouleaux Not Reportable Hemoglobin C Crystals Not Reportable Schistocytes Not Reportable Malaria parasites Not Reportable Janes Bodies Not Reportable Hem Pathologist Commnt No POC ABG pH 7.365 POC ABG pCO2 30.9 L POC ABG pO2 192 H POC ABG HCO3 17.7 POC ABG Total CO2 19 POC ABG O2 Sat 100 POC ABG Base Excess -8 FiO2 35 Sodium 135 L D Potassium 4.1 D Chloride 109.5 H Carbon Dioxide 16 L Anion Gap 14 BUN 46 H Creatinine 0.7 Estimated GFR > 60 BUN/Creatinine Ratio 66 Glucose 136 H POC Glucose Calcium 8.0 L Serotonin Release Assay 11/04/18 11:43 WBC RBC Hgb Hct MCV MCH MCHC RDW Plt Count Add Manual Diff Total Counted Seg Neutrophils % Seg Neuts % (Manual) Band Neutrophils % Lymphocytes % (Manual) Reactive Lymphs % (Man) Monocytes % (Manual) Eosinophils % (Manual) Basophils % (Manual) Metamyelocytes % Myelocytes % Promyelocytes % Blast Cells % Nucleated RBC % Seg Neutrophils # Man Band Neutrophils # Lymphocytes # (Manual) Abs React Lymphs (Man) Monocytes # (Manual) Eosinophils # (Manual) Basophils # (Manual) Metamyelocytes # Myelocytes # Promyelocytes # Blast Cells # WBC Morphology Hypersegmented Neuts Hyposegmented Neuts Hypogranular Neuts Smudge Cells Toxic Granulation Toxic Vacuolation Dohle Bodies Pelger-Huet Anomaly Magda Rods Platelet Estimate Clumped Platelets Plt Clumps, EDTA Large Platelets Giant Platelets Platelet Satelliting Plt Morphology Comment RBC Morphology Dimorphic RBCs Polychromasia Hypochromasia Poikilocytosis Anisocytosis Microcytosis Macrocytosis Spherocytes Pappenheimer Bodies Sickle Cells Target Cells Tear Drop Cells Ovalocytes Helmet Cells Stewart-[place]ale Bodies [place] Cells Bite Cells Crenated Cell Elliptocytes Acanthocytes (Spur) Rouleaux Hemoglobin C Crystals Schistocytes Malaria parasites Janes Bodies Hem Pathologist Commnt POC ABG pH POC ABG pCO2 POC ABG pO2 POC ABG HCO3 POC ABG Total CO2 POC ABG O2 Sat POC ABG Base Excess FiO2 Sodium Potassium Chloride Carbon Dioxide Anion Gap BUN Creatinine Estimated GFR BUN/Creatinine Ratio Glucose POC Glucose 138 H Calcium Serotonin Release Assay Medications & Allergies - Medications Allergies/Adverse Reactions: Allergies Sulfa (Sulfonamide Antibiotics) Allergy (Intermediate, Verified 10/22/18 16:30) Rash metoclopramide HCl [From Reglan] Allergy (Verified 10/22/18 16:30) Dizziness prochlorperazine [From Compazine] Allergy (Verified 10/22/18 16:30) NECK STIFFNESS Home Medications: Home Medications Medication Instructions Recorded Confirmed Last Taken Type Ondansetron 4 mg PO Q6HR PRN 12/05/16 10/22/18 10/29/17 History Propranolol HCl [Propranolol HCl 60 mg PO DAILY 12/05/16 10/22/18 10/30/17 22:00 History ER] QUEtiapine [SEROquel] 300 mg PO DAILY 12/05/16 10/22/18 10/30/17 History Lasix TAB 40 mg PO PRN PRN 12/07/16 10/22/18 10/24/17 History Percocet 10/325 mg 1 tab PO PRN PRN 12/07/16 10/22/18 10/30/17 History Albuterol Sulfate [Albuterol 0.63% 0.63 mg IH TID PRN 10/22/17 10/22/18 10/29/17 History NEBS] Active Medications: Generic Name Dose Route Start Last Admin Trade Name Freq PRN Reason Stop Dose Admin Acetaminophen 650 mg 10/22/18 20:10 Tylenol PO Q4H PRN Pain MILD(1-3)/Fever >100.5/PORTER Albuterol 2.5 mg 10/22/18 20:14 10/28/18 06:34 Proventil IH 2.5 mg Q4HRT PRN Administration Shortness Of Breath Albuterol/Ipratropium 1 ampul 10/28/18 12:00 11/04/18 13:29 Duoneb *Not For Prn Use* IH 1 ampul Q4HRT RICK Administration Budesonide 0.5 mg 10/23/18 08:00 11/04/18 10:09 Pulmicort IH 0.5 mg Q12HRT RICK Administration Dextrose 50 ml 10/26/18 23:40 10/27/18 00:20 D50w (25gm) Syringe IV 50 ml PRN PRN Administration Hypoglycemia Hydralazine HCl 10 mg 10/22/18 21:41 Apresoline IV Q4HR PRN Blood Pressure Fentanyl Citrate 2,000 mcg in 100 mls @ 1.2 mls/hr 10/29/18 11:00 11/03/18 18:50 Fentanyl Drip Premix IV 0 mcg/kg/hr TITR RICK 0 mls/hr Titration Protocol 0.5 MCG/KG/HR Metronidazole 500 mg in 100 mls @ 100 mls/hr 10/30/18 14:00 11/04/18 13:59 Flagyl 500 Mg/100 Ml IV 100 mls/hr Q8HR RICK Administration Protocol Cefepime HCl 2 gm in 100 mls @ 200 mls/hr 10/31/18 22:00 11/04/18 09:17 Maxipime/Ns 2 Gm/100 Ml IV 200 mls/hr Q12HR RICK Administration Protocol Levofloxacin/Dextrose 500 mg in 100 mls @ 100 mls/hr 10/31/18 17:00 11/04/18 09:16 Levaquin 500mg/100ml IV 100 mls/hr Q24HR RICK Administration Protocol Micafungin Sodium 100 mg/ 100 mls @ 100 mls/hr 11/02/18 10:00 11/04/18 09:17 Sodium Chloride IV 100 mls/hr QDAY ON LICENSE OF [facility] Administration Protocol Amino Acids/Electrolytes/Dextrose 2,400 mls @ 100 mls/hr 11/03/18 20:00 11/03/18 20:47 Tpn Adult IV 11/04/18 19:59 100 mls/hr [email or web address] ON LICENSE OF [facility] Administration Protocol Amino Acids/Electrolytes/Dextrose 2,400 mls @ 100 mls/hr 11/04/18 20:00 Tpn Adult IV 11/05/18 19:59 [email or web address] ON LICENSE OF [facility] Protocol Insulin Human Lispro 0 unit 10/29/18 12:00 11/04/18 13:27 Humalog SUB-Q Not Given Q6HR ON LICENSE OF [facility] Protocol Lorazepam 0.5 mg 10/26/18 22:44 10/26/18 23:14 Ativan IV 0.5 mg Q4H PRN Administration Anxiety Metoprolol Tartrate 5 mg 10/31/18 14:00 11/04/18 13:59 Lopressor IV 5 mg TID RICK Administration Morphine Sulfate 2 mg 10/24/18 13:39 11/04/18 12:29 Morphine IV 2 mg Q4H PRN Administration Pain, Moderate (4-6) Ondansetron HCl 4 mg 10/24/18 10:05 10/25/18 17:26 Zofran IV 4 mg Q6H PRN Administration Nausea And Vomiting Pantoprazole Sodium 40 mg 10/30/18 22:00 11/04/18 12:29 Protonix IV 40 mg BID RICK Administration Phenol 1 spray 10/28/18 10:16 Chloraseptic MM PRN PRN Sore Throat Promethazine HCl 25 mg 10/22/18 20:10 10/22/18 21:21 Phenergan [place] 25 mg Q6H PRN Administration Nausea And Vomiting Sodium Chloride 10 ml 10/22/18 22:00 11/04/18 09:17 Sodium Chloride Flush Syringe 10 Ml IV 10 ml BID RICK Administration Sodium Chloride 10 ml 10/22/18 20:10 10/24/18 18:32 Sodium Chloride Flush Syringe 10 Ml IV 10 ml PRN PRN Administration LINE FLUSH
--- NOTE | 2018-11-04 16:25 | Cat Scan Report ---
PROCEDURE: CT ABDOMEN WO CON TECHNIQUE: Computerized axial tomography of the abdomen was performed without intravenous contrast. This study is performed without intravascular contrast material and its sensitivity for abdominal and pelvic pathology, including neoplasms, inflammation, abscess, free fluid, thrombosis, arterial disse ction and infarction, is reduced compared with a contrast enhanced study. CT DOSE LENGTH PRODUCT: 1403.8 mGycm HISTORY: contained gastric perforation, follow up COMPARISONS: 10/30/2018 . FINDINGS: Visualized lower thorax: Bilateral moderate-sized layering pleural effusions. Bilateral geographic pa ttern groundglass attenuation.. Liver: Normal size and attenuation. Spleen: Normal size and attenuation. Gallbladder and biliary system: There is pneumobilia. The gallbladder is not identified. Pancreas: Normal. Adrenals: Normal. Kidneys: Left kidney is atrophic. No right-sided hydronephrosis or urolithiasis. GI tract: Nasogastric tube is present. There is oral contrast material within the gastric lumen. The re is a small focus of air at the medial wall of the stomach, which could be related to focal ulcerat ion. No extraluminal air or contrast is seen. No bowel obstruction. Lymph nodes and mesentery: Normal. Vasculature: Normal. Peritoneum: Moderate volume of free fluid is seen throughout the abdomen. Musculoskeletal structures: There are degenerative disc changes throughout the lumbar spine. Other: Diffuse subcutaneous edema . IMPRESSION: There is a small focus of air extending from the medial wall of the stomach which could be related to a focal ulceration. No extraluminal air or contrast material is seen. Moderate volume of free fluid is seen throughout the abdomen. There is also diffuse subcutaneous esha a. Correlate for anasarca. Bilateral pleural effusions. Pneumobilia . This document is electronically signed by Tricia Ni MD., November 04 2018 04:23:00 PM ET
--- NOTE | 2018-11-04 16:47 | Event Note ---
Date: 11/04/18 CT scan Abdomen with oral contrast reviewed - focal collection of air near stomach but no contrast extravasation. Anasarca. Please see official radiology read. Ok to extubate patient. No surgical intervention planned at this time. Keep NGT to LIWS, will start trickle TF in am. D/W Dr. Ni.
[2018-11-04] MEDS ORDERED: TPN ADULT 2,400 ML IV SCH (20:00)
[2018-11-05] MEDS: DUONEB *Not for PRN Use IH SCH ×3 (01:16→08:27)
[2018-11-05] MEDS: MORPHINE IV PRN ×4 (01:26→16:23)
[2018-11-05] MEDS: FLAGYL 500 MG/100 ML 500 MG/100 ML BAG IV SCH ×3 (05:54→21:32)
[2018-11-05] MEDS: HumaLOG SUB-Q SCH ×3 (05:54→17:59)
[2018-11-05 06:10] LABS: Hematocrit 29.1 % (30.3-42.9); Mean Corpuscular HGB Conc 34 % (30-34); Mean Corpuscular Volume 93 fl (79-97); Platelet Count 171 K/mm3 (140-440); Red Blood Count 3.12 M/mm3 (3.65-5.03); Red Cell Distribution Width 14.6 % (13.2-15.2)
[2018-11-05 06:35] LABS: BUN/Creatinine Ratio 53; Blood Urea Nitrogen 42 mg/dL (7-17); Calcium 7.9 mg/dL (8.4-10.2); Hemolysis Index 2
[2018-11-05] MEDS: LOPRESSOR IV SCH ×3 (07:23→19:56)
[2018-11-05] MEDS: PULMICORT IH SCH ×2 (08:27→20:05)
--- NOTE | 2018-11-05 08:28 | Progress Note ---
Assessment and Plan Assessment and plan: Patient is 73-year-old female with history of hypertension, lupus, fibromyalgia, COPD, opioid dependence (follows Dr. Felix Muñiz at pain clinic) who presented to [facility] ED with complaints of intractable nausea, vomiting, diarrhea for 3 days. On initial presentation to the ED she was found to be tachycardiac with heart rate 113 BPM, leukocytosis with WBC 11.5, elevated BUN/Cr 51/2.1. Patient has history of COPD and at baseline does not require home oxygen use. She was admitted to [facility]. GI was consulted, she was evaluated. CT Abdomen revealed partial SBO versus ileus therefore surgeon consulted. Also patient became more short of breath, placed on BIPAP with no improvement then intubated 10/26/18 for acute resp failure and transferred to ICU. Obstruction series completed on 10/27 which showed improved but small bowel and stomach dilatation. Follow-up series on 10/28 showed no significant change since previous study. NG tube was removed due to patient not tolerating/refusing. Patient was placed back on BiPAP but decompensated on the night of 10/28/18 and had to be reintubated. Patient currently on mechanical ventilation. Patient has had further complications now with findings consistent with contained gastric perforation on repeat CT scan 10/30. Also, patient has cultures that were positive and consistent with fungemia. Gastric perforation. Repeat CT scan on 10/30 revealed pSBO resolved, no evidence for bowel ischemia. Small contained gastric perforation at lesser curve. No gross free air or contrast extravasation. Surgery recommends conservative management with continuing NGT, NPO, gentle IVF and when necessary pain control. Will reimage stomach when pulm status is more stable to make sure there is no leak. Sepsis/fungemia. Continue antibiotics/antifungals and follow cultures. ID following. May need to switch off PICC to other access, hold IV nutrition ? Thrombocytopenia. Etiology likely secondary to sepsis. Hematology following. Bilateral upper lobe/aspiration pneumonia. Sputum culture positive for Escherichia coli and stenotrophomonas. Continue antibiotics per ID. Partial small bowel obstruction. Continue NGT per surgery. Acute exacerbation COPD. Scheduled Duo Nebs and Pulmicort; albuterol when necessary Acute hypoxic respiratory failure. Patient was reintubated on 10/28/18 and currently on mechanical ventilation. Etiology secondary to COPD/pneumonia/sepsis. Wean mechanical ventilation per pulmonary. Hypokalemia. Replete potassium. Hyponatremia. Repeat in am Hypertension. IV hydralazine when necessary Lupus. Supportive care Fibromyalgia. supportive care History of opioid dependence ADWOA due to vasomotor nephropathy, now resolved Full code status Poss extubation today The high probability of a clinically significant, sudden or life threatening deterioration of the [GI and respiratory] system(s) required my full and direct attention, intervention and personal management. The aggregate critical care time was [34] minutes. This time is in addition to time spent performing reported procedures but includes the following: [x] Data Review and interpretation [x] Patient assessment and monitoring of vital signs [x] Documentation [x] Medication orders and management History Interval history: Still intubated no fever Hospitalist Physical - Physical exam Narrative exam: Gen: Not in acute distress, lying in bed, HEENT: Normocephalic, atraumatic, NG tube Neck: supple, no JVD Heart: S1 and S2 reg, no murmurs, rubs or gallop Lungs: Clear bilat, decreased breath sounds bilat. no wheeze Abd: soft, mild tender, no rebound tenderness, non distended, BS present Ext: No edema, no clubbing, no cyanosis, Neuro: intubated, Awake,alert, oriented x 3, moves all ext, non focal - Constitutional Vitals: Temp Pulse Resp BP Pulse Ox 99.6 F 90 28 H 121/55 100 11/05/18 08:00 11/05/18 08:00 11/05/18 08:00 11/05/18 08:00 11/05/18 08:00 General appearance: Present: other (intubated, opens eyes to commands) Results - Labs CBC & Chem 7: 11/05/18 05:30 11/05/18 05:30 Labs: Laboratory Last Values WBC 14.2 K/mm3 (4.5-11.0) H 11/05/18 05:30 RBC 3.12 M/mm3 (3.65-5.03) L 11/05/18 05:30 Hgb 10.0 gm/dl (10.1-14.3) L 11/05/18 05:30 Hct 29.1 % (30.3-42.9) L 11/05/18 05:30 MCV 93 fl (79-97) 11/05/18 05:30 MCH 32 pg (28-32) 11/05/18 05:30 MCHC 34 % (30-34) 11/05/18 05:30 RDW 14.6 % (13.2-15.2) 11/05/18 05:30 Plt Count 171 K/mm3 (140-440) 11/05/18 05:30 Lymph % (Auto) 10.2 % (13.4-35.0) L 10/23/18 04:32 [place] % (Auto) 14.7 % (0.0-7.3) H 10/23/18 04:32 Eos % (Auto) 0.1 % (0.0-4.3) 10/23/18 04:32 Baso % (Auto) 0.1 % (0.0-1.8) 10/23/18 04:32 Lymph # 0.7 K/mm3 (1.2-5.4) L 10/23/18 04:32 [place] # 1.0 K/mm3 (0.0-0.8) H 10/23/18 04:32 Eos # 0.0 K/mm3 (0.0-0.4) 10/23/18 04:32 Baso # 0.0 K/mm3 (0.0-0.1) 10/23/18 04:32 Add Manual Diff Complete 11/04/18 09:39 Total Counted 100 11/04/18 09:39 Seg Neutrophils % Nut Threader 11/04/18 09:39 Seg Neuts % (Manual) 98.0 % (40.0-70.0) H 11/04/18 09:39 0 % 11/04/18 09:39 1.0 % (13.4-35.0) L 11/04/18 09:39 Reactive Lymphs % (Man) 0 % 11/04/18 09:39 0 % (0.0-7.3) 11/04/18 09:39 1.0 % (0.0-4.3) 11/04/18 09:39 0 % (0.0-1.8) 11/04/18 09:39 0 % 11/04/18 09:39 0 % 11/04/18 09:39 0 % 11/04/18 09:39 0 % 11/04/18 09:39 Nucleated RBC % Not Reportable 11/04/18 09:39 Seg Neutrophils # 5.2 K/mm3 (1.8-7.7) 10/23/18 04:32 Seg Neutrophils # Man 14.9 K/mm3 (1.8-7.7) H 11/04/18 09:39 Band Neutrophils # 0.0 K/mm3 11/04/18 09:39 0.2 K/mm3 (1.2-5.4) L 11/04/18 09:39 Abs React Lymphs (Man) 0.0 K/mm3 11/04/18 09:39 0.0 K/mm3 (0.0-0.8) 11/04/18 09:39 0.2 K/mm3 (0.0-0.4) 11/04/18 09:39 0.0 K/mm3 (0.0-0.1) 11/04/18 09:39 0.0 K/mm3 11/04/18 09:39 0.0 K/mm3 11/04/18 09:39 0.0 K/mm3 11/04/18 09:39 Blast Cells # 0.0 K/mm3 11/04/18 09:39 WBC Morphology Not Reportable 11/04/18 09:39 Hypersegmented Neuts Not Reportable 11/04/18 09:39 Hyposegmented Neuts Not Reportable 11/04/18 09:39 Hypogranular Neuts Not Reportable 11/04/18 09:39 Not Reportable 11/04/18 09:39 Not Reportable 11/04/18 09:39 Not Reportable 11/04/18 09:39 Not Reportable 11/04/18 09:39 Not Reportable 11/04/18 09:39 Not Reportable 11/04/18 09:39 Consistent w auto 11/04/18 09:39 Not Reportable 11/04/18 09:39 Plt Clumps, EDTA Not Reportable 11/04/18 09:39 Not Reportable 11/04/18 09:39 Not Reportable 11/04/18 09:39 Not Reportable 11/04/18 09:39 Plt Morphology Comment Not Reportable 11/04/18 09:39 RBC Morphology Normal 11/04/18 09:39 Dimorphic RBCs Not Reportable 11/04/18 09:39 Not Reportable 11/04/18 09:39 Not Reportable 11/04/18 09:39 Not Reportable 11/04/18 09:39 Not Reportable 11/04/18 09:39 Not Reportable 11/04/18 09:39 Not Reportable 11/04/18 09:39 Not Reportable 11/04/18 09:39 Not Reportable 11/04/18 09:39 Not Reportable 11/04/18 09:39 Not Reportable 11/04/18 09:39 Not Reportable 11/04/18 09:39 Not Reportable 11/04/18 09:39 Not Reportable 11/04/18 09:39 Not Reportable 11/04/18 09:39 Not Reportable 11/04/18 09:39 Not Reportable 11/04/18 09:39 Not Reportable 11/04/18 09:39 Not Reportable 11/04/18 09:39 Not Reportable 11/04/18 09:39 Acanthocytes (Spur) Not Reportable 11/04/18 09:39 Rouleaux Not Reportable 11/04/18 09:39 Not Reportable 11/04/18 09:39 Not Reportable 11/04/18 09:39 Not Reportable 11/04/18 09:39 Not Reportable 11/04/18 09:39 Hem Pathologist Commnt No 11/04/18 09:39 Heparin Anti-Xa, Unfract Negative (Negative) 10/30/18 13:58 POC ABG pH 7.365 (7.35-7.45) 11/04/18 05:15 POC ABG pCO2 30.9 (35-45) L 11/04/18 05:15 POC ABG pO2 192 (80-105) H 11/04/18 05:15 POC ABG HCO3 17.7 (22-26 mml/L) 11/04/18 05:15 POC ABG Total CO2 19 (23-27mmol/L) 11/04/18 05:15 POC ABG O2 Sat 100 11/04/18 05:15 POC ABG Base Excess -8 ((-2) - (+3)mmol/L) 11/04/18 05:15 35 % 11/04/18 05:15 Sodium 139 mmol/L (137-145) 11/05/18 05:30 Potassium 4.0 mmol/L (3.6-5.0) 11/05/18 05:30 Chloride 107.0 mmol/L (98-107) 11/05/18 05:30 Carbon Dioxide 21 mmol/L (22-30) L 11/05/18 05:30 15 mmol/L 11/05/18 05:30 BUN 42 mg/dL (7-17) H 11/05/18 05:30 0.8 mg/dL (0.7-1.2) 11/05/18 05:30 Estimated GFR > 60 ml/min 11/05/18 05:30 53 % 11/05/18 05:30 Glucose 125 mg/dL (65-100) H 11/05/18 05:30 POC Glucose 148 (70-105) H 11/05/18 05:23 Lactic Acid 1.60 mmol/L (0.7-2.0) 10/26/18 15:03 Calcium 7.9 mg/dL (8.4-10.2) L 11/05/18 05:30 Phosphorus 3.30 mg/dL (2.5-4.5) 11/05/18 05:30 Magnesium 2.00 mg/dL (1.7-2.3) 11/05/18 05:30 0.30 mg/dL (0.1-1.2) 11/03/18 11:30 AST 14 units/L (5-40) 11/03/18 11:30 ALT 17 units/L (7-56) 11/03/18 11:30 51 units/L (35-129) 11/03/18 11:30 4.2 g/dL (6.3-8.2) L 11/03/18 11:30 1.2 g/dL (3.9-5) L 11/03/18 11:30 0.4 % 11/03/18 11:30 Triglycerides 132 mg/dL (2-149) 11/01/18 06:40 10 units/L (13-60) L 10/22/18 15:54 See scanned result 10/30/18 13:58 TSH 3.150 mlU/mL (0.270-4.200) 10/31/18 17:00 Free T4 0.49 ng/dL (0.76-1.46) L 10/31/18 17:00 Dulce (Yellow) 10/22/18 19:10 Clear (Clear) 10/22/18 19:10 5.0 (5.0-7.0) 10/22/18 19:10 Ur Specific [place] 1.018 (1.003-1.030) 10/22/18 19:10 30 mg/dl mg/dL (Negative) 10/22/18 19:10 Neg mg/dL (Negative) 10/22/18 19:10 Tr mg/dL (Negative) 10/22/18 19:10 Neg (Negative) 10/22/18 19:10 Neg (Negative) 10/22/18 19:10 Neg (Negative) 10/22/18 19:10 < 2.0 mg/dL (<2.0) 10/22/18 19:10 Ur Leukocyte Esterase Neg (Negative) 10/22/18 19:10 1.0 /HPF (0.0-6.0) 10/22/18 19:10 3.0 /HPF (0.0-6.0) 10/22/18 19:10 Heparin-induced Plt Ab Negative (Negative) 10/30/18 13:58 UF Heparin High Dose 0 % Release 10/30/18 13:58 KIMO UFH Low Dose 0.1 0 % Release 10/30/18 13:58 KIMO UFH Low Dose 0.5 0 % Release 10/30/18 13:58 Active Medications - Current Medications Current Medications: Generic Name Dose Route Start Last Admin Trade Name Freq PRN Reason Stop Dose Admin Acetaminophen 650 mg 10/22/18 20:10 Tylenol PO Q4H PRN Pain MILD(1-3)/Fever >100.5/PORTER Albuterol 2.5 mg 10/22/18 20:14 10/28/18 06:34 Proventil IH 2.5 mg Q4HRT PRN Administration Shortness Of Breath Albuterol/Ipratropium 1 ampul 10/28/18 12:00 11/05/18 04:41 Duoneb *Not For Prn Use* IH 1 ampul Q4HRT RICK Administration Budesonide 0.5 mg 10/23/18 08:00 11/04/18 20:42 Pulmicort IH 0.5 mg Q12HRT RICK Administration Dextrose 50 ml 10/26/18 23:40 10/27/18 00:20 D50w (25gm) Syringe IV 50 ml PRN PRN Administration Hypoglycemia Hydralazine HCl 10 mg 10/22/18 21:41 Apresoline IV Q4HR PRN Blood Pressure Metronidazole 500 mg in 100 mls @ 100 mls/hr 10/30/18 14:00 11/05/18 05:54 Flagyl 500 Mg/100 Ml IV 100 mls/hr Q8HR RICK Administration Protocol Cefepime HCl 2 gm in 100 mls @ 200 mls/hr 10/31/18 22:00 11/04/18 22:21 Maxipime/Ns 2 Gm/100 Ml IV 200 mls/hr Q12HR RICK Administration Protocol Levofloxacin/Dextrose 500 mg in 100 mls @ 100 mls/hr 10/31/18 17:00 11/04/18 09:16 Levaquin 500mg/100ml IV 100 mls/hr Q24HR RICK Administration Protocol Micafungin Sodium 100 mg/ 100 mls @ 100 mls/hr 11/02/18 10:00 11/04/18 09:17 Sodium Chloride IV 100 mls/hr QDAY RICK Administration Protocol Amino Acids/Electrolytes/Dextrose 2,400 mls @ 100 mls/hr 11/04/18 20:00 11/04/18 20:43 Tpn Adult IV 11/05/18 19:59 100 mls/hr DAILY@2000 [facility] Administration Protocol Insulin Human Lispro 0 unit 10/29/18 12:00 11/05/18 05:54 Humalog SUB-Q Not Given Q6HR [facility] Protocol Lorazepam 0.5 mg 10/26/18 22:44 10/26/18 23:14 Ativan IV 0.5 mg Q4H PRN Administration Anxiety Metoprolol Tartrate 5 mg 10/31/18 14:00 11/05/18 07:23 Lopressor IV 5 mg TID RICK Administration Morphine Sulfate 2 mg 10/24/18 13:39 11/05/18 07:23 Morphine IV 2 mg Q4H PRN Administration Pain, Moderate (4-6) Ondansetron HCl 4 mg 10/24/18 10:05 10/25/18 17:26 Zofran IV 4 mg Q6H PRN Administration Nausea And Vomiting Pantoprazole Sodium 40 mg 11/05/18 10:00 Protonix IV DAILY [facility] Phenol 1 spray 10/28/18 10:16 Chloraseptic MM PRN PRN Sore Throat Promethazine HCl 25 mg 10/22/18 20:10 10/22/18 21:21 Phenergan [place] 25 mg Q6H PRN Administration Nausea And Vomiting Sodium Chloride 10 ml 10/22/18 22:00 11/04/18 22:21 Sodium Chloride Flush Syringe 10 Ml IV 10 ml BID RICK Administration Sodium Chloride 10 ml 10/22/18 20:10 10/24/18 18:32 Sodium Chloride Flush Syringe 10 Ml IV 10 ml PRN PRN Administration LINE FLUSH Nutrition/Malnutrition Assess - Dietary Evaluation Nutrition/Malnutrition Findings: Nutrition Notes Start: 10/23/18 17:03 Freq: Status: Active Protocol: Document 11/04/18 13:33 LP (Rec: 11/04/18 13:41 LP [id number]) Nutrition Notes Initial or Follow up Reassessment Current Diagnosis COPD,Sepsis,Hypertension Other Pertinent Diagnosis Gastric peforation, partial SBO, lupus, opiod dependence, SIRS Current Diet PPN at 100 ml/hr Labs/Tests Reviewed Pertinent Medications Reviewed Height 5 ft 3 in Weight 67.9 kg [place] Body Weight (kg) 52.27 BMI 26.5 Subjective/Other Information PPN day 5. Pt has central line , but it is not permanent. Pt will be reassessed for central line once yeast is cleared in blood. Pt had BM and johana have CT for the possiblity of extubation. Percent of energy/protein needs met: 48%/100% Burn Absent Trauma Absent #1 Nutrition Diagnosis Inadequate oral intake Diagnosis Progress(for reassessment Continues documentation) Is patient on ventilator? Yes Is Patient Ambulatory and/or Out of Bed No REE-([facility]-confined to bed) 1395.852 Kcal/Kg value to use for calculation 25 Approximate Energy Requirements Using 1698 kcal/Kg Calculation Used for Recommendations Kcal/kg Additional Notes Protein needs are 58-96g (1.2- 2g/kg) Fluid needs are 1ml/kcal Nutrition Intervention Change Diet Order: PPN Nutrition Support: PPN at 100 ml/hr:120mEq Na, 19mEq Mg, MTE, MVI Osmolality: 879 Kcal 808 Protein (gm) 100 Carbohydrates (gm) 120 Fat (gm) 0 Fluid (mL) 2,400 Fiber (gm) 0 Goal #1 Meet kcal and protein needs as best as possible Anticipated Discharge Needs: Unable to determine at this time Follow-Up By: 11/05/18 Additional Comments Labs in AM: Mg MARISELA, Fartun
[2018-11-05] MEDS ORDERED: SODIUM BICARBONATE FEEDTUBE PRN ×2 (10:13→11:12)
[2018-11-05] MEDS ORDERED: PANCREAZE DR 10,500 UNIT FEEDTUBE PRN ×2 (10:13→11:12)
[2018-11-05] MEDS ORDERED: SIMPLE SYRUP FEEDTUBE PRN ×4 (10:13→11:12)
--- NOTE | 2018-11-05 10:13 | Progress Note ---
Assessment and Plan For possible extubation today. Cont present cardiac management. The patient has been seen in conjunction with Dr. Mas who agrees with the assessment and plan of care. - Patient Problems (1) Atrial tachycardia, paroxysmal Current Visit: Yes Status: Acute (2) Tachy-adama syndrome Current Visit: Yes Status: Acute (3) Acute respiratory failure Current Visit: Yes Status: Acute (4) Perforated gastric ulcer Current Visit: Yes Status: Acute (5) Intractable nausea and vomiting Current Visit: Yes Status: Acute (6) Partial small bowel obstruction Current Visit: Yes Status: Acute (7) COPD (chronic obstructive pulmonary disease) Current Visit: Yes Status: Chronic (8) History of hypertension Current Visit: Yes Status: Chronic (9) ADWOA (acute kidney injury) Current Visit: Yes Status: Acute (10) Hypokalemia Current Visit: Yes Status: Acute Subjective Date of service: 11/05/18 Principal diagnosis: colitis, N/V/D Interval history: pt resting in bed, remains intubated, alert. in SR/ST on tele. Objective Last Vital Signs Temp 99.6 F 11/05/18 08:00 Pulse 100 H 11/05/18 09:00 Resp 28 H 11/05/18 09:00 BP 114/55 11/05/18 09:00 Pulse Ox 100 11/05/18 09:00 - Physical Examination General: Other (intubated, alert) HEENT: Positive: PERRL Neck: Positive: neck supple, trachea midline Cardiac: Positive: Reg Rate and Rhythm, S1/S2 Lungs: Positive: Decreased Breath Sounds Neuro: Positive: Other (intubated, alert) Skin: Negative: Rash Musculoskeletal: No Pain Extremities: Absent: edema - Labs and Meds CBC 11/04/18 11/05/18 Range/Units 09:39 05:30 WBC 15.2 H 14.2 H (4.5-11.0) K/mm3 RBC 3.18 L 3.12 L (3.65-5.03) M/mm3 Hgb 10.2 10.0 L (10.1-14.3) gm/dl Hct 29.9 L 29.1 L (30.3-42.9) % Plt Count 145 171 (140-440) K/mm3 Comprehensive Metabolic Panel 11/04/18 11/05/18 Range/Units 09:39 05:30 Sodium 135 L D 139 (137-145) mmol/L Potassium 4.1 D 4.0 (3.6-5.0) mmol/L Chloride 109.5 H 107.0 (98-107) mmol/L Carbon Dioxide 16 L 21 L (22-30) mmol/L BUN 46 H 42 H (7-17) mg/dL Creatinine 0.7 0.8 (0.7-1.2) mg/dL Glucose 136 H 125 H (65-100) mg/dL Calcium 8.0 L 7.9 L (8.4-10.2) mg/dL - Imaging and Cardiology EKG: report reviewed, image reviewed Echo: report reviewed (EF 50%, trace TR, minimal pericardial effusion. ) - Telemetry EKG Rhythm: Sinus Tachycardia - EKG Sinus rhythms and dysrhythmias: sinus rhythm - Allied health notes Allied health notes reviewed: nursing
[2018-11-05] MEDS: PROTONIX IV SCH (10:34)
[2018-11-05] MEDS: LEVAQUIN 500MG/100ML 500 MG/100 ML BAG IV SCH (10:35)
[2018-11-05] MEDS: MAXIPIME/NS 2 GM/100 ML 2 GM/100 ML BAG IV SCH ×2 (10:35→21:32)
[2018-11-05] MEDS: MYCAMINE 100 MG in NACL 0.9% 100 ML IV SCH (10:35)
[2018-11-05] MEDS: SODIUM CHLORIDE FLUSH SYRINGE 10 ML IV SCH ×2 (10:36→21:32)
--- NOTE | 2018-11-05 10:41 | Progress Note ---
Assessment and Plan - Patient Problems (1) Hypernatremia Current Visit: Yes Status: Acute Plan to address problem: resolved, pt being started on tube feeding. (2) Acute renal failure Current Visit: Yes Status: Acute Plan to address problem: Prerenal azotemia secondary to volume depletion, now improved, pt remains non- oliguric. will sign off. (3) Hypokalemia Current Visit: Yes Status: Acute Plan to address problem: K replete. (4) Abdominal distention, non-gaseous Current Visit: Yes Status: Acute Plan to address problem: being conservatively managed per general surgery (5) Acute respiratory failure with hypoxia Current Visit: Yes Status: Acute Plan to address problem: s/p extubation Subjective Date of service: 11/05/18 Principal diagnosis: colitis, N/V/D Interval history: Pt is extubated, plan to start NGT feeding. pt awake, alert, in NAD Objective - Vital Signs Vital signs: Vital Signs - 12hr 11/04/18 11/04/18 11/04/18 23:00 23:30 23:56 Temperature 99.1 F Pulse Rate 113 H 112 H Pulse Rate [ Anterior Bilateral Throughout] Pulse Rate [ Anterior Bilateral] Pulse Rate [ From Monitor] Respiratory 28 H 28 H Rate Respiratory Rate [Anterior Bilateral Throughout] Respiratory Rate [Anterior Bilateral] Blood Pressure 108/50 113/53 O2 Sat by Pulse 99 99 Oximetry 11/05/18 11/05/18 11/05/18 00:00 00:30 01:00 Temperature Pulse Rate 109 H 101 H 101 H Pulse Rate [ Anterior Bilateral Throughout] Pulse Rate [ Anterior Bilateral] Pulse Rate [ From Monitor] Respiratory 28 H 28 H 28 H Rate Respiratory Rate [Anterior Bilateral Throughout] Respiratory Rate [Anterior Bilateral] Blood Pressure 112/55 118/48 123/48 O2 Sat by Pulse 99 100 100 Oximetry 11/05/18 11/05/18 11/05/18 01:17 01:21 01:30 Temperature Pulse Rate 119 H 116 H Pulse Rate [ 117 H 114 H Anterior Bilateral Throughout] Pulse Rate [ Anterior Bilateral] Pulse Rate [ From Monitor] Respiratory 30 H Rate Respiratory 29 H 24 Rate [Anterior Bilateral Throughout] Respiratory Rate [Anterior Bilateral] Blood Pressure 123/48 133/60 O2 Sat by Pulse 99 99 Oximetry 11/05/18 11/05/18 11/05/18 02:01 02:30 03:00 Temperature Pulse Rate 125 H 121 H 121 H Pulse Rate [ Anterior Bilateral Throughout] Pulse Rate [ Anterior Bilateral] Pulse Rate [ From Monitor] Respiratory 27 H 30 H 30 H Rate Respiratory Rate [Anterior Bilateral Throughout] Respiratory Rate [Anterior Bilateral] Blood Pressure 128/58 127/63 135/61 O2 Sat by Pulse 99 99 99 Oximetry 11/05/18 11/05/18 11/05/18 03:27 03:30 04:00 Temperature 99.0 F Pulse Rate 122 H Pulse Rate [ Anterior Bilateral Throughout] Pulse Rate [ Anterior Bilateral] Pulse Rate [ From Monitor] Respiratory 27 H Rate Respiratory Rate [Anterior Bilateral Throughout] Respiratory Rate [Anterior Bilateral] Blood Pressure 135/66 O2 Sat by Pulse 100 99 Oximetry 11/05/18 11/05/18 11/05/18 04:01 04:30 04:41 Temperature Pulse Rate 138 H 126 H 124 H Pulse Rate [ Anterior Bilateral Throughout] Pulse Rate [ Anterior Bilateral] Pulse Rate [ From Monitor] Respiratory 25 H 29 H Rate Respiratory Rate [Anterior Bilateral Throughout] Respiratory Rate [Anterior Bilateral] Blood Pressure 142/58 144/66 144/66 O2 Sat by Pulse 98 99 100 Oximetry 11/05/18 11/05/18 11/05/18 04:52 05:00 05:19 Temperature Pulse Rate 120 H Pulse Rate [ 122 H 111 H Anterior Bilateral Throughout] Pulse Rate [ Anterior Bilateral] Pulse Rate [ From Monitor] Respiratory 26 H Rate Respiratory 24 28 H Rate [Anterior Bilateral Throughout] Respiratory Rate [Anterior Bilateral] Blood Pressure 142/58 O2 Sat by Pulse 100 Oximetry 11/05/18 11/05/18 11/05/18 05:30 06:00 06:30 Temperature Pulse Rate 122 H 116 H 100 H Pulse Rate [ Anterior Bilateral Throughout] Pulse Rate [ Anterior Bilateral] Pulse Rate [ From Monitor] Respiratory 28 H 28 H 28 H Rate Respiratory Rate [Anterior Bilateral Throughout] Respiratory Rate [Anterior Bilateral] Blood Pressure 131/67 122/67 124/61 O2 Sat by Pulse 100 100 100 Oximetry 11/05/18 11/05/18 11/05/18 07:00 07:23 07:30 Temperature Pulse Rate 100 H 104 H 90 Pulse Rate [ Anterior Bilateral Throughout] Pulse Rate [ Anterior Bilateral] Pulse Rate [ From Monitor] Respiratory 28 H 28 H Rate Respiratory Rate [Anterior Bilateral Throughout] Respiratory Rate [Anterior Bilateral] Blood Pressure 108/57 108/57 108/52 O2 Sat by Pulse 100 100 Oximetry 06/05/19 06/05/19 06/05/19 07:43 08:00 08:28 Temperature 99.6 F Pulse Rate 90 109 H Pulse Rate [ Anterior Bilateral Throughout] Pulse Rate [ 107 H Anterior Bilateral] Pulse Rate [ 89 From Monitor] Respiratory 29 H 28 H 60 H Rate Respiratory Rate [Anterior Bilateral Throughout] Respiratory 28 H Rate [Anterior Bilateral] Blood Pressure 121/55 107/55 O2 Sat by Pulse 100 100 100 Oximetry 11/05/18 11/05/18 11/05/18 08:30 09:00 09:31 Temperature Pulse Rate 103 H 100 H 119 H Pulse Rate [ Anterior Bilateral Throughout] Pulse Rate [ Anterior Bilateral] Pulse Rate [ From Monitor] Respiratory 29 H 28 H 29 H Rate Respiratory Rate [Anterior Bilateral Throughout] Respiratory Rate [Anterior Bilateral] Blood Pressure 107/55 114/55 133/68 O2 Sat by Pulse 100 100 99 Oximetry 11/05/18 10:00 Temperature Pulse Rate 119 H Pulse Rate [ Anterior Bilateral Throughout] Pulse Rate [ Anterior Bilateral] Pulse Rate [ From Monitor] Respiratory 26 H Rate Respiratory Rate [Anterior Bilateral Throughout] Respiratory Rate [Anterior Bilateral] Blood Pressure 127/70 O2 Sat by Pulse 100 Oximetry - General Appearance General appearance: well-developed, appears stated age, frail EENT: ATNC, PERRL, mucous membranes moist Neck: no JVD Respiratory: Present: Clear to Ascultation Cardiology: regular, S1S2 Gastrointestinal: normoactive bowel sounds Integumentary: no rash, other (no edema ) Neurologic: no focal deficit, alert and oriented x3, strength 5/5, CN 3-12 intact Psychiatric: mood/affect appropriate, cooperative - Lab 11/05/18 05:30 11/05/18 05:30 Most recent lab results Calcium 7.9 mg/dL (8.4-10.2) L 11/05/18 05:30 Phosphorus 3.30 mg/dL (2.5-4.5) 11/05/18 05:30 Magnesium 2.00 mg/dL (1.7-2.3) 11/05/18 05:30 Medications & Allergies - Medications Allergies/Adverse Reactions: Allergies Sulfa (Sulfonamide Antibiotics) Allergy (Intermediate, Verified 10/22/18 16:30) Rash metoclopramide HCl [From Reglan] Allergy (Verified 10/22/18 16:30) Dizziness prochlorperazine [From Compazine] Allergy (Verified 10/22/18 16:30) NECK STIFFNESS Home Medications: Home Medications Medication Instructions Recorded Confirmed Last Taken Type Ondansetron 4 mg PO Q6HR PRN 12/05/16 10/22/18 10/29/17 History Propranolol HCl [Propranolol HCl 60 mg PO DAILY 12/05/16 10/22/18 10/30/17 22:00 History ER] QUEtiapine [SEROquel] 300 mg PO DAILY 12/05/16 10/22/18 10/30/17 History Lasix TAB 40 mg PO PRN PRN 12/07/16 10/22/18 10/24/17 History Percocet 10/325 mg 1 tab PO PRN PRN 12/07/16 10/22/18 10/30/17 History Albuterol Sulfate [Albuterol 0.63% 0.63 mg IH TID PRN 10/22/17 10/22/18 10/29/17 History NEBS] Active Medications: Generic Name Dose Route Start Last Admin Trade Name Freq PRN Reason Stop Dose Admin Acetaminophen 650 mg 10/22/18 20:10 Tylenol PO Q4H PRN Pain MILD(1-3)/Fever >100.5/PORTER Albuterol 2.5 mg 10/22/18 20:14 10/28/18 06:34 Proventil IH 2.5 mg Q4HRT PRN Administration Shortness Of Breath Albuterol/Ipratropium 1 ampul 10/28/18 12:00 11/05/18 08:27 Duoneb *Not For Prn Use* IH 1 ampul Q4HRT RICK Administration Lipase/Protease/Amylase 1 each 11/05/18 10:13 Pancremaranda Simpson 10,500 Unit FEEDTUBE PRN PRN For Clogged Feeding Tube Budesonide 0.5 mg 10/23/18 08:00 11/05/18 08:27 Pulmicort IH 0.5 mg Q12HRT RICK Administration Dextrose 50 ml 10/26/18 23:40 10/27/18 00:20 D50w (25gm) Syringe IV 50 ml PRN PRN Administration Hypoglycemia Hydralazine HCl 10 mg 10/22/18 21:41 Apresoline IV Q4HR PRN Blood Pressure Metronidazole 500 mg in 100 mls @ 100 mls/hr 10/30/18 14:00 11/05/18 05:54 Flagyl 500 Mg/100 Ml IV 100 mls/hr Q8HR [facility] Administration Protocol Cefepime HCl 2 gm in 100 mls @ 200 mls/hr 10/31/18 22:00 11/05/18 10:35 Maxipime/Ns 2 Gm/100 Ml IV 200 mls/hr Q12HR RICK Administration Protocol Levofloxacin/Dextrose 500 mg in 100 mls @ 100 mls/hr 10/31/18 17:00 11/05/18 10:35 Levaquin 500mg/100ml IV 100 mls/hr Q24HR RICK Administration Protocol Micafungin Sodium 100 mg/ 100 mls @ 100 mls/hr 11/02/18 10:00 11/05/18 10:35 Sodium Chloride IV 100 mls/hr QDAY RICK Administration Protocol Amino Acids/Electrolytes/Dextrose 2,400 mls @ 100 mls/hr 11/04/18 20:00 11/04/18 20:43 Tpn Adult IV 11/05/18 19:59 100 mls/hr DAILY@2000 RICK Administration Protocol Insulin Human Lispro 0 unit 10/29/18 12:00 11/05/18 05:54 Humalog SUB-Q Not Given Q6HR [facility] Protocol Lorazepam 0.5 mg 10/26/18 22:44 10/26/18 23:14 Ativan IV 0.5 mg Q4H PRN Administration Anxiety Metoprolol Tartrate 5 mg 10/31/18 14:00 11/05/18 07:23 Lopressor IV 5 mg TID RICK Administration Morphine Sulfate 2 mg 10/24/18 13:39 11/05/18 07:23 Morphine IV 2 mg Q4H PRN Administration Pain, Moderate (4-6) Ondansetron HCl 4 mg 10/24/18 10:05 10/25/18 17:26 Zofran IV 4 mg Q6H PRN Administration Nausea And Vomiting Pantoprazole Sodium 40 mg 11/05/18 10:00 11/05/18 10:34 Protonix IV 40 mg DAILY RICK Administration Phenol 1 spray 10/28/18 10:16 Chloraseptic MM PRN PRN Sore Throat Promethazine HCl 25 mg 10/22/18 20:10 10/22/18 21:21 Phenergan [place] 25 mg Q6H PRN Administration Nausea And Vomiting Simple Syrup 15 ml 11/05/18 10:13 Simple Syrup FEEDTUBE PRN PRN Hypoglycemia Simple Syrup 30 ml 11/05/18 10:13 Simple Syrup FEEDTUBE PRN PRN Hypoglycemia Sodium Bicarbonate 325 mg 11/05/18 10:13 Sodium Bicarbonate FEEDTUBE PRN PRN For Clogged Feeding Tube Sodium Chloride 10 ml 10/22/18 22:00 11/05/18 10:36 Sodium Chloride Flush Syringe 10 Ml IV 10 ml BID RICK Administration Sodium Chloride 10 ml 10/22/18 20:10 10/24/18 18:32 Sodium Chloride Flush Syringe 10 Ml IV 10 ml PRN PRN Administration LINE FLUSH
--- NOTE | 2018-11-05 11:11 | Progress Note ---
Assessment and Plan 73 y/o female with bowel obstruction and now acute respiratory failure with hypercapnea, likely multifactorial from pain medications, anti-psychotic therapy and inability to take deep breaths for ventilation, now with fungemia from picc line placement. 1. Extubate today 2. Follow blood cultures. 3. Continue TPN, but will start trickle feeds 4. abx therapy per ID 5. Continue ICU monitoring post extubation CCT 31 minutes. Subjective Date of service: 11/05/18 Principal diagnosis: colitis, N/V/D Interval history: Awake and alert. Had CT of abdomen done and no extravasation seen. at bedside. Wants tube out. Objective Vital Signs - 12hr 11/04/18 11/04/18 11/04/18 23:00 23:30 23:56 Temperature 99.1 F Pulse Rate 113 H 112 H Pulse Rate [ Anterior Bilateral Throughout] Pulse Rate [ Anterior Bilateral] Pulse Rate [ From Monitor] Respiratory 28 H 28 H Rate Respiratory Rate [Anterior Bilateral Throughout] Respiratory Rate [Anterior Bilateral] Blood Pressure 108/50 113/53 O2 Sat by Pulse 99 99 Oximetry 11/05/18 11/05/18 11/05/18 00:00 00:30 01:00 Temperature Pulse Rate 109 H 101 H 101 H Pulse Rate [ Anterior Bilateral Throughout] Pulse Rate [ Anterior Bilateral] Pulse Rate [ From Monitor] Respiratory 28 H 28 H 28 H Rate Respiratory Rate [Anterior Bilateral Throughout] Respiratory Rate [Anterior Bilateral] Blood Pressure 112/55 118/48 123/48 O2 Sat by Pulse 99 100 100 Oximetry 11/05/18 11/05/18 11/05/18 01:17 01:21 01:30 Temperature Pulse Rate 119 H 116 H Pulse Rate [ 117 H 114 H Anterior Bilateral Throughout] Pulse Rate [ Anterior Bilateral] Pulse Rate [ From Monitor] Respiratory 30 H Rate Respiratory 29 H 24 Rate [Anterior Bilateral Throughout] Respiratory Rate [Anterior Bilateral] Blood Pressure 123/48 133/60 O2 Sat by Pulse 99 99 Oximetry 11/05/18 11/05/18 11/05/18 02:01 02:30 03:00 Temperature Pulse Rate 125 H 121 H 121 H Pulse Rate [ Anterior Bilateral Throughout] Pulse Rate [ Anterior Bilateral] Pulse Rate [ From Monitor] Respiratory 27 H 30 H 30 H Rate Respiratory Rate [Anterior Bilateral Throughout] Respiratory Rate [Anterior Bilateral] Blood Pressure 128/58 127/63 135/61 O2 Sat by Pulse 99 99 99 Oximetry 11/05/18 11/05/18 11/05/18 03:27 03:30 04:00 Temperature 99.0 F Pulse Rate 122 H Pulse Rate [ Anterior Bilateral Throughout] Pulse Rate [ Anterior Bilateral] Pulse Rate [ From Monitor] Respiratory 27 H Rate Respiratory Rate [Anterior Bilateral Throughout] Respiratory Rate [Anterior Bilateral] Blood Pressure 135/66 O2 Sat by Pulse 100 99 Oximetry 11/05/18 11/05/18 11/05/18 04:01 04:30 04:41 Temperature Pulse Rate 138 H 126 H 124 H Pulse Rate [ Anterior Bilateral Throughout] Pulse Rate [ Anterior Bilateral] Pulse Rate [ From Monitor] Respiratory 25 H 29 H Rate Respiratory Rate [Anterior Bilateral Throughout] Respiratory Rate [Anterior Bilateral] Blood Pressure 142/58 144/66 144/66 O2 Sat by Pulse 98 99 100 Oximetry 11/05/18 11/05/18 11/05/18 04:52 05:00 05:19 Temperature Pulse Rate 120 H Pulse Rate [ 122 H 111 H Anterior Bilateral Throughout] Pulse Rate [ Anterior Bilateral] Pulse Rate [ From Monitor] Respiratory 26 H Rate Respiratory 24 28 H Rate [Anterior Bilateral Throughout] Respiratory Rate [Anterior Bilateral] Blood Pressure 142/58 O2 Sat by Pulse 100 Oximetry 11/05/18 11/05/18 11/05/18 05:30 06:00 06:30 Temperature Pulse Rate 122 H 116 H 100 H Pulse Rate [ Anterior Bilateral Throughout] Pulse Rate [ Anterior Bilateral] Pulse Rate [ From Monitor] Respiratory 28 H 28 H 28 H Rate Respiratory Rate [Anterior Bilateral Throughout] Respiratory Rate [Anterior Bilateral] Blood Pressure 131/67 122/67 124/61 O2 Sat by Pulse 100 100 100 Oximetry 11/05/18 11/05/18 11/05/18 07:00 07:23 07:30 Temperature Pulse Rate 100 H 104 H 90 Pulse Rate [ Anterior Bilateral Throughout] Pulse Rate [ Anterior Bilateral] Pulse Rate [ From Monitor] Respiratory 28 H 28 H Rate Respiratory Rate [Anterior Bilateral Throughout] Respiratory Rate [Anterior Bilateral] Blood Pressure 108/57 108/57 108/52 O2 Sat by Pulse 100 100 Oximetry 11/05/18 11/05/18 11/05/18 07:43 08:00 08:28 Temperature 99.6 F Pulse Rate 90 109 H Pulse Rate [ Anterior Bilateral Throughout] Pulse Rate [ 107 H Anterior Bilateral] Pulse Rate [ 89 From Monitor] Respiratory 29 H 28 H 60 H Rate Respiratory Rate [Anterior Bilateral Throughout] Respiratory 28 H Rate [Anterior Bilateral] Blood Pressure 121/55 107/55 O2 Sat by Pulse 100 100 100 Oximetry 11/05/18 11/05/18 11/05/18 08:30 09:00 09:31 Temperature Pulse Rate 103 H 100 H 119 H Pulse Rate [ Anterior Bilateral Throughout] Pulse Rate [ Anterior Bilateral] Pulse Rate [ From Monitor] Respiratory 29 H 28 H 29 H Rate Respiratory Rate [Anterior Bilateral Throughout] Respiratory Rate [Anterior Bilateral] Blood Pressure 107/55 114/55 133/68 O2 Sat by Pulse 100 100 99 Oximetry 11/05/18 10:00 Temperature Pulse Rate 119 H Pulse Rate [ Anterior Bilateral Throughout] Pulse Rate [ Anterior Bilateral] Pulse Rate [ From Monitor] Respiratory 26 H Rate Respiratory Rate [Anterior Bilateral Throughout] Respiratory Rate [Anterior Bilateral] Blood Pressure 127/70 O2 Sat by Pulse 100 Oximetry Constitutional: no acute distress, alert Eyes: non-icteric ENT: other (orally intubated) Neck: supple, no JVD Effort: mildly labored Ascultation: Bilateral: clear, diminished breath sounds (at bases), wheezes, rales, rhonchi (sporadic) Percussion: Bilateral: not dull Cardiovascular: regular rate and rhythm Gastrointestinal: hypoactive bowel sounds, other (soft and depressible. Decreased bowel sounds, no rebound tenderness mild distention) Integumentary: normal Extremities: no edema Neurologic: normal mental status, non-focal exam Psychiatric: anxious CBC and BMP: 11/05/18 05:30 11/05/18 05:30 ABG, PT/INR, D-dimer: ABG POC ABG pH 7.365 (7.35-7.45) 11/04/18 05:15 POC ABG pCO2 30.9 (35-45) L 11/04/18 05:15 POC ABG pO2 192 (80-105) H 11/04/18 05:15 POC ABG HCO3 17.7 (22-26 mml/L) 11/04/18 05:15 POC ABG Total CO2 19 (23-27mmol/L) 11/04/18 05:15 POC ABG O2 Sat 100 11/04/18 05:15 Abnormal lab findings: Abnormal Labs 10/22/18 10/22/18 10/22/18 15:31 15:54 15:54 WBC 11.5 H RBC 5.35 H Hgb 17.4 H Hct 50.3 H MCV MCH 33 H MCHC 35 H Plt Count Lymph % (Auto) 12.6 L [place] % (Auto) 14.8 H Lymph # [place] # 1.7 H Seg Neutrophils % 72.5 H Seg Neuts % (Manual) Lymphocytes % (Manual) Seg Neutrophils # 8.3 H Seg Neutrophils # Man Lymphocytes # (Manual) POC ABG pH POC ABG pCO2 POC ABG pO2 Sodium 134 L Potassium Chloride 88.1 L Carbon Dioxide BUN 51 H Creatinine 2.1 H Glucose 166 H POC Glucose Calcium Phosphorus Magnesium Total Protein Albumin 3.4 L Lipase 10 L Free T4 10/23/18 10/23/18 10/23/18 04:32 04:32 10:53 WBC RBC Hgb Hct MCV MCH MCHC Plt Count Lymph % (Auto) 10.2 L [place] % (Auto) 14.7 H Lymph # 0.7 L [place] # 1.0 H Seg Neutrophils % 74.9 H Seg Neuts % (Manual) Lymphocytes % (Manual) Seg Neutrophils # Seg Neutrophils # Man Lymphocytes # (Manual) POC ABG pH POC ABG pCO2 POC ABG pO2 Sodium Potassium 3.1 L D 3.5 L Chloride Carbon Dioxide BUN 41 H 37 H Creatinine Glucose 111 H 110 H POC Glucose Calcium 8.1 L 8.1 L Phosphorus Magnesium Total Protein Albumin Lipase Free T4 10/24/18 10/24/18 10/25/18 05:34 05:34 04:51 WBC RBC Hgb Hct MCV MCH MCHC Plt Count Lymph % (Auto) [place] % (Auto) Lymph # [place] # Seg Neutrophils % Seg Neuts % (Manual) Lymphocytes % (Manual) Seg Neutrophils # Seg Neutrophils # Man Lymphocytes # (Manual) POC ABG pH POC ABG pCO2 POC ABG pO2 Sodium Potassium 3.2 L 3.1 L Chloride 109.8 H 114.2 H Carbon Dioxide 17 L D BUN 21 H Creatinine Glucose 134 H 171 H POC Glucose Calcium 7.7 L 7.0 L Phosphorus 0.80 L* Magnesium Total Protein Albumin Lipase Free T4 10/25/18 10/26/18 10/26/18 06:07 02:58 04:57 WBC RBC Hgb Hct MCV 99 H MCH 33 H MCHC Plt Count Lymph % (Auto) [place] % (Auto) Lymph # [place] # Seg Neutrophils % Seg Neuts % (Manual) Lymphocytes % (Manual) Seg Neutrophils # Seg Neutrophils # Man Lymphocytes # (Manual) POC ABG pH 7.090 L 7.320 L POC ABG pCO2 65.0 H 32.8 L POC ABG pO2 76 L Sodium Potassium Chloride Carbon Dioxide BUN Creatinine Glucose POC Glucose Calcium Phosphorus Magnesium Total Protein Albumin Lipase Free T4 10/26/18 10/26/18 10/26/18 06:03 06:03 11:52 WBC 23.8 H RBC Hgb 15.4 H Hct 46.1 H D MCV MCH MCHC Plt Count Lymph % (Auto) [place] % (Auto) Lymph # [place] # Seg Neutrophils % Seg Neuts % (Manual) Lymphocytes % (Manual) Seg Neutrophils # Seg Neutrophils # Man Lymphocytes # (Manual) POC ABG pH POC ABG pCO2 POC ABG pO2 Sodium Potassium Chloride 109.5 H Carbon Dioxide 18 L BUN Creatinine Glucose 128 H POC Glucose 117 H Calcium 8.3 L D Phosphorus Magnesium Total Protein Albumin Lipase Free T4 10/26/18 10/26/18 10/26/18 13:54 17:10 17:32 WBC RBC Hgb Hct MCV MCH MCHC Plt Count Lymph % (Auto) [place] % (Auto) Lymph # [place] # Seg Neutrophils % Seg Neuts % (Manual) Lymphocytes % (Manual) Seg Neutrophils # Seg Neutrophils # Man Lymphocytes # (Manual) POC ABG pH 7.215 L POC ABG pCO2 31.8 L POC ABG pO2 69 L 204 H Sodium Potassium 3.0 L D Chloride 114.5 H Carbon Dioxide 21 L BUN Creatinine Glucose POC Glucose Calcium 7.6 L Phosphorus Magnesium 1.40 L Total Protein Albumin Lipase Free T4 10/26/18 10/27/18 10/27/18 23:13 00:40 01:09 WBC RBC Hgb Hct MCV MCH MCHC Plt Count Lymph % (Auto) [place] % (Auto) Lymph # [place] # Seg Neutrophils % Seg Neuts % (Manual) Lymphocytes % (Manual) Seg Neutrophils # Seg Neutrophils # Man Lymphocytes # (Manual) POC ABG pH POC ABG pCO2 POC ABG pO2 Sodium Potassium 3.4 L Chloride 115.0 H Carbon Dioxide 14 L D BUN Creatinine Glucose 228 H POC Glucose 48 L 264 H Calcium 7.1 L Phosphorus Magnesium Total Protein Albumin Lipase Free T4 10/27/18 10/27/18 10/27/18 05:00 05:00 05:16 WBC 22.5 H RBC Hgb 14.7 H Hct 44.4 H MCV MCH MCHC Plt Count Lymph % (Auto) [place] % (Auto) Lymph # [place] # Seg Neutrophils % Seg Neuts % (Manual) Lymphocytes % (Manual) Seg Neutrophils # Seg Neutrophils # Man Lymphocytes # (Manual) POC ABG pH 7.304 L POC ABG pCO2 POC ABG pO2 116 H Sodium Potassium Chloride 118.4 H Carbon Dioxide 16 L BUN Creatinine Glucose 123 H POC Glucose Calcium 7.7 L Phosphorus Magnesium 2.60 H Total Protein Albumin Lipase Free T4 10/28/18 10/28/18 10/28/18 04:25 04:25 15:37 WBC 23.5 H RBC Hgb Hct MCV MCH MCHC Plt Count Lymph % (Auto) [place] % (Auto) Lymph # [place] # Seg Neutrophils % Seg Neuts % (Manual) Lymphocytes % (Manual) Seg Neutrophils # Seg Neutrophils # Man Lymphocytes # (Manual) POC ABG pH POC ABG pCO2 POC ABG pO2 Sodium 147 H Potassium Chloride 116.9 H Carbon Dioxide 16 L BUN 23 H Creatinine Glucose POC Glucose 114 H Calcium 8.0 L Phosphorus Magnesium Total Protein Albumin Lipase Free T4 10/28/18 10/28/18 10/28/18 20:33 22:07 23:31 WBC RBC Hgb Hct MCV MCH MCHC Plt Count Lymph % (Auto) [place] % (Auto) Lymph # [place] # Seg Neutrophils % Seg Neuts % (Manual) Lymphocytes % (Manual) Seg Neutrophils # Seg Neutrophils # Man Lymphocytes # (Manual) POC ABG pH 7.202 L 7.235 L POC ABG pCO2 POC ABG pO2 71 L Sodium Potassium Chloride Carbon Dioxide BUN Creatinine Glucose POC Glucose 207 H Calcium Phosphorus Magnesium Total Protein Albumin Lipase Free T4 10/29/18 10/29/18 10/29/18 04:30 04:30 05:26 WBC 21.1 H RBC Hgb Hct MCV MCH MCHC Plt Count Lymph % (Auto) [place] % (Auto) Lymph # [place] # Seg Neutrophils % Seg Neuts % (Manual) 97.0 H Lymphocytes % (Manual) 3.0 L Seg Neutrophils # Seg Neutrophils # Man 20.5 H Lymphocytes # (Manual) 0.6 L POC ABG pH 7.305 L POC ABG pCO2 30.5 L POC ABG pO2 75 L Sodium 147 H Potassium 3.5 L Chloride 120.0 H Carbon Dioxide 17 L BUN 30 H Creatinine Glucose 246 H POC Glucose Calcium 7.9 L Phosphorus Magnesium Total Protein Albumin Lipase Free T4 10/29/18 10/29/18 10/29/18 05:36 11:39 18:00 WBC RBC Hgb Hct MCV MCH MCHC Plt Count Lymph % (Auto) [place] % (Auto) Lymph # [place] # Seg Neutrophils % Seg Neuts % (Manual) Lymphocytes % (Manual) Seg Neutrophils # Seg Neutrophils # Man Lymphocytes # (Manual) POC ABG pH POC ABG pCO2 POC ABG pO2 Sodium Potassium Chloride Carbon Dioxide BUN Creatinine Glucose POC Glucose 204 H 224 H 221 H Calcium Phosphorus Magnesium Total Protein Albumin Lipase Free T4 10/29/18 10/30/18 10/30/18 23:17 05:00 05:00 WBC 21.4 H RBC Hgb Hct MCV MCH MCHC Plt Count 134 L Lymph % (Auto) [place] % (Auto) Lymph # [place] # Seg Neutrophils % Seg Neuts % (Manual) 97.0 H Lymphocytes % (Manual) 3.0 L Seg Neutrophils # Seg Neutrophils # Man 20.8 H Lymphocytes # (Manual) 0.6 L POC ABG pH POC ABG pCO2 POC ABG pO2 Sodium 148 H Potassium 3.1 L Chloride 120.3 H Carbon Dioxide 18 L BUN 31 H Creatinine Glucose 205 H POC Glucose 181 H Calcium 8.0 L Phosphorus Magnesium Total Protein Albumin Lipase Free T4 10/30/18 10/30/18 10/30/18 05:14 05:25 05:26 WBC RBC Hgb Hct MCV MCH MCHC Plt Count Lymph % (Auto) [place] % (Auto) Lymph # [place] # Seg Neutrophils % Seg Neuts % (Manual) Lymphocytes % (Manual) Seg Neutrophils # Seg Neutrophils # Man Lymphocytes # (Manual) POC ABG pH 7.296 L 7.245 L POC ABG pCO2 31.1 L POC ABG pO2 54 L 59 L Sodium Potassium Chloride Carbon Dioxide BUN Creatinine Glucose POC Glucose 199 H Calcium Phosphorus Magnesium Total Protein Albumin Lipase Free T4 10/30/18 10/30/18 10/31/18 13:23 18:25 00:22 WBC RBC Hgb Hct MCV MCH MCHC Plt Count Lymph % (Auto) [place] % (Auto) Lymph # [place] # Seg Neutrophils % Seg Neuts % (Manual) Lymphocytes % (Manual) Seg Neutrophils # Seg Neutrophils # Man Lymphocytes # (Manual) POC ABG pH POC ABG pCO2 POC ABG pO2 Sodium Potassium Chloride Carbon Dioxide BUN Creatinine Glucose POC Glucose 146 H 158 H 162 H Calcium Phosphorus Magnesium Total Protein Albumin Lipase Free T4 10/31/18 10/31/18 10/31/18 04:39 05:14 07:05 WBC RBC Hgb Hct MCV MCH MCHC Plt Count Lymph % (Auto) [place] % (Auto) Lymph # [place] # Seg Neutrophils % Seg Neuts % (Manual) Lymphocytes % (Manual) Seg Neutrophils # Seg Neutrophils # Man Lymphocytes # (Manual) POC ABG pH 7.238 L POC ABG pCO2 POC ABG pO2 Sodium Potassium Chloride 115.8 H Carbon Dioxide 18 L BUN 39 H Creatinine 1.3 H Glucose 167 H POC Glucose 145 H Calcium 7.5 L Phosphorus 1.80 L Magnesium Total Protein Albumin Lipase Free T4 10/31/18 10/31/18 10/31/18 10:43 12:03 17:00 WBC RBC Hgb Hct MCV MCH MCHC Plt Count Lymph % (Auto) [place] % (Auto) Lymph # [place] # Seg Neutrophils % Seg Neuts % (Manual) Lymphocytes % (Manual) Seg Neutrophils # Seg Neutrophils # Man Lymphocytes # (Manual) POC ABG pH 7.304 L POC ABG pCO2 33.3 L POC ABG pO2 Sodium Potassium Chloride Carbon Dioxide BUN Creatinine Glucose POC Glucose 159 H Calcium Phosphorus Magnesium Total Protein Albumin Lipase Free T4 0.49 L 10/31/18 11/01/18 11/01/18 17:00 00:44 05:27 WBC RBC Hgb Hct MCV MCH MCHC Plt Count Lymph % (Auto) [place] % (Auto) Lymph # [place] # Seg Neutrophils % Seg Neuts % (Manual) Lymphocytes % (Manual) Seg Neutrophils # Seg Neutrophils # Man Lymphocytes # (Manual) POC ABG pH 7.248 L POC ABG pCO2 34.8 L POC ABG pO2 135 H Sodium Potassium Chloride Carbon Dioxide BUN Creatinine Glucose POC Glucose 127 H 118 H Calcium Phosphorus Magnesium Total Protein Albumin Lipase Free T4 11/01/18 11/01/18 11/01/18 06:40 06:40 06:53 WBC 18.9 H RBC 3.63 L Hgb Hct MCV MCH MCHC Plt Count 64 L Lymph % (Auto) [place] % (Auto) Lymph # [place] # Seg Neutrophils % Seg Neuts % (Manual) 98.0 H Lymphocytes % (Manual) 1.0 L Seg Neutrophils # Seg Neutrophils # Man 18.5 H Lymphocytes # (Manual) 0.2 L POC ABG pH POC ABG pCO2 POC ABG pO2 Sodium Potassium 3.5 L Chloride 114.2 H Carbon Dioxide 17 L BUN 49 H Creatinine Glucose 107 H POC Glucose 127 H Calcium 7.3 L Phosphorus Magnesium 1.60 L Total Protein Albumin Lipase Free T4 11/01/18 11/01/18 11/01/18 11:49 13:13 17:24 WBC RBC Hgb Hct MCV MCH MCHC Plt Count Lymph % (Auto) [place] % (Auto) Lymph # [place] # Seg Neutrophils % Seg Neuts % (Manual) Lymphocytes % (Manual) Seg Neutrophils # Seg Neutrophils # Man Lymphocytes # (Manual) POC ABG pH POC ABG pCO2 POC ABG pO2 182 H Sodium Potassium Chloride Carbon Dioxide BUN Creatinine Glucose POC Glucose 134 H 111 H Calcium Phosphorus Magnesium Total Protein Albumin Lipase Free T4 11/01/18 11/02/18 11/02/18 23:07 04:32 05:00 WBC RBC Hgb Hct MCV MCH MCHC Plt Count Lymph % (Auto) [place] % (Auto) Lymph # [place] # Seg Neutrophils % Seg Neuts % (Manual) Lymphocytes % (Manual) Seg Neutrophils # Seg Neutrophils # Man Lymphocytes # (Manual) POC ABG pH 7.244 L POC ABG pCO2 33.2 L POC ABG pO2 123 H Sodium Potassium 3.0 L Chloride 114.1 H Carbon Dioxide 15 L BUN 47 H Creatinine Glucose 127 H POC Glucose 123 H Calcium 7.7 L Phosphorus Magnesium Total Protein Albumin Lipase Free T4 11/02/18 11/02/18 11/02/18 05:00 05:29 11:27 WBC RBC Hgb Hct MCV MCH MCHC Plt Count Lymph % (Auto) [place] % (Auto) Lymph # [place] # Seg Neutrophils % Seg Neuts % (Manual) Lymphocytes % (Manual) Seg Neutrophils # Seg Neutrophils # Man Lymphocytes # (Manual) POC ABG pH POC ABG pCO2 POC ABG pO2 Sodium Potassium Chloride Carbon Dioxide BUN Creatinine Glucose POC Glucose 118 H 137 H Calcium Phosphorus Magnesium 1.60 L Total Protein Albumin Lipase Free T4 11/02/18 11/02/18 11/03/18 12:53 23:35 04:14 WBC RBC Hgb Hct MCV MCH MCHC Plt Count Lymph % (Auto) [place] % (Auto) Lymph # [place] # Seg Neutrophils % Seg Neuts % (Manual) Lymphocytes % (Manual) Seg Neutrophils # Seg Neutrophils # Man Lymphocytes # (Manual) POC ABG pH POC ABG pCO2 30.3 L POC ABG pO2 134 H 129 H Sodium Potassium Chloride Carbon Dioxide BUN Creatinine Glucose POC Glucose 115 H Calcium Phosphorus Magnesium Total Protein Albumin Lipase Free T4 11/03/18 11/03/18 11/03/18 05:34 11:30 11:30 WBC 16.4 H RBC 3.50 L Hgb Hct MCV MCH MCHC Plt Count 136 L D Lymph % (Auto) [place] % (Auto) Lymph # [place] # Seg Neutrophils % Seg Neuts % (Manual) 97.0 H Lymphocytes % (Manual) 2.0 L Seg Neutrophils # Seg Neutrophils # Man 15.9 H Lymphocytes # (Manual) 0.3 L POC ABG pH POC ABG pCO2 POC ABG pO2 Sodium Potassium 3.1 L Chloride 110.4 H Carbon Dioxide 17 L BUN 41 H Creatinine Glucose 129 H POC Glucose 116 H Calcium 7.7 L Phosphorus Magnesium 1.60 L Total Protein 4.2 L Albumin 1.2 L Lipase Free T4 11/03/18 11/03/18 11/03/18 12:01 17:35 21:37 WBC RBC Hgb Hct MCV MCH MCHC Plt Count Lymph % (Auto) [place] % (Auto) Lymph # [place] # Seg Neutrophils % Seg Neuts % (Manual) Lymphocytes % (Manual) Seg Neutrophils # Seg Neutrophils # Man Lymphocytes # (Manual) POC ABG pH POC ABG pCO2 POC ABG pO2 Sodium Potassium Chloride Carbon Dioxide BUN Creatinine Glucose POC Glucose 132 H 132 H 126 H Calcium Phosphorus Magnesium Total Protein Albumin Lipase Free T4 11/03/18 11/04/18 11/04/18 23:30 05:14 05:15 WBC RBC Hgb Hct MCV MCH MCHC Plt Count Lymph % (Auto) [place] % (Auto) Lymph # [place] # Seg Neutrophils % Seg Neuts % (Manual) Lymphocytes % (Manual) Seg Neutrophils # Seg Neutrophils # Man Lymphocytes # (Manual) POC ABG pH POC ABG pCO2 30.9 L POC ABG pO2 192 H Sodium Potassium Chloride Carbon Dioxide BUN Creatinine Glucose POC Glucose 115 H 123 H Calcium Phosphorus Magnesium Total Protein Albumin Lipase Free T4 11/04/18 11/04/18 11/04/18 09:39 09:39 11:43 WBC 15.2 H RBC 3.18 L Hgb Hct 29.9 L MCV MCH MCHC Plt Count Lymph % (Auto) [place] % (Auto) Lymph # [place] # Seg Neutrophils % Seg Neuts % (Manual) 98.0 H Lymphocytes % (Manual) 1.0 L Seg Neutrophils # Seg Neutrophils # Man 14.9 H Lymphocytes # (Manual) 0.2 L POC ABG pH POC ABG pCO2 POC ABG pO2 Sodium 135 L D Potassium Chloride 109.5 H Carbon Dioxide 16 L BUN 46 H Creatinine Glucose 136 H POC Glucose 138 H Calcium 8.0 L Phosphorus Magnesium Total Protein Albumin Lipase Free T4 11/04/18 11/04/18 11/05/18 17:31 23:42 05:23 WBC RBC Hgb Hct MCV MCH MCHC Plt Count Lymph % (Auto) [place] % (Auto) Lymph # [place] # Seg Neutrophils % Seg Neuts % (Manual) Lymphocytes % (Manual) Seg Neutrophils # Seg Neutrophils # Man Lymphocytes # (Manual) POC ABG pH POC ABG pCO2 POC ABG pO2 Sodium Potassium Chloride Carbon Dioxide BUN Creatinine Glucose POC Glucose 139 H 138 H 148 H Calcium Phosphorus Magnesium Total Protein Albumin Lipase Free T4 11/05/18 11/05/18 05:30 05:30 WBC 14.2 H RBC 3.12 L Hgb 10.0 L Hct 29.1 L MCV MCH MCHC Plt Count Lymph % (Auto) [place] % (Auto) Lymph # [place] # Seg Neutrophils % Seg Neuts % (Manual) Lymphocytes % (Manual) Seg Neutrophils # Seg Neutrophils # Man Lymphocytes # (Manual) POC ABG pH POC ABG pCO2 POC ABG pO2 Sodium Potassium Chloride Carbon Dioxide 21 L BUN 42 H Creatinine Glucose 125 H POC Glucose Calcium 7.9 L Phosphorus Magnesium Total Protein Albumin Lipase Free T4 Allied health notes reviewed: nursing
--- NOTE | 2018-11-05 11:33 | Progress Note ---
Assessment and Plan Cultures: Blood cultures 10/22/2018 no growth so far. Tracheal asp cultures 10/28/2018: E.coli and Stenotrophomonas. 10/30/2018 blood culture: Ayla non albicans 11/03/2018 fungal blood culture: no growth thus far Assessment: 73 y/o female with history of COPD, hypertension, lupus, fibromyalgia, opioid dependence admitted on 10/22/2018 due to 3-day history of intractable nausea, vomiting, diarrhea: 1) SIRS v/s sepsis: Etiology most likely aspiration pneumonia +/- intra- abdominal source from contained gastric perforation. Now also with Candidemia. 2) Candidemia: in the setting of TPN and PICC line. PICC removed. Has temporary central line. TTE not optimal quality, will need LAUREN only if repeat fungal blood cultures are positive. Continue IV Micafungin and f/u fungal blood cultures. 3) Presumed aspiration pneumonia v/s HAP: Tracheal asp cultures 10/28/2018 with E.coli and Stenotrophomonas. Stenotrophomonas is a known colonizer in patients with structural lung disease or tracheostomy tubes/ET tubes, not generally considered very virulent. Stop abx tomorrow. 4) Acute respiratory failure: pneumonia and fluid overload. Extubated 11/05/2018. 5) Ileus v/s partial SBO and contained gastric perforation: Gen Surgery following. Planned for conservative management, trickle feeds and TPN. 6) ADWOA: improved. Recommendations: - continue Cefepime, Flagyl, Levofloxacin for 1 more day, planned to stop tomorrow - continue IV Micafungin, follow up repeat fungal blood cultures - follow up ID on Ayla species (non-albicans) - TTE not optimal quality, will need LAUREN only if repeat fungal blood cultures are positive - monitor WBC Plan discussed with patient and at bedside. Phong Joy MD [facility] C: [phone] O: [phone] F: [phone] Subjective Date of service: 11/05/18 Principal diagnosis: colitis, N/V/D Interval history: No fever. Extubated. Planned to start trickle feeds. Denies any complaints as such. Objective - Exam Narrative Exam: Physical Exam: Constitutional: awake, alert, no distress Head, Ears, Nose: Normocephalic, atraumatic. External ears, nose normal Eyes: Conjunctivae/corneas clear. No icterus. No ptosis. Neck: Supple, no meningeal signs. central line + Oral: several missing teeth, no thrush. Cardiovascular: S1, S2 normal, no murmur heard Respiratory: bilateral rhonchi, AE reduced in the bases GI: Soft, non-tender; bowel sounds hypoactive, No peritoneal signs Musculoskeletal: anasarca + Skin: No rash or abscess Hem/Lymphatic: No palpable cervical or supraclavicular nodes. No lymphangitis Psych: calm, no agitation Neurological: awake, alert, oriented x 3. - Constitutional Vitals: Vital Signs Temp Pulse Resp BP Pulse Ox 99.6 F 119 H 22 137/60 98 11/05/18 08:00 11/05/18 11:00 11/05/18 11:00 11/05/18 11:00 11/05/18 11:00 Temperature -Last 24 Hours Temperature 99.6 F Temperature 99.0 F Temperature 99.1 F Temperature 99.6 F Temperature 98.5 F Temperature 98.8 F - Labs CBC & Chem 7: 11/05/18 05:30 11/05/18 05:30 Labs: Abnormal lab results 11/04/18 11/04/18 11/04/18 Range/Units 09:39 09:39 11:43 WBC (4.5-11.0) K/mm3 RBC (3.65-5.03) M/mm3 Hgb (10.1-14.3) gm/dl Hct (30.3-42.9) % Seg Neuts % (Manual) 98.0 H (40.0-70.0) % Lymphocytes % (Manual) 1.0 L (13.4-35.0) % Seg Neutrophils # Man 14.9 H (1.8-7.7) K/mm3 Lymphocytes # (Manual) 0.2 L (1.2-5.4) K/mm3 Carbon Dioxide (22-30) mmol/L BUN 46 H (7-17) mg/dL Glucose (65-100) mg/dL POC Glucose 138 H (70-105) Calcium (8.4-10.2) mg/dL 11/04/18 11/04/18 11/05/18 Range/Units 17:31 23:42 05:23 WBC (4.5-11.0) K/mm3 RBC (3.65-5.03) M/mm3 Hgb (10.1-14.3) gm/dl Hct (30.3-42.9) % Seg Neuts % (Manual) (40.0-70.0) % Lymphocytes % (Manual) (13.4-35.0) % Seg Neutrophils # Man (1.8-7.7) K/mm3 Lymphocytes # (Manual) (1.2-5.4) K/mm3 Carbon Dioxide (22-30) mmol/L BUN (7-17) mg/dL Glucose (65-100) mg/dL POC Glucose 139 H 138 H 148 H (70-105) Calcium (8.4-10.2) mg/dL 11/05/18 11/05/18 Range/Units 05:30 05:30 WBC 14.2 H (4.5-11.0) K/mm3 RBC 3.12 L (3.65-5.03) M/mm3 Hgb 10.0 L (10.1-14.3) gm/dl Hct 29.1 L (30.3-42.9) % Seg Neuts % (Manual) (40.0-70.0) % Lymphocytes % (Manual) (13.4-35.0) % Seg Neutrophils # Man (1.8-7.7) K/mm3 Lymphocytes # (Manual) (1.2-5.4) K/mm3 Carbon Dioxide 21 L (22-30) mmol/L BUN 42 H (7-17) mg/dL Glucose 125 H (65-100) mg/dL POC Glucose (70-105) Calcium 7.9 L (8.4-10.2) mg/dL - Imaging and cardiology CT scan - abdomen: report reviewed, image reviewed (contained gastric perforation, no contrast extravasation. Anasarca)
--- NOTE | 2018-11-05 12:37 | Progress Note ---
Assessment and Plan 73 yo F with 1. pSBO - resolved 2. contained gastric perforation 3. VDRF 4. aspiration PNA 5. sepsis 6. Fungemia in blood Obstruction series 10/27 - improved small bowel and stomach dilatation. Obstructions series 10/28 - no significant change since previous study. NGT has been removed Obstruction series 10/29 - relatively normal bowel gas pattern. NGT in place Ct scan A/P from admission reviewed with Dr. Garces - Q[place]. Mesenteric vessels patent. Ct scan C/A/P 10/30 - Images reviewed with Dr. Garces - pSBO resolved, no evidence for bowel ischemia. Small contained gastric perforation at lesser curve. No gross free air or contrast extrav. Ansarca. Bilateral pleural effusions. Bilateral upper lobes infiltrates. Ct scan A/p 11/04 - No extravasation of contrast from stomach Plan: 1. NPO 2. start trickle TF, will slowly advance until patient can tolerate PO diet 3. speech therapy eval 4. TPN - continue until patient on PO diet 5. prn pain control 6. DVT ppx 7. IS/pulm toilet 8. c/w abx per ID 9. PPI daily Discussed plan with at bedside Thank you, please call with questions. Subjective Date of service: 11/05/18 Narrative: Pt seen and examined. Extubated this am and feeling well. No abdominal pain, n/v. Objective Vital Signs - 12hr 11/05/18 11/05/18 11/05/18 01:00 01:17 01:21 Temperature Pulse Rate 101 H 119 H Pulse Rate [ 117 H Anterior Bilateral Throughout] Pulse Rate [ Anterior Bilateral] Pulse Rate [ From Monitor] Respiratory 28 H Rate Respiratory 29 H Rate [Anterior Bilateral Throughout] Respiratory Rate [Anterior Bilateral] Blood Pressure 123/48 123/48 O2 Sat by Pulse 100 99 Oximetry 11/05/18 11/05/18 11/05/18 01:30 02:01 02:30 Temperature Pulse Rate 116 H 125 H 121 H Pulse Rate [ 114 H Anterior Bilateral Throughout] Pulse Rate [ Anterior Bilateral] Pulse Rate [ From Monitor] Respiratory 30 H 27 H 30 H Rate Respiratory 24 Rate [Anterior Bilateral Throughout] Respiratory Rate [Anterior Bilateral] Blood Pressure 133/60 128/58 127/63 O2 Sat by Pulse 99 99 99 Oximetry 11/05/18 11/05/18 11/05/18 03:00 03:27 03:30 Temperature Pulse Rate 121 H 122 H Pulse Rate [ Anterior Bilateral Throughout] Pulse Rate [ Anterior Bilateral] Pulse Rate [ From Monitor] Respiratory 30 H 27 H Rate Respiratory Rate [Anterior Bilateral Throughout] Respiratory Rate [Anterior Bilateral] Blood Pressure 135/61 135/66 O2 Sat by Pulse 99 100 99 Oximetry 11/05/18 11/05/18 11/05/18 04:00 04:01 04:30 Temperature 99.0 F Pulse Rate 138 H 126 H Pulse Rate [ Anterior Bilateral Throughout] Pulse Rate [ Anterior Bilateral] Pulse Rate [ From Monitor] Respiratory 25 H 29 H Rate Respiratory Rate [Anterior Bilateral Throughout] Respiratory Rate [Anterior Bilateral] Blood Pressure 142/58 144/66 O2 Sat by Pulse 98 99 Oximetry 11/05/18 11/05/18 11/05/18 04:41 04:52 05:00 Temperature Pulse Rate 124 H 120 H Pulse Rate [ 122 H Anterior Bilateral Throughout] Pulse Rate [ Anterior Bilateral] Pulse Rate [ From Monitor] Respiratory 26 H Rate Respiratory 24 Rate [Anterior Bilateral Throughout] Respiratory Rate [Anterior Bilateral] Blood Pressure 144/66 142/58 O2 Sat by Pulse 100 100 Oximetry 11/05/18 11/05/18 11/05/18 05:19 05:30 06:00 Temperature Pulse Rate 122 H 116 H Pulse Rate [ 111 H Anterior Bilateral Throughout] Pulse Rate [ Anterior Bilateral] Pulse Rate [ From Monitor] Respiratory 28 H 28 H Rate Respiratory 28 H Rate [Anterior Bilateral Throughout] Respiratory Rate [Anterior Bilateral] Blood Pressure 131/67 122/67 O2 Sat by Pulse 100 100 Oximetry 11/05/18 11/05/18 11/05/18 06:30 07:00 07:23 Temperature Pulse Rate 100 H 100 H 104 H Pulse Rate [ Anterior Bilateral Throughout] Pulse Rate [ Anterior Bilateral] Pulse Rate [ From Monitor] Respiratory 28 H 28 H Rate Respiratory Rate [Anterior Bilateral Throughout] Respiratory Rate [Anterior Bilateral] Blood Pressure 124/61 108/57 108/57 O2 Sat by Pulse 100 100 Oximetry 11/05/18 11/05/18 11/05/18 07:30 07:43 08:00 Temperature 99.6 F Pulse Rate 90 90 Pulse Rate [ Anterior Bilateral Throughout] Pulse Rate [ Anterior Bilateral] Pulse Rate [ 89 From Monitor] Respiratory 28 H 29 H 28 H Rate Respiratory Rate [Anterior Bilateral Throughout] Respiratory Rate [Anterior Bilateral] Blood Pressure 108/52 121/55 O2 Sat by Pulse 100 100 100 Oximetry 11/05/18 11/05/18 11/05/18 08:28 08:30 09:00 Temperature Pulse Rate 109 H 103 H 100 H Pulse Rate [ Anterior Bilateral Throughout] Pulse Rate [ 107 H Anterior Bilateral] Pulse Rate [ From Monitor] Respiratory 60 H 29 H 28 H Rate Respiratory Rate [Anterior Bilateral Throughout] Respiratory 28 H Rate [Anterior Bilateral] Blood Pressure 107/55 107/55 114/55 O2 Sat by Pulse 100 100 100 Oximetry 11/05/18 11/05/18 11/05/18 09:31 10:00 10:30 Temperature Pulse Rate 119 H 119 H 120 H Pulse Rate [ Anterior Bilateral Throughout] Pulse Rate [ Anterior Bilateral] Pulse Rate [ From Monitor] Respiratory 29 H 26 H 26 H Rate Respiratory Rate [Anterior Bilateral Throughout] Respiratory Rate [Anterior Bilateral] Blood Pressure 133/68 127/70 142/66 O2 Sat by Pulse 99 100 99 Oximetry 11/05/18 11/05/18 11/05/18 11:00 11:30 12:00 Temperature 98.1 F Pulse Rate 119 H 124 H 125 H Pulse Rate [ 117 H Anterior Bilateral Throughout] Pulse Rate [ Anterior Bilateral] Pulse Rate [ 122 H From Monitor] Respiratory 22 20 24 Rate Respiratory 25 H Rate [Anterior Bilateral Throughout] Respiratory Rate [Anterior Bilateral] Blood Pressure 137/60 142/61 160/64 O2 Sat by Pulse 98 96 97 Oximetry 11/05/18 11/05/18 12:17 12:33 Temperature 98.1 F Pulse Rate Pulse Rate [ 121 H Anterior Bilateral Throughout] Pulse Rate [ Anterior Bilateral] Pulse Rate [ From Monitor] Respiratory Rate Respiratory 19 Rate [Anterior Bilateral Throughout] Respiratory Rate [Anterior Bilateral] Blood Pressure O2 Sat by Pulse Oximetry - General physical appearance Narrative Exam: Gen: AAOx3. NAD ENT: NGT with light brown gastric drainage CV: S1, S2+ tachy Resp; even and unlabored Abd: soft, NT, ND - Labs 11/05/18 05:30 11/05/18 05:30 Diabetes panel 11/05/18 Range/Units 05:30 Sodium 139 (137-145) mmol/L Potassium 4.0 (3.6-5.0) mmol/L Chloride 107.0 (98-107) mmol/L Carbon Dioxide 21 L (22-30) mmol/L BUN 42 H (7-17) mg/dL Creatinine 0.8 (0.7-1.2) mg/dL Glucose 125 H (65-100) mg/dL Calcium 7.9 L (8.4-10.2) mg/dL Calcium panel 11/05/18 Range/Units 05:30 Calcium 7.9 L (8.4-10.2) mg/dL Phosphorus 3.30 (2.5-4.5) mg/dL Pituitary panel 11/05/18 Range/Units 05:30 Sodium 139 (137-145) mmol/L Potassium 4.0 (3.6-5.0) mmol/L Chloride 107.0 (98-107) mmol/L Carbon Dioxide 21 L (22-30) mmol/L BUN 42 H (7-17) mg/dL Creatinine 0.8 (0.7-1.2) mg/dL Glucose 125 H (65-100) mg/dL Calcium 7.9 L (8.4-10.2) mg/dL Adrenal panel 11/05/18 Range/Units 05:30 Sodium 139 (137-145) mmol/L Potassium 4.0 (3.6-5.0) mmol/L Chloride 107.0 (98-107) mmol/L Carbon Dioxide 21 L (22-30) mmol/L BUN 42 H (7-17) mg/dL Creatinine 0.8 (0.7-1.2) mg/dL Glucose 125 H (65-100) mg/dL Calcium 7.9 L (8.4-10.2) mg/dL
[2018-11-05] MEDS ORDERED: SOLU-Medrol ONE (12:50)
[2018-11-05] MEDS: SOLU-Medrol IV SCH ×2 (13:06→21:32)
[2018-11-05] MEDS ORDERED: ATIVAN IV ONE (13:15)
[2018-11-05] MEDS: PROVENTIL IH PRN (16:35)
[2018-11-05] MEDS ORDERED: TPN ADULT 2,400 ML IV SCH (20:00)
[2018-11-05] MEDS ORDERED: LASIX IV ONE (20:00)
[2018-11-05] MEDS: BROVANA NEBU IH SCH (20:05)
--- NOTE | 2018-11-05 21:25 | Hem/Onc Progress Note ---
Assessment and Plan 1. Thrombocytopenia, likely medication, pts medical status related. platelet count is better. We will observe. 2. History of colon surgery in the past, details not clear. 3. History of bowel issues. Seen by surgical team. - pSBO and contained gastric perforation 4. h/o TPN. 5. Ayla, ID following. 6. Chronic obstructive pulmonary disease. 7. Hypertension. 8. History of lupus. 9. Aspiration pneumonia. 10. The patient was on ventilation. 11. Renal impairment. pt extubated - OSB - pulm following - Patient Problems (1) Thrombocytopenia Current Visit: Yes Status: Acute Subjective Date of service: 11/05/18 Principal diagnosis: low plt Interval history: pt extubated Objective - Constitutional Vitals: Last Vital Signs Temp 98.2 F 11/05/18 16:00 Pulse 110 H 11/05/18 20:23 Resp 26 H 11/05/18 20:23 BP 144/63 11/05/18 19:56 Pulse Ox 97 11/05/18 18:00 General appearance: mild distress (SOB) Performance status: 4-completely disabled - EENT ENT: other (extubated - on o2 support) Lymph node exam: negative cervical - Respiratory Respiratory effort: Positive: labored Respiratory: bilateral: diminished - Cardiovascular Heart Sounds: Present: S1 & S2 Extremities: normal temperature - Gastrointestinal General gastrointestinal: Present: soft, other (s/p sx) Rectal Exam: deferred - Genitourinary Female genitourinary: Present: deferred - Musculoskeletal Musculoskeletal: generalized weakness - Neurologic Neurologic: other (lethargic) - Labs Lab Results: Laboratory Results - last 24 hr 11/04/18 11/05/18 11/05/18 23:42 05:23 05:30 WBC RBC Hgb Hct MCV MCH MCHC RDW Plt Count POC ABG pH POC ABG pCO2 POC ABG pO2 POC ABG HCO3 POC ABG Total CO2 POC ABG O2 Sat POC ABG Base Excess FiO2 Sodium 139 Potassium 4.0 Chloride 107.0 Carbon Dioxide 21 L Anion Gap 15 BUN 42 H Creatinine 0.8 Estimated GFR > 60 BUN/Creatinine Ratio 53 Glucose 125 H POC Glucose 138 H 148 H Calcium 7.9 L Phosphorus 3.30 Magnesium 2.00 11/05/18 11/05/18 11/05/18 05:30 11:46 17:09 WBC 14.2 H RBC 3.12 L Hgb 10.0 L Hct 29.1 L MCV 93 MCH 32 MCHC 34 RDW 14.6 Plt Count 171 POC ABG pH POC ABG pCO2 POC ABG pO2 POC ABG HCO3 POC ABG Total CO2 POC ABG O2 Sat POC ABG Base Excess FiO2 Sodium Potassium Chloride Carbon Dioxide Anion Gap BUN Creatinine Estimated GFR BUN/Creatinine Ratio Glucose POC Glucose 157 H 142 H Calcium Phosphorus Magnesium 11/05/18 20:03 WBC RBC Hgb Hct MCV MCH MCHC RDW Plt Count POC ABG pH 7.379 POC ABG pCO2 36.2 POC ABG pO2 76 L POC ABG HCO3 21.4 POC ABG Total CO2 22 POC ABG O2 Sat 95 POC ABG Base Excess -4 FiO2 40 Sodium Potassium Chloride Carbon Dioxide Anion Gap BUN Creatinine Estimated GFR BUN/Creatinine Ratio Glucose POC Glucose Calcium Phosphorus Magnesium Medications & Allergies - Medications Allergies/Adverse Reactions: Allergies Sulfa (Sulfonamide Antibiotics) Allergy (Intermediate, Verified 10/22/18 16:30) Rash metoclopramide HCl [From Reglan] Allergy (Verified 10/22/18 16:30) Dizziness prochlorperazine [From Compazine] Allergy (Verified 10/22/18 16:30) NECK STIFFNESS Home Medications: Home Medications Medication Instructions Recorded Confirmed Last Taken Type Ondansetron 4 mg PO Q6HR PRN 12/05/16 10/22/18 10/29/17 History Propranolol HCl [Propranolol HCl 60 mg PO DAILY 12/05/16 10/22/18 10/30/17 22:00 History ER] QUEtiapine [SEROquel] 300 mg PO DAILY 12/05/16 10/22/18 10/30/17 History Lasix TAB 40 mg PO PRN PRN 12/07/16 10/22/18 10/24/17 History Percocet 10/325 mg 1 tab PO PRN PRN 12/07/16 10/22/18 10/30/17 History Albuterol Sulfate [Albuterol 0.63% 0.63 mg IH TID PRN 10/22/17 10/22/18 10/29/17 History NEBS] Active Medications: Generic Name Dose Route Start Last Admin Trade Name Freq PRN Reason Stop Dose Admin Acetaminophen 650 mg 10/22/18 20:10 Tylenol PO Q4H PRN Pain MILD(1-3)/Fever >100.5/PORTER Albuterol 2.5 mg 10/22/18 20:14 11/05/18 16:35 Proventil IH 2.5 mg Q4HRT PRN Administration Shortness Of Breath Lipase/Protease/Amylase 1 each 11/05/18 10:13 Gwendolyn Simpson 10,500 Unit FEEDTUBE PRN PRN For Clogged Feeding Tube Arformoterol Tartrate 15 mcg 11/05/18 20:00 11/05/18 20:05 Brovana Nebu IH 15 mcg Q12HRT RICK Administration Budesonide 0.5 mg 10/23/18 08:00 11/05/18 20:05 Pulmicort IH 0.5 mg Q12HRT RICK Administration Dextrose 50 ml 10/26/18 23:40 10/27/18 00:20 D50w (25gm) Syringe IV 50 ml PRN PRN Administration Hypoglycemia Enoxaparin Sodium 40 mg 11/05/18 22:00 Lovenox SUB-Q QDAY@2200 RICK Hydralazine HCl 10 mg 10/22/18 21:41 Apresoline IV Q4HR PRN Blood Pressure Metronidazole 500 mg in 100 mls @ 100 mls/hr 10/30/18 14:00 11/05/18 14:47 Flagyl 500 Mg/100 Ml IV 100 mls/hr Q8HR RICK Administration Protocol Cefepime HCl 2 gm in 100 mls @ 200 mls/hr 10/31/18 22:00 11/05/18 10:35 Maxipime/Ns 2 Gm/100 Ml IV 200 mls/hr Q12HR RICK Administration Protocol Levofloxacin/Dextrose 500 mg in 100 mls @ 100 mls/hr 10/31/18 17:00 11/05/18 10:35 Levaquin 500mg/100ml IV 100 mls/hr Q24HR RICK Administration Protocol Micafungin Sodium 100 mg/ 100 mls @ 100 mls/hr 11/02/18 10:00 11/05/18 10:35 Sodium Chloride IV 100 mls/hr QDAY RICK Administration Protocol Amino Acids/Electrolytes/Dextrose 2,400 mls @ 100 mls/hr 11/05/18 20:00 11/05/18 19:54 Tpn Adult IV 11/06/18 19:59 100 mls/hr DAILY@2000 RICK Administration Protocol Insulin Human Lispro 0 unit 10/29/18 12:00 11/05/18 17:59 Humalog SUB-Q Not Given Q6HR [facility] Protocol Lorazepam 0.5 mg 10/26/18 22:44 10/26/18 23:14 Ativan IV 0.5 mg Q4H PRN Administration Anxiety Methylprednisolone Sodium Succinate 60 mg 11/05/18 14:00 11/05/18 13:06 Solu-Medrol IV 60 mg Q8HR [facility] Administration Metoprolol Tartrate 5 mg 10/31/18 14:00 11/05/18 19:56 Lopressor IV 5 mg TID [facility] Administration Morphine Sulfate 2 mg 10/24/18 13:39 11/05/18 16:23 Morphine IV 2 mg Q4H PRN Administration Pain , Severe (7-10) Ondansetron HCl 4 mg 10/24/18 10:05 10/25/18 17:26 Zofran IV 4 mg Q6H PRN Administration Nausea And Vomiting Oxycodone/Acetaminophen 1 tab 11/05/18 11:16 Percocet 5/325 PO Q6H PRN Pain, Moderate (4-6) Pantoprazole Sodium 40 mg 11/05/18 10:00 11/05/18 10:34 Protonix IV 40 mg DAILY [facility] Administration Phenol 1 spray 10/28/18 10:16 Chloraseptic MM PRN PRN Sore Throat Promethazine HCl 25 mg 10/22/18 20:10 10/22/18 21:21 Phenergan NE 25 mg Q6H PRN Administration Nausea And Vomiting Simple Syrup 15 ml 11/05/18 10:13 Simple Syrup FEEDTUBE PRN PRN Hypoglycemia Simple Syrup 30 ml 11/05/18 10:13 Simple Syrup FEEDTUBE PRN PRN Hypoglycemia Sodium Bicarbonate 325 mg 11/05/18 10:13 Sodium Bicarbonate FEEDTUBE PRN PRN For Clogged Feeding Tube Sodium Chloride 10 ml 10/22/18 22:00 11/05/18 10:36 Sodium Chloride Flush Syringe 10 Ml IV 10 ml BID RICK Administration Sodium Chloride 10 ml 10/22/18 20:10 10/24/18 18:32 Sodium Chloride Flush Syringe 10 Ml IV 10 ml PRN PRN Administration LINE FLUSH
[2018-11-05] MEDS: LOVENOX SUB-Q SCH (21:31)
[2018-11-06] MEDS: HumaLOG SUB-Q SCH ×4 (00:11→17:20)
[2018-11-06 05:45] LABS: BUN/Creatinine Ratio 67; Blood Urea Nitrogen 47 mg/dL (7-17); Calcium 7.8 mg/dL (8.4-10.2); Hemolysis Index 37
[2018-11-06] MEDS: MORPHINE IV PRN (06:11)
[2018-11-06] MEDS: FLAGYL 500 MG/100 ML 500 MG/100 ML BAG IV SCH (06:12)
[2018-11-06] MEDS: SOLU-Medrol IV SCH ×3 (06:12→21:31)
[2018-11-06] MEDS ORDERED: MORPHINE IV PRN (06:21)
[2018-11-06] MEDS: PULMICORT IH SCH ×2 (07:20→19:11)
[2018-11-06] MEDS: BROVANA NEBU IH SCH ×2 (07:20→19:11)
--- NOTE | 2018-11-06 07:28 | Event Note ---
Date: 11/06/18
--- NOTE | 2018-11-06 07:50 | Hem/Onc Progress Note ---
Assessment and Plan 1. h/o Thrombocytopenia, likely medication, pts medical status related. platelet count is better. We will observe. 2. History of colon surgery in the past, details not clear. 3. History of bowel issues. Seen by surgical team. - pSBO and contained gastric perforation 4. h/o TPN. 5. Ayla, ID following. 6. Chronic obstructive pulmonary disease. 7. Hypertension. 8. History of lupus. 9. Aspiration pneumonia. 10. The patient was on ventilation. 11. Renal impairment. pt extubated - slight SOB - pulm following plt normalized - Patient Problems (1) Thrombocytopenia Current Visit: Yes Status: Acute Subjective Date of service: 11/06/18 Principal diagnosis: low plt Interval history: breathing better - but still some SOB - on o2 Objective - Constitutional Vitals: Last Vital Signs Temp 97.9 F 11/06/18 07:43 Pulse 108 H 11/06/18 07:22 Resp 20 11/06/18 07:22 BP 153/69 11/06/18 06:30 Pulse Ox 95 11/06/18 06:30 Pain Intensity (0-10): denies any pain General appearance: mild distress (on o2) Performance status: 4-completely disabled - EENT Eyes: EOM intact ENT: hearing intact, other (on o2) Lymph node exam: negative cervical - Neck Neck: supple - Respiratory Respiratory: bilateral: diminished - Cardiovascular Heart Sounds: Present: S1 & S2 Extremities: No edema - Gastrointestinal General gastrointestinal: Present: soft, other (s/p sx) Rectal Exam: deferred - Genitourinary Female genitourinary: Present: deferred - Integumentary Integumentary: warm - Musculoskeletal Musculoskeletal: generalized weakness - Neurologic Neurologic: moves all extremities - Labs Lab Results: Laboratory Results - last 24 hr 11/05/18 11/05/18 11/05/18 11:46 17:09 20:03 POC ABG pH 7.379 POC ABG pCO2 36.2 POC ABG pO2 76 L POC ABG HCO3 21.4 POC ABG Total CO2 22 POC ABG O2 Sat 95 POC ABG Base Excess -4 FiO2 40 Sodium Potassium Chloride Carbon Dioxide Anion Gap BUN Creatinine Estimated GFR BUN/Creatinine Ratio Glucose POC Glucose 157 H 142 H Calcium Phosphorus Magnesium 11/05/18 11/06/18 23:43 04:21 POC ABG pH POC ABG pCO2 POC ABG pO2 POC ABG HCO3 POC ABG Total CO2 POC ABG O2 Sat POC ABG Base Excess FiO2 Sodium 133 L Potassium 5.0 D Chloride 100.5 Carbon Dioxide 18 L Anion Gap 20 BUN 47 H Creatinine 0.7 Estimated GFR > 60 BUN/Creatinine Ratio 67 Glucose 187 H POC Glucose 204 H Calcium 7.8 L Phosphorus 5.30 H D Magnesium 2.50 H Medications & Allergies - Medications Allergies/Adverse Reactions: Allergies Sulfa (Sulfonamide Antibiotics) Allergy (Intermediate, Verified 10/22/18 16:30) Rash metoclopramide HCl [From Reglan] Allergy (Verified 10/22/18 16:30) Dizziness prochlorperazine [From Compazine] Allergy (Verified 10/22/18 16:30) NECK STIFFNESS Home Medications: Home Medications Medication Instructions Recorded Confirmed Last Taken Type Ondansetron 4 mg PO Q6HR PRN 12/05/16 10/22/18 10/29/17 History Propranolol HCl [Propranolol HCl 60 mg PO DAILY 12/05/16 10/22/18 10/30/17 22:00 History ER] QUEtiapine [SEROquel] 300 mg PO DAILY 12/05/16 10/22/18 10/30/17 History Lasix TAB 40 mg PO PRN PRN 12/07/16 10/22/18 10/24/17 History Percocet 10/325 mg 1 tab PO PRN PRN 12/07/16 10/22/18 10/30/17 History Albuterol Sulfate [Albuterol 0.63% 0.63 mg IH TID PRN 10/22/17 10/22/18 10/29/17 History NEBS] Active Medications: Generic Name Dose Route Start Last Admin Trade Name Freq PRN Reason Stop Dose Admin Acetaminophen 650 mg 10/22/18 20:10 Tylenol PO Q4H PRN Pain MILD(1-3)/Fever >100.5/PORTER Albuterol 2.5 mg 10/22/18 20:14 11/05/18 16:35 Proventil IH 2.5 mg Q4HRT PRN Administration Shortness Of Breath Lipase/Protease/Amylase 1 each 11/05/18 10:13 Pancremaranda Simpson 10,500 Unit FEEDTUBE PRN PRN For Clogged Feeding Tube Arformoterol Tartrate 15 mcg 11/05/18 20:00 11/06/18 07:20 Brovana Nebu IH 15 mcg Q12HRT RICK Administration Budesonide 0.5 mg 10/23/18 08:00 11/06/18 07:20 Pulmicort IH 0.5 mg Q12HRT RICK Administration Dextrose 50 ml 10/26/18 23:40 10/27/18 00:20 D50w (25gm) Syringe IV 50 ml PRN PRN Administration Hypoglycemia Enoxaparin Sodium 40 mg 11/05/18 22:00 11/05/18 21:31 Lovenox SUB-Q 40 mg QDAY@2200 RICK Administration Hydralazine HCl 10 mg 10/22/18 21:41 Apresoline IV Q4HR PRN Blood Pressure Metronidazole 500 mg in 100 mls @ 100 mls/hr 10/30/18 14:00 11/06/18 06:12 Flagyl 500 Mg/100 Ml IV 100 mls/hr Q8HR RICK Administration Protocol Cefepime HCl 2 gm in 100 mls @ 200 mls/hr 10/31/18 22:00 11/05/18 21:32 Maxipime/Ns 2 Gm/100 Ml IV 200 mls/hr Q12HR RICK Administration Protocol Levofloxacin/Dextrose 500 mg in 100 mls @ 100 mls/hr 10/31/18 17:00 11/05/18 10:35 Levaquin 500mg/100ml IV 100 mls/hr Q24HR RICK Administration Protocol Micafungin Sodium 100 mg/ 100 mls @ 100 mls/hr 11/02/18 10:00 11/05/18 10:35 Sodium Chloride IV 100 mls/hr QDAY RICK Administration Protocol Amino Acids/Electrolytes/Dextrose 2,400 mls @ 100 mls/hr 11/05/18 20:00 11/05/18 19:54 Tpn Adult IV 11/06/18 19:59 100 mls/hr DAILY@2000 RICK Administration Protocol Insulin Human Lispro 0 unit 10/29/18 12:00 11/06/18 06:19 Humalog SUB-Q 2 unit Q6HR RICK Administration Protocol Lorazepam 0.5 mg 10/26/18 22:44 10/26/18 23:14 Ativan IV 0.5 mg Q4H PRN Administration Anxiety Methylprednisolone Sodium Succinate 60 mg 11/05/18 14:00 11/06/18 06:12 Solu-Medrol IV 60 mg Q8HR RICK Administration Metoprolol Tartrate 5 mg 10/31/18 14:00 11/05/18 19:56 Lopressor IV 5 mg TID RICK Administration Morphine Sulfate 1 mg 11/06/18 06:21 Morphine IV Q4H PRN Pain, Moderate (4-6) Ondansetron HCl 4 mg 10/24/18 10:05 10/25/18 17:26 Zofran IV 4 mg Q6H PRN Administration Nausea And Vomiting Oxycodone/Acetaminophen 1 tab 11/05/18 11:16 Percocet 5/325 PO Q6H PRN Pain, Moderate (4-6) Pantoprazole Sodium 40 mg 11/05/18 10:00 11/05/18 10:34 Protonix IV 40 mg DAILY RICK Administration Phenol 1 spray 10/28/18 10:16 Chloraseptic MM PRN PRN Sore Throat Promethazine HCl 25 mg 10/22/18 20:10 10/22/18 21:21 Phenergan [place] 25 mg Q6H PRN Administration Nausea And Vomiting Simple Syrup 15 ml 11/05/18 10:13 Simple Syrup FEEDTUBE PRN PRN Hypoglycemia Simple Syrup 30 ml 11/05/18 10:13 Simple Syrup FEEDTUBE PRN PRN Hypoglycemia Sodium Bicarbonate 325 mg 11/05/18 10:13 Sodium Bicarbonate FEEDTUBE PRN PRN For Clogged Feeding Tube Sodium Chloride 10 ml 10/22/18 22:00 11/05/18 21:32 Sodium Chloride Flush Syringe 10 Ml IV 10 ml BID RICK Administration Sodium Chloride 10 ml 10/22/18 20:10 10/24/18 18:32 Sodium Chloride Flush Syringe 10 Ml IV 10 ml PRN PRN Administration LINE FLUSH
--- NOTE | 2018-11-06 08:24 | Progress Note ---
Assessment and Plan Assessment and plan: Patient is 73-year-old female with history of hypertension, lupus, fibromyalgia, COPD, opioid dependence (follows Dr. Felix Muñiz at pain clinic) who presented to [facility] ED with complaints of intractable nausea, vomiting, diarrhea for 3 days. On initial presentation to the ED she was found to be tachycardiac with heart rate 113 BPM, leukocytosis with WBC 11.5, elevated BUN/Cr 51/2.1. Patient has history of COPD and at baseline does not require home oxygen use. She was admitted to [facility]. GI was consulted, she was evaluated. CT Abdomen revealed partial SBO versus ileus therefore surgeon consulted. Also patient became more short of breath, placed on BIPAP with no improvement then intubated 10/26/18 for acute resp failure and transferred to ICU. Obstruction series completed on 10/27 which showed improved but small bowel and stomach dilatation. Follow-up series on 10/28 showed no significant change since previous study. NG tube was removed due to patient not tolerating/refusing. Patient was placed back on BiPAP but decompensated on the night of 10/28/18 and had to be reintubated. Patient currently on mechanical ventilation. Patient has had further complications now with findings consistent with contained gastric perforation on repeat CT scan 10/30. Also, patient has cultures that were positive and consistent with fungemia. Gastric perforation. Repeat CT scan on 10/30 revealed pSBO resolved, no evidence for bowel ischemia. Small contained gastric perforation at lesser curve. No gross free air or contrast extravasation. Surgery recommends conservative management with continuing NGT, NPO, gentle IVF and when necessary pain control. Will reimage stomach when pulm status is more stable to make sure there is no leak. Sepsis/fungemia. Continue antibiotics/antifungals and follow cultures. ID following. May need to switch off PICC to other access, hold IV nutrition ? Thrombocytopenia. Etiology likely secondary to sepsis. Hematology following. Bilateral upper lobe/aspiration pneumonia. Sputum culture positive for Escherichia coli and stenotrophomonas. Continue antibiotics per ID. Partial small bowel obstruction. Continue NGT per surgery. Acute exacerbation COPD. Scheduled Duo Nebs and Pulmicort; albuterol when necessary Acute hypoxic respiratory failure. Patient was reintubated on 10/28/18 and currently on mechanical ventilation. Etiology secondary to COPD/pneumonia/sepsis. Extubated 11/05 Hypokalemia. Replete potassium. Hyponatremia. Repeat in am Hypertension. IV hydralazine when necessary Lupus. Supportive care Fibromyalgia. supportive care History of opioid dependence ADWOA due to vasomotor nephropathy, now resolved Full code status The high probability of a clinically significant, sudden or life threatening deterioration of the [GI and respiratory] system(s) required my full and direct attention, intervention and personal management. The aggregate critical care time was [33] minutes. This time is in addition to time spent performing reported procedures but includes the following: [x] Data Review and interpretation [x] Patient assessment and monitoring of vital signs [x] Documentation [x] Medication orders and management History Interval history: Extubated yesterday, Now on high flow Oxygen no fever Hospitalist Physical - Physical exam Narrative exam: Gen: Not in acute distress, lying in bed, on high flow Oxygen NC HEENT: Normocephalic, atraumatic, NG tube Neck: supple, no JVD Heart: S1 and S2 reg, no murmurs, rubs or gallop Lungs: Clear bilat, decreased breath sounds bilat. no wheeze Abd: soft, mild tender, no rebound tenderness, non distended, BS present Ext: No edema, no clubbing, no cyanosis, Neuro: Extubated, Awake,moves all ext, non focal - Constitutional Vitals: Temp Pulse Resp BP Pulse Ox 97.9 F 108 H 20 153/69 95 11/06/18 07:43 11/06/18 07:22 11/06/18 07:22 11/06/18 06:30 11/06/18 07:49 General appearance: Present: other (intubated, opens eyes to commands) Results - Labs CBC & Chem 7: 11/05/18 05:30 11/06/18 04:21 Labs: Laboratory Last Values WBC 14.2 K/mm3 (4.5-11.0) H 11/05/18 05:30 RBC 3.12 M/mm3 (3.65-5.03) L 11/05/18 05:30 Hgb 10.0 gm/dl (10.1-14.3) L 11/05/18 05:30 Hct 29.1 % (30.3-42.9) L 11/05/18 05:30 MCV 93 fl (79-97) 11/05/18 05:30 MCH 32 pg (28-32) 11/05/18 05:30 MCHC 34 % (30-34) 11/05/18 05:30 RDW 14.6 % (13.2-15.2) 11/05/18 05:30 Plt Count 171 K/mm3 (140-440) 11/05/18 05:30 Lymph % (Auto) 10.2 % (13.4-35.0) L 10/23/18 04:32 [place] % (Auto) 14.7 % (0.0-7.3) H 10/23/18 04:32 Eos % (Auto) 0.1 % (0.0-4.3) 10/23/18 04:32 Baso % (Auto) 0.1 % (0.0-1.8) 10/23/18 04:32 Lymph # 0.7 K/mm3 (1.2-5.4) L 10/23/18 04:32 [place] # 1.0 K/mm3 (0.0-0.8) H 10/23/18 04:32 Eos # 0.0 K/mm3 (0.0-0.4) 10/23/18 04:32 Baso # 0.0 K/mm3 (0.0-0.1) 10/23/18 04:32 Add Manual Diff Complete 11/04/18 09:39 Total Counted 100 11/04/18 09:39 Seg Neutrophils % Clinical Nurse Leader 11/04/18 09:39 Seg Neuts % (Manual) 98.0 % (40.0-70.0) H 11/04/18 09:39 0 % 11/04/18 09:39 1.0 % (13.4-35.0) L 11/04/18 09:39 Reactive Lymphs % (Man) 0 % 11/04/18 09:39 0 % (0.0-7.3) 11/04/18 09:39 1.0 % (0.0-4.3) 11/04/18 09:39 0 % (0.0-1.8) 11/04/18 09:39 0 % 11/04/18 09:39 0 % 11/04/18 09:39 0 % 11/04/18 09:39 0 % 11/04/18 09:39 Nucleated RBC % Not Reportable 11/04/18 09:39 Seg Neutrophils # 5.2 K/mm3 (1.8-7.7) 10/23/18 04:32 Seg Neutrophils # Man 14.9 K/mm3 (1.8-7.7) H 11/04/18 09:39 Band Neutrophils # 0.0 K/mm3 11/04/18 09:39 0.2 K/mm3 (1.2-5.4) L 11/04/18 09:39 Abs React Lymphs (Man) 0.0 K/mm3 11/04/18 09:39 0.0 K/mm3 (0.0-0.8) 11/04/18 09:39 0.2 K/mm3 (0.0-0.4) 11/04/18 09:39 0.0 K/mm3 (0.0-0.1) 11/04/18 09:39 0.0 K/mm3 11/04/18 09:39 0.0 K/mm3 11/04/18 09:39 0.0 K/mm3 11/04/18 09:39 Blast Cells # 0.0 K/mm3 11/04/18 09:39 WBC Morphology Not Reportable 11/04/18 09:39 Hypersegmented Neuts Not Reportable 11/04/18 09:39 Hyposegmented Neuts Not Reportable 11/04/18 09:39 Hypogranular Neuts Not Reportable 11/04/18 09:39 Not Reportable 11/04/18 09:39 Not Reportable 11/04/18 09:39 Not Reportable 11/04/18 09:39 Not Reportable 11/04/18 09:39 Not Reportable 11/04/18 09:39 Not Reportable 11/04/18 09:39 Consistent w auto 11/04/18 09:39 Not Reportable 11/04/18 09:39 Plt Clumps, EDTA Not Reportable 11/04/18 09:39 Not Reportable 11/04/18 09:39 Not Reportable 11/04/18 09:39 Not Reportable 11/04/18 09:39 Plt Morphology Comment Not Reportable 11/04/18 09:39 RBC Morphology Normal 11/04/18 09:39 Dimorphic RBCs Not Reportable 11/04/18 09:39 Not Reportable 11/04/18 09:39 Not Reportable 11/04/18 09:39 Not Reportable 11/04/18 09:39 Not Reportable 11/04/18 09:39 Not Reportable 11/04/18 09:39 Not Reportable 11/04/18 09:39 Not Reportable 11/04/18 09:39 Not Reportable 11/04/18 09:39 Not Reportable 11/04/18 09:39 Not Reportable 11/04/18 09:39 Not Reportable 11/04/18 09:39 Not Reportable 11/04/18 09:39 Not Reportable 11/04/18 09:39 Not Reportable 11/04/18 09:39 Not Reportable 11/04/18 09:39 Not Reportable 11/04/18 09:39 Not Reportable 11/04/18 09:39 Not Reportable 11/04/18 09:39 Not Reportable 11/04/18 09:39 Acanthocytes (Spur) Not Reportable 11/04/18 09:39 Rouleaux Not Reportable 11/04/18 09:39 Not Reportable 11/04/18 09:39 Not Reportable 11/04/18 09:39 Not Reportable 11/04/18 09:39 Not Reportable 11/04/18 09:39 Hem Pathologist Commnt No 11/04/18 09:39 Heparin Anti-Xa, Unfract Negative (Negative) 10/30/18 13:58 POC ABG pH 7.379 (7.35-7.45) 11/05/18 20:03 POC ABG pCO2 36.2 (35-45) 11/05/18 20:03 POC ABG pO2 76 (80-105) L 11/05/18 20:03 POC ABG HCO3 21.4 (22-26 mml/L) 11/05/18 20:03 POC ABG Total CO2 22 (23-27mmol/L) 11/05/18 20:03 POC ABG O2 Sat 95 11/05/18 20:03 POC ABG Base Excess -4 ((-2) - (+3)mmol/L) 11/05/18 20:03 40 % 11/05/18 20:03 Sodium 133 mmol/L (137-145) L 11/06/18 04:21 Potassium 5.0 mmol/L (3.6-5.0) D 11/06/18 04:21 Chloride 100.5 mmol/L (98-107) 11/06/18 04:21 Carbon Dioxide 18 mmol/L (22-30) L 11/06/18 04:21 20 mmol/L 11/06/18 04:21 BUN 47 mg/dL (7-17) H 11/06/18 04:21 0.7 mg/dL (0.7-1.2) 11/06/18 04:21 Estimated GFR > 60 ml/min 11/06/18 04:21 67 % 11/06/18 04:21 Glucose 187 mg/dL (65-100) H 11/06/18 04:21 POC Glucose 204 (70-105) H 11/05/18 23:43 Lactic Acid 1.60 mmol/L (0.7-2.0) 10/26/18 15:03 Calcium 7.8 mg/dL (8.4-10.2) L 11/06/18 04:21 Phosphorus 5.30 mg/dL (2.5-4.5) H D 11/06/18 04:21 Magnesium 2.50 mg/dL (1.7-2.3) H 11/06/18 04:21 0.30 mg/dL (0.1-1.2) 11/03/18 11:30 AST 14 units/L (5-40) 11/03/18 11:30 ALT 17 units/L (7-56) 11/03/18 11:30 51 units/L (35-129) 11/03/18 11:30 4.2 g/dL (6.3-8.2) L 11/03/18 11:30 1.2 g/dL (3.9-5) L 11/03/18 11:30 0.4 % 11/03/18 11:30 Triglycerides 132 mg/dL (2-149) 11/01/18 06:40 10 units/L (13-60) L 10/22/18 15:54 See scanned result 10/30/18 13:58 TSH 3.150 mlU/mL (0.270-4.200) 10/31/18 17:00 Free T4 0.49 ng/dL (0.76-1.46) L 10/31/18 17:00 Dulce (Yellow) 10/22/18 19:10 Clear (Clear) 10/22/18 19:10 5.0 (5.0-7.0) 10/22/18 19:10 Ur Specific [place] 1.018 (1.003-1.030) 10/22/18 19:10 30 mg/dl mg/dL (Negative) 10/22/18 19:10 Neg mg/dL (Negative) 10/22/18 19:10 Tr mg/dL (Negative) 10/22/18 19:10 Neg (Negative) 10/22/18 19:10 Neg (Negative) 10/22/18 19:10 Neg (Negative) 10/22/18 19:10 < 2.0 mg/dL (<2.0) 10/22/18 19:10 Ur Leukocyte Esterase Neg (Negative) 10/22/18 19:10 1.0 /HPF (0.0-6.0) 10/22/18 19:10 3.0 /HPF (0.0-6.0) 10/22/18 19:10 Heparin-induced Plt Ab Negative (Negative) 10/30/18 13:58 UF Heparin High Dose 0 % Release 10/30/18 13:58 KIMO UFH Low Dose 0.1 0 % Release 10/30/18 13:58 KIMO UFH Low Dose 0.5 0 % Release 10/30/18 13:58 Active Medications - Current Medications Current Medications: Generic Name Dose Route Start Last Admin Trade Name Freq PRN Reason Stop Dose Admin Acetaminophen 650 mg 10/22/18 20:10 Tylenol PO Q4H PRN Pain MILD(1-3)/Fever >100.5/PORTER Albuterol 2.5 mg 10/22/18 20:14 11/05/18 16:35 Proventil IH 2.5 mg Q4HRT PRN Administration Shortness Of Breath Lipase/Protease/Amylase 1 each 11/05/18 10:13 Pancremaranda Simpson 10,500 Unit FEEDTUBE PRN PRN For Clogged Feeding Tube Arformoterol Tartrate 15 mcg 11/05/18 20:00 11/06/18 07:20 Brovana Nebu IH 15 mcg Q12HRT RICK Administration Budesonide 0.5 mg 10/23/18 08:00 11/06/18 07:20 Pulmicort IH 0.5 mg Q12HRT RICK Administration Dextrose 50 ml 10/26/18 23:40 10/27/18 00:20 D50w (25gm) Syringe IV 50 ml PRN PRN Administration Hypoglycemia Enoxaparin Sodium 40 mg 11/05/18 22:00 11/05/18 21:31 Lovenox SUB-Q 40 mg QDAY@2200 RICK Administration Hydralazine HCl 10 mg 10/22/18 21:41 Apresoline IV Q4HR PRN Blood Pressure Metronidazole 500 mg in 100 mls @ 100 mls/hr 10/30/18 14:00 11/06/18 06:12 Flagyl 500 Mg/100 Ml IV 100 mls/hr Q8HR RICK Administration Protocol Cefepime HCl 2 gm in 100 mls @ 200 mls/hr 10/31/18 22:00 11/05/18 21:32 Maxipime/Ns 2 Gm/100 Ml IV 200 mls/hr Q12HR RICK Administration Protocol Levofloxacin/Dextrose 500 mg in 100 mls @ 100 mls/hr 10/31/18 17:00 11/05/18 10:35 Levaquin 500mg/100ml IV 100 mls/hr Q24HR RICK Administration Protocol Micafungin Sodium 100 mg/ 100 mls @ 100 mls/hr 11/02/18 10:00 11/05/18 10:35 Sodium Chloride IV 100 mls/hr QDAY RICK Administration Protocol Amino Acids/Electrolytes/Dextrose 2,400 mls @ 100 mls/hr 11/05/18 20:00 11/05/18 19:54 Tpn Adult IV 11/06/18 19:59 100 mls/hr DAILY@2000 RICK Administration Protocol Insulin Human Lispro 0 unit 10/29/18 12:00 11/06/18 06:19 Humalog SUB-Q 2 unit Q6HR RICK Administration Protocol Lorazepam 0.5 mg 10/26/18 22:44 10/26/18 23:14 Ativan IV 0.5 mg Q4H PRN Administration Anxiety Methylprednisolone Sodium Succinate 60 mg 11/05/18 14:00 11/06/18 06:12 Solu-Medrol IV 60 mg Q8HR RICK Administration Metoprolol Tartrate 5 mg 10/31/18 14:00 11/05/18 19:56 Lopressor IV 5 mg TID RICK Administration Morphine Sulfate 1 mg 11/06/18 06:21 Morphine IV Q4H PRN Pain, Moderate (4-6) Ondansetron HCl 4 mg 10/24/18 10:05 10/25/18 17:26 Zofran IV 4 mg Q6H PRN Administration Nausea And Vomiting Oxycodone/Acetaminophen 1 tab 11/05/18 11:16 Percocet 5/325 PO Q6H PRN Pain, Moderate (4-6) Pantoprazole Sodium 40 mg 11/05/18 10:00 11/05/18 10:34 Protonix IV 40 mg DAILY RICK Administration Phenol 1 spray 10/28/18 10:16 Chloraseptic MM PRN PRN Sore Throat Promethazine HCl 25 mg 10/22/18 20:10 10/22/18 21:21 Phenergan ND 25 mg Q6H PRN Administration Nausea And Vomiting Simple Syrup 15 ml 11/05/18 10:13 Simple Syrup FEEDTUBE PRN PRN Hypoglycemia Simple Syrup 30 ml 11/05/18 10:13 Simple Syrup FEEDTUBE PRN PRN Hypoglycemia Sodium Bicarbonate 325 mg 11/05/18 10:13 Sodium Bicarbonate FEEDTUBE PRN PRN For Clogged Feeding Tube Sodium Chloride 10 ml 10/22/18 22:00 11/05/18 21:32 Sodium Chloride Flush Syringe 10 Ml IV 10 ml BID RICK Administration Sodium Chloride 10 ml 10/22/18 20:10 10/24/18 18:32 Sodium Chloride Flush Syringe 10 Ml IV 10 ml PRN PRN Administration LINE FLUSH Nutrition/Malnutrition Assess - Dietary Evaluation Nutrition/Malnutrition Findings: Nutrition Notes Start: 10/23/18 17:03 Freq: Status: Active Protocol: Document 11/05/18 13:14 LP (Rec: 11/05/18 13:22 LP [id number]) Nutrition Notes Initial or Follow up Reassessment Current Diagnosis COPD,Sepsis,Hypertension Other Pertinent Diagnosis Gastric peforation, partial SBO, lupus, opiod dependence, SIRS Current Diet PPN at 100 ml/hr Labs/Tests Reviewed Pertinent Medications Reviewed Height 5 ft 3 in Weight 68 kg [place] Body Weight (kg) 52.27 BMI 26.5 Subjective/Other Information Pt continues on PPN. MD would like to start trophic feeds. Pt extubated. Percent of energy/protein needs met: 48%/100% Burn Absent Trauma Absent #1 Nutrition Diagnosis Inadequate oral intake Diagnosis Progress(for reassessment Continues documentation) Is patient on ventilator? No Is Patient Ambulatory and/or Out of Bed No REE-([facility]-confined to bed) 1397.052 Kcal/Kg value to use for calculation 25 Approximate Energy Requirements Using 1700 kcal/Kg Calculation Used for Recommendations Kcal/kg Additional Notes Protein needs are 58-96g (1.2- 2g/kg) Fluid needs are 1ml/kcal Nutrition Intervention Change Diet Order: PPN and TF Nutrition Support: PPN at 100 ml/hr: 3.3% amino acid Osmolality:793 TF Vital 1.2 at 10ml/hr and continue Flush with 50ml q12h Kcal 728 Protein (gm) 80 Carbohydrates (gm) 120 Fat (gm) 0 Fluid (mL) 2,400 Fiber (gm) 0 Goal #1 Meet kcal and protein needs as best as possible Goal #2 Tolerate trophic feeds Anticipated Discharge Needs: Unable to determine at this time Follow-Up By: 11/06/18 Additional Comments Labs in AM: BMP, Mg, Phos Follow for TF tolerance
[2018-11-06] MEDS: LOPRESSOR IV SCH ×3 (08:58→20:00)
[2018-11-06] MEDS: PROTONIX IV SCH (09:32)
[2018-11-06] MEDS: LEVAQUIN 500MG/100ML 500 MG/100 ML BAG IV SCH (09:33)
[2018-11-06] MEDS: MAXIPIME/NS 2 GM/100 ML 2 GM/100 ML BAG IV SCH (09:36)
[2018-11-06] MEDS: MYCAMINE 100 MG in NACL 0.9% 100 ML IV SCH (09:54)
[2018-11-06] MEDS: SODIUM CHLORIDE FLUSH SYRINGE 10 ML IV SCH ×2 (09:54→21:31)
[2018-11-06] MEDS: ATIVAN IV PRN ×3 (09:58→22:10)
[2018-11-06] MEDS ORDERED: ATIVAN IV ONE (10:45)
--- NOTE | 2018-11-06 10:50 | Progress Note ---
Assessment and Plan Cont present cardiac management. The patient has been seen in conjunction with Dr. Mas who agrees with the assessment and plan of care. - Patient Problems (1) Atrial tachycardia, paroxysmal Current Visit: Yes Status: Acute (2) Tachy-adama syndrome Current Visit: Yes Status: Acute (3) Acute respiratory failure Current Visit: Yes Status: Acute (4) Perforated gastric ulcer Current Visit: Yes Status: Acute (5) Intractable nausea and vomiting Current Visit: Yes Status: Acute (6) Partial small bowel obstruction Current Visit: Yes Status: Acute (7) COPD (chronic obstructive pulmonary disease) Current Visit: Yes Status: Chronic (8) History of hypertension Current Visit: Yes Status: Chronic (9) ADWOA (acute kidney injury) Current Visit: Yes Status: Acute (10) Hypokalemia Current Visit: Yes Status: Acute Subjective Date of service: 11/06/18 Principal diagnosis: low plt Interval history: pt extubated, alert, in SR/ST on tele. Objective Last Vital Signs Temp 97.9 F 11/06/18 07:43 Pulse 118 H 11/06/18 08:58 Resp 20 11/06/18 07:22 BP 154/56 11/06/18 08:58 Pulse Ox 95 11/06/18 07:49 - Physical Examination General: No Apparent Distress HEENT: Positive: PERRL Neck: Positive: neck supple, trachea midline Cardiac: Positive: Regular Rhythm, S1/S2 Lungs: Positive: Decreased Breath Sounds Neuro: Positive: Grossly Intact Skin: Negative: Rash Musculoskeletal: No Pain Extremities: Absent: edema - Labs and Meds Comprehensive Metabolic Panel 11/06/18 Range/Units 04:21 Sodium 133 L (137-145) mmol/L Potassium 5.0 D (3.6-5.0) mmol/L Chloride 100.5 (98-107) mmol/L Carbon Dioxide 18 L (22-30) mmol/L BUN 47 H (7-17) mg/dL Creatinine 0.7 (0.7-1.2) mg/dL Glucose 187 H (65-100) mg/dL Calcium 7.8 L (8.4-10.2) mg/dL - Imaging and Cardiology EKG: report reviewed, image reviewed Echo: report reviewed (EF 50%, trace TR, minimal pericardial effusion. ) - EKG Sinus rhythms and dysrhythmias: sinus rhythm - Allied health notes Allied health notes reviewed: nursing
--- NOTE | 2018-11-06 11:09 | Progress Note ---
Assessment and Plan - Patient Problems (1) Partial small bowel obstruction Current Visit: Yes Status: Acute Plan to address problem: 73 yo F with 1. pSBO - resolved 2. contained gastric perforation 3. VDRF 4. aspiration PNA 5. sepsis 6. Fungemia in blood Obstruction series 10/27 - improved small bowel and stomach dilatation. Obstructions series 10/28 - no significant change since previous study. NGT has been removed Obstruction series 10/29 - relatively normal bowel gas pattern. NGT in place Ct scan A/P from admission reviewed with Dr. Garces - pSBO. Mesenteric vessels patent. Ct scan C/A/P 10/30 - Images reviewed with Dr. Garces - pSBO resolved, no evidence for bowel ischemia. Small contained gastric perforation at lesser curve. No gross free air or contrast extrav. Ansarca. Bilateral pleural effusions. Bilateral upper lobes infiltrates. Ct scan A/p 11/04 - No extravasation of contrast from stomach Plan: 1. NPO 2. ok to start trickle TF, will slowly advance until patient can tolerate PO diet. Discussed with Dr. Ni 3. speech therapy eval 4. TPN - continue until patient on PO diet 5. prn pain control 6. DVT ppx 7. IS/pulm toilet 8. c/w abx per ID 9. PPI daily Discussed plan with at bedside Thank you, please call with questions. Subjective Date of service: 11/06/18 Patient Reports: Positive: no new complaints, flatus, bowel movement, other (staff reports that tube feeds not started due to concerns about possible need for intubation yesterday) Objective Vital Signs - 12hr 11/05/18 11/06/18 11/06/18 23:30 00:00 00:30 Temperature 99.0 F Pulse Rate 106 H 101 H 117 H Pulse Rate [ Anterior Bilateral Throughout] Pulse Rate [ Anterior Bilateral] Respiratory 24 26 H 29 H Rate Respiratory Rate [Anterior Bilateral Throughout] Respiratory Rate [Anterior Bilateral] Blood Pressure 131/67 146/62 155/65 O2 Sat by Pulse 97 96 97 Oximetry 11/06/18 11/06/18 11/06/18 01:01 01:31 02:01 Temperature Pulse Rate 115 H 109 H 120 H Pulse Rate [ Anterior Bilateral Throughout] Pulse Rate [ Anterior Bilateral] Respiratory 27 H 24 26 H Rate Respiratory Rate [Anterior Bilateral Throughout] Respiratory Rate [Anterior Bilateral] Blood Pressure 157/58 143/61 152/66 O2 Sat by Pulse 97 97 95 Oximetry 11/06/18 11/06/18 11/06/18 02:31 03:00 03:31 Temperature Pulse Rate 100 H 121 H 101 H Pulse Rate [ Anterior Bilateral Throughout] Pulse Rate [ Anterior Bilateral] Respiratory 26 H 28 H 27 H Rate Respiratory Rate [Anterior Bilateral Throughout] Respiratory Rate [Anterior Bilateral] Blood Pressure 142/60 152/65 149/60 O2 Sat by Pulse 94 95 96 Oximetry 11/06/18 11/06/18 11/06/18 04:00 04:31 05:00 Temperature 98.9 F Pulse Rate 121 H 119 H 121 H Pulse Rate [ Anterior Bilateral Throughout] Pulse Rate [ Anterior Bilateral] Respiratory 25 H 29 H 25 H Rate Respiratory Rate [Anterior Bilateral Throughout] Respiratory Rate [Anterior Bilateral] Blood Pressure 167/73 141/63 150/71 O2 Sat by Pulse 96 96 95 Oximetry 11/06/18 11/06/18 11/06/18 05:30 06:00 06:30 Temperature Pulse Rate 120 H 116 H 116 H Pulse Rate [ Anterior Bilateral Throughout] Pulse Rate [ Anterior Bilateral] Respiratory 27 H 28 H 29 H Rate Respiratory Rate [Anterior Bilateral Throughout] Respiratory Rate [Anterior Bilateral] Blood Pressure 159/64 156/69 153/69 O2 Sat by Pulse 95 95 95 Oximetry 11/06/18 11/06/18 11/06/18 07:22 07:43 07:49 Temperature 97.9 F Pulse Rate Pulse Rate [ 114 H Anterior Bilateral Throughout] Pulse Rate [ 108 H Anterior Bilateral] Respiratory Rate Respiratory 20 Rate [Anterior Bilateral Throughout] Respiratory 20 Rate [Anterior Bilateral] Blood Pressure O2 Sat by Pulse 95 Oximetry 11/06/18 08:58 Temperature Pulse Rate 118 H Pulse Rate [ Anterior Bilateral Throughout] Pulse Rate [ Anterior Bilateral] Respiratory Rate Respiratory Rate [Anterior Bilateral Throughout] Respiratory Rate [Anterior Bilateral] Blood Pressure 154/56 O2 Sat by Pulse Oximetry - General physical appearance no distress, no pain - Respiratory normal expansion, other (slight increased work of breathing) - Abdomen soft, not tender, not distended - Integumentary no rash, no growths, no abnormal pigmentation - Labs 11/05/18 05:30 11/06/18 04:21 Diabetes panel 11/06/18 Range/Units 04:21 Sodium 133 L (137-145) mmol/L Potassium 5.0 D (3.6-5.0) mmol/L Chloride 100.5 (98-107) mmol/L Carbon Dioxide 18 L (22-30) mmol/L BUN 47 H (7-17) mg/dL Creatinine 0.7 (0.7-1.2) mg/dL Glucose 187 H (65-100) mg/dL Calcium 7.8 L (8.4-10.2) mg/dL Calcium panel 11/06/18 Range/Units 04:21 Calcium 7.8 L (8.4-10.2) mg/dL Phosphorus 5.30 H D (2.5-4.5) mg/dL Pituitary panel 11/06/18 Range/Units 04:21 Sodium 133 L (137-145) mmol/L Potassium 5.0 D (3.6-5.0) mmol/L Chloride 100.5 (98-107) mmol/L Carbon Dioxide 18 L (22-30) mmol/L BUN 47 H (7-17) mg/dL Creatinine 0.7 (0.7-1.2) mg/dL Glucose 187 H (65-100) mg/dL Calcium 7.8 L (8.4-10.2) mg/dL Adrenal panel 11/06/18 Range/Units 04:21 Sodium 133 L (137-145) mmol/L Potassium 5.0 D (3.6-5.0) mmol/L Chloride 100.5 (98-107) mmol/L Carbon Dioxide 18 L (22-30) mmol/L BUN 47 H (7-17) mg/dL Creatinine 0.7 (0.7-1.2) mg/dL Glucose 187 H (65-100) mg/dL Calcium 7.8 L (8.4-10.2) mg/dL
--- NOTE | 2018-11-06 11:12 | Progress Note ---
Assessment and Plan 73 y/o female with bowel obstruction and now acute respiratory failure with hypercapnea, likely multifactorial from pain medications, anti-psychotic therapy and inability to take deep breaths for ventilation, now with fungemia from picc line placement. 1. Repeat CXR today. 2. Follow blood cultures. 3. Continue TPN, but will start trickle feeds today. held yesterday secondary to increase work of breathing. 4. abx therapy per ID 5. Continue ICU monitoring post extubation 6. Actually put out a great deal in the last 24 hours, will hold on lasix therapy today. Subjective Date of service: 11/06/18 Principal diagnosis: low plt Interval history: Extubated on yesterday. Later that afternoon started having some tachypnea but no desaturations. Started on HFNC and has tolerated. Also had some pain and some anxiety which contributed to tachypnea. Awake and alert this am. at bedside. Objective Vital Signs - 12hr 11/05/18 11/06/18 11/06/18 23:30 00:00 00:30 Temperature 99.0 F Pulse Rate 106 H 101 H 117 H Pulse Rate [ Anterior Bilateral Throughout] Pulse Rate [ Anterior Bilateral] Respiratory 24 26 H 29 H Rate Respiratory Rate [Anterior Bilateral Throughout] Respiratory Rate [Anterior Bilateral] Blood Pressure 131/67 146/62 155/65 O2 Sat by Pulse 97 96 97 Oximetry 11/06/18 11/06/18 11/06/18 01:01 01:31 02:01 Temperature Pulse Rate 115 H 109 H 120 H Pulse Rate [ Anterior Bilateral Throughout] Pulse Rate [ Anterior Bilateral] Respiratory 27 H 24 26 H Rate Respiratory Rate [Anterior Bilateral Throughout] Respiratory Rate [Anterior Bilateral] Blood Pressure 157/58 143/61 152/66 O2 Sat by Pulse 97 97 95 Oximetry 11/06/18 11/06/18 11/06/18 02:31 03:00 03:31 Temperature Pulse Rate 100 H 121 H 101 H Pulse Rate [ Anterior Bilateral Throughout] Pulse Rate [ Anterior Bilateral] Respiratory 26 H 28 H 27 H Rate Respiratory Rate [Anterior Bilateral Throughout] Respiratory Rate [Anterior Bilateral] Blood Pressure 142/60 152/65 149/60 O2 Sat by Pulse 94 95 96 Oximetry 11/06/18 11/06/18 11/06/18 04:00 04:31 05:00 Temperature 98.9 F Pulse Rate 121 H 119 H 121 H Pulse Rate [ Anterior Bilateral Throughout] Pulse Rate [ Anterior Bilateral] Respiratory 25 H 29 H 25 H Rate Respiratory Rate [Anterior Bilateral Throughout] Respiratory Rate [Anterior Bilateral] Blood Pressure 167/73 141/63 150/71 O2 Sat by Pulse 96 96 95 Oximetry 11/06/18 11/06/18 11/06/18 05:30 06:00 06:30 Temperature Pulse Rate 120 H 116 H 116 H Pulse Rate [ Anterior Bilateral Throughout] Pulse Rate [ Anterior Bilateral] Respiratory 27 H 28 H 29 H Rate Respiratory Rate [Anterior Bilateral Throughout] Respiratory Rate [Anterior Bilateral] Blood Pressure 159/64 156/69 153/69 O2 Sat by Pulse 95 95 95 Oximetry 11/06/18 11/06/18 11/06/18 07:22 07:43 07:49 Temperature 97.9 F Pulse Rate Pulse Rate [ 114 H Anterior Bilateral Throughout] Pulse Rate [ 108 H Anterior Bilateral] Respiratory Rate Respiratory 20 Rate [Anterior Bilateral Throughout] Respiratory 20 Rate [Anterior Bilateral] Blood Pressure O2 Sat by Pulse 95 Oximetry 11/06/18 08:58 Temperature Pulse Rate 118 H Pulse Rate [ Anterior Bilateral Throughout] Pulse Rate [ Anterior Bilateral] Respiratory Rate Respiratory Rate [Anterior Bilateral Throughout] Respiratory Rate [Anterior Bilateral] Blood Pressure 154/56 O2 Sat by Pulse Oximetry Constitutional: no acute distress, alert Eyes: non-icteric Neck: supple, no JVD Effort: mildly labored Ascultation: Bilateral: clear, diminished breath sounds (at bases), wheezes, rales, rhonchi (sporadic) Percussion: Bilateral: not dull Cardiovascular: regular rate and rhythm Gastrointestinal: hypoactive bowel sounds, other (soft and depressible. Decreased bowel sounds, no rebound tenderness mild distention) Integumentary: normal Extremities: no edema Neurologic: normal mental status, non-focal exam Psychiatric: anxious CBC and BMP: 11/05/18 05:30 11/06/18 04:21 ABG, PT/INR, D-dimer: ABG POC ABG pH 7.379 (7.35-7.45) 11/05/18 20:03 POC ABG pCO2 36.2 (35-45) 11/05/18 20:03 POC ABG pO2 76 (80-105) L 11/05/18 20:03 POC ABG HCO3 21.4 (22-26 mml/L) 11/05/18 20:03 POC ABG Total CO2 22 (23-27mmol/L) 11/05/18 20:03 POC ABG O2 Sat 95 11/05/18 20:03 Abnormal lab findings: Abnormal Labs 10/22/18 10/22/18 10/22/18 15:31 15:54 15:54 WBC 11.5 H RBC 5.35 H Hgb 17.4 H Hct 50.3 H MCV MCH 33 H MCHC 35 H Plt Count Lymph % (Auto) 12.6 L [place] % (Auto) 14.8 H Lymph # [place] # 1.7 H Seg Neutrophils % 72.5 H Seg Neuts % (Manual) Lymphocytes % (Manual) Seg Neutrophils # 8.3 H Seg Neutrophils # Man Lymphocytes # (Manual) POC ABG pH POC ABG pCO2 POC ABG pO2 Sodium 134 L Potassium Chloride 88.1 L Carbon Dioxide BUN 51 H Creatinine 2.1 H Glucose 166 H POC Glucose Calcium Phosphorus Magnesium Total Protein Albumin 3.4 L Lipase 10 L Free T4 10/23/18 10/23/18 10/23/18 04:32 04:32 10:53 WBC RBC Hgb Hct MCV MCH MCHC Plt Count Lymph % (Auto) 10.2 L [place] % (Auto) 14.7 H Lymph # 0.7 L [place] # 1.0 H Seg Neutrophils % 74.9 H Seg Neuts % (Manual) Lymphocytes % (Manual) Seg Neutrophils # Seg Neutrophils # Man Lymphocytes # (Manual) POC ABG pH POC ABG pCO2 POC ABG pO2 Sodium Potassium 3.1 L D 3.5 L Chloride Carbon Dioxide BUN 41 H 37 H Creatinine Glucose 111 H 110 H POC Glucose Calcium 8.1 L 8.1 L Phosphorus Magnesium Total Protein Albumin Lipase Free T4 10/24/18 10/24/18 10/25/18 05:34 05:34 04:51 WBC RBC Hgb Hct MCV MCH MCHC Plt Count Lymph % (Auto) [place] % (Auto) Lymph # [place] # Seg Neutrophils % Seg Neuts % (Manual) Lymphocytes % (Manual) Seg Neutrophils # Seg Neutrophils # Man Lymphocytes # (Manual) POC ABG pH POC ABG pCO2 POC ABG pO2 Sodium Potassium 3.2 L 3.1 L Chloride 109.8 H 114.2 H Carbon Dioxide 17 L D BUN 21 H Creatinine Glucose 134 H 171 H POC Glucose Calcium 7.7 L 7.0 L Phosphorus 0.80 L* Magnesium Total Protein Albumin Lipase Free T4 10/25/18 10/26/18 10/26/18 06:07 02:58 04:57 WBC RBC Hgb Hct MCV 99 H MCH 33 H MCHC Plt Count Lymph % (Auto) [place] % (Auto) Lymph # [place] # Seg Neutrophils % Seg Neuts % (Manual) Lymphocytes % (Manual) Seg Neutrophils # Seg Neutrophils # Man Lymphocytes # (Manual) POC ABG pH 7.090 L 7.320 L POC ABG pCO2 65.0 H 32.8 L POC ABG pO2 76 L Sodium Potassium Chloride Carbon Dioxide BUN Creatinine Glucose POC Glucose Calcium Phosphorus Magnesium Total Protein Albumin Lipase Free T4 10/26/18 10/26/18 10/26/18 06:03 06:03 11:52 WBC 23.8 H RBC Hgb 15.4 H Hct 46.1 H D MCV MCH MCHC Plt Count Lymph % (Auto) [place] % (Auto) Lymph # [place] # Seg Neutrophils % Seg Neuts % (Manual) Lymphocytes % (Manual) Seg Neutrophils # Seg Neutrophils # Man Lymphocytes # (Manual) POC ABG pH POC ABG pCO2 POC ABG pO2 Sodium Potassium Chloride 109.5 H Carbon Dioxide 18 L BUN Creatinine Glucose 128 H POC Glucose 117 H Calcium 8.3 L D Phosphorus Magnesium Total Protein Albumin Lipase Free T4 10/26/18 10/26/18 10/26/18 13:54 17:10 17:32 WBC RBC Hgb Hct MCV MCH MCHC Plt Count Lymph % (Auto) [place] % (Auto) Lymph # [place] # Seg Neutrophils % Seg Neuts % (Manual) Lymphocytes % (Manual) Seg Neutrophils # Seg Neutrophils # Man Lymphocytes # (Manual) POC ABG pH 7.215 L POC ABG pCO2 31.8 L POC ABG pO2 69 L 204 H Sodium Potassium 3.0 L D Chloride 114.5 H Carbon Dioxide 21 L BUN Creatinine Glucose POC Glucose Calcium 7.6 L Phosphorus Magnesium 1.40 L Total Protein Albumin Lipase Free T4 10/26/18 10/27/18 10/27/18 23:13 00:40 01:09 WBC RBC Hgb Hct MCV MCH MCHC Plt Count Lymph % (Auto) [place] % (Auto) Lymph # [place] # Seg Neutrophils % Seg Neuts % (Manual) Lymphocytes % (Manual) Seg Neutrophils # Seg Neutrophils # Man Lymphocytes # (Manual) POC ABG pH POC ABG pCO2 POC ABG pO2 Sodium Potassium 3.4 L Chloride 115.0 H Carbon Dioxide 14 L D BUN Creatinine Glucose 228 H POC Glucose 48 L 264 H Calcium 7.1 L Phosphorus Magnesium Total Protein Albumin Lipase Free T4 10/27/18 10/27/18 10/27/18 05:00 05:00 05:16 WBC 22.5 H RBC Hgb 14.7 H Hct 44.4 H MCV MCH MCHC Plt Count Lymph % (Auto) [place] % (Auto) Lymph # [place] # Seg Neutrophils % Seg Neuts % (Manual) Lymphocytes % (Manual) Seg Neutrophils # Seg Neutrophils # Man Lymphocytes # (Manual) POC ABG pH 7.304 L POC ABG pCO2 POC ABG pO2 116 H Sodium Potassium Chloride 118.4 H Carbon Dioxide 16 L BUN Creatinine Glucose 123 H POC Glucose Calcium 7.7 L Phosphorus Magnesium 2.60 H Total Protein Albumin Lipase Free T4 10/28/18 10/28/18 10/28/18 04:25 04:25 15:37 WBC 23.5 H RBC Hgb Hct MCV MCH MCHC Plt Count Lymph % (Auto) [place] % (Auto) Lymph # [place] # Seg Neutrophils % Seg Neuts % (Manual) Lymphocytes % (Manual) Seg Neutrophils # Seg Neutrophils # Man Lymphocytes # (Manual) POC ABG pH POC ABG pCO2 POC ABG pO2 Sodium 147 H Potassium Chloride 116.9 H Carbon Dioxide 16 L BUN 23 H Creatinine Glucose POC Glucose 114 H Calcium 8.0 L Phosphorus Magnesium Total Protein Albumin Lipase Free T4 10/28/18 10/28/18 10/28/18 20:33 22:07 23:31 WBC RBC Hgb Hct MCV MCH MCHC Plt Count Lymph % (Auto) [place] % (Auto) Lymph # [place] # Seg Neutrophils % Seg Neuts % (Manual) Lymphocytes % (Manual) Seg Neutrophils # Seg Neutrophils # Man Lymphocytes # (Manual) POC ABG pH 7.202 L 7.235 L POC ABG pCO2 POC ABG pO2 71 L Sodium Potassium Chloride Carbon Dioxide BUN Creatinine Glucose POC Glucose 207 H Calcium Phosphorus Magnesium Total Protein Albumin Lipase Free T4 10/29/18 10/29/18 10/29/18 04:30 04:30 05:26 WBC 21.1 H RBC Hgb Hct MCV MCH MCHC Plt Count Lymph % (Auto) [place] % (Auto) Lymph # [place] # Seg Neutrophils % Seg Neuts % (Manual) 97.0 H Lymphocytes % (Manual) 3.0 L Seg Neutrophils # Seg Neutrophils # Man 20.5 H Lymphocytes # (Manual) 0.6 L POC ABG pH 7.305 L POC ABG pCO2 30.5 L POC ABG pO2 75 L Sodium 147 H Potassium 3.5 L Chloride 120.0 H Carbon Dioxide 17 L BUN 30 H Creatinine Glucose 246 H POC Glucose Calcium 7.9 L Phosphorus Magnesium Total Protein Albumin Lipase Free T4 10/29/18 10/29/18 10/29/18 05:36 11:39 18:00 WBC RBC Hgb Hct MCV MCH MCHC Plt Count Lymph % (Auto) [place] % (Auto) Lymph # [place] # Seg Neutrophils % Seg Neuts % (Manual) Lymphocytes % (Manual) Seg Neutrophils # Seg Neutrophils # Man Lymphocytes # (Manual) POC ABG pH POC ABG pCO2 POC ABG pO2 Sodium Potassium Chloride Carbon Dioxide BUN Creatinine Glucose POC Glucose 204 H 224 H 221 H Calcium Phosphorus Magnesium Total Protein Albumin Lipase Free T4 10/29/18 10/30/18 10/30/18 23:17 05:00 05:00 WBC 21.4 H RBC Hgb Hct MCV MCH MCHC Plt Count 134 L Lymph % (Auto) [place] % (Auto) Lymph # [place] # Seg Neutrophils % Seg Neuts % (Manual) 97.0 H Lymphocytes % (Manual) 3.0 L Seg Neutrophils # Seg Neutrophils # Man 20.8 H Lymphocytes # (Manual) 0.6 L POC ABG pH POC ABG pCO2 POC ABG pO2 Sodium 148 H Potassium 3.1 L Chloride 120.3 H Carbon Dioxide 18 L BUN 31 H Creatinine Glucose 205 H POC Glucose 181 H Calcium 8.0 L Phosphorus Magnesium Total Protein Albumin Lipase Free T4 10/30/18 10/30/18 10/30/18 05:14 05:25 05:26 WBC RBC Hgb Hct MCV MCH MCHC Plt Count Lymph % (Auto) [place] % (Auto) Lymph # [place] # Seg Neutrophils % Seg Neuts % (Manual) Lymphocytes % (Manual) Seg Neutrophils # Seg Neutrophils # Man Lymphocytes # (Manual) POC ABG pH 7.296 L 7.245 L POC ABG pCO2 31.1 L POC ABG pO2 54 L 59 L Sodium Potassium Chloride Carbon Dioxide BUN Creatinine Glucose POC Glucose 199 H Calcium Phosphorus Magnesium Total Protein Albumin Lipase Free T4 10/30/18 10/30/18 10/31/18 13:23 18:25 00:22 WBC RBC Hgb Hct MCV MCH MCHC Plt Count Lymph % (Auto) [place] % (Auto) Lymph # [place] # Seg Neutrophils % Seg Neuts % (Manual) Lymphocytes % (Manual) Seg Neutrophils # Seg Neutrophils # Man Lymphocytes # (Manual) POC ABG pH POC ABG pCO2 POC ABG pO2 Sodium Potassium Chloride Carbon Dioxide BUN Creatinine Glucose POC Glucose 146 H 158 H 162 H Calcium Phosphorus Magnesium Total Protein Albumin Lipase Free T4 10/31/18 10/31/18 10/31/18 04:39 05:14 07:05 WBC RBC Hgb Hct MCV MCH MCHC Plt Count Lymph % (Auto) [place] % (Auto) Lymph # [place] # Seg Neutrophils % Seg Neuts % (Manual) Lymphocytes % (Manual) Seg Neutrophils # Seg Neutrophils # Man Lymphocytes # (Manual) POC ABG pH 7.238 L POC ABG pCO2 POC ABG pO2 Sodium Potassium Chloride 115.8 H Carbon Dioxide 18 L BUN 39 H Creatinine 1.3 H Glucose 167 H POC Glucose 145 H Calcium 7.5 L Phosphorus 1.80 L Magnesium Total Protein Albumin Lipase Free T4 10/31/18 10/31/18 10/31/18 10:43 12:03 17:00 WBC RBC Hgb Hct MCV MCH MCHC Plt Count Lymph % (Auto) [place] % (Auto) Lymph # [place] # Seg Neutrophils % Seg Neuts % (Manual) Lymphocytes % (Manual) Seg Neutrophils # Seg Neutrophils # Man Lymphocytes # (Manual) POC ABG pH 7.304 L POC ABG pCO2 33.3 L POC ABG pO2 Sodium Potassium Chloride Carbon Dioxide BUN Creatinine Glucose POC Glucose 159 H Calcium Phosphorus Magnesium Total Protein Albumin Lipase Free T4 0.49 L 10/31/18 11/01/18 11/01/18 17:00 00:44 05:27 WBC RBC Hgb Hct MCV MCH MCHC Plt Count Lymph % (Auto) [place] % (Auto) Lymph # [place] # Seg Neutrophils % Seg Neuts % (Manual) Lymphocytes % (Manual) Seg Neutrophils # Seg Neutrophils # Man Lymphocytes # (Manual) POC ABG pH 7.248 L POC ABG pCO2 34.8 L POC ABG pO2 135 H Sodium Potassium Chloride Carbon Dioxide BUN Creatinine Glucose POC Glucose 127 H 118 H Calcium Phosphorus Magnesium Total Protein Albumin Lipase Free T4 11/01/18 11/01/18 11/01/18 06:40 06:40 06:53 WBC 18.9 H RBC 3.63 L Hgb Hct MCV MCH MCHC Plt Count 64 L Lymph % (Auto) [place] % (Auto) Lymph # [place] # Seg Neutrophils % Seg Neuts % (Manual) 98.0 H Lymphocytes % (Manual) 1.0 L Seg Neutrophils # Seg Neutrophils # Man 18.5 H Lymphocytes # (Manual) 0.2 L POC ABG pH POC ABG pCO2 POC ABG pO2 Sodium Potassium 3.5 L Chloride 114.2 H Carbon Dioxide 17 L BUN 49 H Creatinine Glucose 107 H POC Glucose 127 H Calcium 7.3 L Phosphorus Magnesium 1.60 L Total Protein Albumin Lipase Free T4 11/01/18 11/01/18 11/01/18 11:49 13:13 17:24 WBC RBC Hgb Hct MCV MCH MCHC Plt Count Lymph % (Auto) [place] % (Auto) Lymph # [place] # Seg Neutrophils % Seg Neuts % (Manual) Lymphocytes % (Manual) Seg Neutrophils # Seg Neutrophils # Man Lymphocytes # (Manual) POC ABG pH POC ABG pCO2 POC ABG pO2 182 H Sodium Potassium Chloride Carbon Dioxide BUN Creatinine Glucose POC Glucose 134 H 111 H Calcium Phosphorus Magnesium Total Protein Albumin Lipase Free T4 11/01/18 11/02/18 11/02/18 23:07 04:32 05:00 WBC RBC Hgb Hct MCV MCH MCHC Plt Count Lymph % (Auto) [place] % (Auto) Lymph # [place] # Seg Neutrophils % Seg Neuts % (Manual) Lymphocytes % (Manual) Seg Neutrophils # Seg Neutrophils # Man Lymphocytes # (Manual) POC ABG pH 7.244 L POC ABG pCO2 33.2 L POC ABG pO2 123 H Sodium Potassium 3.0 L Chloride 114.1 H Carbon Dioxide 15 L BUN 47 H Creatinine Glucose 127 H POC Glucose 123 H Calcium 7.7 L Phosphorus Magnesium Total Protein Albumin Lipase Free T4 11/02/18 11/02/18 11/02/18 05:00 05:29 11:27 WBC RBC Hgb Hct MCV MCH MCHC Plt Count Lymph % (Auto) [place] % (Auto) Lymph # [place] # Seg Neutrophils % Seg Neuts % (Manual) Lymphocytes % (Manual) Seg Neutrophils # Seg Neutrophils # Man Lymphocytes # (Manual) POC ABG pH POC ABG pCO2 POC ABG pO2 Sodium Potassium Chloride Carbon Dioxide BUN Creatinine Glucose POC Glucose 118 H 137 H Calcium Phosphorus Magnesium 1.60 L Total Protein Albumin Lipase Free T4 11/02/18 11/02/18 11/03/18 12:53 23:35 04:14 WBC RBC Hgb Hct MCV MCH MCHC Plt Count Lymph % (Auto) [place] % (Auto) Lymph # [place] # Seg Neutrophils % Seg Neuts % (Manual) Lymphocytes % (Manual) Seg Neutrophils # Seg Neutrophils # Man Lymphocytes # (Manual) POC ABG pH POC ABG pCO2 30.3 L POC ABG pO2 134 H 129 H Sodium Potassium Chloride Carbon Dioxide BUN Creatinine Glucose POC Glucose 115 H Calcium Phosphorus Magnesium Total Protein Albumin Lipase Free T4 11/03/18 11/03/18 11/03/18 05:34 11:30 11:30 WBC 16.4 H RBC 3.50 L Hgb Hct MCV MCH MCHC Plt Count 136 L D Lymph % (Auto) [place] % (Auto) Lymph # [place] # Seg Neutrophils % Seg Neuts % (Manual) 97.0 H Lymphocytes % (Manual) 2.0 L Seg Neutrophils # Seg Neutrophils # Man 15.9 H Lymphocytes # (Manual) 0.3 L POC ABG pH POC ABG pCO2 POC ABG pO2 Sodium Potassium 3.1 L Chloride 110.4 H Carbon Dioxide 17 L BUN 41 H Creatinine Glucose 129 H POC Glucose 116 H Calcium 7.7 L Phosphorus Magnesium 1.60 L Total Protein 4.2 L Albumin 1.2 L Lipase Free T4 11/03/18 11/03/18 11/03/18 12:01 17:35 21:37 WBC RBC Hgb Hct MCV MCH MCHC Plt Count Lymph % (Auto) [place] % (Auto) Lymph # [place] # Seg Neutrophils % Seg Neuts % (Manual) Lymphocytes % (Manual) Seg Neutrophils # Seg Neutrophils # Man Lymphocytes # (Manual) POC ABG pH POC ABG pCO2 POC ABG pO2 Sodium Potassium Chloride Carbon Dioxide BUN Creatinine Glucose POC Glucose 132 H 132 H 126 H Calcium Phosphorus Magnesium Total Protein Albumin Lipase Free T4 11/03/18 11/04/18 11/04/18 23:30 05:14 05:15 WBC RBC Hgb Hct MCV MCH MCHC Plt Count Lymph % (Auto) [place] % (Auto) Lymph # [place] # Seg Neutrophils % Seg Neuts % (Manual) Lymphocytes % (Manual) Seg Neutrophils # Seg Neutrophils # Man Lymphocytes # (Manual) POC ABG pH POC ABG pCO2 30.9 L POC ABG pO2 192 H Sodium Potassium Chloride Carbon Dioxide BUN Creatinine Glucose POC Glucose 115 H 123 H Calcium Phosphorus Magnesium Total Protein Albumin Lipase Free T4 11/04/18 11/04/18 11/04/18 09:39 09:39 11:43 WBC 15.2 H RBC 3.18 L Hgb Hct 29.9 L MCV MCH MCHC Plt Count Lymph % (Auto) [place] % (Auto) Lymph # [place] # Seg Neutrophils % Seg Neuts % (Manual) 98.0 H Lymphocytes % (Manual) 1.0 L Seg Neutrophils # Seg Neutrophils # Man 14.9 H Lymphocytes # (Manual) 0.2 L POC ABG pH POC ABG pCO2 POC ABG pO2 Sodium 135 L D Potassium Chloride 109.5 H Carbon Dioxide 16 L BUN 46 H Creatinine Glucose 136 H POC Glucose 138 H Calcium 8.0 L Phosphorus Magnesium Total Protein Albumin Lipase Free T4 11/04/18 11/04/18 11/05/18 17:31 23:42 05:23 WBC RBC Hgb Hct MCV MCH MCHC Plt Count Lymph % (Auto) [place] % (Auto) Lymph # [place] # Seg Neutrophils % Seg Neuts % (Manual) Lymphocytes % (Manual) Seg Neutrophils # Seg Neutrophils # Man Lymphocytes # (Manual) POC ABG pH POC ABG pCO2 POC ABG pO2 Sodium Potassium Chloride Carbon Dioxide BUN Creatinine Glucose POC Glucose 139 H 138 H 148 H Calcium Phosphorus Magnesium Total Protein Albumin Lipase Free T4 11/05/18 11/05/18 11/05/18 05:30 05:30 11:46 WBC 14.2 H RBC 3.12 L Hgb 10.0 L Hct 29.1 L MCV MCH MCHC Plt Count Lymph % (Auto) [place] % (Auto) Lymph # [place] # Seg Neutrophils % Seg Neuts % (Manual) Lymphocytes % (Manual) Seg Neutrophils # Seg Neutrophils # Man Lymphocytes # (Manual) POC ABG pH POC ABG pCO2 POC ABG pO2 Sodium Potassium Chloride Carbon Dioxide 21 L BUN 42 H Creatinine Glucose 125 H POC Glucose 157 H Calcium 7.9 L Phosphorus Magnesium Total Protein Albumin Lipase Free T4 11/05/18 11/05/18 11/05/18 17:09 20:03 23:43 WBC RBC Hgb Hct MCV MCH MCHC Plt Count Lymph % (Auto) [place] % (Auto) Lymph # [place] # Seg Neutrophils % Seg Neuts % (Manual) Lymphocytes % (Manual) Seg Neutrophils # Seg Neutrophils # Man Lymphocytes # (Manual) POC ABG pH POC ABG pCO2 POC ABG pO2 76 L Sodium Potassium Chloride Carbon Dioxide BUN Creatinine Glucose POC Glucose 142 H 204 H Calcium Phosphorus Magnesium Total Protein Albumin Lipase Free T4 11/06/18 04:21 WBC RBC Hgb Hct MCV MCH MCHC Plt Count Lymph % (Auto) [place] % (Auto) Lymph # [place] # Seg Neutrophils % Seg Neuts % (Manual) Lymphocytes % (Manual) Seg Neutrophils # Seg Neutrophils # Man Lymphocytes # (Manual) POC ABG pH POC ABG pCO2 POC ABG pO2 Sodium 133 L Potassium Chloride Carbon Dioxide 18 L BUN 47 H Creatinine Glucose 187 H POC Glucose Calcium 7.8 L Phosphorus 5.30 H D Magnesium 2.50 H Total Protein Albumin Lipase Free T4 Allied health notes reviewed: nursing
--- NOTE | 2018-11-06 11:55 | Progress Note ---
Assessment and Plan Cultures: Blood cultures 10/22/2018 no growth so far. Tracheal asp cultures 10/28/2018: E.coli and Stenotrophomonas. 10/30/2018 blood culture: Ayla non albicans 11/03/2018 fungal blood culture: no growth thus far Assessment: 73 y/o female with history of COPD, hypertension, lupus, fibromyalgia, opioid dependence admitted on 10/22/2018 due to 3-day history of intractable nausea, vomiting, diarrhea: 1) SIRS v/s sepsis: Etiology most likely aspiration pneumonia +/- intra- abdominal source from contained gastric perforation. Now also with Candidemia. 2) Candidemia: in the setting of TPN and PICC line. PICC removed. Has temporary central line. TTE not optimal quality, will need LAUREN only if repeat fungal blood cultures are positive. Continue IV Micafungin and f/u fungal blood cultures. 3) Presumed aspiration pneumonia v/s HAP: Tracheal asp cultures 10/28/2018 with E.coli and Stenotrophomonas. Stenotrophomonas is a known colonizer in patients with structural lung disease or tracheostomy tubes/ET tubes, not generally considered very virulent. Completed 7 days of abx. 4) Acute respiratory failure: pneumonia and fluid overload. Extubated 11/05/2018. 5) Ileus v/s partial SBO and contained gastric perforation: Gen Surgery following. Planned for conservative management, trickle feeds and TPN. 6) ADWOA: improved. Recommendations: - stop Cefepime, Flagyl, Levofloxacin today - continue IV Micafungin, duration of antifungals will be 14 days from negative cultures - follow up ID on Ayla species (non-albicans) - TTE not optimal quality, will need LAUREN only if repeat fungal blood cultures are positive - monitor WBC MD [facility] C: [phone] O: [phone] F: [phone] Subjective Date of service: 11/06/18 Principal diagnosis: low plt Interval history: No fever. got Ativan for agitation. Seems more short of breath. Remains on low intermittent suction and TPN. Objective - Exam Narrative Exam: Physical Exam: Constitutional: sleepy, mild resp distress Head, Ears, Nose: Normocephalic, atraumatic. External ears, nose normal Eyes: Conjunctivae/corneas clear. No icterus. No ptosis. Neck: Supple, no meningeal signs. central line + Oral: several missing teeth, no thrush. Cardiovascular: S1, S2 normal, no murmur heard Respiratory: bilateral rhonchi +, AE reduced in the bases GI: Soft, non-tender; bowel sounds hypoactive, No peritoneal signs Musculoskeletal: anasarca + Skin: No rash or abscess Hem/Lymphatic: No palpable cervical or supraclavicular nodes. No lymphangitis Psych: calm, no agitation Neurological: sleepy. - Constitutional Vitals: Vital Signs Temp Pulse Resp BP Pulse Ox 97.9 F 118 H 20 154/56 95 11/06/18 07:43 11/06/18 08:58 11/06/18 07:22 11/06/18 08:58 11/06/18 07:49 Temperature -Last 24 Hours Temperature 97.9 F Temperature 98.9 F Temperature 99.0 F Temperature 98.8 F Temperature 98.2 F Temperature 98.1 F Temperature 98.1 F - Labs CBC & Chem 7: 11/05/18 05:30 11/06/18 04:21 Labs: Abnormal lab results 11/05/18 11/05/18 11/05/18 Range/Units 11:46 17:09 20:03 POC ABG pO2 76 L (80-105) Sodium (137-145) mmol/L Carbon Dioxide (22-30) mmol/L BUN (7-17) mg/dL Glucose (65-100) mg/dL POC Glucose 157 H 142 H (70-105) Calcium (8.4-10.2) mg/dL Phosphorus (2.5-4.5) mg/dL Magnesium (1.7-2.3) mg/dL 11/05/18 11/06/18 Range/Units 23:43 04:21 POC ABG pO2 (80-105) Sodium 133 L (137-145) mmol/L Carbon Dioxide 18 L (22-30) mmol/L BUN 47 H (7-17) mg/dL Glucose 187 H (65-100) mg/dL POC Glucose 204 H (70-105) Calcium 7.8 L (8.4-10.2) mg/dL Phosphorus 5.30 H D (2.5-4.5) mg/dL Magnesium 2.50 H (1.7-2.3) mg/dL - Imaging and cardiology Chest x-ray: report reviewed, image reviewed (suggestive of fluid overload)
--- NOTE | 2018-11-06 12:04 | XRay Report ---
AP CHEST: HISTORY: Tachypnea, shortness of breath The endotracheal tube has been removed since 11/03/18. The nasogastric tube and right venous catheter are unchanged. There is poor inspiration. Small left pleural effusion and left basilar atelectasis is suspected which is unchanged. The remainder of the lungs are grossly clear given the poor inspiration.
[2018-11-06] MEDS: APRESOLINE IV PRN (18:58)
[2018-11-06] MEDS ORDERED: TPN ADULT 2,400 ML IV SCH (20:00)
[2018-11-06] MEDS: LOVENOX SUB-Q SCH (21:31)
[2018-11-06] MEDS ORDERED: LASIX IV ONE (23:34)
[2018-11-07] MEDS: APRESOLINE IV PRN (00:04)
[2018-11-07] MEDS: HumaLOG SUB-Q SCH ×5 (00:05→18:08)
[2018-11-07 05:14] LABS: Hematocrit 34.1 % (30.3-42.9); Hemoglobin 11.4 gm/dl (10.1-14.3); Mean Corpuscular HGB Conc 34 % (30-34); Mean Corpuscular Volume 94 fl (79-97); Platelet Count 227 K/mm3 (140-440); Red Blood Count 3.64 M/mm3 (3.65-5.03); Red Cell Distribution Width 14.8 % (13.2-15.2)
[2018-11-07 05:38] LABS: BUN/Creatinine Ratio 68; Blood Urea Nitrogen 54 mg/dL (7-17); Calcium 7.9 mg/dL (8.4-10.2); Hemolysis Index 7
[2018-11-07] MEDS: SOLU-Medrol IV SCH ×3 (06:25→18:10)
[2018-11-07] MEDS: BROVANA NEBU IH SCH ×2 (07:51→19:20)
[2018-11-07] MEDS: PULMICORT IH SCH ×2 (07:51→19:20)
[2018-11-07] MEDS ORDERED: LASIX ONE (08:03)
[2018-11-07] MEDS ORDERED: AMIDATE IV ONE ×2 (08:35→20:37)
[2018-11-07] MEDS ORDERED: SUBLIMAZE IV ONE (08:35)
[2018-11-07] MEDS ORDERED: VERSED IV ONE ×2 (08:36→20:37)
--- NOTE | 2018-11-07 08:52 | Progress Note ---
Assessment and Plan 73 y/o female with bowel obstruction and now acute respiratory failure with hypercapnea, likely multifactorial from pain medications, anti-psychotic therapy and inability to take deep breaths for ventilation, now with fungemia from picc line placement. 1. Re-intubate, this will be the third time. Will need trach placement and peg if abdomen is ok for this. 2. Follow blood cultures, still pending. 3. Continue TPN, does not appear that tube feeds were started yesterday, once reintubated will start 4. abx therapy per ID 5. Will discuss with CM about need for trach and placement there after 6. Lasix again today. CCT 31 minutes. Subjective Date of service: 11/07/18 Principal diagnosis: low plt Interval history: Unfortunately overnight, patient desatted and FiO2 increased. CO2 started rising so placed back on bipap. Patient is awake and alert this am, follows commands but is tachypnic in the mid 40's. Sats are good on 30% and I increased bipap insp pressure to 16 with no improvement in rate. at bedside and I have discussed with him re-intubation and the need for trach with this. Objective Vital Signs - 12hr 11/06/18 11/06/18 11/06/18 21:00 21:30 22:00 Temperature Pulse Rate 58 L 110 H 109 H Pulse Rate [ Anterior Bilateral Throughout] Pulse Rate [ From Monitor] Respiratory 36 H 35 H Rate Respiratory Rate [Anterior Bilateral Throughout] Blood Pressure 161/61 173/59 O2 Sat by Pulse 93 93 Oximetry 11/06/18 11/06/18 11/06/18 22:01 22:30 23:00 Temperature Pulse Rate 121 H 120 H 109 H Pulse Rate [ Anterior Bilateral Throughout] Pulse Rate [ From Monitor] Respiratory 38 H 45 H 32 H Rate Respiratory Rate [Anterior Bilateral Throughout] Blood Pressure 158/70 161/66 164/97 O2 Sat by Pulse 93 94 91 Oximetry 11/06/18 11/06/18 11/06/18 23:15 23:30 23:59 Temperature 98.2 F Pulse Rate 109 H 130 H Pulse Rate [ Anterior Bilateral Throughout] Pulse Rate [ From Monitor] Respiratory 40 H 48 H Rate Respiratory Rate [Anterior Bilateral Throughout] Blood Pressure 171/79 171/79 O2 Sat by Pulse 90 94 Oximetry 11/07/18 11/07/18 11/07/18 00:00 00:01 00:04 Temperature Pulse Rate 116 H 113 H Pulse Rate [ Anterior Bilateral Throughout] Pulse Rate [ 128 H From Monitor] Respiratory 47 H Rate Respiratory Rate [Anterior Bilateral Throughout] Blood Pressure 183/72 183/72 O2 Sat by Pulse 93 94 Oximetry 11/07/18 11/07/18 11/07/18 00:31 01:00 01:30 Temperature Pulse Rate 113 H 118 H 118 H Pulse Rate [ Anterior Bilateral Throughout] Pulse Rate [ From Monitor] Respiratory 41 H 38 H 42 H Rate Respiratory Rate [Anterior Bilateral Throughout] Blood Pressure 142/63 130/61 119/62 O2 Sat by Pulse 96 96 97 Oximetry 11/07/18 11/07/18 11/07/18 02:00 02:30 03:00 Temperature Pulse Rate 119 H 118 H 115 H Pulse Rate [ Anterior Bilateral Throughout] Pulse Rate [ From Monitor] Respiratory 41 H 45 H 44 H Rate Respiratory Rate [Anterior Bilateral Throughout] Blood Pressure 134/71 120/75 128/75 O2 Sat by Pulse 97 97 97 Oximetry 11/07/18 11/07/18 11/07/18 03:30 03:44 04:00 Temperature 97.6 F Pulse Rate 111 H 109 H 111 H Pulse Rate [ Anterior Bilateral Throughout] Pulse Rate [ 109 H From Monitor] Respiratory 42 H 44 H 42 H Rate Respiratory Rate [Anterior Bilateral Throughout] Blood Pressure 136/66 136/66 136/66 O2 Sat by Pulse 97 97 97 Oximetry 11/07/18 11/07/18 11/07/18 04:30 05:00 05:31 Temperature Pulse Rate 120 H 119 H 109 H Pulse Rate [ Anterior Bilateral Throughout] Pulse Rate [ From Monitor] Respiratory 40 H 43 H 45 H Rate Respiratory Rate [Anterior Bilateral Throughout] Blood Pressure 137/79 141/80 137/79 O2 Sat by Pulse 97 98 98 Oximetry 11/07/18 11/07/18 11/07/18 06:01 07:51 08:02 Temperature Pulse Rate 109 H 117 H Pulse Rate [ 105 H 109 H Anterior Bilateral Throughout] Pulse Rate [ From Monitor] Respiratory 42 H 44 H Rate Respiratory 39 H 41 H Rate [Anterior Bilateral Throughout] Blood Pressure 137/79 131/63 O2 Sat by Pulse 98 99 Oximetry Constitutional: alert, lethargic, appears uncomfortable Eyes: non-icteric ENT: other (orally intubated) Neck: supple, no JVD Effort: mildly labored Ascultation: Bilateral: diminished breath sounds (at bases), wheezes, rales, rhonchi (sporadic) Percussion: Bilateral: not dull Cardiovascular: regular rate and rhythm Gastrointestinal: hypoactive bowel sounds, other (soft and depressible. Decreased bowel sounds, no rebound tenderness mild distention) Integumentary: normal Extremities: no edema Neurologic: normal mental status, non-focal exam Psychiatric: anxious CBC and BMP: 11/07/18 04:55 11/07/18 04:55 ABG, PT/INR, D-dimer: ABG POC ABG pH 7.368 (7.35-7.45) 11/07/18 08:08 POC ABG pCO2 47.6 (35-45) H 11/07/18 08:08 POC ABG pO2 106 (80-105) H 11/07/18 08:08 POC ABG HCO3 27.4 (22-26 mml/L) 11/07/18 08:08 POC ABG Total CO2 29 (23-27mmol/L) 11/07/18 08:08 POC ABG O2 Sat 98 11/07/18 08:08 Abnormal lab findings: Abnormal Labs 10/22/18 10/22/18 10/22/18 15:31 15:54 15:54 WBC 11.5 H RBC 5.35 H Hgb 17.4 H Hct 50.3 H MCV MCH 33 H MCHC 35 H Plt Count Lymph % (Auto) 12.6 L [place] % (Auto) 14.8 H Lymph # [place] # 1.7 H Seg Neutrophils % 72.5 H Seg Neuts % (Manual) Lymphocytes % (Manual) Seg Neutrophils # 8.3 H Seg Neutrophils # Man Lymphocytes # (Manual) POC ABG pH POC ABG pCO2 POC ABG pO2 Sodium 134 L Potassium Chloride 88.1 L Carbon Dioxide BUN 51 H Creatinine 2.1 H Glucose 166 H POC Glucose Calcium Phosphorus Magnesium Total Protein Albumin 3.4 L Lipase 10 L Free T4 10/23/18 10/23/18 10/23/18 04:32 04:32 10:53 WBC RBC Hgb Hct MCV MCH MCHC Plt Count Lymph % (Auto) 10.2 L [place] % (Auto) 14.7 H Lymph # 0.7 L [place] # 1.0 H Seg Neutrophils % 74.9 H Seg Neuts % (Manual) Lymphocytes % (Manual) Seg Neutrophils # Seg Neutrophils # Man Lymphocytes # (Manual) POC ABG pH POC ABG pCO2 POC ABG pO2 Sodium Potassium 3.1 L D 3.5 L Chloride Carbon Dioxide BUN 41 H 37 H Creatinine Glucose 111 H 110 H POC Glucose Calcium 8.1 L 8.1 L Phosphorus Magnesium Total Protein Albumin Lipase Free T4 10/24/18 10/24/18 10/25/18 05:34 05:34 04:51 WBC RBC Hgb Hct MCV MCH MCHC Plt Count Lymph % (Auto) [place] % (Auto) Lymph # [place] # Seg Neutrophils % Seg Neuts % (Manual) Lymphocytes % (Manual) Seg Neutrophils # Seg Neutrophils # Man Lymphocytes # (Manual) POC ABG pH POC ABG pCO2 POC ABG pO2 Sodium Potassium 3.2 L 3.1 L Chloride 109.8 H 114.2 H Carbon Dioxide 17 L D BUN 21 H Creatinine Glucose 134 H 171 H POC Glucose Calcium 7.7 L 7.0 L Phosphorus 0.80 L* Magnesium Total Protein Albumin Lipase Free T4 10/25/18 10/26/18 10/26/18 06:07 02:58 04:57 WBC RBC Hgb Hct MCV 99 H MCH 33 H MCHC Plt Count Lymph % (Auto) [place] % (Auto) Lymph # [place] # Seg Neutrophils % Seg Neuts % (Manual) Lymphocytes % (Manual) Seg Neutrophils # Seg Neutrophils # Man Lymphocytes # (Manual) POC ABG pH 7.090 L 7.320 L POC ABG pCO2 65.0 H 32.8 L POC ABG pO2 76 L Sodium Potassium Chloride Carbon Dioxide BUN Creatinine Glucose POC Glucose Calcium Phosphorus Magnesium Total Protein Albumin Lipase Free T4 10/26/18 10/26/18 10/26/18 06:03 06:03 11:52 WBC 23.8 H RBC Hgb 15.4 H Hct 46.1 H D MCV MCH MCHC Plt Count Lymph % (Auto) [place] % (Auto) Lymph # [place] # Seg Neutrophils % Seg Neuts % (Manual) Lymphocytes % (Manual) Seg Neutrophils # Seg Neutrophils # Man Lymphocytes # (Manual) POC ABG pH POC ABG pCO2 POC ABG pO2 Sodium Potassium Chloride 109.5 H Carbon Dioxide 18 L BUN Creatinine Glucose 128 H POC Glucose 117 H Calcium 8.3 L D Phosphorus Magnesium Total Protein Albumin Lipase Free T4 10/26/18 10/26/18 10/26/18 13:54 17:10 17:32 WBC RBC Hgb Hct MCV MCH MCHC Plt Count Lymph % (Auto) [place] % (Auto) Lymph # [place] # Seg Neutrophils % Seg Neuts % (Manual) Lymphocytes % (Manual) Seg Neutrophils # Seg Neutrophils # Man Lymphocytes # (Manual) POC ABG pH 7.215 L POC ABG pCO2 31.8 L POC ABG pO2 69 L 204 H Sodium Potassium 3.0 L D Chloride 114.5 H Carbon Dioxide 21 L BUN Creatinine Glucose POC Glucose Calcium 7.6 L Phosphorus Magnesium 1.40 L Total Protein Albumin Lipase Free T4 10/26/18 10/27/18 10/27/18 23:13 00:40 01:09 WBC RBC Hgb Hct MCV MCH MCHC Plt Count Lymph % (Auto) [place] % (Auto) Lymph # [place] # Seg Neutrophils % Seg Neuts % (Manual) Lymphocytes % (Manual) Seg Neutrophils # Seg Neutrophils # Man Lymphocytes # (Manual) POC ABG pH POC ABG pCO2 POC ABG pO2 Sodium Potassium 3.4 L Chloride 115.0 H Carbon Dioxide 14 L D BUN Creatinine Glucose 228 H POC Glucose 48 L 264 H Calcium 7.1 L Phosphorus Magnesium Total Protein Albumin Lipase Free T4 10/27/18 10/27/18 10/27/18 05:00 05:00 05:16 WBC 22.5 H RBC Hgb 14.7 H Hct 44.4 H MCV MCH MCHC Plt Count Lymph % (Auto) [place] % (Auto) Lymph # [place] # Seg Neutrophils % Seg Neuts % (Manual) Lymphocytes % (Manual) Seg Neutrophils # Seg Neutrophils # Man Lymphocytes # (Manual) POC ABG pH 7.304 L POC ABG pCO2 POC ABG pO2 116 H Sodium Potassium Chloride 118.4 H Carbon Dioxide 16 L BUN Creatinine Glucose 123 H POC Glucose Calcium 7.7 L Phosphorus Magnesium 2.60 H Total Protein Albumin Lipase Free T4 10/28/18 10/28/18 10/28/18 04:25 04:25 15:37 WBC 23.5 H RBC Hgb Hct MCV MCH MCHC Plt Count Lymph % (Auto) [place] % (Auto) Lymph # [place] # Seg Neutrophils % Seg Neuts % (Manual) Lymphocytes % (Manual) Seg Neutrophils # Seg Neutrophils # Man Lymphocytes # (Manual) POC ABG pH POC ABG pCO2 POC ABG pO2 Sodium 147 H Potassium Chloride 116.9 H Carbon Dioxide 16 L BUN 23 H Creatinine Glucose POC Glucose 114 H Calcium 8.0 L Phosphorus Magnesium Total Protein Albumin Lipase Free T4 10/28/18 10/28/18 10/28/18 20:33 22:07 23:31 WBC RBC Hgb Hct MCV MCH MCHC Plt Count Lymph % (Auto) [place] % (Auto) Lymph # [place] # Seg Neutrophils % Seg Neuts % (Manual) Lymphocytes % (Manual) Seg Neutrophils # Seg Neutrophils # Man Lymphocytes # (Manual) POC ABG pH 7.202 L 7.235 L POC ABG pCO2 POC ABG pO2 71 L Sodium Potassium Chloride Carbon Dioxide BUN Creatinine Glucose POC Glucose 207 H Calcium Phosphorus Magnesium Total Protein Albumin Lipase Free T4 10/29/18 10/29/18 10/29/18 04:30 04:30 05:26 WBC 21.1 H RBC Hgb Hct MCV MCH MCHC Plt Count Lymph % (Auto) [place] % (Auto) Lymph # [place] # Seg Neutrophils % Seg Neuts % (Manual) 97.0 H Lymphocytes % (Manual) 3.0 L Seg Neutrophils # Seg Neutrophils # Man 20.5 H Lymphocytes # (Manual) 0.6 L POC ABG pH 7.305 L POC ABG pCO2 30.5 L POC ABG pO2 75 L Sodium 147 H Potassium 3.5 L Chloride 120.0 H Carbon Dioxide 17 L BUN 30 H Creatinine Glucose 246 H POC Glucose Calcium 7.9 L Phosphorus Magnesium Total Protein Albumin Lipase Free T4 10/29/18 10/29/18 10/29/18 05:36 11:39 18:00 WBC RBC Hgb Hct MCV MCH MCHC Plt Count Lymph % (Auto) [place] % (Auto) Lymph # [place] # Seg Neutrophils % Seg Neuts % (Manual) Lymphocytes % (Manual) Seg Neutrophils # Seg Neutrophils # Man Lymphocytes # (Manual) POC ABG pH POC ABG pCO2 POC ABG pO2 Sodium Potassium Chloride Carbon Dioxide BUN Creatinine Glucose POC Glucose 204 H 224 H 221 H Calcium Phosphorus Magnesium Total Protein Albumin Lipase Free T4 10/29/18 10/30/18 10/30/18 23:17 05:00 05:00 WBC 21.4 H RBC Hgb Hct MCV MCH MCHC Plt Count 134 L Lymph % (Auto) [place] % (Auto) Lymph # [place] # Seg Neutrophils % Seg Neuts % (Manual) 97.0 H Lymphocytes % (Manual) 3.0 L Seg Neutrophils # Seg Neutrophils # Man 20.8 H Lymphocytes # (Manual) 0.6 L POC ABG pH POC ABG pCO2 POC ABG pO2 Sodium 148 H Potassium 3.1 L Chloride 120.3 H Carbon Dioxide 18 L BUN 31 H Creatinine Glucose 205 H POC Glucose 181 H Calcium 8.0 L Phosphorus Magnesium Total Protein Albumin Lipase Free T4 10/30/18 10/30/18 10/30/18 05:14 05:25 05:26 WBC RBC Hgb Hct MCV MCH MCHC Plt Count Lymph % (Auto) [place] % (Auto) Lymph # [place] # Seg Neutrophils % Seg Neuts % (Manual) Lymphocytes % (Manual) Seg Neutrophils # Seg Neutrophils # Man Lymphocytes # (Manual) POC ABG pH 7.296 L 7.245 L POC ABG pCO2 31.1 L POC ABG pO2 54 L 59 L Sodium Potassium Chloride Carbon Dioxide BUN Creatinine Glucose POC Glucose 199 H Calcium Phosphorus Magnesium Total Protein Albumin Lipase Free T4 10/30/18 10/30/18 10/31/18 13:23 18:25 00:22 WBC RBC Hgb Hct MCV MCH MCHC Plt Count Lymph % (Auto) [place] % (Auto) Lymph # [place] # Seg Neutrophils % Seg Neuts % (Manual) Lymphocytes % (Manual) Seg Neutrophils # Seg Neutrophils # Man Lymphocytes # (Manual) POC ABG pH POC ABG pCO2 POC ABG pO2 Sodium Potassium Chloride Carbon Dioxide BUN Creatinine Glucose POC Glucose 146 H 158 H 162 H Calcium Phosphorus Magnesium Total Protein Albumin Lipase Free T4 10/31/18 10/31/18 10/31/18 04:39 05:14 07:05 WBC RBC Hgb Hct MCV MCH MCHC Plt Count Lymph % (Auto) [place] % (Auto) Lymph # [place] # Seg Neutrophils % Seg Neuts % (Manual) Lymphocytes % (Manual) Seg Neutrophils # Seg Neutrophils # Man Lymphocytes # (Manual) POC ABG pH 7.238 L POC ABG pCO2 POC ABG pO2 Sodium Potassium Chloride 115.8 H Carbon Dioxide 18 L BUN 39 H Creatinine 1.3 H Glucose 167 H POC Glucose 145 H Calcium 7.5 L Phosphorus 1.80 L Magnesium Total Protein Albumin Lipase Free T4 10/31/18 10/31/18 10/31/18 10:43 12:03 17:00 WBC RBC Hgb Hct MCV MCH MCHC Plt Count Lymph % (Auto) [place] % (Auto) Lymph # [place] # Seg Neutrophils % Seg Neuts % (Manual) Lymphocytes % (Manual) Seg Neutrophils # Seg Neutrophils # Man Lymphocytes # (Manual) POC ABG pH 7.304 L POC ABG pCO2 33.3 L POC ABG pO2 Sodium Potassium Chloride Carbon Dioxide BUN Creatinine Glucose POC Glucose 159 H Calcium Phosphorus Magnesium Total Protein Albumin Lipase Free T4 0.49 L 10/31/18 11/01/18 11/01/18 17:00 00:44 05:27 WBC RBC Hgb Hct MCV MCH MCHC Plt Count Lymph % (Auto) [place] % (Auto) Lymph # [place] # Seg Neutrophils % Seg Neuts % (Manual) Lymphocytes % (Manual) Seg Neutrophils # Seg Neutrophils # Man Lymphocytes # (Manual) POC ABG pH 7.248 L POC ABG pCO2 34.8 L POC ABG pO2 135 H Sodium Potassium Chloride Carbon Dioxide BUN Creatinine Glucose POC Glucose 127 H 118 H Calcium Phosphorus Magnesium Total Protein Albumin Lipase Free T4 11/01/18 11/01/18 11/01/18 06:40 06:40 06:53 WBC 18.9 H RBC 3.63 L Hgb Hct MCV MCH MCHC Plt Count 64 L Lymph % (Auto) [place] % (Auto) Lymph # [place] # Seg Neutrophils % Seg Neuts % (Manual) 98.0 H Lymphocytes % (Manual) 1.0 L Seg Neutrophils # Seg Neutrophils # Man 18.5 H Lymphocytes # (Manual) 0.2 L POC ABG pH POC ABG pCO2 POC ABG pO2 Sodium Potassium 3.5 L Chloride 114.2 H Carbon Dioxide 17 L BUN 49 H Creatinine Glucose 107 H POC Glucose 127 H Calcium 7.3 L Phosphorus Magnesium 1.60 L Total Protein Albumin Lipase Free T4 11/01/18 11/01/18 11/01/18 11:49 13:13 17:24 WBC RBC Hgb Hct MCV MCH MCHC Plt Count Lymph % (Auto) [place] % (Auto) Lymph # [place] # Seg Neutrophils % Seg Neuts % (Manual) Lymphocytes % (Manual) Seg Neutrophils # Seg Neutrophils # Man Lymphocytes # (Manual) POC ABG pH POC ABG pCO2 POC ABG pO2 182 H Sodium Potassium Chloride Carbon Dioxide BUN Creatinine Glucose POC Glucose 134 H 111 H Calcium Phosphorus Magnesium Total Protein Albumin Lipase Free T4 11/01/18 11/02/18 11/02/18 23:07 04:32 05:00 WBC RBC Hgb Hct MCV MCH MCHC Plt Count Lymph % (Auto) [place] % (Auto) Lymph # [place] # Seg Neutrophils % Seg Neuts % (Manual) Lymphocytes % (Manual) Seg Neutrophils # Seg Neutrophils # Man Lymphocytes # (Manual) POC ABG pH 7.244 L POC ABG pCO2 33.2 L POC ABG pO2 123 H Sodium Potassium 3.0 L Chloride 114.1 H Carbon Dioxide 15 L BUN 47 H Creatinine Glucose 127 H POC Glucose 123 H Calcium 7.7 L Phosphorus Magnesium Total Protein Albumin Lipase Free T4 11/02/18 11/02/18 11/02/18 05:00 05:29 11:27 WBC RBC Hgb Hct MCV MCH MCHC Plt Count Lymph % (Auto) [place] % (Auto) Lymph # [place] # Seg Neutrophils % Seg Neuts % (Manual) Lymphocytes % (Manual) Seg Neutrophils # Seg Neutrophils # Man Lymphocytes # (Manual) POC ABG pH POC ABG pCO2 POC ABG pO2 Sodium Potassium Chloride Carbon Dioxide BUN Creatinine Glucose POC Glucose 118 H 137 H Calcium Phosphorus Magnesium 1.60 L Total Protein Albumin Lipase Free T4 11/02/18 11/02/18 11/03/18 12:53 23:35 04:14 WBC RBC Hgb Hct MCV MCH MCHC Plt Count Lymph % (Auto) [place] % (Auto) Lymph # [place] # Seg Neutrophils % Seg Neuts % (Manual) Lymphocytes % (Manual) Seg Neutrophils # Seg Neutrophils # Man Lymphocytes # (Manual) POC ABG pH POC ABG pCO2 30.3 L POC ABG pO2 134 H 129 H Sodium Potassium Chloride Carbon Dioxide BUN Creatinine Glucose POC Glucose 115 H Calcium Phosphorus Magnesium Total Protein Albumin Lipase Free T4 11/03/18 11/03/18 11/03/18 05:34 11:30 11:30 WBC 16.4 H RBC 3.50 L Hgb Hct MCV MCH MCHC Plt Count 136 L D Lymph % (Auto) [place] % (Auto) Lymph # [place] # Seg Neutrophils % Seg Neuts % (Manual) 97.0 H Lymphocytes % (Manual) 2.0 L Seg Neutrophils # Seg Neutrophils # Man 15.9 H Lymphocytes # (Manual) 0.3 L POC ABG pH POC ABG pCO2 POC ABG pO2 Sodium Potassium 3.1 L Chloride 110.4 H Carbon Dioxide 17 L BUN 41 H Creatinine Glucose 129 H POC Glucose 116 H Calcium 7.7 L Phosphorus Magnesium 1.60 L Total Protein 4.2 L Albumin 1.2 L Lipase Free T4 11/03/18 11/03/18 11/03/18 12:01 17:35 21:37 WBC RBC Hgb Hct MCV MCH MCHC Plt Count Lymph % (Auto) [place] % (Auto) Lymph # [place] # Seg Neutrophils % Seg Neuts % (Manual) Lymphocytes % (Manual) Seg Neutrophils # Seg Neutrophils # Man Lymphocytes # (Manual) POC ABG pH POC ABG pCO2 POC ABG pO2 Sodium Potassium Chloride Carbon Dioxide BUN Creatinine Glucose POC Glucose 132 H 132 H 126 H Calcium Phosphorus Magnesium Total Protein Albumin Lipase Free T4 11/03/18 11/04/18 11/04/18 23:30 05:14 05:15 WBC RBC Hgb Hct MCV MCH MCHC Plt Count Lymph % (Auto) [place] % (Auto) Lymph # [place] # Seg Neutrophils % Seg Neuts % (Manual) Lymphocytes % (Manual) Seg Neutrophils # Seg Neutrophils # Man Lymphocytes # (Manual) POC ABG pH POC ABG pCO2 30.9 L POC ABG pO2 192 H Sodium Potassium Chloride Carbon Dioxide BUN Creatinine Glucose POC Glucose 115 H 123 H Calcium Phosphorus Magnesium Total Protein Albumin Lipase Free T4 11/04/18 11/04/18 11/04/18 09:39 09:39 11:43 WBC 15.2 H RBC 3.18 L Hgb Hct 29.9 L MCV MCH MCHC Plt Count Lymph % (Auto) [place] % (Auto) Lymph # [place] # Seg Neutrophils % Seg Neuts % (Manual) 98.0 H Lymphocytes % (Manual) 1.0 L Seg Neutrophils # Seg Neutrophils # Man 14.9 H Lymphocytes # (Manual) 0.2 L POC ABG pH POC ABG pCO2 POC ABG pO2 Sodium 135 L D Potassium Chloride 109.5 H Carbon Dioxide 16 L BUN 46 H Creatinine Glucose 136 H POC Glucose 138 H Calcium 8.0 L Phosphorus Magnesium Total Protein Albumin Lipase Free T4 11/04/18 11/04/18 11/05/18 17:31 23:42 05:23 WBC RBC Hgb Hct MCV MCH MCHC Plt Count Lymph % (Auto) [place] % (Auto) Lymph # [place] # Seg Neutrophils % Seg Neuts % (Manual) Lymphocytes % (Manual) Seg Neutrophils # Seg Neutrophils # Man Lymphocytes # (Manual) POC ABG pH POC ABG pCO2 POC ABG pO2 Sodium Potassium Chloride Carbon Dioxide BUN Creatinine Glucose POC Glucose 139 H 138 H 148 H Calcium Phosphorus Magnesium Total Protein Albumin Lipase Free T4 11/05/18 11/05/18 11/05/18 05:30 05:30 11:46 WBC 14.2 H RBC 3.12 L Hgb 10.0 L Hct 29.1 L MCV MCH MCHC Plt Count Lymph % (Auto) [place] % (Auto) Lymph # [place] # Seg Neutrophils % Seg Neuts % (Manual) Lymphocytes % (Manual) Seg Neutrophils # Seg Neutrophils # Man Lymphocytes # (Manual) POC ABG pH POC ABG pCO2 POC ABG pO2 Sodium Potassium Chloride Carbon Dioxide 21 L BUN 42 H Creatinine Glucose 125 H POC Glucose 157 H Calcium 7.9 L Phosphorus Magnesium Total Protein Albumin Lipase Free T4 11/05/18 11/05/18 11/05/18 17:09 20:03 23:43 WBC RBC Hgb Hct MCV MCH MCHC Plt Count Lymph % (Auto) [place] % (Auto) Lymph # [place] # Seg Neutrophils % Seg Neuts % (Manual) Lymphocytes % (Manual) Seg Neutrophils # Seg Neutrophils # Man Lymphocytes # (Manual) POC ABG pH POC ABG pCO2 POC ABG pO2 76 L Sodium Potassium Chloride Carbon Dioxide BUN Creatinine Glucose POC Glucose 142 H 204 H Calcium Phosphorus Magnesium Total Protein Albumin Lipase Free T4 11/06/18 11/06/18 11/06/18 04:21 12:14 17:17 WBC RBC Hgb Hct MCV MCH MCHC Plt Count Lymph % (Auto) [place] % (Auto) Lymph # [place] # Seg Neutrophils % Seg Neuts % (Manual) Lymphocytes % (Manual) Seg Neutrophils # Seg Neutrophils # Man Lymphocytes # (Manual) POC ABG pH POC ABG pCO2 POC ABG pO2 Sodium 133 L Potassium Chloride Carbon Dioxide 18 L BUN 47 H Creatinine Glucose 187 H POC Glucose 232 H 199 H Calcium 7.8 L Phosphorus 5.30 H D Magnesium 2.50 H Total Protein Albumin Lipase Free T4 11/06/18 11/06/18 11/07/18 19:46 23:30 00:00 WBC RBC Hgb Hct MCV MCH MCHC Plt Count Lymph % (Auto) [place] % (Auto) Lymph # [place] # Seg Neutrophils % Seg Neuts % (Manual) Lymphocytes % (Manual) Seg Neutrophils # Seg Neutrophils # Man Lymphocytes # (Manual) POC ABG pH 7.317 L POC ABG pCO2 50.3 H POC ABG pO2 58 L 57 L Sodium Potassium Chloride Carbon Dioxide BUN Creatinine Glucose POC Glucose 224 H Calcium Phosphorus Magnesium Total Protein Albumin Lipase Free T4 11/07/18 11/07/18 11/07/18 04:55 04:55 05:46 WBC 25.2 H RBC 3.64 L Hgb Hct MCV MCH MCHC Plt Count Lymph % (Auto) [place] % (Auto) Lymph # [place] # Seg Neutrophils % Seg Neuts % (Manual) Lymphocytes % (Manual) Seg Neutrophils # Seg Neutrophils # Man Lymphocytes # (Manual) POC ABG pH POC ABG pCO2 POC ABG pO2 Sodium Potassium Chloride Carbon Dioxide BUN 54 H Creatinine Glucose 270 H POC Glucose 266 H Calcium 7.9 L Phosphorus 5.00 H Magnesium Total Protein Albumin Lipase Free T4 11/07/18 08:08 WBC RBC Hgb Hct MCV MCH MCHC Plt Count Lymph % (Auto) [place] % (Auto) Lymph # [place] # Seg Neutrophils % Seg Neuts % (Manual) Lymphocytes % (Manual) Seg Neutrophils # Seg Neutrophils # Man Lymphocytes # (Manual) POC ABG pH POC ABG pCO2 47.6 H POC ABG pO2 106 H Sodium Potassium Chloride Carbon Dioxide BUN Creatinine Glucose POC Glucose Calcium Phosphorus Magnesium Total Protein Albumin Lipase Free T4 Allied health notes reviewed: nursing
[2018-11-07] MEDS ORDERED: VASELINE LIP THERAPY TP PRN (09:14)
[2018-11-07] MEDS ORDERED: ARTIFICIAL TEARS OPHTH OINT OU PRN (09:14)
[2018-11-07] MEDS ORDERED: SUBLIMAZE IV PRN (09:18)
--- NOTE | 2018-11-07 09:44 | XRay Report ---
AP CHEST: HISTORY: Intubation for hypoxic respiratory failure An endotracheal tube has been inserted which terminates 3 cm superior to the rekha. Right venous catheter and nasogastric tube remain in good position. Mild bilateral congestive changes and small pleural effusions are suspected. Partial atelectasis in the lower lobes is also suspected. The upper lungs are clear. Heart size is within normal limits. IMPRESSION: Adequate placement of the endotracheal tube. Pulmonary venous congestion, small pleural effusions and bibasilar atelectatic changes.
[2018-11-07] MEDS: LOPRESSOR IV SCH ×3 (10:00→20:38)
[2018-11-07] MEDS: SODIUM CHLORIDE FLUSH SYRINGE 10 ML IV SCH (10:09)
--- NOTE | 2018-11-07 10:30 | Progress Note ---
Assessment and Plan Pt was reintubated this morning. Cont present cardiac management. Will follow peripherally over the weekend. The patient has been seen in conjunction with Dr. Mas who agrees with the assessment and plan of care. - Patient Problems (1) Atrial tachycardia, paroxysmal Current Visit: Yes Status: Acute (2) Tachy-adama syndrome Current Visit: Yes Status: Acute (3) Acute respiratory failure Current Visit: Yes Status: Acute (4) Perforated gastric ulcer Current Visit: Yes Status: Acute (5) Intractable nausea and vomiting Current Visit: Yes Status: Acute (6) Partial small bowel obstruction Current Visit: Yes Status: Acute (7) COPD (chronic obstructive pulmonary disease) Current Visit: Yes Status: Chronic (8) History of hypertension Current Visit: Yes Status: Chronic (9) ADWOA (acute kidney injury) Current Visit: Yes Status: Acute (10) Hypokalemia Current Visit: Yes Status: Acute Subjective Date of service: 11/07/18 Principal diagnosis: low plt Interval history: pt reintubated this morning, in SR/ST on tele. Objective Last Vital Signs Temp 97.6 F 11/07/18 04:00 Pulse 110 H 11/07/18 09:10 Resp 41 H 11/07/18 08:02 BP 137/50 11/07/18 09:10 Pulse Ox 99 11/07/18 09:10 - Physical Examination General: Other (intubated) Neck: Positive: neck supple, trachea midline Cardiac: Positive: Reg Rate and Rhythm, S1/S2 Lungs: Positive: Decreased Breath Sounds, Rhonchi, Ventilated Respirations Neuro: Positive: Other (intubated) Skin: Negative: Rash Musculoskeletal: No Pain Extremities: Absent: edema - Labs and Meds CBC 11/07/18 Range/Units 04:55 WBC 25.2 H (4.5-11.0) K/mm3 RBC 3.64 L (3.65-5.03) M/mm3 Hgb 11.4 (10.1-14.3) gm/dl Hct 34.1 (30.3-42.9) % Plt Count 227 (140-440) K/mm3 Comprehensive Metabolic Panel 11/07/18 Range/Units 04:55 Sodium 141 D (137-145) mmol/L Potassium 4.4 (3.6-5.0) mmol/L Chloride 101.0 (98-107) mmol/L Carbon Dioxide 26 D (22-30) mmol/L BUN 54 H (7-17) mg/dL Creatinine 0.8 (0.7-1.2) mg/dL Glucose 270 H (65-100) mg/dL Calcium 7.9 L (8.4-10.2) mg/dL - Imaging and Cardiology EKG: report reviewed, image reviewed Echo: report reviewed (EF 50%, trace TR, minimal pericardial effusion. ) - EKG Sinus rhythms and dysrhythmias: sinus rhythm - Allied health notes Allied health notes reviewed: nursing
--- NOTE | 2018-11-07 10:58 | Progress Note ---
Assessment and Plan Cultures: Blood cultures 10/22/2018 no growth so far. Tracheal asp cultures 10/28/2018: E.coli and Stenotrophomonas. 10/30/2018 blood culture: Ayla non albicans 11/03/2018 fungal blood culture: no growth thus far Assessment: 73 y/o female with history of COPD, hypertension, lupus, fibromyalgia, opioid dependence admitted on 10/22/2018 due to 3-day history of intractable nausea, vomiting, diarrhea: 1) SIRS v/s sepsis: Etiology most likely aspiration pneumonia +/- intra- abdominal source from contained gastric perforation, now also with Candidemia. 2) Candidemia: in the setting of TPN and PICC line. PICC removed. Has temporary central line. TTE not optimal quality, will need LAUREN only if repeat fungal blood cultures are positive. Continue IV Micafungin and f/u fungal blood cultures. 3) Acute respiratory failure: pneumonia and fluid overload. Extubated 11/05/2018 and now reintubated 11/07/2018. 4) Presumed aspiration pneumonia v/s HAP: Tracheal asp cultures 10/28/2018 with E.coli and Stenotrophomonas. Stenotrophomonas is a known colonizer in patients with structural lung disease or tracheostomy tubes/ET tubes, not generally considered very virulent. Given her prolonged and complicated hospital stay, will complete a 10 day course of abx. 5) Ileus v/s partial SBO and contained gastric perforation: Gen Surgery following. Planned for conservative management, trickle feeds and TPN. 6) ADWOA: improved. Recommendations: - primary etiology for respiratory failure seems anasarca/fluid overload - Levofloxacin to cover for Stenotrophomonas, complete 10 days total, today is day 8. Off Cefepime and Flagyl - continue IV Micafungin, duration of antifungals will be 14 days from negative cultures - follow up ID on Ayla species (non-albicans) - monitor WBC Phong Joy MD [facility] C: [phone] O: [phone] F: [phone] Subjective Date of service: 11/07/18 Principal diagnosis: low plt Interval history: Intubated due to respiratory distress. Remains on TPN. No fever. Discussed with at bedside. Objective - Exam Narrative Exam: Physical Exam: Constitutional: sedated, intubated Head, Ears, Nose: Normocephalic, atraumatic. External ears, nose normal Eyes: Conjunctivae/corneas clear. No icterus. No ptosis. Neck: intubated. central line + Oral: intubated Cardiovascular: S1, S2 normal, no murmur heard Respiratory: bilateral rhonchi + GI: Soft, non-tender; bowel sounds hypoactive, No peritoneal signs Musculoskeletal: anasarca + Skin: No rash or abscess Hem/Lymphatic: No palpable cervical or supraclavicular nodes. No lymphangitis Psych: sedated Neurological: sedated - Constitutional Vitals: Vital Signs Temp Pulse Resp BP Pulse Ox 97.6 F 110 H 41 H 137/50 99 11/07/18 04:00 11/07/18 09:10 11/07/18 08:02 11/07/18 09:10 11/07/18 09:10 Temperature -Last 24 Hours Temperature 97.6 F Temperature 98.2 F Temperature 94.6 F Temperature 97.3 F Temperature 97.4 F Temperature 97.7 F - Labs CBC & Chem 7: 11/07/18 04:55 11/07/18 04:55 Labs: Abnormal lab results 11/06/18 11/06/18 11/06/18 Range/Units 12:14 17:17 19:46 WBC (4.5-11.0) K/mm3 RBC (3.65-5.03) M/mm3 POC ABG pH (7.35-7.45) POC ABG pCO2 (35-45) POC ABG pO2 58 L (80-105) BUN (7-17) mg/dL Glucose (65-100) mg/dL POC Glucose 232 H 199 H (70-105) Calcium (8.4-10.2) mg/dL Phosphorus (2.5-4.5) mg/dL 11/06/18 11/07/18 11/07/18 Range/Units 23:30 00:00 04:55 WBC (4.5-11.0) K/mm3 RBC (3.65-5.03) M/mm3 POC ABG pH 7.317 L (7.35-7.45) POC ABG pCO2 50.3 H (35-45) POC ABG pO2 57 L (80-105) BUN 54 H (7-17) mg/dL Glucose 270 H (65-100) mg/dL POC Glucose 224 H (70-105) Calcium 7.9 L (8.4-10.2) mg/dL Phosphorus 5.00 H (2.5-4.5) mg/dL 11/07/18 11/07/18 11/07/18 Range/Units 04:55 05:46 08:08 WBC 25.2 H (4.5-11.0) K/mm3 RBC 3.64 L (3.65-5.03) M/mm3 POC ABG pH (7.35-7.45) POC ABG pCO2 47.6 H (35-45) POC ABG pO2 106 H (80-105) BUN (7-17) mg/dL Glucose (65-100) mg/dL POC Glucose 266 H (70-105) Calcium (8.4-10.2) mg/dL Phosphorus (2.5-4.5) mg/dL - Imaging and cardiology Chest x-ray: report reviewed, image reviewed (bilateral fluid overload)
[2018-11-07] MEDS: PROTONIX IV SCH (11:00)
[2018-11-07] MEDS: MYCAMINE 100 MG in NACL 0.9% 100 ML IV SCH (11:27)
--- NOTE | 2018-11-07 11:46 | Progress Note ---
Assessment and Plan Assessment and plan: Patient is 73-year-old female with history of hypertension, lupus, fibromyalgia, COPD, opioid dependence (follows Dr. Felix Muñiz at pain clinic) who presented to [facility] ED with complaints of intractable nausea, vomiting, diarrhea for 3 days. On initial presentation to the ED she was found to be tachycardiac with heart rate 113 BPM, leukocytosis with WBC 11.5, elevated BUN/Cr 51/2.1. Patient has history of COPD and at baseline does not require home oxygen use. She was admitted to [facility]. GI was consulted, she was evaluated. CT Abdomen revealed partial SBO versus ileus therefore surgeon consulted. Also patient became more short of breath, placed on BIPAP with no improvement then intubated 10/26/18 for acute resp failure and transferred to ICU. Obstruction series completed on 10/27 which showed improved but small bowel and stomach dilatation. Follow-up series on 10/28 showed no significant change since previous study. NG tube was removed due to patient not tolerating/refusing. Patient was placed back on BiPAP but decompensated on the night of 10/28/18 and had to be reintubated. Patient currently on mechanical ventilation. Patient has had further complications now with findings consistent with contained gastric perforation on repeat CT scan 10/30. Also, patient has cultures that were positive and consistent with fungemia. Gastric perforation. Repeat CT scan on 10/30 revealed pSBO resolved, no evidence for bowel ischemia. Small contained gastric perforation at lesser curve. No gross free air or contrast extravasation. Surgery recommends conservative management with continuing NGT, NPO, gentle IVF and when necessary pain control. Will reimage stomach when pulm status is more stable to make sure there is no leak. Sepsis/fungemia. Continue antibiotics/antifungals and follow cultures. ID following. May need to switch off PICC to other access, hold IV nutrition ? Thrombocytopenia. Etiology likely secondary to sepsis. Hematology following. Bilateral upper lobe/aspiration pneumonia. Sputum culture positive for Escherichia coli and stenotrophomonas. Continue antibiotics per ID. Partial small bowel obstruction. Continue NGT per surgery. Acute exacerbation COPD. Scheduled Duo Nebs and Pulmicort; albuterol when necessary Acute hypoxic respiratory failure. Patient was reintubated on 10/28/18, Etiology secondary to COPD/pneumonia/sepsis. Extubated 11/05. Currently patient with respiratory disturbance. She is also very lethargic and minimal responsive. Will need re-intubation Toxic metabolic encephalopathy Hypokalemia. Replete potassium. Hyponatremia. Repeat in am Hypertension. IV hydralazine when necessary Lupus. Supportive care Fibromyalgia. supportive care History of opioid dependence ADWOA due to vasomotor nephropathy, now resolved Full code status The high probability of a clinically significant, sudden or life threatening deterioration of the [GI and respiratory] system(s) required my full and direct attention, intervention and personal management. The aggregate critical care time was [35] minutes. This time is in addition to time spent performing reported procedures but includes the following: [x] Data Review and interpretation [x] Patient assessment and monitoring of vital signs [x] Documentation [x] Medication orders and management History Interval history: Extubated 11/05/18 Shortness of breath, resp distress, put on BIPAP no fever Hospitalist Physical - Physical exam Narrative exam: Gen: In respiratory distress, on BIPAP HEENT: Normocephalic, atraumatic, NG tube Neck: supple, no JVD Heart: S1 and S2 reg, no murmurs, rubs or gallop Lungs: Clear bilat, decreased breath sounds bilat. no wheeze Abd: soft, mild tender, no rebound tenderness, non distended, BS present Ext: No edema, no clubbing, no cyanosis, Neuro: Lethargic, minimal responsive, - Constitutional Vitals: Temp Pulse Resp BP Pulse Ox 97.6 F 110 H 41 H 137/50 99 11/07/18 04:00 11/07/18 09:10 11/07/18 08:02 11/07/18 09:10 11/07/18 09:10 General appearance: Present: other (intubated, opens eyes to commands) Results - Labs CBC & Chem 7: 11/07/18 04:55 11/07/18 04:55 Labs: Laboratory Last Values WBC 25.2 K/mm3 (4.5-11.0) H 11/07/18 04:55 RBC 3.64 M/mm3 (3.65-5.03) L 11/07/18 04:55 Hgb 11.4 gm/dl (10.1-14.3) 11/07/18 04:55 Hct 34.1 % (30.3-42.9) 11/07/18 04:55 MCV 94 fl (79-97) 11/07/18 04:55 MCH 31 pg (28-32) 11/07/18 04:55 MCHC 34 % (30-34) 11/07/18 04:55 RDW 14.8 % (13.2-15.2) 11/07/18 04:55 Plt Count 227 K/mm3 (140-440) 11/07/18 04:55 Lymph % (Auto) 10.2 % (13.4-35.0) L 10/23/18 04:32 Rogers % (Auto) 14.7 % (0.0-7.3) H 10/23/18 04:32 Eos % (Auto) 0.1 % (0.0-4.3) 10/23/18 04:32 Baso % (Auto) 0.1 % (0.0-1.8) 10/23/18 04:32 Lymph # 0.7 K/mm3 (1.2-5.4) L 10/23/18 04:32 Rogers # 1.0 K/mm3 (0.0-0.8) H 10/23/18 04:32 Eos # 0.0 K/mm3 (0.0-0.4) 10/23/18 04:32 Baso # 0.0 K/mm3 (0.0-0.1) 10/23/18 04:32 Add Manual Diff Complete 11/04/18 09:39 Total Counted 100 11/04/18 09:39 Seg Neutrophils % Eyeglass Inspector 11/04/18 09:39 Seg Neuts % (Manual) 98.0 % (40.0-70.0) H 11/04/18 09:39 0 % 11/04/18 09:39 1.0 % (13.4-35.0) L 11/04/18 09:39 Reactive Lymphs % (Man) 0 % 11/04/18 09:39 0 % (0.0-7.3) 11/04/18 09:39 1.0 % (0.0-4.3) 11/04/18 09:39 0 % (0.0-1.8) 11/04/18 09:39 0 % 11/04/18 09:39 0 % 11/04/18 09:39 0 % 11/04/18 09:39 0 % 11/04/18 09:39 Nucleated RBC % Not Reportable 11/04/18 09:39 Seg Neutrophils # 5.2 K/mm3 (1.8-7.7) 10/23/18 04:32 Seg Neutrophils # Man 14.9 K/mm3 (1.8-7.7) H 11/04/18 09:39 Band Neutrophils # 0.0 K/mm3 11/04/18 09:39 0.2 K/mm3 (1.2-5.4) L 11/04/18 09:39 Abs React Lymphs (Man) 0.0 K/mm3 11/04/18 09:39 0.0 K/mm3 (0.0-0.8) 11/04/18 09:39 0.2 K/mm3 (0.0-0.4) 11/04/18 09:39 0.0 K/mm3 (0.0-0.1) 11/04/18 09:39 0.0 K/mm3 11/04/18 09:39 0.0 K/mm3 11/04/18 09:39 0.0 K/mm3 11/04/18 09:39 Blast Cells # 0.0 K/mm3 11/04/18 09:39 WBC Morphology Not Reportable 11/04/18 09:39 Hypersegmented Neuts Not Reportable 11/04/18 09:39 Hyposegmented Neuts Not Reportable 11/04/18 09:39 Hypogranular Neuts Not Reportable 11/04/18 09:39 Not Reportable 11/04/18 09:39 Not Reportable 11/04/18 09:39 Not Reportable 11/04/18 09:39 Not Reportable 11/04/18 09:39 Not Reportable 11/04/18 09:39 Not Reportable 11/04/18 09:39 Consistent w auto 11/04/18 09:39 Not Reportable 11/04/18 09:39 Plt Clumps, EDTA Not Reportable 11/04/18 09:39 Not Reportable 11/04/18 09:39 Not Reportable 11/04/18 09:39 Not Reportable 11/04/18 09:39 Plt Morphology Comment Not Reportable 11/04/18 09:39 RBC Morphology Normal 11/04/18 09:39 Dimorphic RBCs Not Reportable 11/04/18 09:39 Not Reportable 11/04/18 09:39 Not Reportable 11/04/18 09:39 Not Reportable 11/04/18 09:39 Not Reportable 11/04/18 09:39 Not Reportable 11/04/18 09:39 Not Reportable 11/04/18 09:39 Not Reportable 11/04/18 09:39 Not Reportable 11/04/18 09:39 Not Reportable 11/04/18 09:39 Not Reportable 11/04/18 09:39 Not Reportable 11/04/18 09:39 Not Reportable 11/04/18 09:39 Not Reportable 11/04/18 09:39 Not Reportable 11/04/18 09:39 Not Reportable 11/04/18 09:39 Not Reportable 11/04/18 09:39 Not Reportable 11/04/18 09:39 Not Reportable 11/04/18 09:39 Not Reportable 11/04/18 09:39 Acanthocytes (Spur) Not Reportable 11/04/18 09:39 Rouleaux Not Reportable 11/04/18 09:39 Not Reportable 11/04/18 09:39 Not Reportable 11/04/18 09:39 Not Reportable 11/04/18 09:39 Not Reportable 11/04/18 09:39 Hem Pathologist Commnt No 11/04/18 09:39 Heparin Anti-Xa, Unfract Negative (Negative) 10/30/18 13:58 POC ABG pH 7.368 (7.35-7.45) 11/07/18 08:08 POC ABG pCO2 47.6 (35-45) H 11/07/18 08:08 POC ABG pO2 106 (80-105) H 11/07/18 08:08 POC ABG HCO3 27.4 (22-26 mml/L) 11/07/18 08:08 POC ABG Total CO2 29 (23-27mmol/L) 11/07/18 08:08 POC ABG O2 Sat 98 11/07/18 08:08 POC ABG Base Excess 2 ((-2) - (+3)mmol/L) 11/07/18 08:08 40 % 11/07/18 08:08 Sodium 141 mmol/L (137-145) D 11/07/18 04:55 Potassium 4.4 mmol/L (3.6-5.0) 11/07/18 04:55 Chloride 101.0 mmol/L (98-107) 11/07/18 04:55 Carbon Dioxide 26 mmol/L (22-30) D 11/07/18 04:55 18 mmol/L 11/07/18 04:55 BUN 54 mg/dL (7-17) H 11/07/18 04:55 0.8 mg/dL (0.7-1.2) 11/07/18 04:55 Estimated GFR > 60 ml/min 11/07/18 04:55 68 % 11/07/18 04:55 Glucose 270 mg/dL (65-100) H 11/07/18 04:55 POC Glucose 266 (70-105) H 11/07/18 05:46 Lactic Acid 1.60 mmol/L (0.7-2.0) 10/26/18 15:03 Calcium 7.9 mg/dL (8.4-10.2) L 11/07/18 04:55 Phosphorus 5.00 mg/dL (2.5-4.5) H 11/07/18 04:55 Magnesium 2.30 mg/dL (1.7-2.3) 11/07/18 04:55 0.30 mg/dL (0.1-1.2) 11/03/18 11:30 AST 14 units/L (5-40) 11/03/18 11:30 ALT 17 units/L (7-56) 11/03/18 11:30 51 units/L (35-129) 11/03/18 11:30 4.2 g/dL (6.3-8.2) L 11/03/18 11:30 1.2 g/dL (3.9-5) L 11/03/18 11:30 0.4 % 11/03/18 11:30 Triglycerides 132 mg/dL (2-149) 11/01/18 06:40 10 units/L (13-60) L 10/22/18 15:54 See scanned result 10/30/18 13:58 TSH 3.150 mlU/mL (0.270-4.200) 10/31/18 17:00 Free T4 0.49 ng/dL (0.76-1.46) L 10/31/18 17:00 Dulce (Yellow) 10/22/18 19:10 Clear (Clear) 10/22/18 19:10 5.0 (5.0-7.0) 10/22/18 19:10 Ur Specific [place] 1.018 (1.003-1.030) 10/22/18 19:10 30 mg/dl mg/dL (Negative) 10/22/18 19:10 Neg mg/dL (Negative) 10/22/18 19:10 Tr mg/dL (Negative) 10/22/18 19:10 Neg (Negative) 10/22/18 19:10 Neg (Negative) 10/22/18 19:10 Neg (Negative) 10/22/18 19:10 < 2.0 mg/dL (<2.0) 10/22/18 19:10 Ur Leukocyte Esterase Neg (Negative) 10/22/18 19:10 1.0 /HPF (0.0-6.0) 10/22/18 19:10 3.0 /HPF (0.0-6.0) 10/22/18 19:10 Heparin-induced Plt Ab Negative (Negative) 10/30/18 13:58 UF Heparin High Dose 0 % Release 10/30/18 13:58 KIMO UFH Low Dose 0.1 0 % Release 10/30/18 13:58 KIMO UFH Low Dose 0.5 0 % Release 10/30/18 13:58 Active Medications - Current Medications Current Medications: Generic Name Dose Route Start Last Admin Trade Name Freq PRN Reason Stop Dose Admin Acetaminophen 650 mg 10/22/18 20:10 Tylenol PO Q4H PRN Pain MILD(1-3)/Fever >100.5/PORTER Albuterol 2.5 mg 10/22/18 20:14 11/05/18 16:35 Proventil IH 2.5 mg Q4HRT PRN Administration Shortness Of Breath Lipase/Protease/Amylase 1 each 11/05/18 10:13 Pancremaranda Simpson 10,500 Unit FEEDTUBE PRN PRN For Clogged Feeding Tube Arformoterol Tartrate 15 mcg 11/05/18 20:00 11/07/18 07:51 Brovana Nebu IH 15 mcg Q12HRT RICK Administration Budesonide 0.5 mg 10/23/18 08:00 11/07/18 07:51 Pulmicort IH 0.5 mg Q12HRT RICK Administration Dextrose 50 ml 10/26/18 23:40 10/27/18 00:20 D50w (25gm) Syringe IV 50 ml PRN PRN Administration Hypoglycemia Enoxaparin Sodium 40 mg 11/05/18 22:00 11/06/18 21:31 Lovenox SUB-Q 40 mg QDAY@2200 RICK Administration Fentanyl 50 mcg 11/07/18 09:18 Sublimaze IV Q2H PRN Pain , Severe (7-10) Hydralazine HCl 10 mg 10/22/18 21:41 11/07/18 00:04 Apresoline IV 10 mg Q4HR PRN Administration Blood Pressure Hydrophilic Ointment 1 applic 11/07/18 09:14 Vaseline Lip Therapy TP Q2HR PRN Dry Lips Micafungin Sodium 100 mg/ 100 mls @ 100 mls/hr 11/02/18 10:00 11/07/18 11:27 Sodium Chloride IV 100 mls/hr QDAY RICK Administration Protocol Amino Acids/Electrolytes/Dextrose 2,400 mls @ 100 mls/hr 11/06/18 20:00 11/06/18 20:07 Tpn Adult IV 11/07/18 19:59 100 mls/hr DAILY@1999 [facility] Administration Protocol Levofloxacin/Dextrose 500 mg in 100 mls @ 100 mls/hr 11/07/18 12:00 Levaquin 500mg/100ml IV 11/10/18 11:59 Q24HR RICK Protocol Amino Acids/Electrolytes/Dextrose 2,400 mls @ 100 mls/hr 11/07/18 20:00 Tpn Adult IV 11/08/18 19:59 DAILY@1999 [facility] Protocol Insulin Human Lispro 0 unit 10/29/18 12:00 11/07/18 06:26 Humalog SUB-Q 4 unit Q6HR [facility] Administration Protocol Lorazepam 1 mg 11/06/18 11:00 11/06/18 22:10 Ativan IV 1 mg Q6H PRN Administration Anxiety Methylprednisolone Sodium Succinate 60 mg 11/07/18 12:00 Solu-Medrol IV Q6HR [facility] Metoprolol Tartrate 5 mg 10/31/18 14:00 11/06/18 20:00 Lopressor IV 5 mg TID RICK Administration Multi-Ingred Cream/Lotion/Oil/Oint 1 applic 11/07/18 09:14 Artificial Tears Ophth Oint OU Q4HR PRN Dry Eye(s) Ondansetron HCl 4 mg 10/24/18 10:05 10/25/18 17:26 Zofran IV 4 mg Q6H PRN Administration Nausea And Vomiting Oxycodone/Acetaminophen 1 tab 11/05/18 11:16 Percocet 5/325 PO Q6H PRN Pain, Moderate (4-6) Pantoprazole Sodium 40 mg 11/05/18 10:00 11/06/18 09:32 Protonix IV 40 mg DAILY RICK Administration Phenol 1 spray 10/28/18 10:16 Chloraseptic MM PRN PRN Sore Throat Promethazine HCl 25 mg 10/22/18 20:10 10/22/18 21:21 Phenergan AK 25 mg Q6H PRN Administration Nausea And Vomiting Simple Syrup 15 ml 11/05/18 10:13 Simple Syrup FEEDTUBE PRN PRN Hypoglycemia Simple Syrup 30 ml 11/05/18 10:13 Simple Syrup FEEDTUBE PRN PRN Hypoglycemia Sodium Bicarbonate 325 mg 11/05/18 10:13 Sodium Bicarbonate FEEDTUBE PRN PRN For Clogged Feeding Tube Sodium Chloride 10 ml 10/22/18 22:00 11/06/18 21:31 Sodium Chloride Flush Syringe 10 Ml IV 10 ml BID RICK Administration Sodium Chloride 10 ml 10/22/18 20:10 10/24/18 18:32 Sodium Chloride Flush Syringe 10 Ml IV 10 ml PRN PRN Administration LINE FLUSH Nutrition/Malnutrition Assess - Dietary Evaluation Nutrition/Malnutrition Findings: Nutrition Notes Start: 10/23/18 17:03 Freq: Status: Active Protocol: Document 11/06/18 12:03 LP (Rec: 11/06/18 12:09 LP [id number]) Nutrition Notes Initial or Follow up Reassessment Current Diagnosis COPD,Sepsis,Hypertension Other Pertinent Diagnosis Gastric peforation, partial SBO, lupus, opiod dependence, SIRS Current Diet PPN at 100 ml/hr Labs/Tests Reviewed Pertinent Medications Reviewed Height 5 ft 3 in Weight 68 kg [place] Body Weight (kg) 52.27 BMI 26.5 Subjective/Other Information Pt continues on PPN day 7. held TF yesterday and will start TF today. Percent of energy/protein needs met: 43%/100% Burn Absent Trauma Absent #1 Nutrition Diagnosis Inadequate oral intake Diagnosis Progress(for reassessment Continues documentation) Is patient on ventilator? No Is Patient Ambulatory and/or Out of Bed No REE-([facility]-confined to bed) 1397.052 Kcal/Kg value to use for calculation 25 Approximate Energy Requirements Using 1700 kcal/Kg Calculation Used for Recommendations Kcal/kg Additional Notes Protein needs are 58-96g (1.2- 2g/kg) Fluid needs are 1ml/kcal Nutrition Intervention Change Diet Order: PPN and TF Nutrition Support: PPN at 100 72mEq K, 14mEq Mg, 19mmol phos Osmolality:768 TF Vital 1.2 at 10ml/hr and continue Flush with 50ml q12h Kcal 728 Protein (gm) 80 Carbohydrates (gm) 120 Fat (gm) 0 Fluid (mL) 2,400 Fiber (gm) 0 Goal #1 Meet kcal and protein needs as best as possible Goal #2 Tolerate trophic feeds Anticipated Discharge Needs: Unable to determine at this time Follow-Up By: 11/07/18 Additional Comments Labs in AM: BMP, Mg, Phos Follow for TF start/tolerance
[2018-11-07] MEDS: LEVAQUIN 500MG/100ML 500 MG/100 ML BAG IV SCH (13:00)
[2018-11-07] MEDS ORDERED: SUBLIMAZE ONE (14:46)
[2018-11-07] MEDS: ATIVAN IV PRN (14:59)
--- NOTE | 2018-11-07 16:04 | Progress Note ---
Assessment and Plan - Patient Problems (1) Partial small bowel obstruction Current Visit: Yes Status: Acute Plan to address problem: 73 yo F with 1. pSBO - resolved 2. contained gastric perforation 3. VDRF 4. aspiration PNA 5. sepsis 6. Fungemia in blood 7. Respiratory Failure Obstruction series 10/27 - improved small bowel and stomach dilatation. Obstructions series 10/28 - no significant change since previous study. NGT has been removed Obstruction series 10/29 - relatively normal bowel gas pattern. NGT in place Ct scan A/P from admission reviewed with Dr. Garces - LindyBO. Mesenteric vessels patent. Ct scan C/A/P 10/30 - Images reviewed with Dr. Garces - pSBO resolved, no evidence for bowel ischemia. Small contained gastric perforation at lesser curve. No gross free air or contrast extrav. Ansarca. Bilateral pleural effusions. Bilateral upper lobes infiltrates. Ct scan A/p 11/04 - No extravasation of contrast from stomach Plan: 1. NPO 2. ok to start trickle TF, advance slowly 3. TPN - continue until patient on PO diet 4. prn pain control 5. DVT ppx 6. c/w abx per ID 7. PPI daily 8. Will plan for trach only at this time. Will need at least 2 weeks for gastric healing before attempting endoscopy and insufflation. Will get consent from and schedule soon. Thank you, please call with questions. Subjective Date of service: 11/07/18 Patient Reports: Positive: other (pt reintubated for 3rd time. ) Objective Vital Signs - 12hr 11/07/18 11/07/18 11/07/18 04:30 05:00 05:31 Pulse Rate 120 H 119 H 109 H Pulse Rate [ Anterior Bilateral Throughout] Respiratory 40 H 43 H 45 H Rate Respiratory Rate [Anterior Bilateral Throughout] Blood Pressure 137/79 141/80 137/79 O2 Sat by Pulse 97 98 98 Oximetry 11/07/18 11/07/18 11/07/18 06:01 06:30 07:00 Pulse Rate 109 H 109 H 109 H Pulse Rate [ Anterior Bilateral Throughout] Respiratory 42 H 43 H 43 H Rate Respiratory Rate [Anterior Bilateral Throughout] Blood Pressure 137/79 152/51 132/58 O2 Sat by Pulse 98 99 99 Oximetry 11/07/18 11/07/18 11/07/18 07:30 07:51 08:01 Pulse Rate 112 H 111 H Pulse Rate [ 105 H Anterior Bilateral Throughout] Respiratory 43 H 45 H Rate Respiratory 39 H Rate [Anterior Bilateral Throughout] Blood Pressure 137/50 131/63 O2 Sat by Pulse 98 98 Oximetry 11/07/18 11/07/18 11/07/18 08:02 08:30 09:00 Pulse Rate 117 H 114 H 114 H Pulse Rate [ 109 H Anterior Bilateral Throughout] Respiratory 44 H 42 H 41 H Rate Respiratory 41 H Rate [Anterior Bilateral Throughout] Blood Pressure 131/63 140/49 137/50 O2 Sat by Pulse 99 96 97 Oximetry 11/07/18 11/07/18 11/07/18 09:10 09:30 10:00 Pulse Rate 110 H 112 H 112 H Pulse Rate [ Anterior Bilateral Throughout] Respiratory 17 18 Rate Respiratory Rate [Anterior Bilateral Throughout] Blood Pressure 137/50 138/29 128/41 O2 Sat by Pulse 99 99 99 Oximetry 11/07/18 11/07/18 11/07/18 10:30 11:00 11:30 Pulse Rate 132 H 116 H 117 H Pulse Rate [ Anterior Bilateral Throughout] Respiratory 20 20 22 Rate Respiratory Rate [Anterior Bilateral Throughout] Blood Pressure 128/51 121/53 144/43 O2 Sat by Pulse 97 100 99 Oximetry 11/07/18 11/07/18 11/07/18 12:00 12:26 12:30 Pulse Rate 116 H 96 H 92 H Pulse Rate [ Anterior Bilateral Throughout] Respiratory 22 21 Rate Respiratory Rate [Anterior Bilateral Throughout] Blood Pressure 124/40 126/40 126/40 O2 Sat by Pulse 100 94 95 Oximetry 11/07/18 11/07/18 11/07/18 13:00 13:31 14:00 Pulse Rate 106 H 121 H 124 H Pulse Rate [ Anterior Bilateral Throughout] Respiratory 22 28 H 25 H Rate Respiratory Rate [Anterior Bilateral Throughout] Blood Pressure 143/51 141/61 118/58 O2 Sat by Pulse 95 97 99 Oximetry 11/07/18 11/07/18 11/07/18 14:30 15:00 15:28 Pulse Rate 126 H 118 H 109 H Pulse Rate [ Anterior Bilateral Throughout] Respiratory 25 H 21 Rate Respiratory Rate [Anterior Bilateral Throughout] Blood Pressure 121/53 121/55 121/60 O2 Sat by Pulse 99 98 Oximetry 11/07/18 15:30 Pulse Rate 101 H Pulse Rate [ Anterior Bilateral Throughout] Respiratory 22 Rate Respiratory Rate [Anterior Bilateral Throughout] Blood Pressure 114/51 O2 Sat by Pulse 91 Oximetry - General physical appearance no distress, no pain - Neck no masses, no bruits, trachea midline, no lymphadectomy, no venous distension - Respiratory normal expansion, normal respiratory effort - Abdomen soft, not distended - Integumentary no rash, no growths, no abnormal pigmentation - Labs 11/07/18 04:55 11/07/18 04:55 Diabetes panel 11/07/18 Range/Units 04:55 Sodium 141 D (137-145) mmol/L Potassium 4.4 (3.6-5.0) mmol/L Chloride 101.0 (98-107) mmol/L Carbon Dioxide 26 D (22-30) mmol/L BUN 54 H (7-17) mg/dL Creatinine 0.8 (0.7-1.2) mg/dL Glucose 270 H (65-100) mg/dL Calcium 7.9 L (8.4-10.2) mg/dL Calcium panel 11/07/18 Range/Units 04:55 Calcium 7.9 L (8.4-10.2) mg/dL Phosphorus 5.00 H (2.5-4.5) mg/dL Pituitary panel 11/07/18 Range/Units 04:55 Sodium 141 D (137-145) mmol/L Potassium 4.4 (3.6-5.0) mmol/L Chloride 101.0 (98-107) mmol/L Carbon Dioxide 26 D (22-30) mmol/L BUN 54 H (7-17) mg/dL Creatinine 0.8 (0.7-1.2) mg/dL Glucose 270 H (65-100) mg/dL Calcium 7.9 L (8.4-10.2) mg/dL Adrenal panel 11/07/18 Range/Units 04:55 Sodium 141 D (137-145) mmol/L Potassium 4.4 (3.6-5.0) mmol/L Chloride 101.0 (98-107) mmol/L Carbon Dioxide 26 D (22-30) mmol/L BUN 54 H (7-17) mg/dL Creatinine 0.8 (0.7-1.2) mg/dL Glucose 270 H (65-100) mg/dL Calcium 7.9 L (8.4-10.2) mg/dL
--- NOTE | 2018-11-07 16:56 | Hem/Onc Progress Note ---
Assessment and Plan 1. h/o Thrombocytopenia, likely medication, pts medical status related. platelet count is better. 2. History of colon surgery in the past, details not clear. 3. History of bowel issues. Seen by surgical team. - pSBO and contained gastric perforation 4. h/o TPN. 5. h/o Ayla, ID following. 6. Chronic obstructive pulmonary disease. 7. Hypertension. 8. History of lupus. 9. Aspiration pneumonia. 10. The patient was on ventilation. 11. Renal impairment. pt intubated - pulm following - Patient Problems (1) Thrombocytopenia Current Visit: Yes Status: Acute Subjective Date of service: 11/07/18 Principal diagnosis: low plt Interval history: pt reintubated Objective - Constitutional Vitals: Last Vital Signs Temp 97.6 F 11/07/18 04:00 Pulse 101 H 11/07/18 15:30 Resp 22 11/07/18 15:30 BP 114/51 11/07/18 15:30 Pulse Ox 91 11/07/18 15:30 General appearance: no acute distress Performance status: 4-completely disabled - EENT ENT: other (intubated) Lymph node exam: negative cervical - Respiratory Respiratory effort: Positive: normal Respiratory: bilateral: diminished - Cardiovascular Heart Sounds: Present: S1 & S2 Extremities: normal temperature - Gastrointestinal General gastrointestinal: Present: soft Rectal Exam: deferred - Genitourinary Female genitourinary: Present: deferred - Integumentary Integumentary: warm - Musculoskeletal Musculoskeletal: generalized weakness - Labs Lab Results: Laboratory Results - last 24 hr 11/06/18 11/06/18 11/06/18 17:17 19:46 23:30 WBC RBC Hgb Hct MCV MCH MCHC RDW Plt Count POC ABG pH 7.403 7.317 L POC ABG pCO2 39.3 50.3 H POC ABG pO2 58 L 57 L POC ABG HCO3 24.5 25.7 POC ABG Total CO2 26 27 POC ABG O2 Sat 90 87 POC ABG Base Excess 0 0 FiO2 40 75 Sodium Potassium Chloride Carbon Dioxide Anion Gap BUN Creatinine Estimated GFR BUN/Creatinine Ratio Glucose POC Glucose 199 H Calcium Phosphorus Magnesium NT-Pro-B Natriuret Pep 11/07/18 11/07/18 11/07/18 00:00 04:55 04:55 WBC 25.2 H RBC 3.64 L Hgb 11.4 Hct 34.1 MCV 94 MCH 31 MCHC 34 RDW 14.8 Plt Count 227 POC ABG pH POC ABG pCO2 POC ABG pO2 POC ABG HCO3 POC ABG Total CO2 POC ABG O2 Sat POC ABG Base Excess FiO2 Sodium 141 D Potassium 4.4 Chloride 101.0 Carbon Dioxide 26 D Anion Gap 18 BUN 54 H Creatinine 0.8 Estimated GFR > 60 BUN/Creatinine Ratio 68 Glucose 270 H POC Glucose 224 H Calcium 7.9 L Phosphorus 5.00 H Magnesium 2.30 NT-Pro-B Natriuret Pep 11/07/18 11/07/18 11/07/18 04:55 05:46 08:08 WBC RBC Hgb Hct MCV MCH MCHC RDW Plt Count POC ABG pH 7.368 POC ABG pCO2 47.6 H POC ABG pO2 106 H POC ABG HCO3 27.4 POC ABG Total CO2 29 POC ABG O2 Sat 98 POC ABG Base Excess 2 FiO2 40 Sodium Potassium Chloride Carbon Dioxide Anion Gap BUN Creatinine Estimated GFR BUN/Creatinine Ratio Glucose POC Glucose 266 H Calcium Phosphorus Magnesium NT-Pro-B Natriuret Pep 4507 H 11/07/18 11/07/18 11:52 12:29 WBC RBC Hgb Hct MCV MCH MCHC RDW Plt Count POC ABG pH POC ABG pCO2 POC ABG pO2 POC ABG HCO3 POC ABG Total CO2 POC ABG O2 Sat POC ABG Base Excess FiO2 Sodium Potassium Chloride Carbon Dioxide Anion Gap BUN Creatinine Estimated GFR BUN/Creatinine Ratio Glucose POC Glucose 323 H 325 H Calcium Phosphorus Magnesium NT-Pro-B Natriuret Pep Medications & Allergies - Medications Allergies/Adverse Reactions: Allergies Sulfa (Sulfonamide Antibiotics) Allergy (Intermediate, Verified 10/22/18 16:30) Rash metoclopramide HCl [From Reglan] Allergy (Verified 10/22/18 16:30) Dizziness prochlorperazine [From Compazine] Allergy (Verified 10/22/18 16:30) NECK STIFFNESS Home Medications: Home Medications Medication Instructions Recorded Confirmed Last Taken Type Ondansetron 4 mg PO Q6HR PRN 12/05/16 10/22/18 10/29/17 History Propranolol HCl [Propranolol HCl 60 mg PO DAILY 12/05/16 10/22/18 10/30/17 22:00 History ER] QUEtiapine [SEROquel] 300 mg PO DAILY 0710/22/18 10/30/17 History Lasix TAB 40 mg PO PRN PRN 12/07/16 10/22/18 10/24/17 History Percocet 10/325 mg 1 tab PO PRN PRN 12/07/16 10/22/18 10/30/17 History Albuterol Sulfate [Albuterol 0.63% 0.63 mg IH TID PRN 10/22/17 10/22/18 10/29/17 History NEBS] Active Medications: Generic Name Dose Route Start Last Admin Trade Name Freq PRN Reason Stop Dose Admin Acetaminophen 650 mg 10/22/18 20:10 Tylenol PO Q4H PRN Pain MILD(1-3)/Fever >100.5/PORTER Albuterol 2.5 mg 10/22/18 20:14 11/05/18 16:35 Proventil IH 2.5 mg Q4HRT PRN Administration Shortness Of Breath Lipase/Protease/Amylase 1 each 11/05/18 10:13 Pancremaranda Simpson 10,500 Unit FEEDTUBE PRN PRN For Clogged Feeding Tube Arformoterol Tartrate 15 mcg 11/05/18 20:00 11/07/18 07:51 Brovana Nebu IH 15 mcg Q12HRT RICK Administration Budesonide 0.5 mg 10/23/18 08:00 11/07/18 07:51 Pulmicort IH 0.5 mg Q12HRT RICK Administration Dextrose 50 ml 10/26/18 23:40 10/27/18 00:20 D50w (25gm) Syringe IV 50 ml PRN PRN Administration Hypoglycemia Enoxaparin Sodium 40 mg 11/05/18 22:00 11/06/18 21:31 Lovenox SUB-Q 40 mg QDAY@2200 RICK Administration Fentanyl 50 mcg 11/07/18 09:18 Sublimaze IV Q2H PRN Pain , Severe (7-10) Furosemide 40 mg 11/07/18 18:00 Lasix IV 0600,1800 RICK Hydralazine HCl 10 mg 10/22/18 21:41 11/07/18 00:04 Apresoline IV 10 mg Q4HR PRN Administration Blood Pressure Hydrophilic Ointment 1 applic 11/07/18 09:14 Vaseline Lip Therapy TP Q2HR PRN Dry Lips Micafungin Sodium 100 mg/ 100 mls @ 100 mls/hr 11/02/18 10:00 11/07/18 11:27 Sodium Chloride IV 100 mls/hr QDAY [facility] Administration Protocol Amino Acids/Electrolytes/Dextrose 2,400 mls @ 100 mls/hr 11/06/18 20:00 11/06/18 20:07 Tpn Adult IV 11/07/18 19:59 100 mls/hr DAILY@[email or web address] [facility] Administration Protocol Levofloxacin/Dextrose 500 mg in 100 mls @ 100 mls/hr 11/07/18 12:00 11/07/18 13:00 Levaquin 500mg/100ml IV 11/10/18 11:59 100 mls/hr Q24HR RICK Administration Protocol Amino Acids/Electrolytes/Dextrose 2,400 mls @ 100 mls/hr 11/07/18 20:00 Tpn Adult IV 11/08/18 19:59 DAILY@[email or web address] [facility] Protocol Insulin Human Lispro 0 unit 10/29/18 12:00 11/07/18 12:24 Humalog SUB-Q 6 unit Q6HR [facility] Administration Protocol Lorazepam 1 mg 11/06/18 11:00 11/07/18 14:59 Ativan IV 1 mg Q6H PRN Administration Anxiety Methylprednisolone Sodium Succinate 60 mg 11/07/18 12:00 11/07/18 12:56 Solu-Medrol IV 60 mg Q6HR RICK Administration Metoprolol Tartrate 5 mg 10/31/18 14:00 11/07/18 15:28 Lopressor IV 5 mg TID [facility] Administration Multi-Ingred Cream/Lotion/Oil/Oint 1 applic 11/07/18 09:14 Artificial Tears Ophth Oint OU Q4HR PRN Dry Eye(s) Nitroglycerin 1 inch 11/07/18 18:00 Nitro-Bid 2% TP TIDNTG [facility] Protocol Ondansetron HCl 4 mg 10/24/18 10:05 10/25/18 17:26 Zofran IV 4 mg Q6H PRN Administration Nausea And Vomiting Oxycodone/Acetaminophen 1 tab 11/05/18 11:16 Percocet 5/325 PO Q6H PRN Pain, Moderate (4-6) Pantoprazole Sodium 40 mg 11/05/18 10:00 11/07/18 11:00 Protonix IV 40 mg DAILY RICK Administration Phenol 1 spray 10/28/18 10:16 Chloraseptic MM PRN PRN Sore Throat Promethazine HCl 25 mg 10/22/18 20:10 10/22/18 21:21 Phenergan MO 25 mg Q6H PRN Administration Nausea And Vomiting Simple Syrup 15 ml 11/05/18 10:13 Simple Syrup FEEDTUBE PRN PRN Hypoglycemia Simple Syrup 30 ml 11/05/18 10:13 Simple Syrup FEEDTUBE PRN PRN Hypoglycemia Sodium Bicarbonate 325 mg 11/05/18 10:13 Sodium Bicarbonate FEEDTUBE PRN PRN For Clogged Feeding Tube Sodium Chloride 10 ml 10/22/18 22:00 11/07/18 10:09 Sodium Chloride Flush Syringe 10 Ml IV 10 ml BID RICK Administration Sodium Chloride 10 ml 10/22/18 20:10 10/24/18 18:32 Sodium Chloride Flush Syringe 10 Ml IV 10 ml PRN PRN Administration LINE FLUSH
[2018-11-07] MEDS: LASIX IV SCH (18:10)
[2018-11-07] MEDS: NITRO-BID 2% TP SCH (18:11)
[2018-11-07] MEDS ORDERED: TPN ADULT 2,400 ML IV SCH (20:00)
[2018-11-07] MEDS: LOVENOX SUB-Q SCH (22:32)
[2018-11-08] MEDS: HumaLOG SUB-Q SCH ×4 (01:05→18:40)
[2018-11-08] MEDS: SOLU-Medrol IV SCH ×4 (01:05→17:50)
--- NOTE | 2018-11-08 02:40 | XRay Report ---
PROCEDURE: XR CHEST 1V AP TECHNIQUE: Chest radiograph single view. HISTORY: follow up respiratory failure COMPARISONS: November 02, 2018 . FINDINGS: Heart: Normal. Mediastinum/Vessels: Normal. Lungs/Pleural space: Mild atelectasis left lower lung. No pneumothorax. Bony thorax: No acute osseous abnormality. Life support devices: The endotracheal tube ends 1 cm above the rekha. A nasogastric tube ends below the hemidiaphragms. Right central catheter ends in the SVC. IMPRESSION: Mild atelectasis left lower lung. The endotracheal tube ends 1 cm above the rekha. A nasogastric tube and right central catheter are p roperly positioned.. This document is electronically signed by Marcela Brooks DO., November 08 2018 02:38:35 AM ET
[2018-11-08] MEDS: LASIX IV SCH ×2 (05:11→17:50)
[2018-11-08] MEDS: PERCOCET 5/325 PO PRN ×2 (05:12→20:00)
[2018-11-08 05:28] LABS: Hematocrit 29.7 % (30.3-42.9); Mean Corpuscular HGB Conc 34 % (30-34); Mean Corpuscular Volume 93 fl (79-97); Platelet Count 180 K/mm3 (140-440); Red Cell Distribution Width 14.8 % (13.2-15.2)
[2018-11-08 05:40] LABS: BUN/Creatinine Ratio 76; Blood Urea Nitrogen 61 mg/dL (7-17); Calcium 7.6 mg/dL (8.4-10.2); Hemolysis Index 5
[2018-11-08] MEDS: LOPRESSOR IV SCH ×3 (08:11→20:34)
[2018-11-08] MEDS: BROVANA NEBU IH SCH ×2 (08:49→19:58)
[2018-11-08] MEDS: PULMICORT IH SCH ×2 (08:49→19:58)
[2018-11-08] MEDS: LEVAQUIN 500MG/100ML 500 MG/100 ML BAG IV SCH (09:23)
[2018-11-08] MEDS: ATIVAN IV PRN ×2 (09:23→17:47)
[2018-11-08] MEDS: SODIUM CHLORIDE FLUSH SYRINGE 10 ML IV SCH (09:24)
--- NOTE | 2018-11-08 09:25 | Progress Note ---
Assessment and Plan Assessment and plan: Patient is 73-year-old female with history of hypertension, lupus, fibromyalgia, COPD, opioid dependence (follows Dr. Felix Muñiz at pain clinic) who presented to [facility] ED with complaints of intractable nausea, vomiting, diarrhea for 3 days. On initial presentation to the ED she was found to be tachycardiac with heart rate 113 BPM, leukocytosis with WBC 11.5, elevated BUN/Cr 51/2.1. Patient has history of COPD and at baseline does not require home oxygen use. She was admitted to [facility]. GI was consulted, she was evaluated. CT Abdomen revealed partial SBO versus ileus therefore surgeon consulted. Also patient became more short of breath, placed on BIPAP with no improvement then intubated 10/26/18 for acute resp failure and transferred to ICU. Obstruction series completed on 10/27 which showed improved but small bowel and stomach dilatation. Follow-up series on 10/28 showed no significant change since previous study. NG tube was removed due to patient not tolerating/refusing. Patient was placed back on BiPAP but decompensated on the night of 10/28/18 and had to be reintubated. Patient currently on mechanical ventilation. Patient has had further complications now with findings consistent with contained gastric perforation on repeat CT scan 10/30. Also, patient has cultures that were positive and consistent with fungemia. Gastric perforation. Repeat CT scan on 10/30 revealed pSBO resolved, no evidence for bowel ischemia. Small contained gastric perforation at lesser curve. No gross free air or contrast extravasation. Surgery recommends conservative management with continuing NGT, NPO, gentle IVF and when necessary pain control. Will reimage stomach when pulm status is more stable to make sure there is no leak. Sepsis/fungemia. Continue antibiotics/antifungals and follow cultures. ID following. May need to switch off PICC to other access, hold IV nutrition ? Thrombocytopenia. Etiology likely secondary to sepsis. Hematology following. Bilateral upper lobe/aspiration pneumonia. Sputum culture positive for Escherichia coli and stenotrophomonas. Continue antibiotics per ID. Partial small bowel obstruction. Continue NGT per surgery. Acute exacerbation COPD. Scheduled Duo Nebs and Pulmicort; albuterol when necessary Acute hypoxic respiratory failure. Patient was reintubated on 10/28/18, Etiology secondary to COPD/pneumonia/sepsis. Extubated 11/05, re-intubated 11/07 Toxic metabolic encephalopathy Hypokalemia. Replete potassium. Hyponatremia. Repeat in am Hypertension. IV hydralazine when necessary Lupus. Supportive care Fibromyalgia. supportive care History of opioid dependence ADWOA due to vasomotor nephropathy, now resolved Full code status The high probability of a clinically significant, sudden or life threatening de terioration of the [GI and respiratory] system(s) required my full and direct attention, intervention and personal management. The aggregate critical care time was [32] minutes. This time is in addition to time spent performing reported procedures but includes the following: [x] Data Review and interpretation [x] Patient assessment and monitoring of vital signs [x] Documentation [x] Medication orders and management History Interval history: Shortness of breath, resp distress, re-intubated yesterday no fever Hospitalist Physical - Physical exam Narrative exam: Gen: In respiratory distress, on BIPAP HEENT: Normocephalic, atraumatic, NG tube Neck: supple, no JVD Heart: S1 and S2 reg, no murmurs, rubs or gallop Lungs: Clear bilat, decreased breath sounds bilat. no wheeze Abd: soft, non tender, no rebound tenderness, non distended, BS present Ext: No edema, no clubbing, no cyanosis, Neuro: Intubated, awake - Constitutional Vitals: Temp Pulse Resp BP Pulse Ox 97.4 F L 111 H 22 117/58 99 11/08/18 08:00 11/08/18 08:52 11/08/18 08:30 11/08/18 08:52 11/08/18 08:52 General appearance: Present: other (intubated, opens eyes to commands) Results - Labs CBC & Chem 7: 11/08/18 05:05 11/08/18 05:05 Labs: Laboratory Last Values WBC 18.4 K/mm3 (4.5-11.0) H 11/08/18 05:05 RBC 3.20 M/mm3 (3.65-5.03) L 11/08/18 05:05 Hgb 10.0 gm/dl (10.1-14.3) L 11/08/18 05:05 Hct 29.7 % (30.3-42.9) L 11/08/18 05:05 MCV 93 fl (79-97) 11/08/18 05:05 MCH 31 pg (28-32) 11/08/18 05:05 MCHC 34 % (30-34) 11/08/18 05:05 RDW 14.8 % (13.2-15.2) 11/08/18 05:05 Plt Count 180 K/mm3 (140-440) 11/08/18 05:05 Lymph % (Auto) 10.2 % (13.4-35.0) L 10/23/18 04:32 Ray % (Auto) 14.7 % (0.0-7.3) H 10/23/18 04:32 Eos % (Auto) 0.1 % (0.0-4.3) 10/23/18 04:32 Baso % (Auto) 0.1 % (0.0-1.8) 10/23/18 04:32 Lymph # 0.7 K/mm3 (1.2-5.4) L 10/23/18 04:32 Ray # 1.0 K/mm3 (0.0-0.8) H 10/23/18 04:32 Eos # 0.0 K/mm3 (0.0-0.4) 10/23/18 04:32 Baso # 0.0 K/mm3 (0.0-0.1) 10/23/18 04:32 Add Manual Diff Complete 11/04/18 09:39 Total Counted 100 11/04/18 09:39 Seg Neutrophils % Saw Cleaner 11/04/18 09:39 Seg Neuts % (Manual) 98.0 % (40.0-70.0) H 11/04/18 09:39 0 % 11/04/18 09:39 1.0 % (13.4-35.0) L 11/04/18 09:39 Reactive Lymphs % (Man) 0 % 11/04/18 09:39 0 % (0.0-7.3) 11/04/18 09:39 1.0 % (0.0-4.3) 11/04/18 09:39 0 % (0.0-1.8) 11/04/18 09:39 0 % 11/04/18 09:39 0 % 11/04/18 09:39 0 % 11/04/18 09:39 0 % 11/04/18 09:39 Nucleated RBC % Not Reportable 11/04/18 09:39 Seg Neutrophils # 5.2 K/mm3 (1.8-7.7) 10/23/18 04:32 Seg Neutrophils # Man 14.9 K/mm3 (1.8-7.7) H 11/04/18 09:39 Band Neutrophils # 0.0 K/mm3 11/04/18 09:39 0.2 K/mm3 (1.2-5.4) L 11/04/18 09:39 Abs React Lymphs (Man) 0.0 K/mm3 11/04/18 09:39 0.0 K/mm3 (0.0-0.8) 11/04/18 09:39 0.2 K/mm3 (0.0-0.4) 11/04/18 09:39 0.0 K/mm3 (0.0-0.1) 11/04/18 09:39 0.0 K/mm3 11/04/18 09:39 0.0 K/mm3 11/04/18 09:39 0.0 K/mm3 11/04/18 09:39 Blast Cells # 0.0 K/mm3 11/04/18 09:39 WBC Morphology Not Reportable 11/04/18 09:39 Hypersegmented Neuts Not Reportable 11/04/18 09:39 Hyposegmented Neuts Not Reportable 11/04/18 09:39 Hypogranular Neuts Not Reportable 11/04/18 09:39 Not Reportable 11/04/18 09:39 Not Reportable 11/04/18 09:39 Not Reportable 11/04/18 09:39 Not Reportable 11/04/18 09:39 Not Reportable 11/04/18 09:39 Not Reportable 11/04/18 09:39 Consistent w auto 11/04/18 09:39 Not Reportable 11/04/18 09:39 Plt Clumps, EDTA Not Reportable 11/04/18 09:39 Not Reportable 11/04/18 09:39 Not Reportable 11/04/18 09:39 Not Reportable 11/04/18 09:39 Plt Morphology Comment Not Reportable 11/04/18 09:39 RBC Morphology Normal 11/04/18 09:39 Dimorphic RBCs Not Reportable 11/04/18 09:39 Not Reportable 11/04/18 09:39 Not Reportable 11/04/18 09:39 Not Reportable 11/04/18 09:39 Not Reportable 11/04/18 09:39 Not Reportable 11/04/18 09:39 Not Reportable 11/04/18 09:39 Not Reportable 11/04/18 09:39 Not Reportable 11/04/18 09:39 Not Reportable 11/04/18 09:39 Not Reportable 11/04/18 09:39 Not Reportable 11/04/18 09:39 Not Reportable 11/04/18 09:39 Not Reportable 11/04/18 09:39 Not Reportable 11/04/18 09:39 Not Reportable 11/04/18 09:39 Not Reportable 11/04/18 09:39 Not Reportable 11/04/18 09:39 Not Reportable 11/04/18 09:39 Not Reportable 11/04/18 09:39 Acanthocytes (Spur) Not Reportable 11/04/18 09:39 Rouleaux Not Reportable 11/04/18 09:39 Not Reportable 11/04/18 09:39 Not Reportable 11/04/18 09:39 Not Reportable 11/04/18 09:39 Not Reportable 11/04/18 09:39 Hem Pathologist Commnt No 11/04/18 09:39 Heparin Anti-Xa, Unfract Negative (Negative) 10/30/18 13:58 POC ABG pH 7.524 (7.35-7.45) H 11/08/18 03:58 POC ABG pCO2 34.3 (35-45) L 11/08/18 03:58 POC ABG pO2 91 (80-105) 11/08/18 03:58 POC ABG HCO3 28.3 (22-26 mml/L) 11/08/18 03:58 POC ABG Total CO2 29 (23-27mmol/L) 11/08/18 03:58 POC ABG O2 Sat 98 11/08/18 03:58 POC ABG Base Excess 6 ((-2) - (+3)mmol/L) 11/08/18 03:58 35 % 11/08/18 03:58 Sodium 142 mmol/L (137-145) 11/08/18 05:05 Potassium 4.0 mmol/L (3.6-5.0) 11/08/18 05:05 Chloride 101.1 mmol/L (98-107) 11/08/18 05:05 Carbon Dioxide 29 mmol/L (22-30) 11/08/18 05:05 16 mmol/L 11/08/18 05:05 BUN 61 mg/dL (7-17) H 11/08/18 05:05 0.8 mg/dL (0.7-1.2) 11/08/18 05:05 Estimated GFR > 60 ml/min 11/08/18 05:05 76 % 11/08/18 05:05 Glucose 253 mg/dL (65-100) H 11/08/18 05:05 POC Glucose 295 (70-105) H 11/08/18 05:28 Lactic Acid 1.60 mmol/L (0.7-2.0) 10/26/18 15:03 Calcium 7.6 mg/dL (8.4-10.2) L 11/08/18 05:05 Phosphorus 3.50 mg/dL (2.5-4.5) D 11/08/18 05:05 Magnesium 2.10 mg/dL (1.7-2.3) 11/08/18 05:05 0.30 mg/dL (0.1-1.2) 11/03/18 11:30 AST 14 units/L (5-40) 11/03/18 11:30 ALT 17 units/L (7-56) 11/03/18 11:30 51 units/L (35-129) 11/03/18 11:30 NT-Pro-B Natriuret Pep 4507 pg/mL (0-900) H 11/07/18 04:55 4.2 g/dL (6.3-8.2) L 11/03/18 11:30 1.2 g/dL (3.9-5) L 11/03/18 11:30 0.4 % 11/03/18 11:30 Triglycerides 132 mg/dL (2-149) 11/01/18 06:40 10 units/L (13-60) L 10/22/18 15:54 See scanned result 10/30/18 13:58 TSH 3.150 mlU/mL (0.270-4.200) 10/31/18 17:00 Free T4 0.49 ng/dL (0.76-1.46) L 10/31/18 17:00 Dulce (Yellow) 10/22/18 19:10 Clear (Clear) 10/22/18 19:10 5.0 (5.0-7.0) 10/22/18 19:10 Ur Specific [place] 1.018 (1.003-1.030) 10/22/18 19:10 30 mg/dl mg/dL (Negative) 10/22/18 19:10 Neg mg/dL (Negative) 10/22/18 19:10 Tr mg/dL (Negative) 10/22/18 19:10 Neg (Negative) 10/22/18 19:10 Neg (Negative) 10/22/18 19:10 Neg (Negative) 10/22/18 19:10 < 2.0 mg/dL (<2.0) 10/22/18 19:10 Ur Leukocyte Esterase Neg (Negative) 10/22/18 19:10 1.0 /HPF (0.0-6.0) 10/22/18 19:10 3.0 /HPF (0.0-6.0) 10/22/18 19:10 Heparin-induced Plt Ab Negative (Negative) 10/30/18 13:58 UF Heparin High Dose 0 % Release 10/30/18 13:58 KIMO UFH Low Dose 0.1 0 % Release 10/30/18 13:58 KIMO UFH Low Dose 0.5 0 % Release 10/30/18 13:58 Active Medications - Current Medications Current Medications: Generic Name Dose Route Start Last Admin Trade Name Freq PRN Reason Stop Dose Admin Acetaminophen 650 mg 10/22/18 20:10 Tylenol PO Q4H PRN Pain MILD(1-3)/Fever >100.5/PORTER Albuterol 2.5 mg 10/22/18 20:14 11/05/18 16:35 Proventil IH 2.5 mg Q4HRT PRN Administration Shortness Of Breath Lipase/Protease/Amylase 1 each 11/05/18 10:13 Pancremaranda Simpson 10,500 Unit FEEDTUBE PRN PRN For Clogged Feeding Tube Arformoterol Tartrate 15 mcg 11/05/18 20:00 11/08/18 08:49 Brovana Nebu IH 15 mcg Q12HRT RICK Administration Budesonide 0.5 mg 10/23/18 08:00 11/08/18 08:49 Pulmicort IH 0.5 mg Q12HRT RICK Administration Dextrose 50 ml 10/26/18 23:40 10/27/18 00:20 D50w (25gm) Syringe IV 50 ml PRN PRN Administration Hypoglycemia Enoxaparin Sodium 40 mg 11/05/18 22:00 11/07/18 22:32 Lovenox SUB-Q 40 mg QDAY@2200 RICK Administration Fentanyl 50 mcg 11/07/18 09:18 Sublimaze IV Q2H PRN Pain , Severe (7-10) Furosemide 40 mg 11/07/18 18:00 11/08/18 05:11 Lasix IV 40 mg 0600,1800 RICK Administration Hydralazine HCl 10 mg 10/22/18 21:41 11/07/18 00:04 Apresoline IV 10 mg Q4HR PRN Administration Blood Pressure Hydrophilic Ointment 1 applic 11/07/18 09:14 Vaseline Lip Therapy TP Q2HR PRN Dry Lips Micafungin Sodium 100 mg/ 100 mls @ 100 mls/hr 11/02/18 10:00 11/07/18 11:27 Sodium Chloride IV 100 mls/hr QDAY [facility] Administration Protocol Levofloxacin/Dextrose 500 mg in 100 mls @ 100 mls/hr 11/07/18 12:00 11/08/18 09:23 Levaquin 500mg/100ml IV 11/10/18 11:59 100 mls/hr Q24HR RICK Administration Protocol Amino Acids/Electrolytes/Dextrose 2,400 mls @ 100 mls/hr 11/07/18 20:00 11/07 20:38 Tpn Adult IV 11/08/18 19:59 100 mls/hr DAILY@2000 [facility] Administration Protocol Insulin Human Isoph/Insulin Regular 8 unit 11/08/18 08:00 11/08/18 08:12 Humulin 70/30 SUB-Q 8 unit BIDDIAB RICK Administration Insulin Human Lispro 0 unit 10/29/18 12:00 11/08/18 06:17 Humalog SUB-Q 4 unit Q6HR RICK Administration Protocol Lorazepam 1 mg 11/06/18 11:00 11/08/18 09:23 Ativan IV 1 mg Q6H PRN Administration Anxiety Methylprednisolone Sodium Succinate 60 mg 11/07/18 12:00 11/08/18 05:12 Solu-Medrol IV 60 mg Q6HR RICK Administration Metoprolol Tartrate 5 mg 10/31/18 14:00 11/08/18 08:11 Lopressor IV 5 mg TID RICK Administration Multi-Ingred Cream/Lotion/Oil/Oint 1 applic 11/07/18 09:14 Artificial Tears Ophth Oint OU Q4HR PRN Dry Eye(s) Nitroglycerin 1 inch 11/07/18 18:00 11/07/18 18:11 Nitro-Bid 2% TP 1 inch TIDNTG RICK Administration Protocol Ondansetron HCl 4 mg 10/24/18 10:05 10/25/18 17:26 Zofran IV 4 mg Q6H PRN Administration Nausea And Vomiting Oxycodone/Acetaminophen 1 tab 11/05/18 11:16 11/08/18 05:12 Percocet 5/325 PO 1 tab Q6H PRN Administration Pain, Moderate (4-6) Pantoprazole Sodium 40 mg 11/05/18 10:00 11/07/18 11:00 Protonix IV 40 mg DAILY RICK Administration Phenol 1 spray 10/28/18 10:16 Chloraseptic MM PRN PRN Sore Throat Promethazine HCl 25 mg 10/22/18 20:10 10/22/18 21:21 Phenergan AR 25 mg Q6H PRN Administration Nausea And Vomiting Simple Syrup 15 ml 11/05/18 10:13 Simple Syrup FEEDTUBE PRN PRN Hypoglycemia Simple Syrup 30 ml 11/05/18 10:13 Simple Syrup FEEDTUBE PRN PRN Hypoglycemia Sodium Bicarbonate 325 mg 11/05/18 10:13 Sodium Bicarbonate FEEDTUBE PRN PRN For Clogged Feeding Tube Sodium Chloride 10 ml 10/22/18 22:00 11/08/18 09:24 Sodium Chloride Flush Syringe 10 Ml IV 10 ml BID RICK Administration Sodium Chloride 10 ml 10/22/18 20:10 10/24/18 18:32 Sodium Chloride Flush Syringe 10 Ml IV 10 ml PRN PRN Administration LINE FLUSH Nutrition/Malnutrition Assess - Dietary Evaluation Nutrition/Malnutrition Findings: Nutrition Notes Start: 10/23/18 17:03 Freq: Status: Active Protocol: Document 11/07/18 12:27 LP (Rec: 06/07/19 12:31 LP [id number]) Nutrition Notes Initial or Follow up Reassessment Current Diagnosis COPD,Sepsis,Hypertension Other Pertinent Diagnosis Gastric peforation, partial SBO, lupus, opiod dependence, SIRS Current Diet PPN at 100 ml/hr Labs/Tests Reviewed Pertinent Medications Reviewed Height 5 ft 3 in Weight 72.2 kg [place] Body Weight (kg) 52.27 BMI 28.2 Subjective/Other Information Pt continues on PPN day 8. Pt TF was not started. Pt will need to be re-intubated. MD will start trophic feeds today . Percent of energy/protein needs met: 43%/100% Burn Absent Trauma Absent #1 Nutrition Diagnosis Inadequate oral intake Diagnosis Progress(for reassessment Continues documentation) Is patient on ventilator? No Is Patient Ambulatory and/or Out of Bed No REE-([facility]-confined to bed) 1447.392 Kcal/Kg value to use for calculation 25 Approximate Energy Requirements Using 1805 kcal/Kg Calculation Used for Recommendations Kcal/kg Additional Notes Protein needs are 58-96g (1.2- 2g/kg) Fluid needs are 1ml/kcal Nutrition Intervention Change Diet Order: PPN and TF Nutrition Support: PPN at 100 7mmol phos, 7mEq Mg , Chloride:Acetate 25:75 Osmolality:762 TF Vital 1.2 at 10ml/hr and continue Flush with 50ml q12h Kcal 728 Protein (gm) 80 Carbohydrates (gm) 120 Fat (gm) 0 Fluid (mL) 2,400 Fiber (gm) 0 Goal #1 Meet kcal and protein needs as best as possible Goal #2 Tolerate trophic feeds Anticipated Discharge Needs: Unable to determine at this time Follow-Up By: 11/08/18 Additional Comments Labs in AM: BMP, Mg, Phos Follow for TF start/tolerance
[2018-11-08] MEDS: PROTONIX IV SCH (10:20)
[2018-11-08] MEDS: MYCAMINE 100 MG in NACL 0.9% 100 ML IV SCH (10:20)
[2018-11-08] MEDS: SODIUM CHLORIDE FLUSH SYRINGE 10 ML IV PRN ×6 (10:20→17:53)
--- NOTE | 2018-11-08 11:09 | Progress Note ---
Assessment and Plan Continue current cardiac management. Patient has been seen in conjunction with Dr. Mas, who agrees with assessment and plan. - Patient Problems (1) Atrial tachycardia, paroxysmal Current Visit: Yes Status: Acute (2) Tachy-adama syndrome Current Visit: Yes Status: Acute (3) Acute diastolic heart failure with preserved ejection fraction Current Visit: Yes Status: Acute (4) Acute respiratory failure Current Visit: Yes Status: Acute (5) Acute renal failure Current Visit: Yes Status: Acute (6) Partial small bowel obstruction Current Visit: Yes Status: Acute (7) Perforated gastric ulcer Current Visit: Yes Status: Acute (8) COPD (chronic obstructive pulmonary disease) Current Visit: Yes Status: Chronic (9) History of hypertension Current Visit: Yes Status: Chronic Subjective Date of service: 11/08/18 Principal diagnosis: low plt Interval history: Patient remains intubated. Opens eyes when stimulated. Chest x-ray shows improved pulmonary edema. Good urine output after diuresis initiated. Objective Last Vital Signs Temp 97.4 F L 11/08/18 08:00 Pulse 102 H 11/08/18 10:30 Resp 21 11/08/18 10:30 BP 109/40 11/08/18 10:30 Pulse Ox 100 11/08/18 10:30 - Physical Examination General: Other (intubated) HEENT: Positive: PERRL Neck: Positive: neck supple, trachea midline Cardiac: Positive: Tachycardia Lungs: Positive: clear to auscultation Neuro: Positive: Grossly Intact, Other (intubated) Skin: Positive: Clear. Negative: Rash Musculoskeletal: Decreased Range of Motion, No Pain Extremities: Present: normal. Absent: edema - Labs and Meds CBC 11/08/18 Range/Units 05:05 WBC 18.4 H (4.5-11.0) K/mm3 RBC 3.20 L (3.65-5.03) M/mm3 Hgb 10.0 L (10.1-14.3) gm/dl Hct 29.7 L (30.3-42.9) % Plt Count 180 (140-440) K/mm3 Comprehensive Metabolic Panel 11/08/18 Range/Units 05:05 Sodium 142 (137-145) mmol/L Potassium 4.0 (3.6-5.0) mmol/L Chloride 101.1 (98-107) mmol/L Carbon Dioxide 29 (22-30) mmol/L BUN 61 H (7-17) mg/dL Creatinine 0.8 (0.7-1.2) mg/dL Glucose 253 H (65-100) mg/dL Calcium 7.6 L (8.4-10.2) mg/dL - Imaging and Cardiology EKG: report reviewed, image reviewed Echo: report reviewed (EF 50%, trace TR, minimal pericardial effusion. ) - Telemetry EKG Rhythm: Sinus Tachycardia - EKG Sinus rhythms and dysrhythmias: sinus rhythm - Allied health notes Allied health notes reviewed: nursing
[2018-11-08] MEDS: NITRO-BID 2% TP SCH ×2 (11:50→17:51)
--- NOTE | 2018-11-08 13:28 | Progress Note ---
Assessment and Plan 73 y/o female with bowel obstruction and now acute respiratory failure with hypercapnea, likely multifactorial from pain medications, anti-psychotic therapy and inability to take deep breaths for ventilation, now with fungemia from picc line placement. 1. Trach placement. Will discuss with surgery who are already following but will need to ask about peg and current abdominal situation. 2. Follow blood cultures, still pending. ID following and managing abx/antifungal therapy. 3. Continue TPN, and trickle tube feeds 4. Will continue IV steroids for COPD, will drop to q12 tomorrow. Will likely need a prolonged taper but will try to move as fast as possible. 5. Will discuss with CM about need for trach and placement there after 6. Hold on lasix therapy for now. CCT 31 minutes. Subjective Date of service: 11/08/18 Principal diagnosis: low plt Interval history: No acute events. Had some anxiety this am so medicated with ativan. Stable. ABG shows respiratory alkalosis, but otherwise much improved. Objective Vital Signs - 12hr 11/08/18 11/08/18 11/08/18 01:30 02:00 02:30 Temperature Pulse Rate 131 H 132 H 127 H Pulse Rate [ From Monitor] Respiratory 27 H 25 H 27 H Rate Blood Pressure 106/56 106/56 121/51 O2 Sat by Pulse 100 99 97 Oximetry 11/08/18 11/08/18 11/08/18 03:00 03:13 03:30 Temperature Pulse Rate 147 H 122 H 138 H Pulse Rate [ From Monitor] Respiratory 24 25 H Rate Blood Pressure 129/90 129/90 125/39 O2 Sat by Pulse 96 98 100 Oximetry 11/08/18 11/08/18 11/08/18 03:45 04:00 04:30 Temperature 99.8 F H Pulse Rate 115 H 114 H Pulse Rate [ 123 H From Monitor] Respiratory 24 21 Rate Blood Pressure 131/37 128/41 O2 Sat by Pulse 99 99 Oximetry 11/08/18 11/08/18 11/08/18 05:00 05:30 05:44 Temperature 98.8 F Pulse Rate 152 H 109 H Pulse Rate [ From Monitor] Respiratory 23 25 H Rate Blood Pressure 133/53 114/53 O2 Sat by Pulse 96 97 Oximetry 11/08/18 11/08/18 11/08/18 06:00 06:30 07:00 Temperature Pulse Rate 99 H 103 H 108 H Pulse Rate [ From Monitor] Respiratory 22 21 24 Rate Blood Pressure 123/51 105/38 119/45 O2 Sat by Pulse 99 99 99 Oximetry 11/08/18 11/08/18 11/08/18 07:30 08:00 08:11 Temperature 97.4 F L Pulse Rate 107 H 124 H 126 H Pulse Rate [ 124 H From Monitor] Respiratory 25 H 20 Rate Blood Pressure 106/43 108/60 108/60 O2 Sat by Pulse 99 97 Oximetry 11/08/18 11/08/18 11/08/18 08:30 08:52 09:00 Temperature Pulse Rate 105 H 111 H 110 H Pulse Rate [ From Monitor] Respiratory 22 19 Rate Blood Pressure 117/58 117/58 126/59 O2 Sat by Pulse 98 99 96 Oximetry 11/08/18 11/08/18 11/08/18 09:30 10:00 10:30 Temperature Pulse Rate 107 H 99 H 102 H Pulse Rate [ From Monitor] Respiratory 20 19 21 Rate Blood Pressure 113/44 116/37 109/40 O2 Sat by Pulse 99 100 100 Oximetry 11/08/18 11/08/18 11/08/18 11:00 11:25 11:30 Temperature Pulse Rate 112 H 105 H 102 H Pulse Rate [ From Monitor] Respiratory 21 25 H Rate Blood Pressure 119/48 124/38 O2 Sat by Pulse 99 100 Oximetry 11/08/18 11/08/18 11/08/18 11:50 12:00 12:30 Temperature 97.4 F L Pulse Rate 116 H 123 H 116 H Pulse Rate [ 122 H From Monitor] Respiratory 26 H 21 Rate Blood Pressure 124/38 121/49 128/51 O2 Sat by Pulse 99 100 Oximetry Constitutional: alert Eyes: non-icteric ENT: other (orally intubated) Neck: supple, no JVD Effort: mildly labored Ascultation: Bilateral: clear, diminished breath sounds (at bases), wheezes, rales, rhonchi (sporadic) Percussion: Bilateral: not dull Cardiovascular: regular rate and rhythm Gastrointestinal: hypoactive bowel sounds, other (soft and depressible. Decreased bowel sounds, no rebound tenderness mild distention) Integumentary: normal Extremities: no edema Neurologic: normal mental status, non-focal exam Psychiatric: anxious CBC and BMP: 11/08/18 05:05 11/08/18 05:05 ABG, PT/INR, D-dimer: ABG POC ABG pH 7.524 (7.35-7.45) H 11/08/18 03:58 POC ABG pCO2 34.3 (35-45) L 11/08/18 03:58 POC ABG pO2 91 (80-105) 11/08/18 03:58 POC ABG HCO3 28.3 (22-26 mml/L) 11/08/18 03:58 POC ABG Total CO2 29 (23-27mmol/L) 11/08/18 03:58 POC ABG O2 Sat 98 11/08/18 03:58 Abnormal lab findings: Abnormal Labs 10/22/18 10/22/18 10/22/18 15:31 15:54 15:54 WBC 11.5 H RBC 5.35 H Hgb 17.4 H Hct 50.3 H MCV MCH 33 H MCHC 35 H Plt Count Lymph % (Auto) 12.6 L [place] % (Auto) 14.8 H Lymph # [place] # 1.7 H Seg Neutrophils % 72.5 H Seg Neuts % (Manual) Lymphocytes % (Manual) Seg Neutrophils # 8.3 H Seg Neutrophils # Man Lymphocytes # (Manual) POC ABG pH POC ABG pCO2 POC ABG pO2 Sodium 134 L Potassium Chloride 88.1 L Carbon Dioxide BUN 51 H Creatinine 2.1 H Glucose 166 H POC Glucose Calcium Phosphorus Magnesium NT-Pro-B Natriuret Pep Total Protein Albumin 3.4 L Lipase 10 L Free T4 10/23/18 10/23/18 10/23/18 04:32 04:32 10:53 WBC RBC Hgb Hct MCV MCH MCHC Plt Count Lymph % (Auto) 10.2 L [place] % (Auto) 14.7 H Lymph # 0.7 L [place] # 1.0 H Seg Neutrophils % 74.9 H Seg Neuts % (Manual) Lymphocytes % (Manual) Seg Neutrophils # Seg Neutrophils # Man Lymphocytes # (Manual) POC ABG pH POC ABG pCO2 POC ABG pO2 Sodium Potassium 3.1 L D 3.5 L Chloride Carbon Dioxide BUN 41 H 37 H Creatinine Glucose 111 H 110 H POC Glucose Calcium 8.1 L 8.1 L Phosphorus Magnesium NT-Pro-B Natriuret Pep Total Protein Albumin Lipase Free T4 10/24/18 10/24/18 10/25/18 05:34 05:34 04:51 WBC RBC Hgb Hct MCV MCH MCHC Plt Count Lymph % (Auto) [place] % (Auto) Lymph # [place] # Seg Neutrophils % Seg Neuts % (Manual) Lymphocytes % (Manual) Seg Neutrophils # Seg Neutrophils # Man Lymphocytes # (Manual) POC ABG pH POC ABG pCO2 POC ABG pO2 Sodium Potassium 3.2 L 3.1 L Chloride 109.8 H 114.2 H Carbon Dioxide 17 L D BUN 21 H Creatinine Glucose 134 H 171 H POC Glucose Calcium 7.7 L 7.0 L Phosphorus 0.80 L* Magnesium NT-Pro-B Natriuret Pep Total Protein Albumin Lipase Free T4 10/25/18 10/26/18 10/26/18 06:07 02:58 04:57 WBC RBC Hgb Hct MCV 99 H MCH 33 H MCHC Plt Count Lymph % (Auto) [place] % (Auto) Lymph # [place] # Seg Neutrophils % Seg Neuts % (Manual) Lymphocytes % (Manual) Seg Neutrophils # Seg Neutrophils # Man Lymphocytes # (Manual) POC ABG pH 7.090 L 7.320 L POC ABG pCO2 65.0 H 32.8 L POC ABG pO2 76 L Sodium Potassium Chloride Carbon Dioxide BUN Creatinine Glucose POC Glucose Calcium Phosphorus Magnesium NT-Pro-B Natriuret Pep Total Protein Albumin Lipase Free T4 10/26/18 10/26/18 10/26/18 06:03 06:03 11:52 WBC 23.8 H RBC Hgb 15.4 H Hct 46.1 H D MCV MCH MCHC Plt Count Lymph % (Auto) [place] % (Auto) Lymph # [place] # Seg Neutrophils % Seg Neuts % (Manual) Lymphocytes % (Manual) Seg Neutrophils # Seg Neutrophils # Man Lymphocytes # (Manual) POC ABG pH POC ABG pCO2 POC ABG pO2 Sodium Potassium Chloride 109.5 H Carbon Dioxide 18 L BUN Creatinine Glucose 128 H POC Glucose 117 H Calcium 8.3 L D Phosphorus Magnesium NT-Pro-B Natriuret Pep Total Protein Albumin Lipase Free T4 10/26/18 10/26/18 10/26/18 13:54 17:10 17:32 WBC RBC Hgb Hct MCV MCH MCHC Plt Count Lymph % (Auto) [place] % (Auto) Lymph # [place] # Seg Neutrophils % Seg Neuts % (Manual) Lymphocytes % (Manual) Seg Neutrophils # Seg Neutrophils # Man Lymphocytes # (Manual) POC ABG pH 7.215 L POC ABG pCO2 31.8 L POC ABG pO2 69 L 204 H Sodium Potassium 3.0 L D Chloride 114.5 H Carbon Dioxide 21 L BUN Creatinine Glucose POC Glucose Calcium 7.6 L Phosphorus Magnesium 1.40 L NT-Pro-B Natriuret Pep Total Protein Albumin Lipase Free T4 10/26/18 10/27/18 10/27/18 23:13 00:40 01:09 WBC RBC Hgb Hct MCV MCH MCHC Plt Count Lymph % (Auto) [place] % (Auto) Lymph # [place] # Seg Neutrophils % Seg Neuts % (Manual) Lymphocytes % (Manual) Seg Neutrophils # Seg Neutrophils # Man Lymphocytes # (Manual) POC ABG pH POC ABG pCO2 POC ABG pO2 Sodium Potassium 3.4 L Chloride 115.0 H Carbon Dioxide 14 L D BUN Creatinine Glucose 228 H POC Glucose 48 L 264 H Calcium 7.1 L Phosphorus Magnesium NT-Pro-B Natriuret Pep Total Protein Albumin Lipase Free T4 10/27/18 10/27/18 10/27/18 05:00 05:00 05:16 WBC 22.5 H RBC Hgb 14.7 H Hct 44.4 H MCV MCH MCHC Plt Count Lymph % (Auto) [place] % (Auto) Lymph # [place] # Seg Neutrophils % Seg Neuts % (Manual) Lymphocytes % (Manual) Seg Neutrophils # Seg Neutrophils # Man Lymphocytes # (Manual) POC ABG pH 7.304 L POC ABG pCO2 POC ABG pO2 116 H Sodium Potassium Chloride 118.4 H Carbon Dioxide 16 L BUN Creatinine Glucose 123 H POC Glucose Calcium 7.7 L Phosphorus Magnesium 2.60 H NT-Pro-B Natriuret Pep Total Protein Albumin Lipase Free T4 10/28/18 10/28/18 10/28/18 04:25 04:25 15:37 WBC 23.5 H RBC Hgb Hct MCV MCH MCHC Plt Count Lymph % (Auto) [place] % (Auto) Lymph # [place] # Seg Neutrophils % Seg Neuts % (Manual) Lymphocytes % (Manual) Seg Neutrophils # Seg Neutrophils # Man Lymphocytes # (Manual) POC ABG pH POC ABG pCO2 POC ABG pO2 Sodium 147 H Potassium Chloride 116.9 H Carbon Dioxide 16 L BUN 23 H Creatinine Glucose POC Glucose 114 H Calcium 8.0 L Phosphorus Magnesium NT-Pro-B Natriuret Pep Total Protein Albumin Lipase Free T4 10/28/18 10/28/18 10/28/18 20:33 22:07 23:31 WBC RBC Hgb Hct MCV MCH MCHC Plt Count Lymph % (Auto) [place] % (Auto) Lymph # [place] # Seg Neutrophils % Seg Neuts % (Manual) Lymphocytes % (Manual) Seg Neutrophils # Seg Neutrophils # Man Lymphocytes # (Manual) POC ABG pH 7.202 L 7.235 L POC ABG pCO2 POC ABG pO2 71 L Sodium Potassium Chloride Carbon Dioxide BUN Creatinine Glucose POC Glucose 207 H Calcium Phosphorus Magnesium NT-Pro-B Natriuret Pep Total Protein Albumin Lipase Free T4 10/29/18 10/29/18 10/29/18 04:30 04:30 05:26 WBC 21.1 H RBC Hgb Hct MCV MCH MCHC Plt Count Lymph % (Auto) [place] % (Auto) Lymph # [place] # Seg Neutrophils % Seg Neuts % (Manual) 97.0 H Lymphocytes % (Manual) 3.0 L Seg Neutrophils # Seg Neutrophils # Man 20.5 H Lymphocytes # (Manual) 0.6 L POC ABG pH 7.305 L POC ABG pCO2 30.5 L POC ABG pO2 75 L Sodium 147 H Potassium 3.5 L Chloride 120.0 H Carbon Dioxide 17 L BUN 30 H Creatinine Glucose 246 H POC Glucose Calcium 7.9 L Phosphorus Magnesium NT-Pro-B Natriuret Pep Total Protein Albumin Lipase Free T4 10/29/18 10/29/18 10/29/18 05:36 11:39 18:00 WBC RBC Hgb Hct MCV MCH MCHC Plt Count Lymph % (Auto) [place] % (Auto) Lymph # [place] # Seg Neutrophils % Seg Neuts % (Manual) Lymphocytes % (Manual) Seg Neutrophils # Seg Neutrophils # Man Lymphocytes # (Manual) POC ABG pH POC ABG pCO2 POC ABG pO2 Sodium Potassium Chloride Carbon Dioxide BUN Creatinine Glucose POC Glucose 204 H 224 H 221 H Calcium Phosphorus Magnesium NT-Pro-B Natriuret Pep Total Protein Albumin Lipase Free T4 10/29/18 10/30/18 10/30/18 23:17 05:00 05:00 WBC 21.4 H RBC Hgb Hct MCV MCH MCHC Plt Count 134 L Lymph % (Auto) [place] % (Auto) Lymph # [place] # Seg Neutrophils % Seg Neuts % (Manual) 97.0 H Lymphocytes % (Manual) 3.0 L Seg Neutrophils # Seg Neutrophils # Man 20.8 H Lymphocytes # (Manual) 0.6 L POC ABG pH POC ABG pCO2 POC ABG pO2 Sodium 148 H Potassium 3.1 L Chloride 120.3 H Carbon Dioxide 18 L BUN 31 H Creatinine Glucose 205 H POC Glucose 181 H Calcium 8.0 L Phosphorus Magnesium NT-Pro-B Natriuret Pep Total Protein Albumin Lipase Free T4 10/30/18 10/30/18 10/30/18 05:14 05:25 05:26 WBC RBC Hgb Hct MCV MCH MCHC Plt Count Lymph % (Auto) [place] % (Auto) Lymph # [place] # Seg Neutrophils % Seg Neuts % (Manual) Lymphocytes % (Manual) Seg Neutrophils # Seg Neutrophils # Man Lymphocytes # (Manual) POC ABG pH 7.296 L 7.245 L POC ABG pCO2 31.1 L POC ABG pO2 54 L 59 L Sodium Potassium Chloride Carbon Dioxide BUN Creatinine Glucose POC Glucose 199 H Calcium Phosphorus Magnesium NT-Pro-B Natriuret Pep Total Protein Albumin Lipase Free T4 10/30/18 10/30/18 10/31/18 13:23 18:25 00:22 WBC RBC Hgb Hct MCV MCH MCHC Plt Count Lymph % (Auto) [place] % (Auto) Lymph # [place] # Seg Neutrophils % Seg Neuts % (Manual) Lymphocytes % (Manual) Seg Neutrophils # Seg Neutrophils # Man Lymphocytes # (Manual) POC ABG pH POC ABG pCO2 POC ABG pO2 Sodium Potassium Chloride Carbon Dioxide BUN Creatinine Glucose POC Glucose 146 H 158 H 162 H Calcium Phosphorus Magnesium NT-Pro-B Natriuret Pep Total Protein Albumin Lipase Free T4 10/31/18 10/31/18 10/31/18 04:39 05:14 07:05 WBC RBC Hgb Hct MCV MCH MCHC Plt Count Lymph % (Auto) [place] % (Auto) Lymph # [place] # Seg Neutrophils % Seg Neuts % (Manual) Lymphocytes % (Manual) Seg Neutrophils # Seg Neutrophils # Man Lymphocytes # (Manual) POC ABG pH 7.238 L POC ABG pCO2 POC ABG pO2 Sodium Potassium Chloride 115.8 H Carbon Dioxide 18 L BUN 39 H Creatinine 1.3 H Glucose 167 H POC Glucose 145 H Calcium 7.5 L Phosphorus 1.80 L Magnesium NT-Pro-B Natriuret Pep Total Protein Albumin Lipase Free T4 10/31/18 10/31/18 10/31/18 10:43 12:03 17:00 WBC RBC Hgb Hct MCV MCH MCHC Plt Count Lymph % (Auto) [place] % (Auto) Lymph # [place] # Seg Neutrophils % Seg Neuts % (Manual) Lymphocytes % (Manual) Seg Neutrophils # Seg Neutrophils # Man Lymphocytes # (Manual) POC ABG pH 7.304 L POC ABG pCO2 33.3 L POC ABG pO2 Sodium Potassium Chloride Carbon Dioxide BUN Creatinine Glucose POC Glucose 159 H Calcium Phosphorus Magnesium NT-Pro-B Natriuret Pep Total Protein Albumin Lipase Free T4 0.49 L 10/31/18 11/01/18 11/01/18 17:00 00:44 05:27 WBC RBC Hgb Hct MCV MCH MCHC Plt Count Lymph % (Auto) [place] % (Auto) Lymph # [place] # Seg Neutrophils % Seg Neuts % (Manual) Lymphocytes % (Manual) Seg Neutrophils # Seg Neutrophils # Man Lymphocytes # (Manual) POC ABG pH 7.248 L POC ABG pCO2 34.8 L POC ABG pO2 135 H Sodium Potassium Chloride Carbon Dioxide BUN Creatinine Glucose POC Glucose 127 H 118 H Calcium Phosphorus Magnesium NT-Pro-B Natriuret Pep Total Protein Albumin Lipase Free T4 11/01/18 11/01/18 11/01/18 06:40 06:40 06:53 WBC 18.9 H RBC 3.63 L Hgb Hct MCV MCH MCHC Plt Count 64 L Lymph % (Auto) [place] % (Auto) Lymph # [place] # Seg Neutrophils % Seg Neuts % (Manual) 98.0 H Lymphocytes % (Manual) 1.0 L Seg Neutrophils # Seg Neutrophils # Man 18.5 H Lymphocytes # (Manual) 0.2 L POC ABG pH POC ABG pCO2 POC ABG pO2 Sodium Potassium 3.5 L Chloride 114.2 H Carbon Dioxide 17 L BUN 49 H Creatinine Glucose 107 H POC Glucose 127 H Calcium 7.3 L Phosphorus Magnesium 1.60 L NT-Pro-B Natriuret Pep Total Protein Albumin Lipase Free T4 11/01/18 11/01/18 11/01/18 11:49 13:13 17:24 WBC RBC Hgb Hct MCV MCH MCHC Plt Count Lymph % (Auto) [place] % (Auto) Lymph # [place] # Seg Neutrophils % Seg Neuts % (Manual) Lymphocytes % (Manual) Seg Neutrophils # Seg Neutrophils # Man Lymphocytes # (Manual) POC ABG pH POC ABG pCO2 POC ABG pO2 182 H Sodium Potassium Chloride Carbon Dioxide BUN Creatinine Glucose POC Glucose 134 H 111 H Calcium Phosphorus Magnesium NT-Pro-B Natriuret Pep Total Protein Albumin Lipase Free T4 11/01/18 11/02/18 11/02/18 23:07 04:32 05:00 WBC RBC Hgb Hct MCV MCH MCHC Plt Count Lymph % (Auto) [place] % (Auto) Lymph # [place] # Seg Neutrophils % Seg Neuts % (Manual) Lymphocytes % (Manual) Seg Neutrophils # Seg Neutrophils # Man Lymphocytes # (Manual) POC ABG pH 7.244 L POC ABG pCO2 33.2 L POC ABG pO2 123 H Sodium Potassium 3.0 L Chloride 114.1 H Carbon Dioxide 15 L BUN 47 H Creatinine Glucose 127 H POC Glucose 123 H Calcium 7.7 L Phosphorus Magnesium NT-Pro-B Natriuret Pep Total Protein Albumin Lipase Free T4 11/02/18 11/02/18 11/02/18 05:00 05:29 11:27 WBC RBC Hgb Hct MCV MCH MCHC Plt Count Lymph % (Auto) [place] % (Auto) Lymph # [place] # Seg Neutrophils % Seg Neuts % (Manual) Lymphocytes % (Manual) Seg Neutrophils # Seg Neutrophils # Man Lymphocytes # (Manual) POC ABG pH POC ABG pCO2 POC ABG pO2 Sodium Potassium Chloride Carbon Dioxide BUN Creatinine Glucose POC Glucose 118 H 137 H Calcium Phosphorus Magnesium 1.60 L NT-Pro-B Natriuret Pep Total Protein Albumin Lipase Free T4 11/02/18 11/02/18 11/03/18 12:53 23:35 04:14 WBC RBC Hgb Hct MCV MCH MCHC Plt Count Lymph % (Auto) [place] % (Auto) Lymph # [place] # Seg Neutrophils % Seg Neuts % (Manual) Lymphocytes % (Manual) Seg Neutrophils # Seg Neutrophils # Man Lymphocytes # (Manual) POC ABG pH POC ABG pCO2 30.3 L POC ABG pO2 134 H 129 H Sodium Potassium Chloride Carbon Dioxide BUN Creatinine Glucose POC Glucose 115 H Calcium Phosphorus Magnesium NT-Pro-B Natriuret Pep Total Protein Albumin Lipase Free T4 11/03/18 11/03/18 11/03/18 05:34 11:30 11:30 WBC 16.4 H RBC 3.50 L Hgb Hct MCV MCH MCHC Plt Count 136 L D Lymph % (Auto) [place] % (Auto) Lymph # [place] # Seg Neutrophils % Seg Neuts % (Manual) 97.0 H Lymphocytes % (Manual) 2.0 L Seg Neutrophils # Seg Neutrophils # Man 15.9 H Lymphocytes # (Manual) 0.3 L POC ABG pH POC ABG pCO2 POC ABG pO2 Sodium Potassium 3.1 L Chloride 110.4 H Carbon Dioxide 17 L BUN 41 H Creatinine Glucose 129 H POC Glucose 116 H Calcium 7.7 L Phosphorus Magnesium 1.60 L NT-Pro-B Natriuret Pep Total Protein 4.2 L Albumin 1.2 L Lipase Free T4 11/03/18 11/03/18 11/03/18 12:01 17:35 21:37 WBC RBC Hgb Hct MCV MCH MCHC Plt Count Lymph % (Auto) [place] % (Auto) Lymph # [place] # Seg Neutrophils % Seg Neuts % (Manual) Lymphocytes % (Manual) Seg Neutrophils # Seg Neutrophils # Man Lymphocytes # (Manual) POC ABG pH POC ABG pCO2 POC ABG pO2 Sodium Potassium Chloride Carbon Dioxide BUN Creatinine Glucose POC Glucose 132 H 132 H 126 H Calcium Phosphorus Magnesium NT-Pro-B Natriuret Pep Total Protein Albumin Lipase Free T4 11/03/18 11/04/18 11/04/18 23:30 05:14 05:15 WBC RBC Hgb Hct MCV MCH MCHC Plt Count Lymph % (Auto) [place] % (Auto) Lymph # [place] # Seg Neutrophils % Seg Neuts % (Manual) Lymphocytes % (Manual) Seg Neutrophils # Seg Neutrophils # Man Lymphocytes # (Manual) POC ABG pH POC ABG pCO2 30.9 L POC ABG pO2 192 H Sodium Potassium Chloride Carbon Dioxide BUN Creatinine Glucose POC Glucose 115 H 123 H Calcium Phosphorus Magnesium NT-Pro-B Natriuret Pep Total Protein Albumin Lipase Free T4 11/04/18 11/04/18 11/04/18 09:39 09:39 11:43 WBC 15.2 H RBC 3.18 L Hgb Hct 29.9 L MCV MCH MCHC Plt Count Lymph % (Auto) [place] % (Auto) Lymph # [place] # Seg Neutrophils % Seg Neuts % (Manual) 98.0 H Lymphocytes % (Manual) 1.0 L Seg Neutrophils # Seg Neutrophils # Man 14.9 H Lymphocytes # (Manual) 0.2 L POC ABG pH POC ABG pCO2 POC ABG pO2 Sodium 135 L D Potassium Chloride 109.5 H Carbon Dioxide 16 L BUN 46 H Creatinine Glucose 136 H POC Glucose 138 H Calcium 8.0 L Phosphorus Magnesium NT-Pro-B Natriuret Pep Total Protein Albumin Lipase Free T4 11/04/18 11/04/18 11/05/18 17:31 23:42 05:23 WBC RBC Hgb Hct MCV MCH MCHC Plt Count Lymph % (Auto) [place] % (Auto) Lymph # [place] # Seg Neutrophils % Seg Neuts % (Manual) Lymphocytes % (Manual) Seg Neutrophils # Seg Neutrophils # Man Lymphocytes # (Manual) POC ABG pH POC ABG pCO2 POC ABG pO2 Sodium Potassium Chloride Carbon Dioxide BUN Creatinine Glucose POC Glucose 139 H 138 H 148 H Calcium Phosphorus Magnesium NT-Pro-B Natriuret Pep Total Protein Albumin Lipase Free T4 11/05/18 11/05/18 11/05/18 05:30 05:30 11:46 WBC 14.2 H RBC 3.12 L Hgb 10.0 L Hct 29.1 L MCV MCH MCHC Plt Count Lymph % (Auto) [place] % (Auto) Lymph # [place] # Seg Neutrophils % Seg Neuts % (Manual) Lymphocytes % (Manual) Seg Neutrophils # Seg Neutrophils # Man Lymphocytes # (Manual) POC ABG pH POC ABG pCO2 POC ABG pO2 Sodium Potassium Chloride Carbon Dioxide 21 L BUN 42 H Creatinine Glucose 125 H POC Glucose 157 H Calcium 7.9 L Phosphorus Magnesium NT-Pro-B Natriuret Pep Total Protein Albumin Lipase Free T4 11/05/18 11/05/18 11/05/18 17:09 20:03 23:43 WBC RBC Hgb Hct MCV MCH MCHC Plt Count Lymph % (Auto) [place] % (Auto) Lymph # [place] # Seg Neutrophils % Seg Neuts % (Manual) Lymphocytes % (Manual) Seg Neutrophils # Seg Neutrophils # Man Lymphocytes # (Manual) POC ABG pH POC ABG pCO2 POC ABG pO2 76 L Sodium Potassium Chloride Carbon Dioxide BUN Creatinine Glucose POC Glucose 142 H 204 H Calcium Phosphorus Magnesium NT-Pro-B Natriuret Pep Total Protein Albumin Lipase Free T4 11/06/18 11/06/18 11/06/18 04:21 12:14 17:17 WBC RBC Hgb Hct MCV MCH MCHC Plt Count Lymph % (Auto) [place] % (Auto) Lymph # [place] # Seg Neutrophils % Seg Neuts % (Manual) Lymphocytes % (Manual) Seg Neutrophils # Seg Neutrophils # Man Lymphocytes # (Manual) POC ABG pH POC ABG pCO2 POC ABG pO2 Sodium 133 L Potassium Chloride Carbon Dioxide 18 L BUN 47 H Creatinine Glucose 187 H POC Glucose 232 H 199 H Calcium 7.8 L Phosphorus 5.30 H D Magnesium 2.50 H NT-Pro-B Natriuret Pep Total Protein Albumin Lipase Free T4 11/06/18 11/06/18 11/07/18 19:46 23:30 00:00 WBC RBC Hgb Hct MCV MCH MCHC Plt Count Lymph % (Auto) [place] % (Auto) Lymph # [place] # Seg Neutrophils % Seg Neuts % (Manual) Lymphocytes % (Manual) Seg Neutrophils # Seg Neutrophils # Man Lymphocytes # (Manual) POC ABG pH 7.317 L POC ABG pCO2 50.3 H POC ABG pO2 58 L 57 L Sodium Potassium Chloride Carbon Dioxide BUN Creatinine Glucose POC Glucose 224 H Calcium Phosphorus Magnesium NT-Pro-B Natriuret Pep Total Protein Albumin Lipase Free T4 11/07/18 11/07/18 11/07/18 04:55 04:55 04:55 WBC 25.2 H RBC 3.64 L Hgb Hct MCV MCH MCHC Plt Count Lymph % (Auto) [place] % (Auto) Lymph # [place] # Seg Neutrophils % Seg Neuts % (Manual) Lymphocytes % (Manual) Seg Neutrophils # Seg Neutrophils # Man Lymphocytes # (Manual) POC ABG pH POC ABG pCO2 POC ABG pO2 Sodium Potassium Chloride Carbon Dioxide BUN 54 H Creatinine Glucose 270 H POC Glucose Calcium 7.9 L Phosphorus 5.00 H Magnesium NT-Pro-B Natriuret Pep 4507 H Total Protein Albumin Lipase Free T4 11/07/18 11/07/18 11/07/18 05:46 08:08 11:52 WBC RBC Hgb Hct MCV MCH MCHC Plt Count Lymph % (Auto) [place] % (Auto) Lymph # [place] # Seg Neutrophils % Seg Neuts % (Manual) Lymphocytes % (Manual) Seg Neutrophils # Seg Neutrophils # Man Lymphocytes # (Manual) POC ABG pH POC ABG pCO2 47.6 H POC ABG pO2 106 H Sodium Potassium Chloride Carbon Dioxide BUN Creatinine Glucose POC Glucose 266 H 323 H Calcium Phosphorus Magnesium NT-Pro-B Natriuret Pep Total Protein Albumin Lipase Free T4 11/07/18 11/07/18 11/07/18 12:29 17:57 23:48 WBC RBC Hgb Hct MCV MCH MCHC Plt Count Lymph % (Auto) [place] % (Auto) Lymph # [place] # Seg Neutrophils % Seg Neuts % (Manual) Lymphocytes % (Manual) Seg Neutrophils # Seg Neutrophils # Man Lymphocytes # (Manual) POC ABG pH POC ABG pCO2 POC ABG pO2 Sodium Potassium Chloride Carbon Dioxide BUN Creatinine Glucose POC Glucose 325 H 286 H 231 H Calcium Phosphorus Magnesium NT-Pro-B Natriuret Pep Total Protein Albumin Lipase Free T4 11/08/18 11/08/18 11/08/18 03:58 05:05 05:05 WBC 18.4 H RBC 3.20 L Hgb 10.0 L Hct 29.7 L MCV MCH MCHC Plt Count Lymph % (Auto) [place] % (Auto) Lymph # [place] # Seg Neutrophils % Seg Neuts % (Manual) Lymphocytes % (Manual) Seg Neutrophils # Seg Neutrophils # Man Lymphocytes # (Manual) POC ABG pH 7.524 H POC ABG pCO2 34.3 L POC ABG pO2 Sodium Potassium Chloride Carbon Dioxide BUN 61 H Creatinine Glucose 253 H POC Glucose Calcium 7.6 L Phosphorus Magnesium NT-Pro-B Natriuret Pep Total Protein Albumin Lipase Free T4 11/08/18 11/08/18 05:28 11:28 WBC RBC Hgb Hct MCV MCH MCHC Plt Count Lymph % (Auto) [place] % (Auto) Lymph # [place] # Seg Neutrophils % Seg Neuts % (Manual) Lymphocytes % (Manual) Seg Neutrophils # Seg Neutrophils # Man Lymphocytes # (Manual) POC ABG pH POC ABG pCO2 POC ABG pO2 Sodium Potassium Chloride Carbon Dioxide BUN Creatinine Glucose POC Glucose 295 H 253 H Calcium Phosphorus Magnesium NT-Pro-B Natriuret Pep Total Protein Albumin Lipase Free T4 Allied health notes reviewed: nursing
[2018-11-08] MEDS ORDERED: TPN ADULT 2,400 ML IV SCH (20:00)
[2018-11-08] MEDS: LOVENOX SUB-Q SCH (21:43)
[2018-11-09] MEDS: SOLU-Medrol IV SCH ×4 (00:54→21:17)
[2018-11-09] MEDS: ATIVAN IV PRN ×3 (00:54→21:18)
[2018-11-09] MEDS: SUBLIMAZE IV PRN ×2 (00:55→21:17)
[2018-11-09] MEDS: HumaLOG SUB-Q SCH ×3 (00:57→18:39)
--- NOTE | 2018-11-09 01:37 | XRay Report ---
PROCEDURE: XR CHEST 1V AP TECHNIQUE: Chest radiograph single view. HISTORY: follow up respiratory failure COMPARISONS: November 08, 2018 . FINDINGS: Heart: Normal. Mediastinum/Vessels: Normal. Lungs/Pleural space: Normal. Bony thorax: No acute osseous abnormality. Life support devices: The endotracheal tube ends 2 cm above the rekha. A nasogastric tube ends below the hemidiaphragms. Right central catheter ends in the SVC. IMPRESSION: No evidence of an acute infiltrate or effusion. Tubes and lines are properly positioned. . This document is electronically signed by Marcela Brooks DO., November 09 2018 01:35:49 AM ET
--- NOTE | 2018-11-09 06:38 | Progress Note ---
Assessment and Plan 73 y/o female with bowel obstruction and now acute respiratory failure with hypercapnea, likely multifactorial from pain medications, anti-psychotic therapy and inability to take deep breaths for ventilation, now with fungemia from picc line placement. 1. Patient needs trach. This is her third intubation and she has failed extubation twice. She has known COPD, FEV1 is unknown but given multiple failures, trach is the next and only option. Patient and counseled on this and both in agreement. Surgery is already following we just need to make them aware this is our plan. Also need to ask them about the possiblity of PEG. She is on TPN and will likely be for sometime but thinking about the long run. 2. Follow blood cultures, still pending. ID following and managing abx/antifungal therapy. 3. Continue TPN, and trickle tube feeds 4. Will continue IV steroids for COPD. Was going to drop to q12 but will drop to q8 instead. Same strength. 5. CM aware of need for long-term placement post trach 6. Cardiology has elected to do BID lasix therapy. This plus the nitro past has significantly dropped the BP, so much where nursing concerned about giving beta stephon which is needed. Will discontinue nitro paste. Pulmonary edema has resolved and will ask cardiology to consider stopping BID lasix therapy at this point and consider only PRN doses. 7. Needs labs today. CCT 31 minutes. Subjective Date of service: 11/09/18 Principal diagnosis: low plt Interval history: Tachy this am. Awake. BP marginal. Does not appear in distress but complains of headache. not at bedside yet. Has nitro paste on chest. Ordered by cards on Saturday but I cannot see in their note as to why. Objective Vital Signs - 12hr 11/08/18 11/08/18 11/08/18 19:00 19:30 19:58 Temperature Pulse Rate 135 H 120 H Pulse Rate [ 114 H Anterior Bilateral Throughout] Pulse Rate [ From Monitor] Respiratory 20 23 Rate Respiratory 21 Rate [Anterior Bilateral Throughout] Blood Pressure 118/47 122/44 O2 Sat by Pulse 97 97 Oximetry 11/08/18 11/08/18 11/08/18 20:00 20:27 20:30 Temperature 98.3 F Pulse Rate 100 H 100 H Pulse Rate [ 102 H Anterior Bilateral Throughout] Pulse Rate [ 108 H From Monitor] Respiratory 19 22 Rate Respiratory 22 Rate [Anterior Bilateral Throughout] Blood Pressure 114/40 107/40 O2 Sat by Pulse 97 98 Oximetry 11/08/18 11/08/18 11/08/18 20:34 21:00 21:22 Temperature Pulse Rate 139 H 89 101 H Pulse Rate [ Anterior Bilateral Throughout] Pulse Rate [ From Monitor] Respiratory 17 21 Rate Respiratory Rate [Anterior Bilateral Throughout] Blood Pressure 114/40 112/39 112/39 O2 Sat by Pulse 100 99 Oximetry 11/08/18 11/08/18 11/08/18 21:30 21:36 22:00 Temperature Pulse Rate 105 H 120 H 105 H Pulse Rate [ Anterior Bilateral Throughout] Pulse Rate [ From Monitor] Respiratory 23 21 18 Rate Respiratory Rate [Anterior Bilateral Throughout] Blood Pressure 108/38 108/38 102/40 O2 Sat by Pulse 98 99 97 Oximetry 11/08/18 11/08/18 11/08/18 22:30 23:00 23:30 Temperature Pulse Rate 101 H 100 H 105 H Pulse Rate [ Anterior Bilateral Throughout] Pulse Rate [ From Monitor] Respiratory 22 22 22 Rate Respiratory Rate [Anterior Bilateral Throughout] Blood Pressure 101/38 104/38 108/38 O2 Sat by Pulse 99 99 98 Oximetry 11/09/18 11/09/18 11/09/18 00:00 00:21 00:30 Temperature 98.5 F Pulse Rate 119 H 133 H 142 H Pulse Rate [ Anterior Bilateral Throughout] Pulse Rate [ 112 H From Monitor] Respiratory 18 24 Rate Respiratory Rate [Anterior Bilateral Throughout] Blood Pressure 99/37 99/37 118/45 O2 Sat by Pulse 98 99 96 Oximetry 11/09/18 11/09/18 11/09/18 01:00 01:30 02:00 Temperature Pulse Rate 110 H 105 H 109 H Pulse Rate [ Anterior Bilateral Throughout] Pulse Rate [ From Monitor] Respiratory 20 23 18 Rate Respiratory Rate [Anterior Bilateral Throughout] Blood Pressure 118/45 99/35 106/44 O2 Sat by Pulse 98 98 99 Oximetry 11/09/18 11/09/18 11/09/18 02:30 03:00 03:15 Temperature Pulse Rate 132 H 106 H 140 H Pulse Rate [ Anterior Bilateral Throughout] Pulse Rate [ From Monitor] Respiratory 24 24 Rate Respiratory Rate [Anterior Bilateral Throughout] Blood Pressure 96/42 95/35 95/35 O2 Sat by Pulse 97 98 98 Oximetry 11/09/18 11/09/1819 03:30 04:00 04:30 Temperature 98.7 F Pulse Rate 143 H 129 H 137 H Pulse Rate [ Anterior Bilateral Throughout] Pulse Rate [ 129 H From Monitor] Respiratory 22 26 H 22 Rate Respiratory Rate [Anterior Bilateral Throughout] Blood Pressure 109/53 113/47 107/40 O2 Sat by Pulse 96 95 96 Oximetry 11/09/18 11/09/18 11/09/18 05:00 05:30 06:00 Temperature Pulse Rate 110 H 105 H 110 H Pulse Rate [ Anterior Bilateral Throughout] Pulse Rate [ From Monitor] Respiratory 23 23 20 Rate Respiratory Rate [Anterior Bilateral Throughout] Blood Pressure 110/50 113/46 102/39 O2 Sat by Pulse 96 98 97 Oximetry Constitutional: alert Eyes: non-icteric ENT: other (orally intubated) Neck: supple, no JVD Effort: mildly labored Ascultation: Bilateral: clear, diminished breath sounds (at bases) Percussion: Bilateral: not dull Cardiovascular: regular rate and rhythm Gastrointestinal: hypoactive bowel sounds, other (soft and depressible. Decreased bowel sounds, no rebound tenderness mild distention) Integumentary: normal Extremities: no edema Neurologic: normal mental status, non-focal exam Psychiatric: anxious CBC and BMP: 11/08/18 05:05 11/08/18 05:05 ABG, PT/INR, D-dimer: ABG POC ABG pH 7.509 (7.35-7.45) H 11/09/18 04:06 POC ABG pCO2 42.4 (35-45) 11/09/18 04:06 POC ABG pO2 98 (80-105) 11/09/18 04:06 POC ABG HCO3 33.8 (22-26 mml/L) 11/09/18 04:06 POC ABG Total CO2 35 (23-27mmol/L) 11/09/18 04:06 POC ABG O2 Sat 98 11/09/18 04:06 Abnormal lab findings: Abnormal Labs 10/22/18 10/22/18 10/22/18 15:31 15:54 15:54 WBC 11.5 H RBC 5.35 H Hgb 17.4 H Hct 50.3 H MCV MCH 33 H MCHC 35 H Plt Count Lymph % (Auto) 12.6 L [place] % (Auto) 14.8 H Lymph # [place] # 1.7 H Seg Neutrophils % 72.5 H Seg Neuts % (Manual) Lymphocytes % (Manual) Seg Neutrophils # 8.3 H Seg Neutrophils # Man Lymphocytes # (Manual) POC ABG pH POC ABG pCO2 POC ABG pO2 Sodium 134 L Potassium Chloride 88.1 L Carbon Dioxide BUN 51 H Creatinine 2.1 H Glucose 166 H POC Glucose Calcium Phosphorus Magnesium NT-Pro-B Natriuret Pep Total Protein Albumin 3.4 L Lipase 10 L Free T4 10/23/18 10/23/18 10/23/18 04:32 04:32 10:53 WBC RBC Hgb Hct MCV MCH MCHC Plt Count Lymph % (Auto) 10.2 L [place] % (Auto) 14.7 H Lymph # 0.7 L [place] # 1.0 H Seg Neutrophils % 74.9 H Seg Neuts % (Manual) Lymphocytes % (Manual) Seg Neutrophils # Seg Neutrophils # Man Lymphocytes # (Manual) POC ABG pH POC ABG pCO2 POC ABG pO2 Sodium Potassium 3.1 L D 3.5 L Chloride Carbon Dioxide BUN 41 H 37 H Creatinine Glucose 111 H 110 H POC Glucose Calcium 8.1 L 8.1 L Phosphorus Magnesium NT-Pro-B Natriuret Pep Total Protein Albumin Lipase Free T4 10/24/18 10/24/18 10/25/18 05:34 05:34 04:51 WBC RBC Hgb Hct MCV MCH MCHC Plt Count Lymph % (Auto) [place] % (Auto) Lymph # [place] # Seg Neutrophils % Seg Neuts % (Manual) Lymphocytes % (Manual) Seg Neutrophils # Seg Neutrophils # Man Lymphocytes # (Manual) POC ABG pH POC ABG pCO2 POC ABG pO2 Sodium Potassium 3.2 L 3.1 L Chloride 109.8 H 114.2 H Carbon Dioxide 17 L D BUN 21 H Creatinine Glucose 134 H 171 H POC Glucose Calcium 7.7 L 7.0 L Phosphorus 0.80 L* Magnesium NT-Pro-B Natriuret Pep Total Protein Albumin Lipase Free T4 10/25/18 10/26/18 10/26/18 06:07 02:58 04:57 WBC RBC Hgb Hct MCV 99 H MCH 33 H MCHC Plt Count Lymph % (Auto) [place] % (Auto) Lymph # [place] # Seg Neutrophils % Seg Neuts % (Manual) Lymphocytes % (Manual) Seg Neutrophils # Seg Neutrophils # Man Lymphocytes # (Manual) POC ABG pH 7.090 L 7.320 L POC ABG pCO2 65.0 H 32.8 L POC ABG pO2 76 L Sodium Potassium Chloride Carbon Dioxide BUN Creatinine Glucose POC Glucose Calcium Phosphorus Magnesium NT-Pro-B Natriuret Pep Total Protein Albumin Lipase Free T4 10/26/18 10/26/18 10/26/18 06:03 06:03 11:52 WBC 23.8 H RBC Hgb 15.4 H Hct 46.1 H D MCV MCH MCHC Plt Count Lymph % (Auto) [place] % (Auto) Lymph # [place] # Seg Neutrophils % Seg Neuts % (Manual) Lymphocytes % (Manual) Seg Neutrophils # Seg Neutrophils # Man Lymphocytes # (Manual) POC ABG pH POC ABG pCO2 POC ABG pO2 Sodium Potassium Chloride 109.5 H Carbon Dioxide 18 L BUN Creatinine Glucose 128 H POC Glucose 117 H Calcium 8.3 L D Phosphorus Magnesium NT-Pro-B Natriuret Pep Total Protein Albumin Lipase Free T4 10/26/18 10/26/18 10/26/18 13:54 17:10 17:32 WBC RBC Hgb Hct MCV MCH MCHC Plt Count Lymph % (Auto) [place] % (Auto) Lymph # [place] # Seg Neutrophils % Seg Neuts % (Manual) Lymphocytes % (Manual) Seg Neutrophils # Seg Neutrophils # Man Lymphocytes # (Manual) POC ABG pH 7.215 L POC ABG pCO2 31.8 L POC ABG pO2 69 L 204 H Sodium Potassium 3.0 L D Chloride 114.5 H Carbon Dioxide 21 L BUN Creatinine Glucose POC Glucose Calcium 7.6 L Phosphorus Magnesium 1.40 L NT-Pro-B Natriuret Pep Total Protein Albumin Lipase Free T4 10/26/18 10/27/18 10/27/18 23:13 00:40 01:09 WBC RBC Hgb Hct MCV MCH MCHC Plt Count Lymph % (Auto) [place] % (Auto) Lymph # [place] # Seg Neutrophils % Seg Neuts % (Manual) Lymphocytes % (Manual) Seg Neutrophils # Seg Neutrophils # Man Lymphocytes # (Manual) POC ABG pH POC ABG pCO2 POC ABG pO2 Sodium Potassium 3.4 L Chloride 115.0 H Carbon Dioxide 14 L D BUN Creatinine Glucose 228 H POC Glucose 48 L 264 H Calcium 7.1 L Phosphorus Magnesium NT-Pro-B Natriuret Pep Total Protein Albumin Lipase Free T4 10/27/18 10/27/18 10/27/18 05:00 05:00 05:16 WBC 22.5 H RBC Hgb 14.7 H Hct 44.4 H MCV MCH MCHC Plt Count Lymph % (Auto) [place] % (Auto) Lymph # [place] # Seg Neutrophils % Seg Neuts % (Manual) Lymphocytes % (Manual) Seg Neutrophils # Seg Neutrophils # Man Lymphocytes # (Manual) POC ABG pH 7.304 L POC ABG pCO2 POC ABG pO2 116 H Sodium Potassium Chloride 118.4 H Carbon Dioxide 16 L BUN Creatinine Glucose 123 H POC Glucose Calcium 7.7 L Phosphorus Magnesium 2.60 H NT-Pro-B Natriuret Pep Total Protein Albumin Lipase Free T4 10/28/18 10/28/18 10/28/18 04:25 04:25 15:37 WBC 23.5 H RBC Hgb Hct MCV MCH MCHC Plt Count Lymph % (Auto) [place] % (Auto) Lymph # [place] # Seg Neutrophils % Seg Neuts % (Manual) Lymphocytes % (Manual) Seg Neutrophils # Seg Neutrophils # Man Lymphocytes # (Manual) POC ABG pH POC ABG pCO2 POC ABG pO2 Sodium 147 H Potassium Chloride 116.9 H Carbon Dioxide 16 L BUN 23 H Creatinine Glucose POC Glucose 114 H Calcium 8.0 L Phosphorus Magnesium NT-Pro-B Natriuret Pep Total Protein Albumin Lipase Free T4 10/28/18 10/28/18 10/28/18 20:33 22:07 23:31 WBC RBC Hgb Hct MCV MCH MCHC Plt Count Lymph % (Auto) [place] % (Auto) Lymph # [place] # Seg Neutrophils % Seg Neuts % (Manual) Lymphocytes % (Manual) Seg Neutrophils # Seg Neutrophils # Man Lymphocytes # (Manual) POC ABG pH 7.202 L 7.235 L POC ABG pCO2 POC ABG pO2 71 L Sodium Potassium Chloride Carbon Dioxide BUN Creatinine Glucose POC Glucose 207 H Calcium Phosphorus Magnesium NT-Pro-B Natriuret Pep Total Protein Albumin Lipase Free T4 10/29/18 10/29/18 10/29/18 04:30 04:30 05:26 WBC 21.1 H RBC Hgb Hct MCV MCH MCHC Plt Count Lymph % (Auto) [place] % (Auto) Lymph # [place] # Seg Neutrophils % Seg Neuts % (Manual) 97.0 H Lymphocytes % (Manual) 3.0 L Seg Neutrophils # Seg Neutrophils # Man 20.5 H Lymphocytes # (Manual) 0.6 L POC ABG pH 7.305 L POC ABG pCO2 30.5 L POC ABG pO2 75 L Sodium 147 H Potassium 3.5 L Chloride 120.0 H Carbon Dioxide 17 L BUN 30 H Creatinine Glucose 246 H POC Glucose Calcium 7.9 L Phosphorus Magnesium NT-Pro-B Natriuret Pep Total Protein Albumin Lipase Free T4 10/29/18 10/29/18 10/29/18 05:36 11:39 18:00 WBC RBC Hgb Hct MCV MCH MCHC Plt Count Lymph % (Auto) [place] % (Auto) Lymph # [place] # Seg Neutrophils % Seg Neuts % (Manual) Lymphocytes % (Manual) Seg Neutrophils # Seg Neutrophils # Man Lymphocytes # (Manual) POC ABG pH POC ABG pCO2 POC ABG pO2 Sodium Potassium Chloride Carbon Dioxide BUN Creatinine Glucose POC Glucose 204 H 224 H 221 H Calcium Phosphorus Magnesium NT-Pro-B Natriuret Pep Total Protein Albumin Lipase Free T4 10/29/18 10/30/18 10/30/18 23:17 05:00 05:00 WBC 21.4 H RBC Hgb Hct MCV MCH MCHC Plt Count 134 L Lymph % (Auto) [place] % (Auto) Lymph # [place] # Seg Neutrophils % Seg Neuts % (Manual) 97.0 H Lymphocytes % (Manual) 3.0 L Seg Neutrophils # Seg Neutrophils # Man 20.8 H Lymphocytes # (Manual) 0.6 L POC ABG pH POC ABG pCO2 POC ABG pO2 Sodium 148 H Potassium 3.1 L Chloride 120.3 H Carbon Dioxide 18 L BUN 31 H Creatinine Glucose 205 H POC Glucose 181 H Calcium 8.0 L Phosphorus Magnesium NT-Pro-B Natriuret Pep Total Protein Albumin Lipase Free T4 10/30/18 10/30/18 10/30/18 05:14 05:25 05:26 WBC RBC Hgb Hct MCV MCH MCHC Plt Count Lymph % (Auto) [place] % (Auto) Lymph # [place] # Seg Neutrophils % Seg Neuts % (Manual) Lymphocytes % (Manual) Seg Neutrophils # Seg Neutrophils # Man Lymphocytes # (Manual) POC ABG pH 7.296 L 7.245 L POC ABG pCO2 31.1 L POC ABG pO2 54 L 59 L Sodium Potassium Chloride Carbon Dioxide BUN Creatinine Glucose POC Glucose 199 H Calcium Phosphorus Magnesium NT-Pro-B Natriuret Pep Total Protein Albumin Lipase Free T4 10/30/18 10/30/18 10/31/18 13:23 18:25 00:22 WBC RBC Hgb Hct MCV MCH MCHC Plt Count Lymph % (Auto) [place] % (Auto) Lymph # [place] # Seg Neutrophils % Seg Neuts % (Manual) Lymphocytes % (Manual) Seg Neutrophils # Seg Neutrophils # Man Lymphocytes # (Manual) POC ABG pH POC ABG pCO2 POC ABG pO2 Sodium Potassium Chloride Carbon Dioxide BUN Creatinine Glucose POC Glucose 146 H 158 H 162 H Calcium Phosphorus Magnesium NT-Pro-B Natriuret Pep Total Protein Albumin Lipase Free T4 10/31/18 10/31/18 10/31/18 04:39 05:14 07:05 WBC RBC Hgb Hct MCV MCH MCHC Plt Count Lymph % (Auto) [place] % (Auto) Lymph # [place] # Seg Neutrophils % Seg Neuts % (Manual) Lymphocytes % (Manual) Seg Neutrophils # Seg Neutrophils # Man Lymphocytes # (Manual) POC ABG pH 7.238 L POC ABG pCO2 POC ABG pO2 Sodium Potassium Chloride 115.8 H Carbon Dioxide 18 L BUN 39 H Creatinine 1.3 H Glucose 167 H POC Glucose 145 H Calcium 7.5 L Phosphorus 1.80 L Magnesium NT-Pro-B Natriuret Pep Total Protein Albumin Lipase Free T4 10/31/18 10/31/18 10/31/18 10:43 12:03 17:00 WBC RBC Hgb Hct MCV MCH MCHC Plt Count Lymph % (Auto) [place] % (Auto) Lymph # [place] # Seg Neutrophils % Seg Neuts % (Manual) Lymphocytes % (Manual) Seg Neutrophils # Seg Neutrophils # Man Lymphocytes # (Manual) POC ABG pH 7.304 L POC ABG pCO2 33.3 L POC ABG pO2 Sodium Potassium Chloride Carbon Dioxide BUN Creatinine Glucose POC Glucose 159 H Calcium Phosphorus Magnesium NT-Pro-B Natriuret Pep Total Protein Albumin Lipase Free T4 0.49 L 10/31/18 11/01/18 11/01/18 17:00 00:44 05:27 WBC RBC Hgb Hct MCV MCH MCHC Plt Count Lymph % (Auto) [place] % (Auto) Lymph # [place] # Seg Neutrophils % Seg Neuts % (Manual) Lymphocytes % (Manual) Seg Neutrophils # Seg Neutrophils # Man Lymphocytes # (Manual) POC ABG pH 7.248 L POC ABG pCO2 34.8 L POC ABG pO2 135 H Sodium Potassium Chloride Carbon Dioxide BUN Creatinine Glucose POC Glucose 127 H 118 H Calcium Phosphorus Magnesium NT-Pro-B Natriuret Pep Total Protein Albumin Lipase Free T4 11/01/18 11/01/18 11/01/18 06:40 06:40 06:53 WBC 18.9 H RBC 3.63 L Hgb Hct MCV MCH MCHC Plt Count 64 L Lymph % (Auto) [place] % (Auto) Lymph # [place] # Seg Neutrophils % Seg Neuts % (Manual) 98.0 H Lymphocytes % (Manual) 1.0 L Seg Neutrophils # Seg Neutrophils # Man 18.5 H Lymphocytes # (Manual) 0.2 L POC ABG pH POC ABG pCO2 POC ABG pO2 Sodium Potassium 3.5 L Chloride 114.2 H Carbon Dioxide 17 L BUN 49 H Creatinine Glucose 107 H POC Glucose 127 H Calcium 7.3 L Phosphorus Magnesium 1.60 L NT-Pro-B Natriuret Pep Total Protein Albumin Lipase Free T4 11/01/18 11/01/18 11/01/18 11:49 13:13 17:24 WBC RBC Hgb Hct MCV MCH MCHC Plt Count Lymph % (Auto) [place] % (Auto) Lymph # [place] # Seg Neutrophils % Seg Neuts % (Manual) Lymphocytes % (Manual) Seg Neutrophils # Seg Neutrophils # Man Lymphocytes # (Manual) POC ABG pH POC ABG pCO2 POC ABG pO2 182 H Sodium Potassium Chloride Carbon Dioxide BUN Creatinine Glucose POC Glucose 134 H 111 H Calcium Phosphorus Magnesium NT-Pro-B Natriuret Pep Total Protein Albumin Lipase Free T4 11/01/18 11/02/18 11/02/18 23:07 04:32 05:00 WBC RBC Hgb Hct MCV MCH MCHC Plt Count Lymph % (Auto) [place] % (Auto) Lymph # [place] # Seg Neutrophils % Seg Neuts % (Manual) Lymphocytes % (Manual) Seg Neutrophils # Seg Neutrophils # Man Lymphocytes # (Manual) POC ABG pH 7.244 L POC ABG pCO2 33.2 L POC ABG pO2 123 H Sodium Potassium 3.0 L Chloride 114.1 H Carbon Dioxide 15 L BUN 47 H Creatinine Glucose 127 H POC Glucose 123 H Calcium 7.7 L Phosphorus Magnesium NT-Pro-B Natriuret Pep Total Protein Albumin Lipase Free T4 11/02/18 11/02/18 11/02/18 05:00 05:29 11:27 WBC RBC Hgb Hct MCV MCH MCHC Plt Count Lymph % (Auto) [place] % (Auto) Lymph # [place] # Seg Neutrophils % Seg Neuts % (Manual) Lymphocytes % (Manual) Seg Neutrophils # Seg Neutrophils # Man Lymphocytes # (Manual) POC ABG pH POC ABG pCO2 POC ABG pO2 Sodium Potassium Chloride Carbon Dioxide BUN Creatinine Glucose POC Glucose 118 H 137 H Calcium Phosphorus Magnesium 1.60 L NT-Pro-B Natriuret Pep Total Protein Albumin Lipase Free T4 11/02/18 11/02/18 11/03/18 12:53 23:35 04:14 WBC RBC Hgb Hct MCV MCH MCHC Plt Count Lymph % (Auto) [place] % (Auto) Lymph # [place] # Seg Neutrophils % Seg Neuts % (Manual) Lymphocytes % (Manual) Seg Neutrophils # Seg Neutrophils # Man Lymphocytes # (Manual) POC ABG pH POC ABG pCO2 30.3 L POC ABG pO2 134 H 129 H Sodium Potassium Chloride Carbon Dioxide BUN Creatinine Glucose POC Glucose 115 H Calcium Phosphorus Magnesium NT-Pro-B Natriuret Pep Total Protein Albumin Lipase Free T4 11/03/18 11/03/18 11/03/18 05:34 11:30 11:30 WBC 16.4 H RBC 3.50 L Hgb Hct MCV MCH MCHC Plt Count 136 L D Lymph % (Auto) [place] % (Auto) Lymph # [place] # Seg Neutrophils % Seg Neuts % (Manual) 97.0 H Lymphocytes % (Manual) 2.0 L Seg Neutrophils # Seg Neutrophils # Man 15.9 H Lymphocytes # (Manual) 0.3 L POC ABG pH POC ABG pCO2 POC ABG pO2 Sodium Potassium 3.1 L Chloride 110.4 H Carbon Dioxide 17 L BUN 41 H Creatinine Glucose 129 H POC Glucose 116 H Calcium 7.7 L Phosphorus Magnesium 1.60 L NT-Pro-B Natriuret Pep Total Protein 4.2 L Albumin 1.2 L Lipase Free T4 11/03/18 11/03/18 11/03/18 12:01 17:35 21:37 WBC RBC Hgb Hct MCV MCH MCHC Plt Count Lymph % (Auto) [place] % (Auto) Lymph # [place] # Seg Neutrophils % Seg Neuts % (Manual) Lymphocytes % (Manual) Seg Neutrophils # Seg Neutrophils # Man Lymphocytes # (Manual) POC ABG pH POC ABG pCO2 POC ABG pO2 Sodium Potassium Chloride Carbon Dioxide BUN Creatinine Glucose POC Glucose 132 H 132 H 126 H Calcium Phosphorus Magnesium NT-Pro-B Natriuret Pep Total Protein Albumin Lipase Free T4 11/03/18 11/04/18 11/04/18 23:30 05:14 05:15 WBC RBC Hgb Hct MCV MCH MCHC Plt Count Lymph % (Auto) [place] % (Auto) Lymph # [place] # Seg Neutrophils % Seg Neuts % (Manual) Lymphocytes % (Manual) Seg Neutrophils # Seg Neutrophils # Man Lymphocytes # (Manual) POC ABG pH POC ABG pCO2 30.9 L POC ABG pO2 192 H Sodium Potassium Chloride Carbon Dioxide BUN Creatinine Glucose POC Glucose 115 H 123 H Calcium Phosphorus Magnesium NT-Pro-B Natriuret Pep Total Protein Albumin Lipase Free T4 11/04/18 11/04/18 11/04/18 09:39 09:39 11:43 WBC 15.2 H RBC 3.18 L Hgb Hct 29.9 L MCV MCH MCHC Plt Count Lymph % (Auto) [place] % (Auto) Lymph # [place] # Seg Neutrophils % Seg Neuts % (Manual) 98.0 H Lymphocytes % (Manual) 1.0 L Seg Neutrophils # Seg Neutrophils # Man 14.9 H Lymphocytes # (Manual) 0.2 L POC ABG pH POC ABG pCO2 POC ABG pO2 Sodium 135 L D Potassium Chloride 109.5 H Carbon Dioxide 16 L BUN 46 H Creatinine Glucose 136 H POC Glucose 138 H Calcium 8.0 L Phosphorus Magnesium NT-Pro-B Natriuret Pep Total Protein Albumin Lipase Free T4 11/04/18 11/04/18 11/05/18 17:31 23:42 05:23 WBC RBC Hgb Hct MCV MCH MCHC Plt Count Lymph % (Auto) [place] % (Auto) Lymph # [place] # Seg Neutrophils % Seg Neuts % (Manual) Lymphocytes % (Manual) Seg Neutrophils # Seg Neutrophils # Man Lymphocytes # (Manual) POC ABG pH POC ABG pCO2 POC ABG pO2 Sodium Potassium Chloride Carbon Dioxide BUN Creatinine Glucose POC Glucose 139 H 138 H 148 H Calcium Phosphorus Magnesium NT-Pro-B Natriuret Pep Total Protein Albumin Lipase Free T4 11/05/18 11/05/18 11/05/18 05:30 05:30 11:46 WBC 14.2 H RBC 3.12 L Hgb 10.0 L Hct 29.1 L MCV MCH MCHC Plt Count Lymph % (Auto) [place] % (Auto) Lymph # [place] # Seg Neutrophils % Seg Neuts % (Manual) Lymphocytes % (Manual) Seg Neutrophils # Seg Neutrophils # Man Lymphocytes # (Manual) POC ABG pH POC ABG pCO2 POC ABG pO2 Sodium Potassium Chloride Carbon Dioxide 21 L BUN 42 H Creatinine Glucose 125 H POC Glucose 157 H Calcium 7.9 L Phosphorus Magnesium NT-Pro-B Natriuret Pep Total Protein Albumin Lipase Free T4 11/05/18 11/05/18 11/05/18 17:09 20:03 23:43 WBC RBC Hgb Hct MCV MCH MCHC Plt Count Lymph % (Auto) [place] % (Auto) Lymph # [place] # Seg Neutrophils % Seg Neuts % (Manual) Lymphocytes % (Manual) Seg Neutrophils # Seg Neutrophils # Man Lymphocytes # (Manual) POC ABG pH POC ABG pCO2 POC ABG pO2 76 L Sodium Potassium Chloride Carbon Dioxide BUN Creatinine Glucose POC Glucose 142 H 204 H Calcium Phosphorus Magnesium NT-Pro-B Natriuret Pep Total Protein Albumin Lipase Free T4 11/06/18 11/06/18 11/06/18 04:21 12:14 17:17 WBC RBC Hgb Hct MCV MCH MCHC Plt Count Lymph % (Auto) [place] % (Auto) Lymph # [place] # Seg Neutrophils % Seg Neuts % (Manual) Lymphocytes % (Manual) Seg Neutrophils # Seg Neutrophils # Man Lymphocytes # (Manual) POC ABG pH POC ABG pCO2 POC ABG pO2 Sodium 133 L Potassium Chloride Carbon Dioxide 18 L BUN 47 H Creatinine Glucose 187 H POC Glucose 232 H 199 H Calcium 7.8 L Phosphorus 5.30 H D Magnesium 2.50 H NT-Pro-B Natriuret Pep Total Protein Albumin Lipase Free T4 11/06/18 11/06/18 11/07/18 19:46 23:30 00:00 WBC RBC Hgb Hct MCV MCH MCHC Plt Count Lymph % (Auto) [place] % (Auto) Lymph # [place] # Seg Neutrophils % Seg Neuts % (Manual) Lymphocytes % (Manual) Seg Neutrophils # Seg Neutrophils # Man Lymphocytes # (Manual) POC ABG pH 7.317 L POC ABG pCO2 50.3 H POC ABG pO2 58 L 57 L Sodium Potassium Chloride Carbon Dioxide BUN Creatinine Glucose POC Glucose 224 H Calcium Phosphorus Magnesium NT-Pro-B Natriuret Pep Total Protein Albumin Lipase Free T4 11/07/18 11/07/18 11/07/18 04:55 04:55 04:55 WBC 25.2 H RBC 3.64 L Hgb Hct MCV MCH MCHC Plt Count Lymph % (Auto) [place] % (Auto) Lymph # [place] # Seg Neutrophils % Seg Neuts % (Manual) Lymphocytes % (Manual) Seg Neutrophils # Seg Neutrophils # Man Lymphocytes # (Manual) POC ABG pH POC ABG pCO2 POC ABG pO2 Sodium Potassium Chloride Carbon Dioxide BUN 54 H Creatinine Glucose 270 H POC Glucose Calcium 7.9 L Phosphorus 5.00 H Magnesium NT-Pro-B Natriuret Pep 4507 H Total Protein Albumin Lipase Free T4 11/07/18 11/07/18 11/07/18 05:46 08:08 11:52 WBC RBC Hgb Hct MCV MCH MCHC Plt Count Lymph % (Auto) [place] % (Auto) Lymph # [place] # Seg Neutrophils % Seg Neuts % (Manual) Lymphocytes % (Manual) Seg Neutrophils # Seg Neutrophils # Man Lymphocytes # (Manual) POC ABG pH POC ABG pCO2 47.6 H POC ABG pO2 106 H Sodium Potassium Chloride Carbon Dioxide BUN Creatinine Glucose POC Glucose 266 H 323 H Calcium Phosphorus Magnesium NT-Pro-B Natriuret Pep Total Protein Albumin Lipase Free T4 11/07/18 11/07/18 11/07/18 12:29 17:57 23:48 WBC RBC Hgb Hct MCV MCH MCHC Plt Count Lymph % (Auto) [place] % (Auto) Lymph # [place] # Seg Neutrophils % Seg Neuts % (Manual) Lymphocytes % (Manual) Seg Neutrophils # Seg Neutrophils # Man Lymphocytes # (Manual) POC ABG pH POC ABG pCO2 POC ABG pO2 Sodium Potassium Chloride Carbon Dioxide BUN Creatinine Glucose POC Glucose 325 H 286 H 231 H Calcium Phosphorus Magnesium NT-Pro-B Natriuret Pep Total Protein Albumin Lipase Free T4 11/08/18 11/08/18 11/08/18 03:58 05:05 05:05 WBC 18.4 H RBC 3.20 L Hgb 10.0 L Hct 29.7 L MCV MCH MCHC Plt Count Lymph % (Auto) [place] % (Auto) Lymph # [place] # Seg Neutrophils % Seg Neuts % (Manual) Lymphocytes % (Manual) Seg Neutrophils # Seg Neutrophils # Man Lymphocytes # (Manual) POC ABG pH 7.524 H POC ABG pCO2 34.3 L POC ABG pO2 Sodium Potassium Chloride Carbon Dioxide BUN 61 H Creatinine Glucose 253 H POC Glucose Calcium 7.6 L Phosphorus Magnesium NT-Pro-B Natriuret Pep Total Protein Albumin Lipase Free T4 11/08/18 11/08/18 11/08/18 05:28 11:28 18:21 WBC RBC Hgb Hct MCV MCH MCHC Plt Count Lymph % (Auto) [place] % (Auto) Lymph # [place] # Seg Neutrophils % Seg Neuts % (Manual) Lymphocytes % (Manual) Seg Neutrophils # Seg Neutrophils # Man Lymphocytes # (Manual) POC ABG pH POC ABG pCO2 POC ABG pO2 Sodium Potassium Chloride Carbon Dioxide BUN Creatinine Glucose POC Glucose 295 H 253 H 225 H Calcium Phosphorus Magnesium NT-Pro-B Natriuret Pep Total Protein Albumin Lipase Free T4 11/09/18 11/09/18 00:57 04:06 WBC RBC Hgb Hct MCV MCH MCHC Plt Count Lymph % (Auto) [place] % (Auto) Lymph # [place] # Seg Neutrophils % Seg Neuts % (Manual) Lymphocytes % (Manual) Seg Neutrophils # Seg Neutrophils # Man Lymphocytes # (Manual) POC ABG pH 7.509 H POC ABG pCO2 POC ABG pO2 Sodium Potassium Chloride Carbon Dioxide BUN Creatinine Glucose POC Glucose 218 H Calcium Phosphorus Magnesium NT-Pro-B Natriuret Pep Total Protein Albumin Lipase Free T4 Allied health notes reviewed: nursing
[2018-11-09 06:58] LABS: Hematocrit 27.6 % (30.3-42.9); Hemoglobin 9.3 gm/dl (10.1-14.3); Mean Corpuscular HGB Conc 34 % (30-34); Mean Corpuscular Volume 93 fl (79-97); Platelet Count 168 K/mm3 (140-440); Red Blood Count 2.97 M/mm3 (3.65-5.03); Red Cell Distribution Width 14.6 % (13.2-15.2)
[2018-11-09 07:24] LABS: BUN/Creatinine Ratio 83; Blood Urea Nitrogen 58 mg/dL (7-17); Calcium 7.5 mg/dL (8.4-10.2); Hemolysis Index 2
[2018-11-09] MEDS: LOPRESSOR IV SCH ×3 (08:19→19:55)
[2018-11-09] MEDS: PERCOCET 5/325 PO PRN ×2 (08:20→16:50)
[2018-11-09] MEDS: SODIUM CHLORIDE FLUSH SYRINGE 10 ML IV PRN ×4 (08:23→14:29)
--- NOTE | 2018-11-09 08:34 | Hem/Onc Progress Note ---
Assessment and Plan 1. h/o Thrombocytopenia, likely medication, pts medical status related. platelet count is better. 2. History of colon surgery in the past, details not clear. 3. History of bowel issues. Seen by surgical team. - pSBO and contained gastric perforation 4. h/o TPN. 5. h/o Ayla, ID following. 6. Chronic obstructive pulmonary disease. 7. Hypertension. 8. History of lupus. 9. Aspiration pneumonia. 10. The patient was on ventilation. 11. Renal impairment. pt on vent - pulm following pt better d/w dr gardner - Patient Problems (1) Thrombocytopenia Current Visit: Yes Status: Acute Subjective Date of service: 11/09/18 Principal diagnosis: low plt - on vent Interval history: pt on vent Objective - Constitutional Vitals: Last Vital Signs Temp 97.8 F 11/09/18 08:00 Pulse 140 H 11/09/18 08:19 Resp 23 11/09/18 08:00 BP 124/45 11/09/18 08:19 Pulse Ox 96 11/09/18 08:00 Pain Intensity (0-10): denies any pain General appearance: no acute distress, other (on vent) Performance status: 4-completely disabled - EENT Eyes: EOM intact ENT: hearing intact Lymph node exam: negative cervical - Respiratory Respiratory effort: Positive: other (on vent) Respiratory: bilateral: diminished - Cardiovascular Heart Sounds: Present: S1 & S2 Extremities: normal temperature - Gastrointestinal General gastrointestinal: Present: soft Rectal Exam: deferred - Genitourinary Female genitourinary: Present: deferred - Integumentary Integumentary: warm - Musculoskeletal Musculoskeletal: generalized weakness - Neurologic Neurologic: moves all extremities - Labs Lab Results: Laboratory Results - last 24 hr 11/08/18 11/08/18 11/09/18 11:28 18:21 00:57 WBC RBC Hgb Hct MCV MCH MCHC RDW Plt Count POC ABG pH POC ABG pCO2 POC ABG pO2 POC ABG HCO3 POC ABG Total CO2 POC ABG O2 Sat POC ABG Base Excess FiO2 Sodium Potassium Chloride Carbon Dioxide Anion Gap BUN Creatinine Estimated GFR BUN/Creatinine Ratio Glucose POC Glucose 253 H 225 H 218 H Calcium Phosphorus Magnesium 11/09/18 11/09/18 11/09/18 04:06 06:06 06:51 WBC 13.5 H RBC 2.97 L Hgb 9.3 L Hct 27.6 L MCV 93 MCH 32 MCHC 34 RDW 14.6 Plt Count 168 POC ABG pH 7.509 H POC ABG pCO2 42.4 POC ABG pO2 98 POC ABG HCO3 33.8 POC ABG Total CO2 35 POC ABG O2 Sat 98 POC ABG Base Excess 11 FiO2 35 Sodium Potassium Chloride Carbon Dioxide Anion Gap BUN Creatinine Estimated GFR BUN/Creatinine Ratio Glucose POC Glucose 199 H Calcium Phosphorus Magnesium 11/09/18 11/09/18 06:51 06:51 WBC RBC Hgb Hct MCV MCH MCHC RDW Plt Count POC ABG pH POC ABG pCO2 POC ABG pO2 POC ABG HCO3 POC ABG Total CO2 POC ABG O2 Sat POC ABG Base Excess FiO2 Sodium 142 Potassium 3.6 Chloride 96.5 L Carbon Dioxide 32 H Anion Gap 17 BUN 58 H Creatinine 0.7 Estimated GFR > 60 BUN/Creatinine Ratio 83 Glucose 191 H POC Glucose Calcium 7.5 L Phosphorus 2.70 D Magnesium 1.90 Medications & Allergies - Medications Allergies/Adverse Reactions: Allergies Sulfa (Sulfonamide Antibiotics) Allergy (Intermediate, Verified 10/22/18 16:30) Rash metoclopramide HCl [From Reglan] Allergy (Verified 10/22/18 16:30) Dizziness prochlorperazine [From Compazine] Allergy (Verified 10/22/18 16:30) NECK STIFFNESS Home Medications: Home Medications Medication Instructions Recorded Confirmed Last Taken Type Ondansetron 4 mg PO Q6HR PRN 12/05/16 10/22/18 10/29/17 History Propranolol HCl [Propranolol HCl 60 mg PO DAILY 12/05/16 10/22/18 10/30/17 22:00 History ER] QUEtiapine [SEROquel] 300 mg PO DAILY 12/05/16 10/22/18 10/30/17 History Lasix TAB 40 mg PO PRN PRN 12/07/16 10/22/18 10/24/17 History Percocet 10/325 mg 1 tab PO PRN PRN 12/07/16 10/22/18 10/30/17 History Albuterol Sulfate [Albuterol 0.63% 0.63 mg IH TID PRN 10/22/17 10/22/18 10/29/17 History NEBS] Active Medications: Generic Name Dose Route Start Last Admin Trade Name Freq PRN Reason Stop Dose Admin Acetaminophen 650 mg 10/22/18 20:10 Tylenol PO Q4H PRN Pain MILD(1-3)/Fever >100.5/PORTER Albuterol 2.5 mg 10/22/18 20:14 11/05/18 16:35 Proventil IH 2.5 mg Q4HRT PRN Administration Shortness Of Breath Lipase/Protease/Amylase 1 each 11/05/18 10:13 Pancremaranda Simpson 10,500 Unit FEEDTUBE PRN PRN For Clogged Feeding Tube Arformoterol Tartrate 15 mcg 11/05/18 20:00 11/08/18 19:58 Brovana Nebu IH 15 mcg Q12HRT RICK Administration Budesonide 0.5 mg 10/23/18 08:00 11/08/18 19:58 Pulmicort IH 0.5 mg Q12HRT RICK Administration Dextrose 50 ml 10/26/18 23:40 10/27/18 00:20 D50w (25gm) Syringe IV 50 ml PRN PRN Administration Hypoglycemia Enoxaparin Sodium 40 mg 11/05/18 22:00 11/08/18 21:43 Lovenox SUB-Q 40 mg QDAY@2200 RICK Administration Fentanyl 50 mcg 11/08/18 15:00 11/09/18 00:55 Sublimaze IV 50 mcg Q2H PRN Administration pain, severe (7-10) Hydralazine HCl 10 mg 10/22/18 21:41 11/07/18 00:04 Apresoline IV 10 mg Q4HR PRN Administration Blood Pressure Hydrophilic Ointment 1 applic 11/07/18 09:14 Vaseline Lip Therapy TP Q2HR PRN Dry Lips Micafungin Sodium 100 mg/ 100 mls @ 100 mls/hr 11/02/18 10:00 11/08/18 10:20 Sodium Chloride IV 100 mls/hr QDAY RICK Administration Protocol Levofloxacin/Dextrose 500 mg in 100 mls @ 100 mls/hr 11/07/18 12:00 11/08/18 09:23 Levaquin 500mg/100ml IV 11/10/18 11:59 100 mls/hr Q24HR RICK Administration Protocol Amino Acids/Electrolytes/Dextrose 2,400 mls @ 100 mls/hr 11/08/18 20:00 01/19 21:42 Tpn Adult IV 11/09/18 19:59 100 mls/hr DAILY@2000 [facility] Administration Protocol Insulin Human Isoph/Insulin Regular 8 unit 11/08/18 08:00 11/09/18 08:19 Humulin 70/30 SUB-Q 8 unit BIDDIAB RICK Administration Insulin Human Lispro 0 unit 10/29/18 12:00 11/09/18 00:57 Humalog SUB-Q 3 unit Q6HR [facility] Administration Protocol Lorazepam 1 mg 11/06/18 11:00 11/09/18 00:54 Ativan IV 1 mg Q6H PRN Administration Anxiety Methylprednisolone Sodium Succinate 60 mg 11/09/18 07:00 11/09/18 08:20 Solu-Medrol IV 60 mg Q8HR [facility] Administration Metoprolol Tartrate 5 mg 10/31/18 14:00 11/09/18 08:19 Lopressor IV 5 mg TID [facility] Administration Multi-Ingred Cream/Lotion/Oil/Oint 1 applic 11/07/18 09:14 Artificial Tears Ophth Oint OU Q4HR PRN Dry Eye(s) Nitroglycerin 1 inch 11/07/18 18:00 11/08/18 17:51 Nitro-Bid 2% TP 1 inch TIDNTG [facility] Administration Protocol Ondansetron HCl 4 mg 10/24/18 10:05 10/25/18 17:26 Zofran IV 4 mg Q6H PRN Administration Nausea And Vomiting Oxycodone/Acetaminophen 1 tab 11/05/18 11:16 11/09/18 08:20 Percocet 5/325 PO 1 tab Q6H PRN Administration Pain, Moderate (4-6) Pantoprazole Sodium 40 mg 11/05/18 10:00 11/08/18 10:20 Protonix IV 40 mg DAILY [facility] Administration Phenol 1 spray 10/28/18 10:16 Chloraseptic MM PRN PRN Sore Throat Promethazine HCl 25 mg 10/22/18 20:10 10/22/18 21:21 Phenergan [place] 25 mg Q6H PRN Administration Nausea And Vomiting Simple Syrup 15 ml 11/05/18 10:13 Simple Syrup FEEDTUBE PRN PRN Hypoglycemia Simple Syrup 30 ml 11/05/18 10:13 Simple Syrup FEEDTUBE PRN PRN Hypoglycemia Sodium Bicarbonate 325 mg 11/05/18 10:13 Sodium Bicarbonate FEEDTUBE PRN PRN For Clogged Feeding Tube Sodium Chloride 10 ml 10/22/18 22:00 11/08/18 09:24 Sodium Chloride Flush Syringe 10 Ml IV 10 ml BID RICK Administration Sodium Chloride 10 ml 10/22/18 20:10 11/09/18 08:24 Sodium Chloride Flush Syringe 10 Ml IV 10 ml PRN PRN Administration LINE FLUSH
[2018-11-09] MEDS: PULMICORT IH SCH ×2 (08:35→20:21)
[2018-11-09] MEDS: BROVANA NEBU IH SCH ×2 (08:35→20:21)
--- NOTE | 2018-11-09 09:02 | Progress Note ---
Assessment and Plan Assessment and plan: Patient is 73-year-old female with history of hypertension, lupus, fibromyalgia, COPD, opioid dependence (follows Dr. Felix Muñiz at pain clinic) who presented to [facility] ED with complaints of intractable nausea, vomiting, diarrhea for 3 days. On initial presentation to the ED she was found to be tachycardiac with heart rate 113 BPM, leukocytosis with WBC 11.5, elevated BUN/Cr 51/2.1. Patient has history of COPD and at baseline does not require home oxygen use. She was admitted to [facility]. GI was consulted, she was evaluated. CT Abdomen revealed partial SBO versus ileus therefore surgeon consulted. Also patient became more short of breath, placed on BIPAP with no improvement then intubated 10/26/18 for acute resp failure and transferred to ICU. Obstruction series completed on 10/27 which showed improved but small bowel and stomach dilatation. Follow-up series on 10/28 showed no significant change since previous study. NG tube was removed due to patient not tolerating/refusing. Patient was placed back on BiPAP but decompensated on the night of 10/28/18 and had to be reintubated. Patient currently on mechanical ventilation. Patient has had further complications now with findings consistent with contained gastric perforation on repeat CT scan 10/30. Also, patient has cultures that were positive and consistent with fungemia. Gastric perforation. Repeat CT scan on 10/30 revealed pSBO resolved, no evidence for bowel ischemia. Small contained gastric perforation at lesser curve. No gross free air or contrast extravasation. Surgery recommends conservative management with continuing NGT, NPO, gentle IVF and when necessary pain control. Will reimage stomach when pulm status is more stable to make sure there is no leak. Sepsis/fungemia. Continue antibiotics/antifungals and follow cultures. ID following. May need to switch off PICC to other access, hold IV nutrition ? Thrombocytopenia. resolved Etiology likely secondary to sepsis. Hematology following. Bilateral upper lobe/aspiration pneumonia. Sputum culture positive for Escherichia coli and stenotrophomonas. Continue antibiotics per ID. Partial small bowel obstruction. Continue NGT per surgery. Acute exacerbation COPD. Scheduled Duo Nebs and Pulmicort; albuterol when necessary Acute hypoxic respiratory failure. Patient was reintubated on 10/28/18, Etiology secondary to COPD/pneumonia/sepsis. Extubated 11/05, re-intubated 11/07 He has been intubated 3 times now and trach has been recommended Toxic metabolic encephalopathy Hypokalemia. Replete potassium. Hyponatremia. Repeat in am Hypertension. IV hydralazine when necessary Lupus. Supportive care Fibromyalgia. supportive care History of opioid dependence ADWOA due to vasomotor nephropathy, now resolved Full code status The high probability of a clinically significant, sudden or life threatening deterioration of the [GI and respiratory] system(s) required my full and direct attention, intervention and personal management. The aggregate critical care time was [33] minutes. This time is in addition to time spent performing reported procedures but includes the following: [x] Data Review and interpretation [x] Patient assessment and monitoring of vital signs [x] Documentation [x] Medication orders and management History Interval history: Shortness of breath, resp distress, re-intubated 11/07 for 3rd time no fever Hospitalist Physical - Physical exam Narrative exam: Gen: In respiratory distress, on BIPAP HEENT: Normocephalic, atraumatic, NG tube Neck: supple, no JVD Heart: S1 and S2 reg, no murmurs, rubs or gallop Lungs: Clear bilat, decreased breath sounds bilat. no wheeze Abd: soft, non tender, no rebound tenderness, non distended, BS present Ext: No edema, no clubbing, no cyanosis, Neuro: Intubated, sedated - Constitutional Vitals: Temp Pulse Resp BP Pulse Ox 97.8 F 140 H 23 124/45 96 11/09/18 08:00 11/09/18 08:19 11/09/18 08:00 11/09/18 08:19 11/09/18 08:00 General appearance: Present: other (intubated, opens eyes to commands) Results - Labs CBC & Chem 7: 11/09/18 06:51 11/09/18 06:51 Labs: Laboratory Last Values WBC 13.5 K/mm3 (4.5-11.0) H 11/09/18 06:51 RBC 2.97 M/mm3 (3.65-5.03) L 11/09/18 06:51 Hgb 9.3 gm/dl (10.1-14.3) L 11/09/18 06:51 Hct 27.6 % (30.3-42.9) L 11/09/18 06:51 MCV 93 fl (79-97) 11/09/18 06:51 MCH 32 pg (28-32) 11/09/18 06:51 MCHC 34 % (30-34) 11/09/18 06:51 RDW 14.6 % (13.2-15.2) 11/09/18 06:51 Plt Count 168 K/mm3 (140-440) 11/09/18 06:51 Lymph % (Auto) 10.2 % (13.4-35.0) L 10/23/18 04:32 [place] % (Auto) 14.7 % (0.0-7.3) H 10/23/18 04:32 Eos % (Auto) 0.1 % (0.0-4.3) 10/23/18 04:32 Baso % (Auto) 0.1 % (0.0-1.8) 10/23/18 04:32 Lymph # 0.7 K/mm3 (1.2-5.4) L 10/23/18 04:32 [place] # 1.0 K/mm3 (0.0-0.8) H 10/23/18 04:32 Eos # 0.0 K/mm3 (0.0-0.4) 10/23/18 04:32 Baso # 0.0 K/mm3 (0.0-0.1) 10/23/18 04:32 Add Manual Diff Complete 11/04/18 09:39 Total Counted 100 11/04/18 09:39 Seg Neutrophils % Suit Maker 11/04/18 09:39 Seg Neuts % (Manual) 98.0 % (40.0-70.0) H 11/04/18 09:39 0 % 11/04/18 09:39 1.0 % (13.4-35.0) L 11/04/18 09:39 Reactive Lymphs % (Man) 0 % 11/04/18 09:39 0 % (0.0-7.3) 11/04/18 09:39 1.0 % (0.0-4.3) 11/04/18 09:39 0 % (0.0-1.8) 11/04/18 09:39 0 % 11/04/18 09:39 0 % 11/04/18 09:39 0 % 11/04/18 09:39 0 % 11/04/18 09:39 Nucleated RBC % Not Reportable 11/04/18 09:39 Seg Neutrophils # 5.2 K/mm3 (1.8-7.7) 10/23/18 04:32 Seg Neutrophils # Man 14.9 K/mm3 (1.8-7.7) H 11/04/18 09:39 Band Neutrophils # 0.0 K/mm3 11/04/18 09:39 0.2 K/mm3 (1.2-5.4) L 11/04/18 09:39 Abs React Lymphs (Man) 0.0 K/mm3 11/04/18 09:39 0.0 K/mm3 (0.0-0.8) 11/04/18 09:39 0.2 K/mm3 (0.0-0.4) 11/04/18 09:39 0.0 K/mm3 (0.0-0.1) 11/04/18 09:39 0.0 K/mm3 11/04/18 09:39 0.0 K/mm3 11/04/18 09:39 0.0 K/mm3 11/04/18 09:39 Blast Cells # 0.0 K/mm3 11/04/18 09:39 WBC Morphology Not Reportable 11/04/18 09:39 Hypersegmented Neuts Not Reportable 11/04/18 09:39 Hyposegmented Neuts Not Reportable 11/04/18 09:39 Hypogranular Neuts Not Reportable 11/04/18 09:39 Not Reportable 11/04/18 09:39 Not Reportable 11/04/18 09:39 Not Reportable 11/04/18 09:39 Not Reportable 11/04/18 09:39 Not Reportable 11/04/18 09:39 Not Reportable 11/04/18 09:39 Consistent w auto 11/04/18 09:39 Not Reportable 11/04/18 09:39 Plt Clumps, EDTA Not Reportable 11/04/18 09:39 Not Reportable 11/04/18 09:39 Not Reportable 11/04/18 09:39 Not Reportable 11/04/18 09:39 Plt Morphology Comment Not Reportable 11/04/18 09:39 RBC Morphology Normal 11/04/18 09:39 Dimorphic RBCs Not Reportable 11/04/18 09:39 Not Reportable 11/04/18 09:39 Not Reportable 11/04/18 09:39 Not Reportable 11/04/18 09:39 Not Reportable 11/04/18 09:39 Not Reportable 11/04/18 09:39 Not Reportable 11/04/18 09:39 Not Reportable 11/04/18 09:39 Not Reportable 11/04/18 09:39 Not Reportable 11/04/18 09:39 Not Reportable 11/04/18 09:39 Not Reportable 11/04/18 09:39 Not Reportable 11/04/18 09:39 Not Reportable 11/04/18 09:39 Not Reportable 11/04/18 09:39 Not Reportable 11/04/18 09:39 Not Reportable 11/04/18 09:39 Not Reportable 11/04/18 09:39 Not Reportable 11/04/18 09:39 Not Reportable 11/04/18 09:39 Acanthocytes (Spur) Not Reportable 11/04/18 09:39 Rouleaux Not Reportable 11/04/18 09:39 Not Reportable 11/04/18 09:39 Not Reportable 11/04/18 09:39 Not Reportable 11/04/18 09:39 Not Reportable 11/04/18 09:39 Hem Pathologist Commnt No 11/04/18 09:39 Heparin Anti-Xa, Unfract Negative (Negative) 10/30/18 13:58 POC ABG pH 7.509 (7.35-7.45) H 11/09/18 04:06 POC ABG pCO2 42.4 (35-45) 11/09/18 04:06 POC ABG pO2 98 (80-105) 11/09/18 04:06 POC ABG HCO3 33.8 (22-26 mml/L) 11/09/18 04:06 POC ABG Total CO2 35 (23-27mmol/L) 11/09/18 04:06 POC ABG O2 Sat 98 11/09/18 04:06 POC ABG Base Excess 11 ((-2) - (+3)mmol/L) 11/09/18 04:06 35 % 11/09/18 04:06 Sodium 142 mmol/L (137-145) 11/09/18 06:51 Potassium 3.6 mmol/L (3.6-5.0) 11/09/18 06:51 Chloride 96.5 mmol/L (98-107) L 11/09/18 06:51 Carbon Dioxide 32 mmol/L (22-30) H 11/09/18 06:51 17 mmol/L 11/09/18 06:51 BUN 58 mg/dL (7-17) H 11/09/18 06:51 0.7 mg/dL (0.7-1.2) 11/09/18 06:51 Estimated GFR > 60 ml/min 11/09/18 06:51 83 % 11/09/18 06:51 Glucose 191 mg/dL (65-100) H 11/09/18 06:51 POC Glucose 199 (70-105) H 11/09/18 06:06 Lactic Acid 1.60 mmol/L (0.7-2.0) 10/26/18 15:03 Calcium 7.5 mg/dL (8.4-10.2) L 11/09/18 06:51 Phosphorus 2.70 mg/dL (2.5-4.5) D 11/09/18 06:51 Magnesium 1.90 mg/dL (1.7-2.3) 11/09/18 06:51 0.30 mg/dL (0.1-1.2) 11/03/18 11:30 AST 14 units/L (5-40) 11/03/18 11:30 ALT 17 units/L (7-56) 11/03/18 11:30 51 units/L (35-129) 11/03/18 11:30 NT-Pro-B Natriuret Pep 4507 pg/mL (0-900) H 11/07/18 04:55 4.2 g/dL (6.3-8.2) L 11/03/18 11:30 1.2 g/dL (3.9-5) L 11/03/18 11:30 0.4 % 11/03/18 11:30 Triglycerides 132 mg/dL (2-149) 11/01/18 06:40 10 units/L (13-60) L 10/22/18 15:54 See scanned result 10/30/18 13:58 TSH 3.150 mlU/mL (0.270-4.200) 10/31/18 17:00 Free T4 0.49 ng/dL (0.76-1.46) L 10/31/18 17:00 Dulce (Yellow) 10/22/18 19:10 Clear (Clear) 10/22/18 19:10 5.0 (5.0-7.0) 10/22/18 19:10 Ur Specific Webb 1.018 (1.003-1.030) 10/22/18 19:10 30 mg/dl mg/dL (Negative) 10/22/18 19:10 Neg mg/dL (Negative) 10/22/18 19:10 Tr mg/dL (Negative) 10/22/18 19:10 Neg (Negative) 10/22/18 19:10 Neg (Negative) 10/22/18 19:10 Neg (Negative) 10/22/18 19:10 < 2.0 mg/dL (<2.0) 10/22/18 19:10 Ur Leukocyte Esterase Neg (Negative) 10/22/18 19:10 1.0 /HPF (0.0-6.0) 10/22/18 19:10 3.0 /HPF (0.0-6.0) 10/22/18 19:10 Heparin-induced Plt Ab Negative (Negative) 10/30/18 13:58 UF Heparin High Dose 0 % Release 10/30/18 13:58 KIMO UFH Low Dose 0.1 0 % Release 10/30/18 13:58 KIMO UFH Low Dose 0.5 0 % Release 10/30/18 13:58 Active Medications - Current Medications Current Medications: Generic Name Dose Route Start Last Admin Trade Name Freq PRN Reason Stop Dose Admin Acetaminophen 650 mg 10/22/18 20:10 Tylenol PO Q4H PRN Pain MILD(1-3)/Fever >100.5/PORTER Albuterol 2.5 mg 10/22/18 20:14 11/05/18 16:35 Proventil IH 2.5 mg Q4HRT PRN Administration Shortness Of Breath Lipase/Protease/Amylase 1 each 11/05/18 10:13 Pancreaztr Simpson 10,500 Unit FEEDTUBE PRN PRN For Clogged Feeding Tube Arformoterol Tartrate 15 mcg 11/05/18 20:00 11/08/18 19:58 Brovana Nebu IH 15 mcg Q12HRT RICK Administration Budesonide 0.5 mg 10/23/18 08:00 11/08/18 19:58 Pulmicort IH 0.5 mg Q12HRT RICK Administration Dextrose 50 ml 10/26/18 23:40 10/27/18 00:20 D50w (25gm) Syringe IV 50 ml PRN PRN Administration Hypoglycemia Enoxaparin Sodium 40 mg 11/05/18 22:00 11/08/18 21:43 Lovenox SUB-Q 40 mg QDAY@2200 RICK Administration Fentanyl 50 mcg 11/08/18 15:00 11/09/18 00:55 Sublimaze IV 50 mcg Q2H PRN Administration pain, severe (7-10) Hydralazine HCl 10 mg 10/22/18 21:41 11/07/18 00:04 Apresoline IV 10 mg Q4HR PRN Administration Blood Pressure Hydrophilic Ointment 1 applic 11/07/18 09:14 Vaseline Lip Therapy TP Q2HR PRN Dry Lips Micafungin Sodium 100 mg/ 100 mls @ 100 mls/hr 11/02/18 10:00 11/08/18 10:20 Sodium Chloride IV 100 mls/hr QDAY RICK Administration Protocol Levofloxacin/Dextrose 500 mg in 100 mls @ 100 mls/hr 11/07/18 12:00 11/08/18 09:23 Levaquin 500mg/100ml IV 11/10/18 11:59 100 mls/hr Q24HR RICK Administration Protocol Amino Acids/Electrolytes/Dextrose 2,400 mls @ 100 mls/hr 11/08/18 20:00 11/08/18 21:42 Tpn Adult IV 11/09/18 19:59 100 mls/hr DAILY@2000 RICK Administration Protocol Insulin Human Isoph/Insulin Regular 8 unit 11/08/18 08:00 11/09/18 08:19 Humulin 70/30 SUB-Q 8 unit BIDDIAB RICK Administration Insulin Human Lispro 0 unit 10/29/18 12:00 11/09/18 00:57 Humalog SUB-Q 3 unit Q6HR RICK Administration Protocol Lorazepam 1 mg 11/06/18 11:00 11/09/18 00:54 Ativan IV 1 mg Q6H PRN Administration Anxiety Methylprednisolone Sodium Succinate 60 mg 11/09/18 07:00 11/09/18 08:20 Solu-Medrol IV 60 mg Q8HR RICK Administration Metoprolol Tartrate 5 mg 10/31/18 14:00 11/09/18 08:19 Lopressor IV 5 mg TID RICK Administration Multi-Ingred Cream/Lotion/Oil/Oint 1 applic 11/07/18 09:14 Artificial Tears Ophth Oint OU Q4HR PRN Dry Eye(s) Nitroglycerin 1 inch 11/07/18 18:00 11/08/18 17:51 Nitro-Bid 2% TP 1 inch TIDNTG RICK Administration Protocol Ondansetron HCl 4 mg 10/24/18 10:05 10/25/18 17:26 Zofran IV 4 mg Q6H PRN Administration Nausea And Vomiting Oxycodone/Acetaminophen 1 tab 11/05/18 11:16 11/09/18 08:20 Percocet 5/325 PO 1 tab Q6H PRN Administration Pain, Moderate (4-6) Pantoprazole Sodium 40 mg 11/05/18 10:00 11/08/18 10:20 Protonix IV 40 mg DAILY RICK Administration Phenol 1 spray 10/28/18 10:16 Chloraseptic MM PRN PRN Sore Throat Promethazine HCl 25 mg 10/22/18 20:10 10/22/18 21:21 Phenergan [place] 25 mg Q6H PRN Administration Nausea And Vomiting Simple Syrup 15 ml 11/05/18 10:13 Simple Syrup FEEDTUBE PRN PRN Hypoglycemia Simple Syrup 30 ml 11/05/18 10:13 Simple Syrup FEEDTUBE PRN PRN Hypoglycemia Sodium Bicarbonate 325 mg 11/05/18 10:13 Sodium Bicarbonate FEEDTUBE PRN PRN For Clogged Feeding Tube Sodium Chloride 10 ml 10/22/18 22:00 11/08/18 09:24 Sodium Chloride Flush Syringe 10 Ml IV 10 ml BID RICK Administration Sodium Chloride 10 ml 10/22/18 20:10 11/09/18 08:24 Sodium Chloride Flush Syringe 10 Ml IV 10 ml PRN PRN Administration LINE FLUSH Nutrition/Malnutrition Assess - Dietary Evaluation Nutrition/Malnutrition Findings: Nutrition Notes Start: 10/23/18 17:03 Freq: Status: Active Protocol: Document 11/08/18 14:59 RM (Rec: 11/08/18 15:05 RM [id number]) Nutrition Notes Initial or Follow up Reassessment Current Diagnosis COPD,Sepsis,Hypertension Other Pertinent Diagnosis Gastric peforation, partial SBO, lupus, opiod dependence, SIRS Current Diet PPN at 100 ml/hr + Vital 1.2 at 10 ml/hr Labs/Tests Reviewed Pertinent Medications Reviewed Height 5 ft 3 in Weight 72.8 kg [place] Body Weight (kg) 52.27 BMI 28.4 Subjective/Other Information PPN day 9. Observed Vital 1.2 infusing at 10 ml/hr. Per nurse pt is tolerating TF. Percent of energy/protein needs met: 43%/100% Burn Absent Trauma Absent #1 Nutrition Diagnosis Inadequate oral intake Diagnosis Progress(for reassessment Continues documentation) Is patient on ventilator? No Is Patient Ambulatory and/or Out of Bed No REE-([facility]-confined to bed) 1454.592 Kcal/Kg value to use for calculation 25 Approximate Energy Requirements Using 1820 kcal/Kg Calculation Used for Recommendations Kcal/kg Additional Notes Protein needs are 58-96g (1.2- 2g/kg) Fluid needs are 1ml/kcal Nutrition Intervention Change Diet Order: PPN and TF Nutrition Support: PPN at 100 ml/hr Kcal 728 Protein (gm) 80 Carbohydrates (gm) 120 Fat (gm) 0 Fluid (mL) 2,400 Fiber (gm) 0 Goal #1 Meet kcal and protein needs as best as possible Goal #2 Tolerate trophic feeds Anticipated Discharge Needs: Unable to determine at this time Follow-Up By: 11/09/18 Additional Comments Follow for labs in AM: BMP, Mg , Phos
--- NOTE | 2018-11-09 09:56 | Progress Note ---
Assessment and Plan Discontinue IV furosemide and utilize when necessary. - Patient Problems (1) Acute respiratory failure Current Visit: Yes Status: Acute Qualifiers: Respiratory failure complication: hypoxia Qualified Code(s): J96.01 - Acute respiratory failure with hypoxia (2) PAT (paroxysmal atrial tachycardia) Current Visit: Yes Status: Acute (3) Acute heart failure with preserved ejection fraction Current Visit: Yes Status: Acute (4) Tachy-adama syndrome Current Visit: Yes Status: Acute (5) Intractable nausea and vomiting Current Visit: Yes Status: Acute (6) Partial small bowel obstruction Current Visit: Yes Status: Acute (7) Perforated gastric ulcer Current Visit: Yes Status: Acute (8) COPD (chronic obstructive pulmonary disease) Current Visit: Yes Status: Chronic (9) ADWOA (acute kidney injury) Current Visit: Yes Status: Resolved Subjective Date of service: 11/09/18 Principal diagnosis: PAT, Tachy-adama syndrome, Acute resp failure, Partial SBO, Perf Interval history: Sedated. No new events overnight. Objective Vital Signs Temp Pulse Pulse Pulse Resp Resp BP 11/09/18 08:19 140 H 124/45 11/09/18 08:08 102 H 11/09/18 08:00 97.8 F 111 H 102 H 23 124/45 11/09/18 07:30 124 H 25 H 115/46 11/09/18 07:00 126 H 29 H 117/47 11/09/18 06:30 124 H 21 112/43 11/09/18 06:00 110 H 20 102/39 11/09/18 05:30 105 H 23 113/46 11/09/18 05:00 110 H 23 110/50 11/09/18 04:30 137 H 22 107/40 11/09/18 04:00 98.7 F 129 H 129 H 26 H 113/47 11/09/18 03:30 143 H 22 109/53 11/09/18 03:15 140 H 95/35 11/09/18 03:00 106 H 24 95/35 11/09/18 02:30 132 H 24 96/42 11/09/18 02:00 109 H 18 106/44 11/09/18 01:30 105 H 23 99/35 11/09/18 01:00 110 H 20 118/45 11/09/18 00:30 142 H 24 118/45 11/09/18 00:21 133 H 99/37 11/09/18 00:00 98.5 F 119 H 112 H 18 99/37 11/08/18 23:30 105 H 22 108/38 11/08/18 23:00 100 H 22 104/38 11/08/18 22:30 101 H 22 101/38 11/08/18 22:00 105 H 18 102/40 11/08/18 21:36 120 H 21 108/38 11/08/18 21:30 105 H 23 108/38 11/08/18 21:22 101 H 21 112/39 11/08/18 21:00 89 17 112/39 11/08/18 20:34 139 H 114/40 11/08/18 20:30 100 H 22 107/40 11/08/18 20:27 102 H 22 11/08/18 20:00 98.3 F 100 H 108 H 19 114/40 11/08/18 19:58 114 H 21 11/08/18 19:30 120 H 23 122/44 11/08/18 19:00 135 H 20 118/47 11/08/18 18:30 100 H 21 99/30 11/08/18 18:00 129 H 26 H 114/50 11/08/18 17:51 117 H 118/48 11/08/18 17:39 128 H 11/08/18 17:30 139 H 19 118/48 11/08/18 17:00 122 H 26 H 120/56 11/08/18 16:30 120 H 20 115/47 11/08/18 16:00 97.3 F L 112 H 112 H 18 123/47 11/08/18 15:36 110 H 11/08/18 15:30 110 H 20 122/46 11/08/18 15:00 108 H 22 123/43 11/08/18 14:30 106 H 16 116/51 11/08/18 14:09 122 H 127/49 11/08/18 14:00 141 H 22 124/49 11/08/18 13:30 137 H 22 132/51 11/08/18 13:00 119 H 20 121/49 11/08/18 12:30 116 H 21 128/51 11/08/18 12:00 97.4 F L 123 H 122 H 26 H 121/49 11/08/18 11:50 116 H 124/38 11/08/18 11:30 102 H 25 H 124/38 11/08/18 11:25 105 H 11/08/18 11:00 112 H 21 119/48 11/08/18 10:30 102 H 21 109/40 11/08/18 10:00 99 H 19 116/37 Last Vital Signs Temp 97.8 F 11/09/18 08:00 Pulse 132 H 11/09/18 08:40 Resp 23 11/09/18 08:00 BP 111/50 11/09/18 08:40 Pulse Ox 99 11/09/18 08:40 - Physical Examination General: No Apparent Distress, Other (intubated) HEENT: Positive: EOMI, Normocephaly, Mucus Membranes Moist Neck: Positive: neck supple, trachea midline Cardiac: Positive: Reg Rate and Rhythm, S1/S2 Lungs: Positive: Rhonchi Neuro: Positive: Grossly Intact, Other (intubated) Abdomen: Positive: Soft. Negative: Tender Skin: Positive: Clear. Negative: Rash Musculoskeletal: Decreased Range of Motion, Normal Range of Motion Extremities: Present: normal. Absent: edema - Labs and Meds CBC 11/09/18 Range/Units 06:51 WBC 13.5 H (4.5-11.0) K/mm3 RBC 2.97 L (3.65-5.03) M/mm3 Hgb 9.3 L (10.1-14.3) gm/dl Hct 27.6 L (30.3-42.9) % Plt Count 168 (140-440) K/mm3 Comprehensive Metabolic Panel 11/09/18 Range/Units 06:51 Sodium 142 (137-145) mmol/L Potassium 3.6 (3.6-5.0) mmol/L Chloride 96.5 L (98-107) mmol/L Carbon Dioxide 32 H (22-30) mmol/L BUN 58 H (7-17) mg/dL Creatinine 0.7 (0.7-1.2) mg/dL Glucose 191 H (65-100) mg/dL Calcium 7.5 L (8.4-10.2) mg/dL - Imaging and Cardiology EKG: image reviewed Echo: report reviewed (EF 50%, trace TR, minimal pericardial effusion. ) - Telemetry EKG Rhythm: Sinus Tachycardia - Allied health notes Allied health notes reviewed: nursing
[2018-11-09] MEDS: PROTONIX IV SCH (10:09)
[2018-11-09] MEDS: MYCAMINE 100 MG in NACL 0.9% 100 ML IV SCH (10:09)
[2018-11-09] MEDS: LEVAQUIN 500MG/100ML 500 MG/100 ML BAG IV SCH (10:09)
[2018-11-09] MEDS: SODIUM CHLORIDE FLUSH SYRINGE 10 ML IV SCH (10:09)
--- NOTE | 2018-11-09 12:09 | Progress Note ---
Assessment and Plan - Patient Problems (1) Partial small bowel obstruction Current Visit: Yes Status: Acute Plan to address problem: 73 yo F with 1. pSBO - resolved 2. contained gastric perforation 3. VDRF 4. aspiration PNA 5. sepsis 6. Fungemia in blood 7. Respiratory Failure Obstruction series 10/27 - improved small bowel and stomach dilatation. Obstructions series 10/28 - no significant change since previous study. NGT has been removed Obstruction series 10/29 - relatively normal bowel gas pattern. NGT in place Ct scan A/P from admission reviewed with Dr. Garces - LindyBO. Mesenteric vessels patent. Ct scan C/A/P 10/30 - Images reviewed with Dr. Garces - pSBO resolved, no evidence for bowel ischemia. Small contained gastric perforation at lesser curve. No gross free air or contrast extrav. Ansarca. Bilateral pleural effusions. Bilateral upper lobes infiltrates. Ct scan A/p 11/04 - No extravasation of contrast from stomach Plan: 1. NPO 2. Cont with TF 3. TPN - continue until patient on goal rate of TF 4. prn pain control 5. DVT ppx 6. c/w abx per ID 7. PPI daily 8. Will plan for trach only at this time. Will need at least 2 weeks for gastric healing before attempting endoscopy and insufflation. Procedure for trach discussed with . Procedure, risks, benefits discussed. All questions answered. Consent obtained. Will begin scheduling process tomorrow. Thank you, please call with questions. Subjective Date of service: 11/09/18 Patient Reports: Positive: no new complaints Objective Vital Signs - 12hr 11/09/18 11/09/18 11/09/18 00:21 00:30 01:00 Temperature Pulse Rate 133 H 142 H 110 H Pulse Rate [ From Monitor] Respiratory 24 20 Rate Blood Pressure 99/37 118/45 118/45 O2 Sat by Pulse 99 96 98 Oximetry 11/09/18 11/09/18 11/09/18 01:30 02:00 02:30 Temperature Pulse Rate 105 H 109 H 132 H Pulse Rate [ From Monitor] Respiratory 23 18 24 Rate Blood Pressure 99/35 106/44 96/42 O2 Sat by Pulse 98 99 97 Oximetry 11/09/18 11/09/18 11/09/18 03:00 03:15 03:30 Temperature Pulse Rate 106 H 140 H 143 H Pulse Rate [ From Monitor] Respiratory 24 22 Rate Blood Pressure 95/35 95/35 109/53 O2 Sat by Pulse 98 98 96 Oximetry 11/09/18 11/09/18 11/09/18 04:00 04:30 05:00 Temperature 98.7 F Pulse Rate 129 H 137 H 110 H Pulse Rate [ 129 H From Monitor] Respiratory 26 H 22 23 Rate Blood Pressure 113/47 107/40 110/50 O2 Sat by Pulse 95 96 96 Oximetry 11/09/18 11/09/18 11/09/18 05:30 06:00 06:30 Temperature Pulse Rate 105 H 110 H 124 H Pulse Rate [ From Monitor] Respiratory 23 20 21 Rate Blood Pressure 113/46 102/39 112/43 O2 Sat by Pulse 98 97 96 Oximetry 11/09/18 11/09/18 11/09/18 07:00 07:30 08:00 Temperature 97.8 F Pulse Rate 126 H 124 H 111 H Pulse Rate [ 102 H From Monitor] Respiratory 29 H 25 H 23 Rate Blood Pressure 117/47 115/46 124/45 O2 Sat by Pulse 96 95 96 Oximetry 11/09/18 11/09/18 11/09/18 08:08 08:19 08:30 Temperature Pulse Rate 102 H 140 H 136 H Pulse Rate [ From Monitor] Respiratory 19 Rate Blood Pressure 124/45 119/51 O2 Sat by Pulse 95 Oximetry 11/09/18 11/09/18 11/09/18 08:40 09:00 09:30 Temperature Pulse Rate 132 H 106 H 93 H Pulse Rate [ From Monitor] Respiratory 23 22 Rate Blood Pressure 111/50 113/49 111/50 O2 Sat by Pulse 99 95 96 Oximetry 11/09/18 11/09/18 11/09/18 10:00 10:30 11:00 Temperature Pulse Rate 127 H 99 H 116 H Pulse Rate [ From Monitor] Respiratory 17 22 29 H Rate Blood Pressure 122/47 118/38 116/51 O2 Sat by Pulse 96 98 97 Oximetry 11/09/18 11/09/18 11/09/18 11:30 11:50 12:00 Temperature Pulse Rate 117 H 117 H 144 H Pulse Rate [ From Monitor] Respiratory 21 20 Rate Blood Pressure 127/50 112/58 O2 Sat by Pulse 96 99 Oximetry - General physical appearance no distress, no pain, other (pt awake on vent) - ENT other (ETT and DHT in place.) - Respiratory normal expansion, normal respiratory effort - Labs 11/09/18 06:51 11/09/18 06:51 Diabetes panel 11/09/18 Range/Units 06:51 Sodium 142 (137-145) mmol/L Potassium 3.6 (3.6-5.0) mmol/L Chloride 96.5 L (98-107) mmol/L Carbon Dioxide 32 H (22-30) mmol/L BUN 58 H (7-17) mg/dL Creatinine 0.7 (0.7-1.2) mg/dL Glucose 191 H (65-100) mg/dL Calcium 7.5 L (8.4-10.2) mg/dL Calcium panel 11/09/18 11/09/18 Range/Units 06:51 06:51 Calcium 7.5 L (8.4-10.2) mg/dL Phosphorus 2.70 D (2.5-4.5) mg/dL Pituitary panel 11/09/18 Range/Units 06:51 Sodium 142 (137-145) mmol/L Potassium 3.6 (3.6-5.0) mmol/L Chloride 96.5 L (98-107) mmol/L Carbon Dioxide 32 H (22-30) mmol/L BUN 58 H (7-17) mg/dL Creatinine 0.7 (0.7-1.2) mg/dL Glucose 191 H (65-100) mg/dL Calcium 7.5 L (8.4-10.2) mg/dL Adrenal panel 11/09/18 Range/Units 06:51 Sodium 142 (137-145) mmol/L Potassium 3.6 (3.6-5.0) mmol/L Chloride 96.5 L (98-107) mmol/L Carbon Dioxide 32 H (22-30) mmol/L BUN 58 H (7-17) mg/dL Creatinine 0.7 (0.7-1.2) mg/dL Glucose 191 H (65-100) mg/dL Calcium 7.5 L (8.4-10.2) mg/dL
--- NOTE | 2018-11-09 18:57 | Progress Note ---
Assessment and Plan Cultures: Blood cultures 10/22/2018 no growth Tracheal asp cultures 10/28/2018: E.coli and Stenotrophomonas. 10/30/2018 blood culture: Ayla glabrata 11/03/2018 fungal blood culture: no growth thus far Assessment: 73 y/o female with history of COPD, hypertension, lupus, fibromyalgia, opioid dependence admitted on 10/22/2018 due to 3-day history of intractable nausea, vomiting, diarrhea: 1) SIRS v/s sepsis: fever and leukocytosis resolved. Etiology most likely aspiration pneumonia +/- intra-abdominal source from contained gastric perforation, now also with Candidemia. 2) Candidemia due to Ayla glabrata: in the setting of TPN and PICC line. PICC removed. Has temporary central line. TTE not optimal quality, will need LAUREN only if repeat fungal blood cultures are positive. Continue IV Micafungin and f/u fungal blood cultures. 3) Acute respiratory failure: pneumonia and fluid overload. Extubated 11/05/2018 and now reintubated 11/07/2018. 4) Presumed aspiration pneumonia v/s HAP: Tracheal asp cultures 10/28/2018 with E.coli and Stenotrophomonas. Stenotrophomonas is a known colonizer in patients with structural lung disease or tracheostomy tubes/ET tubes, not generally considered very virulent. Given her prolonged and complicated hospital stay, will complete a 10 day course of abx. 5) Ileus v/s partial SBO and contained gastric perforation: Gen Surgery follo wing. Planned for conservative management, trickle feeds and TPN. 6) ADWOA: improved. Recommendations: - stop levofloxacin to cover for Stenotrophomonas, D 10 of 10 - continue IV Micafungin, D8 to complete 14 days from negative blood cultures until 11/16/2018 Dr Joy will be rounding tomorrow Ame Garcia MD Infectious Diseases Pediatric Occupational Therapist [facility] M [phone] O [phone] Subjective Date of service: 11/09/18 Principal diagnosis: PAT, Tachy-adama syndrome, Acute resp failure, Partial SBO, Perf Interval history: Remains on the vent, alert, follows commands, no fever. ROS unable to obtain Objective - Exam Narrative Exam: General appearance: sedated intubated FiO2 35%, p6 Eyes: anicteric sclerae, moist conjunctivae; no lid-lag; PERRLA HENT: Atraumatic; oropharynx limited +NGT +ETT Neck: Trachea midline; supple, no thyromegaly or lymphadenopathy Lungs: distant BS CV: RRR no murmur Abdomen: Soft, non-tender Extremities: no edema, cyanosis Skin: Normal temperature, turgor and texture; no rash, ulcers or subcutaneous nodules Psych: no agitated Neuro:alert - Constitutional Vitals: Vital Signs Temp Pulse Resp BP Pulse Ox 98.2 F 139 H 21 114/41 97 11/09/18 16:00 11/09/18 18:00 11/09/18 18:00 11/09/18 18:00 11/09/18 18:00 Temperature -Last 24 Hours Temperature 98.2 F Temperature 97.8 F Temperature 98.7 F Temperature 98.5 F Temperature 98.3 F - Labs CBC & Chem 7: 11/09/18 06:51 11/09/18 06:51 Labs: Abnormal lab results 11/08/18 11/09/18 11/09/18 Range/Units 18:21 00:57 04:06 WBC (4.5-11.0) K/mm3 RBC (3.65-5.03) M/mm3 Hgb (10.1-14.3) gm/dl Hct (30.3-42.9) % POC ABG pH 7.509 H (7.35-7.45) Chloride (98-107) mmol/L Carbon Dioxide (22-30) mmol/L BUN (7-17) mg/dL Glucose (65-100) mg/dL POC Glucose 225 H 218 H (70-105) Calcium (8.4-10.2) mg/dL 11/09/18 11/09/18 11/09/18 Range/Units 06:06 06:51 06:51 WBC 13.5 H (4.5-11.0) K/mm3 RBC 2.97 L (3.65-5.03) M/mm3 Hgb 9.3 L (10.1-14.3) gm/dl Hct 27.6 L (30.3-42.9) % POC ABG pH (7.35-7.45) Chloride 96.5 L (98-107) mmol/L Carbon Dioxide 32 H (22-30) mmol/L BUN 58 H (7-17) mg/dL Glucose 191 H (65-100) mg/dL POC Glucose 199 H (70-105) Calcium 7.5 L (8.4-10.2) mg/dL 11/09/18 11/09/18 Range/Units 12:07 18:29 WBC (4.5-11.0) K/mm3 RBC (3.65-5.03) M/mm3 Hgb (10.1-14.3) gm/dl Hct (30.3-42.9) % POC ABG pH (7.35-7.45) Chloride (98-107) mmol/L Carbon Dioxide (22-30) mmol/L BUN (7-17) mg/dL Glucose (65-100) mg/dL POC Glucose 212 H 192 H (70-105) Calcium (8.4-10.2) mg/dL
[2018-11-09] MEDS ORDERED: TPN ADULT 2,400 ML IV SCH (20:00)
[2018-11-09] MEDS: LOVENOX SUB-Q SCH (21:18)
[2018-11-10] MEDS: HumaLOG SUB-Q SCH ×4 (00:22→17:28)
[2018-11-10] MEDS: PERCOCET 5/325 PO PRN (00:23)
[2018-11-10 05:13] LABS: BUN/Creatinine Ratio 76; Blood Urea Nitrogen 53 mg/dL (7-17); Calcium 7.7 mg/dL (8.4-10.2); Hemolysis Index 40
[2018-11-10 05:24] LABS: Hematocrit 28.9 % (30.3-42.9); Hemoglobin 9.7 gm/dl (10.1-14.3); Mean Corpuscular HGB Conc 34 % (30-34); Mean Corpuscular Volume 93 fl (79-97); Platelet Count 162 K/mm3 (140-440); Red Blood Count 3.09 M/mm3 (3.65-5.03); Red Cell Distribution Width 14.6 % (13.2-15.2)
[2018-11-10] MEDS: ATIVAN IV PRN ×3 (06:14→21:24)
[2018-11-10] MEDS: SOLU-Medrol IV SCH ×3 (06:15→21:14)
--- NOTE | 2018-11-10 08:14 | XRay Report ---
AP CHEST: HISTORY: Followup respiratory failure Lines and support devices remain in similar position 11/09/18. Hazy opacity at the left lung base is relatively stable suggesting atelectasis, small effusion or both. Left upper lobe and right lung are clear. Heart size is within normal limits. IMPRESSION: No change.
--- NOTE | 2018-11-10 08:22 | Hem/Onc Progress Note ---
Assessment and Plan 1. h/o Thrombocytopenia, likely medication, pts medical status related. 2. History of colon surgery in the past, details not clear. 3. History of bowel issues. Seen by surgical team. - pSBO and contained gastric perforation 4. h/o TPN. 5. h/o Ayla, ID following. 6. Chronic obstructive pulmonary disease. 7. Hypertension. 8. History of lupus. 9. Aspiration pneumonia. 10. The patient was on ventilation. 11. Renal impairment. pt on vent - pulm following plan for trach plt better - Patient Problems (1) Thrombocytopenia Current Visit: Yes Status: Acute Subjective Date of service: 11/10/18 Principal diagnosis: SOB - h/o low plt Interval history: on vent Objective - Constitutional Vitals: Last Vital Signs Temp 97.0 F L 11/10/18 04:00 Pulse 113 H 11/10/18 08:00 Resp 34 H 11/10/18 08:00 BP 120/39 11/10/18 08:00 Pulse Ox 98 11/10/18 08:00 General appearance: no acute distress Performance status: 4-completely disabled - EENT ENT: other (intubated) Lymph node exam: negative cervical - Respiratory Respiratory effort: Positive: normal Respiratory: bilateral: CTA (anteriorly) - Cardiovascular Heart Sounds: Present: S1 & S2 Extremities: normal temperature - Gastrointestinal General gastrointestinal: Present: soft Rectal Exam: deferred - Genitourinary Female genitourinary: Present: deferred - Integumentary Integumentary: warm - Musculoskeletal Musculoskeletal: generalized weakness - Labs Lab Results: Laboratory Results - last 24 hr 11/09/18 11/09/18 11/10/18 12:07 18:29 00:09 WBC RBC Hgb Hct MCV MCH MCHC RDW Plt Count POC ABG pH POC ABG pCO2 POC ABG pO2 POC ABG HCO3 POC ABG Total CO2 POC ABG O2 Sat POC ABG Base Excess FiO2 Sodium Potassium Chloride Carbon Dioxide Anion Gap BUN Creatinine Estimated GFR BUN/Creatinine Ratio Glucose POC Glucose 212 H 192 H 214 H Calcium Phosphorus Magnesium 11/10/18 11/10/18 11/10/18 04:21 04:39 04:39 WBC 14.3 H RBC 3.09 L Hgb 9.7 L Hct 28.9 L MCV 93 MCH 31 MCHC 34 RDW 14.6 Plt Count 162 POC ABG pH 7.467 H POC ABG pCO2 49.9 H POC ABG pO2 76 L POC ABG HCO3 36.1 POC ABG Total CO2 38 POC ABG O2 Sat 96 POC ABG Base Excess 12 FiO2 35 Sodium 139 Potassium 3.9 Chloride 97.5 L Carbon Dioxide 31 H Anion Gap 14 BUN 53 H Creatinine 0.7 Estimated GFR > 60 BUN/Creatinine Ratio 76 Glucose 196 H POC Glucose Calcium 7.7 L Phosphorus 3.30 D Magnesium 2.00 11/10/18 06:05 WBC RBC Hgb Hct MCV MCH MCHC RDW Plt Count POC ABG pH POC ABG pCO2 POC ABG pO2 POC ABG HCO3 POC ABG Total CO2 POC ABG O2 Sat POC ABG Base Excess FiO2 Sodium Potassium Chloride Carbon Dioxide Anion Gap BUN Creatinine Estimated GFR BUN/Creatinine Ratio Glucose POC Glucose 202 H Calcium Phosphorus Magnesium Medications & Allergies - Medications Allergies/Adverse Reactions: Allergies Sulfa (Sulfonamide Antibiotics) Allergy (Intermediate, Verified 10/22/18 16:30) Rash metoclopramide HCl [From Reglan] Allergy (Verified 10/22/18 16:30) Dizziness prochlorperazine [From Compazine] Allergy (Verified 10/22/18 16:30) NECK STIFFNESS Home Medications: Home Medications Medication Instructions Recorded Confirmed Last Taken Type Ondansetron 4 mg PO Q6HR PRN 12/05/16 10/22/18 10/29/17 History Propranolol HCl [Propranolol HCl 60 mg PO DAILY 12/05/16 10/22/18 10/30/17 22:00 History ER] QUEtiapine [SEROquel] 300 mg PO DAILY 12/05/16 10/22/18 10/30/17 History Lasix TAB 40 mg PO PRN PRN 12/07/16 10/22/18 10/24/17 History Percocet 10/325 mg 1 tab PO PRN PRN 12/07/16 10/22/18 10/30/17 History Albuterol Sulfate [Albuterol 0.63% 0.63 mg IH TID PRN 10/22/17 10/22/18 10/29/17 History NEBS] Active Medications: Generic Name Dose Route Start Last Admin Trade Name Freq PRN Reason Stop Dose Admin Acetaminophen 650 mg 10/22/18 20:10 Tylenol PO Q4H PRN Pain MILD(1-3)/Fever >100.5/PORTER Albuterol 2.5 mg 10/22/18 20:14 11/05/18 16:35 Proventil IH 2.5 mg Q4HRT PRN Administration Shortness Of Breath Lipase/Protease/Amylase 1 each 11/05/18 10:13 Gwendolyn Simpson 10,500 Unit FEEDTUBE PRN PRN For Clogged Feeding Tube Arformoterol Tartrate 15 mcg 11/05/18 20:00 11/09/18 20:21 Brovana Nebu IH 15 mcg Q12HRT RICK Administration Budesonide 0.5 mg 10/23/18 08:00 11/09/18 20:21 Pulmicort IH 0.5 mg Q12HRT RICK Administration Dextrose 50 ml 10/26/18 23:40 10/27/18 00:20 D50w (25gm) Syringe IV 50 ml PRN PRN Administration Hypoglycemia Enoxaparin Sodium 40 mg 11/05/18 22:00 11/09/18 21:18 Lovenox SUB-Q 40 mg QDAY@2200 RICK Administration Fentanyl 50 mcg 11/08/18 15:00 11/09/18 21:17 Sublimaze IV 50 mcg Q2H PRN Administration pain, severe (7-10) Hydralazine HCl 10 mg 10/22/18 21:41 11/07/18 00:04 Apresoline IV 10 mg Q4HR PRN Administration Blood Pressure Hydrophilic Ointment 1 applic 11/07/18 09:14 Vaseline Lip Therapy TP Q2HR PRN Dry Lips Micafungin Sodium 100 mg/ 100 mls @ 100 mls/hr 11/02/18 10:00 11/09/18 10:09 Sodium Chloride IV 100 mls/hr QDAY RICK Administration Protocol Amino Acids/Electrolytes/Dextrose 2,400 mls @ 100 mls/hr 11/09/18 20:00 11/09/18 19:56 Tpn Adult IV 11/10/18 19:59 100 mls/hr DAILY@2000 [facility] Administration Protocol Insulin Human Isoph/Insulin Regular 8 unit 11/08/18 08:00 11/09/18 16:50 Humulin 70/30 SUB-Q 8 unit BIDDIAB RICK Administration Insulin Human Lispro 0 unit 10/29/18 12:00 11/10/18 00:22 Humalog SUB-Q 3 unit Q6HR RICK Administration Protocol Lorazepam 1 mg 11/06/18 11:00 11/10/18 06:14 Ativan IV 1 mg Q6H PRN Administration Anxiety Methylprednisolone Sodium Succinate 60 mg 11/09/18 07:00 11/10/18 06:15 Solu-Medrol IV 60 mg Q8HR RICK Administration Metoprolol Tartrate 5 mg 10/31/18 14:00 11/09/18 19:55 Lopressor IV 5 mg TID RICK Administration Multi-Ingred Cream/Lotion/Oil/Oint 1 applic 11/07/18 09:14 Artificial Tears Ophth Oint OU Q4HR PRN Dry Eye(s) Ondansetron HCl 4 mg 10/24/18 10:05 10/25/18 17:26 Zofran IV 4 mg Q6H PRN Administration Nausea And Vomiting Oxycodone/Acetaminophen 1 tab 11/05/18 11:16 11/10/18 00:23 Percocet 5/325 PO 1 tab Q6H PRN Administration Pain, Moderate (4-6) Pantoprazole Sodium 40 mg 11/05/18 10:00 11/09/18 10:09 Protonix IV 40 mg DAILY RICK Administration Phenol 1 spray 10/28/18 10:16 Chloraseptic MM PRN PRN Sore Throat Promethazine HCl 25 mg 10/22/18 20:10 10/22/18 21:21 Phenergan MD 25 mg Q6H PRN Administration Nausea And Vomiting Simple Syrup 15 ml 11/05/18 10:13 Simple Syrup FEEDTUBE PRN PRN Hypoglycemia Simple Syrup 30 ml 11/05/18 10:13 Simple Syrup FEEDTUBE PRN PRN Hypoglycemia Sodium Bicarbonate 325 mg 11/05/18 10:13 Sodium Bicarbonate FEEDTUBE PRN PRN For Clogged Feeding Tube Sodium Chloride 10 ml 10/22/18 22:00 11/09/18 10:09 Sodium Chloride Flush Syringe 10 Ml IV 10 ml BID RICK Administration Sodium Chloride 10 ml 10/22/18 20:10 11/09/18 14:29 Sodium Chloride Flush Syringe 10 Ml IV 10 ml PRN PRN Administration LINE FLUSH
[2018-11-10] MEDS: SODIUM CHLORIDE FLUSH SYRINGE 10 ML IV SCH ×3 (08:34→21:16)
[2018-11-10] MEDS: PULMICORT IH SCH ×2 (08:37→20:41)
[2018-11-10] MEDS: BROVANA NEBU IH SCH ×2 (08:37→20:41)
--- NOTE | 2018-11-10 08:43 | Progress Note ---
Assessment and Plan ARF , failure to wean off and factor support. Fungemia. On medical muscle, suspected secondary to PICC line Bilateral upper lobe pneumonia. Only small infiltrate on the left base Partial bowel obstruction, perforation. Improved Mixed acidosis improved Chronic pain medications, anti-psychotic therapy . Possible trigger bowel obstruction process Thrombocytopenia. Improved Hypertension, Bradycardia episodes. Stopping Lasix COPD.On nebs.increased congestion. Question of infiltrates on CXR Rec Tracheotomy scheduled by surgery. I related that she will also benefit from PEG placement in order to continue nutrition, avoid central line nutrition SBT in the morning, continue minimal sedation Long-term placement planning Discussed with patient,spouse and staff in detail. All questions answered. Critical care time was 31 minutes of [id number] evaluation and coordination of care Subjective Date of service: 11/11/18 Interval history: Some abdominal discomfort . No shortness of breath. No new events overnight Objective Vital Signs - 12hr 11/09/18 11/09/18 11/09/18 20:45 21:00 21:30 Temperature Pulse Rate 95 H 104 H Pulse Rate [ 107 H Anterior Bilateral Throughout] Pulse Rate [ From Monitor] Respiratory 24 16 Rate Respiratory 20 Rate [Anterior Bilateral Throughout] Blood Pressure 123/51 115/50 O2 Sat by Pulse 98 97 Oximetry 11/09/18 11/09/18 11/09/18 22:00 22:04 22:30 Temperature Pulse Rate 98 H 126 H 108 H Pulse Rate [ Anterior Bilateral Throughout] Pulse Rate [ From Monitor] Respiratory 19 20 21 Rate Respiratory Rate [Anterior Bilateral Throughout] Blood Pressure 106/40 106/40 109/45 O2 Sat by Pulse 99 99 97 Oximetry 11/09/18 11/09/18 11/09/18 23:00 23:07 23:30 Temperature Pulse Rate 99 H 90 99 H Pulse Rate [ Anterior Bilateral Throughout] Pulse Rate [ From Monitor] Respiratory 19 21 Rate Respiratory Rate [Anterior Bilateral Throughout] Blood Pressure 98/52 98/52 109/45 O2 Sat by Pulse 96 98 96 Oximetry 11/10/18 11/10/18 11/10/18 00:00 00:30 01:00 Temperature 97.6 F Pulse Rate 101 H 112 H 105 H Pulse Rate [ Anterior Bilateral Throughout] Pulse Rate [ 97 H From Monitor] Respiratory 20 21 21 Rate Respiratory Rate [Anterior Bilateral Throughout] Blood Pressure 119/43 113/43 113/52 O2 Sat by Pulse 97 95 95 Oximetry 11/10/18 11/10/18 11/10/18 01:30 02:00 02:30 Temperature Pulse Rate 124 H 107 H 132 H Pulse Rate [ Anterior Bilateral Throughout] Pulse Rate [ From Monitor] Respiratory 17 21 18 Rate Respiratory Rate [Anterior Bilateral Throughout] Blood Pressure 120/51 112/39 110/47 O2 Sat by Pulse 96 96 97 Oximetry 11/10/18 11/10/18 11/10/18 03:00 03:18 03:30 Temperature Pulse Rate 116 H 120 H 118 H Pulse Rate [ Anterior Bilateral Throughout] Pulse Rate [ From Monitor] Respiratory 22 22 Rate Respiratory Rate [Anterior Bilateral Throughout] Blood Pressure 116/55 116/55 126/45 O2 Sat by Pulse 95 96 95 Oximetry 11/10/18 11/10/18 11/10/18 04:00 04:30 05:00 Temperature 97.0 F L Pulse Rate 107 H 113 H 110 H Pulse Rate [ Anterior Bilateral Throughout] Pulse Rate [ 123 H From Monitor] Respiratory 20 21 20 Rate Respiratory Rate [Anterior Bilateral Throughout] Blood Pressure 110/36 127/54 118/45 O2 Sat by Pulse 96 95 95 Oximetry 11/10/18 11/10/18 11/10/18 05:30 06:00 06:30 Temperature Pulse Rate 112 H 119 H 123 H Pulse Rate [ Anterior Bilateral Throughout] Pulse Rate [ From Monitor] Respiratory 21 20 30 H Rate Respiratory Rate [Anterior Bilateral Throughout] Blood Pressure 102/58 106/55 102/58 O2 Sat by Pulse 98 95 97 Oximetry 11/10/18 11/10/18 11/10/18 07:00 07:30 08:00 Temperature Pulse Rate 132 H 94 H 113 H Pulse Rate [ Anterior Bilateral Throughout] Pulse Rate [ From Monitor] Respiratory 26 H 24 34 H Rate Respiratory Rate [Anterior Bilateral Throughout] Blood Pressure 124/40 114/46 120/39 O2 Sat by Pulse 97 99 98 Oximetry 11/10/18 11/10/18 08:29 08:37 Temperature Pulse Rate 100 H Pulse Rate [ 102 H Anterior Bilateral Throughout] Pulse Rate [ From Monitor] Respiratory Rate Respiratory 24 Rate [Anterior Bilateral Throughout] Blood Pressure 130/49 O2 Sat by Pulse 99 Oximetry Constitutional: alert Eyes: non-icteric ENT: other (orally intubated) Neck: supple, no JVD Effort: mildly labored Ascultation: Bilateral: clear, diminished breath sounds (at bases) Percussion: Bilateral: not dull Cardiovascular: regular rate and rhythm Gastrointestinal: hypoactive bowel sounds, other (soft and depressible. Decreased bowel sounds, no rebound tenderness mild distention) Integumentary: normal Extremities: no edema Neurologic: normal mental status, non-focal exam Psychiatric: anxious CBC and BMP: 11/11/18 05:50 11/11/18 05:50 ABG, PT/INR, D-dimer: ABG POC ABG pH 7.467 (7.35-7.45) H 11/10/18 04:21 POC ABG pCO2 49.9 (35-45) H 11/10/18 04:21 POC ABG pO2 76 (80-105) L 11/10/18 04:21 POC ABG HCO3 36.1 (22-26 mml/L) 11/10/18 04:21 POC ABG Total CO2 38 (23-27mmol/L) 11/10/18 04:21 POC ABG O2 Sat 96 11/10/18 04:21 Abnormal lab findings: Abnormal Labs 10/22/18 10/22/18 10/22/18 15:31 15:54 15:54 WBC 11.5 H RBC 5.35 H Hgb 17.4 H Hct 50.3 H MCV MCH 33 H MCHC 35 H Plt Count Lymph % (Auto) 12.6 L [place] % (Auto) 14.8 H Lymph # [place] # 1.7 H Seg Neutrophils % 72.5 H Seg Neuts % (Manual) Lymphocytes % (Manual) Seg Neutrophils # 8.3 H Seg Neutrophils # Man Lymphocytes # (Manual) POC ABG pH POC ABG pCO2 POC ABG pO2 Sodium 134 L Potassium Chloride 88.1 L Carbon Dioxide BUN 51 H Creatinine 2.1 H Glucose 166 H POC Glucose Calcium Phosphorus Magnesium NT-Pro-B Natriuret Pep Total Protein Albumin 3.4 L Lipase 10 L Free T4 10/23/18 10/23/18 10/23/18 04:32 04:32 10:53 WBC RBC Hgb Hct MCV MCH MCHC Plt Count Lymph % (Auto) 10.2 L [place] % (Auto) 14.7 H Lymph # 0.7 L [place] # 1.0 H Seg Neutrophils % 74.9 H Seg Neuts % (Manual) Lymphocytes % (Manual) Seg Neutrophils # Seg Neutrophils # Man Lymphocytes # (Manual) POC ABG pH POC ABG pCO2 POC ABG pO2 Sodium Potassium 3.1 L D 3.5 L Chloride Carbon Dioxide BUN 41 H 37 H Creatinine Glucose 111 H 110 H POC Glucose Calcium 8.1 L 8.1 L Phosphorus Magnesium NT-Pro-B Natriuret Pep Total Protein Albumin Lipase Free T4 10/24/18 10/24/18 10/25/18 05:34 05:34 04:51 WBC RBC Hgb Hct MCV MCH MCHC Plt Count Lymph % (Auto) [place] % (Auto) Lymph # [place] # Seg Neutrophils % Seg Neuts % (Manual) Lymphocytes % (Manual) Seg Neutrophils # Seg Neutrophils # Man Lymphocytes # (Manual) POC ABG pH POC ABG pCO2 POC ABG pO2 Sodium Potassium 3.2 L 3.1 L Chloride 109.8 H 114.2 H Carbon Dioxide 17 L D BUN 21 H Creatinine Glucose 134 H 171 H POC Glucose Calcium 7.7 L 7.0 L Phosphorus 0.80 L* Magnesium NT-Pro-B Natriuret Pep Total Protein Albumin Lipase Free T4 10/25/18 10/26/18 10/26/18 06:07 02:58 04:57 WBC RBC Hgb Hct MCV 99 H MCH 33 H MCHC Plt Count Lymph % (Auto) [place] % (Auto) Lymph # [place] # Seg Neutrophils % Seg Neuts % (Manual) Lymphocytes % (Manual) Seg Neutrophils # Seg Neutrophils # Man Lymphocytes # (Manual) POC ABG pH 7.090 L 7.320 L POC ABG pCO2 65.0 H 32.8 L POC ABG pO2 76 L Sodium Potassium Chloride Carbon Dioxide BUN Creatinine Glucose POC Glucose Calcium Phosphorus Magnesium NT-Pro-B Natriuret Pep Total Protein Albumin Lipase Free T4 10/26/18 10/26/18 10/26/18 06:03 06:03 11:52 WBC 23.8 H RBC Hgb 15.4 H Hct 46.1 H D MCV MCH MCHC Plt Count Lymph % (Auto) [place] % (Auto) Lymph # [place] # Seg Neutrophils % Seg Neuts % (Manual) Lymphocytes % (Manual) Seg Neutrophils # Seg Neutrophils # Man Lymphocytes # (Manual) POC ABG pH POC ABG pCO2 POC ABG pO2 Sodium Potassium Chloride 109.5 H Carbon Dioxide 18 L BUN Creatinine Glucose 128 H POC Glucose 117 H Calcium 8.3 L D Phosphorus Magnesium NT-Pro-B Natriuret Pep Total Protein Albumin Lipase Free T4 10/26/18 10/26/18 10/26/18 13:54 17:10 17:32 WBC RBC Hgb Hct MCV MCH MCHC Plt Count Lymph % (Auto) [place] % (Auto) Lymph # [place] # Seg Neutrophils % Seg Neuts % (Manual) Lymphocytes % (Manual) Seg Neutrophils # Seg Neutrophils # Man Lymphocytes # (Manual) POC ABG pH 7.215 L POC ABG pCO2 31.8 L POC ABG pO2 69 L 204 H Sodium Potassium 3.0 L D Chloride 114.5 H Carbon Dioxide 21 L BUN Creatinine Glucose POC Glucose Calcium 7.6 L Phosphorus Magnesium 1.40 L NT-Pro-B Natriuret Pep Total Protein Albumin Lipase Free T4 10/26/18 10/27/18 10/27/18 23:13 00:40 01:09 WBC RBC Hgb Hct MCV MCH MCHC Plt Count Lymph % (Auto) [place] % (Auto) Lymph # [place] # Seg Neutrophils % Seg Neuts % (Manual) Lymphocytes % (Manual) Seg Neutrophils # Seg Neutrophils # Man Lymphocytes # (Manual) POC ABG pH POC ABG pCO2 POC ABG pO2 Sodium Potassium 3.4 L Chloride 115.0 H Carbon Dioxide 14 L D BUN Creatinine Glucose 228 H POC Glucose 48 L 264 H Calcium 7.1 L Phosphorus Magnesium NT-Pro-B Natriuret Pep Total Protein Albumin Lipase Free T4 10/27/18 10/27/18 10/27/18 05:00 05:00 05:16 WBC 22.5 H RBC Hgb 14.7 H Hct 44.4 H MCV MCH MCHC Plt Count Lymph % (Auto) [place] % (Auto) Lymph # [place] # Seg Neutrophils % Seg Neuts % (Manual) Lymphocytes % (Manual) Seg Neutrophils # Seg Neutrophils # Man Lymphocytes # (Manual) POC ABG pH 7.304 L POC ABG pCO2 POC ABG pO2 116 H Sodium Potassium Chloride 118.4 H Carbon Dioxide 16 L BUN Creatinine Glucose 123 H POC Glucose Calcium 7.7 L Phosphorus Magnesium 2.60 H NT-Pro-B Natriuret Pep Total Protein Albumin Lipase Free T4 10/28/18 10/28/18 10/28/18 04:25 04:25 15:37 WBC 23.5 H RBC Hgb Hct MCV MCH MCHC Plt Count Lymph % (Auto) [place] % (Auto) Lymph # [place] # Seg Neutrophils % Seg Neuts % (Manual) Lymphocytes % (Manual) Seg Neutrophils # Seg Neutrophils # Man Lymphocytes # (Manual) POC ABG pH POC ABG pCO2 POC ABG pO2 Sodium 147 H Potassium Chloride 116.9 H Carbon Dioxide 16 L BUN 23 H Creatinine Glucose POC Glucose 114 H Calcium 8.0 L Phosphorus Magnesium NT-Pro-B Natriuret Pep Total Protein Albumin Lipase Free T4 10/28/18 10/28/18 10/28/18 20:33 22:07 23:31 WBC RBC Hgb Hct MCV MCH MCHC Plt Count Lymph % (Auto) [place] % (Auto) Lymph # [place] # Seg Neutrophils % Seg Neuts % (Manual) Lymphocytes % (Manual) Seg Neutrophils # Seg Neutrophils # Man Lymphocytes # (Manual) POC ABG pH 7.202 L 7.235 L POC ABG pCO2 POC ABG pO2 71 L Sodium Potassium Chloride Carbon Dioxide BUN Creatinine Glucose POC Glucose 207 H Calcium Phosphorus Magnesium NT-Pro-B Natriuret Pep Total Protein Albumin Lipase Free T4 10/29/18 10/29/18 10/29/18 04:30 04:30 05:26 WBC 21.1 H RBC Hgb Hct MCV MCH MCHC Plt Count Lymph % (Auto) [place] % (Auto) Lymph # [place] # Seg Neutrophils % Seg Neuts % (Manual) 97.0 H Lymphocytes % (Manual) 3.0 L Seg Neutrophils # Seg Neutrophils # Man 20.5 H Lymphocytes # (Manual) 0.6 L POC ABG pH 7.305 L POC ABG pCO2 30.5 L POC ABG pO2 75 L Sodium 147 H Potassium 3.5 L Chloride 120.0 H Carbon Dioxide 17 L BUN 30 H Creatinine Glucose 246 H POC Glucose Calcium 7.9 L Phosphorus Magnesium NT-Pro-B Natriuret Pep Total Protein Albumin Lipase Free T4 10/29/18 10/29/18 10/29/18 05:36 11:39 18:00 WBC RBC Hgb Hct MCV MCH MCHC Plt Count Lymph % (Auto) [place] % (Auto) Lymph # [place] # Seg Neutrophils % Seg Neuts % (Manual) Lymphocytes % (Manual) Seg Neutrophils # Seg Neutrophils # Man Lymphocytes # (Manual) POC ABG pH POC ABG pCO2 POC ABG pO2 Sodium Potassium Chloride Carbon Dioxide BUN Creatinine Glucose POC Glucose 204 H 224 H 221 H Calcium Phosphorus Magnesium NT-Pro-B Natriuret Pep Total Protein Albumin Lipase Free T4 10/29/18 10/30/1810/30/19 23:17 05:00 05:00 WBC 21.4 H RBC Hgb Hct MCV MCH MCHC Plt Count 134 L Lymph % (Auto) [place] % (Auto) Lymph # [place] # Seg Neutrophils % Seg Neuts % (Manual) 97.0 H Lymphocytes % (Manual) 3.0 L Seg Neutrophils # Seg Neutrophils # Man 20.8 H Lymphocytes # (Manual) 0.6 L POC ABG pH POC ABG pCO2 POC ABG pO2 Sodium 148 H Potassium 3.1 L Chloride 120.3 H Carbon Dioxide 18 L BUN 31 H Creatinine Glucose 205 H POC Glucose 181 H Calcium 8.0 L Phosphorus Magnesium NT-Pro-B Natriuret Pep Total Protein Albumin Lipase Free T4 10/30/18 10/30/18 10/30/18 05:14 05:25 05:26 WBC RBC Hgb Hct MCV MCH MCHC Plt Count Lymph % (Auto) [place] % (Auto) Lymph # [place] # Seg Neutrophils % Seg Neuts % (Manual) Lymphocytes % (Manual) Seg Neutrophils # Seg Neutrophils # Man Lymphocytes # (Manual) POC ABG pH 7.296 L 7.245 L POC ABG pCO2 31.1 L POC ABG pO2 54 L 59 L Sodium Potassium Chloride Carbon Dioxide BUN Creatinine Glucose POC Glucose 199 H Calcium Phosphorus Magnesium NT-Pro-B Natriuret Pep Total Protein Albumin Lipase Free T4 10/30/18 10/30/18 10/31/18 13:23 18:25 00:22 WBC RBC Hgb Hct MCV MCH MCHC Plt Count Lymph % (Auto) [place] % (Auto) Lymph # [place] # Seg Neutrophils % Seg Neuts % (Manual) Lymphocytes % (Manual) Seg Neutrophils # Seg Neutrophils # Man Lymphocytes # (Manual) POC ABG pH POC ABG pCO2 POC ABG pO2 Sodium Potassium Chloride Carbon Dioxide BUN Creatinine Glucose POC Glucose 146 H 158 H 162 H Calcium Phosphorus Magnesium NT-Pro-B Natriuret Pep Total Protein Albumin Lipase Free T4 10/31/18 10/31/18 10/31/18 04:39 05:14 07:05 WBC RBC Hgb Hct MCV MCH MCHC Plt Count Lymph % (Auto) [place] % (Auto) Lymph # [place] # Seg Neutrophils % Seg Neuts % (Manual) Lymphocytes % (Manual) Seg Neutrophils # Seg Neutrophils # Man Lymphocytes # (Manual) POC ABG pH 7.238 L POC ABG pCO2 POC ABG pO2 Sodium Potassium Chloride 115.8 H Carbon Dioxide 18 L BUN 39 H Creatinine 1.3 H Glucose 167 H POC Glucose 145 H Calcium 7.5 L Phosphorus 1.80 L Magnesium NT-Pro-B Natriuret Pep Total Protein Albumin Lipase Free T4 10/31/18 10/31/18 10/31/18 10:43 12:03 17:00 WBC RBC Hgb Hct MCV MCH MCHC Plt Count Lymph % (Auto) [place] % (Auto) Lymph # [place] # Seg Neutrophils % Seg Neuts % (Manual) Lymphocytes % (Manual) Seg Neutrophils # Seg Neutrophils # Man Lymphocytes # (Manual) POC ABG pH 7.304 L POC ABG pCO2 33.3 L POC ABG pO2 Sodium Potassium Chloride Carbon Dioxide BUN Creatinine Glucose POC Glucose 159 H Calcium Phosphorus Magnesium NT-Pro-B Natriuret Pep Total Protein Albumin Lipase Free T4 0.49 L 10/31/18 11/01/18 11/01/18 17:00 00:44 05:27 WBC RBC Hgb Hct MCV MCH MCHC Plt Count Lymph % (Auto) [place] % (Auto) Lymph # [place] # Seg Neutrophils % Seg Neuts % (Manual) Lymphocytes % (Manual) Seg Neutrophils # Seg Neutrophils # Man Lymphocytes # (Manual) POC ABG pH 7.248 L POC ABG pCO2 34.8 L POC ABG pO2 135 H Sodium Potassium Chloride Carbon Dioxide BUN Creatinine Glucose POC Glucose 127 H 118 H Calcium Phosphorus Magnesium NT-Pro-B Natriuret Pep Total Protein Albumin Lipase Free T4 11/01/18 11/01/18 11/01/18 06:40 06:40 06:53 WBC 18.9 H RBC 3.63 L Hgb Hct MCV MCH MCHC Plt Count 64 L Lymph % (Auto) [place] % (Auto) Lymph # [place] # Seg Neutrophils % Seg Neuts % (Manual) 98.0 H Lymphocytes % (Manual) 1.0 L Seg Neutrophils # Seg Neutrophils # Man 18.5 H Lymphocytes # (Manual) 0.2 L POC ABG pH POC ABG pCO2 POC ABG pO2 Sodium Potassium 3.5 L Chloride 114.2 H Carbon Dioxide 17 L BUN 49 H Creatinine Glucose 107 H POC Glucose 127 H Calcium 7.3 L Phosphorus Magnesium 1.60 L NT-Pro-B Natriuret Pep Total Protein Albumin Lipase Free T4 11/01/18 11/01/18 11/01/18 11:49 13:13 17:24 WBC RBC Hgb Hct MCV MCH MCHC Plt Count Lymph % (Auto) [place] % (Auto) Lymph # [place] # Seg Neutrophils % Seg Neuts % (Manual) Lymphocytes % (Manual) Seg Neutrophils # Seg Neutrophils # Man Lymphocytes # (Manual) POC ABG pH POC ABG pCO2 POC ABG pO2 182 H Sodium Potassium Chloride Carbon Dioxide BUN Creatinine Glucose POC Glucose 134 H 111 H Calcium Phosphorus Magnesium NT-Pro-B Natriuret Pep Total Protein Albumin Lipase Free T4 11/01/18 11/02/18 11/02/18 23:07 04:32 05:00 WBC RBC Hgb Hct MCV MCH MCHC Plt Count Lymph % (Auto) [place] % (Auto) Lymph # [place] # Seg Neutrophils % Seg Neuts % (Manual) Lymphocytes % (Manual) Seg Neutrophils # Seg Neutrophils # Man Lymphocytes # (Manual) POC ABG pH 7.244 L POC ABG pCO2 33.2 L POC ABG pO2 123 H Sodium Potassium 3.0 L Chloride 114.1 H Carbon Dioxide 15 L BUN 47 H Creatinine Glucose 127 H POC Glucose 123 H Calcium 7.7 L Phosphorus Magnesium NT-Pro-B Natriuret Pep Total Protein Albumin Lipase Free T4 11/02/18 11/02/18 11/02/18 05:00 05:29 11:27 WBC RBC Hgb Hct MCV MCH MCHC Plt Count Lymph % (Auto) [place] % (Auto) Lymph # [place] # Seg Neutrophils % Seg Neuts % (Manual) Lymphocytes % (Manual) Seg Neutrophils # Seg Neutrophils # Man Lymphocytes # (Manual) POC ABG pH POC ABG pCO2 POC ABG pO2 Sodium Potassium Chloride Carbon Dioxide BUN Creatinine Glucose POC Glucose 118 H 137 H Calcium Phosphorus Magnesium 1.60 L NT-Pro-B Natriuret Pep Total Protein Albumin Lipase Free T4 11/02/18 11/02/18 11/03/18 12:53 23:35 04:14 WBC RBC Hgb Hct MCV MCH MCHC Plt Count Lymph % (Auto) [place] % (Auto) Lymph # [place] # Seg Neutrophils % Seg Neuts % (Manual) Lymphocytes % (Manual) Seg Neutrophils # Seg Neutrophils # Man Lymphocytes # (Manual) POC ABG pH POC ABG pCO2 30.3 L POC ABG pO2 134 H 129 H Sodium Potassium Chloride Carbon Dioxide BUN Creatinine Glucose POC Glucose 115 H Calcium Phosphorus Magnesium NT-Pro-B Natriuret Pep Total Protein Albumin Lipase Free T4 11/03/18 11/03/18 11/03/18 05:34 11:30 11:30 WBC 16.4 H RBC 3.50 L Hgb Hct MCV MCH MCHC Plt Count 136 L D Lymph % (Auto) [place] % (Auto) Lymph # [place] # Seg Neutrophils % Seg Neuts % (Manual) 97.0 H Lymphocytes % (Manual) 2.0 L Seg Neutrophils # Seg Neutrophils # Man 15.9 H Lymphocytes # (Manual) 0.3 L POC ABG pH POC ABG pCO2 POC ABG pO2 Sodium Potassium 3.1 L Chloride 110.4 H Carbon Dioxide 17 L BUN 41 H Creatinine Glucose 129 H POC Glucose 116 H Calcium 7.7 L Phosphorus Magnesium 1.60 L NT-Pro-B Natriuret Pep Total Protein 4.2 L Albumin 1.2 L Lipase Free T4 11/03/18 11/03/18 11/03/18 12:01 17:35 21:37 WBC RBC Hgb Hct MCV MCH MCHC Plt Count Lymph % (Auto) [place] % (Auto) Lymph # [place] # Seg Neutrophils % Seg Neuts % (Manual) Lymphocytes % (Manual) Seg Neutrophils # Seg Neutrophils # Man Lymphocytes # (Manual) POC ABG pH POC ABG pCO2 POC ABG pO2 Sodium Potassium Chloride Carbon Dioxide BUN Creatinine Glucose POC Glucose 132 H 132 H 126 H Calcium Phosphorus Magnesium NT-Pro-B Natriuret Pep Total Protein Albumin Lipase Free T4 11/03/18 11/04/18 11/04/18 23:30 05:14 05:15 WBC RBC Hgb Hct MCV MCH MCHC Plt Count Lymph % (Auto) [place] % (Auto) Lymph # [place] # Seg Neutrophils % Seg Neuts % (Manual) Lymphocytes % (Manual) Seg Neutrophils # Seg Neutrophils # Man Lymphocytes # (Manual) POC ABG pH POC ABG pCO2 30.9 L POC ABG pO2 192 H Sodium Potassium Chloride Carbon Dioxide BUN Creatinine Glucose POC Glucose 115 H 123 H Calcium Phosphorus Magnesium NT-Pro-B Natriuret Pep Total Protein Albumin Lipase Free T4 11/04/18 11/04/18 11/04/18 09:39 09:39 11:43 WBC 15.2 H RBC 3.18 L Hgb Hct 29.9 L MCV MCH MCHC Plt Count Lymph % (Auto) [place] % (Auto) Lymph # [place] # Seg Neutrophils % Seg Neuts % (Manual) 98.0 H Lymphocytes % (Manual) 1.0 L Seg Neutrophils # Seg Neutrophils # Man 14.9 H Lymphocytes # (Manual) 0.2 L POC ABG pH POC ABG pCO2 POC ABG pO2 Sodium 135 L D Potassium Chloride 109.5 H Carbon Dioxide 16 L BUN 46 H Creatinine Glucose 136 H POC Glucose 138 H Calcium 8.0 L Phosphorus Magnesium NT-Pro-B Natriuret Pep Total Protein Albumin Lipase Free T4 11/04/18 11/04/18 11/05/18 17:31 23:42 05:23 WBC RBC Hgb Hct MCV MCH MCHC Plt Count Lymph % (Auto) [place] % (Auto) Lymph # [place] # Seg Neutrophils % Seg Neuts % (Manual) Lymphocytes % (Manual) Seg Neutrophils # Seg Neutrophils # Man Lymphocytes # (Manual) POC ABG pH POC ABG pCO2 POC ABG pO2 Sodium Potassium Chloride Carbon Dioxide BUN Creatinine Glucose POC Glucose 139 H 138 H 148 H Calcium Phosphorus Magnesium NT-Pro-B Natriuret Pep Total Protein Albumin Lipase Free T4 11/05/18 11/05/18 11/05/18 05:30 05:30 11:46 WBC 14.2 H RBC 3.12 L Hgb 10.0 L Hct 29.1 L MCV MCH MCHC Plt Count Lymph % (Auto) [place] % (Auto) Lymph # [place] # Seg Neutrophils % Seg Neuts % (Manual) Lymphocytes % (Manual) Seg Neutrophils # Seg Neutrophils # Man Lymphocytes # (Manual) POC ABG pH POC ABG pCO2 POC ABG pO2 Sodium Potassium Chloride Carbon Dioxide 21 L BUN 42 H Creatinine Glucose 125 H POC Glucose 157 H Calcium 7.9 L Phosphorus Magnesium NT-Pro-B Natriuret Pep Total Protein Albumin Lipase Free T4 11/05/18 11/05/18 11/05/18 17:09 20:03 23:43 WBC RBC Hgb Hct MCV MCH MCHC Plt Count Lymph % (Auto) [place] % (Auto) Lymph # [place] # Seg Neutrophils % Seg Neuts % (Manual) Lymphocytes % (Manual) Seg Neutrophils # Seg Neutrophils # Man Lymphocytes # (Manual) POC ABG pH POC ABG pCO2 POC ABG pO2 76 L Sodium Potassium Chloride Carbon Dioxide BUN Creatinine Glucose POC Glucose 142 H 204 H Calcium Phosphorus Magnesium NT-Pro-B Natriuret Pep Total Protein Albumin Lipase Free T4 11/06/18 11/06/18 11/06/18 04:21 12:14 17:17 WBC RBC Hgb Hct MCV MCH MCHC Plt Count Lymph % (Auto) [place] % (Auto) Lymph # [place] # Seg Neutrophils % Seg Neuts % (Manual) Lymphocytes % (Manual) Seg Neutrophils # Seg Neutrophils # Man Lymphocytes # (Manual) POC ABG pH POC ABG pCO2 POC ABG pO2 Sodium 133 L Potassium Chloride Carbon Dioxide 18 L BUN 47 H Creatinine Glucose 187 H POC Glucose 232 H 199 H Calcium 7.8 L Phosphorus 5.30 H D Magnesium 2.50 H NT-Pro-B Natriuret Pep Total Protein Albumin Lipase Free T4 11/06/18 11/06/18 11/07/18 19:46 23:30 00:00 WBC RBC Hgb Hct MCV MCH MCHC Plt Count Lymph % (Auto) [place] % (Auto) Lymph # [place] # Seg Neutrophils % Seg Neuts % (Manual) Lymphocytes % (Manual) Seg Neutrophils # Seg Neutrophils # Man Lymphocytes # (Manual) POC ABG pH 7.317 L POC ABG pCO2 50.3 H POC ABG pO2 58 L 57 L Sodium Potassium Chloride Carbon Dioxide BUN Creatinine Glucose POC Glucose 224 H Calcium Phosphorus Magnesium NT-Pro-B Natriuret Pep Total Protein Albumin Lipase Free T4 11/07/18 11/07/18 11/07/18 04:55 04:55 04:55 WBC 25.2 H RBC 3.64 L Hgb Hct MCV MCH MCHC Plt Count Lymph % (Auto) [place] % (Auto) Lymph # [place] # Seg Neutrophils % Seg Neuts % (Manual) Lymphocytes % (Manual) Seg Neutrophils # Seg Neutrophils # Man Lymphocytes # (Manual) POC ABG pH POC ABG pCO2 POC ABG pO2 Sodium Potassium Chloride Carbon Dioxide BUN 54 H Creatinine Glucose 270 H POC Glucose Calcium 7.9 L Phosphorus 5.00 H Magnesium NT-Pro-B Natriuret Pep 4507 H Total Protein Albumin Lipase Free T4 11/07/18 11/07/18 11/07/18 05:46 08:08 11:52 WBC RBC Hgb Hct MCV MCH MCHC Plt Count Lymph % (Auto) [place] % (Auto) Lymph # [place] # Seg Neutrophils % Seg Neuts % (Manual) Lymphocytes % (Manual) Seg Neutrophils # Seg Neutrophils # Man Lymphocytes # (Manual) POC ABG pH POC ABG pCO2 47.6 H POC ABG pO2 106 H Sodium Potassium Chloride Carbon Dioxide BUN Creatinine Glucose POC Glucose 266 H 323 H Calcium Phosphorus Magnesium NT-Pro-B Natriuret Pep Total Protein Albumin Lipase Free T4 11/07/18 11/07/18 11/07/18 12:29 17:57 23:48 WBC RBC Hgb Hct MCV MCH MCHC Plt Count Lymph % (Auto) [place] % (Auto) Lymph # [place] # Seg Neutrophils % Seg Neuts % (Manual) Lymphocytes % (Manual) Seg Neutrophils # Seg Neutrophils # Man Lymphocytes # (Manual) POC ABG pH POC ABG pCO2 POC ABG pO2 Sodium Potassium Chloride Carbon Dioxide BUN Creatinine Glucose POC Glucose 325 H 286 H 231 H Calcium Phosphorus Magnesium NT-Pro-B Natriuret Pep Total Protein Albumin Lipase Free T4 11/08/18 11/08/18 11/08/18 03:58 05:05 05:05 WBC 18.4 H RBC 3.20 L Hgb 10.0 L Hct 29.7 L MCV MCH MCHC Plt Count Lymph % (Auto) [place] % (Auto) Lymph # [place] # Seg Neutrophils % Seg Neuts % (Manual) Lymphocytes % (Manual) Seg Neutrophils # Seg Neutrophils # Man Lymphocytes # (Manual) POC ABG pH 7.524 H POC ABG pCO2 34.3 L POC ABG pO2 Sodium Potassium Chloride Carbon Dioxide BUN 61 H Creatinine Glucose 253 H POC Glucose Calcium 7.6 L Phosphorus Magnesium NT-Pro-B Natriuret Pep Total Protein Albumin Lipase Free T4 11/08/18 11/08/18 11/08/18 05:28 11:28 18:21 WBC RBC Hgb Hct MCV MCH MCHC Plt Count Lymph % (Auto) [place] % (Auto) Lymph # [place] # Seg Neutrophils % Seg Neuts % (Manual) Lymphocytes % (Manual) Seg Neutrophils # Seg Neutrophils # Man Lymphocytes # (Manual) POC ABG pH POC ABG pCO2 POC ABG pO2 Sodium Potassium Chloride Carbon Dioxide BUN Creatinine Glucose POC Glucose 295 H 253 H 225 H Calcium Phosphorus Magnesium NT-Pro-B Natriuret Pep Total Protein Albumin Lipase Free T4 11/09/18 11/09/18 11/09/18 00:57 04:06 06:06 WBC RBC Hgb Hct MCV MCH MCHC Plt Count Lymph % (Auto) [place] % (Auto) Lymph # [place] # Seg Neutrophils % Seg Neuts % (Manual) Lymphocytes % (Manual) Seg Neutrophils # Seg Neutrophils # Man Lymphocytes # (Manual) POC ABG pH 7.509 H POC ABG pCO2 POC ABG pO2 Sodium Potassium Chloride Carbon Dioxide BUN Creatinine Glucose POC Glucose 218 H 199 H Calcium Phosphorus Magnesium NT-Pro-B Natriuret Pep Total Protein Albumin Lipase Free T4 11/09/18 11/09/18 11/09/18 06:51 06:51 12:07 WBC 13.5 H RBC 2.97 L Hgb 9.3 L Hct 27.6 L MCV MCH MCHC Plt Count Lymph % (Auto) [place] % (Auto) Lymph # [place] # Seg Neutrophils % Seg Neuts % (Manual) Lymphocytes % (Manual) Seg Neutrophils # Seg Neutrophils # Man Lymphocytes # (Manual) POC ABG pH POC ABG pCO2 POC ABG pO2 Sodium Potassium Chloride 96.5 L Carbon Dioxide 32 H BUN 58 H Creatinine Glucose 191 H POC Glucose 212 H Calcium 7.5 L Phosphorus Magnesium NT-Pro-B Natriuret Pep Total Protein Albumin Lipase Free T4 11/09/18 11/10/18 11/10/18 18:29 00:09 04:21 WBC RBC Hgb Hct MCV MCH MCHC Plt Count Lymph % (Auto) [place] % (Auto) Lymph # [place] # Seg Neutrophils % Seg Neuts % (Manual) Lymphocytes % (Manual) Seg Neutrophils # Seg Neutrophils # Man Lymphocytes # (Manual) POC ABG pH 7.467 H POC ABG pCO2 49.9 H POC ABG pO2 76 L Sodium Potassium Chloride Carbon Dioxide BUN Creatinine Glucose POC Glucose 192 H 214 H Calcium Phosphorus Magnesium NT-Pro-B Natriuret Pep Total Protein Albumin Lipase Free T4 11/10/18 11/10/18 11/10/18 04:39 04:39 06:05 WBC 14.3 H RBC 3.09 L Hgb 9.7 L Hct 28.9 L MCV MCH MCHC Plt Count Lymph % (Auto) [place] % (Auto) Lymph # [place] # Seg Neutrophils % Seg Neuts % (Manual) Lymphocytes % (Manual) Seg Neutrophils # Seg Neutrophils # Man Lymphocytes # (Manual) POC ABG pH POC ABG pCO2 POC ABG pO2 Sodium Potassium Chloride 97.5 L Carbon Dioxide 31 H BUN 53 H Creatinine Glucose 196 H POC Glucose 202 H Calcium 7.7 L Phosphorus Magnesium NT-Pro-B Natriuret Pep Total Protein Albumin Lipase Free T4 Allied health notes reviewed: nursing
[2018-11-10] MEDS: SUBLIMAZE IV PRN ×3 (09:34→20:08)
[2018-11-10] MEDS: MYCAMINE 100 MG in NACL 0.9% 100 ML IV SCH (09:35)
[2018-11-10] MEDS: PROTONIX IV SCH (09:35)
[2018-11-10] MEDS: LOPRESSOR IV SCH ×3 (09:35→21:00)
[2018-11-10] MEDS: NITRO-BID 2% TP SCH (09:47)
--- NOTE | 2018-11-10 09:56 | Progress Note ---
Assessment and Plan Assessment and plan: Patient is 73-year-old female with history of hypertension, lupus, fibromyalgia, COPD, opioid dependence (follows Dr. Felix Muñiz at pain clinic) who presented to [facility] ED with complaints of intractable nausea, vomiting, diarrhea for 3 days. On initial presentation to the ED she was found to be tachycardiac with heart rate 113 BPM, leukocytosis with WBC 11.5, elevated BUN/Cr 51/2.1. Patient has history of COPD and at baseline does not require home oxygen use. She was admitted to [facility]. GI was consulted, she was evaluated. CT Abdomen revealed partial SBO versus ileus therefore surgeon consulted. Also patient became more short of breath, placed on BIPAP with no improvement then intubated 10/26/18 for acute resp failure and transferred to ICU. Obstruction series completed on 10/27 which showed improved but small bowel and stomach dilatation. Follow-up series on 10/28 showed no significant change since previous study. NG tube was removed due to patient not tolerating/refusing. Patient was placed back on BiPAP but decompensated on the night of 10/28/18 and had to be reintubated. Patient currently on mechanical ventilation. Patient has had further complications now with findings consistent with contained gastric perforation on repeat CT scan 10/30, managed conservatively. She was extubated 11/05, re-intubated 11/07/18. This is 3rd intubation so Tracheostomy has been recommended and being planned. No PEG yet, for at least 2 weeks because of recent gastric perf oration. Gastric perforation. Repeat CT scan on 10/30 revealed pSBO resolved, no evidence for bowel ischemia. Small contained gastric perforation at lesser curve. No gross free air or contrast extravasation. Surgery recommends conservative management with continuing NGT, NPO, gentle IVF and when necessary pain control. Will reimage stomach when pulm status is more stable to make sure there is no leak. Sepsis/fungemia. Continue antibiotics/antifungals and follow cultures. ID following. May need to switch off PICC to other access, hold IV nutrition ? Thrombocytopenia. resolved Etiology likely secondary to sepsis. Hematology following. Bilateral upper lobe/aspiration pneumonia. Sputum culture positive for Escherichia coli and stenotrophomonas. Continue antibiotics per ID. Partial small bowel obstruction. Continue NGT per surgery. Acute exacerbation COPD. Scheduled Duo Nebs and Pulmicort; albuterol when necessary Acute hypoxic respiratory failure. Patient was reintubated on 10/28/18, Etiology secondary to COPD/pneumonia/sepsis. Extubated 11/05, re-intubated 11/07 He has been intubated 3 times now and trach has been recommended. Surgeon discussed with family. No PEG yet be Toxic metabolic encephalopathy Hypokalemia. Replete potassium. Hyponatremia. Repeat in am Hypertension. IV hydralazine when necessary Lupus. Supportive care Fibromyalgia. supportive care History of opioid dependence ADWOA due to vasomotor nephropathy, now resolved Full code status The high probability of a clinically significant, sudden or life threatening deterioration of the [GI and respiratory] system(s) required my full and direct attention, intervention and personal management. The aggregate critical care time was [35] minutes. This time is in addition to time spent performing reported procedures but includes the following: [x] Data Review and interpretation [x] Patient assessment and monitoring of vital signs [x] Documentation [x] Medication orders and management History Interval history: Shortness of breath, resp distress, re-intubated 11/07 for 3rd time no fever Hospitalist Physical - Physical exam Narrative exam: Gen: Not in distress, intubated HEENT: Normocephalic, atraumatic, NG tube Neck: supple, no JVD Heart: S1 and S2 reg, no murmurs, rubs or gallop Lungs: Clear bilat, decreased breath sounds bilat. no wheeze Abd: soft, non tender, no rebound tenderness, non distended, BS present Ext: No edema, no clubbing, no cyanosis, Neuro: Intubated, sedated,awake, follows commands - Constitutional Vitals: Temp Pulse Resp BP Pulse Ox 98.3 F 138 H 24 134/44 99 11/10/18 08:00 11/10/18 09:35 11/10/18 09:02 11/10/18 09:35 11/10/18 08:29 General appearance: Present: other (intubated, opens eyes to commands) Results - Labs CBC & Chem 7: 11/10/18 04:39 11/10/18 04:39 Labs: Laboratory Last Values WBC 14.3 K/mm3 (4.5-11.0) H 11/10/18 04:39 RBC 3.09 M/mm3 (3.65-5.03) L 11/10/18 04:39 Hgb 9.7 gm/dl (10.1-14.3) L 11/10/18 04:39 Hct 28.9 % (30.3-42.9) L 11/10/18 04:39 MCV 93 fl (79-97) 11/10/18 04:39 MCH 31 pg (28-32) 11/10/18 04:39 MCHC 34 % (30-34) 11/10/18 04:39 RDW 14.6 % (13.2-15.2) 11/10/18 04:39 Plt Count 162 K/mm3 (140-440) 11/10/18 04:39 Lymph % (Auto) 10.2 % (13.4-35.0) L 10/23/18 04:32 [place] % (Auto) 14.7 % (0.0-7.3) H 10/23/18 04:32 Eos % (Auto) 0.1 % (0.0-4.3) 10/23/18 04:32 Baso % (Auto) 0.1 % (0.0-1.8) 10/23/18 04:32 Lymph # 0.7 K/mm3 (1.2-5.4) L 10/23/18 04:32 [place] # 1.0 K/mm3 (0.0-0.8) H 10/23/18 04:32 Eos # 0.0 K/mm3 (0.0-0.4) 10/23/18 04:32 Baso # 0.0 K/mm3 (0.0-0.1) 10/23/18 04:32 Add Manual Diff Complete 11/04/18 09:39 Total Counted 100 11/04/18 09:39 Seg Neutrophils % Scraper Operator 11/04/18 09:39 Seg Neuts % (Manual) 98.0 % (40.0-70.0) H 11/04/18 09:39 0 % 11/04/18 09:39 1.0 % (13.4-35.0) L 11/04/18 09:39 Reactive Lymphs % (Man) 0 % 11/04/18 09:39 0 % (0.0-7.3) 11/04/18 09:39 1.0 % (0.0-4.3) 11/04/18 09:39 0 % (0.0-1.8) 11/04/18 09:39 0 % 11/04/18 09:39 0 % 11/04/18 09:39 0 % 11/04/18 09:39 0 % 11/04/18 09:39 Nucleated RBC % Not Reportable 11/04/18 09:39 Seg Neutrophils # 5.2 K/mm3 (1.8-7.7) 10/23/18 04:32 Seg Neutrophils # Man 14.9 K/mm3 (1.8-7.7) H 11/04/18 09:39 Band Neutrophils # 0.0 K/mm3 11/04/18 09:39 0.2 K/mm3 (1.2-5.4) L 11/04/18 09:39 Abs React Lymphs (Man) 0.0 K/mm3 11/04/18 09:39 0.0 K/mm3 (0.0-0.8) 11/04/18 09:39 0.2 K/mm3 (0.0-0.4) 11/04/18 09:39 0.0 K/mm3 (0.0-0.1) 11/04/18 09:39 0.0 K/mm3 11/04/18 09:39 0.0 K/mm3 11/04/18 09:39 0.0 K/mm3 11/04/18 09:39 Blast Cells # 0.0 K/mm3 11/04/18 09:39 WBC Morphology Not Reportable 11/04/18 09:39 Hypersegmented Neuts Not Reportable 11/04/18 09:39 Hyposegmented Neuts Not Reportable 11/04/18 09:39 Hypogranular Neuts Not Reportable 11/04/18 09:39 Not Reportable 11/04/18 09:39 Not Reportable 11/04/18 09:39 Not Reportable 11/04/18 09:39 Not Reportable 11/04/18 09:39 Not Reportable 11/04/18 09:39 Not Reportable 11/04/18 09:39 Consistent w auto 11/04/18 09:39 Not Reportable 11/04/18 09:39 Plt Clumps, EDTA Not Reportable 11/04/18 09:39 Not Reportable 11/04/18 09:39 Not Reportable 11/04/18 09:39 Not Reportable 11/04/18 09:39 Plt Morphology Comment Not Reportable 11/04/18 09:39 RBC Morphology Normal 11/04/18 09:39 Dimorphic RBCs Not Reportable 11/04/18 09:39 Not Reportable 11/04/18 09:39 Not Reportable 11/04/18 09:39 Not Reportable 11/04/18 09:39 Not Reportable 11/04/18 09:39 Not Reportable 11/04/18 09:39 Not Reportable 11/04/18 09:39 Not Reportable 11/04/18 09:39 Not Reportable 11/04/18 09:39 Not Reportable 11/04/18 09:39 Not Reportable 11/04/18 09:39 Not Reportable 11/04/18 09:39 Not Reportable 11/04/18 09:39 Not Reportable 11/04/18 09:39 Not Reportable 11/04/18 09:39 Not Reportable 11/04/18 09:39 Not Reportable 11/04/18 09:39 Not Reportable 11/04/18 09:39 Not Reportable 11/04/18 09:39 Not Reportable 11/04/18 09:39 Acanthocytes (Spur) Not Reportable 11/04/18 09:39 Rouleaux Not Reportable 11/04/18 09:39 Not Reportable 11/04/18 09:39 Not Reportable 11/04/18 09:39 Not Reportable 11/04/18 09:39 Not Reportable 11/04/18 09:39 Hem Pathologist Commnt No 11/04/18 09:39 Heparin Anti-Xa, Unfract Negative (Negative) 10/30/18 13:58 POC ABG pH 7.467 (7.35-7.45) H 11/10/18 04:21 POC ABG pCO2 49.9 (35-45) H 11/10/18 04:21 POC ABG pO2 76 (80-105) L 11/10/18 04:21 POC ABG HCO3 36.1 (22-26 mml/L) 11/10/18 04:21 POC ABG Total CO2 38 (23-27mmol/L) 11/10/18 04:21 POC ABG O2 Sat 96 11/10/18 04:21 POC ABG Base Excess 12 ((-2) - (+3)mmol/L) 11/10/18 04:21 35 % 11/10/18 04:21 Sodium 139 mmol/L (137-145) 11/10/18 04:39 Potassium 3.9 mmol/L (3.6-5.0) 11/10/18 04:39 Chloride 97.5 mmol/L (98-107) L 11/10/18 04:39 Carbon Dioxide 31 mmol/L (22-30) H 11/10/18 04:39 14 mmol/L 11/10/18 04:39 BUN 53 mg/dL (7-17) H 11/10/18 04:39 0.7 mg/dL (0.7-1.2) 11/10/18 04:39 Estimated GFR > 60 ml/min 11/10/18 04:39 76 % 11/10/18 04:39 Glucose 196 mg/dL (65-100) H 11/10/18 04:39 POC Glucose 202 (70-105) H 11/10/18 06:05 Lactic Acid 1.60 mmol/L (0.7-2.0) 10/26/18 15:03 Calcium 7.7 mg/dL (8.4-10.2) L 11/10/18 04:39 Phosphorus 3.30 mg/dL (2.5-4.5) D 11/10/18 04:39 Magnesium 2.00 mg/dL (1.7-2.3) 11/10/18 04:39 0.30 mg/dL (0.1-1.2) 11/03/18 11:30 AST 14 units/L (5-40) 11/03/18 11:30 ALT 17 units/L (7-56) 11/03/18 11:30 51 units/L (35-129) 11/03/18 11:30 NT-Pro-B Natriuret Pep 4507 pg/mL (0-900) H 11/07/18 04:55 4.2 g/dL (6.3-8.2) L 11/03/18 11:30 1.2 g/dL (3.9-5) L 11/03/18 11:30 0.4 % 11/03/18 11:30 Triglycerides 132 mg/dL (2-149) 11/01/18 06:40 10 units/L (13-60) L 10/22/18 15:54 See scanned result 10/30/18 13:58 TSH 3.150 mlU/mL (0.270-4.200) 10/31/18 17:00 Free T4 0.49 ng/dL (0.76-1.46) L 10/31/18 17:00 Dulce (Yellow) 10/22/18 19:10 Clear (Clear) 10/22/18 19:10 5.0 (5.0-7.0) 10/22/18 19:10 Ur Specific [place] 1.018 (1.003-1.030) 10/22/18 19:10 30 mg/dl mg/dL (Negative) 10/22/18 19:10 Neg mg/dL (Negative) 10/22/18 19:10 Tr mg/dL (Negative) 10/22/18 19:10 Neg (Negative) 10/22/18 19:10 Neg (Negative) 10/22/18 19:10 Neg (Negative) 10/22/18 19:10 < 2.0 mg/dL (<2.0) 10/22/18 19:10 Ur Leukocyte Esterase Neg (Negative) 10/22/18 19:10 1.0 /HPF (0.0-6.0) 10/22/18 19:10 3.0 /HPF (0.0-6.0) 10/22/18 19:10 Heparin-induced Plt Ab Negative (Negative) 10/30/18 13:58 UF Heparin High Dose 0 % Release 10/30/18 13:58 KIMO UFH Low Dose 0.1 0 % Release 10/30/18 13:58 KIMO UFH Low Dose 0.5 0 % Release 10/30/18 13:58 Active Medications - Current Medications Current Medications: Generic Name Dose Route Start Last Admin Trade Name Freq PRN Reason Stop Dose Admin Acetaminophen 650 mg 10/22/18 20:10 Tylenol PO Q4H PRN Pain MILD(1-3)/Fever >100.5/PORTER Albuterol 2.5 mg 10/22/18 20:14 11/05/18 16:35 Proventil IH 2.5 mg Q4HRT PRN Administration Shortness Of Breath Lipase/Protease/Amylase 1 each 11/05/18 10:13 Gwendolyn Simpson 10,500 Unit FEEDTUBE PRN PRN For Clogged Feeding Tube Arformoterol Tartrate 15 mcg 11/05/18 20:00 11/10/18 08:37 Brovana Nebu IH 15 mcg Q12HRT RICK Administration Budesonide 0.5 mg 10/23/18 08:00 11/10/18 08:37 Pulmicort IH 0.5 mg Q12HRT RICK Administration Dextrose 50 ml 10/26/18 23:40 10/27/18 00:20 D50w (25gm) Syringe IV 50 ml PRN PRN Administration Hypoglycemia Enoxaparin Sodium 40 mg 11/05/18 22:00 11/09/18 21:18 Lovenox SUB-Q 40 mg QDAY@2200 [facility] Administration Fentanyl 50 mcg 11/08/18 15:00 11/10/18 09:34 Sublimaze IV 50 mcg Q2H PRN Administration pain, severe (7-10) Hydralazine HCl 10 mg 10/22/18 21:41 11/07/18 00:04 Apresoline IV 10 mg Q4HR PRN Administration Blood Pressure Hydrophilic Ointment 1 applic 11/07/18 09:14 Vaseline Lip Therapy TP Q2HR PRN Dry Lips Micafungin Sodium 100 mg/ 100 mls @ 100 mls/hr 11/02/18 10:00 11/10/18 09:35 Sodium Chloride IV 100 mls/hr QDAY [facility] Administration Protocol Amino Acids/Electrolytes/Dextrose 2,400 mls @ 100 mls/hr 11/09/18 20:00 11/09/18 19:56 Tpn Adult IV 11/10/18 19:59 100 mls/hr DAILY@2000 [facility] Administration Protocol Insulin Human Isoph/Insulin Regular 8 unit 11/08/18 08:00 11/10/18 09:35 Humulin 70/30 SUB-Q 11/10/18 12:00 8 unit BIDDIAB RICK Administration Insulin Human Isoph/Insulin Regular 12 unit 11/10/18 22:00 Humulin 70/30 SUB-Q BID [facility] Insulin Human Lispro 0 unit 10/29/18 12:00 11/10/18 08:35 Humalog SUB-Q Not Given Q6HR [facility] Protocol Lorazepam 1 mg 11/06/18 11:00 11/10/18 06:14 Ativan IV 1 mg Q6H PRN Administration Anxiety Methylprednisolone Sodium Succinate 60 mg 11/09/18 07:00 11/10/18 06:15 Solu-Medrol IV 60 mg Q8HR RICK Administration Metoprolol Tartrate 5 mg 10/31/18 14:00 11/10/18 09:35 Lopressor IV 5 mg TID RICK Administration Multi-Ingred Cream/Lotion/Oil/Oint 1 applic 11/07/18 09:14 Artificial Tears Ophth Oint OU Q4HR PRN Dry Eye(s) Ondansetron HCl 4 mg 10/24/18 10:05 10/25/18 17:26 Zofran IV 4 mg Q6H PRN Administration Nausea And Vomiting Oxycodone/Acetaminophen 1 tab 11/05/18 11:16 11/10/18 00:23 Percocet 5/325 PO 1 tab Q6H PRN Administration Pain, Moderate (4-6) Pantoprazole Sodium 40 mg 11/05/18 10:00 11/10/18 09:35 Protonix IV 40 mg DAILY RICK Administration Phenol 1 spray 10/28/18 10:16 Chloraseptic MM PRN PRN Sore Throat Promethazine HCl 25 mg 10/22/18 20:10 10/22/18 21:21 Phenergan ND 25 mg Q6H PRN Administration Nausea And Vomiting Simple Syrup 15 ml 11/05/18 10:13 Simple Syrup FEEDTUBE PRN PRN Hypoglycemia Simple Syrup 30 ml 11/05/18 10:13 Simple Syrup FEEDTUBE PRN PRN Hypoglycemia Sodium Bicarbonate 325 mg 11/05/18 10:13 Sodium Bicarbonate FEEDTUBE PRN PRN For Clogged Feeding Tube Sodium Chloride 10 ml 10/22/18 22:00 11/10/18 09:36 Sodium Chloride Flush Syringe 10 Ml IV 10 ml BID RICK Administration Sodium Chloride 10 ml 10/22/18 20:10 11/09/18 14:29 Sodium Chloride Flush Syringe 10 Ml IV 10 ml PRN PRN Administration LINE FLUSH Nutrition/Malnutrition Assess - Dietary Evaluation Nutrition/Malnutrition Findings: Nutrition Notes Start: 10/23/18 17:03 Freq: Status: Active Protocol: Document 11/09/18 13:51 RM (Rec: 11/09/18 13:58 RM [id number]) Nutrition Notes Initial or Follow up Reassessment Current Diagnosis COPD,Sepsis,Hypertension Other Pertinent Diagnosis Gastric peforation, partial SBO, lupus, opiod dependence, SIRS Current Diet PPN at 100 ml/hr + Vital 1.2 at 10 ml/hr Labs/Tests Cl 96.5 P 2.7 (trending down) Pertinent Medications Reviewed Height 5 ft 3 in Weight 73.8 kg [place] Body Weight (kg) 52.27 BMI 28.8 Subjective/Other Information PPN day 10. Observed Vital 1.2 infusing at 10 ml/hr. Pt failed extubation X 2 and needs trach placed per progress note . Percent of energy/protein needs met: 43%/100% Burn Absent Trauma Absent #1 Nutrition Diagnosis Inadequate oral intake Diagnosis Progress(for reassessment Continues documentation) Is patient on ventilator? No Is Patient Ambulatory and/or Out of Bed No REE-([place]-St. Jeor-confined to bed) 1466.580 Kcal/Kg value to use for calculation 25 Approximate Energy Requirements Using 1845 kcal/Kg Calculation Used for Recommendations Kcal/kg Additional Notes Protein needs are 58-96g (1.2- 2g/kg) Fluid needs are 1ml/kcal Nutrition Intervention Change Diet Order: PPN and TF Nutrition Support: PPN at 100 ml/hr: Cl:Acetate: 50:50, 10 mEq P Kcal 728 Protein (gm) 80 Carbohydrates (gm) 120 Fat (gm) 0 Fluid (mL) 2,400 Fiber (gm) 0 Goal #1 Meet kcal and protein needs as best as possible Goal #2 Tolerate trophic feeds Anticipated Discharge Needs: Unable to determine at this time Follow-Up By: 11/10/18 Additional Comments Follow for labs in AM: BMP, Mg , Phos
--- NOTE | 2018-11-10 11:22 | Progress Note ---
Assessment and Plan Cultures: Blood cultures 10/22/2018 no growth Tracheal asp cultures 10/28/2018: E.coli and Stenotrophomonas. 10/30/2018 blood culture: Ayla glabrata 11/03/2018 fungal blood culture: no growth thus far Assessment: 73 y/o female with history of COPD, hypertension, lupus, fibromyalgia, opioid dependence admitted on 10/22/2018 due to 3-day history of intractable nausea, vomiting, diarrhea: 1) SIRS v/s sepsis: fever and leukocytosis resolved. Etiology most likely aspiration pneumonia +/- intra-abdominal source from contained gastric perforation, now also with Candidemia. 2) Candidemia due to Ayla glabrata: in the setting of TPN and PICC line. PICC removed. Has temporary central line. TTE not optimal quality, will need LAUREN only if repeat fungal blood cultures are positive. Continue IV Micafungin and f/u fungal blood cultures. 3) Acute respiratory failure: pneumonia and fluid overload. Extubated 11/05/2018 and now reintubated 11/07/2018. 4) Presumed aspiration pneumonia v/s HAP: Tracheal asp cultures 10/28/2018 with E.coli and Stenotrophomonas. Stenotrophomonas is a known colonizer in patients with structural lung disease or tracheostomy tubes/ET tubes, not generally considered very virulent. Given her prolonged and complicated hospital stay, will complete a 10 day course of abx. 5) Ileus v/s partial SBO and contained gastric perforation: Gen Surgery follo wing. Planned for conservative management, trickle feeds and TPN. 6) ADWOA: improved. Recommendations: - continue IV Micafungin, D9 to complete 14 days from negative blood cultures until 11/16/[address] [facility] C: [phone] O: [phone] F: [phone] Subjective Date of service: 11/10/18 Principal diagnosis: low plt - on vent Interval history: Remains sedated, intubated, on the vent. No fever. Objective - Exam Narrative Exam: Physical Exam: Constitutional: sedated, intubated Head, Ears, Nose: Normocephalic, atraumatic. External ears, nose normal Eyes: Conjunctivae/corneas clear. No icterus. No ptosis. Neck: intubated. central line + Oral: intubated Cardiovascular: S1, S2 normal, no murmur heard Respiratory: bilateral rhonchi + GI: Soft, non-tender; bowel sounds hypoactive, No peritoneal signs Musculoskeletal: anasarca + but improving. Skin: No rash or abscess Hem/Lymphatic: No palpable cervical or supraclavicular nodes. No lymphangitis Psych: sedated Neurological: sedated - Constitutional Vitals: Vital Signs Temp Pulse Resp BP Pulse Ox 98.3 F 138 H 24 134/44 99 11/10/18 08:00 11/10/18 09:35 11/10/18 09:02 11/10/18 09:35 11/10/18 08:29 Temperature -Last 24 Hours Temperature 98.3 F Temperature 97.0 F Temperature 97.6 F Temperature 97.8 F Temperature 98.2 F - Labs CBC & Chem 7: 11/10/18 04:39 11/10/18 04:39 Labs: Abnormal lab results 11/09/18 11/09/18 11/10/18 Range/Units 12:07 18:29 00:09 WBC (4.5-11.0) K/mm3 RBC (3.65-5.03) M/mm3 Hgb (10.1-14.3) gm/dl Hct (30.3-42.9) % POC ABG pH (7.35-7.45) POC ABG pCO2 (35-45) POC ABG pO2 (80-105) Chloride (98-107) mmol/L Carbon Dioxide (22-30) mmol/L BUN (7-17) mg/dL Glucose (65-100) mg/dL POC Glucose 212 H 192 H 214 H (70-105) Calcium (8.4-10.2) mg/dL 11/10/18 11/10/18 11/10/18 Range/Units 04:21 04:39 04:39 WBC 14.3 H (4.5-11.0) K/mm3 RBC 3.09 L (3.65-5.03) M/mm3 Hgb 9.7 L (10.1-14.3) gm/dl Hct 28.9 L (30.3-42.9) % POC ABG pH 7.467 H (7.35-7.45) POC ABG pCO2 49.9 H (35-45) POC ABG pO2 76 L (80-105) Chloride 97.5 L (98-107) mmol/L Carbon Dioxide 31 H (22-30) mmol/L BUN 53 H (7-17) mg/dL Glucose 196 H (65-100) mg/dL POC Glucose (70-105) Calcium 7.7 L (8.4-10.2) mg/dL 11/10/18 Range/Units 06:05 WBC (4.5-11.0) K/mm3 RBC (3.65-5.03) M/mm3 Hgb (10.1-14.3) gm/dl Hct (30.3-42.9) % POC ABG pH (7.35-7.45) POC ABG pCO2 (35-45) POC ABG pO2 (80-105) Chloride (98-107) mmol/L Carbon Dioxide (22-30) mmol/L BUN (7-17) mg/dL Glucose (65-100) mg/dL POC Glucose 202 H (70-105) Calcium (8.4-10.2) mg/dL - Imaging and cardiology Chest x-ray: report reviewed, image reviewed (improving airspace opacities, small left effusion.)
--- NOTE | 2018-11-10 11:25 | Progress Note ---
Assessment and Plan Pt remains intubated. She appears to be tolerating trickle tube feeds. Cont present cardiac management. The patient has been seen in conjunction with Dr. Stoner who agrees with the assessment and plan of care. - Patient Problems (1) Atrial tachycardia, paroxysmal Current Visit: Yes Status: Acute (2) Tachy-adama syndrome Current Visit: Yes Status: Acute (3) Acute respiratory failure Current Visit: Yes Status: Acute Qualifiers: Qualified Code(s): J96.01 - Acute respiratory failure with hypoxia (4) Perforated gastric ulcer Current Visit: Yes Status: Acute (5) Intractable nausea and vomiting Current Visit: Yes Status: Acute (6) Partial small bowel obstruction Current Visit: Yes Status: Acute (7) COPD (chronic obstructive pulmonary disease) Current Visit: Yes Status: Chronic (8) History of hypertension Current Visit: Yes Status: Chronic (9) ADWOA (acute kidney injury) Current Visit: Yes Status: Acute (10) Hypokalemia Current Visit: Yes Status: Acute Subjective Date of service: 11/10/18 Principal diagnosis: low plt - on vent Interval history: pt remains intubated, alert, in SR/ST on tele. at bedside. Objective Last Vital Signs Temp 98.3 F 11/10/18 08:00 Pulse 138 H 11/10/18 09:35 Resp 24 11/10/18 09:02 BP 134/44 11/10/18 09:35 Pulse Ox 99 11/10/18 08:29 - Physical Examination General: No Apparent Distress, Other (intubated) HEENT: Positive: EOMI, Normocephaly, Mucus Membranes Moist Neck: Positive: neck supple, trachea midline Cardiac: Positive: Regular Rhythm, S1/S2 Lungs: Positive: Decreased Breath Sounds, Rhonchi Neuro: Positive: Grossly Intact, Other (intubated) Abdomen: Positive: Soft. Negative: Tender Skin: Positive: Clear. Negative: Rash Musculoskeletal: Decreased Range of Motion, Normal Range of Motion Extremities: Present: normal. Absent: edema - Labs and Meds CBC 11/10/18 Range/Units 04:39 WBC 14.3 H (4.5-11.0) K/mm3 RBC 3.09 L (3.65-5.03) M/mm3 Hgb 9.7 L (10.1-14.3) gm/dl Hct 28.9 L (30.3-42.9) % Plt Count 162 (140-440) K/mm3 Comprehensive Metabolic Panel 11/10/18 Range/Units 04:39 Sodium 139 (137-145) mmol/L Potassium 3.9 (3.6-5.0) mmol/L Chloride 97.5 L (98-107) mmol/L Carbon Dioxide 31 H (22-30) mmol/L BUN 53 H (7-17) mg/dL Creatinine 0.7 (0.7-1.2) mg/dL Glucose 196 H (65-100) mg/dL Calcium 7.7 L (8.4-10.2) mg/dL - Imaging and Cardiology EKG: image reviewed Echo: report reviewed (EF 50%, trace TR, minimal pericardial effusion. ) - EKG Sinus rhythms and dysrhythmias: sinus rhythm - Allied health notes Allied health notes reviewed: nursing
--- NOTE | 2018-11-10 14:13 | Event Note ---
Date: 11/10/18 Trach scheduled for 11/13 at 1300.
[2018-11-10] MEDS ORDERED: PANCREAZE DR 10,500 UNIT FEEDTUBE PRN (14:26)
[2018-11-10] MEDS ORDERED: SIMPLE SYRUP FEEDTUBE PRN ×2 (14:26)
[2018-11-10] MEDS ORDERED: SODIUM BICARBONATE FEEDTUBE PRN (14:26)
[2018-11-10] MEDS: TYLENOL PO PRN (14:37)
[2018-11-10] MEDS ORDERED: TPN ADULT 2,400 ML IV SCH (20:00)
[2018-11-10] MEDS: LOVENOX SUB-Q SCH (21:13)
[2018-11-11] MEDS: HumaLOG SUB-Q SCH ×4 (00:35→18:17)
[2018-11-11] MEDS: SODIUM CHLORIDE FLUSH SYRINGE 10 ML IV SCH ×3 (00:36→10:02)
[2018-11-11] MEDS: SUBLIMAZE IV PRN ×5 (01:12→18:17)
--- NOTE | 2018-11-11 03:09 | XRay Report ---
PROCEDURE: XR CHEST 1V AP TECHNIQUE: Chest radiograph single view. HISTORY: follow up respiratory failure COMPARISONS: November 09, 2018 . FINDINGS: Heart: Normal. Mediastinum/Vessels: Normal. Lungs/Pleural space: There is a left lower lobe infiltrate and pleural effusion.. Bony thorax: No acute osseous abnormality. Life support devices: Endotracheal tube is in the distal trachea approximately 2 cm above the rekha. The NG tube is in the stomach. There is a right-sided central venous catheter. The tip is in the sup erior right atrium of the heart. IMPRESSION: The heart size is normal.. There is a left lower lobe infiltrate and pleural effusion.. Endotracheal tube is in the distal trachea approximately 2 cm above the rekha. The NG tube is in the stomach. There is a right-sided central venous catheter. The tip is in the superior right atrium of the heart. This document is electronically signed by Dawit Middleton MD., November 11 2018 03:07:39 AM ET
[2018-11-11] MEDS: ATIVAN IV PRN ×2 (04:45→14:04)
[2018-11-11] MEDS: SOLU-Medrol IV SCH ×2 (05:47→14:00)
[2018-11-11 06:02] LABS: Hemoglobin 9.1 gm/dl (10.1-14.3); Mean Corpuscular HGB Conc 34 % (30-34); Mean Corpuscular Volume 93 fl (79-97); Platelet Count 188 K/mm3 (140-440); Red Blood Count 2.92 M/mm3 (3.65-5.03); Red Cell Distribution Width 14.5 % (13.2-15.2)
[2018-11-11 06:29] LABS: Alanine Aminotransferase 28 units/L (7-56); Albumin 2.1 g/dL (3.9-5); BUN/Creatinine Ratio 94; Blood Urea Nitrogen 47 mg/dL (7-17); Calcium 8.2 mg/dL (8.4-10.2); Hemolysis Index 7
[2018-11-11] MEDS: PERCOCET 5/325 PO PRN ×2 (07:58→16:45)
[2018-11-11] MEDS: LOPRESSOR IV SCH ×2 (07:59→14:00)
[2018-11-11] MEDS ORDERED: POTASSIUM CHLORIDE FEEDTUBE ONE (08:00)
[2018-11-11] MEDS ORDERED: MAGNESIUM SULFATE 2GM/50ML 2 GM/50 ML BAG IV ONE (08:00)
--- NOTE | 2018-11-11 08:09 | Hem/Onc Progress Note ---
Assessment and Plan 1. h/o Thrombocytopenia, likely medication, pts medical status related. 2. History of colon surgery in the past, details not clear. 3. History of bowel issues. Seen by surgical team. - pSBO and contained gastric perforation 4. h/o TPN. 5. h/o Ayla, ID following. 6. Chronic obstructive pulmonary disease. 7. Hypertension. 8. History of lupus. 9. Aspiration pneumonia. 10. The patient was on ventilation. 11. Renal impairment. 11/11 pt on vent - pulm following plan for trach on 11/13 plt better d/w and RN - Patient Problems (1) Thrombocytopenia Current Visit: Yes Status: Acute Subjective Date of service: 11/11/18 Principal diagnosis: anemia Interval history: on vent - awake Objective - Constitutional Vitals: Last Vital Signs Temp 97.6 F 11/11/18 03:42 Pulse 99 H 11/11/18 07:59 Resp 18 11/11/18 06:00 BP 130/42 11/11/18 07:59 Pulse Ox 98 11/11/18 06:00 Pain Intensity (0-10): denies any pain General appearance: no acute distress Performance status: 4-completely disabled - EENT Eyes: EOM intact ENT: hearing intact Lymph node exam: negative cervical - Respiratory Respiratory effort: Positive: normal Respiratory: bilateral: CTA (anteriorly) - Cardiovascular Heart Sounds: Present: S1 & S2 Extremities: normal temperature - Gastrointestinal General gastrointestinal: Present: soft, non-tender Rectal Exam: deferred - Genitourinary Female genitourinary: Present: deferred - Integumentary Integumentary: warm - Musculoskeletal Musculoskeletal: generalized weakness - Neurologic Neurologic: moves all extremities - Labs Lab Results: Laboratory Results - last 24 hr 11/10/18 11/10/18 11/11/18 12:32 17:16 00:06 WBC RBC Hgb Hct MCV MCH MCHC RDW Plt Count POC ABG pH POC ABG pCO2 POC ABG pO2 POC ABG HCO3 POC ABG Total CO2 POC ABG O2 Sat POC ABG Base Excess FiO2 Sodium Potassium Chloride Carbon Dioxide Anion Gap BUN Creatinine Estimated GFR BUN/Creatinine Ratio Glucose POC Glucose 197 H 200 H 177 H Calcium Phosphorus Magnesium Total Bilirubin AST ALT Alkaline Phosphatase Total Protein Albumin Albumin/Globulin Ratio 11/11/18 11/11/18 11/11/18 04:43 05:24 05:50 WBC 14.1 H RBC 2.92 L Hgb 9.1 L Hct 27.0 L MCV 93 MCH 31 MCHC 34 RDW 14.5 Plt Count 188 POC ABG pH 7.447 POC ABG pCO2 50.1 H POC ABG pO2 100 POC ABG HCO3 34.5 POC ABG Total CO2 36 POC ABG O2 Sat 98 POC ABG Base Excess 10 FiO2 35 Sodium Potassium Chloride Carbon Dioxide Anion Gap BUN Creatinine Estimated GFR BUN/Creatinine Ratio Glucose POC Glucose 199 H Calcium Phosphorus Magnesium Total Bilirubin AST ALT Alkaline Phosphatase Total Protein Albumin Albumin/Globulin Ratio 11/11/18 05:50 WBC RBC Hgb Hct MCV MCH MCHC RDW Plt Count POC ABG pH POC ABG pCO2 POC ABG pO2 POC ABG HCO3 POC ABG Total CO2 POC ABG O2 Sat POC ABG Base Excess FiO2 Sodium 142 Potassium 3.5 L Chloride 99.0 Carbon Dioxide 34 H Anion Gap 13 BUN 47 H Creatinine 0.5 L Estimated GFR > 60 BUN/Creatinine Ratio 94 Glucose 169 H POC Glucose Calcium 8.2 L Phosphorus 2.80 Magnesium 1.80 Total Bilirubin 0.30 AST 26 ALT 28 Alkaline Phosphatase 142 H Total Protein 4.4 L Albumin 2.1 L Albumin/Globulin Ratio 0.9 Medications & Allergies - Medications Allergies/Adverse Reactions: Allergies Sulfa (Sulfonamide Antibiotics) Allergy (Intermediate, Verified 10/22/18 16:30) Rash metoclopramide HCl [From Reglan] Allergy (Verified 10/22/18 16:30) Dizziness prochlorperazine [From Compazine] Allergy (Verified 10/22/18 16:30) NECK STIFFNESS Home Medications: Home Medications Medication Instructions Recorded Confirmed Last Taken Type Ondansetron 4 mg PO Q6HR PRN 12/05/16 10/22/18 10/29/17 History Propranolol HCl [Propranolol HCl 60 mg PO DAILY 12/05/16 10/22/18 10/30/17 22:00 History ER] QUEtiapine [SEROquel] 300 mg PO DAILY 12/05/16 10/22/18 10/30/17 History Lasix TAB 40 mg PO PRN PRN 12/07/16 10/22/18 10/24/17 History Percocet 10/325 mg 1 tab PO PRN PRN 12/07/16 10/22/18 10/30/17 History Albuterol Sulfate [Albuterol 0.63% 0.63 mg IH TID PRN 10/22/17 10/22/18 10/29/17 History NEBS] Active Medications: Generic Name Dose Route Start Last Admin Trade Name Freq PRN Reason Stop Dose Admin Acetaminophen 650 mg 10/22/18 20:10 11/10/18 14:37 Tylenol PO 650 mg Q4H PRN Administration Pain MILD(1-3)/Fever >100.5/PORTER Albuterol 2.5 mg 10/22/18 20:14 11/05/18 16:35 Proventil IH 2.5 mg Q4HRT PRN Administration Shortness Of Breath Lipase/Protease/Amylase 1 each 11/05/18 10:13 Pancremaranda Simpson 10,500 Unit FEEDTUBE PRN PRN For Clogged Feeding Tube Arformoterol Tartrate 15 mcg 11/05/18 20:00 11/10/18 20:41 Brovana Nebu IH 15 mcg Q12HRT RICK Administration Budesonide 0.5 mg 10/23/18 08:00 11/10/18 20:41 Pulmicort IH 0.5 mg Q12HRT RICK Administration Dextrose 50 ml 10/26/18 23:40 10/27/18 00:20 D50w (25gm) Syringe IV 50 ml PRN PRN Administration Hypoglycemia Enoxaparin Sodium 40 mg 11/05/18 22:00 11/10/18 21:13 Lovenox SUB-Q 40 mg QDAY@2200 RICK Administration Fentanyl 50 mcg 11/08/18 15:00 11/11/18 05:45 Sublimaze IV 50 mcg Q2H PRN Administration pain, severe (7-10) Hydralazine HCl 10 mg 10/22/18 21:41 11/07/18 00:04 Apresoline IV 10 mg Q4HR PRN Administration Blood Pressure Hydrophilic Ointment 1 applic 11/07/18 09:14 Vaseline Lip Therapy TP Q2HR PRN Dry Lips Micafungin Sodium 100 mg/ 100 mls @ 100 mls/hr 11/02/18 10:00 11/10/18 09:35 Sodium Chloride IV 100 mls/hr QDAY RICK Administration Protocol Amino Acids/Electrolytes/Dextrose 2,400 mls @ 100 mls/hr 11/10/18 20:00 11/10/18 20:07 Tpn Adult IV 11/11/18 19:59 100 mls/hr DAILY@2000 [facility] Administration Protocol Magnesium Sulfate 2 gm in 50 mls @ 25 mls/hr 11/11/18 08:00 Magnesium Sulfate 2gm/50ml IV 11/11/18 09:59 ONCE ONE Insulin Human Isoph/Insulin Regular 12 unit 11/10/18 22:00 11/10/18 21:13 Humulin 70/30 SUB-Q 12 unit BID RICK Administration Insulin Human Lispro 0 unit 10/29/18 12:00 11/11/18 05:46 Humalog SUB-Q 2 unit Q6HR [facility] Administration Protocol Lorazepam 1 mg 11/06/18 11:00 11/11/18 04:45 Ativan IV 1 mg Q6H PRN Administration Anxiety Methylprednisolone Sodium Succinate 60 mg 11/09/18 07:00 11/11/18 05:47 Solu-Medrol IV 60 mg Q8HR [facility] Administration Metoprolol Tartrate 5 mg 10/31/18 14:00 11/11/18 07:59 Lopressor IV 5 mg TID [facility] Administration Multi-Ingred Cream/Lotion/Oil/Oint 1 applic 11/07/18 09:14 Artificial Tears Ophth Oint OU Q4HR PRN Dry Eye(s) Ondansetron HCl 4 mg 10/24/18 10:05 10/25/18 17:26 Zofran IV 4 mg Q6H PRN Administration Nausea And Vomiting Oxycodone/Acetaminophen 1 tab 11/05/18 11:16 11/11/18 07:58 Percocet 5/325 PO 1 tab Q6H PRN Administration Pain, Moderate (4-6) Pantoprazole Sodium 40 mg 11/05/18 10:00 11/10/18 09:35 Protonix IV 40 mg DAILY [facility] Administration Phenol 1 spray 10/28/18 10:16 Chloraseptic MM PRN PRN Sore Throat Promethazine HCl 25 mg 10/22/18 20:10 10/22/18 21:21 Phenergan ND 25 mg Q6H PRN Administration Nausea And Vomiting Simple Syrup 15 ml 11/05/18 10:13 Simple Syrup FEEDTUBE PRN PRN Hypoglycemia Simple Syrup 30 ml 11/05/18 10:13 Simple Syrup FEEDTUBE PRN PRN Hypoglycemia Sodium Bicarbonate 325 mg 11/05/18 10:13 Sodium Bicarbonate FEEDTUBE PRN PRN For Clogged Feeding Tube Sodium Chloride 10 ml 10/22/18 22:00 11/11/18 07:58 Sodium Chloride Flush Syringe 10 Ml IV Not Given BID RICK Sodium Chloride 10 ml 10/22/18 20:10 11/09/18 14:29 Sodium Chloride Flush Syringe 10 Ml IV 10 ml PRN PRN Administration LINE FLUSH
[2018-11-11] MEDS: BROVANA NEBU IH SCH ×2 (08:19→20:00)
[2018-11-11] MEDS: PULMICORT IH SCH ×2 (08:19→20:00)
--- NOTE | 2018-11-11 09:26 | Progress Note ---
Assessment and Plan ARF , failure to wean off ,prolonged ventr support. Sepsis/Fungemia. On antibiotics, suspected secondary to PICC line Bilateral upper lobe pneumonia. Only small infiltrate on the left base. Minimal wheezing Partial bowel obstruction, perforation. Improved Compensated respiratory acidosis improved Chronic pain medications, anti-psychotic therapy Thrombocytopenia. Improved PAT, tachybradycardia episodes. Improved when of sleep, sedated Hypertension, COPD. On nebs.mild wheezing Rec Tracheotomy scheduled by surgery. SBT in the morning off sedation, continue minimal sedation as needed for patient comfort Continue nebulizer therapy Plan is to initiate full when he wants tracheotomy is in place. SBT runs a respiratory training every morning in the meantime Long-term placement planning Physical therapy Discussed with patient,spouse and staff in detail. All questions answered. Critical care time was 31 minutes of [id number] evaluation and coordination of care Subjective Date of service: 11/11/18 Principal diagnosis: ARFMV,COPD Interval history: No events overnight. No shortness of breath. Asleep, just got her pain medication Objective Vital Signs - 12hr 11/10/18 11/10/18 11/10/18 21:30 22:00 22:02 Temperature Pulse Rate 89 89 99 H Pulse Rate [ Anterior Bilateral Throughout] Pulse Rate [ 89 From Monitor] Respiratory 20 17 21 Rate Respiratory Rate [Anterior Bilateral Throughout] Blood Pressure 107/40 101/39 101/39 O2 Sat by Pulse 96 97 98 Oximetry 11/10/18 11/10/18 11/10/18 22:30 23:00 23:30 Temperature Pulse Rate 93 H 95 H 100 H Pulse Rate [ Anterior Bilateral Throughout] Pulse Rate [ From Monitor] Respiratory 22 21 20 Rate Respiratory Rate [Anterior Bilateral Throughout] Blood Pressure 113/44 118/43 111/43 O2 Sat by Pulse 97 96 97 Oximetry 11/10/18 11/11/18 11/11/18 23:42 00:00 00:04 Temperature 97.4 F L Pulse Rate 99 H 98 H Pulse Rate [ Anterior Bilateral Throughout] Pulse Rate [ 98 H From Monitor] Respiratory 16 Rate Respiratory Rate [Anterior Bilateral Throughout] Blood Pressure 111/45 111/45 O2 Sat by Pulse 97 98 Oximetry 11/11/18 11/11/18 11/11/18 00:30 01:00 01:30 Temperature Pulse Rate 109 H 117 H 113 H Pulse Rate [ Anterior Bilateral Throughout] Pulse Rate [ From Monitor] Respiratory 21 18 20 Rate Respiratory Rate [Anterior Bilateral Throughout] Blood Pressure 121/46 118/43 118/48 O2 Sat by Pulse 96 97 94 Oximetry 11/11/18 11/11/18 11/11/18 02:00 02:30 03:00 Temperature Pulse Rate 107 H 103 H 113 H Pulse Rate [ Anterior Bilateral Throughout] Pulse Rate [ From Monitor] Respiratory 22 20 17 Rate Respiratory Rate [Anterior Bilateral Throughout] Blood Pressure 109/39 118/40 117/45 O2 Sat by Pulse 97 96 98 Oximetry 11/11/18 11/11/18 11/11/18 03:31 03:42 04:00 Temperature 97.6 F Pulse Rate 123 H Pulse Rate [ Anterior Bilateral Throughout] Pulse Rate [ 143 H From Monitor] Respiratory 20 16 Rate Respiratory Rate [Anterior Bilateral Throughout] Blood Pressure 116/42 O2 Sat by Pulse 96 96 Oximetry 11/11/18 11/11/18 11/11/18 04:01 04:30 04:40 Temperature Pulse Rate 143 H 122 H 144 H Pulse Rate [ Anterior Bilateral Throughout] Pulse Rate [ From Monitor] Respiratory 16 22 Rate Respiratory Rate [Anterior Bilateral Throughout] Blood Pressure 122/39 120/46 120/46 O2 Sat by Pulse 96 95 100 Oximetry 11/11/18 11/11/18 11/11/18 05:00 05:31 06:00 Temperature Pulse Rate 140 H 132 H 122 H Pulse Rate [ Anterior Bilateral Throughout] Pulse Rate [ 122 H From Monitor] Respiratory 24 17 18 Rate Respiratory Rate [Anterior Bilateral Throughout] Blood Pressure 134/38 121/46 117/42 O2 Sat by Pulse 96 98 Oximetry 11/11/18 11/11/18 11/11/18 06:30 07:00 07:31 Temperature Pulse Rate 108 H 130 H 139 H Pulse Rate [ Anterior Bilateral Throughout] Pulse Rate [ From Monitor] Respiratory 20 22 25 H Rate Respiratory Rate [Anterior Bilateral Throughout] Blood Pressure 124/44 121/45 130/42 O2 Sat by Pulse Oximetry 11/11/18 11/11/18 11/11/18 07:59 08:00 08:09 Temperature Pulse Rate 99 H 142 H 99 H Pulse Rate [ Anterior Bilateral Throughout] Pulse Rate [ From Monitor] Respiratory 12 Rate Respiratory Rate [Anterior Bilateral Throughout] Blood Pressure 130/42 114/57 114/57 O2 Sat by Pulse Oximetry 11/11/18 11/11/18 08:19 08:30 Temperature Pulse Rate 104 H Pulse Rate [ 102 H Anterior Bilateral Throughout] Pulse Rate [ From Monitor] Respiratory 22 Rate Respiratory 21 Rate [Anterior Bilateral Throughout] Blood Pressure 111/52 O2 Sat by Pulse Oximetry Constitutional: alert Eyes: non-icteric ENT: other (orally intubated) Neck: supple, no JVD Effort: mildly labored Ascultation: Bilateral: clear, diminished breath sounds (at bases), wheezes (sporadic) Percussion: Bilateral: not dull Cardiovascular: regular rate and rhythm Gastrointestinal: hypoactive bowel sounds, non-tender, non-distended, other Integumentary: normal Extremities: no edema Neurologic: normal mental status, non-focal exam Psychiatric: anxious CBC and BMP: 11/11/18 05:50 11/11/18 05:50 ABG, PT/INR, D-dimer: ABG POC ABG pH 7.447 (7.35-7.45) 11/11/18 04:43 POC ABG pCO2 50.1 (35-45) H 11/11/18 04:43 POC ABG pO2 100 (80-105) 11/11/18 04:43 POC ABG HCO3 34.5 (22-26 mml/L) 11/11/18 04:43 POC ABG Total CO2 36 (23-27mmol/L) 11/11/18 04:43 POC ABG O2 Sat 98 11/11/18 04:43 Abnormal lab findings: Abnormal Labs 10/22/18 10/22/18 10/22/18 15:31 15:54 15:54 WBC 11.5 H RBC 5.35 H Hgb 17.4 H Hct 50.3 H MCV MCH 33 H MCHC 35 H Plt Count Lymph % (Auto) 12.6 L [place] % (Auto) 14.8 H Lymph # [place] # 1.7 H Seg Neutrophils % 72.5 H Seg Neuts % (Manual) Lymphocytes % (Manual) Seg Neutrophils # 8.3 H Seg Neutrophils # Man Lymphocytes # (Manual) POC ABG pH POC ABG pCO2 POC ABG pO2 Sodium 134 L Potassium Chloride 88.1 L Carbon Dioxide BUN 51 H Creatinine 2.1 H Glucose 166 H POC Glucose Calcium Phosphorus Magnesium Alkaline Phosphatase NT-Pro-B Natriuret Pep Total Protein Albumin 3.4 L Lipase 10 L Free T4 05/10/23/18 10/23/18 04:32 04:32 10:53 WBC RBC Hgb Hct MCV MCH MCHC Plt Count Lymph % (Auto) 10.2 L [place] % (Auto) 14.7 H Lymph # 0.7 L [place] # 1.0 H Seg Neutrophils % 74.9 H Seg Neuts % (Manual) Lymphocytes % (Manual) Seg Neutrophils # Seg Neutrophils # Man Lymphocytes # (Manual) POC ABG pH POC ABG pCO2 POC ABG pO2 Sodium Potassium 3.1 L D 3.5 L Chloride Carbon Dioxide BUN 41 H 37 H Creatinine Glucose 111 H 110 H POC Glucose Calcium 8.1 L 8.1 L Phosphorus Magnesium Alkaline Phosphatase NT-Pro-B Natriuret Pep Total Protein Albumin Lipase Free T4 10/24/18 10/24/18 10/25/18 05:34 05:34 04:51 WBC RBC Hgb Hct MCV MCH MCHC Plt Count Lymph % (Auto) [place] % (Auto) Lymph # [place] # Seg Neutrophils % Seg Neuts % (Manual) Lymphocytes % (Manual) Seg Neutrophils # Seg Neutrophils # Man Lymphocytes # (Manual) POC ABG pH POC ABG pCO2 POC ABG pO2 Sodium Potassium 3.2 L 3.1 L Chloride 109.8 H 114.2 H Carbon Dioxide 17 L D BUN 21 H Creatinine Glucose 134 H 171 H POC Glucose Calcium 7.7 L 7.0 L Phosphorus 0.80 L* Magnesium Alkaline Phosphatase NT-Pro-B Natriuret Pep Total Protein Albumin Lipase Free T4 10/25/18 10/26/18 10/26/18 06:07 02:58 04:57 WBC RBC Hgb Hct MCV 99 H MCH 33 H MCHC Plt Count Lymph % (Auto) [place] % (Auto) Lymph # [place] # Seg Neutrophils % Seg Neuts % (Manual) Lymphocytes % (Manual) Seg Neutrophils # Seg Neutrophils # Man Lymphocytes # (Manual) POC ABG pH 7.090 L 7.320 L POC ABG pCO2 65.0 H 32.8 L POC ABG pO2 76 L Sodium Potassium Chloride Carbon Dioxide BUN Creatinine Glucose POC Glucose Calcium Phosphorus Magnesium Alkaline Phosphatase NT-Pro-B Natriuret Pep Total Protein Albumin Lipase Free T4 10/26/18 10/26/18 10/26/18 06:03 06:03 11:52 WBC 23.8 H RBC Hgb 15.4 H Hct 46.1 H D MCV MCH MCHC Plt Count Lymph % (Auto) [place] % (Auto) Lymph # [place] # Seg Neutrophils % Seg Neuts % (Manual) Lymphocytes % (Manual) Seg Neutrophils # Seg Neutrophils # Man Lymphocytes # (Manual) POC ABG pH POC ABG pCO2 POC ABG pO2 Sodium Potassium Chloride 109.5 H Carbon Dioxide 18 L BUN Creatinine Glucose 128 H POC Glucose 117 H Calcium 8.3 L D Phosphorus Magnesium Alkaline Phosphatase NT-Pro-B Natriuret Pep Total Protein Albumin Lipase Free T4 10/26/18 10/26/18 10/26/18 13:54 17:10 17:32 WBC RBC Hgb Hct MCV MCH MCHC Plt Count Lymph % (Auto) [place] % (Auto) Lymph # [place] # Seg Neutrophils % Seg Neuts % (Manual) Lymphocytes % (Manual) Seg Neutrophils # Seg Neutrophils # Man Lymphocytes # (Manual) POC ABG pH 7.215 L POC ABG pCO2 31.8 L POC ABG pO2 69 L 204 H Sodium Potassium 3.0 L D Chloride 114.5 H Carbon Dioxide 21 L BUN Creatinine Glucose POC Glucose Calcium 7.6 L Phosphorus Magnesium 1.40 L Alkaline Phosphatase NT-Pro-B Natriuret Pep Total Protein Albumin Lipase Free T4 10/26/18 10/27/18 10/27/18 23:13 00:40 01:09 WBC RBC Hgb Hct MCV MCH MCHC Plt Count Lymph % (Auto) [place] % (Auto) Lymph # [place] # Seg Neutrophils % Seg Neuts % (Manual) Lymphocytes % (Manual) Seg Neutrophils # Seg Neutrophils # Man Lymphocytes # (Manual) POC ABG pH POC ABG pCO2 POC ABG pO2 Sodium Potassium 3.4 L Chloride 115.0 H Carbon Dioxide 14 L D BUN Creatinine Glucose 228 H POC Glucose 48 L 264 H Calcium 7.1 L Phosphorus Magnesium Alkaline Phosphatase NT-Pro-B Natriuret Pep Total Protein Albumin Lipase Free T4 10/27/18 10/27/18 10/27/18 05:00 05:00 05:16 WBC 22.5 H RBC Hgb 14.7 H Hct 44.4 H MCV MCH MCHC Plt Count Lymph % (Auto) [place] % (Auto) Lymph # [place] # Seg Neutrophils % Seg Neuts % (Manual) Lymphocytes % (Manual) Seg Neutrophils # Seg Neutrophils # Man Lymphocytes # (Manual) POC ABG pH 7.304 L POC ABG pCO2 POC ABG pO2 116 H Sodium Potassium Chloride 118.4 H Carbon Dioxide 16 L BUN Creatinine Glucose 123 H POC Glucose Calcium 7.7 L Phosphorus Magnesium 2.60 H Alkaline Phosphatase NT-Pro-B Natriuret Pep Total Protein Albumin Lipase Free T4 10/28/18 10/28/18 10/28/18 04:25 04:25 15:37 WBC 23.5 H RBC Hgb Hct MCV MCH MCHC Plt Count Lymph % (Auto) [place] % (Auto) Lymph # [place] # Seg Neutrophils % Seg Neuts % (Manual) Lymphocytes % (Manual) Seg Neutrophils # Seg Neutrophils # Man Lymphocytes # (Manual) POC ABG pH POC ABG pCO2 POC ABG pO2 Sodium 147 H Potassium Chloride 116.9 H Carbon Dioxide 16 L BUN 23 H Creatinine Glucose POC Glucose 114 H Calcium 8.0 L Phosphorus Magnesium Alkaline Phosphatase NT-Pro-B Natriuret Pep Total Protein Albumin Lipase Free T4 10/28/18 10/28/18 10/28/18 20:33 22:07 23:31 WBC RBC Hgb Hct MCV MCH MCHC Plt Count Lymph % (Auto) [place] % (Auto) Lymph # [place] # Seg Neutrophils % Seg Neuts % (Manual) Lymphocytes % (Manual) Seg Neutrophils # Seg Neutrophils # Man Lymphocytes # (Manual) POC ABG pH 7.202 L 7.235 L POC ABG pCO2 POC ABG pO2 71 L Sodium Potassium Chloride Carbon Dioxide BUN Creatinine Glucose POC Glucose 207 H Calcium Phosphorus Magnesium Alkaline Phosphatase NT-Pro-B Natriuret Pep Total Protein Albumin Lipase Free T4 10/29/18 10/29/18 10/29/18 04:30 04:30 05:26 WBC 21.1 H RBC Hgb Hct MCV MCH MCHC Plt Count Lymph % (Auto) [place] % (Auto) Lymph # [place] # Seg Neutrophils % Seg Neuts % (Manual) 97.0 H Lymphocytes % (Manual) 3.0 L Seg Neutrophils # Seg Neutrophils # Man 20.5 H Lymphocytes # (Manual) 0.6 L POC ABG pH 7.305 L POC ABG pCO2 30.5 L POC ABG pO2 75 L Sodium 147 H Potassium 3.5 L Chloride 120.0 H Carbon Dioxide 17 L BUN 30 H Creatinine Glucose 246 H POC Glucose Calcium 7.9 L Phosphorus Magnesium Alkaline Phosphatase NT-Pro-B Natriuret Pep Total Protein Albumin Lipase Free T4 10/29/18 10/29/18 10/29/18 05:36 11:39 18:00 WBC RBC Hgb Hct MCV MCH MCHC Plt Count Lymph % (Auto) [place] % (Auto) Lymph # [place] # Seg Neutrophils % Seg Neuts % (Manual) Lymphocytes % (Manual) Seg Neutrophils # Seg Neutrophils # Man Lymphocytes # (Manual) POC ABG pH POC ABG pCO2 POC ABG pO2 Sodium Potassium Chloride Carbon Dioxide BUN Creatinine Glucose POC Glucose 204 H 224 H 221 H Calcium Phosphorus Magnesium Alkaline Phosphatase NT-Pro-B Natriuret Pep Total Protein Albumin Lipase Free T4 10/29/18 10/30/18 10/30/18 23:17 05:00 05:00 WBC 21.4 H RBC Hgb Hct MCV MCH MCHC Plt Count 134 L Lymph % (Auto) [place] % (Auto) Lymph # [place] # Seg Neutrophils % Seg Neuts % (Manual) 97.0 H Lymphocytes % (Manual) 3.0 L Seg Neutrophils # Seg Neutrophils # Man 20.8 H Lymphocytes # (Manual) 0.6 L POC ABG pH POC ABG pCO2 POC ABG pO2 Sodium 148 H Potassium 3.1 L Chloride 120.3 H Carbon Dioxide 18 L BUN 31 H Creatinine Glucose 205 H POC Glucose 181 H Calcium 8.0 L Phosphorus Magnesium Alkaline Phosphatase NT-Pro-B Natriuret Pep Total Protein Albumin Lipase Free T4 10/30/18 10/30/18 10/30/18 05:14 05:25 05:26 WBC RBC Hgb Hct MCV MCH MCHC Plt Count Lymph % (Auto) [place] % (Auto) Lymph # [place] # Seg Neutrophils % Seg Neuts % (Manual) Lymphocytes % (Manual) Seg Neutrophils # Seg Neutrophils # Man Lymphocytes # (Manual) POC ABG pH 7.296 L 7.245 L POC ABG pCO2 31.1 L POC ABG pO2 54 L 59 L Sodium Potassium Chloride Carbon Dioxide BUN Creatinine Glucose POC Glucose 199 H Calcium Phosphorus Magnesium Alkaline Phosphatase NT-Pro-B Natriuret Pep Total Protein Albumin Lipase Free T4 10/30/18 10/30/18 10/31/18 13:23 18:25 00:22 WBC RBC Hgb Hct MCV MCH MCHC Plt Count Lymph % (Auto) [place] % (Auto) Lymph # [place] # Seg Neutrophils % Seg Neuts % (Manual) Lymphocytes % (Manual) Seg Neutrophils # Seg Neutrophils # Man Lymphocytes # (Manual) POC ABG pH POC ABG pCO2 POC ABG pO2 Sodium Potassium Chloride Carbon Dioxide BUN Creatinine Glucose POC Glucose 146 H 158 H 162 H Calcium Phosphorus Magnesium Alkaline Phosphatase NT-Pro-B Natriuret Pep Total Protein Albumin Lipase Free T4 10/31/18 10/31/18 10/31/18 04:39 05:14 07:05 WBC RBC Hgb Hct MCV MCH MCHC Plt Count Lymph % (Auto) [place] % (Auto) Lymph # [place] # Seg Neutrophils % Seg Neuts % (Manual) Lymphocytes % (Manual) Seg Neutrophils # Seg Neutrophils # Man Lymphocytes # (Manual) POC ABG pH 7.238 L POC ABG pCO2 POC ABG pO2 Sodium Potassium Chloride 115.8 H Carbon Dioxide 18 L BUN 39 H Creatinine 1.3 H Glucose 167 H POC Glucose 145 H Calcium 7.5 L Phosphorus 1.80 L Magnesium Alkaline Phosphatase NT-Pro-B Natriuret Pep Total Protein Albumin Lipase Free T4 10/31/18 10/31/18 10/31/18 10:43 12:03 17:00 WBC RBC Hgb Hct MCV MCH MCHC Plt Count Lymph % (Auto) [place] % (Auto) Lymph # [place] # Seg Neutrophils % Seg Neuts % (Manual) Lymphocytes % (Manual) Seg Neutrophils # Seg Neutrophils # Man Lymphocytes # (Manual) POC ABG pH 7.304 L POC ABG pCO2 33.3 L POC ABG pO2 Sodium Potassium Chloride Carbon Dioxide BUN Creatinine Glucose POC Glucose 159 H Calcium Phosphorus Magnesium Alkaline Phosphatase NT-Pro-B Natriuret Pep Total Protein Albumin Lipase Free T4 0.49 L 10/31/18 11/01/18 11/01/18 17:00 00:44 05:27 WBC RBC Hgb Hct MCV MCH MCHC Plt Count Lymph % (Auto) [place] % (Auto) Lymph # [place] # Seg Neutrophils % Seg Neuts % (Manual) Lymphocytes % (Manual) Seg Neutrophils # Seg Neutrophils # Man Lymphocytes # (Manual) POC ABG pH 7.248 L POC ABG pCO2 34.8 L POC ABG pO2 135 H Sodium Potassium Chloride Carbon Dioxide BUN Creatinine Glucose POC Glucose 127 H 118 H Calcium Phosphorus Magnesium Alkaline Phosphatase NT-Pro-B Natriuret Pep Total Protein Albumin Lipase Free T4 11/01/18 11/01/18 11/01/18 06:40 06:40 06:53 WBC 18.9 H RBC 3.63 L Hgb Hct MCV MCH MCHC Plt Count 64 L Lymph % (Auto) [place] % (Auto) Lymph # [place] # Seg Neutrophils % Seg Neuts % (Manual) 98.0 H Lymphocytes % (Manual) 1.0 L Seg Neutrophils # Seg Neutrophils # Man 18.5 H Lymphocytes # (Manual) 0.2 L POC ABG pH POC ABG pCO2 POC ABG pO2 Sodium Potassium 3.5 L Chloride 114.2 H Carbon Dioxide 17 L BUN 49 H Creatinine Glucose 107 H POC Glucose 127 H Calcium 7.3 L Phosphorus Magnesium 1.60 L Alkaline Phosphatase NT-Pro-B Natriuret Pep Total Protein Albumin Lipase Free T4 11/01/18 11/01/18 11/01/18 11:49 13:13 17:24 WBC RBC Hgb Hct MCV MCH MCHC Plt Count Lymph % (Auto) [place] % (Auto) Lymph # [place] # Seg Neutrophils % Seg Neuts % (Manual) Lymphocytes % (Manual) Seg Neutrophils # Seg Neutrophils # Man Lymphocytes # (Manual) POC ABG pH POC ABG pCO2 POC ABG pO2 182 H Sodium Potassium Chloride Carbon Dioxide BUN Creatinine Glucose POC Glucose 134 H 111 H Calcium Phosphorus Magnesium Alkaline Phosphatase NT-Pro-B Natriuret Pep Total Protein Albumin Lipase Free T4 11/01/18 11/02/18 11/02/18 23:07 04:32 05:00 WBC RBC Hgb Hct MCV MCH MCHC Plt Count Lymph % (Auto) [place] % (Auto) Lymph # [place] # Seg Neutrophils % Seg Neuts % (Manual) Lymphocytes % (Manual) Seg Neutrophils # Seg Neutrophils # Man Lymphocytes # (Manual) POC ABG pH 7.244 L POC ABG pCO2 33.2 L POC ABG pO2 123 H Sodium Potassium 3.0 L Chloride 114.1 H Carbon Dioxide 15 L BUN 47 H Creatinine Glucose 127 H POC Glucose 123 H Calcium 7.7 L Phosphorus Magnesium Alkaline Phosphatase NT-Pro-B Natriuret Pep Total Protein Albumin Lipase Free T4 11/02/18 11/02/18 11/02/18 05:00 05:29 11:27 WBC RBC Hgb Hct MCV MCH MCHC Plt Count Lymph % (Auto) [place] % (Auto) Lymph # [place] # Seg Neutrophils % Seg Neuts % (Manual) Lymphocytes % (Manual) Seg Neutrophils # Seg Neutrophils # Man Lymphocytes # (Manual) POC ABG pH POC ABG pCO2 POC ABG pO2 Sodium Potassium Chloride Carbon Dioxide BUN Creatinine Glucose POC Glucose 118 H 137 H Calcium Phosphorus Magnesium 1.60 L Alkaline Phosphatase NT-Pro-B Natriuret Pep Total Protein Albumin Lipase Free T4 11/02/18 11/02/18 11/03/18 12:53 23:35 04:14 WBC RBC Hgb Hct MCV MCH MCHC Plt Count Lymph % (Auto) [place] % (Auto) Lymph # [place] # Seg Neutrophils % Seg Neuts % (Manual) Lymphocytes % (Manual) Seg Neutrophils # Seg Neutrophils # Man Lymphocytes # (Manual) POC ABG pH POC ABG pCO2 30.3 L POC ABG pO2 134 H 129 H Sodium Potassium Chloride Carbon Dioxide BUN Creatinine Glucose POC Glucose 115 H Calcium Phosphorus Magnesium Alkaline Phosphatase NT-Pro-B Natriuret Pep Total Protein Albumin Lipase Free T4 11/03/18 11/03/18 11/03/18 05:34 11:30 11:30 WBC 16.4 H RBC 3.50 L Hgb Hct MCV MCH MCHC Plt Count 136 L D Lymph % (Auto) [place] % (Auto) Lymph # [place] # Seg Neutrophils % Seg Neuts % (Manual) 97.0 H Lymphocytes % (Manual) 2.0 L Seg Neutrophils # Seg Neutrophils # Man 15.9 H Lymphocytes # (Manual) 0.3 L POC ABG pH POC ABG pCO2 POC ABG pO2 Sodium Potassium 3.1 L Chloride 110.4 H Carbon Dioxide 17 L BUN 41 H Creatinine Glucose 129 H POC Glucose 116 H Calcium 7.7 L Phosphorus Magnesium 1.60 L Alkaline Phosphatase NT-Pro-B Natriuret Pep Total Protein 4.2 L Albumin 1.2 L Lipase Free T4 11/03/18 11/03/18 11/03/18 12:01 17:35 21:37 WBC RBC Hgb Hct MCV MCH MCHC Plt Count Lymph % (Auto) [place] % (Auto) Lymph # [place] # Seg Neutrophils % Seg Neuts % (Manual) Lymphocytes % (Manual) Seg Neutrophils # Seg Neutrophils # Man Lymphocytes # (Manual) POC ABG pH POC ABG pCO2 POC ABG pO2 Sodium Potassium Chloride Carbon Dioxide BUN Creatinine Glucose POC Glucose 132 H 132 H 126 H Calcium Phosphorus Magnesium Alkaline Phosphatase NT-Pro-B Natriuret Pep Total Protein Albumin Lipase Free T4 11/03/18 11/04/18 11/04/18 23:30 05:14 05:15 WBC RBC Hgb Hct MCV MCH MCHC Plt Count Lymph % (Auto) [place] % (Auto) Lymph # [place] # Seg Neutrophils % Seg Neuts % (Manual) Lymphocytes % (Manual) Seg Neutrophils # Seg Neutrophils # Man Lymphocytes # (Manual) POC ABG pH POC ABG pCO2 30.9 L POC ABG pO2 192 H Sodium Potassium Chloride Carbon Dioxide BUN Creatinine Glucose POC Glucose 115 H 123 H Calcium Phosphorus Magnesium Alkaline Phosphatase NT-Pro-B Natriuret Pep Total Protein Albumin Lipase Free T4 11/04/18 11/04/18 11/04/18 09:39 09:39 11:43 WBC 15.2 H RBC 3.18 L Hgb Hct 29.9 L MCV MCH MCHC Plt Count Lymph % (Auto) [place] % (Auto) Lymph # [place] # Seg Neutrophils % Seg Neuts % (Manual) 98.0 H Lymphocytes % (Manual) 1.0 L Seg Neutrophils # Seg Neutrophils # Man 14.9 H Lymphocytes # (Manual) 0.2 L POC ABG pH POC ABG pCO2 POC ABG pO2 Sodium 135 L D Potassium Chloride 109.5 H Carbon Dioxide 16 L BUN 46 H Creatinine Glucose 136 H POC Glucose 138 H Calcium 8.0 L Phosphorus Magnesium Alkaline Phosphatase NT-Pro-B Natriuret Pep Total Protein Albumin Lipase Free T4 11/04/18 11/04/18 11/05/18 17:31 23:42 05:23 WBC RBC Hgb Hct MCV MCH MCHC Plt Count Lymph % (Auto) [place] % (Auto) Lymph # [place] # Seg Neutrophils % Seg Neuts % (Manual) Lymphocytes % (Manual) Seg Neutrophils # Seg Neutrophils # Man Lymphocytes # (Manual) POC ABG pH POC ABG pCO2 POC ABG pO2 Sodium Potassium Chloride Carbon Dioxide BUN Creatinine Glucose POC Glucose 139 H 138 H 148 H Calcium Phosphorus Magnesium Alkaline Phosphatase NT-Pro-B Natriuret Pep Total Protein Albumin Lipase Free T4 11/05/18 11/05/18 11/05/18 05:30 05:30 11:46 WBC 14.2 H RBC 3.12 L Hgb 10.0 L Hct 29.1 L MCV MCH MCHC Plt Count Lymph % (Auto) [place] % (Auto) Lymph # [place] # Seg Neutrophils % Seg Neuts % (Manual) Lymphocytes % (Manual) Seg Neutrophils # Seg Neutrophils # Man Lymphocytes # (Manual) POC ABG pH POC ABG pCO2 POC ABG pO2 Sodium Potassium Chloride Carbon Dioxide 21 L BUN 42 H Creatinine Glucose 125 H POC Glucose 157 H Calcium 7.9 L Phosphorus Magnesium Alkaline Phosphatase NT-Pro-B Natriuret Pep Total Protein Albumin Lipase Free T4 11/05/18 11/05/18 11/05/18 17:09 20:03 23:43 WBC RBC Hgb Hct MCV MCH MCHC Plt Count Lymph % (Auto) [place] % (Auto) Lymph # [place] # Seg Neutrophils % Seg Neuts % (Manual) Lymphocytes % (Manual) Seg Neutrophils # Seg Neutrophils # Man Lymphocytes # (Manual) POC ABG pH POC ABG pCO2 POC ABG pO2 76 L Sodium Potassium Chloride Carbon Dioxide BUN Creatinine Glucose POC Glucose 142 H 204 H Calcium Phosphorus Magnesium Alkaline Phosphatase NT-Pro-B Natriuret Pep Total Protein Albumin Lipase Free T4 11/06/18 11/06/18 11/06/18 04:21 12:14 17:17 WBC RBC Hgb Hct MCV MCH MCHC Plt Count Lymph % (Auto) [place] % (Auto) Lymph # [place] # Seg Neutrophils % Seg Neuts % (Manual) Lymphocytes % (Manual) Seg Neutrophils # Seg Neutrophils # Man Lymphocytes # (Manual) POC ABG pH POC ABG pCO2 POC ABG pO2 Sodium 133 L Potassium Chloride Carbon Dioxide 18 L BUN 47 H Creatinine Glucose 187 H POC Glucose 232 H 199 H Calcium 7.8 L Phosphorus 5.30 H D Magnesium 2.50 H Alkaline Phosphatase NT-Pro-B Natriuret Pep Total Protein Albumin Lipase Free T4 11/06/18 11/06/18 11/07/18 19:46 23:30 00:00 WBC RBC Hgb Hct MCV MCH MCHC Plt Count Lymph % (Auto) [place] % (Auto) Lymph # [place] # Seg Neutrophils % Seg Neuts % (Manual) Lymphocytes % (Manual) Seg Neutrophils # Seg Neutrophils # Man Lymphocytes # (Manual) POC ABG pH 7.317 L POC ABG pCO2 50.3 H POC ABG pO2 58 L 57 L Sodium Potassium Chloride Carbon Dioxide BUN Creatinine Glucose POC Glucose 224 H Calcium Phosphorus Magnesium Alkaline Phosphatase NT-Pro-B Natriuret Pep Total Protein Albumin Lipase Free T4 11/07/18 11/07/18 11/07/18 04:55 04:55 04:55 WBC 25.2 H RBC 3.64 L Hgb Hct MCV MCH MCHC Plt Count Lymph % (Auto) [place] % (Auto) Lymph # [place] # Seg Neutrophils % Seg Neuts % (Manual) Lymphocytes % (Manual) Seg Neutrophils # Seg Neutrophils # Man Lymphocytes # (Manual) POC ABG pH POC ABG pCO2 POC ABG pO2 Sodium Potassium Chloride Carbon Dioxide BUN 54 H Creatinine Glucose 270 H POC Glucose Calcium 7.9 L Phosphorus 5.00 H Magnesium Alkaline Phosphatase NT-Pro-B Natriuret Pep 4507 H Total Protein Albumin Lipase Free T4 11/07/18 11/07/18 11/07/18 05:46 08:08 11:52 WBC RBC Hgb Hct MCV MCH MCHC Plt Count Lymph % (Auto) [place] % (Auto) Lymph # [place] # Seg Neutrophils % Seg Neuts % (Manual) Lymphocytes % (Manual) Seg Neutrophils # Seg Neutrophils # Man Lymphocytes # (Manual) POC ABG pH POC ABG pCO2 47.6 H POC ABG pO2 106 H Sodium Potassium Chloride Carbon Dioxide BUN Creatinine Glucose POC Glucose 266 H 323 H Calcium Phosphorus Magnesium Alkaline Phosphatase NT-Pro-B Natriuret Pep Total Protein Albumin Lipase Free T4 11/07/18 11/07/18 11/07/18 12:29 17:57 23:48 WBC RBC Hgb Hct MCV MCH MCHC Plt Count Lymph % (Auto) [place] % (Auto) Lymph # [place] # Seg Neutrophils % Seg Neuts % (Manual) Lymphocytes % (Manual) Seg Neutrophils # Seg Neutrophils # Man Lymphocytes # (Manual) POC ABG pH POC ABG pCO2 POC ABG pO2 Sodium Potassium Chloride Carbon Dioxide BUN Creatinine Glucose POC Glucose 325 H 286 H 231 H Calcium Phosphorus Magnesium Alkaline Phosphatase NT-Pro-B Natriuret Pep Total Protein Albumin Lipase Free T4 11/08/18 11/08/18 11/08/18 03:58 05:05 05:05 WBC 18.4 H RBC 3.20 L Hgb 10.0 L Hct 29.7 L MCV MCH MCHC Plt Count Lymph % (Auto) [place] % (Auto) Lymph # [place] # Seg Neutrophils % Seg Neuts % (Manual) Lymphocytes % (Manual) Seg Neutrophils # Seg Neutrophils # Man Lymphocytes # (Manual) POC ABG pH 7.524 H POC ABG pCO2 34.3 L POC ABG pO2 Sodium Potassium Chloride Carbon Dioxide BUN 61 H Creatinine Glucose 253 H POC Glucose Calcium 7.6 L Phosphorus Magnesium Alkaline Phosphatase NT-Pro-B Natriuret Pep Total Protein Albumin Lipase Free T4 11/08/18 11/08/18 11/08/18 05:28 11:28 18:21 WBC RBC Hgb Hct MCV MCH MCHC Plt Count Lymph % (Auto) [place] % (Auto) Lymph # [place] # Seg Neutrophils % Seg Neuts % (Manual) Lymphocytes % (Manual) Seg Neutrophils # Seg Neutrophils # Man Lymphocytes # (Manual) POC ABG pH POC ABG pCO2 POC ABG pO2 Sodium Potassium Chloride Carbon Dioxide BUN Creatinine Glucose POC Glucose 295 H 253 H 225 H Calcium Phosphorus Magnesium Alkaline Phosphatase NT-Pro-B Natriuret Pep Total Protein Albumin Lipase Free T4 11/09/18 11/09/18 11/09/18 00:57 04:06 06:06 WBC RBC Hgb Hct MCV MCH MCHC Plt Count Lymph % (Auto) [place] % (Auto) Lymph # [place] # Seg Neutrophils % Seg Neuts % (Manual) Lymphocytes % (Manual) Seg Neutrophils # Seg Neutrophils # Man Lymphocytes # (Manual) POC ABG pH 7.509 H POC ABG pCO2 POC ABG pO2 Sodium Potassium Chloride Carbon Dioxide BUN Creatinine Glucose POC Glucose 218 H 199 H Calcium Phosphorus Magnesium Alkaline Phosphatase NT-Pro-B Natriuret Pep Total Protein Albumin Lipase Free T4 11/09/18 11/09/18 11/09/18 06:51 06:51 12:07 WBC 13.5 H RBC 2.97 L Hgb 9.3 L Hct 27.6 L MCV MCH MCHC Plt Count Lymph % (Auto) [place] % (Auto) Lymph # [place] # Seg Neutrophils % Seg Neuts % (Manual) Lymphocytes % (Manual) Seg Neutrophils # Seg Neutrophils # Man Lymphocytes # (Manual) POC ABG pH POC ABG pCO2 POC ABG pO2 Sodium Potassium Chloride 96.5 L Carbon Dioxide 32 H BUN 58 H Creatinine Glucose 191 H POC Glucose 212 H Calcium 7.5 L Phosphorus Magnesium Alkaline Phosphatase NT-Pro-B Natriuret Pep Total Protein Albumin Lipase Free T4 11/09/18 11/10/18 11/10/18 18:29 00:09 04:21 WBC RBC Hgb Hct MCV MCH MCHC Plt Count Lymph % (Auto) [place] % (Auto) Lymph # [place] # Seg Neutrophils % Seg Neuts % (Manual) Lymphocytes % (Manual) Seg Neutrophils # Seg Neutrophils # Man Lymphocytes # (Manual) POC ABG pH 7.467 H POC ABG pCO2 49.9 H POC ABG pO2 76 L Sodium Potassium Chloride Carbon Dioxide BUN Creatinine Glucose POC Glucose 192 H 214 H Calcium Phosphorus Magnesium Alkaline Phosphatase NT-Pro-B Natriuret Pep Total Protein Albumin Lipase Free T4 11/10/18 11/10/18 11/10/18 04:39 04:39 06:05 WBC 14.3 H RBC 3.09 L Hgb 9.7 L Hct 28.9 L MCV MCH MCHC Plt Count Lymph % (Auto) [place] % (Auto) Lymph # [place] # Seg Neutrophils % Seg Neuts % (Manual) Lymphocytes % (Manual) Seg Neutrophils # Seg Neutrophils # Man Lymphocytes # (Manual) POC ABG pH POC ABG pCO2 POC ABG pO2 Sodium Potassium Chloride 97.5 L Carbon Dioxide 31 H BUN 53 H Creatinine Glucose 196 H POC Glucose 202 H Calcium 7.7 L Phosphorus Magnesium Alkaline Phosphatase NT-Pro-B Natriuret Pep Total Protein Albumin Lipase Free T4 11/10/18 11/10/18 11/11/18 12:32 17:16 00:06 WBC RBC Hgb Hct MCV MCH MCHC Plt Count Lymph % (Auto) [place] % (Auto) Lymph # [place] # Seg Neutrophils % Seg Neuts % (Manual) Lymphocytes % (Manual) Seg Neutrophils # Seg Neutrophils # Man Lymphocytes # (Manual) POC ABG pH POC ABG pCO2 POC ABG pO2 Sodium Potassium Chloride Carbon Dioxide BUN Creatinine Glucose POC Glucose 197 H 200 H 177 H Calcium Phosphorus Magnesium Alkaline Phosphatase NT-Pro-B Natriuret Pep Total Protein Albumin Lipase Free T4 11/11/18 11/11/18 11/11/18 04:43 05:24 05:50 WBC 14.1 H RBC 2.92 L Hgb 9.1 L Hct 27.0 L MCV MCH MCHC Plt Count Lymph % (Auto) [place] % (Auto) Lymph # [place] # Seg Neutrophils % Seg Neuts % (Manual) Lymphocytes % (Manual) Seg Neutrophils # Seg Neutrophils # Man Lymphocytes # (Manual) POC ABG pH POC ABG pCO2 50.1 H POC ABG pO2 Sodium Potassium Chloride Carbon Dioxide BUN Creatinine Glucose POC Glucose 199 H Calcium Phosphorus Magnesium Alkaline Phosphatase NT-Pro-B Natriuret Pep Total Protein Albumin Lipase Free T4 11/11/18 05:50 WBC RBC Hgb Hct MCV MCH MCHC Plt Count Lymph % (Auto) [place] % (Auto) Lymph # [place] # Seg Neutrophils % Seg Neuts % (Manual) Lymphocytes % (Manual) Seg Neutrophils # Seg Neutrophils # Man Lymphocytes # (Manual) POC ABG pH POC ABG pCO2 POC ABG pO2 Sodium Potassium 3.5 L Chloride Carbon Dioxide 34 H BUN 47 H Creatinine 0.5 L Glucose 169 H POC Glucose Calcium 8.2 L Phosphorus Magnesium Alkaline Phosphatase 142 H NT-Pro-B Natriuret Pep Total Protein 4.4 L Albumin 2.1 L Lipase Free T4 Allied health notes reviewed: nursing
--- NOTE | 2018-11-11 09:29 | Progress Note ---
Assessment and Plan Pt remains intubated. Currently in SR with bouts of ST with PACs overnight. Cont present cardiac management. The patient has been seen in conjunction with Dr. Stoner who agrees with the assessment and plan of care. - Patient Problems (1) Atrial tachycardia, paroxysmal Current Visit: Yes Status: Acute (2) Tachy-adama syndrome Current Visit: Yes Status: Acute (3) Acute respiratory failure Current Visit: Yes Status: Acute Qualifiers: Respiratory failure complication: hypoxia Qualified Code(s): J96.01 - Acute respiratory failure with hypoxia (4) Perforated gastric ulcer Current Visit: Yes Status: Acute (5) Intractable nausea and vomiting Current Visit: Yes Status: Acute (6) Partial small bowel obstruction Current Visit: Yes Status: Acute (7) COPD (chronic obstructive pulmonary disease) Current Visit: Yes Status: Chronic (8) History of hypertension Current Visit: Yes Status: Chronic (9) ADWOA (acute kidney injury) Current Visit: Yes Status: Acute (10) Hypokalemia Current Visit: Yes Status: Acute Subjective Date of service: 11/11/18 Principal diagnosis: ARFMV,COPD Interval history: pt remains intubated, in SR on tele with bouts of ST with PACs overnight, at bedside. Objective Last Vital Signs Temp 97.6 F 11/11/18 03:42 Pulse 104 H 11/11/18 08:30 Resp 22 11/11/18 08:30 BP 111/52 11/11/18 08:30 Pulse Ox 98 11/11/18 06:00 - Physical Examination General: Other (intubated) HEENT: Positive: EOMI, Normocephaly, Mucus Membranes Moist Neck: Positive: neck supple, trachea midline Cardiac: Positive: Reg Rate and Rhythm, S1/S2 Lungs: Positive: Rhonchi, Oxygen, Ventilated Respirations Neuro: Positive: Other (intubated) Abdomen: Positive: Soft. Negative: Tender Skin: Positive: Clear. Negative: Rash Musculoskeletal: Decreased Range of Motion, Normal Range of Motion Extremities: Present: normal. Absent: edema - Labs and Meds Cardiac Enzymes 11/11/18 Range/Units 05:50 AST 26 (5-40) units/L CBC 11/11/18 Range/Units 05:50 WBC 14.1 H (4.5-11.0) K/mm3 RBC 2.92 L (3.65-5.03) M/mm3 Hgb 9.1 L (10.1-14.3) gm/dl Hct 27.0 L (30.3-42.9) % Plt Count 188 (140-440) K/mm3 Comprehensive Metabolic Panel 11/11/18 Range/Units 05:50 Sodium 142 (137-145) mmol/L Potassium 3.5 L (3.6-5.0) mmol/L Chloride 99.0 (98-107) mmol/L Carbon Dioxide 34 H (22-30) mmol/L BUN 47 H (7-17) mg/dL Creatinine 0.5 L (0.7-1.2) mg/dL Glucose 169 H (65-100) mg/dL Calcium 8.2 L (8.4-10.2) mg/dL AST 26 (5-40) units/L ALT 28 (7-56) units/L Alkaline Phosphatase 142 H (35-129) units/L Total Protein 4.4 L (6.3-8.2) g/dL Albumin 2.1 L (3.9-5) g/dL - Imaging and Cardiology EKG: image reviewed Echo: report reviewed (EF 50%, trace TR, minimal pericardial effusion. ) - Telemetry EKG Rhythm: Sinus Rhythm - EKG Sinus rhythms and dysrhythmias: sinus rhythm - Allied health notes Allied health notes reviewed: nursing
[2018-11-11] MEDS: MYCAMINE 100 MG in NACL 0.9% 100 ML IV SCH (10:01)
[2018-11-11] MEDS: PROTONIX IV SCH (10:01)
--- NOTE | 2018-11-11 13:02 | Progress Note ---
Assessment and Plan Assessment and plan: Gastric perforation. Repeat CT scan on 10/30 revealed pSBO resolved, no evidence for bowel ischemia. Small contained gastric perforation at lesser curve. No gross free air or contrast extravasation. Surgery recommends conservative management with continuing NGT, NPO, gentle IVF and when necessary pain control. Will reimage stomach when pulm status is more stable to make sure there is no leak. Sepsis/fungemia. Continue antibiotics/antifungals and follow cultures. ID following. May need to switch off PICC to other access, hold IV nutrition ? Thrombocytopenia. Etiology likely secondary to sepsis. Hematology following. Bilateral upper lobe/aspiration pneumonia. Sputum culture positive for Escherichia coli and stenotrophomonas. Continue antibiotics per ID. Partial small bowel obstruction. Continue NGT per surgery. Acute exacerbation COPD. Scheduled Duo Nebs and Pulmicort; albuterol when necessary Acute hypoxic respiratory failure. Patient was reintubated on 10/28/18 and cur rently on mechanical ventilation. Etiology secondary to COPD/pneumonia/sepsis. Extubated 11/05, re-intubated 11/07 He has been intubated 3 times now and trach has been recommended. Wean mechanical ventilation per pulmonary. Hypokalemia. Replete potassium as needed. Hypertension. IV hydralazine when necessary Lupus. Supportive care Fibromyalgia. supportive care History of opioid dependence ADWOA due to vasomotor nephropathy, now resolved The high probability of a clinically significant, sudden or life threatening deterioration of the [GI and respiratory] system(s) required my full and direct attention, intervention and personal management. The aggregate critical care time was [33] minutes. This time is in addition to time spent performing reported procedures but includes the following: [x] Data Review and interpretation [x] Patient assessment and monitoring of vital signs [x] Documentation [x] Medication orders and management History Interval history: Patient is 73-year-old female with history of hypertension, lupus, fibromyalgia, COPD, opioid dependence (follows Dr. Felix Muñiz at pain clinic) who presented to [facility] ED with complaints of intractable nausea, vomiting, diarrhea for 3 days. On initial presentation to the ED she was found to be tachycardiac with heart rate 113 BPM, leukocytosis with WBC 11.5, elevated BUN/Cr 51/2.1. Patient has history of COPD and at baseline does not require home oxygen use. She was admitted to [facility]. GI was consulted, she was evaluated. CT Abdomen revealed partial SBO versus ileus therefore surgeon consulted. Also patient became more short of breath, placed on BIPAP with no improvement then intubated 10/26/18 for acute resp failure and transferred to ICU. Obstruction series completed on 10/27 which showed improved but small bowel and stomach dilatation. Follow-up series on 10/28 showed no significant change since previous study. NG tube was removed due to patient not tolerating/refusing. Patient was placed back on BiPAP but decompensated on the night of 10/28/18 and had to be reintubated. Patient currently on mechanical ventilation. Patient has had further complications now with findings consistent with contained gastric perforation on repeat CT scan 10/30, managed conservatively. She was extubated 11/05, re-intubated 11/07/18. This is 3rd intubation so Tracheostomy has been recommended and being planned. No PEG yet, for at least 2 weeks because of recent gastric perf oration. Hospitalist Physical - Constitutional Vitals: Temp Pulse Resp BP Pulse Ox 97.5 F L 115 H 18 111/35 98 11/11/18 12:00 11/11/18 12:00 11/11/18 12:00 11/11/18 12:00 11/11/18 12:00 General appearance: Present: other (intubated, opens eyes to commands) - EENT Eyes: Present: PERRL, EOM intact ENT: hearing intact, clear oral mucosa, dentition normal - Neck Neck: Present: supple, normal ROM - Respiratory Respiratory effort: normal Respiratory: bilateral: CTA - Cardiovascular Rhythm: regular Heart Sounds: Present: S1 & S2. Absent: gallop, rub - Extremities Extremities: no ischemia, No edema, Full ROM - Abdominal General gastrointestinal: soft, non-tender, non-distended, normal bowel sounds - Integumentary Integumentary: Present: clear, warm, dry - Neurologic Neurologic: CNII-XII intact, moves all extremities Results - Labs CBC & Chem 7: 11/11/18 05:50 11/11/18 05:50 Labs: Laboratory Last Values WBC 14.1 K/mm3 (4.5-11.0) H 11/11/18 05:50 RBC 2.92 M/mm3 (3.65-5.03) L 11/11/18 05:50 Hgb 9.1 gm/dl (10.1-14.3) L 11/11/18 05:50 Hct 27.0 % (30.3-42.9) L 11/11/18 05:50 MCV 93 fl (79-97) 11/11/18 05:50 MCH 31 pg (28-32) 11/11/18 05:50 MCHC 34 % (30-34) 11/11/18 05:50 RDW 14.5 % (13.2-15.2) 11/11/18 05:50 Plt Count 188 K/mm3 (140-440) 11/11/18 05:50 Lymph % (Auto) 10.2 % (13.4-35.0) L 10/23/18 04:32 [place] % (Auto) 14.7 % (0.0-7.3) H 10/23/18 04:32 Eos % (Auto) 0.1 % (0.0-4.3) 10/23/18 04:32 Baso % (Auto) 0.1 % (0.0-1.8) 10/23/18 04:32 Lymph # 0.7 K/mm3 (1.2-5.4) L 10/23/18 04:32 [place] # 1.0 K/mm3 (0.0-0.8) H 10/23/18 04:32 Eos # 0.0 K/mm3 (0.0-0.4) 10/23/18 04:32 Baso # 0.0 K/mm3 (0.0-0.1) 10/23/18 04:32 Add Manual Diff Complete 11/04/18 09:39 Total Counted 100 11/04/18 09:39 Seg Neutrophils % Shank Boner 11/04/18 09:39 Seg Neuts % (Manual) 98.0 % (40.0-70.0) H 11/04/18 09:39 0 % 11/04/18 09:39 1.0 % (13.4-35.0) L 11/04/18 09:39 Reactive Lymphs % (Man) 0 % 11/04/18 09:39 0 % (0.0-7.3) 11/04/18 09:39 1.0 % (0.0-4.3) 11/04/18 09:39 0 % (0.0-1.8) 11/04/18 09:39 0 % 11/04/18 09:39 0 % 11/04/18 09:39 0 % 11/04/18 09:39 0 % 11/04/18 09:39 Nucleated RBC % Not Reportable 11/04/18 09:39 Seg Neutrophils # 5.2 K/mm3 (1.8-7.7) 10/23/18 04:32 Seg Neutrophils # Man 14.9 K/mm3 (1.8-7.7) H 11/04/18 09:39 Band Neutrophils # 0.0 K/mm3 11/04/18 09:39 0.2 K/mm3 (1.2-5.4) L 11/04/18 09:39 Abs React Lymphs (Man) 0.0 K/mm3 11/04/18 09:39 0.0 K/mm3 (0.0-0.8) 11/04/18 09:39 0.2 K/mm3 (0.0-0.4) 11/04/18 09:39 0.0 K/mm3 (0.0-0.1) 11/04/18 09:39 0.0 K/mm3 11/04/18 09:39 0.0 K/mm3 11/04/18 09:39 0.0 K/mm3 11/04/18 09:39 Blast Cells # 0.0 K/mm3 11/04/18 09:39 WBC Morphology Not Reportable 11/04/18 09:39 Hypersegmented Neuts Not Reportable 11/04/18 09:39 Hyposegmented Neuts Not Reportable 11/04/18 09:39 Hypogranular Neuts Not Reportable 11/04/18 09:39 Not Reportable 11/04/18 09:39 Not Reportable 11/04/18 09:39 Not Reportable 11/04/18 09:39 Not Reportable 11/04/18 09:39 Not Reportable 11/04/18 09:39 Not Reportable 11/04/18 09:39 Consistent w auto 11/04/18 09:39 Not Reportable 11/04/18 09:39 Plt Clumps, EDTA Not Reportable 11/04/18 09:39 Not Reportable 11/04/18 09:39 Not Reportable 11/04/18 09:39 Not Reportable 11/04/18 09:39 Plt Morphology Comment Not Reportable 11/04/18 09:39 RBC Morphology Normal 11/04/18 09:39 Dimorphic RBCs Not Reportable 11/04/18 09:39 Not Reportable 11/04/18 09:39 Not Reportable 11/04/18 09:39 Not Reportable 11/04/18 09:39 Not Reportable 11/04/18 09:39 Not Reportable 11/04/18 09:39 Not Reportable 11/04/18 09:39 Not Reportable 11/04/18 09:39 Not Reportable 11/04/18 09:39 Not Reportable 11/04/18 09:39 Not Reportable 11/04/18 09:39 Not Reportable 11/04/18 09:39 Not Reportable 11/04/18 09:39 Not Reportable 11/04/18 09:39 Not Reportable 11/04/18 09:39 Not Reportable 11/04/18 09:39 Not Reportable 11/04/18 09:39 Not Reportable 11/04/18 09:39 Not Reportable 11/04/18 09:39 Not Reportable 11/04/18 09:39 Acanthocytes (Spur) Not Reportable 11/04/18 09:39 Rouleaux Not Reportable 11/04/18 09:39 Not Reportable 11/04/18 09:39 Not Reportable 11/04/18 09:39 Not Reportable 11/04/18 09:39 Not Reportable 11/04/18 09:39 Hem Pathologist Commnt No 11/04/18 09:39 Heparin Anti-Xa, Unfract Negative (Negative) 10/30/18 13:58 POC ABG pH 7.447 (7.35-7.45) 11/11/18 04:43 POC ABG pCO2 50.1 (35-45) H 11/11/18 04:43 POC ABG pO2 100 (80-105) 11/11/18 04:43 POC ABG HCO3 34.5 (22-26 mml/L) 11/11/18 04:43 POC ABG Total CO2 36 (23-27mmol/L) 11/11/18 04:43 POC ABG O2 Sat 98 11/11/18 04:43 POC ABG Base Excess 10 ((-2) - (+3)mmol/L) 11/11/18 04:43 35 % 11/11/18 04:43 Sodium 142 mmol/L (137-145) 11/11/18 05:50 Potassium 3.5 mmol/L (3.6-5.0) L 11/11/18 05:50 Chloride 99.0 mmol/L (98-107) 11/11/18 05:50 Carbon Dioxide 34 mmol/L (22-30) H 11/11/18 05:50 13 mmol/L 11/11/18 05:50 BUN 47 mg/dL (7-17) H 11/11/18 05:50 0.5 mg/dL (0.7-1.2) L 11/11/18 05:50 Estimated GFR > 60 ml/min 11/11/18 05:50 94 % 11/11/18 05:50 Glucose 169 mg/dL (65-100) H 11/11/18 05:50 POC Glucose 199 (70-105) H 11/11/18 05:24 Lactic Acid 1.60 mmol/L (0.7-2.0) 10/26/18 15:03 Calcium 8.2 mg/dL (8.4-10.2) L 11/11/18 05:50 Phosphorus 2.80 mg/dL (2.5-4.5) 11/11/18 05:50 Magnesium 1.80 mg/dL (1.7-2.3) 11/11/18 05:50 0.30 mg/dL (0.1-1.2) 11/11/18 05:50 AST 26 units/L (5-40) 11/11/18 05:50 ALT 28 units/L (7-56) 11/11/18 05:50 142 units/L (35-129) H 11/11/18 05:50 NT-Pro-B Natriuret Pep 4507 pg/mL (0-900) H 11/07/18 04:55 4.4 g/dL (6.3-8.2) L 11/11/18 05:50 2.1 g/dL (3.9-5) L 11/11/18 05:50 0.9 % 11/11/18 05:50 Triglycerides 132 mg/dL (2-149) 11/01/18 06:40 10 units/L (13-60) L 10/22/18 15:54 See scanned result 10/30/18 13:58 TSH 3.150 mlU/mL (0.270-4.200) 10/31/18 17:00 Free T4 0.49 ng/dL (0.76-1.46) L 10/31/18 17:00 Dulce (Yellow) 10/22/18 19:10 Clear (Clear) 10/22/18 19:10 5.0 (5.0-7.0) 10/22/18 19:10 Ur Specific [place] 1.018 (1.003-1.030) 10/22/18 19:10 30 mg/dl mg/dL (Negative) 10/22/18 19:10 Neg mg/dL (Negative) 10/22/18 19:10 Tr mg/dL (Negative) 10/22/18 19:10 Neg (Negative) 10/22/18 19:10 Neg (Negative) 10/22/18 19:10 Neg (Negative) 10/22/18 19:10 < 2.0 mg/dL (<2.0) 10/22/18 19:10 Ur Leukocyte Esterase Neg (Negative) 10/22/18 19:10 1.0 /HPF (0.0-6.0) 10/22/18 19:10 3.0 /HPF (0.0-6.0) 10/22/18 19:10 Heparin-induced Plt Ab Negative (Negative) 10/30/18 13:58 UF Heparin High Dose 0 % Release 10/30/18 13:58 KIMO UFH Low Dose 0.1 0 % Release 10/30/18 13:58 KIMO UFH Low Dose 0.5 0 % Release 10/30/18 13:58 Active Medications - Current Medications Current Medications: Generic Name Dose Route Start Last Admin Trade Name Freq PRN Reason Stop Dose Admin Acetaminophen 650 mg 10/22/18 20:10 11/10/18 14:37 Tylenol PO 650 mg Q4H PRN Administration Pain MILD(1-3)/Fever >100.5/PORTER Albuterol 2.5 mg 10/22/18 20:14 11/05/18 16:35 Proventil IH 2.5 mg Q4HRT PRN Administration Shortness Of Breath Lipase/Protease/Amylase 1 each 11/05/18 10:13 Gwendolyn Simpson 10,500 Unit FEEDTUBE PRN PRN For Clogged Feeding Tube Arformoterol Tartrate 15 mcg 11/05/18 20:00 11/11/18 08:19 Brovana Nebu IH 15 mcg Q12HRT RICK Administration Budesonide 0.5 mg 10/23/18 08:00 11/11/18 08:19 Pulmicort IH 0.5 mg Q12HRT RICK Administration Dextrose 50 ml 10/26/18 23:40 10/27/18 00:20 D50w (25gm) Syringe IV 50 ml PRN PRN Administration Hypoglycemia Enoxaparin Sodium 40 mg 11/05/18 22:00 11/10/18 21:13 Lovenox SUB-Q 40 mg QDAY@2200 RICK Administration Fentanyl 50 mcg 11/08/18 15:00 11/11/18 12:00 Sublimaze IV 50 mcg Q2H PRN Administration pain, severe (7-10) Hydralazine HCl 10 mg 10/22/18 21:41 11/07/18 00:04 Apresoline IV 10 mg Q4HR PRN Administration Blood Pressure Hydrophilic Ointment 1 applic 11/07/18 09:14 Vaseline Lip Therapy TP Q2HR PRN Dry Lips Micafungin Sodium 100 mg/ 100 mls @ 100 mls/hr 11/02/18 10:00 11/11/18 10:01 Sodium Chloride IV 100 mls/hr QDAY [facility] Administration Protocol Amino Acids/Electrolytes/Dextrose 2,400 mls @ 100 mls/hr 11/10/18 20:00 11/10/18 20:07 Tpn Adult IV 11/11/18 19:59 100 mls/hr DAILY@2000 [facility] Administration Protocol Insulin Human Isoph/Insulin Regular 12 unit 11/10/18 22:00 11/11/18 10:00 Humulin 70/30 SUB-Q 12 unit BID RICK Administration Insulin Human Lispro 0 unit 10/29/18 12:00 11/11/18 12:01 Humalog SUB-Q 2 unit Q6HR [facility] Administration Protocol Lorazepam 1 mg 11/06/18 11:00 11/11/18 04:45 Ativan IV 1 mg Q6H PRN Administration Anxiety Methylprednisolone Sodium Succinate 60 mg 11/09/18 07:00 11/11/18 05:47 Solu-Medrol IV 60 mg Q8HR RICK Administration Metoprolol Tartrate 5 mg 10/31/18 14:00 11/11/18 07:59 Lopressor IV 5 mg TID RICK Administration Multi-Ingred Cream/Lotion/Oil/Oint 1 applic 11/07/18 09:14 Artificial Tears Ophth Oint OU Q4HR PRN Dry Eye(s) Ondansetron HCl 4 mg 10/24/18 10:05 10/25/18 17:26 Zofran IV 4 mg Q6H PRN Administration Nausea And Vomiting Oxycodone/Acetaminophen 1 tab 11/05/18 11:16 11/11/18 07:58 Percocet 5/325 PO 1 tab Q6H PRN Administration Pain, Moderate (4-6) Pantoprazole Sodium 40 mg 11/05/18 10:00 11/11/18 10:01 Protonix IV 40 mg DAILY RIKC Administration Phenol 1 spray 10/28/18 10:16 Chloraseptic MM PRN PRN Sore Throat Promethazine HCl 25 mg 10/22/18 20:10 10/22/18 21:21 Phenergan MT 25 mg Q6H PRN Administration Nausea And Vomiting Simple Syrup 15 ml 11/05/18 10:13 Simple Syrup FEEDTUBE PRN PRN Hypoglycemia Simple Syrup 30 ml 11/05/18 10:13 Simple Syrup FEEDTUBE PRN PRN Hypoglycemia Sodium Bicarbonate 325 mg 11/05/18 10:13 Sodium Bicarbonate FEEDTUBE PRN PRN For Clogged Feeding Tube Sodium Chloride 10 ml 10/22/18 22:00 11/11/18 10:02 Sodium Chloride Flush Syringe 10 Ml IV 10 ml BID RICK Administration Sodium Chloride 10 ml 10/22/18 20:10 11/09/18 14:29 Sodium Chloride Flush Syringe 10 Ml IV 10 ml PRN PRN Administration LINE FLUSH Nutrition/Malnutrition Assess - Dietary Evaluation Nutrition/Malnutrition Findings: Nutrition Notes Start: 10/23/18 17:03 Freq: Status: Active Protocol: Document 11/10/18 14:06 SANTIAGO (Rec: 11/10/18 14:24 SANTIAGO [id number] [email or web address]) Nutrition Notes Initial or Follow up Reassessment Current Diagnosis COPD,Sepsis,Hypertension, Respiratory Failure Other Pertinent Diagnosis Gastric peforation, bilat pneu Current Diet PPN at 100 ml/hr + Vital 1.2 at 10 ml/hr Labs/Tests Cl 97.5 CO2 - 31 BUN 53 BG 196 Pertinent Medications Solumedrol Height 5 ft 3 in Weight 63.5 kg Usual Body Weight 50 kg [place] Body Weight (kg) 52.27 BMI 24.7 Weight change and time frame Current wt obtained from bed scale; pt's says she usually weighs ~110#; says pt retaining a lot of fluid Subjective/Other Information PPN Day 11. Pt tolerating TF at 10ml/hr. Per surgeon, SBO resolved; ok to start increasing TF rate to goal. RN reported gastric residuals of 30ml this am. Pt remains intubated. Percent of energy/protein needs met: TF + PPN provides 76% energy and 100% pro Burn Absent Trauma Absent #1 Nutrition Diagnosis Inadequate oral intake Diagnosis Progress(for reassessment Continues documentation) Is patient on ventilator? Yes Is Patient Ambulatory and/or Out of Bed No REE-([facility]-confined to bed) 1343.100 Calculation Used for Recommendations [facility] Additional Notes Pro needs 1.2-2g/kg (based on UBW): 60-100g/day Fluid needs 1ml/kcal Nutrition Intervention Nutrition Support: Increase Vital AF 1.2 to 20ml/ hr. The goal rate is 45ml/hr with 70ml water flush q4h. Continue PPN at 100ml/hr: MVI, 75%/25% chloride/acetate. Osmolality: 762. Kcal 1,016 Protein (gm) 98 Carbohydrates (gm) 147 Fat (gm) 13 Fluid (mL) 2,595 Fiber (gm) 1 Goal #1 TF tolerance Goal #2 TF to meet at least 75% energy and pro needs Follow-Up By: 11/11/18 Additional Comments Labs in am: CMP, Mg, Phos F/U: TF tolerance, rate increase
--- NOTE | 2018-11-11 14:50 | Progress Note ---
Assessment and Plan Cultures: Blood cultures 10/22/2018 no growth Tracheal asp cultures 10/28/2018: E.coli and Stenotrophomonas. 10/30/2018 blood culture: Ayla glabrata 11/03/2018 fungal blood culture: no growth thus far Assessment: 73 y/o female with history of COPD, hypertension, lupus, fibromyalgia, opioid dependence admitted on 10/22/2018 due to 3-day history of intractable nausea, vomiting, diarrhea: 1) SIRS v/s sepsis: fever and leukocytosis resolved. Etiology most likely aspiration pneumonia +/- intra-abdominal source from contained gastric perforation, now also with Candidemia. 2) Candidemia due to Ayla glabrata: in the setting of TPN and PICC line. PICC removed. Has temporary central line. TTE not optimal quality, will need LAUREN only if repeat fungal blood cultures are positive. Continue IV Micafungin and f/u fungal blood cultures. 3) Acute respiratory failure: pneumonia and fluid overload. Extubated 11/05/2018 and now reintubated 11/07/2018. 4) Presumed aspiration pneumonia v/s HAP: Tracheal asp cultures 10/28/2018 with E.coli and Stenotrophomonas. Stenotrophomonas is a known colonizer in patients with structural lung disease or tracheostomy tubes/ET tubes, not generally considered very virulent. Given her prolonged and complicated hospital stay, completed a 10 day course of abx. 5) Ileus v/s partial SBO and contained gastric perforation: Gen Surgery following. Planned for conservative management. Now on tube feeds. 6) ADWOA: improved. Recommendations: - continue IV Micafungin complete 14 days from negative blood cultures until 11/16/2018 - remove existing central line since it was placed during active candidemia. OK to insert new midline if needed MD [facility] C: [phone] O: [phone] F: [phone] Subjective Date of service: 11/11/18 Principal diagnosis: ARFMV,COPD Interval history: No fever. Remains on the vent. On tube feeds at 20 ml/hr. Objective - Exam Narrative Exam: Physical Exam: Constitutional: sedated, intubated Head, Ears, Nose: Normocephalic, atraumatic. External ears, nose normal Eyes: Conjunctivae/corneas clear. No icterus. No ptosis. Neck: intubated. RIJ central line + Oral: intubated Cardiovascular: S1, S2 normal, no murmur heard Respiratory: bilateral rhonchi + GI: Soft, non-tender; bowel sounds hypoactive, No peritoneal signs Musculoskeletal: edema of all 4 ext. Skin: No rash or abscess Hem/Lymphatic: No palpable cervical or supraclavicular nodes. No lymphangitis Psych: sedated Neurological: sedated - Constitutional Vitals: Vital Signs Temp Pulse Resp BP Pulse Ox 97.5 F L 119 H 18 97/43 98 11/11/18 12:00 11/11/18 14:00 11/11/18 14:00 11/11/18 14:00 11/11/18 14:00 Temperature -Last 24 Hours Temperature 97.5 F Temperature 97.2 F Temperature 97.6 F Temperature 97.4 F Temperature 97.3 F Temperature 98.8 F - Labs CBC & Chem 7: 11/11/18 05:50 11/11/18 05:50 Labs: Abnormal lab results 11/10/18 11/11/18 11/11/18 Range/Units 17:16 00:06 04:43 WBC (4.5-11.0) K/mm3 RBC (3.65-5.03) M/mm3 Hgb (10.1-14.3) gm/dl Hct (30.3-42.9) % POC ABG pCO2 50.1 H (35-45) Potassium (3.6-5.0) mmol/L Carbon Dioxide (22-30) mmol/L BUN (7-17) mg/dL Creatinine (0.7-1.2) mg/dL Glucose (65-100) mg/dL POC Glucose 200 H 177 H (70-105) Calcium (8.4-10.2) mg/dL Alkaline Phosphatase (35-129) units/L Total Protein (6.3-8.2) g/dL Albumin (3.9-5) g/dL 11/11/18 11/11/18 11/11/18 Range/Units 05:24 05:50 05:50 WBC 14.1 H (4.5-11.0) K/mm3 RBC 2.92 L (3.65-5.03) M/mm3 Hgb 9.1 L (10.1-14.3) gm/dl Hct 27.0 L (30.3-42.9) % POC ABG pCO2 (35-45) Potassium 3.5 L (3.6-5.0) mmol/L Carbon Dioxide 34 H (22-30) mmol/L BUN 47 H (7-17) mg/dL Creatinine 0.5 L (0.7-1.2) mg/dL Glucose 169 H (65-100) mg/dL POC Glucose 199 H (70-105) Calcium 8.2 L (8.4-10.2) mg/dL Alkaline Phosphatase 142 H (35-129) units/L Total Protein 4.4 L (6.3-8.2) g/dL Albumin 2.1 L (3.9-5) g/dL 11/11/18 Range/Units 12:00 WBC (4.5-11.0) K/mm3 RBC (3.65-5.03) M/mm3 Hgb (10.1-14.3) gm/dl Hct (30.3-42.9) % POC ABG pCO2 (35-45) Potassium (3.6-5.0) mmol/L Carbon Dioxide (22-30) mmol/L BUN (7-17) mg/dL Creatinine (0.7-1.2) mg/dL Glucose (65-100) mg/dL POC Glucose 168 H (70-105) Calcium (8.4-10.2) mg/dL Alkaline Phosphatase (35-129) units/L Total Protein (6.3-8.2) g/dL Albumin (3.9-5) g/dL - Imaging and cardiology Chest x-ray: report reviewed, image reviewed (?left sided effusion. Central line +)
[2018-11-11] MEDS ORDERED: SODIUM BICARBONATE FEEDTUBE PRN (17:02)
[2018-11-11] MEDS ORDERED: PANCREAZE DR 10,500 UNIT FEEDTUBE PRN (17:02)
[2018-11-11] MEDS ORDERED: SIMPLE SYRUP FEEDTUBE PRN ×2 (17:02)
[2018-11-12] MEDS: LOPRESSOR IV SCH ×4 (03:45→21:03)
[2018-11-12] MEDS: LOVENOX SUB-Q SCH (03:47)
[2018-11-12] MEDS: SOLU-Medrol IV SCH ×4 (03:48→21:05)
[2018-11-12] MEDS: SODIUM CHLORIDE FLUSH SYRINGE 10 ML IV SCH ×3 (03:50→21:06)
--- NOTE | 2018-11-12 04:21 | XRay Report ---
PROCEDURE: XR CHEST 1V AP TECHNIQUE: Chest radiograph single view. HISTORY: follow up respiratory failure COMPARISONS: 11/11/2018 . FINDINGS: Endotracheal tube terminates approximately 2-3 cm from the rekha. Unchanged right IJ line. No medias tinal shift. Cardiac silhouette is unchanged. No pneumothorax. Patchy opacities greatest in the left lower lobe are similar to prior. IMPRESSION: No pneumothorax or significant change compared to 11/11/2018. This document is electronically signed by Norberto Reese MD., November 12 2018 04:19:38 AM ET
[2018-11-12] MEDS: HumaLOG SUB-Q SCH ×4 (06:38→17:46)
[2018-11-12] MEDS: SUBLIMAZE IV PRN ×2 (06:54→09:09)
--- NOTE | 2018-11-12 07:50 | Hem/Onc Progress Note ---
Assessment and Plan 1. h/o Thrombocytopenia, likely medication, pts medical status related. 2. History of colon surgery in the past, details not clear. 3. History of bowel issues. Seen by surgical team. - pSBO and contained gastric perforation 4. h/o TPN. 5. h/o Ayla, ID following. 6. Chronic obstructive pulmonary disease. 7. Hypertension. 8. History of lupus. 9. Aspiration pneumonia. 10. The patient was on ventilation. 11. Renal impairment. 11/12 pt on vent - pulm following plan for trach on 11/13 plt better anemia - will follow - Patient Problems (1) Thrombocytopenia Current Visit: Yes Status: Acute Subjective Date of service: 11/12/18 Principal diagnosis: anemia Interval history: still on vent Objective - Constitutional Vitals: Last Vital Signs Temp 98.8 F 11/12/18 03:55 Pulse 113 H 11/12/18 04:41 Resp 17 11/12/18 04:00 BP 118/46 11/12/18 04:41 Pulse Ox 98 11/12/18 04:41 General appearance: no acute distress Performance status: 4-completely disabled - EENT Eyes: EOM intact ENT: other (intubated) Lymph node exam: negative cervical - Neck Neck: normal ROM - Respiratory Respiratory effort: Positive: normal Respiratory: bilateral: CTA (anteriorly) - Cardiovascular Heart Sounds: Present: S1 & S2 Extremities: normal temperature - Gastrointestinal General gastrointestinal: Present: soft, non-tender Rectal Exam: deferred - Genitourinary Female genitourinary: Present: deferred - Integumentary Integumentary: warm - Musculoskeletal Musculoskeletal: generalized weakness - Neurologic Neurologic: moves all extremities - Labs Lab Results: Laboratory Results - last 24 hr 11/11/18 11/11/18 11/11/18 12:00 17:57 23:26 POC Glucose 168 H 194 H 181 H 11/12/18 05:32 POC Glucose 186 H Medications & Allergies - Medications Allergies/Adverse Reactions: Allergies Sulfa (Sulfonamide Antibiotics) Allergy (Intermediate, Verified 10/22/18 16:30) Rash metoclopramide HCl [From Reglan] Allergy (Verified 10/22/18 16:30) Dizziness prochlorperazine [From Compazine] Allergy (Verified 10/22/18 16:30) NECK STIFFNESS Home Medications: Home Medications Medication Instructions Recorded Confirmed Last Taken Type Ondansetron 4 mg PO Q6HR PRN 12/05/16 10/22/18 10/29/17 History Propranolol HCl [Propranolol HCl 60 mg PO DAILY 12/05/16 10/22/18 10/30/17 22:00 History ER] QUEtiapine [SEROquel] 300 mg PO DAILY 12/05/16 10/22/18 10/30/17 History Lasix TAB 40 mg PO PRN PRN 12/07/16 10/22/18 10/24/17 History Percocet 10/325 mg 1 tab PO PRN PRN 12/07/16 10/22/18 10/30/17 History Albuterol Sulfate [Albuterol 0.63% 0.63 mg IH TID PRN 10/22/17 10/22/18 10/29/17 History NEBS] Active Medications: Generic Name Dose Route Start Last Admin Trade Name Freq PRN Reason Stop Dose Admin Acetaminophen 650 mg 10/22/18 20:10 11/10/18 14:37 Tylenol PO 650 mg Q4H PRN Administration Pain MILD(1-3)/Fever >100.5/PORTER Albuterol 2.5 mg 10/22/18 20:14 11/05/18 16:35 Proventil IH 2.5 mg Q4HRT PRN Administration Shortness Of Breath Lipase/Protease/Amylase 1 each 11/05/18 10:13 Pancremaranda Simpson 10,500 Unit FEEDTUBE PRN PRN For Clogged Feeding Tube Arformoterol Tartrate 15 mcg 11/05/18 20:00 11/11/18 20:00 Brovana Nebu IH 15 mcg Q12HRT RICK Administration Budesonide 0.5 mg 10/23/18 08:00 11/11/18 20:00 Pulmicort IH 0.5 mg Q12HRT RICK Administration Dextrose 50 ml 10/26/18 23:40 10/27/18 00:20 D50w (25gm) Syringe IV 50 ml PRN PRN Administration Hypoglycemia Enoxaparin Sodium 40 mg 11/05/18 22:00 11/12/18 03:47 Lovenox SUB-Q 40 mg QDAY@2200 RICK Administration Fentanyl 50 mcg 11/08/18 15:00 11/12/18 06:54 Sublimaze IV 50 mcg Q2H PRN Administration pain, severe (7-10) Hydralazine HCl 10 mg 10/22/18 21:41 11/07/18 00:04 Apresoline IV 10 mg Q4HR PRN Administration Blood Pressure Hydrophilic Ointment 1 applic 11/07/18 09:14 Vaseline Lip Therapy TP Q2HR PRN Dry Lips Micafungin Sodium 100 mg/ 100 mls @ 100 mls/hr 11/02/18 10:00 11/11/18 10:01 Sodium Chloride IV 100 mls/hr QDAY RICK Administration Protocol Insulin Human Isoph/Insulin Regular 12 unit 11/10/18 22:00 11/12/18 03:46 Humulin 70/30 SUB-Q 12 unit BID RICK Administration Insulin Human Lispro 0 unit 10/29/18 12:00 11/12/18 06:54 Humalog SUB-Q 2 unit Q6HR RICK Administration Protocol Lorazepam 1 mg 11/06/18 11:00 11/11/18 14:04 Ativan IV 1 mg Q6H PRN Administration Anxiety Methylprednisolone Sodium Succinate 60 mg 11/09/18 07:00 11/12/18 06:55 Solu-Medrol IV 60 mg Q8HR RICK Administration Metoprolol Tartrate 5 mg 10/31/18 14:00 11/12/18 03:45 Lopressor IV 5 mg TID RICK Administration Multi-Ingred Cream/Lotion/Oil/Oint 1 applic 11/07/18 09:14 Artificial Tears Ophth Oint OU Q4HR PRN Dry Eye(s) Ondansetron HCl 4 mg 10/24/18 10:05 10/25/18 17:26 Zofran IV 4 mg Q6H PRN Administration Nausea And Vomiting Oxycodone/Acetaminophen 1 tab 11/05/18 11:16 11/11/18 16:45 Percocet 5/325 PO 1 tab Q6H PRN Administration Pain, Moderate (4-6) Pantoprazole Sodium 40 mg 11/05/18 10:00 11/11/18 10:01 Protonix IV 40 mg DAILY RICK Administration Phenol 1 spray 10/28/18 10:16 Chloraseptic MM PRN PRN Sore Throat Promethazine HCl 25 mg 10/22/18 20:10 10/22/18 21:21 Phenergan IN 25 mg Q6H PRN Administration Nausea And Vomiting Simple Syrup 15 ml 11/05/18 10:13 Simple Syrup FEEDTUBE PRN PRN Hypoglycemia Simple Syrup 30 ml 11/05/18 10:13 Simple Syrup FEEDTUBE PRN PRN Hypoglycemia Sodium Bicarbonate 325 mg 11/05/18 10:13 Sodium Bicarbonate FEEDTUBE PRN PRN For Clogged Feeding Tube Sodium Chloride 10 ml 10/22/18 22:00 11/12/18 03:50 Sodium Chloride Flush Syringe 10 Ml IV 10 ml BID RICK Administration Sodium Chloride 10 ml 10/22/18 20:10 11/09/18 14:29 Sodium Chloride Flush Syringe 10 Ml IV 10 ml PRN PRN Administration LINE FLUSH
[2018-11-12] MEDS: BROVANA NEBU IH SCH ×2 (08:19→19:30)
[2018-11-12] MEDS: PULMICORT IH SCH ×2 (08:19→19:30)
--- NOTE | 2018-11-12 09:05 | Progress Note ---
Assessment and Plan ARF , failure to wean off ,prolonged vent support. Sepsis/Fungemia. On antibiotics, suspected secondary to PICC line Bilateral upper lobe pneumonia. Complete antibiotics. Persistent Infiltrate on the left base that could be either pleural effusion, atelectasis/consolation Partial bowel obstruction, perforation. Improved Compensated respiratory acidosis improved Chronic pain medications, anti-psychotic therapy. Progressively increased demand for narcotics in the context of hypercapnic failure, chronic Thrombocytopenia. Improved PAT, tachy-bradycardia episodes. Improved today. Interestingly, been mobilized for wound care during examination Hypertension, COPD. On nebs.mild wheezing Rec We'll update chest CT scan with contrast for further review Tracheotomy scheduled by surgery tomorrow. She has some diarrhea today. We'll hold nutrition anyway prior to surgery, consider rectal tube if okay with surgery and monitor diarrhea while nothing by mouth SBT in the morning off sedation daily in a.m. Continue nebulizer therapy We started her back on Seroquel and I'm going to add low-dose stay next for anxiety. Also will adjust narcotics but I'll let the patient and family know that we will need to split dose such in order to minimize ventilatory problems, hypoventilation with hypercapnic failure Long-term placement planning Complete antibiotics as scheduled Physical therapy Discussed with patient,spouse and staff in detail. All questions answered. Critical care time was 31 minutes of [id number] evaluation and coordination of care Subjective Date of service: 11/12/18 Principal diagnosis: respiratory failure/MV Interval history: No events overnight. No shortness of breath. Per nursing report, patient demanding narcotics almost hourly for "generalized pain". Objective Vital Signs - 12hr 11/11/18 11/11/18 11/11/18 21:30 22:00 22:30 Temperature Pulse Rate 112 H 112 H 109 H Pulse Rate [ Anterior Bilateral] Respiratory 15 18 21 Rate Respiratory Rate [Anterior Bilateral] Blood Pressure 105/45 111/41 112/48 O2 Sat by Pulse 95 95 Oximetry 11/11/18 11/11/18 11/12/18 23:00 23:30 00:00 Temperature 98.9 F Pulse Rate 105 H 106 H 109 H Pulse Rate [ Anterior Bilateral] Respiratory 22 22 23 Rate Respiratory Rate [Anterior Bilateral] Blood Pressure 109/43 106/47 106/51 O2 Sat by Pulse 96 96 95 Oximetry 11/12/18 11/12/18 11/12/18 00:30 01:00 01:30 Temperature Pulse Rate 121 H 114 H 108 H Pulse Rate [ Anterior Bilateral] Respiratory 16 17 20 Rate Respiratory Rate [Anterior Bilateral] Blood Pressure 107/53 115/44 106/48 O2 Sat by Pulse 95 95 95 Oximetry 11/12/18 11/12/18 11/12/18 02:00 02:30 03:00 Temperature Pulse Rate 132 H 122 H 126 H Pulse Rate [ Anterior Bilateral] Respiratory 22 16 15 Rate Respiratory Rate [Anterior Bilateral] Blood Pressure 118/53 116/44 101/55 O2 Sat by Pulse 96 96 95 Oximetry 11/12/18 11/12/18 11/12/18 03:30 03:45 03:55 Temperature 98.8 F Pulse Rate 122 H 125 H Pulse Rate [ Anterior Bilateral] Respiratory 17 Rate Respiratory Rate [Anterior Bilateral] Blood Pressure 103/49 140/53 O2 Sat by Pulse 97 Oximetry 11/12/18 11/12/18 11/12/18 04:00 04:30 04:41 Temperature Pulse Rate 111 H 116 H 113 H Pulse Rate [ Anterior Bilateral] Respiratory 17 18 Rate Respiratory Rate [Anterior Bilateral] Blood Pressure 103/46 118/46 118/46 O2 Sat by Pulse 96 95 98 Oximetry 11/12/18 11/12/18 11/12/18 05:00 05:30 06:00 Temperature Pulse Rate 107 H 113 H 136 H Pulse Rate [ Anterior Bilateral] Respiratory 19 17 19 Rate Respiratory Rate [Anterior Bilateral] Blood Pressure 111/46 112/64 110/41 O2 Sat by Pulse 99 98 99 Oximetry 11/12/18 11/12/18 11/12/18 06:30 07:00 07:30 Temperature Pulse Rate 110 H 123 H 128 H Pulse Rate [ Anterior Bilateral] Respiratory 20 18 18 Rate Respiratory Rate [Anterior Bilateral] Blood Pressure 112/45 121/42 121/42 O2 Sat by Pulse 98 98 97 Oximetry 11/12/18 11/12/18 11/12/18 08:00 08:21 08:30 Temperature 98.9 F Pulse Rate 129 H 121 H Pulse Rate [ 127 H Anterior Bilateral] Respiratory 23 21 Rate Respiratory 18 Rate [Anterior Bilateral] Blood Pressure 118/52 125/49 O2 Sat by Pulse 97 96 Oximetry Constitutional: alert, appears uncomfortable Eyes: non-icteric ENT: other (orally intubated) Neck: supple, no JVD Effort: mildly labored Ascultation: Bilateral: clear, rhonchi (sporadic) Percussion: Bilateral: not dull Cardiovascular: regular rate and rhythm (mild tachycardia, 106 BPM) Gastrointestinal: hypoactive bowel sounds, non-tender, non-distended, other Integumentary: normal Extremities: no edema Neurologic: normal mental status, non-focal exam Psychiatric: anxious CBC and BMP: 11/11/18 05:50 11/11/18 05:50 ABG, PT/INR, D-dimer: ABG POC ABG pH 7.447 (7.35-7.45) 11/11/18 04:43 POC ABG pCO2 50.1 (35-45) H 11/11/18 04:43 POC ABG pO2 100 (80-105) 11/11/18 04:43 POC ABG HCO3 34.5 (22-26 mml/L) 11/11/18 04:43 POC ABG Total CO2 36 (23-27mmol/L) 11/11/18 04:43 POC ABG O2 Sat 98 11/11/18 04:43 Abnormal lab findings: Abnormal Labs 10/22/18 10/22/18 10/22/18 15:31 15:54 15:54 WBC 11.5 H RBC 5.35 H Hgb 17.4 H Hct 50.3 H MCV MCH 33 H MCHC 35 H Plt Count Lymph % (Auto) 12.6 L [place] % (Auto) 14.8 H Lymph # [place] # 1.7 H Seg Neutrophils % 72.5 H Seg Neuts % (Manual) Lymphocytes % (Manual) Seg Neutrophils # 8.3 H Seg Neutrophils # Man Lymphocytes # (Manual) POC ABG pH POC ABG pCO2 POC ABG pO2 Sodium 134 L Potassium Chloride 88.1 L Carbon Dioxide BUN 51 H Creatinine 2.1 H Glucose 166 H POC Glucose Calcium Phosphorus Magnesium Alkaline Phosphatase NT-Pro-B Natriuret Pep Total Protein Albumin 3.4 L Lipase 10 L Free T4 10/23/18 10/23/18 10/23/18 04:32 04:32 10:53 WBC RBC Hgb Hct MCV MCH MCHC Plt Count Lymph % (Auto) 10.2 L [place] % (Auto) 14.7 H Lymph # 0.7 L [place] # 1.0 H Seg Neutrophils % 74.9 H Seg Neuts % (Manual) Lymphocytes % (Manual) Seg Neutrophils # Seg Neutrophils # Man Lymphocytes # (Manual) POC ABG pH POC ABG pCO2 POC ABG pO2 Sodium Potassium 3.1 L D 3.5 L Chloride Carbon Dioxide BUN 41 H 37 H Creatinine Glucose 111 H 110 H POC Glucose Calcium 8.1 L 8.1 L Phosphorus Magnesium Alkaline Phosphatase NT-Pro-B Natriuret Pep Total Protein Albumin Lipase Free T4 10/24/18 10/24/18 10/25/18 05:34 05:34 04:51 WBC RBC Hgb Hct MCV MCH MCHC Plt Count Lymph % (Auto) [place] % (Auto) Lymph # [place] # Seg Neutrophils % Seg Neuts % (Manual) Lymphocytes % (Manual) Seg Neutrophils # Seg Neutrophils # Man Lymphocytes # (Manual) POC ABG pH POC ABG pCO2 POC ABG pO2 Sodium Potassium 3.2 L 3.1 L Chloride 109.8 H 114.2 H Carbon Dioxide 17 L D BUN 21 H Creatinine Glucose 134 H 171 H POC Glucose Calcium 7.7 L 7.0 L Phosphorus 0.80 L* Magnesium Alkaline Phosphatase NT-Pro-B Natriuret Pep Total Protein Albumin Lipase Free T4 10/25/18 10/26/18 10/26/18 06:07 02:58 04:57 WBC RBC Hgb Hct MCV 99 H MCH 33 H MCHC Plt Count Lymph % (Auto) [place] % (Auto) Lymph # [place] # Seg Neutrophils % Seg Neuts % (Manual) Lymphocytes % (Manual) Seg Neutrophils # Seg Neutrophils # Man Lymphocytes # (Manual) POC ABG pH 7.090 L 7.320 L POC ABG pCO2 65.0 H 32.8 L POC ABG pO2 76 L Sodium Potassium Chloride Carbon Dioxide BUN Creatinine Glucose POC Glucose Calcium Phosphorus Magnesium Alkaline Phosphatase NT-Pro-B Natriuret Pep Total Protein Albumin Lipase Free T4 10/26/18 10/26/18 10/26/18 06:03 06:03 11:52 WBC 23.8 H RBC Hgb 15.4 H Hct 46.1 H D MCV MCH MCHC Plt Count Lymph % (Auto) [place] % (Auto) Lymph # [place] # Seg Neutrophils % Seg Neuts % (Manual) Lymphocytes % (Manual) Seg Neutrophils # Seg Neutrophils # Man Lymphocytes # (Manual) POC ABG pH POC ABG pCO2 POC ABG pO2 Sodium Potassium Chloride 109.5 H Carbon Dioxide 18 L BUN Creatinine Glucose 128 H POC Glucose 117 H Calcium 8.3 L D Phosphorus Magnesium Alkaline Phosphatase NT-Pro-B Natriuret Pep Total Protein Albumin Lipase Free T4 10/26/18 10/26/18 10/26/18 13:54 17:10 17:32 WBC RBC Hgb Hct MCV MCH MCHC Plt Count Lymph % (Auto) [place] % (Auto) Lymph # [place] # Seg Neutrophils % Seg Neuts % (Manual) Lymphocytes % (Manual) Seg Neutrophils # Seg Neutrophils # Man Lymphocytes # (Manual) POC ABG pH 7.215 L POC ABG pCO2 31.8 L POC ABG pO2 69 L 204 H Sodium Potassium 3.0 L D Chloride 114.5 H Carbon Dioxide 21 L BUN Creatinine Glucose POC Glucose Calcium 7.6 L Phosphorus Magnesium 1.40 L Alkaline Phosphatase NT-Pro-B Natriuret Pep Total Protein Albumin Lipase Free T4 10/26/18 10/27/18 10/27/18 23:13 00:40 01:09 WBC RBC Hgb Hct MCV MCH MCHC Plt Count Lymph % (Auto) [place] % (Auto) Lymph # [place] # Seg Neutrophils % Seg Neuts % (Manual) Lymphocytes % (Manual) Seg Neutrophils # Seg Neutrophils # Man Lymphocytes # (Manual) POC ABG pH POC ABG pCO2 POC ABG pO2 Sodium Potassium 3.4 L Chloride 115.0 H Carbon Dioxide 14 L D BUN Creatinine Glucose 228 H POC Glucose 48 L 264 H Calcium 7.1 L Phosphorus Magnesium Alkaline Phosphatase NT-Pro-B Natriuret Pep Total Protein Albumin Lipase Free T4 10/27/18 10/27/18 10/27/18 05:00 05:00 05:16 WBC 22.5 H RBC Hgb 14.7 H Hct 44.4 H MCV MCH MCHC Plt Count Lymph % (Auto) [place] % (Auto) Lymph # [place] # Seg Neutrophils % Seg Neuts % (Manual) Lymphocytes % (Manual) Seg Neutrophils # Seg Neutrophils # Man Lymphocytes # (Manual) POC ABG pH 7.304 L POC ABG pCO2 POC ABG pO2 116 H Sodium Potassium Chloride 118.4 H Carbon Dioxide 16 L BUN Creatinine Glucose 123 H POC Glucose Calcium 7.7 L Phosphorus Magnesium 2.60 H Alkaline Phosphatase NT-Pro-B Natriuret Pep Total Protein Albumin Lipase Free T4 10/28/18 10/28/18 10/28/18 04:25 04:25 15:37 WBC 23.5 H RBC Hgb Hct MCV MCH MCHC Plt Count Lymph % (Auto) [place] % (Auto) Lymph # [place] # Seg Neutrophils % Seg Neuts % (Manual) Lymphocytes % (Manual) Seg Neutrophils # Seg Neutrophils # Man Lymphocytes # (Manual) POC ABG pH POC ABG pCO2 POC ABG pO2 Sodium 147 H Potassium Chloride 116.9 H Carbon Dioxide 16 L BUN 23 H Creatinine Glucose POC Glucose 114 H Calcium 8.0 L Phosphorus Magnesium Alkaline Phosphatase NT-Pro-B Natriuret Pep Total Protein Albumin Lipase Free T4 10/28/18 10/28/18 10/28/18 20:33 22:07 23:31 WBC RBC Hgb Hct MCV MCH MCHC Plt Count Lymph % (Auto) [place] % (Auto) Lymph # [place] # Seg Neutrophils % Seg Neuts % (Manual) Lymphocytes % (Manual) Seg Neutrophils # Seg Neutrophils # Man Lymphocytes # (Manual) POC ABG pH 7.202 L 7.235 L POC ABG pCO2 POC ABG pO2 71 L Sodium Potassium Chloride Carbon Dioxide BUN Creatinine Glucose POC Glucose 207 H Calcium Phosphorus Magnesium Alkaline Phosphatase NT-Pro-B Natriuret Pep Total Protein Albumin Lipase Free T4 10/29/18 10/29/18 10/29/18 04:30 04:30 05:26 WBC 21.1 H RBC Hgb Hct MCV MCH MCHC Plt Count Lymph % (Auto) [place] % (Auto) Lymph # [place] # Seg Neutrophils % Seg Neuts % (Manual) 97.0 H Lymphocytes % (Manual) 3.0 L Seg Neutrophils # Seg Neutrophils # Man 20.5 H Lymphocytes # (Manual) 0.6 L POC ABG pH 7.305 L POC ABG pCO2 30.5 L POC ABG pO2 75 L Sodium 147 H Potassium 3.5 L Chloride 120.0 H Carbon Dioxide 17 L BUN 30 H Creatinine Glucose 246 H POC Glucose Calcium 7.9 L Phosphorus Magnesium Alkaline Phosphatase NT-Pro-B Natriuret Pep Total Protein Albumin Lipase Free T4 10/29/18 10/29/18 10/29/18 05:36 11:39 18:00 WBC RBC Hgb Hct MCV MCH MCHC Plt Count Lymph % (Auto) [place] % (Auto) Lymph # [place] # Seg Neutrophils % Seg Neuts % (Manual) Lymphocytes % (Manual) Seg Neutrophils # Seg Neutrophils # Man Lymphocytes # (Manual) POC ABG pH POC ABG pCO2 POC ABG pO2 Sodium Potassium Chloride Carbon Dioxide BUN Creatinine Glucose POC Glucose 204 H 224 H 221 H Calcium Phosphorus Magnesium Alkaline Phosphatase NT-Pro-B Natriuret Pep Total Protein Albumin Lipase Free T4 10/29/18 10/30/18 10/30/18 23:17 05:00 05:00 WBC 21.4 H RBC Hgb Hct MCV MCH MCHC Plt Count 134 L Lymph % (Auto) [place] % (Auto) Lymph # [place] # Seg Neutrophils % Seg Neuts % (Manual) 97.0 H Lymphocytes % (Manual) 3.0 L Seg Neutrophils # Seg Neutrophils # Man 20.8 H Lymphocytes # (Manual) 0.6 L POC ABG pH POC ABG pCO2 POC ABG pO2 Sodium 148 H Potassium 3.1 L Chloride 120.3 H Carbon Dioxide 18 L BUN 31 H Creatinine Glucose 205 H POC Glucose 181 H Calcium 8.0 L Phosphorus Magnesium Alkaline Phosphatase NT-Pro-B Natriuret Pep Total Protein Albumin Lipase Free T4 10/30/18 10/30/18 10/30/18 05:14 05:25 05:26 WBC RBC Hgb Hct MCV MCH MCHC Plt Count Lymph % (Auto) [place] % (Auto) Lymph # [place] # Seg Neutrophils % Seg Neuts % (Manual) Lymphocytes % (Manual) Seg Neutrophils # Seg Neutrophils # Man Lymphocytes # (Manual) POC ABG pH 7.296 L 7.245 L POC ABG pCO2 31.1 L POC ABG pO2 54 L 59 L Sodium Potassium Chloride Carbon Dioxide BUN Creatinine Glucose POC Glucose 199 H Calcium Phosphorus Magnesium Alkaline Phosphatase NT-Pro-B Natriuret Pep Total Protein Albumin Lipase Free T4 10/30/18 10/30/18 10/31/18 13:23 18:25 00:22 WBC RBC Hgb Hct MCV MCH MCHC Plt Count Lymph % (Auto) [place] % (Auto) Lymph # [place] # Seg Neutrophils % Seg Neuts % (Manual) Lymphocytes % (Manual) Seg Neutrophils # Seg Neutrophils # Man Lymphocytes # (Manual) POC ABG pH POC ABG pCO2 POC ABG pO2 Sodium Potassium Chloride Carbon Dioxide BUN Creatinine Glucose POC Glucose 146 H 158 H 162 H Calcium Phosphorus Magnesium Alkaline Phosphatase NT-Pro-B Natriuret Pep Total Protein Albumin Lipase Free T4 10/31/18 10/31/18 10/31/18 04:39 05:14 07:05 WBC RBC Hgb Hct MCV MCH MCHC Plt Count Lymph % (Auto) [place] % (Auto) Lymph # [place] # Seg Neutrophils % Seg Neuts % (Manual) Lymphocytes % (Manual) Seg Neutrophils # Seg Neutrophils # Man Lymphocytes # (Manual) POC ABG pH 7.238 L POC ABG pCO2 POC ABG pO2 Sodium Potassium Chloride 115.8 H Carbon Dioxide 18 L BUN 39 H Creatinine 1.3 H Glucose 167 H POC Glucose 145 H Calcium 7.5 L Phosphorus 1.80 L Magnesium Alkaline Phosphatase NT-Pro-B Natriuret Pep Total Protein Albumin Lipase Free T4 10/31/18 10/31/18 10/31/18 10:43 12:03 17:00 WBC RBC Hgb Hct MCV MCH MCHC Plt Count Lymph % (Auto) [place] % (Auto) Lymph # [place] # Seg Neutrophils % Seg Neuts % (Manual) Lymphocytes % (Manual) Seg Neutrophils # Seg Neutrophils # Man Lymphocytes # (Manual) POC ABG pH 7.304 L POC ABG pCO2 33.3 L POC ABG pO2 Sodium Potassium Chloride Carbon Dioxide BUN Creatinine Glucose POC Glucose 159 H Calcium Phosphorus Magnesium Alkaline Phosphatase NT-Pro-B Natriuret Pep Total Protein Albumin Lipase Free T4 0.49 L 10/31/18 11/01/18 11/01/18 17:00 00:44 05:27 WBC RBC Hgb Hct MCV MCH MCHC Plt Count Lymph % (Auto) [place] % (Auto) Lymph # [place] # Seg Neutrophils % Seg Neuts % (Manual) Lymphocytes % (Manual) Seg Neutrophils # Seg Neutrophils # Man Lymphocytes # (Manual) POC ABG pH 7.248 L POC ABG pCO2 34.8 L POC ABG pO2 135 H Sodium Potassium Chloride Carbon Dioxide BUN Creatinine Glucose POC Glucose 127 H 118 H Calcium Phosphorus Magnesium Alkaline Phosphatase NT-Pro-B Natriuret Pep Total Protein Albumin Lipase Free T4 11/01/18 11/01/18 11/01/18 06:40 06:40 06:53 WBC 18.9 H RBC 3.63 L Hgb Hct MCV MCH MCHC Plt Count 64 L Lymph % (Auto) [place] % (Auto) Lymph # [place] # Seg Neutrophils % Seg Neuts % (Manual) 98.0 H Lymphocytes % (Manual) 1.0 L Seg Neutrophils # Seg Neutrophils # Man 18.5 H Lymphocytes # (Manual) 0.2 L POC ABG pH POC ABG pCO2 POC ABG pO2 Sodium Potassium 3.5 L Chloride 114.2 H Carbon Dioxide 17 L BUN 49 H Creatinine Glucose 107 H POC Glucose 127 H Calcium 7.3 L Phosphorus Magnesium 1.60 L Alkaline Phosphatase NT-Pro-B Natriuret Pep Total Protein Albumin Lipase Free T4 11/01/18 11/01/18 11/01/18 11:49 13:13 17:24 WBC RBC Hgb Hct MCV MCH MCHC Plt Count Lymph % (Auto) [place] % (Auto) Lymph # [place] # Seg Neutrophils % Seg Neuts % (Manual) Lymphocytes % (Manual) Seg Neutrophils # Seg Neutrophils # Man Lymphocytes # (Manual) POC ABG pH POC ABG pCO2 POC ABG pO2 182 H Sodium Potassium Chloride Carbon Dioxide BUN Creatinine Glucose POC Glucose 134 H 111 H Calcium Phosphorus Magnesium Alkaline Phosphatase NT-Pro-B Natriuret Pep Total Protein Albumin Lipase Free T4 11/01/18 11/02/18 11/02/18 23:07 04:32 05:00 WBC RBC Hgb Hct MCV MCH MCHC Plt Count Lymph % (Auto) [place] % (Auto) Lymph # [place] # Seg Neutrophils % Seg Neuts % (Manual) Lymphocytes % (Manual) Seg Neutrophils # Seg Neutrophils # Man Lymphocytes # (Manual) POC ABG pH 7.244 L POC ABG pCO2 33.2 L POC ABG pO2 123 H Sodium Potassium 3.0 L Chloride 114.1 H Carbon Dioxide 15 L BUN 47 H Creatinine Glucose 127 H POC Glucose 123 H Calcium 7.7 L Phosphorus Magnesium Alkaline Phosphatase NT-Pro-B Natriuret Pep Total Protein Albumin Lipase Free T4 11/02/18 11/02/18 11/02/18 05:00 05:29 11:27 WBC RBC Hgb Hct MCV MCH MCHC Plt Count Lymph % (Auto) [place] % (Auto) Lymph # [place] # Seg Neutrophils % Seg Neuts % (Manual) Lymphocytes % (Manual) Seg Neutrophils # Seg Neutrophils # Man Lymphocytes # (Manual) POC ABG pH POC ABG pCO2 POC ABG pO2 Sodium Potassium Chloride Carbon Dioxide BUN Creatinine Glucose POC Glucose 118 H 137 H Calcium Phosphorus Magnesium 1.60 L Alkaline Phosphatase NT-Pro-B Natriuret Pep Total Protein Albumin Lipase Free T4 11/02/18 11/02/18 11/03/18 12:53 23:35 04:14 WBC RBC Hgb Hct MCV MCH MCHC Plt Count Lymph % (Auto) [place] % (Auto) Lymph # [place] # Seg Neutrophils % Seg Neuts % (Manual) Lymphocytes % (Manual) Seg Neutrophils # Seg Neutrophils # Man Lymphocytes # (Manual) POC ABG pH POC ABG pCO2 30.3 L POC ABG pO2 134 H 129 H Sodium Potassium Chloride Carbon Dioxide BUN Creatinine Glucose POC Glucose 115 H Calcium Phosphorus Magnesium Alkaline Phosphatase NT-Pro-B Natriuret Pep Total Protein Albumin Lipase Free T4 11/03/18 11/03/18 11/03/18 05:34 11:30 11:30 WBC 16.4 H RBC 3.50 L Hgb Hct MCV MCH MCHC Plt Count 136 L D Lymph % (Auto) [place] % (Auto) Lymph # [place] # Seg Neutrophils % Seg Neuts % (Manual) 97.0 H Lymphocytes % (Manual) 2.0 L Seg Neutrophils # Seg Neutrophils # Man 15.9 H Lymphocytes # (Manual) 0.3 L POC ABG pH POC ABG pCO2 POC ABG pO2 Sodium Potassium 3.1 L Chloride 110.4 H Carbon Dioxide 17 L BUN 41 H Creatinine Glucose 129 H POC Glucose 116 H Calcium 7.7 L Phosphorus Magnesium 1.60 L Alkaline Phosphatase NT-Pro-B Natriuret Pep Total Protein 4.2 L Albumin 1.2 L Lipase Free T4 11/03/18 11/03/18 11/03/18 12:01 17:35 21:37 WBC RBC Hgb Hct MCV MCH MCHC Plt Count Lymph % (Auto) [place] % (Auto) Lymph # [place] # Seg Neutrophils % Seg Neuts % (Manual) Lymphocytes % (Manual) Seg Neutrophils # Seg Neutrophils # Man Lymphocytes # (Manual) POC ABG pH POC ABG pCO2 POC ABG pO2 Sodium Potassium Chloride Carbon Dioxide BUN Creatinine Glucose POC Glucose 132 H 132 H 126 H Calcium Phosphorus Magnesium Alkaline Phosphatase NT-Pro-B Natriuret Pep Total Protein Albumin Lipase Free T4 11/03/18 11/04/18 11/04/18 23:30 05:14 05:15 WBC RBC Hgb Hct MCV MCH MCHC Plt Count Lymph % (Auto) [place] % (Auto) Lymph # [place] # Seg Neutrophils % Seg Neuts % (Manual) Lymphocytes % (Manual) Seg Neutrophils # Seg Neutrophils # Man Lymphocytes # (Manual) POC ABG pH POC ABG pCO2 30.9 L POC ABG pO2 192 H Sodium Potassium Chloride Carbon Dioxide BUN Creatinine Glucose POC Glucose 115 H 123 H Calcium Phosphorus Magnesium Alkaline Phosphatase NT-Pro-B Natriuret Pep Total Protein Albumin Lipase Free T4 11/04/18 11/04/18 11/04/18 09:39 09:39 11:43 WBC 15.2 H RBC 3.18 L Hgb Hct 29.9 L MCV MCH MCHC Plt Count Lymph % (Auto) [place] % (Auto) Lymph # [place] # Seg Neutrophils % Seg Neuts % (Manual) 98.0 H Lymphocytes % (Manual) 1.0 L Seg Neutrophils # Seg Neutrophils # Man 14.9 H Lymphocytes # (Manual) 0.2 L POC ABG pH POC ABG pCO2 POC ABG pO2 Sodium 135 L D Potassium Chloride 109.5 H Carbon Dioxide 16 L BUN 46 H Creatinine Glucose 136 H POC Glucose 138 H Calcium 8.0 L Phosphorus Magnesium Alkaline Phosphatase NT-Pro-B Natriuret Pep Total Protein Albumin Lipase Free T4 11/04/18 11/04/18 11/05/18 17:31 23:42 05:23 WBC RBC Hgb Hct MCV MCH MCHC Plt Count Lymph % (Auto) [place] % (Auto) Lymph # [place] # Seg Neutrophils % Seg Neuts % (Manual) Lymphocytes % (Manual) Seg Neutrophils # Seg Neutrophils # Man Lymphocytes # (Manual) POC ABG pH POC ABG pCO2 POC ABG pO2 Sodium Potassium Chloride Carbon Dioxide BUN Creatinine Glucose POC Glucose 139 H 138 H 148 H Calcium Phosphorus Magnesium Alkaline Phosphatase NT-Pro-B Natriuret Pep Total Protein Albumin Lipase Free T4 11/05/18 11/05/18 11/05/18 05:30 05:30 11:46 WBC 14.2 H RBC 3.12 L Hgb 10.0 L Hct 29.1 L MCV MCH MCHC Plt Count Lymph % (Auto) [place] % (Auto) Lymph # [place] # Seg Neutrophils % Seg Neuts % (Manual) Lymphocytes % (Manual) Seg Neutrophils # Seg Neutrophils # Man Lymphocytes # (Manual) POC ABG pH POC ABG pCO2 POC ABG pO2 Sodium Potassium Chloride Carbon Dioxide 21 L BUN 42 H Creatinine Glucose 125 H POC Glucose 157 H Calcium 7.9 L Phosphorus Magnesium Alkaline Phosphatase NT-Pro-B Natriuret Pep Total Protein Albumin Lipase Free T4 11/05/18 11/05/18 11/05/18 17:09 20:03 23:43 WBC RBC Hgb Hct MCV MCH MCHC Plt Count Lymph % (Auto) [place] % (Auto) Lymph # [place] # Seg Neutrophils % Seg Neuts % (Manual) Lymphocytes % (Manual) Seg Neutrophils # Seg Neutrophils # Man Lymphocytes # (Manual) POC ABG pH POC ABG pCO2 POC ABG pO2 76 L Sodium Potassium Chloride Carbon Dioxide BUN Creatinine Glucose POC Glucose 142 H 204 H Calcium Phosphorus Magnesium Alkaline Phosphatase NT-Pro-B Natriuret Pep Total Protein Albumin Lipase Free T4 11/06/18 11/06/18 11/06/18 04:21 12:14 17:17 WBC RBC Hgb Hct MCV MCH MCHC Plt Count Lymph % (Auto) [place] % (Auto) Lymph # [place] # Seg Neutrophils % Seg Neuts % (Manual) Lymphocytes % (Manual) Seg Neutrophils # Seg Neutrophils # Man Lymphocytes # (Manual) POC ABG pH POC ABG pCO2 POC ABG pO2 Sodium 133 L Potassium Chloride Carbon Dioxide 18 L BUN 47 H Creatinine Glucose 187 H POC Glucose 232 H 199 H Calcium 7.8 L Phosphorus 5.30 H D Magnesium 2.50 H Alkaline Phosphatase NT-Pro-B Natriuret Pep Total Protein Albumin Lipase Free T4 11/06/18 11/06/18 11/07/18 19:46 23:30 00:00 WBC RBC Hgb Hct MCV MCH MCHC Plt Count Lymph % (Auto) [place] % (Auto) Lymph # [place] # Seg Neutrophils % Seg Neuts % (Manual) Lymphocytes % (Manual) Seg Neutrophils # Seg Neutrophils # Man Lymphocytes # (Manual) POC ABG pH 7.317 L POC ABG pCO2 50.3 H POC ABG pO2 58 L 57 L Sodium Potassium Chloride Carbon Dioxide BUN Creatinine Glucose POC Glucose 224 H Calcium Phosphorus Magnesium Alkaline Phosphatase NT-Pro-B Natriuret Pep Total Protein Albumin Lipase Free T4 11/07/18 11/07/18 11/07/18 04:55 04:55 04:55 WBC 25.2 H RBC 3.64 L Hgb Hct MCV MCH MCHC Plt Count Lymph % (Auto) [place] % (Auto) Lymph # [place] # Seg Neutrophils % Seg Neuts % (Manual) Lymphocytes % (Manual) Seg Neutrophils # Seg Neutrophils # Man Lymphocytes # (Manual) POC ABG pH POC ABG pCO2 POC ABG pO2 Sodium Potassium Chloride Carbon Dioxide BUN 54 H Creatinine Glucose 270 H POC Glucose Calcium 7.9 L Phosphorus 5.00 H Magnesium Alkaline Phosphatase NT-Pro-B Natriuret Pep 4507 H Total Protein Albumin Lipase Free T4 11/07/18 11/07/18 11/07/18 05:46 08:08 11:52 WBC RBC Hgb Hct MCV MCH MCHC Plt Count Lymph % (Auto) [place] % (Auto) Lymph # [place] # Seg Neutrophils % Seg Neuts % (Manual) Lymphocytes % (Manual) Seg Neutrophils # Seg Neutrophils # Man Lymphocytes # (Manual) POC ABG pH POC ABG pCO2 47.6 H POC ABG pO2 106 H Sodium Potassium Chloride Carbon Dioxide BUN Creatinine Glucose POC Glucose 266 H 323 H Calcium Phosphorus Magnesium Alkaline Phosphatase NT-Pro-B Natriuret Pep Total Protein Albumin Lipase Free T4 11/07/18 11/07/18 11/07/18 12:29 17:57 23:48 WBC RBC Hgb Hct MCV MCH MCHC Plt Count Lymph % (Auto) [place] % (Auto) Lymph # [place] # Seg Neutrophils % Seg Neuts % (Manual) Lymphocytes % (Manual) Seg Neutrophils # Seg Neutrophils # Man Lymphocytes # (Manual) POC ABG pH POC ABG pCO2 POC ABG pO2 Sodium Potassium Chloride Carbon Dioxide BUN Creatinine Glucose POC Glucose 325 H 286 H 231 H Calcium Phosphorus Magnesium Alkaline Phosphatase NT-Pro-B Natriuret Pep Total Protein Albumin Lipase Free T4 11/08/18 11/08/18 11/08/18 03:58 05:05 05:05 WBC 18.4 H RBC 3.20 L Hgb 10.0 L Hct 29.7 L MCV MCH MCHC Plt Count Lymph % (Auto) [place] % (Auto) Lymph # [place] # Seg Neutrophils % Seg Neuts % (Manual) Lymphocytes % (Manual) Seg Neutrophils # Seg Neutrophils # Man Lymphocytes # (Manual) POC ABG pH 7.524 H POC ABG pCO2 34.3 L POC ABG pO2 Sodium Potassium Chloride Carbon Dioxide BUN 61 H Creatinine Glucose 253 H POC Glucose Calcium 7.6 L Phosphorus Magnesium Alkaline Phosphatase NT-Pro-B Natriuret Pep Total Protein Albumin Lipase Free T4 11/08/18 11/08/18 11/08/18 05:28 11:28 18:21 WBC RBC Hgb Hct MCV MCH MCHC Plt Count Lymph % (Auto) [place] % (Auto) Lymph # [place] # Seg Neutrophils % Seg Neuts % (Manual) Lymphocytes % (Manual) Seg Neutrophils # Seg Neutrophils # Man Lymphocytes # (Manual) POC ABG pH POC ABG pCO2 POC ABG pO2 Sodium Potassium Chloride Carbon Dioxide BUN Creatinine Glucose POC Glucose 295 H 253 H 225 H Calcium Phosphorus Magnesium Alkaline Phosphatase NT-Pro-B Natriuret Pep Total Protein Albumin Lipase Free T4 11/09/18 11/09/18 11/09/18 00:57 04:06 06:06 WBC RBC Hgb Hct MCV MCH MCHC Plt Count Lymph % (Auto) [place] % (Auto) Lymph # [place] # Seg Neutrophils % Seg Neuts % (Manual) Lymphocytes % (Manual) Seg Neutrophils # Seg Neutrophils # Man Lymphocytes # (Manual) POC ABG pH 7.509 H POC ABG pCO2 POC ABG pO2 Sodium Potassium Chloride Carbon Dioxide BUN Creatinine Glucose POC Glucose 218 H 199 H Calcium Phosphorus Magnesium Alkaline Phosphatase NT-Pro-B Natriuret Pep Total Protein Albumin Lipase Free T4 11/09/18 11/09/18 11/09/18 06:51 06:51 12:07 WBC 13.5 H RBC 2.97 L Hgb 9.3 L Hct 27.6 L MCV MCH MCHC Plt Count Lymph % (Auto) [place] % (Auto) Lymph # [place] # Seg Neutrophils % Seg Neuts % (Manual) Lymphocytes % (Manual) Seg Neutrophils # Seg Neutrophils # Man Lymphocytes # (Manual) POC ABG pH POC ABG pCO2 POC ABG pO2 Sodium Potassium Chloride 96.5 L Carbon Dioxide 32 H BUN 58 H Creatinine Glucose 191 H POC Glucose 212 H Calcium 7.5 L Phosphorus Magnesium Alkaline Phosphatase NT-Pro-B Natriuret Pep Total Protein Albumin Lipase Free T4 11/09/18 11/10/18 11/10/18 18:29 00:09 04:21 WBC RBC Hgb Hct MCV MCH MCHC Plt Count Lymph % (Auto) [place] % (Auto) Lymph # [place] # Seg Neutrophils % Seg Neuts % (Manual) Lymphocytes % (Manual) Seg Neutrophils # Seg Neutrophils # Man Lymphocytes # (Manual) POC ABG pH 7.467 H POC ABG pCO2 49.9 H POC ABG pO2 76 L Sodium Potassium Chloride Carbon Dioxide BUN Creatinine Glucose POC Glucose 192 H 214 H Calcium Phosphorus Magnesium Alkaline Phosphatase NT-Pro-B Natriuret Pep Total Protein Albumin Lipase Free T4 11/10/18 11/10/18 11/10/18 04:39 04:39 06:05 WBC 14.3 H RBC 3.09 L Hgb 9.7 L Hct 28.9 L MCV MCH MCHC Plt Count Lymph % (Auto) [place] % (Auto) Lymph # [place] # Seg Neutrophils % Seg Neuts % (Manual) Lymphocytes % (Manual) Seg Neutrophils # Seg Neutrophils # Man Lymphocytes # (Manual) POC ABG pH POC ABG pCO2 POC ABG pO2 Sodium Potassium Chloride 97.5 L Carbon Dioxide 31 H BUN 53 H Creatinine Glucose 196 H POC Glucose 202 H Calcium 7.7 L Phosphorus Magnesium Alkaline Phosphatase NT-Pro-B Natriuret Pep Total Protein Albumin Lipase Free T4 11/10/18 11/10/18 11/11/18 12:32 17:16 00:06 WBC RBC Hgb Hct MCV MCH MCHC Plt Count Lymph % (Auto) [place] % (Auto) Lymph # [place] # Seg Neutrophils % Seg Neuts % (Manual) Lymphocytes % (Manual) Seg Neutrophils # Seg Neutrophils # Man Lymphocytes # (Manual) POC ABG pH POC ABG pCO2 POC ABG pO2 Sodium Potassium Chloride Carbon Dioxide BUN Creatinine Glucose POC Glucose 197 H 200 H 177 H Calcium Phosphorus Magnesium Alkaline Phosphatase NT-Pro-B Natriuret Pep Total Protein Albumin Lipase Free T4 11/11/18 11/11/18 11/11/18 04:43 05:24 05:50 WBC 14.1 H RBC 2.92 L Hgb 9.1 L Hct 27.0 L MCV MCH MCHC Plt Count Lymph % (Auto) [place] % (Auto) Lymph # [place] # Seg Neutrophils % Seg Neuts % (Manual) Lymphocytes % (Manual) Seg Neutrophils # Seg Neutrophils # Man Lymphocytes # (Manual) POC ABG pH POC ABG pCO2 50.1 H POC ABG pO2 Sodium Potassium Chloride Carbon Dioxide BUN Creatinine Glucose POC Glucose 199 H Calcium Phosphorus Magnesium Alkaline Phosphatase NT-Pro-B Natriuret Pep Total Protein Albumin Lipase Free T4 11/11/18 11/11/18 11/11/18 05:50 12:00 17:57 WBC RBC Hgb Hct MCV MCH MCHC Plt Count Lymph % (Auto) [place] % (Auto) Lymph # [place] # Seg Neutrophils % Seg Neuts % (Manual) Lymphocytes % (Manual) Seg Neutrophils # Seg Neutrophils # Man Lymphocytes # (Manual) POC ABG pH POC ABG pCO2 POC ABG pO2 Sodium Potassium 3.5 L Chloride Carbon Dioxide 34 H BUN 47 H Creatinine 0.5 L Glucose 169 H POC Glucose 168 H 194 H Calcium 8.2 L Phosphorus Magnesium Alkaline Phosphatase 142 H NT-Pro-B Natriuret Pep Total Protein 4.4 L Albumin 2.1 L Lipase Free T4 11/11/18 11/12/18 23:26 05:32 WBC RBC Hgb Hct MCV MCH MCHC Plt Count Lymph % (Auto) [place] % (Auto) Lymph # [place] # Seg Neutrophils % Seg Neuts % (Manual) Lymphocytes % (Manual) Seg Neutrophils # Seg Neutrophils # Man Lymphocytes # (Manual) POC ABG pH POC ABG pCO2 POC ABG pO2 Sodium Potassium Chloride Carbon Dioxide BUN Creatinine Glucose POC Glucose 181 H 186 H Calcium Phosphorus Magnesium Alkaline Phosphatase NT-Pro-B Natriuret Pep Total Protein Albumin Lipase Free T4 Allied health notes reviewed: nursing
[2018-11-12] MEDS: PROTONIX IV SCH (09:11)
[2018-11-12] MEDS: ATIVAN IV PRN (09:26)
[2018-11-12] MEDS: MYCAMINE 100 MG in NACL 0.9% 100 ML IV SCH (09:31)
--- NOTE | 2018-11-12 10:35 | Progress Note ---
Assessment and Plan Cultures: Blood cultures 10/22/2018 no growth Tracheal asp cultures 10/28/2018: E.coli and Stenotrophomonas. 10/30/2018 blood culture: Ayla glabrata 11/03/2018 fungal blood culture: no growth thus far Assessment: 73 y/o female with history of COPD, hypertension, lupus, fibromyalgia, opioid dependence admitted on 10/22/2018 due to 3-day history of intractable nausea, vomiting, diarrhea: 1) SIRS v/s sepsis: fever resolved. Etiology initially most likely aspiration pneumonia +/- intra-abdominal source from contained gastric perforation, now also with Candidemia. 2) Candidemia due to Ayla glabrata: in the setting of TPN and PICC line. PICC removed. Has temporary central line. TTE not optimal quality, but repeat fungal blood cultures are negative, so no need for LAUREN. Continue IV Micafungin and f/u fungal blood cultures. 3) Acute respiratory failure: pneumonia and fluid overload. Extubated 11/05/2018 and now reintubated 11/07/2018. Planned for trach. 4) Presumed aspiration pneumonia v/s HAP: Tracheal asp cultures 10/28/2018 with E.coli and Stenotrophomonas. Stenotrophomonas is a known colonizer in patients with structural lung disease or tracheostomy tubes/ET tubes, not generally considered very virulent. Given her prolonged and complicated hospital stay, com pleted a 10 day course of abx. 5) Ileus v/s partial SBO and contained gastric perforation: Gen Surgery following. Planned for conservative management. Follow up CT showed no contrast leak. Now on tube feeds. 6) ADWOA: improved. Recommendations: - continue IV Micafungin complete 14 days from negative blood cultures until 11/16/2018 - Patient is now off TPN, hence recommend removing existing central line since it was placed during active candidemia. OK to insert new midline. Repeat fungal blood cultures have been negative. Discussed with MATI. Phong Joy MD [facility] C: [phone] O: [phone] F: [phone] Subjective Date of service: 11/12/18 Principal diagnosis: respiratory failure/MV Interval history: No fever. Planned for trach. Off TPN. Objective - Exam Narrative Exam: Physical Exam: Constitutional: awake, intubated, no distress Head, Ears, Nose: Normocephalic, atraumatic. External ears, nose normal Eyes: Conjunctivae/corneas clear. No icterus. No ptosis. Neck: intubated. RIJ central line + Oral: intubated Cardiovascular: S1, S2 normal, no murmur heard Respiratory: bilateral coarse sounds + GI: Soft, non-tender; bowel sounds +, No peritoneal signs Musculoskeletal: edema of all 4 ext improving Skin: No rash or abscess Hem/Lymphatic: No palpable cervical or supraclavicular nodes. No lymphangitis Psych: no agitation Neurological: awake, exam limited due to vent. - Constitutional Vitals: Vital Signs Temp Pulse Resp BP Pulse Ox 98.9 F 135 H 21 123/47 96 11/12/18 08:00 11/12/18 09:11 11/12/18 08:30 11/12/18 09:11 11/12/18 08:30 Temperature -Last 24 Hours Temperature 98.9 F Temperature 98.8 F Temperature 98.9 F Temperature 98.8 F Temperature 99.4 F Temperature 97.5 F - Labs CBC & Chem 7: 11/11/18 05:50 11/11/18 05:50 Labs: Abnormal lab results 11/11/18 11/11/18 11/11/18 Range/Units 12:00 17:57 23:26 POC Glucose 168 H 194 H 181 H (70-105) 11/12/18 11/12/18 Range/Units 05:32 09:26 POC Glucose 186 H 158 H (70-105) - Imaging and cardiology Chest x-ray: report reviewed, image reviewed (no significant interval change compared to yesterday. Persistent LLL opacity)
--- NOTE | 2018-11-12 11:05 | Progress Note ---
Assessment and Plan Pt remains intubated. Cont present cardiac management. The patient has been seen in conjunction with Dr. Stoner who agrees with the assessment and plan of care. - Patient Problems (1) Atrial tachycardia, paroxysmal Current Visit: Yes Status: Acute (2) Tachy-adama syndrome Current Visit: Yes Status: Acute (3) Acute respiratory failure Current Visit: Yes Status: Acute Qualifiers: Respiratory failure complication: hypoxia Qualified Code(s): J96.01 - Acute respiratory failure with hypoxia (4) Perforated gastric ulcer Current Visit: Yes Status: Acute (5) Intractable nausea and vomiting Current Visit: Yes Status: Acute (6) Partial small bowel obstruction Current Visit: Yes Status: Acute (7) COPD (chronic obstructive pulmonary disease) Current Visit: Yes Status: Chronic (8) History of hypertension Current Visit: Yes Status: Chronic (9) ADWOA (acute kidney injury) Current Visit: Yes Status: Acute (10) Hypokalemia Current Visit: Yes Status: Acute Subjective Date of service: 11/12/18 Principal diagnosis: respiratory failure/MV Interval history: pt remains intubated, in SR on tele. Objective Last Vital Signs Temp 98.9 F 11/12/18 08:00 Pulse 104 H 11/12/18 10:30 Resp 20 11/12/18 10:30 BP 118/51 11/12/18 10:30 Pulse Ox 99 11/12/18 10:30 - Physical Examination General: Other (intubated) HEENT: Positive: EOMI, Normocephaly, Mucus Membranes Moist Neck: Positive: neck supple, trachea midline Cardiac: Positive: Reg Rate and Rhythm, S1/S2 Lungs: Positive: Decreased Breath Sounds, Ventilated Respirations Neuro: Positive: Other (intubated) Abdomen: Positive: Soft. Negative: Tender Skin: Positive: Clear. Negative: Rash Musculoskeletal: Decreased Range of Motion, Normal Range of Motion Extremities: Present: normal. Absent: edema - Imaging and Cardiology EKG: image reviewed Echo: report reviewed (EF 50%, trace TR, minimal pericardial effusion. ) - EKG Sinus rhythms and dysrhythmias: sinus rhythm - Allied health notes Allied health notes reviewed: nursing
[2018-11-12] MEDS: NEURONTIN PO SCH ×3 (12:31→21:02)
--- NOTE | 2018-11-12 13:03 | Progress Note ---
Assessment and Plan Assessment and plan: Gastric perforation. Repeat CT scan on 10/30 revealed pSBO resolved, no evidence for bowel ischemia. Small contained gastric perforation at lesser curve. No gross free air or contrast extravasation. Surgery recommends conservative management with continuing NGT, NPO, gentle IVF and when necessary pain control. Will reimage stomach when pulm status is more stable to make sure there is no leak. Sepsis/candidemia. Etiology is due to Ayla glabrata. Patient with TPN and PICC line. PICC line removed. Repeat fungal cultures are negative. Continue IV micafungin and follow-up blood cultures. Removed current central line and inserted midline. Thrombocytopenia. Etiology likely secondary to sepsis. Hematology following. Bilateral upper lobe/aspiration pneumonia. Sputum culture positive for Escherichia coli and stenotrophomonas. Continue antibiotics per ID. Partial small bowel obstruction. Continue NGT per surgery. Acute exacerbation COPD. Scheduled Duo Nebs and Pulmicort; albuterol when necessary Acute hypoxic respiratory failure. Patient was reintubated on 10/28/18 and cu rrently on mechanical ventilation. Etiology secondary to COPD/pneumonia/sepsis. Extubated 11/05, re-intubated 11/07 He has been intubated 3 times now and trach has been recommended. Wean mechanical ventilation per pulmonary. Presumed aspiration pneumonia versus healthcare associated pneumonia. Tracheal aspirate cultures from 10/28 with Escherichia coli and stenotrophomonas. Completed antibiotics. Hypokalemia. Replete potassium as needed. Hypertension. IV hydralazine when necessary Lupus. Supportive care Fibromyalgia. supportive care History of opioid dependence ADWOA due to vasomotor nephropathy, now resolved The high probability of a clinically significant, sudden or life threatening deterioration of the [GI and respiratory] system(s) required my full and direct attention, intervention and personal management. The aggregate critical care time was [31] minutes. This time is in addition to time spent performing reported procedures but includes the following: [x] Data Review and interpretation [x] Patient assessment and monitoring of vital signs [x] Documentation [x] Medication orders and management History Interval history: Patient is 73-year-old female with history of hypertension, lupus, fibromyalgia, COPD, opioid dependence (follows Dr. Felix Muñiz at pain clinic) who presented to [facility] ED with complaints of intractable nausea, vomiting, diarrhea for 3 days. On initial presentation to the ED she was found to be tachycardiac with heart rate 113 BPM, leukocytosis with WBC 11.5, elevated BUN/Cr 51/2.1. Patient has history of COPD and at baseline does not require home oxygen use. She was admitted to [facility]. GI was consulted, she was evaluated. CT Abdomen revealed partial SBO versus ileus therefore surgeon consulted. Also patient became more short of breath, placed on BIPAP with no improvement then intubated 10/26/18 for acute resp failure and transferred to ICU. Obstruction series completed on 10/27 which showed improved but small bowel and stomach dilatation. Follow-up series on 10/28 showed no significant change since previous study. NG tube was removed due to patient not tolerating/refusing. Patient was placed back on BiPAP but decompensated on the night of 10/28/18 and had to be reintubate d. Patient currently on mechanical ventilation. Patient has had further complications now with findings consistent with contained gastric perforation on repeat CT scan 10/30, managed conservatively. She was extubated 11/05, re- intubated 11/07/18. This is 3rd intubation so Tracheostomy has been recommended and being planned. No PEG yet, for at least 2 weeks because of recent gastric perforation. Hospitalist Physical - Constitutional Vitals: Temp Pulse Resp BP Pulse Ox 98.0 F 104 H 17 126/47 99 11/12/18 12:00 11/12/18 12:00 11/12/18 12:00 11/12/18 12:00 11/12/18 12:00 General appearance: Present: other (intubated, opens eyes to commands) - EENT Eyes: Present: PERRL, EOM intact ENT: hearing intact, clear oral mucosa, dentition normal - Neck Neck: Present: supple, normal ROM - Respiratory Respiratory effort: normal Respiratory: bilateral: CTA - Cardiovascular Rhythm: regular Heart Sounds: Present: S1 & S2. Absent: gallop, rub - Extremities Extremities: no ischemia, No edema, Full ROM - Abdominal General gastrointestinal: soft, non-tender, non-distended, normal bowel sounds - Integumentary Integumentary: Present: clear, warm, dry - Neurologic Neurologic: CNII-XII intact, moves all extremities Results - Labs CBC & Chem 7: 11/11/18 05:50 11/11/18 05:50 Labs: Laboratory Last Values WBC 14.1 K/mm3 (4.5-11.0) H 11/11/18 05:50 RBC 2.92 M/mm3 (3.65-5.03) L 11/11/18 05:50 Hgb 9.1 gm/dl (10.1-14.3) L 11/11/18 05:50 Hct 27.0 % (30.3-42.9) L 11/11/18 05:50 MCV 93 fl (79-97) 11/11/18 05:50 MCH 31 pg (28-32) 11/11/18 05:50 MCHC 34 % (30-34) 11/11/18 05:50 RDW 14.5 % (13.2-15.2) 11/11/18 05:50 Plt Count 188 K/mm3 (140-440) 11/11/18 05:50 Lymph % (Auto) 10.2 % (13.4-35.0) L 10/23/18 04:32 [place] % (Auto) 14.7 % (0.0-7.3) H 10/23/18 04:32 Eos % (Auto) 0.1 % (0.0-4.3) 10/23/18 04:32 Baso % (Auto) 0.1 % (0.0-1.8) 10/23/18 04:32 Lymph # 0.7 K/mm3 (1.2-5.4) L 10/23/18 04:32 [place] # 1.0 K/mm3 (0.0-0.8) H 10/23/18 04:32 Eos # 0.0 K/mm3 (0.0-0.4) 10/23/18 04:32 Baso # 0.0 K/mm3 (0.0-0.1) 10/23/18 04:32 Add Manual Diff Complete 11/04/18 09:39 Total Counted 100 11/04/18 09:39 Seg Neutrophils % Mud Mixer 11/04/18 09:39 Seg Neuts % (Manual) 98.0 % (40.0-70.0) H 11/04/18 09:39 0 % 11/04/18 09:39 1.0 % (13.4-35.0) L 11/04/18 09:39 Reactive Lymphs % (Man) 0 % 11/04/18 09:39 0 % (0.0-7.3) 11/04/18 09:39 1.0 % (0.0-4.3) 11/04/18 09:39 0 % (0.0-1.8) 11/04/18 09:39 0 % 11/04/18 09:39 0 % 11/04/18 09:39 0 % 11/04/18 09:39 0 % 11/04/18 09:39 Nucleated RBC % Not Reportable 11/04/18 09:39 Seg Neutrophils # 5.2 K/mm3 (1.8-7.7) 10/23/18 04:32 Seg Neutrophils # Man 14.9 K/mm3 (1.8-7.7) H 11/04/18 09:39 Band Neutrophils # 0.0 K/mm3 11/04/18 09:39 0.2 K/mm3 (1.2-5.4) L 11/04/18 09:39 Abs React Lymphs (Man) 0.0 K/mm3 11/04/18 09:39 0.0 K/mm3 (0.0-0.8) 11/04/18 09:39 0.2 K/mm3 (0.0-0.4) 11/04/18 09:39 0.0 K/mm3 (0.0-0.1) 11/04/18 09:39 0.0 K/mm3 11/04/18 09:39 0.0 K/mm3 11/04/18 09:39 0.0 K/mm3 11/04/18 09:39 Blast Cells # 0.0 K/mm3 11/04/18 09:39 WBC Morphology Not Reportable 11/04/18 09:39 Hypersegmented Neuts Not Reportable 11/04/18 09:39 Hyposegmented Neuts Not Reportable 11/04/18 09:39 Hypogranular Neuts Not Reportable 11/04/18 09:39 Not Reportable 11/04/18 09:39 Not Reportable 11/04/18 09:39 Not Reportable 11/04/18 09:39 Not Reportable 11/04/18 09:39 Not Reportable 11/04/18 09:39 Not Reportable 11/04/18 09:39 Consistent w auto 11/04/18 09:39 Not Reportable 11/04/18 09:39 Plt Clumps, EDTA Not Reportable 11/04/18 09:39 Not Reportable 11/04/18 09:39 Not Reportable 11/04/18 09:39 Not Reportable 11/04/18 09:39 Plt Morphology Comment Not Reportable 11/04/18 09:39 RBC Morphology Normal 11/04/18 09:39 Dimorphic RBCs Not Reportable 11/04/18 09:39 Not Reportable 11/04/18 09:39 Not Reportable 11/04/18 09:39 Not Reportable 11/04/18 09:39 Not Reportable 11/04/18 09:39 Not Reportable 11/04/18 09:39 Not Reportable 11/04/18 09:39 Not Reportable 11/04/18 09:39 Not Reportable 11/04/18 09:39 Not Reportable 11/04/18 09:39 Not Reportable 11/04/18 09:39 Not Reportable 11/04/18 09:39 Not Reportable 11/04/18 09:39 Not Reportable 11/04/18 09:39 Not Reportable 11/04/18 09:39 Not Reportable 11/04/18 09:39 Not Reportable 11/04/18 09:39 Not Reportable 11/04/18 09:39 Not Reportable 11/04/18 09:39 Not Reportable 11/04/18 09:39 Acanthocytes (Spur) Not Reportable 11/04/18 09:39 Rouleaux Not Reportable 11/04/18 09:39 Not Reportable 11/04/18 09:39 Not Reportable 11/04/18 09:39 Not Reportable 11/04/18 09:39 Not Reportable 11/04/18 09:39 Hem Pathologist Commnt No 11/04/18 09:39 Heparin Anti-Xa, Unfract Negative (Negative) 10/30/18 13:58 POC ABG pH 7.447 (7.35-7.45) 11/11/18 04:43 POC ABG pCO2 50.1 (35-45) H 11/11/18 04:43 POC ABG pO2 100 (80-105) 11/11/18 04:43 POC ABG HCO3 34.5 (22-26 mml/L) 11/11/18 04:43 POC ABG Total CO2 36 (23-27mmol/L) 11/11/18 04:43 POC ABG O2 Sat 98 11/11/18 04:43 POC ABG Base Excess 10 ((-2) - (+3)mmol/L) 11/11/18 04:43 35 % 11/11/18 04:43 Sodium 142 mmol/L (137-145) 11/11/18 05:50 Potassium 3.5 mmol/L (3.6-5.0) L 11/11/18 05:50 Chloride 99.0 mmol/L (98-107) 11/11/18 05:50 Carbon Dioxide 34 mmol/L (22-30) H 11/11/18 05:50 13 mmol/L 11/11/18 05:50 BUN 47 mg/dL (7-17) H 11/11/18 05:50 0.5 mg/dL (0.7-1.2) L 11/11/18 05:50 Estimated GFR > 60 ml/min 11/11/18 05:50 94 % 11/11/18 05:50 Glucose 169 mg/dL (65-100) H 11/11/18 05:50 POC Glucose 158 (70-105) H 11/12/18 09:26 Lactic Acid 1.60 mmol/L (0.7-2.0) 10/26/18 15:03 Calcium 8.2 mg/dL (8.4-10.2) L 11/11/18 05:50 Phosphorus 2.80 mg/dL (2.5-4.5) 11/11/18 05:50 Magnesium 1.80 mg/dL (1.7-2.3) 11/11/18 05:50 0.30 mg/dL (0.1-1.2) 11/11/18 05:50 AST 26 units/L (5-40) 11/11/18 05:50 ALT 28 units/L (7-56) 11/11/18 05:50 142 units/L (35-129) H 11/11/18 05:50 NT-Pro-B Natriuret Pep 4507 pg/mL (0-900) H 11/07/18 04:55 4.4 g/dL (6.3-8.2) L 11/11/18 05:50 2.1 g/dL (3.9-5) L 11/11/18 05:50 0.9 % 11/11/18 05:50 Triglycerides 132 mg/dL (2-149) 11/01/18 06:40 10 units/L (13-60) L 10/22/18 15:54 See scanned result 10/30/18 13:58 TSH 3.150 mlU/mL (0.270-4.200) 10/31/18 17:00 Free T4 0.49 ng/dL (0.76-1.46) L 10/31/18 17:00 Dulce (Yellow) 10/22/18 19:10 Clear (Clear) 10/22/18 19:10 5.0 (5.0-7.0) 10/22/18 19:10 Ur Specific [place] 1.018 (1.003-1.030) 10/22/18 19:10 30 mg/dl mg/dL (Negative) 10/22/18 19:10 Neg mg/dL (Negative) 10/22/18 19:10 Tr mg/dL (Negative) 10/22/18 19:10 Neg (Negative) 10/22/18 19:10 Neg (Negative) 10/22/18 19:10 Neg (Negative) 10/22/18 19:10 < 2.0 mg/dL (<2.0) 10/22/18 19:10 Ur Leukocyte Esterase Neg (Negative) 10/22/18 19:10 1.0 /HPF (0.0-6.0) 10/22/18 19:10 3.0 /HPF (0.0-6.0) 10/22/18 19:10 Heparin-induced Plt Ab Negative (Negative) 10/30/18 13:58 UF Heparin High Dose 0 % Release 10/30/18 13:58 KIMO UFH Low Dose 0.1 0 % Release 10/30/18 13:58 KIMO UFH Low Dose 0.5 0 % Release 10/30/18 13:58 Active Medications - Current Medications Current Medications: Generic Name Dose Route Start Last Admin Trade Name Freq PRN Reason Stop Dose Admin Acetaminophen 650 mg 10/22/18 20:10 11/10/18 14:37 Tylenol PO 650 mg Q4H PRN Administration Pain MILD(1-3)/Fever >100.5/PORTER Albuterol 2.5 mg 10/22/18 20:14 11/05/18 16:35 Proventil IH 2.5 mg Q4HRT PRN Administration Shortness Of Breath Lipase/Protease/Amylase 1 each 11/05/18 10:13 Gwendolyn Simpson 10,500 Unit FEEDTUBE PRN PRN For Clogged Feeding Tube Arformoterol Tartrate 15 mcg 11/05/18 20:00 11/12/18 08:19 Brovana Nebu IH 15 mcg Q12HRT RICK Administration Budesonide 0.5 mg 10/23/18 08:00 11/12/18 08:19 Pulmicort IH 0.5 mg Q12HRT RICK Administration Dextrose 50 ml 10/26/18 23:40 10/27/18 00:20 D50w (25gm) Syringe IV 50 ml PRN PRN Administration Hypoglycemia Gabapentin 600 mg 11/12/18 10:00 11/12/18 12:31 Neurontin PO Not Given Q8HR RICK Hydralazine HCl 10 mg 10/22/18 21:41 11/07/18 00:04 Apresoline IV 10 mg Q4HR PRN Administration Blood Pressure Hydromorphone HCl 1 mg 11/12/18 09:55 Dilaudid IV Q4H PRN Pain , Severe (7-10) Hydrophilic Ointment 1 applic 11/07/18 09:14 Vaseline Lip Therapy TP Q2HR PRN Dry Lips Micafungin Sodium 100 mg/ 100 mls @ 100 mls/hr 11/02/18 10:00 11/12/18 09:31 Sodium Chloride IV 100 mls/hr QDAY RICK Administration Protocol Potassium Chloride/Dextrose/Sod Cl 20 meq in 1,000 mls @ 75 mls/hr 11/13/18 00:01 D5w/0.45% Nacl/Kcl 20 Meq IV DIRECT RICK Insulin Human Isoph/Insulin Regular 12 unit 11/10/18 22:00 11/12/18 09:21 Humulin 70/30 SUB-Q 12 unit BID RICK Administration Insulin Human Lispro 0 unit 10/29/18 12:00 11/12/18 12:31 Humalog SUB-Q Not Given Q6HR [facility] Protocol Lorazepam 1 mg 11/06/18 11:00 11/12/18 09:26 Ativan IV 1 mg Q6H PRN Administration Anxiety Methylprednisolone Sodium Succinate 60 mg 11/09/18 07:00 11/12/18 06:55 Solu-Medrol IV 60 mg Q8HR RICK Administration Metoprolol Tartrate 5 mg 10/31/18 14:00 11/12/18 09:11 Lopressor IV 5 mg TID RICK Administration Multi-Ingred Cream/Lotion/Oil/Oint 1 applic 11/07/18 09:14 Artificial Tears Ophth Oint OU Q4HR PRN Dry Eye(s) Ondansetron HCl 4 mg 10/24/18 10:05 10/25/18 17:26 Zofran IV 4 mg Q6H PRN Administration Nausea And Vomiting Oxycodone/Acetaminophen 1 tab 11/05/18 11:16 11/11/18 16:45 Percocet 5/325 PO 1 tab Q6H PRN Administration Pain, Moderate (4-6) Pantoprazole Sodium 40 mg 11/05/18 10:00 11/12/18 09:11 Protonix IV 40 mg DAILY RICK Administration Phenol 1 spray 10/28/18 10:16 Chloraseptic MM PRN PRN Sore Throat Promethazine HCl 25 mg 10/22/18 20:10 10/22/18 21:21 Phenergan IA 25 mg Q6H PRN Administration Nausea And Vomiting Quetiapine Fumarate 300 mg 11/12/18 10:00 Seroquel PO DAILY RICK Simple Syrup 15 ml 11/05/18 10:13 Simple Syrup FEEDTUBE PRN PRN Hypoglycemia Simple Syrup 30 ml 11/05/18 10:13 Simple Syrup FEEDTUBE PRN PRN Hypoglycemia Sodium Bicarbonate 325 mg 11/05/18 10:13 Sodium Bicarbonate FEEDTUBE PRN PRN For Clogged Feeding Tube Sodium Chloride 10 ml 10/22/18 22:00 11/12/18 03:50 Sodium Chloride Flush Syringe 10 Ml IV 10 ml BID RICK Administration Sodium Chloride 10 ml 10/22/18 20:10 11/09/18 14:29 Sodium Chloride Flush Syringe 10 Ml IV 10 ml PRN PRN Administration LINE FLUSH Nutrition/Malnutrition Assess - Dietary Evaluation Nutrition/Malnutrition Findings: Nutrition Notes Start: 10/23/18 17:03 Freq: Status: Active Protocol: Document 11/11/18 16:56 NHALL (Rec: 11/11/18 17:02 SANTIAGO [id number] [email or web address]) Nutrition Notes Initial or Follow up Reassessment Other Pertinent Diagnosis Gastric peforation, bilat pneu Current Diet PPN at 100 ml/hr + Vital 1.2 at 20 ml/hr Labs/Tests K 3.5 CO2 - 34 BUN 47 BG 169 Pertinent Medications Reviewed Height 5 ft 3 in Weight 63.5 kg [place] Body Weight (kg) 52.27 BMI 24.7 Subjective/Other Information Pt tolerating TF at 20ml/hr. RN reports pt with loose stools, but minimal gastric residuals. MD wants to advance TF rate and D/C PPN. Trach placement scheduled for 11/13. Percent of energy/protein needs met: TF meets 43% energy and 60% pro needs Burn Absent Trauma Absent #1 Nutrition Diagnosis Inadequate oral intake Diagnosis Progress(for reassessment Continues documentation) Is patient on ventilator? Yes Is Patient Ambulatory and/or Out of Bed No REE-([facility]-confined to bed) 1343.100 Calculation Used for Recommendations [facility] Additional Notes Pro needs 1.2-2g/kg (based on UBW): 60-100g/day Fluid needs 1ml/kcal Nutrition Intervention Nutrition Support: D/C PPN. Increase Vital AF 1.2 to 35ml/ hr with 50ml/water flush q4h. Kcal 1,008 Protein (gm) 63 Carbohydrates (gm) 93 Fat (gm) 45 Fluid (mL) 681 Fiber (gm) 4 Goal #1 TF tolerance Goal #2 TF to meet at least 75% energy and pro needs Follow-Up By: 11/12/18 Additional Comments F/U: TF tolerance, rate increase to goal
[2018-11-12] MEDS: PERCOCET 5/325 PO PRN (13:28)
--- NOTE | 2018-11-12 14:56 | Cat Scan Report ---
CT CHEST WITH CONTRAST: HISTORY: Respiratory failure, persistent infiltrate left lower lung, perfusion. COMPARISON: Multiple previous AP chest x-rays. TECHNIQUE: Helical CT in 1.25mm intervals following IV contrast. Sagittal and coronal reformatted images. FINDINGS: Thyroid gland: Within normal limits. Tracheobronchial tree: Within normal limits. An endotracheal tube is in adequate position. Esophagus: Normal. A nasogastric tube transverses the esophagus. Heart: Normal. Pericardium: Normal. Mediastinum: No mediastinal mass or adenopathy is identified. Lung [place]: Left lower lobe atelectasis is identified. There is compressive atelectasis of most of the right lower lobe. The anterior lung zones are adequately aerated although mild congestive changes are evident. No convincing infiltrate is identified. Pleural Spaces: Moderate to large bilateral layering pleural effusions are identified. Musculoskeletal: Osteopenia. No fracture or suspicious bony lesion is identified. Comment: Limited images of the upper abdomen demonstrate pneumobilia throughout the left hepatic lobe. IMPRESSION: Moderate to large bilateral layering pleural effusions. Atelectasis in both lower lobes as described. No infiltrate is identified.
--- NOTE | 2018-11-12 17:38 | Progress Note ---
Assessment and Plan - Patient Problems (1) Partial small bowel obstruction Current Visit: Yes Status: Acute Plan to address problem: Pt stable. Will proceed with trach tomorrow. Still recommend that we hold off on PEG at this time. Would consider PEG in about 2 weeks. has no questions. Time=10min Subjective Date of service: 11/12/18 Patient Reports: Positive: other (team worried about PNA) Objective Vital Signs - 12hr 11/12/18 11/12/18 11/12/18 06:00 06:30 07:00 Temperature Pulse Rate 136 H 110 H 123 H Pulse Rate [ Anterior Bilateral] Respiratory 19 20 18 Rate Respiratory Rate [Anterior Bilateral] Blood Pressure 110/41 112/45 121/42 O2 Sat by Pulse 99 98 98 Oximetry 11/12/18 11/12/18 11/12/18 07:30 08:00 08:21 Temperature 98.9 F Pulse Rate 128 H 129 H Pulse Rate [ 127 H Anterior Bilateral] Respiratory 18 23 Rate Respiratory 18 Rate [Anterior Bilateral] Blood Pressure 121/42 118/52 O2 Sat by Pulse 97 97 Oximetry 11/12/18 11/12/18 11/12/18 08:23 08:30 09:00 Temperature Pulse Rate 121 H 120 H Pulse Rate [ 126 H Anterior Bilateral] Respiratory 21 22 Rate Respiratory 16 Rate [Anterior Bilateral] Blood Pressure 125/49 123/47 O2 Sat by Pulse 96 98 Oximetry 11/12/18 11/12/18 11/12/18 09:11 09:30 10:00 Temperature Pulse Rate 135 H 98 H 92 H Pulse Rate [ Anterior Bilateral] Respiratory 20 21 Rate Respiratory Rate [Anterior Bilateral] Blood Pressure 123/47 113/45 117/41 O2 Sat by Pulse 98 99 Oximetry 11/12/18 11/12/18 11/12/18 10:16 10:30 11:00 Temperature Pulse Rate 104 H 104 H 102 H Pulse Rate [ Anterior Bilateral] Respiratory 18 20 22 Rate Respiratory Rate [Anterior Bilateral] Blood Pressure 118/51 118/51 113/51 O2 Sat by Pulse 96 99 99 Oximetry 11/12/18 11/12/18 11/12/18 11:30 11:57 12:00 Temperature 98.0 F Pulse Rate 104 H 112 H 104 H Pulse Rate [ Anterior Bilateral] Respiratory 18 18 17 Rate Respiratory Rate [Anterior Bilateral] Blood Pressure 119/44 126/47 126/47 O2 Sat by Pulse 100 99 99 Oximetry 11/12/18 11/12/18 11/12/18 12:30 13:00 13:28 Temperature Pulse Rate 140 H 141 H 142 H Pulse Rate [ Anterior Bilateral] Respiratory 17 17 Rate Respiratory Rate [Anterior Bilateral] Blood Pressure 126/51 121/52 121/52 O2 Sat by Pulse 97 98 Oximetry 11/12/18 11/12/18 11/12/18 13:30 14:00 14:33 Temperature Pulse Rate 137 H 134 H 121 H Pulse Rate [ Anterior Bilateral] Respiratory 16 22 19 Rate Respiratory Rate [Anterior Bilateral] Blood Pressure 121/52 121/52 O2 Sat by Pulse 97 97 100 Oximetry 11/12/18 11/12/18 11/12/18 15:01 15:20 15:31 Temperature Pulse Rate 131 H 123 H 125 H Pulse Rate [ Anterior Bilateral] Respiratory 25 H 24 24 Rate Respiratory Rate [Anterior Bilateral] Blood Pressure 121/52 O2 Sat by Pulse 96 96 96 Oximetry 11/12/18 11/12/18 16:00 16:01 Temperature 98.3 F Pulse Rate 113 H Pulse Rate [ Anterior Bilateral] Respiratory 22 Rate Respiratory Rate [Anterior Bilateral] Blood Pressure 108/41 O2 Sat by Pulse 96 Oximetry - General physical appearance no distress, no pain - ENT other (ETT in place) - Respiratory normal expansion, normal respiratory effort - Integumentary no rash, no growths, no abnormal pigmentation - Labs 11/11/18 05:50 11/11/18 05:50 - Imaging CT scan - chest: report reviewed, image reviewed
[2018-11-12] MEDS: DILAUDID IV PRN (21:04)
[2018-11-13] MEDS ORDERED: D5W/0.45% NACL/KCL 20 MEQ 20 MEQ/1,000 ML BAG IV SCH (00:01)
[2018-11-13] MEDS: HumaLOG SUB-Q SCH ×4 (01:06→18:05)
[2018-11-13] MEDS: DILAUDID IV PRN ×4 (01:07→21:08)
--- NOTE | 2018-11-13 04:26 | XRay Report ---
PROCEDURE: XR CHEST 1V AP TECHNIQUE: Chest radiograph single view. HISTORY: follow up respiratory failure COMPARISONS: November 12, 2018 . FINDINGS: Heart: Normal. Mediastinum/Vessels: Normal. Lungs/Pleural space: There are bilateral lower lobe infiltrates. There is a small left pleural effus ion. There is no pneumothorax.. Bony thorax: No acute osseous abnormality. Life support devices: The endotracheal tube is in the distal trachea approximately 2 cm above the car mike. The NG tube is in the stomach.. IMPRESSION: The heart size is normal.. There are bilateral lower lobe infiltrates. There is a small left pleural effusion. There is no pneum othorax.. The endotracheal tube is in the distal trachea approximately 2 cm above the rekha. The NG tube is in the stomach.. This document is electronically signed by Dawit Middleton MD., November 13 2018 04:24:49 AM ET
[2018-11-13] MEDS: SOLU-Medrol IV SCH ×3 (07:13→21:11)
[2018-11-13] MEDS: NEURONTIN PO SCH ×3 (07:13→21:16)
--- NOTE | 2018-11-13 07:42 | Hem/Onc Progress Note ---
Assessment and Plan 1. h/o Thrombocytopenia, likely medication, pts medical status related. 2. History of colon surgery in the past, details not clear. 3. History of bowel issues. Seen by surgical team. - pSBO and contained gastric perforation 4. h/o TPN. 5. h/o Ayla, ID following. 6. Chronic obstructive pulmonary disease. 7. Hypertension. 8. History of lupus. 9. Aspiration pneumonia. 10. The patient was on ventilation. 11. Renal impairment. 11/13 pt on vent - pulm following plan for trach plt better anemia - will Ix - Patient Problems (1) Thrombocytopenia Current Visit: Yes Status: Acute Subjective Date of service: 11/13/18 Principal diagnosis: anemia Interval history: due sx today - trach still on vent - awake Objective - Constitutional Vitals: Last Vital Signs Temp 98.8 F 11/13/18 03:54 Pulse 105 H 11/13/18 06:00 Resp 20 11/13/18 06:00 BP 116/44 11/13/18 06:00 Pulse Ox 96 11/13/18 06:00 Pain Intensity (0-10): denies any pain General appearance: no acute distress, other (intubated - awake) Performance status: 4-completely disabled - EENT Eyes: EOM intact ENT: hearing intact Lymph node exam: negative cervical - Respiratory Respiratory effort: Positive: normal Respiratory: bilateral: CTA (anteriorly) - Cardiovascular Heart Sounds: Present: S1 & S2 Extremities: normal temperature - Gastrointestinal General gastrointestinal: Present: soft, non-tender Rectal Exam: deferred - Genitourinary Female genitourinary: Present: deferred - Integumentary Integumentary: warm - Musculoskeletal Musculoskeletal: generalized weakness - Neurologic Neurologic: moves all extremities - Labs Lab Results: Laboratory Results - last 24 hr 11/12/18 11/12/18 11/12/18 09:26 11:42 17:39 POC Glucose 158 H 141 H 183 H 11/12/18 11/13/18 23:25 05:24 POC Glucose 147 H 71 Medications & Allergies - Medications Allergies/Adverse Reactions: Allergies Sulfa (Sulfonamide Antibiotics) Allergy (Intermediate, Verified 10/22/18 16:30) Rash metoclopramide HCl [From Reglan] Allergy (Verified 10/22/18 16:30) Dizziness prochlorperazine [From Compazine] Allergy (Verified 10/22/18 16:30) NECK STIFFNESS Home Medications: Home Medications Medication Instructions Recorded Confirmed Last Taken Type Ondansetron 4 mg PO Q6HR PRN 12/05/16 10/22/18 10/29/17 History Propranolol HCl [Propranolol HCl 60 mg PO DAILY 12/05/16 10/22/18 10/30/17 22:00 History ER] QUEtiapine [SEROquel] 300 mg PO DAILY 12/05/16 10/22/18 10/30/17 History Lasix TAB 40 mg PO PRN PRN 12/07/16 10/22/18 10/24/17 History Percocet 10/325 mg 1 tab PO PRN PRN 12/07/16 10/22/18 10/30/17 History Albuterol Sulfate [Albuterol 0.63% 0.63 mg IH TID PRN 10/22/17 10/22/18 10/29/17 History NEBS] Active Medications: Generic Name Dose Route Start Last Admin Trade Name Freq PRN Reason Stop Dose Admin Acetaminophen 650 mg 10/22/18 20:10 11/10/18 14:37 Tylenol PO 650 mg Q4H PRN Administration Pain MILD(1-3)/Fever >100.5/PORTER Albuterol 2.5 mg 10/22/18 20:14 11/05/18 16:35 Proventil IH 2.5 mg Q4HRT PRN Administration Shortness Of Breath Lipase/Protease/Amylase 1 each 11/05/18 10:13 Pancremaranda Simpson 10,500 Unit FEEDTUBE PRN PRN For Clogged Feeding Tube Arformoterol Tartrate 15 mcg 11/05/18 20:00 11/12/18 19:30 Brovana Nebu IH 15 mcg Q12HRT RICK Administration Budesonide 0.5 mg 10/23/18 08:00 11/12/18 19:30 Pulmicort IH 0.5 mg Q12HRT RICK Administration Dextrose 50 ml 10/26/18 23:40 10/27/18 00:20 D50w (25gm) Syringe IV 50 ml PRN PRN Administration Hypoglycemia Gabapentin 600 mg 11/12/18 10:00 11/13/18 07:13 Neurontin PO Not Given Q8HR RICK Hydralazine HCl 10 mg 10/22/18 21:41 11/07/18 00:04 Apresoline IV 10 mg Q4HR PRN Administration Blood Pressure Hydromorphone HCl 1 mg 11/12/18 09:55 11/13/18 01:07 Dilaudid IV 1 mg Q4H PRN Administration Pain , Severe (7-10) Hydrophilic Ointment 1 applic 11/07/18 09:14 Vaseline Lip Therapy TP Q2HR PRN Dry Lips Micafungin Sodium 100 mg/ 100 mls @ 100 mls/hr 11/02/18 10:00 11/12/18 09:31 Sodium Chloride IV 100 mls/hr QDAY RICK Administration Protocol Potassium Chloride/Dextrose/Sod Cl 20 meq in 1,000 mls @ 75 mls/hr 11/13/18 00:01 D5w/0.45% Nacl/Kcl 20 Meq IV DIRECT RICK Insulin Human Isoph/Insulin Regular 12 unit 11/10/18 22:00 11/12/18 21:03 Humulin 70/30 SUB-Q 12 unit BID RICK Administration Insulin Human Lispro 0 unit 10/29/18 12:00 11/13/18 06:35 Humalog SUB-Q Not Given Q6HR [facility] Protocol Lorazepam 1 mg 11/06/18 11:00 11/12/18 09:26 Ativan IV 1 mg Q6H PRN Administration Anxiety Methylprednisolone Sodium Succinate 60 mg 11/09/18 07:00 11/13/18 07:13 Solu-Medrol IV 60 mg Q8HR RICK Administration Metoprolol Tartrate 5 mg 10/31/18 14:00 11/12/18 21:03 Lopressor IV 5 mg TID RICK Administration Multi-Ingred Cream/Lotion/Oil/Oint 1 applic 11/07/18 09:14 Artificial Tears Ophth Oint OU Q4HR PRN Dry Eye(s) Ondansetron HCl 4 mg 10/24/18 10:05 10/25/18 17:26 Zofran IV 4 mg Q6H PRN Administration Nausea And Vomiting Oxycodone/Acetaminophen 1 tab 11/05/18 11:16 11/12/18 13:28 Percocet 5/325 PO 1 tab Q6H PRN Administration Pain, Moderate (4-6) Pantoprazole Sodium 40 mg 11/05/18 10:00 11/12/18 09:11 Protonix IV 40 mg DAILY RICK Administration Phenol 1 spray 10/28/18 10:16 Chloraseptic MM PRN PRN Sore Throat Promethazine HCl 25 mg 10/22/18 20:10 10/22/18 21:21 Phenergan IA 25 mg Q6H PRN Administration Nausea And Vomiting Quetiapine Fumarate 300 mg 11/12/18 10:00 11/12/18 13:28 Seroquel PO 300 mg DAILY RICK Administration Simple Syrup 15 ml 11/05/18 10:13 Simple Syrup FEEDTUBE PRN PRN Hypoglycemia Simple Syrup 30 ml 11/05/18 10:13 Simple Syrup FEEDTUBE PRN PRN Hypoglycemia Sodium Bicarbonate 325 mg 11/05/18 10:13 Sodium Bicarbonate FEEDTUBE PRN PRN For Clogged Feeding Tube Sodium Chloride 10 ml 10/22/18 22:00 11/12/18 21:06 Sodium Chloride Flush Syringe 10 Ml IV 10 ml BID RICK Administration Sodium Chloride 10 ml 10/22/18 20:10 11/09/18 14:29 Sodium Chloride Flush Syringe 10 Ml IV 10 ml PRN PRN Administration LINE FLUSH
[2018-11-13] MEDS: BROVANA NEBU IH SCH ×2 (08:43→19:33)
[2018-11-13] MEDS: PULMICORT IH SCH ×2 (08:43→19:33)
--- NOTE | 2018-11-13 09:04 | Progress Note ---
Assessment and Plan ARF ,failure to wean ,prolonged vent support. Sepsis/Fungemia. On antibiotics, suspected secondary to PICC line Bilateral upper lobe pneumonia. Complete antibiotics Bilateral pleural effusions with left lower lung atelectasis. Still active Partial bowel obstruction, perforation. Improved Diarrhea. On oral nutrition, currently on hold due to surgery Compensated respiratory acidosis improved Chronic pain medications, anti-psychotic therapy. Progressively increased demand for narcotics in the context of hypercapnic failure, chronic Thrombocytopenia. Improved PAT, tachy-bradycardia episodes. Improved today. Interestingly, been mobilized for wound care during examination Hypertension, COPD. On nebs.mild wheezing Rec Decrease IV steroids as tolerated Lasix 20 mg twice a day and monitor electrolytes, renal function Tracheotomy scheduled today SBT in the morning off sedation after tracheostomy Continue nebulizer therapy Long-term placement planning Complete scheduled antibiotics Physical therapy Discussed with patient,spouse and staff in detail. All questions answered. Critical care time was 31 minutes of [id number] evaluation and coordination of care Subjective Date of service: 11/13/18 Principal diagnosis: respiratory failure Interval history: No events overnight. Intubated Objective Vital Signs - 12hr 11/12/18 11/12/18 11/12/18 21:03 21:30 22:00 Temperature Pulse Rate 129 H 105 H 114 H Respiratory 23 22 Rate Blood Pressure 137/61 106/43 114/40 O2 Sat by Pulse 96 96 Oximetry 11/12/18 11/12/18 11/12/18 22:30 23:01 23:26 Temperature Pulse Rate 112 H 140 H 112 H Respiratory 23 23 22 Rate Blood Pressure 106/38 106/38 125/65 O2 Sat by Pulse 96 95 97 Oximetry 11/12/18 11/12/18 11/13/18 23:30 23:35 00:00 Temperature 99.0 F Pulse Rate 111 H 136 H 107 H Respiratory 22 22 21 Rate Blood Pressure 111/45 111/45 111/37 O2 Sat by Pulse 97 97 98 Oximetry 11/13/18 11/13/18 11/13/18 00:30 01:00 01:30 Temperature Pulse Rate 108 H 106 H 132 H Respiratory 20 22 19 Rate Blood Pressure 103/42 107/43 103/49 O2 Sat by Pulse 98 98 97 Oximetry 11/13/18 11/13/18 11/13/18 02:00 02:30 03:00 Temperature Pulse Rate 104 H 112 H 140 H Respiratory 21 20 19 Rate Blood Pressure 120/51 112/41 111/46 O2 Sat by Pulse 98 98 97 Oximetry 11/13/18 11/13/18 11/13/18 03:29 03:30 03:54 Temperature 98.8 F Pulse Rate 121 H 105 H Respiratory 19 Rate Blood Pressure 104/38 104/38 O2 Sat by Pulse 97 98 Oximetry 11/13/18 11/13/18 11/13/18 04:00 04:30 05:00 Temperature Pulse Rate 104 H 105 H 125 H Respiratory 17 17 17 Rate Blood Pressure 112/45 106/39 105/39 O2 Sat by Pulse 98 97 97 Oximetry 11/13/18 11/13/18 11/13/18 05:31 06:00 08:44 Temperature Pulse Rate 108 H 105 H 113 H Respiratory 15 20 22 Rate Blood Pressure 96/75 116/44 125/49 O2 Sat by Pulse 98 96 96 Oximetry Constitutional: alert, appears uncomfortable Eyes: non-icteric ENT: other (orally intubated) Neck: supple, no JVD Effort: mildly labored Ascultation: Bilateral: clear, diminished breath sounds Percussion: Bilateral: not dull Cardiovascular: regular rate and rhythm Gastrointestinal: hypoactive bowel sounds, non-tender, non-distended, other Integumentary: normal Extremities: no edema Neurologic: normal mental status, non-focal exam Psychiatric: anxious CBC and BMP: 11/11/18 05:50 11/11/18 05:50 ABG, PT/INR, D-dimer: ABG POC ABG pH 7.447 (7.35-7.45) 11/11/18 04:43 POC ABG pCO2 50.1 (35-45) H 11/11/18 04:43 POC ABG pO2 100 (80-105) 11/11/18 04:43 POC ABG HCO3 34.5 (22-26 mml/L) 11/11/18 04:43 POC ABG Total CO2 36 (23-27mmol/L) 11/11/18 04:43 POC ABG O2 Sat 98 11/11/18 04:43 Abnormal lab findings: Abnormal Labs 10/22/18 10/22/18 10/22/18 15:31 15:54 15:54 WBC 11.5 H RBC 5.35 H Hgb 17.4 H Hct 50.3 H MCV MCH 33 H MCHC 35 H Plt Count Lymph % (Auto) 12.6 L White % (Auto) 14.8 H Lymph # White # 1.7 H Seg Neutrophils % 72.5 H Seg Neuts % (Manual) Lymphocytes % (Manual) Seg Neutrophils # 8.3 H Seg Neutrophils # Man Lymphocytes # (Manual) POC ABG pH POC ABG pCO2 POC ABG pO2 Sodium 134 L Potassium Chloride 88.1 L Carbon Dioxide BUN 51 H Creatinine 2.1 H Glucose 166 H POC Glucose Calcium Phosphorus Magnesium Alkaline Phosphatase NT-Pro-B Natriuret Pep Total Protein Albumin 3.4 L Lipase 10 L Free T4 10/23/18 10/23/18 10/23/18 04:32 04:32 10:53 WBC RBC Hgb Hct MCV MCH MCHC Plt Count Lymph % (Auto) 10.2 L White % (Auto) 14.7 H Lymph # 0.7 L White # 1.0 H Seg Neutrophils % 74.9 H Seg Neuts % (Manual) Lymphocytes % (Manual) Seg Neutrophils # Seg Neutrophils # Man Lymphocytes # (Manual) POC ABG pH POC ABG pCO2 POC ABG pO2 Sodium Potassium 3.1 L D 3.5 L Chloride Carbon Dioxide BUN 41 H 37 H Creatinine Glucose 111 H 110 H POC Glucose Calcium 8.1 L 8.1 L Phosphorus Magnesium Alkaline Phosphatase NT-Pro-B Natriuret Pep Total Protein Albumin Lipase Free T4 10/24/18 10/24/18 10/25/18 05:34 05:34 04:51 WBC RBC Hgb Hct MCV MCH MCHC Plt Count Lymph % (Auto) White % (Auto) Lymph # White # Seg Neutrophils % Seg Neuts % (Manual) Lymphocytes % (Manual) Seg Neutrophils # Seg Neutrophils # Man Lymphocytes # (Manual) POC ABG pH POC ABG pCO2 POC ABG pO2 Sodium Potassium 3.2 L 3.1 L Chloride 109.8 H 114.2 H Carbon Dioxide 17 L D BUN 21 H Creatinine Glucose 134 H 171 H POC Glucose Calcium 7.7 L 7.0 L Phosphorus 0.80 L* Magnesium Alkaline Phosphatase NT-Pro-B Natriuret Pep Total Protein Albumin Lipase Free T4 10/25/18 10/26/18 10/26/18 06:07 02:58 04:57 WBC RBC Hgb Hct MCV 99 H MCH 33 H MCHC Plt Count Lymph % (Auto) White % (Auto) Lymph # White # Seg Neutrophils % Seg Neuts % (Manual) Lymphocytes % (Manual) Seg Neutrophils # Seg Neutrophils # Man Lymphocytes # (Manual) POC ABG pH 7.090 L 7.320 L POC ABG pCO2 65.0 H 32.8 L POC ABG pO2 76 L Sodium Potassium Chloride Carbon Dioxide BUN Creatinine Glucose POC Glucose Calcium Phosphorus Magnesium Alkaline Phosphatase NT-Pro-B Natriuret Pep Total Protein Albumin Lipase Free T4 10/26/18 10/26/18 10/26/18 06:03 06:03 11:52 WBC 23.8 H RBC Hgb 15.4 H Hct 46.1 H D MCV MCH MCHC Plt Count Lymph % (Auto) White % (Auto) Lymph # White # Seg Neutrophils % Seg Neuts % (Manual) Lymphocytes % (Manual) Seg Neutrophils # Seg Neutrophils # Man Lymphocytes # (Manual) POC ABG pH POC ABG pCO2 POC ABG pO2 Sodium Potassium Chloride 109.5 H Carbon Dioxide 18 L BUN Creatinine Glucose 128 H POC Glucose 117 H Calcium 8.3 L D Phosphorus Magnesium Alkaline Phosphatase NT-Pro-B Natriuret Pep Total Protein Albumin Lipase Free T4 10/26/18 10/26/18 10/26/18 13:54 17:10 17:32 WBC RBC Hgb Hct MCV MCH MCHC Plt Count Lymph % (Auto) White % (Auto) Lymph # White # Seg Neutrophils % Seg Neuts % (Manual) Lymphocytes % (Manual) Seg Neutrophils # Seg Neutrophils # Man Lymphocytes # (Manual) POC ABG pH 7.215 L POC ABG pCO2 31.8 L POC ABG pO2 69 L 204 H Sodium Potassium 3.0 L D Chloride 114.5 H Carbon Dioxide 21 L BUN Creatinine Glucose POC Glucose Calcium 7.6 L Phosphorus Magnesium 1.40 L Alkaline Phosphatase NT-Pro-B Natriuret Pep Total Protein Albumin Lipase Free T4 10/26/18 10/27/18 10/27/18 23:13 00:40 01:09 WBC RBC Hgb Hct MCV MCH MCHC Plt Count Lymph % (Auto) White % (Auto) Lymph # White # Seg Neutrophils % Seg Neuts % (Manual) Lymphocytes % (Manual) Seg Neutrophils # Seg Neutrophils # Man Lymphocytes # (Manual) POC ABG pH POC ABG pCO2 POC ABG pO2 Sodium Potassium 3.4 L Chloride 115.0 H Carbon Dioxide 14 L D BUN Creatinine Glucose 228 H POC Glucose 48 L 264 H Calcium 7.1 L Phosphorus Magnesium Alkaline Phosphatase NT-Pro-B Natriuret Pep Total Protein Albumin Lipase Free T4 10/27/18 10/27/18 10/27/18 05:00 05:00 05:16 WBC 22.5 H RBC Hgb 14.7 H Hct 44.4 H MCV MCH MCHC Plt Count Lymph % (Auto) White % (Auto) Lymph # White # Seg Neutrophils % Seg Neuts % (Manual) Lymphocytes % (Manual) Seg Neutrophils # Seg Neutrophils # Man Lymphocytes # (Manual) POC ABG pH 7.304 L POC ABG pCO2 POC ABG pO2 116 H Sodium Potassium Chloride 118.4 H Carbon Dioxide 16 L BUN Creatinine Glucose 123 H POC Glucose Calcium 7.7 L Phosphorus Magnesium 2.60 H Alkaline Phosphatase NT-Pro-B Natriuret Pep Total Protein Albumin Lipase Free T4 10/28/18 10/28/18 10/28/18 04:25 04:25 15:37 WBC 23.5 H RBC Hgb Hct MCV MCH MCHC Plt Count Lymph % (Auto) White % (Auto) Lymph # White # Seg Neutrophils % Seg Neuts % (Manual) Lymphocytes % (Manual) Seg Neutrophils # Seg Neutrophils # Man Lymphocytes # (Manual) POC ABG pH POC ABG pCO2 POC ABG pO2 Sodium 147 H Potassium Chloride 116.9 H Carbon Dioxide 16 L BUN 23 H Creatinine Glucose POC Glucose 114 H Calcium 8.0 L Phosphorus Magnesium Alkaline Phosphatase NT-Pro-B Natriuret Pep Total Protein Albumin Lipase Free T4 10/28/18 10/28/18 10/28/18 20:33 22:07 23:31 WBC RBC Hgb Hct MCV MCH MCHC Plt Count Lymph % (Auto) White % (Auto) Lymph # White # Seg Neutrophils % Seg Neuts % (Manual) Lymphocytes % (Manual) Seg Neutrophils # Seg Neutrophils # Man Lymphocytes # (Manual) POC ABG pH 7.202 L 7.235 L POC ABG pCO2 POC ABG pO2 71 L Sodium Potassium Chloride Carbon Dioxide BUN Creatinine Glucose POC Glucose 207 H Calcium Phosphorus Magnesium Alkaline Phosphatase NT-Pro-B Natriuret Pep Total Protein Albumin Lipase Free T4 10/29/18 10/29/18 10/29/18 04:30 04:30 05:26 WBC 21.1 H RBC Hgb Hct MCV MCH MCHC Plt Count Lymph % (Auto) White % (Auto) Lymph # White # Seg Neutrophils % Seg Neuts % (Manual) 97.0 H Lymphocytes % (Manual) 3.0 L Seg Neutrophils # Seg Neutrophils # Man 20.5 H Lymphocytes # (Manual) 0.6 L POC ABG pH 7.305 L POC ABG pCO2 30.5 L POC ABG pO2 75 L Sodium 147 H Potassium 3.5 L Chloride 120.0 H Carbon Dioxide 17 L BUN 30 H Creatinine Glucose 246 H POC Glucose Calcium 7.9 L Phosphorus Magnesium Alkaline Phosphatase NT-Pro-B Natriuret Pep Total Protein Albumin Lipase Free T4 10/29/18 10/29/18 10/29/18 05:36 11:39 18:00 WBC RBC Hgb Hct MCV MCH MCHC Plt Count Lymph % (Auto) White % (Auto) Lymph # White # Seg Neutrophils % Seg Neuts % (Manual) Lymphocytes % (Manual) Seg Neutrophils # Seg Neutrophils # Man Lymphocytes # (Manual) POC ABG pH POC ABG pCO2 POC ABG pO2 Sodium Potassium Chloride Carbon Dioxide BUN Creatinine Glucose POC Glucose 204 H 224 H 221 H Calcium Phosphorus Magnesium Alkaline Phosphatase NT-Pro-B Natriuret Pep Total Protein Albumin Lipase Free T4 10/29/18 10/30/18 10/30/18 23:17 05:00 05:00 WBC 21.4 H RBC Hgb Hct MCV MCH MCHC Plt Count 134 L Lymph % (Auto) White % (Auto) Lymph # White # Seg Neutrophils % Seg Neuts % (Manual) 97.0 H Lymphocytes % (Manual) 3.0 L Seg Neutrophils # Seg Neutrophils # Man 20.8 H Lymphocytes # (Manual) 0.6 L POC ABG pH POC ABG pCO2 POC ABG pO2 Sodium 148 H Potassium 3.1 L Chloride 120.3 H Carbon Dioxide 18 L BUN 31 H Creatinine Glucose 205 H POC Glucose 181 H Calcium 8.0 L Phosphorus Magnesium Alkaline Phosphatase NT-Pro-B Natriuret Pep Total Protein Albumin Lipase Free T4 10/30/18 10/30/18 10/30/18 05:14 05:25 05:26 WBC RBC Hgb Hct MCV MCH MCHC Plt Count Lymph % (Auto) White % (Auto) Lymph # White # Seg Neutrophils % Seg Neuts % (Manual) Lymphocytes % (Manual) Seg Neutrophils # Seg Neutrophils # Man Lymphocytes # (Manual) POC ABG pH 7.296 L 7.245 L POC ABG pCO2 31.1 L POC ABG pO2 54 L 59 L Sodium Potassium Chloride Carbon Dioxide BUN Creatinine Glucose POC Glucose 199 H Calcium Phosphorus Magnesium Alkaline Phosphatase NT-Pro-B Natriuret Pep Total Protein Albumin Lipase Free T4 10/30/18 10/30/18 10/31/18 13:23 18:25 00:22 WBC RBC Hgb Hct MCV MCH MCHC Plt Count Lymph % (Auto) White % (Auto) Lymph # White # Seg Neutrophils % Seg Neuts % (Manual) Lymphocytes % (Manual) Seg Neutrophils # Seg Neutrophils # Man Lymphocytes # (Manual) POC ABG pH POC ABG pCO2 POC ABG pO2 Sodium Potassium Chloride Carbon Dioxide BUN Creatinine Glucose POC Glucose 146 H 158 H 162 H Calcium Phosphorus Magnesium Alkaline Phosphatase NT-Pro-B Natriuret Pep Total Protein Albumin Lipase Free T4 10/31/18 10/31/18 10/31/18 04:39 05:14 07:05 WBC RBC Hgb Hct MCV MCH MCHC Plt Count Lymph % (Auto) White % (Auto) Lymph # White # Seg Neutrophils % Seg Neuts % (Manual) Lymphocytes % (Manual) Seg Neutrophils # Seg Neutrophils # Man Lymphocytes # (Manual) POC ABG pH 7.238 L POC ABG pCO2 POC ABG pO2 Sodium Potassium Chloride 115.8 H Carbon Dioxide 18 L BUN 39 H Creatinine 1.3 H Glucose 167 H POC Glucose 145 H Calcium 7.5 L Phosphorus 1.80 L Magnesium Alkaline Phosphatase NT-Pro-B Natriuret Pep Total Protein Albumin Lipase Free T4 10/31/18 10/31/18 10/31/18 10:43 12:03 17:00 WBC RBC Hgb Hct MCV MCH MCHC Plt Count Lymph % (Auto) White % (Auto) Lymph # White # Seg Neutrophils % Seg Neuts % (Manual) Lymphocytes % (Manual) Seg Neutrophils # Seg Neutrophils # Man Lymphocytes # (Manual) POC ABG pH 7.304 L POC ABG pCO2 33.3 L POC ABG pO2 Sodium Potassium Chloride Carbon Dioxide BUN Creatinine Glucose POC Glucose 159 H Calcium Phosphorus Magnesium Alkaline Phosphatase NT-Pro-B Natriuret Pep Total Protein Albumin Lipase Free T4 0.49 L 10/31/18 11/01/18 11/01/18 17:00 00:44 05:27 WBC RBC Hgb Hct MCV MCH MCHC Plt Count Lymph % (Auto) White % (Auto) Lymph # White # Seg Neutrophils % Seg Neuts % (Manual) Lymphocytes % (Manual) Seg Neutrophils # Seg Neutrophils # Man Lymphocytes # (Manual) POC ABG pH 7.248 L POC ABG pCO2 34.8 L POC ABG pO2 135 H Sodium Potassium Chloride Carbon Dioxide BUN Creatinine Glucose POC Glucose 127 H 118 H Calcium Phosphorus Magnesium Alkaline Phosphatase NT-Pro-B Natriuret Pep Total Protein Albumin Lipase Free T4 11/01/18 11/01/18 11/01/18 06:40 06:40 06:53 WBC 18.9 H RBC 3.63 L Hgb Hct MCV MCH MCHC Plt Count 64 L Lymph % (Auto) White % (Auto) Lymph # White # Seg Neutrophils % Seg Neuts % (Manual) 98.0 H Lymphocytes % (Manual) 1.0 L Seg Neutrophils # Seg Neutrophils # Man 18.5 H Lymphocytes # (Manual) 0.2 L POC ABG pH POC ABG pCO2 POC ABG pO2 Sodium Potassium 3.5 L Chloride 114.2 H Carbon Dioxide 17 L BUN 49 H Creatinine Glucose 107 H POC Glucose 127 H Calcium 7.3 L Phosphorus Magnesium 1.60 L Alkaline Phosphatase NT-Pro-B Natriuret Pep Total Protein Albumin Lipase Free T4 11/01/18 11/01/18 11/01/18 11:49 13:13 17:24 WBC RBC Hgb Hct MCV MCH MCHC Plt Count Lymph % (Auto) White % (Auto) Lymph # White # Seg Neutrophils % Seg Neuts % (Manual) Lymphocytes % (Manual) Seg Neutrophils # Seg Neutrophils # Man Lymphocytes # (Manual) POC ABG pH POC ABG pCO2 POC ABG pO2 182 H Sodium Potassium Chloride Carbon Dioxide BUN Creatinine Glucose POC Glucose 134 H 111 H Calcium Phosphorus Magnesium Alkaline Phosphatase NT-Pro-B Natriuret Pep Total Protein Albumin Lipase Free T4 11/01/18 11/02/18 11/02/18 23:07 04:32 05:00 WBC RBC Hgb Hct MCV MCH MCHC Plt Count Lymph % (Auto) White % (Auto) Lymph # White # Seg Neutrophils % Seg Neuts % (Manual) Lymphocytes % (Manual) Seg Neutrophils # Seg Neutrophils # Man Lymphocytes # (Manual) POC ABG pH 7.244 L POC ABG pCO2 33.2 L POC ABG pO2 123 H Sodium Potassium 3.0 L Chloride 114.1 H Carbon Dioxide 15 L BUN 47 H Creatinine Glucose 127 H POC Glucose 123 H Calcium 7.7 L Phosphorus Magnesium Alkaline Phosphatase NT-Pro-B Natriuret Pep Total Protein Albumin Lipase Free T4 11/02/18 11/02/18 11/02/18 05:00 05:29 11:27 WBC RBC Hgb Hct MCV MCH MCHC Plt Count Lymph % (Auto) White % (Auto) Lymph # White # Seg Neutrophils % Seg Neuts % (Manual) Lymphocytes % (Manual) Seg Neutrophils # Seg Neutrophils # Man Lymphocytes # (Manual) POC ABG pH POC ABG pCO2 POC ABG pO2 Sodium Potassium Chloride Carbon Dioxide BUN Creatinine Glucose POC Glucose 118 H 137 H Calcium Phosphorus Magnesium 1.60 L Alkaline Phosphatase NT-Pro-B Natriuret Pep Total Protein Albumin Lipase Free T4 11/02/18 11/02/18 11/03/18 12:53 23:35 04:14 WBC RBC Hgb Hct MCV MCH MCHC Plt Count Lymph % (Auto) White % (Auto) Lymph # White # Seg Neutrophils % Seg Neuts % (Manual) Lymphocytes % (Manual) Seg Neutrophils # Seg Neutrophils # Man Lymphocytes # (Manual) POC ABG pH POC ABG pCO2 30.3 L POC ABG pO2 134 H 129 H Sodium Potassium Chloride Carbon Dioxide BUN Creatinine Glucose POC Glucose 115 H Calcium Phosphorus Magnesium Alkaline Phosphatase NT-Pro-B Natriuret Pep Total Protein Albumin Lipase Free T4 11/03/18 11/03/18 11/03/18 05:34 11:30 11:30 WBC 16.4 H RBC 3.50 L Hgb Hct MCV MCH MCHC Plt Count 136 L D Lymph % (Auto) White % (Auto) Lymph # White # Seg Neutrophils % Seg Neuts % (Manual) 97.0 H Lymphocytes % (Manual) 2.0 L Seg Neutrophils # Seg Neutrophils # Man 15.9 H Lymphocytes # (Manual) 0.3 L POC ABG pH POC ABG pCO2 POC ABG pO2 Sodium Potassium 3.1 L Chloride 110.4 H Carbon Dioxide 17 L BUN 41 H Creatinine Glucose 129 H POC Glucose 116 H Calcium 7.7 L Phosphorus Magnesium 1.60 L Alkaline Phosphatase NT-Pro-B Natriuret Pep Total Protein 4.2 L Albumin 1.2 L Lipase Free T4 11/03/18 11/03/18 11/03/18 12:01 17:35 21:37 WBC RBC Hgb Hct MCV MCH MCHC Plt Count Lymph % (Auto) White % (Auto) Lymph # White # Seg Neutrophils % Seg Neuts % (Manual) Lymphocytes % (Manual) Seg Neutrophils # Seg Neutrophils # Man Lymphocytes # (Manual) POC ABG pH POC ABG pCO2 POC ABG pO2 Sodium Potassium Chloride Carbon Dioxide BUN Creatinine Glucose POC Glucose 132 H 132 H 126 H Calcium Phosphorus Magnesium Alkaline Phosphatase NT-Pro-B Natriuret Pep Total Protein Albumin Lipase Free T4 11/03/18 11/04/18 11/04/18 23:30 05:14 05:15 WBC RBC Hgb Hct MCV MCH MCHC Plt Count Lymph % (Auto) White % (Auto) Lymph # White # Seg Neutrophils % Seg Neuts % (Manual) Lymphocytes % (Manual) Seg Neutrophils # Seg Neutrophils # Man Lymphocytes # (Manual) POC ABG pH POC ABG pCO2 30.9 L POC ABG pO2 192 H Sodium Potassium Chloride Carbon Dioxide BUN Creatinine Glucose POC Glucose 115 H 123 H Calcium Phosphorus Magnesium Alkaline Phosphatase NT-Pro-B Natriuret Pep Total Protein Albumin Lipase Free T4 11/04/18 11/04/18 11/04/18 09:39 09:39 11:43 WBC 15.2 H RBC 3.18 L Hgb Hct 29.9 L MCV MCH MCHC Plt Count Lymph % (Auto) White % (Auto) Lymph # White # Seg Neutrophils % Seg Neuts % (Manual) 98.0 H Lymphocytes % (Manual) 1.0 L Seg Neutrophils # Seg Neutrophils # Man 14.9 H Lymphocytes # (Manual) 0.2 L POC ABG pH POC ABG pCO2 POC ABG pO2 Sodium 135 L D Potassium Chloride 109.5 H Carbon Dioxide 16 L BUN 46 H Creatinine Glucose 136 H POC Glucose 138 H Calcium 8.0 L Phosphorus Magnesium Alkaline Phosphatase NT-Pro-B Natriuret Pep Total Protein Albumin Lipase Free T4 11/04/18 11/04/18 11/05/18 17:31 23:42 05:23 WBC RBC Hgb Hct MCV MCH MCHC Plt Count Lymph % (Auto) White % (Auto) Lymph # White # Seg Neutrophils % Seg Neuts % (Manual) Lymphocytes % (Manual) Seg Neutrophils # Seg Neutrophils # Man Lymphocytes # (Manual) POC ABG pH POC ABG pCO2 POC ABG pO2 Sodium Potassium Chloride Carbon Dioxide BUN Creatinine Glucose POC Glucose 139 H 138 H 148 H Calcium Phosphorus Magnesium Alkaline Phosphatase NT-Pro-B Natriuret Pep Total Protein Albumin Lipase Free T4 11/05/18 11/05/18 11/05/18 05:30 05:30 11:46 WBC 14.2 H RBC 3.12 L Hgb 10.0 L Hct 29.1 L MCV MCH MCHC Plt Count Lymph % (Auto) White % (Auto) Lymph # White # Seg Neutrophils % Seg Neuts % (Manual) Lymphocytes % (Manual) Seg Neutrophils # Seg Neutrophils # Man Lymphocytes # (Manual) POC ABG pH POC ABG pCO2 POC ABG pO2 Sodium Potassium Chloride Carbon Dioxide 21 L BUN 42 H Creatinine Glucose 125 H POC Glucose 157 H Calcium 7.9 L Phosphorus Magnesium Alkaline Phosphatase NT-Pro-B Natriuret Pep Total Protein Albumin Lipase Free T4 11/05/18 11/05/18 11/05/18 17:09 20:03 23:43 WBC RBC Hgb Hct MCV MCH MCHC Plt Count Lymph % (Auto) White % (Auto) Lymph # White # Seg Neutrophils % Seg Neuts % (Manual) Lymphocytes % (Manual) Seg Neutrophils # Seg Neutrophils # Man Lymphocytes # (Manual) POC ABG pH POC ABG pCO2 POC ABG pO2 76 L Sodium Potassium Chloride Carbon Dioxide BUN Creatinine Glucose POC Glucose 142 H 204 H Calcium Phosphorus Magnesium Alkaline Phosphatase NT-Pro-B Natriuret Pep Total Protein Albumin Lipase Free T4 11/06/18 11/06/18 11/06/18 04:21 12:14 17:17 WBC RBC Hgb Hct MCV MCH MCHC Plt Count Lymph % (Auto) White % (Auto) Lymph # White # Seg Neutrophils % Seg Neuts % (Manual) Lymphocytes % (Manual) Seg Neutrophils # Seg Neutrophils # Man Lymphocytes # (Manual) POC ABG pH POC ABG pCO2 POC ABG pO2 Sodium 133 L Potassium Chloride Carbon Dioxide 18 L BUN 47 H Creatinine Glucose 187 H POC Glucose 232 H 199 H Calcium 7.8 L Phosphorus 5.30 H D Magnesium 2.50 H Alkaline Phosphatase NT-Pro-B Natriuret Pep Total Protein Albumin Lipase Free T4 11/06/18 11/06/18 11/07/18 19:46 23:30 00:00 WBC RBC Hgb Hct MCV MCH MCHC Plt Count Lymph % (Auto) White % (Auto) Lymph # White # Seg Neutrophils % Seg Neuts % (Manual) Lymphocytes % (Manual) Seg Neutrophils # Seg Neutrophils # Man Lymphocytes # (Manual) POC ABG pH 7.317 L POC ABG pCO2 50.3 H POC ABG pO2 58 L 57 L Sodium Potassium Chloride Carbon Dioxide BUN Creatinine Glucose POC Glucose 224 H Calcium Phosphorus Magnesium Alkaline Phosphatase NT-Pro-B Natriuret Pep Total Protein Albumin Lipase Free T4 11/07/18 11/07/18 11/07/18 04:55 04:55 04:55 WBC 25.2 H RBC 3.64 L Hgb Hct MCV MCH MCHC Plt Count Lymph % (Auto) White % (Auto) Lymph # White # Seg Neutrophils % Seg Neuts % (Manual) Lymphocytes % (Manual) Seg Neutrophils # Seg Neutrophils # Man Lymphocytes # (Manual) POC ABG pH POC ABG pCO2 POC ABG pO2 Sodium Potassium Chloride Carbon Dioxide BUN 54 H Creatinine Glucose 270 H POC Glucose Calcium 7.9 L Phosphorus 5.00 H Magnesium Alkaline Phosphatase NT-Pro-B Natriuret Pep 4507 H Total Protein Albumin Lipase Free T4 11/07/18 11/07/18 11/07/18 05:46 08:08 11:52 WBC RBC Hgb Hct MCV MCH MCHC Plt Count Lymph % (Auto) White % (Auto) Lymph # White # Seg Neutrophils % Seg Neuts % (Manual) Lymphocytes % (Manual) Seg Neutrophils # Seg Neutrophils # Man Lymphocytes # (Manual) POC ABG pH POC ABG pCO2 47.6 H POC ABG pO2 106 H Sodium Potassium Chloride Carbon Dioxide BUN Creatinine Glucose POC Glucose 266 H 323 H Calcium Phosphorus Magnesium Alkaline Phosphatase NT-Pro-B Natriuret Pep Total Protein Albumin Lipase Free T4 11/07/18 11/07/18 11/07/18 12:29 17:57 23:48 WBC RBC Hgb Hct MCV MCH MCHC Plt Count Lymph % (Auto) White % (Auto) Lymph # White # Seg Neutrophils % Seg Neuts % (Manual) Lymphocytes % (Manual) Seg Neutrophils # Seg Neutrophils # Man Lymphocytes # (Manual) POC ABG pH POC ABG pCO2 POC ABG pO2 Sodium Potassium Chloride Carbon Dioxide BUN Creatinine Glucose POC Glucose 325 H 286 H 231 H Calcium Phosphorus Magnesium Alkaline Phosphatase NT-Pro-B Natriuret Pep Total Protein Albumin Lipase Free T4 11/08/18 11/08/18 11/08/18 03:58 05:05 05:05 WBC 18.4 H RBC 3.20 L Hgb 10.0 L Hct 29.7 L MCV MCH MCHC Plt Count Lymph % (Auto) White % (Auto) Lymph # White # Seg Neutrophils % Seg Neuts % (Manual) Lymphocytes % (Manual) Seg Neutrophils # Seg Neutrophils # Man Lymphocytes # (Manual) POC ABG pH 7.524 H POC ABG pCO2 34.3 L POC ABG pO2 Sodium Potassium Chloride Carbon Dioxide BUN 61 H Creatinine Glucose 253 H POC Glucose Calcium 7.6 L Phosphorus Magnesium Alkaline Phosphatase NT-Pro-B Natriuret Pep Total Protein Albumin Lipase Free T4 11/08/18 11/08/18 11/08/18 05:28 11:28 18:21 WBC RBC Hgb Hct MCV MCH MCHC Plt Count Lymph % (Auto) White % (Auto) Lymph # White # Seg Neutrophils % Seg Neuts % (Manual) Lymphocytes % (Manual) Seg Neutrophils # Seg Neutrophils # Man Lymphocytes # (Manual) POC ABG pH POC ABG pCO2 POC ABG pO2 Sodium Potassium Chloride Carbon Dioxide BUN Creatinine Glucose POC Glucose 295 H 253 H 225 H Calcium Phosphorus Magnesium Alkaline Phosphatase NT-Pro-B Natriuret Pep Total Protein Albumin Lipase Free T4 11/09/18 11/09/18 11/09/18 00:57 04:06 06:06 WBC RBC Hgb Hct MCV MCH MCHC Plt Count Lymph % (Auto) White % (Auto) Lymph # White # Seg Neutrophils % Seg Neuts % (Manual) Lymphocytes % (Manual) Seg Neutrophils # Seg Neutrophils # Man Lymphocytes # (Manual) POC ABG pH 7.509 H POC ABG pCO2 POC ABG pO2 Sodium Potassium Chloride Carbon Dioxide BUN Creatinine Glucose POC Glucose 218 H 199 H Calcium Phosphorus Magnesium Alkaline Phosphatase NT-Pro-B Natriuret Pep Total Protein Albumin Lipase Free T4 11/09/18 11/09/18 11/09/18 06:51 06:51 12:07 WBC 13.5 H RBC 2.97 L Hgb 9.3 L Hct 27.6 L MCV MCH MCHC Plt Count Lymph % (Auto) White % (Auto) Lymph # White # Seg Neutrophils % Seg Neuts % (Manual) Lymphocytes % (Manual) Seg Neutrophils # Seg Neutrophils # Man Lymphocytes # (Manual) POC ABG pH POC ABG pCO2 POC ABG pO2 Sodium Potassium Chloride 96.5 L Carbon Dioxide 32 H BUN 58 H Creatinine Glucose 191 H POC Glucose 212 H Calcium 7.5 L Phosphorus Magnesium Alkaline Phosphatase NT-Pro-B Natriuret Pep Total Protein Albumin Lipase Free T4 11/09/18 11/10/18 11/10/18 18:29 00:09 04:21 WBC RBC Hgb Hct MCV MCH MCHC Plt Count Lymph % (Auto) White % (Auto) Lymph # White # Seg Neutrophils % Seg Neuts % (Manual) Lymphocytes % (Manual) Seg Neutrophils # Seg Neutrophils # Man Lymphocytes # (Manual) POC ABG pH 7.467 H POC ABG pCO2 49.9 H POC ABG pO2 76 L Sodium Potassium Chloride Carbon Dioxide BUN Creatinine Glucose POC Glucose 192 H 214 H Calcium Phosphorus Magnesium Alkaline Phosphatase NT-Pro-B Natriuret Pep Total Protein Albumin Lipase Free T4 11/10/18 11/10/18 11/10/18 04:39 04:39 06:05 WBC 14.3 H RBC 3.09 L Hgb 9.7 L Hct 28.9 L MCV MCH MCHC Plt Count Lymph % (Auto) White % (Auto) Lymph # White # Seg Neutrophils % Seg Neuts % (Manual) Lymphocytes % (Manual) Seg Neutrophils # Seg Neutrophils # Man Lymphocytes # (Manual) POC ABG pH POC ABG pCO2 POC ABG pO2 Sodium Potassium Chloride 97.5 L Carbon Dioxide 31 H BUN 53 H Creatinine Glucose 196 H POC Glucose 202 H Calcium 7.7 L Phosphorus Magnesium Alkaline Phosphatase NT-Pro-B Natriuret Pep Total Protein Albumin Lipase Free T4 11/10/18 11/10/18 11/11/18 12:32 17:16 00:06 WBC RBC Hgb Hct MCV MCH MCHC Plt Count Lymph % (Auto) White % (Auto) Lymph # White # Seg Neutrophils % Seg Neuts % (Manual) Lymphocytes % (Manual) Seg Neutrophils # Seg Neutrophils # Man Lymphocytes # (Manual) POC ABG pH POC ABG pCO2 POC ABG pO2 Sodium Potassium Chloride Carbon Dioxide BUN Creatinine Glucose POC Glucose 197 H 200 H 177 H Calcium Phosphorus Magnesium Alkaline Phosphatase NT-Pro-B Natriuret Pep Total Protein Albumin Lipase Free T4 11/11/18 11/11/18 11/11/18 04:43 05:24 05:50 WBC 14.1 H RBC 2.92 L Hgb 9.1 L Hct 27.0 L MCV MCH MCHC Plt Count Lymph % (Auto) White % (Auto) Lymph # White # Seg Neutrophils % Seg Neuts % (Manual) Lymphocytes % (Manual) Seg Neutrophils # Seg Neutrophils # Man Lymphocytes # (Manual) POC ABG pH POC ABG pCO2 50.1 H POC ABG pO2 Sodium Potassium Chloride Carbon Dioxide BUN Creatinine Glucose POC Glucose 199 H Calcium Phosphorus Magnesium Alkaline Phosphatase NT-Pro-B Natriuret Pep Total Protein Albumin Lipase Free T4 11/11/18 11/11/18 11/11/18 05:50 12:00 17:57 WBC RBC Hgb Hct MCV MCH MCHC Plt Count Lymph % (Auto) White % (Auto) Lymph # White # Seg Neutrophils % Seg Neuts % (Manual) Lymphocytes % (Manual) Seg Neutrophils # Seg Neutrophils # Man Lymphocytes # (Manual) POC ABG pH POC ABG pCO2 POC ABG pO2 Sodium Potassium 3.5 L Chloride Carbon Dioxide 34 H BUN 47 H Creatinine 0.5 L Glucose 169 H POC Glucose 168 H 194 H Calcium 8.2 L Phosphorus Magnesium Alkaline Phosphatase 142 H NT-Pro-B Natriuret Pep Total Protein 4.4 L Albumin 2.1 L Lipase Free T4 11/11/18 11/12/18 11/12/18 23:26 05:32 09:26 WBC RBC Hgb Hct MCV MCH MCHC Plt Count Lymph % (Auto) White % (Auto) Lymph # White # Seg Neutrophils % Seg Neuts % (Manual) Lymphocytes % (Manual) Seg Neutrophils # Seg Neutrophils # Man Lymphocytes # (Manual) POC ABG pH POC ABG pCO2 POC ABG pO2 Sodium Potassium Chloride Carbon Dioxide BUN Creatinine Glucose POC Glucose 181 H 186 H 158 H Calcium Phosphorus Magnesium Alkaline Phosphatase NT-Pro-B Natriuret Pep Total Protein Albumin Lipase Free T4 11/12/18 11/12/18 11/12/18 11:42 17:39 23:25 WBC RBC Hgb Hct MCV MCH MCHC Plt Count Lymph % (Auto) White % (Auto) Lymph # White # Seg Neutrophils % Seg Neuts % (Manual) Lymphocytes % (Manual) Seg Neutrophils # Seg Neutrophils # Man Lymphocytes # (Manual) POC ABG pH POC ABG pCO2 POC ABG pO2 Sodium Potassium Chloride Carbon Dioxide BUN Creatinine Glucose POC Glucose 141 H 183 H 147 H Calcium Phosphorus Magnesium Alkaline Phosphatase NT-Pro-B Natriuret Pep Total Protein Albumin Lipase Free T4 Allied health notes reviewed: nursing
[2018-11-13] MEDS: LOPRESSOR IV SCH ×3 (09:19→18:59)
[2018-11-13] MEDS: MYCAMINE 100 MG in NACL 0.9% 100 ML IV SCH (09:28)
[2018-11-13] MEDS: PROTONIX IV SCH (09:28)
[2018-11-13] MEDS: SODIUM CHLORIDE FLUSH SYRINGE 10 ML IV SCH ×2 (09:39→21:10)
--- NOTE | 2018-11-13 11:29 | Progress Note ---
Assessment and Plan Cultures: Blood cultures 10/22/2018 no growth Tracheal asp cultures 10/28/2018: E.coli and Stenotrophomonas. 10/30/2018 blood culture: Ayla glabrata 11/03/2018 fungal blood culture: no growth thus far Assessment: 73 y/o female with history of COPD, hypertension, lupus, fibromyalgia, opioid dependence admitted on 10/22/2018 due to 3-day history of intractable nausea, vomiting, diarrhea: 1) SIRS v/s sepsis: fever resolved. Etiology initially most likely aspiration pneumonia +/- intra-abdominal source from contained gastric perforation, now also with Candidemia. 2) Candidemia due to Ayla glabrata: in the setting of TPN and PICC line. PICC removed. Has temporary central line. TTE not optimal quality, but repeat fungal blood cultures are negative, so no need for LAUREN. Continue IV Micafungin and f/u fungal blood cultures. 3) Acute respiratory failure: pneumonia and fluid overload. Extubated 11/05/2018 and now reintubated 11/07/2018. Planned for trach. 4) Presumed aspiration pneumonia v/s HAP: Tracheal asp cultures 10/28/2018 with E.coli and Stenotrophomonas. Stenotrophomonas is a known colonizer in patients with structural lung disease or tracheostomy tubes/ET tubes, not generally considered very virulent. Given her prolonged and complicated hospital stay, com pleted a 10 day course of abx. 5) Contained gastric perforation: Gen Surgery following. Planned for conservative management. Follow up CT showed no contrast leak. Now on tube feeds. 6) ADWOA: improved. Recommendations: - continue IV Micafungin complete 14 days from negative blood cultures until 11/16/2018 - still awaiting susceptibilities on the Ayla glabrata isolate, called micro lab twice today and also left a message - awaiting trach today Phong Joy MD [facility] C: [phone] O: [phone] F: [phone] Subjective Date of service: 11/13/18 Principal diagnosis: respiratory failure Interval history: No fever. Doing well. Awaiting trach. No other complaints. Awake, communicative, still on vent. Objective - Exam Narrative Exam: Physical Exam: Constitutional: awake, intubated, no distress Head, Ears, Nose: Normocephalic, atraumatic. External ears, nose normal Eyes: Conjunctivae/corneas clear. No icterus. No ptosis. Neck: intubated. RIJ central line + Oral: intubated Cardiovascular: S1, S2 normal, no murmur heard Respiratory: bilateral coarse sounds with rhonchi + GI: Soft, non-tender; bowel sounds +, No peritoneal signs Musculoskeletal: improving edema of extremities. Skin: No rash or abscess Hem/Lymphatic: No palpable cervical or supraclavicular nodes. No lymphangitis Psych: no agitation Neurological: awake, exam limited due to vent - Constitutional Vitals: Vital Signs Temp Pulse Resp BP Pulse Ox 97.6 F 104 H 19 113/50 98 11/13/18 08:00 11/13/18 10:30 11/13/18 10:30 11/13/18 10:30 11/13/18 10:30 Temperature -Last 24 Hours Temperature 97.6 F Temperature 98.8 F Temperature 99.0 F Temperature 98.9 F Temperature 98.3 F Temperature 98.0 F - Labs CBC & Chem 7: 11/11/18 05:50 11/11/18 05:50 Labs: Abnormal lab results 11/12/18 11/12/18 11/12/18 Range/Units 11:42 17:39 23:25 POC Glucose 141 H 183 H 147 H (70-105)
[2018-11-13] MEDS: ATIVAN IV PRN ×2 (11:57→18:00)
--- NOTE | 2018-11-13 12:53 | Progress Note ---
Assessment and Plan Pt remains intubated, for trach today. Optimize HR - increase IV lopressor dosage. Agree with IV lasix. The patient has been seen in conjunction with Dr. Stoner who agrees with the assessment and plan of care. - Patient Problems (1) Atrial tachycardia, paroxysmal Current Visit: Yes Status: Acute (2) Acute heart failure with preserved ejection fraction Current Visit: Yes Status: Acute (3) Acute respiratory failure Current Visit: Yes Status: Acute Qualifiers: Respiratory failure complication: hypoxia Qualified Code(s): J96.01 - Acute respiratory failure with hypoxia (4) Perforated gastric ulcer Current Visit: Yes Status: Acute (5) Intractable nausea and vomiting Current Visit: Yes Status: Acute (6) Partial small bowel obstruction Current Visit: Yes Status: Acute (7) COPD (chronic obstructive pulmonary disease) Current Visit: Yes Status: Chronic (8) History of hypertension Current Visit: Yes Status: Chronic (9) ADWOA (acute kidney injury) Current Visit: Yes Status: Acute (10) Hypokalemia Current Visit: Yes Status: Acute Subjective Date of service: 11/13/18 Principal diagnosis: respiratory failure Interval history: pt remains intubated, alert, in ST on tele. Objective Last Vital Signs Temp 97.5 F L 11/13/18 12:00 Pulse 136 H 11/13/18 12:30 Resp 20 11/13/18 12:30 BP 124/52 11/13/18 12:30 Pulse Ox 94 11/13/18 12:30 - Physical Examination General: Other (intubated) HEENT: Positive: EOMI, Normocephaly, Mucus Membranes Moist Neck: Positive: neck supple, trachea midline Cardiac: Positive: Regular Rhythm, S1/S2, Tachycardia Lungs: Positive: Decreased Breath Sounds, Rhonchi, Ventilated Respirations Neuro: Positive: Other (intubated) Abdomen: Positive: Soft. Negative: Tender Skin: Positive: Clear. Negative: Rash Musculoskeletal: Decreased Range of Motion, Normal Range of Motion Extremities: Present: normal. Absent: edema - Imaging and Cardiology EKG: image reviewed Echo: report reviewed (EF 50%, trace TR, minimal pericardial effusion. ) - EKG Sinus rhythms and dysrhythmias: sinus rhythm - Allied health notes Allied health notes reviewed: nursing
[2018-11-13] MEDS ORDERED: DIFLUCAN IV ONE (12:57)
[2018-11-13] MEDS ORDERED: DIPRIVAN 10 MG/ML IV ONE (13:09)
[2018-11-13] MEDS ORDERED: VERSED ONE (13:10)
--- NOTE | 2018-11-13 13:13 | Progress Note ---
Assessment and Plan Assessment and plan: Gastric perforation. Repeat CT scan on 10/30 revealed pSBO resolved, no evidence for bowel ischemia. Small contained gastric perforation at lesser curve. No gross free air or contrast extravasation. Surgery recommends conservative management Sepsis/candidemia. Etiology is due to Ayla glabrata. Patient with TPN and PICC line. PICC line removed. Repeat fungal cultures are negative. Continue I V antifungal and follow-up blood cultures. Removed current central line and inserted midline. ID started fluconazole 11/13/18 and discontinued micafungin. Thrombocytopenia. Etiology likely secondary to sepsis. Hematology following. Bilateral upper lobe/aspiration pneumonia. Sputum culture positive for Escherichia coli and stenotrophomonas. Continue antibiotics per ID. Partial small bowel obstruction. Continue NGT per surgery. Acute exacerbation COPD. Scheduled Duo Nebs and Pulmicort; albuterol when necessary Acute hypoxic respiratory failure. Patient was reintubated on 10/28/18 and currently on mechanical ventilation. Etiology secondary to COPD/pneumonia/sepsis. Extubated 11/05, re-intubated 11/07 He has been intubated 3 times now and trach has been recommended. 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 Patient for tracheostomy 11/13/18. Presumed aspiration pneumonia versus healthcare associated pneumonia. Tracheal aspirate cultures from 10/28 with Escherichia coli and stenotrophomonas. Completed antibiotics. Hypokalemia. Replete potassium as needed. Hypertension. IV hydralazine when necessary Lupus. Supportive care Fibromyalgia. supportive care History of opioid dependence ADWOA due to vasomotor nephropathy, now resolved The high probability of a clinically significant, sudden or life threatening deterioration of the [GI and respiratory] system(s) required my full and direct attention, intervention and personal management. The aggregate critical care time was [32] minutes. This time is in addition to time spent performing reported procedures but includes the following: [x] Data Review and interpretation [x] Patient assessment and monitoring of vital signs [x] Documentation [x] Medication orders and management History Interval history: Patient is 73-year-old female with history of hypertension, lupus, fibromyalgia, COPD, opioid dependence (follows Dr. Felix Muñiz at pain clinic) who prese nted to [facility] ED with complaints of intractable nausea, vomiting, diarrhea for 3 days. On initial presentation to the ED she was found to be tachycardiac with heart rate 113 BPM, leukocytosis with WBC 11.5, elevated BUN/Cr 51/2.1. Patient has history of COPD and at baseline does not require home oxygen use. She was admitted to [facility]. GI was consulted, she was evaluated. CT Abdomen revealed partial SBO versus ileus therefore surgeon consulted. Also patient became more short of breath, placed on BIPAP with no improvement then intubated 10/26/18 for acute resp failure and transferred to ICU. Obstruction series completed on 10/27 which showed improved but small bowel and stomach dilatation. Follow-up series on 10/28 showed no significant change since previous study. NG tube was removed due to patient not tolerating/refusing. Patient was placed back on BiPAP but decompensated on the night of 10/28/18 and had to be reintubated. Patient currently on mechanical ventilation. Patient has had further complications now with findings consistent with contained gastric perforation on repeat CT scan 10/30, managed conservatively. She was extubated 11/05, re-intubated 11/07/18. This is 3rd intubation so Tracheostomy has been recommended and being planned. No PEG yet, for at least 2 weeks because of recent gastric perforation. Hospitalist Physical - Constitutional Vitals: Temp Pulse Resp BP Pulse Ox 97.5 F L 136 H 20 124/52 94 11/13/18 12:00 11/13/18 12:30 11/13/18 12:30 11/13/18 12:30 11/13/18 12:30 General appearance: Present: other (intubated, opens eyes to commands) - EENT Eyes: Present: PERRL, EOM intact ENT: hearing intact, clear oral mucosa, dentition normal - Neck Neck: Present: supple, normal ROM - Respiratory Respiratory effort: normal Respiratory: bilateral: CTA - Cardiovascular Rhythm: regular Heart Sounds: Present: S1 & S2. Absent: gallop, rub - Extremities Extremities: no ischemia, No edema, Full ROM - Abdominal General gastrointestinal: soft, non-tender, non-distended, normal bowel sounds - Integumentary Integumentary: Present: clear, warm, dry - Neurologic Neurologic: CNII-XII intact, moves all extremities Results - Labs CBC & Chem 7: 11/11/18 05:50 11/11/18 05:50 Labs: Laboratory Last Values WBC 14.1 K/mm3 (4.5-11.0) H 11/11/18 05:50 RBC 2.92 M/mm3 (3.65-5.03) L 11/11/18 05:50 Hgb 9.1 gm/dl (10.1-14.3) L 11/11/18 05:50 Hct 27.0 % (30.3-42.9) L 11/11/18 05:50 MCV 93 fl (79-97) 11/11/18 05:50 MCH 31 pg (28-32) 11/11/18 05:50 MCHC 34 % (30-34) 11/11/18 05:50 RDW 14.5 % (13.2-15.2) 11/11/18 05:50 Plt Count 188 K/mm3 (140-440) 11/11/18 05:50 Lymph % (Auto) 10.2 % (13.4-35.0) L 10/23/18 04:32 Graves % (Auto) 14.7 % (0.0-7.3) H 10/23/18 04:32 Eos % (Auto) 0.1 % (0.0-4.3) 10/23/18 04:32 Baso % (Auto) 0.1 % (0.0-1.8) 10/23/18 04:32 Lymph # 0.7 K/mm3 (1.2-5.4) L 10/23/18 04:32 Graves # 1.0 K/mm3 (0.0-0.8) H 10/23/18 04:32 Eos # 0.0 K/mm3 (0.0-0.4) 10/23/18 04:32 Baso # 0.0 K/mm3 (0.0-0.1) 10/23/18 04:32 Add Manual Diff Complete 11/04/18 09:39 Total Counted 100 11/04/18 09:39 Seg Neutrophils % Distribution Lead 11/04/18 09:39 Seg Neuts % (Manual) 98.0 % (40.0-70.0) H 11/04/18 09:39 0 % 11/04/18 09:39 1.0 % (13.4-35.0) L 11/04/18 09:39 Reactive Lymphs % (Man) 0 % 11/04/18 09:39 0 % (0.0-7.3) 11/04/18 09:39 1.0 % (0.0-4.3) 11/04/18 09:39 0 % (0.0-1.8) 11/04/18 09:39 0 % 11/04/18 09:39 0 % 11/04/18 09:39 0 % 11/04/18 09:39 0 % 11/04/18 09:39 Nucleated RBC % Not Reportable 11/04/18 09:39 Seg Neutrophils # 5.2 K/mm3 (1.8-7.7) 10/23/18 04:32 Seg Neutrophils # Man 14.9 K/mm3 (1.8-7.7) H 11/04/18 09:39 Band Neutrophils # 0.0 K/mm3 11/04/18 09:39 0.2 K/mm3 (1.2-5.4) L 11/04/18 09:39 Abs React Lymphs (Man) 0.0 K/mm3 11/04/18 09:39 0.0 K/mm3 (0.0-0.8) 11/04/18 09:39 0.2 K/mm3 (0.0-0.4) 11/04/18 09:39 0.0 K/mm3 (0.0-0.1) 11/04/18 09:39 0.0 K/mm3 11/04/18 09:39 0.0 K/mm3 11/04/18 09:39 0.0 K/mm3 11/04/18 09:39 Blast Cells # 0.0 K/mm3 11/04/18 09:39 WBC Morphology Not Reportable 11/04/18 09:39 Hypersegmented Neuts Not Reportable 11/04/18 09:39 Hyposegmented Neuts Not Reportable 11/04/18 09:39 Hypogranular Neuts Not Reportable 11/04/18 09:39 Not Reportable 11/04/18 09:39 Not Reportable 11/04/18 09:39 Not Reportable 11/04/18 09:39 Not Reportable 11/04/18 09:39 Not Reportable 11/04/18 09:39 Not Reportable 11/04/18 09:39 Consistent w auto 11/04/18 09:39 Not Reportable 11/04/18 09:39 Plt Clumps, EDTA Not Reportable 11/04/18 09:39 Not Reportable 11/04/18 09:39 Not Reportable 11/04/18 09:39 Not Reportable 11/04/18 09:39 Plt Morphology Comment Not Reportable 11/04/18 09:39 RBC Morphology Normal 11/04/18 09:39 Dimorphic RBCs Not Reportable 11/04/18 09:39 Not Reportable 11/04/18 09:39 Not Reportable 11/04/18 09:39 Not Reportable 11/04/18 09:39 Not Reportable 11/04/18 09:39 Not Reportable 11/04/18 09:39 Not Reportable 11/04/18 09:39 Not Reportable 11/04/18 09:39 Not Reportable 11/04/18 09:39 Not Reportable 11/04/18 09:39 Not Reportable 11/04/18 09:39 Not Reportable 11/04/18 09:39 Not Reportable 11/04/18 09:39 Not Reportable 11/04/18 09:39 Not Reportable 11/04/18 09:39 Not Reportable 11/04/18 09:39 Not Reportable 11/04/18 09:39 Not Reportable 11/04/18 09:39 Not Reportable 11/04/18 09:39 Not Reportable 11/04/18 09:39 Acanthocytes (Spur) Not Reportable 11/04/18 09:39 Rouleaux Not Reportable 11/04/18 09:39 Not Reportable 11/04/18 09:39 Not Reportable 11/04/18 09:39 Not Reportable 11/04/18 09:39 Not Reportable 11/04/18 09:39 Hem Pathologist Commnt No 11/04/18 09:39 Heparin Anti-Xa, Unfract Negative (Negative) 10/30/18 13:58 POC ABG pH 7.447 (7.35-7.45) 11/11/18 04:43 POC ABG pCO2 50.1 (35-45) H 11/11/18 04:43 POC ABG pO2 100 (80-105) 11/11/18 04:43 POC ABG HCO3 34.5 (22-26 mml/L) 11/11/18 04:43 POC ABG Total CO2 36 (23-27mmol/L) 11/11/18 04:43 POC ABG O2 Sat 98 11/11/18 04:43 POC ABG Base Excess 10 ((-2) - (+3)mmol/L) 11/11/18 04:43 35 % 11/11/18 04:43 Sodium 142 mmol/L (137-145) 11/11/18 05:50 Potassium 3.5 mmol/L (3.6-5.0) L 11/11/18 05:50 Chloride 99.0 mmol/L (98-107) 11/11/18 05:50 Carbon Dioxide 34 mmol/L (22-30) H 11/11/18 05:50 13 mmol/L 11/11/18 05:50 BUN 47 mg/dL (7-17) H 11/11/18 05:50 0.5 mg/dL (0.7-1.2) L 11/11/18 05:50 Estimated GFR > 60 ml/min 11/11/18 05:50 94 % 11/11/18 05:50 Glucose 169 mg/dL (65-100) H 11/11/18 05:50 POC Glucose 71 (70-105) 11/13/18 05:24 Lactic Acid 1.60 mmol/L (0.7-2.0) 10/26/18 15:03 Calcium 8.2 mg/dL (8.4-10.2) L 11/11/18 05:50 Phosphorus 2.80 mg/dL (2.5-4.5) 11/11/18 05:50 Magnesium 1.80 mg/dL (1.7-2.3) 11/11/18 05:50 0.30 mg/dL (0.1-1.2) 11/11/18 05:50 AST 26 units/L (5-40) 11/11/18 05:50 ALT 28 units/L (7-56) 11/11/18 05:50 142 units/L (35-129) H 11/11/18 05:50 NT-Pro-B Natriuret Pep 4507 pg/mL (0-900) H 11/07/18 04:55 4.4 g/dL (6.3-8.2) L 11/11/18 05:50 2.1 g/dL (3.9-5) L 11/11/18 05:50 0.9 % 11/11/18 05:50 Triglycerides 132 mg/dL (2-149) 11/01/18 06:40 10 units/L (13-60) L 10/22/18 15:54 See scanned result 10/30/18 13:58 TSH 3.150 mlU/mL (0.270-4.200) 10/31/18 17:00 Free T4 0.49 ng/dL (0.76-1.46) L 10/31/18 17:00 Dulce (Yellow) 10/22/18 19:10 Clear (Clear) 10/22/18 19:10 5.0 (5.0-7.0) 10/22/18 19:10 Ur Specific [place] 1.018 (1.003-1.030) 10/22/18 19:10 30 mg/dl mg/dL (Negative) 10/22/18 19:10 Neg mg/dL (Negative) 10/22/18 19:10 Tr mg/dL (Negative) 10/22/18 19:10 Neg (Negative) 10/22/18 19:10 Neg (Negative) 10/22/18 19:10 Neg (Negative) 10/22/18 19:10 < 2.0 mg/dL (<2.0) 10/22/18 19:10 Ur Leukocyte Esterase Neg (Negative) 10/22/18 19:10 1.0 /HPF (0.0-6.0) 10/22/18 19:10 3.0 /HPF (0.0-6.0) 10/22/18 19:10 Heparin-induced Plt Ab Negative (Negative) 10/30/18 13:58 UF Heparin High Dose 0 % Release 10/30/18 13:58 KIMO UFH Low Dose 0.1 0 % Release 10/30/18 13:58 KIMO UFH Low Dose 0.5 0 % Release 10/30/18 13:58 Active Medications - Current Medications Current Medications: Generic Name Dose Route Start Last Admin Trade Name Freq PRN Reason Stop Dose Admin Acetaminophen 650 mg 10/22/18 20:10 11/10/18 14:37 Tylenol PO 650 mg Q4H PRN Administration Pain MILD(1-3)/Fever >100.5/PORTER Albuterol 2.5 mg 10/22/18 20:14 11/05/18 16:35 Proventil IH 2.5 mg Q4HRT PRN Administration Shortness Of Breath Lipase/Protease/Amylase 1 each 11/05/18 10:13 Gwendolyn Simpson 10,500 Unit FEEDTUBE PRN PRN For Clogged Feeding Tube Arformoterol Tartrate 15 mcg 11/05/18 20:00 11/13/18 08:43 Brovana Nebu IH 15 mcg Q12HRT RICK Administration Budesonide 0.5 mg 10/23/18 08:00 11/13/18 08:43 Pulmicort IH 0.5 mg Q12HRT RICK Administration Dextrose 50 ml 10/26/18 23:40 10/27/18 00:20 D50w (25gm) Syringe IV 50 ml PRN PRN Administration Hypoglycemia Furosemide 20 mg 11/13/18 18:00 Lasix IV 0600,1800 RICK Gabapentin 600 mg 11/12/18 10:00 11/13/18 07:13 Neurontin PO Not Given Q8HR [facility] Hydralazine HCl 10 mg 10/22/18 21:41 11/07/18 00:04 Apresoline IV 10 mg Q4HR PRN Administration Blood Pressure Hydromorphone HCl 1 mg 11/12/18 09:55 11/13/18 09:22 Dilaudid IV 1 mg Q4H PRN Administration Pain , Severe (7-10) Hydrophilic Ointment 1 applic 11/07/18 09:14 Vaseline Lip Therapy TP Q2HR PRN Dry Lips Potassium Chloride/Dextrose/Sod Cl 20 meq in 1,000 mls @ 75 mls/hr 11/13/18 00:01 D5w/0.45% Nacl/Kcl 20 Meq IV DIRECT RICK Fluconazole 200 mls @ 100 mls/hr 11/14/18 10:00 Diflucan IV Q24HR [facility] Protocol Fluconazole 400 mls @ 100 mls/hr 11/13/18 12:57 Diflucan IV 11/13/18 16:56 ONCE ONE Insulin Human Isoph/Insulin Regular 12 unit 11/10/18 22:00 11/13/18 11:52 Humulin 70/30 SUB-Q Not Given BID [facility] Insulin Human Lispro 0 unit 10/29/18 12:00 11/13/18 06:35 Humalog SUB-Q Not Given Q6HR [facility] Protocol Lorazepam 1 mg 11/06/18 11:00 11/13/18 11:57 Ativan IV 1 mg Q6H PRN Administration Anxiety Methylprednisolone Sodium Succinate 40 mg 11/13/18 14:00 Solu-Medrol IV Q8H [facility] Metoprolol Tartrate 5 mg 11/13/18 13:00 Lopressor IV Q6H [facility] Multi-Ingred Cream/Lotion/Oil/Oint 1 applic 11/07/18 09:14 Artificial Tears Ophth Oint OU Q4HR PRN Dry Eye(s) Ondansetron HCl 4 mg 10/24/18 10:05 10/25/18 17:26 Zofran IV 4 mg Q6H PRN Administration Nausea And Vomiting Oxycodone/Acetaminophen 1 tab 11/05/18 11:16 11/12/18 13:28 Percocet 5/325 PO 1 tab Q6H PRN Administration Pain, Moderate (4-6) Pantoprazole Sodium 40 mg 11/05/18 10:00 11/13/18 09:28 Protonix IV 40 mg DAILY [facility] Administration Phenol 1 spray 10/28/18 10:16 Chloraseptic MM PRN PRN Sore Throat Promethazine HCl 25 mg 10/22/18 20:10 10/22/18 21:21 Phenergan SD 25 mg Q6H PRN Administration Nausea And Vomiting Quetiapine Fumarate 300 mg 11/12/18 10:00 11/13/18 11:52 Seroquel PO Not Given DAILY [facility] Simple Syrup 15 ml 11/05/18 10:13 Simple Syrup FEEDTUBE PRN PRN Hypoglycemia Simple Syrup 30 ml 11/05/18 10:13 Simple Syrup FEEDTUBE PRN PRN Hypoglycemia Sodium Bicarbonate 325 mg 11/05/18 10:13 Sodium Bicarbonate FEEDTUBE PRN PRN For Clogged Feeding Tube Sodium Chloride 10 ml 10/22/18 22:00 11/13/18 09:39 Sodium Chloride Flush Syringe 10 Ml IV 10 ml BID RICK Administration Sodium Chloride 10 ml 10/22/18 20:10 11/09/18 14:29 Sodium Chloride Flush Syringe 10 Ml IV 10 ml PRN PRN Administration LINE FLUSH Nutrition/Malnutrition Assess - Dietary Evaluation Nutrition/Malnutrition Findings: Nutrition Notes Start: 10/23/18 17:03 Freq: Status: Active Protocol: Document 11/12/18 15:31 SANTIAGO (Rec: 11/12/18 15:32 SANTIAGO [id number] [email or web address]) Nutrition Notes Initial or Follow up Brief Note Current Diet TF - Vital AF 1.2 at 35ml/hr Subjective/Other Information Per RN, pt with copious loose stools. Pt will be NPO after midnight for trach placement in am. Nutrition Intervention Follow-Up By: 11/14/18 Additional Comments F/U: resume TF, diarrhea, rectal tube placement
[2018-11-13] MEDS ORDERED: NACL 0.9% 1000 ML 1,000 ML IV ONE (13:23)
--- NOTE | 2018-11-13 14:44 | Procedure Note ---
Date of procedure: 11/13/18 Pre-op diagnosis: Respiratory Failure Post-op diagnosis: same Procedure: Consent was on the chart. Time out was performed. Sterile prep and drape was done. Anesthesia was managed by anesthesia provider. Lidocaine was used to anesthetize an area about two finger breadths above the sternal notch. Transverse incision was made. Blunt dissection was carried down to trachea. Under bronchoscopic guidance, a finder needle was used to enter the trachea. Thereafter, the introducer needle was inserted. It was approximately at the second tracheal ring. Tract was dilated and tracheostomy tube was easily inserted. Balloon was inflated. Position was rechecked via bronchoscopy through the tracheostomy tube. We were at least 2 cm above the rekha. We had good inspiratory and expiratory volumes. CXR shows the tube to be in good position. There were no apparent complications at the end of the case. Findings: normal anatomy Implants: 8 Shiley Trach Anesthesia: MAC Surgeon: MICHELLE CHAVEZ Tomato Grader: OLIVE CHANCE (Bronch) Estimated blood loss: minimal Pathology: none Condition: stable Disposition: ICU
--- NOTE | 2018-11-13 14:52 | Procedure Note ---
Date of procedure: 11/13/18 Pre-op diagnosis: vdrf Post-op diagnosis: same Procedure: fiberoptic bronchoscopy Findings: Time out performed. Bronchoscope was inserted through an adaptor attached to the ETT. Trachea was examined and was clear without exudate or secretions. The ETT was pulled back slowly to 16 cm until the finder needle was able to be inserted into the trachea by Dr. Jaquez. Dr. Jaquez performed the tracheostomy. The needle was seen entering the trachea and wire passed towards the rekha. The tracheostomy was then placed in the usual fashion. Ovidio balloon was seen in the trachea. The bronchoscope was withdrawn from the ETT and placed through the tracheostomy. The tip of the tracheostomy was 4 cm above the rekha. There was no bleeding or secretions. The bronchoscope was withdrawn and vent hooked to the tracheostomy. Tidal volumes were satisfactory and ETT removed. Anesthesia: CHAR Surgeon: OLIVE CHANCE Estimated blood loss: none Pathology: none Condition: stable Disposition: no change
--- NOTE | 2018-11-13 14:59 | XRay Report ---
AP CHEST: HISTORY: Tracheostomy placement A tracheostomy has been inserted at the level of the clavicles. Position appears adequate. There are hazy bilateral lower lobe opacities which could represent atelectasis, effusions or both. The upper lung zones are clear. Heart size is normal. No evidence for pneumothorax or pneumomediastinum. GI tube is followed to the stomach. IMPRESSION: Tracheostomy placement as described. Bibasilar atelectasis or effusions.
[2018-11-13] MEDS: LASIX IV SCH (17:57)
[2018-11-13] MEDS: PERCOCET 5/325 PO PRN (21:17)
[2018-11-14] MEDS: ATIVAN IV PRN ×3 (00:03→19:20)
[2018-11-14] MEDS: TYLENOL PO PRN (00:03)
[2018-11-14] MEDS: HumaLOG SUB-Q SCH ×4 (00:06→17:58)
[2018-11-14] MEDS: LOPRESSOR IV SCH ×4 (01:45→18:02)
[2018-11-14] MEDS: PERCOCET 5/325 PO PRN ×3 (03:25→16:45)
[2018-11-14 04:36] LABS: Iron 31 ug/dL (37-170); Total Iron Binding Capacity 173 mcg/dL (250-450)
[2018-11-14] MEDS: DILAUDID IV PRN ×2 (05:09→13:29)
[2018-11-14] MEDS: LASIX IV SCH ×2 (05:09→17:58)
[2018-11-14] MEDS: NEURONTIN PO SCH ×3 (05:09→21:42)
[2018-11-14] MEDS: SOLU-Medrol IV SCH ×3 (05:09→21:42)
[2018-11-14] MEDS: BROVANA NEBU IH SCH ×2 (07:23→19:58)
[2018-11-14] MEDS: PULMICORT IH SCH ×2 (07:24→19:58)
--- NOTE | 2018-11-14 07:37 | Hem/Onc Progress Note ---
Assessment and Plan 1. h/o Thrombocytopenia, likely medication, pts medical status related. better 2. History of colon surgery in the past, details not clear. 3. History of bowel issues. Seen by surgical team. - pSBO and contained gastric perforation 4. h/o TPN. 5. h/o Ayla, ID following. 6. Chronic obstructive pulmonary disease. 7. Hypertension. 8. History of lupus. 9. Aspiration pneumonia. 10. The patient was on ventilation. 11. Renal impairment. 11/14 pt on vent - pulm following s/p trach anemia - will look into iron - Patient Problems (1) Thrombocytopenia Current Visit: Yes Status: Acute Subjective Date of service: 11/14/18 Principal diagnosis: anemia Interval history: trach done Objective - Constitutional Vitals: Last Vital Signs Temp 97.5 F L 11/14/18 06:21 Pulse 83 11/14/18 07:31 Resp 19 11/14/18 07:31 BP 123/46 11/14/18 07:31 Pulse Ox 100 11/14/18 07:31 Pain Intensity (0-10): denies any pain General appearance: no acute distress Performance status: 4-completely disabled - EENT Eyes: EOM intact ENT: hearing intact Lymph node exam: negative cervical - Neck Neck: normal ROM - Respiratory Respiratory effort: Positive: normal Respiratory: bilateral: CTA (anteriorly) - Cardiovascular Heart Sounds: Present: S1 & S2 Extremities: No edema, normal temperature - Gastrointestinal General gastrointestinal: Present: soft Rectal Exam: deferred - Genitourinary Female genitourinary: Present: deferred - Integumentary Integumentary: warm - Musculoskeletal Musculoskeletal: generalized weakness - Neurologic Neurologic: moves all extremities - Labs Lab Results: Laboratory Results - last 24 hr 11/13/18 11/13/18 11/13/18 12:16 18:10 21:21 POC Glucose 114 H 127 H 185 H Iron TIBC Ferritin 11/13/18 11/14/18 11/14/18 23:11 03:28 03:28 POC Glucose 184 H Iron 31 L TIBC 173 L Ferritin 510.3 H 11/14/18 05:12 POC Glucose 178 H Iron TIBC Ferritin Medications & Allergies - Medications Allergies/Adverse Reactions: Allergies Sulfa (Sulfonamide Antibiotics) Allergy (Intermediate, Verified 10/22/18 16:30) Rash metoclopramide HCl [From Reglan] Allergy (Verified 10/22/18 16:30) Dizziness prochlorperazine [From Compazine] Allergy (Verified 10/22/18 16:30) NECK STIFFNESS Home Medications: Home Medications Medication Instructions Recorded Confirmed Last Taken Type Ondansetron 4 mg PO Q6HR PRN 12/05/16 10/22/18 10/29/17 History Propranolol HCl [Propranolol HCl 60 mg PO DAILY 12/05/16 10/22/18 10/30/17 22:00 History ER] QUEtiapine [SEROquel] 300 mg PO DAILY 12/05/16 10/22/18 10/30/17 History Lasix TAB 40 mg PO PRN PRN 12/07/16 10/22/18 10/24/17 History Percocet 10/325 mg 1 tab PO PRN PRN 12/07/16 10/22/18 10/30/17 History Albuterol Sulfate [Albuterol 0.63% 0.63 mg IH TID PRN 10/22/17 10/22/18 10/29/17 History NEBS] Active Medications: Generic Name Dose Route Start Last Admin Trade Name Freq PRN Reason Stop Dose Admin Acetaminophen 650 mg 10/22/18 20:10 11/14/18 00:03 Tylenol PO 650 mg Q4H PRN Administration Pain MILD(1-3)/Fever >100.5/PORTER Albuterol 2.5 mg 10/22/18 20:14 11/05/18 16:35 Proventil IH 2.5 mg Q4HRT PRN Administration Shortness Of Breath Lipase/Protease/Amylase 1 each 11/05/18 10:13 Pancremaranda Simpson 10,500 Unit FEEDTUBE PRN PRN For Clogged Feeding Tube Arformoterol Tartrate 15 mcg 11/05/18 20:00 11/14/18 07:23 Brovana Nebu IH 15 mcg Q12HRT RICK Administration Budesonide 0.5 mg 10/23/18 08:00 11/14/18 07:24 Pulmicort IH 0.5 mg Q12HRT RICK Administration Dextrose 50 ml 10/26/18 23:40 10/27/18 00:20 D50w (25gm) Syringe IV 50 ml PRN PRN Administration Hypoglycemia Furosemide 20 mg 11/13/18 18:00 11/14/18 05:09 Lasix IV 20 mg 0600,1800 RICK Administration Gabapentin 600 mg 11/12/18 10:00 11/14/18 05:09 Neurontin PO 600 mg Q8HR RICK Administration Hydralazine HCl 10 mg 10/22/18 21:41 11/07/18 00:04 Apresoline IV 10 mg Q4HR PRN Administration Blood Pressure Hydromorphone HCl 1 mg 11/12/18 09:55 11/14/18 05:09 Dilaudid IV 1 mg Q4H PRN Administration Pain , Severe (7-10) Hydrophilic Ointment 1 applic 11/07/18 09:14 Vaseline Lip Therapy TP Q2HR PRN Dry Lips Potassium Chloride/Dextrose/Sod Cl 20 meq in 1,000 mls @ 75 mls/hr 11/13/18 00:01 D5w/0.45% Nacl/Kcl 20 Meq IV DIRECT RICK Fluconazole 200 mls @ 100 mls/hr 11/14/18 10:00 Diflucan IV Q24HR [facility] Protocol Insulin Human Isoph/Insulin Regular 12 unit 11/10/18 22:00 11/13/18 21:19 Humulin 70/30 SUB-Q 12 unit BID RICK Administration Insulin Human Lispro 0 unit 10/29/18 12:00 11/14/18 05:29 Humalog SUB-Q 2 unit Q6HR [facility] Administration Protocol Lorazepam 1 mg 11/06/18 11:00 11/14/18 00:03 Ativan IV 1 mg Q6H PRN Administration Anxiety Methylprednisolone Sodium Succinate 40 mg 11/13/18 14:00 11/14/18 05:09 Solu-Medrol IV 40 mg Q8H RICK Administration Metoprolol Tartrate 5 mg 11/13/18 13:00 11/14/18 06:52 Lopressor IV 5 mg Q6H RICK Administration Multi-Ingred Cream/Lotion/Oil/Oint 1 applic 11/07/18 09:14 Artificial Tears Ophth Oint OU Q4HR PRN Dry Eye(s) Ondansetron HCl 4 mg 10/24/18 10:05 10/25/18 17:26 Zofran IV 4 mg Q6H PRN Administration Nausea And Vomiting Oxycodone/Acetaminophen 1 tab 11/05/18 11:16 11/14/18 03:25 Percocet 5/325 PO 1 tab Q6H PRN Administration Pain, Moderate (4-6) Pantoprazole Sodium 40 mg 11/05/18 10:00 11/13/18 09:28 Protonix IV 40 mg DAILY RICK Administration Phenol 1 spray 10/28/18 10:16 Chloraseptic MM PRN PRN Sore Throat Promethazine HCl 25 mg 10/22/18 20:10 10/22/18 21:21 Phenergan [place] 25 mg Q6H PRN Administration Nausea And Vomiting Quetiapine Fumarate 300 mg 11/12/18 10:00 11/13/18 11:52 Seroquel PO Not Given DAILY RICK Simple Syrup 15 ml 11/05/18 10:13 Simple Syrup FEEDTUBE PRN PRN Hypoglycemia Simple Syrup 30 ml 11/05/18 10:13 Simple Syrup FEEDTUBE PRN PRN Hypoglycemia Sodium Bicarbonate 325 mg 11/05/18 10:13 Sodium Bicarbonate FEEDTUBE PRN PRN For Clogged Feeding Tube Sodium Chloride 10 ml 10/22/18 22:00 11/13/18 21:10 Sodium Chloride Flush Syringe 10 Ml IV 10 ml BID RICK Administration Sodium Chloride 10 ml 10/22/18 20:10 11/09/18 14:29 Sodium Chloride Flush Syringe 10 Ml IV 10 ml PRN PRN Administration LINE FLUSH
--- NOTE | 2018-11-14 07:50 | XRay Report ---
PROCEDURE: XR CHEST 1V AP TECHNIQUE: Chest radiograph single view. HISTORY: follow up respiratory failure COMPARISONS: None . FINDINGS: Heart: Normal. Mediastinum/Vessels: Normal. Lungs/Pleural space: There are bilateral lower lobe infiltrates and small effusions. There is no pne umothorax.. Bony thorax: No acute osseous abnormality. Life support devices: Tracheostomy tube is in proper position. NG tube is in the stomach.. IMPRESSION: Heart size is normal. There are bilateral lower lobe infiltrates and small effusions. There is no pneumothorax.. Tracheostomy tube is in proper position. NG tube is in the stomach.. This document is electronically signed by Dawit Middleton MD., November 14 2018 07:48:41 AM ET
[2018-11-14 09:24] LABS: Hematocrit 25.2 % (30.3-42.9); Hemoglobin 8.4 gm/dl (10.1-14.3); Mean Corpuscular HGB Conc 34 % (30-34); Mean Corpuscular Volume 94 fl (79-97); Platelet Count 297 K/mm3 (140-440); Red Blood Count 2.67 M/mm3 (3.65-5.03); Red Cell Distribution Width 15.1 % (13.2-15.2)
--- NOTE | 2018-11-14 09:33 | Progress Note ---
Assessment and Plan Cultures: Blood cultures 10/22/2018 no growth Tracheal asp cultures 10/28/2018: E.coli and Stenotrophomonas. 10/30/2018 blood culture: Ayla glabrata 11/03/2018 fungal blood culture: no growth thus far Assessment: 73 y/o female with history of COPD, hypertension, lupus, fibromyalgia, opioid dependence admitted on 10/22/2018 due to 3-day history of intractable nausea, vomiting, diarrhea: 1) SIRS v/s sepsis: fever resolved. Etiology initially most likely aspiration pneumonia +/- intra-abdominal source from contained gastric perforation, now also with Candidemia. 2) Candidemia due to Ayla glabrata: in the setting of TPN and PICC line. PICC removed. Has temporary central line. TTE not optimal quality, but repeat fungal blood cultures are negative, so no need for LAUREN. Continue IV Micafungin and f/u fungal blood cultures. 3) Acute respiratory failure: pneumonia and fluid overload. Extubated 11/05/2018 and now reintubated 11/07/2018. Planned for trach. 4) Presumed aspiration pneumonia v/s HAP: Tracheal asp cultures 10/28/2018 with E.coli and Stenotrophomonas. Stenotrophomonas is a known colonizer in patients with structural lung disease or tracheostomy tubes/ET tubes, not generally considered very virulent. Given her prolonged and complicated hospital stay, com pleted a 10 day course of abx. 5) Contained gastric perforation: Gen Surgery following. Planned for conservative management. Follow up CT showed no contrast leak. Now on tube feeds. 6) ADWOA: improved. 7) Diarrhea: ? tfeeds Recommendations: - continue fluconazole 400 mg daily till 11/16/2018. I will be rounding this weekend Ame Garcia MD Infectious Diseases [employer] [facility] M [phone] O [phone] Subjective Date of service: 11/14/18 Principal diagnosis: respiratory failure Interval history: Remains on vent via trach, alert, follows commands, no fever. +diarrhea ROS unable to obtain Objective - Exam Narrative Exam: General appearance: alert follows commands Eyes: anicteric sclerae, moist conjunctivae; no lid-lag; PERRLA HENT: Atraumatic; oropharynx limited Neck: Trach no secretion Lungs: distant BS CV: RRR no murmur Abdomen: Soft, non-tender Extremities: no edema, cyanosis Skin: Normal temperature, turgor and texture; no rash, ulcers or subcutaneous no dules Psych: no agitated Neuro:alert Rectal tube w diarrhea - Constitutional Vitals: Vital Signs Temp Pulse Resp BP Pulse Ox 97.4 F L 85 15 112/36 100 11/14/18 08:00 11/14/18 08:01 11/14/18 08:01 11/14/18 08:01 11/14/18 08:01 Temperature -Last 24 Hours Temperature 97.4 F Temperature 97.5 F Temperature 97.5 F Temperature 98.7 F Temperature 98.2 F Temperature 98.3 F Temperature 99.0 F Temperature 94.9 F Temperature 98.9 F Temperature 97.5 F - Labs CBC & Chem 7: 11/14/18 07:59 11/11/18 05:50 Labs: Abnormal lab results 11/13/18 11/13/18 11/13/18 Range/Units 12:16 18:10 21:21 WBC (4.5-11.0) K/mm3 RBC (3.65-5.03) M/mm3 Hgb (10.1-14.3) gm/dl Hct (30.3-42.9) % POC Glucose 114 H 127 H 185 H (70-105) Iron (37-170) ug/dL TIBC (250-450) mcg/dL Ferritin (13.0-400.0) ng/mL 11/13/18 11/14/18 11/14/18 Range/Units 23:11 03:28 03:28 WBC (4.5-11.0) K/mm3 RBC (3.65-5.03) M/mm3 Hgb (10.1-14.3) gm/dl Hct (30.3-42.9) % POC Glucose 184 H (70-105) Iron 31 L (37-170) ug/dL TIBC 173 L (250-450) mcg/dL Ferritin 510.3 H (13.0-400.0) ng/mL 11/14/18 11/14/18 Range/Units 05:12 07:59 WBC 19.8 H (4.5-11.0) K/mm3 RBC 2.67 L (3.65-5.03) M/mm3 Hgb 8.4 L (10.1-14.3) gm/dl Hct 25.2 L (30.3-42.9) % POC Glucose 178 H (70-105) Iron (37-170) ug/dL TIBC (250-450) mcg/dL Ferritin (13.0-400.0) ng/mL
[2018-11-14] MEDS: DIFLUCAN 200 ML IV SCH (09:35)
[2018-11-14] MEDS: PROTONIX IV SCH (09:35)
[2018-11-14] MEDS: SODIUM CHLORIDE FLUSH SYRINGE 10 ML IV SCH ×2 (09:36→21:43)
--- NOTE | 2018-11-14 10:42 | Progress Note ---
Assessment and Plan ARF ,failure to wean ,prolonged vent support. Sepsis/Fungemia. On antibiotics, suspected secondary to PICC line Bilateral upper lobe pneumonia. Completed antibiotics Bilateral pleural effusions with left lower lung atelectasis. On Lasix , good diuresis.f/u CXR with some improvement? Partial bowel obstruction, perforation. Improved Diarrhea. No fever. On oral nutrition Compensated respiratory acidosis improved Chronic pain medications, anti-psychotic therapy. Progressively increased demand for narcotics in the context of hypercapnic failure, chronic Thrombocytopenia. Improved PAT, tachy-bradycardia episodes. Improved COPD. Rec Decrease IV steroids as tolerated Lasix 20 mg twice a day and monitor electrolytes, renal function SBT in the morning off sedation after tracheostomy Continue nebulizer therapy Long-term placement planning Complete scheduled antibiotics Monitor narcotics Discussed with patient,spouse and staff in detail. All questions answered. Critical care time was 31 minutes of [id number] evaluation and coordination of care Subjective Date of service: 11/14/18 Principal diagnosis: respiratory failure Interval history: No events, on vent Objective Vital Signs - 12hr 11/13/18 11/13/18 11/13/18 23:00 23:08 23:30 Temperature Pulse Rate 103 H 116 H 88 Pulse Rate [ Anterior Bilateral Throughout] Pulse Rate [ From Monitor] Respiratory 16 16 Rate Respiratory Rate [Anterior Bilateral Throughout] Blood Pressure 108/35 108/35 99/41 O2 Sat by Pulse 99 98 98 Oximetry O2 Sat by Pulse Oximetry [ Assessment] 11/14/18 11/14/18 11/14/18 00:00 00:30 01:00 Temperature 98.3 F Pulse Rate 104 H 122 H 86 Pulse Rate [ Anterior Bilateral Throughout] Pulse Rate [ 108 H From Monitor] Respiratory 19 16 16 Rate Respiratory Rate [Anterior Bilateral Throughout] Blood Pressure 112/55 111/53 103/43 O2 Sat by Pulse 98 97 98 Oximetry O2 Sat by Pulse Oximetry [ Assessment] 11/14/18 11/14/18 11/14/18 01:14 01:30 01:45 Temperature 98.2 F Pulse Rate 92 H 90 Pulse Rate [ Anterior Bilateral Throughout] Pulse Rate [ From Monitor] Respiratory 17 Rate Respiratory Rate [Anterior Bilateral Throughout] Blood Pressure 106/41 98/43 O2 Sat by Pulse 98 Oximetry O2 Sat by Pulse Oximetry [ Assessment] 11/14/18 11/14/18 11/14/18 02:00 02:30 03:01 Temperature Pulse Rate 116 H 119 H 101 H Pulse Rate [ Anterior Bilateral Throughout] Pulse Rate [ From Monitor] Respiratory 17 17 19 Rate Respiratory Rate [Anterior Bilateral Throughout] Blood Pressure 98/43 110/53 114/59 O2 Sat by Pulse 98 97 98 Oximetry O2 Sat by Pulse Oximetry [ Assessment] 11/14/18 11/14/18 11/14/18 03:25 03:30 04:00 Temperature 98.7 F Pulse Rate 90 95 H 87 Pulse Rate [ Anterior Bilateral Throughout] Pulse Rate [ 108 H From Monitor] Respiratory 17 18 Rate Respiratory Rate [Anterior Bilateral Throughout] Blood Pressure 114/59 124/51 120/46 O2 Sat by Pulse 100 100 98 Oximetry O2 Sat by Pulse Oximetry [ Assessment] 11/14/18 11/14/18 11/14/18 04:30 05:00 05:31 Temperature Pulse Rate 85 124 H 96 H Pulse Rate [ Anterior Bilateral Throughout] Pulse Rate [ From Monitor] Respiratory 16 21 20 Rate Respiratory Rate [Anterior Bilateral Throughout] Blood Pressure 114/43 124/59 120/41 O2 Sat by Pulse 99 100 98 Oximetry O2 Sat by Pulse Oximetry [ Assessment] 11/14/18 11/14/18 11/14/18 06:00 06:11 06:21 Temperature 97.5 F L 97.5 F L Pulse Rate 90 Pulse Rate [ Anterior Bilateral Throughout] Pulse Rate [ From Monitor] Respiratory 18 Rate Respiratory Rate [Anterior Bilateral Throughout] Blood Pressure 122/53 O2 Sat by Pulse 100 Oximetry O2 Sat by Pulse Oximetry [ Assessment] 11/14/18 11/14/18 11/14/18 06:30 06:52 07:00 Temperature Pulse Rate 96 H 89 78 Pulse Rate [ Anterior Bilateral Throughout] Pulse Rate [ From Monitor] Respiratory 18 18 Rate Respiratory Rate [Anterior Bilateral Throughout] Blood Pressure 126/52 126/52 119/44 O2 Sat by Pulse 100 99 Oximetry O2 Sat by Pulse Oximetry [ Assessment] 11/14/18 11/14/18 11/14/18 07:24 07:25 07:31 Temperature Pulse Rate 87 83 Pulse Rate [ 82 Anterior Bilateral Throughout] Pulse Rate [ From Monitor] Respiratory 19 Rate Respiratory 17 Rate [Anterior Bilateral Throughout] Blood Pressure 119/44 123/46 O2 Sat by Pulse 100 100 Oximetry O2 Sat by Pulse 100 Oximetry [ Assessment] 11/14/18 11/14/18 11/14/18 07:36 07:40 08:00 Temperature 97.4 F L Pulse Rate Pulse Rate [ 96 H Anterior Bilateral Throughout] Pulse Rate [ 84 From Monitor] Respiratory Rate Respiratory 12 Rate [Anterior Bilateral Throughout] Blood Pressure O2 Sat by Pulse 100 99 Oximetry O2 Sat by Pulse Oximetry [ Assessment] 11/14/18 11/14/18 11/14/18 08:01 08:30 09:00 Temperature Pulse Rate 85 91 H 94 H Pulse Rate [ Anterior Bilateral Throughout] Pulse Rate [ From Monitor] Respiratory 15 16 16 Rate Respiratory Rate [Anterior Bilateral Throughout] Blood Pressure 112/36 120/51 112/55 O2 Sat by Pulse 100 99 99 Oximetry O2 Sat by Pulse Oximetry [ Assessment] 11/14/18 11/14/18 11/14/18 09:30 09:47 10:00 Temperature Pulse Rate 85 112 H 107 H Pulse Rate [ Anterior Bilateral Throughout] Pulse Rate [ From Monitor] Respiratory 23 25 H 15 Rate Respiratory Rate [Anterior Bilateral Throughout] Blood Pressure 124/37 104/39 104/39 O2 Sat by Pulse 100 98 98 Oximetry O2 Sat by Pulse Oximetry [ Assessment] Constitutional: alert, appears uncomfortable Eyes: non-icteric ENT: other (trach in position) Neck: supple, no JVD Effort: mildly labored Ascultation: Bilateral: clear, diminished breath sounds Percussion: Bilateral: not dull Cardiovascular: regular rate and rhythm Gastrointestinal: hypoactive bowel sounds, non-tender, non-distended, other Integumentary: normal Extremities: no edema Neurologic: normal mental status, non-focal exam Psychiatric: anxious CBC and BMP: 11/14/18 07:59 11/11/18 05:50 ABG, PT/INR, D-dimer: ABG POC ABG pH 7.447 (7.35-7.45) 11/11/18 04:43 POC ABG pCO2 50.1 (35-45) H 11/11/18 04:43 POC ABG pO2 100 (80-105) 11/11/18 04:43 POC ABG HCO3 34.5 (22-26 mml/L) 11/11/18 04:43 POC ABG Total CO2 36 (23-27mmol/L) 11/11/18 04:43 POC ABG O2 Sat 98 11/11/18 04:43 Abnormal lab findings: Abnormal Labs 10/22/18 10/22/18 10/22/18 15:31 15:54 15:54 WBC 11.5 H RBC 5.35 H Hgb 17.4 H Hct 50.3 H MCV MCH 33 H MCHC 35 H Plt Count Lymph % (Auto) 12.6 L [place] % (Auto) 14.8 H Lymph # [place] # 1.7 H Seg Neutrophils % 72.5 H Seg Neuts % (Manual) Lymphocytes % (Manual) Seg Neutrophils # 8.3 H Seg Neutrophils # Man Lymphocytes # (Manual) POC ABG pH POC ABG pCO2 POC ABG pO2 Sodium 134 L Potassium Chloride 88.1 L Carbon Dioxide BUN 51 H Creatinine 2.1 H Glucose 166 H POC Glucose Calcium Phosphorus Magnesium Iron TIBC Ferritin Alkaline Phosphatase NT-Pro-B Natriuret Pep Total Protein Albumin 3.4 L Lipase 10 L Free T4 10/23/18 10/23/18 10/23/18 04:32 04:32 10:53 WBC RBC Hgb Hct MCV MCH MCHC Plt Count Lymph % (Auto) 10.2 L [place] % (Auto) 14.7 H Lymph # 0.7 L [place] # 1.0 H Seg Neutrophils % 74.9 H Seg Neuts % (Manual) Lymphocytes % (Manual) Seg Neutrophils # Seg Neutrophils # Man Lymphocytes # (Manual) POC ABG pH POC ABG pCO2 POC ABG pO2 Sodium Potassium 3.1 L D 3.5 L Chloride Carbon Dioxide BUN 41 H 37 H Creatinine Glucose 111 H 110 H POC Glucose Calcium 8.1 L 8.1 L Phosphorus Magnesium Iron TIBC Ferritin Alkaline Phosphatase NT-Pro-B Natriuret Pep Total Protein Albumin Lipase Free T4 10/24/18 10/24/18 10/25/18 05:34 05:34 04:51 WBC RBC Hgb Hct MCV MCH MCHC Plt Count Lymph % (Auto) [place] % (Auto) Lymph # [place] # Seg Neutrophils % Seg Neuts % (Manual) Lymphocytes % (Manual) Seg Neutrophils # Seg Neutrophils # Man Lymphocytes # (Manual) POC ABG pH POC ABG pCO2 POC ABG pO2 Sodium Potassium 3.2 L 3.1 L Chloride 109.8 H 114.2 H Carbon Dioxide 17 L D BUN 21 H Creatinine Glucose 134 H 171 H POC Glucose Calcium 7.7 L 7.0 L Phosphorus 0.80 L* Magnesium Iron TIBC Ferritin Alkaline Phosphatase NT-Pro-B Natriuret Pep Total Protein Albumin Lipase Free T4 10/25/18 10/26/18 10/26/18 06:07 02:58 04:57 WBC RBC Hgb Hct MCV 99 H MCH 33 H MCHC Plt Count Lymph % (Auto) [place] % (Auto) Lymph # [place] # Seg Neutrophils % Seg Neuts % (Manual) Lymphocytes % (Manual) Seg Neutrophils # Seg Neutrophils # Man Lymphocytes # (Manual) POC ABG pH 7.090 L 7.320 L POC ABG pCO2 65.0 H 32.8 L POC ABG pO2 76 L Sodium Potassium Chloride Carbon Dioxide BUN Creatinine Glucose POC Glucose Calcium Phosphorus Magnesium Iron TIBC Ferritin Alkaline Phosphatase NT-Pro-B Natriuret Pep Total Protein Albumin Lipase Free T4 10/26/18 10/26/18 10/26/18 06:03 06:03 11:52 WBC 23.8 H RBC Hgb 15.4 H Hct 46.1 H D MCV MCH MCHC Plt Count Lymph % (Auto) [place] % (Auto) Lymph # [place] # Seg Neutrophils % Seg Neuts % (Manual) Lymphocytes % (Manual) Seg Neutrophils # Seg Neutrophils # Man Lymphocytes # (Manual) POC ABG pH POC ABG pCO2 POC ABG pO2 Sodium Potassium Chloride 109.5 H Carbon Dioxide 18 L BUN Creatinine Glucose 128 H POC Glucose 117 H Calcium 8.3 L D Phosphorus Magnesium Iron TIBC Ferritin Alkaline Phosphatase NT-Pro-B Natriuret Pep Total Protein Albumin Lipase Free T4 10/26/18 10/26/18 10/26/18 13:54 17:10 17:32 WBC RBC Hgb Hct MCV MCH MCHC Plt Count Lymph % (Auto) [place] % (Auto) Lymph # [place] # Seg Neutrophils % Seg Neuts % (Manual) Lymphocytes % (Manual) Seg Neutrophils # Seg Neutrophils # Man Lymphocytes # (Manual) POC ABG pH 7.215 L POC ABG pCO2 31.8 L POC ABG pO2 69 L 204 H Sodium Potassium 3.0 L D Chloride 114.5 H Carbon Dioxide 21 L BUN Creatinine Glucose POC Glucose Calcium 7.6 L Phosphorus Magnesium 1.40 L Iron TIBC Ferritin Alkaline Phosphatase NT-Pro-B Natriuret Pep Total Protein Albumin Lipase Free T4 10/26/18 10/27/18 10/27/18 23:13 00:40 01:09 WBC RBC Hgb Hct MCV MCH MCHC Plt Count Lymph % (Auto) [place] % (Auto) Lymph # [place] # Seg Neutrophils % Seg Neuts % (Manual) Lymphocytes % (Manual) Seg Neutrophils # Seg Neutrophils # Man Lymphocytes # (Manual) POC ABG pH POC ABG pCO2 POC ABG pO2 Sodium Potassium 3.4 L Chloride 115.0 H Carbon Dioxide 14 L D BUN Creatinine Glucose 228 H POC Glucose 48 L 264 H Calcium 7.1 L Phosphorus Magnesium Iron TIBC Ferritin Alkaline Phosphatase NT-Pro-B Natriuret Pep Total Protein Albumin Lipase Free T4 10/27/18 10/27/18 10/27/18 05:00 05:00 05:16 WBC 22.5 H RBC Hgb 14.7 H Hct 44.4 H MCV MCH MCHC Plt Count Lymph % (Auto) [place] % (Auto) Lymph # [place] # Seg Neutrophils % Seg Neuts % (Manual) Lymphocytes % (Manual) Seg Neutrophils # Seg Neutrophils # Man Lymphocytes # (Manual) POC ABG pH 7.304 L POC ABG pCO2 POC ABG pO2 116 H Sodium Potassium Chloride 118.4 H Carbon Dioxide 16 L BUN Creatinine Glucose 123 H POC Glucose Calcium 7.7 L Phosphorus Magnesium 2.60 H Iron TIBC Ferritin Alkaline Phosphatase NT-Pro-B Natriuret Pep Total Protein Albumin Lipase Free T4 10/28/18 10/28/18 10/28/18 04:25 04:25 15:37 WBC 23.5 H RBC Hgb Hct MCV MCH MCHC Plt Count Lymph % (Auto) [place] % (Auto) Lymph # [place] # Seg Neutrophils % Seg Neuts % (Manual) Lymphocytes % (Manual) Seg Neutrophils # Seg Neutrophils # Man Lymphocytes # (Manual) POC ABG pH POC ABG pCO2 POC ABG pO2 Sodium 147 H Potassium Chloride 116.9 H Carbon Dioxide 16 L BUN 23 H Creatinine Glucose POC Glucose 114 H Calcium 8.0 L Phosphorus Magnesium Iron TIBC Ferritin Alkaline Phosphatase NT-Pro-B Natriuret Pep Total Protein Albumin Lipase Free T4 10/28/18 10/28/18 10/28/18 20:33 22:07 23:31 WBC RBC Hgb Hct MCV MCH MCHC Plt Count Lymph % (Auto) [place] % (Auto) Lymph # [place] # Seg Neutrophils % Seg Neuts % (Manual) Lymphocytes % (Manual) Seg Neutrophils # Seg Neutrophils # Man Lymphocytes # (Manual) POC ABG pH 7.202 L 7.235 L POC ABG pCO2 POC ABG pO2 71 L Sodium Potassium Chloride Carbon Dioxide BUN Creatinine Glucose POC Glucose 207 H Calcium Phosphorus Magnesium Iron TIBC Ferritin Alkaline Phosphatase NT-Pro-B Natriuret Pep Total Protein Albumin Lipase Free T4 10/29/18 10/29/18 10/29/18 04:30 04:30 05:26 WBC 21.1 H RBC Hgb Hct MCV MCH MCHC Plt Count Lymph % (Auto) [place] % (Auto) Lymph # [place] # Seg Neutrophils % Seg Neuts % (Manual) 97.0 H Lymphocytes % (Manual) 3.0 L Seg Neutrophils # Seg Neutrophils # Man 20.5 H Lymphocytes # (Manual) 0.6 L POC ABG pH 7.305 L POC ABG pCO2 30.5 L POC ABG pO2 75 L Sodium 147 H Potassium 3.5 L Chloride 120.0 H Carbon Dioxide 17 L BUN 30 H Creatinine Glucose 246 H POC Glucose Calcium 7.9 L Phosphorus Magnesium Iron TIBC Ferritin Alkaline Phosphatase NT-Pro-B Natriuret Pep Total Protein Albumin Lipase Free T4 10/29/18 10/29/18 10/29/18 05:36 11:39 18:00 WBC RBC Hgb Hct MCV MCH MCHC Plt Count Lymph % (Auto) [place] % (Auto) Lymph # [place] # Seg Neutrophils % Seg Neuts % (Manual) Lymphocytes % (Manual) Seg Neutrophils # Seg Neutrophils # Man Lymphocytes # (Manual) POC ABG pH POC ABG pCO2 POC ABG pO2 Sodium Potassium Chloride Carbon Dioxide BUN Creatinine Glucose POC Glucose 204 H 224 H 221 H Calcium Phosphorus Magnesium Iron TIBC Ferritin Alkaline Phosphatase NT-Pro-B Natriuret Pep Total Protein Albumin Lipase Free T4 10/29/18 10/30/18 10/30/18 23:17 05:00 05:00 WBC 21.4 H RBC Hgb Hct MCV MCH MCHC Plt Count 134 L Lymph % (Auto) [place] % (Auto) Lymph # [place] # Seg Neutrophils % Seg Neuts % (Manual) 97.0 H Lymphocytes % (Manual) 3.0 L Seg Neutrophils # Seg Neutrophils # Man 20.8 H Lymphocytes # (Manual) 0.6 L POC ABG pH POC ABG pCO2 POC ABG pO2 Sodium 148 H Potassium 3.1 L Chloride 120.3 H Carbon Dioxide 18 L BUN 31 H Creatinine Glucose 205 H POC Glucose 181 H Calcium 8.0 L Phosphorus Magnesium Iron TIBC Ferritin Alkaline Phosphatase NT-Pro-B Natriuret Pep Total Protein Albumin Lipase Free T4 10/30/18 10/30/18 10/30/18 05:14 05:25 05:26 WBC RBC Hgb Hct MCV MCH MCHC Plt Count Lymph % (Auto) [place] % (Auto) Lymph # [place] # Seg Neutrophils % Seg Neuts % (Manual) Lymphocytes % (Manual) Seg Neutrophils # Seg Neutrophils # Man Lymphocytes # (Manual) POC ABG pH 7.296 L 7.245 L POC ABG pCO2 31.1 L POC ABG pO2 54 L 59 L Sodium Potassium Chloride Carbon Dioxide BUN Creatinine Glucose POC Glucose 199 H Calcium Phosphorus Magnesium Iron TIBC Ferritin Alkaline Phosphatase NT-Pro-B Natriuret Pep Total Protein Albumin Lipase Free T4 10/30/18 10/30/18 10/31/18 13:23 18:25 00:22 WBC RBC Hgb Hct MCV MCH MCHC Plt Count Lymph % (Auto) [place] % (Auto) Lymph # [place] # Seg Neutrophils % Seg Neuts % (Manual) Lymphocytes % (Manual) Seg Neutrophils # Seg Neutrophils # Man Lymphocytes # (Manual) POC ABG pH POC ABG pCO2 POC ABG pO2 Sodium Potassium Chloride Carbon Dioxide BUN Creatinine Glucose POC Glucose 146 H 158 H 162 H Calcium Phosphorus Magnesium Iron TIBC Ferritin Alkaline Phosphatase NT-Pro-B Natriuret Pep Total Protein Albumin Lipase Free T4 10/31/18 10/31/18 10/31/18 04:39 05:14 07:05 WBC RBC Hgb Hct MCV MCH MCHC Plt Count Lymph % (Auto) [place] % (Auto) Lymph # [place] # Seg Neutrophils % Seg Neuts % (Manual) Lymphocytes % (Manual) Seg Neutrophils # Seg Neutrophils # Man Lymphocytes # (Manual) POC ABG pH 7.238 L POC ABG pCO2 POC ABG pO2 Sodium Potassium Chloride 115.8 H Carbon Dioxide 18 L BUN 39 H Creatinine 1.3 H Glucose 167 H POC Glucose 145 H Calcium 7.5 L Phosphorus 1.80 L Magnesium Iron TIBC Ferritin Alkaline Phosphatase NT-Pro-B Natriuret Pep Total Protein Albumin Lipase Free T4 10/31/18 10/31/18 10/31/18 10:43 12:03 17:00 WBC RBC Hgb Hct MCV MCH MCHC Plt Count Lymph % (Auto) [place] % (Auto) Lymph # [place] # Seg Neutrophils % Seg Neuts % (Manual) Lymphocytes % (Manual) Seg Neutrophils # Seg Neutrophils # Man Lymphocytes # (Manual) POC ABG pH 7.304 L POC ABG pCO2 33.3 L POC ABG pO2 Sodium Potassium Chloride Carbon Dioxide BUN Creatinine Glucose POC Glucose 159 H Calcium Phosphorus Magnesium Iron TIBC Ferritin Alkaline Phosphatase NT-Pro-B Natriuret Pep Total Protein Albumin Lipase Free T4 0.49 L 10/31/18 11/01/18 11/01/18 17:00 00:44 05:27 WBC RBC Hgb Hct MCV MCH MCHC Plt Count Lymph % (Auto) [place] % (Auto) Lymph # [place] # Seg Neutrophils % Seg Neuts % (Manual) Lymphocytes % (Manual) Seg Neutrophils # Seg Neutrophils # Man Lymphocytes # (Manual) POC ABG pH 7.248 L POC ABG pCO2 34.8 L POC ABG pO2 135 H Sodium Potassium Chloride Carbon Dioxide BUN Creatinine Glucose POC Glucose 127 H 118 H Calcium Phosphorus Magnesium Iron TIBC Ferritin Alkaline Phosphatase NT-Pro-B Natriuret Pep Total Protein Albumin Lipase Free T4 11/01/18 11/01/18 11/01/18 06:40 06:40 06:53 WBC 18.9 H RBC 3.63 L Hgb Hct MCV MCH MCHC Plt Count 64 L Lymph % (Auto) [place] % (Auto) Lymph # [place] # Seg Neutrophils % Seg Neuts % (Manual) 98.0 H Lymphocytes % (Manual) 1.0 L Seg Neutrophils # Seg Neutrophils # Man 18.5 H Lymphocytes # (Manual) 0.2 L POC ABG pH POC ABG pCO2 POC ABG pO2 Sodium Potassium 3.5 L Chloride 114.2 H Carbon Dioxide 17 L BUN 49 H Creatinine Glucose 107 H POC Glucose 127 H Calcium 7.3 L Phosphorus Magnesium 1.60 L Iron TIBC Ferritin Alkaline Phosphatase NT-Pro-B Natriuret Pep Total Protein Albumin Lipase Free T4 11/01/18 11/01/18 11/01/18 11:49 13:13 17:24 WBC RBC Hgb Hct MCV MCH MCHC Plt Count Lymph % (Auto) [place] % (Auto) Lymph # [place] # Seg Neutrophils % Seg Neuts % (Manual) Lymphocytes % (Manual) Seg Neutrophils # Seg Neutrophils # Man Lymphocytes # (Manual) POC ABG pH POC ABG pCO2 POC ABG pO2 182 H Sodium Potassium Chloride Carbon Dioxide BUN Creatinine Glucose POC Glucose 134 H 111 H Calcium Phosphorus Magnesium Iron TIBC Ferritin Alkaline Phosphatase NT-Pro-B Natriuret Pep Total Protein Albumin Lipase Free T4 11/01/18 11/02/18 11/02/18 23:07 04:32 05:00 WBC RBC Hgb Hct MCV MCH MCHC Plt Count Lymph % (Auto) [place] % (Auto) Lymph # [place] # Seg Neutrophils % Seg Neuts % (Manual) Lymphocytes % (Manual) Seg Neutrophils # Seg Neutrophils # Man Lymphocytes # (Manual) POC ABG pH 7.244 L POC ABG pCO2 33.2 L POC ABG pO2 123 H Sodium Potassium 3.0 L Chloride 114.1 H Carbon Dioxide 15 L BUN 47 H Creatinine Glucose 127 H POC Glucose 123 H Calcium 7.7 L Phosphorus Magnesium Iron TIBC Ferritin Alkaline Phosphatase NT-Pro-B Natriuret Pep Total Protein Albumin Lipase Free T4 11/02/18 11/02/18 11/02/18 05:00 05:29 11:27 WBC RBC Hgb Hct MCV MCH MCHC Plt Count Lymph % (Auto) [place] % (Auto) Lymph # [place] # Seg Neutrophils % Seg Neuts % (Manual) Lymphocytes % (Manual) Seg Neutrophils # Seg Neutrophils # Man Lymphocytes # (Manual) POC ABG pH POC ABG pCO2 POC ABG pO2 Sodium Potassium Chloride Carbon Dioxide BUN Creatinine Glucose POC Glucose 118 H 137 H Calcium Phosphorus Magnesium 1.60 L Iron TIBC Ferritin Alkaline Phosphatase NT-Pro-B Natriuret Pep Total Protein Albumin Lipase Free T4 11/02/18 11/02/18 11/03/18 12:53 23:35 04:14 WBC RBC Hgb Hct MCV MCH MCHC Plt Count Lymph % (Auto) [place] % (Auto) Lymph # [place] # Seg Neutrophils % Seg Neuts % (Manual) Lymphocytes % (Manual) Seg Neutrophils # Seg Neutrophils # Man Lymphocytes # (Manual) POC ABG pH POC ABG pCO2 30.3 L POC ABG pO2 134 H 129 H Sodium Potassium Chloride Carbon Dioxide BUN Creatinine Glucose POC Glucose 115 H Calcium Phosphorus Magnesium Iron TIBC Ferritin Alkaline Phosphatase NT-Pro-B Natriuret Pep Total Protein Albumin Lipase Free T4 11/03/18 11/03/18 11/03/18 05:34 11:30 11:30 WBC 16.4 H RBC 3.50 L Hgb Hct MCV MCH MCHC Plt Count 136 L D Lymph % (Auto) [place] % (Auto) Lymph # [place] # Seg Neutrophils % Seg Neuts % (Manual) 97.0 H Lymphocytes % (Manual) 2.0 L Seg Neutrophils # Seg Neutrophils # Man 15.9 H Lymphocytes # (Manual) 0.3 L POC ABG pH POC ABG pCO2 POC ABG pO2 Sodium Potassium 3.1 L Chloride 110.4 H Carbon Dioxide 17 L BUN 41 H Creatinine Glucose 129 H POC Glucose 116 H Calcium 7.7 L Phosphorus Magnesium 1.60 L Iron TIBC Ferritin Alkaline Phosphatase NT-Pro-B Natriuret Pep Total Protein 4.2 L Albumin 1.2 L Lipase Free T4 11/03/18 11/03/18 11/03/18 12:01 17:35 21:37 WBC RBC Hgb Hct MCV MCH MCHC Plt Count Lymph % (Auto) [place] % (Auto) Lymph # [place] # Seg Neutrophils % Seg Neuts % (Manual) Lymphocytes % (Manual) Seg Neutrophils # Seg Neutrophils # Man Lymphocytes # (Manual) POC ABG pH POC ABG pCO2 POC ABG pO2 Sodium Potassium Chloride Carbon Dioxide BUN Creatinine Glucose POC Glucose 132 H 132 H 126 H Calcium Phosphorus Magnesium Iron TIBC Ferritin Alkaline Phosphatase NT-Pro-B Natriuret Pep Total Protein Albumin Lipase Free T4 11/03/18 11/04/18 11/04/18 23:30 05:14 05:15 WBC RBC Hgb Hct MCV MCH MCHC Plt Count Lymph % (Auto) [place] % (Auto) Lymph # [place] # Seg Neutrophils % Seg Neuts % (Manual) Lymphocytes % (Manual) Seg Neutrophils # Seg Neutrophils # Man Lymphocytes # (Manual) POC ABG pH POC ABG pCO2 30.9 L POC ABG pO2 192 H Sodium Potassium Chloride Carbon Dioxide BUN Creatinine Glucose POC Glucose 115 H 123 H Calcium Phosphorus Magnesium Iron TIBC Ferritin Alkaline Phosphatase NT-Pro-B Natriuret Pep Total Protein Albumin Lipase Free T4 11/04/18 11/04/18 11/04/18 09:39 09:39 11:43 WBC 15.2 H RBC 3.18 L Hgb Hct 29.9 L MCV MCH MCHC Plt Count Lymph % (Auto) [place] % (Auto) Lymph # [place] # Seg Neutrophils % Seg Neuts % (Manual) 98.0 H Lymphocytes % (Manual) 1.0 L Seg Neutrophils # Seg Neutrophils # Man 14.9 H Lymphocytes # (Manual) 0.2 L POC ABG pH POC ABG pCO2 POC ABG pO2 Sodium 135 L D Potassium Chloride 109.5 H Carbon Dioxide 16 L BUN 46 H Creatinine Glucose 136 H POC Glucose 138 H Calcium 8.0 L Phosphorus Magnesium Iron TIBC Ferritin Alkaline Phosphatase NT-Pro-B Natriuret Pep Total Protein Albumin Lipase Free T4 11/04/18 11/04/18 11/05/18 17:31 23:42 05:23 WBC RBC Hgb Hct MCV MCH MCHC Plt Count Lymph % (Auto) [place] % (Auto) Lymph # [place] # Seg Neutrophils % Seg Neuts % (Manual) Lymphocytes % (Manual) Seg Neutrophils # Seg Neutrophils # Man Lymphocytes # (Manual) POC ABG pH POC ABG pCO2 POC ABG pO2 Sodium Potassium Chloride Carbon Dioxide BUN Creatinine Glucose POC Glucose 139 H 138 H 148 H Calcium Phosphorus Magnesium Iron TIBC Ferritin Alkaline Phosphatase NT-Pro-B Natriuret Pep Total Protein Albumin Lipase Free T4 11/05/18 11/05/18 11/05/18 05:30 05:30 11:46 WBC 14.2 H RBC 3.12 L Hgb 10.0 L Hct 29.1 L MCV MCH MCHC Plt Count Lymph % (Auto) [place] % (Auto) Lymph # [place] # Seg Neutrophils % Seg Neuts % (Manual) Lymphocytes % (Manual) Seg Neutrophils # Seg Neutrophils # Man Lymphocytes # (Manual) POC ABG pH POC ABG pCO2 POC ABG pO2 Sodium Potassium Chloride Carbon Dioxide 21 L BUN 42 H Creatinine Glucose 125 H POC Glucose 157 H Calcium 7.9 L Phosphorus Magnesium Iron TIBC Ferritin Alkaline Phosphatase NT-Pro-B Natriuret Pep Total Protein Albumin Lipase Free T4 11/05/18 11/05/18 11/05/18 17:09 20:03 23:43 WBC RBC Hgb Hct MCV MCH MCHC Plt Count Lymph % (Auto) [place] % (Auto) Lymph # [place] # Seg Neutrophils % Seg Neuts % (Manual) Lymphocytes % (Manual) Seg Neutrophils # Seg Neutrophils # Man Lymphocytes # (Manual) POC ABG pH POC ABG pCO2 POC ABG pO2 76 L Sodium Potassium Chloride Carbon Dioxide BUN Creatinine Glucose POC Glucose 142 H 204 H Calcium Phosphorus Magnesium Iron TIBC Ferritin Alkaline Phosphatase NT-Pro-B Natriuret Pep Total Protein Albumin Lipase Free T4 11/06/18 11/06/18 11/06/18 04:21 12:14 17:17 WBC RBC Hgb Hct MCV MCH MCHC Plt Count Lymph % (Auto) [place] % (Auto) Lymph # [place] # Seg Neutrophils % Seg Neuts % (Manual) Lymphocytes % (Manual) Seg Neutrophils # Seg Neutrophils # Man Lymphocytes # (Manual) POC ABG pH POC ABG pCO2 POC ABG pO2 Sodium 133 L Potassium Chloride Carbon Dioxide 18 L BUN 47 H Creatinine Glucose 187 H POC Glucose 232 H 199 H Calcium 7.8 L Phosphorus 5.30 H D Magnesium 2.50 H Iron TIBC Ferritin Alkaline Phosphatase NT-Pro-B Natriuret Pep Total Protein Albumin Lipase Free T4 11/06/18 11/06/18 11/07/18 19:46 23:30 00:00 WBC RBC Hgb Hct MCV MCH MCHC Plt Count Lymph % (Auto) [place] % (Auto) Lymph # [place] # Seg Neutrophils % Seg Neuts % (Manual) Lymphocytes % (Manual) Seg Neutrophils # Seg Neutrophils # Man Lymphocytes # (Manual) POC ABG pH 7.317 L POC ABG pCO2 50.3 H POC ABG pO2 58 L 57 L Sodium Potassium Chloride Carbon Dioxide BUN Creatinine Glucose POC Glucose 224 H Calcium Phosphorus Magnesium Iron TIBC Ferritin Alkaline Phosphatase NT-Pro-B Natriuret Pep Total Protein Albumin Lipase Free T4 11/07/18 11/07/18 11/07/18 04:55 04:55 04:55 WBC 25.2 H RBC 3.64 L Hgb Hct MCV MCH MCHC Plt Count Lymph % (Auto) [place] % (Auto) Lymph # [place] # Seg Neutrophils % Seg Neuts % (Manual) Lymphocytes % (Manual) Seg Neutrophils # Seg Neutrophils # Man Lymphocytes # (Manual) POC ABG pH POC ABG pCO2 POC ABG pO2 Sodium Potassium Chloride Carbon Dioxide BUN 54 H Creatinine Glucose 270 H POC Glucose Calcium 7.9 L Phosphorus 5.00 H Magnesium Iron TIBC Ferritin Alkaline Phosphatase NT-Pro-B Natriuret Pep 4507 H Total Protein Albumin Lipase Free T4 11/07/18 11/07/18 11/07/18 05:46 08:08 11:52 WBC RBC Hgb Hct MCV MCH MCHC Plt Count Lymph % (Auto) [place] % (Auto) Lymph # [place] # Seg Neutrophils % Seg Neuts % (Manual) Lymphocytes % (Manual) Seg Neutrophils # Seg Neutrophils # Man Lymphocytes # (Manual) POC ABG pH POC ABG pCO2 47.6 H POC ABG pO2 106 H Sodium Potassium Chloride Carbon Dioxide BUN Creatinine Glucose POC Glucose 266 H 323 H Calcium Phosphorus Magnesium Iron TIBC Ferritin Alkaline Phosphatase NT-Pro-B Natriuret Pep Total Protein Albumin Lipase Free T4 11/07/18 11/07/18 11/07/18 12:29 17:57 23:48 WBC RBC Hgb Hct MCV MCH MCHC Plt Count Lymph % (Auto) [place] % (Auto) Lymph # [place] # Seg Neutrophils % Seg Neuts % (Manual) Lymphocytes % (Manual) Seg Neutrophils # Seg Neutrophils # Man Lymphocytes # (Manual) POC ABG pH POC ABG pCO2 POC ABG pO2 Sodium Potassium Chloride Carbon Dioxide BUN Creatinine Glucose POC Glucose 325 H 286 H 231 H Calcium Phosphorus Magnesium Iron TIBC Ferritin Alkaline Phosphatase NT-Pro-B Natriuret Pep Total Protein Albumin Lipase Free T4 11/08/18 11/08/18 11/08/18 03:58 05:05 05:05 WBC 18.4 H RBC 3.20 L Hgb 10.0 L Hct 29.7 L MCV MCH MCHC Plt Count Lymph % (Auto) [place] % (Auto) Lymph # [place] # Seg Neutrophils % Seg Neuts % (Manual) Lymphocytes % (Manual) Seg Neutrophils # Seg Neutrophils # Man Lymphocytes # (Manual) POC ABG pH 7.524 H POC ABG pCO2 34.3 L POC ABG pO2 Sodium Potassium Chloride Carbon Dioxide BUN 61 H Creatinine Glucose 253 H POC Glucose Calcium 7.6 L Phosphorus Magnesium Iron TIBC Ferritin Alkaline Phosphatase NT-Pro-B Natriuret Pep Total Protein Albumin Lipase Free T4 11/08/18 11/08/18 11/08/18 05:28 11:28 18:21 WBC RBC Hgb Hct MCV MCH MCHC Plt Count Lymph % (Auto) [place] % (Auto) Lymph # [place] # Seg Neutrophils % Seg Neuts % (Manual) Lymphocytes % (Manual) Seg Neutrophils # Seg Neutrophils # Man Lymphocytes # (Manual) POC ABG pH POC ABG pCO2 POC ABG pO2 Sodium Potassium Chloride Carbon Dioxide BUN Creatinine Glucose POC Glucose 295 H 253 H 225 H Calcium Phosphorus Magnesium Iron TIBC Ferritin Alkaline Phosphatase NT-Pro-B Natriuret Pep Total Protein Albumin Lipase Free T4 11/09/18 11/09/18 11/09/18 00:57 04:06 06:06 WBC RBC Hgb Hct MCV MCH MCHC Plt Count Lymph % (Auto) [place] % (Auto) Lymph # [place] # Seg Neutrophils % Seg Neuts % (Manual) Lymphocytes % (Manual) Seg Neutrophils # Seg Neutrophils # Man Lymphocytes # (Manual) POC ABG pH 7.509 H POC ABG pCO2 POC ABG pO2 Sodium Potassium Chloride Carbon Dioxide BUN Creatinine Glucose POC Glucose 218 H 199 H Calcium Phosphorus Magnesium Iron TIBC Ferritin Alkaline Phosphatase NT-Pro-B Natriuret Pep Total Protein Albumin Lipase Free T4 11/09/18 11/09/18 11/09/18 06:51 06:51 12:07 WBC 13.5 H RBC 2.97 L Hgb 9.3 L Hct 27.6 L MCV MCH MCHC Plt Count Lymph % (Auto) [place] % (Auto) Lymph # [place] # Seg Neutrophils % Seg Neuts % (Manual) Lymphocytes % (Manual) Seg Neutrophils # Seg Neutrophils # Man Lymphocytes # (Manual) POC ABG pH POC ABG pCO2 POC ABG pO2 Sodium Potassium Chloride 96.5 L Carbon Dioxide 32 H BUN 58 H Creatinine Glucose 191 H POC Glucose 212 H Calcium 7.5 L Phosphorus Magnesium Iron TIBC Ferritin Alkaline Phosphatase NT-Pro-B Natriuret Pep Total Protein Albumin Lipase Free T4 11/09/18 11/10/18 11/10/18 18:29 00:09 04:21 WBC RBC Hgb Hct MCV MCH MCHC Plt Count Lymph % (Auto) [place] % (Auto) Lymph # [place] # Seg Neutrophils % Seg Neuts % (Manual) Lymphocytes % (Manual) Seg Neutrophils # Seg Neutrophils # Man Lymphocytes # (Manual) POC ABG pH 7.467 H POC ABG pCO2 49.9 H POC ABG pO2 76 L Sodium Potassium Chloride Carbon Dioxide BUN Creatinine Glucose POC Glucose 192 H 214 H Calcium Phosphorus Magnesium Iron TIBC Ferritin Alkaline Phosphatase NT-Pro-B Natriuret Pep Total Protein Albumin Lipase Free T4 11/10/18 11/10/18 11/10/18 04:39 04:39 06:05 WBC 14.3 H RBC 3.09 L Hgb 9.7 L Hct 28.9 L MCV MCH MCHC Plt Count Lymph % (Auto) [place] % (Auto) Lymph # [place] # Seg Neutrophils % Seg Neuts % (Manual) Lymphocytes % (Manual) Seg Neutrophils # Seg Neutrophils # Man Lymphocytes # (Manual) POC ABG pH POC ABG pCO2 POC ABG pO2 Sodium Potassium Chloride 97.5 L Carbon Dioxide 31 H BUN 53 H Creatinine Glucose 196 H POC Glucose 202 H Calcium 7.7 L Phosphorus Magnesium Iron TIBC Ferritin Alkaline Phosphatase NT-Pro-B Natriuret Pep Total Protein Albumin Lipase Free T4 11/10/18 11/10/18 11/11/18 12:32 17:16 00:06 WBC RBC Hgb Hct MCV MCH MCHC Plt Count Lymph % (Auto) [place] % (Auto) Lymph # [place] # Seg Neutrophils % Seg Neuts % (Manual) Lymphocytes % (Manual) Seg Neutrophils # Seg Neutrophils # Man Lymphocytes # (Manual) POC ABG pH POC ABG pCO2 POC ABG pO2 Sodium Potassium Chloride Carbon Dioxide BUN Creatinine Glucose POC Glucose 197 H 200 H 177 H Calcium Phosphorus Magnesium Iron TIBC Ferritin Alkaline Phosphatase NT-Pro-B Natriuret Pep Total Protein Albumin Lipase Free T4 11/11/18 11/11/18 11/11/18 04:43 05:24 05:50 WBC 14.1 H RBC 2.92 L Hgb 9.1 L Hct 27.0 L MCV MCH MCHC Plt Count Lymph % (Auto) [place] % (Auto) Lymph # [place] # Seg Neutrophils % Seg Neuts % (Manual) Lymphocytes % (Manual) Seg Neutrophils # Seg Neutrophils # Man Lymphocytes # (Manual) POC ABG pH POC ABG pCO2 50.1 H POC ABG pO2 Sodium Potassium Chloride Carbon Dioxide BUN Creatinine Glucose POC Glucose 199 H Calcium Phosphorus Magnesium Iron TIBC Ferritin Alkaline Phosphatase NT-Pro-B Natriuret Pep Total Protein Albumin Lipase Free T4 11/11/18 11/11/18 11/11/18 05:50 12:00 17:57 WBC RBC Hgb Hct MCV MCH MCHC Plt Count Lymph % (Auto) [place] % (Auto) Lymph # [place] # Seg Neutrophils % Seg Neuts % (Manual) Lymphocytes % (Manual) Seg Neutrophils # Seg Neutrophils # Man Lymphocytes # (Manual) POC ABG pH POC ABG pCO2 POC ABG pO2 Sodium Potassium 3.5 L Chloride Carbon Dioxide 34 H BUN 47 H Creatinine 0.5 L Glucose 169 H POC Glucose 168 H 194 H Calcium 8.2 L Phosphorus Magnesium Iron TIBC Ferritin Alkaline Phosphatase 142 H NT-Pro-B Natriuret Pep Total Protein 4.4 L Albumin 2.1 L Lipase Free T4 11/11/18 11/12/18 11/12/18 23:26 05:32 09:26 WBC RBC Hgb Hct MCV MCH MCHC Plt Count Lymph % (Auto) [place] % (Auto) Lymph # [place] # Seg Neutrophils % Seg Neuts % (Manual) Lymphocytes % (Manual) Seg Neutrophils # Seg Neutrophils # Man Lymphocytes # (Manual) POC ABG pH POC ABG pCO2 POC ABG pO2 Sodium Potassium Chloride Carbon Dioxide BUN Creatinine Glucose POC Glucose 181 H 186 H 158 H Calcium Phosphorus Magnesium Iron TIBC Ferritin Alkaline Phosphatase NT-Pro-B Natriuret Pep Total Protein Albumin Lipase Free T4 11/12/18 11/12/18 11/12/18 11:42 17:39 23:25 WBC RBC Hgb Hct MCV MCH MCHC Plt Count Lymph % (Auto) [place] % (Auto) Lymph # [place] # Seg Neutrophils % Seg Neuts % (Manual) Lymphocytes % (Manual) Seg Neutrophils # Seg Neutrophils # Man Lymphocytes # (Manual) POC ABG pH POC ABG pCO2 POC ABG pO2 Sodium Potassium Chloride Carbon Dioxide BUN Creatinine Glucose POC Glucose 141 H 183 H 147 H Calcium Phosphorus Magnesium Iron TIBC Ferritin Alkaline Phosphatase NT-Pro-B Natriuret Pep Total Protein Albumin Lipase Free T4 11/13/18 11/13/18 11/13/18 12:16 18:10 21:21 WBC RBC Hgb Hct MCV MCH MCHC Plt Count Lymph % (Auto) [place] % (Auto) Lymph # [place] # Seg Neutrophils % Seg Neuts % (Manual) Lymphocytes % (Manual) Seg Neutrophils # Seg Neutrophils # Man Lymphocytes # (Manual) POC ABG pH POC ABG pCO2 POC ABG pO2 Sodium Potassium Chloride Carbon Dioxide BUN Creatinine Glucose POC Glucose 114 H 127 H 185 H Calcium Phosphorus Magnesium Iron TIBC Ferritin Alkaline Phosphatase NT-Pro-B Natriuret Pep Total Protein Albumin Lipase Free T4 11/13/18 11/14/18 11/14/18 23:11 03:28 03:28 WBC RBC Hgb Hct MCV MCH MCHC Plt Count Lymph % (Auto) [place] % (Auto) Lymph # [place] # Seg Neutrophils % Seg Neuts % (Manual) Lymphocytes % (Manual) Seg Neutrophils # Seg Neutrophils # Man Lymphocytes # (Manual) POC ABG pH POC ABG pCO2 POC ABG pO2 Sodium Potassium Chloride Carbon Dioxide BUN Creatinine Glucose POC Glucose 184 H Calcium Phosphorus Magnesium Iron 31 L TIBC 173 L Ferritin 510.3 H Alkaline Phosphatase NT-Pro-B Natriuret Pep Total Protein Albumin Lipase Free T4 11/14/18 11/14/18 05:12 07:59 WBC 19.8 H RBC 2.67 L Hgb 8.4 L Hct 25.2 L MCV MCH MCHC Plt Count Lymph % (Auto) [place] % (Auto) Lymph # [place] # Seg Neutrophils % Seg Neuts % (Manual) Lymphocytes % (Manual) Seg Neutrophils # Seg Neutrophils # Man Lymphocytes # (Manual) POC ABG pH POC ABG pCO2 POC ABG pO2 Sodium Potassium Chloride Carbon Dioxide BUN Creatinine Glucose POC Glucose 178 H Calcium Phosphorus Magnesium Iron TIBC Ferritin Alkaline Phosphatase NT-Pro-B Natriuret Pep Total Protein Albumin Lipase Free T4 Chest x-ray: report reviewed, image reviewed Allied health notes reviewed: nursing
[2018-11-14 11:07] LABS: Basophils % (Manual) 0 % (0.0-1.8); Eosinophils % (Manual) 0 % (0.0-4.3); Total Cells Counted 100
[2018-11-14 11:08] LABS: Platelet Estimate Consistent w Auto; RBC Morphology Normal
--- NOTE | 2018-11-14 13:16 | Progress Note ---
Assessment and Plan Assessment and plan: Gastric perforation. Repeat CT scan on 10/30 revealed pSBO resolved, no evidence for bowel ischemia. Small contained gastric perforation at lesser curve. No gross free air or contrast extravasation. Surgery recommends conservative management Sepsis/candidemia. Etiology is due to Ayla glabrata. Patient with TPN and PICC line. PICC line removed. Repeat fungal cultures are negative. Continue I V antifungal and follow-up blood cultures. Removed current central line and inserted midline. ID started fluconazole 11/13/18 and discontinued micafungin. Thrombocytopenia. Etiology likely secondary to sepsis. Hematology following. Bilateral upper lobe/aspiration pneumonia. Sputum culture positive for Escherichia coli and stenotrophomonas. Continue antibiotics per ID. Partial small bowel obstruction. Continue NGT per surgery. Acute exacerbation COPD. Scheduled Duo Nebs and Pulmicort; albuterol when necessary Acute hypoxic respiratory failure. Patient was reintubated on 10/28/18 and currently on mechanical ventilation. Etiology secondary to COPD/pneumonia/sepsis. Extubated 11/05, re-intubated 11/07 Wean mechanical ventilation per pulmonary. Patient reportedly tolerating CPAP trials. Presumed aspiration pneumonia versus healthcare associated pneumonia. Tracheal aspirate cultures from 10/28 with Escherichia coli and stenotrophomonas. Completed antibiotics. Hypokalemia. Replete potassium as needed. Hypertension. IV hydralazine when necessary Lupus. Supportive care Fibromyalgia. supportive care History of opioid dependence ADWOA due to vasomotor nephropathy, now resolved The high probability of a clinically significant, sudden or life threatening deterioration of the [GI and respiratory] system(s) required my full and direct attention, intervention and personal management. The aggregate critical care time was [32] minutes. This time is in addition to time spent performing reported procedures but includes the following: [x] Data Review and interpretation [x] Patient assessment and monitoring of vital signs [x] Documentation [x] Medication orders and management History Interval history: Patient is 73-year-old female with history of hypertension, lupus, fibromyalgia, COPD, opioid dependence (follows Dr. Felix Muñiz at pain clinic) who [facility] with complaints of intractable nausea, vomiting, diarrhea for 3 days. On initial presentation to the ED she was found to be tachycardiac with heart rate 113 BPM, leukocytosis with WBC 11.5, elevated BUN/Cr 51/2.1. Patient has history of COPD and at baseline does not require home oxygen use. She was admitted to [facility]. GI was consulted, she was evaluated. CT Abdomen revealed partial SBO versus ileus therefore surgeon consulted. Also patient became more short of breath, placed on BIPAP with no improvement then intubated 10/26/18 for acute resp failure and transferred to ICU. Obstruction series completed on 10/27 which showed improved but small bowel and stomach dilatation. Follow-up series on 10/28 showed no significant change since previous study. NG tube was removed due to patient not tolerating/refusing. Patient was placed back on BiPAP but decompensated on the night of 10/28/18 and had to be reintubated. Patient currently on mechanical ventilation. Patient has had further complications now with findings consistent with contained gastric perforation on repeat CT scan 10/30, managed conservatively. She was extubated 11/05, re-intubated 11/07/18. This is 3rd intubation so Tracheostomy has been recommended and being planned. No PEG yet, for at least 2 weeks because of recent gastric perforation. Hospitalist Physical - Constitutional Vitals: Temp Pulse Resp BP Pulse Ox 97.9 F 102 H 16 112/43 100 11/14/18 12:00 11/14/18 12:30 11/14/18 12:30 11/14/18 12:30 11/14/18 12:30 General appearance: Present: other (intubated, opens eyes to commands) - EENT Eyes: Present: PERRL, EOM intact ENT: hearing intact, clear oral mucosa, dentition normal - Neck Neck: Present: supple, normal ROM - Respiratory Respiratory effort: normal Respiratory: bilateral: CTA - Cardiovascular Rhythm: regular Heart Sounds: Present: S1 & S2. Absent: gallop, rub - Extremities Extremities: no ischemia, No edema, Full ROM - Abdominal General gastrointestinal: soft, non-tender, non-distended, normal bowel sounds - Integumentary Integumentary: Present: clear, warm, dry - Neurologic Neurologic: CNII-XII intact, moves all extremities Results - Labs CBC & Chem 7: 11/14/18 07:59 11/11/18 05:50 Labs: Laboratory Last Values WBC 19.8 K/mm3 (4.5-11.0) H 11/14/18 07:59 RBC 2.67 M/mm3 (3.65-5.03) L 11/14/18 07:59 Hgb 8.4 gm/dl (10.1-14.3) L 11/14/18 07:59 Hct 25.2 % (30.3-42.9) L 11/14/18 07:59 MCV 94 fl (79-97) 11/14/18 07:59 MCH 32 pg (28-32) 11/14/18 07:59 MCHC 34 % (30-34) 11/14/18 07:59 RDW 15.1 % (13.2-15.2) 11/14/18 07:59 Plt Count 297 K/mm3 (140-440) 11/14/18 07:59 Lymph % (Auto) [employer] 11/14/18 07:59 [place] % (Auto) [employer] 11/14/18 07:59 Eos % (Auto) [employer] 11/14/18 07:59 Baso % (Auto) [place] 11/14/18 07:59 Lymph # [place] 11/14/18 07:59 [place] # [employer] 11/14/18 07:59 Eos # [employer] 11/14/18 07:59 Baso # [employer] 11/14/18 07:59 Add Manual Diff Complete 11/14/18 07:59 Total Counted 100 11/14/18 07:59 Seg Neutrophils % [place] 11/14/18 07:59 Seg Neuts % (Manual) 96.0 % (40.0-70.0) H 11/14/18 07:59 0 % 11/14/18 07:59 0 % (13.4-35.0) L 11/14/18 07:59 Reactive Lymphs % (Man) 0 % 11/14/18 07:59 4.0 % (0.0-7.3) 11/14/18 07:59 0 % (0.0-4.3) 11/14/18 07:59 0 % (0.0-1.8) 11/14/18 07:59 0 % 11/14/18 07:59 0 % 11/14/18 07:59 0 % 11/14/18 07:59 0 % 11/14/18 07:59 Nucleated RBC % Not Reportable 11/14/18 07:59 Seg Neutrophils # [place] [employer] 11/14/18 07:59 Seg Neutrophils # Man 19.0 K/mm3 (1.8-7.7) H 11/14/18 07:59 Band Neutrophils # 0.0 K/mm3 11/14/18 07:59 0.0 K/mm3 (1.2-5.4) L 11/14/18 07:59 Abs React Lymphs (Man) 0.0 K/mm3 11/14/18 07:59 0.8 K/mm3 (0.0-0.8) 11/14/18 07:59 0.0 K/mm3 (0.0-0.4) 11/14/18 07:59 0.0 K/mm3 (0.0-0.1) 11/14/18 07:59 0.0 K/mm3 11/14/18 07:59 0.0 K/mm3 11/14/18 07:59 0.0 K/mm3 11/14/18 07:59 Blast Cells # 0.0 K/mm3 11/14/18 07:59 WBC Morphology Not Reportable 11/14/18 07:59 Hypersegmented Neuts Not Reportable 11/14/18 07:59 Hyposegmented Neuts Not Reportable 11/14/18 07:59 Hypogranular Neuts Not Reportable 11/14/18 07:59 Not Reportable 11/14/18 07:59 Not Reportable 11/14/18 07:59 Not Reportable 11/14/18 07:59 Not Reportable 11/14/18 07:59 Not Reportable 11/14/18 07:59 Not Reportable 11/14/18 07:59 Consistent w auto 11/14/18 07:59 Not Reportable 11/14/18 07:59 Plt Clumps, EDTA Not Reportable 11/14/18 07:59 Not Reportable 11/14/18 07:59 Not Reportable 11/14/18 07:59 Not Reportable 11/14/18 07:59 Plt Morphology Comment Not Reportable 11/14/18 07:59 RBC Morphology Normal 11/14/18 07:59 Dimorphic RBCs Not Reportable 11/14/18 07:59 Not Reportable 11/14/18 07:59 Not Reportable 11/14/18 07:59 Not Reportable 11/14/18 07:59 Not Reportable 11/14/18 07:59 Not Reportable 11/14/18 07:59 Not Reportable 11/14/18 07:59 Not Reportable 11/14/18 07:59 Not Reportable 11/14/18 07:59 Not Reportable 11/14/18 07:59 Not Reportable 11/14/18 07:59 Not Reportable 11/14/18 07:59 Not Reportable 11/14/18 07:59 Not Reportable 11/14/18 07:59 Not Reportable 11/14/18 07:59 Not Reportable 11/14/18 07:59 Not Reportable 11/14/18 07:59 Not Reportable 11/14/18 07:59 Not Reportable 11/14/18 07:59 Not Reportable 11/14/18 07:59 Acanthocytes (Spur) Not Reportable 11/14/18 07:59 Rouleaux Not Reportable 11/14/18 07:59 Not Reportable 11/14/18 07:59 Not Reportable 11/14/18 07:59 Not Reportable 11/14/18 07:59 Not Reportable 11/14/18 07:59 Hem Pathologist Commnt No 11/14/18 07:59 Heparin Anti-Xa, Unfract Negative (Negative) 10/30/18 13:58 POC ABG pH 7.470 (7.35-7.45) H 11/14/18 10:05 POC ABG pCO2 42.8 (35-45) 11/14/18 10:05 POC ABG pO2 83 (80-105) 11/14/18 10:05 POC ABG HCO3 31.2 (22-26 mml/L) 11/14/18 10:05 POC ABG Total CO2 32 (23-27mmol/L) 11/14/18 10:05 POC ABG O2 Sat 97 11/14/18 10:05 POC ABG Base Excess 7 ((-2) - (+3)mmol/L) 11/14/18 10:05 30 % 11/14/18 10:05 Sodium 142 mmol/L (137-145) 11/11/18 05:50 Potassium 3.5 mmol/L (3.6-5.0) L 11/11/18 05:50 Chloride 99.0 mmol/L (98-107) 11/11/18 05:50 Carbon Dioxide 34 mmol/L (22-30) H 11/11/18 05:50 13 mmol/L 11/11/18 05:50 BUN 47 mg/dL (7-17) H 11/11/18 05:50 0.5 mg/dL (0.7-1.2) L 11/11/18 05:50 Estimated GFR > 60 ml/min 11/11/18 05:50 94 % 11/11/18 05:50 Glucose 169 mg/dL (65-100) H 11/11/18 05:50 POC Glucose 168 (70-105) H 11/14/18 11:40 Lactic Acid 1.60 mmol/L (0.7-2.0) 10/26/18 15:03 Calcium 8.2 mg/dL (8.4-10.2) L 11/11/18 05:50 Phosphorus 2.80 mg/dL (2.5-4.5) 11/11/18 05:50 Magnesium 1.80 mg/dL (1.7-2.3) 11/11/18 05:50 Iron 31 ug/dL (37-170) L 11/14/18 03:28 TIBC 173 mcg/dL (250-450) L 11/14/18 03:28 510.3 ng/mL (13.0-400.0) H 11/14/18 03:28 0.30 mg/dL (0.1-1.2) 11/11/18 05:50 AST 26 units/L (5-40) 11/11/18 05:50 ALT 28 units/L (7-56) 11/11/18 05:50 142 units/L (35-129) H 11/11/18 05:50 NT-Pro-B Natriuret Pep 4507 pg/mL (0-900) H 11/07/18 04:55 4.4 g/dL (6.3-8.2) L 11/11/18 05:50 2.1 g/dL (3.9-5) L 11/11/18 05:50 0.9 % 11/11/18 05:50 Triglycerides 132 mg/dL (2-149) 11/01/18 06:40 10 units/L (13-60) L 10/22/18 15:54 See scanned result 10/30/18 13:58 TSH 3.150 mlU/mL (0.270-4.200) 10/31/18 17:00 Free T4 0.49 ng/dL (0.76-1.46) L 10/31/18 17:00 Dulce (Yellow) 10/22/18 19:10 Clear (Clear) 10/22/18 19:10 5.0 (5.0-7.0) 10/22/18 19:10 Ur Specific Energy 1.018 (1.003-1.030) 10/22/18 19:10 30 mg/dl mg/dL (Negative) 10/22/18 19:10 Neg mg/dL (Negative) 10/22/18 19:10 Tr mg/dL (Negative) 10/22/18 19:10 Neg (Negative) 10/22/18 19:10 Neg (Negative) 10/22/18 19:10 Neg (Negative) 10/22/18 19:10 < 2.0 mg/dL (<2.0) 10/22/18 19:10 Ur Leukocyte Esterase Neg (Negative) 10/22/18 19:10 1.0 /HPF (0.0-6.0) 10/22/18 19:10 3.0 /HPF (0.0-6.0) 10/22/18 19:10 Heparin-induced Plt Ab Negative (Negative) 10/30/18 13:58 UF Heparin High Dose 0 % Release 10/30/18 13:58 KIMO UFH Low Dose 0.1 0 % Release 10/30/18 13:58 KIMO UFH Low Dose 0.5 0 % Release 10/30/18 13:58 Active Medications - Current Medications Current Medications: Generic Name Dose Route Start Last Admin Trade Name Freq PRN Reason Stop Dose Admin Acetaminophen 650 mg 10/22/18 20:10 11/14/18 00:03 Tylenol PO 650 mg Q4H PRN Administration Pain MILD(1-3)/Fever >100.5/PORTER Albuterol 2.5 mg 10/22/18 20:14 11/05/18 16:35 Proventil IH 2.5 mg Q4HRT PRN Administration Shortness Of Breath Lipase/Protease/Amylase 1 each 11/05/18 10:13 Pancreaze 10,500 Unit FEEDTUBE PRN PRN For Clogged Feeding Tube Arformoterol Tartrate 15 mcg 11/05/18 20:00 11/14/18 07:23 Brovana Nebu IH 15 mcg Q12HRT RICK Administration Budesonide 0.5 mg 10/23/18 08:00 11/14/18 07:24 Pulmicort IH 0.5 mg Q12HRT RICK Administration Dextrose 50 ml 10/26/18 23:40 10/27/18 00:20 D50w (25gm) Syringe IV 50 ml PRN PRN Administration Hypoglycemia Enoxaparin Sodium 40 mg 11/14/18 22:00 Lovenox SUB-Q QDAY@2200 RICK Furosemide 20 mg 11/13/18 18:00 11/14/18 05:09 Lasix IV 20 mg 0600,1800 RICK Administration Gabapentin 600 mg 11/12/18 10:00 11/14/18 05:09 Neurontin PO 600 mg Q8HR RICK Administration Hydralazine HCl 10 mg 10/22/18 21:41 11/07/18 00:04 Apresoline IV 10 mg Q4HR PRN Administration Blood Pressure Hydromorphone HCl 1 mg 11/12/18 09:55 11/14/18 05:09 Dilaudid IV 1 mg Q4H PRN Administration Pain , Severe (7-10) Hydrophilic Ointment 1 applic 11/07/18 09:14 Vaseline Lip Therapy TP Q2HR PRN Dry Lips Fluconazole 200 mls @ 100 mls/hr 11/14/18 10:00 11/14/18 09:35 Diflucan IV 100 mls/hr Q24HR RICK Administration Protocol Insulin Human Isoph/Insulin Regular 12 unit 11/10/18 22:00 11/14/18 09:35 Humulin 70/30 SUB-Q 12 unit BID RICK Administration Insulin Human Lispro 0 unit 10/29/18 12:00 11/14/18 05:29 Humalog SUB-Q 2 unit Q6HR RICK Administration Protocol Lorazepam 1 mg 11/06/18 11:00 11/14/18 07:55 Ativan IV 1 mg Q6H PRN Administration Anxiety Methylprednisolone Sodium Succinate 40 mg 11/13/18 14:00 11/14/18 05:09 Solu-Medrol IV 40 mg Q8H RICK Administration Metoprolol Tartrate 5 mg 11/13/18 13:00 11/14/18 06:52 Lopressor IV 5 mg Q6H RICK Administration Multi-Ingred Cream/Lotion/Oil/Oint 1 applic 11/07/18 09:14 Artificial Tears Ophth Oint OU Q4HR PRN Dry Eye(s) Ondansetron HCl 4 mg 10/24/18 10:05 10/25/18 17:26 Zofran IV 4 mg Q6H PRN Administration Nausea And Vomiting Oxycodone/Acetaminophen 1 tab 11/05/18 11:16 11/14/18 09:35 Percocet 5/325 PO 1 tab Q6H PRN Administration Pain, Moderate (4-6) Pantoprazole Sodium 40 mg 11/05/18 10:00 11/14/18 09:35 Protonix IV 40 mg DAILY RICK Administration Phenol 1 spray 10/28/18 10:16 Chloraseptic MM PRN PRN Sore Throat Promethazine HCl 25 mg 10/22/18 20:10 10/22/18 21:21 Phenergan HI 25 mg Q6H PRN Administration Nausea And Vomiting Quetiapine Fumarate 300 mg 11/12/18 10:00 11/14/18 09:35 Seroquel PO 300 mg DAILY RICK Administration Simple Syrup 15 ml 11/05/18 10:13 Simple Syrup FEEDTUBE PRN PRN Hypoglycemia Simple Syrup 30 ml 11/05/18 10:13 Simple Syrup FEEDTUBE PRN PRN Hypoglycemia Sodium Bicarbonate 325 mg 11/05/18 10:13 Sodium Bicarbonate FEEDTUBE PRN PRN For Clogged Feeding Tube Sodium Chloride 10 ml 10/22/18 22:00 11/14/18 09:36 Sodium Chloride Flush Syringe 10 Ml IV 10 ml BID RICK Administration Sodium Chloride 10 ml 10/22/18 20:10 11/09/18 14:29 Sodium Chloride Flush Syringe 10 Ml IV 10 ml PRN PRN Administration LINE FLUSH Nutrition/Malnutrition Assess - Dietary Evaluation Nutrition/Malnutrition Findings: Nutrition Notes Start: 10/23/18 17:03 Freq: Status: Active Protocol: Document 11/12/18 15:31 SANTIAGO (Rec: 11/12/18 15:32 SANTIAGO [id number] [id number]) Nutrition Notes Initial or Follow up Brief Note Current Diet TF - Vital AF 1.2 at 35ml/hr Subjective/Other Information Per RN, pt with copious loose stools. Pt will be NPO after midnight for trach placement in am. Nutrition Intervention Follow-Up By: 11/14/18 Additional Comments F/U: resume TF, diarrhea, rectal tube placement
--- NOTE | 2018-11-14 13:22 | Progress Note ---
Assessment and Plan - Patient Problems (1) Partial small bowel obstruction Current Visit: Yes Status: Acute Plan to address problem: Pt stable. s/p perc trach. Appears to be doing well. Will sign off. Please call with questions. time=10min Subjective Date of service: 11/14/18 Patient Reports: Positive: no new complaints, other (no events o/n) Objective Vital Signs - 12hr 11/14/18 11/14/18 11/14/18 01:30 01:45 02:00 Temperature Pulse Rate 92 H 90 116 H Pulse Rate [ Anterior Bilateral Throughout] Pulse Rate [ From Monitor] Respiratory 17 17 Rate Respiratory Rate [Anterior Bilateral Throughout] Blood Pressure 106/41 98/43 98/43 O2 Sat by Pulse 98 98 Oximetry O2 Sat by Pulse Oximetry [ Assessment] 11/14/18 11/14/18 11/14/18 02:30 03:01 03:25 Temperature Pulse Rate 119 H 101 H 90 Pulse Rate [ Anterior Bilateral Throughout] Pulse Rate [ From Monitor] Respiratory 17 19 Rate Respiratory Rate [Anterior Bilateral Throughout] Blood Pressure 110/53 114/59 114/59 O2 Sat by Pulse 97 98 100 Oximetry O2 Sat by Pulse Oximetry [ Assessment] 11/14/18 11/14/18 11/14/18 03:30 04:00 04:30 Temperature 98.7 F Pulse Rate 95 H 87 85 Pulse Rate [ Anterior Bilateral Throughout] Pulse Rate [ 108 H From Monitor] Respiratory 17 18 16 Rate Respiratory Rate [Anterior Bilateral Throughout] Blood Pressure 124/51 120/46 114/43 O2 Sat by Pulse 100 98 99 Oximetry O2 Sat by Pulse Oximetry [ Assessment] 11/14/18 11/14/18 11/14/18 05:00 05:31 06:00 Temperature Pulse Rate 124 H 96 H 90 Pulse Rate [ Anterior Bilateral Throughout] Pulse Rate [ From Monitor] Respiratory 21 20 18 Rate Respiratory Rate [Anterior Bilateral Throughout] Blood Pressure 124/59 120/41 122/53 O2 Sat by Pulse 100 98 100 Oximetry O2 Sat by Pulse Oximetry [ Assessment] 11/14/18 11/14/18 11/14/18 06:11 06:21 06:30 Temperature 97.5 F L 97.5 F L Pulse Rate 96 H Pulse Rate [ Anterior Bilateral Throughout] Pulse Rate [ From Monitor] Respiratory 18 Rate Respiratory Rate [Anterior Bilateral Throughout] Blood Pressure 126/52 O2 Sat by Pulse 100 Oximetry O2 Sat by Pulse Oximetry [ Assessment] 11/14/18 11/14/18 11/14/18 06:52 07:00 07:24 Temperature Pulse Rate 89 78 Pulse Rate [ Anterior Bilateral Throughout] Pulse Rate [ From Monitor] Respiratory 18 Rate Respiratory Rate [Anterior Bilateral Throughout] Blood Pressure 126/52 119/44 O2 Sat by Pulse 99 Oximetry O2 Sat by Pulse 100 Oximetry [ Assessment] 11/14/18 11/14/18 11/14/18 07:25 07:31 07:36 Temperature Pulse Rate 87 83 Pulse Rate [ 82 Anterior Bilateral Throughout] Pulse Rate [ From Monitor] Respiratory 19 Rate Respiratory 17 Rate [Anterior Bilateral Throughout] Blood Pressure 119/44 123/46 O2 Sat by Pulse 100 100 100 Oximetry O2 Sat by Pulse Oximetry [ Assessment] 11/14/18 11/14/18 11/14/18 07:40 08:00 08:01 Temperature 97.4 F L Pulse Rate 85 Pulse Rate [ 96 H Anterior Bilateral Throughout] Pulse Rate [ 84 From Monitor] Respiratory 15 Rate Respiratory 12 Rate [Anterior Bilateral Throughout] Blood Pressure 112/36 O2 Sat by Pulse 99 100 Oximetry O2 Sat by Pulse Oximetry [ Assessment] 11/14/18 11/14/18 11/14/18 08:30 09:00 09:30 Temperature Pulse Rate 91 H 94 H 85 Pulse Rate [ Anterior Bilateral Throughout] Pulse Rate [ From Monitor] Respiratory 16 16 23 Rate Respiratory Rate [Anterior Bilateral Throughout] Blood Pressure 120/51 112/55 124/37 O2 Sat by Pulse 99 99 100 Oximetry O2 Sat by Pulse Oximetry [ Assessment] 11/14/18 11/14/18 11/14/18 09:47 10:00 10:30 Temperature Pulse Rate 112 H 107 H 118 H Pulse Rate [ Anterior Bilateral Throughout] Pulse Rate [ From Monitor] Respiratory 25 H 15 24 Rate Respiratory Rate [Anterior Bilateral Throughout] Blood Pressure 104/39 104/39 113/37 O2 Sat by Pulse 98 98 98 Oximetry O2 Sat by Pulse Oximetry [ Assessment] 11/14/18 11/14/18 11/14/18 11:00 11:30 12:00 Temperature 97.9 F Pulse Rate 108 H 102 H 105 H Pulse Rate [ Anterior Bilateral Throughout] Pulse Rate [ 104 H From Monitor] Respiratory 15 13 14 Rate Respiratory Rate [Anterior Bilateral Throughout] Blood Pressure 95/39 109/40 112/41 O2 Sat by Pulse 99 98 99 Oximetry O2 Sat by Pulse Oximetry [ Assessment] 11/14/18 12:30 Temperature Pulse Rate 102 H Pulse Rate [ Anterior Bilateral Throughout] Pulse Rate [ From Monitor] Respiratory 16 Rate Respiratory Rate [Anterior Bilateral Throughout] Blood Pressure 112/43 O2 Sat by Pulse 100 Oximetry O2 Sat by Pulse Oximetry [ Assessment] - General physical appearance no distress, no pain - ENT other (trach in place. no drainage. no airleak. no neck swelling) - Respiratory normal expansion, normal respiratory effort - Labs 11/14/18 07:59 11/11/18 05:50
--- NOTE | 2018-11-14 13:30 | Progress Note ---
Assessment and Plan Pt s/p trach today. Currently stable cardiac status. Will follow peripherally over the weekend. The patient has been seen in conjunction with Dr. Stoner who agrees with the assessment and plan of care. - Patient Problems (1) Atrial tachycardia, paroxysmal Current Visit: Yes Status: Acute (2) Acute heart failure with preserved ejection fraction Current Visit: Yes Status: Acute (3) Acute respiratory failure Current Visit: Yes Status: Acute Qualifiers: Respiratory failure complication: hypoxia Qualified Code(s): J96.01 - Acute respiratory failure with hypoxia (4) Perforated gastric ulcer Current Visit: Yes Status: Acute (5) Intractable nausea and vomiting Current Visit: Yes Status: Acute (6) Partial small bowel obstruction Current Visit: Yes Status: Acute (7) COPD (chronic obstructive pulmonary disease) Current Visit: Yes Status: Chronic (8) History of hypertension Current Visit: Yes Status: Chronic (9) ADWOA (acute kidney injury) Current Visit: Yes Status: Acute (10) Hypokalemia Current Visit: Yes Status: Acute Subjective Date of service: 11/14/18 Principal diagnosis: respiratory failure Interval history: pt s/p trach yesterday, alert, in ST HR 100s on tele. Objective Last Vital Signs Temp 97.9 F 11/14/18 12:00 Pulse 102 H 11/14/18 12:30 Resp 16 11/14/18 12:30 BP 112/43 11/14/18 12:30 Pulse Ox 100 11/14/18 12:30 - Physical Examination General: Other (trached) HEENT: Positive: EOMI, Normocephaly, Mucus Membranes Moist Neck: Positive: neck supple, trachea midline Cardiac: Positive: Regular Rhythm, S1/S2 Lungs: Positive: Decreased Breath Sounds Neuro: Positive: Other (trached) Abdomen: Positive: Soft. Negative: Tender Skin: Positive: Clear. Negative: Rash Musculoskeletal: Decreased Range of Motion, Normal Range of Motion Extremities: Present: normal. Absent: edema - Labs and Meds CBC 11/14/18 Range/Units 07:59 WBC 19.8 H (4.5-11.0) K/mm3 RBC 2.67 L (3.65-5.03) M/mm3 Hgb 8.4 L (10.1-14.3) gm/dl Hct 25.2 L (30.3-42.9) % Plt Count 297 (140-440) K/mm3 Lymph # [place] # [place] Eos # [place] Baso # [place] - Imaging and Cardiology EKG: image reviewed Echo: report reviewed (EF 50%, trace TR, minimal pericardial effusion. ) - EKG Sinus rhythms and dysrhythmias: sinus rhythm - Allied health notes Allied health notes reviewed: nursing
[2018-11-14] MEDS: LOVENOX SUB-Q SCH (21:42)
[2018-11-15] MEDS: HumaLOG SUB-Q SCH ×5 (00:33→23:29)
[2018-11-15] MEDS: DILAUDID IV PRN ×3 (00:33→08:40)
[2018-11-15] MEDS: LOPRESSOR IV SCH ×4 (00:34→19:55)
[2018-11-15] MEDS: ATIVAN IV PRN ×2 (03:46→10:16)
[2018-11-15] MEDS: NEURONTIN PO SCH ×3 (06:05→23:19)
[2018-11-15] MEDS: LASIX IV SCH ×2 (06:05→17:55)
[2018-11-15] MEDS: SOLU-Medrol IV SCH ×3 (06:05→23:20)
[2018-11-15] MEDS: PULMICORT IH SCH ×2 (07:28→20:02)
[2018-11-15] MEDS: BROVANA NEBU IH SCH ×2 (07:28→20:02)
[2018-11-15] MEDS: PROTONIX IV SCH (10:05)
[2018-11-15] MEDS: DIFLUCAN 200 ML IV SCH (10:06)
[2018-11-15] MEDS: SODIUM CHLORIDE FLUSH SYRINGE 10 ML IV SCH ×2 (10:17→23:20)
--- NOTE | 2018-11-15 10:30 | Progress Note ---
Assessment and Plan ARF ,failure to wean ,prolonged vent support. Currently on pressure support 10/5 cm H2O. Appear to be well-tolerated however she developed hypoventilation on pressure support is turned off (tidal volumes in the low 100's). Nursing have to get her one Ativan and 1 Dilaudid dose for my assessment. Sepsis/Fungemia. Complaining antibiotics, suspected secondary to PICC line Bilateral upper lobe pneumonia. Completed antibiotics Bilateral pleural effusions with left lower lung atelectasis. On Lasix , good diuresis.f/u CXR with some improvement? Partial bowel obstruction, perforation. Improved Diarrhea. No fever. On oral nutrition. Improving Compensated respiratory acidosis improved Chronic pain medications, anti-psychotic therapy. Progressively increased demand for narcotics in the context of hypercapnic failure, chronic Thrombocytopenia. Improved PAT, tachy-bradycardia episodes. Controlled COPD. controlled, minimal congestion Chronic pain/Narcotic dependent Rec BMP, monitor K+ Decrease IV steroids as tolerated Lasix 20 mg twice a day and monitor electrolytes, renal function Hold Ativan and Dilaudid during daytime for SBT. Discussed with patient and spouse in detail SBT in the morning off sedation after tracheostomy Continue nebulizer therapy Long-term placement planning Discussed with patient,spouse and staff in detail. All questions answered. Critical care time was 31 minutes of [id number] evaluation and coordination of care Subjective Date of service: 11/15/18 Principal diagnosis: respiratory failure Interval history: No events, on vent Objective Vital Signs - 12hr 11/14/18 11/14/18 11/14/18 22:30 23:00 23:30 Temperature Pulse Rate 88 94 H 91 H Pulse Rate [ Anterior Bilateral Throughout] Pulse Rate [ From Monitor] Respiratory 15 15 20 Rate Respiratory Rate [Anterior Bilateral Throughout] Blood Pressure 104/38 111/40 113/45 O2 Sat by Pulse 99 99 98 Oximetry O2 Sat by Pulse Oximetry [ Assessment] 11/14/18 11/15/18 11/15/18 23:42 00:00 00:05 Temperature 98.4 F Pulse Rate 91 H 90 94 H Pulse Rate [ Anterior Bilateral Throughout] Pulse Rate [ 90 From Monitor] Respiratory 31 H 16 15 Rate Respiratory Rate [Anterior Bilateral Throughout] Blood Pressure 113/45 108/39 108/39 O2 Sat by Pulse 98 98 98 Oximetry O2 Sat by Pulse Oximetry [ Assessment] 11/15/18 11/15/18 11/15/18 00:30 00:34 00:35 Temperature Pulse Rate 102 H 102 H 92 H Pulse Rate [ Anterior Bilateral Throughout] Pulse Rate [ From Monitor] Respiratory 16 Rate Respiratory Rate [Anterior Bilateral Throughout] Blood Pressure 119/41 119/41 119/41 O2 Sat by Pulse 99 97 Oximetry O2 Sat by Pulse Oximetry [ Assessment] 11/15/18 11/15/18 11/15/18 00:43 01:00 01:30 Temperature Pulse Rate 82 83 85 Pulse Rate [ Anterior Bilateral Throughout] Pulse Rate [ From Monitor] Respiratory 15 15 Rate Respiratory Rate [Anterior Bilateral Throughout] Blood Pressure 119/41 114/42 112/36 O2 Sat by Pulse 98 98 98 Oximetry O2 Sat by Pulse Oximetry [ Assessment] 11/15/18 11/15/18 11/15/18 02:00 02:30 03:00 Temperature Pulse Rate 88 90 88 Pulse Rate [ Anterior Bilateral Throughout] Pulse Rate [ 98 H From Monitor] Respiratory 15 16 16 Rate Respiratory Rate [Anterior Bilateral Throughout] Blood Pressure 108/36 106/42 111/35 O2 Sat by Pulse 98 98 97 Oximetry O2 Sat by Pulse Oximetry [ Assessment] 11/15/18 11/15/18 11/15/18 03:25 03:27 03:30 Temperature Pulse Rate 112 H 109 H Pulse Rate [ Anterior Bilateral Throughout] Pulse Rate [ From Monitor] Respiratory 16 Rate Respiratory Rate [Anterior Bilateral Throughout] Blood Pressure 119/51 119/51 O2 Sat by Pulse 99 99 Oximetry O2 Sat by Pulse 91 Oximetry [ Assessment] 11/15/18 11/15/18 11/15/18 04:00 04:30 05:00 Temperature 98.1 F Pulse Rate 99 H 93 H 94 H Pulse Rate [ Anterior Bilateral Throughout] Pulse Rate [ 99 H From Monitor] Respiratory 16 16 16 Rate Respiratory Rate [Anterior Bilateral Throughout] Blood Pressure 106/42 120/42 108/42 O2 Sat by Pulse 99 99 99 Oximetry O2 Sat by Pulse Oximetry [ Assessment] 11/15/18 11/15/18 11/15/18 05:30 06:00 06:31 Temperature Pulse Rate 92 H 101 H 110 H Pulse Rate [ Anterior Bilateral Throughout] Pulse Rate [ From Monitor] Respiratory 16 15 19 Rate Respiratory Rate [Anterior Bilateral Throughout] Blood Pressure 103/35 121/53 121/53 O2 Sat by Pulse 98 100 100 Oximetry O2 Sat by Pulse Oximetry [ Assessment] 11/15/18 11/15/18 11/15/18 07:01 07:10 07:13 Temperature Pulse Rate 102 H 109 H Pulse Rate [ Anterior Bilateral Throughout] Pulse Rate [ From Monitor] Respiratory 14 Rate Respiratory Rate [Anterior Bilateral Throughout] Blood Pressure 121/53 O2 Sat by Pulse 99 99 Oximetry O2 Sat by Pulse 104 H Oximetry [ Assessment] 11/15/18 11/15/18 11/15/18 07:25 07:31 08:00 Temperature 98.5 F Pulse Rate 106 H Pulse Rate [ 109 H 104 H Anterior Bilateral Throughout] Pulse Rate [ 89 From Monitor] Respiratory 14 Rate Respiratory 20 20 Rate [Anterior Bilateral Throughout] Blood Pressure 121/53 O2 Sat by Pulse 98 99 Oximetry O2 Sat by Pulse Oximetry [ Assessment] 11/15/18 11/15/18 11/15/18 08:01 08:10 08:30 Temperature Pulse Rate 108 H 114 H 94 H Pulse Rate [ Anterior Bilateral Throughout] Pulse Rate [ From Monitor] Respiratory 19 13 Rate Respiratory Rate [Anterior Bilateral Throughout] Blood Pressure 121/53 123/57 O2 Sat by Pulse 100 99 100 Oximetry O2 Sat by Pulse Oximetry [ Assessment] 11/15/18 08:42 Temperature Pulse Rate 89 Pulse Rate [ Anterior Bilateral Throughout] Pulse Rate [ From Monitor] Respiratory Rate Respiratory Rate [Anterior Bilateral Throughout] Blood Pressure 123/57 O2 Sat by Pulse Oximetry O2 Sat by Pulse Oximetry [ Assessment] Constitutional: alert, appears uncomfortable Eyes: non-icteric ENT: other (trach in position) Neck: supple, no JVD Effort: mildly labored Ascultation: Bilateral: clear, diminished breath sounds Percussion: Bilateral: not dull Cardiovascular: regular rate and rhythm Gastrointestinal: hypoactive bowel sounds, non-tender, non-distended, other Integumentary: normal Extremities: no edema Neurologic: normal mental status, non-focal exam Psychiatric: anxious CBC and BMP: 11/14/18 07:59 11/11/18 05:50 ABG, PT/INR, D-dimer: ABG POC ABG pH 7.470 (7.35-7.45) H 11/14/18 10:05 POC ABG pCO2 42.8 (35-45) 11/14/18 10:05 POC ABG pO2 83 (80-105) 11/14/18 10:05 POC ABG HCO3 31.2 (22-26 mml/L) 11/14/18 10:05 POC ABG Total CO2 32 (23-27mmol/L) 11/14/18 10:05 POC ABG O2 Sat 97 11/14/18 10:05 Abnormal lab findings: Abnormal Labs 10/22/18 10/22/18 10/22/18 15:31 15:54 15:54 WBC 11.5 H RBC 5.35 H Hgb 17.4 H Hct 50.3 H MCV MCH 33 H MCHC 35 H Plt Count Lymph % (Auto) 12.6 L [place] % (Auto) 14.8 H Lymph # [place] # 1.7 H Seg Neutrophils % 72.5 H Seg Neuts % (Manual) Lymphocytes % (Manual) Seg Neutrophils # 8.3 H Seg Neutrophils # Man Lymphocytes # (Manual) POC ABG pH POC ABG pCO2 POC ABG pO2 Sodium 134 L Potassium Chloride 88.1 L Carbon Dioxide BUN 51 H Creatinine 2.1 H Glucose 166 H POC Glucose Calcium Phosphorus Magnesium Iron TIBC Ferritin Alkaline Phosphatase NT-Pro-B Natriuret Pep Total Protein Albumin 3.4 L Lipase 10 L Free T4 10/23/18 10/23/18 10/23/18 04:32 04:32 10:53 WBC RBC Hgb Hct MCV MCH MCHC Plt Count Lymph % (Auto) 10.2 L [place] % (Auto) 14.7 H Lymph # 0.7 L [place] # 1.0 H Seg Neutrophils % 74.9 H Seg Neuts % (Manual) Lymphocytes % (Manual) Seg Neutrophils # Seg Neutrophils # Man Lymphocytes # (Manual) POC ABG pH POC ABG pCO2 POC ABG pO2 Sodium Potassium 3.1 L D 3.5 L Chloride Carbon Dioxide BUN 41 H 37 H Creatinine Glucose 111 H 110 H POC Glucose Calcium 8.1 L 8.1 L Phosphorus Magnesium Iron TIBC Ferritin Alkaline Phosphatase NT-Pro-B Natriuret Pep Total Protein Albumin Lipase Free T4 10/24/18 10/24/18 10/25/18 05:34 05:34 04:51 WBC RBC Hgb Hct MCV MCH MCHC Plt Count Lymph % (Auto) [place] % (Auto) Lymph # [place] # Seg Neutrophils % Seg Neuts % (Manual) Lymphocytes % (Manual) Seg Neutrophils # Seg Neutrophils # Man Lymphocytes # (Manual) POC ABG pH POC ABG pCO2 POC ABG pO2 Sodium Potassium 3.2 L 3.1 L Chloride 109.8 H 114.2 H Carbon Dioxide 17 L D BUN 21 H Creatinine Glucose 134 H 171 H POC Glucose Calcium 7.7 L 7.0 L Phosphorus 0.80 L* Magnesium Iron TIBC Ferritin Alkaline Phosphatase NT-Pro-B Natriuret Pep Total Protein Albumin Lipase Free T4 10/25/18 10/26/18 10/26/18 06:07 02:58 04:57 WBC RBC Hgb Hct MCV 99 H MCH 33 H MCHC Plt Count Lymph % (Auto) [place] % (Auto) Lymph # [place] # Seg Neutrophils % Seg Neuts % (Manual) Lymphocytes % (Manual) Seg Neutrophils # Seg Neutrophils # Man Lymphocytes # (Manual) POC ABG pH 7.090 L 7.320 L POC ABG pCO2 65.0 H 32.8 L POC ABG pO2 76 L Sodium Potassium Chloride Carbon Dioxide BUN Creatinine Glucose POC Glucose Calcium Phosphorus Magnesium Iron TIBC Ferritin Alkaline Phosphatase NT-Pro-B Natriuret Pep Total Protein Albumin Lipase Free T4 10/26/18 10/26/18 10/26/18 06:03 06:03 11:52 WBC 23.8 H RBC Hgb 15.4 H Hct 46.1 H D MCV MCH MCHC Plt Count Lymph % (Auto) [place] % (Auto) Lymph # [place] # Seg Neutrophils % Seg Neuts % (Manual) Lymphocytes % (Manual) Seg Neutrophils # Seg Neutrophils # Man Lymphocytes # (Manual) POC ABG pH POC ABG pCO2 POC ABG pO2 Sodium Potassium Chloride 109.5 H Carbon Dioxide 18 L BUN Creatinine Glucose 128 H POC Glucose 117 H Calcium 8.3 L D Phosphorus Magnesium Iron TIBC Ferritin Alkaline Phosphatase NT-Pro-B Natriuret Pep Total Protein Albumin Lipase Free T4 10/26/18 10/26/18 10/26/18 13:54 17:10 17:32 WBC RBC Hgb Hct MCV MCH MCHC Plt Count Lymph % (Auto) [place] % (Auto) Lymph # [place] # Seg Neutrophils % Seg Neuts % (Manual) Lymphocytes % (Manual) Seg Neutrophils # Seg Neutrophils # Man Lymphocytes # (Manual) POC ABG pH 7.215 L POC ABG pCO2 31.8 L POC ABG pO2 69 L 204 H Sodium Potassium 3.0 L D Chloride 114.5 H Carbon Dioxide 21 L BUN Creatinine Glucose POC Glucose Calcium 7.6 L Phosphorus Magnesium 1.40 L Iron TIBC Ferritin Alkaline Phosphatase NT-Pro-B Natriuret Pep Total Protein Albumin Lipase Free T4 10/26/18 10/27/18 10/27/18 23:13 00:40 01:09 WBC RBC Hgb Hct MCV MCH MCHC Plt Count Lymph % (Auto) [place] % (Auto) Lymph # [place] # Seg Neutrophils % Seg Neuts % (Manual) Lymphocytes % (Manual) Seg Neutrophils # Seg Neutrophils # Man Lymphocytes # (Manual) POC ABG pH POC ABG pCO2 POC ABG pO2 Sodium Potassium 3.4 L Chloride 115.0 H Carbon Dioxide 14 L D BUN Creatinine Glucose 228 H POC Glucose 48 L 264 H Calcium 7.1 L Phosphorus Magnesium Iron TIBC Ferritin Alkaline Phosphatase NT-Pro-B Natriuret Pep Total Protein Albumin Lipase Free T4 10/27/18 10/27/18 10/27/18 05:00 05:00 05:16 WBC 22.5 H RBC Hgb 14.7 H Hct 44.4 H MCV MCH MCHC Plt Count Lymph % (Auto) [place] % (Auto) Lymph # [place] # Seg Neutrophils % Seg Neuts % (Manual) Lymphocytes % (Manual) Seg Neutrophils # Seg Neutrophils # Man Lymphocytes # (Manual) POC ABG pH 7.304 L POC ABG pCO2 POC ABG pO2 116 H Sodium Potassium Chloride 118.4 H Carbon Dioxide 16 L BUN Creatinine Glucose 123 H POC Glucose Calcium 7.7 L Phosphorus Magnesium 2.60 H Iron TIBC Ferritin Alkaline Phosphatase NT-Pro-B Natriuret Pep Total Protein Albumin Lipase Free T4 10/28/18 10/28/18 10/28/18 04:25 04:25 15:37 WBC 23.5 H RBC Hgb Hct MCV MCH MCHC Plt Count Lymph % (Auto) [place] % (Auto) Lymph # [place] # Seg Neutrophils % Seg Neuts % (Manual) Lymphocytes % (Manual) Seg Neutrophils # Seg Neutrophils # Man Lymphocytes # (Manual) POC ABG pH POC ABG pCO2 POC ABG pO2 Sodium 147 H Potassium Chloride 116.9 H Carbon Dioxide 16 L BUN 23 H Creatinine Glucose POC Glucose 114 H Calcium 8.0 L Phosphorus Magnesium Iron TIBC Ferritin Alkaline Phosphatase NT-Pro-B Natriuret Pep Total Protein Albumin Lipase Free T4 10/28/18 10/28/18 10/28/18 20:33 22:07 23:31 WBC RBC Hgb Hct MCV MCH MCHC Plt Count Lymph % (Auto) [place] % (Auto) Lymph # [place] # Seg Neutrophils % Seg Neuts % (Manual) Lymphocytes % (Manual) Seg Neutrophils # Seg Neutrophils # Man Lymphocytes # (Manual) POC ABG pH 7.202 L 7.235 L POC ABG pCO2 POC ABG pO2 71 L Sodium Potassium Chloride Carbon Dioxide BUN Creatinine Glucose POC Glucose 207 H Calcium Phosphorus Magnesium Iron TIBC Ferritin Alkaline Phosphatase NT-Pro-B Natriuret Pep Total Protein Albumin Lipase Free T4 10/29/18 10/29/18 10/29/18 04:30 04:30 05:26 WBC 21.1 H RBC Hgb Hct MCV MCH MCHC Plt Count Lymph % (Auto) [place] % (Auto) Lymph # [place] # Seg Neutrophils % Seg Neuts % (Manual) 97.0 H Lymphocytes % (Manual) 3.0 L Seg Neutrophils # Seg Neutrophils # Man 20.5 H Lymphocytes # (Manual) 0.6 L POC ABG pH 7.305 L POC ABG pCO2 30.5 L POC ABG pO2 75 L Sodium 147 H Potassium 3.5 L Chloride 120.0 H Carbon Dioxide 17 L BUN 30 H Creatinine Glucose 246 H POC Glucose Calcium 7.9 L Phosphorus Magnesium Iron TIBC Ferritin Alkaline Phosphatase NT-Pro-B Natriuret Pep Total Protein Albumin Lipase Free T4 10/29/18 10/29/18 10/29/18 05:36 11:39 18:00 WBC RBC Hgb Hct MCV MCH MCHC Plt Count Lymph % (Auto) [place] % (Auto) Lymph # [place] # Seg Neutrophils % Seg Neuts % (Manual) Lymphocytes % (Manual) Seg Neutrophils # Seg Neutrophils # Man Lymphocytes # (Manual) POC ABG pH POC ABG pCO2 POC ABG pO2 Sodium Potassium Chloride Carbon Dioxide BUN Creatinine Glucose POC Glucose 204 H 224 H 221 H Calcium Phosphorus Magnesium Iron TIBC Ferritin Alkaline Phosphatase NT-Pro-B Natriuret Pep Total Protein Albumin Lipase Free T4 10/29/18 10/30/18 10/30/18 23:17 05:00 05:00 WBC 21.4 H RBC Hgb Hct MCV MCH MCHC Plt Count 134 L Lymph % (Auto) [place] % (Auto) Lymph # [place] # Seg Neutrophils % Seg Neuts % (Manual) 97.0 H Lymphocytes % (Manual) 3.0 L Seg Neutrophils # Seg Neutrophils # Man 20.8 H Lymphocytes # (Manual) 0.6 L POC ABG pH POC ABG pCO2 POC ABG pO2 Sodium 148 H Potassium 3.1 L Chloride 120.3 H Carbon Dioxide 18 L BUN 31 H Creatinine Glucose 205 H POC Glucose 181 H Calcium 8.0 L Phosphorus Magnesium Iron TIBC Ferritin Alkaline Phosphatase NT-Pro-B Natriuret Pep Total Protein Albumin Lipase Free T4 10/30/18 10/30/18 10/30/18 05:14 05:25 05:26 WBC RBC Hgb Hct MCV MCH MCHC Plt Count Lymph % (Auto) [place] % (Auto) Lymph # [place] # Seg Neutrophils % Seg Neuts % (Manual) Lymphocytes % (Manual) Seg Neutrophils # Seg Neutrophils # Man Lymphocytes # (Manual) POC ABG pH 7.296 L 7.245 L POC ABG pCO2 31.1 L POC ABG pO2 54 L 59 L Sodium Potassium Chloride Carbon Dioxide BUN Creatinine Glucose POC Glucose 199 H Calcium Phosphorus Magnesium Iron TIBC Ferritin Alkaline Phosphatase NT-Pro-B Natriuret Pep Total Protein Albumin Lipase Free T4 10/30/18 10/30/18 10/31/18 13:23 18:25 00:22 WBC RBC Hgb Hct MCV MCH MCHC Plt Count Lymph % (Auto) [place] % (Auto) Lymph # [place] # Seg Neutrophils % Seg Neuts % (Manual) Lymphocytes % (Manual) Seg Neutrophils # Seg Neutrophils # Man Lymphocytes # (Manual) POC ABG pH POC ABG pCO2 POC ABG pO2 Sodium Potassium Chloride Carbon Dioxide BUN Creatinine Glucose POC Glucose 146 H 158 H 162 H Calcium Phosphorus Magnesium Iron TIBC Ferritin Alkaline Phosphatase NT-Pro-B Natriuret Pep Total Protein Albumin Lipase Free T4 10/31/18 10/31/18 10/31/18 04:39 05:14 07:05 WBC RBC Hgb Hct MCV MCH MCHC Plt Count Lymph % (Auto) [place] % (Auto) Lymph # [place] # Seg Neutrophils % Seg Neuts % (Manual) Lymphocytes % (Manual) Seg Neutrophils # Seg Neutrophils # Man Lymphocytes # (Manual) POC ABG pH 7.238 L POC ABG pCO2 POC ABG pO2 Sodium Potassium Chloride 115.8 H Carbon Dioxide 18 L BUN 39 H Creatinine 1.3 H Glucose 167 H POC Glucose 145 H Calcium 7.5 L Phosphorus 1.80 L Magnesium Iron TIBC Ferritin Alkaline Phosphatase NT-Pro-B Natriuret Pep Total Protein Albumin Lipase Free T4 10/31/18 10/31/18 10/31/18 10:43 12:03 17:00 WBC RBC Hgb Hct MCV MCH MCHC Plt Count Lymph % (Auto) [place] % (Auto) Lymph # [place] # Seg Neutrophils % Seg Neuts % (Manual) Lymphocytes % (Manual) Seg Neutrophils # Seg Neutrophils # Man Lymphocytes # (Manual) POC ABG pH 7.304 L POC ABG pCO2 33.3 L POC ABG pO2 Sodium Potassium Chloride Carbon Dioxide BUN Creatinine Glucose POC Glucose 159 H Calcium Phosphorus Magnesium Iron TIBC Ferritin Alkaline Phosphatase NT-Pro-B Natriuret Pep Total Protein Albumin Lipase Free T4 0.49 L 10/31/18 11/01/18 11/01/18 17:00 00:44 05:27 WBC RBC Hgb Hct MCV MCH MCHC Plt Count Lymph % (Auto) [place] % (Auto) Lymph # [place] # Seg Neutrophils % Seg Neuts % (Manual) Lymphocytes % (Manual) Seg Neutrophils # Seg Neutrophils # Man Lymphocytes # (Manual) POC ABG pH 7.248 L POC ABG pCO2 34.8 L POC ABG pO2 135 H Sodium Potassium Chloride Carbon Dioxide BUN Creatinine Glucose POC Glucose 127 H 118 H Calcium Phosphorus Magnesium Iron TIBC Ferritin Alkaline Phosphatase NT-Pro-B Natriuret Pep Total Protein Albumin Lipase Free T4 11/01/18 11/01/18 11/01/18 06:40 06:40 06:53 WBC 18.9 H RBC 3.63 L Hgb Hct MCV MCH MCHC Plt Count 64 L Lymph % (Auto) [place] % (Auto) Lymph # [place] # Seg Neutrophils % Seg Neuts % (Manual) 98.0 H Lymphocytes % (Manual) 1.0 L Seg Neutrophils # Seg Neutrophils # Man 18.5 H Lymphocytes # (Manual) 0.2 L POC ABG pH POC ABG pCO2 POC ABG pO2 Sodium Potassium 3.5 L Chloride 114.2 H Carbon Dioxide 17 L BUN 49 H Creatinine Glucose 107 H POC Glucose 127 H Calcium 7.3 L Phosphorus Magnesium 1.60 L Iron TIBC Ferritin Alkaline Phosphatase NT-Pro-B Natriuret Pep Total Protein Albumin Lipase Free T4 11/01/18 11/01/18 11/01/18 11:49 13:13 17:24 WBC RBC Hgb Hct MCV MCH MCHC Plt Count Lymph % (Auto) [place] % (Auto) Lymph # [place] # Seg Neutrophils % Seg Neuts % (Manual) Lymphocytes % (Manual) Seg Neutrophils # Seg Neutrophils # Man Lymphocytes # (Manual) POC ABG pH POC ABG pCO2 POC ABG pO2 182 H Sodium Potassium Chloride Carbon Dioxide BUN Creatinine Glucose POC Glucose 134 H 111 H Calcium Phosphorus Magnesium Iron TIBC Ferritin Alkaline Phosphatase NT-Pro-B Natriuret Pep Total Protein Albumin Lipase Free T4 11/01/18 11/02/18 11/02/18 23:07 04:32 05:00 WBC RBC Hgb Hct MCV MCH MCHC Plt Count Lymph % (Auto) [place] % (Auto) Lymph # [place] # Seg Neutrophils % Seg Neuts % (Manual) Lymphocytes % (Manual) Seg Neutrophils # Seg Neutrophils # Man Lymphocytes # (Manual) POC ABG pH 7.244 L POC ABG pCO2 33.2 L POC ABG pO2 123 H Sodium Potassium 3.0 L Chloride 114.1 H Carbon Dioxide 15 L BUN 47 H Creatinine Glucose 127 H POC Glucose 123 H Calcium 7.7 L Phosphorus Magnesium Iron TIBC Ferritin Alkaline Phosphatase NT-Pro-B Natriuret Pep Total Protein Albumin Lipase Free T4 11/02/18 11/02/18 11/02/18 05:00 05:29 11:27 WBC RBC Hgb Hct MCV MCH MCHC Plt Count Lymph % (Auto) [place] % (Auto) Lymph # [place] # Seg Neutrophils % Seg Neuts % (Manual) Lymphocytes % (Manual) Seg Neutrophils # Seg Neutrophils # Man Lymphocytes # (Manual) POC ABG pH POC ABG pCO2 POC ABG pO2 Sodium Potassium Chloride Carbon Dioxide BUN Creatinine Glucose POC Glucose 118 H 137 H Calcium Phosphorus Magnesium 1.60 L Iron TIBC Ferritin Alkaline Phosphatase NT-Pro-B Natriuret Pep Total Protein Albumin Lipase Free T4 11/02/18 11/02/18 11/03/18 12:53 23:35 04:14 WBC RBC Hgb Hct MCV MCH MCHC Plt Count Lymph % (Auto) [place] % (Auto) Lymph # [place] # Seg Neutrophils % Seg Neuts % (Manual) Lymphocytes % (Manual) Seg Neutrophils # Seg Neutrophils # Man Lymphocytes # (Manual) POC ABG pH POC ABG pCO2 30.3 L POC ABG pO2 134 H 129 H Sodium Potassium Chloride Carbon Dioxide BUN Creatinine Glucose POC Glucose 115 H Calcium Phosphorus Magnesium Iron TIBC Ferritin Alkaline Phosphatase NT-Pro-B Natriuret Pep Total Protein Albumin Lipase Free T4 11/03/18 11/03/18 11/03/18 05:34 11:30 11:30 WBC 16.4 H RBC 3.50 L Hgb Hct MCV MCH MCHC Plt Count 136 L D Lymph % (Auto) [place] % (Auto) Lymph # [place] # Seg Neutrophils % Seg Neuts % (Manual) 97.0 H Lymphocytes % (Manual) 2.0 L Seg Neutrophils # Seg Neutrophils # Man 15.9 H Lymphocytes # (Manual) 0.3 L POC ABG pH POC ABG pCO2 POC ABG pO2 Sodium Potassium 3.1 L Chloride 110.4 H Carbon Dioxide 17 L BUN 41 H Creatinine Glucose 129 H POC Glucose 116 H Calcium 7.7 L Phosphorus Magnesium 1.60 L Iron TIBC Ferritin Alkaline Phosphatase NT-Pro-B Natriuret Pep Total Protein 4.2 L Albumin 1.2 L Lipase Free T4 11/03/18 11/03/18 11/03/18 12:01 17:35 21:37 WBC RBC Hgb Hct MCV MCH MCHC Plt Count Lymph % (Auto) [place] % (Auto) Lymph # [place] # Seg Neutrophils % Seg Neuts % (Manual) Lymphocytes % (Manual) Seg Neutrophils # Seg Neutrophils # Man Lymphocytes # (Manual) POC ABG pH POC ABG pCO2 POC ABG pO2 Sodium Potassium Chloride Carbon Dioxide BUN Creatinine Glucose POC Glucose 132 H 132 H 126 H Calcium Phosphorus Magnesium Iron TIBC Ferritin Alkaline Phosphatase NT-Pro-B Natriuret Pep Total Protein Albumin Lipase Free T4 11/03/18 11/04/18 11/04/18 23:30 05:14 05:15 WBC RBC Hgb Hct MCV MCH MCHC Plt Count Lymph % (Auto) [place] % (Auto) Lymph # [place] # Seg Neutrophils % Seg Neuts % (Manual) Lymphocytes % (Manual) Seg Neutrophils # Seg Neutrophils # Man Lymphocytes # (Manual) POC ABG pH POC ABG pCO2 30.9 L POC ABG pO2 192 H Sodium Potassium Chloride Carbon Dioxide BUN Creatinine Glucose POC Glucose 115 H 123 H Calcium Phosphorus Magnesium Iron TIBC Ferritin Alkaline Phosphatase NT-Pro-B Natriuret Pep Total Protein Albumin Lipase Free T4 11/04/18 11/04/18 11/04/18 09:39 09:39 11:43 WBC 15.2 H RBC 3.18 L Hgb Hct 29.9 L MCV MCH MCHC Plt Count Lymph % (Auto) [place] % (Auto) Lymph # [place] # Seg Neutrophils % Seg Neuts % (Manual) 98.0 H Lymphocytes % (Manual) 1.0 L Seg Neutrophils # Seg Neutrophils # Man 14.9 H Lymphocytes # (Manual) 0.2 L POC ABG pH POC ABG pCO2 POC ABG pO2 Sodium 135 L D Potassium Chloride 109.5 H Carbon Dioxide 16 L BUN 46 H Creatinine Glucose 136 H POC Glucose 138 H Calcium 8.0 L Phosphorus Magnesium Iron TIBC Ferritin Alkaline Phosphatase NT-Pro-B Natriuret Pep Total Protein Albumin Lipase Free T4 11/04/18 11/04/18 11/05/18 17:31 23:42 05:23 WBC RBC Hgb Hct MCV MCH MCHC Plt Count Lymph % (Auto) [place] % (Auto) Lymph # [place] # Seg Neutrophils % Seg Neuts % (Manual) Lymphocytes % (Manual) Seg Neutrophils # Seg Neutrophils # Man Lymphocytes # (Manual) POC ABG pH POC ABG pCO2 POC ABG pO2 Sodium Potassium Chloride Carbon Dioxide BUN Creatinine Glucose POC Glucose 139 H 138 H 148 H Calcium Phosphorus Magnesium Iron TIBC Ferritin Alkaline Phosphatase NT-Pro-B Natriuret Pep Total Protein Albumin Lipase Free T4 11/05/18 11/05/18 11/05/18 05:30 05:30 11:46 WBC 14.2 H RBC 3.12 L Hgb 10.0 L Hct 29.1 L MCV MCH MCHC Plt Count Lymph % (Auto) [place] % (Auto) Lymph # [place] # Seg Neutrophils % Seg Neuts % (Manual) Lymphocytes % (Manual) Seg Neutrophils # Seg Neutrophils # Man Lymphocytes # (Manual) POC ABG pH POC ABG pCO2 POC ABG pO2 Sodium Potassium Chloride Carbon Dioxide 21 L BUN 42 H Creatinine Glucose 125 H POC Glucose 157 H Calcium 7.9 L Phosphorus Magnesium Iron TIBC Ferritin Alkaline Phosphatase NT-Pro-B Natriuret Pep Total Protein Albumin Lipase Free T4 11/05/18 11/05/18 11/05/18 17:09 20:03 23:43 WBC RBC Hgb Hct MCV MCH MCHC Plt Count Lymph % (Auto) [place] % (Auto) Lymph # [place] # Seg Neutrophils % Seg Neuts % (Manual) Lymphocytes % (Manual) Seg Neutrophils # Seg Neutrophils # Man Lymphocytes # (Manual) POC ABG pH POC ABG pCO2 POC ABG pO2 76 L Sodium Potassium Chloride Carbon Dioxide BUN Creatinine Glucose POC Glucose 142 H 204 H Calcium Phosphorus Magnesium Iron TIBC Ferritin Alkaline Phosphatase NT-Pro-B Natriuret Pep Total Protein Albumin Lipase Free T4 11/06/18 11/06/18 11/06/18 04:21 12:14 17:17 WBC RBC Hgb Hct MCV MCH MCHC Plt Count Lymph % (Auto) [place] % (Auto) Lymph # [place] # Seg Neutrophils % Seg Neuts % (Manual) Lymphocytes % (Manual) Seg Neutrophils # Seg Neutrophils # Man Lymphocytes # (Manual) POC ABG pH POC ABG pCO2 POC ABG pO2 Sodium 133 L Potassium Chloride Carbon Dioxide 18 L BUN 47 H Creatinine Glucose 187 H POC Glucose 232 H 199 H Calcium 7.8 L Phosphorus 5.30 H D Magnesium 2.50 H Iron TIBC Ferritin Alkaline Phosphatase NT-Pro-B Natriuret Pep Total Protein Albumin Lipase Free T4 11/06/18 11/06/18 11/07/18 19:46 23:30 00:00 WBC RBC Hgb Hct MCV MCH MCHC Plt Count Lymph % (Auto) [place] % (Auto) Lymph # [place] # Seg Neutrophils % Seg Neuts % (Manual) Lymphocytes % (Manual) Seg Neutrophils # Seg Neutrophils # Man Lymphocytes # (Manual) POC ABG pH 7.317 L POC ABG pCO2 50.3 H POC ABG pO2 58 L 57 L Sodium Potassium Chloride Carbon Dioxide BUN Creatinine Glucose POC Glucose 224 H Calcium Phosphorus Magnesium Iron TIBC Ferritin Alkaline Phosphatase NT-Pro-B Natriuret Pep Total Protein Albumin Lipase Free T4 11/07/18 11/07/18 11/07/18 04:55 04:55 04:55 WBC 25.2 H RBC 3.64 L Hgb Hct MCV MCH MCHC Plt Count Lymph % (Auto) [place] % (Auto) Lymph # [place] # Seg Neutrophils % Seg Neuts % (Manual) Lymphocytes % (Manual) Seg Neutrophils # Seg Neutrophils # Man Lymphocytes # (Manual) POC ABG pH POC ABG pCO2 POC ABG pO2 Sodium Potassium Chloride Carbon Dioxide BUN 54 H Creatinine Glucose 270 H POC Glucose Calcium 7.9 L Phosphorus 5.00 H Magnesium Iron TIBC Ferritin Alkaline Phosphatase NT-Pro-B Natriuret Pep 4507 H Total Protein Albumin Lipase Free T4 11/07/18 11/07/18 11/07/18 05:46 08:08 11:52 WBC RBC Hgb Hct MCV MCH MCHC Plt Count Lymph % (Auto) [place] % (Auto) Lymph # [place] # Seg Neutrophils % Seg Neuts % (Manual) Lymphocytes % (Manual) Seg Neutrophils # Seg Neutrophils # Man Lymphocytes # (Manual) POC ABG pH POC ABG pCO2 47.6 H POC ABG pO2 106 H Sodium Potassium Chloride Carbon Dioxide BUN Creatinine Glucose POC Glucose 266 H 323 H Calcium Phosphorus Magnesium Iron TIBC Ferritin Alkaline Phosphatase NT-Pro-B Natriuret Pep Total Protein Albumin Lipase Free T4 11/07/18 11/07/18 11/07/18 12:29 17:57 23:48 WBC RBC Hgb Hct MCV MCH MCHC Plt Count Lymph % (Auto) [place] % (Auto) Lymph # [place] # Seg Neutrophils % Seg Neuts % (Manual) Lymphocytes % (Manual) Seg Neutrophils # Seg Neutrophils # Man Lymphocytes # (Manual) POC ABG pH POC ABG pCO2 POC ABG pO2 Sodium Potassium Chloride Carbon Dioxide BUN Creatinine Glucose POC Glucose 325 H 286 H 231 H Calcium Phosphorus Magnesium Iron TIBC Ferritin Alkaline Phosphatase NT-Pro-B Natriuret Pep Total Protein Albumin Lipase Free T4 11/08/18 11/08/18 11/08/18 03:58 05:05 05:05 WBC 18.4 H RBC 3.20 L Hgb 10.0 L Hct 29.7 L MCV MCH MCHC Plt Count Lymph % (Auto) [place] % (Auto) Lymph # [place] # Seg Neutrophils % Seg Neuts % (Manual) Lymphocytes % (Manual) Seg Neutrophils # Seg Neutrophils # Man Lymphocytes # (Manual) POC ABG pH 7.524 H POC ABG pCO2 34.3 L POC ABG pO2 Sodium Potassium Chloride Carbon Dioxide BUN 61 H Creatinine Glucose 253 H POC Glucose Calcium 7.6 L Phosphorus Magnesium Iron TIBC Ferritin Alkaline Phosphatase NT-Pro-B Natriuret Pep Total Protein Albumin Lipase Free T4 11/08/18 11/08/18 11/08/18 05:28 11:28 18:21 WBC RBC Hgb Hct MCV MCH MCHC Plt Count Lymph % (Auto) [place] % (Auto) Lymph # [place] # Seg Neutrophils % Seg Neuts % (Manual) Lymphocytes % (Manual) Seg Neutrophils # Seg Neutrophils # Man Lymphocytes # (Manual) POC ABG pH POC ABG pCO2 POC ABG pO2 Sodium Potassium Chloride Carbon Dioxide BUN Creatinine Glucose POC Glucose 295 H 253 H 225 H Calcium Phosphorus Magnesium Iron TIBC Ferritin Alkaline Phosphatase NT-Pro-B Natriuret Pep Total Protein Albumin Lipase Free T4 11/09/18 11/09/18 11/09/18 00:57 04:06 06:06 WBC RBC Hgb Hct MCV MCH MCHC Plt Count Lymph % (Auto) [place] % (Auto) Lymph # [place] # Seg Neutrophils % Seg Neuts % (Manual) Lymphocytes % (Manual) Seg Neutrophils # Seg Neutrophils # Man Lymphocytes # (Manual) POC ABG pH 7.509 H POC ABG pCO2 POC ABG pO2 Sodium Potassium Chloride Carbon Dioxide BUN Creatinine Glucose POC Glucose 218 H 199 H Calcium Phosphorus Magnesium Iron TIBC Ferritin Alkaline Phosphatase NT-Pro-B Natriuret Pep Total Protein Albumin Lipase Free T4 11/09/18 11/09/18 11/09/18 06:51 06:51 12:07 WBC 13.5 H RBC 2.97 L Hgb 9.3 L Hct 27.6 L MCV MCH MCHC Plt Count Lymph % (Auto) [place] % (Auto) Lymph # [place] # Seg Neutrophils % Seg Neuts % (Manual) Lymphocytes % (Manual) Seg Neutrophils # Seg Neutrophils # Man Lymphocytes # (Manual) POC ABG pH POC ABG pCO2 POC ABG pO2 Sodium Potassium Chloride 96.5 L Carbon Dioxide 32 H BUN 58 H Creatinine Glucose 191 H POC Glucose 212 H Calcium 7.5 L Phosphorus Magnesium Iron TIBC Ferritin Alkaline Phosphatase NT-Pro-B Natriuret Pep Total Protein Albumin Lipase Free T4 11/09/18 11/10/18 11/10/18 18:29 00:09 04:21 WBC RBC Hgb Hct MCV MCH MCHC Plt Count Lymph % (Auto) [place] % (Auto) Lymph # [place] # Seg Neutrophils % Seg Neuts % (Manual) Lymphocytes % (Manual) Seg Neutrophils # Seg Neutrophils # Man Lymphocytes # (Manual) POC ABG pH 7.467 H POC ABG pCO2 49.9 H POC ABG pO2 76 L Sodium Potassium Chloride Carbon Dioxide BUN Creatinine Glucose POC Glucose 192 H 214 H Calcium Phosphorus Magnesium Iron TIBC Ferritin Alkaline Phosphatase NT-Pro-B Natriuret Pep Total Protein Albumin Lipase Free T4 11/10/18 11/10/18 11/10/18 04:39 04:39 06:05 WBC 14.3 H RBC 3.09 L Hgb 9.7 L Hct 28.9 L MCV MCH MCHC Plt Count Lymph % (Auto) [place] % (Auto) Lymph # [place] # Seg Neutrophils % Seg Neuts % (Manual) Lymphocytes % (Manual) Seg Neutrophils # Seg Neutrophils # Man Lymphocytes # (Manual) POC ABG pH POC ABG pCO2 POC ABG pO2 Sodium Potassium Chloride 97.5 L Carbon Dioxide 31 H BUN 53 H Creatinine Glucose 196 H POC Glucose 202 H Calcium 7.7 L Phosphorus Magnesium Iron TIBC Ferritin Alkaline Phosphatase NT-Pro-B Natriuret Pep Total Protein Albumin Lipase Free T4 11/10/18 11/10/18 11/11/18 12:32 17:16 00:06 WBC RBC Hgb Hct MCV MCH MCHC Plt Count Lymph % (Auto) [place] % (Auto) Lymph # [place] # Seg Neutrophils % Seg Neuts % (Manual) Lymphocytes % (Manual) Seg Neutrophils # Seg Neutrophils # Man Lymphocytes # (Manual) POC ABG pH POC ABG pCO2 POC ABG pO2 Sodium Potassium Chloride Carbon Dioxide BUN Creatinine Glucose POC Glucose 197 H 200 H 177 H Calcium Phosphorus Magnesium Iron TIBC Ferritin Alkaline Phosphatase NT-Pro-B Natriuret Pep Total Protein Albumin Lipase Free T4 11/11/18 11/11/18 11/11/18 04:43 05:24 05:50 WBC 14.1 H RBC 2.92 L Hgb 9.1 L Hct 27.0 L MCV MCH MCHC Plt Count Lymph % (Auto) [place] % (Auto) Lymph # [place] # Seg Neutrophils % Seg Neuts % (Manual) Lymphocytes % (Manual) Seg Neutrophils # Seg Neutrophils # Man Lymphocytes # (Manual) POC ABG pH POC ABG pCO2 50.1 H POC ABG pO2 Sodium Potassium Chloride Carbon Dioxide BUN Creatinine Glucose POC Glucose 199 H Calcium Phosphorus Magnesium Iron TIBC Ferritin Alkaline Phosphatase NT-Pro-B Natriuret Pep Total Protein Albumin Lipase Free T4 11/11/18 11/11/18 11/11/18 05:50 12:00 17:57 WBC RBC Hgb Hct MCV MCH MCHC Plt Count Lymph % (Auto) [place] % (Auto) Lymph # [place] # Seg Neutrophils % Seg Neuts % (Manual) Lymphocytes % (Manual) Seg Neutrophils # Seg Neutrophils # Man Lymphocytes # (Manual) POC ABG pH POC ABG pCO2 POC ABG pO2 Sodium Potassium 3.5 L Chloride Carbon Dioxide 34 H BUN 47 H Creatinine 0.5 L Glucose 169 H POC Glucose 168 H 194 H Calcium 8.2 L Phosphorus Magnesium Iron TIBC Ferritin Alkaline Phosphatase 142 H NT-Pro-B Natriuret Pep Total Protein 4.4 L Albumin 2.1 L Lipase Free T4 11/11/18 11/12/18 11/12/18 23:26 05:32 09:26 WBC RBC Hgb Hct MCV MCH MCHC Plt Count Lymph % (Auto) [place] % (Auto) Lymph # [place] # Seg Neutrophils % Seg Neuts % (Manual) Lymphocytes % (Manual) Seg Neutrophils # Seg Neutrophils # Man Lymphocytes # (Manual) POC ABG pH POC ABG pCO2 POC ABG pO2 Sodium Potassium Chloride Carbon Dioxide BUN Creatinine Glucose POC Glucose 181 H 186 H 158 H Calcium Phosphorus Magnesium Iron TIBC Ferritin Alkaline Phosphatase NT-Pro-B Natriuret Pep Total Protein Albumin Lipase Free T4 11/12/18 11/12/18 11/12/18 11:42 17:39 23:25 WBC RBC Hgb Hct MCV MCH MCHC Plt Count Lymph % (Auto) [place] % (Auto) Lymph # [place] # Seg Neutrophils % Seg Neuts % (Manual) Lymphocytes % (Manual) Seg Neutrophils # Seg Neutrophils # Man Lymphocytes # (Manual) POC ABG pH POC ABG pCO2 POC ABG pO2 Sodium Potassium Chloride Carbon Dioxide BUN Creatinine Glucose POC Glucose 141 H 183 H 147 H Calcium Phosphorus Magnesium Iron TIBC Ferritin Alkaline Phosphatase NT-Pro-B Natriuret Pep Total Protein Albumin Lipase Free T4 11/13/18 11/13/18 11/13/18 12:16 18:10 21:21 WBC RBC Hgb Hct MCV MCH MCHC Plt Count Lymph % (Auto) [place] % (Auto) Lymph # [place] # Seg Neutrophils % Seg Neuts % (Manual) Lymphocytes % (Manual) Seg Neutrophils # Seg Neutrophils # Man Lymphocytes # (Manual) POC ABG pH POC ABG pCO2 POC ABG pO2 Sodium Potassium Chloride Carbon Dioxide BUN Creatinine Glucose POC Glucose 114 H 127 H 185 H Calcium Phosphorus Magnesium Iron TIBC Ferritin Alkaline Phosphatase NT-Pro-B Natriuret Pep Total Protein Albumin Lipase Free T4 11/13/18 11/14/18 11/14/18 23:11 03:28 03:28 WBC RBC Hgb Hct MCV MCH MCHC Plt Count Lymph % (Auto) [place] % (Auto) Lymph # [place] # Seg Neutrophils % Seg Neuts % (Manual) Lymphocytes % (Manual) Seg Neutrophils # Seg Neutrophils # Man Lymphocytes # (Manual) POC ABG pH POC ABG pCO2 POC ABG pO2 Sodium Potassium Chloride Carbon Dioxide BUN Creatinine Glucose POC Glucose 184 H Calcium Phosphorus Magnesium Iron 31 L TIBC 173 L Ferritin 510.3 H Alkaline Phosphatase NT-Pro-B Natriuret Pep Total Protein Albumin Lipase Free T4 11/14/18 11/14/18 11/14/18 05:12 07:59 10:05 WBC 19.8 H RBC 2.67 L Hgb 8.4 L Hct 25.2 L MCV MCH MCHC Plt Count Lymph % (Auto) [place] % (Auto) Lymph # [place] # Seg Neutrophils % Seg Neuts % (Manual) 96.0 H Lymphocytes % (Manual) 0 L Seg Neutrophils # Seg Neutrophils # Man 19.0 H Lymphocytes # (Manual) 0.0 L POC ABG pH 7.470 H POC ABG pCO2 POC ABG pO2 Sodium Potassium Chloride Carbon Dioxide BUN Creatinine Glucose POC Glucose 178 H Calcium Phosphorus Magnesium Iron TIBC Ferritin Alkaline Phosphatase NT-Pro-B Natriuret Pep Total Protein Albumin Lipase Free T4 11/14/18 11/14/18 11/14/18 11:40 18:03 23:15 WBC RBC Hgb Hct MCV MCH MCHC Plt Count Lymph % (Auto) [place] % (Auto) Lymph # [place] # Seg Neutrophils % Seg Neuts % (Manual) Lymphocytes % (Manual) Seg Neutrophils # Seg Neutrophils # Man Lymphocytes # (Manual) POC ABG pH POC ABG pCO2 POC ABG pO2 Sodium Potassium Chloride Carbon Dioxide BUN Creatinine Glucose POC Glucose 168 H 221 H 223 H Calcium Phosphorus Magnesium Iron TIBC Ferritin Alkaline Phosphatase NT-Pro-B Natriuret Pep Total Protein Albumin Lipase Free T4 11/15/18 05:29 WBC RBC Hgb Hct MCV MCH MCHC Plt Count Lymph % (Auto) [place] % (Auto) Lymph # [place] # Seg Neutrophils % Seg Neuts % (Manual) Lymphocytes % (Manual) Seg Neutrophils # Seg Neutrophils # Man Lymphocytes # (Manual) POC ABG pH POC ABG pCO2 POC ABG pO2 Sodium Potassium Chloride Carbon Dioxide BUN Creatinine Glucose POC Glucose 210 H Calcium Phosphorus Magnesium Iron TIBC Ferritin Alkaline Phosphatase NT-Pro-B Natriuret Pep Total Protein Albumin Lipase Free T4 Allied health notes reviewed: nursing
--- NOTE | 2018-11-15 10:59 | Progress Note ---
Assessment and Plan Assessment and plan: Gastric perforation. Repeat CT scan on 10/30 revealed pSBO resolved, no evidence for bowel ischemia. Small contained gastric perforation at lesser curve. No gross free air or contrast extravasation. Surgery recommends conservative management Sepsis/candidemia. Etiology is due to Ayla glabrata. Patient with TPN and PICC line. PICC line removed. Repeat fungal cultures are negative. Continue I V antifungal and follow-up blood cultures. Removed current central line and inserted midline. ID started fluconazole 11/13/18 and discontinued micafungin. Thrombocytopenia. Etiology likely secondary to sepsis. Hematology following. Bilateral upper lobe/aspiration pneumonia. Sputum culture positive for Escherichia coli and stenotrophomonas. Continue antibiotics per ID. Bilateral pleural effusions. Acute exacerbation COPD. Scheduled Duo Nebs and Pulmicort; albuterol when necessary Acute hypoxic respiratory failure. Patient was reintubated on 10/28/18 and currently on mechanical ventilation. Etiology secondary to COPD/pneumonia/sepsis. Extubated 11/05, re-intubated 11/07 Wean mechanical ventilation per pulmonary. Patient reportedly tolerating CPAP trials. Presumed aspiration pneumonia versus healthcare associated pneumonia. Tracheal aspirate cultures from 10/28 with Escherichia coli and stenotrophomonas. Completed antibiotics. Hypokalemia. Replete potassium as needed. Hypertension. IV hydralazine when necessary Lupus. Supportive care Fibromyalgia. supportive care History of opioid dependence ADWOA due to vasomotor nephropathy, now resolved The high probability of a clinically significant, sudden or life threatening deterioration of the [GI and respiratory] system(s) required my full and direct attention, intervention and personal management. The aggregate critical care time was [31] minutes. This time is in addition to time spent performing reported procedures but includes the following: [x] Data Review and interpretation [x] Patient assessment and monitoring of vital signs [x] Documentation [x] Medication orders and management History Interval history: Patient is 73-year-old female with history of hypertension, lupus, fibromyalgia, COPD, opioid dependence (follows Dr. Felix Muñiz at pain clinic) who presented to [facility] ED with complaints of intractable nausea, vomiting, diarrhea for 3 days. On initial presentation to the ED she was found to be tachycardiac with heart rate 113 BPM, leukocytosis with WBC 11.5, elevated BUN/Cr 51/2.1. Patient has history of COPD and at baseline does not require home oxygen use. She was admitted to [facility]. GI was consulted, she was evaluated. CT Abdomen revealed partial SBO versus ileus therefore surgeon consulted. Also patient became more short of breath, placed on BIPAP with no improvement then intubated 10/26/18 for acute resp failure and transferred to ICU. Obstruction series completed on 10/27 which showed improved but small bowel and stomach dilatation. Follow-up series on 10/28 showed no significant change since previous study. NG tube was removed due to patient not tolerating/refusing. Patient was placed back on BiPAP but decompensated on the night of 10/28/18 and had to be reintubated. Patient currently on mechanical ventilation. Patient has had further complications now with findings consistent with contained gastric perforation on repeat CT scan 10/30, managed conservatively. She was extubated 11/05, re-intubated 11/07/18. This is 3rd intubation so Tracheostomy has been recommended and being planned. No PEG yet, for at least 2 weeks because of recent gastric perforation. Hospitalist Physical - Constitutional Vitals: Temp Pulse Resp BP Pulse Ox 98.5 F 89 13 123/57 100 11/15/18 08:00 11/15/18 08:42 11/15/18 08:30 11/15/18 08:42 11/15/18 08:30 General appearance: Present: other (intubated, opens eyes to commands) - EENT Eyes: Present: PERRL, EOM intact ENT: hearing intact, clear oral mucosa, dentition normal - Neck Neck: Present: supple, normal ROM - Respiratory Respiratory effort: normal Respiratory: bilateral: CTA - Cardiovascular Rhythm: regular Heart Sounds: Present: S1 & S2. Absent: gallop, rub - Extremities Extremities: no ischemia, No edema, Full ROM - Abdominal General gastrointestinal: soft, non-tender, non-distended, normal bowel sounds - Integumentary Integumentary: Present: clear, warm, dry - Neurologic Neurologic: CNII-XII intact, moves all extremities Results - Labs CBC & Chem 7: 11/14/18 07:59 11/11/18 05:50 Labs: Laboratory Last Values WBC 19.8 K/mm3 (4.5-11.0) H 11/14/18 07:59 RBC 2.67 M/mm3 (3.65-5.03) L 11/14/18 07:59 Hgb 8.4 gm/dl (10.1-14.3) L 11/14/18 07:59 Hct 25.2 % (30.3-42.9) L 11/14/18 07:59 MCV 94 fl (79-97) 11/14/18 07:59 MCH 32 pg (28-32) 11/14/18 07:59 MCHC 34 % (30-34) 11/14/18 07:59 RDW 15.1 % (13.2-15.2) 11/14/18 07:59 Plt Count 297 K/mm3 (140-440) 11/14/18 07:59 Lymph % (Auto) Multi Sensor Operator 11/14/18 07:59 Campbell % (Auto) Multi Sensor Operator 11/14/18 07:59 Eos % (Auto) Multi Sensor Operator 11/14/18 07:59 Baso % (Auto) Multi Sensor Operator 11/14/18 07:59 Lymph # Multi Sensor Operator 11/14/18 07:59 Campbell # Multi Sensor Operator 11/14/18 07:59 Eos # Multi Sensor Operator 11/14/18 07:59 Baso # Multi Sensor Operator 11/14/18 07:59 Add Manual Diff Complete 11/14/18 07:59 Total Counted 100 11/14/18 07:59 Seg Neutrophils % Multi Sensor Operator 11/14/18 07:59 Seg Neuts % (Manual) 96.0 % (40.0-70.0) H 11/14/18 07:59 0 % 11/14/18 07:59 0 % (13.4-35.0) L 11/14/18 07:59 Reactive Lymphs % (Man) 0 % 11/14/18 07:59 4.0 % (0.0-7.3) 11/14/18 07:59 0 % (0.0-4.3) 11/14/18 07:59 0 % (0.0-1.8) 11/14/18 07:59 0 % 11/14/18 07:59 0 % 11/14/18 07:59 0 % 11/14/18 07:59 0 % 11/14/18 07:59 Nucleated RBC % Not Reportable 11/14/18 07:59 Seg Neutrophils # Multi Sensor Operator 11/14/18 07:59 Seg Neutrophils # Man 19.0 K/mm3 (1.8-7.7) H 11/14/18 07:59 Band Neutrophils # 0.0 K/mm3 11/14/18 07:59 0.0 K/mm3 (1.2-5.4) L 11/14/18 07:59 Abs React Lymphs (Man) 0.0 K/mm3 11/14/18 07:59 0.8 K/mm3 (0.0-0.8) 11/14/18 07:59 0.0 K/mm3 (0.0-0.4) 11/14/18 07:59 0.0 K/mm3 (0.0-0.1) 11/14/18 07:59 0.0 K/mm3 11/14/18 07:59 0.0 K/mm3 11/14/18 07:59 0.0 K/mm3 11/14/18 07:59 Blast Cells # 0.0 K/mm3 11/14/18 07:59 WBC Morphology Not Reportable 11/14/18 07:59 Hypersegmented Neuts Not Reportable 11/14/18 07:59 Hyposegmented Neuts Not Reportable 11/14/18 07:59 Hypogranular Neuts Not Reportable 11/14/18 07:59 Not Reportable 11/14/18 07:59 Not Reportable 11/14/18 07:59 Not Reportable 11/14/18 07:59 Not Reportable 11/14/18 07:59 Not Reportable 11/14/18 07:59 Not Reportable 11/14/18 07:59 Consistent w auto 11/14/18 07:59 Not Reportable 11/14/18 07:59 Plt Clumps, EDTA Not Reportable 11/14/18 07:59 Not Reportable 11/14/18 07:59 Not Reportable 11/14/18 07:59 Not Reportable 11/14/18 07:59 Plt Morphology Comment Not Reportable 11/14/18 07:59 RBC Morphology Normal 11/14/18 07:59 Dimorphic RBCs Not Reportable 11/14/18 07:59 Not Reportable 11/14/18 07:59 Not Reportable 11/14/18 07:59 Not Reportable 11/14/18 07:59 Not Reportable 11/14/18 07:59 Not Reportable 11/14/18 07:59 Not Reportable 11/14/18 07:59 Not Reportable 11/14/18 07:59 Not Reportable 11/14/18 07:59 Not Reportable 11/14/18 07:59 Not Reportable 11/14/18 07:59 Not Reportable 11/14/18 07:59 Not Reportable 11/14/18 07:59 Not Reportable 11/14/18 07:59 Not Reportable 11/14/18 07:59 Not Reportable 11/14/18 07:59 Not Reportable 11/14/18 07:59 Not Reportable 11/14/18 07:59 Not Reportable 11/14/18 07:59 Not Reportable 11/14/18 07:59 Acanthocytes (Spur) Not Reportable 11/14/18 07:59 Rouleaux Not Reportable 11/14/18 07:59 Not Reportable 11/14/18 07:59 Not Reportable 11/14/18 07:59 Not Reportable 11/14/18 07:59 Not Reportable 11/14/18 07:59 Hem Pathologist Commnt No 11/14/18 07:59 Heparin Anti-Xa, Unfract Negative (Negative) 10/30/18 13:58 POC ABG pH 7.470 (7.35-7.45) H 11/14/18 10:05 POC ABG pCO2 42.8 (35-45) 11/14/18 10:05 POC ABG pO2 83 (80-105) 11/14/18 10:05 POC ABG HCO3 31.2 (22-26 mml/L) 11/14/18 10:05 POC ABG Total CO2 32 (23-27mmol/L) 11/14/18 10:05 POC ABG O2 Sat 97 11/14/18 10:05 POC ABG Base Excess 7 ((-2) - (+3)mmol/L) 11/14/18 10:05 30 % 11/14/18 10:05 Sodium 142 mmol/L (137-145) 11/11/18 05:50 Potassium 3.5 mmol/L (3.6-5.0) L 11/11/18 05:50 Chloride 99.0 mmol/L (98-107) 11/11/18 05:50 Carbon Dioxide 34 mmol/L (22-30) H 11/11/18 05:50 13 mmol/L 11/11/18 05:50 BUN 47 mg/dL (7-17) H 11/11/18 05:50 0.5 mg/dL (0.7-1.2) L 11/11/18 05:50 Estimated GFR > 60 ml/min 11/11/18 05:50 94 % 11/11/18 05:50 Glucose 169 mg/dL (65-100) H 11/11/18 05:50 POC Glucose 210 (70-105) H 11/15/18 05:29 Lactic Acid 1.60 mmol/L (0.7-2.0) 10/26/18 15:03 Calcium 8.2 mg/dL (8.4-10.2) L 11/11/18 05:50 Phosphorus 2.80 mg/dL (2.5-4.5) 11/11/18 05:50 Magnesium 1.80 mg/dL (1.7-2.3) 11/11/18 05:50 Iron 31 ug/dL (37-170) L 11/14/18 03:28 TIBC 173 mcg/dL (250-450) L 11/14/18 03:28 510.3 ng/mL (13.0-400.0) H 11/14/18 03:28 0.30 mg/dL (0.1-1.2) 11/11/18 05:50 AST 26 units/L (5-40) 11/11/18 05:50 ALT 28 units/L (7-56) 11/11/18 05:50 142 units/L (35-129) H 11/11/18 05:50 NT-Pro-B Natriuret Pep 4507 pg/mL (0-900) H 11/07/18 04:55 4.4 g/dL (6.3-8.2) L 11/11/18 05:50 2.1 g/dL (3.9-5) L 11/11/18 05:50 0.9 % 11/11/18 05:50 Triglycerides 132 mg/dL (2-149) 11/01/18 06:40 10 units/L (13-60) L 10/22/18 15:54 See scanned result 10/30/18 13:58 TSH 3.150 mlU/mL (0.270-4.200) 10/31/18 17:00 Free T4 0.49 ng/dL (0.76-1.46) L 10/31/18 17:00 Dulce (Yellow) 10/22/18 19:10 Clear (Clear) 10/22/18 19:10 5.0 (5.0-7.0) 10/22/18 19:10 Ur Specific [place] 1.018 (1.003-1.030) 10/22/18 19:10 30 mg/dl mg/dL (Negative) 10/22/18 19:10 Neg mg/dL (Negative) 10/22/18 19:10 Tr mg/dL (Negative) 10/22/18 19:10 Neg (Negative) 10/22/18 19:10 Neg (Negative) 10/22/18 19:10 Neg (Negative) 10/22/18 19:10 < 2.0 mg/dL (<2.0) 10/22/18 19:10 Ur Leukocyte Esterase Neg (Negative) 10/22/18 19:10 1.0 /HPF (0.0-6.0) 10/22/18 19:10 3.0 /HPF (0.0-6.0) 10/22/18 19:10 Heparin-induced Plt Ab Negative (Negative) 10/30/18 13:58 UF Heparin High Dose 0 % Release 10/30/18 13:58 KIMO UFH Low Dose 0.1 0 % Release 10/30/18 13:58 KIMO UFH Low Dose 0.5 0 % Release 10/30/18 13:58 Active Medications - Current Medications Current Medications: Generic Name Dose Route Start Last Admin Trade Name Parveenq PRN Reason Stop Dose Admin Acetaminophen 650 mg 10/22/18 20:10 11/14/18 00:03 Tylenol PO 650 mg Q4H PRN Administration Pain MILD(1-3)/Fever >100.5/PORTER Albuterol 2.5 mg 10/22/18 20:14 11/05/18 16:35 Proventil IH 2.5 mg Q4HRT PRN Administration Shortness Of Breath Lipase/Protease/Amylase 1 each 11/05/18 10:13 Pancremaranda Simpson 10,500 Unit FEEDTUBE PRN PRN For Clogged Feeding Tube Arformoterol Tartrate 15 mcg 11/05/18 20:00 11/15/18 07:28 Brovana Nebu IH 15 mcg Q12HRT RICK Administration Budesonide 0.5 mg 10/23/18 08:00 11/15/18 07:28 Pulmicort IH 0.5 mg Q12HRT RICK Administration Dextrose 50 ml 10/26/18 23:40 10/27/18 00:20 D50w (25gm) Syringe IV 50 ml PRN PRN Administration Hypoglycemia Enoxaparin Sodium 40 mg 11/14/18 22:00 11/14/18 21:42 Lovenox SUB-Q 40 mg QDAY@2200 RICK Administration Furosemide 20 mg 11/13/18 18:00 11/15/18 06:05 Lasix IV 20 mg 0600,1800 RICK Administration Gabapentin 600 mg 11/12/18 10:00 11/15/18 06:05 Neurontin PO 600 mg Q8HR RICK Administration Hydralazine HCl 10 mg 10/22/18 21:41 11/07/18 00:04 Apresoline IV 10 mg Q4HR PRN Administration Blood Pressure Hydromorphone HCl 1 mg 11/12/18 09:55 11/15/18 08:40 Dilaudid IV 1 mg Q4H PRN Administration Pain , Severe (7-10) Hydrophilic Ointment 1 applic 11/07/18 09:14 Vaseline Lip Therapy TP Q2HR PRN Dry Lips Fluconazole 200 mls @ 100 mls/hr 11/14/18 10:00 11/15/18 10:06 Diflucan IV 100 mls/hr Q24HR RICK Administration Protocol Insulin Human Isoph/Insulin Regular 12 unit 11/10/18 22:00 11/15/18 10:06 Humulin 70/30 SUB-Q 12 unit BID RICK Administration Insulin Human Lispro 0 unit 10/29/18 12:00 11/15/18 06:05 Humalog SUB-Q 3 unit Q6HR RICK Administration Protocol Lorazepam 1 mg 11/06/18 11:00 11/15/18 10:16 Ativan IV 1 mg Q6H PRN Administration Anxiety Methylprednisolone Sodium Succinate 40 mg 11/13/18 14:00 11/15/18 06:05 Solu-Medrol IV 40 mg Q8H RICK Administration Metoprolol Tartrate 5 mg 11/13/18 13:00 11/15/18 08:42 Lopressor IV 5 mg Q6H RICK Administration Multi-Ingred Cream/Lotion/Oil/Oint 1 applic 11/07/18 09:14 Artificial Tears Ophth Oint OU Q4HR PRN Dry Eye(s) Ondansetron HCl 4 mg 10/24/18 10:05 10/25/18 17:26 Zofran IV 4 mg Q6H PRN Administration Nausea And Vomiting Oxycodone/Acetaminophen 1 tab 11/05/18 11:16 11/14/18 16:45 Percocet 5/325 PO 1 tab Q6H PRN Administration Pain, Moderate (4-6) Pantoprazole Sodium 40 mg 11/05/18 10:00 11/15/18 10:05 Protonix IV 40 mg DAILY RICK Administration Phenol 1 spray 10/28/18 10:16 Chloraseptic MM PRN PRN Sore Throat Promethazine HCl 25 mg 10/22/18 20:10 10/22/18 21:21 Phenergan MD 25 mg Q6H PRN Administration Nausea And Vomiting Quetiapine Fumarate 300 mg 11/12/18 10:00 11/15/18 10:17 Seroquel PO 300 mg DAILY RICK Administration Simple Syrup 15 ml 11/05/18 10:13 Simple Syrup FEEDTUBE PRN PRN Hypoglycemia Simple Syrup 30 ml 11/05/18 10:13 Simple Syrup FEEDTUBE PRN PRN Hypoglycemia Sodium Bicarbonate 325 mg 11/05/18 10:13 Sodium Bicarbonate FEEDTUBE PRN PRN For Clogged Feeding Tube Sodium Chloride 10 ml 10/22/18 22:00 11/15/18 10:17 Sodium Chloride Flush Syringe 10 Ml IV 10 ml BID RICK Administration Sodium Chloride 10 ml 10/22/18 20:10 11/09/18 14:29 Sodium Chloride Flush Syringe 10 Ml IV 10 ml PRN PRN Administration LINE FLUSH Nutrition/Malnutrition Assess - Dietary Evaluation Nutrition/Malnutrition Findings: Nutrition Notes Start: 10/23/18 17:03 Freq: Status: Active Protocol: Document 11/14/18 16:38 RM (Rec: 11/14/18 16:47 RM [email or web address]) Nutrition Notes Initial or Follow up Reassessment Other Pertinent Diagnosis Gastric peforation, bilat pneu Current Diet TF - Vital AF 1.2 at 45 ml/hr Labs/Tests Reviewed Pertinent Medications Lasix, Solu-medrol Height 5 ft 3 in Weight 63 kg [place] Body Weight (kg) 52.27 BMI 24.5 Subjective/Other Information Observed Vital 1.2 infusing at goal. Per nurse pt is tolerating TF and has rectal tube in place. Percent of energy/protein needs met: 83%/100% Burn Absent Trauma Absent #1 Nutrition Diagnosis Inadequate oral intake Diagnosis Progress(for reassessment Continues documentation) Is patient on ventilator? Yes Is Patient Ambulatory and/or Out of Bed No REE-([place]-confined to bed) 1337.112 Kcal/Kg value to use for calculation 25 Approximate Energy Requirements Using 1575 kcal/Kg Calculation Used for Recommendations [facility] Additional Notes Pro needs 1.2-2g/kg (based on UBW): 60-100g/day Fluid needs 1ml/kcal Nutrition Intervention Nutrition Support: Vital 1.2 at 45 ml/hr. Water flush of 70 ml q 4 hrs. Kcal 1,296 Protein (gm) 81 Fluid (mL) 876 Fiber (gm) 5 Goal #1 TF tolerance Goal #2 TF to continue to meet at least 75% energy and pro needs Follow-Up By: 11/19/18 Additional Comments F/U: TF tolerance
--- NOTE | 2018-11-15 15:18 | Hem/Onc Progress Note ---
Assessment and Plan 1. h/o Thrombocytopenia, likely medication, pts medical status related. better 2. History of colon surgery in the past, details not clear. 3. History of bowel issues. Seen by surgical team. - pSBO and contained gastric perforation 4. h/o TPN. 5. h/o Ayla, ID following. 6. Chronic obstructive pulmonary disease. 7. Hypertension. 8. History of lupus. 9. Aspiration pneumonia. 10. The patient was on ventilation. 11. Renal impairment. 11/15 pt on vent - trach - pulm following anemia - iv iron h/o b12 inj at home - monthly - will give same - Patient Problems (1) Thrombocytopenia Current Visit: Yes Status: Acute Subjective Date of service: 11/15/18 Principal diagnosis: anemia - h/o low plt Interval history: trach - feeling better Objective - Constitutional Vitals: Last Vital Signs Temp 98.6 F 11/15/18 12:00 Pulse 94 H 11/15/18 15:00 Resp 19 11/15/18 15:00 BP 122/40 11/15/18 15:00 Pulse Ox 100 11/15/18 15:00 Pain Intensity (0-10): denies any pain General appearance: no acute distress Performance status: 3-limited selfcare - EENT Eyes: EOM intact ENT: hearing intact, other (trach) Lymph node exam: negative cervical - Neck Neck: normal ROM - Respiratory Respiratory effort: Positive: normal Respiratory: bilateral: CTA (anteriorly) - Cardiovascular Heart Sounds: Present: S1 & S2 Extremities: normal temperature - Gastrointestinal General gastrointestinal: Present: soft, non-tender Rectal Exam: deferred - Genitourinary Female genitourinary: Present: deferred - Integumentary Integumentary: warm - Musculoskeletal Musculoskeletal: generalized weakness - Neurologic Neurologic: moves all extremities - Psychiatric Psychiatric: appropriate mood/affect - Labs Lab Results: Laboratory Results - last 24 hr 11/14/18 11/14/18 11/15/18 18:03 23:15 05:29 POC ABG pH POC ABG pCO2 POC ABG pO2 POC ABG HCO3 POC ABG Total CO2 POC ABG O2 Sat POC ABG Base Excess FiO2 POC Glucose 221 H 223 H 210 H 11/15/18 11/15/18 11:33 12:13 POC ABG pH 7.446 POC ABG pCO2 46.1 H POC ABG pO2 107 H POC ABG HCO3 31.8 POC ABG Total CO2 33 POC ABG O2 Sat 98 POC ABG Base Excess 8 FiO2 30 POC Glucose 199 H Medications & Allergies - Medications Allergies/Adverse Reactions: Allergies Sulfa (Sulfonamide Antibiotics) Allergy (Intermediate, Verified 10/22/18 16:30) Rash metoclopramide HCl [From Reglan] Allergy (Verified 10/22/18 16:30) Dizziness prochlorperazine [From Compazine] Allergy (Verified 10/22/18 16:30) NECK STIFFNESS Home Medications: Home Medications Medication Instructions Recorded Confirmed Last Taken Type Ondansetron 4 mg PO Q6HR PRN 12/05/16 10/22/18 10/29/17 History Propranolol HCl [Propranolol HCl 60 mg PO DAILY 12/05/16 10/22/18 10/30/17 22:00 History ER] QUEtiapine [SEROquel] 300 mg PO DAILY 12/05/16 10/22/18 10/30/17 History Lasix TAB 40 mg PO PRN PRN 12/07/16 10/22/18 10/24/17 History Percocet 10/325 mg 1 tab PO PRN PRN 12/07/16 10/22/18 10/30/17 History Albuterol Sulfate [Albuterol 0.63% 0.63 mg IH TID PRN 10/22/17 10/22/18 10/29/17 History NEBS] Active Medications: Generic Name Dose Route Start Last Admin Trade Name Freq PRN Reason Stop Dose Admin Acetaminophen 650 mg 10/22/18 20:10 11/14/18 00:03 Tylenol PO 650 mg Q4H PRN Administration Pain MILD(1-3)/Fever >100.5/PORTER Albuterol 2.5 mg 10/22/18 20:14 11/05/18 16:35 Proventil IH 2.5 mg Q4HRT PRN Administration Shortness Of Breath Lipase/Protease/Amylase 1 each 11/05/18 10:13 Pancremaranda Simpson 10,500 Unit FEEDTUBE PRN PRN For Clogged Feeding Tube Arformoterol Tartrate 15 mcg 11/05/18 20:00 11/15/18 07:28 Brovana Nebu IH 15 mcg Q12HRT RICK Administration Budesonide 0.5 mg 10/23/18 08:00 11/15/18 07:28 Pulmicort IH 0.5 mg Q12HRT RICK Administration Dextrose 50 ml 10/26/18 23:40 10/27/18 00:20 D50w (25gm) Syringe IV 50 ml PRN PRN Administration Hypoglycemia Enoxaparin Sodium 40 mg 11/14/18 22:00 11/14/18 21:42 Lovenox SUB-Q 40 mg QDAY@2200 RICK Administration Furosemide 20 mg 11/13/18 18:00 11/15/18 06:05 Lasix IV 20 mg 0600,1800 RICK Administration Gabapentin 600 mg 11/12/18 10:00 11/15/18 14:11 Neurontin PO 600 mg Q8HR RICK Administration Hydralazine HCl 10 mg 10/22/18 21:41 11/07/18 00:04 Apresoline IV 10 mg Q4HR PRN Administration Blood Pressure Hydromorphone HCl 1 mg 11/12/18 09:55 11/15/18 08:40 Dilaudid IV 1 mg Q4H PRN Administration Pain , Severe (7-10) Hydrophilic Ointment 1 applic 11/07/18 09:14 Vaseline Lip Therapy TP Q2HR PRN Dry Lips Fluconazole 200 mls @ 100 mls/hr 11/14/18 10:00 11/15/18 10:06 Diflucan IV 100 mls/hr Q24HR [facility] Administration Protocol Insulin Human Isoph/Insulin Regular 12 unit 11/10/18 22:00 11/15/18 10:06 Humulin 70/30 SUB-Q 12 unit BID RICK Administration Insulin Human Lispro 0 unit 10/29/18 12:00 11/15/18 12:30 Humalog SUB-Q 2 unit Q6HR [facility] Administration Protocol Lorazepam 1 mg 11/06/18 11:00 11/15/18 10:16 Ativan IV 1 mg Q6H PRN Administration Anxiety Methylprednisolone Sodium Succinate 40 mg 11/13/18 14:00 11/15/18 14:11 Solu-Medrol IV 40 mg Q8H RICK Administration Metoprolol Tartrate 5 mg 11/13/18 13:00 11/15/18 13:45 Lopressor IV 5 mg Q6H RICK Administration Multi-Ingred Cream/Lotion/Oil/Oint 1 applic 11/07/18 09:14 Artificial Tears Ophth Oint OU Q4HR PRN Dry Eye(s) Ondansetron HCl 4 mg 10/24/18 10:05 10/25/18 17:26 Zofran IV 4 mg Q6H PRN Administration Nausea And Vomiting Oxycodone/Acetaminophen 1 tab 11/05/18 11:16 11/14/18 16:45 Percocet 5/325 PO 1 tab Q6H PRN Administration Pain, Moderate (4-6) Pantoprazole Sodium 40 mg 11/05/18 10:00 11/15/18 10:05 Protonix IV 40 mg DAILY RICK Administration Phenol 1 spray 10/28/18 10:16 Chloraseptic MM PRN PRN Sore Throat Promethazine HCl 25 mg 10/22/18 20:10 10/22/18 21:21 Phenergan [place] 25 mg Q6H PRN Administration Nausea And Vomiting Quetiapine Fumarate 300 mg 11/12/18 10:00 11/15/18 10:17 Seroquel PO 300 mg DAILY RICK Administration Simple Syrup 15 ml 11/05/18 10:13 Simple Syrup FEEDTUBE PRN PRN Hypoglycemia Simple Syrup 30 ml 11/05/18 10:13 Simple Syrup FEEDTUBE PRN PRN Hypoglycemia Sodium Bicarbonate 325 mg 11/05/18 10:13 Sodium Bicarbonate FEEDTUBE PRN PRN For Clogged Feeding Tube Sodium Chloride 10 ml 10/22/18 22:00 11/15/18 10:17 Sodium Chloride Flush Syringe 10 Ml IV 10 ml BID RICK Administration Sodium Chloride 10 ml 10/22/18 20:10 11/09/18 14:29 Sodium Chloride Flush Syringe 10 Ml IV 10 ml PRN PRN Administration LINE FLUSH
[2018-11-15] MEDS ORDERED: FERRLECIT 125 MG in NACL 0.9% 100 ML IV ONE (16:00)
[2018-11-15 16:35] LABS: BUN/Creatinine Ratio 72; Blood Urea Nitrogen 36 mg/dL (7-17); Calcium 7.5 mg/dL (8.4-10.2); Hemolysis Index 9
[2018-11-15] MEDS ORDERED: VITAMIN B-12 SUB-Q ONE (17:00)
[2018-11-15] MEDS: LOVENOX SUB-Q SCH (23:20)
[2018-11-15] MEDS: TYLENOL PO PRN (23:40)
[2018-11-16] MEDS: LOPRESSOR IV SCH ×4 (00:08→19:00)
[2018-11-16] MEDS: NEURONTIN PO SCH ×3 (05:42→22:32)
[2018-11-16] MEDS: SOLU-Medrol IV SCH ×3 (05:42→22:32)
[2018-11-16] MEDS: LASIX IV SCH ×2 (05:42→18:00)
[2018-11-16] MEDS: HumaLOG SUB-Q SCH ×3 (05:51→18:00)
[2018-11-16] MEDS: BROVANA NEBU IH SCH ×2 (07:58→20:11)
[2018-11-16] MEDS: PULMICORT IH SCH ×2 (07:59→20:11)
--- NOTE | 2018-11-16 08:58 | Progress Note ---
Assessment and Plan ARF ,failure to wean ,prolonged vent support. Patient awake this morning without pain medications/sedatives. Bedside triage showed rapid shallow breathing index of 50-80, without pressure support, good vital signs, even after prolonged bedside monitoring Sepsis/Fungemia. Complaining antibiotics, suspected secondary to PICC line Bilateral upper lobe pneumonia. Completed antibiotics Bilateral pleural effusions with left lower lung atelectasis. On Lasix , good diuresis.f/u CXR with some improvement? Partial bowel obstruction, perforation. Improved Diarrhea. No fever. On oral nutrition. Improving Compensated respiratory acidosis improved Chronic pain medications, anti-psychotic therapy. Progressively increased demand for narcotics in the context of hypercapnic failure, chronic Thrombocytopenia. Improved PAT, tachy-bradycardia episodes. Controlled COPD. controlled, minimal congestion Chronic pain/Narcotic dependent Hypokalemia Rec Initiated T piece trial, monitor during the day. We'll try to avoid Ativan and Dilaudid during SBT. Okay to use Percocet every 6 hours as needed Discussed w/ respiratory therapy to continue mechanical vent at nighttime, so that the patient can sleep and use her pain meds. SBT with T piece again in the morning Potassium replacement Hold Ativan and Dilaudid during daytime for SBT today. Progress as tolerated Continue nebulizer therapy Long-term placement planning Physical therapy Discussed with patient,spouse and staff in detail. All questions answered. Critical care time was 31 minutes of [id number] evaluation and coordination of care Subjective Date of service: 11/16/18 Principal diagnosis: anemia Interval history: No events overnight, on vent Objective Vital Signs - 12hr 11/15/18 11/15/18 11/15/18 21:00 21:30 22:00 Temperature Pulse Rate 88 83 81 Pulse Rate [ Anterior Bilateral Throughout] Pulse Rate [ From Monitor] Respiratory 16 16 16 Rate Respiratory Rate [Anterior Bilateral Throughout] Blood Pressure 100/34 102/36 97/37 O2 Sat by Pulse 98 98 98 Oximetry O2 Sat by Pulse Oximetry [ Assessment] 11/15/18 11/15/18 11/15/18 22:30 23:00 23:30 Temperature Pulse Rate 79 83 92 H Pulse Rate [ Anterior Bilateral Throughout] Pulse Rate [ From Monitor] Respiratory 16 16 18 Rate Respiratory Rate [Anterior Bilateral Throughout] Blood Pressure 105/34 102/33 115/42 O2 Sat by Pulse 98 99 100 Oximetry O2 Sat by Pulse Oximetry [ Assessment] 11/16/18 11/16/18 11/16/18 00:00 00:08 00:10 Temperature 98.8 F Pulse Rate 94 H 103 H 92 H Pulse Rate [ Anterior Bilateral Throughout] Pulse Rate [ From Monitor] Respiratory 19 Rate Respiratory Rate [Anterior Bilateral Throughout] Blood Pressure 114/43 114/43 112/43 O2 Sat by Pulse 100 99 Oximetry O2 Sat by Pulse Oximetry [ Assessment] 11/16/18 11/16/18 11/16/18 00:30 01:00 01:30 Temperature Pulse Rate 91 H 89 93 H Pulse Rate [ Anterior Bilateral Throughout] Pulse Rate [ From Monitor] Respiratory 22 19 20 Rate Respiratory Rate [Anterior Bilateral Throughout] Blood Pressure 112/43 112/36 110/37 O2 Sat by Pulse 99 99 98 Oximetry O2 Sat by Pulse Oximetry [ Assessment] 11/16/18 11/16/18 11/16/18 02:00 02:30 03:00 Temperature Pulse Rate 96 H 96 H 106 H Pulse Rate [ Anterior Bilateral Throughout] Pulse Rate [ From Monitor] Respiratory 22 20 17 Rate Respiratory Rate [Anterior Bilateral Throughout] Blood Pressure 112/39 105/36 116/46 O2 Sat by Pulse 97 97 97 Oximetry O2 Sat by Pulse 99 Oximetry [ Assessment] 11/16/18 11/16/18 11/16/18 03:30 04:00 04:15 Temperature 99.3 F Pulse Rate 95 H 103 H 94 H Pulse Rate [ Anterior Bilateral Throughout] Pulse Rate [ From Monitor] Respiratory 20 20 Rate Respiratory Rate [Anterior Bilateral Throughout] Blood Pressure 114/39 103/43 112/33 O2 Sat by Pulse 97 98 98 Oximetry O2 Sat by Pulse Oximetry [ Assessment] 11/16/18 11/16/18 11/16/18 04:30 05:00 05:30 Temperature Pulse Rate 95 H 101 H 102 H Pulse Rate [ Anterior Bilateral Throughout] Pulse Rate [ From Monitor] Respiratory 20 21 23 Rate Respiratory Rate [Anterior Bilateral Throughout] Blood Pressure 112/33 113/51 118/41 O2 Sat by Pulse 98 98 98 Oximetry O2 Sat by Pulse Oximetry [ Assessment] 11/16/18 11/16/18 11/16/18 06:00 06:30 07:00 Temperature Pulse Rate 102 H 91 H 99 H Pulse Rate [ Anterior Bilateral Throughout] Pulse Rate [ From Monitor] Respiratory 21 21 21 Rate Respiratory Rate [Anterior Bilateral Throughout] Blood Pressure 112/45 102/34 118/34 O2 Sat by Pulse 98 98 97 Oximetry O2 Sat by Pulse Oximetry [ Assessment] 11/16/18 11/16/18 11/16/18 07:30 07:59 08:00 Temperature 98.5 F Pulse Rate 107 H 95 H Pulse Rate [ 95 H Anterior Bilateral Throughout] Pulse Rate [ 97 H From Monitor] Respiratory 20 20 Rate Respiratory 21 Rate [Anterior Bilateral Throughout] Blood Pressure 122/42 104/39 O2 Sat by Pulse 98 97 Oximetry O2 Sat by Pulse 98 Oximetry [ Assessment] Constitutional: alert Eyes: non-icteric ENT: other (trach in position) Neck: supple, no JVD Effort: mildly labored Ascultation: Bilateral: clear, diminished breath sounds, rhonchi (sporadic) Percussion: Bilateral: not dull Cardiovascular: regular rate and rhythm Gastrointestinal: hypoactive bowel sounds, non-tender, non-distended, other Integumentary: normal Extremities: no edema Neurologic: normal mental status, non-focal exam Psychiatric: anxious CBC and BMP: 11/14/18 07:59 11/15/18 14:32 ABG, PT/INR, D-dimer: ABG POC ABG pH 7.446 (7.35-7.45) 11/15/18 11:33 POC ABG pCO2 46.1 (35-45) H 11/15/18 11:33 POC ABG pO2 107 (80-105) H 11/15/18 11:33 POC ABG HCO3 31.8 (22-26 mml/L) 11/15/18 11:33 POC ABG Total CO2 33 (23-27mmol/L) 11/15/18 11:33 POC ABG O2 Sat 98 11/15/18 11:33 Abnormal lab findings: Abnormal Labs 10/22/18 10/22/18 10/22/18 15:31 15:54 15:54 WBC 11.5 H RBC 5.35 H Hgb 17.4 H Hct 50.3 H MCV MCH 33 H MCHC 35 H Plt Count Lymph % (Auto) 12.6 L [place] % (Auto) 14.8 H Lymph # [place] # 1.7 H Seg Neutrophils % 72.5 H Seg Neuts % (Manual) Lymphocytes % (Manual) Seg Neutrophils # 8.3 H Seg Neutrophils # Man Lymphocytes # (Manual) POC ABG pH POC ABG pCO2 POC ABG pO2 Sodium 134 L Potassium Chloride 88.1 L Carbon Dioxide BUN 51 H Creatinine 2.1 H Glucose 166 H POC Glucose Calcium Phosphorus Magnesium Iron TIBC Ferritin Alkaline Phosphatase NT-Pro-B Natriuret Pep Total Protein Albumin 3.4 L Lipase 10 L Free T4 10/23/18 10/23/18 10/23/18 04:32 04:32 10:53 WBC RBC Hgb Hct MCV MCH MCHC Plt Count Lymph % (Auto) 10.2 L [place] % (Auto) 14.7 H Lymph # 0.7 L [place] # 1.0 H Seg Neutrophils % 74.9 H Seg Neuts % (Manual) Lymphocytes % (Manual) Seg Neutrophils # Seg Neutrophils # Man Lymphocytes # (Manual) POC ABG pH POC ABG pCO2 POC ABG pO2 Sodium Potassium 3.1 L D 3.5 L Chloride Carbon Dioxide BUN 41 H 37 H Creatinine Glucose 111 H 110 H POC Glucose Calcium 8.1 L 8.1 L Phosphorus Magnesium Iron TIBC Ferritin Alkaline Phosphatase NT-Pro-B Natriuret Pep Total Protein Albumin Lipase Free T4 10/24/18 10/24/18 10/25/18 05:34 05:34 04:51 WBC RBC Hgb Hct MCV MCH MCHC Plt Count Lymph % (Auto) [place] % (Auto) Lymph # [place] # Seg Neutrophils % Seg Neuts % (Manual) Lymphocytes % (Manual) Seg Neutrophils # Seg Neutrophils # Man Lymphocytes # (Manual) POC ABG pH POC ABG pCO2 POC ABG pO2 Sodium Potassium 3.2 L 3.1 L Chloride 109.8 H 114.2 H Carbon Dioxide 17 L D BUN 21 H Creatinine Glucose 134 H 171 H POC Glucose Calcium 7.7 L 7.0 L Phosphorus 0.80 L* Magnesium Iron TIBC Ferritin Alkaline Phosphatase NT-Pro-B Natriuret Pep Total Protein Albumin Lipase Free T4 10/25/18 10/26/18 10/26/18 06:07 02:58 04:57 WBC RBC Hgb Hct MCV 99 H MCH 33 H MCHC Plt Count Lymph % (Auto) [place] % (Auto) Lymph # [place] # Seg Neutrophils % Seg Neuts % (Manual) Lymphocytes % (Manual) Seg Neutrophils # Seg Neutrophils # Man Lymphocytes # (Manual) POC ABG pH 7.090 L 7.320 L POC ABG pCO2 65.0 H 32.8 L POC ABG pO2 76 L Sodium Potassium Chloride Carbon Dioxide BUN Creatinine Glucose POC Glucose Calcium Phosphorus Magnesium Iron TIBC Ferritin Alkaline Phosphatase NT-Pro-B Natriuret Pep Total Protein Albumin Lipase Free T4 10/26/18 10/26/18 10/26/18 06:03 06:03 11:52 WBC 23.8 H RBC Hgb 15.4 H Hct 46.1 H D MCV MCH MCHC Plt Count Lymph % (Auto) [place] % (Auto) Lymph # [place] # Seg Neutrophils % Seg Neuts % (Manual) Lymphocytes % (Manual) Seg Neutrophils # Seg Neutrophils # Man Lymphocytes # (Manual) POC ABG pH POC ABG pCO2 POC ABG pO2 Sodium Potassium Chloride 109.5 H Carbon Dioxide 18 L BUN Creatinine Glucose 128 H POC Glucose 117 H Calcium 8.3 L D Phosphorus Magnesium Iron TIBC Ferritin Alkaline Phosphatase NT-Pro-B Natriuret Pep Total Protein Albumin Lipase Free T4 10/26/18 10/26/18 10/26/18 13:54 17:10 17:32 WBC RBC Hgb Hct MCV MCH MCHC Plt Count Lymph % (Auto) [place] % (Auto) Lymph # [place] # Seg Neutrophils % Seg Neuts % (Manual) Lymphocytes % (Manual) Seg Neutrophils # Seg Neutrophils # Man Lymphocytes # (Manual) POC ABG pH 7.215 L POC ABG pCO2 31.8 L POC ABG pO2 69 L 204 H Sodium Potassium 3.0 L D Chloride 114.5 H Carbon Dioxide 21 L BUN Creatinine Glucose POC Glucose Calcium 7.6 L Phosphorus Magnesium 1.40 L Iron TIBC Ferritin Alkaline Phosphatase NT-Pro-B Natriuret Pep Total Protein Albumin Lipase Free T4 10/26/18 10/27/18 10/27/18 23:13 00:40 01:09 WBC RBC Hgb Hct MCV MCH MCHC Plt Count Lymph % (Auto) [place] % (Auto) Lymph # [place] # Seg Neutrophils % Seg Neuts % (Manual) Lymphocytes % (Manual) Seg Neutrophils # Seg Neutrophils # Man Lymphocytes # (Manual) POC ABG pH POC ABG pCO2 POC ABG pO2 Sodium Potassium 3.4 L Chloride 115.0 H Carbon Dioxide 14 L D BUN Creatinine Glucose 228 H POC Glucose 48 L 264 H Calcium 7.1 L Phosphorus Magnesium Iron TIBC Ferritin Alkaline Phosphatase NT-Pro-B Natriuret Pep Total Protein Albumin Lipase Free T4 10/27/18 10/27/18 10/27/18 05:00 05:00 05:16 WBC 22.5 H RBC Hgb 14.7 H Hct 44.4 H MCV MCH MCHC Plt Count Lymph % (Auto) [place] % (Auto) Lymph # [place] # Seg Neutrophils % Seg Neuts % (Manual) Lymphocytes % (Manual) Seg Neutrophils # Seg Neutrophils # Man Lymphocytes # (Manual) POC ABG pH 7.304 L POC ABG pCO2 POC ABG pO2 116 H Sodium Potassium Chloride 118.4 H Carbon Dioxide 16 L BUN Creatinine Glucose 123 H POC Glucose Calcium 7.7 L Phosphorus Magnesium 2.60 H Iron TIBC Ferritin Alkaline Phosphatase NT-Pro-B Natriuret Pep Total Protein Albumin Lipase Free T4 10/28/18 10/28/18 10/28/18 04:25 04:25 15:37 WBC 23.5 H RBC Hgb Hct MCV MCH MCHC Plt Count Lymph % (Auto) [place] % (Auto) Lymph # [place] # Seg Neutrophils % Seg Neuts % (Manual) Lymphocytes % (Manual) Seg Neutrophils # Seg Neutrophils # Man Lymphocytes # (Manual) POC ABG pH POC ABG pCO2 POC ABG pO2 Sodium 147 H Potassium Chloride 116.9 H Carbon Dioxide 16 L BUN 23 H Creatinine Glucose POC Glucose 114 H Calcium 8.0 L Phosphorus Magnesium Iron TIBC Ferritin Alkaline Phosphatase NT-Pro-B Natriuret Pep Total Protein Albumin Lipase Free T4 10/28/18 10/28/18 10/28/18 20:33 22:07 23:31 WBC RBC Hgb Hct MCV MCH MCHC Plt Count Lymph % (Auto) [place] % (Auto) Lymph # [place] # Seg Neutrophils % Seg Neuts % (Manual) Lymphocytes % (Manual) Seg Neutrophils # Seg Neutrophils # Man Lymphocytes # (Manual) POC ABG pH 7.202 L 7.235 L POC ABG pCO2 POC ABG pO2 71 L Sodium Potassium Chloride Carbon Dioxide BUN Creatinine Glucose POC Glucose 207 H Calcium Phosphorus Magnesium Iron TIBC Ferritin Alkaline Phosphatase NT-Pro-B Natriuret Pep Total Protein Albumin Lipase Free T4 10/29/18 10/29/18 10/29/18 04:30 04:30 05:26 WBC 21.1 H RBC Hgb Hct MCV MCH MCHC Plt Count Lymph % (Auto) [place] % (Auto) Lymph # [place] # Seg Neutrophils % Seg Neuts % (Manual) 97.0 H Lymphocytes % (Manual) 3.0 L Seg Neutrophils # Seg Neutrophils # Man 20.5 H Lymphocytes # (Manual) 0.6 L POC ABG pH 7.305 L POC ABG pCO2 30.5 L POC ABG pO2 75 L Sodium 147 H Potassium 3.5 L Chloride 120.0 H Carbon Dioxide 17 L BUN 30 H Creatinine Glucose 246 H POC Glucose Calcium 7.9 L Phosphorus Magnesium Iron TIBC Ferritin Alkaline Phosphatase NT-Pro-B Natriuret Pep Total Protein Albumin Lipase Free T4 10/29/18 10/29/18 10/29/18 05:36 11:39 18:00 WBC RBC Hgb Hct MCV MCH MCHC Plt Count Lymph % (Auto) [place] % (Auto) Lymph # [place] # Seg Neutrophils % Seg Neuts % (Manual) Lymphocytes % (Manual) Seg Neutrophils # Seg Neutrophils # Man Lymphocytes # (Manual) POC ABG pH POC ABG pCO2 POC ABG pO2 Sodium Potassium Chloride Carbon Dioxide BUN Creatinine Glucose POC Glucose 204 H 224 H 221 H Calcium Phosphorus Magnesium Iron TIBC Ferritin Alkaline Phosphatase NT-Pro-B Natriuret Pep Total Protein Albumin Lipase Free T4 10/29/18 10/30/18 10/30/18 23:17 05:00 05:00 WBC 21.4 H RBC Hgb Hct MCV MCH MCHC Plt Count 134 L Lymph % (Auto) [place] % (Auto) Lymph # [place] # Seg Neutrophils % Seg Neuts % (Manual) 97.0 H Lymphocytes % (Manual) 3.0 L Seg Neutrophils # Seg Neutrophils # Man 20.8 H Lymphocytes # (Manual) 0.6 L POC ABG pH POC ABG pCO2 POC ABG pO2 Sodium 148 H Potassium 3.1 L Chloride 120.3 H Carbon Dioxide 18 L BUN 31 H Creatinine Glucose 205 H POC Glucose 181 H Calcium 8.0 L Phosphorus Magnesium Iron TIBC Ferritin Alkaline Phosphatase NT-Pro-B Natriuret Pep Total Protein Albumin Lipase Free T4 10/30/18 10/30/18 10/30/18 05:14 05:25 05:26 WBC RBC Hgb Hct MCV MCH MCHC Plt Count Lymph % (Auto) [place] % (Auto) Lymph # [place] # Seg Neutrophils % Seg Neuts % (Manual) Lymphocytes % (Manual) Seg Neutrophils # Seg Neutrophils # Man Lymphocytes # (Manual) POC ABG pH 7.296 L 7.245 L POC ABG pCO2 31.1 L POC ABG pO2 54 L 59 L Sodium Potassium Chloride Carbon Dioxide BUN Creatinine Glucose POC Glucose 199 H Calcium Phosphorus Magnesium Iron TIBC Ferritin Alkaline Phosphatase NT-Pro-B Natriuret Pep Total Protein Albumin Lipase Free T4 10/30/18 10/30/18 10/31/18 13:23 18:25 00:22 WBC RBC Hgb Hct MCV MCH MCHC Plt Count Lymph % (Auto) [place] % (Auto) Lymph # [place] # Seg Neutrophils % Seg Neuts % (Manual) Lymphocytes % (Manual) Seg Neutrophils # Seg Neutrophils # Man Lymphocytes # (Manual) POC ABG pH POC ABG pCO2 POC ABG pO2 Sodium Potassium Chloride Carbon Dioxide BUN Creatinine Glucose POC Glucose 146 H 158 H 162 H Calcium Phosphorus Magnesium Iron TIBC Ferritin Alkaline Phosphatase NT-Pro-B Natriuret Pep Total Protein Albumin Lipase Free T4 10/31/18 10/31/18 10/31/18 04:39 05:14 07:05 WBC RBC Hgb Hct MCV MCH MCHC Plt Count Lymph % (Auto) [place] % (Auto) Lymph # [place] # Seg Neutrophils % Seg Neuts % (Manual) Lymphocytes % (Manual) Seg Neutrophils # Seg Neutrophils # Man Lymphocytes # (Manual) POC ABG pH 7.238 L POC ABG pCO2 POC ABG pO2 Sodium Potassium Chloride 115.8 H Carbon Dioxide 18 L BUN 39 H Creatinine 1.3 H Glucose 167 H POC Glucose 145 H Calcium 7.5 L Phosphorus 1.80 L Magnesium Iron TIBC Ferritin Alkaline Phosphatase NT-Pro-B Natriuret Pep Total Protein Albumin Lipase Free T4 10/31/18 10/31/18 10/31/18 10:43 12:03 17:00 WBC RBC Hgb Hct MCV MCH MCHC Plt Count Lymph % (Auto) [place] % (Auto) Lymph # [place] # Seg Neutrophils % Seg Neuts % (Manual) Lymphocytes % (Manual) Seg Neutrophils # Seg Neutrophils # Man Lymphocytes # (Manual) POC ABG pH 7.304 L POC ABG pCO2 33.3 L POC ABG pO2 Sodium Potassium Chloride Carbon Dioxide BUN Creatinine Glucose POC Glucose 159 H Calcium Phosphorus Magnesium Iron TIBC Ferritin Alkaline Phosphatase NT-Pro-B Natriuret Pep Total Protein Albumin Lipase Free T4 0.49 L 10/31/18 11/01/18 11/01/18 17:00 00:44 05:27 WBC RBC Hgb Hct MCV MCH MCHC Plt Count Lymph % (Auto) [place] % (Auto) Lymph # [place] # Seg Neutrophils % Seg Neuts % (Manual) Lymphocytes % (Manual) Seg Neutrophils # Seg Neutrophils # Man Lymphocytes # (Manual) POC ABG pH 7.248 L POC ABG pCO2 34.8 L POC ABG pO2 135 H Sodium Potassium Chloride Carbon Dioxide BUN Creatinine Glucose POC Glucose 127 H 118 H Calcium Phosphorus Magnesium Iron TIBC Ferritin Alkaline Phosphatase NT-Pro-B Natriuret Pep Total Protein Albumin Lipase Free T4 11/01/18 11/01/18 11/01/18 06:40 06:40 06:53 WBC 18.9 H RBC 3.63 L Hgb Hct MCV MCH MCHC Plt Count 64 L Lymph % (Auto) [place] % (Auto) Lymph # [place] # Seg Neutrophils % Seg Neuts % (Manual) 98.0 H Lymphocytes % (Manual) 1.0 L Seg Neutrophils # Seg Neutrophils # Man 18.5 H Lymphocytes # (Manual) 0.2 L POC ABG pH POC ABG pCO2 POC ABG pO2 Sodium Potassium 3.5 L Chloride 114.2 H Carbon Dioxide 17 L BUN 49 H Creatinine Glucose 107 H POC Glucose 127 H Calcium 7.3 L Phosphorus Magnesium 1.60 L Iron TIBC Ferritin Alkaline Phosphatase NT-Pro-B Natriuret Pep Total Protein Albumin Lipase Free T4 11/01/18 11/01/18 11/01/18 11:49 13:13 17:24 WBC RBC Hgb Hct MCV MCH MCHC Plt Count Lymph % (Auto) [place] % (Auto) Lymph # [place] # Seg Neutrophils % Seg Neuts % (Manual) Lymphocytes % (Manual) Seg Neutrophils # Seg Neutrophils # Man Lymphocytes # (Manual) POC ABG pH POC ABG pCO2 POC ABG pO2 182 H Sodium Potassium Chloride Carbon Dioxide BUN Creatinine Glucose POC Glucose 134 H 111 H Calcium Phosphorus Magnesium Iron TIBC Ferritin Alkaline Phosphatase NT-Pro-B Natriuret Pep Total Protein Albumin Lipase Free T4 11/01/18 11/02/18 11/02/18 23:07 04:32 05:00 WBC RBC Hgb Hct MCV MCH MCHC Plt Count Lymph % (Auto) [place] % (Auto) Lymph # [place] # Seg Neutrophils % Seg Neuts % (Manual) Lymphocytes % (Manual) Seg Neutrophils # Seg Neutrophils # Man Lymphocytes # (Manual) POC ABG pH 7.244 L POC ABG pCO2 33.2 L POC ABG pO2 123 H Sodium Potassium 3.0 L Chloride 114.1 H Carbon Dioxide 15 L BUN 47 H Creatinine Glucose 127 H POC Glucose 123 H Calcium 7.7 L Phosphorus Magnesium Iron TIBC Ferritin Alkaline Phosphatase NT-Pro-B Natriuret Pep Total Protein Albumin Lipase Free T4 11/02/18 11/02/18 11/02/18 05:00 05:29 11:27 WBC RBC Hgb Hct MCV MCH MCHC Plt Count Lymph % (Auto) [place] % (Auto) Lymph # [place] # Seg Neutrophils % Seg Neuts % (Manual) Lymphocytes % (Manual) Seg Neutrophils # Seg Neutrophils # Man Lymphocytes # (Manual) POC ABG pH POC ABG pCO2 POC ABG pO2 Sodium Potassium Chloride Carbon Dioxide BUN Creatinine Glucose POC Glucose 118 H 137 H Calcium Phosphorus Magnesium 1.60 L Iron TIBC Ferritin Alkaline Phosphatase NT-Pro-B Natriuret Pep Total Protein Albumin Lipase Free T4 11/02/18 11/02/18 11/03/18 12:53 23:35 04:14 WBC RBC Hgb Hct MCV MCH MCHC Plt Count Lymph % (Auto) [place] % (Auto) Lymph # [place] # Seg Neutrophils % Seg Neuts % (Manual) Lymphocytes % (Manual) Seg Neutrophils # Seg Neutrophils # Man Lymphocytes # (Manual) POC ABG pH POC ABG pCO2 30.3 L POC ABG pO2 134 H 129 H Sodium Potassium Chloride Carbon Dioxide BUN Creatinine Glucose POC Glucose 115 H Calcium Phosphorus Magnesium Iron TIBC Ferritin Alkaline Phosphatase NT-Pro-B Natriuret Pep Total Protein Albumin Lipase Free T4 11/03/18 11/03/18 11/03/18 05:34 11:30 11:30 WBC 16.4 H RBC 3.50 L Hgb Hct MCV MCH MCHC Plt Count 136 L D Lymph % (Auto) [place] % (Auto) Lymph # [place] # Seg Neutrophils % Seg Neuts % (Manual) 97.0 H Lymphocytes % (Manual) 2.0 L Seg Neutrophils # Seg Neutrophils # Man 15.9 H Lymphocytes # (Manual) 0.3 L POC ABG pH POC ABG pCO2 POC ABG pO2 Sodium Potassium 3.1 L Chloride 110.4 H Carbon Dioxide 17 L BUN 41 H Creatinine Glucose 129 H POC Glucose 116 H Calcium 7.7 L Phosphorus Magnesium 1.60 L Iron TIBC Ferritin Alkaline Phosphatase NT-Pro-B Natriuret Pep Total Protein 4.2 L Albumin 1.2 L Lipase Free T4 11/03/18 11/03/18 11/03/18 12:01 17:35 21:37 WBC RBC Hgb Hct MCV MCH MCHC Plt Count Lymph % (Auto) [place] % (Auto) Lymph # [place] # Seg Neutrophils % Seg Neuts % (Manual) Lymphocytes % (Manual) Seg Neutrophils # Seg Neutrophils # Man Lymphocytes # (Manual) POC ABG pH POC ABG pCO2 POC ABG pO2 Sodium Potassium Chloride Carbon Dioxide BUN Creatinine Glucose POC Glucose 132 H 132 H 126 H Calcium Phosphorus Magnesium Iron TIBC Ferritin Alkaline Phosphatase NT-Pro-B Natriuret Pep Total Protein Albumin Lipase Free T4 11/03/18 11/04/18 11/04/18 23:30 05:14 05:15 WBC RBC Hgb Hct MCV MCH MCHC Plt Count Lymph % (Auto) [place] % (Auto) Lymph # [place] # Seg Neutrophils % Seg Neuts % (Manual) Lymphocytes % (Manual) Seg Neutrophils # Seg Neutrophils # Man Lymphocytes # (Manual) POC ABG pH POC ABG pCO2 30.9 L POC ABG pO2 192 H Sodium Potassium Chloride Carbon Dioxide BUN Creatinine Glucose POC Glucose 115 H 123 H Calcium Phosphorus Magnesium Iron TIBC Ferritin Alkaline Phosphatase NT-Pro-B Natriuret Pep Total Protein Albumin Lipase Free T4 11/04/18 11/04/18 11/04/18 09:39 09:39 11:43 WBC 15.2 H RBC 3.18 L Hgb Hct 29.9 L MCV MCH MCHC Plt Count Lymph % (Auto) [place] % (Auto) Lymph # [place] # Seg Neutrophils % Seg Neuts % (Manual) 98.0 H Lymphocytes % (Manual) 1.0 L Seg Neutrophils # Seg Neutrophils # Man 14.9 H Lymphocytes # (Manual) 0.2 L POC ABG pH POC ABG pCO2 POC ABG pO2 Sodium 135 L D Potassium Chloride 109.5 H Carbon Dioxide 16 L BUN 46 H Creatinine Glucose 136 H POC Glucose 138 H Calcium 8.0 L Phosphorus Magnesium Iron TIBC Ferritin Alkaline Phosphatase NT-Pro-B Natriuret Pep Total Protein Albumin Lipase Free T4 11/04/18 11/04/18 11/05/18 17:31 23:42 05:23 WBC RBC Hgb Hct MCV MCH MCHC Plt Count Lymph % (Auto) [place] % (Auto) Lymph # [place] # Seg Neutrophils % Seg Neuts % (Manual) Lymphocytes % (Manual) Seg Neutrophils # Seg Neutrophils # Man Lymphocytes # (Manual) POC ABG pH POC ABG pCO2 POC ABG pO2 Sodium Potassium Chloride Carbon Dioxide BUN Creatinine Glucose POC Glucose 139 H 138 H 148 H Calcium Phosphorus Magnesium Iron TIBC Ferritin Alkaline Phosphatase NT-Pro-B Natriuret Pep Total Protein Albumin Lipase Free T4 11/05/18 11/05/18 11/05/18 05:30 05:30 11:46 WBC 14.2 H RBC 3.12 L Hgb 10.0 L Hct 29.1 L MCV MCH MCHC Plt Count Lymph % (Auto) [place] % (Auto) Lymph # [place] # Seg Neutrophils % Seg Neuts % (Manual) Lymphocytes % (Manual) Seg Neutrophils # Seg Neutrophils # Man Lymphocytes # (Manual) POC ABG pH POC ABG pCO2 POC ABG pO2 Sodium Potassium Chloride Carbon Dioxide 21 L BUN 42 H Creatinine Glucose 125 H POC Glucose 157 H Calcium 7.9 L Phosphorus Magnesium Iron TIBC Ferritin Alkaline Phosphatase NT-Pro-B Natriuret Pep Total Protein Albumin Lipase Free T4 11/05/18 11/05/18 11/05/18 17:09 20:03 23:43 WBC RBC Hgb Hct MCV MCH MCHC Plt Count Lymph % (Auto) [place] % (Auto) Lymph # [place] # Seg Neutrophils % Seg Neuts % (Manual) Lymphocytes % (Manual) Seg Neutrophils # Seg Neutrophils # Man Lymphocytes # (Manual) POC ABG pH POC ABG pCO2 POC ABG pO2 76 L Sodium Potassium Chloride Carbon Dioxide BUN Creatinine Glucose POC Glucose 142 H 204 H Calcium Phosphorus Magnesium Iron TIBC Ferritin Alkaline Phosphatase NT-Pro-B Natriuret Pep Total Protein Albumin Lipase Free T4 11/06/18 11/06/18 11/06/18 04:21 12:14 17:17 WBC RBC Hgb Hct MCV MCH MCHC Plt Count Lymph % (Auto) [place] % (Auto) Lymph # [place] # Seg Neutrophils % Seg Neuts % (Manual) Lymphocytes % (Manual) Seg Neutrophils # Seg Neutrophils # Man Lymphocytes # (Manual) POC ABG pH POC ABG pCO2 POC ABG pO2 Sodium 133 L Potassium Chloride Carbon Dioxide 18 L BUN 47 H Creatinine Glucose 187 H POC Glucose 232 H 199 H Calcium 7.8 L Phosphorus 5.30 H D Magnesium 2.50 H Iron TIBC Ferritin Alkaline Phosphatase NT-Pro-B Natriuret Pep Total Protein Albumin Lipase Free T4 11/06/18 11/06/18 11/07/18 19:46 23:30 00:00 WBC RBC Hgb Hct MCV MCH MCHC Plt Count Lymph % (Auto) [place] % (Auto) Lymph # [place] # Seg Neutrophils % Seg Neuts % (Manual) Lymphocytes % (Manual) Seg Neutrophils # Seg Neutrophils # Man Lymphocytes # (Manual) POC ABG pH 7.317 L POC ABG pCO2 50.3 H POC ABG pO2 58 L 57 L Sodium Potassium Chloride Carbon Dioxide BUN Creatinine Glucose POC Glucose 224 H Calcium Phosphorus Magnesium Iron TIBC Ferritin Alkaline Phosphatase NT-Pro-B Natriuret Pep Total Protein Albumin Lipase Free T4 11/07/18 11/07/18 11/07/18 04:55 04:55 04:55 WBC 25.2 H RBC 3.64 L Hgb Hct MCV MCH MCHC Plt Count Lymph % (Auto) [place] % (Auto) Lymph # [place] # Seg Neutrophils % Seg Neuts % (Manual) Lymphocytes % (Manual) Seg Neutrophils # Seg Neutrophils # Man Lymphocytes # (Manual) POC ABG pH POC ABG pCO2 POC ABG pO2 Sodium Potassium Chloride Carbon Dioxide BUN 54 H Creatinine Glucose 270 H POC Glucose Calcium 7.9 L Phosphorus 5.00 H Magnesium Iron TIBC Ferritin Alkaline Phosphatase NT-Pro-B Natriuret Pep 4507 H Total Protein Albumin Lipase Free T4 11/07/18 11/07/18 11/07/18 05:46 08:08 11:52 WBC RBC Hgb Hct MCV MCH MCHC Plt Count Lymph % (Auto) [place] % (Auto) Lymph # [place] # Seg Neutrophils % Seg Neuts % (Manual) Lymphocytes % (Manual) Seg Neutrophils # Seg Neutrophils # Man Lymphocytes # (Manual) POC ABG pH POC ABG pCO2 47.6 H POC ABG pO2 106 H Sodium Potassium Chloride Carbon Dioxide BUN Creatinine Glucose POC Glucose 266 H 323 H Calcium Phosphorus Magnesium Iron TIBC Ferritin Alkaline Phosphatase NT-Pro-B Natriuret Pep Total Protein Albumin Lipase Free T4 11/07/18 11/07/18 11/07/18 12:29 17:57 23:48 WBC RBC Hgb Hct MCV MCH MCHC Plt Count Lymph % (Auto) [place] % (Auto) Lymph # [place] # Seg Neutrophils % Seg Neuts % (Manual) Lymphocytes % (Manual) Seg Neutrophils # Seg Neutrophils # Man Lymphocytes # (Manual) POC ABG pH POC ABG pCO2 POC ABG pO2 Sodium Potassium Chloride Carbon Dioxide BUN Creatinine Glucose POC Glucose 325 H 286 H 231 H Calcium Phosphorus Magnesium Iron TIBC Ferritin Alkaline Phosphatase NT-Pro-B Natriuret Pep Total Protein Albumin Lipase Free T4 11/08/18 11/08/1819 03:58 05:05 05:05 WBC 18.4 H RBC 3.20 L Hgb 10.0 L Hct 29.7 L MCV MCH MCHC Plt Count Lymph % (Auto) [place] % (Auto) Lymph # [place] # Seg Neutrophils % Seg Neuts % (Manual) Lymphocytes % (Manual) Seg Neutrophils # Seg Neutrophils # Man Lymphocytes # (Manual) POC ABG pH 7.524 H POC ABG pCO2 34.3 L POC ABG pO2 Sodium Potassium Chloride Carbon Dioxide BUN 61 H Creatinine Glucose 253 H POC Glucose Calcium 7.6 L Phosphorus Magnesium Iron TIBC Ferritin Alkaline Phosphatase NT-Pro-B Natriuret Pep Total Protein Albumin Lipase Free T4 11/08/18 11/08/18 11/08/18 05:28 11:28 18:21 WBC RBC Hgb Hct MCV MCH MCHC Plt Count Lymph % (Auto) [place] % (Auto) Lymph # [place] # Seg Neutrophils % Seg Neuts % (Manual) Lymphocytes % (Manual) Seg Neutrophils # Seg Neutrophils # Man Lymphocytes # (Manual) POC ABG pH POC ABG pCO2 POC ABG pO2 Sodium Potassium Chloride Carbon Dioxide BUN Creatinine Glucose POC Glucose 295 H 253 H 225 H Calcium Phosphorus Magnesium Iron TIBC Ferritin Alkaline Phosphatase NT-Pro-B Natriuret Pep Total Protein Albumin Lipase Free T4 11/09/18 11/09/18 11/09/18 00:57 04:06 06:06 WBC RBC Hgb Hct MCV MCH MCHC Plt Count Lymph % (Auto) [place] % (Auto) Lymph # [place] # Seg Neutrophils % Seg Neuts % (Manual) Lymphocytes % (Manual) Seg Neutrophils # Seg Neutrophils # Man Lymphocytes # (Manual) POC ABG pH 7.509 H POC ABG pCO2 POC ABG pO2 Sodium Potassium Chloride Carbon Dioxide BUN Creatinine Glucose POC Glucose 218 H 199 H Calcium Phosphorus Magnesium Iron TIBC Ferritin Alkaline Phosphatase NT-Pro-B Natriuret Pep Total Protein Albumin Lipase Free T4 11/09/18 11/09/18 11/09/18 06:51 06:51 12:07 WBC 13.5 H RBC 2.97 L Hgb 9.3 L Hct 27.6 L MCV MCH MCHC Plt Count Lymph % (Auto) [place] % (Auto) Lymph # [place] # Seg Neutrophils % Seg Neuts % (Manual) Lymphocytes % (Manual) Seg Neutrophils # Seg Neutrophils # Man Lymphocytes # (Manual) POC ABG pH POC ABG pCO2 POC ABG pO2 Sodium Potassium Chloride 96.5 L Carbon Dioxide 32 H BUN 58 H Creatinine Glucose 191 H POC Glucose 212 H Calcium 7.5 L Phosphorus Magnesium Iron TIBC Ferritin Alkaline Phosphatase NT-Pro-B Natriuret Pep Total Protein Albumin Lipase Free T4 11/09/18 11/10/18 11/10/18 18:29 00:09 04:21 WBC RBC Hgb Hct MCV MCH MCHC Plt Count Lymph % (Auto) [place] % (Auto) Lymph # [place] # Seg Neutrophils % Seg Neuts % (Manual) Lymphocytes % (Manual) Seg Neutrophils # Seg Neutrophils # Man Lymphocytes # (Manual) POC ABG pH 7.467 H POC ABG pCO2 49.9 H POC ABG pO2 76 L Sodium Potassium Chloride Carbon Dioxide BUN Creatinine Glucose POC Glucose 192 H 214 H Calcium Phosphorus Magnesium Iron TIBC Ferritin Alkaline Phosphatase NT-Pro-B Natriuret Pep Total Protein Albumin Lipase Free T4 11/10/18 11/10/18 11/10/18 04:39 04:39 06:05 WBC 14.3 H RBC 3.09 L Hgb 9.7 L Hct 28.9 L MCV MCH MCHC Plt Count Lymph % (Auto) [place] % (Auto) Lymph # [place] # Seg Neutrophils % Seg Neuts % (Manual) Lymphocytes % (Manual) Seg Neutrophils # Seg Neutrophils # Man Lymphocytes # (Manual) POC ABG pH POC ABG pCO2 POC ABG pO2 Sodium Potassium Chloride 97.5 L Carbon Dioxide 31 H BUN 53 H Creatinine Glucose 196 H POC Glucose 202 H Calcium 7.7 L Phosphorus Magnesium Iron TIBC Ferritin Alkaline Phosphatase NT-Pro-B Natriuret Pep Total Protein Albumin Lipase Free T4 11/10/18 11/10/18 11/11/18 12:32 17:16 00:06 WBC RBC Hgb Hct MCV MCH MCHC Plt Count Lymph % (Auto) [place] % (Auto) Lymph # [place] # Seg Neutrophils % Seg Neuts % (Manual) Lymphocytes % (Manual) Seg Neutrophils # Seg Neutrophils # Man Lymphocytes # (Manual) POC ABG pH POC ABG pCO2 POC ABG pO2 Sodium Potassium Chloride Carbon Dioxide BUN Creatinine Glucose POC Glucose 197 H 200 H 177 H Calcium Phosphorus Magnesium Iron TIBC Ferritin Alkaline Phosphatase NT-Pro-B Natriuret Pep Total Protein Albumin Lipase Free T4 11/11/18 11/11/18 11/11/18 04:43 05:24 05:50 WBC 14.1 H RBC 2.92 L Hgb 9.1 L Hct 27.0 L MCV MCH MCHC Plt Count Lymph % (Auto) [place] % (Auto) Lymph # [place] # Seg Neutrophils % Seg Neuts % (Manual) Lymphocytes % (Manual) Seg Neutrophils # Seg Neutrophils # Man Lymphocytes # (Manual) POC ABG pH POC ABG pCO2 50.1 H POC ABG pO2 Sodium Potassium Chloride Carbon Dioxide BUN Creatinine Glucose POC Glucose 199 H Calcium Phosphorus Magnesium Iron TIBC Ferritin Alkaline Phosphatase NT-Pro-B Natriuret Pep Total Protein Albumin Lipase Free T4 11/11/18 11/11/18 11/11/18 05:50 12:00 17:57 WBC RBC Hgb Hct MCV MCH MCHC Plt Count Lymph % (Auto) [place] % (Auto) Lymph # [place] # Seg Neutrophils % Seg Neuts % (Manual) Lymphocytes % (Manual) Seg Neutrophils # Seg Neutrophils # Man Lymphocytes # (Manual) POC ABG pH POC ABG pCO2 POC ABG pO2 Sodium Potassium 3.5 L Chloride Carbon Dioxide 34 H BUN 47 H Creatinine 0.5 L Glucose 169 H POC Glucose 168 H 194 H Calcium 8.2 L Phosphorus Magnesium Iron TIBC Ferritin Alkaline Phosphatase 142 H NT-Pro-B Natriuret Pep Total Protein 4.4 L Albumin 2.1 L Lipase Free T4 11/11/18 11/12/18 11/12/18 23:26 05:32 09:26 WBC RBC Hgb Hct MCV MCH MCHC Plt Count Lymph % (Auto) [place] % (Auto) Lymph # [place] # Seg Neutrophils % Seg Neuts % (Manual) Lymphocytes % (Manual) Seg Neutrophils # Seg Neutrophils # Man Lymphocytes # (Manual) POC ABG pH POC ABG pCO2 POC ABG pO2 Sodium Potassium Chloride Carbon Dioxide BUN Creatinine Glucose POC Glucose 181 H 186 H 158 H Calcium Phosphorus Magnesium Iron TIBC Ferritin Alkaline Phosphatase NT-Pro-B Natriuret Pep Total Protein Albumin Lipase Free T4 11/12/18 11/12/18 11/12/18 11:42 17:39 23:25 WBC RBC Hgb Hct MCV MCH MCHC Plt Count Lymph % (Auto) [place] % (Auto) Lymph # [place] # Seg Neutrophils % Seg Neuts % (Manual) Lymphocytes % (Manual) Seg Neutrophils # Seg Neutrophils # Man Lymphocytes # (Manual) POC ABG pH POC ABG pCO2 POC ABG pO2 Sodium Potassium Chloride Carbon Dioxide BUN Creatinine Glucose POC Glucose 141 H 183 H 147 H Calcium Phosphorus Magnesium Iron TIBC Ferritin Alkaline Phosphatase NT-Pro-B Natriuret Pep Total Protein Albumin Lipase Free T4 11/13/18 11/13/18 11/13/18 12:16 18:10 21:21 WBC RBC Hgb Hct MCV MCH MCHC Plt Count Lymph % (Auto) [place] % (Auto) Lymph # [place] # Seg Neutrophils % Seg Neuts % (Manual) Lymphocytes % (Manual) Seg Neutrophils # Seg Neutrophils # Man Lymphocytes # (Manual) POC ABG pH POC ABG pCO2 POC ABG pO2 Sodium Potassium Chloride Carbon Dioxide BUN Creatinine Glucose POC Glucose 114 H 127 H 185 H Calcium Phosphorus Magnesium Iron TIBC Ferritin Alkaline Phosphatase NT-Pro-B Natriuret Pep Total Protein Albumin Lipase Free T4 11/13/18 11/14/18 11/14/18 23:11 03:28 03:28 WBC RBC Hgb Hct MCV MCH MCHC Plt Count Lymph % (Auto) [place] % (Auto) Lymph # [place] # Seg Neutrophils % Seg Neuts % (Manual) Lymphocytes % (Manual) Seg Neutrophils # Seg Neutrophils # Man Lymphocytes # (Manual) POC ABG pH POC ABG pCO2 POC ABG pO2 Sodium Potassium Chloride Carbon Dioxide BUN Creatinine Glucose POC Glucose 184 H Calcium Phosphorus Magnesium Iron 31 L TIBC 173 L Ferritin 510.3 H Alkaline Phosphatase NT-Pro-B Natriuret Pep Total Protein Albumin Lipase Free T4 11/14/18 11/14/18 11/14/18 05:12 07:59 10:05 WBC 19.8 H RBC 2.67 L Hgb 8.4 L Hct 25.2 L MCV MCH MCHC Plt Count Lymph % (Auto) [place] % (Auto) Lymph # [place] # Seg Neutrophils % Seg Neuts % (Manual) 96.0 H Lymphocytes % (Manual) 0 L Seg Neutrophils # Seg Neutrophils # Man 19.0 H Lymphocytes # (Manual) 0.0 L POC ABG pH 7.470 H POC ABG pCO2 POC ABG pO2 Sodium Potassium Chloride Carbon Dioxide BUN Creatinine Glucose POC Glucose 178 H Calcium Phosphorus Magnesium Iron TIBC Ferritin Alkaline Phosphatase NT-Pro-B Natriuret Pep Total Protein Albumin Lipase Free T4 11/14/18 11/14/18 11/14/18 11:40 18:03 23:15 WBC RBC Hgb Hct MCV MCH MCHC Plt Count Lymph % (Auto) [place] % (Auto) Lymph # [place] # Seg Neutrophils % Seg Neuts % (Manual) Lymphocytes % (Manual) Seg Neutrophils # Seg Neutrophils # Man Lymphocytes # (Manual) POC ABG pH POC ABG pCO2 POC ABG pO2 Sodium Potassium Chloride Carbon Dioxide BUN Creatinine Glucose POC Glucose 168 H 221 H 223 H Calcium Phosphorus Magnesium Iron TIBC Ferritin Alkaline Phosphatase NT-Pro-B Natriuret Pep Total Protein Albumin Lipase Free T4 11/15/18 11/15/18 11/15/18 05:29 11:33 12:13 WBC RBC Hgb Hct MCV MCH MCHC Plt Count Lymph % (Auto) [place] % (Auto) Lymph # [place] # Seg Neutrophils % Seg Neuts % (Manual) Lymphocytes % (Manual) Seg Neutrophils # Seg Neutrophils # Man Lymphocytes # (Manual) POC ABG pH POC ABG pCO2 46.1 H POC ABG pO2 107 H Sodium Potassium Chloride Carbon Dioxide BUN Creatinine Glucose POC Glucose 210 H 199 H Calcium Phosphorus Magnesium Iron TIBC Ferritin Alkaline Phosphatase NT-Pro-B Natriuret Pep Total Protein Albumin Lipase Free T4 11/15/18 11/15/18 11/15/18 14:32 17:45 23:29 WBC RBC Hgb Hct MCV MCH MCHC Plt Count Lymph % (Auto) [place] % (Auto) Lymph # [place] # Seg Neutrophils % Seg Neuts % (Manual) Lymphocytes % (Manual) Seg Neutrophils # Seg Neutrophils # Man Lymphocytes # (Manual) POC ABG pH POC ABG pCO2 POC ABG pO2 Sodium 149 H Potassium 3.1 L Chloride 109.2 H Carbon Dioxide BUN 36 H Creatinine 0.5 L Glucose 164 H POC Glucose 154 H 163 H Calcium 7.5 L Phosphorus Magnesium Iron TIBC Ferritin Alkaline Phosphatase NT-Pro-B Natriuret Pep Total Protein Albumin Lipase Free T4 11/16/18 05:54 WBC RBC Hgb Hct MCV MCH MCHC Plt Count Lymph % (Auto) [place] % (Auto) Lymph # [place] # Seg Neutrophils % Seg Neuts % (Manual) Lymphocytes % (Manual) Seg Neutrophils # Seg Neutrophils # Man Lymphocytes # (Manual) POC ABG pH POC ABG pCO2 POC ABG pO2 Sodium Potassium Chloride Carbon Dioxide BUN Creatinine Glucose POC Glucose 168 H Calcium Phosphorus Magnesium Iron TIBC Ferritin Alkaline Phosphatase NT-Pro-B Natriuret Pep Total Protein Albumin Lipase Free T4 Allied health notes reviewed: nursing
[2018-11-16] MEDS: TYLENOL PO PRN (09:51)
[2018-11-16] MEDS: PROTONIX IV SCH (09:52)
[2018-11-16] MEDS: DIFLUCAN 200 ML IV SCH (09:52)
[2018-11-16] MEDS: SODIUM CHLORIDE FLUSH SYRINGE 10 ML IV SCH ×2 (09:53→22:33)
[2018-11-16] MEDS: KCL 10MEQ/100ML 10 MEQ/100 ML BAG IV SCH ×2 (11:00→12:58)
--- NOTE | 2018-11-16 12:54 | Progress Note ---
Assessment and Plan Assessment and plan: Acute hypoxic respiratory failure. Patient was reintubated on 10/28/18 and currently on mechanical ventilation. Etiology secondary to COPD/pneumonia/sepsis. Extubated 11/05, re-intubated 11/07 Wean mechanical ventilation per pulmonary. Patient Initiated on T piece trial, monitor during the day. continue mechanical vent at nighttime, Gastric perforation. Repeat CT scan on 10/30 revealed pSBO resolved, no evidence for bowel ischemia. Small contained gastric perforation at lesser curve. No gross free air or contrast extravasation. Surgery recommends conservative management Sepsis/candidemia. Etiology is due to Ayla glabrata. Patient with TPN and PICC line. PICC line removed. Repeat fungal cultures are negative. Continue IV antifungal and follow-up blood cultures. Removed current central line and inserted midline. ID started fluconazole 11/13/18 and discontinued micafungin. Thrombocytopenia. Etiology likely secondary to sepsis. Hematology following. Bilateral upper lobe/aspiration pneumonia. Sputum culture positive for Escherichia coli and stenotrophomonas. Continue antibiotics per ID. Bilateral pleural effusions. Acute exacerbation COPD. Scheduled Duo Nebs and Pulmicort; albuterol when necessary Presumed aspiration pneumonia versus healthcare associated pneumonia. Tracheal aspirate cultures from 10/28 with Escherichia coli and stenotrophomonas. Completed antibiotics. Hypokalemia. Replete potassium as needed. Hypertension. IV hydralazine when necessary Lupus. Supportive care Fibromyalgia. supportive care History of opioid dependence ADWOA due to vasomotor nephropathy, now resolved The high probability of a clinically significant, sudden or life threatening deterioration of the [GI and respiratory] system(s) required my full and direct attention, intervention and personal management. The aggregate critical care time was [31] minutes. This time is in addition to time spent performing reported procedures but includes the following: [x] Data Review and interpretation [x] Patient assessment and monitoring of vital signs [x] Documentation [x] Medication orders and management History Interval history: Patient is 73-year-old female with history of hypertension, lupus, fibromyalgia, COPD, opioid dependence (follows Dr. Felix Muñiz at pain clinic) who presented to [facility] ED with complaints of intractable nausea, vomiting, diarrhea for 3 days. On initial presentation to the ED she was found to be tachycardiac with heart rate 113 BPM, leukocytosis with WBC 11.5, elevated BUN/Cr 51/2.1. Patient has history of COPD and at baseline does not require home oxygen use. She was admitted to [facility]. GI was consulted, she was evaluated. CT Abdomen revealed partial SBO versus ileus therefore surgeon consulted. Also patient became more short of breath, placed on BIPAP with no improvement then intubated 10/26/18 for acute resp failure and transferred to ICU. Obstruction series completed on 10/27 which showed improved but small bowel and stomach dilatation. Follow-up series on 10/28 showed no significant change since previous study. NG tube was removed due to patient not tolerating/refusing. Patient was placed back on BiPAP but decompensated on the night of 10/28/18 and had to be reintubated. Patient currently on mechanical ventilation. Patient has had further complications now with findings consistent with contained gastric perforation on repeat CT scan 10/30, managed conservatively. She was extubated 11/05, re-intubated 11/07/18. This is 3rd intubation so Tracheostomy has been recommended and being planned. No PEG yet, for at least 2 weeks because of recent gastric perforation. Hospitalist Physical - Constitutional Vitals: Temp Pulse Resp BP Pulse Ox 98.5 F 120 H 19 124/28 97 11/16/18 08:00 11/16/18 11:00 11/16/18 11:00 11/16/18 11:00 11/16/18 11:00 General appearance: Present: other (intubated, opens eyes to commands) - EENT Eyes: Present: PERRL, EOM intact ENT: hearing intact, clear oral mucosa, dentition normal - Neck Neck: Present: supple, normal ROM - Respiratory Respiratory effort: normal Respiratory: bilateral: CTA - Cardiovascular Rhythm: regular Heart Sounds: Present: S1 & S2. Absent: gallop, rub - Extremities Extremities: no ischemia, No edema, Full ROM - Abdominal General gastrointestinal: soft, non-tender, non-distended, normal bowel sounds - Integumentary Integumentary: Present: clear, warm, dry - Neurologic Neurologic: CNII-XII intact, moves all extremities Results - Labs CBC & Chem 7: 11/14/18 07:59 11/15/18 14:32 Labs: Laboratory Last Values WBC 19.8 K/mm3 (4.5-11.0) H 11/14/18 07:59 RBC 2.67 M/mm3 (3.65-5.03) L 11/14/18 07:59 Hgb 8.4 gm/dl (10.1-14.3) L 11/14/18 07:59 Hct 25.2 % (30.3-42.9) L 11/14/18 07:59 MCV 94 fl (79-97) 11/14/18 07:59 MCH 32 pg (28-32) 11/14/18 07:59 MCHC 34 % (30-34) 11/14/18 07:59 RDW 15.1 % (13.2-15.2) 11/14/18 07:59 Plt Count 297 K/mm3 (140-440) 11/14/18 07:59 Lymph % (Auto) Shrink Pit Supervisor 11/14/18 07:59 [place] % (Auto) Shrink Pit Supervisor 11/14/18 07:59 Eos % (Auto) Shrink Pit Supervisor 11/14/18 07:59 Baso % (Auto) Shrink Pit Supervisor 11/14/18 07:59 Lymph # Shrink Pit Supervisor 11/14/18 07:59 [place] # Shrink Pit Supervisor 11/14/18 07:59 Eos # Shrink Pit Supervisor 11/14/18 07:59 Baso # Shrink Pit Supervisor 11/14/18 07:59 Add Manual Diff Complete 11/14/18 07:59 Total Counted 100 11/14/18 07:59 Seg Neutrophils % Shrink Pit Supervisor 11/14/18 07:59 Seg Neuts % (Manual) 96.0 % (40.0-70.0) H 11/14/18 07:59 0 % 11/14/18 07:59 0 % (13.4-35.0) L 11/14/18 07:59 Reactive Lymphs % (Man) 0 % 11/14/18 07:59 4.0 % (0.0-7.3) 11/14/18 07:59 0 % (0.0-4.3) 11/14/18 07:59 0 % (0.0-1.8) 11/14/18 07:59 0 % 11/14/18 07:59 0 % 11/14/18 07:59 0 % 11/14/18 07:59 0 % 11/14/18 07:59 Nucleated RBC % Not Reportable 11/14/18 07:59 Seg Neutrophils # Shrink Pit Supervisor 11/14/18 07:59 Seg Neutrophils # Man 19.0 K/mm3 (1.8-7.7) H 11/14/18 07:59 Band Neutrophils # 0.0 K/mm3 11/14/18 07:59 0.0 K/mm3 (1.2-5.4) L 11/14/18 07:59 Abs React Lymphs (Man) 0.0 K/mm3 11/14/18 07:59 0.8 K/mm3 (0.0-0.8) 11/14/18 07:59 0.0 K/mm3 (0.0-0.4) 11/14/18 07:59 0.0 K/mm3 (0.0-0.1) 11/14/18 07:59 0.0 K/mm3 11/14/18 07:59 0.0 K/mm3 11/14/18 07:59 0.0 K/mm3 11/14/18 07:59 Blast Cells # 0.0 K/mm3 11/14/18 07:59 WBC Morphology Not Reportable 11/14/18 07:59 Hypersegmented Neuts Not Reportable 11/14/18 07:59 Hyposegmented Neuts Not Reportable 11/14/18 07:59 Hypogranular Neuts Not Reportable 11/14/18 07:59 Not Reportable 11/14/18 07:59 Not Reportable 11/14/18 07:59 Not Reportable 11/14/18 07:59 Not Reportable 11/14/18 07:59 Not Reportable 11/14/18 07:59 Not Reportable 11/14/18 07:59 Consistent w auto 11/14/18 07:59 Not Reportable 11/14/18 07:59 Plt Clumps, EDTA Not Reportable 11/14/18 07:59 Not Reportable 11/14/18 07:59 Not Reportable 11/14/18 07:59 Not Reportable 11/14/18 07:59 Plt Morphology Comment Not Reportable 11/14/18 07:59 RBC Morphology Normal 11/14/18 07:59 Dimorphic RBCs Not Reportable 11/14/18 07:59 Not Reportable 11/14/18 07:59 Not Reportable 11/14/18 07:59 Not Reportable 11/14/18 07:59 Not Reportable 11/14/18 07:59 Not Reportable 11/14/18 07:59 Not Reportable 11/14/18 07:59 Not Reportable 11/14/18 07:59 Not Reportable 11/14/18 07:59 Not Reportable 11/14/18 07:59 Not Reportable 11/14/18 07:59 Not Reportable 11/14/18 07:59 Not Reportable 11/14/18 07:59 Not Reportable 11/14/18 07:59 Not Reportable 11/14/18 07:59 Not Reportable 11/14/18 07:59 Not Reportable 11/14/18 07:59 Not Reportable 11/14/18 07:59 Not Reportable 11/14/18 07:59 Not Reportable 11/14/18 07:59 Acanthocytes (Spur) Not Reportable 11/14/18 07:59 Rouleaux Not Reportable 11/14/18 07:59 Not Reportable 11/14/18 07:59 Not Reportable 11/14/18 07:59 Not Reportable 11/14/18 07:59 Not Reportable 11/14/18 07:59 Hem Pathologist Commnt No 11/14/18 07:59 Heparin Anti-Xa, Unfract Negative (Negative) 10/30/18 13:58 POC ABG pH 7.446 (7.35-7.45) 11/15/18 11:33 POC ABG pCO2 46.1 (35-45) H 11/15/18 11:33 POC ABG pO2 107 (80-105) H 11/15/18 11:33 POC ABG HCO3 31.8 (22-26 mml/L) 11/15/18 11:33 POC ABG Total CO2 33 (23-27mmol/L) 11/15/18 11:33 POC ABG O2 Sat 98 11/15/18 11:33 POC ABG Base Excess 8 ((-2) - (+3)mmol/L) 11/15/18 11:33 30 % 11/15/18 11:33 Sodium 149 mmol/L (137-145) H 11/15/18 14:32 Potassium 3.1 mmol/L (3.6-5.0) L 11/15/18 14:32 Chloride 109.2 mmol/L (98-107) H 11/15/18 14:32 Carbon Dioxide 29 mmol/L (22-30) 11/15/18 14:32 14 mmol/L 11/15/18 14:32 BUN 36 mg/dL (7-17) H 11/15/18 14:32 0.5 mg/dL (0.7-1.2) L 11/15/18 14:32 Estimated GFR > 60 ml/min 11/15/18 14:32 72 % 11/15/18 14:32 Glucose 164 mg/dL (65-100) H 11/15/18 14:32 POC Glucose 176 (70-105) H 11/16/18 12:05 Lactic Acid 1.60 mmol/L (0.7-2.0) 10/26/18 15:03 Calcium 7.5 mg/dL (8.4-10.2) L 11/15/18 14:32 Phosphorus 2.80 mg/dL (2.5-4.5) 11/11/18 05:50 Magnesium 1.80 mg/dL (1.7-2.3) 11/11/18 05:50 Iron 31 ug/dL (37-170) L 11/14/18 03:28 TIBC 173 mcg/dL (250-450) L 11/14/18 03:28 510.3 ng/mL (13.0-400.0) H 11/14/18 03:28 0.30 mg/dL (0.1-1.2) 11/11/18 05:50 AST 26 units/L (5-40) 11/11/18 05:50 ALT 28 units/L (7-56) 11/11/18 05:50 142 units/L (35-129) H 11/11/18 05:50 NT-Pro-B Natriuret Pep 4507 pg/mL (0-900) H 11/07/18 04:55 4.4 g/dL (6.3-8.2) L 11/11/18 05:50 2.1 g/dL (3.9-5) L 11/11/18 05:50 0.9 % 11/11/18 05:50 Triglycerides 132 mg/dL (2-149) 11/01/18 06:40 10 units/L (13-60) L 10/22/18 15:54 See scanned result 10/30/18 13:58 TSH 3.150 mlU/mL (0.270-4.200) 10/31/18 17:00 Free T4 0.49 ng/dL (0.76-1.46) L 10/31/18 17:00 Dulce (Yellow) 10/22/18 19:10 Clear (Clear) 10/22/18 19:10 5.0 (5.0-7.0) 10/22/18 19:10 Ur Specific [place] 1.018 (1.003-1.030) 10/22/18 19:10 30 mg/dl mg/dL (Negative) 10/22/18 19:10 Neg mg/dL (Negative) 10/22/18 19:10 Tr mg/dL (Negative) 10/22/18 19:10 Neg (Negative) 10/22/18 19:10 Neg (Negative) 10/22/18 19:10 Neg (Negative) 10/22/18 19:10 < 2.0 mg/dL (<2.0) 10/22/18 19:10 Ur Leukocyte Esterase Neg (Negative) 10/22/18 19:10 1.0 /HPF (0.0-6.0) 10/22/18 19:10 3.0 /HPF (0.0-6.0) 10/22/18 19:10 Heparin-induced Plt Ab Negative (Negative) 10/30/18 13:58 UF Heparin High Dose 0 % Release 10/30/18 13:58 KIMO UFH Low Dose 0.1 0 % Release 10/30/18 13:58 KIMO UFH Low Dose 0.5 0 % Release 10/30/18 13:58 Active Medications - Current Medications Current Medications: Generic Name Dose Route Start Last Admin Trade Name Freq PRN Reason Stop Dose Admin Acetaminophen 650 mg 10/22/18 20:10 11/16/18 09:51 Tylenol PO 650 mg Q4H PRN Administration Pain MILD(1-3)/Fever >100.5/PORTER Albuterol 2.5 mg 10/22/18 20:14 11/05/18 16:35 Proventil IH 2.5 mg Q4HRT PRN Administration Shortness Of Breath Lipase/Protease/Amylase 1 each 11/05/18 10:[address] 10,500 Unit FEEDTUBE PRN PRN For Clogged Feeding Tube Arformoterol Tartrate 15 mcg 11/05/18 20:00 11/16/18 07:58 Brovana Nebu IH 15 mcg Q12HRT RICK Administration Budesonide 0.5 mg 10/23/18 08:00 11/16/18 07:59 Pulmicort IH 0.5 mg Q12HRT RICK Administration Dextrose 50 ml 10/26/18 23:40 10/27/18 00:20 D50w (25gm) Syringe IV 50 ml PRN PRN Administration Hypoglycemia Enoxaparin Sodium 40 mg 11/14/18 22:00 11/15/18 23:20 Lovenox SUB-Q 40 mg QDAY@2200 RICK Administration Furosemide 20 mg 11/13/18 18:00 11/16/18 05:42 Lasix IV 20 mg 0600,1800 RICK Administration Gabapentin 600 mg 11/12/18 10:00 11/16/18 05:42 Neurontin PO 600 mg Q8HR RICK Administration Hydralazine HCl 10 mg 10/22/18 21:41 11/07/18 00:04 Apresoline IV 10 mg Q4HR PRN Administration Blood Pressure Hydromorphone HCl 1 mg 11/12/18 09:55 11/15/18 08:40 Dilaudid IV 1 mg Q4H PRN Administration Pain , Severe (7-10) Hydrophilic Ointment 1 applic 11/07/18 09:14 Vaseline Lip Therapy TP Q2HR PRN Dry Lips Fluconazole 200 mls @ 100 mls/hr 11/14/18 10:00 11/16/18 09:52 Diflucan IV 11/16/18 23:59 100 mls/hr Q24HR RICK Administration Protocol Potassium Chloride 10 meq in 100 mls @ 100 mls/hr 11/16/18 11:00 11/16/18 11:00 Kcl 10meq/100ml IV 11/16/18 14:59 100 mls/hr Q1H RICK Administration Insulin Human Isoph/Insulin Regular 12 unit 11/10/18 22:00 11/16/18 09:56 Humulin 70/30 SUB-Q 12 unit BID RICK Administration Insulin Human Lispro 0 unit 10/29/18 12:00 11/16/18 12:50 Humalog SUB-Q 2 unit Q6HR RICK Administration Protocol Lorazepam 1 mg 11/06/18 11:00 11/15/18 10:16 Ativan IV 1 mg Q6H PRN Administration Anxiety Methylprednisolone Sodium Succinate 40 mg 11/13/18 14:00 11/16/18 05:42 Solu-Medrol IV 40 mg Q8H RICK Administration Metoprolol Tartrate 5 mg 11/13/18 13:00 11/16/18 07:00 Lopressor IV 5 mg Q6H RICK Administration Multi-Ingred Cream/Lotion/Oil/Oint 1 applic 11/07/18 09:14 Artificial Tears Ophth Oint OU Q4HR PRN Dry Eye(s) Ondansetron HCl 4 mg 10/24/18 10:05 10/25/18 17:26 Zofran IV 4 mg Q6H PRN Administration Nausea And Vomiting Oxycodone/Acetaminophen 1 tab 11/05/18 11:16 11/14/18 16:45 Percocet 5/325 PO 1 tab Q6H PRN Administration Pain, Moderate (4-6) Pantoprazole Sodium 40 mg 11/05/18 10:00 11/16/18 09:52 Protonix IV 40 mg DAILY RICK Administration Phenol 1 spray 10/28/18 10:16 Chloraseptic MM PRN PRN Sore Throat Promethazine HCl 25 mg 10/22/18 20:10 10/22/18 21:21 Phenergan SC 25 mg Q6H PRN Administration Nausea And Vomiting Quetiapine Fumarate 300 mg 11/12/18 10:00 11/16/18 09:51 Seroquel PO 300 mg DAILY RICK Administration Simple Syrup 15 ml 11/05/18 10:13 Simple Syrup FEEDTUBE PRN PRN Hypoglycemia Simple Syrup 30 ml 11/05/18 10:13 Simple Syrup FEEDTUBE PRN PRN Hypoglycemia Sodium Bicarbonate 325 mg 11/05/18 10:13 Sodium Bicarbonate FEEDTUBE PRN PRN For Clogged Feeding Tube Sodium Chloride 10 ml 10/22/18 22:00 11/16/18 09:53 Sodium Chloride Flush Syringe 10 Ml IV 10 ml BID RICK Administration Sodium Chloride 10 ml 10/22/18 20:10 11/09/18 14:29 Sodium Chloride Flush Syringe 10 Ml IV 10 ml PRN PRN Administration LINE FLUSH Nutrition/Malnutrition Assess - Dietary Evaluation Nutrition/Malnutrition Findings: Nutrition Notes Start: 10/23/18 17 :03 Freq: Status: Active Protocol: Document 11/14/18 16:38 RM (Rec: 11/14/18 16:47 RM [id number]) Nutrition Notes Initial or Follow up Reassessment Other Pertinent Diagnosis Gastric peforation, bilat pneu Current Diet TF - Vital AF 1.2 at 45 ml/hr Labs/Tests Reviewed Pertinent Medications Lasix, Solu-medrol Height 5 ft 3 in Weight 63 kg [place] Body Weight (kg) 52.27 BMI 24.5 Subjective/Other Information Observed Vital 1.2 infusing at goal. Per nurse pt is tolerating TF and has rectal tube in place. Percent of energy/protein needs met: 83%/100% Burn Absent Trauma Absent #1 Nutrition Diagnosis Inadequate oral intake Diagnosis Progress(for reassessment Continues documentation) Is patient on ventilator? Yes Is Patient Ambulatory and/or Out of Bed No REE-([place]-confined to bed) 1337.112 Kcal/Kg value to use for calculation 25 Approximate Energy Requirements Using 1575 kcal/Kg Calculation Used for Recommendations [facility] Additional Notes Pro needs 1.2-2g/kg (based on UBW): 60-100g/day Fluid needs 1ml/kcal Nutrition Intervention Nutrition Support: Vital 1.2 at 45 ml/hr. Water flush of 70 ml q 4 hrs. Kcal 1,296 Protein (gm) 81 Fluid (mL) 876 Fiber (gm) 5 Goal #1 TF tolerance Goal #2 TF to continue to meet at least 75% energy and pro needs Follow-Up By: 11/19/18 Additional Comments F/U: TF tolerance
[2018-11-16 13:30] LABS: BUN/Creatinine Ratio 82; Blood Urea Nitrogen 41 mg/dL (7-17); Calcium 7.6 mg/dL (8.4-10.2); Hemolysis Index 23
[2018-11-16] MEDS ORDERED: POTASSIUM CHLORIDE FEEDTUBE ONE (14:00)
[2018-11-16] MEDS: ATIVAN IV PRN (19:23)
[2018-11-16] MEDS: LOVENOX SUB-Q SCH (22:32)
[2018-11-17] MEDS: LOPRESSOR IV SCH ×3 (00:25→13:54)
[2018-11-17] MEDS: HumaLOG SUB-Q SCH ×4 (00:25→17:45)
[2018-11-17] MEDS: DILAUDID IV PRN ×2 (04:09→21:58)
[2018-11-17 05:25] LABS: Hematocrit 25.9 % (30.3-42.9); Hemoglobin 8.7 gm/dl (10.1-14.3); Mean Corpuscular HGB Conc 34 % (30-34); Mean Corpuscular Volume 95 fl (79-97); Platelet Count 408 K/mm3 (140-440); Red Blood Count 2.72 M/mm3 (3.65-5.03); Red Cell Distribution Width 15.6 % (13.2-15.2)
[2018-11-17 05:50] LABS: BUN/Creatinine Ratio 80; Blood Urea Nitrogen 40 mg/dL (7-17); Calcium 7.9 mg/dL (8.4-10.2); Hemolysis Index 7
[2018-11-17] MEDS: NEURONTIN PO SCH ×3 (06:26→21:51)
[2018-11-17] MEDS: LASIX IV SCH (06:26)
[2018-11-17] MEDS: SOLU-Medrol IV SCH ×3 (06:26→21:53)
[2018-11-17 06:34] LABS: Monocytes % (Manual) 0 % (0.0-7.3); Myelocytes # (Manual) 0.2 K/mm3; Total Cells Counted 100
[2018-11-17 06:35] LABS: Basophils % (Manual) 0 % (0.0-1.8); Eosinophils % (Manual) 0 % (0.0-4.3); Stomatocytes Few
[2018-11-17 06:37] LABS: Hypochromasia 1+; Platelet Estimate Consistent w Auto; Target Cells 1+
--- NOTE | 2018-11-17 07:45 | Hem/Onc Progress Note ---
Assessment and Plan 1. h/o Thrombocytopenia, likely medication, pts medical status related. better 2. History of colon surgery in the past, details not clear. 3. History of bowel issues. Seen by surgical team. - pSBO and contained gastric perforation 4. h/o TPN. 5. h/o Ayla, ID following. 6. Chronic obstructive pulmonary disease. 7. Hypertension. 8. History of lupus. 9. Aspiration pneumonia. 10. The patient was on ventilation. 11. Renal impairment. 11/17 pt on vent - trach - pulm following anemia - iv iron h/o b12 inj at home - monthly - s/p same - Patient Problems (1) Thrombocytopenia Current Visit: Yes Status: Acute Subjective Date of service: 11/17/18 Principal diagnosis: anemia Interval history: trach - feeling better Objective - Constitutional Vitals: Last Vital Signs Temp 99.0 F 11/17/18 04:00 Pulse 109 H 11/17/18 06:00 Resp 17 11/17/18 06:00 BP 116/47 11/17/18 06:00 Pulse Ox 99 11/17/18 06:00 Pain Intensity (0-10): denies any pain General appearance: no acute distress Performance status: 4-completely disabled - EENT Eyes: EOM intact ENT: hearing intact Lymph node exam: negative cervical - Neck Neck: normal ROM - Respiratory Respiratory effort: Positive: normal Respiratory: bilateral: diminished (poor effort) - Cardiovascular Heart Sounds: Present: S1 & S2 Extremities: normal temperature - Gastrointestinal General gastrointestinal: Present: soft Rectal Exam: deferred - Genitourinary Female genitourinary: Present: deferred - Integumentary Integumentary: warm - Musculoskeletal Musculoskeletal: generalized weakness - Neurologic Neurologic: moves all extremities - Labs Lab Results: Laboratory Results - last 24 hr 11/16/18 11/16/18 11/16/18 12:05 12:57 16:49 WBC RBC Hgb Hct MCV MCH MCHC RDW Plt Count Add Manual Diff Total Counted Seg Neutrophils % Seg Neuts % (Manual) Band Neutrophils % Lymphocytes % (Manual) Reactive Lymphs % (Man) Monocytes % (Manual) Eosinophils % (Manual) Basophils % (Manual) Metamyelocytes % Myelocytes % Promyelocytes % Blast Cells % Nucleated RBC % Seg Neutrophils # Man Band Neutrophils # Lymphocytes # (Manual) Abs React Lymphs (Man) Monocytes # (Manual) Eosinophils # (Manual) Basophils # (Manual) Metamyelocytes # Myelocytes # Promyelocytes # Blast Cells # WBC Morphology Hypersegmented Neuts Hyposegmented Neuts Hypogranular Neuts Smudge Cells Toxic Granulation Toxic Vacuolation Dohle Bodies Pelger-Huet Anomaly Magda Rods Platelet Estimate Clumped Platelets Plt Clumps, EDTA Large Platelets Giant Platelets Platelet Satelliting Plt Morphology Comment RBC Morphology Dimorphic RBCs Polychromasia Hypochromasia Poikilocytosis Anisocytosis Microcytosis Macrocytosis Spherocytes Pappenheimer Bodies Sickle Cells Target Cells Tear Drop Cells Ovalocytes Stomatocytes Helmet Cells Stewart-[place]pl[place] Bodies Lena Rings Belden Cells Bite Cells Crenated Cell Elliptocytes Acanthocytes (Spur) Rouleaux Hemoglobin C Crystals Schistocytes Malaria parasites Janes Bodies Hem Pathologist Commnt Sodium 150 H Potassium 3.0 L Chloride 109.0 H Carbon Dioxide 30 Anion Gap 14 BUN 41 H Creatinine 0.5 L Estimated GFR > 60 BUN/Creatinine Ratio 82 Glucose 158 H POC Glucose 176 H 163 H Calcium 7.6 L 11/16/18 11/17/18 11/17/18 23:22 04:25 04:25 WBC 16.2 H RBC 2.72 L Hgb 8.7 L Hct 25.9 L MCV 95 MCH 32 MCHC 34 RDW 15.6 H Plt Count 408 Add Manual Diff Complete Total Counted 100 Seg Neutrophils % Hog Cutter Seg Neuts % (Manual) 97.0 H Band Neutrophils % 0 Lymphocytes % (Manual) 1.0 L Reactive Lymphs % (Man) 0 Monocytes % (Manual) 0 Eosinophils % (Manual) 0 Basophils % (Manual) 0 Metamyelocytes % 1.0 Myelocytes % 1.0 Promyelocytes % 0 Blast Cells % 0 Nucleated RBC % Not Reportable Seg Neutrophils # Man 15.7 H Band Neutrophils # 0.0 Lymphocytes # (Manual) 0.2 L Abs React Lymphs (Man) 0.0 Monocytes # (Manual) 0.0 Eosinophils # (Manual) 0.0 Basophils # (Manual) 0.0 Metamyelocytes # 0.2 Myelocytes # 0.2 Promyelocytes # 0.0 Blast Cells # 0.0 WBC Morphology Not Reportable Hypersegmented Neuts Not Reportable Hyposegmented Neuts Not Reportable Hypogranular Neuts Not Reportable Smudge Cells Not Reportable Toxic Granulation Not Reportable Toxic Vacuolation Not Reportable Dohle Bodies Not Reportable Pelger-Huet Anomaly Not Reportable Magda Rods Not Reportable Platelet Estimate Consistent w auto Clumped Platelets Not Reportable Plt Clumps, EDTA Not Reportable Large Platelets Not Reportable Giant Platelets Not Reportable Platelet Satelliting Not Reportable Plt Morphology Comment Not Reportable RBC Morphology Not Reportable Dimorphic RBCs Not Reportable Polychromasia Not Reportable Hypochromasia 1+ Poikilocytosis Not Reportable Anisocytosis Not Reportable Microcytosis Not Reportable Macrocytosis Not Reportable Spherocytes Not Reportable Pappenheimer Bodies Not Reportable Sickle Cells Not Reportable Target Cells 1+ Tear Drop Cells Not Reportable Ovalocytes Not Reportable Stomatocytes Few Helmet Cells Not Reportable Stewart-[place] Bodies Not Reportable Lena Rings Not Reportable Belden Cells Not Reportable Bite Cells Not Reportable Crenated Cell Not Reportable Elliptocytes Not Reportable Acanthocytes (Spur) Not Reportable Rouleaux Not Reportable Hemoglobin C Crystals Not Reportable Schistocytes Not Reportable Malaria parasites Not Reportable Janes Bodies Not Reportable Hem Pathologist Commnt No Sodium 152 H Potassium 3.4 L Chloride 109.9 H Carbon Dioxide 32 H Anion Gap 14 BUN 40 H Creatinine 0.5 L Estimated GFR > 60 BUN/Creatinine Ratio 80 Glucose 155 H POC Glucose 230 H Calcium 7.9 L 11/17/18 11/17/18 04:25 05:56 WBC RBC Hgb Hct MCV MCH MCHC RDW Plt Count Add Manual Diff Total Counted Seg Neutrophils % Seg Neuts % (Manual) Band Neutrophils % Lymphocytes % (Manual) Reactive Lymphs % (Man) Monocytes % (Manual) Eosinophils % (Manual) Basophils % (Manual) Metamyelocytes % Myelocytes % Promyelocytes % Blast Cells % Nucleated RBC % Seg Neutrophils # Man Band Neutrophils # Lymphocytes # (Manual) Abs React Lymphs (Man) Monocytes # (Manual) Eosinophils # (Manual) Basophils # (Manual) Metamyelocytes # Myelocytes # Promyelocytes # Blast Cells # WBC Morphology TNR Hypersegmented Neuts Hyposegmented Neuts Hypogranular Neuts Smudge Cells Toxic Granulation Toxic Vacuolation Dohle Bodies Pelger-Huet Anomaly Magda Rods Platelet Estimate Clumped Platelets Plt Clumps, EDTA Large Platelets Giant Platelets Platelet Satelliting Plt Morphology Comment RBC Morphology Dimorphic RBCs Polychromasia Hypochromasia Poikilocytosis Anisocytosis Microcytosis Macrocytosis Spherocytes Pappenheimer Bodies Sickle Cells Target Cells Tear Drop Cells Ovalocytes Stomatocytes Helmet Cells Stewart-[place] Bodies Lena Rings Belden Cells Bite Cells Crenated Cell Elliptocytes Acanthocytes (Spur) Rouleaux Hemoglobin C Crystals Schistocytes Malaria parasites Janes Bodies Hem Pathologist Commnt Sodium Potassium Chloride Carbon Dioxide Anion Gap BUN Creatinine Estimated GFR BUN/Creatinine Ratio Glucose POC Glucose 173 H Calcium Medications & Allergies - Medications Allergies/Adverse Reactions: Allergies Sulfa (Sulfonamide Antibiotics) Allergy (Intermediate, Verified 10/22/18 16:30) Rash metoclopramide HCl [From Reglan] Allergy (Verified 10/22/18 16:30) Dizziness prochlorperazine [From Compazine] Allergy (Verified 10/22/18 16:30) NECK STIFFNESS Home Medications: Home Medications Medication Instructions Recorded Confirmed Last Taken Type Ondansetron 4 mg PO Q6HR PRN 12/05/16 10/22/18 10/29/17 History Propranolol HCl [Propranolol HCl 60 mg PO DAILY 12/05/16 10/22/18 10/30/17 22:00 History ER] QUEtiapine [SEROquel] 300 mg PO DAILY 12/05/16 10/22/18 10/30/17 History Lasix TAB 40 mg PO PRN PRN 12/07/16 10/22/18 10/24/17 History Percocet 10/325 mg 1 tab PO PRN PRN 12/07/16 10/22/18 10/30/17 History Albuterol Sulfate [Albuterol 0.63% 0.63 mg IH TID PRN 10/22/17 10/22/18 10/29/17 History NEBS] Active Medications: Generic Name Dose Route Start Last Admin Trade Name Freq PRN Reason Stop Dose Admin Acetaminophen 650 mg 10/22/18 20:10 11/16/18 09:51 Tylenol PO 650 mg Q4H PRN Administration Pain MILD(1-3)/Fever >100.5/PORTER Albuterol 2.5 mg 10/22/18 20:14 11/05/18 16:35 Proventil IH 2.5 mg Q4HRT PRN Administration Shortness Of Breath Lipase/Protease/Amylase 1 each 11/05/18 10:13 Gwendolyn Simpson 10,500 Unit FEEDTUBE PRN PRN For Clogged Feeding Tube Arformoterol Tartrate 15 mcg 11/05/18 20:00 11/16/18 20:11 Brovankayce Nebu IH 15 mcg Q12HRT RICK Administration Budesonide 0.5 mg 10/23/18 08:00 11/16/18 20:11 Pulmicort IH 0.5 mg Q12HRT RICK Administration Dextrose 50 ml 10/26/18 23:40 10/27/18 00:20 D50w (25gm) Syringe IV 50 ml PRN PRN Administration Hypoglycemia Enoxaparin Sodium 40 mg 11/14/18 22:00 11/16/18 22:32 Lovenox SUB-Q 40 mg QDAY@2200 RICK Administration Furosemide 20 mg 11/13/18 18:00 11/17/18 06:26 Lasix IV 20 mg 0600,1800 RICK Administration Gabapentin 600 mg 11/12/18 10:00 11/17/18 06:26 Neurontin PO 600 mg Q8HR RICK Administration Hydralazine HCl 10 mg 10/22/18 21:41 11/07/18 00:04 Apresoline IV 10 mg Q4HR PRN Administration Blood Pressure Hydromorphone HCl 1 mg 11/12/18 09:55 11/17/18 04:09 Dilaudid IV 1 mg Q4H PRN Administration Pain , Severe (7-10) Hydrophilic Ointment 1 applic 11/07/18 09:14 Vaseline Lip Therapy TP Q2HR PRN Dry Lips Insulin Human Isoph/Insulin Regular 12 unit 11/10/18 22:00 11/16/18 22:33 Humulin 70/30 SUB-Q 12 unit BID RICK Administration Insulin Human Lispro 0 unit 10/29/18 12:00 11/17/18 06:26 Humalog SUB-Q 2 unit Q6HR RICK Administration Protocol Lorazepam 1 mg 11/06/18 11:00 11/16/18 19:23 Ativan IV 1 mg Q6H PRN Administration Anxiety Methylprednisolone Sodium Succinate 40 mg 11/13/18 14:00 11/17/18 06:26 Solu-Medrol IV 40 mg Q8H RICK Administration Metoprolol Tartrate 5 mg 11/13/18 13:00 11/17/18 00:25 Lopressor IV 5 mg Q6H RICK Administration Multi-Ingred Cream/Lotion/Oil/Oint 1 applic 11/07/18 09:14 Artificial Tears Ophth Oint OU Q4HR PRN Dry Eye(s) Ondansetron HCl 4 mg 10/24/18 10:05 10/25/18 17:26 Zofran IV 4 mg Q6H PRN Administration Nausea And Vomiting Oxycodone/Acetaminophen 1 tab 11/05/18 11:16 11/14/18 16:45 Percocet 5/325 PO 1 tab Q6H PRN Administration Pain, Moderate (4-6) Pantoprazole Sodium 40 mg 11/05/18 10:00 11/16/18 09:52 Protonix IV 40 mg DAILY RICK Administration Phenol 1 spray 10/28/18 10:16 Chloraseptic MM PRN PRN Sore Throat Promethazine HCl 25 mg 10/22/18 20:10 10/22/18 21:21 Phenergan MN 25 mg Q6H PRN Administration Nausea And Vomiting Quetiapine Fumarate 300 mg 11/12/18 10:00 11/16/18 09:51 Seroquel PO 300 mg DAILY RICK Administration Simple Syrup 15 ml 11/05/18 10:13 Simple Syrup FEEDTUBE PRN PRN Hypoglycemia Simple Syrup 30 ml 11/05/18 10:13 Simple Syrup FEEDTUBE PRN PRN Hypoglycemia Sodium Bicarbonate 325 mg 11/05/18 10:13 Sodium Bicarbonate FEEDTUBE PRN PRN For Clogged Feeding Tube Sodium Chloride 10 ml 10/22/18 22:00 11/16/18 22:33 Sodium Chloride Flush Syringe 10 Ml IV 10 ml BID RICK Administration Sodium Chloride 10 ml 10/22/18 20:10 11/09/18 14:29 Sodium Chloride Flush Syringe 10 Ml IV 10 ml PRN PRN Administration LINE FLUSH
[2018-11-17] MEDS: BROVANA NEBU IH SCH ×2 (07:48→20:47)
[2018-11-17] MEDS: PULMICORT IH SCH ×2 (07:48→20:47)
[2018-11-17] MEDS ORDERED: POTASSIUM CHLORIDE FEEDTUBE ONE (08:00)
[2018-11-17] MEDS: PREVACID SOLUTAB FEEDTUBE SCH (09:14)
[2018-11-17] MEDS: PERCOCET 5/325 PO PRN ×2 (09:46→17:44)
--- NOTE | 2018-11-17 10:09 | Progress Note ---
Assessment and Plan 73 y/o female with bowel obstruction and now acute respiratory failure with hypercapnea, likely multifactorial from pain medications, anti-psychotic therapy and inability to take deep breaths for ventilation, now with fungemia from picc line placement. 1. Patient trached now and doing daily PSV trials. Will continue 2. Finished antifungal therapy on yesterday. 3. Continue TPN, and trickle tube feeds 4. Dropped steroids to 20q8 today. 5. CM aware of need for snf placement post trach. Referrals have been sent out. 6. Stopping lasix today. 7. Will order PT. CCT 31 minutes. Subjective Date of service: 11/17/18 Principal diagnosis: anemia Interval history: Awake and alert. Tolerated PSV for about 4 hours yesterday and placed back on rate secondary to fatigue. Still complains of anxiety. at bedside and was asking about PT. Objective Vital Signs - 12hr 11/16/18 11/16/18 11/16/18 22:30 23:00 23:30 Temperature Pulse Rate 99 H 98 H 89 Pulse Rate [ Anterior Bilateral Throughout] Respiratory 20 20 20 Rate Respiratory Rate [Anterior Bilateral Throughout] Blood Pressure 117/47 120/45 118/46 O2 Sat by Pulse 98 99 99 Oximetry O2 Sat by Pulse Oximetry [ Assessment] 11/17/18 11/17/18 11/17/18 00:00 00:25 00:28 Temperature 98.9 F Pulse Rate 99 H 99 H 99 H Pulse Rate [ Anterior Bilateral Throughout] Respiratory 18 Rate Respiratory Rate [Anterior Bilateral Throughout] Blood Pressure 121/48 121/48 121/48 O2 Sat by Pulse 99 99 Oximetry O2 Sat by Pulse Oximetry [ Assessment] 11/17/18 11/17/18 11/17/18 00:30 01:00 01:30 Temperature Pulse Rate 82 90 91 H Pulse Rate [ Anterior Bilateral Throughout] Respiratory 17 22 19 Rate Respiratory Rate [Anterior Bilateral Throughout] Blood Pressure 113/41 119/40 118/39 O2 Sat by Pulse 99 99 99 Oximetry O2 Sat by Pulse Oximetry [ Assessment] 11/17/18 11/17/18 11/17/18 02:00 02:30 03:00 Temperature Pulse Rate 92 H 93 H 96 H Pulse Rate [ Anterior Bilateral Throughout] Respiratory 22 19 20 Rate Respiratory Rate [Anterior Bilateral Throughout] Blood Pressure 122/35 104/33 116/41 O2 Sat by Pulse 99 99 99 Oximetry O2 Sat by Pulse 98 Oximetry [ Assessment] 11/17/18 11/17/18 11/17/18 03:30 04:00 04:30 Temperature 99.0 F Pulse Rate 101 H 104 H 108 H Pulse Rate [ Anterior Bilateral Throughout] Respiratory 19 22 17 Rate Respiratory Rate [Anterior Bilateral Throughout] Blood Pressure 114/46 104/30 104/30 O2 Sat by Pulse 99 98 98 Oximetry O2 Sat by Pulse Oximetry [ Assessment] 11/17/18 11/17/18 11/17/18 04:36 05:00 05:30 Temperature Pulse Rate 108 H 113 H 107 H Pulse Rate [ Anterior Bilateral Throughout] Respiratory 17 16 Rate Respiratory Rate [Anterior Bilateral Throughout] Blood Pressure 114/46 122/64 109/38 O2 Sat by Pulse 99 99 99 Oximetry O2 Sat by Pulse Oximetry [ Assessment] 11/17/18 11/17/18 11/17/18 06:00 06:30 07:00 Temperature Pulse Rate 109 H 106 H 106 H Pulse Rate [ Anterior Bilateral Throughout] Respiratory 17 15 16 Rate Respiratory Rate [Anterior Bilateral Throughout] Blood Pressure 116/47 124/50 109/59 O2 Sat by Pulse 99 100 100 Oximetry O2 Sat by Pulse Oximetry [ Assessment] 11/17/18 11/17/18 11/17/18 07:30 07:45 08:00 Temperature Pulse Rate 108 H 111 H Pulse Rate [ 110 H Anterior Bilateral Throughout] Respiratory 16 16 Rate Respiratory 13 Rate [Anterior Bilateral Throughout] Blood Pressure 128/62 123/59 O2 Sat by Pulse 99 100 Oximetry O2 Sat by Pulse Oximetry [ Assessment] 11/17/18 08:30 Temperature Pulse Rate 115 H Pulse Rate [ Anterior Bilateral Throughout] Respiratory 15 Rate Respiratory Rate [Anterior Bilateral Throughout] Blood Pressure 126/64 O2 Sat by Pulse 99 Oximetry O2 Sat by Pulse Oximetry [ Assessment] Constitutional: alert Eyes: non-icteric ENT: other (trach in position) Neck: supple, no JVD, other (trach is midline) Effort: mildly labored Ascultation: Bilateral: clear, diminished breath sounds, wheezes (sporadic), rales, rhonchi (sporadic) Percussion: Bilateral: not dull Cardiovascular: regular rate and rhythm Gastrointestinal: hypoactive bowel sounds, non-tender, non-distended, other Integumentary: normal Extremities: no edema Neurologic: normal mental status, non-focal exam Psychiatric: anxious CBC and BMP: 11/17/18 04:25 11/17/18 04:25 ABG, PT/INR, D-dimer: ABG POC ABG pH 7.446 (7.35-7.45) 11/15/18 11:33 POC ABG pCO2 46.1 (35-45) H 11/15/18 11:33 POC ABG pO2 107 (80-105) H 11/15/18 11:33 POC ABG HCO3 31.8 (22-26 mml/L) 11/15/18 11:33 POC ABG Total CO2 33 (23-27mmol/L) 11/15/18 11:33 POC ABG O2 Sat 98 11/15/18 11:33 Abnormal lab findings: Abnormal Labs 10/22/18 10/22/18 10/22/18 15:31 15:54 15:54 WBC 11.5 H RBC 5.35 H Hgb 17.4 H Hct 50.3 H MCV MCH 33 H MCHC 35 H RDW Plt Count Lymph % (Auto) 12.6 L Bailey % (Auto) 14.8 H Lymph # Bailey # 1.7 H Seg Neutrophils % 72.5 H Seg Neuts % (Manual) Lymphocytes % (Manual) Seg Neutrophils # 8.3 H Seg Neutrophils # Man Lymphocytes # (Manual) POC ABG pH POC ABG pCO2 POC ABG pO2 Sodium 134 L Potassium Chloride 88.1 L Carbon Dioxide BUN 51 H Creatinine 2.1 H Glucose 166 H POC Glucose Calcium Phosphorus Magnesium Iron TIBC Ferritin Alkaline Phosphatase NT-Pro-B Natriuret Pep Total Protein Albumin 3.4 L Lipase 10 L Free T4 10/23/18 10/23/18 10/23/18 04:32 04:32 10:53 WBC RBC Hgb Hct MCV MCH MCHC RDW Plt Count Lymph % (Auto) 10.2 L Bailey % (Auto) 14.7 H Lymph # 0.7 L Bailey # 1.0 H Seg Neutrophils % 74.9 H Seg Neuts % (Manual) Lymphocytes % (Manual) Seg Neutrophils # Seg Neutrophils # Man Lymphocytes # (Manual) POC ABG pH POC ABG pCO2 POC ABG pO2 Sodium Potassium 3.1 L D 3.5 L Chloride Carbon Dioxide BUN 41 H 37 H Creatinine Glucose 111 H 110 H POC Glucose Calcium 8.1 L 8.1 L Phosphorus Magnesium Iron TIBC Ferritin Alkaline Phosphatase NT-Pro-B Natriuret Pep Total Protein Albumin Lipase Free T4 10/24/18 10/24/18 10/25/18 05:34 05:34 04:51 WBC RBC Hgb Hct MCV MCH MCHC RDW Plt Count Lymph % (Auto) Bailey % (Auto) Lymph # Bailey # Seg Neutrophils % Seg Neuts % (Manual) Lymphocytes % (Manual) Seg Neutrophils # Seg Neutrophils # Man Lymphocytes # (Manual) POC ABG pH POC ABG pCO2 POC ABG pO2 Sodium Potassium 3.2 L 3.1 L Chloride 109.8 H 114.2 H Carbon Dioxide 17 L D BUN 21 H Creatinine Glucose 134 H 171 H POC Glucose Calcium 7.7 L 7.0 L Phosphorus 0.80 L* Magnesium Iron TIBC Ferritin Alkaline Phosphatase NT-Pro-B Natriuret Pep Total Protein Albumin Lipase Free T4 10/25/18 10/26/18 10/26/18 06:07 02:58 04:57 WBC RBC Hgb Hct MCV 99 H MCH 33 H MCHC RDW Plt Count Lymph % (Auto) Bailey % (Auto) Lymph # Bailey # Seg Neutrophils % Seg Neuts % (Manual) Lymphocytes % (Manual) Seg Neutrophils # Seg Neutrophils # Man Lymphocytes # (Manual) POC ABG pH 7.090 L 7.320 L POC ABG pCO2 65.0 H 32.8 L POC ABG pO2 76 L Sodium Potassium Chloride Carbon Dioxide BUN Creatinine Glucose POC Glucose Calcium Phosphorus Magnesium Iron TIBC Ferritin Alkaline Phosphatase NT-Pro-B Natriuret Pep Total Protein Albumin Lipase Free T4 10/26/18 10/26/18 10/26/18 06:03 06:03 11:52 WBC 23.8 H RBC Hgb 15.4 H Hct 46.1 H D MCV MCH MCHC RDW Plt Count Lymph % (Auto) Bailey % (Auto) Lymph # Bailey # Seg Neutrophils % Seg Neuts % (Manual) Lymphocytes % (Manual) Seg Neutrophils # Seg Neutrophils # Man Lymphocytes # (Manual) POC ABG pH POC ABG pCO2 POC ABG pO2 Sodium Potassium Chloride 109.5 H Carbon Dioxide 18 L BUN Creatinine Glucose 128 H POC Glucose 117 H Calcium 8.3 L D Phosphorus Magnesium Iron TIBC Ferritin Alkaline Phosphatase NT-Pro-B Natriuret Pep Total Protein Albumin Lipase Free T4 10/26/18 10/26/18 10/26/18 13:54 17:10 17:32 WBC RBC Hgb Hct MCV MCH MCHC RDW Plt Count Lymph % (Auto) Bailey % (Auto) Lymph # Bailey # Seg Neutrophils % Seg Neuts % (Manual) Lymphocytes % (Manual) Seg Neutrophils # Seg Neutrophils # Man Lymphocytes # (Manual) POC ABG pH 7.215 L POC ABG pCO2 31.8 L POC ABG pO2 69 L 204 H Sodium Potassium 3.0 L D Chloride 114.5 H Carbon Dioxide 21 L BUN Creatinine Glucose POC Glucose Calcium 7.6 L Phosphorus Magnesium 1.40 L Iron TIBC Ferritin Alkaline Phosphatase NT-Pro-B Natriuret Pep Total Protein Albumin Lipase Free T4 10/26/18 10/27/18 10/27/18 23:13 00:40 01:09 WBC RBC Hgb Hct MCV MCH MCHC RDW Plt Count Lymph % (Auto) Bailey % (Auto) Lymph # Bailey # Seg Neutrophils % Seg Neuts % (Manual) Lymphocytes % (Manual) Seg Neutrophils # Seg Neutrophils # Man Lymphocytes # (Manual) POC ABG pH POC ABG pCO2 POC ABG pO2 Sodium Potassium 3.4 L Chloride 115.0 H Carbon Dioxide 14 L D BUN Creatinine Glucose 228 H POC Glucose 48 L 264 H Calcium 7.1 L Phosphorus Magnesium Iron TIBC Ferritin Alkaline Phosphatase NT-Pro-B Natriuret Pep Total Protein Albumin Lipase Free T4 10/27/18 10/27/18 10/27/18 05:00 05:00 05:16 WBC 22.5 H RBC Hgb 14.7 H Hct 44.4 H MCV MCH MCHC RDW Plt Count Lymph % (Auto) Bailey % (Auto) Lymph # Bailey # Seg Neutrophils % Seg Neuts % (Manual) Lymphocytes % (Manual) Seg Neutrophils # Seg Neutrophils # Man Lymphocytes # (Manual) POC ABG pH 7.304 L POC ABG pCO2 POC ABG pO2 116 H Sodium Potassium Chloride 118.4 H Carbon Dioxide 16 L BUN Creatinine Glucose 123 H POC Glucose Calcium 7.7 L Phosphorus Magnesium 2.60 H Iron TIBC Ferritin Alkaline Phosphatase NT-Pro-B Natriuret Pep Total Protein Albumin Lipase Free T4 10/28/18 10/28/18 10/28/18 04:25 04:25 15:37 WBC 23.5 H RBC Hgb Hct MCV MCH MCHC RDW Plt Count Lymph % (Auto) Bailey % (Auto) Lymph # Bailey # Seg Neutrophils % Seg Neuts % (Manual) Lymphocytes % (Manual) Seg Neutrophils # Seg Neutrophils # Man Lymphocytes # (Manual) POC ABG pH POC ABG pCO2 POC ABG pO2 Sodium 147 H Potassium Chloride 116.9 H Carbon Dioxide 16 L BUN 23 H Creatinine Glucose POC Glucose 114 H Calcium 8.0 L Phosphorus Magnesium Iron TIBC Ferritin Alkaline Phosphatase NT-Pro-B Natriuret Pep Total Protein Albumin Lipase Free T4 10/28/18 10/28/18 10/28/18 20:33 22:07 23:31 WBC RBC Hgb Hct MCV MCH MCHC RDW Plt Count Lymph % (Auto) Bailey % (Auto) Lymph # Bailey # Seg Neutrophils % Seg Neuts % (Manual) Lymphocytes % (Manual) Seg Neutrophils # Seg Neutrophils # Man Lymphocytes # (Manual) POC ABG pH 7.202 L 7.235 L POC ABG pCO2 POC ABG pO2 71 L Sodium Potassium Chloride Carbon Dioxide BUN Creatinine Glucose POC Glucose 207 H Calcium Phosphorus Magnesium Iron TIBC Ferritin Alkaline Phosphatase NT-Pro-B Natriuret Pep Total Protein Albumin Lipase Free T4 10/29/18 10/29/18 10/29/18 04:30 04:30 05:26 WBC 21.1 H RBC Hgb Hct MCV MCH MCHC RDW Plt Count Lymph % (Auto) Bailey % (Auto) Lymph # Bailey # Seg Neutrophils % Seg Neuts % (Manual) 97.0 H Lymphocytes % (Manual) 3.0 L Seg Neutrophils # Seg Neutrophils # Man 20.5 H Lymphocytes # (Manual) 0.6 L POC ABG pH 7.305 L POC ABG pCO2 30.5 L POC ABG pO2 75 L Sodium 147 H Potassium 3.5 L Chloride 120.0 H Carbon Dioxide 17 L BUN 30 H Creatinine Glucose 246 H POC Glucose Calcium 7.9 L Phosphorus Magnesium Iron TIBC Ferritin Alkaline Phosphatase NT-Pro-B Natriuret Pep Total Protein Albumin Lipase Free T4 10/29/18 10/29/18 10/29/18 05:36 11:39 18:00 WBC RBC Hgb Hct MCV MCH MCHC RDW Plt Count Lymph % (Auto) Bailey % (Auto) Lymph # Bailey # Seg Neutrophils % Seg Neuts % (Manual) Lymphocytes % (Manual) Seg Neutrophils # Seg Neutrophils # Man Lymphocytes # (Manual) POC ABG pH POC ABG pCO2 POC ABG pO2 Sodium Potassium Chloride Carbon Dioxide BUN Creatinine Glucose POC Glucose 204 H 224 H 221 H Calcium Phosphorus Magnesium Iron TIBC Ferritin Alkaline Phosphatase NT-Pro-B Natriuret Pep Total Protein Albumin Lipase Free T4 10/29/18 10/30/18 10/30/18 23:17 05:00 05:00 WBC 21.4 H RBC Hgb Hct MCV MCH MCHC RDW Plt Count 134 L Lymph % (Auto) Bailey % (Auto) Lymph # Bailey # Seg Neutrophils % Seg Neuts % (Manual) 97.0 H Lymphocytes % (Manual) 3.0 L Seg Neutrophils # Seg Neutrophils # Man 20.8 H Lymphocytes # (Manual) 0.6 L POC ABG pH POC ABG pCO2 POC ABG pO2 Sodium 148 H Potassium 3.1 L Chloride 120.3 H Carbon Dioxide 18 L BUN 31 H Creatinine Glucose 205 H POC Glucose 181 H Calcium 8.0 L Phosphorus Magnesium Iron TIBC Ferritin Alkaline Phosphatase NT-Pro-B Natriuret Pep Total Protein Albumin Lipase Free T4 10/30/18 10/30/18 10/30/18 05:14 05:25 05:26 WBC RBC Hgb Hct MCV MCH MCHC RDW Plt Count Lymph % (Auto) Bailey % (Auto) Lymph # Bailey # Seg Neutrophils % Seg Neuts % (Manual) Lymphocytes % (Manual) Seg Neutrophils # Seg Neutrophils # Man Lymphocytes # (Manual) POC ABG pH 7.296 L 7.245 L POC ABG pCO2 31.1 L POC ABG pO2 54 L 59 L Sodium Potassium Chloride Carbon Dioxide BUN Creatinine Glucose POC Glucose 199 H Calcium Phosphorus Magnesium Iron TIBC Ferritin Alkaline Phosphatase NT-Pro-B Natriuret Pep Total Protein Albumin Lipase Free T4 10/30/18 10/30/18 10/31/18 13:23 18:25 00:22 WBC RBC Hgb Hct MCV MCH MCHC RDW Plt Count Lymph % (Auto) Bailey % (Auto) Lymph # Bailey # Seg Neutrophils % Seg Neuts % (Manual) Lymphocytes % (Manual) Seg Neutrophils # Seg Neutrophils # Man Lymphocytes # (Manual) POC ABG pH POC ABG pCO2 POC ABG pO2 Sodium Potassium Chloride Carbon Dioxide BUN Creatinine Glucose POC Glucose 146 H 158 H 162 H Calcium Phosphorus Magnesium Iron TIBC Ferritin Alkaline Phosphatase NT-Pro-B Natriuret Pep Total Protein Albumin Lipase Free T4 10/31/18 10/31/18 10/31/18 04:39 05:14 07:05 WBC RBC Hgb Hct MCV MCH MCHC RDW Plt Count Lymph % (Auto) Bailey % (Auto) Lymph # Bailey # Seg Neutrophils % Seg Neuts % (Manual) Lymphocytes % (Manual) Seg Neutrophils # Seg Neutrophils # Man Lymphocytes # (Manual) POC ABG pH 7.238 L POC ABG pCO2 POC ABG pO2 Sodium Potassium Chloride 115.8 H Carbon Dioxide 18 L BUN 39 H Creatinine 1.3 H Glucose 167 H POC Glucose 145 H Calcium 7.5 L Phosphorus 1.80 L Magnesium Iron TIBC Ferritin Alkaline Phosphatase NT-Pro-B Natriuret Pep Total Protein Albumin Lipase Free T4 10/31/18 10/31/18 10/31/18 10:43 12:03 17:00 WBC RBC Hgb Hct MCV MCH MCHC RDW Plt Count Lymph % (Auto) Bailey % (Auto) Lymph # Bailey # Seg Neutrophils % Seg Neuts % (Manual) Lymphocytes % (Manual) Seg Neutrophils # Seg Neutrophils # Man Lymphocytes # (Manual) POC ABG pH 7.304 L POC ABG pCO2 33.3 L POC ABG pO2 Sodium Potassium Chloride Carbon Dioxide BUN Creatinine Glucose POC Glucose 159 H Calcium Phosphorus Magnesium Iron TIBC Ferritin Alkaline Phosphatase NT-Pro-B Natriuret Pep Total Protein Albumin Lipase Free T4 0.49 L 10/31/18 11/01/18 11/01/18 17:00 00:44 05:27 WBC RBC Hgb Hct MCV MCH MCHC RDW Plt Count Lymph % (Auto) Bailey % (Auto) Lymph # Bailey # Seg Neutrophils % Seg Neuts % (Manual) Lymphocytes % (Manual) Seg Neutrophils # Seg Neutrophils # Man Lymphocytes # (Manual) POC ABG pH 7.248 L POC ABG pCO2 34.8 L POC ABG pO2 135 H Sodium Potassium Chloride Carbon Dioxide BUN Creatinine Glucose POC Glucose 127 H 118 H Calcium Phosphorus Magnesium Iron TIBC Ferritin Alkaline Phosphatase NT-Pro-B Natriuret Pep Total Protein Albumin Lipase Free T4 11/01/18 11/01/18 11/01/18 06:40 06:40 06:53 WBC 18.9 H RBC 3.63 L Hgb Hct MCV MCH MCHC RDW Plt Count 64 L Lymph % (Auto) Bailey % (Auto) Lymph # Bailey # Seg Neutrophils % Seg Neuts % (Manual) 98.0 H Lymphocytes % (Manual) 1.0 L Seg Neutrophils # Seg Neutrophils # Man 18.5 H Lymphocytes # (Manual) 0.2 L POC ABG pH POC ABG pCO2 POC ABG pO2 Sodium Potassium 3.5 L Chloride 114.2 H Carbon Dioxide 17 L BUN 49 H Creatinine Glucose 107 H POC Glucose 127 H Calcium 7.3 L Phosphorus Magnesium 1.60 L Iron TIBC Ferritin Alkaline Phosphatase NT-Pro-B Natriuret Pep Total Protein Albumin Lipase Free T4 11/01/18 11/01/18 11/01/18 11:49 13:13 17:24 WBC RBC Hgb Hct MCV MCH MCHC RDW Plt Count Lymph % (Auto) Bailey % (Auto) Lymph # Bailey # Seg Neutrophils % Seg Neuts % (Manual) Lymphocytes % (Manual) Seg Neutrophils # Seg Neutrophils # Man Lymphocytes # (Manual) POC ABG pH POC ABG pCO2 POC ABG pO2 182 H Sodium Potassium Chloride Carbon Dioxide BUN Creatinine Glucose POC Glucose 134 H 111 H Calcium Phosphorus Magnesium Iron TIBC Ferritin Alkaline Phosphatase NT-Pro-B Natriuret Pep Total Protein Albumin Lipase Free T4 11/01/18 11/02/18 11/02/18 23:07 04:32 05:00 WBC RBC Hgb Hct MCV MCH MCHC RDW Plt Count Lymph % (Auto) Bailey % (Auto) Lymph # Bailey # Seg Neutrophils % Seg Neuts % (Manual) Lymphocytes % (Manual) Seg Neutrophils # Seg Neutrophils # Man Lymphocytes # (Manual) POC ABG pH 7.244 L POC ABG pCO2 33.2 L POC ABG pO2 123 H Sodium Potassium 3.0 L Chloride 114.1 H Carbon Dioxide 15 L BUN 47 H Creatinine Glucose 127 H POC Glucose 123 H Calcium 7.7 L Phosphorus Magnesium Iron TIBC Ferritin Alkaline Phosphatase NT-Pro-B Natriuret Pep Total Protein Albumin Lipase Free T4 11/02/18 11/02/18 11/02/18 05:00 05:29 11:27 WBC RBC Hgb Hct MCV MCH MCHC RDW Plt Count Lymph % (Auto) Bailey % (Auto) Lymph # Bailey # Seg Neutrophils % Seg Neuts % (Manual) Lymphocytes % (Manual) Seg Neutrophils # Seg Neutrophils # Man Lymphocytes # (Manual) POC ABG pH POC ABG pCO2 POC ABG pO2 Sodium Potassium Chloride Carbon Dioxide BUN Creatinine Glucose POC Glucose 118 H 137 H Calcium Phosphorus Magnesium 1.60 L Iron TIBC Ferritin Alkaline Phosphatase NT-Pro-B Natriuret Pep Total Protein Albumin Lipase Free T4 11/02/18 11/02/18 11/03/18 12:53 23:35 04:14 WBC RBC Hgb Hct MCV MCH MCHC RDW Plt Count Lymph % (Auto) Bailey % (Auto) Lymph # Bailey # Seg Neutrophils % Seg Neuts % (Manual) Lymphocytes % (Manual) Seg Neutrophils # Seg Neutrophils # Man Lymphocytes # (Manual) POC ABG pH POC ABG pCO2 30.3 L POC ABG pO2 134 H 129 H Sodium Potassium Chloride Carbon Dioxide BUN Creatinine Glucose POC Glucose 115 H Calcium Phosphorus Magnesium Iron TIBC Ferritin Alkaline Phosphatase NT-Pro-B Natriuret Pep Total Protein Albumin Lipase Free T4 11/03/18 11/03/18 11/03/18 05:34 11:30 11:30 WBC 16.4 H RBC 3.50 L Hgb Hct MCV MCH MCHC RDW Plt Count 136 L D Lymph % (Auto) Bailey % (Auto) Lymph # Bailey # Seg Neutrophils % Seg Neuts % (Manual) 97.0 H Lymphocytes % (Manual) 2.0 L Seg Neutrophils # Seg Neutrophils # Man 15.9 H Lymphocytes # (Manual) 0.3 L POC ABG pH POC ABG pCO2 POC ABG pO2 Sodium Potassium 3.1 L Chloride 110.4 H Carbon Dioxide 17 L BUN 41 H Creatinine Glucose 129 H POC Glucose 116 H Calcium 7.7 L Phosphorus Magnesium 1.60 L Iron TIBC Ferritin Alkaline Phosphatase NT-Pro-B Natriuret Pep Total Protein 4.2 L Albumin 1.2 L Lipase Free T4 11/03/18 11/03/18 11/03/18 12:01 17:35 21:37 WBC RBC Hgb Hct MCV MCH MCHC RDW Plt Count Lymph % (Auto) Bailey % (Auto) Lymph # Bailey # Seg Neutrophils % Seg Neuts % (Manual) Lymphocytes % (Manual) Seg Neutrophils # Seg Neutrophils # Man Lymphocytes # (Manual) POC ABG pH POC ABG pCO2 POC ABG pO2 Sodium Potassium Chloride Carbon Dioxide BUN Creatinine Glucose POC Glucose 132 H 132 H 126 H Calcium Phosphorus Magnesium Iron TIBC Ferritin Alkaline Phosphatase NT-Pro-B Natriuret Pep Total Protein Albumin Lipase Free T4 11/03/18 11/04/18 11/04/18 23:30 05:14 05:15 WBC RBC Hgb Hct MCV MCH MCHC RDW Plt Count Lymph % (Auto) Bailey % (Auto) Lymph # Bailey # Seg Neutrophils % Seg Neuts % (Manual) Lymphocytes % (Manual) Seg Neutrophils # Seg Neutrophils # Man Lymphocytes # (Manual) POC ABG pH POC ABG pCO2 30.9 L POC ABG pO2 192 H Sodium Potassium Chloride Carbon Dioxide BUN Creatinine Glucose POC Glucose 115 H 123 H Calcium Phosphorus Magnesium Iron TIBC Ferritin Alkaline Phosphatase NT-Pro-B Natriuret Pep Total Protein Albumin Lipase Free T4 11/04/18 11/04/18 11/04/18 09:39 09:39 11:43 WBC 15.2 H RBC 3.18 L Hgb Hct 29.9 L MCV MCH MCHC RDW Plt Count Lymph % (Auto) Bailey % (Auto) Lymph # Bailey # Seg Neutrophils % Seg Neuts % (Manual) 98.0 H Lymphocytes % (Manual) 1.0 L Seg Neutrophils # Seg Neutrophils # Man 14.9 H Lymphocytes # (Manual) 0.2 L POC ABG pH POC ABG pCO2 POC ABG pO2 Sodium 135 L D Potassium Chloride 109.5 H Carbon Dioxide 16 L BUN 46 H Creatinine Glucose 136 H POC Glucose 138 H Calcium 8.0 L Phosphorus Magnesium Iron TIBC Ferritin Alkaline Phosphatase NT-Pro-B Natriuret Pep Total Protein Albumin Lipase Free T4 11/04/18 11/04/18 11/05/18 17:31 23:42 05:23 WBC RBC Hgb Hct MCV MCH MCHC RDW Plt Count Lymph % (Auto) Bailey % (Auto) Lymph # Bailey # Seg Neutrophils % Seg Neuts % (Manual) Lymphocytes % (Manual) Seg Neutrophils # Seg Neutrophils # Man Lymphocytes # (Manual) POC ABG pH POC ABG pCO2 POC ABG pO2 Sodium Potassium Chloride Carbon Dioxide BUN Creatinine Glucose POC Glucose 139 H 138 H 148 H Calcium Phosphorus Magnesium Iron TIBC Ferritin Alkaline Phosphatase NT-Pro-B Natriuret Pep Total Protein Albumin Lipase Free T4 11/05/18 11/05/18 11/05/18 05:30 05:30 11:46 WBC 14.2 H RBC 3.12 L Hgb 10.0 L Hct 29.1 L MCV MCH MCHC RDW Plt Count Lymph % (Auto) Bailey % (Auto) Lymph # Bailey # Seg Neutrophils % Seg Neuts % (Manual) Lymphocytes % (Manual) Seg Neutrophils # Seg Neutrophils # Man Lymphocytes # (Manual) POC ABG pH POC ABG pCO2 POC ABG pO2 Sodium Potassium Chloride Carbon Dioxide 21 L BUN 42 H Creatinine Glucose 125 H POC Glucose 157 H Calcium 7.9 L Phosphorus Magnesium Iron TIBC Ferritin Alkaline Phosphatase NT-Pro-B Natriuret Pep Total Protein Albumin Lipase Free T4 11/05/18 11/05/18 11/05/18 17:09 20:03 23:43 WBC RBC Hgb Hct MCV MCH MCHC RDW Plt Count Lymph % (Auto) Bailey % (Auto) Lymph # Bailey # Seg Neutrophils % Seg Neuts % (Manual) Lymphocytes % (Manual) Seg Neutrophils # Seg Neutrophils # Man Lymphocytes # (Manual) POC ABG pH POC ABG pCO2 POC ABG pO2 76 L Sodium Potassium Chloride Carbon Dioxide BUN Creatinine Glucose POC Glucose 142 H 204 H Calcium Phosphorus Magnesium Iron TIBC Ferritin Alkaline Phosphatase NT-Pro-B Natriuret Pep Total Protein Albumin Lipase Free T4 11/06/18 11/06/18 11/06/18 04:21 12:14 17:17 WBC RBC Hgb Hct MCV MCH MCHC RDW Plt Count Lymph % (Auto) Bailey % (Auto) Lymph # Bailey # Seg Neutrophils % Seg Neuts % (Manual) Lymphocytes % (Manual) Seg Neutrophils # Seg Neutrophils # Man Lymphocytes # (Manual) POC ABG pH POC ABG pCO2 POC ABG pO2 Sodium 133 L Potassium Chloride Carbon Dioxide 18 L BUN 47 H Creatinine Glucose 187 H POC Glucose 232 H 199 H Calcium 7.8 L Phosphorus 5.30 H D Magnesium 2.50 H Iron TIBC Ferritin Alkaline Phosphatase NT-Pro-B Natriuret Pep Total Protein Albumin Lipase Free T4 11/06/18 11/06/18 11/07/18 19:46 23:30 00:00 WBC RBC Hgb Hct MCV MCH MCHC RDW Plt Count Lymph % (Auto) Bailey % (Auto) Lymph # Bailey # Seg Neutrophils % Seg Neuts % (Manual) Lymphocytes % (Manual) Seg Neutrophils # Seg Neutrophils # Man Lymphocytes # (Manual) POC ABG pH 7.317 L POC ABG pCO2 50.3 H POC ABG pO2 58 L 57 L Sodium Potassium Chloride Carbon Dioxide BUN Creatinine Glucose POC Glucose 224 H Calcium Phosphorus Magnesium Iron TIBC Ferritin Alkaline Phosphatase NT-Pro-B Natriuret Pep Total Protein Albumin Lipase Free T4 11/07/18 11/07/18 11/07/18 04:55 04:55 04:55 WBC 25.2 H RBC 3.64 L Hgb Hct MCV MCH MCHC RDW Plt Count Lymph % (Auto) Bailey % (Auto) Lymph # Bailey # Seg Neutrophils % Seg Neuts % (Manual) Lymphocytes % (Manual) Seg Neutrophils # Seg Neutrophils # Man Lymphocytes # (Manual) POC ABG pH POC ABG pCO2 POC ABG pO2 Sodium Potassium Chloride Carbon Dioxide BUN 54 H Creatinine Glucose 270 H POC Glucose Calcium 7.9 L Phosphorus 5.00 H Magnesium Iron TIBC Ferritin Alkaline Phosphatase NT-Pro-B Natriuret Pep 4507 H Total Protein Albumin Lipase Free T4 11/07/18 11/07/18 11/07/18 05:46 08:08 11:52 WBC RBC Hgb Hct MCV MCH MCHC RDW Plt Count Lymph % (Auto) Bailey % (Auto) Lymph # Bailey # Seg Neutrophils % Seg Neuts % (Manual) Lymphocytes % (Manual) Seg Neutrophils # Seg Neutrophils # Man Lymphocytes # (Manual) POC ABG pH POC ABG pCO2 47.6 H POC ABG pO2 106 H Sodium Potassium Chloride Carbon Dioxide BUN Creatinine Glucose POC Glucose 266 H 323 H Calcium Phosphorus Magnesium Iron TIBC Ferritin Alkaline Phosphatase NT-Pro-B Natriuret Pep Total Protein Albumin Lipase Free T4 11/07/18 11/07/18 11/07/18 12:29 17:57 23:48 WBC RBC Hgb Hct MCV MCH MCHC RDW Plt Count Lymph % (Auto) Bailey % (Auto) Lymph # Bailey # Seg Neutrophils % Seg Neuts % (Manual) Lymphocytes % (Manual) Seg Neutrophils # Seg Neutrophils # Man Lymphocytes # (Manual) POC ABG pH POC ABG pCO2 POC ABG pO2 Sodium Potassium Chloride Carbon Dioxide BUN Creatinine Glucose POC Glucose 325 H 286 H 231 H Calcium Phosphorus Magnesium Iron TIBC Ferritin Alkaline Phosphatase NT-Pro-B Natriuret Pep Total Protein Albumin Lipase Free T4 11/08/18 11/08/18 11/08/18 03:58 05:05 05:05 WBC 18.4 H RBC 3.20 L Hgb 10.0 L Hct 29.7 L MCV MCH MCHC RDW Plt Count Lymph % (Auto) Bailey % (Auto) Lymph # Bailey # Seg Neutrophils % Seg Neuts % (Manual) Lymphocytes % (Manual) Seg Neutrophils # Seg Neutrophils # Man Lymphocytes # (Manual) POC ABG pH 7.524 H POC ABG pCO2 34.3 L POC ABG pO2 Sodium Potassium Chloride Carbon Dioxide BUN 61 H Creatinine Glucose 253 H POC Glucose Calcium 7.6 L Phosphorus Magnesium Iron TIBC Ferritin Alkaline Phosphatase NT-Pro-B Natriuret Pep Total Protein Albumin Lipase Free T4 11/08/18 11/08/18 11/08/18 05:28 11:28 18:21 WBC RBC Hgb Hct MCV MCH MCHC RDW Plt Count Lymph % (Auto) Bailey % (Auto) Lymph # Bailey # Seg Neutrophils % Seg Neuts % (Manual) Lymphocytes % (Manual) Seg Neutrophils # Seg Neutrophils # Man Lymphocytes # (Manual) POC ABG pH POC ABG pCO2 POC ABG pO2 Sodium Potassium Chloride Carbon Dioxide BUN Creatinine Glucose POC Glucose 295 H 253 H 225 H Calcium Phosphorus Magnesium Iron TIBC Ferritin Alkaline Phosphatase NT-Pro-B Natriuret Pep Total Protein Albumin Lipase Free T4 11/09/18 11/09/18 11/09/18 00:57 04:06 06:06 WBC RBC Hgb Hct MCV MCH MCHC RDW Plt Count Lymph % (Auto) Bailey % (Auto) Lymph # Bailey # Seg Neutrophils % Seg Neuts % (Manual) Lymphocytes % (Manual) Seg Neutrophils # Seg Neutrophils # Man Lymphocytes # (Manual) POC ABG pH 7.509 H POC ABG pCO2 POC ABG pO2 Sodium Potassium Chloride Carbon Dioxide BUN Creatinine Glucose POC Glucose 218 H 199 H Calcium Phosphorus Magnesium Iron TIBC Ferritin Alkaline Phosphatase NT-Pro-B Natriuret Pep Total Protein Albumin Lipase Free T4 11/09/18 11/09/18 11/09/18 06:51 06:51 12:07 WBC 13.5 H RBC 2.97 L Hgb 9.3 L Hct 27.6 L MCV MCH MCHC RDW Plt Count Lymph % (Auto) Bailey % (Auto) Lymph # Bailey # Seg Neutrophils % Seg Neuts % (Manual) Lymphocytes % (Manual) Seg Neutrophils # Seg Neutrophils # Man Lymphocytes # (Manual) POC ABG pH POC ABG pCO2 POC ABG pO2 Sodium Potassium Chloride 96.5 L Carbon Dioxide 32 H BUN 58 H Creatinine Glucose 191 H POC Glucose 212 H Calcium 7.5 L Phosphorus Magnesium Iron TIBC Ferritin Alkaline Phosphatase NT-Pro-B Natriuret Pep Total Protein Albumin Lipase Free T4 11/09/18 11/10/18 11/10/18 18:29 00:09 04:21 WBC RBC Hgb Hct MCV MCH MCHC RDW Plt Count Lymph % (Auto) Bailey % (Auto) Lymph # Bailey # Seg Neutrophils % Seg Neuts % (Manual) Lymphocytes % (Manual) Seg Neutrophils # Seg Neutrophils # Man Lymphocytes # (Manual) POC ABG pH 7.467 H POC ABG pCO2 49.9 H POC ABG pO2 76 L Sodium Potassium Chloride Carbon Dioxide BUN Creatinine Glucose POC Glucose 192 H 214 H Calcium Phosphorus Magnesium Iron TIBC Ferritin Alkaline Phosphatase NT-Pro-B Natriuret Pep Total Protein Albumin Lipase Free T4 11/10/18 11/10/18 11/10/18 04:39 04:39 06:05 WBC 14.3 H RBC 3.09 L Hgb 9.7 L Hct 28.9 L MCV MCH MCHC RDW Plt Count Lymph % (Auto) Bailey % (Auto) Lymph # Bailey # Seg Neutrophils % Seg Neuts % (Manual) Lymphocytes % (Manual) Seg Neutrophils # Seg Neutrophils # Man Lymphocytes # (Manual) POC ABG pH POC ABG pCO2 POC ABG pO2 Sodium Potassium Chloride 97.5 L Carbon Dioxide 31 H BUN 53 H Creatinine Glucose 196 H POC Glucose 202 H Calcium 7.7 L Phosphorus Magnesium Iron TIBC Ferritin Alkaline Phosphatase NT-Pro-B Natriuret Pep Total Protein Albumin Lipase Free T4 11/10/18 11/10/18 11/11/18 12:32 17:16 00:06 WBC RBC Hgb Hct MCV MCH MCHC RDW Plt Count Lymph % (Auto) Bailey % (Auto) Lymph # Bailey # Seg Neutrophils % Seg Neuts % (Manual) Lymphocytes % (Manual) Seg Neutrophils # Seg Neutrophils # Man Lymphocytes # (Manual) POC ABG pH POC ABG pCO2 POC ABG pO2 Sodium Potassium Chloride Carbon Dioxide BUN Creatinine Glucose POC Glucose 197 H 200 H 177 H Calcium Phosphorus Magnesium Iron TIBC Ferritin Alkaline Phosphatase NT-Pro-B Natriuret Pep Total Protein Albumin Lipase Free T4 11/11/18 11/11/18 11/11/18 04:43 05:24 05:50 WBC 14.1 H RBC 2.92 L Hgb 9.1 L Hct 27.0 L MCV MCH MCHC RDW Plt Count Lymph % (Auto) Bailey % (Auto) Lymph # Bailey # Seg Neutrophils % Seg Neuts % (Manual) Lymphocytes % (Manual) Seg Neutrophils # Seg Neutrophils # Man Lymphocytes # (Manual) POC ABG pH POC ABG pCO2 50.1 H POC ABG pO2 Sodium Potassium Chloride Carbon Dioxide BUN Creatinine Glucose POC Glucose 199 H Calcium Phosphorus Magnesium Iron TIBC Ferritin Alkaline Phosphatase NT-Pro-B Natriuret Pep Total Protein Albumin Lipase Free T4 11/11/18 11/11/1811/11/19 05:50 12:00 17:57 WBC RBC Hgb Hct MCV MCH MCHC RDW Plt Count Lymph % (Auto) Bailey % (Auto) Lymph # Bailey # Seg Neutrophils % Seg Neuts % (Manual) Lymphocytes % (Manual) Seg Neutrophils # Seg Neutrophils # Man Lymphocytes # (Manual) POC ABG pH POC ABG pCO2 POC ABG pO2 Sodium Potassium 3.5 L Chloride Carbon Dioxide 34 H BUN 47 H Creatinine 0.5 L Glucose 169 H POC Glucose 168 H 194 H Calcium 8.2 L Phosphorus Magnesium Iron TIBC Ferritin Alkaline Phosphatase 142 H NT-Pro-B Natriuret Pep Total Protein 4.4 L Albumin 2.1 L Lipase Free T4 11/11/18 11/12/18 11/12/18 23:26 05:32 09:26 WBC RBC Hgb Hct MCV MCH MCHC RDW Plt Count Lymph % (Auto) Bailey % (Auto) Lymph # Bailey # Seg Neutrophils % Seg Neuts % (Manual) Lymphocytes % (Manual) Seg Neutrophils # Seg Neutrophils # Man Lymphocytes # (Manual) POC ABG pH POC ABG pCO2 POC ABG pO2 Sodium Potassium Chloride Carbon Dioxide BUN Creatinine Glucose POC Glucose 181 H 186 H 158 H Calcium Phosphorus Magnesium Iron TIBC Ferritin Alkaline Phosphatase NT-Pro-B Natriuret Pep Total Protein Albumin Lipase Free T4 11/12/18 11/12/18 11/12/18 11:42 17:39 23:25 WBC RBC Hgb Hct MCV MCH MCHC RDW Plt Count Lymph % (Auto) Bailey % (Auto) Lymph # Bailey # Seg Neutrophils % Seg Neuts % (Manual) Lymphocytes % (Manual) Seg Neutrophils # Seg Neutrophils # Man Lymphocytes # (Manual) POC ABG pH POC ABG pCO2 POC ABG pO2 Sodium Potassium Chloride Carbon Dioxide BUN Creatinine Glucose POC Glucose 141 H 183 H 147 H Calcium Phosphorus Magnesium Iron TIBC Ferritin Alkaline Phosphatase NT-Pro-B Natriuret Pep Total Protein Albumin Lipase Free T4 11/13/18 11/13/18 11/13/18 12:16 18:10 21:21 WBC RBC Hgb Hct MCV MCH MCHC RDW Plt Count Lymph % (Auto) Bailey % (Auto) Lymph # Bailey # Seg Neutrophils % Seg Neuts % (Manual) Lymphocytes % (Manual) Seg Neutrophils # Seg Neutrophils # Man Lymphocytes # (Manual) POC ABG pH POC ABG pCO2 POC ABG pO2 Sodium Potassium Chloride Carbon Dioxide BUN Creatinine Glucose POC Glucose 114 H 127 H 185 H Calcium Phosphorus Magnesium Iron TIBC Ferritin Alkaline Phosphatase NT-Pro-B Natriuret Pep Total Protein Albumin Lipase Free T4 11/13/18 11/14/18 11/14/18 23:11 03:28 03:28 WBC RBC Hgb Hct MCV MCH MCHC RDW Plt Count Lymph % (Auto) Bailey % (Auto) Lymph # Bailey # Seg Neutrophils % Seg Neuts % (Manual) Lymphocytes % (Manual) Seg Neutrophils # Seg Neutrophils # Man Lymphocytes # (Manual) POC ABG pH POC ABG pCO2 POC ABG pO2 Sodium Potassium Chloride Carbon Dioxide BUN Creatinine Glucose POC Glucose 184 H Calcium Phosphorus Magnesium Iron 31 L TIBC 173 L Ferritin 510.3 H Alkaline Phosphatase NT-Pro-B Natriuret Pep Total Protein Albumin Lipase Free T4 11/14/18 11/14/18 11/14/18 05:12 07:59 10:05 WBC 19.8 H RBC 2.67 L Hgb 8.4 L Hct 25.2 L MCV MCH MCHC RDW Plt Count Lymph % (Auto) Bailey % (Auto) Lymph # Bailey # Seg Neutrophils % Seg Neuts % (Manual) 96.0 H Lymphocytes % (Manual) 0 L Seg Neutrophils # Seg Neutrophils # Man 19.0 H Lymphocytes # (Manual) 0.0 L POC ABG pH 7.470 H POC ABG pCO2 POC ABG pO2 Sodium Potassium Chloride Carbon Dioxide BUN Creatinine Glucose POC Glucose 178 H Calcium Phosphorus Magnesium Iron TIBC Ferritin Alkaline Phosphatase NT-Pro-B Natriuret Pep Total Protein Albumin Lipase Free T4 11/14/18 11/14/18 11/14/18 11:40 18:03 23:15 WBC RBC Hgb Hct MCV MCH MCHC RDW Plt Count Lymph % (Auto) Bailey % (Auto) Lymph # Bailey # Seg Neutrophils % Seg Neuts % (Manual) Lymphocytes % (Manual) Seg Neutrophils # Seg Neutrophils # Man Lymphocytes # (Manual) POC ABG pH POC ABG pCO2 POC ABG pO2 Sodium Potassium Chloride Carbon Dioxide BUN Creatinine Glucose POC Glucose 168 H 221 H 223 H Calcium Phosphorus Magnesium Iron TIBC Ferritin Alkaline Phosphatase NT-Pro-B Natriuret Pep Total Protein Albumin Lipase Free T4 11/15/18 11/15/18 11/15/18 05:29 11:33 12:13 WBC RBC Hgb Hct MCV MCH MCHC RDW Plt Count Lymph % (Auto) Bailey % (Auto) Lymph # Bailey # Seg Neutrophils % Seg Neuts % (Manual) Lymphocytes % (Manual) Seg Neutrophils # Seg Neutrophils # Man Lymphocytes # (Manual) POC ABG pH POC ABG pCO2 46.1 H POC ABG pO2 107 H Sodium Potassium Chloride Carbon Dioxide BUN Creatinine Glucose POC Glucose 210 H 199 H Calcium Phosphorus Magnesium Iron TIBC Ferritin Alkaline Phosphatase NT-Pro-B Natriuret Pep Total Protein Albumin Lipase Free T4 11/15/18 11/15/18 11/15/18 14:32 17:45 23:29 WBC RBC Hgb Hct MCV MCH MCHC RDW Plt Count Lymph % (Auto) Bailey % (Auto) Lymph # Bailey # Seg Neutrophils % Seg Neuts % (Manual) Lymphocytes % (Manual) Seg Neutrophils # Seg Neutrophils # Man Lymphocytes # (Manual) POC ABG pH POC ABG pCO2 POC ABG pO2 Sodium 149 H Potassium 3.1 L Chloride 109.2 H Carbon Dioxide BUN 36 H Creatinine 0.5 L Glucose 164 H POC Glucose 154 H 163 H Calcium 7.5 L Phosphorus Magnesium Iron TIBC Ferritin Alkaline Phosphatase NT-Pro-B Natriuret Pep Total Protein Albumin Lipase Free T4 11/16/18 11/16/18 11/16/18 05:54 12:05 12:57 WBC RBC Hgb Hct MCV MCH MCHC RDW Plt Count Lymph % (Auto) Bailey % (Auto) Lymph # Bailey # Seg Neutrophils % Seg Neuts % (Manual) Lymphocytes % (Manual) Seg Neutrophils # Seg Neutrophils # Man Lymphocytes # (Manual) POC ABG pH POC ABG pCO2 POC ABG pO2 Sodium 150 H Potassium 3.0 L Chloride 109.0 H Carbon Dioxide BUN 41 H Creatinine 0.5 L Glucose 158 H POC Glucose 168 H 176 H Calcium 7.6 L Phosphorus Magnesium Iron TIBC Ferritin Alkaline Phosphatase NT-Pro-B Natriuret Pep Total Protein Albumin Lipase Free T4 11/16/18 11/16/18 11/17/18 16:49 23:22 04:25 WBC 16.2 H RBC 2.72 L Hgb 8.7 L Hct 25.9 L MCV MCH MCHC RDW 15.6 H Plt Count Lymph % (Auto) Bailey % (Auto) Lymph # Bailey # Seg Neutrophils % Seg Neuts % (Manual) 97.0 H Lymphocytes % (Manual) 1.0 L Seg Neutrophils # Seg Neutrophils # Man 15.7 H Lymphocytes # (Manual) 0.2 L POC ABG pH POC ABG pCO2 POC ABG pO2 Sodium Potassium Chloride Carbon Dioxide BUN Creatinine Glucose POC Glucose 163 H 230 H Calcium Phosphorus Magnesium Iron TIBC Ferritin Alkaline Phosphatase NT-Pro-B Natriuret Pep Total Protein Albumin Lipase Free T4 11/17/18 11/17/18 04:25 05:56 WBC RBC Hgb Hct MCV MCH MCHC RDW Plt Count Lymph % (Auto) Bailey % (Auto) Lymph # Bailey # Seg Neutrophils % Seg Neuts % (Manual) Lymphocytes % (Manual) Seg Neutrophils # Seg Neutrophils # Man Lymphocytes # (Manual) POC ABG pH POC ABG pCO2 POC ABG pO2 Sodium 152 H Potassium 3.4 L Chloride 109.9 H Carbon Dioxide 32 H BUN 40 H Creatinine 0.5 L Glucose 155 H POC Glucose 173 H Calcium 7.9 L Phosphorus Magnesium Iron TIBC Ferritin Alkaline Phosphatase NT-Pro-B Natriuret Pep Total Protein Albumin Lipase Free T4 Allied health notes reviewed: nursing
--- NOTE | 2018-11-17 11:05 | Progress Note ---
Assessment and Plan Cultures: Blood cultures 10/22/2018 no growth Tracheal asp cultures 10/28/2018: E.coli and Stenotrophomonas. 10/30/2018 blood culture: Ayla glabrata 11/03/2018 fungal blood culture: no growth thus far Assessment: 73 y/o female with history of COPD, hypertension, lupus, fibromyalgia, opioid dependence admitted on 10/22/2018 due to 3-day history of intractable nausea, vomiting, diarrhea: 1) SIRS v/s sepsis: fever resolved. Noted leukocytosis 19-->16 on iv steroids. Etiology initially most likely aspiration pneumonia +/- intra-abdominal source from contained gastric perforation, now also with Candidemia. 2) Candidemia due to Ayla glabrata: in the setting of TPN and PICC line. PICC removed. Has temporary central line. TTE not optimal quality, but repeat fungal blood cultures are negative, so no need for LAUREN. S/p micafungin/fluconazole 14 days course. 3) Acute respiratory failure: pneumonia and fluid overload. Extubated 11/05/2018 and now reintubated 11/07/2018. Planned for trach. 4) Presumed aspiration pneumonia v/s HAP: Tracheal asp cultures 10/28/2018 with E.coli and Stenotrophomonas. Stenotrophomonas is a known colonizer in patients with structural lung disease or tracheostomy tubes/ET tubes, not generally considered very virulent. Given her prolonged and complicated hospital stay, completed a 10 day course of abx. 5) Contained gastric perforation: Gen Surgery following. Planned for conservative management. Follow up CT showed no contrast leak. Now on tube feeds. 6) ADWOA: improved. 7) Diarrhea: ? tfeeds not better Recommendations: - monitor leukocytosis off antibiotics and tapering off solumedrol - consider changing T-feeds, monitor diarrhea will follow Ame Garcia MD Infectious Diseases Chief Nurse [facility] M [phone] O [phone] Subjective Date of service: 11/17/18 Principal diagnosis: anemia Interval history: Remains on vent via trach, alert, follows commands, no fever. +diarrhea +tachycardic on monitor ROS unable to obtain Objective - Exam Narrative Exam: General appearance: alert follows commands Eyes: anicteric sclerae, moist conjunctivae; no lid-lag; PERRLA HENT: Atraumatic; oropharynx limited Neck: Trach no secretion Lungs: distant BS CV: tacycardic Abdomen: Soft, non-tender Extremities: no edema, cyanosis Skin: Normal temperature, turgor and texture; no rash, ulcers or subcutaneous nodules Psych: no agitated Neuro:alert Rectal tube w diarrhea - Constitutional Vitals: Vital Signs Temp Pulse Resp BP Pulse Ox 99.0 F 115 H 15 126/64 99 11/17/18 04:00 11/17/18 08:30 11/17/18 08:30 11/17/18 08:30 11/17/18 08:30 Temperature -Last 24 Hours Temperature 99.0 F Temperature 98.9 F Temperature 98.8 F Temperature 97.8 F Temperature 98 F - Labs CBC & Chem 7: 11/17/18 04:25 11/17/18 04:25 Labs: Abnormal lab results 11/16/18 11/16/18 11/16/18 Range/Units 12:05 12:57 16:49 WBC (4.5-11.0) K/mm3 RBC (3.65-5.03) M/mm3 Hgb (10.1-14.3) gm/dl Hct (30.3-42.9) % RDW (13.2-15.2) % Seg Neuts % (Manual) (40.0-70.0) % Lymphocytes % (Manual) (13.4-35.0) % Seg Neutrophils # Man (1.8-7.7) K/mm3 Lymphocytes # (Manual) (1.2-5.4) K/mm3 Sodium 150 H (137-145) mmol/L Potassium 3.0 L (3.6-5.0) mmol/L Chloride 109.0 H (98-107) mmol/L Carbon Dioxide (22-30) mmol/L BUN 41 H (7-17) mg/dL Creatinine 0.5 L (0.7-1.2) mg/dL Glucose 158 H (65-100) mg/dL POC Glucose 176 H 163 H (70-105) Calcium 7.6 L (8.4-10.2) mg/dL 11/16/18 11/17/18 11/17/18 Range/Units 23:22 04:25 04:25 WBC 16.2 H (4.5-11.0) K/mm3 RBC 2.72 L (3.65-5.03) M/mm3 Hgb 8.7 L (10.1-14.3) gm/dl Hct 25.9 L (30.3-42.9) % RDW 15.6 H (13.2-15.2) % Seg Neuts % (Manual) 97.0 H (40.0-70.0) % Lymphocytes % (Manual) 1.0 L (13.4-35.0) % Seg Neutrophils # Man 15.7 H (1.8-7.7) K/mm3 Lymphocytes # (Manual) 0.2 L (1.2-5.4) K/mm3 Sodium 152 H (137-145) mmol/L Potassium 3.4 L (3.6-5.0) mmol/L Chloride 109.9 H (98-107) mmol/L Carbon Dioxide 32 H (22-30) mmol/L BUN 40 H (7-17) mg/dL Creatinine 0.5 L (0.7-1.2) mg/dL Glucose 155 H (65-100) mg/dL POC Glucose 230 H (70-105) Calcium 7.9 L (8.4-10.2) mg/dL 11/17/18 Range/Units 05:56 WBC (4.5-11.0) K/mm3 RBC (3.65-5.03) M/mm3 Hgb (10.1-14.3) gm/dl Hct (30.3-42.9) % RDW (13.2-15.2) % Seg Neuts % (Manual) (40.0-70.0) % Lymphocytes % (Manual) (13.4-35.0) % Seg Neutrophils # Man (1.8-7.7) K/mm3 Lymphocytes # (Manual) (1.2-5.4) K/mm3 Sodium (137-145) mmol/L Potassium (3.6-5.0) mmol/L Chloride (98-107) mmol/L Carbon Dioxide (22-30) mmol/L BUN (7-17) mg/dL Creatinine (0.7-1.2) mg/dL Glucose (65-100) mg/dL POC Glucose 173 H (70-105) Calcium (8.4-10.2) mg/dL
[2018-11-17] MEDS: XANAX PO SCH ×2 (11:37→17:47)
--- NOTE | 2018-11-17 11:38 | Progress Note ---
Assessment and Plan Assessment and plan: Acute hypoxic respiratory failure. Patient was reintubated on 10/28/18 and currently on mechanical ventilation. Etiology secondary to COPD/pneumonia/sepsis. Extubated 11/05, re-intubated 11/07 Wean mechanical ventilation per pulmonary. Patient Initiated on T piece trial yesterday, monitor during the day. The patient tolerated 4 hours T piece yesterday. Continue to be stressed today and mechanical vent at nighttime. Gastric perforation. Repeat CT scan on 10/30 revealed pSBO resolved, no evidence for bowel ischemia. Small contained gastric perforation at lesser curve. No gross free air or contrast extravasation. Surgery recommends conservative management Sepsis/candidemia. Etiology initially most likely related to aspiration pneumonia and gastric perforation. Patient now with Ayla glabrata. PICC line removed. Repeat fungal cultures are negative. Complete a 14 day course of antifungals. Removed current central line and inserted midline. ID started fluconazole 11/13/18 and discontinued micafungin. Thrombocytopenia. Etiology likely secondary to sepsis. Hematology following. Bilateral upper lobe/aspiration pneumonia. Sputum culture positive for Escherichia coli and stenotrophomonas. Continue antibiotics per ID. Bilateral pleural effusions. Acute exacerbation COPD. Scheduled Duo Nebs and Pulmicort; albuterol when necessary Presumed aspiration pneumonia versus healthcare associated pneumonia. Tracheal aspirate cultures from 10/28 with Escherichia coli and stenotrophomonas. Completed antibiotics. Hypokalemia. Replete potassium as needed. Hypertension. IV hydralazine when necessary Lupus. Supportive care Fibromyalgia. supportive care History of opioid dependence ADWOA due to vasomotor nephropathy, now resolved The high probability of a clinically significant, sudden or life threatening deterioration of the [GI and respiratory] system(s) required my full and direct attention, intervention and personal management. The aggregate critical care ti me was [31] minutes. This time is in addition to time spent performing reported procedures but includes the following: [x] Data Review and interpretation [x] Patient assessment and monitoring of vital signs [x] Documentation [x] Medication orders and management History Interval history: Patient is 73-year-old female with history of hypertension, lupus, fibromyalgia, COPD, opioid dependence (follows Dr. Felix Muñiz at pain clinic) who presented to [facility] ED with complaints of intractable nausea, vomiting, diarrhea for 3 days. On initial presentation to the ED she was found to be tachycardiac with heart rate 113 BPM, leukocytosis with WBC 11.5, elevated BUN/Cr 51/2.1. Patient has history of COPD and at baseline does not require home oxygen use. She was admitted to [facility]. GI was consulted, she was evaluated. CT Abdomen revealed partial SBO versus ileus therefore surgeon consulted. Also patient became more short of breath, placed on BIPAP with no improvement then intubated 10/26/18 for acute resp failure and transferred to ICU. Obstruction series completed on 10/27 which showed improved but small bowel and stomach dilatation. Follow-up series on 10/28 showed no significant change since previous study. NG tube was removed due to patient not tolerating/refusing. Patient was placed back on BiPAP but decompensated on the night of 10/28/18 and had to be reintubated. Patient currently on mechanical ventilation. Patient has had further complications now with findings consistent with contained gastric perforation on repeat CT scan 10/30, managed conservatively. She was extubated 11/05, re-intubated 11/07/18. This is 3rd intubation so Tracheostomy has been recommended and being planned. No PEG yet, for at least 2 weeks because of recent gastric perforation. Hospitalist Physical - Constitutional Vitals: Temp Pulse Resp BP Pulse Ox 99.0 F 115 H 15 126/64 99 11/17/18 04:00 11/17/18 08:30 11/17/18 08:30 11/17/18 08:30 11/17/18 08:30 General appearance: Present: other (intubated, opens eyes to commands) - EENT Eyes: Present: PERRL, EOM intact ENT: hearing intact, clear oral mucosa, dentition normal - Neck Neck: Present: supple, normal ROM - Respiratory Respiratory effort: normal Respiratory: bilateral: CTA - Cardiovascular Rhythm: regular Heart Sounds: Present: S1 & S2. Absent: gallop, rub - Extremities Extremities: no ischemia, No edema, Full ROM - Abdominal General gastrointestinal: soft, non-tender, non-distended, normal bowel sounds - Integumentary Integumentary: Present: clear, warm, dry - Neurologic Neurologic: CNII-XII intact, moves all extremities Results - Labs CBC & Chem 7: 11/17/18 04:25 11/17/18 04:25 Labs: Laboratory Last Values WBC 16.2 K/mm3 (4.5-11.0) H 11/17/18 04:25 RBC 2.72 M/mm3 (3.65-5.03) L 11/17/18 04:25 Hgb 8.7 gm/dl (10.1-14.3) L 11/17/18 04:25 Hct 25.9 % (30.3-42.9) L 11/17/18 04:25 MCV 95 fl (79-97) 11/17/18 04:25 MCH 32 pg (28-32) 11/17/18 04:25 MCHC 34 % (30-34) 11/17/18 04:25 RDW 15.6 % (13.2-15.2) H 11/17/18 04:25 Plt Count 408 K/mm3 (140-440) 11/17/18 04:25 Lymph % (Auto) Scale Installer 11/14/18 07:59 Emery % (Auto) Scale Installer 11/14/18 07:59 Eos % (Auto) Scale Installer 11/14/18 07:59 Baso % (Auto) Scale Installer 11/14/18 07:59 Lymph # Scale Installer 11/14/18 07:59 Emery # Scale Installer 11/14/18 07:59 Eos # Scale Installer 11/14/18 07:59 Baso # Scale Installer 11/14/18 07:59 Add Manual Diff Complete 11/17/18 04:25 Total Counted 100 11/17/18 04:25 Seg Neutrophils % Scale Installer 11/17/18 04:25 Seg Neuts % (Manual) 97.0 % (40.0-70.0) H 11/17/18 04:25 0 % 11/17/18 04:25 1.0 % (13.4-35.0) L 11/17/18 04:25 Reactive Lymphs % (Man) 0 % 11/17/18 04:25 0 % (0.0-7.3) 11/17/18 04:25 0 % (0.0-4.3) 11/17/18 04:25 0 % (0.0-1.8) 11/17/18 04:25 1.0 % 11/17/18 04:25 1.0 % 11/17/18 04:25 0 % 11/17/18 04:25 0 % 11/17/18 04:25 Nucleated RBC % Not Reportable 11/17/18 04:25 Seg Neutrophils # Scale Installer 11/14/18 07:59 Seg Neutrophils # Man 15.7 K/mm3 (1.8-7.7) H 11/17/18 04:25 Band Neutrophils # 0.0 K/mm3 11/17/18 04:25 0.2 K/mm3 (1.2-5.4) L 11/17/18 04:25 Abs React Lymphs (Man) 0.0 K/mm3 11/17/18 04:25 0.0 K/mm3 (0.0-0.8) 11/17/18 04:25 0.0 K/mm3 (0.0-0.4) 11/17/18 04:25 0.0 K/mm3 (0.0-0.1) 11/17/18 04:25 0.2 K/mm3 11/17/18 04:25 0.2 K/mm3 11/17/18 04:25 0.0 K/mm3 11/17/18 04:25 Blast Cells # 0.0 K/mm3 11/17/18 04:25 WBC Morphology Not Reportable 11/17/18 04:25 WBC Morphology TNR 11/17/18 04:25 Hypersegmented Neuts Not Reportable 11/17/18 04:25 Hyposegmented Neuts Not Reportable 11/17/18 04:25 Hypogranular Neuts Not Reportable 11/17/18 04:25 Not Reportable 11/17/18 04:25 Not Reportable 11/17/18 04:25 Not Reportable 11/17/18 04:25 Not Reportable 11/17/18 04:25 Not Reportable 11/17/18 04:25 Not Reportable 11/17/18 04:25 Consistent w auto 11/17/18 04:25 Not Reportable 11/17/18 04:25 Plt Clumps, EDTA Not Reportable 11/17/18 04:25 Not Reportable 11/17/18 04:25 Not Reportable 11/17/18 04:25 Not Reportable 11/17/18 04:25 Plt Morphology Comment Not Reportable 11/17/18 04:25 RBC Morphology Not Reportable 11/17/18 04:25 Dimorphic RBCs Not Reportable 11/17/18 04:25 Not Reportable 11/17/18 04:25 1+ 11/17/18 04:25 Not Reportable 11/17/18 04:25 Not Reportable 11/17/18 04:25 Not Reportable 11/17/18 04:25 Not Reportable 11/17/18 04:25 Not Reportable 11/17/18 04:25 Not Reportable 11/17/18 04:25 Not Reportable 11/17/18 04:25 1+ 11/17/18 04:25 Not Reportable 11/17/18 04:25 Not Reportable 11/17/18 04:25 Few 11/17/18 04:25 Not Reportable 11/17/18 04:25 Not Reportable 11/17/18 04:25 Not Reportable 11/17/18 04:25 Not Reportable 11/17/18 04:25 Not Reportable 11/17/18 04:25 Not Reportable 11/17/18 04:25 Not Reportable 11/17/18 04:25 Acanthocytes (Spur) Not Reportable 11/17/18 04:25 Rouleaux Not Reportable 11/17/18 04:25 Not Reportable 11/17/18 04:25 Not Reportable 11/17/18 04:25 Not Reportable 11/17/18 04:25 Not Reportable 11/17/18 04:25 Hem Pathologist Commnt No 11/17/18 04:25 Heparin Anti-Xa, Unfract Negative (Negative) 10/30/18 13:58 POC ABG pH 7.446 (7.35-7.45) 11/15/18 11:33 POC ABG pCO2 46.1 (35-45) H 11/15/18 11:33 POC ABG pO2 107 (80-105) H 11/15/18 11:33 POC ABG HCO3 31.8 (22-26 mml/L) 11/15/18 11:33 POC ABG Total CO2 33 (23-27mmol/L) 11/15/18 11:33 POC ABG O2 Sat 98 11/15/18 11:33 POC ABG Base Excess 8 ((-2) - (+3)mmol/L) 11/15/18 11:33 30 % 11/15/18 11:33 Sodium 152 mmol/L (137-145) H 11/17/18 04:25 Potassium 3.4 mmol/L (3.6-5.0) L 11/17/18 04:25 Chloride 109.9 mmol/L (98-107) H 11/17/18 04:25 Carbon Dioxide 32 mmol/L (22-30) H 11/17/18 04:25 14 mmol/L 11/17/18 04:25 BUN 40 mg/dL (7-17) H 11/17/18 04:25 0.5 mg/dL (0.7-1.2) L 11/17/18 04:25 Estimated GFR > 60 ml/min 11/17/18 04:25 80 % 11/17/18 04:25 Glucose 155 mg/dL (65-100) H 11/17/18 04:25 POC Glucose 173 (70-105) H 11/17/18 05:56 Lactic Acid 1.60 mmol/L (0.7-2.0) 10/26/18 15:03 Calcium 7.9 mg/dL (8.4-10.2) L 11/17/18 04:25 Phosphorus 2.80 mg/dL (2.5-4.5) 11/11/18 05:50 Magnesium 1.80 mg/dL (1.7-2.3) 11/11/18 05:50 Iron 31 ug/dL (37-170) L 11/14/18 03:28 TIBC 173 mcg/dL (250-450) L 11/14/18 03:28 510.3 ng/mL (13.0-400.0) H 11/14/18 03:28 0.30 mg/dL (0.1-1.2) 11/11/18 05:50 AST 26 units/L (5-40) 11/11/18 05:50 ALT 28 units/L (7-56) 11/11/18 05:50 142 units/L (35-129) H 11/11/18 05:50 NT-Pro-B Natriuret Pep 4507 pg/mL (0-900) H 11/07/18 04:55 4.4 g/dL (6.3-8.2) L 11/11/18 05:50 2.1 g/dL (3.9-5) L 11/11/18 05:50 0.9 % 11/11/18 05:50 Triglycerides 132 mg/dL (2-149) 11/01/18 06:40 10 units/L (13-60) L 10/22/18 15:54 See scanned result 10/30/18 13:58 TSH 3.150 mlU/mL (0.270-4.200) 10/31/18 17:00 Free T4 0.49 ng/dL (0.76-1.46) L 10/31/18 17:00 Dulce (Yellow) 10/22/18 19:10 Clear (Clear) 10/22/18 19:10 5.0 (5.0-7.0) 10/22/18 19:10 Ur Specific [place] 1.018 (1.003-1.030) 10/22/18 19:10 30 mg/dl mg/dL (Negative) 10/22/18 19:10 Neg mg/dL (Negative) 10/22/18 19:10 Tr mg/dL (Negative) 10/22/18 19:10 Neg (Negative) 10/22/18 19:10 Neg (Negative) 10/22/18 19:10 Neg (Negative) 10/22/18 19:10 < 2.0 mg/dL (<2.0) 10/22/18 19:10 Ur Leukocyte Esterase Neg (Negative) 10/22/18 19:10 1.0 /HPF (0.0-6.0) 10/22/18 19:10 3.0 /HPF (0.0-6.0) 10/22/18 19:10 Heparin-induced Plt Ab Negative (Negative) 10/30/18 13:58 UF Heparin High Dose 0 % Release 10/30/18 13:58 KIMO UFH Low Dose 0.1 0 % Release 10/30/18 13:58 KIMO UFH Low Dose 0.5 0 % Release 10/30/18 13:58 Active Medications - Current Medications Current Medications: Generic Name Dose Route Start Last Admin Trade Name Freq PRN Reason Stop Dose Admin Acetaminophen 650 mg 10/22/18 20:10 11/16/18 09:51 Tylenol PO 650 mg Q4H PRN Administration Pain MILD(1-3)/Fever >100.5/PORTER Albuterol 2.5 mg 10/22/18 20:14 11/05/18 16:35 Proventil IH 2.5 mg Q4HRT PRN Administration Shortness Of Breath Alprazolam 0.5 mg 11/17/18 10:00 Xanax PO Q8H RICK Lipase/Protease/Amylase 1 each 11/05/18 10:13 Gwendolyn Simpson 10,500 Unit FEEDTUBE PRN PRN For Clogged Feeding Tube Arformoterol Tartrate 15 mcg 11/05/18 20:00 11/17/18 07:48 Brovana Nebu IH 15 mcg Q12HRT RICK Administration Budesonide 0.5 mg 10/23/18 08:00 11/17/18 07:48 Pulmicort IH 0.5 mg Q12HRT RICK Administration Dextrose 50 ml 10/26/18 23:40 10/27/18 00:20 D50w (25gm) Syringe IV 50 ml PRN PRN Administration Hypoglycemia Enoxaparin Sodium 40 mg 11/14/18 22:00 11/16/18 22:32 Lovenox SUB-Q 40 mg QDAY@2200 RICK Administration Gabapentin 600 mg 11/12/18 10:00 11/17/18 06:26 Neurontin PO 600 mg Q8HR RICK Administration Hydralazine HCl 10 mg 10/22/18 21:41 11/07/18 00:04 Apresoline IV 10 mg Q4HR PRN Administration Blood Pressure Hydromorphone HCl 1 mg 11/12/18 09:55 11/17/18 04:09 Dilaudid IV 1 mg Q4H PRN Administration Pain , Severe (7-10) Hydrophilic Ointment 1 applic 11/07/18 09:14 Vaseline Lip Therapy TP Q2HR PRN Dry Lips Insulin Human Isoph/Insulin Regular 12 unit 11/10/18 22:00 11/17/18 09:15 Humulin 70/30 SUB-Q 12 unit BID RICK Administration Insulin Human Lispro 0 unit 10/29/18 12:00 11/17/18 06:26 Humalog SUB-Q 2 unit Q6HR RICK Administration Protocol Lansoprazole 30 mg 11/17/18 10:00 11/17/18 09:14 Prevacid Solutab FEEDTUBE 30 mg QDAY RICK Administration Lorazepam 1 mg 11/06/18 11:00 11/16/18 19:23 Ativan IV 1 mg Q6H PRN Administration Anxiety Methylprednisolone Sodium Succinate 20 mg 11/17/18 14:00 Solu-Medrol IV Q8HR RICK Metoprolol Tartrate 5 mg 11/13/18 13:00 11/17/18 08:00 Lopressor IV 5 mg Q6H RICK Administration Multi-Ingred Cream/Lotion/Oil/Oint 1 applic 11/07/18 09:14 Artificial Tears Ophth Oint OU Q4HR PRN Dry Eye(s) Ondansetron HCl 4 mg 10/24/18 10:05 10/25/18 17:26 Zofran IV 4 mg Q6H PRN Administration Nausea And Vomiting Oxycodone/Acetaminophen 1 tab 11/05/18 11:16 11/17/18 09:46 Percocet 5/325 PO 1 tab Q6H PRN Administration Pain, Moderate (4-6) Phenol 1 spray 10/28/18 10:16 Chloraseptic MM PRN PRN Sore Throat Promethazine HCl 25 mg 10/22/18 20:10 10/22/18 21:21 Phenergan DE 25 mg Q6H PRN Administration Nausea And Vomiting Quetiapine Fumarate 300 mg 11/12/18 10:00 11/17/18 09:14 Seroquel PO 300 mg DAILY RICK Administration Simple Syrup 15 ml 11/05/18 10:13 Simple Syrup FEEDTUBE PRN PRN Hypoglycemia Simple Syrup 30 ml 11/05/18 10:13 Simple Syrup FEEDTUBE PRN PRN Hypoglycemia Sodium Bicarbonate 325 mg 11/05/18 10:13 Sodium Bicarbonate FEEDTUBE PRN PRN For Clogged Feeding Tube Sodium Chloride 10 ml 10/22/18 22:00 11/16/18 22:33 Sodium Chloride Flush Syringe 10 Ml IV 10 ml BID RICK Administration Sodium Chloride 10 ml 10/22/18 20:10 11/09/18 14:29 Sodium Chloride Flush Syringe 10 Ml IV 10 ml PRN PRN Administration LINE FLUSH Nutrition/Malnutrition Assess - Dietary Evaluation Nutrition/Malnutrition Findings: Nutrition Notes Start: 10/23/18 17:03 Freq: Status: Active Protocol: Document 11/14/18 16:38 RM (Rec: 11/14/18 16:47 RM [id number]) Nutrition Notes Initial or Follow up Reassessment Other Pertinent Diagnosis Gastric peforation, bilat pneu Current Diet TF - Vital AF 1.2 at 45 ml/hr Labs/Tests Reviewed Pertinent Medications Lasix, Solu-medrol Height 5 ft 3 in Weight 63 kg [place] Body Weight (kg) 52.27 BMI 24.5 Subjective/Other Information Observed Vital 1.2 infusing at goal. Per nurse pt is tolerating TF and has rectal tube in place. Percent of energy/protein needs met: 83%/100% Burn Absent Trauma Absent #1 Nutrition Diagnosis Inadequate oral intake Diagnosis Progress(for reassessment Continues documentation) Is patient on ventilator? Yes Is Patient Ambulatory and/or Out of Bed No REE-([place]-St. Jeor-confined to bed) 1337.112 Kcal/Kg value to use for calculation 25 Approximate Energy Requirements Using 1575 kcal/Kg Calculation Used for Recommendations [facility] Additional Notes Pro needs 1.2-2g/kg (based on UBW): 60-100g/day Fluid needs 1ml/kcal Nutrition Intervention Nutrition Support: Vital 1.2 at 45 ml/hr. Water flush of 70 ml q 4 hrs. Kcal 1,296 Protein (gm) 81 Fluid (mL) 876 Fiber (gm) 5 Goal #1 TF tolerance Goal #2 TF to continue to meet at least 75% energy and pro needs Follow-Up By: 11/19/18 Additional Comments F/U: TF tolerance
[2018-11-17] MEDS: SODIUM CHLORIDE FLUSH SYRINGE 10 ML IV SCH (13:59)
--- NOTE | 2018-11-17 15:13 | Progress Note ---
Assessment and Plan Currently stable cardiac status. Convert IV Lopressor to PO and titrate as tolerated. The patient has been seen in conjunction with Dr. Roly Pablo who agrees with the assessment and plan of care. - Patient Problems (1) Atrial tachycardia, paroxysmal Current Visit: Yes Status: Acute (2) Acute heart failure with preserved ejection fraction Current Visit: Yes Status: Acute (3) Acute on chronic respiratory failure Current Visit: Yes Status: Acute (4) Perforated gastric ulcer Current Visit: Yes Status: Acute (5) Intractable nausea and vomiting Current Visit: Yes Status: Acute (6) Partial small bowel obstruction Current Visit: Yes Status: Acute (7) COPD (chronic obstructive pulmonary disease) Current Visit: Yes Status: Chronic (8) History of hypertension Current Visit: Yes Status: Chronic (9) ADWOA (acute kidney injury) Current Visit: Yes Status: Acute (10) Hypokalemia Current Visit: Yes Status: Acute Subjective Date of service: 11/17/18 Principal diagnosis: anemia Interval history: pt trached, alert, in ST HR 100s - 120s on tele. at bedside. Objective Last Vital Signs Temp 99.0 F 11/17/18 04:00 Pulse 92 H 11/17/18 14:30 Resp 16 11/17/18 14:30 BP 134/65 11/17/18 14:30 Pulse Ox 100 11/17/18 14:30 - Physical Examination General: Other (trached) HEENT: Positive: EOMI, Normocephaly, Mucus Membranes Moist Neck: Positive: neck supple, trachea midline Cardiac: Positive: Regular Rhythm, S1/S2, Tachycardia Lungs: Positive: Decreased Breath Sounds, Other (trached) Neuro: Positive: Other (trached) Abdomen: Positive: Soft. Negative: Tender Skin: Positive: Clear. Negative: Rash Musculoskeletal: Decreased Range of Motion, Normal Range of Motion Extremities: Present: normal. Absent: edema - Labs and Meds CBC 11/17/18 Range/Units 04:25 WBC 16.2 H (4.5-11.0) K/mm3 RBC 2.72 L (3.65-5.03) M/mm3 Hgb 8.7 L (10.1-14.3) gm/dl Hct 25.9 L (30.3-42.9) % Plt Count 408 (140-440) K/mm3 Comprehensive Metabolic Panel 11/17/18 Range/Units 04:25 Sodium 152 H (137-145) mmol/L Potassium 3.4 L (3.6-5.0) mmol/L Chloride 109.9 H (98-107) mmol/L Carbon Dioxide 32 H (22-30) mmol/L BUN 40 H (7-17) mg/dL Creatinine 0.5 L (0.7-1.2) mg/dL Glucose 155 H (65-100) mg/dL Calcium 7.9 L (8.4-10.2) mg/dL - Imaging and Cardiology EKG: image reviewed Echo: report reviewed (EF 50%, trace TR, minimal pericardial effusion. ) - EKG Sinus rhythms and dysrhythmias: sinus rhythm - Allied health notes Allied health notes reviewed: nursing
[2018-11-17] MEDS: LOPRESSOR PO SCH (19:59)
[2018-11-17] MEDS: TYLENOL PO PRN (20:17)
[2018-11-17] MEDS: LOVENOX SUB-Q SCH (21:50)
[2018-11-18] MEDS: HumaLOG SUB-Q SCH ×4 (00:13→18:40)
[2018-11-18] MEDS: PERCOCET 5/325 PO PRN (02:35)
[2018-11-18] MEDS: SODIUM CHLORIDE FLUSH SYRINGE 10 ML IV SCH ×3 (02:36→22:05)
[2018-11-18] MEDS: XANAX PO SCH ×2 (02:36→10:35)
[2018-11-18 05:12] LABS: Hematocrit 24.5 % (30.3-42.9); Mean Corpuscular HGB Conc 33 % (30-34); Mean Corpuscular Volume 97 fl (79-97); Platelet Count 373 K/mm3 (140-440); Red Blood Count 2.52 M/mm3 (3.65-5.03)
[2018-11-18] MEDS: SOLU-Medrol IV SCH ×3 (05:29→21:12)
[2018-11-18] MEDS: NEURONTIN PO SCH ×3 (05:30→21:08)
[2018-11-18] MEDS: DILAUDID IV PRN ×3 (05:30→23:58)
[2018-11-18 05:45] LABS: BUN/Creatinine Ratio 103; Blood Urea Nitrogen 41 mg/dL (7-17); Calcium 7.9 mg/dL (8.4-10.2); Hemolysis Index 13
[2018-11-18 06:24] LABS: Band Neutrophils # (Manual) 0.2 K/mm3; Basophils % (Manual) 0 % (0.0-1.8); Eosinophils % (Manual) 0 % (0.0-4.3); Platelet Estimate Consistent w Auto; Total Cells Counted 100
[2018-11-18] MEDS: ATIVAN IV PRN (07:46)
[2018-11-18] MEDS: LOPRESSOR PO SCH ×3 (07:47→20:00)
[2018-11-18] MEDS: PULMICORT IH SCH ×2 (08:04→19:50)
[2018-11-18] MEDS: BROVANA NEBU IH SCH ×2 (08:04→19:50)
--- NOTE | 2018-11-18 09:16 | Progress Note ---
Assessment and Plan Assessment and plan: Patient is 73-year-old female with history of hypertension, lupus, fibromyalgia, COPD, opioid dependence (follows Dr. Felix Muñiz at pain clinic) who presented to [facility] ED with complaints of intractable nausea, vomiting, diarrhea for 3 days. On initial presentation to the ED she was found to be tachycardiac with heart rate 113 BPM, leukocytosis with WBC 11.5, elevated BUN/Cr 51/2.1. Patient has history of COPD and at baseline does not require home oxygen use. She was admitted to [facility]. GI was consulted, she was evaluated. CT Abdomen revealed partial SBO versus ileus therefore surgeon consulted. Also patient became more short of breath, placed on BIPAP with no improvement then intubated 10/26/18 for acute resp failure and transferred to ICU. Obstruction series completed on 10/27 which showed improved but small bowel and stomach dilatation. Follow-up series on 10/28 showed no significant change since previous study. NG tube was removed due to patient not tolerating/refusing. Patient was placed back on BiPAP but decompensated on the night of 10/28/18 and had to be reintubated. Patient currently on mechanical ventilation. Patient has had further complications now with findings consistent with contained gastric perforation on repeat CT scan 10/30, managed conservatively. She was extubated 11/05, re-intubated 11/07/18. This is 3rd intubation so Tracheostomy was recommended and done 11/13/18. No PEG yet, for at least 2 weeks because of recent gastric perforation. Acute hypoxic respiratory failure. Patient was reintubated on 10/28/18 and currently on mechanical ventilation. Etiology secondary to COPD/pneumonia/sepsis. Extubated 11/05, re-intubated 11/07 Wean mechanical ventilation per pulmonary. Patient Initiated on T piece trial yesterday, monitor during the day. The patient tolerated 4 hours T piece yesterday. Continue to be stressed today and mechanical vent at nighttime. Gastric perforation. Repeat CT scan on 10/30 revealed pSBO resolved, no evidence for bowel ischemia. Small contained gastric perforation at lesser curve. No gross free air or contrast extravasation. Surgery recommends conservative management Sepsis/candidemia. Etiology initially most likely related to aspiration pneumonia and gastric perforation. Patient now with Ayla glabrata. PICC line removed. Repeat fungal cultures are negative. Complete a 14 day course of antifungals. Removed current central line and inserted midline. ID started fluconazole 11/13/18 and discontinued micafungin. Thrombocytopenia. Etiology likely secondary to sepsis. Hematology following. Bilateral upper lobe/aspiration pneumonia. Sputum culture positive for Escherichia coli and stenotrophomonas. Continue antibiotics per ID. Bilateral pleural effusions. Acute exacerbation COPD. Scheduled Duo Nebs and Pulmicort; albuterol when necessary Presumed aspiration pneumonia versus healthcare associated pneumonia. Tracheal aspirate cultures from 10/28 with Escherichia coli and stenotrophomonas. Completed antibiotics. Hypokalemia. Replete potassium as needed. Hypertension. IV hydralazine when necessary Lupus. Supportive care Fibromyalgia. supportive care History of opioid dependence ADWOA due to vasomotor nephropathy, now resolved The high probability of a clinically significant, sudden or life threatening deterioration of the [GI and respiratory] system(s) required my full and direct attention, intervention and personal management. The aggregate critical care time was [33] minutes. This time is in addition to time spent performing reported procedures but includes the following: [x] Data Review and interpretation [x] Patient assessment and monitoring of vital signs [x] Documentation [x] Medication orders and management History Interval history: Patient had trach on 11/13 Diarrhea No abd pain currently anxious Hospitalist Physical - Physical exam Narrative exam: Gen: Not in distress, tracheostomy HEENT: Normocephalic, atraumatic, NG tube Neck: supple, no JVD Heart: S1 and S2 reg, no murmurs, rubs or gallop Lungs: Clear bilat, decreased breath sounds bilat. no wheeze Abd: soft, non tender, no rebound tenderness, non distended, BS present Ext: No edema, no clubbing, no cyanosis, Neuro: Awake,alert, follows commands - Constitutional Vitals: Temp Pulse Resp BP Pulse Ox 98.8 F 91 H 16 126/50 99 11/18/18 02:35 11/18/18 09:00 11/18/18 09:00 11/18/18 09:00 11/18/18 09:00 General appearance: Present: other (intubated, opens eyes to commands) Results - Labs CBC & Chem 7: 11/18/18 04:26 11/18/18 04:26 Labs: Laboratory Last Values WBC 18.3 K/mm3 (4.5-11.0) H 11/18/18 04:26 RBC 2.52 M/mm3 (3.65-5.03) L 11/18/18 04:26 Hgb 8.0 gm/dl (10.1-14.3) L 11/18/18 04:26 Hct 24.5 % (30.3-42.9) L 11/18/18 04:26 MCV 97 fl (79-97) 11/18/18 04:26 MCH 32 pg (28-32) 11/18/18 04:26 MCHC 33 % (30-34) 11/18/18 04:26 RDW 16.0 % (13.2-15.2) H 11/18/18 04:26 Plt Count 373 K/mm3 (140-440) 11/18/18 04:26 Lymph % (Auto) Skin Therapist 11/14/18 07:59 [place] % (Auto) Skin Therapist 11/14/18 07:59 Eos % (Auto) Skin Therapist 11/14/18 07:59 Baso % (Auto) Skin Therapist 11/14/18 07:59 Lymph # Skin Therapist 11/14/18 07:59 [facility] # Skin Therapist 11/14/18 07:59 Eos # Skin Therapist 11/14/18 07:59 Baso # Skin Therapist 11/14/18 07:59 Add Manual Diff Complete 11/18/18 04:26 Total Counted 100 11/18/18 04:26 Seg Neutrophils % Skin Therapist 11/17/18 04:25 Seg Neuts % (Manual) 96.0 % (40.0-70.0) H 11/18/18 04:26 1.0 % 11/18/18 04:26 0 % (13.4-35.0) L 11/18/18 04:26 Reactive Lymphs % (Man) 0 % 11/18/18 04:26 3.0 % (0.0-7.3) 11/18/18 04:26 0 % (0.0-4.3) 11/18/18 04:26 0 % (0.0-1.8) 11/18/18 04:26 0 % 11/18/18 04:26 0 % 11/18/18 04:26 0 % 11/18/18 04:26 0 % 11/18/18 04:26 Nucleated RBC % Not Reportable 11/18/18 04:26 Seg Neutrophils # Skin Therapist 11/14/18 07:59 Seg Neutrophils # Man 17.6 K/mm3 (1.8-7.7) H 11/18/18 04:26 Band Neutrophils # 0.2 K/mm3 11/18/18 04:26 0.0 K/mm3 (1.2-5.4) L 11/18/18 04:26 Abs React Lymphs (Man) 0.0 K/mm3 11/18/18 04:26 0.5 K/mm3 (0.0-0.8) 11/18/18 04:26 0.0 K/mm3 (0.0-0.4) 11/18/18 04:26 0.0 K/mm3 (0.0-0.1) 11/18/18 04:26 0.0 K/mm3 11/18/18 04:26 0.0 K/mm3 11/18/18 04:26 0.0 K/mm3 11/18/18 04:26 Blast Cells # 0.0 K/mm3 11/18/18 04:26 WBC Morphology Not Reportable 11/18/18 04:26 WBC Morphology TNR 11/18/18 04:26 Hypersegmented Neuts Not Reportable 11/18/18 04:26 Hyposegmented Neuts Not Reportable 11/18/18 04:26 Hypogranular Neuts Not Reportable 11/18/18 04:26 Not Reportable 11/18/18 04:26 Not Reportable 11/18/18 04:26 Not Reportable 11/18/18 04:26 Not Reportable 11/18/18 04:26 Not Reportable 11/18/18 04:26 Not Reportable 11/18/18 04:26 Consistent w auto 11/18/18 04:26 Not Reportable 11/18/18 04:26 Plt Clumps, EDTA Not Reportable 11/18/18 04:26 Not Reportable 11/18/18 04:26 Not Reportable 11/18/18 04:26 Not Reportable 11/18/18 04:26 Plt Morphology Comment Not Reportable 11/18/18 04:26 RBC Morphology Not Reportable 11/18/18 04:26 Dimorphic RBCs Not Reportable 11/18/18 04:26 Not Reportable 11/18/18 04:26 Not Reportable 11/18/18 04:26 Not Reportable 11/18/18 04:26 Not Reportable 11/18/18 04:26 Not Reportable 11/18/18 04:26 Not Reportable 11/18/18 04:26 Not Reportable 11/18/18 04:26 Not Reportable 11/18/18 04:26 Not Reportable 11/18/18 04:26 Not Reportable 11/18/18 04:26 Not Reportable 11/18/18 04:26 Not Reportable 11/18/18 04:26 Few 11/17/18 04:25 Not Reportable 11/18/18 04:26 Not Reportable 11/18/18 04:26 Not Reportable 11/18/18 04:26 Not Reportable 11/18/18 04:26 Not Reportable 11/18/18 04:26 Not Reportable 11/18/18 04:26 Not Reportable 11/18/18 04:26 Acanthocytes (Spur) Not Reportable 11/18/18 04:26 Rouleaux Not Reportable 11/18/18 04:26 Not Reportable 11/18/18 04:26 Not Reportable 11/18/18 04:26 Not Reportable 11/18/18 04:26 Not Reportable 11/18/18 04:26 Hem Pathologist Commnt No 11/18/18 04:26 Heparin Anti-Xa, Unfract Negative (Negative) 10/30/18 13:58 POC ABG pH 7.446 (7.35-7.45) 11/15/18 11:33 POC ABG pCO2 46.1 (35-45) H 11/15/18 11:33 POC ABG pO2 107 (80-105) H 11/15/18 11:33 POC ABG HCO3 31.8 (22-26 mml/L) 11/15/18 11:33 POC ABG Total CO2 33 (23-27mmol/L) 11/15/18 11:33 POC ABG O2 Sat 98 11/15/18 11:33 POC ABG Base Excess 8 ((-2) - (+3)mmol/L) 11/15/18 11:33 30 % 11/15/18 11:33 Sodium 149 mmol/L (137-145) H 11/18/18 04:26 Potassium 4.0 mmol/L (3.6-5.0) 11/18/18 04:26 Chloride 110.5 mmol/L (98-107) H 11/18/18 04:26 Carbon Dioxide 30 mmol/L (22-30) 11/18/18 04:26 13 mmol/L 11/18/18 04:26 BUN 41 mg/dL (7-17) H 11/18/18 04:26 0.4 mg/dL (0.7-1.2) L 11/18/18 04:26 Estimated GFR > 60 ml/min 11/18/18 04:26 103 % 11/18/18 04:26 Glucose 127 mg/dL (65-100) H 11/18/18 04:26 POC Glucose 128 (70-105) H 11/18/18 05:29 Lactic Acid 1.60 mmol/L (0.7-2.0) 10/26/18 15:03 Calcium 7.9 mg/dL (8.4-10.2) L 11/18/18 04:26 Phosphorus 2.80 mg/dL (2.5-4.5) 11/11/18 05:50 Magnesium 1.80 mg/dL (1.7-2.3) 11/11/18 05:50 Iron 31 ug/dL (37-170) L 11/14/18 03:28 TIBC 173 mcg/dL (250-450) L 11/14/18 03:28 510.3 ng/mL (13.0-400.0) H 11/14/18 03:28 0.30 mg/dL (0.1-1.2) 11/11/18 05:50 AST 26 units/L (5-40) 11/11/18 05:50 ALT 28 units/L (7-56) 11/11/18 05:50 142 units/L (35-129) H 11/11/18 05:50 NT-Pro-B Natriuret Pep 4507 pg/mL (0-900) H 11/07/18 04:55 4.4 g/dL (6.3-8.2) L 11/11/18 05:50 2.1 g/dL (3.9-5) L 11/11/18 05:50 0.9 % 11/11/18 05:50 Triglycerides 132 mg/dL (2-149) 11/01/18 06:40 10 units/L (13-60) L 10/22/18 15:54 See scanned result 10/30/18 13:58 TSH 3.150 mlU/mL (0.270-4.200) 10/31/18 17:00 Free T4 0.49 ng/dL (0.76-1.46) L 10/31/18 17:00 Dulce (Yellow) 10/22/18 19:10 Clear (Clear) 10/22/18 19:10 5.0 (5.0-7.0) 10/22/18 19:10 Ur Specific [place] 1.018 (1.003-1.030) 10/22/18 19:10 30 mg/dl mg/dL (Negative) 10/22/18 19:10 Neg mg/dL (Negative) 10/22/18 19:10 Tr mg/dL (Negative) 10/22/18 19:10 Neg (Negative) 10/22/18 19:10 Neg (Negative) 10/22/18 19:10 Neg (Negative) 10/22/18 19:10 < 2.0 mg/dL (<2.0) 10/22/18 19:10 Ur Leukocyte Esterase Neg (Negative) 10/22/18 19:10 1.0 /HPF (0.0-6.0) 10/22/18 19:10 3.0 /HPF (0.0-6.0) 10/22/18 19:10 Heparin-induced Plt Ab Negative (Negative) 10/30/18 13:58 UF Heparin High Dose 0 % Release 10/30/18 13:58 KIMO UFH Low Dose 0.1 0 % Release 10/30/18 13:58 KIMO UFH Low Dose 0.5 0 % Release 10/30/18 13:58 Active Medications - Current Medications Current Medications: Generic Name Dose Route Start Last Admin Trade Name Freq PRN Reason Stop Dose Admin Acetaminophen 650 mg 10/22/18 20:10 11/17/18 20:17 Tylenol PO 650 mg Q4H PRN Administration Pain MILD(1-3)/Fever >100.5/PORTER Albuterol 2.5 mg 10/22/18 20:14 11/05/18 16:35 Proventil IH 2.5 mg Q4HRT PRN Administration Shortness Of Breath Alprazolam 0.5 mg 11/17/18 10:00 11/18/18 02:36 Xanax PO 0.5 mg Q8H RICK Administration Lipase/Protease/Amylase 1 each 11/05/18 10:13 Gwendolyn Simpson 10,500 Unit FEEDTUBE PRN PRN For Clogged Feeding Tube Arformoterol Tartrate 15 mcg 11/05/18 20:00 11/18/18 08:04 Brovana Nebu IH 15 mcg Q12HRT RICK Administration Budesonide 0.5 mg 10/23/18 08:00 11/18/18 08:04 Pulmicort IH 0.5 mg Q12HRT RICK Administration Dextrose 50 ml 10/26/18 23:40 10/27/18 00:20 D50w (25gm) Syringe IV 50 ml PRN PRN Administration Hypoglycemia Enoxaparin Sodium 40 mg 11/14/18 22:00 11/17/18 21:50 Lovenox SUB-Q 40 mg QDAY@2200 RICK Administration Gabapentin 600 mg 11/12/18 10:00 11/18/18 05:30 Neurontin PO 600 mg Q8HR RICK Administration Hydralazine HCl 10 mg 10/22/18 21:41 11/07/18 00:04 Apresoline IV 10 mg Q4HR PRN Administration Blood Pressure Hydromorphone HCl 1 mg 11/12/18 09:55 11/18/18 05:30 Dilaudid IV 1 mg Q4H PRN Administration Pain , Severe (7-10) Hydrophilic Ointment 1 applic 11/07/18 09:14 Vaseline Lip Therapy TP Q2HR PRN Dry Lips Insulin Human Isoph/Insulin Regular 12 unit 11/10/18 22:00 11/17/18 21:50 Humulin 70/30 SUB-Q 12 unit BID RICK Administration Insulin Human Lispro 0 unit 10/29/18 12:00 11/18/18 05:31 Humalog SUB-Q Not Given Q6HR [facility] Protocol Lansoprazole 30 mg 11/17/18 10:00 11/17/18 09:14 Prevacid Solutab FEEDTUBE 30 mg QDAY RICK Administration Lorazepam 1 mg 11/06/18 11:00 11/18/18 07:46 Ativan IV 1 mg Q6H PRN Administration Anxiety Methylprednisolone Sodium Succinate 20 mg 11/17/18 14:00 11/18/18 05:29 Solu-Medrol IV 20 mg Q8HR RICK Administration Metoprolol Tartrate 25 mg 11/17/18 20:00 11/18/18 07:47 Lopressor PO 25 mg TID RICK Administration Multi-Ingred Cream/Lotion/Oil/Oint 1 applic 11/07/18 09:14 Artificial Tears Ophth Oint OU Q4HR PRN Dry Eye(s) Ondansetron HCl 4 mg 10/24/18 10:05 10/25/18 17:26 Zofran IV 4 mg Q6H PRN Administration Nausea And Vomiting Oxycodone/Acetaminophen 1 tab 11/05/18 11:16 11/18/18 02:35 Percocet 5/325 PO 1 tab Q6H PRN Administration Pain, Moderate (4-6) Phenol 1 spray 10/28/18 10:16 Chloraseptic MM PRN PRN Sore Throat Promethazine HCl 25 mg 10/22/18 20:10 10/22/18 21:21 Phenergan [place] 25 mg Q6H PRN Administration Nausea And Vomiting Quetiapine Fumarate 300 mg 11/12/18 10:00 11/17/18 09:14 Seroquel PO 300 mg DAILY RICK Administration Simple Syrup 15 ml 11/05/18 10:13 Simple Syrup FEEDTUBE PRN PRN Hypoglycemia Simple Syrup 30 ml 11/05/18 10:13 Simple Syrup FEEDTUBE PRN PRN Hypoglycemia Sodium Bicarbonate 325 mg 11/05/18 10:13 Sodium Bicarbonate FEEDTUBE PRN PRN For Clogged Feeding Tube Sodium Chloride 10 ml 10/22/18 22:00 11/18/18 02:36 Sodium Chloride Flush Syringe 10 Ml IV 10 ml BID RICK Administration Sodium Chloride 10 ml 10/22/18 20:10 11/09/18 14:29 Sodium Chloride Flush Syringe 10 Ml IV 10 ml PRN PRN Administration LINE FLUSH Nutrition/Malnutrition Assess - Dietary Evaluation Nutrition/Malnutrition Findings: Nutrition Notes Start: 10/23/18 17:03 Freq: Status: Active Protocol: Document 11/14/18 16:38 RM (Rec: 11/14/18 16:47 RM [id number]) Nutrition Notes Initial or Follow up Reassessment Other Pertinent Diagnosis Gastric peforation, bilat pneu Current Diet TF - Vital AF 1.2 at 45 ml/hr Labs/Tests Reviewed Pertinent Medications Laskeke, Solu-medrol Height 5 ft 3 in Weight 63 kg [place] Body Weight (kg) 52.27 BMI 24.5 Subjective/Other Information Observed Vital 1.2 infusing at goal. Per nurse pt is tolerating TF and has rectal tube in place. Percent of energy/protein needs met: 83%/100% Burn Absent Trauma Absent #1 Nutrition Diagnosis Inadequate oral intake Diagnosis Progress(for reassessment Continues documentation) Is patient on ventilator? Yes Is Patient Ambulatory and/or Out of Bed No REE-([facility]-confined to bed) 1337.112 Kcal/Kg value to use for calculation 25 Approximate Energy Requirements Using 1575 kcal/Kg Calculation Used for Recommendations [facility] Additional Notes Pro needs 1.2-2g/kg (based on UBW): 60-100g/day Fluid needs 1ml/kcal Nutrition Intervention Nutrition Support: Vital 1.2 at 45 ml/hr. Water flush of 70 ml q 4 hrs. Kcal 1,296 Protein (gm) 81 Fluid (mL) 876 Fiber (gm) 5 Goal #1 TF tolerance Goal #2 TF to continue to meet at least 75% energy and pro needs Follow-Up By: 11/19/18 Additional Comments F/U: TF tolerance
[2018-11-18] MEDS: PREVACID SOLUTAB FEEDTUBE SCH (09:59)
[2018-11-18] MEDS: DURAGESIC TD SCH (11:00)
--- NOTE | 2018-11-18 11:00 | Progress Note ---
Assessment and Plan 73 y/o female with bowel obstruction and now acute respiratory failure with hypercapnea, likely multifactorial from pain medications, anti-psychotic therapy and inability to take deep breaths for ventilation, now with fungemia from picc line placement. 1. Patient trached now and doing daily PSV trials. Will continue 2. Finished antifungal therapy 3. Tube feeds at goal now. 4. Dropped steroids to 20q8. Will reassess later this week. 5. CM aware of need for alf placement post trach. Referrals have been sent out. 6. Stopping lasix today. 7. Continue PT, did well with this. 8. Stopped xanax and started clonipin TID. Changed Ativan to 0.5 PRN and started fentayl patch to help get rid of some of the PRN IV therapies. CCT 31 minutes. Subjective Date of service: 11/18/18 Principal diagnosis: anemia Interval history: No acute events. Xanax did not help patient at all. Restarted some of her home medications now that she can tolerate PO and tube feeds are at goal. Objective Vital Signs - 12hr 11/17/18 11/17/18 11/17/18 23:00 23:02 23:27 Temperature 99.4 F Pulse Rate 98 H 94 H Pulse Rate [ Anterior Bilateral Throughout] Pulse Rate [ From Monitor] Respiratory 15 16 Rate Respiratory Rate [Anterior Bilateral Throughout] Blood Pressure 109/45 109/45 O2 Sat by Pulse 95 95 Oximetry O2 Sat by Pulse Oximetry [ Assessment] 11/17/18 11/18/18 11/18/18 23:30 00:00 00:30 Temperature Pulse Rate 92 H 99 H 92 H Pulse Rate [ Anterior Bilateral Throughout] Pulse Rate [ 99 H From Monitor] Respiratory 16 17 16 Rate Respiratory Rate [Anterior Bilateral Throughout] Blood Pressure 105/53 115/51 108/40 O2 Sat by Pulse 95 96 96 Oximetry O2 Sat by Pulse Oximetry [ Assessment] 11/18/18 11/18/18 11/18/18 00:52 01:00 01:30 Temperature Pulse Rate 96 H 104 H 105 H Pulse Rate [ Anterior Bilateral Throughout] Pulse Rate [ From Monitor] Respiratory 17 16 Rate Respiratory Rate [Anterior Bilateral Throughout] Blood Pressure 113/43 113/43 111/50 O2 Sat by Pulse 96 97 97 Oximetry O2 Sat by Pulse 96 Oximetry [ Assessment] 11/18/18 11/18/18 11/18/18 02:00 02:30 02:35 Temperature 98.8 F Pulse Rate 108 H 104 H Pulse Rate [ Anterior Bilateral Throughout] Pulse Rate [ From Monitor] Respiratory 18 17 Rate Respiratory Rate [Anterior Bilateral Throughout] Blood Pressure 123/51 124/60 O2 Sat by Pulse 95 100 Oximetry O2 Sat by Pulse Oximetry [ Assessment] 11/18/18 11/18/18 11/18/18 03:00 03:30 04:00 Temperature Pulse Rate 91 H 92 H 100 H Pulse Rate [ Anterior Bilateral Throughout] Pulse Rate [ 100 H From Monitor] Respiratory 16 16 16 Rate Respiratory Rate [Anterior Bilateral Throughout] Blood Pressure 116/51 108/53 100/52 O2 Sat by Pulse 100 100 100 Oximetry O2 Sat by Pulse Oximetry [ Assessment] 11/18/18 11/18/18 11/18/18 04:30 04:39 05:00 Temperature Pulse Rate 89 88 85 Pulse Rate [ Anterior Bilateral Throughout] Pulse Rate [ From Monitor] Respiratory 16 16 Rate Respiratory Rate [Anterior Bilateral Throughout] Blood Pressure 125/61 125/61 112/49 O2 Sat by Pulse 100 100 100 Oximetry O2 Sat by Pulse Oximetry [ Assessment] 11/18/18 11/18/18 11/18/18 05:30 06:00 06:30 Temperature Pulse Rate 109 H 89 92 H Pulse Rate [ Anterior Bilateral Throughout] Pulse Rate [ From Monitor] Respiratory 15 16 16 Rate Respiratory Rate [Anterior Bilateral Throughout] Blood Pressure 131/103 127/52 113/53 O2 Sat by Pulse 100 99 100 Oximetry O2 Sat by Pulse Oximetry [ Assessment] 11/18/18 11/18/18 11/18/18 07:00 07:30 07:47 Temperature Pulse Rate 108 H 111 H 111 H Pulse Rate [ Anterior Bilateral Throughout] Pulse Rate [ From Monitor] Respiratory 18 15 Rate Respiratory Rate [Anterior Bilateral Throughout] Blood Pressure 136/52 125/63 125/63 O2 Sat by Pulse 100 98 Oximetry O2 Sat by Pulse Oximetry [ Assessment] 11/18/18 11/18/18 11/18/18 08:00 08:08 08:30 Temperature 98.6 F Pulse Rate 103 H 104 H 92 H Pulse Rate [ 100 H Anterior Bilateral Throughout] Pulse Rate [ 95 H From Monitor] Respiratory 16 19 Rate Respiratory 16 Rate [Anterior Bilateral Throughout] Blood Pressure 123/55 123/55 130/59 O2 Sat by Pulse 96 94 100 Oximetry O2 Sat by Pulse 100 Oximetry [ Assessment] 11/18/18 11/18/18 11/18/18 09:00 09:59 10:45 Temperature Pulse Rate 91 H 107 H Pulse Rate [ Anterior Bilateral Throughout] Pulse Rate [ From Monitor] Respiratory 16 18 Rate Respiratory Rate [Anterior Bilateral Throughout] Blood Pressure 126/50 106/45 O2 Sat by Pulse 99 99 Oximetry O2 Sat by Pulse Oximetry [ Assessment] Constitutional: alert Eyes: non-icteric ENT: other (trach in position) Neck: supple, no JVD, other (trach is midline) Effort: mildly labored Ascultation: Bilateral: clear, diminished breath sounds, wheezes (sporadic), rales, rhonchi (sporadic) Percussion: Bilateral: not dull Cardiovascular: regular rate and rhythm Gastrointestinal: hypoactive bowel sounds, non-tender, non-distended, other Integumentary: normal Extremities: no edema Neurologic: normal mental status, non-focal exam Psychiatric: anxious CBC and BMP: 11/18/18 04:26 11/18/18 04:26 ABG, PT/INR, D-dimer: ABG POC ABG pH 7.446 (7.35-7.45) 11/15/18 11:33 POC ABG pCO2 46.1 (35-45) H 11/15/18 11:33 POC ABG pO2 107 (80-105) H 11/15/18 11:33 POC ABG HCO3 31.8 (22-26 mml/L) 11/15/18 11:33 POC ABG Total CO2 33 (23-27mmol/L) 11/15/18 11:33 POC ABG O2 Sat 98 11/15/18 11:33 Abnormal lab findings: Abnormal Labs 10/22/18 10/22/18 10/22/18 15:31 15:54 15:54 WBC 11.5 H RBC 5.35 H Hgb 17.4 H Hct 50.3 H MCV MCH 33 H MCHC 35 H RDW Plt Count Lymph % (Auto) 12.6 L [place] % (Auto) 14.8 H Lymph # [place] # 1.7 H Seg Neutrophils % 72.5 H Seg Neuts % (Manual) Lymphocytes % (Manual) Seg Neutrophils # 8.3 H Seg Neutrophils # Man Lymphocytes # (Manual) POC ABG pH POC ABG pCO2 POC ABG pO2 Sodium 134 L Potassium Chloride 88.1 L Carbon Dioxide BUN 51 H Creatinine 2.1 H Glucose 166 H POC Glucose Calcium Phosphorus Magnesium Iron TIBC Ferritin Alkaline Phosphatase NT-Pro-B Natriuret Pep Total Protein Albumin 3.4 L Lipase 10 L Free T4 10/23/18 10/23/18 10/23/18 04:32 04:32 10:53 WBC RBC Hgb Hct MCV MCH MCHC RDW Plt Count Lymph % (Auto) 10.2 L [place] % (Auto) 14.7 H Lymph # 0.7 L [place] # 1.0 H Seg Neutrophils % 74.9 H Seg Neuts % (Manual) Lymphocytes % (Manual) Seg Neutrophils # Seg Neutrophils # Man Lymphocytes # (Manual) POC ABG pH POC ABG pCO2 POC ABG pO2 Sodium Potassium 3.1 L D 3.5 L Chloride Carbon Dioxide BUN 41 H 37 H Creatinine Glucose 111 H 110 H POC Glucose Calcium 8.1 L 8.1 L Phosphorus Magnesium Iron TIBC Ferritin Alkaline Phosphatase NT-Pro-B Natriuret Pep Total Protein Albumin Lipase Free T4 10/24/18 10/24/18 10/25/18 05:34 05:34 04:51 WBC RBC Hgb Hct MCV MCH MCHC RDW Plt Count Lymph % (Auto) [place] % (Auto) Lymph # [place] # Seg Neutrophils % Seg Neuts % (Manual) Lymphocytes % (Manual) Seg Neutrophils # Seg Neutrophils # Man Lymphocytes # (Manual) POC ABG pH POC ABG pCO2 POC ABG pO2 Sodium Potassium 3.2 L 3.1 L Chloride 109.8 H 114.2 H Carbon Dioxide 17 L D BUN 21 H Creatinine Glucose 134 H 171 H POC Glucose Calcium 7.7 L 7.0 L Phosphorus 0.80 L* Magnesium Iron TIBC Ferritin Alkaline Phosphatase NT-Pro-B Natriuret Pep Total Protein Albumin Lipase Free T4 10/25/18 10/26/18 10/26/18 06:07 02:58 04:57 WBC RBC Hgb Hct MCV 99 H MCH 33 H MCHC RDW Plt Count Lymph % (Auto) [place] % (Auto) Lymph # [place] # Seg Neutrophils % Seg Neuts % (Manual) Lymphocytes % (Manual) Seg Neutrophils # Seg Neutrophils # Man Lymphocytes # (Manual) POC ABG pH 7.090 L 7.320 L POC ABG pCO2 65.0 H 32.8 L POC ABG pO2 76 L Sodium Potassium Chloride Carbon Dioxide BUN Creatinine Glucose POC Glucose Calcium Phosphorus Magnesium Iron TIBC Ferritin Alkaline Phosphatase NT-Pro-B Natriuret Pep Total Protein Albumin Lipase Free T4 10/26/18 10/26/18 10/26/18 06:03 06:03 11:52 WBC 23.8 H RBC Hgb 15.4 H Hct 46.1 H D MCV MCH MCHC RDW Plt Count Lymph % (Auto) [place] % (Auto) Lymph # [place] # Seg Neutrophils % Seg Neuts % (Manual) Lymphocytes % (Manual) Seg Neutrophils # Seg Neutrophils # Man Lymphocytes # (Manual) POC ABG pH POC ABG pCO2 POC ABG pO2 Sodium Potassium Chloride 109.5 H Carbon Dioxide 18 L BUN Creatinine Glucose 128 H POC Glucose 117 H Calcium 8.3 L D Phosphorus Magnesium Iron TIBC Ferritin Alkaline Phosphatase NT-Pro-B Natriuret Pep Total Protein Albumin Lipase Free T4 10/26/18 10/26/18 10/26/18 13:54 17:10 17:32 WBC RBC Hgb Hct MCV MCH MCHC RDW Plt Count Lymph % (Auto) [place] % (Auto) Lymph # [place] # Seg Neutrophils % Seg Neuts % (Manual) Lymphocytes % (Manual) Seg Neutrophils # Seg Neutrophils # Man Lymphocytes # (Manual) POC ABG pH 7.215 L POC ABG pCO2 31.8 L POC ABG pO2 69 L 204 H Sodium Potassium 3.0 L D Chloride 114.5 H Carbon Dioxide 21 L BUN Creatinine Glucose POC Glucose Calcium 7.6 L Phosphorus Magnesium 1.40 L Iron TIBC Ferritin Alkaline Phosphatase NT-Pro-B Natriuret Pep Total Protein Albumin Lipase Free T4 10/26/18 10/27/18 10/27/18 23:13 00:40 01:09 WBC RBC Hgb Hct MCV MCH MCHC RDW Plt Count Lymph % (Auto) [place] % (Auto) Lymph # [place] # Seg Neutrophils % Seg Neuts % (Manual) Lymphocytes % (Manual) Seg Neutrophils # Seg Neutrophils # Man Lymphocytes # (Manual) POC ABG pH POC ABG pCO2 POC ABG pO2 Sodium Potassium 3.4 L Chloride 115.0 H Carbon Dioxide 14 L D BUN Creatinine Glucose 228 H POC Glucose 48 L 264 H Calcium 7.1 L Phosphorus Magnesium Iron TIBC Ferritin Alkaline Phosphatase NT-Pro-B Natriuret Pep Total Protein Albumin Lipase Free T4 05/27/19 05/27/19 05/27/19 05:00 05:00 05:16 WBC 22.5 H RBC Hgb 14.7 H Hct 44.4 H MCV MCH MCHC RDW Plt Count Lymph % (Auto) [place] % (Auto) Lymph # [place] # Seg Neutrophils % Seg Neuts % (Manual) Lymphocytes % (Manual) Seg Neutrophils # Seg Neutrophils # Man Lymphocytes # (Manual) POC ABG pH 7.304 L POC ABG pCO2 POC ABG pO2 116 H Sodium Potassium Chloride 118.4 H Carbon Dioxide 16 L BUN Creatinine Glucose 123 H POC Glucose Calcium 7.7 L Phosphorus Magnesium 2.60 H Iron TIBC Ferritin Alkaline Phosphatase NT-Pro-B Natriuret Pep Total Protein Albumin Lipase Free T4 10/28/18 10/28/18 10/28/18 04:25 04:25 15:37 WBC 23.5 H RBC Hgb Hct MCV MCH MCHC RDW Plt Count Lymph % (Auto) [place] % (Auto) Lymph # [place] # Seg Neutrophils % Seg Neuts % (Manual) Lymphocytes % (Manual) Seg Neutrophils # Seg Neutrophils # Man Lymphocytes # (Manual) POC ABG pH POC ABG pCO2 POC ABG pO2 Sodium 147 H Potassium Chloride 116.9 H Carbon Dioxide 16 L BUN 23 H Creatinine Glucose POC Glucose 114 H Calcium 8.0 L Phosphorus Magnesium Iron TIBC Ferritin Alkaline Phosphatase NT-Pro-B Natriuret Pep Total Protein Albumin Lipase Free T4 10/28/18 10/28/18 10/28/18 20:33 22:07 23:31 WBC RBC Hgb Hct MCV MCH MCHC RDW Plt Count Lymph % (Auto) [place] % (Auto) Lymph # [place] # Seg Neutrophils % Seg Neuts % (Manual) Lymphocytes % (Manual) Seg Neutrophils # Seg Neutrophils # Man Lymphocytes # (Manual) POC ABG pH 7.202 L 7.235 L POC ABG pCO2 POC ABG pO2 71 L Sodium Potassium Chloride Carbon Dioxide BUN Creatinine Glucose POC Glucose 207 H Calcium Phosphorus Magnesium Iron TIBC Ferritin Alkaline Phosphatase NT-Pro-B Natriuret Pep Total Protein Albumin Lipase Free T4 10/29/18 10/29/18 10/29/18 04:30 04:30 05:26 WBC 21.1 H RBC Hgb Hct MCV MCH MCHC RDW Plt Count Lymph % (Auto) [place] % (Auto) Lymph # [place] # Seg Neutrophils % Seg Neuts % (Manual) 97.0 H Lymphocytes % (Manual) 3.0 L Seg Neutrophils # Seg Neutrophils # Man 20.5 H Lymphocytes # (Manual) 0.6 L POC ABG pH 7.305 L POC ABG pCO2 30.5 L POC ABG pO2 75 L Sodium 147 H Potassium 3.5 L Chloride 120.0 H Carbon Dioxide 17 L BUN 30 H Creatinine Glucose 246 H POC Glucose Calcium 7.9 L Phosphorus Magnesium Iron TIBC Ferritin Alkaline Phosphatase NT-Pro-B Natriuret Pep Total Protein Albumin Lipase Free T4 10/29/18 10/29/18 10/29/18 05:36 11:39 18:00 WBC RBC Hgb Hct MCV MCH MCHC RDW Plt Count Lymph % (Auto) [place] % (Auto) Lymph # [place] # Seg Neutrophils % Seg Neuts % (Manual) Lymphocytes % (Manual) Seg Neutrophils # Seg Neutrophils # Man Lymphocytes # (Manual) POC ABG pH POC ABG pCO2 POC ABG pO2 Sodium Potassium Chloride Carbon Dioxide BUN Creatinine Glucose POC Glucose 204 H 224 H 221 H Calcium Phosphorus Magnesium Iron TIBC Ferritin Alkaline Phosphatase NT-Pro-B Natriuret Pep Total Protein Albumin Lipase Free T4 10/29/18 10/30/18 10/30/18 23:17 05:00 05:00 WBC 21.4 H RBC Hgb Hct MCV MCH MCHC RDW Plt Count 134 L Lymph % (Auto) [place] % (Auto) Lymph # [place] # Seg Neutrophils % Seg Neuts % (Manual) 97.0 H Lymphocytes % (Manual) 3.0 L Seg Neutrophils # Seg Neutrophils # Man 20.8 H Lymphocytes # (Manual) 0.6 L POC ABG pH POC ABG pCO2 POC ABG pO2 Sodium 148 H Potassium 3.1 L Chloride 120.3 H Carbon Dioxide 18 L BUN 31 H Creatinine Glucose 205 H POC Glucose 181 H Calcium 8.0 L Phosphorus Magnesium Iron TIBC Ferritin Alkaline Phosphatase NT-Pro-B Natriuret Pep Total Protein Albumin Lipase Free T4 10/30/18 10/30/18 10/30/18 05:14 05:25 05:26 WBC RBC Hgb Hct MCV MCH MCHC RDW Plt Count Lymph % (Auto) [place] % (Auto) Lymph # [place] # Seg Neutrophils % Seg Neuts % (Manual) Lymphocytes % (Manual) Seg Neutrophils # Seg Neutrophils # Man Lymphocytes # (Manual) POC ABG pH 7.296 L 7.245 L POC ABG pCO2 31.1 L POC ABG pO2 54 L 59 L Sodium Potassium Chloride Carbon Dioxide BUN Creatinine Glucose POC Glucose 199 H Calcium Phosphorus Magnesium Iron TIBC Ferritin Alkaline Phosphatase NT-Pro-B Natriuret Pep Total Protein Albumin Lipase Free T4 10/30/18 10/30/18 10/31/18 13:23 18:25 00:22 WBC RBC Hgb Hct MCV MCH MCHC RDW Plt Count Lymph % (Auto) [place] % (Auto) Lymph # [place] # Seg Neutrophils % Seg Neuts % (Manual) Lymphocytes % (Manual) Seg Neutrophils # Seg Neutrophils # Man Lymphocytes # (Manual) POC ABG pH POC ABG pCO2 POC ABG pO2 Sodium Potassium Chloride Carbon Dioxide BUN Creatinine Glucose POC Glucose 146 H 158 H 162 H Calcium Phosphorus Magnesium Iron TIBC Ferritin Alkaline Phosphatase NT-Pro-B Natriuret Pep Total Protein Albumin Lipase Free T4 10/31/18 10/31/18 10/31/18 04:39 05:14 07:05 WBC RBC Hgb Hct MCV MCH MCHC RDW Plt Count Lymph % (Auto) [place] % (Auto) Lymph # [place] # Seg Neutrophils % Seg Neuts % (Manual) Lymphocytes % (Manual) Seg Neutrophils # Seg Neutrophils # Man Lymphocytes # (Manual) POC ABG pH 7.238 L POC ABG pCO2 POC ABG pO2 Sodium Potassium Chloride 115.8 H Carbon Dioxide 18 L BUN 39 H Creatinine 1.3 H Glucose 167 H POC Glucose 145 H Calcium 7.5 L Phosphorus 1.80 L Magnesium Iron TIBC Ferritin Alkaline Phosphatase NT-Pro-B Natriuret Pep Total Protein Albumin Lipase Free T4 10/31/18 10/31/18 10/31/18 10:43 12:03 17:00 WBC RBC Hgb Hct MCV MCH MCHC RDW Plt Count Lymph % (Auto) [place] % (Auto) Lymph # [place] # Seg Neutrophils % Seg Neuts % (Manual) Lymphocytes % (Manual) Seg Neutrophils # Seg Neutrophils # Man Lymphocytes # (Manual) POC ABG pH 7.304 L POC ABG pCO2 33.3 L POC ABG pO2 Sodium Potassium Chloride Carbon Dioxide BUN Creatinine Glucose POC Glucose 159 H Calcium Phosphorus Magnesium Iron TIBC Ferritin Alkaline Phosphatase NT-Pro-B Natriuret Pep Total Protein Albumin Lipase Free T4 0.49 L 10/31/18 11/01/18 11/01/18 17:00 00:44 05:27 WBC RBC Hgb Hct MCV MCH MCHC RDW Plt Count Lymph % (Auto) [place] % (Auto) Lymph # [place] # Seg Neutrophils % Seg Neuts % (Manual) Lymphocytes % (Manual) Seg Neutrophils # Seg Neutrophils # Man Lymphocytes # (Manual) POC ABG pH 7.248 L POC ABG pCO2 34.8 L POC ABG pO2 135 H Sodium Potassium Chloride Carbon Dioxide BUN Creatinine Glucose POC Glucose 127 H 118 H Calcium Phosphorus Magnesium Iron TIBC Ferritin Alkaline Phosphatase NT-Pro-B Natriuret Pep Total Protein Albumin Lipase Free T4 11/01/18 11/01/18 11/01/18 06:40 06:40 06:53 WBC 18.9 H RBC 3.63 L Hgb Hct MCV MCH MCHC RDW Plt Count 64 L Lymph % (Auto) [place] % (Auto) Lymph # [place] # Seg Neutrophils % Seg Neuts % (Manual) 98.0 H Lymphocytes % (Manual) 1.0 L Seg Neutrophils # Seg Neutrophils # Man 18.5 H Lymphocytes # (Manual) 0.2 L POC ABG pH POC ABG pCO2 POC ABG pO2 Sodium Potassium 3.5 L Chloride 114.2 H Carbon Dioxide 17 L BUN 49 H Creatinine Glucose 107 H POC Glucose 127 H Calcium 7.3 L Phosphorus Magnesium 1.60 L Iron TIBC Ferritin Alkaline Phosphatase NT-Pro-B Natriuret Pep Total Protein Albumin Lipase Free T4 11/01/18 11/01/18 11/01/18 11:49 13:13 17:24 WBC RBC Hgb Hct MCV MCH MCHC RDW Plt Count Lymph % (Auto) [place] % (Auto) Lymph # [place] # Seg Neutrophils % Seg Neuts % (Manual) Lymphocytes % (Manual) Seg Neutrophils # Seg Neutrophils # Man Lymphocytes # (Manual) POC ABG pH POC ABG pCO2 POC ABG pO2 182 H Sodium Potassium Chloride Carbon Dioxide BUN Creatinine Glucose POC Glucose 134 H 111 H Calcium Phosphorus Magnesium Iron TIBC Ferritin Alkaline Phosphatase NT-Pro-B Natriuret Pep Total Protein Albumin Lipase Free T4 11/01/18 11/02/18 11/02/18 23:07 04:32 05:00 WBC RBC Hgb Hct MCV MCH MCHC RDW Plt Count Lymph % (Auto) [place] % (Auto) Lymph # [place] # Seg Neutrophils % Seg Neuts % (Manual) Lymphocytes % (Manual) Seg Neutrophils # Seg Neutrophils # Man Lymphocytes # (Manual) POC ABG pH 7.244 L POC ABG pCO2 33.2 L POC ABG pO2 123 H Sodium Potassium 3.0 L Chloride 114.1 H Carbon Dioxide 15 L BUN 47 H Creatinine Glucose 127 H POC Glucose 123 H Calcium 7.7 L Phosphorus Magnesium Iron TIBC Ferritin Alkaline Phosphatase NT-Pro-B Natriuret Pep Total Protein Albumin Lipase Free T4 11/02/18 11/02/18 11/02/18 05:00 05:29 11:27 WBC RBC Hgb Hct MCV MCH MCHC RDW Plt Count Lymph % (Auto) [place] % (Auto) Lymph # [place] # Seg Neutrophils % Seg Neuts % (Manual) Lymphocytes % (Manual) Seg Neutrophils # Seg Neutrophils # Man Lymphocytes # (Manual) POC ABG pH POC ABG pCO2 POC ABG pO2 Sodium Potassium Chloride Carbon Dioxide BUN Creatinine Glucose POC Glucose 118 H 137 H Calcium Phosphorus Magnesium 1.60 L Iron TIBC Ferritin Alkaline Phosphatase NT-Pro-B Natriuret Pep Total Protein Albumin Lipase Free T4 11/02/18 11/02/18 11/03/18 12:53 23:35 04:14 WBC RBC Hgb Hct MCV MCH MCHC RDW Plt Count Lymph % (Auto) [place] % (Auto) Lymph # [place] # Seg Neutrophils % Seg Neuts % (Manual) Lymphocytes % (Manual) Seg Neutrophils # Seg Neutrophils # Man Lymphocytes # (Manual) POC ABG pH POC ABG pCO2 30.3 L POC ABG pO2 134 H 129 H Sodium Potassium Chloride Carbon Dioxide BUN Creatinine Glucose POC Glucose 115 H Calcium Phosphorus Magnesium Iron TIBC Ferritin Alkaline Phosphatase NT-Pro-B Natriuret Pep Total Protein Albumin Lipase Free T4 11/03/18 11/03/18 11/03/18 05:34 11:30 11:30 WBC 16.4 H RBC 3.50 L Hgb Hct MCV MCH MCHC RDW Plt Count 136 L D Lymph % (Auto) [place] % (Auto) Lymph # [place] # Seg Neutrophils % Seg Neuts % (Manual) 97.0 H Lymphocytes % (Manual) 2.0 L Seg Neutrophils # Seg Neutrophils # Man 15.9 H Lymphocytes # (Manual) 0.3 L POC ABG pH POC ABG pCO2 POC ABG pO2 Sodium Potassium 3.1 L Chloride 110.4 H Carbon Dioxide 17 L BUN 41 H Creatinine Glucose 129 H POC Glucose 116 H Calcium 7.7 L Phosphorus Magnesium 1.60 L Iron TIBC Ferritin Alkaline Phosphatase NT-Pro-B Natriuret Pep Total Protein 4.2 L Albumin 1.2 L Lipase Free T4 11/03/18 11/03/18 11/03/18 12:01 17:35 21:37 WBC RBC Hgb Hct MCV MCH MCHC RDW Plt Count Lymph % (Auto) [place] % (Auto) Lymph # [place] # Seg Neutrophils % Seg Neuts % (Manual) Lymphocytes % (Manual) Seg Neutrophils # Seg Neutrophils # Man Lymphocytes # (Manual) POC ABG pH POC ABG pCO2 POC ABG pO2 Sodium Potassium Chloride Carbon Dioxide BUN Creatinine Glucose POC Glucose 132 H 132 H 126 H Calcium Phosphorus Magnesium Iron TIBC Ferritin Alkaline Phosphatase NT-Pro-B Natriuret Pep Total Protein Albumin Lipase Free T4 11/03/18 11/04/18 11/04/18 23:30 05:14 05:15 WBC RBC Hgb Hct MCV MCH MCHC RDW Plt Count Lymph % (Auto) [place] % (Auto) Lymph # [place] # Seg Neutrophils % Seg Neuts % (Manual) Lymphocytes % (Manual) Seg Neutrophils # Seg Neutrophils # Man Lymphocytes # (Manual) POC ABG pH POC ABG pCO2 30.9 L POC ABG pO2 192 H Sodium Potassium Chloride Carbon Dioxide BUN Creatinine Glucose POC Glucose 115 H 123 H Calcium Phosphorus Magnesium Iron TIBC Ferritin Alkaline Phosphatase NT-Pro-B Natriuret Pep Total Protein Albumin Lipase Free T4 11/04/18 11/04/18 11/04/18 09:39 09:39 11:43 WBC 15.2 H RBC 3.18 L Hgb Hct 29.9 L MCV MCH MCHC RDW Plt Count Lymph % (Auto) [place] % (Auto) Lymph # [place] # Seg Neutrophils % Seg Neuts % (Manual) 98.0 H Lymphocytes % (Manual) 1.0 L Seg Neutrophils # Seg Neutrophils # Man 14.9 H Lymphocytes # (Manual) 0.2 L POC ABG pH POC ABG pCO2 POC ABG pO2 Sodium 135 L D Potassium Chloride 109.5 H Carbon Dioxide 16 L BUN 46 H Creatinine Glucose 136 H POC Glucose 138 H Calcium 8.0 L Phosphorus Magnesium Iron TIBC Ferritin Alkaline Phosphatase NT-Pro-B Natriuret Pep Total Protein Albumin Lipase Free T4 11/04/18 11/04/18 11/05/18 17:31 23:42 05:23 WBC RBC Hgb Hct MCV MCH MCHC RDW Plt Count Lymph % (Auto) [place] % (Auto) Lymph # [place] # Seg Neutrophils % Seg Neuts % (Manual) Lymphocytes % (Manual) Seg Neutrophils # Seg Neutrophils # Man Lymphocytes # (Manual) POC ABG pH POC ABG pCO2 POC ABG pO2 Sodium Potassium Chloride Carbon Dioxide BUN Creatinine Glucose POC Glucose 139 H 138 H 148 H Calcium Phosphorus Magnesium Iron TIBC Ferritin Alkaline Phosphatase NT-Pro-B Natriuret Pep Total Protein Albumin Lipase Free T4 11/05/18 11/05/18 11/05/18 05:30 05:30 11:46 WBC 14.2 H RBC 3.12 L Hgb 10.0 L Hct 29.1 L MCV MCH MCHC RDW Plt Count Lymph % (Auto) [place] % (Auto) Lymph # [place] # Seg Neutrophils % Seg Neuts % (Manual) Lymphocytes % (Manual) Seg Neutrophils # Seg Neutrophils # Man Lymphocytes # (Manual) POC ABG pH POC ABG pCO2 POC ABG pO2 Sodium Potassium Chloride Carbon Dioxide 21 L BUN 42 H Creatinine Glucose 125 H POC Glucose 157 H Calcium 7.9 L Phosphorus Magnesium Iron TIBC Ferritin Alkaline Phosphatase NT-Pro-B Natriuret Pep Total Protein Albumin Lipase Free T4 11/05/18 11/05/18 11/05/18 17:09 20:03 23:43 WBC RBC Hgb Hct MCV MCH MCHC RDW Plt Count Lymph % (Auto) [place] % (Auto) Lymph # [place] # Seg Neutrophils % Seg Neuts % (Manual) Lymphocytes % (Manual) Seg Neutrophils # Seg Neutrophils # Man Lymphocytes # (Manual) POC ABG pH POC ABG pCO2 POC ABG pO2 76 L Sodium Potassium Chloride Carbon Dioxide BUN Creatinine Glucose POC Glucose 142 H 204 H Calcium Phosphorus Magnesium Iron TIBC Ferritin Alkaline Phosphatase NT-Pro-B Natriuret Pep Total Protein Albumin Lipase Free T4 11/06/18 11/06/18 11/06/18 04:21 12:14 17:17 WBC RBC Hgb Hct MCV MCH MCHC RDW Plt Count Lymph % (Auto) [place] % (Auto) Lymph # [place] # Seg Neutrophils % Seg Neuts % (Manual) Lymphocytes % (Manual) Seg Neutrophils # Seg Neutrophils # Man Lymphocytes # (Manual) POC ABG pH POC ABG pCO2 POC ABG pO2 Sodium 133 L Potassium Chloride Carbon Dioxide 18 L BUN 47 H Creatinine Glucose 187 H POC Glucose 232 H 199 H Calcium 7.8 L Phosphorus 5.30 H D Magnesium 2.50 H Iron TIBC Ferritin Alkaline Phosphatase NT-Pro-B Natriuret Pep Total Protein Albumin Lipase Free T4 11/06/18 11/06/18 11/07/18 19:46 23:30 00:00 WBC RBC Hgb Hct MCV MCH MCHC RDW Plt Count Lymph % (Auto) [place] % (Auto) Lymph # [place] # Seg Neutrophils % Seg Neuts % (Manual) Lymphocytes % (Manual) Seg Neutrophils # Seg Neutrophils # Man Lymphocytes # (Manual) POC ABG pH 7.317 L POC ABG pCO2 50.3 H POC ABG pO2 58 L 57 L Sodium Potassium Chloride Carbon Dioxide BUN Creatinine Glucose POC Glucose 224 H Calcium Phosphorus Magnesium Iron TIBC Ferritin Alkaline Phosphatase NT-Pro-B Natriuret Pep Total Protein Albumin Lipase Free T4 11/07/18 11/07/18 11/07/18 04:55 04:55 04:55 WBC 25.2 H RBC 3.64 L Hgb Hct MCV MCH MCHC RDW Plt Count Lymph % (Auto) [place] % (Auto) Lymph # [place] # Seg Neutrophils % Seg Neuts % (Manual) Lymphocytes % (Manual) Seg Neutrophils # Seg Neutrophils # Man Lymphocytes # (Manual) POC ABG pH POC ABG pCO2 POC ABG pO2 Sodium Potassium Chloride Carbon Dioxide BUN 54 H Creatinine Glucose 270 H POC Glucose Calcium 7.9 L Phosphorus 5.00 H Magnesium Iron TIBC Ferritin Alkaline Phosphatase NT-Pro-B Natriuret Pep 4507 H Total Protein Albumin Lipase Free T4 11/07/18 11/07/18 11/07/18 05:46 08:08 11:52 WBC RBC Hgb Hct MCV MCH MCHC RDW Plt Count Lymph % (Auto) [place] % (Auto) Lymph # [place] # Seg Neutrophils % Seg Neuts % (Manual) Lymphocytes % (Manual) Seg Neutrophils # Seg Neutrophils # Man Lymphocytes # (Manual) POC ABG pH POC ABG pCO2 47.6 H POC ABG pO2 106 H Sodium Potassium Chloride Carbon Dioxide BUN Creatinine Glucose POC Glucose 266 H 323 H Calcium Phosphorus Magnesium Iron TIBC Ferritin Alkaline Phosphatase NT-Pro-B Natriuret Pep Total Protein Albumin Lipase Free T4 11/07/18 11/07/18 11/07/18 12:29 17:57 23:48 WBC RBC Hgb Hct MCV MCH MCHC RDW Plt Count Lymph % (Auto) [place] % (Auto) Lymph # [place] # Seg Neutrophils % Seg Neuts % (Manual) Lymphocytes % (Manual) Seg Neutrophils # Seg Neutrophils # Man Lymphocytes # (Manual) POC ABG pH POC ABG pCO2 POC ABG pO2 Sodium Potassium Chloride Carbon Dioxide BUN Creatinine Glucose POC Glucose 325 H 286 H 231 H Calcium Phosphorus Magnesium Iron TIBC Ferritin Alkaline Phosphatase NT-Pro-B Natriuret Pep Total Protein Albumin Lipase Free T4 11/08/18 11/08/18 11/08/18 03:58 05:05 05:05 WBC 18.4 H RBC 3.20 L Hgb 10.0 L Hct 29.7 L MCV MCH MCHC RDW Plt Count Lymph % (Auto) [place] % (Auto) Lymph # [place] # Seg Neutrophils % Seg Neuts % (Manual) Lymphocytes % (Manual) Seg Neutrophils # Seg Neutrophils # Man Lymphocytes # (Manual) POC ABG pH 7.524 H POC ABG pCO2 34.3 L POC ABG pO2 Sodium Potassium Chloride Carbon Dioxide BUN 61 H Creatinine Glucose 253 H POC Glucose Calcium 7.6 L Phosphorus Magnesium Iron TIBC Ferritin Alkaline Phosphatase NT-Pro-B Natriuret Pep Total Protein Albumin Lipase Free T4 11/08/18 11/08/18 11/08/18 05:28 11:28 18:21 WBC RBC Hgb Hct MCV MCH MCHC RDW Plt Count Lymph % (Auto) [place] % (Auto) Lymph # [place] # Seg Neutrophils % Seg Neuts % (Manual) Lymphocytes % (Manual) Seg Neutrophils # Seg Neutrophils # Man Lymphocytes # (Manual) POC ABG pH POC ABG pCO2 POC ABG pO2 Sodium Potassium Chloride Carbon Dioxide BUN Creatinine Glucose POC Glucose 295 H 253 H 225 H Calcium Phosphorus Magnesium Iron TIBC Ferritin Alkaline Phosphatase NT-Pro-B Natriuret Pep Total Protein Albumin Lipase Free T4 11/09/18 11/09/18 11/09/18 00:57 04:06 06:06 WBC RBC Hgb Hct MCV MCH MCHC RDW Plt Count Lymph % (Auto) [place] % (Auto) Lymph # [place] # Seg Neutrophils % Seg Neuts % (Manual) Lymphocytes % (Manual) Seg Neutrophils # Seg Neutrophils # Man Lymphocytes # (Manual) POC ABG pH 7.509 H POC ABG pCO2 POC ABG pO2 Sodium Potassium Chloride Carbon Dioxide BUN Creatinine Glucose POC Glucose 218 H 199 H Calcium Phosphorus Magnesium Iron TIBC Ferritin Alkaline Phosphatase NT-Pro-B Natriuret Pep Total Protein Albumin Lipase Free T4 11/09/18 11/09/18 11/09/18 06:51 06:51 12:07 WBC 13.5 H RBC 2.97 L Hgb 9.3 L Hct 27.6 L MCV MCH MCHC RDW Plt Count Lymph % (Auto) [place] % (Auto) Lymph # [place] # Seg Neutrophils % Seg Neuts % (Manual) Lymphocytes % (Manual) Seg Neutrophils # Seg Neutrophils # Man Lymphocytes # (Manual) POC ABG pH POC ABG pCO2 POC ABG pO2 Sodium Potassium Chloride 96.5 L Carbon Dioxide 32 H BUN 58 H Creatinine Glucose 191 H POC Glucose 212 H Calcium 7.5 L Phosphorus Magnesium Iron TIBC Ferritin Alkaline Phosphatase NT-Pro-B Natriuret Pep Total Protein Albumin Lipase Free T4 11/09/18 11/10/18 11/10/18 18:29 00:09 04:21 WBC RBC Hgb Hct MCV MCH MCHC RDW Plt Count Lymph % (Auto) [place] % (Auto) Lymph # [place] # Seg Neutrophils % Seg Neuts % (Manual) Lymphocytes % (Manual) Seg Neutrophils # Seg Neutrophils # Man Lymphocytes # (Manual) POC ABG pH 7.467 H POC ABG pCO2 49.9 H POC ABG pO2 76 L Sodium Potassium Chloride Carbon Dioxide BUN Creatinine Glucose POC Glucose 192 H 214 H Calcium Phosphorus Magnesium Iron TIBC Ferritin Alkaline Phosphatase NT-Pro-B Natriuret Pep Total Protein Albumin Lipase Free T4 11/10/18 11/10/18 11/10/18 04:39 04:39 06:05 WBC 14.3 H RBC 3.09 L Hgb 9.7 L Hct 28.9 L MCV MCH MCHC RDW Plt Count Lymph % (Auto) [place] % (Auto) Lymph # [place] # Seg Neutrophils % Seg Neuts % (Manual) Lymphocytes % (Manual) Seg Neutrophils # Seg Neutrophils # Man Lymphocytes # (Manual) POC ABG pH POC ABG pCO2 POC ABG pO2 Sodium Potassium Chloride 97.5 L Carbon Dioxide 31 H BUN 53 H Creatinine Glucose 196 H POC Glucose 202 H Calcium 7.7 L Phosphorus Magnesium Iron TIBC Ferritin Alkaline Phosphatase NT-Pro-B Natriuret Pep Total Protein Albumin Lipase Free T4 11/10/18 11/10/18 11/11/18 12:32 17:16 00:06 WBC RBC Hgb Hct MCV MCH MCHC RDW Plt Count Lymph % (Auto) [place] % (Auto) Lymph # [place] # Seg Neutrophils % Seg Neuts % (Manual) Lymphocytes % (Manual) Seg Neutrophils # Seg Neutrophils # Man Lymphocytes # (Manual) POC ABG pH POC ABG pCO2 POC ABG pO2 Sodium Potassium Chloride Carbon Dioxide BUN Creatinine Glucose POC Glucose 197 H 200 H 177 H Calcium Phosphorus Magnesium Iron TIBC Ferritin Alkaline Phosphatase NT-Pro-B Natriuret Pep Total Protein Albumin Lipase Free T4 11/11/18 11/11/18 11/11/18 04:43 05:24 05:50 WBC 14.1 H RBC 2.92 L Hgb 9.1 L Hct 27.0 L MCV MCH MCHC RDW Plt Count Lymph % (Auto) [place] % (Auto) Lymph # [place] # Seg Neutrophils % Seg Neuts % (Manual) Lymphocytes % (Manual) Seg Neutrophils # Seg Neutrophils # Man Lymphocytes # (Manual) POC ABG pH POC ABG pCO2 50.1 H POC ABG pO2 Sodium Potassium Chloride Carbon Dioxide BUN Creatinine Glucose POC Glucose 199 H Calcium Phosphorus Magnesium Iron TIBC Ferritin Alkaline Phosphatase NT-Pro-B Natriuret Pep Total Protein Albumin Lipase Free T4 11/11/18 11/11/18 11/11/18 05:50 12:00 17:57 WBC RBC Hgb Hct MCV MCH MCHC RDW Plt Count Lymph % (Auto) [place] % (Auto) Lymph # [place] # Seg Neutrophils % Seg Neuts % (Manual) Lymphocytes % (Manual) Seg Neutrophils # Seg Neutrophils # Man Lymphocytes # (Manual) POC ABG pH POC ABG pCO2 POC ABG pO2 Sodium Potassium 3.5 L Chloride Carbon Dioxide 34 H BUN 47 H Creatinine 0.5 L Glucose 169 H POC Glucose 168 H 194 H Calcium 8.2 L Phosphorus Magnesium Iron TIBC Ferritin Alkaline Phosphatase 142 H NT-Pro-B Natriuret Pep Total Protein 4.4 L Albumin 2.1 L Lipase Free T4 11/11/18 11/12/18 11/12/18 23:26 05:32 09:26 WBC RBC Hgb Hct MCV MCH MCHC RDW Plt Count Lymph % (Auto) [place] % (Auto) Lymph # [place] # Seg Neutrophils % Seg Neuts % (Manual) Lymphocytes % (Manual) Seg Neutrophils # Seg Neutrophils # Man Lymphocytes # (Manual) POC ABG pH POC ABG pCO2 POC ABG pO2 Sodium Potassium Chloride Carbon Dioxide BUN Creatinine Glucose POC Glucose 181 H 186 H 158 H Calcium Phosphorus Magnesium Iron TIBC Ferritin Alkaline Phosphatase NT-Pro-B Natriuret Pep Total Protein Albumin Lipase Free T4 11/12/18 11/12/18 11/12/18 11:42 17:39 23:25 WBC RBC Hgb Hct MCV MCH MCHC RDW Plt Count Lymph % (Auto) [place] % (Auto) Lymph # [place] # Seg Neutrophils % Seg Neuts % (Manual) Lymphocytes % (Manual) Seg Neutrophils # Seg Neutrophils # Man Lymphocytes # (Manual) POC ABG pH POC ABG pCO2 POC ABG pO2 Sodium Potassium Chloride Carbon Dioxide BUN Creatinine Glucose POC Glucose 141 H 183 H 147 H Calcium Phosphorus Magnesium Iron TIBC Ferritin Alkaline Phosphatase NT-Pro-B Natriuret Pep Total Protein Albumin Lipase Free T4 11/13/18 11/13/18 11/13/18 12:16 18:10 21:21 WBC RBC Hgb Hct MCV MCH MCHC RDW Plt Count Lymph % (Auto) [place] % (Auto) Lymph # [place] # Seg Neutrophils % Seg Neuts % (Manual) Lymphocytes % (Manual) Seg Neutrophils # Seg Neutrophils # Man Lymphocytes # (Manual) POC ABG pH POC ABG pCO2 POC ABG pO2 Sodium Potassium Chloride Carbon Dioxide BUN Creatinine Glucose POC Glucose 114 H 127 H 185 H Calcium Phosphorus Magnesium Iron TIBC Ferritin Alkaline Phosphatase NT-Pro-B Natriuret Pep Total Protein Albumin Lipase Free T4 11/13/18 11/14/18 11/14/18 23:11 03:28 03:28 WBC RBC Hgb Hct MCV MCH MCHC RDW Plt Count Lymph % (Auto) [place] % (Auto) Lymph # [place] # Seg Neutrophils % Seg Neuts % (Manual) Lymphocytes % (Manual) Seg Neutrophils # Seg Neutrophils # Man Lymphocytes # (Manual) POC ABG pH POC ABG pCO2 POC ABG pO2 Sodium Potassium Chloride Carbon Dioxide BUN Creatinine Glucose POC Glucose 184 H Calcium Phosphorus Magnesium Iron 31 L TIBC 173 L Ferritin 510.3 H Alkaline Phosphatase NT-Pro-B Natriuret Pep Total Protein Albumin Lipase Free T4 11/14/18 11/14/18 11/14/18 05:12 07:59 10:05 WBC 19.8 H RBC 2.67 L Hgb 8.4 L Hct 25.2 L MCV MCH MCHC RDW Plt Count Lymph % (Auto) [place] % (Auto) Lymph # [place] # Seg Neutrophils % Seg Neuts % (Manual) 96.0 H Lymphocytes % (Manual) 0 L Seg Neutrophils # Seg Neutrophils # Man 19.0 H Lymphocytes # (Manual) 0.0 L POC ABG pH 7.470 H POC ABG pCO2 POC ABG pO2 Sodium Potassium Chloride Carbon Dioxide BUN Creatinine Glucose POC Glucose 178 H Calcium Phosphorus Magnesium Iron TIBC Ferritin Alkaline Phosphatase NT-Pro-B Natriuret Pep Total Protein Albumin Lipase Free T4 11/14/18 11/14/18 11/14/18 11:40 18:03 23:15 WBC RBC Hgb Hct MCV MCH MCHC RDW Plt Count Lymph % (Auto) [place] % (Auto) Lymph # [place] # Seg Neutrophils % Seg Neuts % (Manual) Lymphocytes % (Manual) Seg Neutrophils # Seg Neutrophils # Man Lymphocytes # (Manual) POC ABG pH POC ABG pCO2 POC ABG pO2 Sodium Potassium Chloride Carbon Dioxide BUN Creatinine Glucose POC Glucose 168 H 221 H 223 H Calcium Phosphorus Magnesium Iron TIBC Ferritin Alkaline Phosphatase NT-Pro-B Natriuret Pep Total Protein Albumin Lipase Free T4 11/15/18 11/15/18 11/15/18 05:29 11:33 12:13 WBC RBC Hgb Hct MCV MCH MCHC RDW Plt Count Lymph % (Auto) [place] % (Auto) Lymph # [place] # Seg Neutrophils % Seg Neuts % (Manual) Lymphocytes % (Manual) Seg Neutrophils # Seg Neutrophils # Man Lymphocytes # (Manual) POC ABG pH POC ABG pCO2 46.1 H POC ABG pO2 107 H Sodium Potassium Chloride Carbon Dioxide BUN Creatinine Glucose POC Glucose 210 H 199 H Calcium Phosphorus Magnesium Iron TIBC Ferritin Alkaline Phosphatase NT-Pro-B Natriuret Pep Total Protein Albumin Lipase Free T4 11/15/18 11/15/18 11/15/18 14:32 17:45 23:29 WBC RBC Hgb Hct MCV MCH MCHC RDW Plt Count Lymph % (Auto) [place] % (Auto) Lymph # [place] # Seg Neutrophils % Seg Neuts % (Manual) Lymphocytes % (Manual) Seg Neutrophils # Seg Neutrophils # Man Lymphocytes # (Manual) POC ABG pH POC ABG pCO2 POC ABG pO2 Sodium 149 H Potassium 3.1 L Chloride 109.2 H Carbon Dioxide BUN 36 H Creatinine 0.5 L Glucose 164 H POC Glucose 154 H 163 H Calcium 7.5 L Phosphorus Magnesium Iron TIBC Ferritin Alkaline Phosphatase NT-Pro-B Natriuret Pep Total Protein Albumin Lipase Free T4 11/16/18 11/16/18 11/16/18 05:54 12:05 12:57 WBC RBC Hgb Hct MCV MCH MCHC RDW Plt Count Lymph % (Auto) [place] % (Auto) Lymph # [place] # Seg Neutrophils % Seg Neuts % (Manual) Lymphocytes % (Manual) Seg Neutrophils # Seg Neutrophils # Man Lymphocytes # (Manual) POC ABG pH POC ABG pCO2 POC ABG pO2 Sodium 150 H Potassium 3.0 L Chloride 109.0 H Carbon Dioxide BUN 41 H Creatinine 0.5 L Glucose 158 H POC Glucose 168 H 176 H Calcium 7.6 L Phosphorus Magnesium Iron TIBC Ferritin Alkaline Phosphatase NT-Pro-B Natriuret Pep Total Protein Albumin Lipase Free T4 11/16/18 11/16/18 11/17/18 16:49 23:22 04:25 WBC 16.2 H RBC 2.72 L Hgb 8.7 L Hct 25.9 L MCV MCH MCHC RDW 15.6 H Plt Count Lymph % (Auto) [place] % (Auto) Lymph # [place] # Seg Neutrophils % Seg Neuts % (Manual) 97.0 H Lymphocytes % (Manual) 1.0 L Seg Neutrophils # Seg Neutrophils # Man 15.7 H Lymphocytes # (Manual) 0.2 L POC ABG pH POC ABG pCO2 POC ABG pO2 Sodium Potassium Chloride Carbon Dioxide BUN Creatinine Glucose POC Glucose 163 H 230 H Calcium Phosphorus Magnesium Iron TIBC Ferritin Alkaline Phosphatase NT-Pro-B Natriuret Pep Total Protein Albumin Lipase Free T4 11/17/18 11/17/18 11/17/18 04:25 05:56 12:39 WBC RBC Hgb Hct MCV MCH MCHC RDW Plt Count Lymph % (Auto) [place] % (Auto) Lymph # [place] # Seg Neutrophils % Seg Neuts % (Manual) Lymphocytes % (Manual) Seg Neutrophils # Seg Neutrophils # Man Lymphocytes # (Manual) POC ABG pH POC ABG pCO2 POC ABG pO2 Sodium 152 H Potassium 3.4 L Chloride 109.9 H Carbon Dioxide 32 H BUN 40 H Creatinine 0.5 L Glucose 155 H POC Glucose 173 H 193 H Calcium 7.9 L Phosphorus Magnesium Iron TIBC Ferritin Alkaline Phosphatase NT-Pro-B Natriuret Pep Total Protein Albumin Lipase Free T4 11/17/18 11/17/18 11/18/18 17:08 23:06 04:26 WBC 18.3 H RBC 2.52 L Hgb 8.0 L Hct 24.5 L MCV MCH MCHC RDW 16.0 H Plt Count Lymph % (Auto) [place] % (Auto) Lymph # [place] # Seg Neutrophils % Seg Neuts % (Manual) 96.0 H Lymphocytes % (Manual) 0 L Seg Neutrophils # Seg Neutrophils # Man 17.6 H Lymphocytes # (Manual) 0.0 L POC ABG pH POC ABG pCO2 POC ABG pO2 Sodium Potassium Chloride Carbon Dioxide BUN Creatinine Glucose POC Glucose 203 H 167 H Calcium Phosphorus Magnesium Iron TIBC Ferritin Alkaline Phosphatase NT-Pro-B Natriuret Pep Total Protein Albumin Lipase Free T4 11/18/18 11/18/18 04:26 05:29 WBC RBC Hgb Hct MCV MCH MCHC RDW Plt Count Lymph % (Auto) [place] % (Auto) Lymph # [place] # Seg Neutrophils % Seg Neuts % (Manual) Lymphocytes % (Manual) Seg Neutrophils # Seg Neutrophils # Man Lymphocytes # (Manual) POC ABG pH POC ABG pCO2 POC ABG pO2 Sodium 149 H Potassium Chloride 110.5 H Carbon Dioxide BUN 41 H Creatinine 0.4 L Glucose 127 H POC Glucose 128 H Calcium 7.9 L Phosphorus Magnesium Iron TIBC Ferritin Alkaline Phosphatase NT-Pro-B Natriuret Pep Total Protein Albumin Lipase Free T4 Allied health notes reviewed: nursing
--- NOTE | 2018-11-18 11:13 | Progress Note ---
Assessment and Plan Cultures: Blood cultures 10/22/2018 no growth Tracheal asp cultures 10/28/2018: E.coli and Stenotrophomonas. 10/30/2018 blood culture: Ayla glabrata 11/03/2018 fungal blood culture: no growth thus far Assessment: 73 y/o female with history of COPD, hypertension, lupus, fibromyalgia, opioid dependence admitted on 10/22/2018 due to 3-day history of intractable nausea, vomiting, diarrhea: 1) SIRS v/s sepsis: fever resolved. Noted leukocytosis 19-->16 -->18K on iv steroids. ? pneumonia. Etiology initially most likely aspiration pneumonia +/- intra-abdominal source from contained gastric perforation, then with Candidemia. 2) Candidemia due to Ayla glabrata: in the setting of TPN and PICC line. PICC removed. Has temporary central line. TTE not optimal quality, but repeat fungal blood cultures are negative, so no need for LAUREN. S/p micafungin/fluconazole 14 days course. 3) Acute respiratory failure: pneumonia and fluid overload. Extubated 11/05/2018 and now reintubated 11/07/2018. Planned for trach. 4) Presumed aspiration pneumonia v/s HAP: Tracheal asp cultures 10/28/2018 with E.coli and Stenotrophomonas. Stenotrophomonas is a known colonizer in patients with structural lung disease or tracheostomy tubes/ET tubes, not generally considered very virulent. Given her prolonged and complicated hospital stay, completed a 10 day course of abx. 5) Contained gastric perforation: Gen Surgery following. Planned for conservative management. Follow up CT showed no contrast leak. Now on tube feeds. 6) ADWOA: improved. 7) Diarrhea: ? tfeeds not better Recommendations: - send sputum culture - repeat CXR with increasing wbc and lung secretion - if pneumonia please start cefepime and vancomycin - change T-feeds, monitor diarrhea will follow Ame Garcia MD Infectious Diseases [employer] Director [facility] M [phone] O [phone] Subjective Date of service: 11/18/18 Principal diagnosis: anemia Interval history: Remains on vent via trach, alert, follows commands, crying, agitated, no fever. +diarrhea +tachycardic on monitor ROS unable to obtain Objective - Exam Narrative Exam: General appearance: alert follows commands crying, upset Eyes: anicteric sclerae, moist conjunctivae; no lid-lag; PERRLA HENT: Atraumatic; oropharynx limited Neck: Trach no secretion Lungs: distant BS CV: tachycardic Abdomen: Soft, non-tender Extremities: no edema, cyanosis Skin: Normal temperature, turgor and texture; no rash, ulcers or subcutaneous nodules Psych: no agitated Neuro:alert Rectal tube w diarrhea - Constitutional Vitals: Vital Signs Temp Pulse Resp BP Pulse Ox 98.6 F 107 H 19 106/45 99 11/18/18 08:00 11/18/18 10:45 11/18/18 11:00 11/18/18 10:45 11/18/18 10:45 Temperature -Last 24 Hours Temperature 98.6 F Temperature 98.8 F Temperature 99.4 F Temperature 99.6 F Temperature 97.8 F Temperature 98.2 F - Labs CBC & Chem 7: 11/18/18 04:26 11/18/18 04:26 Labs: Abnormal lab results 11/17/18 11/17/18 11/17/18 Range/Units 12:39 17:08 23:06 WBC (4.5-11.0) K/mm3 RBC (3.65-5.03) M/mm3 Hgb (10.1-14.3) gm/dl Hct (30.3-42.9) % RDW (13.2-15.2) % Seg Neuts % (Manual) (40.0-70.0) % Lymphocytes % (Manual) (13.4-35.0) % Seg Neutrophils # Man (1.8-7.7) K/mm3 Lymphocytes # (Manual) (1.2-5.4) K/mm3 Sodium (137-145) mmol/L Chloride (98-107) mmol/L BUN (7-17) mg/dL Creatinine (0.7-1.2) mg/dL Glucose (65-100) mg/dL POC Glucose 193 H 203 H 167 H (70-105) Calcium (8.4-10.2) mg/dL 11/18/18 11/18/18 11/18/18 Range/Units 04:26 04:26 05:29 WBC 18.3 H (4.5-11.0) K/mm3 RBC 2.52 L (3.65-5.03) M/mm3 Hgb 8.0 L (10.1-14.3) gm/dl Hct 24.5 L (30.3-42.9) % RDW 16.0 H (13.2-15.2) % Seg Neuts % (Manual) 96.0 H (40.0-70.0) % Lymphocytes % (Manual) 0 L (13.4-35.0) % Seg Neutrophils # Man 17.6 H (1.8-7.7) K/mm3 Lymphocytes # (Manual) 0.0 L (1.2-5.4) K/mm3 Sodium 149 H (137-145) mmol/L Chloride 110.5 H (98-107) mmol/L BUN 41 H (7-17) mg/dL Creatinine 0.4 L (0.7-1.2) mg/dL Glucose 127 H (65-100) mg/dL POC Glucose 128 H (70-105) Calcium 7.9 L (8.4-10.2) mg/dL
--- NOTE | 2018-11-18 11:14 | Progress Note ---
Assessment and Plan Currently stable cardiac status. Cont present cardiac management. The patient has been seen in conjunction with Dr. Roly Pablo who agrees with the assessment and plan of care. - Patient Problems (1) Atrial tachycardia, paroxysmal Current Visit: Yes Status: Acute (2) Acute heart failure with preserved ejection fraction Current Visit: Yes Status: Acute (3) Acute on chronic respiratory failure Current Visit: Yes Status: Acute (4) Perforated gastric ulcer Current Visit: Yes Status: Acute (5) Intractable nausea and vomiting Current Visit: Yes Status: Acute (6) Partial small bowel obstruction Current Visit: Yes Status: Acute (7) COPD (chronic obstructive pulmonary disease) Current Visit: Yes Status: Chronic (8) History of hypertension Current Visit: Yes Status: Chronic (9) ADWOA (acute kidney injury) Current Visit: Yes Status: Acute (10) Hypokalemia Current Visit: Yes Status: Acute Subjective Date of service: 11/18/18 Principal diagnosis: anemia Interval history: pt trached, alert, in ST HR 100s - 120s on tele. at bedside. Objective Last Vital Signs Temp 98.6 F 11/18/18 08:00 Pulse 107 H 11/18/18 10:45 Resp 19 11/18/18 11:00 BP 106/45 11/18/18 10:45 Pulse Ox 99 11/18/18 10:45 - Physical Examination General: Other (trached) HEENT: Positive: EOMI, Normocephaly, Mucus Membranes Moist Neck: Positive: neck supple, trachea midline Cardiac: Positive: Regular Rhythm, S1/S2 Lungs: Positive: Decreased Breath Sounds Neuro: Positive: Other (trached) Abdomen: Positive: Soft. Negative: Tender Skin: Positive: Clear. Negative: Rash Musculoskeletal: Decreased Range of Motion, Normal Range of Motion Extremities: Present: normal. Absent: edema - Labs and Meds CBC 11/18/18 Range/Units 04:26 WBC 18.3 H (4.5-11.0) K/mm3 RBC 2.52 L (3.65-5.03) M/mm3 Hgb 8.0 L (10.1-14.3) gm/dl Hct 24.5 L (30.3-42.9) % Plt Count 373 (140-440) K/mm3 Comprehensive Metabolic Panel 11/18/18 Range/Units 04:26 Sodium 149 H (137-145) mmol/L Potassium 4.0 (3.6-5.0) mmol/L Chloride 110.5 H (98-107) mmol/L Carbon Dioxide 30 (22-30) mmol/L BUN 41 H (7-17) mg/dL Creatinine 0.4 L (0.7-1.2) mg/dL Glucose 127 H (65-100) mg/dL Calcium 7.9 L (8.4-10.2) mg/dL - Imaging and Cardiology EKG: image reviewed Echo: report reviewed (EF 50%, trace TR, minimal pericardial effusion. ) - EKG Sinus rhythms and dysrhythmias: sinus rhythm - Allied health notes Allied health notes reviewed: nursing
--- NOTE | 2018-11-18 12:21 | XRay Report ---
AP CHEST: HISTORY: Suspect pneumonia Small right pleural effusion or basilar atelectasis has resolved since 11/14/18. A small left pleural effusion has decreased by 50%. No obvious infiltrate. No pneumothorax. Heart size is within normal limits. Tracheostomy and nasogastric tube remain in adequate position. IMPRESSION: Small left pleural effusion.
--- NOTE | 2018-11-18 12:56 | Hem/Onc Progress Note ---
Assessment and Plan 1. h/o Thrombocytopenia, likely medication, pts medical status related. better 2. History of colon surgery in the past, details not clear. 3. History of bowel issues. Seen by surgical team. - pSBO and contained gastric perforation 4. h/o TPN. 5. h/o Ayla, ID following. 6. Chronic obstructive pulmonary disease. 7. Hypertension. 8. History of lupus. 9. Aspiration pneumonia. 10. The patient was on ventilation. 11. Renal impairment. 11/18 pt on vent - trach - pulm following anemia - s/p iv iron h/o b12 inj at home - monthly - s/p same - Patient Problems (1) Thrombocytopenia Current Visit: Yes Status: Acute Subjective Date of service: 11/18/18 Principal diagnosis: anemia Interval history: trach + awake Objective - Constitutional Vitals: Last Vital Signs Temp 98.3 F 11/18/18 12:00 Pulse 94 H 11/18/18 12:52 Resp 15 11/18/18 11:30 BP 92/41 11/18/18 12:52 Pulse Ox 98 11/18/18 12:52 General appearance: no acute distress, other (trach) Performance status: 4-completely disabled - EENT Eyes: EOM intact ENT: hearing intact Lymph node exam: negative cervical - Neck Neck: normal ROM - Respiratory Respiratory effort: Positive: normal Respiratory: bilateral: CTA (anteriorly) - Cardiovascular Heart Sounds: Present: S1 & S2 Extremities: normal temperature - Gastrointestinal General gastrointestinal: Present: soft Rectal Exam: deferred - Genitourinary Female genitourinary: Present: deferred - Integumentary Integumentary: warm - Musculoskeletal Musculoskeletal: generalized weakness - Neurologic Neurologic: moves all extremities - Labs Lab Results: Laboratory Results - last 24 hr 11/17/18 11/17/18 11/18/18 17:08 23:06 04:26 WBC 18.3 H RBC 2.52 L Hgb 8.0 L Hct 24.5 L MCV 97 MCH 32 MCHC 33 RDW 16.0 H Plt Count 373 Add Manual Diff Complete Total Counted 100 Seg Neuts % (Manual) 96.0 H Band Neutrophils % 1.0 Lymphocytes % (Manual) 0 L Reactive Lymphs % (Man) 0 Monocytes % (Manual) 3.0 Eosinophils % (Manual) 0 Basophils % (Manual) 0 Metamyelocytes % 0 Myelocytes % 0 Promyelocytes % 0 Blast Cells % 0 Nucleated RBC % Not Reportable Seg Neutrophils # Man 17.6 H Band Neutrophils # 0.2 Lymphocytes # (Manual) 0.0 L Abs React Lymphs (Man) 0.0 Monocytes # (Manual) 0.5 Eosinophils # (Manual) 0.0 Basophils # (Manual) 0.0 Metamyelocytes # 0.0 Myelocytes # 0.0 Promyelocytes # 0.0 Blast Cells # 0.0 WBC Morphology Not Reportable Hypersegmented Neuts Not Reportable Hyposegmented Neuts Not Reportable Hypogranular Neuts Not Reportable Smudge Cells Not Reportable Toxic Granulation Not Reportable Toxic Vacuolation Not Reportable Dohle Bodies Not Reportable Pelger-Huet Anomaly Not Reportable Magda Rods Not Reportable Platelet Estimate Consistent w auto Clumped Platelets Not Reportable Plt Clumps, EDTA Not Reportable Large Platelets Not Reportable Giant Platelets Not Reportable Platelet Satelliting Not Reportable Plt Morphology Comment Not Reportable RBC Morphology Not Reportable Dimorphic RBCs Not Reportable Polychromasia Not Reportable Hypochromasia Not Reportable Poikilocytosis Not Reportable Anisocytosis Not Reportable Microcytosis Not Reportable Macrocytosis Not Reportable Spherocytes Not Reportable Pappenheimer Bodies Not Reportable Sickle Cells Not Reportable Target Cells Not Reportable Tear Drop Cells Not Reportable Ovalocytes Not Reportable Helmet Cells Not Reportable [place] Bodies Not Reportable [place] Rings Not Reportable Tanner Cells Not Reportable Bite Cells Not Reportable Crenated Cell Not Reportable Elliptocytes Not Reportable Acanthocytes (Spur) Not Reportable Rouleaux Not Reportable Hemoglobin C Crystals Not Reportable Schistocytes Not Reportable Malaria parasites Not Reportable Janes Bodies Not Reportable Hem Pathologist Commnt No Sodium Potassium Chloride Carbon Dioxide Anion Gap BUN Creatinine Estimated GFR BUN/Creatinine Ratio Glucose POC Glucose 203 H 167 H Calcium 11/18/18 11/18/18 11/18/18 04:26 04:26 05:29 WBC RBC Hgb Hct MCV MCH MCHC RDW Plt Count Add Manual Diff Total Counted Seg Neuts % (Manual) Band Neutrophils % Lymphocytes % (Manual) Reactive Lymphs % (Man) Monocytes % (Manual) Eosinophils % (Manual) Basophils % (Manual) Metamyelocytes % Myelocytes % Promyelocytes % Blast Cells % Nucleated RBC % Seg Neutrophils # Man Band Neutrophils # Lymphocytes # (Manual) Abs React Lymphs (Man) Monocytes # (Manual) Eosinophils # (Manual) Basophils # (Manual) Metamyelocytes # Myelocytes # Promyelocytes # Blast Cells # WBC Morphology TNR Hypersegmented Neuts Hyposegmented Neuts Hypogranular Neuts Smudge Cells Toxic Granulation Toxic Vacuolation Dohle Bodies Pelger-Huet Anomaly Magda Rods Platelet Estimate Clumped Platelets Plt Clumps, EDTA Large Platelets Giant Platelets Platelet Satelliting Plt Morphology Comment RBC Morphology Dimorphic RBCs Polychromasia Hypochromasia Poikilocytosis Anisocytosis Microcytosis Macrocytosis Spherocytes Pappenheimer Bodies Sickle Cells Target Cells Tear Drop Cells Ovalocytes Helmet Cells [place] Bodies [place] Rings Tanner Cells Bite Cells Crenated Cell Elliptocytes Acanthocytes (Spur) Rouleaux Hemoglobin C Crystals Schistocytes Malaria parasites Janes Bodies Hem Pathologist Commnt Sodium 149 H Potassium 4.0 Chloride 110.5 H Carbon Dioxide 30 Anion Gap 13 BUN 41 H Creatinine 0.4 L Estimated GFR > 60 BUN/Creatinine Ratio 103 Glucose 127 H POC Glucose 128 H Calcium 7.9 L Medications & Allergies - Medications Allergies/Adverse Reactions: Allergies Sulfa (Sulfonamide Antibiotics) Allergy (Intermediate, Verified 10/22/18 16:30) Rash metoclopramide HCl [From Reglan] Allergy (Verified 10/22/18 16:30) Dizziness prochlorperazine [From Compazine] Allergy (Verified 10/22/18 16:30) NECK STIFFNESS Home Medications: Home Medications Medication Instructions Recorded Confirmed Last Taken Type Ondansetron 4 mg PO Q6HR PRN 12/05/16 10/22/18 10/29/17 History Propranolol HCl [Propranolol HCl 60 mg PO DAILY 12/05/16 10/22/18 10/30/17 22:00 History ER] QUEtiapine [SEROquel] 300 mg PO DAILY 12/05/16 10/22/18 10/30/17 History Lasix TAB 40 mg PO PRN PRN 12/07/16 10/22/18 10/24/17 History Percocet 10/325 mg 1 tab PO PRN PRN 12/07/16 10/22/18 10/30/17 History Albuterol Sulfate [Albuterol 0.63% 0.63 mg IH TID PRN 10/22/17 10/22/18 10/29/17 History NEBS] Active Medications: Generic Name Dose Route Start Last Admin Trade Name Freq PRN Reason Stop Dose Admin Acetaminophen 650 mg 10/22/18 20:10 11/17/18 20:17 Tylenol PO 650 mg Q4H PRN Administration Pain MILD(1-3)/Fever >100.5/PORTER Albuterol 2.5 mg 10/22/18 20:14 11/05/18 16:35 Proventil IH 2.5 mg Q4HRT PRN Administration Shortness Of Breath Lipase/Protease/Amylase 1 each 11/05/18 10:13 Pancreaze 10,500 Unit FEEDTUBE PRN PRN For Clogged Feeding Tube Arformoterol Tartrate 15 mcg 11/05/18 20:00 11/18/18 08:04 Brovana Nebu IH 15 mcg Q12HRT RICK Administration Budesonide 0.5 mg 10/23/18 08:00 11/18/18 08:04 Pulmicort IH 0.5 mg Q12HRT RICK Administration Clonazepam 1 mg 11/18/18 11:00 11/18/18 11:04 Klonopin PO 1 mg TID RICK Administration Dextrose 50 ml 10/26/18 23:40 10/27/18 00:20 D50w (25gm) Syringe IV 50 ml PRN PRN Administration Hypoglycemia Enoxaparin Sodium 40 mg 11/14/18 22:00 11/17/18 21:50 Lovenox SUB-Q 40 mg QDAY@2200 RICK Administration Fentanyl 50 mcg 11/18/18 11:00 11/18/18 11:00 Duragesic TD 50 mcg Q3D RICK Administration Gabapentin 600 mg 11/12/18 10:00 11/18/18 05:30 Neurontin PO 600 mg Q8HR RICK Administration Hydralazine HCl 10 mg 10/22/18 21:41 11/07/18 00:04 Apresoline IV 10 mg Q4HR PRN Administration Blood Pressure Hydromorphone HCl 1 mg 11/12/18 09:55 11/18/18 09:59 Dilaudid IV 1 mg Q4H PRN Administration Pain , Severe (7-10) Hydrophilic Ointment 1 applic 11/07/18 09:14 Vaseline Lip Therapy TP Q2HR PRN Dry Lips Insulin Human Isoph/Insulin Regular 12 unit 11/10/18 22:00 11/18/18 09:59 Humulin 70/30 SUB-Q 12 unit BID RICK Administration Insulin Human Lispro 0 unit 10/29/18 12:00 11/18/18 05:31 Humalog SUB-Q Not Given Q6HR [facility] Protocol Lansoprazole 30 mg 11/17/18 10:00 11/18/18 09:59 Prevacid Solutab FEEDTUBE 30 mg QDAY RICK Administration Lorazepam 0.5 mg 11/18/18 11:00 Ativan IV Q6H PRN Anxiety Methylprednisolone Sodium Succinate 20 mg 11/17/18 14:00 11/18/18 05:29 Solu-Medrol IV 20 mg Q8HR [facility] Administration Metoprolol Tartrate 25 mg 11/17/18 20:00 11/18/18 07:47 Lopressor PO 25 mg TID [facility] Administration Multi-Ingred Cream/Lotion/Oil/Oint 1 applic 11/07/18 09:14 Artificial Tears Ophth Oint OU Q4HR PRN Dry Eye(s) Ondansetron HCl 4 mg 10/24/18 10:05 10/25/18 17:26 Zofran IV 4 mg Q6H PRN Administration Nausea And Vomiting Phenol 1 spray 10/28/18 10:16 Chloraseptic MM PRN PRN Sore Throat Promethazine HCl 25 mg 10/22/18 20:10 10/22/18 21:21 Phenergan [place] 25 mg Q6H PRN Administration Nausea And Vomiting Propranolol HCl 20 mg 11/18/18 14:00 Inderal PO TID [facility] Quetiapine Fumarate 300 mg 11/12/18 10:00 11/18/18 09:55 Seroquel PO 300 mg DAILY [facility] Administration Simple Syrup 15 ml 11/05/18 10:13 Simple Syrup FEEDTUBE PRN PRN Hypoglycemia Simple Syrup 30 ml 11/05/18 10:13 Simple Syrup FEEDTUBE PRN PRN Hypoglycemia Sodium Bicarbonate 325 mg 11/05/18 10:13 Sodium Bicarbonate FEEDTUBE PRN PRN For Clogged Feeding Tube Sodium Chloride 10 ml 10/22/18 22:00 11/18/18 10:35 Sodium Chloride Flush Syringe 10 Ml IV Not Given BID RICK Sodium Chloride 10 ml 10/22/18 20:10 11/09/18 14:29 Sodium Chloride Flush Syringe 10 Ml IV 10 ml PRN PRN Administration LINE FLUSH
[2018-11-18] MEDS: INDERAL PO SCH ×2 (14:20→20:00)
[2018-11-18] MEDS: LOVENOX SUB-Q SCH (21:10)
[2018-11-19] MEDS: HumaLOG SUB-Q SCH ×3 (00:28→12:25)
[2018-11-19] MEDS: DILAUDID IV PRN ×3 (05:45→18:57)
[2018-11-19] MEDS: NEURONTIN PO SCH ×3 (05:46→21:50)
[2018-11-19] MEDS: SOLU-Medrol IV SCH ×3 (05:46→22:50)
--- NOTE | 2018-11-19 07:40 | Hem/Onc Progress Note ---
Assessment and Plan 1. h/o Thrombocytopenia, likely medication, pts medical status related. better 2. History of colon surgery in the past, details not clear. 3. History of bowel issues. Seen by surgical team. - pSBO and contained gastric perforation 4. h/o TPN. 5. h/o Ayla, ID following. 6. Chronic obstructive pulmonary disease. 7. Hypertension. 8. History of lupus. 9. Aspiration pneumonia. 10. The patient was on ventilation. 11. Renal impairment. 11/19 pt on vent - trach - pulm following anemia - s/p iv iron h/o b12 inj at home - monthly - s/p same slight SOB - Patient Problems (1) Thrombocytopenia Current Visit: Yes Status: Acute Subjective Date of service: 11/19/18 Principal diagnosis: anemia Interval history: on vent - trach Objective - Constitutional Vitals: Last Vital Signs Temp 98.8 F 11/19/18 04:00 Pulse 106 H 11/19/18 05:30 Resp 20 11/19/18 05:30 BP 111/51 11/19/18 05:30 Pulse Ox 94 11/19/18 05:30 Pain Intensity (0-10): denies any pain General appearance: mild distress (sob) Performance status: 4-completely disabled - EENT Eyes: EOM intact ENT: other (on trach - vent) Lymph node exam: negative cervical - Neck Neck: other (trach) - Respiratory Respiratory effort: Positive: labored Respiratory: bilateral: diminished - Cardiovascular Heart Sounds: Present: S1 & S2 Extremities: normal temperature - Gastrointestinal General gastrointestinal: Present: soft Rectal Exam: deferred - Genitourinary Female genitourinary: Present: deferred - Integumentary Integumentary: warm - Musculoskeletal Musculoskeletal: generalized weakness - Labs Lab Results: Laboratory Results - last 24 hr 11/18/18 11/18/18 11/18/18 13:52 18:05 23:33 POC Glucose 109 H 174 H 178 H 11/19/18 05:34 POC Glucose 116 H Medications & Allergies - Medications Allergies/Adverse Reactions: Allergies Sulfa (Sulfonamide Antibiotics) Allergy (Intermediate, Verified 10/22/18 16:30) Rash metoclopramide HCl [From Reglan] Allergy (Verified 10/22/18 16:30) Dizziness prochlorperazine [From Compazine] Allergy (Verified 10/22/18 16:30) NECK STIFFNESS Home Medications: Home Medications Medication Instructions Recorded Confirmed Last Taken Type Ondansetron 4 mg PO Q6HR PRN 12/05/16 10/22/18 10/29/17 History Propranolol HCl [Propranolol HCl 60 mg PO DAILY 12/05/16 10/22/18 10/30/17 22:00 History ER] QUEtiapine [SEROquel] 300 mg PO DAILY 12/05/16 10/22/18 10/30/17 History Lasix TAB 40 mg PO PRN PRN 12/07/16 10/22/18 10/24/17 History Percocet 10/325 mg 1 tab PO PRN PRN 12/07/16 10/22/18 10/30/17 History Albuterol Sulfate [Albuterol 0.63% 0.63 mg IH TID PRN 10/22/17 10/22/18 10/29/17 History NEBS] Active Medications: Generic Name Dose Route Start Last Admin Trade Name Freq PRN Reason Stop Dose Admin Acetaminophen 650 mg 10/22/18 20:10 11/17/18 20:17 Tylenol PO 650 mg Q4H PRN Administration Pain MILD(1-3)/Fever >100.5/PORTER Albuterol 2.5 mg 10/22/18 20:14 11/05/18 16:35 Proventil IH 2.5 mg Q4HRT PRN Administration Shortness Of Breath Lipase/Protease/Amylase 1 each 11/05/18 10:13 Pancremaranda Simpson 10,500 Unit FEEDTUBE PRN PRN For Clogged Feeding Tube Arformoterol Tartrate 15 mcg 11/05/18 20:00 11/18/18 19:50 Brovana Nebu IH 15 mcg Q12HRT RICK Administration Budesonide 0.5 mg 10/23/18 08:00 11/18/18 19:50 Pulmicort IH 0.5 mg Q12HRT RICK Administration Clonazepam 1 mg 11/18/18 11:00 11/18/18 20:46 Klonopin PO 1 mg TID RICK Administration Dextrose 50 ml 10/26/18 23:40 10/27/18 00:20 D50w (25gm) Syringe IV 50 ml PRN PRN Administration Hypoglycemia Enoxaparin Sodium 40 mg 11/14/18 22:00 11/18/18 21:10 Lovenox SUB-Q 40 mg QDAY@2200 RICK Administration Fentanyl 50 mcg 11/18/18 11:00 11/18/18 11:00 Duragesic TD 50 mcg Q3D RICK Administration Gabapentin 600 mg 11/12/18 10:00 11/19/18 05:46 Neurontin PO 600 mg Q8HR RICK Administration Hydralazine HCl 10 mg 10/22/18 21:41 11/07/18 00:04 Apresoline IV 10 mg Q4HR PRN Administration Blood Pressure Hydromorphone HCl 1 mg 11/12/18 09:55 11/19/18 05:45 Dilaudid IV 1 mg Q4H PRN Administration Pain , Severe (7-10) Hydrophilic Ointment 1 applic 11/07/18 09:14 Vaseline Lip Therapy TP Q2HR PRN Dry Lips Insulin Human Isoph/Insulin Regular 12 unit 11/10/18 22:00 11/18/18 21:10 Humulin 70/30 SUB-Q 12 unit BID RICK Administration Insulin Human Lispro 0 unit 10/29/18 12:00 11/19/18 05:47 Humalog SUB-Q Not Given Q6HR [facility] Protocol Lansoprazole 30 mg 11/17/18 10:00 11/18/18 09:59 Prevacid Solutab FEEDTUBE 30 mg QDAY [facility] Administration Lorazepam 0.5 mg 11/18/18 11:00 Ativan IV Q6H PRN Anxiety Methylprednisolone Sodium Succinate 20 mg 11/17/18 14:00 11/19/18 05:46 Solu-Medrol IV 20 mg Q8HR RICK Administration Metoprolol Tartrate 25 mg 11/17/18 20:00 11/18/18 20:00 Lopressor PO 25 mg TID [facility] Administration Multi-Ingred Cream/Lotion/Oil/Oint 1 applic 11/07/18 09:14 Artificial Tears Ophth Oint OU Q4HR PRN Dry Eye(s) Ondansetron HCl 4 mg 10/24/18 10:05 10/25/18 17:26 Zofran IV 4 mg Q6H PRN Administration Nausea And Vomiting Phenol 1 spray 10/28/18 10:16 Chloraseptic MM PRN PRN Sore Throat Promethazine HCl 25 mg 10/22/18 20:10 10/22/18 21:21 Phenergan [place] 25 mg Q6H PRN Administration Nausea And Vomiting Propranolol HCl 20 mg 11/18/18 14:00 11/18/18 20:00 Inderal PO 20 mg TID RICK Administration Quetiapine Fumarate 300 mg 11/12/18 10:00 11/18/18 09:55 Seroquel PO 300 mg DAILY RICK Administration Simple Syrup 15 ml 11/05/18 10:13 Simple Syrup FEEDTUBE PRN PRN Hypoglycemia Simple Syrup 30 ml 11/05/18 10:13 Simple Syrup FEEDTUBE PRN PRN Hypoglycemia Sodium Bicarbonate 325 mg 11/05/18 10:13 Sodium Bicarbonate FEEDTUBE PRN PRN For Clogged Feeding Tube Sodium Chloride 10 ml 10/22/18 22:00 11/18/18 22:05 Sodium Chloride Flush Syringe 10 Ml IV 10 ml BID RICK Administration Sodium Chloride 10 ml 10/22/18 20:10 11/09/18 14:29 Sodium Chloride Flush Syringe 10 Ml IV 10 ml PRN PRN Administration LINE FLUSH
[2018-11-19] MEDS: BROVANA NEBU IH SCH ×2 (08:20→19:30)
[2018-11-19] MEDS: PULMICORT IH SCH ×2 (08:20→19:30)
[2018-11-19 08:56] LABS: Hematocrit 26.7 % (30.3-42.9); Hemoglobin 8.9 gm/dl (10.1-14.3); Mean Corpuscular HGB Conc 34 % (30-34); Mean Corpuscular Volume 95 fl (79-97); Platelet Count 398 K/mm3 (140-440); Red Cell Distribution Width 16.5 % (13.2-15.2)
--- NOTE | 2018-11-19 08:57 | Progress Note ---
Assessment and Plan Assessment and plan: Patient is 73-year-old female with history of hypertension, lupus, fibromyalgia, COPD, opioid dependence (follows Dr. Felix Muñiz at pain clinic) who [facility] with complaints of intractable nausea, vomiting, diarrhea for 3 days. On initial presentation to the ED she was found to be tachycardiac with heart rate 113 BPM, leukocytosis with WBC 11.5, elevated BUN/Cr 51/2.1. Patient has history of COPD and at baseline does not require home oxygen use. She was admitted to [facility]. GI was consulted, she was evaluated. CT Abdomen revealed partial SBO versus ileus therefore surgeon consulted. Also patient became more short of breath, placed on BIPAP with no improvement then intubated 10/26/18 for acute resp failure and transferred to ICU. Obstruction series completed on 10/27 which showed improved but small bowel and stomach dilatation. Follow-up series on 10/28 showed no significant change since previous study. NG tube was removed due to patient not tolerating/refusing. Patient was placed back on BiPAP but decompensated on the night of 10/28/18 and had to be reintubated. Patient currently on mechanical ventilation. Patient has had further complications now with findings consistent with contained gastric perforation on repeat CT scan 10/30, managed conservatively. She was extubated 11/05, re-intubated 11/07/18. This is 3rd intubation so Tracheostomy was recommended and done 11/13/18. No PEG yet, for at least 2 weeks because of recent gastric perforation. Acute hypoxic respiratory failure. Patient was reintubated on 10/28/18 and currently on mechanical ventilation. Etiology secondary to COPD/pneumonia/sepsis. Extubated 11/05, re-intubated 11/07 Wean mechanical ventilation per pulmonary. Patient Initiated on T piece trial yesterday, monitor during the day. The patient tolerated 4 hours T piece yesterday. Continue to be stressed today and mechanical vent at nighttime. Gastric perforation. Repeat CT scan on 10/30 revealed pSBO resolved, no evidence for bowel ischemia. Small contained gastric perforation at lesser curve. No gross free air or contrast extravasation. Surgery recommends conservative management Sepsis/candidemia. Etiology initially most likely related to aspiration pneumonia and gastric perforation. Patient now with Ayla glabrata. PICC line removed. Repeat fungal cultures are negative. Complete a 14 day course of antifungals. Removed current central line and inserted midline. ID started fluconazole 11/13/18 and discontinued micafungin. Thrombocytopenia. Etiology likely secondary to sepsis. Hematology following. Bilateral upper lobe/aspiration pneumonia. Sputum culture positive for Escherichia coli and stenotrophomonas. Continue antibiotics per ID. Bilateral pleural effusions. Acute exacerbation COPD. Scheduled Duo Nebs and Pulmicort; albuterol when necessary Presumed aspiration pneumonia versus healthcare associated pneumonia. Tracheal aspirate cultures from 10/28 with Escherichia coli and stenotrophomonas. Completed antibiotics. Hypokalemia. Replete potassium as needed. Hypertension. IV hydralazine when necessary Lupus. Supportive care Fibromyalgia. supportive care History of opioid dependence ADWOA due to vasomotor nephropathy, now resolved Full code status Plan is LTAC placement The high probability of a clinically significant, sudden or life threatening deterioration of the [GI and respiratory] system(s) required my full and direct attention, intervention and personal management. The aggregate critical care time was [31] minutes. This time is in addition to time spent performing reported procedures but includes the following: [x] Data Review and interpretation [x] Patient assessment and monitoring of vital signs [x] Documentation [x] Medication orders and management History Interval history: Patient had trach on 11/13 Diarrhea No abd pain currently anxious Hospitalist Physical - Physical exam Narrative exam: Gen: Not in distress, tracheostomy HEENT: Normocephalic, atraumatic, NG tube Neck: supple, no JVD Heart: S1 and S2 reg, no murmurs, rubs or gallop Lungs: Clear bilat, decreased breath sounds bilat. no wheeze Abd: soft, non tender, no rebound tenderness, non distended, BS present Ext: No edema, no clubbing, no cyanosis, Neuro: Awake,alert, follows commands - Constitutional Vitals: Temp Pulse Resp BP Pulse Ox 98.8 F 110 H 18 118/52 95 11/19/18 08:00 11/19/18 08:20 11/19/18 08:20 11/19/18 08:00 11/19/18 08:00 General appearance: Present: other (intubated, opens eyes to commands) Results - Labs CBC & Chem 7: 11/19/18 08:35 11/19/18 08:35 Labs: Laboratory Last Values WBC 18.3 K/mm3 (4.5-11.0) H 11/18/18 04:26 RBC 2.52 M/mm3 (3.65-5.03) L 11/18/18 04:26 Hgb 8.0 gm/dl (10.1-14.3) L 11/18/18 04:26 Hct 24.5 % (30.3-42.9) L 11/18/18 04:26 MCV 97 fl (79-97) 11/18/18 04:26 MCH 32 pg (28-32) 11/18/18 04:26 MCHC 33 % (30-34) 11/18/18 04:26 RDW 16.0 % (13.2-15.2) H 11/18/18 04:26 Plt Count 373 K/mm3 (140-440) 11/18/18 04:26 Lymph % (Auto) [employer] L[employer]ison 11/14/18 07:59 [place] % (Auto) [employer] Liaison 11/14/18 07:59 Eos % (Auto) [employer] Liaison 11/14/18 07:59 Baso % (Auto) [employer]iaison 11/14/18 07:59 Lymph # [employer]ison 11/14/18 07:59 [place] # [employer]iaison 11/14/18 07:59 Eos # [employer]iaison 11/14/18 07:59 Baso # [employer]iaison 11/14/18 07:59 Add Manual Diff Complete 11/18/18 04:26 Total Counted 100 11/18/18 04:26 Seg Neutrophils % [employer]iaison 11/17/18 04:25 Seg Neuts % (Manual) 96.0 % (40.0-70.0) H 11/18/18 04:26 1.0 % 11/18/18 04:26 0 % (13.4-35.0) L 11/18/18 04:26 Reactive Lymphs % (Man) 0 % 11/18/18 04:26 3.0 % (0.0-7.3) 11/18/18 04:26 0 % (0.0-4.3) 11/18/18 04:26 0 % (0.0-1.8) 11/18/18 04:26 0 % 11/18/18 04:26 0 % 11/18/18 04:26 0 % 11/18/18 04:26 0 % 11/18/18 04:26 Nucleated RBC % Not Reportable 11/18/18 04:26 Seg Neutrophils # [employer] Liaison 11/14/18 07:59 Seg Neutrophils # Man 17.6 K/mm3 (1.8-7.7) H 11/18/18 04:26 Band Neutrophils # 0.2 K/mm3 11/18/18 04:26 0.0 K/mm3 (1.2-5.4) L 11/18/18 04:26 Abs React Lymphs (Man) 0.0 K/mm3 11/18/18 04:26 0.5 K/mm3 (0.0-0.8) 11/18/18 04:26 0.0 K/mm3 (0.0-0.4) 11/18/18 04:26 0.0 K/mm3 (0.0-0.1) 11/18/18 04:26 0.0 K/mm3 11/18/18 04:26 0.0 K/mm3 11/18/18 04:26 0.0 K/mm3 11/18/18 04:26 Blast Cells # 0.0 K/mm3 11/18/18 04:26 WBC Morphology Not Reportable 11/18/18 04:26 WBC Morphology TNR 11/18/18 04:26 Hypersegmented Neuts Not Reportable 11/18/18 04:26 Hyposegmented Neuts Not Reportable 11/18/18 04:26 Hypogranular Neuts Not Reportable 11/18/18 04:26 Not Reportable 11/18/18 04:26 Not Reportable 11/18/18 04:26 Not Reportable 11/18/18 04:26 Not Reportable 11/18/18 04:26 Not Reportable 11/18/18 04:26 Not Reportable 11/18/18 04:26 Consistent w auto 11/18/18 04:26 Not Reportable 11/18/18 04:26 Plt Clumps, EDTA Not Reportable 11/18/18 04:26 Not Reportable 11/18/18 04:26 Not Reportable 11/18/18 04:26 Not Reportable 11/18/18 04:26 Plt Morphology Comment Not Reportable 11/18/18 04:26 RBC Morphology Not Reportable 11/18/18 04:26 Dimorphic RBCs Not Reportable 11/18/18 04:26 Not Reportable 11/18/18 04:26 Not Reportable 11/18/18 04:26 Not Reportable 11/18/18 04:26 Not Reportable 11/18/18 04:26 Not Reportable 11/18/18 04:26 Not Reportable 11/18/18 04:26 Not Reportable 11/18/18 04:26 Not Reportable 11/18/18 04:26 Not Reportable 11/18/18 04:26 Not Reportable 11/18/18 04:26 Not Reportable 11/18/18 04:26 Not Reportable 11/18/18 04:26 Few 11/17/18 04:25 Not Reportable 11/18/18 04:26 Not Reportable 11/18/18 04:26 Not Reportable 11/18/18 04:26 Not Reportable 11/18/18 04:26 Not Reportable 11/18/18 04:26 Not Reportable 11/18/18 04:26 Not Reportable 11/18/18 04:26 Acanthocytes (Spur) Not Reportable 11/18/18 04:26 Rouleaux Not Reportable 11/18/18 04:26 Not Reportable 11/18/18 04:26 Not Reportable 11/18/18 04:26 Not Reportable 11/18/18 04:26 Not Reportable 11/18/18 04:26 Hem Pathologist Commnt No 11/18/18 04:26 Heparin Anti-Xa, Unfract Negative (Negative) 10/30/18 13:58 POC ABG pH 7.446 (7.35-7.45) 11/15/18 11:33 POC ABG pCO2 46.1 (35-45) H 11/15/18 11:33 POC ABG pO2 107 (80-105) H 11/15/18 11:33 POC ABG HCO3 31.8 (22-26 mml/L) 11/15/18 11:33 POC ABG Total CO2 33 (23-27mmol/L) 11/15/18 11:33 POC ABG O2 Sat 98 11/15/18 11:33 POC ABG Base Excess 8 ((-2) - (+3)mmol/L) 11/15/18 11:33 30 % 11/15/18 11:33 Sodium 149 mmol/L (137-145) H 11/18/18 04:26 Potassium 4.0 mmol/L (3.6-5.0) 11/18/18 04:26 Chloride 110.5 mmol/L (98-107) H 11/18/18 04:26 Carbon Dioxide 30 mmol/L (22-30) 11/18/18 04:26 13 mmol/L 11/18/18 04:26 BUN 41 mg/dL (7-17) H 11/18/18 04:26 0.4 mg/dL (0.7-1.2) L 11/18/18 04:26 Estimated GFR > 60 ml/min 11/18/18 04:26 103 % 11/18/18 04:26 Glucose 127 mg/dL (65-100) H 11/18/18 04:26 POC Glucose 116 (70-105) H 11/19/18 05:34 Lactic Acid 1.60 mmol/L (0.7-2.0) 10/26/18 15:03 Calcium 7.9 mg/dL (8.4-10.2) L 11/18/18 04:26 Phosphorus 2.80 mg/dL (2.5-4.5) 11/11/18 05:50 Magnesium 1.80 mg/dL (1.7-2.3) 11/11/18 05:50 Iron 31 ug/dL (37-170) L 11/14/18 03:28 TIBC 173 mcg/dL (250-450) L 11/14/18 03:28 510.3 ng/mL (13.0-400.0) H 11/14/18 03:28 0.30 mg/dL (0.1-1.2) 11/11/18 05:50 AST 26 units/L (5-40) 11/11/18 05:50 ALT 28 units/L (7-56) 11/11/18 05:50 142 units/L (35-129) H 11/11/18 05:50 NT-Pro-B Natriuret Pep 4507 pg/mL (0-900) H 11/07/18 04:55 4.4 g/dL (6.3-8.2) L 11/11/18 05:50 2.1 g/dL (3.9-5) L 11/11/18 05:50 0.9 % 11/11/18 05:50 Triglycerides 132 mg/dL (2-149) 11/01/18 06:40 10 units/L (13-60) L 10/22/18 15:54 See scanned result 10/30/18 13:58 TSH 3.150 mlU/mL (0.270-4.200) 10/31/18 17:00 Free T4 0.49 ng/dL (0.76-1.46) L 10/31/18 17:00 Dulce (Yellow) 10/22/18 19:10 Clear (Clear) 10/22/18 19:10 5.0 (5.0-7.0) 10/22/18 19:10 Ur Specific [place] 1.018 (1.003-1.030) 10/22/18 19:10 30 mg/dl mg/dL (Negative) 10/22/18 19:10 Neg mg/dL (Negative) 10/22/18 19:10 Tr mg/dL (Negative) 10/22/18 19:10 Neg (Negative) 10/22/18 19:10 Neg (Negative) 10/22/18 19:10 Neg (Negative) 10/22/18 19:10 < 2.0 mg/dL (<2.0) 10/22/18 19:10 Ur Leukocyte Esterase Neg (Negative) 10/22/18 19:10 1.0 /HPF (0.0-6.0) 10/22/18 19:10 3.0 /HPF (0.0-6.0) 10/22/18 19:10 Heparin-induced Plt Ab Negative (Negative) 10/30/18 13:58 UF Heparin High Dose 0 % Release 10/30/18 13:58 KIMO UFH Low Dose 0.1 0 % Release 10/30/18 13:58 KIMO UFH Low Dose 0.5 0 % Release 10/30/18 13:58 Active Medications - Current Medications Current Medications: Generic Name Dose Route Start Last Admin Trade Name Freq PRN Reason Stop Dose Admin Acetaminophen 650 mg 10/22/18 20:10 11/17/18 20:17 Tylenol PO 650 mg Q4H PRN Administration Pain MILD(1-3)/Fever >100.5/PORTER Albuterol 2.5 mg 10/22/18 20:14 11/05/18 16:35 Proventil IH 2.5 mg Q4HRT PRN Administration Shortness Of Breath Lipase/Protease/Amylase 1 each 11/05/18 10:13 Gwendolyn Simpson 10,500 Unit FEEDTUBE PRN PRN For Clogged Feeding Tube Arformoterol Tartrate 15 mcg 11/05/18 20:00 11/19/18 08:20 Brovana Nebu IH 15 mcg Q12HRT RICK Administration Budesonide 0.5 mg 10/23/18 08:00 11/19/18 08:20 Pulmicort IH 0.5 mg Q12HRT RICK Administration Clonazepam 1 mg 11/18/18 11:00 11/18/18 20:46 Klonopin PO 1 mg TID RICK Administration Dextrose 50 ml 10/26/18 23:40 10/27/18 00:20 D50w (25gm) Syringe IV 50 ml PRN PRN Administration Hypoglycemia Enoxaparin Sodium 40 mg 11/14/18 22:00 11/18/18 21:10 Lovenox SUB-Q 40 mg QDAY@2200 RICK Administration Fentanyl 50 mcg 11/18/18 11:00 11/18/18 11:00 Duragesic TD 50 mcg Q3D RICK Administration Gabapentin 600 mg 11/12/18 10:00 11/19/18 05:46 Neurontin PO 600 mg Q8HR RICK Administration Hydralazine HCl 10 mg 10/22/18 21:41 11/07/18 00:04 Apresoline IV 10 mg Q4HR PRN Administration Blood Pressure Hydromorphone HCl 1 mg 11/12/18 09:55 11/19/18 05:45 Dilaudid IV 1 mg Q4H PRN Administration Pain , Severe (7-10) Hydrophilic Ointment 1 applic 11/07/18 09:14 Vaseline Lip Therapy TP Q2HR PRN Dry Lips Insulin Human Isoph/Insulin Regular 12 unit 11/10/18 22:00 11/18/18 21:10 Humulin 70/30 SUB-Q 12 unit BID RICK Administration Insulin Human Lispro 0 unit 10/29/18 12:00 11/19/18 05:47 Humalog SUB-Q Not Given Q6HR [facility] Protocol Lansoprazole 30 mg 11/17/18 10:00 11/18/18 09:59 Prevacid Solutab FEEDTUBE 30 mg QDAY RICK Administration Lorazepam 0.5 mg 11/18/18 11:00 Ativan IV Q6H PRN Anxiety Methylprednisolone Sodium Succinate 20 mg 11/17/18 14:00 11/19/18 05:46 Solu-Medrol IV 20 mg Q8HR RICK Administration Multi-Ingred Cream/Lotion/Oil/Oint 1 applic 11/07/18 09:14 Artificial Tears Ophth Oint OU Q4HR PRN Dry Eye(s) Ondansetron HCl 4 mg 10/24/18 10:05 10/25/18 17:26 Zofran IV 4 mg Q6H PRN Administration Nausea And Vomiting Phenol 1 spray 10/28/18 10:16 Chloraseptic MM PRN PRN Sore Throat Promethazine HCl 25 mg 10/22/18 20:10 10/22/18 21:21 Phenergan SD 25 mg Q6H PRN Administration Nausea And Vomiting Propranolol HCl 20 mg 11/18/18 14:00 11/18/18 20:00 Inderal PO 20 mg TID RICK Administration Quetiapine Fumarate 300 mg 11/12/18 10:00 11/18/18 09:55 Seroquel PO 300 mg DAILY RICK Administration Simple Syrup 15 ml 11/05/18 10:13 Simple Syrup FEEDTUBE PRN PRN Hypoglycemia Simple Syrup 30 ml 11/05/18 10:13 Simple Syrup FEEDTUBE PRN PRN Hypoglycemia Sodium Bicarbonate 325 mg 11/05/18 10:13 Sodium Bicarbonate FEEDTUBE PRN PRN For Clogged Feeding Tube Sodium Chloride 10 ml 10/22/18 22:00 11/18/18 22:05 Sodium Chloride Flush Syringe 10 Ml IV 10 ml BID RICK Administration Sodium Chloride 10 ml 10/22/18 20:10 11/09/18 14:29 Sodium Chloride Flush Syringe 10 Ml IV 10 ml PRN PRN Administration LINE FLUSH Nutrition/Malnutrition Assess - Dietary Evaluation Nutrition/Malnutrition Findings: Nutrition Notes Start: 10/23/18 17:03 Freq: Status: Active Protocol: Document 11/14/18 16:38 RM (Rec: 11/14/18 16:47 RM [id number]) Nutrition Notes Initial or Follow up Reassessment Other Pertinent Diagnosis Gastric peforation, bilat pneu Current Diet TF - Vital AF 1.2 at 45 ml/hr Labs/Tests Reviewed Pertinent Medications Lasix, Solu-medrol Height 5 ft 3 in Weight 63 kg [place] Body Weight (kg) 52.27 BMI 24.5 Subjective/Other Information Observed Vital 1.2 infusing at goal. Per nurse pt is tolerating TF and has rectal tube in place. Percent of energy/protein needs met: 83%/100% Burn Absent Trauma Absent #1 Nutrition Diagnosis Inadequate oral intake Diagnosis Progress(for reassessment Continues documentation) Is patient on ventilator? Yes Is Patient Ambulatory and/or Out of Bed No REE-(Duval-St. Jeor-confined to bed) 1337.112 Kcal/Kg value to use for calculation 25 Approximate Energy Requirements Using 1575 kcal/Kg Calculation Used for Recommendations [facility] or Additional Notes Pro needs 1.2-2g/kg (based on UBW): 60-100g/day Fluid needs 1ml/kcal Nutrition Intervention Nutrition Support: Vital 1.2 at 45 ml/hr. Water flush of 70 ml q 4 hrs. Kcal 1,296 Protein (gm) 81 Fluid (mL) 876 Fiber (gm) 5 Goal #1 TF tolerance Goal #2 TF to continue to meet at least 75% energy and pro needs Follow-Up By: 11/19/18 Additional Comments F/U: TF tolerance
[2018-11-19 09:12] LABS: BUN/Creatinine Ratio 117; Blood Urea Nitrogen 35 mg/dL (7-17); Calcium 7.9 mg/dL (8.4-10.2); Hemolysis Index 26
[2018-11-19] MEDS: ATIVAN IV PRN (09:31)
[2018-11-19] MEDS: PREVACID SOLUTAB FEEDTUBE SCH (09:47)
[2018-11-19] MEDS: INDERAL PO SCH ×3 (09:48→20:33)
--- NOTE | 2018-11-19 10:28 | Progress Note ---
Assessment and Plan Currently stable cardiac status. Cont present cardiac management. Will follow on as needed basis. The patient has been seen in conjunction with Dr. Roly Pablo who agrees with the assessment and plan of care. - Patient Problems (1) Atrial tachycardia, paroxysmal Current Visit: Yes Status: Acute (2) Acute heart failure with preserved ejection fraction Current Visit: Yes Status: Acute (3) Acute on chronic respiratory failure Current Visit: Yes Status: Acute (4) Perforated gastric ulcer Current Visit: Yes Status: Acute (5) Intractable nausea and vomiting Current Visit: Yes Status: Acute (6) Partial small bowel obstruction Current Visit: Yes Status: Acute (7) COPD (chronic obstructive pulmonary disease) Current Visit: Yes Status: Chronic (8) History of hypertension Current Visit: Yes Status: Chronic (9) ADWOA (acute kidney injury) Current Visit: Yes Status: Acute (10) Hypokalemia Current Visit: Yes Status: Acute Subjective Date of service: 11/19/18 Principal diagnosis: anemia Interval history: pt trached, alert, in ST HR 100s on tele. at bedside. Objective Last Vital Signs Temp 98.8 F 11/19/18 08:00 Pulse 104 H 11/19/18 09:48 Resp 18 11/19/18 08:20 BP 119/44 11/19/18 09:48 Pulse Ox 95 11/19/18 08:00 - Physical Examination General: Other (trached) HEENT: Positive: EOMI, Normocephaly, Mucus Membranes Moist Neck: Positive: neck supple, trachea midline Cardiac: Positive: Regular Rhythm, S1/S2 Lungs: Positive: Rhonchi Neuro: Positive: Other (trached) Abdomen: Positive: Soft. Negative: Tender Skin: Positive: Clear. Negative: Rash Musculoskeletal: Decreased Range of Motion, Normal Range of Motion Extremities: Present: normal. Absent: edema - Labs and Meds CBC 11/19/18 Range/Units 08:35 WBC 22.3 H (4.5-11.0) K/mm3 RBC 2.80 L (3.65-5.03) M/mm3 Hgb 8.9 L (10.1-14.3) gm/dl Hct 26.7 L (30.3-42.9) % Plt Count 398 (140-440) K/mm3 Comprehensive Metabolic Panel 11/19/18 Range/Units 08:35 Sodium 147 H (137-145) mmol/L Potassium 4.2 (3.6-5.0) mmol/L Chloride 107.2 H (98-107) mmol/L Carbon Dioxide 30 (22-30) mmol/L BUN 35 H (7-17) mg/dL Creatinine 0.3 L (0.7-1.2) mg/dL Glucose 117 H (65-100) mg/dL Calcium 7.9 L (8.4-10.2) mg/dL - Imaging and Cardiology EKG: image reviewed Echo: report reviewed (EF 50%, trace TR, minimal pericardial effusion. ) - EKG Sinus rhythms and dysrhythmias: sinus rhythm - Allied health notes Allied health notes reviewed: nursing
--- NOTE | 2018-11-19 10:43 | Progress Note ---
Assessment and Plan 73 y/o female with bowel obstruction and now acute respiratory failure with hypercapnea, likely multifactorial from pain medications, anti-psychotic therapy and inability to take deep breaths for ventilation, now with fungemia from picc line placement. 1. Patient trached now and doing daily PSV trials. Will continue 2. Finished antifungal therapy 3. Tube feeds at goal now. ID concerned about diarrhea but spoke with nutrition and at this point, nothing to change about feeding. ID not concerned about an infectious cause of diarrhea. 4. Dropped steroids to 20q8. Will reassess later this week. Will likely decrease tomorrow to BID 5. 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 Referrals have been sent out. 6. Continue PT, did well with this. 8. Continue Klonopin and PRN ativan CCT 31 minutes. Subjective Date of service: 11/19/18 Principal diagnosis: anemia Interval history: No acute events overnight. Did not require any PRN ativan until this am. Currently on PSV and tolerating. Did PSV all day yesterday and was rested on the vent last night. Objective Vital Signs - 12hr 11/18/18 11/18/18 11/18/18 23:00 23:30 23:38 Temperature Pulse Rate 76 79 84 Pulse Rate [ Anterior Bilateral Throughout] Pulse Rate [ From Monitor] Respiratory 21 19 Rate Respiratory Rate [Anterior Bilateral Throughout] Blood Pressure 97/33 106/42 106/42 O2 Sat by Pulse 95 97 96 Oximetry O2 Sat by Pulse Oximetry [ Assessment] 11/18/18 11/18/18 11/19/18 23:53 23:58 00:00 Temperature 98.7 F Pulse Rate 78 Pulse Rate [ Anterior Bilateral Throughout] Pulse Rate [ 100 H From Monitor] Respiratory 18 16 Rate Respiratory Rate [Anterior Bilateral Throughout] Blood Pressure 114/41 O2 Sat by Pulse 98 Oximetry O2 Sat by Pulse Oximetry [ Assessment] 11/19/18 11/19/18 11/19/18 00:30 01:00 01:30 Temperature Pulse Rate 81 76 83 Pulse Rate [ Anterior Bilateral Throughout] Pulse Rate [ From Monitor] Respiratory 17 17 16 Rate Respiratory Rate [Anterior Bilateral Throughout] Blood Pressure 103/39 103/36 104/43 O2 Sat by Pulse 95 97 97 Oximetry O2 Sat by Pulse Oximetry [ Assessment] 11/19/18 11/19/18 11/19/18 02:00 02:30 03:00 Temperature Pulse Rate 83 84 97 H Pulse Rate [ Anterior Bilateral Throughout] Pulse Rate [ From Monitor] Respiratory 17 15 19 Rate Respiratory Rate [Anterior Bilateral Throughout] Blood Pressure 104/41 112/46 119/77 O2 Sat by Pulse 97 99 92 Oximetry O2 Sat by Pulse Oximetry [ Assessment] 11/19/18 11/19/18 11/19/18 03:30 03:37 04:00 Temperature 98.8 F Pulse Rate 91 H 94 H 93 H Pulse Rate [ Anterior Bilateral Throughout] Pulse Rate [ 100 H From Monitor] Respiratory 18 21 Rate Respiratory Rate [Anterior Bilateral Throughout] Blood Pressure 119/77 98/48 107/50 O2 Sat by Pulse 91 96 100 Oximetry O2 Sat by Pulse 94 Oximetry [ Assessment] 11/19/18 11/19/18 11/19/18 04:30 05:00 05:30 Temperature Pulse Rate 99 H 100 H 106 H Pulse Rate [ Anterior Bilateral Throughout] Pulse Rate [ From Monitor] Respiratory 17 16 20 Rate Respiratory Rate [Anterior Bilateral Throughout] Blood Pressure 111/46 111/51 111/51 O2 Sat by Pulse 93 94 94 Oximetry O2 Sat by Pulse Oximetry [ Assessment] 11/19/18 11/19/18 11/19/18 06:00 06:30 07:00 Temperature Pulse Rate 97 H 104 H 111 H Pulse Rate [ Anterior Bilateral Throughout] Pulse Rate [ From Monitor] Respiratory 18 20 16 Rate Respiratory Rate [Anterior Bilateral Throughout] Blood Pressure 112/55 122/58 132/72 O2 Sat by Pulse 94 93 92 Oximetry O2 Sat by Pulse Oximetry [ Assessment] 11/19/18 11/19/18 11/19/18 07:30 08:00 08:20 Temperature 98.8 F Pulse Rate 110 H 110 H Pulse Rate [ 110 H Anterior Bilateral Throughout] Pulse Rate [ From Monitor] Respiratory 17 Rate Respiratory 18 Rate [Anterior Bilateral Throughout] Blood Pressure 118/53 118/52 O2 Sat by Pulse 90 95 Oximetry O2 Sat by Pulse Oximetry [ Assessment] 11/19/18 09:48 Temperature Pulse Rate 104 H Pulse Rate [ Anterior Bilateral Throughout] Pulse Rate [ From Monitor] Respiratory Rate Respiratory Rate [Anterior Bilateral Throughout] Blood Pressure 119/44 O2 Sat by Pulse Oximetry O2 Sat by Pulse Oximetry [ Assessment] Constitutional: alert Eyes: non-icteric ENT: other (trach in position) Neck: supple, no JVD, other (trach is midline) Effort: mildly labored Ascultation: Bilateral: diminished breath sounds, rhonchi (sporadic) Percussion: Bilateral: not dull Cardiovascular: regular rate and rhythm Gastrointestinal: hypoactive bowel sounds, non-tender, non-distended, other Integumentary: normal Extremities: no edema Neurologic: normal mental status, non-focal exam Psychiatric: anxious CBC and BMP: 11/19/18 08:35 11/19/18 08:35 ABG, PT/INR, D-dimer: ABG POC ABG pH 7.446 (7.35-7.45) 11/15/18 11:33 POC ABG pCO2 46.1 (35-45) H 11/15/18 11:33 POC ABG pO2 107 (80-105) H 11/15/18 11:33 POC ABG HCO3 31.8 (22-26 mml/L) 11/15/18 11:33 POC ABG Total CO2 33 (23-27mmol/L) 11/15/18 11:33 POC ABG O2 Sat 98 11/15/18 11:33 Abnormal lab findings: Abnormal Labs 10/22/18 10/22/18 10/22/18 15:31 15:54 15:54 WBC 11.5 H RBC 5.35 H Hgb 17.4 H Hct 50.3 H MCV MCH 33 H MCHC 35 H RDW Plt Count Lymph % (Auto) 12.6 L [place] % (Auto) 14.8 H Lymph # [place] # 1.7 H Seg Neutrophils % 72.5 H Seg Neuts % (Manual) Lymphocytes % (Manual) Seg Neutrophils # 8.3 H Seg Neutrophils # Man Lymphocytes # (Manual) POC ABG pH POC ABG pCO2 POC ABG pO2 Sodium 134 L Potassium Chloride 88.1 L Carbon Dioxide BUN 51 H Creatinine 2.1 H Glucose 166 H POC Glucose Calcium Phosphorus Magnesium Iron TIBC Ferritin Alkaline Phosphatase NT-Pro-B Natriuret Pep Total Protein Albumin 3.4 L Lipase 10 L Free T4 10/23/18 10/23/18 10/23/18 04:32 04:32 10:53 WBC RBC Hgb Hct MCV MCH MCHC RDW Plt Count Lymph % (Auto) 10.2 L [place] % (Auto) 14.7 H Lymph # 0.7 L [place] # 1.0 H Seg Neutrophils % 74.9 H Seg Neuts % (Manual) Lymphocytes % (Manual) Seg Neutrophils # Seg Neutrophils # Man Lymphocytes # (Manual) POC ABG pH POC ABG pCO2 POC ABG pO2 Sodium Potassium 3.1 L D 3.5 L Chloride Carbon Dioxide BUN 41 H 37 H Creatinine Glucose 111 H 110 H POC Glucose Calcium 8.1 L 8.1 L Phosphorus Magnesium Iron TIBC Ferritin Alkaline Phosphatase NT-Pro-B Natriuret Pep Total Protein Albumin Lipase Free T4 10/24/18 10/24/18 10/25/18 05:34 05:34 04:51 WBC RBC Hgb Hct MCV MCH MCHC RDW Plt Count Lymph % (Auto) [place] % (Auto) Lymph # [place] # Seg Neutrophils % Seg Neuts % (Manual) Lymphocytes % (Manual) Seg Neutrophils # Seg Neutrophils # Man Lymphocytes # (Manual) POC ABG pH POC ABG pCO2 POC ABG pO2 Sodium Potassium 3.2 L 3.1 L Chloride 109.8 H 114.2 H Carbon Dioxide 17 L D BUN 21 H Creatinine Glucose 134 H 171 H POC Glucose Calcium 7.7 L 7.0 L Phosphorus 0.80 L* Magnesium Iron TIBC Ferritin Alkaline Phosphatase NT-Pro-B Natriuret Pep Total Protein Albumin Lipase Free T4 10/25/18 10/26/18 10/26/18 06:07 02:58 04:57 WBC RBC Hgb Hct MCV 99 H MCH 33 H MCHC RDW Plt Count Lymph % (Auto) [place] % (Auto) Lymph # [place] # Seg Neutrophils % Seg Neuts % (Manual) Lymphocytes % (Manual) Seg Neutrophils # Seg Neutrophils # Man Lymphocytes # (Manual) POC ABG pH 7.090 L 7.320 L POC ABG pCO2 65.0 H 32.8 L POC ABG pO2 76 L Sodium Potassium Chloride Carbon Dioxide BUN Creatinine Glucose POC Glucose Calcium Phosphorus Magnesium Iron TIBC Ferritin Alkaline Phosphatase NT-Pro-B Natriuret Pep Total Protein Albumin Lipase Free T4 10/26/18 10/26/18 10/26/18 06:03 06:03 11:52 WBC 23.8 H RBC Hgb 15.4 H Hct 46.1 H D MCV MCH MCHC RDW Plt Count Lymph % (Auto) [place] % (Auto) Lymph # [place] # Seg Neutrophils % Seg Neuts % (Manual) Lymphocytes % (Manual) Seg Neutrophils # Seg Neutrophils # Man Lymphocytes # (Manual) POC ABG pH POC ABG pCO2 POC ABG pO2 Sodium Potassium Chloride 109.5 H Carbon Dioxide 18 L BUN Creatinine Glucose 128 H POC Glucose 117 H Calcium 8.3 L D Phosphorus Magnesium Iron TIBC Ferritin Alkaline Phosphatase NT-Pro-B Natriuret Pep Total Protein Albumin Lipase Free T4 10/26/18 10/26/18 10/26/18 13:54 17:10 17:32 WBC RBC Hgb Hct MCV MCH MCHC RDW Plt Count Lymph % (Auto) [place] % (Auto) Lymph # [place] # Seg Neutrophils % Seg Neuts % (Manual) Lymphocytes % (Manual) Seg Neutrophils # Seg Neutrophils # Man Lymphocytes # (Manual) POC ABG pH 7.215 L POC ABG pCO2 31.8 L POC ABG pO2 69 L 204 H Sodium Potassium 3.0 L D Chloride 114.5 H Carbon Dioxide 21 L BUN Creatinine Glucose POC Glucose Calcium 7.6 L Phosphorus Magnesium 1.40 L Iron TIBC Ferritin Alkaline Phosphatase NT-Pro-B Natriuret Pep Total Protein Albumin Lipase Free T4 10/26/18 10/27/18 10/27/18 23:13 00:40 01:09 WBC RBC Hgb Hct MCV MCH MCHC RDW Plt Count Lymph % (Auto) [place] % (Auto) Lymph # [place] # Seg Neutrophils % Seg Neuts % (Manual) Lymphocytes % (Manual) Seg Neutrophils # Seg Neutrophils # Man Lymphocytes # (Manual) POC ABG pH POC ABG pCO2 POC ABG pO2 Sodium Potassium 3.4 L Chloride 115.0 H Carbon Dioxide 14 L D BUN Creatinine Glucose 228 H POC Glucose 48 L 264 H Calcium 7.1 L Phosphorus Magnesium Iron TIBC Ferritin Alkaline Phosphatase NT-Pro-B Natriuret Pep Total Protein Albumin Lipase Free T4 10/27/18 10/27/18 10/27/18 05:00 05:00 05:16 WBC 22.5 H RBC Hgb 14.7 H Hct 44.4 H MCV MCH MCHC RDW Plt Count Lymph % (Auto) [place] % (Auto) Lymph # [place] # Seg Neutrophils % Seg Neuts % (Manual) Lymphocytes % (Manual) Seg Neutrophils # Seg Neutrophils # Man Lymphocytes # (Manual) POC ABG pH 7.304 L POC ABG pCO2 POC ABG pO2 116 H Sodium Potassium Chloride 118.4 H Carbon Dioxide 16 L BUN Creatinine Glucose 123 H POC Glucose Calcium 7.7 L Phosphorus Magnesium 2.60 H Iron TIBC Ferritin Alkaline Phosphatase NT-Pro-B Natriuret Pep Total Protein Albumin Lipase Free T4 10/28/18 10/28/18 10/28/18 04:25 04:25 15:37 WBC 23.5 H RBC Hgb Hct MCV MCH MCHC RDW Plt Count Lymph % (Auto) [place] % (Auto) Lymph # [place] # Seg Neutrophils % Seg Neuts % (Manual) Lymphocytes % (Manual) Seg Neutrophils # Seg Neutrophils # Man Lymphocytes # (Manual) POC ABG pH POC ABG pCO2 POC ABG pO2 Sodium 147 H Potassium Chloride 116.9 H Carbon Dioxide 16 L BUN 23 H Creatinine Glucose POC Glucose 114 H Calcium 8.0 L Phosphorus Magnesium Iron TIBC Ferritin Alkaline Phosphatase NT-Pro-B Natriuret Pep Total Protein Albumin Lipase Free T4 10/28/18 10/28/18 10/28/18 20:33 22:07 23:31 WBC RBC Hgb Hct MCV MCH MCHC RDW Plt Count Lymph % (Auto) [place] % (Auto) Lymph # [place] # Seg Neutrophils % Seg Neuts % (Manual) Lymphocytes % (Manual) Seg Neutrophils # Seg Neutrophils # Man Lymphocytes # (Manual) POC ABG pH 7.202 L 7.235 L POC ABG pCO2 POC ABG pO2 71 L Sodium Potassium Chloride Carbon Dioxide BUN Creatinine Glucose POC Glucose 207 H Calcium Phosphorus Magnesium Iron TIBC Ferritin Alkaline Phosphatase NT-Pro-B Natriuret Pep Total Protein Albumin Lipase Free T4 10/29/18 10/29/18 10/29/18 04:30 04:30 05:26 WBC 21.1 H RBC Hgb Hct MCV MCH MCHC RDW Plt Count Lymph % (Auto) [place] % (Auto) Lymph # [place] # Seg Neutrophils % Seg Neuts % (Manual) 97.0 H Lymphocytes % (Manual) 3.0 L Seg Neutrophils # Seg Neutrophils # Man 20.5 H Lymphocytes # (Manual) 0.6 L POC ABG pH 7.305 L POC ABG pCO2 30.5 L POC ABG pO2 75 L Sodium 147 H Potassium 3.5 L Chloride 120.0 H Carbon Dioxide 17 L BUN 30 H Creatinine Glucose 246 H POC Glucose Calcium 7.9 L Phosphorus Magnesium Iron TIBC Ferritin Alkaline Phosphatase NT-Pro-B Natriuret Pep Total Protein Albumin Lipase Free T4 10/29/18 10/29/18 10/29/18 05:36 11:39 18:00 WBC RBC Hgb Hct MCV MCH MCHC RDW Plt Count Lymph % (Auto) [place] % (Auto) Lymph # [place] # Seg Neutrophils % Seg Neuts % (Manual) Lymphocytes % (Manual) Seg Neutrophils # Seg Neutrophils # Man Lymphocytes # (Manual) POC ABG pH POC ABG pCO2 POC ABG pO2 Sodium Potassium Chloride Carbon Dioxide BUN Creatinine Glucose POC Glucose 204 H 224 H 221 H Calcium Phosphorus Magnesium Iron TIBC Ferritin Alkaline Phosphatase NT-Pro-B Natriuret Pep Total Protein Albumin Lipase Free T4 10/29/18 10/30/18 10/30/18 23:17 05:00 05:00 WBC 21.4 H RBC Hgb Hct MCV MCH MCHC RDW Plt Count 134 L Lymph % (Auto) [place] % (Auto) Lymph # [place] # Seg Neutrophils % Seg Neuts % (Manual) 97.0 H Lymphocytes % (Manual) 3.0 L Seg Neutrophils # Seg Neutrophils # Man 20.8 H Lymphocytes # (Manual) 0.6 L POC ABG pH POC ABG pCO2 POC ABG pO2 Sodium 148 H Potassium 3.1 L Chloride 120.3 H Carbon Dioxide 18 L BUN 31 H Creatinine Glucose 205 H POC Glucose 181 H Calcium 8.0 L Phosphorus Magnesium Iron TIBC Ferritin Alkaline Phosphatase NT-Pro-B Natriuret Pep Total Protein Albumin Lipase Free T4 10/30/18 10/30/18 10/30/18 05:14 05:25 05:26 WBC RBC Hgb Hct MCV MCH MCHC RDW Plt Count Lymph % (Auto) [place] % (Auto) Lymph # [place] # Seg Neutrophils % Seg Neuts % (Manual) Lymphocytes % (Manual) Seg Neutrophils # Seg Neutrophils # Man Lymphocytes # (Manual) POC ABG pH 7.296 L 7.245 L POC ABG pCO2 31.1 L POC ABG pO2 54 L 59 L Sodium Potassium Chloride Carbon Dioxide BUN Creatinine Glucose POC Glucose 199 H Calcium Phosphorus Magnesium Iron TIBC Ferritin Alkaline Phosphatase NT-Pro-B Natriuret Pep Total Protein Albumin Lipase Free T4 10/30/18 10/30/18 10/31/18 13:23 18:25 00:22 WBC RBC Hgb Hct MCV MCH MCHC RDW Plt Count Lymph % (Auto) [place] % (Auto) Lymph # [place] # Seg Neutrophils % Seg Neuts % (Manual) Lymphocytes % (Manual) Seg Neutrophils # Seg Neutrophils # Man Lymphocytes # (Manual) POC ABG pH POC ABG pCO2 POC ABG pO2 Sodium Potassium Chloride Carbon Dioxide BUN Creatinine Glucose POC Glucose 146 H 158 H 162 H Calcium Phosphorus Magnesium Iron TIBC Ferritin Alkaline Phosphatase NT-Pro-B Natriuret Pep Total Protein Albumin Lipase Free T4 10/31/18 10/31/18 10/31/18 04:39 05:14 07:05 WBC RBC Hgb Hct MCV MCH MCHC RDW Plt Count Lymph % (Auto) [place] % (Auto) Lymph # [place] # Seg Neutrophils % Seg Neuts % (Manual) Lymphocytes % (Manual) Seg Neutrophils # Seg Neutrophils # Man Lymphocytes # (Manual) POC ABG pH 7.238 L POC ABG pCO2 POC ABG pO2 Sodium Potassium Chloride 115.8 H Carbon Dioxide 18 L BUN 39 H Creatinine 1.3 H Glucose 167 H POC Glucose 145 H Calcium 7.5 L Phosphorus 1.80 L Magnesium Iron TIBC Ferritin Alkaline Phosphatase NT-Pro-B Natriuret Pep Total Protein Albumin Lipase Free T4 10/31/18 10/31/18 10/31/18 10:43 12:03 17:00 WBC RBC Hgb Hct MCV MCH MCHC RDW Plt Count Lymph % (Auto) [place] % (Auto) Lymph # [place] # Seg Neutrophils % Seg Neuts % (Manual) Lymphocytes % (Manual) Seg Neutrophils # Seg Neutrophils # Man Lymphocytes # (Manual) POC ABG pH 7.304 L POC ABG pCO2 33.3 L POC ABG pO2 Sodium Potassium Chloride Carbon Dioxide BUN Creatinine Glucose POC Glucose 159 H Calcium Phosphorus Magnesium Iron TIBC Ferritin Alkaline Phosphatase NT-Pro-B Natriuret Pep Total Protein Albumin Lipase Free T4 0.49 L 10/31/18 11/01/18 11/01/18 17:00 00:44 05:27 WBC RBC Hgb Hct MCV MCH MCHC RDW Plt Count Lymph % (Auto) [place] % (Auto) Lymph # [place] # Seg Neutrophils % Seg Neuts % (Manual) Lymphocytes % (Manual) Seg Neutrophils # Seg Neutrophils # Man Lymphocytes # (Manual) POC ABG pH 7.248 L POC ABG pCO2 34.8 L POC ABG pO2 135 H Sodium Potassium Chloride Carbon Dioxide BUN Creatinine Glucose POC Glucose 127 H 118 H Calcium Phosphorus Magnesium Iron TIBC Ferritin Alkaline Phosphatase NT-Pro-B Natriuret Pep Total Protein Albumin Lipase Free T4 11/01/18 11/01/18 11/01/18 06:40 06:40 06:53 WBC 18.9 H RBC 3.63 L Hgb Hct MCV MCH MCHC RDW Plt Count 64 L Lymph % (Auto) [place] % (Auto) Lymph # [place] # Seg Neutrophils % Seg Neuts % (Manual) 98.0 H Lymphocytes % (Manual) 1.0 L Seg Neutrophils # Seg Neutrophils # Man 18.5 H Lymphocytes # (Manual) 0.2 L POC ABG pH POC ABG pCO2 POC ABG pO2 Sodium Potassium 3.5 L Chloride 114.2 H Carbon Dioxide 17 L BUN 49 H Creatinine Glucose 107 H POC Glucose 127 H Calcium 7.3 L Phosphorus Magnesium 1.60 L Iron TIBC Ferritin Alkaline Phosphatase NT-Pro-B Natriuret Pep Total Protein Albumin Lipase Free T4 11/01/18 11/01/18 11/01/18 11:49 13:13 17:24 WBC RBC Hgb Hct MCV MCH MCHC RDW Plt Count Lymph % (Auto) [place] % (Auto) Lymph # [place] # Seg Neutrophils % Seg Neuts % (Manual) Lymphocytes % (Manual) Seg Neutrophils # Seg Neutrophils # Man Lymphocytes # (Manual) POC ABG pH POC ABG pCO2 POC ABG pO2 182 H Sodium Potassium Chloride Carbon Dioxide BUN Creatinine Glucose POC Glucose 134 H 111 H Calcium Phosphorus Magnesium Iron TIBC Ferritin Alkaline Phosphatase NT-Pro-B Natriuret Pep Total Protein Albumin Lipase Free T4 11/01/18 11/02/18 11/02/18 23:07 04:32 05:00 WBC RBC Hgb Hct MCV MCH MCHC RDW Plt Count Lymph % (Auto) [place] % (Auto) Lymph # [place] # Seg Neutrophils % Seg Neuts % (Manual) Lymphocytes % (Manual) Seg Neutrophils # Seg Neutrophils # Man Lymphocytes # (Manual) POC ABG pH 7.244 L POC ABG pCO2 33.2 L POC ABG pO2 123 H Sodium Potassium 3.0 L Chloride 114.1 H Carbon Dioxide 15 L BUN 47 H Creatinine Glucose 127 H POC Glucose 123 H Calcium 7.7 L Phosphorus Magnesium Iron TIBC Ferritin Alkaline Phosphatase NT-Pro-B Natriuret Pep Total Protein Albumin Lipase Free T4 11/02/18 11/02/18 11/02/18 05:00 05:29 11:27 WBC RBC Hgb Hct MCV MCH MCHC RDW Plt Count Lymph % (Auto) [place] % (Auto) Lymph # [place] # Seg Neutrophils % Seg Neuts % (Manual) Lymphocytes % (Manual) Seg Neutrophils # Seg Neutrophils # Man Lymphocytes # (Manual) POC ABG pH POC ABG pCO2 POC ABG pO2 Sodium Potassium Chloride Carbon Dioxide BUN Creatinine Glucose POC Glucose 118 H 137 H Calcium Phosphorus Magnesium 1.60 L Iron TIBC Ferritin Alkaline Phosphatase NT-Pro-B Natriuret Pep Total Protein Albumin Lipase Free T4 11/02/18 11/02/18 11/03/18 12:53 23:35 04:14 WBC RBC Hgb Hct MCV MCH MCHC RDW Plt Count Lymph % (Auto) [place] % (Auto) Lymph # [place] # Seg Neutrophils % Seg Neuts % (Manual) Lymphocytes % (Manual) Seg Neutrophils # Seg Neutrophils # Man Lymphocytes # (Manual) POC ABG pH POC ABG pCO2 30.3 L POC ABG pO2 134 H 129 H Sodium Potassium Chloride Carbon Dioxide BUN Creatinine Glucose POC Glucose 115 H Calcium Phosphorus Magnesium Iron TIBC Ferritin Alkaline Phosphatase NT-Pro-B Natriuret Pep Total Protein Albumin Lipase Free T4 11/03/18 11/03/18 11/03/18 05:34 11:30 11:30 WBC 16.4 H RBC 3.50 L Hgb Hct MCV MCH MCHC RDW Plt Count 136 L D Lymph % (Auto) [place] % (Auto) Lymph # [place] # Seg Neutrophils % Seg Neuts % (Manual) 97.0 H Lymphocytes % (Manual) 2.0 L Seg Neutrophils # Seg Neutrophils # Man 15.9 H Lymphocytes # (Manual) 0.3 L POC ABG pH POC ABG pCO2 POC ABG pO2 Sodium Potassium 3.1 L Chloride 110.4 H Carbon Dioxide 17 L BUN 41 H Creatinine Glucose 129 H POC Glucose 116 H Calcium 7.7 L Phosphorus Magnesium 1.60 L Iron TIBC Ferritin Alkaline Phosphatase NT-Pro-B Natriuret Pep Total Protein 4.2 L Albumin 1.2 L Lipase Free T4 11/03/18 11/03/18 11/03/18 12:01 17:35 21:37 WBC RBC Hgb Hct MCV MCH MCHC RDW Plt Count Lymph % (Auto) [place] % (Auto) Lymph # [place] # Seg Neutrophils % Seg Neuts % (Manual) Lymphocytes % (Manual) Seg Neutrophils # Seg Neutrophils # Man Lymphocytes # (Manual) POC ABG pH POC ABG pCO2 POC ABG pO2 Sodium Potassium Chloride Carbon Dioxide BUN Creatinine Glucose POC Glucose 132 H 132 H 126 H Calcium Phosphorus Magnesium Iron TIBC Ferritin Alkaline Phosphatase NT-Pro-B Natriuret Pep Total Protein Albumin Lipase Free T4 11/03/18 11/04/18 11/04/18 23:30 05:14 05:15 WBC RBC Hgb Hct MCV MCH MCHC RDW Plt Count Lymph % (Auto) [place] % (Auto) Lymph # [place] # Seg Neutrophils % Seg Neuts % (Manual) Lymphocytes % (Manual) Seg Neutrophils # Seg Neutrophils # Man Lymphocytes # (Manual) POC ABG pH POC ABG pCO2 30.9 L POC ABG pO2 192 H Sodium Potassium Chloride Carbon Dioxide BUN Creatinine Glucose POC Glucose 115 H 123 H Calcium Phosphorus Magnesium Iron TIBC Ferritin Alkaline Phosphatase NT-Pro-B Natriuret Pep Total Protein Albumin Lipase Free T4 11/04/18 11/04/18 11/04/18 09:39 09:39 11:43 WBC 15.2 H RBC 3.18 L Hgb Hct 29.9 L MCV MCH MCHC RDW Plt Count Lymph % (Auto) [place] % (Auto) Lymph # [place] # Seg Neutrophils % Seg Neuts % (Manual) 98.0 H Lymphocytes % (Manual) 1.0 L Seg Neutrophils # Seg Neutrophils # Man 14.9 H Lymphocytes # (Manual) 0.2 L POC ABG pH POC ABG pCO2 POC ABG pO2 Sodium 135 L D Potassium Chloride 109.5 H Carbon Dioxide 16 L BUN 46 H Creatinine Glucose 136 H POC Glucose 138 H Calcium 8.0 L Phosphorus Magnesium Iron TIBC Ferritin Alkaline Phosphatase NT-Pro-B Natriuret Pep Total Protein Albumin Lipase Free T4 11/04/18 11/04/18 11/05/18 17:31 23:42 05:23 WBC RBC Hgb Hct MCV MCH MCHC RDW Plt Count Lymph % (Auto) [place] % (Auto) Lymph # [place] # Seg Neutrophils % Seg Neuts % (Manual) Lymphocytes % (Manual) Seg Neutrophils # Seg Neutrophils # Man Lymphocytes # (Manual) POC ABG pH POC ABG pCO2 POC ABG pO2 Sodium Potassium Chloride Carbon Dioxide BUN Creatinine Glucose POC Glucose 139 H 138 H 148 H Calcium Phosphorus Magnesium Iron TIBC Ferritin Alkaline Phosphatase NT-Pro-B Natriuret Pep Total Protein Albumin Lipase Free T4 11/05/18 11/05/18 11/05/18 05:30 05:30 11:46 WBC 14.2 H RBC 3.12 L Hgb 10.0 L Hct 29.1 L MCV MCH MCHC RDW Plt Count Lymph % (Auto) [place] % (Auto) Lymph # [place] # Seg Neutrophils % Seg Neuts % (Manual) Lymphocytes % (Manual) Seg Neutrophils # Seg Neutrophils # Man Lymphocytes # (Manual) POC ABG pH POC ABG pCO2 POC ABG pO2 Sodium Potassium Chloride Carbon Dioxide 21 L BUN 42 H Creatinine Glucose 125 H POC Glucose 157 H Calcium 7.9 L Phosphorus Magnesium Iron TIBC Ferritin Alkaline Phosphatase NT-Pro-B Natriuret Pep Total Protein Albumin Lipase Free T4 11/05/18 11/05/18 11/05/18 17:09 20:03 23:43 WBC RBC Hgb Hct MCV MCH MCHC RDW Plt Count Lymph % (Auto) [place] % (Auto) Lymph # [place] # Seg Neutrophils % Seg Neuts % (Manual) Lymphocytes % (Manual) Seg Neutrophils # Seg Neutrophils # Man Lymphocytes # (Manual) POC ABG pH POC ABG pCO2 POC ABG pO2 76 L Sodium Potassium Chloride Carbon Dioxide BUN Creatinine Glucose POC Glucose 142 H 204 H Calcium Phosphorus Magnesium Iron TIBC Ferritin Alkaline Phosphatase NT-Pro-B Natriuret Pep Total Protein Albumin Lipase Free T4 11/06/18 11/06/18 11/06/18 04:21 12:14 17:17 WBC RBC Hgb Hct MCV MCH MCHC RDW Plt Count Lymph % (Auto) [place] % (Auto) Lymph # [place] # Seg Neutrophils % Seg Neuts % (Manual) Lymphocytes % (Manual) Seg Neutrophils # Seg Neutrophils # Man Lymphocytes # (Manual) POC ABG pH POC ABG pCO2 POC ABG pO2 Sodium 133 L Potassium Chloride Carbon Dioxide 18 L BUN 47 H Creatinine Glucose 187 H POC Glucose 232 H 199 H Calcium 7.8 L Phosphorus 5.30 H D Magnesium 2.50 H Iron TIBC Ferritin Alkaline Phosphatase NT-Pro-B Natriuret Pep Total Protein Albumin Lipase Free T4 11/06/18 11/06/18 11/07/18 19:46 23:30 00:00 WBC RBC Hgb Hct MCV MCH MCHC RDW Plt Count Lymph % (Auto) [place] % (Auto) Lymph # [place] # Seg Neutrophils % Seg Neuts % (Manual) Lymphocytes % (Manual) Seg Neutrophils # Seg Neutrophils # Man Lymphocytes # (Manual) POC ABG pH 7.317 L POC ABG pCO2 50.3 H POC ABG pO2 58 L 57 L Sodium Potassium Chloride Carbon Dioxide BUN Creatinine Glucose POC Glucose 224 H Calcium Phosphorus Magnesium Iron TIBC Ferritin Alkaline Phosphatase NT-Pro-B Natriuret Pep Total Protein Albumin Lipase Free T4 11/07/18 11/07/18 11/07/18 04:55 04:55 04:55 WBC 25.2 H RBC 3.64 L Hgb Hct MCV MCH MCHC RDW Plt Count Lymph % (Auto) [place] % (Auto) Lymph # [place] # Seg Neutrophils % Seg Neuts % (Manual) Lymphocytes % (Manual) Seg Neutrophils # Seg Neutrophils # Man Lymphocytes # (Manual) POC ABG pH POC ABG pCO2 POC ABG pO2 Sodium Potassium Chloride Carbon Dioxide BUN 54 H Creatinine Glucose 270 H POC Glucose Calcium 7.9 L Phosphorus 5.00 H Magnesium Iron TIBC Ferritin Alkaline Phosphatase NT-Pro-B Natriuret Pep 4507 H Total Protein Albumin Lipase Free T4 11/07/18 11/07/18 11/07/18 05:46 08:08 11:52 WBC RBC Hgb Hct MCV MCH MCHC RDW Plt Count Lymph % (Auto) [place] % (Auto) Lymph # [place] # Seg Neutrophils % Seg Neuts % (Manual) Lymphocytes % (Manual) Seg Neutrophils # Seg Neutrophils # Man Lymphocytes # (Manual) POC ABG pH POC ABG pCO2 47.6 H POC ABG pO2 106 H Sodium Potassium Chloride Carbon Dioxide BUN Creatinine Glucose POC Glucose 266 H 323 H Calcium Phosphorus Magnesium Iron TIBC Ferritin Alkaline Phosphatase NT-Pro-B Natriuret Pep Total Protein Albumin Lipase Free T4 11/07/18 11/07/18 11/07/18 12:29 17:57 23:48 WBC RBC Hgb Hct MCV MCH MCHC RDW Plt Count Lymph % (Auto) [place] % (Auto) Lymph # [place] # Seg Neutrophils % Seg Neuts % (Manual) Lymphocytes % (Manual) Seg Neutrophils # Seg Neutrophils # Man Lymphocytes # (Manual) POC ABG pH POC ABG pCO2 POC ABG pO2 Sodium Potassium Chloride Carbon Dioxide BUN Creatinine Glucose POC Glucose 325 H 286 H 231 H Calcium Phosphorus Magnesium Iron TIBC Ferritin Alkaline Phosphatase NT-Pro-B Natriuret Pep Total Protein Albumin Lipase Free T4 11/08/18 11/08/18 11/08/18 03:58 05:05 05:05 WBC 18.4 H RBC 3.20 L Hgb 10.0 L Hct 29.7 L MCV MCH MCHC RDW Plt Count Lymph % (Auto) [place] % (Auto) Lymph # [place] # Seg Neutrophils % Seg Neuts % (Manual) Lymphocytes % (Manual) Seg Neutrophils # Seg Neutrophils # Man Lymphocytes # (Manual) POC ABG pH 7.524 H POC ABG pCO2 34.3 L POC ABG pO2 Sodium Potassium Chloride Carbon Dioxide BUN 61 H Creatinine Glucose 253 H POC Glucose Calcium 7.6 L Phosphorus Magnesium Iron TIBC Ferritin Alkaline Phosphatase NT-Pro-B Natriuret Pep Total Protein Albumin Lipase Free T4 11/08/18 11/08/18 11/08/18 05:28 11:28 18:21 WBC RBC Hgb Hct MCV MCH MCHC RDW Plt Count Lymph % (Auto) [place] % (Auto) Lymph # [place] # Seg Neutrophils % Seg Neuts % (Manual) Lymphocytes % (Manual) Seg Neutrophils # Seg Neutrophils # Man Lymphocytes # (Manual) POC ABG pH POC ABG pCO2 POC ABG pO2 Sodium Potassium Chloride Carbon Dioxide BUN Creatinine Glucose POC Glucose 295 H 253 H 225 H Calcium Phosphorus Magnesium Iron TIBC Ferritin Alkaline Phosphatase NT-Pro-B Natriuret Pep Total Protein Albumin Lipase Free T4 11/09/18 11/09/18 11/09/18 00:57 04:06 06:06 WBC RBC Hgb Hct MCV MCH MCHC RDW Plt Count Lymph % (Auto) [place] % (Auto) Lymph # [place] # Seg Neutrophils % Seg Neuts % (Manual) Lymphocytes % (Manual) Seg Neutrophils # Seg Neutrophils # Man Lymphocytes # (Manual) POC ABG pH 7.509 H POC ABG pCO2 POC ABG pO2 Sodium Potassium Chloride Carbon Dioxide BUN Creatinine Glucose POC Glucose 218 H 199 H Calcium Phosphorus Magnesium Iron TIBC Ferritin Alkaline Phosphatase NT-Pro-B Natriuret Pep Total Protein Albumin Lipase Free T4 11/09/18 11/09/18 11/09/18 06:51 06:51 12:07 WBC 13.5 H RBC 2.97 L Hgb 9.3 L Hct 27.6 L MCV MCH MCHC RDW Plt Count Lymph % (Auto) [place] % (Auto) Lymph # [place] # Seg Neutrophils % Seg Neuts % (Manual) Lymphocytes % (Manual) Seg Neutrophils # Seg Neutrophils # Man Lymphocytes # (Manual) POC ABG pH POC ABG pCO2 POC ABG pO2 Sodium Potassium Chloride 96.5 L Carbon Dioxide 32 H BUN 58 H Creatinine Glucose 191 H POC Glucose 212 H Calcium 7.5 L Phosphorus Magnesium Iron TIBC Ferritin Alkaline Phosphatase NT-Pro-B Natriuret Pep Total Protein Albumin Lipase Free T4 11/09/18 11/10/18 11/10/18 18:29 00:09 04:21 WBC RBC Hgb Hct MCV MCH MCHC RDW Plt Count Lymph % (Auto) [place] % (Auto) Lymph # [place] # Seg Neutrophils % Seg Neuts % (Manual) Lymphocytes % (Manual) Seg Neutrophils # Seg Neutrophils # Man Lymphocytes # (Manual) POC ABG pH 7.467 H POC ABG pCO2 49.9 H POC ABG pO2 76 L Sodium Potassium Chloride Carbon Dioxide BUN Creatinine Glucose POC Glucose 192 H 214 H Calcium Phosphorus Magnesium Iron TIBC Ferritin Alkaline Phosphatase NT-Pro-B Natriuret Pep Total Protein Albumin Lipase Free T4 11/10/18 11/10/18 11/10/18 04:39 04:39 06:05 WBC 14.3 H RBC 3.09 L Hgb 9.7 L Hct 28.9 L MCV MCH MCHC RDW Plt Count Lymph % (Auto) [place] % (Auto) Lymph # [place] # Seg Neutrophils % Seg Neuts % (Manual) Lymphocytes % (Manual) Seg Neutrophils # Seg Neutrophils # Man Lymphocytes # (Manual) POC ABG pH POC ABG pCO2 POC ABG pO2 Sodium Potassium Chloride 97.5 L Carbon Dioxide 31 H BUN 53 H Creatinine Glucose 196 H POC Glucose 202 H Calcium 7.7 L Phosphorus Magnesium Iron TIBC Ferritin Alkaline Phosphatase NT-Pro-B Natriuret Pep Total Protein Albumin Lipase Free T4 11/10/18 11/10/18 11/11/18 12:32 17:16 00:06 WBC RBC Hgb Hct MCV MCH MCHC RDW Plt Count Lymph % (Auto) [place] % (Auto) Lymph # [place] # Seg Neutrophils % Seg Neuts % (Manual) Lymphocytes % (Manual) Seg Neutrophils # Seg Neutrophils # Man Lymphocytes # (Manual) POC ABG pH POC ABG pCO2 POC ABG pO2 Sodium Potassium Chloride Carbon Dioxide BUN Creatinine Glucose POC Glucose 197 H 200 H 177 H Calcium Phosphorus Magnesium Iron TIBC Ferritin Alkaline Phosphatase NT-Pro-B Natriuret Pep Total Protein Albumin Lipase Free T4 11/11/18 11/11/18 11/11/18 04:43 05:24 05:50 WBC 14.1 H RBC 2.92 L Hgb 9.1 L Hct 27.0 L MCV MCH MCHC RDW Plt Count Lymph % (Auto) [place] % (Auto) Lymph # [place] # Seg Neutrophils % Seg Neuts % (Manual) Lymphocytes % (Manual) Seg Neutrophils # Seg Neutrophils # Man Lymphocytes # (Manual) POC ABG pH POC ABG pCO2 50.1 H POC ABG pO2 Sodium Potassium Chloride Carbon Dioxide BUN Creatinine Glucose POC Glucose 199 H Calcium Phosphorus Magnesium Iron TIBC Ferritin Alkaline Phosphatase NT-Pro-B Natriuret Pep Total Protein Albumin Lipase Free T4 11/11/18 11/11/18 11/11/18 05:50 12:00 17:57 WBC RBC Hgb Hct MCV MCH MCHC RDW Plt Count Lymph % (Auto) [place] % (Auto) Lymph # [place] # Seg Neutrophils % Seg Neuts % (Manual) Lymphocytes % (Manual) Seg Neutrophils # Seg Neutrophils # Man Lymphocytes # (Manual) POC ABG pH POC ABG pCO2 POC ABG pO2 Sodium Potassium 3.5 L Chloride Carbon Dioxide 34 H BUN 47 H Creatinine 0.5 L Glucose 169 H POC Glucose 168 H 194 H Calcium 8.2 L Phosphorus Magnesium Iron TIBC Ferritin Alkaline Phosphatase 142 H NT-Pro-B Natriuret Pep Total Protein 4.4 L Albumin 2.1 L Lipase Free T4 11/11/18 11/12/18 11/12/18 23:26 05:32 09:26 WBC RBC Hgb Hct MCV MCH MCHC RDW Plt Count Lymph % (Auto) [place] % (Auto) Lymph # [place] # Seg Neutrophils % Seg Neuts % (Manual) Lymphocytes % (Manual) Seg Neutrophils # Seg Neutrophils # Man Lymphocytes # (Manual) POC ABG pH POC ABG pCO2 POC ABG pO2 Sodium Potassium Chloride Carbon Dioxide BUN Creatinine Glucose POC Glucose 181 H 186 H 158 H Calcium Phosphorus Magnesium Iron TIBC Ferritin Alkaline Phosphatase NT-Pro-B Natriuret Pep Total Protein Albumin Lipase Free T4 11/12/18 11/12/18 11/12/18 11:42 17:39 23:25 WBC RBC Hgb Hct MCV MCH MCHC RDW Plt Count Lymph % (Auto) [place] % (Auto) Lymph # [place] # Seg Neutrophils % Seg Neuts % (Manual) Lymphocytes % (Manual) Seg Neutrophils # Seg Neutrophils # Man Lymphocytes # (Manual) POC ABG pH POC ABG pCO2 POC ABG pO2 Sodium Potassium Chloride Carbon Dioxide BUN Creatinine Glucose POC Glucose 141 H 183 H 147 H Calcium Phosphorus Magnesium Iron TIBC Ferritin Alkaline Phosphatase NT-Pro-B Natriuret Pep Total Protein Albumin Lipase Free T4 11/13/18 11/13/18 11/13/18 12:16 18:10 21:21 WBC RBC Hgb Hct MCV MCH MCHC RDW Plt Count Lymph % (Auto) [place] % (Auto) Lymph # [place] # Seg Neutrophils % Seg Neuts % (Manual) Lymphocytes % (Manual) Seg Neutrophils # Seg Neutrophils # Man Lymphocytes # (Manual) POC ABG pH POC ABG pCO2 POC ABG pO2 Sodium Potassium Chloride Carbon Dioxide BUN Creatinine Glucose POC Glucose 114 H 127 H 185 H Calcium Phosphorus Magnesium Iron TIBC Ferritin Alkaline Phosphatase NT-Pro-B Natriuret Pep Total Protein Albumin Lipase Free T4 11/13/18 11/14/18 11/14/18 23:11 03:28 03:28 WBC RBC Hgb Hct MCV MCH MCHC RDW Plt Count Lymph % (Auto) [place] % (Auto) Lymph # [place] # Seg Neutrophils % Seg Neuts % (Manual) Lymphocytes % (Manual) Seg Neutrophils # Seg Neutrophils # Man Lymphocytes # (Manual) POC ABG pH POC ABG pCO2 POC ABG pO2 Sodium Potassium Chloride Carbon Dioxide BUN Creatinine Glucose POC Glucose 184 H Calcium Phosphorus Magnesium Iron 31 L TIBC 173 L Ferritin 510.3 H Alkaline Phosphatase NT-Pro-B Natriuret Pep Total Protein Albumin Lipase Free T4 11/14/18 11/14/18 11/14/18 05:12 07:59 10:05 WBC 19.8 H RBC 2.67 L Hgb 8.4 L Hct 25.2 L MCV MCH MCHC RDW Plt Count Lymph % (Auto) [place] % (Auto) Lymph # [place] # Seg Neutrophils % Seg Neuts % (Manual) 96.0 H Lymphocytes % (Manual) 0 L Seg Neutrophils # Seg Neutrophils # Man 19.0 H Lymphocytes # (Manual) 0.0 L POC ABG pH 7.470 H POC ABG pCO2 POC ABG pO2 Sodium Potassium Chloride Carbon Dioxide BUN Creatinine Glucose POC Glucose 178 H Calcium Phosphorus Magnesium Iron TIBC Ferritin Alkaline Phosphatase NT-Pro-B Natriuret Pep Total Protein Albumin Lipase Free T4 11/14/18 11/14/18 11/14/18 11:40 18:03 23:15 WBC RBC Hgb Hct MCV MCH MCHC RDW Plt Count Lymph % (Auto) [place] % (Auto) Lymph # [place] # Seg Neutrophils % Seg Neuts % (Manual) Lymphocytes % (Manual) Seg Neutrophils # Seg Neutrophils # Man Lymphocytes # (Manual) POC ABG pH POC ABG pCO2 POC ABG pO2 Sodium Potassium Chloride Carbon Dioxide BUN Creatinine Glucose POC Glucose 168 H 221 H 223 H Calcium Phosphorus Magnesium Iron TIBC Ferritin Alkaline Phosphatase NT-Pro-B Natriuret Pep Total Protein Albumin Lipase Free T4 11/15/18 11/15/18 11/15/18 05:29 11:33 12:13 WBC RBC Hgb Hct MCV MCH MCHC RDW Plt Count Lymph % (Auto) [place] % (Auto) Lymph # [place] # Seg Neutrophils % Seg Neuts % (Manual) Lymphocytes % (Manual) Seg Neutrophils # Seg Neutrophils # Man Lymphocytes # (Manual) POC ABG pH POC ABG pCO2 46.1 H POC ABG pO2 107 H Sodium Potassium Chloride Carbon Dioxide BUN Creatinine Glucose POC Glucose 210 H 199 H Calcium Phosphorus Magnesium Iron TIBC Ferritin Alkaline Phosphatase NT-Pro-B Natriuret Pep Total Protein Albumin Lipase Free T4 11/15/18 11/15/18 11/15/18 14:32 17:45 23:29 WBC RBC Hgb Hct MCV MCH MCHC RDW Plt Count Lymph % (Auto) [place] % (Auto) Lymph # [place] # Seg Neutrophils % Seg Neuts % (Manual) Lymphocytes % (Manual) Seg Neutrophils # Seg Neutrophils # Man Lymphocytes # (Manual) POC ABG pH POC ABG pCO2 POC ABG pO2 Sodium 149 H Potassium 3.1 L Chloride 109.2 H Carbon Dioxide BUN 36 H Creatinine 0.5 L Glucose 164 H POC Glucose 154 H 163 H Calcium 7.5 L Phosphorus Magnesium Iron TIBC Ferritin Alkaline Phosphatase NT-Pro-B Natriuret Pep Total Protein Albumin Lipase Free T4 11/16/18 11/16/18 11/16/18 05:54 12:05 12:57 WBC RBC Hgb Hct MCV MCH MCHC RDW Plt Count Lymph % (Auto) [place] % (Auto) Lymph # [place] # Seg Neutrophils % Seg Neuts % (Manual) Lymphocytes % (Manual) Seg Neutrophils # Seg Neutrophils # Man Lymphocytes # (Manual) POC ABG pH POC ABG pCO2 POC ABG pO2 Sodium 150 H Potassium 3.0 L Chloride 109.0 H Carbon Dioxide BUN 41 H Creatinine 0.5 L Glucose 158 H POC Glucose 168 H 176 H Calcium 7.6 L Phosphorus Magnesium Iron TIBC Ferritin Alkaline Phosphatase NT-Pro-B Natriuret Pep Total Protein Albumin Lipase Free T4 11/16/18 11/16/18 11/17/18 16:49 23:22 04:25 WBC 16.2 H RBC 2.72 L Hgb 8.7 L Hct 25.9 L MCV MCH MCHC RDW 15.6 H Plt Count Lymph % (Auto) [place] % (Auto) Lymph # [place] # Seg Neutrophils % Seg Neuts % (Manual) 97.0 H Lymphocytes % (Manual) 1.0 L Seg Neutrophils # Seg Neutrophils # Man 15.7 H Lymphocytes # (Manual) 0.2 L POC ABG pH POC ABG pCO2 POC ABG pO2 Sodium Potassium Chloride Carbon Dioxide BUN Creatinine Glucose POC Glucose 163 H 230 H Calcium Phosphorus Magnesium Iron TIBC Ferritin Alkaline Phosphatase NT-Pro-B Natriuret Pep Total Protein Albumin Lipase Free T4 11/17/18 11/17/18 11/17/18 04:25 05:56 12:39 WBC RBC Hgb Hct MCV MCH MCHC RDW Plt Count Lymph % (Auto) [place] % (Auto) Lymph # [place] # Seg Neutrophils % Seg Neuts % (Manual) Lymphocytes % (Manual) Seg Neutrophils # Seg Neutrophils # Man Lymphocytes # (Manual) POC ABG pH POC ABG pCO2 POC ABG pO2 Sodium 152 H Potassium 3.4 L Chloride 109.9 H Carbon Dioxide 32 H BUN 40 H Creatinine 0.5 L Glucose 155 H POC Glucose 173 H 193 H Calcium 7.9 L Phosphorus Magnesium Iron TIBC Ferritin Alkaline Phosphatase NT-Pro-B Natriuret Pep Total Protein Albumin Lipase Free T4 11/17/18 11/17/18 11/18/18 17:08 23:06 04:26 WBC 18.3 H RBC 2.52 L Hgb 8.0 L Hct 24.5 L MCV MCH MCHC RDW 16.0 H Plt Count Lymph % (Auto) [place] % (Auto) Lymph # [place] # Seg Neutrophils % Seg Neuts % (Manual) 96.0 H Lymphocytes % (Manual) 0 L Seg Neutrophils # Seg Neutrophils # Man 17.6 H Lymphocytes # (Manual) 0.0 L POC ABG pH POC ABG pCO2 POC ABG pO2 Sodium Potassium Chloride Carbon Dioxide BUN Creatinine Glucose POC Glucose 203 H 167 H Calcium Phosphorus Magnesium Iron TIBC Ferritin Alkaline Phosphatase NT-Pro-B Natriuret Pep Total Protein Albumin Lipase Free T4 11/18/18 11/18/18 11/18/18 04:26 05:29 13:52 WBC RBC Hgb Hct MCV MCH MCHC RDW Plt Count Lymph % (Auto) [place] % (Auto) Lymph # [place] # Seg Neutrophils % Seg Neuts % (Manual) Lymphocytes % (Manual) Seg Neutrophils # Seg Neutrophils # Man Lymphocytes # (Manual) POC ABG pH POC ABG pCO2 POC ABG pO2 Sodium 149 H Potassium Chloride 110.5 H Carbon Dioxide BUN 41 H Creatinine 0.4 L Glucose 127 H POC Glucose 128 H 109 H Calcium 7.9 L Phosphorus Magnesium Iron TIBC Ferritin Alkaline Phosphatase NT-Pro-B Natriuret Pep Total Protein Albumin Lipase Free T4 11/18/18 11/18/18 11/19/18 18:05 23:33 05:34 WBC RBC Hgb Hct MCV MCH MCHC RDW Plt Count Lymph % (Auto) [place] % (Auto) Lymph # [place] # Seg Neutrophils % Seg Neuts % (Manual) Lymphocytes % (Manual) Seg Neutrophils # Seg Neutrophils # Man Lymphocytes # (Manual) POC ABG pH POC ABG pCO2 POC ABG pO2 Sodium Potassium Chloride Carbon Dioxide BUN Creatinine Glucose POC Glucose 174 H 178 H 116 H Calcium Phosphorus Magnesium Iron TIBC Ferritin Alkaline Phosphatase NT-Pro-B Natriuret Pep Total Protein Albumin Lipase Free T4 11/19/18 11/19/18 08:35 08:35 WBC 22.3 H RBC 2.80 L Hgb 8.9 L Hct 26.7 L MCV MCH MCHC RDW 16.5 H Plt Count Lymph % (Auto) [place] % (Auto) Lymph # [place] # Seg Neutrophils % Seg Neuts % (Manual) Lymphocytes % (Manual) Seg Neutrophils # Seg Neutrophils # Man Lymphocytes # (Manual) POC ABG pH POC ABG pCO2 POC ABG pO2 Sodium 147 H Potassium Chloride 107.2 H Carbon Dioxide BUN 35 H Creatinine 0.3 L Glucose 117 H POC Glucose Calcium 7.9 L Phosphorus Magnesium Iron TIBC Ferritin Alkaline Phosphatase NT-Pro-B Natriuret Pep Total Protein Albumin Lipase Free T4 Allied health notes reviewed: nursing
--- NOTE | 2018-11-19 13:55 | Progress Note ---
Assessment and Plan Cultures: Blood cultures 10/22/2018 no growth Tracheal asp cultures 10/28/2018: E.coli and Stenotrophomonas. 10/30/2018 blood culture: Ayla glabrata 11/03/2018 fungal blood culture: no growth thus far 11/18/2018 Sputum GNRs Assessment: 73 y/o female with history of COPD, hypertension, lupus, fibromyalgia, opioid dependence admitted on 10/22/2018 due to 3-day history of intractable nausea, vomiting, diarrhea: 1) SIRS v/s sepsis: fever resolved. Noted leukocytosis 19-->16 -->18-->22K on iv steroids. ? pneumonia however repeat CXR no consolidation. ? C diff colitis. Etiology initially most likely aspiration pneumonia +/- intra-abdominal source from contained gastric perforation, then with Candidemia. 2) Candidemia due to Ayla glabrata: in the setting of TPN and PICC line. PICC removed. Has temporary central line. TTE not optimal quality, but repeat fungal blood cultures are negative, so no need for LAUREN. S/p micafungin/fluconazole 14 days course. 3) Acute respiratory failure: pneumonia and fluid overload. Extubated 11/05/2018 and now reintubated 11/07/2018. Planned for trach. 4) Presumed aspiration pneumonia v/s HAP: Tracheal asp cultures 10/28/2018 with E.coli and Stenotrophomonas. Stenotrophomonas is a known colonizer in patients with structural lung disease or tracheostomy tubes/ET tubes, not generally considered very virulent. Given her prolonged and complicated hospital stay, completed a 10 day course of abx. Repeat sputum cx + GNR but repeat CXR ne gative. 5) Contained gastric perforation: Gen Surgery following. Planned for conservative management. Follow up CT showed no contrast leak. Now on tube feeds. 6) ADWOA: improved. 7) Diarrhea: ? tfeeds not better Recommendations: - get CT abdomen to eval for colitis I doubt however still dirrhea and increasing leukocytosis despite IV steroids tapered down - monitor diarrhea will follow Ame Garcia MD Infectious Diseases Weaving Inspector [facility], [place], [facility] ([facility]) M [phone] O [phone] Subjective Date of service: 11/19/18 Principal diagnosis: anemia Interval history: Remains on vent via trach, alert, follows commands, no fever. +diarrhea +tachycardic on monitor ROS unable to obtain Objective - Exam Narrative Exam: General appearance: alert follows commands crying, upset Eyes: anicteric sclerae, moist conjunctivae; no lid-lag; PERRLA HENT: Atraumatic; oropharynx limited Neck: Trach no secretion Lungs: distant BS CV: tachycardic Abdomen: Soft, non-tender Extremities: no edema, cyanosis Skin: Normal temperature, turgor and texture; no rash, ulcers or subcutaneous nodules Psych: no agitated Neuro:alert Rectal tube w diarrhea - Constitutional Vitals: Vital Signs Temp Pulse Resp BP Pulse Ox 98.8 F 81 19 95/44 96 11/19/18 12:00 11/19/18 13:00 11/19/18 13:00 11/19/18 13:00 11/19/18 13:00 Temperature -Last 24 Hours Temperature 98.8 F Temperature 98.8 F Temperature 98.8 F Temperature 98.7 F Temperature 98.3 F Temperature 98.7 F - Labs CBC & Chem 7: 11/19/18 08:35 11/19/18 08:35 Labs: Abnormal lab results 11/18/18 11/18/18 11/19/18 Range/Units 18:05 23:33 05:34 WBC (4.5-11.0) K/mm3 RBC (3.65-5.03) M/mm3 Hgb (10.1-14.3) gm/dl Hct (30.3-42.9) % RDW (13.2-15.2) % Sodium (137-145) mmol/L Chloride (98-107) mmol/L BUN (7-17) mg/dL Creatinine (0.7-1.2) mg/dL Glucose (65-100) mg/dL POC Glucose 174 H 178 H 116 H (70-105) Calcium (8.4-10.2) mg/dL 11/19/18 11/19/18 11/19/18 Range/Units 08:35 08:35 11:31 WBC 22.3 H (4.5-11.0) K/mm3 RBC 2.80 L (3.65-5.03) M/mm3 Hgb 8.9 L (10.1-14.3) gm/dl Hct 26.7 L (30.3-42.9) % RDW 16.5 H (13.2-15.2) % Sodium 147 H (137-145) mmol/L Chloride 107.2 H (98-107) mmol/L BUN 35 H (7-17) mg/dL Creatinine 0.3 L (0.7-1.2) mg/dL Glucose 117 H (65-100) mg/dL POC Glucose 161 H (70-105) Calcium 7.9 L (8.4-10.2) mg/dL
[2018-11-19] MEDS: SODIUM CHLORIDE FLUSH SYRINGE 10 ML IV SCH ×3 (20:31→22:15)
[2018-11-19] MEDS: LOVENOX SUB-Q SCH (21:37)
[2018-11-20] MEDS: DILAUDID IV PRN ×4 (01:23→20:05)
[2018-11-20 05:22] LABS: Hematocrit 24.2 % (30.3-42.9); Mean Corpuscular HGB Conc 33 % (30-34); Mean Corpuscular Volume 97 fl (79-97); Platelet Count 309 K/mm3 (140-440); Red Cell Distribution Width 16.9 % (13.2-15.2)
[2018-11-20 05:36] LABS: BUN/Creatinine Ratio 117; Blood Urea Nitrogen 35 mg/dL (7-17); Calcium 7.9 mg/dL (8.4-10.2); Hemolysis Index 11
[2018-11-20] MEDS: HumaLOG SUB-Q SCH ×3 (05:47→05:49)
[2018-11-20] MEDS: NEURONTIN PO SCH ×2 (05:48→23:15)
[2018-11-20] MEDS: SOLU-Medrol IV SCH ×2 (05:51→22:18)
--- NOTE | 2018-11-20 07:31 | Hem/Onc Progress Note ---
Assessment and Plan 1. h/o Thrombocytopenia, likely medication, pts medical status related. better 2. History of colon surgery in the past, details not clear. 3. History of bowel issues. Seen by surgical team. - pSBO and contained gastric perforation 4. h/o TPN. 5. h/o Ayla, ID following. 6. Chronic obstructive pulmonary disease. 7. Hypertension. 8. History of lupus. 9. Aspiration pneumonia. 10. The patient was on ventilation. 11. Renal impairment. 11/20 pt on vent - trach - pulm following anemia - h/o b12 inj at home - monthly - s/p same IV iron - Patient Problems (1) Thrombocytopenia Current Visit: Yes Status: Acute Subjective Date of service: 11/20/18 Principal diagnosis: anemia Interval history: traach - vent Objective - Constitutional Vitals: Last Vital Signs Temp 98.7 F 11/20/18 03:33 Pulse 88 11/20/18 05:30 Resp 20 11/20/18 05:30 BP 96/45 11/20/18 05:30 Pulse Ox 100 11/20/18 05:30 Pain Intensity (0-10): denies any pain General appearance: mild distress (on o2 - trach) Performance status: 4-completely disabled - EENT Eyes: EOM intact ENT: hearing intact Lymph node exam: negative cervical - Neck Neck: normal ROM - Respiratory Respiratory effort: Positive: other (slight SOB) Respiratory: bilateral: diminished (effort) - Cardiovascular Heart Sounds: Present: S1 & S2 Extremities: normal temperature - Gastrointestinal General gastrointestinal: Present: soft Rectal Exam: deferred - Genitourinary Female genitourinary: Present: deferred - Integumentary Integumentary: warm - Musculoskeletal Musculoskeletal: generalized weakness - Neurologic Neurologic: moves all extremities - Labs Lab Results: Laboratory Results - last 24 hr 11/19/18 11/19/18 11/19/18 08:35 08:35 11:31 WBC 22.3 H RBC 2.80 L Hgb 8.9 L Hct 26.7 L MCV 95 MCH 32 MCHC 34 RDW 16.5 H Plt Count 398 Sodium 147 H Potassium 4.2 Chloride 107.2 H Carbon Dioxide 30 Anion Gap 14 BUN 35 H Creatinine 0.3 L Estimated GFR > 60 BUN/Creatinine Ratio 117 Glucose 117 H POC Glucose 161 H Calcium 7.9 L 11/19/18 11/20/1819 23:43 04:19 04:19 WBC 13.7 H RBC 2.50 L Hgb 8.0 L Hct 24.2 L MCV 97 MCH 32 MCHC 33 RDW 16.9 H Plt Count 309 Sodium 145 Potassium 4.4 Chloride 106.8 Carbon Dioxide 29 Anion Gap 14 BUN 35 H Creatinine 0.3 L Estimated GFR > 60 BUN/Creatinine Ratio 117 Glucose 178 H POC Glucose 243 H Calcium 7.9 L 11/20/18 05:38 WBC RBC Hgb Hct MCV MCH MCHC RDW Plt Count Sodium Potassium Chloride Carbon Dioxide Anion Gap BUN Creatinine Estimated GFR BUN/Creatinine Ratio Glucose POC Glucose 202 H Calcium Medications & Allergies - Medications Allergies/Adverse Reactions: Allergies Sulfa (Sulfonamide Antibiotics) Allergy (Intermediate, Verified 10/22/18 16:30) Rash metoclopramide HCl [From Reglan] Allergy (Verified 10/22/18 16:30) Dizziness prochlorperazine [From Compazine] Allergy (Verified 10/22/18 16:30) NECK STIFFNESS Home Medications: Home Medications Medication Instructions Recorded Confirmed Last Taken Type Ondansetron 4 mg PO Q6HR PRN 12/05/16 10/22/18 10/29/17 History Propranolol HCl [Propranolol HCl 60 mg PO DAILY 12/05/16 10/22/18 10/30/17 22:00 History ER] QUEtiapine [SEROquel] 300 mg PO DAILY 12/05/16 10/22/18 10/30/17 History Lasix TAB 40 mg PO PRN PRN 12/07/16 10/22/18 10/24/17 History Percocet 10/325 mg 1 tab PO PRN PRN 12/07/16 10/22/18 10/30/17 History Albuterol Sulfate [Albuterol 0.63% 0.63 mg IH TID PRN 10/22/17 10/22/18 10/29/17 History NEBS] Active Medications: Generic Name Dose Route Start Last Admin Trade Name Freq PRN Reason Stop Dose Admin Acetaminophen 650 mg 10/22/18 20:10 11/17/18 20:17 Tylenol PO 650 mg Q4H PRN Administration Pain MILD(1-3)/Fever >100.5/PORTER Albuterol 2.5 mg 10/22/18 20:14 11/05/18 16:35 Proventil IH 2.5 mg Q4HRT PRN Administration Shortness Of Breath Lipase/Protease/Amylase 1 each 11/05/18 10:13 Gwendolyn Simpson 10,500 Unit FEEDTUBE PRN PRN For Clogged Feeding Tube Arformoterol Tartrate 15 mcg 11/05/18 20:00 11/19/18 19:30 Brovana Nebu IH 15 mcg Q12HRT RICK Administration Budesonide 0.5 mg 10/23/18 08:00 11/19/18 19:30 Pulmicort IH 0.5 mg Q12HRT RICK Administration Clonazepam 1 mg 11/18/18 11:00 11/19/18 20:32 Klonopin PO 1 mg TID RICK Administration Dextrose 50 ml 10/26/18 23:40 10/27/18 00:20 D50w (25gm) Syringe IV 50 ml PRN PRN Administration Hypoglycemia Enoxaparin Sodium 40 mg 11/14/18 22:00 11/19/18 21:37 Lovenox SUB-Q 40 mg QDAY@2200 RICK Administration Fentanyl 50 mcg 11/18/18 11:00 11/18/18 11:00 Duragesic TD 50 mcg Q3D RICK Administration Gabapentin 600 mg 11/12/18 10:00 11/20/18 05:48 Neurontin PO 600 mg Q8HR RICK Administration Hydralazine HCl 10 mg 10/22/18 21:41 11/07/18 00:04 Apresoline IV 10 mg Q4HR PRN Administration Blood Pressure Hydromorphone HCl 1 mg 11/12/18 09:55 11/20/18 04:41 Dilaudid IV 1 mg Q4H PRN Administration Pain , Severe (7-10) Hydrophilic Ointment 1 applic 11/07/18 09:14 Vaseline Lip Therapy TP Q2HR PRN Dry Lips Ferric Sodium Gluconate 110 mls @ 100 mls/hr 11/20/18 07:30 Complex 125 mg/ Sodium IV 11/20/18 08:35 Chloride ONCE ONE Insulin Human Isoph/Insulin Regular 12 unit 11/10/18 22:00 11/19/18 22:00 Humulin 70/30 SUB-Q 12 unit BID RICK Administration Insulin Human Lispro 0 unit 10/29/18 12:00 11/20/18 05:49 Humalog SUB-Q 2 unit Q6HR RICK Administration Protocol Lansoprazole 30 mg 11/17/18 10:00 11/19/18 09:47 Prevacid Solutab FEEDTUBE 30 mg QDAY RICK Administration Lorazepam 0.5 mg 11/18/18 11:00 11/19/18 09:31 Ativan IV 0.5 mg Q6H PRN Administration Anxiety Methylprednisolone Sodium Succinate 20 mg 11/17/18 14:00 11/20/18 05:51 Solu-Medrol IV 20 mg Q8HR RICK Administration Multi-Ingred Cream/Lotion/Oil/Oint 1 applic 11/07/18 09:14 Artificial Tears Ophth Oint OU Q4HR PRN Dry Eye(s) Ondansetron HCl 4 mg 10/24/18 10:05 10/25/18 17:26 Zofran IV 4 mg Q6H PRN Administration Nausea And Vomiting Phenol 1 spray 10/28/18 10:16 Chloraseptic MM PRN PRN Sore Throat Promethazine HCl 25 mg 10/22/18 20:10 10/22/18 21:21 Phenergan [place] 25 mg Q6H PRN Administration Nausea And Vomiting Propranolol HCl 20 mg 11/18/18 14:00 11/19/18 20:33 Inderal PO 20 mg TID RICK Administration Quetiapine Fumarate 300 mg 11/12/18 10:00 11/19/18 09:47 Seroquel PO 300 mg DAILY RICK Administration Simple Syrup 15 ml 11/05/18 10:13 Simple Syrup FEEDTUBE PRN PRN Hypoglycemia Simple Syrup 30 ml 11/05/18 10:13 Simple Syrup FEEDTUBE PRN PRN Hypoglycemia Sodium Bicarbonate 325 mg 11/05/18 10:13 Sodium Bicarbonate FEEDTUBE PRN PRN For Clogged Feeding Tube Sodium Chloride 10 ml 10/22/18 22:00 11/19/18 22:15 Sodium Chloride Flush Syringe 10 Ml IV 10 ml BID RICK Administration Sodium Chloride 10 ml 10/22/18 20:10 11/09/18 14:29 Sodium Chloride Flush Syringe 10 Ml IV 10 ml PRN PRN Administration LINE FLUSH
[2018-11-20] MEDS: PULMICORT IH SCH ×2 (07:46→19:41)
[2018-11-20] MEDS: BROVANA NEBU IH SCH ×2 (07:46→19:41)
[2018-11-20] MEDS: INDERAL PO SCH ×3 (08:25→20:00)
[2018-11-20] MEDS ORDERED: FERRLECIT 125 MG in NACL 0.9% 100 ML IV ONE (08:30)
--- NOTE | 2018-11-20 09:15 | Progress Note ---
Assessment and Plan Assessment and plan: Patient is 73-year-old female with history of hypertension, lupus, fibromyalgia, COPD, opioid dependence (follows Dr. Felix Muñiz at pain clinic) who presented to [facility] ED with complaints of intractable nausea, vomiting, diarrhea for 3 days. On initial presentation to the ED she was found to be tachycardiac with heart rate 113 BPM, leukocytosis with WBC 11.5, elevated BUN/Cr 51/2.1. Patient has history of COPD and at baseline does not require home oxygen use. She was admitted to [facility]. GI was consulted, she was evaluated. CT Abdomen revealed partial SBO versus ileus therefore surgeon consulted. Also patient became more short of breath, placed on BIPAP with no improvement then intubated 10/26/18 for acute resp failure and transferred to ICU. Obstruction series completed on 10/27 which showed improved but small bowel and stomach dilatation. Follow-up series on 10/28 showed no significant change since previous study. NG tube was removed due to patient not tolerating/refusing. Patient was placed back on BiPAP but decompensated on the night of 10/28/18 and had to be reintubated. Patient currently on mechanical ventilation. Patient has had further complications now with findings consistent with contained gastric perforation on repeat CT scan 10/30, managed conservatively. She was extubated 11/05, re-intubated 11/07/18. This is 3rd intubation so Tracheostomy was recommended and done 11/13/18. No PEG yet, for at least 2 weeks because of recent gastric perforation. Acute hypoxic respiratory failure. Patient was reintubated on 10/28/18 and currently on mechanical ventilation. Etiology secondary to COPD/pneumonia/sepsis. Extubated 11/05, re-intubated 11/07 Wean mechanical ventilation per pulmonary. Patient Initiated on T piece trial yesterday, monitor during the day. The patient tolerated 4 hours T piece yesterday. Continue to be stressed today and mechanical vent at nighttime. Gastric perforation. Repeat CT scan on 10/30 revealed pSBO resolved, no evidence for bowel ischemia. Small contained gastric perforation at lesser curve. No gross free air or contrast extravasation. Surgery recommends conservative management Sepsis/candidemia. Etiology initially most likely related to aspiration pneumonia and gastric perforation. Patient now with Ayla glabrata. PICC line removed. Repeat fungal cultures are negative. Complete a 14 day course of antifungals. Removed current central line and inserted midline. Thrombocytopenia. Etiology likely secondary to sepsis. Hematology following. Bilateral upper lobe/aspiration pneumonia. Sputum culture positive for Escherichia coli and stenotrophomonas. Bilateral pleural effusions. Acute exacerbation COPD. Scheduled Duo Nebs and Pulmicort; albuterol when necessary Presumed aspiration pneumonia versus healthcare associated pneumonia. Tracheal aspirate cultures from 10/28 with Escherichia coli and stenotrophomonas. Completed antibiotics. Hypokalemia. Replete potassium as needed. Hypertension. IV hydralazine when necessary Lupus. Supportive care Fibromyalgia. supportive care History of opioid dependence ADWOA due to vasomotor nephropathy, now resolved Full code status Plan is LTAC placement The high probability of a clinically significant, sudden or life threatening deterioration of the [GI and respiratory] system(s) required my full and direct attention, intervention and personal management. The aggregate critical care time was [33] minutes. This time is in addition to time spent performing reported procedures but includes the following: [x] Data Review and interpretation [x] Patient assessment and monitoring of vital signs [x] Documentation [x] Medication orders and management History Interval history: Patient had trach on 11/13 Still has diarrhea No abd pain currently anxious Hospitalist Physical - Physical exam Narrative exam: Gen: Not in distress, tracheostomy HEENT: Normocephalic, atraumatic, NG tube Neck: supple, no JVD Heart: S1 and S2 reg, no murmurs, rubs or gallop Lungs: Clear bilat, decreased breath sounds bilat. no wheeze Abd: soft, non tender, no rebound tenderness, non distended, BS present Ext: No edema, no clubbing, no cyanosis, Neuro: Awake,alert, follows commands - Constitutional Vitals: Temp Pulse Resp BP Pulse Ox 98.7 F 98 H 18 109/42 100 11/20/18 03:33 11/20/18 08:25 11/20/18 07:46 11/20/18 08:25 11/20/18 05:30 General appearance: Present: other (intubated, opens eyes to commands) Results - Labs CBC & Chem 7: 11/20/18 04:19 11/20/18 04:19 Labs: Laboratory Last Values WBC 13.7 K/mm3 (4.5-11.0) H 11/20/18 04:19 RBC 2.50 M/mm3 (3.65-5.03) L 11/20/18 04:19 Hgb 8.0 gm/dl (10.1-14.3) L 11/20/18 04:19 Hct 24.2 % (30.3-42.9) L 11/20/18 04:19 MCV 97 fl (79-97) 11/20/18 04:19 MCH 32 pg (28-32) 11/20/18 04:19 MCHC 33 % (30-34) 11/20/18 04:19 RDW 16.9 % (13.2-15.2) H 11/20/18 04:19 Plt Count 309 K/mm3 (140-440) 11/20/18 04:19 Lymph % (Auto) Plant Reliability Engineer 11/14/18 07:59 Saunders % (Auto) Plant Reliability Engineer 11/14/18 07:59 Eos % (Auto) Plant Reliability Engineer 11/14/18 07:59 Baso % (Auto) Plant Reliability Engineer 11/14/18 07:59 Lymph # Plant Reliability Engineer 11/14/18 07:59 Saunders # Plant Reliability Engineer 11/14/18 07:59 Eos # Plant Reliability Engineer 11/14/18 07:59 Baso # Plant Reliability Engineer 11/14/18 07:59 Add Manual Diff Complete 11/18/18 04:26 Total Counted 100 11/18/18 04:26 Seg Neutrophils % Plant Reliability Engineer 11/17/18 04:25 Seg Neuts % (Manual) 96.0 % (40.0-70.0) H 11/18/18 04:26 1.0 % 11/18/18 04:26 0 % (13.4-35.0) L 11/18/18 04:26 Reactive Lymphs % (Man) 0 % 11/18/18 04:26 3.0 % (0.0-7.3) 11/18/18 04:26 0 % (0.0-4.3) 11/18/18 04:26 0 % (0.0-1.8) 11/18/18 04:26 0 % 11/18/18 04:26 0 % 11/18/18 04:26 0 % 11/18/18 04:26 0 % 11/18/18 04:26 Nucleated RBC % Not Reportable 11/18/18 04:26 Seg Neutrophils # Plant Reliability Engineer 11/14/18 07:59 Seg Neutrophils # Man 17.6 K/mm3 (1.8-7.7) H 11/18/18 04:26 Band Neutrophils # 0.2 K/mm3 11/18/18 04:26 0.0 K/mm3 (1.2-5.4) L 11/18/18 04:26 Abs React Lymphs (Man) 0.0 K/mm3 11/18/18 04:26 0.5 K/mm3 (0.0-0.8) 11/18/18 04:26 0.0 K/mm3 (0.0-0.4) 11/18/18 04:26 0.0 K/mm3 (0.0-0.1) 11/18/18 04:26 0.0 K/mm3 11/18/18 04:26 0.0 K/mm3 11/18/18 04:26 0.0 K/mm3 11/18/18 04:26 Blast Cells # 0.0 K/mm3 11/18/18 04:26 WBC Morphology Not Reportable 11/18/18 04:26 WBC Morphology TNR 11/18/18 04:26 Hypersegmented Neuts Not Reportable 11/18/18 04:26 Hyposegmented Neuts Not Reportable 11/18/18 04:26 Hypogranular Neuts Not Reportable 11/18/18 04:26 Not Reportable 11/18/18 04:26 Not Reportable 11/18/18 04:26 Not Reportable 11/18/18 04:26 Not Reportable 11/18/18 04:26 Not Reportable 11/18/18 04:26 Not Reportable 11/18/18 04:26 Consistent w auto 11/18/18 04:26 Not Reportable 11/18/18 04:26 Plt Clumps, EDTA Not Reportable 11/18/18 04:26 Not Reportable 11/18/18 04:26 Not Reportable 11/18/18 04:26 Not Reportable 11/18/18 04:26 Plt Morphology Comment Not Reportable 11/18/18 04:26 RBC Morphology Not Reportable 11/18/18 04:26 Dimorphic RBCs Not Reportable 11/18/18 04:26 Not Reportable 11/18/18 04:26 Not Reportable 11/18/18 04:26 Not Reportable 11/18/18 04:26 Not Reportable 11/18/18 04:26 Not Reportable 11/18/18 04:26 Not Reportable 11/18/18 04:26 Not Reportable 11/18/18 04:26 Not Reportable 11/18/18 04:26 Not Reportable 11/18/18 04:26 Not Reportable 11/18/18 04:26 Not Reportable 11/18/18 04:26 Not Reportable 11/18/18 04:26 Few 11/17/18 04:25 Not Reportable 11/18/18 04:26 Not Reportable 11/18/18 04:26 Not Reportable 11/18/18 04:26 Not Reportable 11/18/18 04:26 Not Reportable 11/18/18 04:26 Not Reportable 11/18/18 04:26 Not Reportable 11/18/18 04:26 Acanthocytes (Spur) Not Reportable 11/18/18 04:26 Rouleaux Not Reportable 11/18/18 04:26 Not Reportable 11/18/18 04:26 Not Reportable 11/18/18 04:26 Not Reportable 11/18/18 04:26 Not Reportable 11/18/18 04:26 Hem Pathologist Commnt No 11/18/18 04:26 Heparin Anti-Xa, Unfract Negative (Negative) 10/30/18 13:58 POC ABG pH 7.446 (7.35-7.45) 11/15/18 11:33 POC ABG pCO2 46.1 (35-45) H 11/15/18 11:33 POC ABG pO2 107 (80-105) H 11/15/18 11:33 POC ABG HCO3 31.8 (22-26 mml/L) 11/15/18 11:33 POC ABG Total CO2 33 (23-27mmol/L) 11/15/18 11:33 POC ABG O2 Sat 98 11/15/18 11:33 POC ABG Base Excess 8 ((-2) - (+3)mmol/L) 11/15/18 11:33 30 % 11/15/18 11:33 Sodium 145 mmol/L (137-145) 11/20/18 04:19 Potassium 4.4 mmol/L (3.6-5.0) 11/20/18 04:19 Chloride 106.8 mmol/L (98-107) 11/20/18 04:19 Carbon Dioxide 29 mmol/L (22-30) 11/20/18 04:19 14 mmol/L 11/20/18 04:19 BUN 35 mg/dL (7-17) H 11/20/18 04:19 0.3 mg/dL (0.7-1.2) L 11/20/18 04:19 Estimated GFR > 60 ml/min 11/20/18 04:19 117 % 11/20/18 04:19 Glucose 178 mg/dL (65-100) H 11/20/18 04:19 POC Glucose 202 (70-105) H 11/20/18 05:38 Lactic Acid 1.60 mmol/L (0.7-2.0) 10/26/18 15:03 Calcium 7.9 mg/dL (8.4-10.2) L 11/20/18 04:19 Phosphorus 2.80 mg/dL (2.5-4.5) 11/11/18 05:50 Magnesium 1.80 mg/dL (1.7-2.3) 11/11/18 05:50 Iron 31 ug/dL (37-170) L 11/14/18 03:28 TIBC 173 mcg/dL (250-450) L 11/14/18 03:28 510.3 ng/mL (13.0-400.0) H 11/14/18 03:28 0.30 mg/dL (0.1-1.2) 11/11/18 05:50 AST 26 units/L (5-40) 11/11/18 05:50 ALT 28 units/L (7-56) 11/11/18 05:50 142 units/L (35-129) H 11/11/18 05:50 NT-Pro-B Natriuret Pep 4507 pg/mL (0-900) H 11/07/18 04:55 4.4 g/dL (6.3-8.2) L 11/11/18 05:50 2.1 g/dL (3.9-5) L 11/11/18 05:50 0.9 % 11/11/18 05:50 Triglycerides 132 mg/dL (2-149) 11/01/18 06:40 10 units/L (13-60) L 10/22/18 15:54 See scanned result 10/30/18 13:58 TSH 3.150 mlU/mL (0.270-4.200) 10/31/18 17:00 Free T4 0.49 ng/dL (0.76-1.46) L 10/31/18 17:00 Dulce (Yellow) 10/22/18 19:10 Clear (Clear) 10/22/18 19:10 5.0 (5.0-7.0) 10/22/18 19:10 Ur Specific [place] 1.018 (1.003-1.030) 10/22/18 19:10 30 mg/dl mg/dL (Negative) 10/22/18 19:10 Neg mg/dL (Negative) 10/22/18 19:10 Tr mg/dL (Negative) 10/22/18 19:10 Neg (Negative) 10/22/18 19:10 Neg (Negative) 10/22/18 19:10 Neg (Negative) 10/22/18 19:10 < 2.0 mg/dL (<2.0) 10/22/18 19:10 Ur Leukocyte Esterase Neg (Negative) 10/22/18 19:10 1.0 /HPF (0.0-6.0) 10/22/18 19:10 3.0 /HPF (0.0-6.0) 10/22/18 19:10 Heparin-induced Plt Ab Negative (Negative) 10/30/18 13:58 UF Heparin High Dose 0 % Release 10/30/18 13:58 KIMO UFH Low Dose 0.1 0 % Release 10/30/18 13:58 KIMO UFH Low Dose 0.5 0 % Release 10/30/18 13:58 Active Medications - Current Medications Current Medications: Generic Name Dose Route Start Last Admin Trade Name Freq PRN Reason Stop Dose Admin Acetaminophen 650 mg 10/22/18 20:10 11/17/18 20:17 Tylenol PO 650 mg Q4H PRN Administration Pain MILD(1-3)/Fever >100.5/PORTER Albuterol 2.5 mg 10/22/18 20:14 11/05/18 16:35 Proventil IH 2.5 mg Q4HRT PRN Administration Shortness Of Breath Lipase/Protease/Amylase 1 each 11/05/18 10:[address] 10,500 Unit FEEDTUBE PRN PRN For Clogged Feeding Tube Arformoterol Tartrate 15 mcg 11/05/18 20:00 11/20/18 07:46 Brovana Nebu IH 15 mcg Q12HRT RICK Administration Budesonide 0.5 mg 10/23/18 08:00 11/20/18 07:46 Pulmicort IH 0.5 mg Q12HRT RICK Administration Clonazepam 1 mg 11/18/18 11:00 11/20/18 08:25 Klonopin PO 1 mg TID RICK Administration Dextrose 50 ml 10/26/18 23:40 10/27/18 00:20 D50w (25gm) Syringe IV 50 ml PRN PRN Administration Hypoglycemia Enoxaparin Sodium 40 mg 11/14/18 22:00 11/19/18 21:37 Lovenox SUB-Q 40 mg QDAY@2200 RICK Administration Fentanyl 50 mcg 11/18/18 11:00 11/18/18 11:00 Duragesic TD 50 mcg Q3D RICK Administration Gabapentin 600 mg 11/12/18 10:00 11/20/18 05:48 Neurontin PO 600 mg Q8HR RICK Administration Hydralazine HCl 10 mg 10/22/18 21:41 11/07/18 00:04 Apresoline IV 10 mg Q4HR PRN Administration Blood Pressure Hydromorphone HCl 1 mg 11/12/18 09:55 11/20/18 08:24 Dilaudid IV 1 mg Q4H PRN Administration Pain , Severe (7-10) Hydrophilic Ointment 1 applic 11/07/18 09:14 Vaseline Lip Therapy TP Q2HR PRN Dry Lips Ferric Sodium Gluconate 110 mls @ 100 mls/hr 11/20/18 08:30 Complex 125 mg/ Sodium IV 11/20/18 09:35 Chloride ONCE ONE Insulin Human Isoph/Insulin Regular 12 unit 11/10/18 22:00 11/19/18 22:00 Humulin 70/30 SUB-Q 12 unit BID RICK Administration Insulin Human Lispro 0 unit 10/29/18 12:00 11/20/18 05:49 Humalog SUB-Q 2 unit Q6HR RICK Administration Protocol Lansoprazole 30 mg 11/17/18 10:00 11/19/18 09:47 Prevacid Solutab FEEDTUBE 30 mg QDAY RICK Administration Lorazepam 0.5 mg 11/18/18 11:00 11/19/18 09:31 Ativan IV 0.5 mg Q6H PRN Administration Anxiety Methylprednisolone Sodium Succinate 20 mg 11/17/18 14:00 11/20/18 05:51 Solu-Medrol IV 20 mg Q8HR RICK Administration Multi-Ingred Cream/Lotion/Oil/Oint 1 applic 11/07/18 09:14 Artificial Tears Ophth Oint OU Q4HR PRN Dry Eye(s) Ondansetron HCl 4 mg 10/24/18 10:05 10/25/18 17:26 Zofran IV 4 mg Q6H PRN Administration Nausea And Vomiting Phenol 1 spray 10/28/18 10:16 Chloraseptic MM PRN PRN Sore Throat Promethazine HCl 25 mg 10/22/18 20:10 10/22/18 21:21 Phenergan SD 25 mg Q6H PRN Administration Nausea And Vomiting Propranolol HCl 20 mg 11/18/18 14:00 11/20/18 08:25 Inderal PO 20 mg TID RICK Administration Quetiapine Fumarate 300 mg 11/12/18 10:00 11/19/18 09:47 Seroquel PO 300 mg DAILY RICK Administration Simple Syrup 15 ml 11/05/18 10:13 Simple Syrup FEEDTUBE PRN PRN Hypoglycemia Simple Syrup 30 ml 11/05/18 10:13 Simple Syrup FEEDTUBE PRN PRN Hypoglycemia Sodium Bicarbonate 325 mg 11/05/18 10:13 Sodium Bicarbonate FEEDTUBE PRN PRN For Clogged Feeding Tube Sodium Chloride 10 ml 10/22/18 22:00 11/19/18 22:15 Sodium Chloride Flush Syringe 10 Ml IV 10 ml BID RICK Administration Sodium Chloride 10 ml 10/22/18 20:10 11/09/18 14:29 Sodium Chloride Flush Syringe 10 Ml IV 10 ml PRN PRN Administration LINE FLUSH Nutrition/Malnutrition Assess - Dietary Evaluation Nutrition/Malnutrition Findings: Nutrition Notes Start: 10/23/18 17:03 Freq: Status: Active Protocol: Document 11/19/18 15:57 RM (Rec: 11/19/18 16:01 RM [id number]) Nutrition Notes Initial or Follow up Reassessment Other Pertinent Diagnosis Gastric peforation, bilat pneu Current Diet TF - Vital AF 1.2 at 45 ml/hr Labs/Tests Reviewed Pertinent Medications Solu-Medrol Height 5 ft 3 in Weight 65.9 kg [place] Body Weight (kg) 52.27 BMI 25.7 Subjective/Other Information Dr. Grey concern about persistent diarrhea and request to TF formula reevaluation relayed to verse writer . TF formula in use likely not cause of diarrhea but will try switching to TF without fiber. Burn Absent Trauma Absent #1 Nutrition Diagnosis Inadequate oral intake Diagnosis Progress(for reassessment Continues documentation) Is patient on ventilator? Yes Is Patient Ambulatory and/or Out of Bed No REE-([facility]-confined to bed) 1371.876 Kcal/Kg value to use for calculation 25 Approximate Energy Requirements Using 1648 kcal/Kg Calculation Used for Recommendations [facility] Additional Notes Pro needs 1.2-2g/kg (based on UBW): 60-100g/day Fluid needs 1ml/kcal Nutrition Intervention Nutrition Support: Promote 70 ml/hr. Water flush of 50 ml q 4 hrs. Kcal 1,680 Protein (gm) 105 Fluid (mL) 1,410 Fiber (gm) 0 Goal #1 TF tolerance Goal #2 TF to meet at least 75% energy and pro needs Follow-Up By: 11/21/18 Additional Comments Follow for TF tolerance, diarrhea
--- NOTE | 2018-11-20 11:12 | Progress Note ---
Assessment and Plan 73 y/o female with bowel obstruction and now acute respiratory failure with hypercapnea, likely multifactorial from pain medications, anti-psychotic therapy and inability to take deep breaths for ventilation, now with fungemia from picc line placement. 1. Patient trached now and doing daily PSV trials. Will continue. Asked RT to extend the time on night shit before resting on Full Vent support. 2. Finished antifungal therapy 3. Tube feeds at goal now. ID concerned about diarrhea but spoke with nutrition and at this point, nothing to change about feeding. ID not concerned about an infectious cause of diarrhea. ID had ordered CT but white count has decreased, no fever. Will cancel 4. Changed steroids to BID 5. CM aware of need for clinical data specialist placement post trach. Referrals have been sent out. 6. Continue PT, did well with this. 8. Continue Klonopin and PRN ativan CCT 31 minutes. Subjective Date of service: 11/20/18 Principal diagnosis: anemia Interval history: Continues to tolerate PSV on a daily basis all day. at bedside. Now asking for ativan. Did not receive any last night. Objective Vital Signs - 12hr 11/19/18 11/19/18 11/19/18 23:22 23:29 23:30 Temperature Pulse Rate 77 75 Pulse Rate [ Anterior Bilateral Throughout] Pulse Rate [ 79 From Monitor] Pulse Rate [ 79 Left Dorsalis Pedis] Pulse Rate [ 79 Right Dorsalis Pedis] Respiratory 20 23 18 Rate Respiratory Rate [Anterior Bilateral Throughout] Blood Pressure 95/38 100/44 O2 Sat by Pulse 98 100 98 Oximetry O2 Sat by Pulse Oximetry [ Assessment] 11/19/18 11/19/18 11/20/18 23:39 23:44 00:00 Temperature 98.8 F Pulse Rate 80 79 Pulse Rate [ Anterior Bilateral Throughout] Pulse Rate [ From Monitor] Pulse Rate [ Left Dorsalis Pedis] Pulse Rate [ Right Dorsalis Pedis] Respiratory 18 Rate Respiratory Rate [Anterior Bilateral Throughout] Blood Pressure 100/44 107/51 O2 Sat by Pulse 98 98 Oximetry O2 Sat by Pulse 98 Oximetry [ Assessment] 11/20/18 11/20/18 11/20/18 00:30 01:00 01:30 Temperature Pulse Rate 75 73 76 Pulse Rate [ Anterior Bilateral Throughout] Pulse Rate [ From Monitor] Pulse Rate [ Left Dorsalis Pedis] Pulse Rate [ Right Dorsalis Pedis] Respiratory 18 17 15 Rate Respiratory Rate [Anterior Bilateral Throughout] Blood Pressure 99/40 97/42 106/45 O2 Sat by Pulse 98 98 99 Oximetry O2 Sat by Pulse Oximetry [ Assessment] 11/20/18 11/20/18 11/20/18 02:00 02:30 03:00 Temperature Pulse Rate 75 84 77 Pulse Rate [ Anterior Bilateral Throughout] Pulse Rate [ From Monitor] Pulse Rate [ Left Dorsalis Pedis] Pulse Rate [ Right Dorsalis Pedis] Respiratory 16 15 17 Rate Respiratory Rate [Anterior Bilateral Throughout] Blood Pressure 106/45 119/52 93/38 O2 Sat by Pulse 98 100 98 Oximetry O2 Sat by Pulse Oximetry [ Assessment] 11/20/18 11/20/18 11/20/18 03:30 03:33 03:50 Temperature 98.7 F Pulse Rate 80 86 Pulse Rate [ Anterior Bilateral Throughout] Pulse Rate [ From Monitor] Pulse Rate [ Left Dorsalis Pedis] Pulse Rate [ Right Dorsalis Pedis] Respiratory 18 Rate Respiratory Rate [Anterior Bilateral Throughout] Blood Pressure 103/40 103/40 O2 Sat by Pulse 96 100 Oximetry O2 Sat by Pulse Oximetry [ Assessment] 11/20/18 11/20/18 11/20/18 03:52 03:53 03:58 Temperature Pulse Rate 86 Pulse Rate [ Anterior Bilateral Throughout] Pulse Rate [ 79 From Monitor] Pulse Rate [ 79 Left Dorsalis Pedis] Pulse Rate [ 79 Right Dorsalis Pedis] Respiratory 23 Rate Respiratory Rate [Anterior Bilateral Throughout] Blood Pressure O2 Sat by Pulse 100 Oximetry O2 Sat by Pulse 100 Oximetry [ Assessment] 11/20/18 11/20/18 11/20/18 04:00 04:30 05:00 Temperature Pulse Rate 86 84 80 Pulse Rate [ Anterior Bilateral Throughout] Pulse Rate [ From Monitor] Pulse Rate [ Left Dorsalis Pedis] Pulse Rate [ Right Dorsalis Pedis] Respiratory 18 18 17 Rate Respiratory Rate [Anterior Bilateral Throughout] Blood Pressure 108/42 92/40 96/52 O2 Sat by Pulse 100 100 100 Oximetry O2 Sat by Pulse Oximetry [ Assessment] 11/20/18 11/20/18 11/20/18 05:30 07:46 08:00 Temperature 97.7 F Pulse Rate 88 79 Pulse Rate [ 84 Anterior Bilateral Throughout] Pulse Rate [ From Monitor] Pulse Rate [ Left Dorsalis Pedis] Pulse Rate [ Right Dorsalis Pedis] Respiratory 20 Rate Respiratory 18 Rate [Anterior Bilateral Throughout] Blood Pressure 96/45 99/45 O2 Sat by Pulse 100 100 Oximetry O2 Sat by Pulse Oximetry [ Assessment] 11/20/18 08:25 Temperature Pulse Rate 98 H Pulse Rate [ Anterior Bilateral Throughout] Pulse Rate [ From Monitor] Pulse Rate [ Left Dorsalis Pedis] Pulse Rate [ Right Dorsalis Pedis] Respiratory Rate Respiratory Rate [Anterior Bilateral Throughout] Blood Pressure 109/42 O2 Sat by Pulse Oximetry O2 Sat by Pulse Oximetry [ Assessment] Constitutional: alert Eyes: non-icteric ENT: other (trach in position) Neck: supple, no JVD, other (trach is midline) Effort: mildly labored Ascultation: Bilateral: clear, diminished breath sounds, wheezes (sporadic), rales, rhonchi (sporadic) Percussion: Bilateral: not dull Cardiovascular: regular rate and rhythm Gastrointestinal: hypoactive bowel sounds, non-tender, non-distended, other Integumentary: normal Extremities: no edema Neurologic: normal mental status, non-focal exam Psychiatric: anxious CBC and BMP: 11/20/18 04:19 11/20/18 04:19 ABG, PT/INR, D-dimer: ABG POC ABG pH 7.446 (7.35-7.45) 11/15/18 11:33 POC ABG pCO2 46.1 (35-45) H 11/15/18 11:33 POC ABG pO2 107 (80-105) H 11/15/18 11:33 POC ABG HCO3 31.8 (22-26 mml/L) 11/15/18 11:33 POC ABG Total CO2 33 (23-27mmol/L) 11/15/18 11:33 POC ABG O2 Sat 98 11/15/18 11:33 Abnormal lab findings: Abnormal Labs 10/22/18 10/22/18 10/22/18 15:31 15:54 15:54 WBC 11.5 H RBC 5.35 H Hgb 17.4 H Hct 50.3 H MCV MCH 33 H MCHC 35 H RDW Plt Count Lymph % (Auto) 12.6 L [place] % (Auto) 14.8 H Lymph # [place] # 1.7 H Seg Neutrophils % 72.5 H Seg Neuts % (Manual) Lymphocytes % (Manual) Seg Neutrophils # 8.3 H Seg Neutrophils # Man Lymphocytes # (Manual) POC ABG pH POC ABG pCO2 POC ABG pO2 Sodium 134 L Potassium Chloride 88.1 L Carbon Dioxide BUN 51 H Creatinine 2.1 H Glucose 166 H POC Glucose Calcium Phosphorus Magnesium Iron TIBC Ferritin Alkaline Phosphatase NT-Pro-B Natriuret Pep Total Protein Albumin 3.4 L Lipase 10 L Free T4 10/23/18 10/23/18 10/23/18 04:32 04:32 10:53 WBC RBC Hgb Hct MCV MCH MCHC RDW Plt Count Lymph % (Auto) 10.2 L [place] % (Auto) 14.7 H Lymph # 0.7 L [place] # 1.0 H Seg Neutrophils % 74.9 H Seg Neuts % (Manual) Lymphocytes % (Manual) Seg Neutrophils # Seg Neutrophils # Man Lymphocytes # (Manual) POC ABG pH POC ABG pCO2 POC ABG pO2 Sodium Potassium 3.1 L D 3.5 L Chloride Carbon Dioxide BUN 41 H 37 H Creatinine Glucose 111 H 110 H POC Glucose Calcium 8.1 L 8.1 L Phosphorus Magnesium Iron TIBC Ferritin Alkaline Phosphatase NT-Pro-B Natriuret Pep Total Protein Albumin Lipase Free T4 10/24/18 10/24/18 10/25/18 05:34 05:34 04:51 WBC RBC Hgb Hct MCV MCH MCHC RDW Plt Count Lymph % (Auto) [place] % (Auto) Lymph # [place] # Seg Neutrophils % Seg Neuts % (Manual) Lymphocytes % (Manual) Seg Neutrophils # Seg Neutrophils # Man Lymphocytes # (Manual) POC ABG pH POC ABG pCO2 POC ABG pO2 Sodium Potassium 3.2 L 3.1 L Chloride 109.8 H 114.2 H Carbon Dioxide 17 L D BUN 21 H Creatinine Glucose 134 H 171 H POC Glucose Calcium 7.7 L 7.0 L Phosphorus 0.80 L* Magnesium Iron TIBC Ferritin Alkaline Phosphatase NT-Pro-B Natriuret Pep Total Protein Albumin Lipase Free T4 10/25/18 10/26/18 10/26/18 06:07 02:58 04:57 WBC RBC Hgb Hct MCV 99 H MCH 33 H MCHC RDW Plt Count Lymph % (Auto) [place] % (Auto) Lymph # [place] # Seg Neutrophils % Seg Neuts % (Manual) Lymphocytes % (Manual) Seg Neutrophils # Seg Neutrophils # Man Lymphocytes # (Manual) POC ABG pH 7.090 L 7.320 L POC ABG pCO2 65.0 H 32.8 L POC ABG pO2 76 L Sodium Potassium Chloride Carbon Dioxide BUN Creatinine Glucose POC Glucose Calcium Phosphorus Magnesium Iron TIBC Ferritin Alkaline Phosphatase NT-Pro-B Natriuret Pep Total Protein Albumin Lipase Free T4 10/26/18 10/26/18 10/26/18 06:03 06:03 11:52 WBC 23.8 H RBC Hgb 15.4 H Hct 46.1 H D MCV MCH MCHC RDW Plt Count Lymph % (Auto) [place] % (Auto) Lymph # [place] # Seg Neutrophils % Seg Neuts % (Manual) Lymphocytes % (Manual) Seg Neutrophils # Seg Neutrophils # Man Lymphocytes # (Manual) POC ABG pH POC ABG pCO2 POC ABG pO2 Sodium Potassium Chloride 109.5 H Carbon Dioxide 18 L BUN Creatinine Glucose 128 H POC Glucose 117 H Calcium 8.3 L D Phosphorus Magnesium Iron TIBC Ferritin Alkaline Phosphatase NT-Pro-B Natriuret Pep Total Protein Albumin Lipase Free T4 10/26/18 10/26/18 10/26/18 13:54 17:10 17:32 WBC RBC Hgb Hct MCV MCH MCHC RDW Plt Count Lymph % (Auto) [place] % (Auto) Lymph # [place] # Seg Neutrophils % Seg Neuts % (Manual) Lymphocytes % (Manual) Seg Neutrophils # Seg Neutrophils # Man Lymphocytes # (Manual) POC ABG pH 7.215 L POC ABG pCO2 31.8 L POC ABG pO2 69 L 204 H Sodium Potassium 3.0 L D Chloride 114.5 H Carbon Dioxide 21 L BUN Creatinine Glucose POC Glucose Calcium 7.6 L Phosphorus Magnesium 1.40 L Iron TIBC Ferritin Alkaline Phosphatase NT-Pro-B Natriuret Pep Total Protein Albumin Lipase Free T4 10/26/18 10/27/18 10/27/18 23:13 00:40 01:09 WBC RBC Hgb Hct MCV MCH MCHC RDW Plt Count Lymph % (Auto) [place] % (Auto) Lymph # [place] # Seg Neutrophils % Seg Neuts % (Manual) Lymphocytes % (Manual) Seg Neutrophils # Seg Neutrophils # Man Lymphocytes # (Manual) POC ABG pH POC ABG pCO2 POC ABG pO2 Sodium Potassium 3.4 L Chloride 115.0 H Carbon Dioxide 14 L D BUN Creatinine Glucose 228 H POC Glucose 48 L 264 H Calcium 7.1 L Phosphorus Magnesium Iron TIBC Ferritin Alkaline Phosphatase NT-Pro-B Natriuret Pep Total Protein Albumin Lipase Free T4 10/27/18 10/27/18 10/27/18 05:00 05:00 05:16 WBC 22.5 H RBC Hgb 14.7 H Hct 44.4 H MCV MCH MCHC RDW Plt Count Lymph % (Auto) [place] % (Auto) Lymph # [place] # Seg Neutrophils % Seg Neuts % (Manual) Lymphocytes % (Manual) Seg Neutrophils # Seg Neutrophils # Man Lymphocytes # (Manual) POC ABG pH 7.304 L POC ABG pCO2 POC ABG pO2 116 H Sodium Potassium Chloride 118.4 H Carbon Dioxide 16 L BUN Creatinine Glucose 123 H POC Glucose Calcium 7.7 L Phosphorus Magnesium 2.60 H Iron TIBC Ferritin Alkaline Phosphatase NT-Pro-B Natriuret Pep Total Protein Albumin Lipase Free T4 10/28/18 10/28/18 10/28/18 04:25 04:25 15:37 WBC 23.5 H RBC Hgb Hct MCV MCH MCHC RDW Plt Count Lymph % (Auto) [place] % (Auto) Lymph # [place] # Seg Neutrophils % Seg Neuts % (Manual) Lymphocytes % (Manual) Seg Neutrophils # Seg Neutrophils # Man Lymphocytes # (Manual) POC ABG pH POC ABG pCO2 POC ABG pO2 Sodium 147 H Potassium Chloride 116.9 H Carbon Dioxide 16 L BUN 23 H Creatinine Glucose POC Glucose 114 H Calcium 8.0 L Phosphorus Magnesium Iron TIBC Ferritin Alkaline Phosphatase NT-Pro-B Natriuret Pep Total Protein Albumin Lipase Free T4 10/28/18 10/28/18 10/28/18 20:33 22:07 23:31 WBC RBC Hgb Hct MCV MCH MCHC RDW Plt Count Lymph % (Auto) [place] % (Auto) Lymph # [place] # Seg Neutrophils % Seg Neuts % (Manual) Lymphocytes % (Manual) Seg Neutrophils # Seg Neutrophils # Man Lymphocytes # (Manual) POC ABG pH 7.202 L 7.235 L POC ABG pCO2 POC ABG pO2 71 L Sodium Potassium Chloride Carbon Dioxide BUN Creatinine Glucose POC Glucose 207 H Calcium Phosphorus Magnesium Iron TIBC Ferritin Alkaline Phosphatase NT-Pro-B Natriuret Pep Total Protein Albumin Lipase Free T4 10/29/18 10/29/18 10/29/18 04:30 04:30 05:26 WBC 21.1 H RBC Hgb Hct MCV MCH MCHC RDW Plt Count Lymph % (Auto) [place] % (Auto) Lymph # [place] # Seg Neutrophils % Seg Neuts % (Manual) 97.0 H Lymphocytes % (Manual) 3.0 L Seg Neutrophils # Seg Neutrophils # Man 20.5 H Lymphocytes # (Manual) 0.6 L POC ABG pH 7.305 L POC ABG pCO2 30.5 L POC ABG pO2 75 L Sodium 147 H Potassium 3.5 L Chloride 120.0 H Carbon Dioxide 17 L BUN 30 H Creatinine Glucose 246 H POC Glucose Calcium 7.9 L Phosphorus Magnesium Iron TIBC Ferritin Alkaline Phosphatase NT-Pro-B Natriuret Pep Total Protein Albumin Lipase Free T4 10/29/18 10/29/18 10/29/18 05:36 11:39 18:00 WBC RBC Hgb Hct MCV MCH MCHC RDW Plt Count Lymph % (Auto) [place] % (Auto) Lymph # [place] # Seg Neutrophils % Seg Neuts % (Manual) Lymphocytes % (Manual) Seg Neutrophils # Seg Neutrophils # Man Lymphocytes # (Manual) POC ABG pH POC ABG pCO2 POC ABG pO2 Sodium Potassium Chloride Carbon Dioxide BUN Creatinine Glucose POC Glucose 204 H 224 H 221 H Calcium Phosphorus Magnesium Iron TIBC Ferritin Alkaline Phosphatase NT-Pro-B Natriuret Pep Total Protein Albumin Lipase Free T4 10/29/18 10/30/18 10/30/18 23:17 05:00 05:00 WBC 21.4 H RBC Hgb Hct MCV MCH MCHC RDW Plt Count 134 L Lymph % (Auto) [place] % (Auto) Lymph # [place] # Seg Neutrophils % Seg Neuts % (Manual) 97.0 H Lymphocytes % (Manual) 3.0 L Seg Neutrophils # Seg Neutrophils # Man 20.8 H Lymphocytes # (Manual) 0.6 L POC ABG pH POC ABG pCO2 POC ABG pO2 Sodium 148 H Potassium 3.1 L Chloride 120.3 H Carbon Dioxide 18 L BUN 31 H Creatinine Glucose 205 H POC Glucose 181 H Calcium 8.0 L Phosphorus Magnesium Iron TIBC Ferritin Alkaline Phosphatase NT-Pro-B Natriuret Pep Total Protein Albumin Lipase Free T4 10/30/18 10/30/18 10/30/18 05:14 05:25 05:26 WBC RBC Hgb Hct MCV MCH MCHC RDW Plt Count Lymph % (Auto) [place] % (Auto) Lymph # [place] # Seg Neutrophils % Seg Neuts % (Manual) Lymphocytes % (Manual) Seg Neutrophils # Seg Neutrophils # Man Lymphocytes # (Manual) POC ABG pH 7.296 L 7.245 L POC ABG pCO2 31.1 L POC ABG pO2 54 L 59 L Sodium Potassium Chloride Carbon Dioxide BUN Creatinine Glucose POC Glucose 199 H Calcium Phosphorus Magnesium Iron TIBC Ferritin Alkaline Phosphatase NT-Pro-B Natriuret Pep Total Protein Albumin Lipase Free T4 10/30/18 10/30/18 10/31/18 13:23 18:25 00:22 WBC RBC Hgb Hct MCV MCH MCHC RDW Plt Count Lymph % (Auto) [place] % (Auto) Lymph # [place] # Seg Neutrophils % Seg Neuts % (Manual) Lymphocytes % (Manual) Seg Neutrophils # Seg Neutrophils # Man Lymphocytes # (Manual) POC ABG pH POC ABG pCO2 POC ABG pO2 Sodium Potassium Chloride Carbon Dioxide BUN Creatinine Glucose POC Glucose 146 H 158 H 162 H Calcium Phosphorus Magnesium Iron TIBC Ferritin Alkaline Phosphatase NT-Pro-B Natriuret Pep Total Protein Albumin Lipase Free T4 10/31/18 10/31/18 10/31/18 04:39 05:14 07:05 WBC RBC Hgb Hct MCV MCH MCHC RDW Plt Count Lymph % (Auto) [place] % (Auto) Lymph # [place] # Seg Neutrophils % Seg Neuts % (Manual) Lymphocytes % (Manual) Seg Neutrophils # Seg Neutrophils # Man Lymphocytes # (Manual) POC ABG pH 7.238 L POC ABG pCO2 POC ABG pO2 Sodium Potassium Chloride 115.8 H Carbon Dioxide 18 L BUN 39 H Creatinine 1.3 H Glucose 167 H POC Glucose 145 H Calcium 7.5 L Phosphorus 1.80 L Magnesium Iron TIBC Ferritin Alkaline Phosphatase NT-Pro-B Natriuret Pep Total Protein Albumin Lipase Free T4 10/31/18 10/31/18 10/31/18 10:43 12:03 17:00 WBC RBC Hgb Hct MCV MCH MCHC RDW Plt Count Lymph % (Auto) [place] % (Auto) Lymph # [place] # Seg Neutrophils % Seg Neuts % (Manual) Lymphocytes % (Manual) Seg Neutrophils # Seg Neutrophils # Man Lymphocytes # (Manual) POC ABG pH 7.304 L POC ABG pCO2 33.3 L POC ABG pO2 Sodium Potassium Chloride Carbon Dioxide BUN Creatinine Glucose POC Glucose 159 H Calcium Phosphorus Magnesium Iron TIBC Ferritin Alkaline Phosphatase NT-Pro-B Natriuret Pep Total Protein Albumin Lipase Free T4 0.49 L 10/31/18 11/01/18 11/01/18 17:00 00:44 05:27 WBC RBC Hgb Hct MCV MCH MCHC RDW Plt Count Lymph % (Auto) [place] % (Auto) Lymph # [place] # Seg Neutrophils % Seg Neuts % (Manual) Lymphocytes % (Manual) Seg Neutrophils # Seg Neutrophils # Man Lymphocytes # (Manual) POC ABG pH 7.248 L POC ABG pCO2 34.8 L POC ABG pO2 135 H Sodium Potassium Chloride Carbon Dioxide BUN Creatinine Glucose POC Glucose 127 H 118 H Calcium Phosphorus Magnesium Iron TIBC Ferritin Alkaline Phosphatase NT-Pro-B Natriuret Pep Total Protein Albumin Lipase Free T4 11/01/18 11/01/18 11/01/18 06:40 06:40 06:53 WBC 18.9 H RBC 3.63 L Hgb Hct MCV MCH MCHC RDW Plt Count 64 L Lymph % (Auto) [place] % (Auto) Lymph # [place] # Seg Neutrophils % Seg Neuts % (Manual) 98.0 H Lymphocytes % (Manual) 1.0 L Seg Neutrophils # Seg Neutrophils # Man 18.5 H Lymphocytes # (Manual) 0.2 L POC ABG pH POC ABG pCO2 POC ABG pO2 Sodium Potassium 3.5 L Chloride 114.2 H Carbon Dioxide 17 L BUN 49 H Creatinine Glucose 107 H POC Glucose 127 H Calcium 7.3 L Phosphorus Magnesium 1.60 L Iron TIBC Ferritin Alkaline Phosphatase NT-Pro-B Natriuret Pep Total Protein Albumin Lipase Free T4 11/01/18 11/01/18 11/01/18 11:49 13:13 17:24 WBC RBC Hgb Hct MCV MCH MCHC RDW Plt Count Lymph % (Auto) [place] % (Auto) Lymph # [place] # Seg Neutrophils % Seg Neuts % (Manual) Lymphocytes % (Manual) Seg Neutrophils # Seg Neutrophils # Man Lymphocytes # (Manual) POC ABG pH POC ABG pCO2 POC ABG pO2 182 H Sodium Potassium Chloride Carbon Dioxide BUN Creatinine Glucose POC Glucose 134 H 111 H Calcium Phosphorus Magnesium Iron TIBC Ferritin Alkaline Phosphatase NT-Pro-B Natriuret Pep Total Protein Albumin Lipase Free T4 11/01/18 11/02/18 11/02/18 23:07 04:32 05:00 WBC RBC Hgb Hct MCV MCH MCHC RDW Plt Count Lymph % (Auto) [place] % (Auto) Lymph # [place] # Seg Neutrophils % Seg Neuts % (Manual) Lymphocytes % (Manual) Seg Neutrophils # Seg Neutrophils # Man Lymphocytes # (Manual) POC ABG pH 7.244 L POC ABG pCO2 33.2 L POC ABG pO2 123 H Sodium Potassium 3.0 L Chloride 114.1 H Carbon Dioxide 15 L BUN 47 H Creatinine Glucose 127 H POC Glucose 123 H Calcium 7.7 L Phosphorus Magnesium Iron TIBC Ferritin Alkaline Phosphatase NT-Pro-B Natriuret Pep Total Protein Albumin Lipase Free T4 11/02/18 11/02/18 11/02/18 05:00 05:29 11:27 WBC RBC Hgb Hct MCV MCH MCHC RDW Plt Count Lymph % (Auto) [place] % (Auto) Lymph # [place] # Seg Neutrophils % Seg Neuts % (Manual) Lymphocytes % (Manual) Seg Neutrophils # Seg Neutrophils # Man Lymphocytes # (Manual) POC ABG pH POC ABG pCO2 POC ABG pO2 Sodium Potassium Chloride Carbon Dioxide BUN Creatinine Glucose POC Glucose 118 H 137 H Calcium Phosphorus Magnesium 1.60 L Iron TIBC Ferritin Alkaline Phosphatase NT-Pro-B Natriuret Pep Total Protein Albumin Lipase Free T4 11/02/18 11/02/18 11/03/18 12:53 23:35 04:14 WBC RBC Hgb Hct MCV MCH MCHC RDW Plt Count Lymph % (Auto) [place] % (Auto) Lymph # [place] # Seg Neutrophils % Seg Neuts % (Manual) Lymphocytes % (Manual) Seg Neutrophils # Seg Neutrophils # Man Lymphocytes # (Manual) POC ABG pH POC ABG pCO2 30.3 L POC ABG pO2 134 H 129 H Sodium Potassium Chloride Carbon Dioxide BUN Creatinine Glucose POC Glucose 115 H Calcium Phosphorus Magnesium Iron TIBC Ferritin Alkaline Phosphatase NT-Pro-B Natriuret Pep Total Protein Albumin Lipase Free T4 11/03/18 11/03/18 11/03/18 05:34 11:30 11:30 WBC 16.4 H RBC 3.50 L Hgb Hct MCV MCH MCHC RDW Plt Count 136 L D Lymph % (Auto) [place] % (Auto) Lymph # [place] # Seg Neutrophils % Seg Neuts % (Manual) 97.0 H Lymphocytes % (Manual) 2.0 L Seg Neutrophils # Seg Neutrophils # Man 15.9 H Lymphocytes # (Manual) 0.3 L POC ABG pH POC ABG pCO2 POC ABG pO2 Sodium Potassium 3.1 L Chloride 110.4 H Carbon Dioxide 17 L BUN 41 H Creatinine Glucose 129 H POC Glucose 116 H Calcium 7.7 L Phosphorus Magnesium 1.60 L Iron TIBC Ferritin Alkaline Phosphatase NT-Pro-B Natriuret Pep Total Protein 4.2 L Albumin 1.2 L Lipase Free T4 11/03/18 11/03/18 11/03/18 12:01 17:35 21:37 WBC RBC Hgb Hct MCV MCH MCHC RDW Plt Count Lymph % (Auto) [place] % (Auto) Lymph # [place] # Seg Neutrophils % Seg Neuts % (Manual) Lymphocytes % (Manual) Seg Neutrophils # Seg Neutrophils # Man Lymphocytes # (Manual) POC ABG pH POC ABG pCO2 POC ABG pO2 Sodium Potassium Chloride Carbon Dioxide BUN Creatinine Glucose POC Glucose 132 H 132 H 126 H Calcium Phosphorus Magnesium Iron TIBC Ferritin Alkaline Phosphatase NT-Pro-B Natriuret Pep Total Protein Albumin Lipase Free T4 11/03/18 11/04/18 11/04/18 23:30 05:14 05:15 WBC RBC Hgb Hct MCV MCH MCHC RDW Plt Count Lymph % (Auto) [place] % (Auto) Lymph # [place] # Seg Neutrophils % Seg Neuts % (Manual) Lymphocytes % (Manual) Seg Neutrophils # Seg Neutrophils # Man Lymphocytes # (Manual) POC ABG pH POC ABG pCO2 30.9 L POC ABG pO2 192 H Sodium Potassium Chloride Carbon Dioxide BUN Creatinine Glucose POC Glucose 115 H 123 H Calcium Phosphorus Magnesium Iron TIBC Ferritin Alkaline Phosphatase NT-Pro-B Natriuret Pep Total Protein Albumin Lipase Free T4 11/04/18 11/04/18 11/04/18 09:39 09:39 11:43 WBC 15.2 H RBC 3.18 L Hgb Hct 29.9 L MCV MCH MCHC RDW Plt Count Lymph % (Auto) [place] % (Auto) Lymph # [place] # Seg Neutrophils % Seg Neuts % (Manual) 98.0 H Lymphocytes % (Manual) 1.0 L Seg Neutrophils # Seg Neutrophils # Man 14.9 H Lymphocytes # (Manual) 0.2 L POC ABG pH POC ABG pCO2 POC ABG pO2 Sodium 135 L D Potassium Chloride 109.5 H Carbon Dioxide 16 L BUN 46 H Creatinine Glucose 136 H POC Glucose 138 H Calcium 8.0 L Phosphorus Magnesium Iron TIBC Ferritin Alkaline Phosphatase NT-Pro-B Natriuret Pep Total Protein Albumin Lipase Free T4 11/04/18 11/04/18 11/05/18 17:31 23:42 05:23 WBC RBC Hgb Hct MCV MCH MCHC RDW Plt Count Lymph % (Auto) [place] % (Auto) Lymph # [place] # Seg Neutrophils % Seg Neuts % (Manual) Lymphocytes % (Manual) Seg Neutrophils # Seg Neutrophils # Man Lymphocytes # (Manual) POC ABG pH POC ABG pCO2 POC ABG pO2 Sodium Potassium Chloride Carbon Dioxide BUN Creatinine Glucose POC Glucose 139 H 138 H 148 H Calcium Phosphorus Magnesium Iron TIBC Ferritin Alkaline Phosphatase NT-Pro-B Natriuret Pep Total Protein Albumin Lipase Free T4 11/05/18 11/05/18 11/05/18 05:30 05:30 11:46 WBC 14.2 H RBC 3.12 L Hgb 10.0 L Hct 29.1 L MCV MCH MCHC RDW Plt Count Lymph % (Auto) [place] % (Auto) Lymph # [place] # Seg Neutrophils % Seg Neuts % (Manual) Lymphocytes % (Manual) Seg Neutrophils # Seg Neutrophils # Man Lymphocytes # (Manual) POC ABG pH POC ABG pCO2 POC ABG pO2 Sodium Potassium Chloride Carbon Dioxide 21 L BUN 42 H Creatinine Glucose 125 H POC Glucose 157 H Calcium 7.9 L Phosphorus Magnesium Iron TIBC Ferritin Alkaline Phosphatase NT-Pro-B Natriuret Pep Total Protein Albumin Lipase Free T4 11/05/18 11/05/18 11/05/18 17:09 20:03 23:43 WBC RBC Hgb Hct MCV MCH MCHC RDW Plt Count Lymph % (Auto) [place] % (Auto) Lymph # [place] # Seg Neutrophils % Seg Neuts % (Manual) Lymphocytes % (Manual) Seg Neutrophils # Seg Neutrophils # Man Lymphocytes # (Manual) POC ABG pH POC ABG pCO2 POC ABG pO2 76 L Sodium Potassium Chloride Carbon Dioxide BUN Creatinine Glucose POC Glucose 142 H 204 H Calcium Phosphorus Magnesium Iron TIBC Ferritin Alkaline Phosphatase NT-Pro-B Natriuret Pep Total Protein Albumin Lipase Free T4 11/06/18 11/06/18 11/06/18 04:21 12:14 17:17 WBC RBC Hgb Hct MCV MCH MCHC RDW Plt Count Lymph % (Auto) [place] % (Auto) Lymph # [place] # Seg Neutrophils % Seg Neuts % (Manual) Lymphocytes % (Manual) Seg Neutrophils # Seg Neutrophils # Man Lymphocytes # (Manual) POC ABG pH POC ABG pCO2 POC ABG pO2 Sodium 133 L Potassium Chloride Carbon Dioxide 18 L BUN 47 H Creatinine Glucose 187 H POC Glucose 232 H 199 H Calcium 7.8 L Phosphorus 5.30 H D Magnesium 2.50 H Iron TIBC Ferritin Alkaline Phosphatase NT-Pro-B Natriuret Pep Total Protein Albumin Lipase Free T4 11/06/18 11/06/18 11/07/18 19:46 23:30 00:00 WBC RBC Hgb Hct MCV MCH MCHC RDW Plt Count Lymph % (Auto) [place] % (Auto) Lymph # [place] # Seg Neutrophils % Seg Neuts % (Manual) Lymphocytes % (Manual) Seg Neutrophils # Seg Neutrophils # Man Lymphocytes # (Manual) POC ABG pH 7.317 L POC ABG pCO2 50.3 H POC ABG pO2 58 L 57 L Sodium Potassium Chloride Carbon Dioxide BUN Creatinine Glucose POC Glucose 224 H Calcium Phosphorus Magnesium Iron TIBC Ferritin Alkaline Phosphatase NT-Pro-B Natriuret Pep Total Protein Albumin Lipase Free T4 11/07/18 11/07/18 11/07/18 04:55 04:55 04:55 WBC 25.2 H RBC 3.64 L Hgb Hct MCV MCH MCHC RDW Plt Count Lymph % (Auto) [place] % (Auto) Lymph # [place] # Seg Neutrophils % Seg Neuts % (Manual) Lymphocytes % (Manual) Seg Neutrophils # Seg Neutrophils # Man Lymphocytes # (Manual) POC ABG pH POC ABG pCO2 POC ABG pO2 Sodium Potassium Chloride Carbon Dioxide BUN 54 H Creatinine Glucose 270 H POC Glucose Calcium 7.9 L Phosphorus 5.00 H Magnesium Iron TIBC Ferritin Alkaline Phosphatase NT-Pro-B Natriuret Pep 4507 H Total Protein Albumin Lipase Free T4 11/07/18 11/07/18 11/07/18 05:46 08:08 11:52 WBC RBC Hgb Hct MCV MCH MCHC RDW Plt Count Lymph % (Auto) [place] % (Auto) Lymph # [place] # Seg Neutrophils % Seg Neuts % (Manual) Lymphocytes % (Manual) Seg Neutrophils # Seg Neutrophils # Man Lymphocytes # (Manual) POC ABG pH POC ABG pCO2 47.6 H POC ABG pO2 106 H Sodium Potassium Chloride Carbon Dioxide BUN Creatinine Glucose POC Glucose 266 H 323 H Calcium Phosphorus Magnesium Iron TIBC Ferritin Alkaline Phosphatase NT-Pro-B Natriuret Pep Total Protein Albumin Lipase Free T4 11/07/18 11/07/18 11/07/18 12:29 17:57 23:48 WBC RBC Hgb Hct MCV MCH MCHC RDW Plt Count Lymph % (Auto) [place] % (Auto) Lymph # [place] # Seg Neutrophils % Seg Neuts % (Manual) Lymphocytes % (Manual) Seg Neutrophils # Seg Neutrophils # Man Lymphocytes # (Manual) POC ABG pH POC ABG pCO2 POC ABG pO2 Sodium Potassium Chloride Carbon Dioxide BUN Creatinine Glucose POC Glucose 325 H 286 H 231 H Calcium Phosphorus Magnesium Iron TIBC Ferritin Alkaline Phosphatase NT-Pro-B Natriuret Pep Total Protein Albumin Lipase Free T4 11/08/18 11/08/18 11/08/18 03:58 05:05 05:05 WBC 18.4 H RBC 3.20 L Hgb 10.0 L Hct 29.7 L MCV MCH MCHC RDW Plt Count Lymph % (Auto) [place] % (Auto) Lymph # [place] # Seg Neutrophils % Seg Neuts % (Manual) Lymphocytes % (Manual) Seg Neutrophils # Seg Neutrophils # Man Lymphocytes # (Manual) POC ABG pH 7.524 H POC ABG pCO2 34.3 L POC ABG pO2 Sodium Potassium Chloride Carbon Dioxide BUN 61 H Creatinine Glucose 253 H POC Glucose Calcium 7.6 L Phosphorus Magnesium Iron TIBC Ferritin Alkaline Phosphatase NT-Pro-B Natriuret Pep Total Protein Albumin Lipase Free T4 11/08/18 11/08/18 11/08/18 05:28 11:28 18:21 WBC RBC Hgb Hct MCV MCH MCHC RDW Plt Count Lymph % (Auto) [place] % (Auto) Lymph # [place] # Seg Neutrophils % Seg Neuts % (Manual) Lymphocytes % (Manual) Seg Neutrophils # Seg Neutrophils # Man Lymphocytes # (Manual) POC ABG pH POC ABG pCO2 POC ABG pO2 Sodium Potassium Chloride Carbon Dioxide BUN Creatinine Glucose POC Glucose 295 H 253 H 225 H Calcium Phosphorus Magnesium Iron TIBC Ferritin Alkaline Phosphatase NT-Pro-B Natriuret Pep Total Protein Albumin Lipase Free T4 11/09/18 11/09/18 11/09/18 00:57 04:06 06:06 WBC RBC Hgb Hct MCV MCH MCHC RDW Plt Count Lymph % (Auto) [place] % (Auto) Lymph # [place] # Seg Neutrophils % Seg Neuts % (Manual) Lymphocytes % (Manual) Seg Neutrophils # Seg Neutrophils # Man Lymphocytes # (Manual) POC ABG pH 7.509 H POC ABG pCO2 POC ABG pO2 Sodium Potassium Chloride Carbon Dioxide BUN Creatinine Glucose POC Glucose 218 H 199 H Calcium Phosphorus Magnesium Iron TIBC Ferritin Alkaline Phosphatase NT-Pro-B Natriuret Pep Total Protein Albumin Lipase Free T4 11/09/18 11/09/18 11/09/18 06:51 06:51 12:07 WBC 13.5 H RBC 2.97 L Hgb 9.3 L Hct 27.6 L MCV MCH MCHC RDW Plt Count Lymph % (Auto) [place] % (Auto) Lymph # [place] # Seg Neutrophils % Seg Neuts % (Manual) Lymphocytes % (Manual) Seg Neutrophils # Seg Neutrophils # Man Lymphocytes # (Manual) POC ABG pH POC ABG pCO2 POC ABG pO2 Sodium Potassium Chloride 96.5 L Carbon Dioxide 32 H BUN 58 H Creatinine Glucose 191 H POC Glucose 212 H Calcium 7.5 L Phosphorus Magnesium Iron TIBC Ferritin Alkaline Phosphatase NT-Pro-B Natriuret Pep Total Protein Albumin Lipase Free T4 11/09/18 11/10/18 11/10/18 18:29 00:09 04:21 WBC RBC Hgb Hct MCV MCH MCHC RDW Plt Count Lymph % (Auto) [place] % (Auto) Lymph # [place] # Seg Neutrophils % Seg Neuts % (Manual) Lymphocytes % (Manual) Seg Neutrophils # Seg Neutrophils # Man Lymphocytes # (Manual) POC ABG pH 7.467 H POC ABG pCO2 49.9 H POC ABG pO2 76 L Sodium Potassium Chloride Carbon Dioxide BUN Creatinine Glucose POC Glucose 192 H 214 H Calcium Phosphorus Magnesium Iron TIBC Ferritin Alkaline Phosphatase NT-Pro-B Natriuret Pep Total Protein Albumin Lipase Free T4 11/10/18 11/10/18 11/10/18 04:39 04:39 06:05 WBC 14.3 H RBC 3.09 L Hgb 9.7 L Hct 28.9 L MCV MCH MCHC RDW Plt Count Lymph % (Auto) [place] % (Auto) Lymph # [place] # Seg Neutrophils % Seg Neuts % (Manual) Lymphocytes % (Manual) Seg Neutrophils # Seg Neutrophils # Man Lymphocytes # (Manual) POC ABG pH POC ABG pCO2 POC ABG pO2 Sodium Potassium Chloride 97.5 L Carbon Dioxide 31 H BUN 53 H Creatinine Glucose 196 H POC Glucose 202 H Calcium 7.7 L Phosphorus Magnesium Iron TIBC Ferritin Alkaline Phosphatase NT-Pro-B Natriuret Pep Total Protein Albumin Lipase Free T4 11/10/18 11/10/18 11/11/18 12:32 17:16 00:06 WBC RBC Hgb Hct MCV MCH MCHC RDW Plt Count Lymph % (Auto) [place] % (Auto) Lymph # [place] # Seg Neutrophils % Seg Neuts % (Manual) Lymphocytes % (Manual) Seg Neutrophils # Seg Neutrophils # Man Lymphocytes # (Manual) POC ABG pH POC ABG pCO2 POC ABG pO2 Sodium Potassium Chloride Carbon Dioxide BUN Creatinine Glucose POC Glucose 197 H 200 H 177 H Calcium Phosphorus Magnesium Iron TIBC Ferritin Alkaline Phosphatase NT-Pro-B Natriuret Pep Total Protein Albumin Lipase Free T4 11/11/18 11/11/18 11/11/18 04:43 05:24 05:50 WBC 14.1 H RBC 2.92 L Hgb 9.1 L Hct 27.0 L MCV MCH MCHC RDW Plt Count Lymph % (Auto) [place] % (Auto) Lymph # [place] # Seg Neutrophils % Seg Neuts % (Manual) Lymphocytes % (Manual) Seg Neutrophils # Seg Neutrophils # Man Lymphocytes # (Manual) POC ABG pH POC ABG pCO2 50.1 H POC ABG pO2 Sodium Potassium Chloride Carbon Dioxide BUN Creatinine Glucose POC Glucose 199 H Calcium Phosphorus Magnesium Iron TIBC Ferritin Alkaline Phosphatase NT-Pro-B Natriuret Pep Total Protein Albumin Lipase Free T4 11/11/18 11/11/18 11/11/18 05:50 12:00 17:57 WBC RBC Hgb Hct MCV MCH MCHC RDW Plt Count Lymph % (Auto) [place] % (Auto) Lymph # [place] # Seg Neutrophils % Seg Neuts % (Manual) Lymphocytes % (Manual) Seg Neutrophils # Seg Neutrophils # Man Lymphocytes # (Manual) POC ABG pH POC ABG pCO2 POC ABG pO2 Sodium Potassium 3.5 L Chloride Carbon Dioxide 34 H BUN 47 H Creatinine 0.5 L Glucose 169 H POC Glucose 168 H 194 H Calcium 8.2 L Phosphorus Magnesium Iron TIBC Ferritin Alkaline Phosphatase 142 H NT-Pro-B Natriuret Pep Total Protein 4.4 L Albumin 2.1 L Lipase Free T4 11/11/18 11/12/18 11/12/18 23:26 05:32 09:26 WBC RBC Hgb Hct MCV MCH MCHC RDW Plt Count Lymph % (Auto) [place] % (Auto) Lymph # [place] # Seg Neutrophils % Seg Neuts % (Manual) Lymphocytes % (Manual) Seg Neutrophils # Seg Neutrophils # Man Lymphocytes # (Manual) POC ABG pH POC ABG pCO2 POC ABG pO2 Sodium Potassium Chloride Carbon Dioxide BUN Creatinine Glucose POC Glucose 181 H 186 H 158 H Calcium Phosphorus Magnesium Iron TIBC Ferritin Alkaline Phosphatase NT-Pro-B Natriuret Pep Total Protein Albumin Lipase Free T4 11/12/18 11/12/18 11/12/18 11:42 17:39 23:25 WBC RBC Hgb Hct MCV MCH MCHC RDW Plt Count Lymph % (Auto) [place] % (Auto) Lymph # [place] # Seg Neutrophils % Seg Neuts % (Manual) Lymphocytes % (Manual) Seg Neutrophils # Seg Neutrophils # Man Lymphocytes # (Manual) POC ABG pH POC ABG pCO2 POC ABG pO2 Sodium Potassium Chloride Carbon Dioxide BUN Creatinine Glucose POC Glucose 141 H 183 H 147 H Calcium Phosphorus Magnesium Iron TIBC Ferritin Alkaline Phosphatase NT-Pro-B Natriuret Pep Total Protein Albumin Lipase Free T4 11/13/18 11/13/18 11/13/18 12:16 18:10 21:21 WBC RBC Hgb Hct MCV MCH MCHC RDW Plt Count Lymph % (Auto) [place] % (Auto) Lymph # [place] # Seg Neutrophils % Seg Neuts % (Manual) Lymphocytes % (Manual) Seg Neutrophils # Seg Neutrophils # Man Lymphocytes # (Manual) POC ABG pH POC ABG pCO2 POC ABG pO2 Sodium Potassium Chloride Carbon Dioxide BUN Creatinine Glucose POC Glucose 114 H 127 H 185 H Calcium Phosphorus Magnesium Iron TIBC Ferritin Alkaline Phosphatase NT-Pro-B Natriuret Pep Total Protein Albumin Lipase Free T4 11/13/18 11/14/18 11/14/18 23:11 03:28 03:28 WBC RBC Hgb Hct MCV MCH MCHC RDW Plt Count Lymph % (Auto) [place] % (Auto) Lymph # [place] # Seg Neutrophils % Seg Neuts % (Manual) Lymphocytes % (Manual) Seg Neutrophils # Seg Neutrophils # Man Lymphocytes # (Manual) POC ABG pH POC ABG pCO2 POC ABG pO2 Sodium Potassium Chloride Carbon Dioxide BUN Creatinine Glucose POC Glucose 184 H Calcium Phosphorus Magnesium Iron 31 L TIBC 173 L Ferritin 510.3 H Alkaline Phosphatase NT-Pro-B Natriuret Pep Total Protein Albumin Lipase Free T4 11/14/18 11/14/18 11/14/18 05:12 07:59 10:05 WBC 19.8 H RBC 2.67 L Hgb 8.4 L Hct 25.2 L MCV MCH MCHC RDW Plt Count Lymph % (Auto) [place] % (Auto) Lymph # [place] # Seg Neutrophils % Seg Neuts % (Manual) 96.0 H Lymphocytes % (Manual) 0 L Seg Neutrophils # Seg Neutrophils # Man 19.0 H Lymphocytes # (Manual) 0.0 L POC ABG pH 7.470 H POC ABG pCO2 POC ABG pO2 Sodium Potassium Chloride Carbon Dioxide BUN Creatinine Glucose POC Glucose 178 H Calcium Phosphorus Magnesium Iron TIBC Ferritin Alkaline Phosphatase NT-Pro-B Natriuret Pep Total Protein Albumin Lipase Free T4 11/14/18 11/14/18 11/14/18 11:40 18:03 23:15 WBC RBC Hgb Hct MCV MCH MCHC RDW Plt Count Lymph % (Auto) [place] % (Auto) Lymph # [place] # Seg Neutrophils % Seg Neuts % (Manual) Lymphocytes % (Manual) Seg Neutrophils # Seg Neutrophils # Man Lymphocytes # (Manual) POC ABG pH POC ABG pCO2 POC ABG pO2 Sodium Potassium Chloride Carbon Dioxide BUN Creatinine Glucose POC Glucose 168 H 221 H 223 H Calcium Phosphorus Magnesium Iron TIBC Ferritin Alkaline Phosphatase NT-Pro-B Natriuret Pep Total Protein Albumin Lipase Free T4 11/15/18 11/15/18 11/15/18 05:29 11:33 12:13 WBC RBC Hgb Hct MCV MCH MCHC RDW Plt Count Lymph % (Auto) [place] % (Auto) Lymph # [place] # Seg Neutrophils % Seg Neuts % (Manual) Lymphocytes % (Manual) Seg Neutrophils # Seg Neutrophils # Man Lymphocytes # (Manual) POC ABG pH POC ABG pCO2 46.1 H POC ABG pO2 107 H Sodium Potassium Chloride Carbon Dioxide BUN Creatinine Glucose POC Glucose 210 H 199 H Calcium Phosphorus Magnesium Iron TIBC Ferritin Alkaline Phosphatase NT-Pro-B Natriuret Pep Total Protein Albumin Lipase Free T4 11/15/18 11/15/18 11/15/18 14:32 17:45 23:29 WBC RBC Hgb Hct MCV MCH MCHC RDW Plt Count Lymph % (Auto) [place] % (Auto) Lymph # [place] # Seg Neutrophils % Seg Neuts % (Manual) Lymphocytes % (Manual) Seg Neutrophils # Seg Neutrophils # Man Lymphocytes # (Manual) POC ABG pH POC ABG pCO2 POC ABG pO2 Sodium 149 H Potassium 3.1 L Chloride 109.2 H Carbon Dioxide BUN 36 H Creatinine 0.5 L Glucose 164 H POC Glucose 154 H 163 H Calcium 7.5 L Phosphorus Magnesium Iron TIBC Ferritin Alkaline Phosphatase NT-Pro-B Natriuret Pep Total Protein Albumin Lipase Free T4 11/16/18 11/16/18 11/16/18 05:54 12:05 12:57 WBC RBC Hgb Hct MCV MCH MCHC RDW Plt Count Lymph % (Auto) [place] % (Auto) Lymph # [place] # Seg Neutrophils % Seg Neuts % (Manual) Lymphocytes % (Manual) Seg Neutrophils # Seg Neutrophils # Man Lymphocytes # (Manual) POC ABG pH POC ABG pCO2 POC ABG pO2 Sodium 150 H Potassium 3.0 L Chloride 109.0 H Carbon Dioxide BUN 41 H Creatinine 0.5 L Glucose 158 H POC Glucose 168 H 176 H Calcium 7.6 L Phosphorus Magnesium Iron TIBC Ferritin Alkaline Phosphatase NT-Pro-B Natriuret Pep Total Protein Albumin Lipase Free T4 11/16/18 11/16/18 11/17/18 16:49 23:22 04:25 WBC 16.2 H RBC 2.72 L Hgb 8.7 L Hct 25.9 L MCV MCH MCHC RDW 15.6 H Plt Count Lymph % (Auto) [place] % (Auto) Lymph # [place] # Seg Neutrophils % Seg Neuts % (Manual) 97.0 H Lymphocytes % (Manual) 1.0 L Seg Neutrophils # Seg Neutrophils # Man 15.7 H Lymphocytes # (Manual) 0.2 L POC ABG pH POC ABG pCO2 POC ABG pO2 Sodium Potassium Chloride Carbon Dioxide BUN Creatinine Glucose POC Glucose 163 H 230 H Calcium Phosphorus Magnesium Iron TIBC Ferritin Alkaline Phosphatase NT-Pro-B Natriuret Pep Total Protein Albumin Lipase Free T4 11/17/18 11/17/18 11/17/18 04:25 05:56 12:39 WBC RBC Hgb Hct MCV MCH MCHC RDW Plt Count Lymph % (Auto) [place] % (Auto) Lymph # [place] # Seg Neutrophils % Seg Neuts % (Manual) Lymphocytes % (Manual) Seg Neutrophils # Seg Neutrophils # Man Lymphocytes # (Manual) POC ABG pH POC ABG pCO2 POC ABG pO2 Sodium 152 H Potassium 3.4 L Chloride 109.9 H Carbon Dioxide 32 H BUN 40 H Creatinine 0.5 L Glucose 155 H POC Glucose 173 H 193 H Calcium 7.9 L Phosphorus Magnesium Iron TIBC Ferritin Alkaline Phosphatase NT-Pro-B Natriuret Pep Total Protein Albumin Lipase Free T4 11/17/18 11/17/18 11/18/18 17:08 23:06 04:26 WBC 18.3 H RBC 2.52 L Hgb 8.0 L Hct 24.5 L MCV MCH MCHC RDW 16.0 H Plt Count Lymph % (Auto) [place] % (Auto) Lymph # [place] # Seg Neutrophils % Seg Neuts % (Manual) 96.0 H Lymphocytes % (Manual) 0 L Seg Neutrophils # Seg Neutrophils # Man 17.6 H Lymphocytes # (Manual) 0.0 L POC ABG pH POC ABG pCO2 POC ABG pO2 Sodium Potassium Chloride Carbon Dioxide BUN Creatinine Glucose POC Glucose 203 H 167 H Calcium Phosphorus Magnesium Iron TIBC Ferritin Alkaline Phosphatase NT-Pro-B Natriuret Pep Total Protein Albumin Lipase Free T4 11/18/18 11/18/18 11/18/18 04:26 05:29 13:52 WBC RBC Hgb Hct MCV MCH MCHC RDW Plt Count Lymph % (Auto) [place] % (Auto) Lymph # [place] # Seg Neutrophils % Seg Neuts % (Manual) Lymphocytes % (Manual) Seg Neutrophils # Seg Neutrophils # Man Lymphocytes # (Manual) POC ABG pH POC ABG pCO2 POC ABG pO2 Sodium 149 H Potassium Chloride 110.5 H Carbon Dioxide BUN 41 H Creatinine 0.4 L Glucose 127 H POC Glucose 128 H 109 H Calcium 7.9 L Phosphorus Magnesium Iron TIBC Ferritin Alkaline Phosphatase NT-Pro-B Natriuret Pep Total Protein Albumin Lipase Free T4 11/18/18 11/18/18 11/19/18 18:05 23:33 05:34 WBC RBC Hgb Hct MCV MCH MCHC RDW Plt Count Lymph % (Auto) [place] % (Auto) Lymph # [place] # Seg Neutrophils % Seg Neuts % (Manual) Lymphocytes % (Manual) Seg Neutrophils # Seg Neutrophils # Man Lymphocytes # (Manual) POC ABG pH POC ABG pCO2 POC ABG pO2 Sodium Potassium Chloride Carbon Dioxide BUN Creatinine Glucose POC Glucose 174 H 178 H 116 H Calcium Phosphorus Magnesium Iron TIBC Ferritin Alkaline Phosphatase NT-Pro-B Natriuret Pep Total Protein Albumin Lipase Free T4 11/19/18 11/19/18 11/19/18 08:35 08:35 11:31 WBC 22.3 H RBC 2.80 L Hgb 8.9 L Hct 26.7 L MCV MCH MCHC RDW 16.5 H Plt Count Lymph % (Auto) [place] % (Auto) Lymph # [place] # Seg Neutrophils % Seg Neuts % (Manual) Lymphocytes % (Manual) Seg Neutrophils # Seg Neutrophils # Man Lymphocytes # (Manual) POC ABG pH POC ABG pCO2 POC ABG pO2 Sodium 147 H Potassium Chloride 107.2 H Carbon Dioxide BUN 35 H Creatinine 0.3 L Glucose 117 H POC Glucose 161 H Calcium 7.9 L Phosphorus Magnesium Iron TIBC Ferritin Alkaline Phosphatase NT-Pro-B Natriuret Pep Total Protein Albumin Lipase Free T4 11/19/18 11/20/18 11/20/18 23:43 04:19 04:19 WBC 13.7 H RBC 2.50 L Hgb 8.0 L Hct 24.2 L MCV MCH MCHC RDW 16.9 H Plt Count Lymph % (Auto) [place] % (Auto) Lymph # [place] # Seg Neutrophils % Seg Neuts % (Manual) Lymphocytes % (Manual) Seg Neutrophils # Seg Neutrophils # Man Lymphocytes # (Manual) POC ABG pH POC ABG pCO2 POC ABG pO2 Sodium Potassium Chloride Carbon Dioxide BUN 35 H Creatinine 0.3 L Glucose 178 H POC Glucose 243 H Calcium 7.9 L Phosphorus Magnesium Iron TIBC Ferritin Alkaline Phosphatase NT-Pro-B Natriuret Pep Total Protein Albumin Lipase Free T4 11/20/18 05:38 WBC RBC Hgb Hct MCV MCH MCHC RDW Plt Count Lymph % (Auto) [place] % (Auto) Lymph # [place] # Seg Neutrophils % Seg Neuts % (Manual) Lymphocytes % (Manual) Seg Neutrophils # Seg Neutrophils # Man Lymphocytes # (Manual) POC ABG pH POC ABG pCO2 POC ABG pO2 Sodium Potassium Chloride Carbon Dioxide BUN Creatinine Glucose POC Glucose 202 H Calcium Phosphorus Magnesium Iron TIBC Ferritin Alkaline Phosphatase NT-Pro-B Natriuret Pep Total Protein Albumin Lipase Free T4 Allied health notes reviewed: nursing
[2018-11-20] MEDS: ATIVAN IV PRN (11:13)
[2018-11-20] MEDS: PREVACID SOLUTAB FEEDTUBE SCH (11:57)
--- NOTE | 2018-11-20 15:09 | Progress Note ---
Assessment and Plan Cultures: Blood cultures 10/22/2018 no growth Tracheal asp cultures 10/28/2018: E.coli and Stenotrophomonas. 10/30/2018 blood culture: Ayla glabrata 11/03/2018 fungal blood culture: no growth thus far 11/18/2018 Sputum GNRs Assessment: 73 y/o female with history of COPD, hypertension, lupus, fibromyalgia, opioid dependence admitted on 10/22/2018 due to 3-day history of intractable nausea, vomiting, diarrhea: 1) SIRS v/s sepsis: fever resolved. Noted leukocytosis 19-->16 -->18-->22-->13K on iv steroids. ? pneumonia however repeat CXR no consolidation. ? C diff colitis. Etiology initially most likely aspiration pneumonia +/- intra-abdominal source from contained gastric perforation, then with Candidemia. 2) Candidemia due to Ayla glabrata: in the setting of TPN and PICC line. PICC removed. Has temporary central line. TTE not optimal quality, but repeat fungal blood cultures are negative, so no need for LAUREN. S/p micafungin/fluconazole 14 days course. 3) Acute respiratory failure: pneumonia and fluid overload. Extubated 11/05/2018 and now reintubated 11/07/2018. Planned for trach. 4) Presumed aspiration pneumonia v/s HAP: Tracheal asp cultures 10/28/2018 with E.coli and Stenotrophomonas. Stenotrophomonas is a known colonizer in patients with structural lung disease or tracheostomy tubes/ET tubes, not generally considered very virulent. Given her prolonged and complicated hospital stay, completed a 10 day course of abx. Repeat sputum cx + GNR but repeat CXR negative. 5) Contained gastric perforation: Gen Surgery following. Planned for conservative management. Follow up CT showed no contrast leak. Now on tube feeds. 6) ADWOA: improved. 7) Diarrhea: ? tfeeds not better Recommendations: - cancel CT abd leukocytosis better - monitor diarrhea - monitor off antibiotics - midline to be removed infiltrated will follow Ame Garcia MD Infectious Diseases [employer] [facility] M [phone] O [phone] Subjective Date of service: 11/20/18 Principal diagnosis: anemia Interval history: Remains on vent via trach, alert, follows commands, no fever. +diarrhea +tachycardic on monitor ROS unable to obtain Objective - Exam Narrative Exam: General appearance: alert follows in NAD Eyes: anicteric sclerae, moist conjunctivae; no lid-lag; PERRLA HENT: Atraumatic; oropharynx limited Neck: Trach no secretion Lungs: distant BS CV: tachycardic Abdomen: Soft, non-tender Extremities: no edema, cyanosis Skin: Normal temperature, turgor and texture; no rash, ulcers or subcutaneous nodules Psych: no agitated Neuro:alert Rectal tube w diarrhea - Constitutional Vitals: Vital Signs Temp Pulse Resp BP Pulse Ox 97.7 F 84 18 98/35 97 11/20/18 08:00 11/20/18 12:00 11/20/18 07:46 11/20/18 12:00 11/20/18 12:00 Temperature -Last 24 Hours Temperature 97.7 F Temperature 98.7 F Temperature 98.8 F Temperature 98.1 F Temperature 98.4 F - Labs CBC & Chem 7: 11/20/18 04:19 11/20/18 04:19 Labs: Abnormal lab results 11/19/18 11/20/18 11/20/18 Range/Units 23:43 04:19 04:19 WBC 13.7 H (4.5-11.0) K/mm3 RBC 2.50 L (3.65-5.03) M/mm3 Hgb 8.0 L (10.1-14.3) gm/dl Hct 24.2 L (30.3-42.9) % RDW 16.9 H (13.2-15.2) % BUN 35 H (7-17) mg/dL Creatinine 0.3 L (0.7-1.2) mg/dL Glucose 178 H (65-100) mg/dL POC Glucose 243 H (70-105) Calcium 7.9 L (8.4-10.2) mg/dL 11/20/18 Range/Units 05:38 WBC (4.5-11.0) K/mm3 RBC (3.65-5.03) M/mm3 Hgb (10.1-14.3) gm/dl Hct (30.3-42.9) % RDW (13.2-15.2) % BUN (7-17) mg/dL Creatinine (0.7-1.2) mg/dL Glucose (65-100) mg/dL POC Glucose 202 H (70-105) Calcium (8.4-10.2) mg/dL
[2018-11-20] MEDS ORDERED: SUBLIMAZE ONE (16:10)
[2018-11-20] MEDS ORDERED: ATIVAN ONE (16:10)
[2018-11-20] MEDS ORDERED: SUBLIMAZE IM ONE (16:13)
[2018-11-20] MEDS ORDERED: ATIVAN IM ONE (16:15)
--- NOTE | 2018-11-20 16:37 | Procedure Note ---
Date of procedure: 11/20/18 Pre-op diagnosis: No IV access Post-op diagnosis: same Procedure: Right IJ placement After obtaining informed consent, patient prepped and draped in sterile fashion. Right IJ visualized under US. Lidocaine used and the finder needle with good return. Wire threaded and skin bia made. Needle removed and then dilator used. Removed and then catheter placed with wire coming out of brown port. Good blood return and all ports flush. Sutured in and CXR ordered. Patient tolerated procedure well with no immediate post-op complications. This line was placed as she lost IV access, no peripherals were obtainable or able to be seen by IV team and given the time of day (Per IV team they leave at 1600) they would not attempt to place picc as this would be past their allotted hours). This is not a moth exterminator solution and one will have to be determined. Anesthesia: local Surgeon: CHARLES JOINER Estimated blood loss: none Pathology: none Condition: stable Disposition: ICU
--- NOTE | 2018-11-20 17:58 | XRay Report ---
PROCEDURE: XR CHEST 1V AP TECHNIQUE: Chest radiograph single view. HISTORY: Line placement (Central Line) COMPARISONS: Chest x-ray dated November 18, 2018 . FINDINGS: There has been interval placement of a right internal jugular venous catheter with the tip projected in the region of the cavoatrial junction There is no evidence of pneumothorax. There continues to be pulmonary consolidation in the left lung base with probable left pleural fluid collection. There continues to be prominence of the interstitial markings in both lungs which may represent inter stitial edema or infiltrates. The cardiomediastinal silhouette is not significantly changed. A tracheostomy tube is not significantly changed. IMPRESSION: 1. Interval placement of right internal jugular venous catheter with the tip projected in the region of the caval atrial junction. No evidence of pneumothorax. 2. Otherwise no significant change since previous chest x-ray dated November 18, 2018 with persistent pul monary consolidation left lung base with probable left pleural fluid collection This document is electronically signed by Lorna Resendiz MD., November 20 2018 05:56:31 PM ET
--- NOTE | 2018-11-20 19:44 | XRay Report ---
PROCEDURE: XR ABDOMEN 1V AP TECHNIQUE: Abdominal radiograph, single view. HISTORY: Feeding tube placement COMPARISONS: None . FINDINGS: Feeding tube in the stomach with the distal tip at the level of the body of the stomach. Nonspecific bowel gas pattern. Large left pleural effusion. IMPRESSION: Feeding tube in the stomach with the distal tip at the level of the body of the stomach. This document is electronically signed by Elier Burgess MD., November 20 2018 07:42:33 PM ET
[2018-11-20] MEDS: SODIUM CHLORIDE FLUSH SYRINGE 10 ML IV SCH (22:16)
[2018-11-20] MEDS: LOVENOX SUB-Q SCH (22:17)
[2018-11-21] MEDS: DILAUDID IV PRN ×3 (00:08→09:01)
[2018-11-21] MEDS: HumaLOG SUB-Q SCH ×4 (00:11→14:28)
[2018-11-21] MEDS: NEURONTIN PO SCH ×4 (05:36→23:03)
[2018-11-21 06:40] LABS: Hematocrit 26.8 % (30.3-42.9); Hemoglobin 8.9 gm/dl (10.1-14.3); Mean Corpuscular HGB Conc 33 % (30-34); Mean Corpuscular Volume 97 fl (79-97); Platelet Count 308 K/mm3 (140-440); Red Blood Count 2.76 M/mm3 (3.65-5.03); Red Cell Distribution Width 16.8 % (13.2-15.2)
[2018-11-21 06:58] LABS: BUN/Creatinine Ratio 110; Blood Urea Nitrogen 33 mg/dL (7-17); Calcium 8.1 mg/dL (8.4-10.2); Hemolysis Index 4
[2018-11-21] MEDS: PULMICORT IH SCH ×2 (07:16→19:10)
[2018-11-21] MEDS: BROVANA NEBU IH SCH ×2 (07:16→19:10)
[2018-11-21] MEDS: INDERAL PO SCH ×5 (08:18→22:45)
--- NOTE | 2018-11-21 09:14 | Progress Note ---
Assessment and Plan Assessment and plan: Patient is 73-year-old female with history of hypertension, lupus, fibromyalgia, COPD, opioid dependence (follows Dr. Felix Muñiz at pain clinic) who presented to [facility] ED with complaints of intractable nausea, vomiting, diarrhea for 3 days. On initial presentation to the ED she was found to be tachycardiac with heart rate 113 BPM, leukocytosis with WBC 11.5, elevated BUN/Cr 51/2.1. Patient has history of COPD and at baseline does not require home oxygen use. She was admitted to [facility]. GI was consulted, she was evaluated. CT Abdomen revealed partial SBO versus ileus therefore surgeon consulted. Also patient became more short of breath, placed on BIPAP with no improvement then intubated 10/26/18 for acute resp failure and transferred to ICU. Obstruction series completed on 10/27 which showed improved but small bowel and stomach dilatation. Follow-up series on 10/28 showed no significant change since previous study. NG tube was removed due to patient not tolerating/refusing. Patient was placed back on BiPAP but decompensated on the night of 10/28/18 and had to be reintubated. Patient currently on mechanical ventilation. Patient has had further complications now with findings consistent with contained gastric perforation on repeat CT scan 10/30, managed conservatively. She was extubated 11/05, re-intubated 11/07/18. This is 3rd intubation so Tracheostomy was recommended and done 11/13/18. No PEG yet, for at least 2 weeks because of recent gastric perforation. Acute hypoxic respiratory failure. Patient was reintubated on 10/28/18 and currently on mechanical ventilation. Etiology secondary to COPD/pneumonia/sepsis. Extubated 11/05, re-intubated 11/07 Wean mechanical ventilation per pulmonary. Patient Initiated on T piece trial yesterday, monitor during the day. The patient tolerated 4 hours T piece yesterday. Continue to be stressed today and mechanical vent at nighttime. Gastric perforation. Repeat CT scan on 10/30 revealed pSBO resolved, no evidence for bowel ischemia. Small contained gastric perforation at lesser curve. No gross free air or contrast extravasation. Surgery recommends conservative management Sepsis/candidemia. Etiology initially most likely related to aspiration pneumonia and gastric perforation. Patient now with Ayla glabrata. PICC line removed. Repeat fungal cultures are negative. Complete a 14 day course of antifungals. Removed current central line and inserted midline. Thrombocytopenia. Etiology likely secondary to sepsis. Hematology following. Bilateral upper lobe/aspiration pneumonia. Sputum culture positive for Escherichia coli and stenotrophomonas. Bilateral pleural effusions. Acute exacerbation COPD. Scheduled Duo Nebs and Pulmicort; albuterol when necessary Presumed aspiration pneumonia versus healthcare associated pneumonia. Tracheal aspirate cultures from 10/28 with Escherichia coli and stenotrophomonas. Completed antibiotics. Hypokalemia. Replete potassium as needed. Hypertension. IV hydralazine when necessary Lupus. Supportive care Fibromyalgia. supportive care History of opioid dependence ADWOA due to vasomotor nephropathy, now resolved Full code status Plan is for LTAC placement The high probability of a clinically significant, sudden or life threatening deterioration of the [GI and respiratory] system(s) required my full and direct attention, intervention and personal management. The aggregate critical care time was [34] minutes. This time is in addition to time spent performing reported procedures but includes the following: [x] Data Review and interpretation [x] Patient assessment and monitoring of vital signs [x] Documentation [x] Medication orders and management History Interval history: Patient had trach on 11/13 Still has diarrhea No abd pain currently anxious Hospitalist Physical - Physical exam Narrative exam: Gen: Not in distress, tracheostomy HEENT: Normocephalic, atraumatic, NG tube Neck: supple, no JVD Heart: S1 and S2 reg, no murmurs, rubs or gallop Lungs: Clear bilat, decreased breath sounds bilat. no wheeze Abd: soft, non tender, no rebound tenderness, non distended, BS present Ext: No edema, no clubbing, no cyanosis, Neuro: Awake,alert, follows commands, moves all ext - Constitutional Vitals: Temp Pulse Resp BP Pulse Ox 97.9 F 94 H 14 115/50 100 11/21/18 04:00 11/21/18 08:19 11/21/18 07:27 11/21/18 08:19 11/21/18 07:27 General appearance: Present: other (intubated, opens eyes to commands) Results - Labs CBC & Chem 7: 11/21/18 05:49 11/21/18 05:49 Labs: Laboratory Last Values WBC 16.1 K/mm3 (4.5-11.0) H 11/21/18 05:49 RBC 2.76 M/mm3 (3.65-5.03) L 11/21/18 05:49 Hgb 8.9 gm/dl (10.1-14.3) L 11/21/18 05:49 Hct 26.8 % (30.3-42.9) L 11/21/18 05:49 MCV 97 fl (79-97) 11/21/18 05:49 MCH 32 pg (28-32) 11/21/18 05:49 MCHC 33 % (30-34) 11/21/18 05:49 RDW 16.8 % (13.2-15.2) H 11/21/18 05:49 Plt Count 308 K/mm3 (140-440) 11/21/18 05:49 Lymph % (Auto) Food Safety Auditor 11/14/18 07:59 [place] % (Auto) Food Safety Auditor 11/14/18 07:59 Eos % (Auto) Food Safety Auditor 11/14/18 07:59 Baso % (Auto) Food Safety Auditor 11/14/18 07:59 Lymph # Food Safety Auditor 11/14/18 07:59 [place] # Food Safety Auditor 11/14/18 07:59 Eos # Food Safety Auditor 11/14/18 07:59 Baso # Food Safety Auditor 11/14/18 07:59 Add Manual Diff Complete 11/18/18 04:26 Total Counted 100 11/18/18 04:26 Seg Neutrophils % Food Safety Auditor 11/17/18 04:25 Seg Neuts % (Manual) 96.0 % (40.0-70.0) H 11/18/18 04:26 1.0 % 11/18/18 04:26 0 % (13.4-35.0) L 11/18/18 04:26 Reactive Lymphs % (Man) 0 % 11/18/18 04:26 3.0 % (0.0-7.3) 11/18/18 04:26 0 % (0.0-4.3) 11/18/18 04:26 0 % (0.0-1.8) 11/18/18 04:26 0 % 11/18/18 04:26 0 % 11/18/18 04:26 0 % 11/18/18 04:26 0 % 11/18/18 04:26 Nucleated RBC % Not Reportable 11/18/18 04:26 Seg Neutrophils # Food Safety Auditor 11/14/18 07:59 Seg Neutrophils # Man 17.6 K/mm3 (1.8-7.7) H 11/18/18 04:26 Band Neutrophils # 0.2 K/mm3 11/18/18 04:26 0.0 K/mm3 (1.2-5.4) L 11/18/18 04:26 Abs React Lymphs (Man) 0.0 K/mm3 11/18/18 04:26 0.5 K/mm3 (0.0-0.8) 11/18/18 04:26 0.0 K/mm3 (0.0-0.4) 11/18/18 04:26 0.0 K/mm3 (0.0-0.1) 11/18/18 04:26 0.0 K/mm3 11/18/18 04:26 0.0 K/mm3 11/18/18 04:26 0.0 K/mm3 11/18/18 04:26 Blast Cells # 0.0 K/mm3 11/18/18 04:26 WBC Morphology Not Reportable 11/18/18 04:26 WBC Morphology TNR 11/18/18 04:26 Hypersegmented Neuts Not Reportable 11/18/18 04:26 Hyposegmented Neuts Not Reportable 11/18/18 04:26 Hypogranular Neuts Not Reportable 11/18/18 04:26 Not Reportable 11/18/18 04:26 Not Reportable 11/18/18 04:26 Not Reportable 11/18/18 04:26 Not Reportable 11/18/18 04:26 Not Reportable 11/18/18 04:26 Not Reportable 11/18/18 04:26 Consistent w auto 11/18/18 04:26 Not Reportable 11/18/18 04:26 Plt Clumps, EDTA Not Reportable 11/18/18 04:26 Not Reportable 11/18/18 04:26 Not Reportable 11/18/18 04:26 Not Reportable 11/18/18 04:26 Plt Morphology Comment Not Reportable 11/18/18 04:26 RBC Morphology Not Reportable 11/18/18 04:26 Dimorphic RBCs Not Reportable 11/18/18 04:26 Not Reportable 11/18/18 04:26 Not Reportable 11/18/18 04:26 Not Reportable 11/18/18 04:26 Not Reportable 11/18/18 04:26 Not Reportable 11/18/18 04:26 Not Reportable 11/18/18 04:26 Not Reportable 11/18/18 04:26 Not Reportable 11/18/18 04:26 Not Reportable 11/18/18 04:26 Not Reportable 11/18/18 04:26 Not Reportable 11/18/18 04:26 Not Reportable 11/18/18 04:26 Few 11/17/18 04:25 Not Reportable 11/18/18 04:26 Not Reportable 11/18/18 04:26 Not Reportable 11/18/18 04:26 Not Reportable 11/18/18 04:26 Not Reportable 11/18/18 04:26 Not Reportable 11/18/18 04:26 Not Reportable 11/18/18 04:26 Acanthocytes (Spur) Not Reportable 11/18/18 04:26 Rouleaux Not Reportable 11/18/18 04:26 Not Reportable 11/18/18 04:26 Not Reportable 11/18/18 04:26 Not Reportable 11/18/18 04:26 Not Reportable 11/18/18 04:26 Hem Pathologist Commnt No 11/18/18 04:26 Heparin Anti-Xa, Unfract Negative (Negative) 10/30/18 13:58 POC ABG pH 7.446 (7.35-7.45) 11/15/18 11:33 POC ABG pCO2 46.1 (35-45) H 11/15/18 11:33 POC ABG pO2 107 (80-105) H 11/15/18 11:33 POC ABG HCO3 31.8 (22-26 mml/L) 11/15/18 11:33 POC ABG Total CO2 33 (23-27mmol/L) 11/15/18 11:33 POC ABG O2 Sat 98 11/15/18 11:33 POC ABG Base Excess 8 ((-2) - (+3)mmol/L) 11/15/18 11:33 30 % 11/15/18 11:33 Sodium 148 mmol/L (137-145) H 11/21/18 05:49 Potassium 4.6 mmol/L (3.6-5.0) 11/21/18 05:49 Chloride 108.1 mmol/L (98-107) H 11/21/18 05:49 Carbon Dioxide 30 mmol/L (22-30) 11/21/18 05:49 15 mmol/L 11/21/18 05:49 BUN 33 mg/dL (7-17) H 11/21/18 05:49 0.3 mg/dL (0.7-1.2) L 11/21/18 05:49 Estimated GFR > 60 ml/min 11/21/18 05:49 110 % 11/21/18 05:49 Glucose 133 mg/dL (65-100) H 11/21/18 05:49 POC Glucose 162 (70-105) H 11/21/18 05:37 Lactic Acid 1.60 mmol/L (0.7-2.0) 10/26/18 15:03 Calcium 8.1 mg/dL (8.4-10.2) L 11/21/18 05:49 Phosphorus 2.80 mg/dL (2.5-4.5) 11/11/18 05:50 Magnesium 1.80 mg/dL (1.7-2.3) 11/11/18 05:50 Iron 31 ug/dL (37-170) L 11/14/18 03:28 TIBC 173 mcg/dL (250-450) L 11/14/18 03:28 510.3 ng/mL (13.0-400.0) H 11/14/18 03:28 0.30 mg/dL (0.1-1.2) 11/11/18 05:50 AST 26 units/L (5-40) 11/11/18 05:50 ALT 28 units/L (7-56) 11/11/18 05:50 142 units/L (35-129) H 11/11/18 05:50 NT-Pro-B Natriuret Pep 4507 pg/mL (0-900) H 11/07/18 04:55 4.4 g/dL (6.3-8.2) L 11/11/18 05:50 2.1 g/dL (3.9-5) L 11/11/18 05:50 0.9 % 11/11/18 05:50 Triglycerides 132 mg/dL (2-149) 11/01/18 06:40 10 units/L (13-60) L 10/22/18 15:54 See scanned result 10/30/18 13:58 TSH 3.150 mlU/mL (0.270-4.200) 10/31/18 17:00 Free T4 0.49 ng/dL (0.76-1.46) L 10/31/18 17:00 Dulce (Yellow) 10/22/18 19:10 Clear (Clear) 10/22/18 19:10 5.0 (5.0-7.0) 10/22/18 19:10 Ur Specific [place] 1.018 (1.003-1.030) 10/22/18 19:10 30 mg/dl mg/dL (Negative) 10/22/18 19:10 Neg mg/dL (Negative) 10/22/18 19:10 Tr mg/dL (Negative) 10/22/18 19:10 Neg (Negative) 10/22/18 19:10 Neg (Negative) 10/22/18 19:10 Neg (Negative) 10/22/18 19:10 < 2.0 mg/dL (<2.0) 10/22/18 19:10 Ur Leukocyte Esterase Neg (Negative) 10/22/18 19:10 1.0 /HPF (0.0-6.0) 10/22/18 19:10 3.0 /HPF (0.0-6.0) 10/22/18 19:10 Heparin-induced Plt Ab Negative (Negative) 10/30/18 13:58 UF Heparin High Dose 0 % Release 10/30/18 13:58 KIMO UFH Low Dose 0.1 0 % Release 10/30/18 13:58 KIMO UFH Low Dose 0.5 0 % Release 10/30/18 13:58 Active Medications - Current Medications Current Medications: Generic Name Dose Route Start Last Admin Trade Name Freq PRN Reason Stop Dose Admin Acetaminophen 650 mg 10/22/18 20:10 11/17/18 20:17 Tylenol PO 650 mg Q4H PRN Administration Pain MILD(1-3)/Fever >100.5/PORTER Albuterol 2.5 mg 10/22/18 20:14 11/05/18 16:35 Proventil IH 2.5 mg Q4HRT PRN Administration Shortness Of Breath Lipase/Protease/Amylase 1 each 11/05/18 10:[address] 10,500 Unit FEEDTUBE PRN PRN For Clogged Feeding Tube Arformoterol Tartrate 15 mcg 11/05/18 20:00 11/21/18 07:16 Brovana Nebu IH 15 mcg Q12HRT RICK Administration Budesonide 0.5 mg 10/23/18 08:00 11/21/18 07:16 Pulmicort IH 0.5 mg Q12HRT RICK Administration Clonazepam 1 mg 11/18/18 11:00 11/21/18 08:20 Klonopin PO 1 mg TID RICK Administration Dextrose 50 ml 10/26/18 23:40 10/27/18 00:20 D50w (25gm) Syringe IV 50 ml PRN PRN Administration Hypoglycemia Enoxaparin Sodium 40 mg 11/14/18 22:00 11/20/18 22:17 Lovenox SUB-Q 40 mg QDAY@2200 RICK Administration Fentanyl 50 mcg 11/18/18 11:00 11/18/18 11:00 Duragesic TD 50 mcg Q3D RICK Administration Gabapentin 600 mg 11/12/18 10:00 11/21/18 05:36 Neurontin PO 600 mg Q8HR RICK Administration Hydralazine HCl 10 mg 10/22/18 21:41 11/07/18 00:04 Apresoline IV 10 mg Q4HR PRN Administration Blood Pressure Hydromorphone HCl 1 mg 11/12/18 09:55 11/21/18 09:01 Dilaudid IV 1 mg Q4H PRN Administration Pain , Severe (7-10) Hydrophilic Ointment 1 applic 11/07/18 09:14 Vaseline Lip Therapy TP Q2HR PRN Dry Lips Insulin Human Isoph/Insulin Regular 12 unit 11/10/18 22:00 11/21/18 00:20 Humulin 70/30 SUB-Q 12 unit BID RICK Administration Insulin Human Lispro 0 unit 10/29/18 12:00 11/21/18 05:35 Humalog SUB-Q 2 unit Q6HR RICK Administration Protocol Lansoprazole 30 mg 11/17/18 10:00 11/20/18 11:57 Prevacid Solutab FEEDTUBE 30 mg QDAY RICK Administration Lorazepam 0.5 mg 11/18/18 11:00 11/20/18 11:13 Ativan IV 0.5 mg Q6H PRN Administration Anxiety Methylprednisolone Sodium Succinate 20 mg 11/20/18 22:00 11/20/18 22:18 Solu-Medrol IV 20 mg Q12HR RICK Administration Multi-Ingred Cream/Lotion/Oil/Oint 1 applic 11/07/18 09:14 Artificial Tears Ophth Oint OU Q4HR PRN Dry Eye(s) Ondansetron HCl 4 mg 10/24/18 10:05 10/25/18 17:26 Zofran IV 4 mg Q6H PRN Administration Nausea And Vomiting Phenol 1 spray 10/28/18 10:16 Chloraseptic MM PRN PRN Sore Throat Promethazine HCl 25 mg 10/22/18 20:10 10/22/18 21:21 Phenergan CO 25 mg Q6H PRN Administration Nausea And Vomiting Propranolol HCl 20 mg 11/18/18 14:00 11/21/18 08:19 Inderal PO 20 mg TID RICK Administration Quetiapine Fumarate 300 mg 11/12/18 10:00 11/20/18 11:57 Seroquel PO 300 mg DAILY RICK Administration Simple Syrup 15 ml 11/05/18 10:13 Simple Syrup FEEDTUBE PRN PRN Hypoglycemia Simple Syrup 30 ml 11/05/18 10:13 Simple Syrup FEEDTUBE PRN PRN Hypoglycemia Sodium Bicarbonate 325 mg 11/05/18 10:13 Sodium Bicarbonate FEEDTUBE PRN PRN For Clogged Feeding Tube Sodium Chloride 10 ml 10/22/18 22:00 11/20/18 22:16 Sodium Chloride Flush Syringe 10 Ml IV 10 ml BID RICK Administration Sodium Chloride 10 ml 10/22/18 20:10 11/09/18 14:29 Sodium Chloride Flush Syringe 10 Ml IV 10 ml PRN PRN Administration LINE FLUSH Nutrition/Malnutrition Assess - Dietary Evaluation Nutrition/Malnutrition Findings: Nutrition Notes Start: 10/23/18 17:03 Freq: Status: Active Protocol: Document 11/19/18 15:57 RM (Rec: 11/19/18 16:01 RM [id number]) Nutrition Notes Initial or Follow up Reassessment Other Pertinent Diagnosis Gastric peforation, bilat pneu Current Diet TF - Vital AF 1.2 at 45 ml/hr Labs/Tests Reviewed Pertinent Medications Solu-Medrol Height 5 ft 3 in Weight 65.9 kg [place] Body Weight (kg) 52.27 BMI 25.7 Subjective/Other Information Dr. Grey concern about persistent diarrhea and request to TF formula reevaluation relayed to news writer . TF formula in use likely not cause of diarrhea but will try switching to TF without fiber. Burn Absent Trauma Absent #1 Nutrition Diagnosis Inadequate oral intake Diagnosis Progress(for reassessment Continues documentation) Is patient on ventilator? Yes Is Patient Ambulatory and/or Out of Bed No REE-(Barto-St. Jeor-confined to bed) 1371.876 Kcal/Kg value to use for calculation 25 Approximate Energy Requirements Using 1648 kcal/Kg Calculation Used for Recommendations Barto-St Jeor Additional Notes Pro needs 1.2-2g/kg (based on UBW): 60-100g/day Fluid needs 1ml/kcal Nutrition Intervention Nutrition Support: Promote 70 ml/hr. Water flush of 50 ml q 4 hrs. Kcal 1,680 Protein (gm) 105 Fluid (mL) 1,410 Fiber (gm) 0 Goal #1 TF tolerance Goal #2 TF to meet at least 75% energy and pro needs Follow-Up By: 11/21/18 Additional Comments Follow for TF tolerance, diarrhea
--- NOTE | 2018-11-21 10:29 | Progress Note ---
Assessment and Plan Cultures: Blood cultures 10/22/2018 no growth Tracheal asp cultures 10/28/2018: E.coli and Stenotrophomonas. 10/30/2018 blood culture: Ayla glabrata 11/03/2018 fungal blood culture: no growth thus far 11/18/2018 Sputum GNRs Assessment: 73 y/o female with history of COPD, hypertension, lupus, fibromyalgia, opioid dependence admitted on 10/22/2018 due to 3-day history of intractable nausea, vomiting, diarrhea: 1) SIRS v/s sepsis: fever resolved. Noted leukocytosis 18-->22-->13-->16K on iv steroids. ? pneumonia however repeat CXR no consolidation. ? C diff colitis. Etiology initially most likely aspiration pneumonia +/- intra-abdominal source from contained gastric perforation, then with Candidemia. 2) Candidemia due to Ayla glabrata: in the setting of TPN and PICC line. PICC removed. Has temporary central line. TTE not optimal quality, but repeat fungal blood cultures are negative, so no need for LAUREN. S/p micafungin/fluconazole 14 days course. 3) Acute respiratory failure: pneumonia and fluid overload. Extubated 11/05/2018 and now reintubated 11/07/2018. Planned for trach. 4) Presumed aspiration pneumonia v/s HAP: Tracheal asp cultures 10/28/2018 with E.coli and Stenotrophomonas. Stenotrophomonas is a known colonizer in patients with structural lung disease or tracheostomy tubes/ET tubes, not generally considered very virulent. Given her prolonged and complicated hospital stay, completed a 10 day course of abx. Repeat sputum cx + GNR but repeat CXR ne gative. 5) Contained gastric perforation: Gen Surgery following. Planned for conservative management. Follow up CT showed no contrast leak. Now on tube feeds. 6) ADWOA: improved. 7) Diarrhea: ? tfeeds not better Recommendations: - monitor diarrhea output-asked nursing staff to quantify it - monitor off antibiotics - midline removed, new IJ placed Dr Joy is covering the weekend will follow Ame Garcia MD Infectious Diseases [employer] [facility] M [phone] O [phone] Subjective Date of service: 11/21/18 Principal diagnosis: anemia Interval history: Remains on vent via trach, alert, follows commands, no fever. +diarrhea ROS unable to obtain Objective - Exam Narrative Exam: General appearance: alert follows in NAD Eyes: anicteric sclerae, moist conjunctivae; no lid-lag; PERRLA HENT: Atraumatic; oropharynx limited Neck: Trach no secretion Lungs: distant BS CV: tachycardic Abdomen: Soft, non-tender Extremities: no edema, cyanosis Skin: Normal temperature, turgor and texture; no rash, ulcers or subcutaneous nodules Psych: no agitated Neuro:alert Rectal tube w diarrhea - Constitutional Vitals: Vital Signs Temp Pulse Resp BP Pulse Ox 97.9 F 94 H 14 115/50 100 11/21/18 04:00 11/21/18 08:19 11/21/18 07:35 11/21/18 08:19 11/21/18 07:27 Temperature -Last 24 Hours Temperature 97.9 F Temperature 98.2 F Temperature 97.9 F - Labs CBC & Chem 7: 11/21/18 05:49 11/21/18 05:49 Labs: Abnormal lab results 11/21/18 11/21/18 11/21/18 Range/Units 05:37 05:49 05:49 WBC 16.1 H (4.5-11.0) K/mm3 RBC 2.76 L (3.65-5.03) M/mm3 Hgb 8.9 L (10.1-14.3) gm/dl Hct 26.8 L (30.3-42.9) % RDW 16.8 H (13.2-15.2) % Sodium 148 H (137-145) mmol/L Chloride 108.1 H (98-107) mmol/L BUN 33 H (7-17) mg/dL Creatinine 0.3 L (0.7-1.2) mg/dL Glucose 133 H (65-100) mg/dL POC Glucose 162 H (70-105) Calcium 8.1 L (8.4-10.2) mg/dL
--- NOTE | 2018-11-21 10:57 | Progress Note ---
Assessment and Plan 73 y/o female with bowel obstruction and now acute respiratory failure with hypercapnea, likely multifactorial from pain medications, anti-psychotic therapy and inability to take deep breaths for ventilation, now with fungemia from picc line placement. 1. Patient trached now and doing daily PSV trials. Will continue. Asked RT to extend the time on night shit before resting on Full Vent support. If patient still here over the weekend. Will try 24 hours of PSV. Today will try T-piece for about 1-2 hours 2. Finished antifungal therapy 3. Tube feeds at goal now. ID concerned about diarrhea but spoke with nutrition and at this point, nothing to change about feeding. ID not concerned about an infectious cause of diarrhea. ID had ordered CT but white count has decreased, no fever. Will cancel. Will also increase Free water to [id number] 4. Changed steroids to BID, if patient still here over the weekend, will consider decreasing. 5. CM aware of need for residential placement post trach. Referrals have been sent out. Hopeful answer today. 6. Continue PT, did well with this. 8. Continue Klonopin and PRN ativan CCT 31 minutes. Subjective Date of service: 11/21/18 Principal diagnosis: anemia Interval history: No acute events. Tolerated PSV until midnight and then rested. Back on PSV now. at bedside. Objective Vital Signs - 12hr 11/20/18 11/20/18 11/20/18 22:55 23:00 23:03 Temperature Pulse Rate 84 83 89 Pulse Rate [ Anterior Bilateral Throughout] Respiratory 14 15 Rate Respiratory Rate [Anterior Bilateral Throughout] Blood Pressure 111/53 111/49 111/49 O2 Sat by Pulse 99 99 99 Oximetry O2 Sat by Pulse Oximetry [ Assessment] 11/20/18 11/21/18 11/21/18 23:30 00:00 00:30 Temperature 98.2 F Pulse Rate 85 90 85 Pulse Rate [ Anterior Bilateral Throughout] Respiratory 17 21 18 Rate Respiratory Rate [Anterior Bilateral Throughout] Blood Pressure 110/49 106/53 105/46 O2 Sat by Pulse 100 99 92 Oximetry O2 Sat by Pulse 97 Oximetry [ Assessment] 11/21/18 11/21/18 11/21/18 01:00 01:30 02:00 Temperature Pulse Rate 89 88 91 H Pulse Rate [ Anterior Bilateral Throughout] Respiratory 16 15 16 Rate Respiratory Rate [Anterior Bilateral Throughout] Blood Pressure 105/49 101/45 111/53 O2 Sat by Pulse 93 98 93 Oximetry O2 Sat by Pulse Oximetry [ Assessment] 11/21/18 11/21/18 11/21/18 02:30 03:00 03:30 Temperature Pulse Rate 89 88 100 H Pulse Rate [ Anterior Bilateral Throughout] Respiratory 16 16 21 Rate Respiratory Rate [Anterior Bilateral Throughout] Blood Pressure 107/47 110/49 125/68 O2 Sat by Pulse 92 93 95 Oximetry O2 Sat by Pulse Oximetry [ Assessment] 11/21/18 11/21/18 11/21/18 03:48 04:00 04:30 Temperature 97.9 F Pulse Rate 87 91 H 90 Pulse Rate [ Anterior Bilateral Throughout] Respiratory 20 19 Rate Respiratory Rate [Anterior Bilateral Throughout] Blood Pressure 125/68 127/55 108/54 O2 Sat by Pulse 97 96 96 Oximetry O2 Sat by Pulse Oximetry [ Assessment] 11/21/18 11/21/18 11/21/18 05:00 05:30 06:00 Temperature Pulse Rate 87 95 H 84 Pulse Rate [ Anterior Bilateral Throughout] Respiratory 19 16 15 Rate Respiratory Rate [Anterior Bilateral Throughout] Blood Pressure 105/53 127/55 117/51 O2 Sat by Pulse 95 96 98 Oximetry O2 Sat by Pulse Oximetry [ Assessment] 11/21/18 11/21/18 11/21/18 06:19 06:31 07:25 Temperature Pulse Rate 92 H 95 H Pulse Rate [ 92 H Anterior Bilateral Throughout] Respiratory 24 Rate Respiratory 18 Rate [Anterior Bilateral Throughout] Blood Pressure 117/51 135/54 O2 Sat by Pulse 98 100 Oximetry O2 Sat by Pulse Oximetry [ Assessment] 11/21/18 11/21/18 11/21/18 07:27 07:35 08:19 Temperature Pulse Rate 89 94 H Pulse Rate [ 97 H Anterior Bilateral Throughout] Respiratory 14 Rate Respiratory 14 Rate [Anterior Bilateral Throughout] Blood Pressure 110/64 115/50 O2 Sat by Pulse 100 Oximetry O2 Sat by Pulse Oximetry [ Assessment] Constitutional: alert Eyes: non-icteric ENT: other (trach in position) Neck: supple, no JVD, other (trach is midline) Effort: mildly labored Ascultation: Bilateral: diminished breath sounds, rhonchi (sporadic) Percussion: Bilateral: not dull Cardiovascular: regular rate and rhythm Gastrointestinal: hypoactive bowel sounds, non-tender, non-distended, other Integumentary: normal Extremities: no edema Neurologic: normal mental status, non-focal exam Psychiatric: anxious CBC and BMP: 11/21/18 05:49 11/21/18 05:49 ABG, PT/INR, D-dimer: ABG POC ABG pH 7.446 (7.35-7.45) 11/15/18 11:33 POC ABG pCO2 46.1 (35-45) H 11/15/18 11:33 POC ABG pO2 107 (80-105) H 11/15/18 11:33 POC ABG HCO3 31.8 (22-26 mml/L) 11/15/18 11:33 POC ABG Total CO2 33 (23-27mmol/L) 11/15/18 11:33 POC ABG O2 Sat 98 11/15/18 11:33 Abnormal lab findings: Abnormal Labs 10/22/18 10/22/18 10/22/18 15:31 15:54 15:54 WBC 11.5 H RBC 5.35 H Hgb 17.4 H Hct 50.3 H MCV MCH 33 H MCHC 35 H RDW Plt Count Lymph % (Auto) 12.6 L [place] % (Auto) 14.8 H Lymph # [place] # 1.7 H Seg Neutrophils % 72.5 H Seg Neuts % (Manual) Lymphocytes % (Manual) Seg Neutrophils # 8.3 H Seg Neutrophils # Man Lymphocytes # (Manual) POC ABG pH POC ABG pCO2 POC ABG pO2 Sodium 134 L Potassium Chloride 88.1 L Carbon Dioxide BUN 51 H Creatinine 2.1 H Glucose 166 H POC Glucose Calcium Phosphorus Magnesium Iron TIBC Ferritin Alkaline Phosphatase NT-Pro-B Natriuret Pep Total Protein Albumin 3.4 L Lipase 10 L Free T4 10/23/18 10/23/18 10/23/18 04:32 04:32 10:53 WBC RBC Hgb Hct MCV MCH MCHC RDW Plt Count Lymph % (Auto) 10.2 L [place] % (Auto) 14.7 H Lymph # 0.7 L [place] # 1.0 H Seg Neutrophils % 74.9 H Seg Neuts % (Manual) Lymphocytes % (Manual) Seg Neutrophils # Seg Neutrophils # Man Lymphocytes # (Manual) POC ABG pH POC ABG pCO2 POC ABG pO2 Sodium Potassium 3.1 L D 3.5 L Chloride Carbon Dioxide BUN 41 H 37 H Creatinine Glucose 111 H 110 H POC Glucose Calcium 8.1 L 8.1 L Phosphorus Magnesium Iron TIBC Ferritin Alkaline Phosphatase NT-Pro-B Natriuret Pep Total Protein Albumin Lipase Free T4 10/24/18 10/24/18 10/25/18 05:34 05:34 04:51 WBC RBC Hgb Hct MCV MCH MCHC RDW Plt Count Lymph % (Auto) [place] % (Auto) Lymph # [place] # Seg Neutrophils % Seg Neuts % (Manual) Lymphocytes % (Manual) Seg Neutrophils # Seg Neutrophils # Man Lymphocytes # (Manual) POC ABG pH POC ABG pCO2 POC ABG pO2 Sodium Potassium 3.2 L 3.1 L Chloride 109.8 H 114.2 H Carbon Dioxide 17 L D BUN 21 H Creatinine Glucose 134 H 171 H POC Glucose Calcium 7.7 L 7.0 L Phosphorus 0.80 L* Magnesium Iron TIBC Ferritin Alkaline Phosphatase NT-Pro-B Natriuret Pep Total Protein Albumin Lipase Free T4 10/25/18 10/26/18 10/26/18 06:07 02:58 04:57 WBC RBC Hgb Hct MCV 99 H MCH 33 H MCHC RDW Plt Count Lymph % (Auto) [place] % (Auto) Lymph # [place] # Seg Neutrophils % Seg Neuts % (Manual) Lymphocytes % (Manual) Seg Neutrophils # Seg Neutrophils # Man Lymphocytes # (Manual) POC ABG pH 7.090 L 7.320 L POC ABG pCO2 65.0 H 32.8 L POC ABG pO2 76 L Sodium Potassium Chloride Carbon Dioxide BUN Creatinine Glucose POC Glucose Calcium Phosphorus Magnesium Iron TIBC Ferritin Alkaline Phosphatase NT-Pro-B Natriuret Pep Total Protein Albumin Lipase Free T4 10/26/18 10/26/18 10/26/18 06:03 06:03 11:52 WBC 23.8 H RBC Hgb 15.4 H Hct 46.1 H D MCV MCH MCHC RDW Plt Count Lymph % (Auto) [place] % (Auto) Lymph # [place] # Seg Neutrophils % Seg Neuts % (Manual) Lymphocytes % (Manual) Seg Neutrophils # Seg Neutrophils # Man Lymphocytes # (Manual) POC ABG pH POC ABG pCO2 POC ABG pO2 Sodium Potassium Chloride 109.5 H Carbon Dioxide 18 L BUN Creatinine Glucose 128 H POC Glucose 117 H Calcium 8.3 L D Phosphorus Magnesium Iron TIBC Ferritin Alkaline Phosphatase NT-Pro-B Natriuret Pep Total Protein Albumin Lipase Free T4 10/26/18 10/26/18 10/26/18 13:54 17:10 17:32 WBC RBC Hgb Hct MCV MCH MCHC RDW Plt Count Lymph % (Auto) [place] % (Auto) Lymph # [place] # Seg Neutrophils % Seg Neuts % (Manual) Lymphocytes % (Manual) Seg Neutrophils # Seg Neutrophils # Man Lymphocytes # (Manual) POC ABG pH 7.215 L POC ABG pCO2 31.8 L POC ABG pO2 69 L 204 H Sodium Potassium 3.0 L D Chloride 114.5 H Carbon Dioxide 21 L BUN Creatinine Glucose POC Glucose Calcium 7.6 L Phosphorus Magnesium 1.40 L Iron TIBC Ferritin Alkaline Phosphatase NT-Pro-B Natriuret Pep Total Protein Albumin Lipase Free T4 10/26/18 10/27/18 10/27/18 23:13 00:40 01:09 WBC RBC Hgb Hct MCV MCH MCHC RDW Plt Count Lymph % (Auto) [place] % (Auto) Lymph # [place] # Seg Neutrophils % Seg Neuts % (Manual) Lymphocytes % (Manual) Seg Neutrophils # Seg Neutrophils # Man Lymphocytes # (Manual) POC ABG pH POC ABG pCO2 POC ABG pO2 Sodium Potassium 3.4 L Chloride 115.0 H Carbon Dioxide 14 L D BUN Creatinine Glucose 228 H POC Glucose 48 L 264 H Calcium 7.1 L Phosphorus Magnesium Iron TIBC Ferritin Alkaline Phosphatase NT-Pro-B Natriuret Pep Total Protein Albumin Lipase Free T4 10/27/18 10/27/18 10/27/18 05:00 05:00 05:16 WBC 22.5 H RBC Hgb 14.7 H Hct 44.4 H MCV MCH MCHC RDW Plt Count Lymph % (Auto) [place] % (Auto) Lymph # [place] # Seg Neutrophils % Seg Neuts % (Manual) Lymphocytes % (Manual) Seg Neutrophils # Seg Neutrophils # Man Lymphocytes # (Manual) POC ABG pH 7.304 L POC ABG pCO2 POC ABG pO2 116 H Sodium Potassium Chloride 118.4 H Carbon Dioxide 16 L BUN Creatinine Glucose 123 H POC Glucose Calcium 7.7 L Phosphorus Magnesium 2.60 H Iron TIBC Ferritin Alkaline Phosphatase NT-Pro-B Natriuret Pep Total Protein Albumin Lipase Free T4 10/28/18 10/28/18 10/28/18 04:25 04:25 15:37 WBC 23.5 H RBC Hgb Hct MCV MCH MCHC RDW Plt Count Lymph % (Auto) [place] % (Auto) Lymph # [place] # Seg Neutrophils % Seg Neuts % (Manual) Lymphocytes % (Manual) Seg Neutrophils # Seg Neutrophils # Man Lymphocytes # (Manual) POC ABG pH POC ABG pCO2 POC ABG pO2 Sodium 147 H Potassium Chloride 116.9 H Carbon Dioxide 16 L BUN 23 H Creatinine Glucose POC Glucose 114 H Calcium 8.0 L Phosphorus Magnesium Iron TIBC Ferritin Alkaline Phosphatase NT-Pro-B Natriuret Pep Total Protein Albumin Lipase Free T4 10/28/18 10/28/18 10/28/18 20:33 22:07 23:31 WBC RBC Hgb Hct MCV MCH MCHC RDW Plt Count Lymph % (Auto) [place] % (Auto) Lymph # [place] # Seg Neutrophils % Seg Neuts % (Manual) Lymphocytes % (Manual) Seg Neutrophils # Seg Neutrophils # Man Lymphocytes # (Manual) POC ABG pH 7.202 L 7.235 L POC ABG pCO2 POC ABG pO2 71 L Sodium Potassium Chloride Carbon Dioxide BUN Creatinine Glucose POC Glucose 207 H Calcium Phosphorus Magnesium Iron TIBC Ferritin Alkaline Phosphatase NT-Pro-B Natriuret Pep Total Protein Albumin Lipase Free T4 10/29/18 10/29/18 10/29/18 04:30 04:30 05:26 WBC 21.1 H RBC Hgb Hct MCV MCH MCHC RDW Plt Count Lymph % (Auto) [place] % (Auto) Lymph # [place] # Seg Neutrophils % Seg Neuts % (Manual) 97.0 H Lymphocytes % (Manual) 3.0 L Seg Neutrophils # Seg Neutrophils # Man 20.5 H Lymphocytes # (Manual) 0.6 L POC ABG pH 7.305 L POC ABG pCO2 30.5 L POC ABG pO2 75 L Sodium 147 H Potassium 3.5 L Chloride 120.0 H Carbon Dioxide 17 L BUN 30 H Creatinine Glucose 246 H POC Glucose Calcium 7.9 L Phosphorus Magnesium Iron TIBC Ferritin Alkaline Phosphatase NT-Pro-B Natriuret Pep Total Protein Albumin Lipase Free T4 10/29/18 10/29/18 10/29/18 05:36 11:39 18:00 WBC RBC Hgb Hct MCV MCH MCHC RDW Plt Count Lymph % (Auto) [place] % (Auto) Lymph # [place] # Seg Neutrophils % Seg Neuts % (Manual) Lymphocytes % (Manual) Seg Neutrophils # Seg Neutrophils # Man Lymphocytes # (Manual) POC ABG pH POC ABG pCO2 POC ABG pO2 Sodium Potassium Chloride Carbon Dioxide BUN Creatinine Glucose POC Glucose 204 H 224 H 221 H Calcium Phosphorus Magnesium Iron TIBC Ferritin Alkaline Phosphatase NT-Pro-B Natriuret Pep Total Protein Albumin Lipase Free T4 10/29/18 10/30/18 10/30/18 23:17 05:00 05:00 WBC 21.4 H RBC Hgb Hct MCV MCH MCHC RDW Plt Count 134 L Lymph % (Auto) [place] % (Auto) Lymph # [place] # Seg Neutrophils % Seg Neuts % (Manual) 97.0 H Lymphocytes % (Manual) 3.0 L Seg Neutrophils # Seg Neutrophils # Man 20.8 H Lymphocytes # (Manual) 0.6 L POC ABG pH POC ABG pCO2 POC ABG pO2 Sodium 148 H Potassium 3.1 L Chloride 120.3 H Carbon Dioxide 18 L BUN 31 H Creatinine Glucose 205 H POC Glucose 181 H Calcium 8.0 L Phosphorus Magnesium Iron TIBC Ferritin Alkaline Phosphatase NT-Pro-B Natriuret Pep Total Protein Albumin Lipase Free T4 10/30/18 10/30/18 10/30/18 05:14 05:25 05:26 WBC RBC Hgb Hct MCV MCH MCHC RDW Plt Count Lymph % (Auto) [place] % (Auto) Lymph # [place] # Seg Neutrophils % Seg Neuts % (Manual) Lymphocytes % (Manual) Seg Neutrophils # Seg Neutrophils # Man Lymphocytes # (Manual) POC ABG pH 7.296 L 7.245 L POC ABG pCO2 31.1 L POC ABG pO2 54 L 59 L Sodium Potassium Chloride Carbon Dioxide BUN Creatinine Glucose POC Glucose 199 H Calcium Phosphorus Magnesium Iron TIBC Ferritin Alkaline Phosphatase NT-Pro-B Natriuret Pep Total Protein Albumin Lipase Free T4 10/30/18 10/30/18 10/31/18 13:23 18:25 00:22 WBC RBC Hgb Hct MCV MCH MCHC RDW Plt Count Lymph % (Auto) [place] % (Auto) Lymph # [place] # Seg Neutrophils % Seg Neuts % (Manual) Lymphocytes % (Manual) Seg Neutrophils # Seg Neutrophils # Man Lymphocytes # (Manual) POC ABG pH POC ABG pCO2 POC ABG pO2 Sodium Potassium Chloride Carbon Dioxide BUN Creatinine Glucose POC Glucose 146 H 158 H 162 H Calcium Phosphorus Magnesium Iron TIBC Ferritin Alkaline Phosphatase NT-Pro-B Natriuret Pep Total Protein Albumin Lipase Free T4 10/31/18 10/31/18 10/31/18 04:39 05:14 07:05 WBC RBC Hgb Hct MCV MCH MCHC RDW Plt Count Lymph % (Auto) [place] % (Auto) Lymph # [place] # Seg Neutrophils % Seg Neuts % (Manual) Lymphocytes % (Manual) Seg Neutrophils # Seg Neutrophils # Man Lymphocytes # (Manual) POC ABG pH 7.238 L POC ABG pCO2 POC ABG pO2 Sodium Potassium Chloride 115.8 H Carbon Dioxide 18 L BUN 39 H Creatinine 1.3 H Glucose 167 H POC Glucose 145 H Calcium 7.5 L Phosphorus 1.80 L Magnesium Iron TIBC Ferritin Alkaline Phosphatase NT-Pro-B Natriuret Pep Total Protein Albumin Lipase Free T4 10/31/18 10/31/18 10/31/18 10:43 12:03 17:00 WBC RBC Hgb Hct MCV MCH MCHC RDW Plt Count Lymph % (Auto) [place] % (Auto) Lymph # [place] # Seg Neutrophils % Seg Neuts % (Manual) Lymphocytes % (Manual) Seg Neutrophils # Seg Neutrophils # Man Lymphocytes # (Manual) POC ABG pH 7.304 L POC ABG pCO2 33.3 L POC ABG pO2 Sodium Potassium Chloride Carbon Dioxide BUN Creatinine Glucose POC Glucose 159 H Calcium Phosphorus Magnesium Iron TIBC Ferritin Alkaline Phosphatase NT-Pro-B Natriuret Pep Total Protein Albumin Lipase Free T4 0.49 L 10/31/18 11/01/18 11/01/18 17:00 00:44 05:27 WBC RBC Hgb Hct MCV MCH MCHC RDW Plt Count Lymph % (Auto) [place] % (Auto) Lymph # [place] # Seg Neutrophils % Seg Neuts % (Manual) Lymphocytes % (Manual) Seg Neutrophils # Seg Neutrophils # Man Lymphocytes # (Manual) POC ABG pH 7.248 L POC ABG pCO2 34.8 L POC ABG pO2 135 H Sodium Potassium Chloride Carbon Dioxide BUN Creatinine Glucose POC Glucose 127 H 118 H Calcium Phosphorus Magnesium Iron TIBC Ferritin Alkaline Phosphatase NT-Pro-B Natriuret Pep Total Protein Albumin Lipase Free T4 11/01/18 11/01/18 11/01/18 06:40 06:40 06:53 WBC 18.9 H RBC 3.63 L Hgb Hct MCV MCH MCHC RDW Plt Count 64 L Lymph % (Auto) [place] % (Auto) Lymph # [place] # Seg Neutrophils % Seg Neuts % (Manual) 98.0 H Lymphocytes % (Manual) 1.0 L Seg Neutrophils # Seg Neutrophils # Man 18.5 H Lymphocytes # (Manual) 0.2 L POC ABG pH POC ABG pCO2 POC ABG pO2 Sodium Potassium 3.5 L Chloride 114.2 H Carbon Dioxide 17 L BUN 49 H Creatinine Glucose 107 H POC Glucose 127 H Calcium 7.3 L Phosphorus Magnesium 1.60 L Iron TIBC Ferritin Alkaline Phosphatase NT-Pro-B Natriuret Pep Total Protein Albumin Lipase Free T4 11/01/18 11/01/18 11/01/18 11:49 13:13 17:24 WBC RBC Hgb Hct MCV MCH MCHC RDW Plt Count Lymph % (Auto) [place] % (Auto) Lymph # [place] # Seg Neutrophils % Seg Neuts % (Manual) Lymphocytes % (Manual) Seg Neutrophils # Seg Neutrophils # Man Lymphocytes # (Manual) POC ABG pH POC ABG pCO2 POC ABG pO2 182 H Sodium Potassium Chloride Carbon Dioxide BUN Creatinine Glucose POC Glucose 134 H 111 H Calcium Phosphorus Magnesium Iron TIBC Ferritin Alkaline Phosphatase NT-Pro-B Natriuret Pep Total Protein Albumin Lipase Free T4 11/01/18 11/02/18 11/02/18 23:07 04:32 05:00 WBC RBC Hgb Hct MCV MCH MCHC RDW Plt Count Lymph % (Auto) [place] % (Auto) Lymph # [place] # Seg Neutrophils % Seg Neuts % (Manual) Lymphocytes % (Manual) Seg Neutrophils # Seg Neutrophils # Man Lymphocytes # (Manual) POC ABG pH 7.244 L POC ABG pCO2 33.2 L POC ABG pO2 123 H Sodium Potassium 3.0 L Chloride 114.1 H Carbon Dioxide 15 L BUN 47 H Creatinine Glucose 127 H POC Glucose 123 H Calcium 7.7 L Phosphorus Magnesium Iron TIBC Ferritin Alkaline Phosphatase NT-Pro-B Natriuret Pep Total Protein Albumin Lipase Free T4 11/02/18 11/02/18 11/02/18 05:00 05:29 11:27 WBC RBC Hgb Hct MCV MCH MCHC RDW Plt Count Lymph % (Auto) [place] % (Auto) Lymph # [place] # Seg Neutrophils % Seg Neuts % (Manual) Lymphocytes % (Manual) Seg Neutrophils # Seg Neutrophils # Man Lymphocytes # (Manual) POC ABG pH POC ABG pCO2 POC ABG pO2 Sodium Potassium Chloride Carbon Dioxide BUN Creatinine Glucose POC Glucose 118 H 137 H Calcium Phosphorus Magnesium 1.60 L Iron TIBC Ferritin Alkaline Phosphatase NT-Pro-B Natriuret Pep Total Protein Albumin Lipase Free T4 11/02/18 11/02/18 11/03/18 12:53 23:35 04:14 WBC RBC Hgb Hct MCV MCH MCHC RDW Plt Count Lymph % (Auto) [place] % (Auto) Lymph # [place] # Seg Neutrophils % Seg Neuts % (Manual) Lymphocytes % (Manual) Seg Neutrophils # Seg Neutrophils # Man Lymphocytes # (Manual) POC ABG pH POC ABG pCO2 30.3 L POC ABG pO2 134 H 129 H Sodium Potassium Chloride Carbon Dioxide BUN Creatinine Glucose POC Glucose 115 H Calcium Phosphorus Magnesium Iron TIBC Ferritin Alkaline Phosphatase NT-Pro-B Natriuret Pep Total Protein Albumin Lipase Free T4 11/03/18 11/03/18 11/03/18 05:34 11:30 11:30 WBC 16.4 H RBC 3.50 L Hgb Hct MCV MCH MCHC RDW Plt Count 136 L D Lymph % (Auto) [place] % (Auto) Lymph # [place] # Seg Neutrophils % Seg Neuts % (Manual) 97.0 H Lymphocytes % (Manual) 2.0 L Seg Neutrophils # Seg Neutrophils # Man 15.9 H Lymphocytes # (Manual) 0.3 L POC ABG pH POC ABG pCO2 POC ABG pO2 Sodium Potassium 3.1 L Chloride 110.4 H Carbon Dioxide 17 L BUN 41 H Creatinine Glucose 129 H POC Glucose 116 H Calcium 7.7 L Phosphorus Magnesium 1.60 L Iron TIBC Ferritin Alkaline Phosphatase NT-Pro-B Natriuret Pep Total Protein 4.2 L Albumin 1.2 L Lipase Free T4 11/03/18 11/03/18 11/03/18 12:01 17:35 21:37 WBC RBC Hgb Hct MCV MCH MCHC RDW Plt Count Lymph % (Auto) [place] % (Auto) Lymph # [place] # Seg Neutrophils % Seg Neuts % (Manual) Lymphocytes % (Manual) Seg Neutrophils # Seg Neutrophils # Man Lymphocytes # (Manual) POC ABG pH POC ABG pCO2 POC ABG pO2 Sodium Potassium Chloride Carbon Dioxide BUN Creatinine Glucose POC Glucose 132 H 132 H 126 H Calcium Phosphorus Magnesium Iron TIBC Ferritin Alkaline Phosphatase NT-Pro-B Natriuret Pep Total Protein Albumin Lipase Free T4 11/03/18 11/04/18 11/04/18 23:30 05:14 05:15 WBC RBC Hgb Hct MCV MCH MCHC RDW Plt Count Lymph % (Auto) [place] % (Auto) Lymph # [place] # Seg Neutrophils % Seg Neuts % (Manual) Lymphocytes % (Manual) Seg Neutrophils # Seg Neutrophils # Man Lymphocytes # (Manual) POC ABG pH POC ABG pCO2 30.9 L POC ABG pO2 192 H Sodium Potassium Chloride Carbon Dioxide BUN Creatinine Glucose POC Glucose 115 H 123 H Calcium Phosphorus Magnesium Iron TIBC Ferritin Alkaline Phosphatase NT-Pro-B Natriuret Pep Total Protein Albumin Lipase Free T4 11/04/18 11/04/18 11/04/18 09:39 09:39 11:43 WBC 15.2 H RBC 3.18 L Hgb Hct 29.9 L MCV MCH MCHC RDW Plt Count Lymph % (Auto) [place] % (Auto) Lymph # [place] # Seg Neutrophils % Seg Neuts % (Manual) 98.0 H Lymphocytes % (Manual) 1.0 L Seg Neutrophils # Seg Neutrophils # Man 14.9 H Lymphocytes # (Manual) 0.2 L POC ABG pH POC ABG pCO2 POC ABG pO2 Sodium 135 L D Potassium Chloride 109.5 H Carbon Dioxide 16 L BUN 46 H Creatinine Glucose 136 H POC Glucose 138 H Calcium 8.0 L Phosphorus Magnesium Iron TIBC Ferritin Alkaline Phosphatase NT-Pro-B Natriuret Pep Total Protein Albumin Lipase Free T4 11/04/18 11/04/18 11/05/18 17:31 23:42 05:23 WBC RBC Hgb Hct MCV MCH MCHC RDW Plt Count Lymph % (Auto) [place] % (Auto) Lymph # [place] # Seg Neutrophils % Seg Neuts % (Manual) Lymphocytes % (Manual) Seg Neutrophils # Seg Neutrophils # Man Lymphocytes # (Manual) POC ABG pH POC ABG pCO2 POC ABG pO2 Sodium Potassium Chloride Carbon Dioxide BUN Creatinine Glucose POC Glucose 139 H 138 H 148 H Calcium Phosphorus Magnesium Iron TIBC Ferritin Alkaline Phosphatase NT-Pro-B Natriuret Pep Total Protein Albumin Lipase Free T4 11/05/18 11/05/18 11/05/18 05:30 05:30 11:46 WBC 14.2 H RBC 3.12 L Hgb 10.0 L Hct 29.1 L MCV MCH MCHC RDW Plt Count Lymph % (Auto) [place] % (Auto) Lymph # [place] # Seg Neutrophils % Seg Neuts % (Manual) Lymphocytes % (Manual) Seg Neutrophils # Seg Neutrophils # Man Lymphocytes # (Manual) POC ABG pH POC ABG pCO2 POC ABG pO2 Sodium Potassium Chloride Carbon Dioxide 21 L BUN 42 H Creatinine Glucose 125 H POC Glucose 157 H Calcium 7.9 L Phosphorus Magnesium Iron TIBC Ferritin Alkaline Phosphatase NT-Pro-B Natriuret Pep Total Protein Albumin Lipase Free T4 11/05/18 11/05/18 11/05/18 17:09 20:03 23:43 WBC RBC Hgb Hct MCV MCH MCHC RDW Plt Count Lymph % (Auto) [place] % (Auto) Lymph # [place] # Seg Neutrophils % Seg Neuts % (Manual) Lymphocytes % (Manual) Seg Neutrophils # Seg Neutrophils # Man Lymphocytes # (Manual) POC ABG pH POC ABG pCO2 POC ABG pO2 76 L Sodium Potassium Chloride Carbon Dioxide BUN Creatinine Glucose POC Glucose 142 H 204 H Calcium Phosphorus Magnesium Iron TIBC Ferritin Alkaline Phosphatase NT-Pro-B Natriuret Pep Total Protein Albumin Lipase Free T4 11/06/18 11/06/18 11/06/18 04:21 12:14 17:17 WBC RBC Hgb Hct MCV MCH MCHC RDW Plt Count Lymph % (Auto) [place] % (Auto) Lymph # [place] # Seg Neutrophils % Seg Neuts % (Manual) Lymphocytes % (Manual) Seg Neutrophils # Seg Neutrophils # Man Lymphocytes # (Manual) POC ABG pH POC ABG pCO2 POC ABG pO2 Sodium 133 L Potassium Chloride Carbon Dioxide 18 L BUN 47 H Creatinine Glucose 187 H POC Glucose 232 H 199 H Calcium 7.8 L Phosphorus 5.30 H D Magnesium 2.50 H Iron TIBC Ferritin Alkaline Phosphatase NT-Pro-B Natriuret Pep Total Protein Albumin Lipase Free T4 11/06/18 11/06/18 11/07/18 19:46 23:30 00:00 WBC RBC Hgb Hct MCV MCH MCHC RDW Plt Count Lymph % (Auto) [place] % (Auto) Lymph # [place] # Seg Neutrophils % Seg Neuts % (Manual) Lymphocytes % (Manual) Seg Neutrophils # Seg Neutrophils # Man Lymphocytes # (Manual) POC ABG pH 7.317 L POC ABG pCO2 50.3 H POC ABG pO2 58 L 57 L Sodium Potassium Chloride Carbon Dioxide BUN Creatinine Glucose POC Glucose 224 H Calcium Phosphorus Magnesium Iron TIBC Ferritin Alkaline Phosphatase NT-Pro-B Natriuret Pep Total Protein Albumin Lipase Free T4 11/07/18 11/07/18 11/07/18 04:55 04:55 04:55 WBC 25.2 H RBC 3.64 L Hgb Hct MCV MCH MCHC RDW Plt Count Lymph % (Auto) [place] % (Auto) Lymph # [place] # Seg Neutrophils % Seg Neuts % (Manual) Lymphocytes % (Manual) Seg Neutrophils # Seg Neutrophils # Man Lymphocytes # (Manual) POC ABG pH POC ABG pCO2 POC ABG pO2 Sodium Potassium Chloride Carbon Dioxide BUN 54 H Creatinine Glucose 270 H POC Glucose Calcium 7.9 L Phosphorus 5.00 H Magnesium Iron TIBC Ferritin Alkaline Phosphatase NT-Pro-B Natriuret Pep 4507 H Total Protein Albumin Lipase Free T4 11/07/18 11/07/18 11/07/18 05:46 08:08 11:52 WBC RBC Hgb Hct MCV MCH MCHC RDW Plt Count Lymph % (Auto) [place] % (Auto) Lymph # [place] # Seg Neutrophils % Seg Neuts % (Manual) Lymphocytes % (Manual) Seg Neutrophils # Seg Neutrophils # Man Lymphocytes # (Manual) POC ABG pH POC ABG pCO2 47.6 H POC ABG pO2 106 H Sodium Potassium Chloride Carbon Dioxide BUN Creatinine Glucose POC Glucose 266 H 323 H Calcium Phosphorus Magnesium Iron TIBC Ferritin Alkaline Phosphatase NT-Pro-B Natriuret Pep Total Protein Albumin Lipase Free T4 11/07/18 11/07/18 11/07/18 12:29 17:57 23:48 WBC RBC Hgb Hct MCV MCH MCHC RDW Plt Count Lymph % (Auto) [place] % (Auto) Lymph # [place] # Seg Neutrophils % Seg Neuts % (Manual) Lymphocytes % (Manual) Seg Neutrophils # Seg Neutrophils # Man Lymphocytes # (Manual) POC ABG pH POC ABG pCO2 POC ABG pO2 Sodium Potassium Chloride Carbon Dioxide BUN Creatinine Glucose POC Glucose 325 H 286 H 231 H Calcium Phosphorus Magnesium Iron TIBC Ferritin Alkaline Phosphatase NT-Pro-B Natriuret Pep Total Protein Albumin Lipase Free T4 11/08/18 11/08/18 11/08/18 03:58 05:05 05:05 WBC 18.4 H RBC 3.20 L Hgb 10.0 L Hct 29.7 L MCV MCH MCHC RDW Plt Count Lymph % (Auto) [place] % (Auto) Lymph # [place] # Seg Neutrophils % Seg Neuts % (Manual) Lymphocytes % (Manual) Seg Neutrophils # Seg Neutrophils # Man Lymphocytes # (Manual) POC ABG pH 7.524 H POC ABG pCO2 34.3 L POC ABG pO2 Sodium Potassium Chloride Carbon Dioxide BUN 61 H Creatinine Glucose 253 H POC Glucose Calcium 7.6 L Phosphorus Magnesium Iron TIBC Ferritin Alkaline Phosphatase NT-Pro-B Natriuret Pep Total Protein Albumin Lipase Free T4 11/08/18 11/08/18 11/08/18 05:28 11:28 18:21 WBC RBC Hgb Hct MCV MCH MCHC RDW Plt Count Lymph % (Auto) [place] % (Auto) Lymph # [place] # Seg Neutrophils % Seg Neuts % (Manual) Lymphocytes % (Manual) Seg Neutrophils # Seg Neutrophils # Man Lymphocytes # (Manual) POC ABG pH POC ABG pCO2 POC ABG pO2 Sodium Potassium Chloride Carbon Dioxide BUN Creatinine Glucose POC Glucose 295 H 253 H 225 H Calcium Phosphorus Magnesium Iron TIBC Ferritin Alkaline Phosphatase NT-Pro-B Natriuret Pep Total Protein Albumin Lipase Free T4 11/09/18 11/09/18 11/09/18 00:57 04:06 06:06 WBC RBC Hgb Hct MCV MCH MCHC RDW Plt Count Lymph % (Auto) [place] % (Auto) Lymph # [place] # Seg Neutrophils % Seg Neuts % (Manual) Lymphocytes % (Manual) Seg Neutrophils # Seg Neutrophils # Man Lymphocytes # (Manual) POC ABG pH 7.509 H POC ABG pCO2 POC ABG pO2 Sodium Potassium Chloride Carbon Dioxide BUN Creatinine Glucose POC Glucose 218 H 199 H Calcium Phosphorus Magnesium Iron TIBC Ferritin Alkaline Phosphatase NT-Pro-B Natriuret Pep Total Protein Albumin Lipase Free T4 11/09/18 11/09/18 11/09/18 06:51 06:51 12:07 WBC 13.5 H RBC 2.97 L Hgb 9.3 L Hct 27.6 L MCV MCH MCHC RDW Plt Count Lymph % (Auto) [place] % (Auto) Lymph # [place] # Seg Neutrophils % Seg Neuts % (Manual) Lymphocytes % (Manual) Seg Neutrophils # Seg Neutrophils # Man Lymphocytes # (Manual) POC ABG pH POC ABG pCO2 POC ABG pO2 Sodium Potassium Chloride 96.5 L Carbon Dioxide 32 H BUN 58 H Creatinine Glucose 191 H POC Glucose 212 H Calcium 7.5 L Phosphorus Magnesium Iron TIBC Ferritin Alkaline Phosphatase NT-Pro-B Natriuret Pep Total Protein Albumin Lipase Free T4 11/09/18 11/10/18 11/10/18 18:29 00:09 04:21 WBC RBC Hgb Hct MCV MCH MCHC RDW Plt Count Lymph % (Auto) [place] % (Auto) Lymph # [place] # Seg Neutrophils % Seg Neuts % (Manual) Lymphocytes % (Manual) Seg Neutrophils # Seg Neutrophils # Man Lymphocytes # (Manual) POC ABG pH 7.467 H POC ABG pCO2 49.9 H POC ABG pO2 76 L Sodium Potassium Chloride Carbon Dioxide BUN Creatinine Glucose POC Glucose 192 H 214 H Calcium Phosphorus Magnesium Iron TIBC Ferritin Alkaline Phosphatase NT-Pro-B Natriuret Pep Total Protein Albumin Lipase Free T4 11/10/18 11/10/18 11/10/18 04:39 04:39 06:05 WBC 14.3 H RBC 3.09 L Hgb 9.7 L Hct 28.9 L MCV MCH MCHC RDW Plt Count Lymph % (Auto) [place] % (Auto) Lymph # [place] # Seg Neutrophils % Seg Neuts % (Manual) Lymphocytes % (Manual) Seg Neutrophils # Seg Neutrophils # Man Lymphocytes # (Manual) POC ABG pH POC ABG pCO2 POC ABG pO2 Sodium Potassium Chloride 97.5 L Carbon Dioxide 31 H BUN 53 H Creatinine Glucose 196 H POC Glucose 202 H Calcium 7.7 L Phosphorus Magnesium Iron TIBC Ferritin Alkaline Phosphatase NT-Pro-B Natriuret Pep Total Protein Albumin Lipase Free T4 11/10/18 11/10/18 11/11/18 12:32 17:16 00:06 WBC RBC Hgb Hct MCV MCH MCHC RDW Plt Count Lymph % (Auto) [place] % (Auto) Lymph # [place] # Seg Neutrophils % Seg Neuts % (Manual) Lymphocytes % (Manual) Seg Neutrophils # Seg Neutrophils # Man Lymphocytes # (Manual) POC ABG pH POC ABG pCO2 POC ABG pO2 Sodium Potassium Chloride Carbon Dioxide BUN Creatinine Glucose POC Glucose 197 H 200 H 177 H Calcium Phosphorus Magnesium Iron TIBC Ferritin Alkaline Phosphatase NT-Pro-B Natriuret Pep Total Protein Albumin Lipase Free T4 11/11/18 11/11/18 11/11/18 04:43 05:24 05:50 WBC 14.1 H RBC 2.92 L Hgb 9.1 L Hct 27.0 L MCV MCH MCHC RDW Plt Count Lymph % (Auto) [place] % (Auto) Lymph # [place] # Seg Neutrophils % Seg Neuts % (Manual) Lymphocytes % (Manual) Seg Neutrophils # Seg Neutrophils # Man Lymphocytes # (Manual) POC ABG pH POC ABG pCO2 50.1 H POC ABG pO2 Sodium Potassium Chloride Carbon Dioxide BUN Creatinine Glucose POC Glucose 199 H Calcium Phosphorus Magnesium Iron TIBC Ferritin Alkaline Phosphatase NT-Pro-B Natriuret Pep Total Protein Albumin Lipase Free T4 11/11/18 11/11/18 11/11/18 05:50 12:00 17:57 WBC RBC Hgb Hct MCV MCH MCHC RDW Plt Count Lymph % (Auto) [place] % (Auto) Lymph # [place] # Seg Neutrophils % Seg Neuts % (Manual) Lymphocytes % (Manual) Seg Neutrophils # Seg Neutrophils # Man Lymphocytes # (Manual) POC ABG pH POC ABG pCO2 POC ABG pO2 Sodium Potassium 3.5 L Chloride Carbon Dioxide 34 H BUN 47 H Creatinine 0.5 L Glucose 169 H POC Glucose 168 H 194 H Calcium 8.2 L Phosphorus Magnesium Iron TIBC Ferritin Alkaline Phosphatase 142 H NT-Pro-B Natriuret Pep Total Protein 4.4 L Albumin 2.1 L Lipase Free T4 11/11/18 11/12/18 11/12/18 23:26 05:32 09:26 WBC RBC Hgb Hct MCV MCH MCHC RDW Plt Count Lymph % (Auto) [place] % (Auto) Lymph # [place] # Seg Neutrophils % Seg Neuts % (Manual) Lymphocytes % (Manual) Seg Neutrophils # Seg Neutrophils # Man Lymphocytes # (Manual) POC ABG pH POC ABG pCO2 POC ABG pO2 Sodium Potassium Chloride Carbon Dioxide BUN Creatinine Glucose POC Glucose 181 H 186 H 158 H Calcium Phosphorus Magnesium Iron TIBC Ferritin Alkaline Phosphatase NT-Pro-B Natriuret Pep Total Protein Albumin Lipase Free T4 11/12/18 11/12/18 11/12/18 11:42 17:39 23:25 WBC RBC Hgb Hct MCV MCH MCHC RDW Plt Count Lymph % (Auto) [place] % (Auto) Lymph # [place] # Seg Neutrophils % Seg Neuts % (Manual) Lymphocytes % (Manual) Seg Neutrophils # Seg Neutrophils # Man Lymphocytes # (Manual) POC ABG pH POC ABG pCO2 POC ABG pO2 Sodium Potassium Chloride Carbon Dioxide BUN Creatinine Glucose POC Glucose 141 H 183 H 147 H Calcium Phosphorus Magnesium Iron TIBC Ferritin Alkaline Phosphatase NT-Pro-B Natriuret Pep Total Protein Albumin Lipase Free T4 11/13/18 11/13/18 11/13/18 12:16 18:10 21:21 WBC RBC Hgb Hct MCV MCH MCHC RDW Plt Count Lymph % (Auto) [place] % (Auto) Lymph # [place] # Seg Neutrophils % Seg Neuts % (Manual) Lymphocytes % (Manual) Seg Neutrophils # Seg Neutrophils # Man Lymphocytes # (Manual) POC ABG pH POC ABG pCO2 POC ABG pO2 Sodium Potassium Chloride Carbon Dioxide BUN Creatinine Glucose POC Glucose 114 H 127 H 185 H Calcium Phosphorus Magnesium Iron TIBC Ferritin Alkaline Phosphatase NT-Pro-B Natriuret Pep Total Protein Albumin Lipase Free T4 11/13/18 11/14/18 11/14/18 23:11 03:28 03:28 WBC RBC Hgb Hct MCV MCH MCHC RDW Plt Count Lymph % (Auto) [place] % (Auto) Lymph # [place] # Seg Neutrophils % Seg Neuts % (Manual) Lymphocytes % (Manual) Seg Neutrophils # Seg Neutrophils # Man Lymphocytes # (Manual) POC ABG pH POC ABG pCO2 POC ABG pO2 Sodium Potassium Chloride Carbon Dioxide BUN Creatinine Glucose POC Glucose 184 H Calcium Phosphorus Magnesium Iron 31 L TIBC 173 L Ferritin 510.3 H Alkaline Phosphatase NT-Pro-B Natriuret Pep Total Protein Albumin Lipase Free T4 11/14/18 11/14/18 11/14/18 05:12 07:59 10:05 WBC 19.8 H RBC 2.67 L Hgb 8.4 L Hct 25.2 L MCV MCH MCHC RDW Plt Count Lymph % (Auto) [place] % (Auto) Lymph # [place] # Seg Neutrophils % Seg Neuts % (Manual) 96.0 H Lymphocytes % (Manual) 0 L Seg Neutrophils # Seg Neutrophils # Man 19.0 H Lymphocytes # (Manual) 0.0 L POC ABG pH 7.470 H POC ABG pCO2 POC ABG pO2 Sodium Potassium Chloride Carbon Dioxide BUN Creatinine Glucose POC Glucose 178 H Calcium Phosphorus Magnesium Iron TIBC Ferritin Alkaline Phosphatase NT-Pro-B Natriuret Pep Total Protein Albumin Lipase Free T4 11/14/18 11/14/18 11/14/18 11:40 18:03 23:15 WBC RBC Hgb Hct MCV MCH MCHC RDW Plt Count Lymph % (Auto) [place] % (Auto) Lymph # [place] # Seg Neutrophils % Seg Neuts % (Manual) Lymphocytes % (Manual) Seg Neutrophils # Seg Neutrophils # Man Lymphocytes # (Manual) POC ABG pH POC ABG pCO2 POC ABG pO2 Sodium Potassium Chloride Carbon Dioxide BUN Creatinine Glucose POC Glucose 168 H 221 H 223 H Calcium Phosphorus Magnesium Iron TIBC Ferritin Alkaline Phosphatase NT-Pro-B Natriuret Pep Total Protein Albumin Lipase Free T4 11/15/18 11/15/18 11/15/18 05:29 11:33 12:13 WBC RBC Hgb Hct MCV MCH MCHC RDW Plt Count Lymph % (Auto) [place] % (Auto) Lymph # [place] # Seg Neutrophils % Seg Neuts % (Manual) Lymphocytes % (Manual) Seg Neutrophils # Seg Neutrophils # Man Lymphocytes # (Manual) POC ABG pH POC ABG pCO2 46.1 H POC ABG pO2 107 H Sodium Potassium Chloride Carbon Dioxide BUN Creatinine Glucose POC Glucose 210 H 199 H Calcium Phosphorus Magnesium Iron TIBC Ferritin Alkaline Phosphatase NT-Pro-B Natriuret Pep Total Protein Albumin Lipase Free T4 11/15/18 11/15/18 11/15/18 14:32 17:45 23:29 WBC RBC Hgb Hct MCV MCH MCHC RDW Plt Count Lymph % (Auto) [place] % (Auto) Lymph # [place] # Seg Neutrophils % Seg Neuts % (Manual) Lymphocytes % (Manual) Seg Neutrophils # Seg Neutrophils # Man Lymphocytes # (Manual) POC ABG pH POC ABG pCO2 POC ABG pO2 Sodium 149 H Potassium 3.1 L Chloride 109.2 H Carbon Dioxide BUN 36 H Creatinine 0.5 L Glucose 164 H POC Glucose 154 H 163 H Calcium 7.5 L Phosphorus Magnesium Iron TIBC Ferritin Alkaline Phosphatase NT-Pro-B Natriuret Pep Total Protein Albumin Lipase Free T4 11/16/18 11/16/18 11/16/18 05:54 12:05 12:57 WBC RBC Hgb Hct MCV MCH MCHC RDW Plt Count Lymph % (Auto) [place] % (Auto) Lymph # [place] # Seg Neutrophils % Seg Neuts % (Manual) Lymphocytes % (Manual) Seg Neutrophils # Seg Neutrophils # Man Lymphocytes # (Manual) POC ABG pH POC ABG pCO2 POC ABG pO2 Sodium 150 H Potassium 3.0 L Chloride 109.0 H Carbon Dioxide BUN 41 H Creatinine 0.5 L Glucose 158 H POC Glucose 168 H 176 H Calcium 7.6 L Phosphorus Magnesium Iron TIBC Ferritin Alkaline Phosphatase NT-Pro-B Natriuret Pep Total Protein Albumin Lipase Free T4 11/16/18 11/16/18 11/17/18 16:49 23:22 04:25 WBC 16.2 H RBC 2.72 L Hgb 8.7 L Hct 25.9 L MCV MCH MCHC RDW 15.6 H Plt Count Lymph % (Auto) [place] % (Auto) Lymph # [place] # Seg Neutrophils % Seg Neuts % (Manual) 97.0 H Lymphocytes % (Manual) 1.0 L Seg Neutrophils # Seg Neutrophils # Man 15.7 H Lymphocytes # (Manual) 0.2 L POC ABG pH POC ABG pCO2 POC ABG pO2 Sodium Potassium Chloride Carbon Dioxide BUN Creatinine Glucose POC Glucose 163 H 230 H Calcium Phosphorus Magnesium Iron TIBC Ferritin Alkaline Phosphatase NT-Pro-B Natriuret Pep Total Protein Albumin Lipase Free T4 11/17/18 11/17/18 11/17/18 04:25 05:56 12:39 WBC RBC Hgb Hct MCV MCH MCHC RDW Plt Count Lymph % (Auto) [place] % (Auto) Lymph # [place] # Seg Neutrophils % Seg Neuts % (Manual) Lymphocytes % (Manual) Seg Neutrophils # Seg Neutrophils # Man Lymphocytes # (Manual) POC ABG pH POC ABG pCO2 POC ABG pO2 Sodium 152 H Potassium 3.4 L Chloride 109.9 H Carbon Dioxide 32 H BUN 40 H Creatinine 0.5 L Glucose 155 H POC Glucose 173 H 193 H Calcium 7.9 L Phosphorus Magnesium Iron TIBC Ferritin Alkaline Phosphatase NT-Pro-B Natriuret Pep Total Protein Albumin Lipase Free T4 11/17/18 11/17/18 11/18/18 17:08 23:06 04:26 WBC 18.3 H RBC 2.52 L Hgb 8.0 L Hct 24.5 L MCV MCH MCHC RDW 16.0 H Plt Count Lymph % (Auto) [place] % (Auto) Lymph # [place] # Seg Neutrophils % Seg Neuts % (Manual) 96.0 H Lymphocytes % (Manual) 0 L Seg Neutrophils # Seg Neutrophils # Man 17.6 H Lymphocytes # (Manual) 0.0 L POC ABG pH POC ABG pCO2 POC ABG pO2 Sodium Potassium Chloride Carbon Dioxide BUN Creatinine Glucose POC Glucose 203 H 167 H Calcium Phosphorus Magnesium Iron TIBC Ferritin Alkaline Phosphatase NT-Pro-B Natriuret Pep Total Protein Albumin Lipase Free T4 11/18/18 11/18/18 11/18/18 04:26 05:29 13:52 WBC RBC Hgb Hct MCV MCH MCHC RDW Plt Count Lymph % (Auto) [place] % (Auto) Lymph # [place] # Seg Neutrophils % Seg Neuts % (Manual) Lymphocytes % (Manual) Seg Neutrophils # Seg Neutrophils # Man Lymphocytes # (Manual) POC ABG pH POC ABG pCO2 POC ABG pO2 Sodium 149 H Potassium Chloride 110.5 H Carbon Dioxide BUN 41 H Creatinine 0.4 L Glucose 127 H POC Glucose 128 H 109 H Calcium 7.9 L Phosphorus Magnesium Iron TIBC Ferritin Alkaline Phosphatase NT-Pro-B Natriuret Pep Total Protein Albumin Lipase Free T4 11/18/18 11/18/18 11/19/18 18:05 23:33 05:34 WBC RBC Hgb Hct MCV MCH MCHC RDW Plt Count Lymph % (Auto) [place] % (Auto) Lymph # [place] # Seg Neutrophils % Seg Neuts % (Manual) Lymphocytes % (Manual) Seg Neutrophils # Seg Neutrophils # Man Lymphocytes # (Manual) POC ABG pH POC ABG pCO2 POC ABG pO2 Sodium Potassium Chloride Carbon Dioxide BUN Creatinine Glucose POC Glucose 174 H 178 H 116 H Calcium Phosphorus Magnesium Iron TIBC Ferritin Alkaline Phosphatase NT-Pro-B Natriuret Pep Total Protein Albumin Lipase Free T4 11/19/18 11/19/18 11/19/18 08:35 08:35 11:31 WBC 22.3 H RBC 2.80 L Hgb 8.9 L Hct 26.7 L MCV MCH MCHC RDW 16.5 H Plt Count Lymph % (Auto) [place] % (Auto) Lymph # [place] # Seg Neutrophils % Seg Neuts % (Manual) Lymphocytes % (Manual) Seg Neutrophils # Seg Neutrophils # Man Lymphocytes # (Manual) POC ABG pH POC ABG pCO2 POC ABG pO2 Sodium 147 H Potassium Chloride 107.2 H Carbon Dioxide BUN 35 H Creatinine 0.3 L Glucose 117 H POC Glucose 161 H Calcium 7.9 L Phosphorus Magnesium Iron TIBC Ferritin Alkaline Phosphatase NT-Pro-B Natriuret Pep Total Protein Albumin Lipase Free T4 11/19/18 11/20/18 11/20/18 23:43 04:19 04:19 WBC 13.7 H RBC 2.50 L Hgb 8.0 L Hct 24.2 L MCV MCH MCHC RDW 16.9 H Plt Count Lymph % (Auto) [place] % (Auto) Lymph # [place] # Seg Neutrophils % Seg Neuts % (Manual) Lymphocytes % (Manual) Seg Neutrophils # Seg Neutrophils # Man Lymphocytes # (Manual) POC ABG pH POC ABG pCO2 POC ABG pO2 Sodium Potassium Chloride Carbon Dioxide BUN 35 H Creatinine 0.3 L Glucose 178 H POC Glucose 243 H Calcium 7.9 L Phosphorus Magnesium Iron TIBC Ferritin Alkaline Phosphatase NT-Pro-B Natriuret Pep Total Protein Albumin Lipase Free T4 0611/21/18 11/21/18 05:38 05:37 05:49 WBC 16.1 H RBC 2.76 L Hgb 8.9 L Hct 26.8 L MCV MCH MCHC RDW 16.8 H Plt Count Lymph % (Auto) [place] % (Auto) Lymph # [place] # Seg Neutrophils % Seg Neuts % (Manual) Lymphocytes % (Manual) Seg Neutrophils # Seg Neutrophils # Man Lymphocytes # (Manual) POC ABG pH POC ABG pCO2 POC ABG pO2 Sodium Potassium Chloride Carbon Dioxide BUN Creatinine Glucose POC Glucose 202 H 162 H Calcium Phosphorus Magnesium Iron TIBC Ferritin Alkaline Phosphatase NT-Pro-B Natriuret Pep Total Protein Albumin Lipase Free T4 11/21/18 05:49 WBC RBC Hgb Hct MCV MCH MCHC RDW Plt Count Lymph % (Auto) [place] % (Auto) Lymph # [place] # Seg Neutrophils % Seg Neuts % (Manual) Lymphocytes % (Manual) Seg Neutrophils # Seg Neutrophils # Man Lymphocytes # (Manual) POC ABG pH POC ABG pCO2 POC ABG pO2 Sodium 148 H Potassium Chloride 108.1 H Carbon Dioxide BUN 33 H Creatinine 0.3 L Glucose 133 H POC Glucose Calcium 8.1 L Phosphorus Magnesium Iron TIBC Ferritin Alkaline Phosphatase NT-Pro-B Natriuret Pep Total Protein Albumin Lipase Free T4 Allied health notes reviewed: nursing
[2018-11-21] MEDS: ATIVAN IV PRN (11:47)
[2018-11-21] MEDS: DURAGESIC TD SCH (11:52)
[2018-11-21] MEDS: SOLU-Medrol IV SCH ×2 (11:53→22:44)
[2018-11-21] MEDS: PREVACID SOLUTAB FEEDTUBE SCH (11:54)
[2018-11-21] MEDS: SODIUM CHLORIDE FLUSH SYRINGE 10 ML IV SCH ×3 (14:29→22:46)
[2018-11-21] MEDS: LOPRESSOR PO SCH (14:30)
[2018-11-21] MEDS: LOVENOX SUB-Q SCH (22:44)
--- NOTE | 2018-11-21 23:55 | Hem/Onc Progress Note ---
Assessment and Plan 1. h/o Thrombocytopenia, likely medication, pts medical status related. better 2. History of colon surgery in the past, details not clear. 3. History of bowel issues. Seen by surgical team. - pSBO and "contained" gastric perforation 4. h/o TPN. 5. h/o Ayla, ID following. 6. Chronic obstructive pulmonary disease. 7. Hypertension. 8. History of lupus. 9. Aspiration pneumonia. 10. The patient was intubated. 11. Renal impairment. 11/21 pt on vent - trach - pulm following anemia - h/o b12 inj at home - monthly - s/p same IV iron d/w - Patient Problems (1) Thrombocytopenia Current Visit: Yes Status: Acute Subjective Date of service: 11/21/18 Principal diagnosis: anemia Interval history: trach - T tube trial Objective - Exam Narrative Exam: Pain none General appearance no acute distress Performance status - completely disabled Eyes EOM intact ENT hearing intact/ Clear oral mucosa/ others LNs cervical not palpable Neck normal ROM Respiratory Normal Breath sounds - diminished b/l CVS S1 S2 + Extremities normal temperature General GI Soft non tender Rectal deferred Female - deferred Skin warm Musculoskeletal generalized weakness Neurologically moves all extremities - Constitutional Vitals: Last Vital Signs Temp 98.6 F 11/21/18 23:18 Pulse 72 11/21/18 23:23 Resp 22 11/21/18 19:11 BP 103/45 11/21/18 23:23 Pulse Ox 99 11/21/18 23:23 - Labs Lab Results: Laboratory Results - last 24 hr 11/21/18 11/21/18 11/21/18 05:37 05:49 05:49 WBC 16.1 H RBC 2.76 L Hgb 8.9 L Hct 26.8 L MCV 97 MCH 32 MCHC 33 RDW 16.8 H Plt Count 308 Sodium 148 H Potassium 4.6 Chloride 108.1 H Carbon Dioxide 30 Anion Gap 15 BUN 33 H Creatinine 0.3 L Estimated GFR > 60 BUN/Creatinine Ratio 110 Glucose 133 H POC Glucose 162 H Calcium 8.1 L 11/21/18 11/21/18 11/21/18 12:12 22:26 23:44 WBC RBC Hgb Hct MCV MCH MCHC RDW Plt Count Sodium Potassium Chloride Carbon Dioxide Anion Gap BUN Creatinine Estimated GFR BUN/Creatinine Ratio Glucose POC Glucose 112 H 184 H 177 H Calcium Medications & Allergies - Medications Allergies/Adverse Reactions: Allergies Sulfa (Sulfonamide Antibiotics) Allergy (Intermediate, Verified 10/22/18 16:30) Rash metoclopramide HCl [From Reglan] Allergy (Verified 10/22/18 16:30) Dizziness prochlorperazine [From Compazine] Allergy (Verified 10/22/18 16:30) NECK STIFFNESS Home Medications: Home Medications Medication Instructions Recorded Confirmed Last Taken Type Ondansetron 4 mg PO Q6HR PRN 12/05/16 10/22/18 10/29/17 History Propranolol HCl [Propranolol HCl 60 mg PO DAILY 12/05/16 10/22/18 10/30/17 22:00 History ER] QUEtiapine [SEROquel] 300 mg PO DAILY 12/05/16 10/22/18 10/30/17 History Lasix TAB 40 mg PO PRN PRN 12/07/16 10/22/18 10/24/17 History Percocet 10/325 mg 1 tab PO PRN PRN 12/07/16 10/22/18 10/30/17 History Albuterol Sulfate [Albuterol 0.63% 0.63 mg IH TID PRN 10/22/17 10/22/18 10/29/17 History NEBS] Active Medications: Generic Name Dose Route Start Last Admin Trade Name Freq PRN Reason Stop Dose Admin Acetaminophen 650 mg 10/22/18 20:10 11/17/18 20:17 Tylenol PO 650 mg Q4H PRN Administration Pain MILD(1-3)/Fever >100.5/PORTER Albuterol 2.5 mg 10/22/18 20:14 11/05/18 16:35 Proventil IH 2.5 mg Q4HRT PRN Administration Shortness Of Breath Lipase/Protease/Amylase 1 each 11/05/18 10:13 Pancremaranda Simpson 10,500 Unit FEEDTUBE PRN PRN For Clogged Feeding Tube Arformoterol Tartrate 15 mcg 11/05/18 20:00 11/21/18 19:10 Brovana Nebu IH 15 mcg Q12HRT RICK Administration Budesonide 0.5 mg 10/23/18 08:00 11/21/18 19:10 Pulmicort IH 0.5 mg Q12HRT RICK Administration Clonazepam 1 mg 11/18/18 11:00 11/21/18 22:44 Klonopin PO 1 mg TID RICK Administration Dextrose 50 ml 10/26/18 23:40 10/27/18 00:20 D50w (25gm) Syringe IV 50 ml PRN PRN Administration Hypoglycemia Enoxaparin Sodium 40 mg 11/14/18 22:00 11/21/18 22:44 Lovenox SUB-Q 40 mg QDAY@2200 RICK Administration Fentanyl 50 mcg 11/18/18 11:00 11/21/18 11:52 Duragesic TD 50 mcg Q3D RICK Administration Gabapentin 600 mg 11/12/18 10:00 11/21/18 23:03 Neurontin PO 600 mg Q8HR RICK Administration Hydralazine HCl 10 mg 10/22/18 21:41 11/07/18 00:04 Apresoline IV 10 mg Q4HR PRN Administration Blood Pressure Hydromorphone HCl 1 mg 11/12/18 09:55 11/21/18 09:01 Dilaudid IV 1 mg Q4H PRN Administration Pain , Severe (7-10) Hydrophilic Ointment 1 applic 11/07/18 09:14 Vaseline Lip Therapy TP Q2HR PRN Dry Lips Insulin Human Isoph/Insulin Regular 12 unit 11/10/18 22:00 11/21/18 22:46 Humulin 70/30 SUB-Q 12 unit BID RICK Administration Insulin Human Lispro 0 unit 10/29/18 12:00 11/21/18 14:28 Humalog SUB-Q Not Given Q6HR [facility] Protocol Lansoprazole 30 mg 11/17/18 10:00 11/21/18 11:54 Prevacid Solutab FEEDTUBE 30 mg QDAY RICK Administration Lorazepam 0.5 mg 11/18/18 11:00 11/21/18 11:47 Ativan IV 0.5 mg Q6H PRN Administration Anxiety Methylprednisolone Sodium Succinate 20 mg 11/20/18 22:00 11/21/18 22:44 Solu-Medrol IV 20 mg Q12HR RICK Administration Multi-Ingred Cream/Lotion/Oil/Oint 1 applic 11/07/18 09:14 Artificial Tears Ophth Oint OU Q4HR PRN Dry Eye(s) Ondansetron HCl 4 mg 10/24/18 10:05 10/25/18 17:26 Zofran IV 4 mg Q6H PRN Administration Nausea And Vomiting Phenol 1 spray 10/28/18 10:16 Chloraseptic MM PRN PRN Sore Throat Promethazine HCl 25 mg 10/22/18 20:10 10/22/18 21:21 Phenergan [place] 25 mg Q6H PRN Administration Nausea And Vomiting Propranolol HCl 20 mg 11/18/18 14:00 11/21/18 22:45 Inderal PO 20 mg TID RICK Administration Quetiapine Fumarate 300 mg 11/12/18 10:00 11/21/18 11:54 Seroquel PO 300 mg DAILY RICK Administration Simple Syrup 15 ml 11/05/18 10:13 Simple Syrup FEEDTUBE PRN PRN Hypoglycemia Simple Syrup 30 ml 11/05/18 10:13 Simple Syrup FEEDTUBE PRN PRN Hypoglycemia Sodium Bicarbonate 325 mg 11/05/18 10:13 Sodium Bicarbonate FEEDTUBE PRN PRN For Clogged Feeding Tube Sodium Chloride 10 ml 10/22/18 22:00 11/21/18 22:46 Sodium Chloride Flush Syringe 10 Ml IV 10 ml BID RICK Administration Sodium Chloride 10 ml 10/22/18 20:10 11/09/18 14:29 Sodium Chloride Flush Syringe 10 Ml IV 10 ml PRN PRN Administration LINE FLUSH
[2018-11-22] MEDS: DILAUDID IV PRN ×2 (02:58→23:34)
[2018-11-22] MEDS: HumaLOG SUB-Q SCH ×5 (03:42→17:56)
[2018-11-22] MEDS: TYLENOL PO PRN ×2 (05:57→09:34)
[2018-11-22] MEDS: NEURONTIN PO SCH ×3 (05:58→23:36)
[2018-11-22 07:10] LABS: Hemoglobin 8.6 gm/dl (10.1-14.3); Mean Corpuscular HGB Conc 33 % (30-34); Mean Corpuscular Volume 97 fl (79-97); Platelet Count 269 K/mm3 (140-440); Red Blood Count 2.69 M/mm3 (3.65-5.03); Red Cell Distribution Width 16.3 % (13.2-15.2)
[2018-11-22 07:13] LABS: BUN/Creatinine Ratio 97; Blood Urea Nitrogen 29 mg/dL (7-17); Calcium 7.4 mg/dL (8.4-10.2); Hemolysis Index 4
--- NOTE | 2018-11-22 08:14 | Progress Note ---
Assessment and Plan Assessment and plan: Patient is 73-year-old female with history of hypertension, lupus, fibromyalgia, COPD, opioid dependence (follows Dr. Felix Muñiz at pain clinic) who presented to [facility] ED with complaints of intractable nausea, vomiting, diarrhea for 3 days. On initial presentation to the ED she was found to be tachycardiac with heart rate 113 BPM, leukocytosis with WBC 11.5, elevated BUN/Cr 51/2.1. Patient has history of COPD and at baseline does not require home oxygen use. She was admitted to [facility]. GI was consulted, she was evaluated. CT Abdomen revealed partial SBO versus ileus therefore surgeon consulted. Also patient became more short of breath, placed on BIPAP with no improvement then intubated 10/26/18 for acute resp failure and transferred to ICU. Obstruction series completed on 10/27 which showed improved but small bowel and stomach dilatation. Follow-up series on 10/28 showed no significant change since previous study. NG tube was removed due to patient not tolerating/refusing. Patient was placed back on BiPAP but decompensated on the night of 10/28/18 and had to be reintubated. Patient currently on mechanical ventilation. Patient has had further complications now with findings consistent with contained gastric perforation on repeat CT scan 10/30, managed conservatively. She was extubated 11/05, re-intubated 11/07/18. This is 3rd intubation so Tracheostomy was recommended and done 11/13/18. No PEG yet, for at least 2 weeks because of recent gastric perforation. She has anxiety and on medications. Case management working on placement to LTAC. Acute hypoxic respiratory failure. Patient was reintubated on 10/28/18 and currently on mechanical ventilation. Etiology secondary to COPD/pneumonia/sepsis. Extubated 11/05, re-intubated 11/07 Wean mechanical ventilation per pulmonary. Patient Initiated on T piece trial yesterday, monitor during the day. The patient tolerated 4 hours T piece yesterday. Continue to be stressed today and mechanical vent at nighttime. Gastric perforation. Repeat CT scan on 10/30 revealed pSBO resolved, no evidence for bowel ischemia. Small contained gastric perforation at lesser curve. No gross free air or contrast extravasation. Surgery recommends conservative management Sepsis/candidemia. Etiology initially most likely related to aspiration pneumonia and gastric perforation. Patient now with Ayla glabrata. PICC line removed. Repeat fungal cultures are negative. Completed a 14 day course of antifungals. Removed current central line and inserted midline. Thrombocytopenia. Etiology likely secondary to sepsis. Hematology following. Bilateral upper lobe/aspiration pneumonia. Sputum culture positive for Escherichia coli and stenotrophomonas. Bilateral pleural effusions. Acute exacerbation COPD. Scheduled Duo Nebs and Pulmicort; albuterol when necessary Presumed aspiration pneumonia versus healthcare associated pneumonia. Tracheal aspirate cultures from 10/28 with Escherichia coli and stenotrophomonas. Co mpleted antibiotics. Hypokalemia. Replete potassium as needed. Hypertension. IV hydralazine when necessary Lupus. Supportive care Fibromyalgia. supportive care History of opioid dependence ADWOA due to vasomotor nephropathy, now resolved Full code status Plan is for LTAC placement The high probability of a clinically significant, sudden or life threatening deterioration of the [GI and respiratory] system(s) required my full and direct attention, intervention and personal management. The aggregate critical care time was [33] minutes. This time is in addition to time spent performing reported procedures but includes the following: [x] Data Review and interpretation [x] Patient assessment and monitoring of vital signs [x] Documentation [x] Medication orders and management History Interval history: Still has diarrhea No abd pain currently anxious on and off Hospitalist Physical - Physical exam Narrative exam: Gen: Not in distress, tracheostomy HEENT: Normocephalic, atraumatic, NG tube Neck: supple, no JVD Heart: S1 and S2 reg, no murmurs, rubs or gallop Lungs: Clear bilat, decreased breath sounds bilat. no wheeze Abd: soft, non tender, no rebound tenderness, non distended, BS present Ext: No edema, no clubbing, no cyanosis, Neuro: Awake,alert, follows commands, moves all ext - Constitutional Vitals: Temp Pulse Resp BP Pulse Ox 99.1 F 82 13 112/53 100 11/22/18 03:27 11/22/18 07:00 11/22/18 07:00 11/22/18 07:00 11/22/18 07:00 General appearance: Present: other (intubated, opens eyes to commands) Results - Labs CBC & Chem 7: 11/22/18 06:10 11/22/18 06:10 Labs: Laboratory Last Values WBC 16.7 K/mm3 (4.5-11.0) H 11/22/18 06:10 RBC 2.69 M/mm3 (3.65-5.03) L 11/22/18 06:10 Hgb 8.6 gm/dl (10.1-14.3) L 11/22/18 06:10 Hct 26.0 % (30.3-42.9) L 11/22/18 06:10 MCV 97 fl (79-97) 11/22/18 06:10 MCH 32 pg (28-32) 11/22/18 06:10 MCHC 33 % (30-34) 11/22/18 06:10 RDW 16.3 % (13.2-15.2) H 11/22/18 06:10 Plt Count 269 K/mm3 (140-440) 11/22/18 06:10 Lymph % (Auto) Information Strategist 11/14/18 07:59 [place] % (Auto) Information Strategist 11/14/18 07:59 Eos % (Auto) Information Strategist 11/14/18 07:59 Baso % (Auto) Information Strategist 11/14/18 07:59 Lymph # Information Strategist 11/14/18 07:59 [place] # Information Strategist 11/14/18 07:59 Eos # Information Strategist 11/14/18 07:59 Baso # Information Strategist 11/14/18 07:59 Add Manual Diff Complete 11/18/18 04:26 Total Counted 100 11/18/18 04:26 Seg Neutrophils % Information Strategist 11/17/18 04:25 Seg Neuts % (Manual) 96.0 % (40.0-70.0) H 11/18/18 04:26 1.0 % 11/18/18 04:26 0 % (13.4-35.0) L 11/18/18 04:26 Reactive Lymphs % (Man) 0 % 11/18/18 04:26 3.0 % (0.0-7.3) 11/18/18 04:26 0 % (0.0-4.3) 11/18/18 04:26 0 % (0.0-1.8) 11/18/18 04:26 0 % 11/18/18 04:26 0 % 11/18/18 04:26 0 % 11/18/18 04:26 0 % 11/18/18 04:26 Nucleated RBC % Not Reportable 11/18/18 04:26 Seg Neutrophils # Information Strategist 11/14/18 07:59 Seg Neutrophils # Man 17.6 K/mm3 (1.8-7.7) H 11/18/18 04:26 Band Neutrophils # 0.2 K/mm3 11/18/18 04:26 0.0 K/mm3 (1.2-5.4) L 11/18/18 04:26 Abs React Lymphs (Man) 0.0 K/mm3 11/18/18 04:26 0.5 K/mm3 (0.0-0.8) 11/18/18 04:26 0.0 K/mm3 (0.0-0.4) 11/18/18 04:26 0.0 K/mm3 (0.0-0.1) 11/18/18 04:26 0.0 K/mm3 11/18/18 04:26 0.0 K/mm3 11/18/18 04:26 0.0 K/mm3 11/18/18 04:26 Blast Cells # 0.0 K/mm3 11/18/18 04:26 WBC Morphology Not Reportable 11/18/18 04:26 WBC Morphology TNR 11/18/18 04:26 Hypersegmented Neuts Not Reportable 11/18/18 04:26 Hyposegmented Neuts Not Reportable 11/18/18 04:26 Hypogranular Neuts Not Reportable 11/18/18 04:26 Not Reportable 11/18/18 04:26 Not Reportable 11/18/18 04:26 Not Reportable 11/18/18 04:26 Not Reportable 11/18/18 04:26 Not Reportable 11/18/18 04:26 Not Reportable 11/18/18 04:26 Consistent w auto 11/18/18 04:26 Not Reportable 11/18/18 04:26 Plt Clumps, EDTA Not Reportable 11/18/18 04:26 Not Reportable 11/18/18 04:26 Not Reportable 11/18/18 04:26 Not Reportable 11/18/18 04:26 Plt Morphology Comment Not Reportable 11/18/18 04:26 RBC Morphology Not Reportable 11/18/18 04:26 Dimorphic RBCs Not Reportable 11/18/18 04:26 Not Reportable 11/18/18 04:26 Not Reportable 11/18/18 04:26 Not Reportable 11/18/18 04:26 Not Reportable 11/18/18 04:26 Not Reportable 11/18/18 04:26 Not Reportable 11/18/18 04:26 Not Reportable 11/18/18 04:26 Not Reportable 11/18/18 04:26 Not Reportable 11/18/18 04:26 Not Reportable 11/18/18 04:26 Not Reportable 11/18/18 04:26 Not Reportable 11/18/18 04:26 Few 11/17/18 04:25 Not Reportable 11/18/18 04:26 Not Reportable 11/18/18 04:26 Not Reportable 11/18/18 04:26 Not Reportable 11/18/18 04:26 Not Reportable 11/18/18 04:26 Not Reportable 11/18/18 04:26 Not Reportable 11/18/18 04:26 Acanthocytes (Spur) Not Reportable 11/18/18 04:26 Rouleaux Not Reportable 11/18/18 04:26 Not Reportable 11/18/18 04:26 Not Reportable 11/18/18 04:26 Not Reportable 11/18/18 04:26 Not Reportable 11/18/18 04:26 Hem Pathologist Commnt No 11/18/18 04:26 Heparin Anti-Xa, Unfract Negative (Negative) 10/30/18 13:58 POC ABG pH 7.446 (7.35-7.45) 11/15/18 11:33 POC ABG pCO2 46.1 (35-45) H 11/15/18 11:33 POC ABG pO2 107 (80-105) H 11/15/18 11:33 POC ABG HCO3 31.8 (22-26 mml/L) 11/15/18 11:33 POC ABG Total CO2 33 (23-27mmol/L) 11/15/18 11:33 POC ABG O2 Sat 98 11/15/18 11:33 POC ABG Base Excess 8 ((-2) - (+3)mmol/L) 11/15/18 11:33 30 % 11/15/18 11:33 Sodium 141 mmol/L (137-145) 11/22/18 06:10 Potassium 4.4 mmol/L (3.6-5.0) 11/22/18 06:10 Chloride 103.1 mmol/L (98-107) 11/22/18 06:10 Carbon Dioxide 30 mmol/L (22-30) 11/22/18 06:10 12 mmol/L 11/22/18 06:10 BUN 29 mg/dL (7-17) H 11/22/18 06:10 0.3 mg/dL (0.7-1.2) L 11/22/18 06:10 Estimated GFR > 60 ml/min 11/22/18 06:10 97 % 11/22/18 06:10 Glucose 147 mg/dL (65-100) H 11/22/18 06:10 POC Glucose 183 (70-105) H 11/22/18 05:35 Lactic Acid 1.60 mmol/L (0.7-2.0) 10/26/18 15:03 Calcium 7.4 mg/dL (8.4-10.2) L 11/22/18 06:10 Phosphorus 2.80 mg/dL (2.5-4.5) 11/11/18 05:50 Magnesium 1.80 mg/dL (1.7-2.3) 11/11/18 05:50 Iron 31 ug/dL (37-170) L 11/14/18 03:28 TIBC 173 mcg/dL (250-450) L 11/14/18 03:28 510.3 ng/mL (13.0-400.0) H 11/14/18 03:28 0.30 mg/dL (0.1-1.2) 11/11/18 05:50 AST 26 units/L (5-40) 11/11/18 05:50 ALT 28 units/L (7-56) 11/11/18 05:50 142 units/L (35-129) H 11/11/18 05:50 NT-Pro-B Natriuret Pep 4507 pg/mL (0-900) H 11/07/18 04:55 4.4 g/dL (6.3-8.2) L 11/11/18 05:50 2.1 g/dL (3.9-5) L 11/11/18 05:50 0.9 % 11/11/18 05:50 Triglycerides 132 mg/dL (2-149) 11/01/18 06:40 10 units/L (13-60) L 10/22/18 15:54 See scanned result 10/30/18 13:58 TSH 3.150 mlU/mL (0.270-4.200) 10/31/18 17:00 Free T4 0.49 ng/dL (0.76-1.46) L 10/31/18 17:00 Dulce (Yellow) 10/22/18 19:10 Clear (Clear) 10/22/18 19:10 5.0 (5.0-7.0) 10/22/18 19:10 Ur Specific [place] 1.018 (1.003-1.030) 10/22/18 19:10 30 mg/dl mg/dL (Negative) 10/22/18 19:10 Neg mg/dL (Negative) 10/22/18 19:10 Tr mg/dL (Negative) 10/22/18 19:10 Neg (Negative) 10/22/18 19:10 Neg (Negative) 10/22/18 19:10 Neg (Negative) 10/22/18 19:10 < 2.0 mg/dL (<2.0) 10/22/18 19:10 Ur Leukocyte Esterase Neg (Negative) 10/22/18 19:10 1.0 /HPF (0.0-6.0) 10/22/18 19:10 3.0 /HPF (0.0-6.0) 10/22/18 19:10 Heparin-induced Plt Ab Negative (Negative) 10/30/18 13:58 UF Heparin High Dose 0 % Release 10/30/18 13:58 KIMO UFH Low Dose 0.1 0 % Release 10/30/18 13:58 KIMO UFH Low Dose 0.5 0 % Release 10/30/18 13:58 Active Medications - Current Medications Current Medications: Generic Name Dose Route Start Last Admin Trade Name Freq PRN Reason Stop Dose Admin Acetaminophen 650 mg 10/22/18 20:10 11/22/18 05:57 Tylenol PO 650 mg Q4H PRN Administration Pain MILD(1-3)/Fever >100.5/PORTER Albuterol 2.5 mg 10/22/18 20:14 11/05/18 16:35 Proventil IH 2.5 mg Q4HRT PRN Administration Shortness Of Breath Lipase/Protease/Amylase 1 each 11/05/18 10:13 Gwendolyn Simpson 10,500 Unit FEEDTUBE PRN PRN For Clogged Feeding Tube Arformoterol Tartrate 15 mcg 11/05/18 20:00 11/21/18 19:10 Brosteve Nebu IH 15 mcg Q12HRT RICK Administration Budesonide 0.5 mg 10/23/18 08:00 11/21/18 19:10 Pulmicort IH 0.5 mg Q12HRT RICK Administration Clonazepam 1 mg 11/18/18 11:00 11/21/18 22:44 Klonopin PO 1 mg TID RICK Administration Dextrose 50 ml 10/26/18 23:40 10/27/18 00:20 D50w (25gm) Syringe IV 50 ml PRN PRN Administration Hypoglycemia Enoxaparin Sodium 40 mg 11/14/18 22:00 11/21/18 22:44 Lovenox SUB-Q 40 mg QDAY@2200 RICK Administration Fentanyl 50 mcg 11/18/18 11:00 11/21/18 11:52 Duragesic TD 50 mcg Q3D RICK Administration Gabapentin 600 mg 11/12/18 10:00 11/22/18 05:58 Neurontin PO 600 mg Q8HR RICK Administration Hydralazine HCl 10 mg 10/22/18 21:41 11/07/18 00:04 Apresoline IV 10 mg Q4HR PRN Administration Blood Pressure Hydromorphone HCl 1 mg 11/12/18 09:55 11/22/18 02:58 Dilaudid IV 1 mg Q4H PRN Administration Pain , Severe (7-10) Hydrophilic Ointment 1 applic 11/07/18 09:14 Vaseline Lip Therapy TP Q2HR PRN Dry Lips Insulin Human Isoph/Insulin Regular 12 unit 11/10/18 22:00 11/21/18 22:46 Humulin 70/30 SUB-Q 12 unit BID RICK Administration Insulin Human Lispro 0 unit 10/29/18 12:00 11/22/18 07:30 Humalog SUB-Q Not Given Q6HR [facility] Protocol Lansoprazole 30 mg 11/17/18 10:00 11/21/18 11:54 Prevacid Solutab FEEDTUBE 30 mg QDAY RICK Administration Lorazepam 0.5 mg 11/18/18 11:00 11/21/18 11:47 Ativan IV 0.5 mg Q6H PRN Administration Anxiety Methylprednisolone Sodium Succinate 20 mg 11/20/18 22:00 11/21/18 22:44 Solu-Medrol IV 20 mg Q12HR RICK Administration Multi-Ingred Cream/Lotion/Oil/Oint 1 applic 11/07/18 09:14 Artificial Tears Ophth Oint OU Q4HR PRN Dry Eye(s) Ondansetron HCl 4 mg 10/24/18 10:05 10/25/18 17:26 Zofran IV 4 mg Q6H PRN Administration Nausea And Vomiting Phenol 1 spray 10/28/18 10:16 Chloraseptic MM PRN PRN Sore Throat Promethazine HCl 25 mg 10/22/18 20:10 10/22/18 21:21 Phenergan CO 25 mg Q6H PRN Administration Nausea And Vomiting Propranolol HCl 20 mg 11/18/18 14:00 11/21/18 22:45 Inderal PO 20 mg TID RICK Administration Quetiapine Fumarate 300 mg 11/12/18 10:00 11/21/18 11:54 Seroquel PO 300 mg DAILY RICK Administration Simple Syrup 15 ml 11/05/18 10:13 Simple Syrup FEEDTUBE PRN PRN Hypoglycemia Simple Syrup 30 ml 11/05/18 10:13 Simple Syrup FEEDTUBE PRN PRN Hypoglycemia Sodium Bicarbonate 325 mg 11/05/18 10:13 Sodium Bicarbonate FEEDTUBE PRN PRN For Clogged Feeding Tube Sodium Chloride 10 ml 10/22/18 22:00 11/21/18 22:46 Sodium Chloride Flush Syringe 10 Ml IV 10 ml BID RICK Administration Sodium Chloride 10 ml 10/22/18 20:10 11/09/18 14:29 Sodium Chloride Flush Syringe 10 Ml IV 10 ml PRN PRN Administration LINE FLUSH Nutrition/Malnutrition Assess - Dietary Evaluation Nutrition/Malnutrition Findings: Nutrition Notes Start: 10/23/18 17:03 Freq: Status: Active Protocol: Document 11/21/18 17:45 RM (Rec: 11/21/18 17:51 RM [id number]) Nutrition Notes Initial or Follow up Reassessment Current Diagnosis COPD,Sepsis,Hypertension, Respiratory Failure Other Pertinent Diagnosis Gastric peforation, bilat pneu Current Diet Promote at 70 ml/hr Labs/Tests Na 148 Pertinent Medications Solu-Medrol Height 5 ft 3 in Weight 61.1 kg [place] Body Weight (kg) 52.27 BMI 23.8 Subjective/Other Information Observed Promote infusing at goal rate. Pt still having diarrhea. Per nurse pt tolerating TF. During rounds MD requested increase of water flush to adress hypernatremia. Percent of energy/protein needs met: 100%/100% Burn Absent Trauma Absent #1 Nutrition Diagnosis Inadequate oral intake Diagnosis Progress(for reassessment Continues documentation) Is patient on ventilator? Yes Is Patient Ambulatory and/or Out of Bed No REE-([facility]-confined to bed) 1314.324 Kcal/Kg value to use for calculation 25 Approximate Energy Requirements Using 1528 kcal/Kg Calculation Used for Recommendations [facility] Additional Notes Pro needs 1.2-2g/kg (based on UBW): 60-100g/day Fluid needs 1ml/kcal Nutrition Intervention Nutrition Support: Promote 70 ml/hr. Water flush of 200 ms q 4 hrs or per MD until hyperatremia resolves. Water flush of 50 ml q 4 hrs once hypernatremia resolves. Kcal 1,680 Protein (gm) 105 Carbohydrates (gm) 93 Fat (gm) 45 Fluid (mL) 1,410 Fiber (gm) 0 Goal #1 TF tolerance Goal #2 TF to continue to meet at least 75% energy and pro needs Follow-Up By: 11/26/18 Additional Comments Follow for TF tolerance, Na lab
[2018-11-22] MEDS: PULMICORT IH SCH ×2 (08:15→19:30)
[2018-11-22] MEDS: BROVANA NEBU IH SCH ×2 (08:15→19:30)
[2018-11-22] MEDS: SOLU-Medrol IV SCH ×2 (09:28→23:35)
[2018-11-22] MEDS: INDERAL PO SCH ×3 (09:29→19:39)
[2018-11-22] MEDS: PREVACID SOLUTAB FEEDTUBE SCH (09:30)
[2018-11-22] MEDS: SODIUM CHLORIDE FLUSH SYRINGE 10 ML IV SCH ×2 (09:31→23:36)
--- NOTE | 2018-11-22 15:05 | Progress Note ---
Assessment and Plan 73 y/o female with bowel obstruction and now acute respiratory failure with hypercapnea, likely multifactorial from pain medications, anti-psychotic therapy and inability to take deep breaths for ventilation, now with fungemia from picc line placement. 1. Patient trached now and doing daily PSV trials. Will continue. Asked RT to extend the time on night shit before resting on Full Vent support. Will try 24 hours of PSV. Today will try T-piece for about 2-4 2. Finished antifungal therapy 3. Tube feeds at goal now. ID concerned about diarrhea but spoke with nutrition and at this point, nothing to change about feeding. ID not concerned about an infectious cause of diarrhea. ID had ordered CT but white count has decreased, no fever. Will cancel. Will also increase Free water to [id number] 4. Changed steroids to BID. Will drop to daily starting tomorrow. 5. CM aware of need for half-way placement post trach. Referrals have been sent out. Still no answer yet 6. Continue PT, did well with this. 8. Continue Klonopin and PRN ativan CCT 31 minutes. Subjective Date of service: 11/22/18 Principal diagnosis: anemia Interval history: No acute events. Currently on T-piece and tolerating. Asleep right now. Sats are good. Na is better this am on the new free water flushes. Objective Vital Signs - 12hr 11/22/18 11/22/18 11/22/18 03:27 03:28 03:30 Temperature 99.1 F Pulse Rate 80 Pulse Rate [ Anterior Bilateral Throughout] Pulse Rate [ From Monitor] Respiratory 16 18 Rate Respiratory Rate [Anterior Bilateral Throughout] Blood Pressure 122/52 O2 Sat by Pulse 100 Oximetry O2 Sat by Pulse Oximetry [ Assessment] 11/22/18 11/22/18 11/22/18 03:35 03:39 04:00 Temperature Pulse Rate 72 71 Pulse Rate [ Anterior Bilateral Throughout] Pulse Rate [ 80 From Monitor] Respiratory 18 16 Rate Respiratory Rate [Anterior Bilateral Throughout] Blood Pressure 122/52 122/52 O2 Sat by Pulse 100 98 99 Oximetry O2 Sat by Pulse Oximetry [ Assessment] 11/22/18 11/22/18 11/22/18 04:30 05:00 05:30 Temperature Pulse Rate 70 77 78 Pulse Rate [ Anterior Bilateral Throughout] Pulse Rate [ From Monitor] Respiratory 16 13 14 Rate Respiratory Rate [Anterior Bilateral Throughout] Blood Pressure 101/42 109/50 113/48 O2 Sat by Pulse 100 100 100 Oximetry O2 Sat by Pulse Oximetry [ Assessment] 11/22/18 11/22/18 11/22/18 05:57 06:00 06:30 Temperature Pulse Rate 75 70 Pulse Rate [ Anterior Bilateral Throughout] Pulse Rate [ From Monitor] Respiratory 16 12 16 Rate Respiratory Rate [Anterior Bilateral Throughout] Blood Pressure 102/40 96/36 O2 Sat by Pulse 100 99 Oximetry O2 Sat by Pulse Oximetry [ Assessment] 11/22/18 11/22/18 11/22/18 07:00 07:30 08:00 Temperature 98 F Pulse Rate 82 74 80 Pulse Rate [ Anterior Bilateral Throughout] Pulse Rate [ From Monitor] Respiratory 13 17 17 Rate Respiratory Rate [Anterior Bilateral Throughout] Blood Pressure 112/53 111/45 108/50 O2 Sat by Pulse 100 100 100 Oximetry O2 Sat by Pulse 100 Oximetry [ Assessment] 11/22/18 11/22/18 11/22/18 08:10 08:15 08:30 Temperature Pulse Rate 72 77 Pulse Rate [ 72 Anterior Bilateral Throughout] Pulse Rate [ From Monitor] Respiratory 19 Rate Respiratory 16 Rate [Anterior Bilateral Throughout] Blood Pressure 108/50 110/51 O2 Sat by Pulse 98 99 100 Oximetry O2 Sat by Pulse Oximetry [ Assessment] 11/22/18 11/22/18 11/22/18 09:00 09:29 09:30 Temperature Pulse Rate 76 72 70 Pulse Rate [ Anterior Bilateral Throughout] Pulse Rate [ From Monitor] Respiratory 14 14 Rate Respiratory Rate [Anterior Bilateral Throughout] Blood Pressure 105/45 105/45 95/38 O2 Sat by Pulse 100 Oximetry O2 Sat by Pulse Oximetry [ Assessment] 11/22/18 11/22/18 11/22/18 10:00 10:05 10:30 Temperature Pulse Rate 79 81 80 Pulse Rate [ Anterior Bilateral Throughout] Pulse Rate [ From Monitor] Respiratory 19 23 20 Rate Respiratory Rate [Anterior Bilateral Throughout] Blood Pressure 94/33 94/33 86/33 O2 Sat by Pulse 100 97 97 Oximetry O2 Sat by Pulse Oximetry [ Assessment] 11/22/18 11/22/18 12:00 13:34 Temperature 98.4 F Pulse Rate 79 Pulse Rate [ Anterior Bilateral Throughout] Pulse Rate [ From Monitor] Respiratory Rate Respiratory Rate [Anterior Bilateral Throughout] Blood Pressure 110/45 O2 Sat by Pulse Oximetry O2 Sat by Pulse Oximetry [ Assessment] Constitutional: asleep Eyes: non-icteric ENT: other (trach in position) Neck: supple, no JVD, other (trach is midline) Effort: mildly labored Ascultation: Bilateral: clear, diminished breath sounds, wheezes (sporadic), rales, rhonchi (sporadic) Percussion: Bilateral: not dull Cardiovascular: regular rate and rhythm Gastrointestinal: hypoactive bowel sounds, non-tender, non-distended, other Integumentary: normal Extremities: no edema Neurologic: normal mental status, non-focal exam Psychiatric: anxious CBC and BMP: 11/22/18 06:10 11/22/18 06:10 ABG, PT/INR, D-dimer: ABG POC ABG pH 7.446 (7.35-7.45) 11/15/18 11:33 POC ABG pCO2 46.1 (35-45) H 11/15/18 11:33 POC ABG pO2 107 (80-105) H 11/15/18 11:33 POC ABG HCO3 31.8 (22-26 mml/L) 11/15/18 11:33 POC ABG Total CO2 33 (23-27mmol/L) 11/15/18 11:33 POC ABG O2 Sat 98 11/15/18 11:33 Abnormal lab findings: Abnormal Labs 10/22/18 10/22/18 10/22/18 15:31 15:54 15:54 WBC 11.5 H RBC 5.35 H Hgb 17.4 H Hct 50.3 H MCV MCH 33 H MCHC 35 H RDW Plt Count Lymph % (Auto) 12.6 L Garza % (Auto) 14.8 H Lymph # Garza # 1.7 H Seg Neutrophils % 72.5 H Seg Neuts % (Manual) Lymphocytes % (Manual) Seg Neutrophils # 8.3 H Seg Neutrophils # Man Lymphocytes # (Manual) POC ABG pH POC ABG pCO2 POC ABG pO2 Sodium 134 L Potassium Chloride 88.1 L Carbon Dioxide BUN 51 H Creatinine 2.1 H Glucose 166 H POC Glucose Calcium Phosphorus Magnesium Iron TIBC Ferritin Alkaline Phosphatase NT-Pro-B Natriuret Pep Total Protein Albumin 3.4 L Lipase 10 L Free T4 10/23/18 10/23/18 10/23/18 04:32 04:32 10:53 WBC RBC Hgb Hct MCV MCH MCHC RDW Plt Count Lymph % (Auto) 10.2 L Garza % (Auto) 14.7 H Lymph # 0.7 L Garza # 1.0 H Seg Neutrophils % 74.9 H Seg Neuts % (Manual) Lymphocytes % (Manual) Seg Neutrophils # Seg Neutrophils # Man Lymphocytes # (Manual) POC ABG pH POC ABG pCO2 POC ABG pO2 Sodium Potassium 3.1 L D 3.5 L Chloride Carbon Dioxide BUN 41 H 37 H Creatinine Glucose 111 H 110 H POC Glucose Calcium 8.1 L 8.1 L Phosphorus Magnesium Iron TIBC Ferritin Alkaline Phosphatase NT-Pro-B Natriuret Pep Total Protein Albumin Lipase Free T4 10/24/18 10/24/18 10/25/18 05:34 05:34 04:51 WBC RBC Hgb Hct MCV MCH MCHC RDW Plt Count Lymph % (Auto) Garza % (Auto) Lymph # Garza # Seg Neutrophils % Seg Neuts % (Manual) Lymphocytes % (Manual) Seg Neutrophils # Seg Neutrophils # Man Lymphocytes # (Manual) POC ABG pH POC ABG pCO2 POC ABG pO2 Sodium Potassium 3.2 L 3.1 L Chloride 109.8 H 114.2 H Carbon Dioxide 17 L D BUN 21 H Creatinine Glucose 134 H 171 H POC Glucose Calcium 7.7 L 7.0 L Phosphorus 0.80 L* Magnesium Iron TIBC Ferritin Alkaline Phosphatase NT-Pro-B Natriuret Pep Total Protein Albumin Lipase Free T4 10/25/18 10/26/18 10/26/18 06:07 02:58 04:57 WBC RBC Hgb Hct MCV 99 H MCH 33 H MCHC RDW Plt Count Lymph % (Auto) Garza % (Auto) Lymph # Garza # Seg Neutrophils % Seg Neuts % (Manual) Lymphocytes % (Manual) Seg Neutrophils # Seg Neutrophils # Man Lymphocytes # (Manual) POC ABG pH 7.090 L 7.320 L POC ABG pCO2 65.0 H 32.8 L POC ABG pO2 76 L Sodium Potassium Chloride Carbon Dioxide BUN Creatinine Glucose POC Glucose Calcium Phosphorus Magnesium Iron TIBC Ferritin Alkaline Phosphatase NT-Pro-B Natriuret Pep Total Protein Albumin Lipase Free T4 10/26/18 10/26/18 10/26/18 06:03 06:03 11:52 WBC 23.8 H RBC Hgb 15.4 H Hct 46.1 H D MCV MCH MCHC RDW Plt Count Lymph % (Auto) Garza % (Auto) Lymph # Garza # Seg Neutrophils % Seg Neuts % (Manual) Lymphocytes % (Manual) Seg Neutrophils # Seg Neutrophils # Man Lymphocytes # (Manual) POC ABG pH POC ABG pCO2 POC ABG pO2 Sodium Potassium Chloride 109.5 H Carbon Dioxide 18 L BUN Creatinine Glucose 128 H POC Glucose 117 H Calcium 8.3 L D Phosphorus Magnesium Iron TIBC Ferritin Alkaline Phosphatase NT-Pro-B Natriuret Pep Total Protein Albumin Lipase Free T4 10/26/18 10/26/18 10/26/18 13:54 17:10 17:32 WBC RBC Hgb Hct MCV MCH MCHC RDW Plt Count Lymph % (Auto) Garza % (Auto) Lymph # Garza # Seg Neutrophils % Seg Neuts % (Manual) Lymphocytes % (Manual) Seg Neutrophils # Seg Neutrophils # Man Lymphocytes # (Manual) POC ABG pH 7.215 L POC ABG pCO2 31.8 L POC ABG pO2 69 L 204 H Sodium Potassium 3.0 L D Chloride 114.5 H Carbon Dioxide 21 L BUN Creatinine Glucose POC Glucose Calcium 7.6 L Phosphorus Magnesium 1.40 L Iron TIBC Ferritin Alkaline Phosphatase NT-Pro-B Natriuret Pep Total Protein Albumin Lipase Free T4 10/26/18 10/27/18 10/27/18 23:13 00:40 01:09 WBC RBC Hgb Hct MCV MCH MCHC RDW Plt Count Lymph % (Auto) Garza % (Auto) Lymph # Garza # Seg Neutrophils % Seg Neuts % (Manual) Lymphocytes % (Manual) Seg Neutrophils # Seg Neutrophils # Man Lymphocytes # (Manual) POC ABG pH POC ABG pCO2 POC ABG pO2 Sodium Potassium 3.4 L Chloride 115.0 H Carbon Dioxide 14 L D BUN Creatinine Glucose 228 H POC Glucose 48 L 264 H Calcium 7.1 L Phosphorus Magnesium Iron TIBC Ferritin Alkaline Phosphatase NT-Pro-B Natriuret Pep Total Protein Albumin Lipase Free T4 10/27/18 10/27/18 10/27/18 05:00 05:00 05:16 WBC 22.5 H RBC Hgb 14.7 H Hct 44.4 H MCV MCH MCHC RDW Plt Count Lymph % (Auto) Garza % (Auto) Lymph # Garza # Seg Neutrophils % Seg Neuts % (Manual) Lymphocytes % (Manual) Seg Neutrophils # Seg Neutrophils # Man Lymphocytes # (Manual) POC ABG pH 7.304 L POC ABG pCO2 POC ABG pO2 116 H Sodium Potassium Chloride 118.4 H Carbon Dioxide 16 L BUN Creatinine Glucose 123 H POC Glucose Calcium 7.7 L Phosphorus Magnesium 2.60 H Iron TIBC Ferritin Alkaline Phosphatase NT-Pro-B Natriuret Pep Total Protein Albumin Lipase Free T4 10/28/18 10/28/18 10/28/18 04:25 04:25 15:37 WBC 23.5 H RBC Hgb Hct MCV MCH MCHC RDW Plt Count Lymph % (Auto) Garza % (Auto) Lymph # Garza # Seg Neutrophils % Seg Neuts % (Manual) Lymphocytes % (Manual) Seg Neutrophils # Seg Neutrophils # Man Lymphocytes # (Manual) POC ABG pH POC ABG pCO2 POC ABG pO2 Sodium 147 H Potassium Chloride 116.9 H Carbon Dioxide 16 L BUN 23 H Creatinine Glucose POC Glucose 114 H Calcium 8.0 L Phosphorus Magnesium Iron TIBC Ferritin Alkaline Phosphatase NT-Pro-B Natriuret Pep Total Protein Albumin Lipase Free T4 10/28/18 10/28/18 10/28/18 20:33 22:07 23:31 WBC RBC Hgb Hct MCV MCH MCHC RDW Plt Count Lymph % (Auto) Garza % (Auto) Lymph # Garza # Seg Neutrophils % Seg Neuts % (Manual) Lymphocytes % (Manual) Seg Neutrophils # Seg Neutrophils # Man Lymphocytes # (Manual) POC ABG pH 7.202 L 7.235 L POC ABG pCO2 POC ABG pO2 71 L Sodium Potassium Chloride Carbon Dioxide BUN Creatinine Glucose POC Glucose 207 H Calcium Phosphorus Magnesium Iron TIBC Ferritin Alkaline Phosphatase NT-Pro-B Natriuret Pep Total Protein Albumin Lipase Free T4 10/29/18 10/29/18 10/29/18 04:30 04:30 05:26 WBC 21.1 H RBC Hgb Hct MCV MCH MCHC RDW Plt Count Lymph % (Auto) Garza % (Auto) Lymph # Garza # Seg Neutrophils % Seg Neuts % (Manual) 97.0 H Lymphocytes % (Manual) 3.0 L Seg Neutrophils # Seg Neutrophils # Man 20.5 H Lymphocytes # (Manual) 0.6 L POC ABG pH 7.305 L POC ABG pCO2 30.5 L POC ABG pO2 75 L Sodium 147 H Potassium 3.5 L Chloride 120.0 H Carbon Dioxide 17 L BUN 30 H Creatinine Glucose 246 H POC Glucose Calcium 7.9 L Phosphorus Magnesium Iron TIBC Ferritin Alkaline Phosphatase NT-Pro-B Natriuret Pep Total Protein Albumin Lipase Free T4 10/29/18 10/29/18 10/29/18 05:36 11:39 18:00 WBC RBC Hgb Hct MCV MCH MCHC RDW Plt Count Lymph % (Auto) Garza % (Auto) Lymph # Garza # Seg Neutrophils % Seg Neuts % (Manual) Lymphocytes % (Manual) Seg Neutrophils # Seg Neutrophils # Man Lymphocytes # (Manual) POC ABG pH POC ABG pCO2 POC ABG pO2 Sodium Potassium Chloride Carbon Dioxide BUN Creatinine Glucose POC Glucose 204 H 224 H 221 H Calcium Phosphorus Magnesium Iron TIBC Ferritin Alkaline Phosphatase NT-Pro-B Natriuret Pep Total Protein Albumin Lipase Free T4 10/29/18 10/30/18 10/30/18 23:17 05:00 05:00 WBC 21.4 H RBC Hgb Hct MCV MCH MCHC RDW Plt Count 134 L Lymph % (Auto) Garza % (Auto) Lymph # Garza # Seg Neutrophils % Seg Neuts % (Manual) 97.0 H Lymphocytes % (Manual) 3.0 L Seg Neutrophils # Seg Neutrophils # Man 20.8 H Lymphocytes # (Manual) 0.6 L POC ABG pH POC ABG pCO2 POC ABG pO2 Sodium 148 H Potassium 3.1 L Chloride 120.3 H Carbon Dioxide 18 L BUN 31 H Creatinine Glucose 205 H POC Glucose 181 H Calcium 8.0 L Phosphorus Magnesium Iron TIBC Ferritin Alkaline Phosphatase NT-Pro-B Natriuret Pep Total Protein Albumin Lipase Free T4 10/30/18 10/30/18 10/30/18 05:14 05:25 05:26 WBC RBC Hgb Hct MCV MCH MCHC RDW Plt Count Lymph % (Auto) Garza % (Auto) Lymph # Garza # Seg Neutrophils % Seg Neuts % (Manual) Lymphocytes % (Manual) Seg Neutrophils # Seg Neutrophils # Man Lymphocytes # (Manual) POC ABG pH 7.296 L 7.245 L POC ABG pCO2 31.1 L POC ABG pO2 54 L 59 L Sodium Potassium Chloride Carbon Dioxide BUN Creatinine Glucose POC Glucose 199 H Calcium Phosphorus Magnesium Iron TIBC Ferritin Alkaline Phosphatase NT-Pro-B Natriuret Pep Total Protein Albumin Lipase Free T4 10/30/18 10/30/18 10/31/18 13:23 18:25 00:22 WBC RBC Hgb Hct MCV MCH MCHC RDW Plt Count Lymph % (Auto) Garza % (Auto) Lymph # Garza # Seg Neutrophils % Seg Neuts % (Manual) Lymphocytes % (Manual) Seg Neutrophils # Seg Neutrophils # Man Lymphocytes # (Manual) POC ABG pH POC ABG pCO2 POC ABG pO2 Sodium Potassium Chloride Carbon Dioxide BUN Creatinine Glucose POC Glucose 146 H 158 H 162 H Calcium Phosphorus Magnesium Iron TIBC Ferritin Alkaline Phosphatase NT-Pro-B Natriuret Pep Total Protein Albumin Lipase Free T4 10/31/18 10/31/18 10/31/18 04:39 05:14 07:05 WBC RBC Hgb Hct MCV MCH MCHC RDW Plt Count Lymph % (Auto) Garza % (Auto) Lymph # Garza # Seg Neutrophils % Seg Neuts % (Manual) Lymphocytes % (Manual) Seg Neutrophils # Seg Neutrophils # Man Lymphocytes # (Manual) POC ABG pH 7.238 L POC ABG pCO2 POC ABG pO2 Sodium Potassium Chloride 115.8 H Carbon Dioxide 18 L BUN 39 H Creatinine 1.3 H Glucose 167 H POC Glucose 145 H Calcium 7.5 L Phosphorus 1.80 L Magnesium Iron TIBC Ferritin Alkaline Phosphatase NT-Pro-B Natriuret Pep Total Protein Albumin Lipase Free T4 10/31/18 10/31/18 10/31/18 10:43 12:03 17:00 WBC RBC Hgb Hct MCV MCH MCHC RDW Plt Count Lymph % (Auto) Garza % (Auto) Lymph # Garza # Seg Neutrophils % Seg Neuts % (Manual) Lymphocytes % (Manual) Seg Neutrophils # Seg Neutrophils # Man Lymphocytes # (Manual) POC ABG pH 7.304 L POC ABG pCO2 33.3 L POC ABG pO2 Sodium Potassium Chloride Carbon Dioxide BUN Creatinine Glucose POC Glucose 159 H Calcium Phosphorus Magnesium Iron TIBC Ferritin Alkaline Phosphatase NT-Pro-B Natriuret Pep Total Protein Albumin Lipase Free T4 0.49 L 10/31/18 11/01/18 11/01/18 17:00 00:44 05:27 WBC RBC Hgb Hct MCV MCH MCHC RDW Plt Count Lymph % (Auto) Garza % (Auto) Lymph # Garza # Seg Neutrophils % Seg Neuts % (Manual) Lymphocytes % (Manual) Seg Neutrophils # Seg Neutrophils # Man Lymphocytes # (Manual) POC ABG pH 7.248 L POC ABG pCO2 34.8 L POC ABG pO2 135 H Sodium Potassium Chloride Carbon Dioxide BUN Creatinine Glucose POC Glucose 127 H 118 H Calcium Phosphorus Magnesium Iron TIBC Ferritin Alkaline Phosphatase NT-Pro-B Natriuret Pep Total Protein Albumin Lipase Free T4 11/01/18 11/01/18 11/01/18 06:40 06:40 06:53 WBC 18.9 H RBC 3.63 L Hgb Hct MCV MCH MCHC RDW Plt Count 64 L Lymph % (Auto) Garza % (Auto) Lymph # Garza # Seg Neutrophils % Seg Neuts % (Manual) 98.0 H Lymphocytes % (Manual) 1.0 L Seg Neutrophils # Seg Neutrophils # Man 18.5 H Lymphocytes # (Manual) 0.2 L POC ABG pH POC ABG pCO2 POC ABG pO2 Sodium Potassium 3.5 L Chloride 114.2 H Carbon Dioxide 17 L BUN 49 H Creatinine Glucose 107 H POC Glucose 127 H Calcium 7.3 L Phosphorus Magnesium 1.60 L Iron TIBC Ferritin Alkaline Phosphatase NT-Pro-B Natriuret Pep Total Protein Albumin Lipase Free T4 11/01/18 11/01/18 11/01/18 11:49 13:13 17:24 WBC RBC Hgb Hct MCV MCH MCHC RDW Plt Count Lymph % (Auto) Garza % (Auto) Lymph # Garza # Seg Neutrophils % Seg Neuts % (Manual) Lymphocytes % (Manual) Seg Neutrophils # Seg Neutrophils # Man Lymphocytes # (Manual) POC ABG pH POC ABG pCO2 POC ABG pO2 182 H Sodium Potassium Chloride Carbon Dioxide BUN Creatinine Glucose POC Glucose 134 H 111 H Calcium Phosphorus Magnesium Iron TIBC Ferritin Alkaline Phosphatase NT-Pro-B Natriuret Pep Total Protein Albumin Lipase Free T4 11/01/18 11/02/18 11/02/18 23:07 04:32 05:00 WBC RBC Hgb Hct MCV MCH MCHC RDW Plt Count Lymph % (Auto) Garza % (Auto) Lymph # Garza # Seg Neutrophils % Seg Neuts % (Manual) Lymphocytes % (Manual) Seg Neutrophils # Seg Neutrophils # Man Lymphocytes # (Manual) POC ABG pH 7.244 L POC ABG pCO2 33.2 L POC ABG pO2 123 H Sodium Potassium 3.0 L Chloride 114.1 H Carbon Dioxide 15 L BUN 47 H Creatinine Glucose 127 H POC Glucose 123 H Calcium 7.7 L Phosphorus Magnesium Iron TIBC Ferritin Alkaline Phosphatase NT-Pro-B Natriuret Pep Total Protein Albumin Lipase Free T4 11/02/18 11/02/18 11/02/18 05:00 05:29 11:27 WBC RBC Hgb Hct MCV MCH MCHC RDW Plt Count Lymph % (Auto) Garza % (Auto) Lymph # Garza # Seg Neutrophils % Seg Neuts % (Manual) Lymphocytes % (Manual) Seg Neutrophils # Seg Neutrophils # Man Lymphocytes # (Manual) POC ABG pH POC ABG pCO2 POC ABG pO2 Sodium Potassium Chloride Carbon Dioxide BUN Creatinine Glucose POC Glucose 118 H 137 H Calcium Phosphorus Magnesium 1.60 L Iron TIBC Ferritin Alkaline Phosphatase NT-Pro-B Natriuret Pep Total Protein Albumin Lipase Free T4 11/02/18 11/02/18 11/03/18 12:53 23:35 04:14 WBC RBC Hgb Hct MCV MCH MCHC RDW Plt Count Lymph % (Auto) Garza % (Auto) Lymph # Garza # Seg Neutrophils % Seg Neuts % (Manual) Lymphocytes % (Manual) Seg Neutrophils # Seg Neutrophils # Man Lymphocytes # (Manual) POC ABG pH POC ABG pCO2 30.3 L POC ABG pO2 134 H 129 H Sodium Potassium Chloride Carbon Dioxide BUN Creatinine Glucose POC Glucose 115 H Calcium Phosphorus Magnesium Iron TIBC Ferritin Alkaline Phosphatase NT-Pro-B Natriuret Pep Total Protein Albumin Lipase Free T4 11/03/18 11/03/18 11/03/18 05:34 11:30 11:30 WBC 16.4 H RBC 3.50 L Hgb Hct MCV MCH MCHC RDW Plt Count 136 L D Lymph % (Auto) Garza % (Auto) Lymph # Garza # Seg Neutrophils % Seg Neuts % (Manual) 97.0 H Lymphocytes % (Manual) 2.0 L Seg Neutrophils # Seg Neutrophils # Man 15.9 H Lymphocytes # (Manual) 0.3 L POC ABG pH POC ABG pCO2 POC ABG pO2 Sodium Potassium 3.1 L Chloride 110.4 H Carbon Dioxide 17 L BUN 41 H Creatinine Glucose 129 H POC Glucose 116 H Calcium 7.7 L Phosphorus Magnesium 1.60 L Iron TIBC Ferritin Alkaline Phosphatase NT-Pro-B Natriuret Pep Total Protein 4.2 L Albumin 1.2 L Lipase Free T4 11/03/18 11/03/18 11/03/18 12:01 17:35 21:37 WBC RBC Hgb Hct MCV MCH MCHC RDW Plt Count Lymph % (Auto) Garza % (Auto) Lymph # Garza # Seg Neutrophils % Seg Neuts % (Manual) Lymphocytes % (Manual) Seg Neutrophils # Seg Neutrophils # Man Lymphocytes # (Manual) POC ABG pH POC ABG pCO2 POC ABG pO2 Sodium Potassium Chloride Carbon Dioxide BUN Creatinine Glucose POC Glucose 132 H 132 H 126 H Calcium Phosphorus Magnesium Iron TIBC Ferritin Alkaline Phosphatase NT-Pro-B Natriuret Pep Total Protein Albumin Lipase Free T4 11/03/18 11/04/18 11/04/18 23:30 05:14 05:15 WBC RBC Hgb Hct MCV MCH MCHC RDW Plt Count Lymph % (Auto) Garza % (Auto) Lymph # Garza # Seg Neutrophils % Seg Neuts % (Manual) Lymphocytes % (Manual) Seg Neutrophils # Seg Neutrophils # Man Lymphocytes # (Manual) POC ABG pH POC ABG pCO2 30.9 L POC ABG pO2 192 H Sodium Potassium Chloride Carbon Dioxide BUN Creatinine Glucose POC Glucose 115 H 123 H Calcium Phosphorus Magnesium Iron TIBC Ferritin Alkaline Phosphatase NT-Pro-B Natriuret Pep Total Protein Albumin Lipase Free T4 11/04/18 11/04/18 11/04/18 09:39 09:39 11:43 WBC 15.2 H RBC 3.18 L Hgb Hct 29.9 L MCV MCH MCHC RDW Plt Count Lymph % (Auto) Garza % (Auto) Lymph # Garza # Seg Neutrophils % Seg Neuts % (Manual) 98.0 H Lymphocytes % (Manual) 1.0 L Seg Neutrophils # Seg Neutrophils # Man 14.9 H Lymphocytes # (Manual) 0.2 L POC ABG pH POC ABG pCO2 POC ABG pO2 Sodium 135 L D Potassium Chloride 109.5 H Carbon Dioxide 16 L BUN 46 H Creatinine Glucose 136 H POC Glucose 138 H Calcium 8.0 L Phosphorus Magnesium Iron TIBC Ferritin Alkaline Phosphatase NT-Pro-B Natriuret Pep Total Protein Albumin Lipase Free T4 11/04/18 11/04/18 11/05/18 17:31 23:42 05:23 WBC RBC Hgb Hct MCV MCH MCHC RDW Plt Count Lymph % (Auto) Garza % (Auto) Lymph # Garza # Seg Neutrophils % Seg Neuts % (Manual) Lymphocytes % (Manual) Seg Neutrophils # Seg Neutrophils # Man Lymphocytes # (Manual) POC ABG pH POC ABG pCO2 POC ABG pO2 Sodium Potassium Chloride Carbon Dioxide BUN Creatinine Glucose POC Glucose 139 H 138 H 148 H Calcium Phosphorus Magnesium Iron TIBC Ferritin Alkaline Phosphatase NT-Pro-B Natriuret Pep Total Protein Albumin Lipase Free T4 11/05/18 11/05/18 11/05/18 05:30 05:30 11:46 WBC 14.2 H RBC 3.12 L Hgb 10.0 L Hct 29.1 L MCV MCH MCHC RDW Plt Count Lymph % (Auto) Garza % (Auto) Lymph # Garza # Seg Neutrophils % Seg Neuts % (Manual) Lymphocytes % (Manual) Seg Neutrophils # Seg Neutrophils # Man Lymphocytes # (Manual) POC ABG pH POC ABG pCO2 POC ABG pO2 Sodium Potassium Chloride Carbon Dioxide 21 L BUN 42 H Creatinine Glucose 125 H POC Glucose 157 H Calcium 7.9 L Phosphorus Magnesium Iron TIBC Ferritin Alkaline Phosphatase NT-Pro-B Natriuret Pep Total Protein Albumin Lipase Free T4 11/05/18 11/05/18 11/05/18 17:09 20:03 23:43 WBC RBC Hgb Hct MCV MCH MCHC RDW Plt Count Lymph % (Auto) Garza % (Auto) Lymph # Garza # Seg Neutrophils % Seg Neuts % (Manual) Lymphocytes % (Manual) Seg Neutrophils # Seg Neutrophils # Man Lymphocytes # (Manual) POC ABG pH POC ABG pCO2 POC ABG pO2 76 L Sodium Potassium Chloride Carbon Dioxide BUN Creatinine Glucose POC Glucose 142 H 204 H Calcium Phosphorus Magnesium Iron TIBC Ferritin Alkaline Phosphatase NT-Pro-B Natriuret Pep Total Protein Albumin Lipase Free T4 11/06/18 11/06/18 11/06/18 04:21 12:14 17:17 WBC RBC Hgb Hct MCV MCH MCHC RDW Plt Count Lymph % (Auto) Garza % (Auto) Lymph # Garza # Seg Neutrophils % Seg Neuts % (Manual) Lymphocytes % (Manual) Seg Neutrophils # Seg Neutrophils # Man Lymphocytes # (Manual) POC ABG pH POC ABG pCO2 POC ABG pO2 Sodium 133 L Potassium Chloride Carbon Dioxide 18 L BUN 47 H Creatinine Glucose 187 H POC Glucose 232 H 199 H Calcium 7.8 L Phosphorus 5.30 H D Magnesium 2.50 H Iron TIBC Ferritin Alkaline Phosphatase NT-Pro-B Natriuret Pep Total Protein Albumin Lipase Free T4 11/06/18 11/06/18 11/07/18 19:46 23:30 00:00 WBC RBC Hgb Hct MCV MCH MCHC RDW Plt Count Lymph % (Auto) Garza % (Auto) Lymph # Garza # Seg Neutrophils % Seg Neuts % (Manual) Lymphocytes % (Manual) Seg Neutrophils # Seg Neutrophils # Man Lymphocytes # (Manual) POC ABG pH 7.317 L POC ABG pCO2 50.3 H POC ABG pO2 58 L 57 L Sodium Potassium Chloride Carbon Dioxide BUN Creatinine Glucose POC Glucose 224 H Calcium Phosphorus Magnesium Iron TIBC Ferritin Alkaline Phosphatase NT-Pro-B Natriuret Pep Total Protein Albumin Lipase Free T4 11/07/18 11/07/18 11/07/18 04:55 04:55 04:55 WBC 25.2 H RBC 3.64 L Hgb Hct MCV MCH MCHC RDW Plt Count Lymph % (Auto) Garza % (Auto) Lymph # Garza # Seg Neutrophils % Seg Neuts % (Manual) Lymphocytes % (Manual) Seg Neutrophils # Seg Neutrophils # Man Lymphocytes # (Manual) POC ABG pH POC ABG pCO2 POC ABG pO2 Sodium Potassium Chloride Carbon Dioxide BUN 54 H Creatinine Glucose 270 H POC Glucose Calcium 7.9 L Phosphorus 5.00 H Magnesium Iron TIBC Ferritin Alkaline Phosphatase NT-Pro-B Natriuret Pep 4507 H Total Protein Albumin Lipase Free T4 11/07/18 11/07/18 11/07/18 05:46 08:08 11:52 WBC RBC Hgb Hct MCV MCH MCHC RDW Plt Count Lymph % (Auto) Garza % (Auto) Lymph # Garza # Seg Neutrophils % Seg Neuts % (Manual) Lymphocytes % (Manual) Seg Neutrophils # Seg Neutrophils # Man Lymphocytes # (Manual) POC ABG pH POC ABG pCO2 47.6 H POC ABG pO2 106 H Sodium Potassium Chloride Carbon Dioxide BUN Creatinine Glucose POC Glucose 266 H 323 H Calcium Phosphorus Magnesium Iron TIBC Ferritin Alkaline Phosphatase NT-Pro-B Natriuret Pep Total Protein Albumin Lipase Free T4 11/07/18 11/07/18 11/07/18 12:29 17:57 23:48 WBC RBC Hgb Hct MCV MCH MCHC RDW Plt Count Lymph % (Auto) Garza % (Auto) Lymph # Garza # Seg Neutrophils % Seg Neuts % (Manual) Lymphocytes % (Manual) Seg Neutrophils # Seg Neutrophils # Man Lymphocytes # (Manual) POC ABG pH POC ABG pCO2 POC ABG pO2 Sodium Potassium Chloride Carbon Dioxide BUN Creatinine Glucose POC Glucose 325 H 286 H 231 H Calcium Phosphorus Magnesium Iron TIBC Ferritin Alkaline Phosphatase NT-Pro-B Natriuret Pep Total Protein Albumin Lipase Free T4 11/08/18 11/08/18 11/08/18 03:58 05:05 05:05 WBC 18.4 H RBC 3.20 L Hgb 10.0 L Hct 29.7 L MCV MCH MCHC RDW Plt Count Lymph % (Auto) Garza % (Auto) Lymph # Garza # Seg Neutrophils % Seg Neuts % (Manual) Lymphocytes % (Manual) Seg Neutrophils # Seg Neutrophils # Man Lymphocytes # (Manual) POC ABG pH 7.524 H POC ABG pCO2 34.3 L POC ABG pO2 Sodium Potassium Chloride Carbon Dioxide BUN 61 H Creatinine Glucose 253 H POC Glucose Calcium 7.6 L Phosphorus Magnesium Iron TIBC Ferritin Alkaline Phosphatase NT-Pro-B Natriuret Pep Total Protein Albumin Lipase Free T4 11/08/18 11/08/18 11/08/18 05:28 11:28 18:21 WBC RBC Hgb Hct MCV MCH MCHC RDW Plt Count Lymph % (Auto) Garza % (Auto) Lymph # Garza # Seg Neutrophils % Seg Neuts % (Manual) Lymphocytes % (Manual) Seg Neutrophils # Seg Neutrophils # Man Lymphocytes # (Manual) POC ABG pH POC ABG pCO2 POC ABG pO2 Sodium Potassium Chloride Carbon Dioxide BUN Creatinine Glucose POC Glucose 295 H 253 H 225 H Calcium Phosphorus Magnesium Iron TIBC Ferritin Alkaline Phosphatase NT-Pro-B Natriuret Pep Total Protein Albumin Lipase Free T4 11/09/18 11/09/18 11/09/18 00:57 04:06 06:06 WBC RBC Hgb Hct MCV MCH MCHC RDW Plt Count Lymph % (Auto) Garza % (Auto) Lymph # Garza # Seg Neutrophils % Seg Neuts % (Manual) Lymphocytes % (Manual) Seg Neutrophils # Seg Neutrophils # Man Lymphocytes # (Manual) POC ABG pH 7.509 H POC ABG pCO2 POC ABG pO2 Sodium Potassium Chloride Carbon Dioxide BUN Creatinine Glucose POC Glucose 218 H 199 H Calcium Phosphorus Magnesium Iron TIBC Ferritin Alkaline Phosphatase NT-Pro-B Natriuret Pep Total Protein Albumin Lipase Free T4 11/09/18 11/09/18 11/09/18 06:51 06:51 12:07 WBC 13.5 H RBC 2.97 L Hgb 9.3 L Hct 27.6 L MCV MCH MCHC RDW Plt Count Lymph % (Auto) Garza % (Auto) Lymph # Garza # Seg Neutrophils % Seg Neuts % (Manual) Lymphocytes % (Manual) Seg Neutrophils # Seg Neutrophils # Man Lymphocytes # (Manual) POC ABG pH POC ABG pCO2 POC ABG pO2 Sodium Potassium Chloride 96.5 L Carbon Dioxide 32 H BUN 58 H Creatinine Glucose 191 H POC Glucose 212 H Calcium 7.5 L Phosphorus Magnesium Iron TIBC Ferritin Alkaline Phosphatase NT-Pro-B Natriuret Pep Total Protein Albumin Lipase Free T4 11/09/18 11/10/18 11/10/18 18:29 00:09 04:21 WBC RBC Hgb Hct MCV MCH MCHC RDW Plt Count Lymph % (Auto) Garza % (Auto) Lymph # Garza # Seg Neutrophils % Seg Neuts % (Manual) Lymphocytes % (Manual) Seg Neutrophils # Seg Neutrophils # Man Lymphocytes # (Manual) POC ABG pH 7.467 H POC ABG pCO2 49.9 H POC ABG pO2 76 L Sodium Potassium Chloride Carbon Dioxide BUN Creatinine Glucose POC Glucose 192 H 214 H Calcium Phosphorus Magnesium Iron TIBC Ferritin Alkaline Phosphatase NT-Pro-B Natriuret Pep Total Protein Albumin Lipase Free T4 11/10/18 11/10/18 11/10/18 04:39 04:39 06:05 WBC 14.3 H RBC 3.09 L Hgb 9.7 L Hct 28.9 L MCV MCH MCHC RDW Plt Count Lymph % (Auto) Garza % (Auto) Lymph # Garza # Seg Neutrophils % Seg Neuts % (Manual) Lymphocytes % (Manual) Seg Neutrophils # Seg Neutrophils # Man Lymphocytes # (Manual) POC ABG pH POC ABG pCO2 POC ABG pO2 Sodium Potassium Chloride 97.5 L Carbon Dioxide 31 H BUN 53 H Creatinine Glucose 196 H POC Glucose 202 H Calcium 7.7 L Phosphorus Magnesium Iron TIBC Ferritin Alkaline Phosphatase NT-Pro-B Natriuret Pep Total Protein Albumin Lipase Free T4 11/10/18 11/10/18 11/11/18 12:32 17:16 00:06 WBC RBC Hgb Hct MCV MCH MCHC RDW Plt Count Lymph % (Auto) Garza % (Auto) Lymph # Garza # Seg Neutrophils % Seg Neuts % (Manual) Lymphocytes % (Manual) Seg Neutrophils # Seg Neutrophils # Man Lymphocytes # (Manual) POC ABG pH POC ABG pCO2 POC ABG pO2 Sodium Potassium Chloride Carbon Dioxide BUN Creatinine Glucose POC Glucose 197 H 200 H 177 H Calcium Phosphorus Magnesium Iron TIBC Ferritin Alkaline Phosphatase NT-Pro-B Natriuret Pep Total Protein Albumin Lipase Free T4 11/11/18 11/11/18 11/11/18 04:43 05:24 05:50 WBC 14.1 H RBC 2.92 L Hgb 9.1 L Hct 27.0 L MCV MCH MCHC RDW Plt Count Lymph % (Auto) Garza % (Auto) Lymph # Garza # Seg Neutrophils % Seg Neuts % (Manual) Lymphocytes % (Manual) Seg Neutrophils # Seg Neutrophils # Man Lymphocytes # (Manual) POC ABG pH POC ABG pCO2 50.1 H POC ABG pO2 Sodium Potassium Chloride Carbon Dioxide BUN Creatinine Glucose POC Glucose 199 H Calcium Phosphorus Magnesium Iron TIBC Ferritin Alkaline Phosphatase NT-Pro-B Natriuret Pep Total Protein Albumin Lipase Free T4 11/11/18 11/11/18 11/11/18 05:50 12:00 17:57 WBC RBC Hgb Hct MCV MCH MCHC RDW Plt Count Lymph % (Auto) Garza % (Auto) Lymph # Garza # Seg Neutrophils % Seg Neuts % (Manual) Lymphocytes % (Manual) Seg Neutrophils # Seg Neutrophils # Man Lymphocytes # (Manual) POC ABG pH POC ABG pCO2 POC ABG pO2 Sodium Potassium 3.5 L Chloride Carbon Dioxide 34 H BUN 47 H Creatinine 0.5 L Glucose 169 H POC Glucose 168 H 194 H Calcium 8.2 L Phosphorus Magnesium Iron TIBC Ferritin Alkaline Phosphatase 142 H NT-Pro-B Natriuret Pep Total Protein 4.4 L Albumin 2.1 L Lipase Free T4 11/11/18 11/12/18 11/12/18 23:26 05:32 09:26 WBC RBC Hgb Hct MCV MCH MCHC RDW Plt Count Lymph % (Auto) Garza % (Auto) Lymph # Garza # Seg Neutrophils % Seg Neuts % (Manual) Lymphocytes % (Manual) Seg Neutrophils # Seg Neutrophils # Man Lymphocytes # (Manual) POC ABG pH POC ABG pCO2 POC ABG pO2 Sodium Potassium Chloride Carbon Dioxide BUN Creatinine Glucose POC Glucose 181 H 186 H 158 H Calcium Phosphorus Magnesium Iron TIBC Ferritin Alkaline Phosphatase NT-Pro-B Natriuret Pep Total Protein Albumin Lipase Free T4 11/12/18 11/12/18 11/12/18 11:42 17:39 23:25 WBC RBC Hgb Hct MCV MCH MCHC RDW Plt Count Lymph % (Auto) Garza % (Auto) Lymph # Garza # Seg Neutrophils % Seg Neuts % (Manual) Lymphocytes % (Manual) Seg Neutrophils # Seg Neutrophils # Man Lymphocytes # (Manual) POC ABG pH POC ABG pCO2 POC ABG pO2 Sodium Potassium Chloride Carbon Dioxide BUN Creatinine Glucose POC Glucose 141 H 183 H 147 H Calcium Phosphorus Magnesium Iron TIBC Ferritin Alkaline Phosphatase NT-Pro-B Natriuret Pep Total Protein Albumin Lipase Free T4 11/13/18 11/13/18 11/13/18 12:16 18:10 21:21 WBC RBC Hgb Hct MCV MCH MCHC RDW Plt Count Lymph % (Auto) Garza % (Auto) Lymph # Garza # Seg Neutrophils % Seg Neuts % (Manual) Lymphocytes % (Manual) Seg Neutrophils # Seg Neutrophils # Man Lymphocytes # (Manual) POC ABG pH POC ABG pCO2 POC ABG pO2 Sodium Potassium Chloride Carbon Dioxide BUN Creatinine Glucose POC Glucose 114 H 127 H 185 H Calcium Phosphorus Magnesium Iron TIBC Ferritin Alkaline Phosphatase NT-Pro-B Natriuret Pep Total Protein Albumin Lipase Free T4 11/13/18 11/14/18 11/14/18 23:11 03:28 03:28 WBC RBC Hgb Hct MCV MCH MCHC RDW Plt Count Lymph % (Auto) Garza % (Auto) Lymph # Garza # Seg Neutrophils % Seg Neuts % (Manual) Lymphocytes % (Manual) Seg Neutrophils # Seg Neutrophils # Man Lymphocytes # (Manual) POC ABG pH POC ABG pCO2 POC ABG pO2 Sodium Potassium Chloride Carbon Dioxide BUN Creatinine Glucose POC Glucose 184 H Calcium Phosphorus Magnesium Iron 31 L TIBC 173 L Ferritin 510.3 H Alkaline Phosphatase NT-Pro-B Natriuret Pep Total Protein Albumin Lipase Free T4 11/14/18 11/14/18 11/14/18 05:12 07:59 10:05 WBC 19.8 H RBC 2.67 L Hgb 8.4 L Hct 25.2 L MCV MCH MCHC RDW Plt Count Lymph % (Auto) Garza % (Auto) Lymph # Garza # Seg Neutrophils % Seg Neuts % (Manual) 96.0 H Lymphocytes % (Manual) 0 L Seg Neutrophils # Seg Neutrophils # Man 19.0 H Lymphocytes # (Manual) 0.0 L POC ABG pH 7.470 H POC ABG pCO2 POC ABG pO2 Sodium Potassium Chloride Carbon Dioxide BUN Creatinine Glucose POC Glucose 178 H Calcium Phosphorus Magnesium Iron TIBC Ferritin Alkaline Phosphatase NT-Pro-B Natriuret Pep Total Protein Albumin Lipase Free T4 11/14/18 11/14/18 11/14/18 11:40 18:03 23:15 WBC RBC Hgb Hct MCV MCH MCHC RDW Plt Count Lymph % (Auto) Garza % (Auto) Lymph # Garza # Seg Neutrophils % Seg Neuts % (Manual) Lymphocytes % (Manual) Seg Neutrophils # Seg Neutrophils # Man Lymphocytes # (Manual) POC ABG pH POC ABG pCO2 POC ABG pO2 Sodium Potassium Chloride Carbon Dioxide BUN Creatinine Glucose POC Glucose 168 H 221 H 223 H Calcium Phosphorus Magnesium Iron TIBC Ferritin Alkaline Phosphatase NT-Pro-B Natriuret Pep Total Protein Albumin Lipase Free T4 11/15/18 11/15/18 11/15/18 05:29 11:33 12:13 WBC RBC Hgb Hct MCV MCH MCHC RDW Plt Count Lymph % (Auto) Garza % (Auto) Lymph # Garza # Seg Neutrophils % Seg Neuts % (Manual) Lymphocytes % (Manual) Seg Neutrophils # Seg Neutrophils # Man Lymphocytes # (Manual) POC ABG pH POC ABG pCO2 46.1 H POC ABG pO2 107 H Sodium Potassium Chloride Carbon Dioxide BUN Creatinine Glucose POC Glucose 210 H 199 H Calcium Phosphorus Magnesium Iron TIBC Ferritin Alkaline Phosphatase NT-Pro-B Natriuret Pep Total Protein Albumin Lipase Free T4 11/15/18 11/15/18 11/15/18 14:32 17:45 23:29 WBC RBC Hgb Hct MCV MCH MCHC RDW Plt Count Lymph % (Auto) Garza % (Auto) Lymph # Garza # Seg Neutrophils % Seg Neuts % (Manual) Lymphocytes % (Manual) Seg Neutrophils # Seg Neutrophils # Man Lymphocytes # (Manual) POC ABG pH POC ABG pCO2 POC ABG pO2 Sodium 149 H Potassium 3.1 L Chloride 109.2 H Carbon Dioxide BUN 36 H Creatinine 0.5 L Glucose 164 H POC Glucose 154 H 163 H Calcium 7.5 L Phosphorus Magnesium Iron TIBC Ferritin Alkaline Phosphatase NT-Pro-B Natriuret Pep Total Protein Albumin Lipase Free T4 11/16/18 11/16/18 11/16/18 05:54 12:05 12:57 WBC RBC Hgb Hct MCV MCH MCHC RDW Plt Count Lymph % (Auto) Garza % (Auto) Lymph # Garza # Seg Neutrophils % Seg Neuts % (Manual) Lymphocytes % (Manual) Seg Neutrophils # Seg Neutrophils # Man Lymphocytes # (Manual) POC ABG pH POC ABG pCO2 POC ABG pO2 Sodium 150 H Potassium 3.0 L Chloride 109.0 H Carbon Dioxide BUN 41 H Creatinine 0.5 L Glucose 158 H POC Glucose 168 H 176 H Calcium 7.6 L Phosphorus Magnesium Iron TIBC Ferritin Alkaline Phosphatase NT-Pro-B Natriuret Pep Total Protein Albumin Lipase Free T4 11/16/18 11/16/18 11/17/18 16:49 23:22 04:25 WBC 16.2 H RBC 2.72 L Hgb 8.7 L Hct 25.9 L MCV MCH MCHC RDW 15.6 H Plt Count Lymph % (Auto) Garza % (Auto) Lymph # Garza # Seg Neutrophils % Seg Neuts % (Manual) 97.0 H Lymphocytes % (Manual) 1.0 L Seg Neutrophils # Seg Neutrophils # Man 15.7 H Lymphocytes # (Manual) 0.2 L POC ABG pH POC ABG pCO2 POC ABG pO2 Sodium Potassium Chloride Carbon Dioxide BUN Creatinine Glucose POC Glucose 163 H 230 H Calcium Phosphorus Magnesium Iron TIBC Ferritin Alkaline Phosphatase NT-Pro-B Natriuret Pep Total Protein Albumin Lipase Free T4 11/17/18 11/17/18 11/17/18 04:25 05:56 12:39 WBC RBC Hgb Hct MCV MCH MCHC RDW Plt Count Lymph % (Auto) Garza % (Auto) Lymph # Garza # Seg Neutrophils % Seg Neuts % (Manual) Lymphocytes % (Manual) Seg Neutrophils # Seg Neutrophils # Man Lymphocytes # (Manual) POC ABG pH POC ABG pCO2 POC ABG pO2 Sodium 152 H Potassium 3.4 L Chloride 109.9 H Carbon Dioxide 32 H BUN 40 H Creatinine 0.5 L Glucose 155 H POC Glucose 173 H 193 H Calcium 7.9 L Phosphorus Magnesium Iron TIBC Ferritin Alkaline Phosphatase NT-Pro-B Natriuret Pep Total Protein Albumin Lipase Free T4 11/17/18 11/17/18 11/18/18 17:08 23:06 04:26 WBC 18.3 H RBC 2.52 L Hgb 8.0 L Hct 24.5 L MCV MCH MCHC RDW 16.0 H Plt Count Lymph % (Auto) Garza % (Auto) Lymph # Garza # Seg Neutrophils % Seg Neuts % (Manual) 96.0 H Lymphocytes % (Manual) 0 L Seg Neutrophils # Seg Neutrophils # Man 17.6 H Lymphocytes # (Manual) 0.0 L POC ABG pH POC ABG pCO2 POC ABG pO2 Sodium Potassium Chloride Carbon Dioxide BUN Creatinine Glucose POC Glucose 203 H 167 H Calcium Phosphorus Magnesium Iron TIBC Ferritin Alkaline Phosphatase NT-Pro-B Natriuret Pep Total Protein Albumin Lipase Free T4 11/18/18 11/18/18 11/18/18 04:26 05:29 13:52 WBC RBC Hgb Hct MCV MCH MCHC RDW Plt Count Lymph % (Auto) Garza % (Auto) Lymph # Garza # Seg Neutrophils % Seg Neuts % (Manual) Lymphocytes % (Manual) Seg Neutrophils # Seg Neutrophils # Man Lymphocytes # (Manual) POC ABG pH POC ABG pCO2 POC ABG pO2 Sodium 149 H Potassium Chloride 110.5 H Carbon Dioxide BUN 41 H Creatinine 0.4 L Glucose 127 H POC Glucose 128 H 109 H Calcium 7.9 L Phosphorus Magnesium Iron TIBC Ferritin Alkaline Phosphatase NT-Pro-B Natriuret Pep Total Protein Albumin Lipase Free T4 11/18/18 11/18/18 11/19/18 18:05 23:33 05:34 WBC RBC Hgb Hct MCV MCH MCHC RDW Plt Count Lymph % (Auto) Garza % (Auto) Lymph # Garza # Seg Neutrophils % Seg Neuts % (Manual) Lymphocytes % (Manual) Seg Neutrophils # Seg Neutrophils # Man Lymphocytes # (Manual) POC ABG pH POC ABG pCO2 POC ABG pO2 Sodium Potassium Chloride Carbon Dioxide BUN Creatinine Glucose POC Glucose 174 H 178 H 116 H Calcium Phosphorus Magnesium Iron TIBC Ferritin Alkaline Phosphatase NT-Pro-B Natriuret Pep Total Protein Albumin Lipase Free T4 11/19/18 11/19/18 11/19/18 08:35 08:35 11:31 WBC 22.3 H RBC 2.80 L Hgb 8.9 L Hct 26.7 L MCV MCH MCHC RDW 16.5 H Plt Count Lymph % (Auto) Garza % (Auto) Lymph # Garza # Seg Neutrophils % Seg Neuts % (Manual) Lymphocytes % (Manual) Seg Neutrophils # Seg Neutrophils # Man Lymphocytes # (Manual) POC ABG pH POC ABG pCO2 POC ABG pO2 Sodium 147 H Potassium Chloride 107.2 H Carbon Dioxide BUN 35 H Creatinine 0.3 L Glucose 117 H POC Glucose 161 H Calcium 7.9 L Phosphorus Magnesium Iron TIBC Ferritin Alkaline Phosphatase NT-Pro-B Natriuret Pep Total Protein Albumin Lipase Free T4 11/19/18 11/20/18 11/20/18 23:43 04:19 04:19 WBC 13.7 H RBC 2.50 L Hgb 8.0 L Hct 24.2 L MCV MCH MCHC RDW 16.9 H Plt Count Lymph % (Auto) Garza % (Auto) Lymph # Garza # Seg Neutrophils % Seg Neuts % (Manual) Lymphocytes % (Manual) Seg Neutrophils # Seg Neutrophils # Man Lymphocytes # (Manual) POC ABG pH POC ABG pCO2 POC ABG pO2 Sodium Potassium Chloride Carbon Dioxide BUN 35 H Creatinine 0.3 L Glucose 178 H POC Glucose 243 H Calcium 7.9 L Phosphorus Magnesium Iron TIBC Ferritin Alkaline Phosphatase NT-Pro-B Natriuret Pep Total Protein Albumin Lipase Free T4 11/20/18 11/21/18 11/21/18 05:38 05:37 05:49 WBC 16.1 H RBC 2.76 L Hgb 8.9 L Hct 26.8 L MCV MCH MCHC RDW 16.8 H Plt Count Lymph % (Auto) Garza % (Auto) Lymph # Garza # Seg Neutrophils % Seg Neuts % (Manual) Lymphocytes % (Manual) Seg Neutrophils # Seg Neutrophils # Man Lymphocytes # (Manual) POC ABG pH POC ABG pCO2 POC ABG pO2 Sodium Potassium Chloride Carbon Dioxide BUN Creatinine Glucose POC Glucose 202 H 162 H Calcium Phosphorus Magnesium Iron TIBC Ferritin Alkaline Phosphatase NT-Pro-B Natriuret Pep Total Protein Albumin Lipase Free T4 11/21/18 11/21/18 11/21/18 05:49 12:12 22:26 WBC RBC Hgb Hct MCV MCH MCHC RDW Plt Count Lymph % (Auto) Garza % (Auto) Lymph # Garza # Seg Neutrophils % Seg Neuts % (Manual) Lymphocytes % (Manual) Seg Neutrophils # Seg Neutrophils # Man Lymphocytes # (Manual) POC ABG pH POC ABG pCO2 POC ABG pO2 Sodium 148 H Potassium Chloride 108.1 H Carbon Dioxide BUN 33 H Creatinine 0.3 L Glucose 133 H POC Glucose 112 H 184 H Calcium 8.1 L Phosphorus Magnesium Iron TIBC Ferritin Alkaline Phosphatase NT-Pro-B Natriuret Pep Total Protein Albumin Lipase Free T4 11/21/18 11/22/18 11/22/18 23:44 05:35 06:10 WBC 16.7 H RBC 2.69 L Hgb 8.6 L Hct 26.0 L MCV MCH MCHC RDW 16.3 H Plt Count Lymph % (Auto) Garza % (Auto) Lymph # Garza # Seg Neutrophils % Seg Neuts % (Manual) Lymphocytes % (Manual) Seg Neutrophils # Seg Neutrophils # Man Lymphocytes # (Manual) POC ABG pH POC ABG pCO2 POC ABG pO2 Sodium Potassium Chloride Carbon Dioxide BUN Creatinine Glucose POC Glucose 177 H 183 H Calcium Phosphorus Magnesium Iron TIBC Ferritin Alkaline Phosphatase NT-Pro-B Natriuret Pep Total Protein Albumin Lipase Free T4 11/22/18 11/22/18 06:10 13:38 WBC RBC Hgb Hct MCV MCH MCHC RDW Plt Count Lymph % (Auto) Garza % (Auto) Lymph # Garza # Seg Neutrophils % Seg Neuts % (Manual) Lymphocytes % (Manual) Seg Neutrophils # Seg Neutrophils # Man Lymphocytes # (Manual) POC ABG pH POC ABG pCO2 POC ABG pO2 Sodium Potassium Chloride Carbon Dioxide BUN 29 H Creatinine 0.3 L Glucose 147 H POC Glucose 124 H Calcium 7.4 L Phosphorus Magnesium Iron TIBC Ferritin Alkaline Phosphatase NT-Pro-B Natriuret Pep Total Protein Albumin Lipase Free T4 Allied health notes reviewed: nursing
--- NOTE | 2018-11-22 15:48 | Progress Note ---
Assessment and Plan Cultures: Blood cultures 10/22/2018 no growth Tracheal asp cultures 10/28/2018: E.coli and Stenotrophomonas. 10/30/2018 blood culture: Ayla glabrata 11/03/2018 fungal blood culture: no growth thus far 11/18/2018 Sputum e.coli Assessment: 73 y/o female with history of COPD, hypertension, lupus, fibromyalgia, opioid dependence admitted on 10/22/2018 due to 3-day history of intractable nausea, vomiting, diarrhea: 1) SIRS v/s sepsis: fever resolved. Noted leukocytosis 18-->22-->13-->16K on iv steroids. ? pneumonia however repeat CXR no consolidation. ? C diff colitis. Etiology initially most likely aspiration pneumonia +/- intra-abdominal source from contained gastric perforation, then with Candidemia. 2) Candidemia due to Ayla glabrata: in the setting of TPN and PICC line. PICC removed. Has temporary central line. TTE not optimal quality, but repeat fungal blood cultures are negative, so no need for LAUREN. S/p micafungin/fluconazole 14 days course. 3) Acute respiratory failure: pneumonia and fluid overload. Extubated 11/05/2018 and reintubated 11/07/2018. s/p trach, doing well. 4) Presumed aspiration pneumonia v/s HAP: Tracheal asp cultures 10/28/2018 with E.coli and Stenotrophomonas. Stenotrophomonas is a known colonizer in patients with structural lung disease or tracheostomy tubes/ET tubes, not generally considered very virulent. Given her prolonged and complicated hospital stay, completed a 10 day course of abx. Repeat sputum cx + GNR but repeat CXR negative, suggestive of colonization. 5) Contained gastric perforation: Gen Surgery following. Planned for conservative management. Follow up CT showed no contrast leak. Now on tube feeds. 6) ADWOA: improved. 7) Diarrhea: ? tfeed related. Slowing down. Recommendations: - diarrhea slowing down. WBC stable. Continue off abx. Phong Joy MD [facility] C: [phone] O: [phone] F: [phone] Subjective Date of service: 11/22/18 Principal diagnosis: anemia Interval history: No fever. Off the vent, on trach collar. Diarrhea slowed down. at bedside. Objective - Exam Narrative Exam: Physical Exam: Constitutional: resting, comfortable, no distress Head, Ears, Nose: Normocephalic, atraumatic. External ears, nose normal Eyes: Conjunctivae/corneas clear. No icterus. No ptosis. Neck: trach + Cardiovascular: S1, S2 normal, no murmur heard Respiratory: AE clear b/l, no wheeze or rhonchi GI: Soft, non-tender; bowel sounds +, No peritoneal signs Musculoskeletal: improving edema of extremities. Skin: No rash or abscess Hem/Lymphatic: No palpable cervical or supraclavicular nodes. No lymphangitis Psych: no agitation Neurological: sleeping - Constitutional Vitals: Vital Signs Temp Pulse Resp BP Pulse Ox 98.4 F 79 20 110/45 97 11/22/18 12:00 11/22/18 13:34 11/22/18 10:30 11/22/18 13:34 11/22/18 10:30 Temperature -Last 24 Hours Temperature 98.4 F Temperature 98 F Temperature 99.1 F Temperature 98.6 F Temperature 98.4 F - Labs CBC & Chem 7: 11/22/18 06:10 11/22/18 06:10 Labs: Abnormal lab results 11/21/18 11/21/18 11/22/18 Range/Units 22:26 23:44 05:35 WBC (4.5-11.0) K/mm3 RBC (3.65-5.03) M/mm3 Hgb (10.1-14.3) gm/dl Hct (30.3-42.9) % RDW (13.2-15.2) % BUN (7-17) mg/dL Creatinine (0.7-1.2) mg/dL Glucose (65-100) mg/dL POC Glucose 184 H 177 H 183 H (70-105) Calcium (8.4-10.2) mg/dL 11/22/18 11/22/18 11/22/18 Range/Units 06:10 06:10 13:38 WBC 16.7 H (4.5-11.0) K/mm3 RBC 2.69 L (3.65-5.03) M/mm3 Hgb 8.6 L (10.1-14.3) gm/dl Hct 26.0 L (30.3-42.9) % RDW 16.3 H (13.2-15.2) % BUN 29 H (7-17) mg/dL Creatinine 0.3 L (0.7-1.2) mg/dL Glucose 147 H (65-100) mg/dL POC Glucose 124 H (70-105) Calcium 7.4 L (8.4-10.2) mg/dL
[2018-11-22] MEDS: LOVENOX SUB-Q SCH (23:34)
[2018-11-23] MEDS: HumaLOG SUB-Q SCH ×5 (00:12→23:29)
[2018-11-23] MEDS: DILAUDID IV PRN (03:44)
[2018-11-23 05:51] LABS: Hematocrit 27.6 % (30.3-42.9); Hemoglobin 9.3 gm/dl (10.1-14.3); Mean Corpuscular HGB Conc 34 % (30-34); Mean Corpuscular Volume 96 fl (79-97); Platelet Count 232 K/mm3 (140-440); Red Blood Count 2.86 M/mm3 (3.65-5.03); Red Cell Distribution Width 16.9 % (13.2-15.2)
[2018-11-23 06:09] LABS: BUN/Creatinine Ratio 87; Blood Urea Nitrogen 26 mg/dL (7-17); Calcium 7.4 mg/dL (8.4-10.2); Hemolysis Index 5
[2018-11-23] MEDS: BROVANA NEBU IH SCH ×2 (07:10→20:00)
[2018-11-23] MEDS: PULMICORT IH SCH ×2 (07:10→20:00)
[2018-11-23] MEDS: NEURONTIN PO SCH ×3 (07:45→23:28)
--- NOTE | 2018-11-23 09:10 | Progress Note ---
Assessment and Plan Assessment and plan: Patient is 73-year-old female with history of hypertension, lupus, fibromyalgia, COPD, opioid dependence (follows Dr. Felix Muñiz at pain clinic) who presented to [facility] ED with complaints of intractable nausea, vomiting, diarrhea for 3 days. On initial presentation to the ED she was found to be tachycardiac with heart rate 113 BPM, leukocytosis with WBC 11.5, elevated BUN/Cr 51/2.1. Patient has history of COPD and at baseline does not require home oxygen use. She was admitted to [facility]. GI was consulted, she was evaluated. CT Abdomen revealed partial SBO versus ileus therefore surgeon consulted. Also patient became more short of breath, placed on BIPAP with no improvement then intubated 10/26/18 for acute resp failure and transferred to ICU. Obstruction series completed on 10/27 which showed improved but small bowel and stomach dilatation. Follow-up series on 10/28 showed no significant change since previous study. NG tube was removed due to patient not tolerating/refusing. Patient was placed back on BiPAP but decompensated on the night of 10/28/18 and had to be reintubated. Patient currently on mechanical ventilation. Patient has had further complications now with findings consistent with contained gastric perforation on repeat CT scan 10/30, managed conservatively. She was extubated 11/05, re-intubated 11/07/18. This is 3rd intubation so Tracheostomy was recommended and done 11/13/18. No PEG yet, for at least 2 weeks because of recent gastric perforation. She has anxiety and on medications. Case management working on placement to LTAC. Acute hypoxic respiratory failure. Patient was reintubated on 10/28/18 and currently on mechanical ventilation. Etiology secondary to COPD/pneumonia/sepsis. Extubated 11/05, re-intubated 11/07 Wean mechanical ventilation per pulmonary. Ongoing CPAP trials Gastric perforation. Repeat CT scan on 10/30 revealed pSBO resolved, no evidence for bowel ischemia. Small contained gastric perforation at lesser curve. No gross free air or contrast extravasation. Surgery recommended conservative management Sepsis/candidemia. Etiology initially most likely related to aspiration pneumonia and gastric perforation. Patient now with Ayla glabrata. PICC line removed. Repeat fungal cultures are negative. Completed a 14 day course of antifungals. Removed current central line and inserted midline. Thrombocytopenia. Now resolved. Etiology likely secondary to sepsis. Hematology following. Bilateral upper lobe/aspiration pneumonia. Sputum culture positive for Escherichia coli and stenotrophomonas. Bilateral pleural effusions. Acute exacerbation COPD, improved. Scheduled Duo Nebs and Pulmicort; albuterol when necessary Presumed aspiration pneumonia versus healthcare associated pneumonia. Tracheal aspirate cultures from 10/28 with Escherichia coli and stenotrophomonas. Completed antibiotics. Hypokalemia. Replete potassium as needed. Hypertension. IV hydralazine when necessary Lupus. Supportive care Fibromyalgia. supportive care History of opioid dependence ADWOA due to vasomotor nephropathy, now resolved Full code status Plan is for LTAC placement. She is medically stable for dc to LTAC Discussed with patient and at bedside The high probability of a clinically significant, sudden or life threatening deterioration of the [GI and respiratory] system(s) required my full and direct attention, intervention and personal management. The aggregate critical care time was [31] minutes. This time is in addition to time spent performing reported procedures but includes the following: [x] Data Review and interpretation [x] Patient assessment and monitoring of vital signs [x] Documentation [x] Medication orders and management History Interval history: Still has diarrhea No abd pain currently anxious on and off No fever at bedside Hospitalist Physical - Physical exam Narrative exam: Gen: Not in distress, tracheostomy HEENT: Normocephalic, atraumatic, NG tube Neck: supple, no JVD Heart: S1 and S2 reg, no murmurs, rubs or gallop Lungs: Clear bilateral, decreased breath sounds bilat. no wheeze Abd: soft, non tender, no rebound tenderness, non distended, BS present Ext: No edema, no clubbing, no cyanosis, Neuro: Awake,alert, follows commands, moves all ext - Constitutional Vitals: Temp Pulse Resp BP Pulse Ox 98.7 F 86 15 130/54 100 11/23/18 03:50 11/23/18 07:30 11/23/18 07:30 11/23/18 07:30 11/23/18 07:30 General appearance: Present: other (intubated, opens eyes to commands) Results - Labs CBC & Chem 7: 11/23/18 05:30 11/23/18 05:30 Labs: Laboratory Last Values WBC 20.0 K/mm3 (4.5-11.0) H 11/23/18 05:30 RBC 2.86 M/mm3 (3.65-5.03) L 11/23/18 05:30 Hgb 9.3 gm/dl (10.1-14.3) L 11/23/18 05:30 Hct 27.6 % (30.3-42.9) L 11/23/18 05:30 MCV 96 fl (79-97) 11/23/18 05:30 MCH 33 pg (28-32) H 11/23/18 05:30 MCHC 34 % (30-34) 11/23/18 05:30 RDW 16.9 % (13.2-15.2) H 11/23/18 05:30 Plt Count 232 K/mm3 (140-440) 11/23/18 05:30 Lymph % (Auto) [employer] 11/14/18 07:59 [place] % (Auto) [employer] 11/14/18 07:59 Eos % (Auto) [employer] 11/14/18 07:59 Baso % (Auto) [employer] 11/14/18 07:59 Lymph # [employer] 11/14/18 07:59 [place] # [employer] 11/14/18 07:59 Eos # [employer] 11/14/18 07:59 Baso # [employer] 11/14/18 07:59 Add Manual Diff Complete 11/18/18 04:26 Total Counted 100 11/18/18 04:26 Seg Neutrophils % [employer] 11/17/18 04:25 Seg Neuts % (Manual) 96.0 % (40.0-70.0) H 11/18/18 04:26 1.0 % 11/18/18 04:26 0 % (13.4-35.0) L 11/18/18 04:26 Reactive Lymphs % (Man) 0 % 11/18/18 04:26 3.0 % (0.0-7.3) 11/18/18 04:26 0 % (0.0-4.3) 11/18/18 04:26 0 % (0.0-1.8) 11/18/18 04:26 0 % 11/18/18 04:26 0 % 11/18/18 04:26 0 % 11/18/18 04:26 0 % 11/18/18 04:26 Nucleated RBC % Not Reportable 11/18/18 04:26 Seg Neutrophils # [employer] 11/14/18 07:59 Seg Neutrophils # Man 17.6 K/mm3 (1.8-7.7) H 11/18/18 04:26 Band Neutrophils # 0.2 K/mm3 11/18/18 04:26 0.0 K/mm3 (1.2-5.4) L 11/18/18 04:26 Abs React Lymphs (Man) 0.0 K/mm3 11/18/18 04:26 0.5 K/mm3 (0.0-0.8) 11/18/18 04:26 0.0 K/mm3 (0.0-0.4) 11/18/18 04:26 0.0 K/mm3 (0.0-0.1) 11/18/18 04:26 0.0 K/mm3 11/18/18 04:26 0.0 K/mm3 11/18/18 04:26 0.0 K/mm3 11/18/18 04:26 Blast Cells # 0.0 K/mm3 11/18/18 04:26 WBC Morphology Not Reportable 11/18/18 04:26 WBC Morphology TNR 11/18/18 04:26 Hypersegmented Neuts Not Reportable 11/18/18 04:26 Hyposegmented Neuts Not Reportable 11/18/18 04:26 Hypogranular Neuts Not Reportable 11/18/18 04:26 Not Reportable 11/18/18 04:26 Not Reportable 11/18/18 04:26 Not Reportable 11/18/18 04:26 Not Reportable 11/18/18 04:26 Not Reportable 11/18/18 04:26 Not Reportable 11/18/18 04:26 Consistent w auto 11/18/18 04:26 Not Reportable 11/18/18 04:26 Plt Clumps, EDTA Not Reportable 11/18/18 04:26 Not Reportable 11/18/18 04:26 Not Reportable 11/18/18 04:26 Not Reportable 11/18/18 04:26 Plt Morphology Comment Not Reportable 11/18/18 04:26 RBC Morphology Not Reportable 11/18/18 04:26 Dimorphic RBCs Not Reportable 11/18/18 04:26 Not Reportable 11/18/18 04:26 Not Reportable 11/18/18 04:26 Not Reportable 11/18/18 04:26 Not Reportable 11/18/18 04:26 Not Reportable 11/18/18 04:26 Not Reportable 11/18/18 04:26 Not Reportable 11/18/18 04:26 Not Reportable 11/18/18 04:26 Not Reportable 11/18/18 04:26 Not Reportable 11/18/18 04:26 Not Reportable 11/18/18 04:26 Not Reportable 11/18/18 04:26 Few 11/17/18 04:25 Not Reportable 11/18/18 04:26 Not Reportable 11/18/18 04:26 Not Reportable 11/18/18 04:26 Not Reportable 11/18/18 04:26 Not Reportable 11/18/18 04:26 Not Reportable 11/18/18 04:26 Not Reportable 11/18/18 04:26 Acanthocytes (Spur) Not Reportable 11/18/18 04:26 Rouleaux Not Reportable 11/18/18 04:26 Not Reportable 11/18/18 04:26 Not Reportable 11/18/18 04:26 Not Reportable 11/18/18 04:26 Not Reportable 11/18/18 04:26 Hem Pathologist Commnt No 11/18/18 04:26 Heparin Anti-Xa, Unfract Negative (Negative) 10/30/18 13:58 POC ABG pH 7.446 (7.35-7.45) 11/15/18 11:33 POC ABG pCO2 46.1 (35-45) H 11/15/18 11:33 POC ABG pO2 107 (80-105) H 11/15/18 11:33 POC ABG HCO3 31.8 (22-26 mml/L) 11/15/18 11:33 POC ABG Total CO2 33 (23-27mmol/L) 11/15/18 11:33 POC ABG O2 Sat 98 11/15/18 11:33 POC ABG Base Excess 8 ((-2) - (+3)mmol/L) 11/15/18 11:33 30 % 11/15/18 11:33 Sodium 142 mmol/L (137-145) 11/23/18 05:30 Potassium 4.8 mmol/L (3.6-5.0) 11/23/18 05:30 Chloride 103.1 mmol/L (98-107) 11/23/18 05:30 Carbon Dioxide 30 mmol/L (22-30) 11/23/18 05:30 14 mmol/L 11/23/18 05:30 BUN 26 mg/dL (7-17) H 11/23/18 05:30 0.3 mg/dL (0.7-1.2) L 11/23/18 05:30 Estimated GFR > 60 ml/min 11/23/18 05:30 87 % 11/23/18 05:30 Glucose 163 mg/dL (65-100) H 11/23/18 05:30 POC Glucose 166 (70-105) H 11/22/18 23:39 Lactic Acid 1.60 mmol/L (0.7-2.0) 10/26/18 15:03 Calcium 7.4 mg/dL (8.4-10.2) L 11/23/18 05:30 Phosphorus 2.80 mg/dL (2.5-4.5) 11/11/18 05:50 Magnesium 1.80 mg/dL (1.7-2.3) 11/11/18 05:50 Iron 31 ug/dL (37-170) L 11/14/18 03:28 TIBC 173 mcg/dL (250-450) L 11/14/18 03:28 510.3 ng/mL (13.0-400.0) H 11/14/18 03:28 0.30 mg/dL (0.1-1.2) 11/11/18 05:50 AST 26 units/L (5-40) 11/11/18 05:50 ALT 28 units/L (7-56) 11/11/18 05:50 142 units/L (35-129) H 11/11/18 05:50 NT-Pro-B Natriuret Pep 4507 pg/mL (0-900) H 11/07/18 04:55 4.4 g/dL (6.3-8.2) L 11/11/18 05:50 2.1 g/dL (3.9-5) L 11/11/18 05:50 0.9 % 11/11/18 05:50 Triglycerides 132 mg/dL (2-149) 11/01/18 06:40 10 units/L (13-60) L 10/22/18 15:54 See scanned result 10/30/18 13:58 TSH 3.150 mlU/mL (0.270-4.200) 10/31/18 17:00 Free T4 0.49 ng/dL (0.76-1.46) L 10/31/18 17:00 Dulce (Yellow) 10/22/18 19:10 Clear (Clear) 10/22/18 19:10 5.0 (5.0-7.0) 10/22/18 19:10 Ur Specific [place] 1.018 (1.003-1.030) 10/22/18 19:10 30 mg/dl mg/dL (Negative) 10/22/18 19:10 Neg mg/dL (Negative) 10/22/18 19:10 Tr mg/dL (Negative) 10/22/18 19:10 Neg (Negative) 10/22/18 19:10 Neg (Negative) 10/22/18 19:10 Neg (Negative) 10/22/18 19:10 < 2.0 mg/dL (<2.0) 10/22/18 19:10 Ur Leukocyte Esterase Neg (Negative) 10/22/18 19:10 1.0 /HPF (0.0-6.0) 10/22/18 19:10 3.0 /HPF (0.0-6.0) 10/22/18 19:10 Heparin-induced Plt Ab Negative (Negative) 10/30/18 13:58 UF Heparin High Dose 0 % Release 10/30/18 13:58 KIMO UFH Low Dose 0.1 0 % Release 10/30/18 13:58 KIMO UFH Low Dose 0.5 0 % Release 10/30/18 13:58 Active Medications - Current Medications Current Medications: Generic Name Dose Route Start Last Admin Trade Name Freq PRN Reason Stop Dose Admin Acetaminophen 650 mg 10/22/18 20:10 11/22/18 09:34 Tylenol PO 650 mg Q4H PRN Administration Pain MILD(1-3)/Fever >100.5/PORTER Lipase/Protease/Amylase 1 each 11/05/18 10:13 Pancreaze 10,500 Unit FEEDTUBE PRN PRN For Clogged Feeding Tube Arformoterol Tartrate 15 mcg 11/05/18 20:00 11/23/18 07:10 Brovana Nebu IH 15 mcg Q12HRT RICK Administration Budesonide 0.5 mg 10/23/18 08:00 11/23/18 07:10 Pulmicort IH 0.5 mg Q12HRT RICK Administration Clonazepam 1 mg 11/18/18 11:00 11/22/18 19:39 Klonopin PO 1 mg TID RICK Administration Dextrose 50 ml 10/26/18 23:40 10/27/18 00:20 D50w (25gm) Syringe IV 50 ml PRN PRN Administration Hypoglycemia Enoxaparin Sodium 40 mg 11/14/18 22:00 11/22/18 23:34 Lovenox SUB-Q 40 mg QDAY@2200 RICK Administration Fentanyl 50 mcg 11/18/18 11:00 11/21/18 11:52 Duragesic TD 50 mcg Q3D RICK Administration Gabapentin 600 mg 11/12/18 10:00 11/23/18 07:45 Neurontin PO 600 mg Q8HR RICK Administration Hydromorphone HCl 1 mg 11/12/18 09:55 11/23/18 03:44 Dilaudid IV 1 mg Q4H PRN Administration Pain , Severe (7-10) Hydrophilic Ointment 1 applic 11/07/18 09:14 Vaseline Lip Therapy TP Q2HR PRN Dry Lips Insulin Human Isoph/Insulin Regular 12 unit 11/10/18 22:00 11/22/18 23:36 Humulin 70/30 SUB-Q 12 unit BID RICK Administration Insulin Human Lispro 0 unit 10/29/18 12:00 11/23/18 07:44 Humalog SUB-Q 2 unit Q6HR RICK Administration Protocol Lansoprazole 30 mg 11/17/18 10:00 11/22/18 09:30 Prevacid Solutab FEEDTUBE 30 mg QDAY RICK Administration Lorazepam 0.5 mg 11/18/18 11:00 11/21/18 11:47 Ativan IV 0.5 mg Q6H PRN Administration Anxiety Methylprednisolone Sodium Succinate 20 mg 11/20/18 22:00 11/22/18 23:35 Solu-Medrol IV 20 mg Q12HR RICK Administration Multi-Ingred Cream/Lotion/Oil/Oint 1 applic 11/07/18 09:14 Artificial Tears Ophth Oint OU Q4HR PRN Dry Eye(s) Ondansetron HCl 4 mg 10/24/18 10:05 10/25/18 17:26 Zofran IV 4 mg Q6H PRN Administration Nausea And Vomiting Phenol 1 spray 10/28/18 10:16 Chloraseptic MM PRN PRN Sore Throat Propranolol HCl 20 mg 11/18/18 14:00 11/22/18 19:39 Inderal PO 20 mg TID RICK Administration Quetiapine Fumarate 300 mg 11/12/18 10:00 11/22/18 09:30 Seroquel PO 300 mg DAILY RICK Administration Simple Syrup 15 ml 11/05/18 10:13 Simple Syrup FEEDTUBE PRN PRN Hypoglycemia Simple Syrup 30 ml 11/05/18 10:13 Simple Syrup FEEDTUBE PRN PRN Hypoglycemia Sodium Bicarbonate 325 mg 11/05/18 10:13 Sodium Bicarbonate FEEDTUBE PRN PRN For Clogged Feeding Tube Sodium Chloride 10 ml 10/22/18 22:00 11/22/18 23:36 Sodium Chloride Flush Syringe 10 Ml IV 10 ml BID RICK Administration Nutrition/Malnutrition Assess - Dietary Evaluation Nutrition/Malnutrition Findings: Nutrition Notes Start: 10/23/18 17:03 Freq: Status: Active Protocol: Document 11/21/18 17:45 RM (Rec: 11/21/18 17:51 RM [id number]) Nutrition Notes Initial or Follow up Reassessment Current Diagnosis COPD,Sepsis,Hypertension, Respiratory Failure Other Pertinent Diagnosis Gastric peforation, bilat pneu Current Diet Promote at 70 ml/hr Labs/Tests Na 148 Pertinent Medications Solu-Medrol Height 5 ft 3 in Weight 61.1 kg [place] Body Weight (kg) 52.27 BMI 23.8 Subjective/Other Information Observed Promote infusing at goal rate. Pt still having diarrhea. Per nurse pt tolerating TF. During rounds MD requested increase of water flush to adress hypernatremia. Percent of energy/protein needs met: 100%/100% Burn Absent Trauma Absent #1 Nutrition Diagnosis Inadequate oral intake Diagnosis Progress(for reassessment Continues documentation) Is patient on ventilator? Yes Is Patient Ambulatory and/or Out of Bed No REE-([facility]-confined to bed) 1314.324 Kcal/Kg value to use for calculation 25 Approximate Energy Requirements Using 1528 kcal/Kg Calculation Used for Recommendations Chapin Villaseñor Additional Notes Pro needs 1.2-2g/kg (based on UBW): 60-100g/day Fluid needs 1ml/kcal Nutrition Intervention Nutrition Support: Promote 70 ml/hr. Water flush of 200 ms q 4 hrs or per MD until hyperatremia resolves. Water flush of 50 ml q 4 hrs once hypernatremia resolves. Kcal 1,680 Protein (gm) 105 Carbohydrates (gm) 93 Fat (gm) 45 Fluid (mL) 1,410 Fiber (gm) 0 Goal #1 TF tolerance Goal #2 TF to continue to meet at least 75% energy and pro needs Follow-Up By: 11/26/18 Additional Comments Follow for TF tolerance, Na lab
[2018-11-23] MEDS: ZOFRAN IV PRN ×2 (09:13→22:33)
[2018-11-23] MEDS: INDERAL PO SCH ×2 (09:15→14:43)
[2018-11-23] MEDS: PREVACID SOLUTAB FEEDTUBE SCH (09:18)
[2018-11-23] MEDS: SOLU-Medrol IV SCH ×2 (09:19→21:41)
[2018-11-23] MEDS: SODIUM CHLORIDE FLUSH SYRINGE 10 ML IV SCH ×2 (10:11→23:30)
--- NOTE | 2018-11-23 10:12 | Progress Note ---
Assessment and Plan Cultures: Blood cultures 10/22/2018 no growth Tracheal asp cultures 10/28/2018: E.coli and Stenotrophomonas. 10/30/2018 blood culture: Ayla glabrata 11/03/2018 fungal blood culture: no growth thus far 11/18/2018 Sputum: e.coli Assessment: 73 y/o female with history of COPD, hypertension, lupus, fibromyalgia, opioid dependence admitted on 10/22/2018 due to 3-day history of intractable nausea, vom iting, diarrhea: 1) SIRS v/s sepsis: fever resolved. Noted leukocytosis has been fluctuating, on iv steroids. Etiology initially most likely aspiration pneumonia +/- intra-abdom inal source from contained gastric perforation, then with Candidemia. 2) Candidemia due to Ayla glabrata: in the setting of TPN and PICC line. PICC removed. Has temporary central line. TTE not optimal quality, but repeat fungal blood cultures are negative, so no need for LAUREN. S/p micafungin/fluconazole 14 days course. 3) Acute respiratory failure: pneumonia and fluid overload. Extubated 11/05/2018 and reintubated 11/07/2018. s/p trach, doing well. Did 8 hours of Tpiece yesterday. 4) Presumed aspiration pneumonia v/s HAP: Tracheal asp cultures 10/28/2018 with E.coli and Stenotrophomonas. Stenotrophomonas is a known colonizer in patients with structural lung disease or tracheostomy tubes/ET tubes, not generally considered very virulent. Given her prolonged and complicated hospital stay, co mpleted a 10 day course of abx. Repeat sputum cx + GNR but repeat CXR negative, suggestive of colonization. 5) Contained gastric perforation: Gen Surgery following. Planned for conservative management. Follow up CT showed no contrast leak. Now on tube feeds. 6) ADWOA: improved. 7) Diarrhea: ? tfeed related. Slowing down per discussion with RN Recommendations: - WBC fluctuating, ?related to steroids. Clinically stable, continue off abx. Dr. Grey roundlita tomorrow. MD [facility] C: [phone] O: [phone] F: [phone] Subjective Date of service: 11/23/18 Principal diagnosis: anemia Interval history: No fever. Did 8 hours of Tpiece yesterday. Remains on tube feeds. Diarrhea slowing down per RN. Patient remains on steroids. Objective - Exam Narrative Exam: Physical Exam: Constitutional: resting, comfortable, no distress Head, Ears, Nose: Normocephalic, atraumatic. External ears, nose normal Eyes: Conjunctivae/corneas clear. No icterus. No ptosis. Neck: trach + Cardiovascular: S1, S2 normal, no murmur heard Respiratory: AE clear b/l, no wheeze or rhonchi GI: Soft, non-tender; bowel sounds +, No peritoneal signs Musculoskeletal: trace edema Skin: No rash or abscess Hem/Lymphatic: No palpable cervical or supraclavicular nodes. No lymphangitis Psych: no agitation Neurological: sleeping - Constitutional Vitals: Vital Signs Temp Pulse Resp BP Pulse Ox 98.6 F 86 15 129/48 100 11/23/18 08:00 11/23/18 09:15 11/23/18 07:30 11/23/18 09:15 11/23/18 07:30 Temperature -Last 24 Hours Temperature 98.6 F Temperature 98.7 F Temperature 98.2 F Temperature 98.3 F Temperature 97.9 F Temperature 98.4 F - Labs CBC & Chem 7: 11/23/18 05:30 11/23/18 05:30 Labs: Abnormal lab results 11/22/18 11/22/18 11/22/18 Range/Units 13:38 17:34 23:39 WBC (4.5-11.0) K/mm3 RBC (3.65-5.03) M/mm3 Hgb (10.1-14.3) gm/dl Hct (30.3-42.9) % MCH (28-32) pg RDW (13.2-15.2) % BUN (7-17) mg/dL Creatinine (0.7-1.2) mg/dL Glucose (65-100) mg/dL POC Glucose 124 H 185 H 166 H (70-105) Calcium (8.4-10.2) mg/dL 11/23/18 11/23/18 Range/Units 05:30 05:30 WBC 20.0 H (4.5-11.0) K/mm3 RBC 2.86 L (3.65-5.03) M/mm3 Hgb 9.3 L (10.1-14.3) gm/dl Hct 27.6 L (30.3-42.9) % MCH 33 H (28-32) pg RDW 16.9 H (13.2-15.2) % BUN 26 H (7-17) mg/dL Creatinine 0.3 L (0.7-1.2) mg/dL Glucose 163 H (65-100) mg/dL POC Glucose (70-105) Calcium 7.4 L (8.4-10.2) mg/dL
--- NOTE | 2018-11-23 11:13 | Progress Note ---
Assessment and Plan 73 y/o female with bowel obstruction and now acute respiratory failure with hypercapnea, likely multifactorial from pain medications, anti-psychotic therapy and inability to take deep breaths for ventilation, now with fungemia from picc line placement. 1. patient now off full vent support. Does PSV at night and PRN and T-piece during the day. Last night was the first trial of this. Should continue this pace for now. Can extend the T-piece trials slightly each day 2. Awaiting insurance to approve placement. 3. Currently on Steroids, 20 mg IV daily. 4. Patient does extremely well with PT and OT. Please continue 5. Severe anxiety, now controlled with Klonopin and PRN ativan. CCT 31 minutes. Subjective Date of service: 11/23/18 Principal diagnosis: anemia Interval history: Tolerated PSV all night. Still on PSV now but will get RT to attempt T-piece soon. at bedside. Did T-piece from 10-7:30pm Objective Vital Signs - 12hr 11/22/18 11/22/18 11/22/18 23:30 23:31 23:34 Temperature Pulse Rate 82 82 Pulse Rate [ Anterior Bilateral Throughout] Pulse Rate [ From Monitor] Respiratory 19 22 22 Rate Respiratory Rate [Anterior Bilateral Throughout] Blood Pressure 117/48 117/48 O2 Sat by Pulse 99 100 Oximetry 11/23/18 11/23/18 11/23/18 00:00 00:10 00:14 Temperature 98.2 F Pulse Rate 79 88 Pulse Rate [ Anterior Bilateral Throughout] Pulse Rate [ 79 From Monitor] Respiratory 14 23 18 Rate Respiratory Rate [Anterior Bilateral Throughout] Blood Pressure 127/54 117/48 O2 Sat by Pulse 100 100 Oximetry 11/23/18 11/23/18 11/23/18 00:30 01:00 01:30 Temperature Pulse Rate 78 80 82 Pulse Rate [ Anterior Bilateral Throughout] Pulse Rate [ From Monitor] Respiratory 14 13 15 Rate Respiratory Rate [Anterior Bilateral Throughout] Blood Pressure 111/39 115/45 115/46 O2 Sat by Pulse 99 99 98 Oximetry 11/23/18 11/23/18 11/23/18 02:00 02:30 03:00 Temperature Pulse Rate 79 82 82 Pulse Rate [ Anterior Bilateral Throughout] Pulse Rate [ From Monitor] Respiratory 14 14 16 Rate Respiratory Rate [Anterior Bilateral Throughout] Blood Pressure 123/46 119/44 124/47 O2 Sat by Pulse 98 97 96 Oximetry 11/23/18 11/23/18 11/23/18 03:30 03:44 03:50 Temperature 98.7 F Pulse Rate 84 Pulse Rate [ Anterior Bilateral Throughout] Pulse Rate [ 86 From Monitor] Respiratory 15 18 22 Rate Respiratory Rate [Anterior Bilateral Throughout] Blood Pressure 130/50 O2 Sat by Pulse 97 99 Oximetry 11/23/18 11/23/18 11/23/18 03:59 04:00 04:08 Temperature Pulse Rate 80 79 112 H Pulse Rate [ Anterior Bilateral Throughout] Pulse Rate [ From Monitor] Respiratory 14 19 Rate Respiratory Rate [Anterior Bilateral Throughout] Blood Pressure 135/52 117/61 O2 Sat by Pulse 98 100 Oximetry 11/23/18 11/23/18 11/23/18 04:30 05:00 05:30 Temperature Pulse Rate 82 89 83 Pulse Rate [ Anterior Bilateral Throughout] Pulse Rate [ From Monitor] Respiratory 13 13 15 Rate Respiratory Rate [Anterior Bilateral Throughout] Blood Pressure 119/53 136/58 123/53 O2 Sat by Pulse 98 100 Oximetry 11/23/18 11/23/18 11/23/18 06:00 06:30 07:00 Temperature Pulse Rate 89 87 91 H Pulse Rate [ Anterior Bilateral Throughout] Pulse Rate [ From Monitor] Respiratory 13 16 13 Rate Respiratory Rate [Anterior Bilateral Throughout] Blood Pressure 125/55 130/54 131/60 O2 Sat by Pulse 99 100 100 Oximetry 11/23/18 11/23/18 11/23/18 07:10 07:20 07:30 Temperature Pulse Rate 90 86 Pulse Rate [ 87 92 H Anterior Bilateral Throughout] Pulse Rate [ From Monitor] Respiratory 15 15 Rate Respiratory 15 13 Rate [Anterior Bilateral Throughout] Blood Pressure 131/60 130/54 O2 Sat by Pulse 100 100 Oximetry 11/23/18 11/23/18 08:00 09:15 Temperature 98.6 F Pulse Rate 86 Pulse Rate [ Anterior Bilateral Throughout] Pulse Rate [ From Monitor] Respiratory Rate Respiratory Rate [Anterior Bilateral Throughout] Blood Pressure 129/48 O2 Sat by Pulse Oximetry Constitutional: asleep Eyes: non-icteric ENT: other (trach in position) Neck: supple, no JVD, other (trach is midline) Effort: mildly labored Ascultation: Bilateral: clear, diminished breath sounds, wheezes (sporadic), rales, rhonchi (sporadic) Percussion: Bilateral: not dull Cardiovascular: regular rate and rhythm Gastrointestinal: hypoactive bowel sounds, non-tender, non-distended, other Integumentary: normal Extremities: no edema Neurologic: normal mental status, non-focal exam Psychiatric: anxious CBC and BMP: 11/23/18 05:30 11/23/18 05:30 ABG, PT/INR, D-dimer: ABG POC ABG pH 7.446 (7.35-7.45) 11/15/18 11:33 POC ABG pCO2 46.1 (35-45) H 11/15/18 11:33 POC ABG pO2 107 (80-105) H 11/15/18 11:33 POC ABG HCO3 31.8 (22-26 mml/L) 11/15/18 11:33 POC ABG Total CO2 33 (23-27mmol/L) 11/15/18 11:33 POC ABG O2 Sat 98 11/15/18 11:33 Abnormal lab findings: Abnormal Labs 10/22/18 10/22/18 10/22/18 15:31 15:54 15:54 WBC 11.5 H RBC 5.35 H Hgb 17.4 H Hct 50.3 H MCV MCH 33 H MCHC 35 H RDW Plt Count Lymph % (Auto) 12.6 L [place] % (Auto) 14.8 H Lymph # [place] # 1.7 H Seg Neutrophils % 72.5 H Seg Neuts % (Manual) Lymphocytes % (Manual) Seg Neutrophils # 8.3 H Seg Neutrophils # Man Lymphocytes # (Manual) POC ABG pH POC ABG pCO2 POC ABG pO2 Sodium 134 L Potassium Chloride 88.1 L Carbon Dioxide BUN 51 H Creatinine 2.1 H Glucose 166 H POC Glucose Calcium Phosphorus Magnesium Iron TIBC Ferritin Alkaline Phosphatase NT-Pro-B Natriuret Pep Total Protein Albumin 3.4 L Lipase 10 L Free T4 10/23/18 10/23/18 10/23/18 04:32 04:32 10:53 WBC RBC Hgb Hct MCV MCH MCHC RDW Plt Count Lymph % (Auto) 10.2 L [place] % (Auto) 14.7 H Lymph # 0.7 L [place] # 1.0 H Seg Neutrophils % 74.9 H Seg Neuts % (Manual) Lymphocytes % (Manual) Seg Neutrophils # Seg Neutrophils # Man Lymphocytes # (Manual) POC ABG pH POC ABG pCO2 POC ABG pO2 Sodium Potassium 3.1 L D 3.5 L Chloride Carbon Dioxide BUN 41 H 37 H Creatinine Glucose 111 H 110 H POC Glucose Calcium 8.1 L 8.1 L Phosphorus Magnesium Iron TIBC Ferritin Alkaline Phosphatase NT-Pro-B Natriuret Pep Total Protein Albumin Lipase Free T4 10/24/18 10/24/18 10/25/18 05:34 05:34 04:51 WBC RBC Hgb Hct MCV MCH MCHC RDW Plt Count Lymph % (Auto) [place] % (Auto) Lymph # [place] # Seg Neutrophils % Seg Neuts % (Manual) Lymphocytes % (Manual) Seg Neutrophils # Seg Neutrophils # Man Lymphocytes # (Manual) POC ABG pH POC ABG pCO2 POC ABG pO2 Sodium Potassium 3.2 L 3.1 L Chloride 109.8 H 114.2 H Carbon Dioxide 17 L D BUN 21 H Creatinine Glucose 134 H 171 H POC Glucose Calcium 7.7 L 7.0 L Phosphorus 0.80 L* Magnesium Iron TIBC Ferritin Alkaline Phosphatase NT-Pro-B Natriuret Pep Total Protein Albumin Lipase Free T4 10/25/18 10/26/18 10/26/18 06:07 02:58 04:57 WBC RBC Hgb Hct MCV 99 H MCH 33 H MCHC RDW Plt Count Lymph % (Auto) [place] % (Auto) Lymph # [place] # Seg Neutrophils % Seg Neuts % (Manual) Lymphocytes % (Manual) Seg Neutrophils # Seg Neutrophils # Man Lymphocytes # (Manual) POC ABG pH 7.090 L 7.320 L POC ABG pCO2 65.0 H 32.8 L POC ABG pO2 76 L Sodium Potassium Chloride Carbon Dioxide BUN Creatinine Glucose POC Glucose Calcium Phosphorus Magnesium Iron TIBC Ferritin Alkaline Phosphatase NT-Pro-B Natriuret Pep Total Protein Albumin Lipase Free T4 10/26/18 10/26/18 10/26/18 06:03 06:03 11:52 WBC 23.8 H RBC Hgb 15.4 H Hct 46.1 H D MCV MCH MCHC RDW Plt Count Lymph % (Auto) [place] % (Auto) Lymph # [place] # Seg Neutrophils % Seg Neuts % (Manual) Lymphocytes % (Manual) Seg Neutrophils # Seg Neutrophils # Man Lymphocytes # (Manual) POC ABG pH POC ABG pCO2 POC ABG pO2 Sodium Potassium Chloride 109.5 H Carbon Dioxide 18 L BUN Creatinine Glucose 128 H POC Glucose 117 H Calcium 8.3 L D Phosphorus Magnesium Iron TIBC Ferritin Alkaline Phosphatase NT-Pro-B Natriuret Pep Total Protein Albumin Lipase Free T4 10/26/18 10/26/18 10/26/18 13:54 17:10 17:32 WBC RBC Hgb Hct MCV MCH MCHC RDW Plt Count Lymph % (Auto) [place] % (Auto) Lymph # [place] # Seg Neutrophils % Seg Neuts % (Manual) Lymphocytes % (Manual) Seg Neutrophils # Seg Neutrophils # Man Lymphocytes # (Manual) POC ABG pH 7.215 L POC ABG pCO2 31.8 L POC ABG pO2 69 L 204 H Sodium Potassium 3.0 L D Chloride 114.5 H Carbon Dioxide 21 L BUN Creatinine Glucose POC Glucose Calcium 7.6 L Phosphorus Magnesium 1.40 L Iron TIBC Ferritin Alkaline Phosphatase NT-Pro-B Natriuret Pep Total Protein Albumin Lipase Free T4 10/26/18 10/27/18 10/27/18 23:13 00:40 01:09 WBC RBC Hgb Hct MCV MCH MCHC RDW Plt Count Lymph % (Auto) [place] % (Auto) Lymph # [place] # Seg Neutrophils % Seg Neuts % (Manual) Lymphocytes % (Manual) Seg Neutrophils # Seg Neutrophils # Man Lymphocytes # (Manual) POC ABG pH POC ABG pCO2 POC ABG pO2 Sodium Potassium 3.4 L Chloride 115.0 H Carbon Dioxide 14 L D BUN Creatinine Glucose 228 H POC Glucose 48 L 264 H Calcium 7.1 L Phosphorus Magnesium Iron TIBC Ferritin Alkaline Phosphatase NT-Pro-B Natriuret Pep Total Protein Albumin Lipase Free T4 10/27/18 10/27/18 10/27/18 05:00 05:00 05:16 WBC 22.5 H RBC Hgb 14.7 H Hct 44.4 H MCV MCH MCHC RDW Plt Count Lymph % (Auto) [place] % (Auto) Lymph # [place] # Seg Neutrophils % Seg Neuts % (Manual) Lymphocytes % (Manual) Seg Neutrophils # Seg Neutrophils # Man Lymphocytes # (Manual) POC ABG pH 7.304 L POC ABG pCO2 POC ABG pO2 116 H Sodium Potassium Chloride 118.4 H Carbon Dioxide 16 L BUN Creatinine Glucose 123 H POC Glucose Calcium 7.7 L Phosphorus Magnesium 2.60 H Iron TIBC Ferritin Alkaline Phosphatase NT-Pro-B Natriuret Pep Total Protein Albumin Lipase Free T4 10/28/18 10/28/18 10/28/18 04:25 04:25 15:37 WBC 23.5 H RBC Hgb Hct MCV MCH MCHC RDW Plt Count Lymph % (Auto) [place] % (Auto) Lymph # [place] # Seg Neutrophils % Seg Neuts % (Manual) Lymphocytes % (Manual) Seg Neutrophils # Seg Neutrophils # Man Lymphocytes # (Manual) POC ABG pH POC ABG pCO2 POC ABG pO2 Sodium 147 H Potassium Chloride 116.9 H Carbon Dioxide 16 L BUN 23 H Creatinine Glucose POC Glucose 114 H Calcium 8.0 L Phosphorus Magnesium Iron TIBC Ferritin Alkaline Phosphatase NT-Pro-B Natriuret Pep Total Protein Albumin Lipase Free T4 10/28/18 10/28/18 10/28/18 20:33 22:07 23:31 WBC RBC Hgb Hct MCV MCH MCHC RDW Plt Count Lymph % (Auto) [place] % (Auto) Lymph # [place] # Seg Neutrophils % Seg Neuts % (Manual) Lymphocytes % (Manual) Seg Neutrophils # Seg Neutrophils # Man Lymphocytes # (Manual) POC ABG pH 7.202 L 7.235 L POC ABG pCO2 POC ABG pO2 71 L Sodium Potassium Chloride Carbon Dioxide BUN Creatinine Glucose POC Glucose 207 H Calcium Phosphorus Magnesium Iron TIBC Ferritin Alkaline Phosphatase NT-Pro-B Natriuret Pep Total Protein Albumin Lipase Free T4 10/29/18 10/29/18 10/29/18 04:30 04:30 05:26 WBC 21.1 H RBC Hgb Hct MCV MCH MCHC RDW Plt Count Lymph % (Auto) [place] % (Auto) Lymph # [place] # Seg Neutrophils % Seg Neuts % (Manual) 97.0 H Lymphocytes % (Manual) 3.0 L Seg Neutrophils # Seg Neutrophils # Man 20.5 H Lymphocytes # (Manual) 0.6 L POC ABG pH 7.305 L POC ABG pCO2 30.5 L POC ABG pO2 75 L Sodium 147 H Potassium 3.5 L Chloride 120.0 H Carbon Dioxide 17 L BUN 30 H Creatinine Glucose 246 H POC Glucose Calcium 7.9 L Phosphorus Magnesium Iron TIBC Ferritin Alkaline Phosphatase NT-Pro-B Natriuret Pep Total Protein Albumin Lipase Free T4 10/29/18 10/29/18 10/29/18 05:36 11:39 18:00 WBC RBC Hgb Hct MCV MCH MCHC RDW Plt Count Lymph % (Auto) [place] % (Auto) Lymph # [place] # Seg Neutrophils % Seg Neuts % (Manual) Lymphocytes % (Manual) Seg Neutrophils # Seg Neutrophils # Man Lymphocytes # (Manual) POC ABG pH POC ABG pCO2 POC ABG pO2 Sodium Potassium Chloride Carbon Dioxide BUN Creatinine Glucose POC Glucose 204 H 224 H 221 H Calcium Phosphorus Magnesium Iron TIBC Ferritin Alkaline Phosphatase NT-Pro-B Natriuret Pep Total Protein Albumin Lipase Free T4 10/29/18 10/30/18 10/30/18 23:17 05:00 05:00 WBC 21.4 H RBC Hgb Hct MCV MCH MCHC RDW Plt Count 134 L Lymph % (Auto) [place] % (Auto) Lymph # [place] # Seg Neutrophils % Seg Neuts % (Manual) 97.0 H Lymphocytes % (Manual) 3.0 L Seg Neutrophils # Seg Neutrophils # Man 20.8 H Lymphocytes # (Manual) 0.6 L POC ABG pH POC ABG pCO2 POC ABG pO2 Sodium 148 H Potassium 3.1 L Chloride 120.3 H Carbon Dioxide 18 L BUN 31 H Creatinine Glucose 205 H POC Glucose 181 H Calcium 8.0 L Phosphorus Magnesium Iron TIBC Ferritin Alkaline Phosphatase NT-Pro-B Natriuret Pep Total Protein Albumin Lipase Free T4 10/30/18 10/30/18 10/30/18 05:14 05:25 05:26 WBC RBC Hgb Hct MCV MCH MCHC RDW Plt Count Lymph % (Auto) [place] % (Auto) Lymph # [place] # Seg Neutrophils % Seg Neuts % (Manual) Lymphocytes % (Manual) Seg Neutrophils # Seg Neutrophils # Man Lymphocytes # (Manual) POC ABG pH 7.296 L 7.245 L POC ABG pCO2 31.1 L POC ABG pO2 54 L 59 L Sodium Potassium Chloride Carbon Dioxide BUN Creatinine Glucose POC Glucose 199 H Calcium Phosphorus Magnesium Iron TIBC Ferritin Alkaline Phosphatase NT-Pro-B Natriuret Pep Total Protein Albumin Lipase Free T4 10/30/18 10/30/18 10/31/18 13:23 18:25 00:22 WBC RBC Hgb Hct MCV MCH MCHC RDW Plt Count Lymph % (Auto) [place] % (Auto) Lymph # [place] # Seg Neutrophils % Seg Neuts % (Manual) Lymphocytes % (Manual) Seg Neutrophils # Seg Neutrophils # Man Lymphocytes # (Manual) POC ABG pH POC ABG pCO2 POC ABG pO2 Sodium Potassium Chloride Carbon Dioxide BUN Creatinine Glucose POC Glucose 146 H 158 H 162 H Calcium Phosphorus Magnesium Iron TIBC Ferritin Alkaline Phosphatase NT-Pro-B Natriuret Pep Total Protein Albumin Lipase Free T4 10/31/18 10/31/18 10/31/18 04:39 05:14 07:05 WBC RBC Hgb Hct MCV MCH MCHC RDW Plt Count Lymph % (Auto) [place] % (Auto) Lymph # [place] # Seg Neutrophils % Seg Neuts % (Manual) Lymphocytes % (Manual) Seg Neutrophils # Seg Neutrophils # Man Lymphocytes # (Manual) POC ABG pH 7.238 L POC ABG pCO2 POC ABG pO2 Sodium Potassium Chloride 115.8 H Carbon Dioxide 18 L BUN 39 H Creatinine 1.3 H Glucose 167 H POC Glucose 145 H Calcium 7.5 L Phosphorus 1.80 L Magnesium Iron TIBC Ferritin Alkaline Phosphatase NT-Pro-B Natriuret Pep Total Protein Albumin Lipase Free T4 10/31/18 10/31/18 10/31/18 10:43 12:03 17:00 WBC RBC Hgb Hct MCV MCH MCHC RDW Plt Count Lymph % (Auto) [place] % (Auto) Lymph # [place] # Seg Neutrophils % Seg Neuts % (Manual) Lymphocytes % (Manual) Seg Neutrophils # Seg Neutrophils # Man Lymphocytes # (Manual) POC ABG pH 7.304 L POC ABG pCO2 33.3 L POC ABG pO2 Sodium Potassium Chloride Carbon Dioxide BUN Creatinine Glucose POC Glucose 159 H Calcium Phosphorus Magnesium Iron TIBC Ferritin Alkaline Phosphatase NT-Pro-B Natriuret Pep Total Protein Albumin Lipase Free T4 0.49 L 10/31/18 11/01/18 11/01/18 17:00 00:44 05:27 WBC RBC Hgb Hct MCV MCH MCHC RDW Plt Count Lymph % (Auto) [place] % (Auto) Lymph # [place] # Seg Neutrophils % Seg Neuts % (Manual) Lymphocytes % (Manual) Seg Neutrophils # Seg Neutrophils # Man Lymphocytes # (Manual) POC ABG pH 7.248 L POC ABG pCO2 34.8 L POC ABG pO2 135 H Sodium Potassium Chloride Carbon Dioxide BUN Creatinine Glucose POC Glucose 127 H 118 H Calcium Phosphorus Magnesium Iron TIBC Ferritin Alkaline Phosphatase NT-Pro-B Natriuret Pep Total Protein Albumin Lipase Free T4 11/01/18 11/01/18 11/01/18 06:40 06:40 06:53 WBC 18.9 H RBC 3.63 L Hgb Hct MCV MCH MCHC RDW Plt Count 64 L Lymph % (Auto) [place] % (Auto) Lymph # [place] # Seg Neutrophils % Seg Neuts % (Manual) 98.0 H Lymphocytes % (Manual) 1.0 L Seg Neutrophils # Seg Neutrophils # Man 18.5 H Lymphocytes # (Manual) 0.2 L POC ABG pH POC ABG pCO2 POC ABG pO2 Sodium Potassium 3.5 L Chloride 114.2 H Carbon Dioxide 17 L BUN 49 H Creatinine Glucose 107 H POC Glucose 127 H Calcium 7.3 L Phosphorus Magnesium 1.60 L Iron TIBC Ferritin Alkaline Phosphatase NT-Pro-B Natriuret Pep Total Protein Albumin Lipase Free T4 11/01/18 11/01/18 11/01/18 11:49 13:13 17:24 WBC RBC Hgb Hct MCV MCH MCHC RDW Plt Count Lymph % (Auto) [place] % (Auto) Lymph # [place] # Seg Neutrophils % Seg Neuts % (Manual) Lymphocytes % (Manual) Seg Neutrophils # Seg Neutrophils # Man Lymphocytes # (Manual) POC ABG pH POC ABG pCO2 POC ABG pO2 182 H Sodium Potassium Chloride Carbon Dioxide BUN Creatinine Glucose POC Glucose 134 H 111 H Calcium Phosphorus Magnesium Iron TIBC Ferritin Alkaline Phosphatase NT-Pro-B Natriuret Pep Total Protein Albumin Lipase Free T4 11/01/18 11/02/18 11/02/18 23:07 04:32 05:00 WBC RBC Hgb Hct MCV MCH MCHC RDW Plt Count Lymph % (Auto) [place] % (Auto) Lymph # [place] # Seg Neutrophils % Seg Neuts % (Manual) Lymphocytes % (Manual) Seg Neutrophils # Seg Neutrophils # Man Lymphocytes # (Manual) POC ABG pH 7.244 L POC ABG pCO2 33.2 L POC ABG pO2 123 H Sodium Potassium 3.0 L Chloride 114.1 H Carbon Dioxide 15 L BUN 47 H Creatinine Glucose 127 H POC Glucose 123 H Calcium 7.7 L Phosphorus Magnesium Iron TIBC Ferritin Alkaline Phosphatase NT-Pro-B Natriuret Pep Total Protein Albumin Lipase Free T4 11/02/18 11/02/18 11/02/18 05:00 05:29 11:27 WBC RBC Hgb Hct MCV MCH MCHC RDW Plt Count Lymph % (Auto) [place] % (Auto) Lymph # [place] # Seg Neutrophils % Seg Neuts % (Manual) Lymphocytes % (Manual) Seg Neutrophils # Seg Neutrophils # Man Lymphocytes # (Manual) POC ABG pH POC ABG pCO2 POC ABG pO2 Sodium Potassium Chloride Carbon Dioxide BUN Creatinine Glucose POC Glucose 118 H 137 H Calcium Phosphorus Magnesium 1.60 L Iron TIBC Ferritin Alkaline Phosphatase NT-Pro-B Natriuret Pep Total Protein Albumin Lipase Free T4 11/02/18 11/02/18 11/03/18 12:53 23:35 04:14 WBC RBC Hgb Hct MCV MCH MCHC RDW Plt Count Lymph % (Auto) [place] % (Auto) Lymph # [place] # Seg Neutrophils % Seg Neuts % (Manual) Lymphocytes % (Manual) Seg Neutrophils # Seg Neutrophils # Man Lymphocytes # (Manual) POC ABG pH POC ABG pCO2 30.3 L POC ABG pO2 134 H 129 H Sodium Potassium Chloride Carbon Dioxide BUN Creatinine Glucose POC Glucose 115 H Calcium Phosphorus Magnesium Iron TIBC Ferritin Alkaline Phosphatase NT-Pro-B Natriuret Pep Total Protein Albumin Lipase Free T4 11/03/18 11/03/18 11/03/18 05:34 11:30 11:30 WBC 16.4 H RBC 3.50 L Hgb Hct MCV MCH MCHC RDW Plt Count 136 L D Lymph % (Auto) [place] % (Auto) Lymph # [place] # Seg Neutrophils % Seg Neuts % (Manual) 97.0 H Lymphocytes % (Manual) 2.0 L Seg Neutrophils # Seg Neutrophils # Man 15.9 H Lymphocytes # (Manual) 0.3 L POC ABG pH POC ABG pCO2 POC ABG pO2 Sodium Potassium 3.1 L Chloride 110.4 H Carbon Dioxide 17 L BUN 41 H Creatinine Glucose 129 H POC Glucose 116 H Calcium 7.7 L Phosphorus Magnesium 1.60 L Iron TIBC Ferritin Alkaline Phosphatase NT-Pro-B Natriuret Pep Total Protein 4.2 L Albumin 1.2 L Lipase Free T4 11/03/18 11/03/18 11/03/18 12:01 17:35 21:37 WBC RBC Hgb Hct MCV MCH MCHC RDW Plt Count Lymph % (Auto) [place] % (Auto) Lymph # [place] # Seg Neutrophils % Seg Neuts % (Manual) Lymphocytes % (Manual) Seg Neutrophils # Seg Neutrophils # Man Lymphocytes # (Manual) POC ABG pH POC ABG pCO2 POC ABG pO2 Sodium Potassium Chloride Carbon Dioxide BUN Creatinine Glucose POC Glucose 132 H 132 H 126 H Calcium Phosphorus Magnesium Iron TIBC Ferritin Alkaline Phosphatase NT-Pro-B Natriuret Pep Total Protein Albumin Lipase Free T4 11/03/18 11/04/18 11/04/18 23:30 05:14 05:15 WBC RBC Hgb Hct MCV MCH MCHC RDW Plt Count Lymph % (Auto) [place] % (Auto) Lymph # [place] # Seg Neutrophils % Seg Neuts % (Manual) Lymphocytes % (Manual) Seg Neutrophils # Seg Neutrophils # Man Lymphocytes # (Manual) POC ABG pH POC ABG pCO2 30.9 L POC ABG pO2 192 H Sodium Potassium Chloride Carbon Dioxide BUN Creatinine Glucose POC Glucose 115 H 123 H Calcium Phosphorus Magnesium Iron TIBC Ferritin Alkaline Phosphatase NT-Pro-B Natriuret Pep Total Protein Albumin Lipase Free T4 11/04/18 11/04/18 11/04/18 09:39 09:39 11:43 WBC 15.2 H RBC 3.18 L Hgb Hct 29.9 L MCV MCH MCHC RDW Plt Count Lymph % (Auto) [place] % (Auto) Lymph # [place] # Seg Neutrophils % Seg Neuts % (Manual) 98.0 H Lymphocytes % (Manual) 1.0 L Seg Neutrophils # Seg Neutrophils # Man 14.9 H Lymphocytes # (Manual) 0.2 L POC ABG pH POC ABG pCO2 POC ABG pO2 Sodium 135 L D Potassium Chloride 109.5 H Carbon Dioxide 16 L BUN 46 H Creatinine Glucose 136 H POC Glucose 138 H Calcium 8.0 L Phosphorus Magnesium Iron TIBC Ferritin Alkaline Phosphatase NT-Pro-B Natriuret Pep Total Protein Albumin Lipase Free T4 11/04/18 11/04/18 11/05/18 17:31 23:42 05:23 WBC RBC Hgb Hct MCV MCH MCHC RDW Plt Count Lymph % (Auto) [place] % (Auto) Lymph # [place] # Seg Neutrophils % Seg Neuts % (Manual) Lymphocytes % (Manual) Seg Neutrophils # Seg Neutrophils # Man Lymphocytes # (Manual) POC ABG pH POC ABG pCO2 POC ABG pO2 Sodium Potassium Chloride Carbon Dioxide BUN Creatinine Glucose POC Glucose 139 H 138 H 148 H Calcium Phosphorus Magnesium Iron TIBC Ferritin Alkaline Phosphatase NT-Pro-B Natriuret Pep Total Protein Albumin Lipase Free T4 11/05/18 11/05/18 11/05/18 05:30 05:30 11:46 WBC 14.2 H RBC 3.12 L Hgb 10.0 L Hct 29.1 L MCV MCH MCHC RDW Plt Count Lymph % (Auto) [place] % (Auto) Lymph # [place] # Seg Neutrophils % Seg Neuts % (Manual) Lymphocytes % (Manual) Seg Neutrophils # Seg Neutrophils # Man Lymphocytes # (Manual) POC ABG pH POC ABG pCO2 POC ABG pO2 Sodium Potassium Chloride Carbon Dioxide 21 L BUN 42 H Creatinine Glucose 125 H POC Glucose 157 H Calcium 7.9 L Phosphorus Magnesium Iron TIBC Ferritin Alkaline Phosphatase NT-Pro-B Natriuret Pep Total Protein Albumin Lipase Free T4 11/05/18 11/05/18 11/05/18 17:09 20:03 23:43 WBC RBC Hgb Hct MCV MCH MCHC RDW Plt Count Lymph % (Auto) [place] % (Auto) Lymph # [place] # Seg Neutrophils % Seg Neuts % (Manual) Lymphocytes % (Manual) Seg Neutrophils # Seg Neutrophils # Man Lymphocytes # (Manual) POC ABG pH POC ABG pCO2 POC ABG pO2 76 L Sodium Potassium Chloride Carbon Dioxide BUN Creatinine Glucose POC Glucose 142 H 204 H Calcium Phosphorus Magnesium Iron TIBC Ferritin Alkaline Phosphatase NT-Pro-B Natriuret Pep Total Protein Albumin Lipase Free T4 11/06/18 11/06/18 11/06/18 04:21 12:14 17:17 WBC RBC Hgb Hct MCV MCH MCHC RDW Plt Count Lymph % (Auto) [place] % (Auto) Lymph # [place] # Seg Neutrophils % Seg Neuts % (Manual) Lymphocytes % (Manual) Seg Neutrophils # Seg Neutrophils # Man Lymphocytes # (Manual) POC ABG pH POC ABG pCO2 POC ABG pO2 Sodium 133 L Potassium Chloride Carbon Dioxide 18 L BUN 47 H Creatinine Glucose 187 H POC Glucose 232 H 199 H Calcium 7.8 L Phosphorus 5.30 H D Magnesium 2.50 H Iron TIBC Ferritin Alkaline Phosphatase NT-Pro-B Natriuret Pep Total Protein Albumin Lipase Free T4 11/06/18 11/06/18 11/07/18 19:46 23:30 00:00 WBC RBC Hgb Hct MCV MCH MCHC RDW Plt Count Lymph % (Auto) [place] % (Auto) Lymph # [place] # Seg Neutrophils % Seg Neuts % (Manual) Lymphocytes % (Manual) Seg Neutrophils # Seg Neutrophils # Man Lymphocytes # (Manual) POC ABG pH 7.317 L POC ABG pCO2 50.3 H POC ABG pO2 58 L 57 L Sodium Potassium Chloride Carbon Dioxide BUN Creatinine Glucose POC Glucose 224 H Calcium Phosphorus Magnesium Iron TIBC Ferritin Alkaline Phosphatase NT-Pro-B Natriuret Pep Total Protein Albumin Lipase Free T4 11/07/18 11/07/18 11/07/18 04:55 04:55 04:55 WBC 25.2 H RBC 3.64 L Hgb Hct MCV MCH MCHC RDW Plt Count Lymph % (Auto) [place] % (Auto) Lymph # [place] # Seg Neutrophils % Seg Neuts % (Manual) Lymphocytes % (Manual) Seg Neutrophils # Seg Neutrophils # Man Lymphocytes # (Manual) POC ABG pH POC ABG pCO2 POC ABG pO2 Sodium Potassium Chloride Carbon Dioxide BUN 54 H Creatinine Glucose 270 H POC Glucose Calcium 7.9 L Phosphorus 5.00 H Magnesium Iron TIBC Ferritin Alkaline Phosphatase NT-Pro-B Natriuret Pep 4507 H Total Protein Albumin Lipase Free T4 11/07/18 11/07/18 11/07/18 05:46 08:08 11:52 WBC RBC Hgb Hct MCV MCH MCHC RDW Plt Count Lymph % (Auto) [place] % (Auto) Lymph # [place] # Seg Neutrophils % Seg Neuts % (Manual) Lymphocytes % (Manual) Seg Neutrophils # Seg Neutrophils # Man Lymphocytes # (Manual) POC ABG pH POC ABG pCO2 47.6 H POC ABG pO2 106 H Sodium Potassium Chloride Carbon Dioxide BUN Creatinine Glucose POC Glucose 266 H 323 H Calcium Phosphorus Magnesium Iron TIBC Ferritin Alkaline Phosphatase NT-Pro-B Natriuret Pep Total Protein Albumin Lipase Free T4 11/07/18 11/07/18 11/07/18 12:29 17:57 23:48 WBC RBC Hgb Hct MCV MCH MCHC RDW Plt Count Lymph % (Auto) [place] % (Auto) Lymph # [place] # Seg Neutrophils % Seg Neuts % (Manual) Lymphocytes % (Manual) Seg Neutrophils # Seg Neutrophils # Man Lymphocytes # (Manual) POC ABG pH POC ABG pCO2 POC ABG pO2 Sodium Potassium Chloride Carbon Dioxide BUN Creatinine Glucose POC Glucose 325 H 286 H 231 H Calcium Phosphorus Magnesium Iron TIBC Ferritin Alkaline Phosphatase NT-Pro-B Natriuret Pep Total Protein Albumin Lipase Free T4 11/08/18 11/08/18 11/08/18 03:58 05:05 05:05 WBC 18.4 H RBC 3.20 L Hgb 10.0 L Hct 29.7 L MCV MCH MCHC RDW Plt Count Lymph % (Auto) [place] % (Auto) Lymph # [place] # Seg Neutrophils % Seg Neuts % (Manual) Lymphocytes % (Manual) Seg Neutrophils # Seg Neutrophils # Man Lymphocytes # (Manual) POC ABG pH 7.524 H POC ABG pCO2 34.3 L POC ABG pO2 Sodium Potassium Chloride Carbon Dioxide BUN 61 H Creatinine Glucose 253 H POC Glucose Calcium 7.6 L Phosphorus Magnesium Iron TIBC Ferritin Alkaline Phosphatase NT-Pro-B Natriuret Pep Total Protein Albumin Lipase Free T4 11/08/18 11/08/18 11/08/18 05:28 11:28 18:21 WBC RBC Hgb Hct MCV MCH MCHC RDW Plt Count Lymph % (Auto) [place] % (Auto) Lymph # [place] # Seg Neutrophils % Seg Neuts % (Manual) Lymphocytes % (Manual) Seg Neutrophils # Seg Neutrophils # Man Lymphocytes # (Manual) POC ABG pH POC ABG pCO2 POC ABG pO2 Sodium Potassium Chloride Carbon Dioxide BUN Creatinine Glucose POC Glucose 295 H 253 H 225 H Calcium Phosphorus Magnesium Iron TIBC Ferritin Alkaline Phosphatase NT-Pro-B Natriuret Pep Total Protein Albumin Lipase Free T4 11/09/18 11/09/18 11/09/18 00:57 04:06 06:06 WBC RBC Hgb Hct MCV MCH MCHC RDW Plt Count Lymph % (Auto) [place] % (Auto) Lymph # [place] # Seg Neutrophils % Seg Neuts % (Manual) Lymphocytes % (Manual) Seg Neutrophils # Seg Neutrophils # Man Lymphocytes # (Manual) POC ABG pH 7.509 H POC ABG pCO2 POC ABG pO2 Sodium Potassium Chloride Carbon Dioxide BUN Creatinine Glucose POC Glucose 218 H 199 H Calcium Phosphorus Magnesium Iron TIBC Ferritin Alkaline Phosphatase NT-Pro-B Natriuret Pep Total Protein Albumin Lipase Free T4 11/09/18 11/09/18 11/09/18 06:51 06:51 12:07 WBC 13.5 H RBC 2.97 L Hgb 9.3 L Hct 27.6 L MCV MCH MCHC RDW Plt Count Lymph % (Auto) [place] % (Auto) Lymph # [place] # Seg Neutrophils % Seg Neuts % (Manual) Lymphocytes % (Manual) Seg Neutrophils # Seg Neutrophils # Man Lymphocytes # (Manual) POC ABG pH POC ABG pCO2 POC ABG pO2 Sodium Potassium Chloride 96.5 L Carbon Dioxide 32 H BUN 58 H Creatinine Glucose 191 H POC Glucose 212 H Calcium 7.5 L Phosphorus Magnesium Iron TIBC Ferritin Alkaline Phosphatase NT-Pro-B Natriuret Pep Total Protein Albumin Lipase Free T4 11/09/18 11/10/18 11/10/18 18:29 00:09 04:21 WBC RBC Hgb Hct MCV MCH MCHC RDW Plt Count Lymph % (Auto) [place] % (Auto) Lymph # [place] # Seg Neutrophils % Seg Neuts % (Manual) Lymphocytes % (Manual) Seg Neutrophils # Seg Neutrophils # Man Lymphocytes # (Manual) POC ABG pH 7.467 H POC ABG pCO2 49.9 H POC ABG pO2 76 L Sodium Potassium Chloride Carbon Dioxide BUN Creatinine Glucose POC Glucose 192 H 214 H Calcium Phosphorus Magnesium Iron TIBC Ferritin Alkaline Phosphatase NT-Pro-B Natriuret Pep Total Protein Albumin Lipase Free T4 11/10/18 11/10/18 11/10/18 04:39 04:39 06:05 WBC 14.3 H RBC 3.09 L Hgb 9.7 L Hct 28.9 L MCV MCH MCHC RDW Plt Count Lymph % (Auto) [place] % (Auto) Lymph # [place] # Seg Neutrophils % Seg Neuts % (Manual) Lymphocytes % (Manual) Seg Neutrophils # Seg Neutrophils # Man Lymphocytes # (Manual) POC ABG pH POC ABG pCO2 POC ABG pO2 Sodium Potassium Chloride 97.5 L Carbon Dioxide 31 H BUN 53 H Creatinine Glucose 196 H POC Glucose 202 H Calcium 7.7 L Phosphorus Magnesium Iron TIBC Ferritin Alkaline Phosphatase NT-Pro-B Natriuret Pep Total Protein Albumin Lipase Free T4 11/10/18 11/10/18 11/11/18 12:32 17:16 00:06 WBC RBC Hgb Hct MCV MCH MCHC RDW Plt Count Lymph % (Auto) [place] % (Auto) Lymph # [place] # Seg Neutrophils % Seg Neuts % (Manual) Lymphocytes % (Manual) Seg Neutrophils # Seg Neutrophils # Man Lymphocytes # (Manual) POC ABG pH POC ABG pCO2 POC ABG pO2 Sodium Potassium Chloride Carbon Dioxide BUN Creatinine Glucose POC Glucose 197 H 200 H 177 H Calcium Phosphorus Magnesium Iron TIBC Ferritin Alkaline Phosphatase NT-Pro-B Natriuret Pep Total Protein Albumin Lipase Free T4 11/11/18 11/11/18 11/11/18 04:43 05:24 05:50 WBC 14.1 H RBC 2.92 L Hgb 9.1 L Hct 27.0 L MCV MCH MCHC RDW Plt Count Lymph % (Auto) [place] % (Auto) Lymph # [place] # Seg Neutrophils % Seg Neuts % (Manual) Lymphocytes % (Manual) Seg Neutrophils # Seg Neutrophils # Man Lymphocytes # (Manual) POC ABG pH POC ABG pCO2 50.1 H POC ABG pO2 Sodium Potassium Chloride Carbon Dioxide BUN Creatinine Glucose POC Glucose 199 H Calcium Phosphorus Magnesium Iron TIBC Ferritin Alkaline Phosphatase NT-Pro-B Natriuret Pep Total Protein Albumin Lipase Free T4 11/11/18 11/11/18 11/11/18 05:50 12:00 17:57 WBC RBC Hgb Hct MCV MCH MCHC RDW Plt Count Lymph % (Auto) [place] % (Auto) Lymph # [place] # Seg Neutrophils % Seg Neuts % (Manual) Lymphocytes % (Manual) Seg Neutrophils # Seg Neutrophils # Man Lymphocytes # (Manual) POC ABG pH POC ABG pCO2 POC ABG pO2 Sodium Potassium 3.5 L Chloride Carbon Dioxide 34 H BUN 47 H Creatinine 0.5 L Glucose 169 H POC Glucose 168 H 194 H Calcium 8.2 L Phosphorus Magnesium Iron TIBC Ferritin Alkaline Phosphatase 142 H NT-Pro-B Natriuret Pep Total Protein 4.4 L Albumin 2.1 L Lipase Free T4 11/11/18 11/12/18 11/12/18 23:26 05:32 09:26 WBC RBC Hgb Hct MCV MCH MCHC RDW Plt Count Lymph % (Auto) [place] % (Auto) Lymph # [place] # Seg Neutrophils % Seg Neuts % (Manual) Lymphocytes % (Manual) Seg Neutrophils # Seg Neutrophils # Man Lymphocytes # (Manual) POC ABG pH POC ABG pCO2 POC ABG pO2 Sodium Potassium Chloride Carbon Dioxide BUN Creatinine Glucose POC Glucose 181 H 186 H 158 H Calcium Phosphorus Magnesium Iron TIBC Ferritin Alkaline Phosphatase NT-Pro-B Natriuret Pep Total Protein Albumin Lipase Free T4 11/12/18 11/12/18 11/12/18 11:42 17:39 23:25 WBC RBC Hgb Hct MCV MCH MCHC RDW Plt Count Lymph % (Auto) [place] % (Auto) Lymph # [place] # Seg Neutrophils % Seg Neuts % (Manual) Lymphocytes % (Manual) Seg Neutrophils # Seg Neutrophils # Man Lymphocytes # (Manual) POC ABG pH POC ABG pCO2 POC ABG pO2 Sodium Potassium Chloride Carbon Dioxide BUN Creatinine Glucose POC Glucose 141 H 183 H 147 H Calcium Phosphorus Magnesium Iron TIBC Ferritin Alkaline Phosphatase NT-Pro-B Natriuret Pep Total Protein Albumin Lipase Free T4 11/13/18 11/13/18 11/13/18 12:16 18:10 21:21 WBC RBC Hgb Hct MCV MCH MCHC RDW Plt Count Lymph % (Auto) [place] % (Auto) Lymph # [place] # Seg Neutrophils % Seg Neuts % (Manual) Lymphocytes % (Manual) Seg Neutrophils # Seg Neutrophils # Man Lymphocytes # (Manual) POC ABG pH POC ABG pCO2 POC ABG pO2 Sodium Potassium Chloride Carbon Dioxide BUN Creatinine Glucose POC Glucose 114 H 127 H 185 H Calcium Phosphorus Magnesium Iron TIBC Ferritin Alkaline Phosphatase NT-Pro-B Natriuret Pep Total Protein Albumin Lipase Free T4 11/13/18 11/14/18 11/14/18 23:11 03:28 03:28 WBC RBC Hgb Hct MCV MCH MCHC RDW Plt Count Lymph % (Auto) [place] % (Auto) Lymph # [place] # Seg Neutrophils % Seg Neuts % (Manual) Lymphocytes % (Manual) Seg Neutrophils # Seg Neutrophils # Man Lymphocytes # (Manual) POC ABG pH POC ABG pCO2 POC ABG pO2 Sodium Potassium Chloride Carbon Dioxide BUN Creatinine Glucose POC Glucose 184 H Calcium Phosphorus Magnesium Iron 31 L TIBC 173 L Ferritin 510.3 H Alkaline Phosphatase NT-Pro-B Natriuret Pep Total Protein Albumin Lipase Free T4 11/14/18 11/14/18 11/14/18 05:12 07:59 10:05 WBC 19.8 H RBC 2.67 L Hgb 8.4 L Hct 25.2 L MCV MCH MCHC RDW Plt Count Lymph % (Auto) [place] % (Auto) Lymph # [place] # Seg Neutrophils % Seg Neuts % (Manual) 96.0 H Lymphocytes % (Manual) 0 L Seg Neutrophils # Seg Neutrophils # Man 19.0 H Lymphocytes # (Manual) 0.0 L POC ABG pH 7.470 H POC ABG pCO2 POC ABG pO2 Sodium Potassium Chloride Carbon Dioxide BUN Creatinine Glucose POC Glucose 178 H Calcium Phosphorus Magnesium Iron TIBC Ferritin Alkaline Phosphatase NT-Pro-B Natriuret Pep Total Protein Albumin Lipase Free T4 11/14/18 11/14/18 11/14/18 11:40 18:03 23:15 WBC RBC Hgb Hct MCV MCH MCHC RDW Plt Count Lymph % (Auto) [place] % (Auto) Lymph # [place] # Seg Neutrophils % Seg Neuts % (Manual) Lymphocytes % (Manual) Seg Neutrophils # Seg Neutrophils # Man Lymphocytes # (Manual) POC ABG pH POC ABG pCO2 POC ABG pO2 Sodium Potassium Chloride Carbon Dioxide BUN Creatinine Glucose POC Glucose 168 H 221 H 223 H Calcium Phosphorus Magnesium Iron TIBC Ferritin Alkaline Phosphatase NT-Pro-B Natriuret Pep Total Protein Albumin Lipase Free T4 11/15/18 11/15/18 11/15/18 05:29 11:33 12:13 WBC RBC Hgb Hct MCV MCH MCHC RDW Plt Count Lymph % (Auto) [place] % (Auto) Lymph # [place] # Seg Neutrophils % Seg Neuts % (Manual) Lymphocytes % (Manual) Seg Neutrophils # Seg Neutrophils # Man Lymphocytes # (Manual) POC ABG pH POC ABG pCO2 46.1 H POC ABG pO2 107 H Sodium Potassium Chloride Carbon Dioxide BUN Creatinine Glucose POC Glucose 210 H 199 H Calcium Phosphorus Magnesium Iron TIBC Ferritin Alkaline Phosphatase NT-Pro-B Natriuret Pep Total Protein Albumin Lipase Free T4 11/15/18 11/15/18 11/15/18 14:32 17:45 23:29 WBC RBC Hgb Hct MCV MCH MCHC RDW Plt Count Lymph % (Auto) [place] % (Auto) Lymph # [place] # Seg Neutrophils % Seg Neuts % (Manual) Lymphocytes % (Manual) Seg Neutrophils # Seg Neutrophils # Man Lymphocytes # (Manual) POC ABG pH POC ABG pCO2 POC ABG pO2 Sodium 149 H Potassium 3.1 L Chloride 109.2 H Carbon Dioxide BUN 36 H Creatinine 0.5 L Glucose 164 H POC Glucose 154 H 163 H Calcium 7.5 L Phosphorus Magnesium Iron TIBC Ferritin Alkaline Phosphatase NT-Pro-B Natriuret Pep Total Protein Albumin Lipase Free T4 11/16/18 11/16/18 11/16/18 05:54 12:05 12:57 WBC RBC Hgb Hct MCV MCH MCHC RDW Plt Count Lymph % (Auto) [place] % (Auto) Lymph # [place] # Seg Neutrophils % Seg Neuts % (Manual) Lymphocytes % (Manual) Seg Neutrophils # Seg Neutrophils # Man Lymphocytes # (Manual) POC ABG pH POC ABG pCO2 POC ABG pO2 Sodium 150 H Potassium 3.0 L Chloride 109.0 H Carbon Dioxide BUN 41 H Creatinine 0.5 L Glucose 158 H POC Glucose 168 H 176 H Calcium 7.6 L Phosphorus Magnesium Iron TIBC Ferritin Alkaline Phosphatase NT-Pro-B Natriuret Pep Total Protein Albumin Lipase Free T4 11/16/18 11/16/18 11/17/18 16:49 23:22 04:25 WBC 16.2 H RBC 2.72 L Hgb 8.7 L Hct 25.9 L MCV MCH MCHC RDW 15.6 H Plt Count Lymph % (Auto) [place] % (Auto) Lymph # [place] # Seg Neutrophils % Seg Neuts % (Manual) 97.0 H Lymphocytes % (Manual) 1.0 L Seg Neutrophils # Seg Neutrophils # Man 15.7 H Lymphocytes # (Manual) 0.2 L POC ABG pH POC ABG pCO2 POC ABG pO2 Sodium Potassium Chloride Carbon Dioxide BUN Creatinine Glucose POC Glucose 163 H 230 H Calcium Phosphorus Magnesium Iron TIBC Ferritin Alkaline Phosphatase NT-Pro-B Natriuret Pep Total Protein Albumin Lipase Free T4 11/17/18 11/17/18 11/17/18 04:25 05:56 12:39 WBC RBC Hgb Hct MCV MCH MCHC RDW Plt Count Lymph % (Auto) [place] % (Auto) Lymph # [place] # Seg Neutrophils % Seg Neuts % (Manual) Lymphocytes % (Manual) Seg Neutrophils # Seg Neutrophils # Man Lymphocytes # (Manual) POC ABG pH POC ABG pCO2 POC ABG pO2 Sodium 152 H Potassium 3.4 L Chloride 109.9 H Carbon Dioxide 32 H BUN 40 H Creatinine 0.5 L Glucose 155 H POC Glucose 173 H 193 H Calcium 7.9 L Phosphorus Magnesium Iron TIBC Ferritin Alkaline Phosphatase NT-Pro-B Natriuret Pep Total Protein Albumin Lipase Free T4 11/17/18 11/17/18 11/18/18 17:08 23:06 04:26 WBC 18.3 H RBC 2.52 L Hgb 8.0 L Hct 24.5 L MCV MCH MCHC RDW 16.0 H Plt Count Lymph % (Auto) [place] % (Auto) Lymph # [place] # Seg Neutrophils % Seg Neuts % (Manual) 96.0 H Lymphocytes % (Manual) 0 L Seg Neutrophils # Seg Neutrophils # Man 17.6 H Lymphocytes # (Manual) 0.0 L POC ABG pH POC ABG pCO2 POC ABG pO2 Sodium Potassium Chloride Carbon Dioxide BUN Creatinine Glucose POC Glucose 203 H 167 H Calcium Phosphorus Magnesium Iron TIBC Ferritin Alkaline Phosphatase NT-Pro-B Natriuret Pep Total Protein Albumin Lipase Free T4 11/18/18 11/18/18 11/18/18 04:26 05:29 13:52 WBC RBC Hgb Hct MCV MCH MCHC RDW Plt Count Lymph % (Auto) [place] % (Auto) Lymph # [place] # Seg Neutrophils % Seg Neuts % (Manual) Lymphocytes % (Manual) Seg Neutrophils # Seg Neutrophils # Man Lymphocytes # (Manual) POC ABG pH POC ABG pCO2 POC ABG pO2 Sodium 149 H Potassium Chloride 110.5 H Carbon Dioxide BUN 41 H Creatinine 0.4 L Glucose 127 H POC Glucose 128 H 109 H Calcium 7.9 L Phosphorus Magnesium Iron TIBC Ferritin Alkaline Phosphatase NT-Pro-B Natriuret Pep Total Protein Albumin Lipase Free T4 11/18/18 11/18/18 11/19/18 18:05 23:33 05:34 WBC RBC Hgb Hct MCV MCH MCHC RDW Plt Count Lymph % (Auto) [place] % (Auto) Lymph # [place] # Seg Neutrophils % Seg Neuts % (Manual) Lymphocytes % (Manual) Seg Neutrophils # Seg Neutrophils # Man Lymphocytes # (Manual) POC ABG pH POC ABG pCO2 POC ABG pO2 Sodium Potassium Chloride Carbon Dioxide BUN Creatinine Glucose POC Glucose 174 H 178 H 116 H Calcium Phosphorus Magnesium Iron TIBC Ferritin Alkaline Phosphatase NT-Pro-B Natriuret Pep Total Protein Albumin Lipase Free T4 11/19/18 11/19/18 11/19/18 08:35 08:35 11:31 WBC 22.3 H RBC 2.80 L Hgb 8.9 L Hct 26.7 L MCV MCH MCHC RDW 16.5 H Plt Count Lymph % (Auto) [place] % (Auto) Lymph # [place] # Seg Neutrophils % Seg Neuts % (Manual) Lymphocytes % (Manual) Seg Neutrophils # Seg Neutrophils # Man Lymphocytes # (Manual) POC ABG pH POC ABG pCO2 POC ABG pO2 Sodium 147 H Potassium Chloride 107.2 H Carbon Dioxide BUN 35 H Creatinine 0.3 L Glucose 117 H POC Glucose 161 H Calcium 7.9 L Phosphorus Magnesium Iron TIBC Ferritin Alkaline Phosphatase NT-Pro-B Natriuret Pep Total Protein Albumin Lipase Free T4 11/19/18 11/20/18 11/20/18 23:43 04:19 04:19 WBC 13.7 H RBC 2.50 L Hgb 8.0 L Hct 24.2 L MCV MCH MCHC RDW 16.9 H Plt Count Lymph % (Auto) [place] % (Auto) Lymph # [place] # Seg Neutrophils % Seg Neuts % (Manual) Lymphocytes % (Manual) Seg Neutrophils # Seg Neutrophils # Man Lymphocytes # (Manual) POC ABG pH POC ABG pCO2 POC ABG pO2 Sodium Potassium Chloride Carbon Dioxide BUN 35 H Creatinine 0.3 L Glucose 178 H POC Glucose 243 H Calcium 7.9 L Phosphorus Magnesium Iron TIBC Ferritin Alkaline Phosphatase NT-Pro-B Natriuret Pep Total Protein Albumin Lipase Free T4 11/20/18 11/21/18 11/21/18 05:38 05:37 05:49 WBC 16.1 H RBC 2.76 L Hgb 8.9 L Hct 26.8 L MCV MCH MCHC RDW 16.8 H Plt Count Lymph % (Auto) [place] % (Auto) Lymph # [place] # Seg Neutrophils % Seg Neuts % (Manual) Lymphocytes % (Manual) Seg Neutrophils # Seg Neutrophils # Man Lymphocytes # (Manual) POC ABG pH POC ABG pCO2 POC ABG pO2 Sodium Potassium Chloride Carbon Dioxide BUN Creatinine Glucose POC Glucose 202 H 162 H Calcium Phosphorus Magnesium Iron TIBC Ferritin Alkaline Phosphatase NT-Pro-B Natriuret Pep Total Protein Albumin Lipase Free T4 11/21/18 11/21/18 11/21/18 05:49 12:12 22:26 WBC RBC Hgb Hct MCV MCH MCHC RDW Plt Count Lymph % (Auto) [place] % (Auto) Lymph # [place] # Seg Neutrophils % Seg Neuts % (Manual) Lymphocytes % (Manual) Seg Neutrophils # Seg Neutrophils # Man Lymphocytes # (Manual) POC ABG pH POC ABG pCO2 POC ABG pO2 Sodium 148 H Potassium Chloride 108.1 H Carbon Dioxide BUN 33 H Creatinine 0.3 L Glucose 133 H POC Glucose 112 H 184 H Calcium 8.1 L Phosphorus Magnesium Iron TIBC Ferritin Alkaline Phosphatase NT-Pro-B Natriuret Pep Total Protein Albumin Lipase Free T4 11/21/18 11/22/18 11/22/18 23:44 05:35 06:10 WBC 16.7 H RBC 2.69 L Hgb 8.6 L Hct 26.0 L MCV MCH MCHC RDW 16.3 H Plt Count Lymph % (Auto) [place] % (Auto) Lymph # [place] # Seg Neutrophils % Seg Neuts % (Manual) Lymphocytes % (Manual) Seg Neutrophils # Seg Neutrophils # Man Lymphocytes # (Manual) POC ABG pH POC ABG pCO2 POC ABG pO2 Sodium Potassium Chloride Carbon Dioxide BUN Creatinine Glucose POC Glucose 177 H 183 H Calcium Phosphorus Magnesium Iron TIBC Ferritin Alkaline Phosphatase NT-Pro-B Natriuret Pep Total Protein Albumin Lipase Free T4 11/22/18 11/22/18 11/22/18 06:10 13:38 17:34 WBC RBC Hgb Hct MCV MCH MCHC RDW Plt Count Lymph % (Auto) [place] % (Auto) Lymph # [place] # Seg Neutrophils % Seg Neuts % (Manual) Lymphocytes % (Manual) Seg Neutrophils # Seg Neutrophils # Man Lymphocytes # (Manual) POC ABG pH POC ABG pCO2 POC ABG pO2 Sodium Potassium Chloride Carbon Dioxide BUN 29 H Creatinine 0.3 L Glucose 147 H POC Glucose 124 H 185 H Calcium 7.4 L Phosphorus Magnesium Iron TIBC Ferritin Alkaline Phosphatase NT-Pro-B Natriuret Pep Total Protein Albumin Lipase Free T4 11/22/18 11/23/18 11/23/18 23:39 05:30 05:30 WBC 20.0 H RBC 2.86 L Hgb 9.3 L Hct 27.6 L MCV MCH 33 H MCHC RDW 16.9 H Plt Count Lymph % (Auto) [place] % (Auto) Lymph # [place] # Seg Neutrophils % Seg Neuts % (Manual) Lymphocytes % (Manual) Seg Neutrophils # Seg Neutrophils # Man Lymphocytes # (Manual) POC ABG pH POC ABG pCO2 POC ABG pO2 Sodium Potassium Chloride Carbon Dioxide BUN 26 H Creatinine 0.3 L Glucose 163 H POC Glucose 166 H Calcium 7.4 L Phosphorus Magnesium Iron TIBC Ferritin Alkaline Phosphatase NT-Pro-B Natriuret Pep Total Protein Albumin Lipase Free T4 Allied health notes reviewed: nursing
[2018-11-23] MEDS: LOVENOX SUB-Q SCH (21:40)
[2018-11-23] MEDS: ATIVAN IV PRN (22:33)
[2018-11-24] MEDS: NEURONTIN PO SCH ×3 (06:34→21:12)
[2018-11-24] MEDS: HumaLOG SUB-Q SCH ×3 (06:35→17:54)
[2018-11-24 07:24] LABS: Hematocrit 28.3 % (30.3-42.9); Hemoglobin 9.5 gm/dl (10.1-14.3); Mean Corpuscular HGB Conc 33 % (30-34); Mean Corpuscular Volume 97 fl (79-97); Platelet Count 211 K/mm3 (140-440); Red Blood Count 2.92 M/mm3 (3.65-5.03); Red Cell Distribution Width 17.8 % (13.2-15.2)
[2018-11-24 07:26] LABS: BUN/Creatinine Ratio 83; Blood Urea Nitrogen 25 mg/dL (7-17); Calcium 7.5 mg/dL (8.4-10.2); Hemolysis Index 1
[2018-11-24] MEDS: INDERAL PO SCH ×3 (08:00→20:51)
--- NOTE | 2018-11-24 08:13 | Hem/Onc Progress Note ---
Assessment and Plan 1. h/o Thrombocytopenia, likely medication, pts medical status related. better 2. History of colon surgery in the past, details not clear. 3. History of bowel issues. Seen by surgical team. - pSBO and "contained" gastric perforation 4. h/o TPN. 5. h/o Ayla, ID following. 6. Chronic obstructive pulmonary disease. 7. Hypertension. 8. History of lupus. 9. Aspiration pneumonia. 10. The patient was intubated. 11. Renal impairment. 11/24 pt on vent - trach - pulm following anemia - h/o b12 inj at home - monthly - s/p same s/p IV iron d/w - Patient Problems (1) Thrombocytopenia Current Visit: Yes Status: Acute Subjective Date of service: 11/24/18 Principal diagnosis: anemia - h/o low plt Interval history: still on vent - via trach Objective - Exam Narrative Exam: Pain none General appearance no acute distress Performance status - completely disabled Eyes EOM intact ENT hearing intact/ Clear oral mucosa/ others LNs cervical not palpable Neck - trache+ Respiratory Normal Breath sounds - diminished b/l CVS S1 S2 + Extremities normal temperature General GI Soft non tender Rectal deferred Female - deferred Skin warm Musculoskeletal generalized weakness Neurologically moves all extremities - Constitutional Vitals: Last Vital Signs Temp 98.2 F 11/24/18 04:00 Pulse 85 11/24/18 06:30 Resp 19 11/24/18 06:30 BP 133/53 11/24/18 06:30 Pulse Ox 95 11/24/18 06:30 - Labs Lab Results: Laboratory Results - last 24 hr 11/23/18 11/23/18 11/23/18 11:21 12:34 19:37 WBC RBC Hgb Hct MCV MCH MCHC RDW Plt Count BUN Creatinine Estimated GFR BUN/Creatinine Ratio POC Glucose 140 H 154 H 202 H Calcium 11/23/18 11/24/18 11/24/18 23:25 06:32 06:45 WBC 22.7 H RBC 2.92 L Hgb 9.5 L Hct 28.3 L MCV 97 MCH 32 MCHC 33 RDW 17.8 H Plt Count 211 BUN Creatinine Estimated GFR BUN/Creatinine Ratio POC Glucose 162 H 121 H Calcium 11/24/18 06:45 WBC RBC Hgb Hct MCV MCH MCHC RDW Plt Count BUN 25 H Creatinine 0.3 L Estimated GFR > 60 BUN/Creatinine Ratio 83 POC Glucose Calcium 7.5 L Medications & Allergies - Medications Allergies/Adverse Reactions: Allergies Sulfa (Sulfonamide Antibiotics) Allergy (Intermediate, Verified 10/22/18 16:30) Rash metoclopramide HCl [From Reglan] Allergy (Verified 10/22/18 16:30) Dizziness prochlorperazine [From Compazine] Allergy (Verified 10/22/18 16:30) NECK STIFFNESS Home Medications: Home Medications Medication Instructions Recorded Confirmed Last Taken Type Ondansetron 4 mg PO Q6HR PRN 12/05/16 10/22/18 10/29/17 History Propranolol HCl [Propranolol HCl 60 mg PO DAILY 12/05/16 10/22/18 10/30/17 22:00 History ER] QUEtiapine [SEROquel] 300 mg PO DAILY 12/05/16 10/22/18 10/30/17 History Lasix TAB 40 mg PO PRN PRN 12/07/16 10/22/18 10/24/17 History Percocet 10/325 mg 1 tab PO PRN PRN 12/07/16 10/22/18 10/30/17 History Albuterol Sulfate [Albuterol 0.63% 0.63 mg IH TID PRN 10/22/17 10/22/18 10/29/17 History NEBS] Active Medications: Generic Name Dose Route Start Last Admin Trade Name Freq PRN Reason Stop Dose Admin Acetaminophen 650 mg 10/22/18 20:10 11/22/18 09:34 Tylenol PO 650 mg Q4H PRN Administration Pain MILD(1-3)/Fever >100.5/PORTER Lipase/Protease/Amylase 1 each 11/05/18 10:[address] 10,500 Unit FEEDTUBE PRN PRN For Clogged Feeding Tube Arformoterol Tartrate 15 mcg 11/05/18 20:00 11/23/18 20:00 Brovana Nebu IH 15 mcg Q12HRT RICK Administration Budesonide 0.5 mg 10/23/18 08:00 11/23/18 20:00 Pulmicort IH 0.5 mg Q12HRT RICK Administration Clonazepam 1 mg 11/18/18 11:00 11/23/18 20:00 Klonopin PO 1 mg TID RICK Administration Dextrose 50 ml 10/26/18 23:40 10/27/18 00:20 D50w (25gm) Syringe IV 50 ml PRN PRN Administration Hypoglycemia Enoxaparin Sodium 40 mg 11/14/18 22:00 11/23/18 21:40 Lovenox SUB-Q 40 mg QDAY@2200 RICK Administration Fentanyl 50 mcg 11/18/18 11:00 11/21/18 11:52 Duragesic TD 50 mcg Q3D RICK Administration Gabapentin 600 mg 11/12/18 10:00 11/24/18 06:34 Neurontin PO 600 mg Q8HR RIKC Administration Hydromorphone HCl 1 mg 11/12/18 09:55 11/23/18 03:44 Dilaudid IV 1 mg Q4H PRN Administration Pain , Severe (7-10) Hydrophilic Ointment 1 applic 11/07/18 09:14 Vaseline Lip Therapy TP Q2HR PRN Dry Lips Insulin Human Isoph/Insulin Regular 12 unit 11/10/18 22:00 11/23/18 21:50 Humulin 70/30 SUB-Q 12 unit BID RICK Administration Insulin Human Lispro 0 unit 10/29/18 12:00 11/24/18 06:35 Humalog SUB-Q Not Given Q6HR [facility] Protocol Lansoprazole 30 mg 11/17/18 10:00 11/23/18 09:18 Prevacid Solutab FEEDTUBE 30 mg QDAY RICK Administration Lorazepam 0.5 mg 11/18/18 11:00 11/23/18 22:33 Ativan IV 0.5 mg Q6H PRN Administration Anxiety Methylprednisolone Sodium Succinate 20 mg 11/20/18 22:00 11/23/18 21:41 Solu-Medrol IV 20 mg Q12HR RICK Administration Multi-Ingred Cream/Lotion/Oil/Oint 1 applic 11/07/18 09:14 Artificial Tears Ophth Oint OU Q4HR PRN Dry Eye(s) Ondansetron HCl 4 mg 10/24/18 10:05 11/23/18 22:33 Zofran IV 4 mg Q6H PRN Administration Nausea And Vomiting Phenol 1 spray 10/28/18 10:16 Chloraseptic MM PRN PRN Sore Throat Propranolol HCl 20 mg 11/18/18 14:00 11/23/18 14:43 Inderal PO 20 mg TID RICK Administration Quetiapine Fumarate 300 mg 11/12/18 10:00 11/23/18 09:17 Seroquel PO 300 mg DAILY RICK Administration Simple Syrup 15 ml 11/05/18 10:13 Simple Syrup FEEDTUBE PRN PRN Hypoglycemia Simple Syrup 30 ml 11/05/18 10:13 Simple Syrup FEEDTUBE PRN PRN Hypoglycemia Sodium Bicarbonate 325 mg 11/05/18 10:13 Sodium Bicarbonate FEEDTUBE PRN PRN For Clogged Feeding Tube Sodium Chloride 10 ml 10/22/18 22:00 11/23/18 23:30 Sodium Chloride Flush Syringe 10 Ml IV 10 ml BID RICK Administration
[2018-11-24] MEDS: PULMICORT IH SCH ×2 (08:32→19:18)
[2018-11-24] MEDS: BROVANA NEBU IH SCH ×2 (08:32→19:18)
--- NOTE | 2018-11-24 09:05 | Progress Note ---
Assessment and Plan Cultures: Blood cultures 10/22/2018 no growth Tracheal asp cultures 10/28/2018: E.coli and Stenotrophomonas. 10/30/2018 blood culture: Ayla glabrata 11/03/2018 fungal blood culture: no growth thus far 11/18/2018 Sputum E coli Assessment: 73 y/o female with history of COPD, hypertension, lupus, fibromyalgia, opioid dependence admitted on 10/22/2018 due to 3-day history of intractable nausea, vom iting, diarrhea: 1) SIRS v/s sepsis: fever resolved. Noted leukocytosis 18-->22-->13-->16K on iv steroids. ? pneumonia however repeat CXR no consolidation. ? C diff colitis. Henna ology initially most likely aspiration pneumonia +/- intra-abdominal source from contained gastric perforation, then with Candidemia. 2) Candidemia due to Ayla glabrata: in the setting of TPN and PICC line. PICC removed. Has temporary central line. TTE not optimal quality, but repeat fungal blood cultures are negative, so no need for LAUREN. S/p micafungin/fluconazole 14 days course. 3) Acute respiratory failure: pneumonia and fluid overload. Extubated 11/05/2018 and now reintubated 11/07/2018. Planned for trach. 4) Presumed aspiration pneumonia v/s HAP: Tracheal asp cultures 10/28/2018 with E.coli and Stenotrophomonas. Stenotrophomonas is a known colonizer in patients with structural lung disease or tracheostomy tubes/ET tubes, not generally considered very virulent. Given her prolonged and complicated hospital stay, completed a 10 day course of abx. Repeat sputum cx + E coli (colinizer) but repeat CXR negative. 5) Contained gastric perforation: Gen Surgery following. Planned for cons ervative management. Follow up CT showed no contrast leak. Now on tube feeds. 6) ADWOA: improved. 7) Diarrhea: ? tfeeds not better Recommendations: - monitor diarrhea - monitor off antibiotics I am signing off, call us with questions Ame Garcia MD Infectious Diseases [facility] ([facility] M [phone] O [phone] Subjective Date of service: 11/24/18 Principal diagnosis: anemia Interval history: Remains on vent via trach, sleepy today, no fever. +diarrhea ROS unable to obtain Objective - Exam Narrative Exam: General appearance: sleepy in NAD Eyes: anicteric sclerae, moist conjunctivae; no lid-lag; PERRLA HENT: Atraumatic; oropharynx limited Neck: Trach no secretion Lungs: distant BS CV: tachycardic Abdomen: Soft, non-tender Extremities: no edema, cyanosis Skin: Normal temperature, turgor and texture; no rash, ulcers or subcutaneous nodules Psych: no agitated Neuro:alert Rectal tube w diarrhea - Constitutional Vitals: Vital Signs Temp Pulse Resp BP Pulse Ox 98.4 F 85 17 131/53 97 11/24/18 08:00 11/24/18 08:32 11/24/18 08:32 11/24/18 08:00 11/24/18 08:00 Temperature -Last 24 Hours Temperature 98.4 F Temperature 98.2 F Temperature 98.4 F Temperature 98.7 F Temperature 99 F - Labs CBC & Chem 7: 11/24/18 06:45 11/24/18 06:45 Labs: Abnormal lab results 11/23/18 11/23/18 11/23/18 Range/Units 11:21 12:34 19:37 WBC (4.5-11.0) K/mm3 RBC (3.65-5.03) M/mm3 Hgb (10.1-14.3) gm/dl Hct (30.3-42.9) % RDW (13.2-15.2) % BUN (7-17) mg/dL Creatinine (0.7-1.2) mg/dL Glucose (65-100) mg/dL POC Glucose 140 H 154 H 202 H (70-105) Calcium (8.4-10.2) mg/dL 11/23/18 11/24/18 11/24/18 Range/Units 23:25 06:32 06:45 WBC 22.7 H (4.5-11.0) K/mm3 RBC 2.92 L (3.65-5.03) M/mm3 Hgb 9.5 L (10.1-14.3) gm/dl Hct 28.3 L (30.3-42.9) % RDW 17.8 H (13.2-15.2) % BUN (7-17) mg/dL Creatinine (0.7-1.2) mg/dL Glucose (65-100) mg/dL POC Glucose 162 H 121 H (70-105) Calcium (8.4-10.2) mg/dL 11/24/18 Range/Units 06:45 WBC (4.5-11.0) K/mm3 RBC (3.65-5.03) M/mm3 Hgb (10.1-14.3) gm/dl Hct (30.3-42.9) % RDW (13.2-15.2) % BUN 25 H (7-17) mg/dL Creatinine 0.3 L (0.7-1.2) mg/dL Glucose 116 H (65-100) mg/dL POC Glucose (70-105) Calcium 7.5 L (8.4-10.2) mg/dL
--- NOTE | 2018-11-24 09:05 | Progress Note ---
Assessment and Plan ARF ,failure to wean ,prolonged vent support. Complicated also by anxiety, pain medications/sedatives. Follow sleep, stable breathing when pressure support turned off Sepsis/Fungemia. Antibiotics per ID Bilateral upper lobe pneumonia, atelectasis Bilateral pleural effusions with left lower lung atelectasis. Improved on last x-ray only slight left lower lobe changes noted Partial bowel obstruction, perforation. Improved, result Diarrhea. Improved Compensated respiratory acidosis improved Chronic pain medications, anti-psychotic therapy. Chart review shows increased demand for both short acting, long-acting narcotics plus benzodiazepines. Probably, drug-seeking behavior at this point. Staff reported that "patient being asleep all the weekend". Thrombocytopenia. Improved PAT, tachy-bradycardia episodes. Controlled COPD. controlled Chronic pain/Narcotic dependent Hypokalemia Rec Discontinue fentanyl and Dilaudid SBT. Move him to oral oxycodone when necessary for pain breakthrough symptoms May need to decrease Klonopin SBT this morning continues tolerated. Once off long-acting sedatives, plan is to maintain on TPs indefinitely We'll add end-tidal CO2 for additional later on hypercapnia, alarm apnea monitoring while on TPs Nutritional support PM&R, Physical therapy Discussed with patient and staff in detail. All questions answered. Critical care time was 31 minutes of [id number] evaluation and coordination of care Subjective Date of service: 11/24/18 Principal diagnosis: anemia Interval history: No events overnight. Found asleep, breathing comfortably on pressure support 10/6 centimeters H2O. Reportedly in BiPAP overnight Objective Vital Signs - 12hr 11/23/18 11/23/18 11/23/18 21:30 22:00 22:30 Temperature Pulse Rate 94 H 97 H 84 Pulse Rate [ Anterior Bilateral Throughout] Pulse Rate [ From Monitor] Respiratory 20 22 23 Rate Respiratory Rate [Anterior Bilateral Throughout] Blood Pressure 120/55 115/52 117/33 O2 Sat by Pulse 98 84 97 Oximetry O2 Sat by Pulse Oximetry [ Assessment] 11/23/18 11/23/18 11/23/18 22:51 23:00 23:30 Temperature Pulse Rate 84 81 79 Pulse Rate [ Anterior Bilateral Throughout] Pulse Rate [ From Monitor] Respiratory 22 19 Rate Respiratory Rate [Anterior Bilateral Throughout] Blood Pressure 118/54 118/39 124/38 O2 Sat by Pulse 97 99 99 Oximetry O2 Sat by Pulse Oximetry [ Assessment] 11/23/18 11/23/18 11/23/18 23:31 23:43 23:45 Temperature 98.4 F Pulse Rate 81 78 Pulse Rate [ Anterior Bilateral Throughout] Pulse Rate [ 82 From Monitor] Respiratory 21 20 Rate Respiratory Rate [Anterior Bilateral Throughout] Blood Pressure 124/38 O2 Sat by Pulse 99 99 Oximetry O2 Sat by Pulse Oximetry [ Assessment] 11/24/18 11/24/18 11/24/18 00:00 00:16 00:20 Temperature Pulse Rate 82 83 Pulse Rate [ Anterior Bilateral Throughout] Pulse Rate [ From Monitor] Respiratory 19 17 Rate Respiratory Rate [Anterior Bilateral Throughout] Blood Pressure 124/38 112/35 O2 Sat by Pulse 99 100 Oximetry O2 Sat by Pulse 100 Oximetry [ Assessment] 11/24/18 11/24/18 11/24/18 00:30 01:00 01:30 Temperature Pulse Rate 82 83 85 Pulse Rate [ Anterior Bilateral Throughout] Pulse Rate [ From Monitor] Respiratory 18 18 18 Rate Respiratory Rate [Anterior Bilateral Throughout] Blood Pressure 113/36 112/35 108/45 O2 Sat by Pulse 99 99 99 Oximetry O2 Sat by Pulse Oximetry [ Assessment] 11/24/18 11/24/18 11/24/18 02:00 02:30 03:00 Temperature Pulse Rate 85 85 87 Pulse Rate [ Anterior Bilateral Throughout] Pulse Rate [ From Monitor] Respiratory 19 19 18 Rate Respiratory Rate [Anterior Bilateral Throughout] Blood Pressure 114/42 116/40 116/40 O2 Sat by Pulse 99 99 99 Oximetry O2 Sat by Pulse Oximetry [ Assessment] 11/24/18 11/24/18 11/24/18 03:30 04:00 04:16 Temperature 98.2 F Pulse Rate 86 83 82 Pulse Rate [ Anterior Bilateral Throughout] Pulse Rate [ 78 From Monitor] Respiratory 18 17 23 Rate Respiratory Rate [Anterior Bilateral Throughout] Blood Pressure 132/58 115/47 117/54 O2 Sat by Pulse 95 95 100 Oximetry O2 Sat by Pulse Oximetry [ Assessment] 11/24/18 11/24/18 11/24/18 04:30 05:00 05:30 Temperature Pulse Rate 83 84 81 Pulse Rate [ Anterior Bilateral Throughout] Pulse Rate [ From Monitor] Respiratory 17 19 17 Rate Respiratory Rate [Anterior Bilateral Throughout] Blood Pressure 117/54 130/55 123/51 O2 Sat by Pulse 95 96 97 Oximetry O2 Sat by Pulse Oximetry [ Assessment] 11/24/18 11/24/18 11/24/18 06:00 06:30 08:00 Temperature 98.4 F Pulse Rate 85 85 85 Pulse Rate [ Anterior Bilateral Throughout] Pulse Rate [ From Monitor] Respiratory 18 19 17 Rate Respiratory Rate [Anterior Bilateral Throughout] Blood Pressure 131/53 133/53 131/53 O2 Sat by Pulse 98 95 97 Oximetry O2 Sat by Pulse Oximetry [ Assessment] 11/24/18 08:32 Temperature Pulse Rate Pulse Rate [ 85 Anterior Bilateral Throughout] Pulse Rate [ From Monitor] Respiratory Rate Respiratory 17 Rate [Anterior Bilateral Throughout] Blood Pressure O2 Sat by Pulse Oximetry O2 Sat by Pulse Oximetry [ Assessment] Constitutional: asleep (after narcotics) Eyes: non-icteric ENT: other (trach in position) Neck: supple, no JVD Effort: mildly labored Ascultation: Bilateral: clear, diminished breath sounds Percussion: Bilateral: not dull Cardiovascular: regular rate and rhythm Gastrointestinal: hypoactive bowel sounds, non-tender, non-distended, other (surgical wounds clean, no bleeding) Integumentary: normal Extremities: no edema Neurologic: non-focal exam, other (deeply somnolent) CBC and BMP: 11/24/18 06:45 11/24/18 06:45 ABG, PT/INR, D-dimer: ABG POC ABG pH 7.446 (7.35-7.45) 11/15/18 11:33 POC ABG pCO2 46.1 (35-45) H 11/15/18 11:33 POC ABG pO2 107 (80-105) H 11/15/18 11:33 POC ABG HCO3 31.8 (22-26 mml/L) 11/15/18 11:33 POC ABG Total CO2 33 (23-27mmol/L) 11/15/18 11:33 POC ABG O2 Sat 98 11/15/18 11:33 Abnormal lab findings: Abnormal Labs 10/22/18 10/22/18 10/22/18 15:31 15:54 15:54 WBC 11.5 H RBC 5.35 H Hgb 17.4 H Hct 50.3 H MCV MCH 33 H MCHC 35 H RDW Plt Count Lymph % (Auto) 12.6 L [place] % (Auto) 14.8 H Lymph # [place] # 1.7 H Seg Neutrophils % 72.5 H Seg Neuts % (Manual) Lymphocytes % (Manual) Seg Neutrophils # 8.3 H Seg Neutrophils # Man Lymphocytes # (Manual) POC ABG pH POC ABG pCO2 POC ABG pO2 Sodium 134 L Potassium Chloride 88.1 L Carbon Dioxide BUN 51 H Creatinine 2.1 H Glucose 166 H POC Glucose Calcium Phosphorus Magnesium Iron TIBC Ferritin Alkaline Phosphatase NT-Pro-B Natriuret Pep Total Protein Albumin 3.4 L Lipase 10 L Free T4 10/23/18 10/23/18 10/23/18 04:32 04:32 10:53 WBC RBC Hgb Hct MCV MCH MCHC RDW Plt Count Lymph % (Auto) 10.2 L [place] % (Auto) 14.7 H Lymph # 0.7 L [place] # 1.0 H Seg Neutrophils % 74.9 H Seg Neuts % (Manual) Lymphocytes % (Manual) Seg Neutrophils # Seg Neutrophils # Man Lymphocytes # (Manual) POC ABG pH POC ABG pCO2 POC ABG pO2 Sodium Potassium 3.1 L D 3.5 L Chloride Carbon Dioxide BUN 41 H 37 H Creatinine Glucose 111 H 110 H POC Glucose Calcium 8.1 L 8.1 L Phosphorus Magnesium Iron TIBC Ferritin Alkaline Phosphatase NT-Pro-B Natriuret Pep Total Protein Albumin Lipase Free T4 10/24/18 10/24/18 10/25/18 05:34 05:34 04:51 WBC RBC Hgb Hct MCV MCH MCHC RDW Plt Count Lymph % (Auto) [place] % (Auto) Lymph # [place] # Seg Neutrophils % Seg Neuts % (Manual) Lymphocytes % (Manual) Seg Neutrophils # Seg Neutrophils # Man Lymphocytes # (Manual) POC ABG pH POC ABG pCO2 POC ABG pO2 Sodium Potassium 3.2 L 3.1 L Chloride 109.8 H 114.2 H Carbon Dioxide 17 L D BUN 21 H Creatinine Glucose 134 H 171 H POC Glucose Calcium 7.7 L 7.0 L Phosphorus 0.80 L* Magnesium Iron TIBC Ferritin Alkaline Phosphatase NT-Pro-B Natriuret Pep Total Protein Albumin Lipase Free T4 10/25/18 10/26/18 10/26/18 06:07 02:58 04:57 WBC RBC Hgb Hct MCV 99 H MCH 33 H MCHC RDW Plt Count Lymph % (Auto) [place] % (Auto) Lymph # [place] # Seg Neutrophils % Seg Neuts % (Manual) Lymphocytes % (Manual) Seg Neutrophils # Seg Neutrophils # Man Lymphocytes # (Manual) POC ABG pH 7.090 L 7.320 L POC ABG pCO2 65.0 H 32.8 L POC ABG pO2 76 L Sodium Potassium Chloride Carbon Dioxide BUN Creatinine Glucose POC Glucose Calcium Phosphorus Magnesium Iron TIBC Ferritin Alkaline Phosphatase NT-Pro-B Natriuret Pep Total Protein Albumin Lipase Free T4 10/26/18 10/26/18 10/26/18 06:03 06:03 11:52 WBC 23.8 H RBC Hgb 15.4 H Hct 46.1 H D MCV MCH MCHC RDW Plt Count Lymph % (Auto) [place] % (Auto) Lymph # [place] # Seg Neutrophils % Seg Neuts % (Manual) Lymphocytes % (Manual) Seg Neutrophils # Seg Neutrophils # Man Lymphocytes # (Manual) POC ABG pH POC ABG pCO2 POC ABG pO2 Sodium Potassium Chloride 109.5 H Carbon Dioxide 18 L BUN Creatinine Glucose 128 H POC Glucose 117 H Calcium 8.3 L D Phosphorus Magnesium Iron TIBC Ferritin Alkaline Phosphatase NT-Pro-B Natriuret Pep Total Protein Albumin Lipase Free T4 10/26/18 10/26/18 10/26/18 13:54 17:10 17:32 WBC RBC Hgb Hct MCV MCH MCHC RDW Plt Count Lymph % (Auto) [place] % (Auto) Lymph # [place] # Seg Neutrophils % Seg Neuts % (Manual) Lymphocytes % (Manual) Seg Neutrophils # Seg Neutrophils # Man Lymphocytes # (Manual) POC ABG pH 7.215 L POC ABG pCO2 31.8 L POC ABG pO2 69 L 204 H Sodium Potassium 3.0 L D Chloride 114.5 H Carbon Dioxide 21 L BUN Creatinine Glucose POC Glucose Calcium 7.6 L Phosphorus Magnesium 1.40 L Iron TIBC Ferritin Alkaline Phosphatase NT-Pro-B Natriuret Pep Total Protein Albumin Lipase Free T4 10/26/18 10/27/18 10/27/18 23:13 00:40 01:09 WBC RBC Hgb Hct MCV MCH MCHC RDW Plt Count Lymph % (Auto) [place] % (Auto) Lymph # [place] # Seg Neutrophils % Seg Neuts % (Manual) Lymphocytes % (Manual) Seg Neutrophils # Seg Neutrophils # Man Lymphocytes # (Manual) POC ABG pH POC ABG pCO2 POC ABG pO2 Sodium Potassium 3.4 L Chloride 115.0 H Carbon Dioxide 14 L D BUN Creatinine Glucose 228 H POC Glucose 48 L 264 H Calcium 7.1 L Phosphorus Magnesium Iron TIBC Ferritin Alkaline Phosphatase NT-Pro-B Natriuret Pep Total Protein Albumin Lipase Free T4 10/27/18 10/27/18 10/27/18 05:00 05:00 05:16 WBC 22.5 H RBC Hgb 14.7 H Hct 44.4 H MCV MCH MCHC RDW Plt Count Lymph % (Auto) [place] % (Auto) Lymph # [place] # Seg Neutrophils % Seg Neuts % (Manual) Lymphocytes % (Manual) Seg Neutrophils # Seg Neutrophils # Man Lymphocytes # (Manual) POC ABG pH 7.304 L POC ABG pCO2 POC ABG pO2 116 H Sodium Potassium Chloride 118.4 H Carbon Dioxide 16 L BUN Creatinine Glucose 123 H POC Glucose Calcium 7.7 L Phosphorus Magnesium 2.60 H Iron TIBC Ferritin Alkaline Phosphatase NT-Pro-B Natriuret Pep Total Protein Albumin Lipase Free T4 10/28/18 10/28/18 10/28/18 04:25 04:25 15:37 WBC 23.5 H RBC Hgb Hct MCV MCH MCHC RDW Plt Count Lymph % (Auto) [place] % (Auto) Lymph # [place] # Seg Neutrophils % Seg Neuts % (Manual) Lymphocytes % (Manual) Seg Neutrophils # Seg Neutrophils # Man Lymphocytes # (Manual) POC ABG pH POC ABG pCO2 POC ABG pO2 Sodium 147 H Potassium Chloride 116.9 H Carbon Dioxide 16 L BUN 23 H Creatinine Glucose POC Glucose 114 H Calcium 8.0 L Phosphorus Magnesium Iron TIBC Ferritin Alkaline Phosphatase NT-Pro-B Natriuret Pep Total Protein Albumin Lipase Free T4 10/28/18 10/28/18 10/28/18 20:33 22:07 23:31 WBC RBC Hgb Hct MCV MCH MCHC RDW Plt Count Lymph % (Auto) [place] % (Auto) Lymph # [place] # Seg Neutrophils % Seg Neuts % (Manual) Lymphocytes % (Manual) Seg Neutrophils # Seg Neutrophils # Man Lymphocytes # (Manual) POC ABG pH 7.202 L 7.235 L POC ABG pCO2 POC ABG pO2 71 L Sodium Potassium Chloride Carbon Dioxide BUN Creatinine Glucose POC Glucose 207 H Calcium Phosphorus Magnesium Iron TIBC Ferritin Alkaline Phosphatase NT-Pro-B Natriuret Pep Total Protein Albumin Lipase Free T4 10/29/18 10/29/18 10/29/18 04:30 04:30 05:26 WBC 21.1 H RBC Hgb Hct MCV MCH MCHC RDW Plt Count Lymph % (Auto) [place] % (Auto) Lymph # [place] # Seg Neutrophils % Seg Neuts % (Manual) 97.0 H Lymphocytes % (Manual) 3.0 L Seg Neutrophils # Seg Neutrophils # Man 20.5 H Lymphocytes # (Manual) 0.6 L POC ABG pH 7.305 L POC ABG pCO2 30.5 L POC ABG pO2 75 L Sodium 147 H Potassium 3.5 L Chloride 120.0 H Carbon Dioxide 17 L BUN 30 H Creatinine Glucose 246 H POC Glucose Calcium 7.9 L Phosphorus Magnesium Iron TIBC Ferritin Alkaline Phosphatase NT-Pro-B Natriuret Pep Total Protein Albumin Lipase Free T4 10/29/18 10/29/18 10/29/18 05:36 11:39 18:00 WBC RBC Hgb Hct MCV MCH MCHC RDW Plt Count Lymph % (Auto) [place] % (Auto) Lymph # [place] # Seg Neutrophils % Seg Neuts % (Manual) Lymphocytes % (Manual) Seg Neutrophils # Seg Neutrophils # Man Lymphocytes # (Manual) POC ABG pH POC ABG pCO2 POC ABG pO2 Sodium Potassium Chloride Carbon Dioxide BUN Creatinine Glucose POC Glucose 204 H 224 H 221 H Calcium Phosphorus Magnesium Iron TIBC Ferritin Alkaline Phosphatase NT-Pro-B Natriuret Pep Total Protein Albumin Lipase Free T4 10/29/18 10/30/18 10/30/18 23:17 05:00 05:00 WBC 21.4 H RBC Hgb Hct MCV MCH MCHC RDW Plt Count 134 L Lymph % (Auto) [place] % (Auto) Lymph # [place] # Seg Neutrophils % Seg Neuts % (Manual) 97.0 H Lymphocytes % (Manual) 3.0 L Seg Neutrophils # Seg Neutrophils # Man 20.8 H Lymphocytes # (Manual) 0.6 L POC ABG pH POC ABG pCO2 POC ABG pO2 Sodium 148 H Potassium 3.1 L Chloride 120.3 H Carbon Dioxide 18 L BUN 31 H Creatinine Glucose 205 H POC Glucose 181 H Calcium 8.0 L Phosphorus Magnesium Iron TIBC Ferritin Alkaline Phosphatase NT-Pro-B Natriuret Pep Total Protein Albumin Lipase Free T4 10/30/18 10/30/18 10/30/18 05:14 05:25 05:26 WBC RBC Hgb Hct MCV MCH MCHC RDW Plt Count Lymph % (Auto) [place] % (Auto) Lymph # [place] # Seg Neutrophils % Seg Neuts % (Manual) Lymphocytes % (Manual) Seg Neutrophils # Seg Neutrophils # Man Lymphocytes # (Manual) POC ABG pH 7.296 L 7.245 L POC ABG pCO2 31.1 L POC ABG pO2 54 L 59 L Sodium Potassium Chloride Carbon Dioxide BUN Creatinine Glucose POC Glucose 199 H Calcium Phosphorus Magnesium Iron TIBC Ferritin Alkaline Phosphatase NT-Pro-B Natriuret Pep Total Protein Albumin Lipase Free T4 10/30/18 10/30/18 10/31/18 13:23 18:25 00:22 WBC RBC Hgb Hct MCV MCH MCHC RDW Plt Count Lymph % (Auto) [place] % (Auto) Lymph # [place] # Seg Neutrophils % Seg Neuts % (Manual) Lymphocytes % (Manual) Seg Neutrophils # Seg Neutrophils # Man Lymphocytes # (Manual) POC ABG pH POC ABG pCO2 POC ABG pO2 Sodium Potassium Chloride Carbon Dioxide BUN Creatinine Glucose POC Glucose 146 H 158 H 162 H Calcium Phosphorus Magnesium Iron TIBC Ferritin Alkaline Phosphatase NT-Pro-B Natriuret Pep Total Protein Albumin Lipase Free T4 10/31/18 10/31/18 10/31/18 04:39 05:14 07:05 WBC RBC Hgb Hct MCV MCH MCHC RDW Plt Count Lymph % (Auto) [place] % (Auto) Lymph # [place] # Seg Neutrophils % Seg Neuts % (Manual) Lymphocytes % (Manual) Seg Neutrophils # Seg Neutrophils # Man Lymphocytes # (Manual) POC ABG pH 7.238 L POC ABG pCO2 POC ABG pO2 Sodium Potassium Chloride 115.8 H Carbon Dioxide 18 L BUN 39 H Creatinine 1.3 H Glucose 167 H POC Glucose 145 H Calcium 7.5 L Phosphorus 1.80 L Magnesium Iron TIBC Ferritin Alkaline Phosphatase NT-Pro-B Natriuret Pep Total Protein Albumin Lipase Free T4 10/31/18 10/31/18 10/31/18 10:43 12:03 17:00 WBC RBC Hgb Hct MCV MCH MCHC RDW Plt Count Lymph % (Auto) [place] % (Auto) Lymph # [place] # Seg Neutrophils % Seg Neuts % (Manual) Lymphocytes % (Manual) Seg Neutrophils # Seg Neutrophils # Man Lymphocytes # (Manual) POC ABG pH 7.304 L POC ABG pCO2 33.3 L POC ABG pO2 Sodium Potassium Chloride Carbon Dioxide BUN Creatinine Glucose POC Glucose 159 H Calcium Phosphorus Magnesium Iron TIBC Ferritin Alkaline Phosphatase NT-Pro-B Natriuret Pep Total Protein Albumin Lipase Free T4 0.49 L 05/31/19 06/01/19 06/01/19 17:00 00:44 05:27 WBC RBC Hgb Hct MCV MCH MCHC RDW Plt Count Lymph % (Auto) [place] % (Auto) Lymph # [place] # Seg Neutrophils % Seg Neuts % (Manual) Lymphocytes % (Manual) Seg Neutrophils # Seg Neutrophils # Man Lymphocytes # (Manual) POC ABG pH 7.248 L POC ABG pCO2 34.8 L POC ABG pO2 135 H Sodium Potassium Chloride Carbon Dioxide BUN Creatinine Glucose POC Glucose 127 H 118 H Calcium Phosphorus Magnesium Iron TIBC Ferritin Alkaline Phosphatase NT-Pro-B Natriuret Pep Total Protein Albumin Lipase Free T4 11/01/18 11/01/18 11/01/18 06:40 06:40 06:53 WBC 18.9 H RBC 3.63 L Hgb Hct MCV MCH MCHC RDW Plt Count 64 L Lymph % (Auto) [place] % (Auto) Lymph # [place] # Seg Neutrophils % Seg Neuts % (Manual) 98.0 H Lymphocytes % (Manual) 1.0 L Seg Neutrophils # Seg Neutrophils # Man 18.5 H Lymphocytes # (Manual) 0.2 L POC ABG pH POC ABG pCO2 POC ABG pO2 Sodium Potassium 3.5 L Chloride 114.2 H Carbon Dioxide 17 L BUN 49 H Creatinine Glucose 107 H POC Glucose 127 H Calcium 7.3 L Phosphorus Magnesium 1.60 L Iron TIBC Ferritin Alkaline Phosphatase NT-Pro-B Natriuret Pep Total Protein Albumin Lipase Free T4 11/01/18 11/01/18 11/01/18 11:49 13:13 17:24 WBC RBC Hgb Hct MCV MCH MCHC RDW Plt Count Lymph % (Auto) [place] % (Auto) Lymph # [place] # Seg Neutrophils % Seg Neuts % (Manual) Lymphocytes % (Manual) Seg Neutrophils # Seg Neutrophils # Man Lymphocytes # (Manual) POC ABG pH POC ABG pCO2 POC ABG pO2 182 H Sodium Potassium Chloride Carbon Dioxide BUN Creatinine Glucose POC Glucose 134 H 111 H Calcium Phosphorus Magnesium Iron TIBC Ferritin Alkaline Phosphatase NT-Pro-B Natriuret Pep Total Protein Albumin Lipase Free T4 11/01/18 11/02/18 11/02/18 23:07 04:32 05:00 WBC RBC Hgb Hct MCV MCH MCHC RDW Plt Count Lymph % (Auto) [place] % (Auto) Lymph # [place] # Seg Neutrophils % Seg Neuts % (Manual) Lymphocytes % (Manual) Seg Neutrophils # Seg Neutrophils # Man Lymphocytes # (Manual) POC ABG pH 7.244 L POC ABG pCO2 33.2 L POC ABG pO2 123 H Sodium Potassium 3.0 L Chloride 114.1 H Carbon Dioxide 15 L BUN 47 H Creatinine Glucose 127 H POC Glucose 123 H Calcium 7.7 L Phosphorus Magnesium Iron TIBC Ferritin Alkaline Phosphatase NT-Pro-B Natriuret Pep Total Protein Albumin Lipase Free T4 11/02/18 11/02/18 11/02/18 05:00 05:29 11:27 WBC RBC Hgb Hct MCV MCH MCHC RDW Plt Count Lymph % (Auto) [place] % (Auto) Lymph # [place] # Seg Neutrophils % Seg Neuts % (Manual) Lymphocytes % (Manual) Seg Neutrophils # Seg Neutrophils # Man Lymphocytes # (Manual) POC ABG pH POC ABG pCO2 POC ABG pO2 Sodium Potassium Chloride Carbon Dioxide BUN Creatinine Glucose POC Glucose 118 H 137 H Calcium Phosphorus Magnesium 1.60 L Iron TIBC Ferritin Alkaline Phosphatase NT-Pro-B Natriuret Pep Total Protein Albumin Lipase Free T4 11/02/18 11/02/18 11/03/18 12:53 23:35 04:14 WBC RBC Hgb Hct MCV MCH MCHC RDW Plt Count Lymph % (Auto) [place] % (Auto) Lymph # [place] # Seg Neutrophils % Seg Neuts % (Manual) Lymphocytes % (Manual) Seg Neutrophils # Seg Neutrophils # Man Lymphocytes # (Manual) POC ABG pH POC ABG pCO2 30.3 L POC ABG pO2 134 H 129 H Sodium Potassium Chloride Carbon Dioxide BUN Creatinine Glucose POC Glucose 115 H Calcium Phosphorus Magnesium Iron TIBC Ferritin Alkaline Phosphatase NT-Pro-B Natriuret Pep Total Protein Albumin Lipase Free T4 11/03/18 11/03/18 11/03/18 05:34 11:30 11:30 WBC 16.4 H RBC 3.50 L Hgb Hct MCV MCH MCHC RDW Plt Count 136 L D Lymph % (Auto) [place] % (Auto) Lymph # [place] # Seg Neutrophils % Seg Neuts % (Manual) 97.0 H Lymphocytes % (Manual) 2.0 L Seg Neutrophils # Seg Neutrophils # Man 15.9 H Lymphocytes # (Manual) 0.3 L POC ABG pH POC ABG pCO2 POC ABG pO2 Sodium Potassium 3.1 L Chloride 110.4 H Carbon Dioxide 17 L BUN 41 H Creatinine Glucose 129 H POC Glucose 116 H Calcium 7.7 L Phosphorus Magnesium 1.60 L Iron TIBC Ferritin Alkaline Phosphatase NT-Pro-B Natriuret Pep Total Protein 4.2 L Albumin 1.2 L Lipase Free T4 11/03/18 11/03/18 11/03/18 12:01 17:35 21:37 WBC RBC Hgb Hct MCV MCH MCHC RDW Plt Count Lymph % (Auto) [place] % (Auto) Lymph # [place] # Seg Neutrophils % Seg Neuts % (Manual) Lymphocytes % (Manual) Seg Neutrophils # Seg Neutrophils # Man Lymphocytes # (Manual) POC ABG pH POC ABG pCO2 POC ABG pO2 Sodium Potassium Chloride Carbon Dioxide BUN Creatinine Glucose POC Glucose 132 H 132 H 126 H Calcium Phosphorus Magnesium Iron TIBC Ferritin Alkaline Phosphatase NT-Pro-B Natriuret Pep Total Protein Albumin Lipase Free T4 11/03/18 11/04/18 11/04/18 23:30 05:14 05:15 WBC RBC Hgb Hct MCV MCH MCHC RDW Plt Count Lymph % (Auto) [place] % (Auto) Lymph # [place] # Seg Neutrophils % Seg Neuts % (Manual) Lymphocytes % (Manual) Seg Neutrophils # Seg Neutrophils # Man Lymphocytes # (Manual) POC ABG pH POC ABG pCO2 30.9 L POC ABG pO2 192 H Sodium Potassium Chloride Carbon Dioxide BUN Creatinine Glucose POC Glucose 115 H 123 H Calcium Phosphorus Magnesium Iron TIBC Ferritin Alkaline Phosphatase NT-Pro-B Natriuret Pep Total Protein Albumin Lipase Free T4 11/04/18 11/04/18 11/04/18 09:39 09:39 11:43 WBC 15.2 H RBC 3.18 L Hgb Hct 29.9 L MCV MCH MCHC RDW Plt Count Lymph % (Auto) [place] % (Auto) Lymph # [place] # Seg Neutrophils % Seg Neuts % (Manual) 98.0 H Lymphocytes % (Manual) 1.0 L Seg Neutrophils # Seg Neutrophils # Man 14.9 H Lymphocytes # (Manual) 0.2 L POC ABG pH POC ABG pCO2 POC ABG pO2 Sodium 135 L D Potassium Chloride 109.5 H Carbon Dioxide 16 L BUN 46 H Creatinine Glucose 136 H POC Glucose 138 H Calcium 8.0 L Phosphorus Magnesium Iron TIBC Ferritin Alkaline Phosphatase NT-Pro-B Natriuret Pep Total Protein Albumin Lipase Free T4 11/04/18 11/04/18 11/05/18 17:31 23:42 05:23 WBC RBC Hgb Hct MCV MCH MCHC RDW Plt Count Lymph % (Auto) [place] % (Auto) Lymph # [place] # Seg Neutrophils % Seg Neuts % (Manual) Lymphocytes % (Manual) Seg Neutrophils # Seg Neutrophils # Man Lymphocytes # (Manual) POC ABG pH POC ABG pCO2 POC ABG pO2 Sodium Potassium Chloride Carbon Dioxide BUN Creatinine Glucose POC Glucose 139 H 138 H 148 H Calcium Phosphorus Magnesium Iron TIBC Ferritin Alkaline Phosphatase NT-Pro-B Natriuret Pep Total Protein Albumin Lipase Free T4 11/05/18 11/05/18 11/05/18 05:30 05:30 11:46 WBC 14.2 H RBC 3.12 L Hgb 10.0 L Hct 29.1 L MCV MCH MCHC RDW Plt Count Lymph % (Auto) [place] % (Auto) Lymph # [place] # Seg Neutrophils % Seg Neuts % (Manual) Lymphocytes % (Manual) Seg Neutrophils # Seg Neutrophils # Man Lymphocytes # (Manual) POC ABG pH POC ABG pCO2 POC ABG pO2 Sodium Potassium Chloride Carbon Dioxide 21 L BUN 42 H Creatinine Glucose 125 H POC Glucose 157 H Calcium 7.9 L Phosphorus Magnesium Iron TIBC Ferritin Alkaline Phosphatase NT-Pro-B Natriuret Pep Total Protein Albumin Lipase Free T4 11/05/18 11/05/18 11/05/18 17:09 20:03 23:43 WBC RBC Hgb Hct MCV MCH MCHC RDW Plt Count Lymph % (Auto) [place] % (Auto) Lymph # [place] # Seg Neutrophils % Seg Neuts % (Manual) Lymphocytes % (Manual) Seg Neutrophils # Seg Neutrophils # Man Lymphocytes # (Manual) POC ABG pH POC ABG pCO2 POC ABG pO2 76 L Sodium Potassium Chloride Carbon Dioxide BUN Creatinine Glucose POC Glucose 142 H 204 H Calcium Phosphorus Magnesium Iron TIBC Ferritin Alkaline Phosphatase NT-Pro-B Natriuret Pep Total Protein Albumin Lipase Free T4 11/06/18 11/06/18 11/06/18 04:21 12:14 17:17 WBC RBC Hgb Hct MCV MCH MCHC RDW Plt Count Lymph % (Auto) [place] % (Auto) Lymph # [place] # Seg Neutrophils % Seg Neuts % (Manual) Lymphocytes % (Manual) Seg Neutrophils # Seg Neutrophils # Man Lymphocytes # (Manual) POC ABG pH POC ABG pCO2 POC ABG pO2 Sodium 133 L Potassium Chloride Carbon Dioxide 18 L BUN 47 H Creatinine Glucose 187 H POC Glucose 232 H 199 H Calcium 7.8 L Phosphorus 5.30 H D Magnesium 2.50 H Iron TIBC Ferritin Alkaline Phosphatase NT-Pro-B Natriuret Pep Total Protein Albumin Lipase Free T4 11/06/18 11/06/18 11/07/18 19:46 23:30 00:00 WBC RBC Hgb Hct MCV MCH MCHC RDW Plt Count Lymph % (Auto) [place] % (Auto) Lymph # [place] # Seg Neutrophils % Seg Neuts % (Manual) Lymphocytes % (Manual) Seg Neutrophils # Seg Neutrophils # Man Lymphocytes # (Manual) POC ABG pH 7.317 L POC ABG pCO2 50.3 H POC ABG pO2 58 L 57 L Sodium Potassium Chloride Carbon Dioxide BUN Creatinine Glucose POC Glucose 224 H Calcium Phosphorus Magnesium Iron TIBC Ferritin Alkaline Phosphatase NT-Pro-B Natriuret Pep Total Protein Albumin Lipase Free T4 11/07/18 11/07/18 11/07/18 04:55 04:55 04:55 WBC 25.2 H RBC 3.64 L Hgb Hct MCV MCH MCHC RDW Plt Count Lymph % (Auto) [place] % (Auto) Lymph # [place] # Seg Neutrophils % Seg Neuts % (Manual) Lymphocytes % (Manual) Seg Neutrophils # Seg Neutrophils # Man Lymphocytes # (Manual) POC ABG pH POC ABG pCO2 POC ABG pO2 Sodium Potassium Chloride Carbon Dioxide BUN 54 H Creatinine Glucose 270 H POC Glucose Calcium 7.9 L Phosphorus 5.00 H Magnesium Iron TIBC Ferritin Alkaline Phosphatase NT-Pro-B Natriuret Pep 4507 H Total Protein Albumin Lipase Free T4 11/07/18 11/07/18 11/07/18 05:46 08:08 11:52 WBC RBC Hgb Hct MCV MCH MCHC RDW Plt Count Lymph % (Auto) [place] % (Auto) Lymph # [place] # Seg Neutrophils % Seg Neuts % (Manual) Lymphocytes % (Manual) Seg Neutrophils # Seg Neutrophils # Man Lymphocytes # (Manual) POC ABG pH POC ABG pCO2 47.6 H POC ABG pO2 106 H Sodium Potassium Chloride Carbon Dioxide BUN Creatinine Glucose POC Glucose 266 H 323 H Calcium Phosphorus Magnesium Iron TIBC Ferritin Alkaline Phosphatase NT-Pro-B Natriuret Pep Total Protein Albumin Lipase Free T4 11/07/18 11/07/18 11/07/18 12:29 17:57 23:48 WBC RBC Hgb Hct MCV MCH MCHC RDW Plt Count Lymph % (Auto) [place] % (Auto) Lymph # [place] # Seg Neutrophils % Seg Neuts % (Manual) Lymphocytes % (Manual) Seg Neutrophils # Seg Neutrophils # Man Lymphocytes # (Manual) POC ABG pH POC ABG pCO2 POC ABG pO2 Sodium Potassium Chloride Carbon Dioxide BUN Creatinine Glucose POC Glucose 325 H 286 H 231 H Calcium Phosphorus Magnesium Iron TIBC Ferritin Alkaline Phosphatase NT-Pro-B Natriuret Pep Total Protein Albumin Lipase Free T4 11/08/18 11/08/18 11/08/18 03:58 05:05 05:05 WBC 18.4 H RBC 3.20 L Hgb 10.0 L Hct 29.7 L MCV MCH MCHC RDW Plt Count Lymph % (Auto) [place] % (Auto) Lymph # [place] # Seg Neutrophils % Seg Neuts % (Manual) Lymphocytes % (Manual) Seg Neutrophils # Seg Neutrophils # Man Lymphocytes # (Manual) POC ABG pH 7.524 H POC ABG pCO2 34.3 L POC ABG pO2 Sodium Potassium Chloride Carbon Dioxide BUN 61 H Creatinine Glucose 253 H POC Glucose Calcium 7.6 L Phosphorus Magnesium Iron TIBC Ferritin Alkaline Phosphatase NT-Pro-B Natriuret Pep Total Protein Albumin Lipase Free T4 11/08/18 11/08/18 11/08/18 05:28 11:28 18:21 WBC RBC Hgb Hct MCV MCH MCHC RDW Plt Count Lymph % (Auto) [place] % (Auto) Lymph # [place] # Seg Neutrophils % Seg Neuts % (Manual) Lymphocytes % (Manual) Seg Neutrophils # Seg Neutrophils # Man Lymphocytes # (Manual) POC ABG pH POC ABG pCO2 POC ABG pO2 Sodium Potassium Chloride Carbon Dioxide BUN Creatinine Glucose POC Glucose 295 H 253 H 225 H Calcium Phosphorus Magnesium Iron TIBC Ferritin Alkaline Phosphatase NT-Pro-B Natriuret Pep Total Protein Albumin Lipase Free T4 11/09/18 11/09/18 11/09/18 00:57 04:06 06:06 WBC RBC Hgb Hct MCV MCH MCHC RDW Plt Count Lymph % (Auto) [place] % (Auto) Lymph # [place] # Seg Neutrophils % Seg Neuts % (Manual) Lymphocytes % (Manual) Seg Neutrophils # Seg Neutrophils # Man Lymphocytes # (Manual) POC ABG pH 7.509 H POC ABG pCO2 POC ABG pO2 Sodium Potassium Chloride Carbon Dioxide BUN Creatinine Glucose POC Glucose 218 H 199 H Calcium Phosphorus Magnesium Iron TIBC Ferritin Alkaline Phosphatase NT-Pro-B Natriuret Pep Total Protein Albumin Lipase Free T4 11/09/18 11/09/18 11/09/18 06:51 06:51 12:07 WBC 13.5 H RBC 2.97 L Hgb 9.3 L Hct 27.6 L MCV MCH MCHC RDW Plt Count Lymph % (Auto) [place] % (Auto) Lymph # [place] # Seg Neutrophils % Seg Neuts % (Manual) Lymphocytes % (Manual) Seg Neutrophils # Seg Neutrophils # Man Lymphocytes # (Manual) POC ABG pH POC ABG pCO2 POC ABG pO2 Sodium Potassium Chloride 96.5 L Carbon Dioxide 32 H BUN 58 H Creatinine Glucose 191 H POC Glucose 212 H Calcium 7.5 L Phosphorus Magnesium Iron TIBC Ferritin Alkaline Phosphatase NT-Pro-B Natriuret Pep Total Protein Albumin Lipase Free T4 11/09/18 11/10/18 11/10/18 18:29 00:09 04:21 WBC RBC Hgb Hct MCV MCH MCHC RDW Plt Count Lymph % (Auto) [place] % (Auto) Lymph # [place] # Seg Neutrophils % Seg Neuts % (Manual) Lymphocytes % (Manual) Seg Neutrophils # Seg Neutrophils # Man Lymphocytes # (Manual) POC ABG pH 7.467 H POC ABG pCO2 49.9 H POC ABG pO2 76 L Sodium Potassium Chloride Carbon Dioxide BUN Creatinine Glucose POC Glucose 192 H 214 H Calcium Phosphorus Magnesium Iron TIBC Ferritin Alkaline Phosphatase NT-Pro-B Natriuret Pep Total Protein Albumin Lipase Free T4 11/10/18 11/10/18 11/10/18 04:39 04:39 06:05 WBC 14.3 H RBC 3.09 L Hgb 9.7 L Hct 28.9 L MCV MCH MCHC RDW Plt Count Lymph % (Auto) [place] % (Auto) Lymph # [place] # Seg Neutrophils % Seg Neuts % (Manual) Lymphocytes % (Manual) Seg Neutrophils # Seg Neutrophils # Man Lymphocytes # (Manual) POC ABG pH POC ABG pCO2 POC ABG pO2 Sodium Potassium Chloride 97.5 L Carbon Dioxide 31 H BUN 53 H Creatinine Glucose 196 H POC Glucose 202 H Calcium 7.7 L Phosphorus Magnesium Iron TIBC Ferritin Alkaline Phosphatase NT-Pro-B Natriuret Pep Total Protein Albumin Lipase Free T4 11/10/18 11/10/18 11/11/18 12:32 17:16 00:06 WBC RBC Hgb Hct MCV MCH MCHC RDW Plt Count Lymph % (Auto) [place] % (Auto) Lymph # [place] # Seg Neutrophils % Seg Neuts % (Manual) Lymphocytes % (Manual) Seg Neutrophils # Seg Neutrophils # Man Lymphocytes # (Manual) POC ABG pH POC ABG pCO2 POC ABG pO2 Sodium Potassium Chloride Carbon Dioxide BUN Creatinine Glucose POC Glucose 197 H 200 H 177 H Calcium Phosphorus Magnesium Iron TIBC Ferritin Alkaline Phosphatase NT-Pro-B Natriuret Pep Total Protein Albumin Lipase Free T4 11/11/18 11/11/18 11/11/18 04:43 05:24 05:50 WBC 14.1 H RBC 2.92 L Hgb 9.1 L Hct 27.0 L MCV MCH MCHC RDW Plt Count Lymph % (Auto) [place] % (Auto) Lymph # [place] # Seg Neutrophils % Seg Neuts % (Manual) Lymphocytes % (Manual) Seg Neutrophils # Seg Neutrophils # Man Lymphocytes # (Manual) POC ABG pH POC ABG pCO2 50.1 H POC ABG pO2 Sodium Potassium Chloride Carbon Dioxide BUN Creatinine Glucose POC Glucose 199 H Calcium Phosphorus Magnesium Iron TIBC Ferritin Alkaline Phosphatase NT-Pro-B Natriuret Pep Total Protein Albumin Lipase Free T4 11/11/18 11/11/18 11/11/18 05:50 12:00 17:57 WBC RBC Hgb Hct MCV MCH MCHC RDW Plt Count Lymph % (Auto) [place] % (Auto) Lymph # [place] # Seg Neutrophils % Seg Neuts % (Manual) Lymphocytes % (Manual) Seg Neutrophils # Seg Neutrophils # Man Lymphocytes # (Manual) POC ABG pH POC ABG pCO2 POC ABG pO2 Sodium Potassium 3.5 L Chloride Carbon Dioxide 34 H BUN 47 H Creatinine 0.5 L Glucose 169 H POC Glucose 168 H 194 H Calcium 8.2 L Phosphorus Magnesium Iron TIBC Ferritin Alkaline Phosphatase 142 H NT-Pro-B Natriuret Pep Total Protein 4.4 L Albumin 2.1 L Lipase Free T4 11/11/18 11/12/18 11/12/18 23:26 05:32 09:26 WBC RBC Hgb Hct MCV MCH MCHC RDW Plt Count Lymph % (Auto) [place] % (Auto) Lymph # [place] # Seg Neutrophils % Seg Neuts % (Manual) Lymphocytes % (Manual) Seg Neutrophils # Seg Neutrophils # Man Lymphocytes # (Manual) POC ABG pH POC ABG pCO2 POC ABG pO2 Sodium Potassium Chloride Carbon Dioxide BUN Creatinine Glucose POC Glucose 181 H 186 H 158 H Calcium Phosphorus Magnesium Iron TIBC Ferritin Alkaline Phosphatase NT-Pro-B Natriuret Pep Total Protein Albumin Lipase Free T4 11/12/18 11/12/18 11/12/18 11:42 17:39 23:25 WBC RBC Hgb Hct MCV MCH MCHC RDW Plt Count Lymph % (Auto) [place] % (Auto) Lymph # [place] # Seg Neutrophils % Seg Neuts % (Manual) Lymphocytes % (Manual) Seg Neutrophils # Seg Neutrophils # Man Lymphocytes # (Manual) POC ABG pH POC ABG pCO2 POC ABG pO2 Sodium Potassium Chloride Carbon Dioxide BUN Creatinine Glucose POC Glucose 141 H 183 H 147 H Calcium Phosphorus Magnesium Iron TIBC Ferritin Alkaline Phosphatase NT-Pro-B Natriuret Pep Total Protein Albumin Lipase Free T4 11/13/18 11/13/18 11/13/18 12:16 18:10 21:21 WBC RBC Hgb Hct MCV MCH MCHC RDW Plt Count Lymph % (Auto) [place] % (Auto) Lymph # [place] # Seg Neutrophils % Seg Neuts % (Manual) Lymphocytes % (Manual) Seg Neutrophils # Seg Neutrophils # Man Lymphocytes # (Manual) POC ABG pH POC ABG pCO2 POC ABG pO2 Sodium Potassium Chloride Carbon Dioxide BUN Creatinine Glucose POC Glucose 114 H 127 H 185 H Calcium Phosphorus Magnesium Iron TIBC Ferritin Alkaline Phosphatase NT-Pro-B Natriuret Pep Total Protein Albumin Lipase Free T4 11/13/18 11/14/18 11/14/18 23:11 03:28 03:28 WBC RBC Hgb Hct MCV MCH MCHC RDW Plt Count Lymph % (Auto) [place] % (Auto) Lymph # [place] # Seg Neutrophils % Seg Neuts % (Manual) Lymphocytes % (Manual) Seg Neutrophils # Seg Neutrophils # Man Lymphocytes # (Manual) POC ABG pH POC ABG pCO2 POC ABG pO2 Sodium Potassium Chloride Carbon Dioxide BUN Creatinine Glucose POC Glucose 184 H Calcium Phosphorus Magnesium Iron 31 L TIBC 173 L Ferritin 510.3 H Alkaline Phosphatase NT-Pro-B Natriuret Pep Total Protein Albumin Lipase Free T4 11/14/18 11/14/18 11/14/18 05:12 07:59 10:05 WBC 19.8 H RBC 2.67 L Hgb 8.4 L Hct 25.2 L MCV MCH MCHC RDW Plt Count Lymph % (Auto) [place] % (Auto) Lymph # [place] # Seg Neutrophils % Seg Neuts % (Manual) 96.0 H Lymphocytes % (Manual) 0 L Seg Neutrophils # Seg Neutrophils # Man 19.0 H Lymphocytes # (Manual) 0.0 L POC ABG pH 7.470 H POC ABG pCO2 POC ABG pO2 Sodium Potassium Chloride Carbon Dioxide BUN Creatinine Glucose POC Glucose 178 H Calcium Phosphorus Magnesium Iron TIBC Ferritin Alkaline Phosphatase NT-Pro-B Natriuret Pep Total Protein Albumin Lipase Free T4 11/14/18 11/14/18 11/14/18 11:40 18:03 23:15 WBC RBC Hgb Hct MCV MCH MCHC RDW Plt Count Lymph % (Auto) [place] % (Auto) Lymph # [place] # Seg Neutrophils % Seg Neuts % (Manual) Lymphocytes % (Manual) Seg Neutrophils # Seg Neutrophils # Man Lymphocytes # (Manual) POC ABG pH POC ABG pCO2 POC ABG pO2 Sodium Potassium Chloride Carbon Dioxide BUN Creatinine Glucose POC Glucose 168 H 221 H 223 H Calcium Phosphorus Magnesium Iron TIBC Ferritin Alkaline Phosphatase NT-Pro-B Natriuret Pep Total Protein Albumin Lipase Free T4 11/15/18 11/15/18 11/15/18 05:29 11:33 12:13 WBC RBC Hgb Hct MCV MCH MCHC RDW Plt Count Lymph % (Auto) [place] % (Auto) Lymph # [place] # Seg Neutrophils % Seg Neuts % (Manual) Lymphocytes % (Manual) Seg Neutrophils # Seg Neutrophils # Man Lymphocytes # (Manual) POC ABG pH POC ABG pCO2 46.1 H POC ABG pO2 107 H Sodium Potassium Chloride Carbon Dioxide BUN Creatinine Glucose POC Glucose 210 H 199 H Calcium Phosphorus Magnesium Iron TIBC Ferritin Alkaline Phosphatase NT-Pro-B Natriuret Pep Total Protein Albumin Lipase Free T4 11/15/18 11/15/18 11/15/18 14:32 17:45 23:29 WBC RBC Hgb Hct MCV MCH MCHC RDW Plt Count Lymph % (Auto) [place] % (Auto) Lymph # [place] # Seg Neutrophils % Seg Neuts % (Manual) Lymphocytes % (Manual) Seg Neutrophils # Seg Neutrophils # Man Lymphocytes # (Manual) POC ABG pH POC ABG pCO2 POC ABG pO2 Sodium 149 H Potassium 3.1 L Chloride 109.2 H Carbon Dioxide BUN 36 H Creatinine 0.5 L Glucose 164 H POC Glucose 154 H 163 H Calcium 7.5 L Phosphorus Magnesium Iron TIBC Ferritin Alkaline Phosphatase NT-Pro-B Natriuret Pep Total Protein Albumin Lipase Free T4 0611/16/18 11/16/18 05:54 12:05 12:57 WBC RBC Hgb Hct MCV MCH MCHC RDW Plt Count Lymph % (Auto) [place] % (Auto) Lymph # [place] # Seg Neutrophils % Seg Neuts % (Manual) Lymphocytes % (Manual) Seg Neutrophils # Seg Neutrophils # Man Lymphocytes # (Manual) POC ABG pH POC ABG pCO2 POC ABG pO2 Sodium 150 H Potassium 3.0 L Chloride 109.0 H Carbon Dioxide BUN 41 H Creatinine 0.5 L Glucose 158 H POC Glucose 168 H 176 H Calcium 7.6 L Phosphorus Magnesium Iron TIBC Ferritin Alkaline Phosphatase NT-Pro-B Natriuret Pep Total Protein Albumin Lipase Free T4 11/16/18 11/16/18 11/17/18 16:49 23:22 04:25 WBC 16.2 H RBC 2.72 L Hgb 8.7 L Hct 25.9 L MCV MCH MCHC RDW 15.6 H Plt Count Lymph % (Auto) [place] % (Auto) Lymph # [place] # Seg Neutrophils % Seg Neuts % (Manual) 97.0 H Lymphocytes % (Manual) 1.0 L Seg Neutrophils # Seg Neutrophils # Man 15.7 H Lymphocytes # (Manual) 0.2 L POC ABG pH POC ABG pCO2 POC ABG pO2 Sodium Potassium Chloride Carbon Dioxide BUN Creatinine Glucose POC Glucose 163 H 230 H Calcium Phosphorus Magnesium Iron TIBC Ferritin Alkaline Phosphatase NT-Pro-B Natriuret Pep Total Protein Albumin Lipase Free T4 11/17/18 11/17/18 11/17/18 04:25 05:56 12:39 WBC RBC Hgb Hct MCV MCH MCHC RDW Plt Count Lymph % (Auto) [place] % (Auto) Lymph # [place] # Seg Neutrophils % Seg Neuts % (Manual) Lymphocytes % (Manual) Seg Neutrophils # Seg Neutrophils # Man Lymphocytes # (Manual) POC ABG pH POC ABG pCO2 POC ABG pO2 Sodium 152 H Potassium 3.4 L Chloride 109.9 H Carbon Dioxide 32 H BUN 40 H Creatinine 0.5 L Glucose 155 H POC Glucose 173 H 193 H Calcium 7.9 L Phosphorus Magnesium Iron TIBC Ferritin Alkaline Phosphatase NT-Pro-B Natriuret Pep Total Protein Albumin Lipase Free T4 11/17/18 11/17/18 11/18/18 17:08 23:06 04:26 WBC 18.3 H RBC 2.52 L Hgb 8.0 L Hct 24.5 L MCV MCH MCHC RDW 16.0 H Plt Count Lymph % (Auto) [place] % (Auto) Lymph # [place] # Seg Neutrophils % Seg Neuts % (Manual) 96.0 H Lymphocytes % (Manual) 0 L Seg Neutrophils # Seg Neutrophils # Man 17.6 H Lymphocytes # (Manual) 0.0 L POC ABG pH POC ABG pCO2 POC ABG pO2 Sodium Potassium Chloride Carbon Dioxide BUN Creatinine Glucose POC Glucose 203 H 167 H Calcium Phosphorus Magnesium Iron TIBC Ferritin Alkaline Phosphatase NT-Pro-B Natriuret Pep Total Protein Albumin Lipase Free T4 11/18/18 11/18/18 11/18/18 04:26 05:29 13:52 WBC RBC Hgb Hct MCV MCH MCHC RDW Plt Count Lymph % (Auto) [place] % (Auto) Lymph # [place] # Seg Neutrophils % Seg Neuts % (Manual) Lymphocytes % (Manual) Seg Neutrophils # Seg Neutrophils # Man Lymphocytes # (Manual) POC ABG pH POC ABG pCO2 POC ABG pO2 Sodium 149 H Potassium Chloride 110.5 H Carbon Dioxide BUN 41 H Creatinine 0.4 L Glucose 127 H POC Glucose 128 H 109 H Calcium 7.9 L Phosphorus Magnesium Iron TIBC Ferritin Alkaline Phosphatase NT-Pro-B Natriuret Pep Total Protein Albumin Lipase Free T4 11/18/18 11/18/18 11/19/18 18:05 23:33 05:34 WBC RBC Hgb Hct MCV MCH MCHC RDW Plt Count Lymph % (Auto) [place] % (Auto) Lymph # [place] # Seg Neutrophils % Seg Neuts % (Manual) Lymphocytes % (Manual) Seg Neutrophils # Seg Neutrophils # Man Lymphocytes # (Manual) POC ABG pH POC ABG pCO2 POC ABG pO2 Sodium Potassium Chloride Carbon Dioxide BUN Creatinine Glucose POC Glucose 174 H 178 H 116 H Calcium Phosphorus Magnesium Iron TIBC Ferritin Alkaline Phosphatase NT-Pro-B Natriuret Pep Total Protein Albumin Lipase Free T4 11/19/18 11/19/18 11/19/18 08:35 08:35 11:31 WBC 22.3 H RBC 2.80 L Hgb 8.9 L Hct 26.7 L MCV MCH MCHC RDW 16.5 H Plt Count Lymph % (Auto) [place] % (Auto) Lymph # [place] # Seg Neutrophils % Seg Neuts % (Manual) Lymphocytes % (Manual) Seg Neutrophils # Seg Neutrophils # Man Lymphocytes # (Manual) POC ABG pH POC ABG pCO2 POC ABG pO2 Sodium 147 H Potassium Chloride 107.2 H Carbon Dioxide BUN 35 H Creatinine 0.3 L Glucose 117 H POC Glucose 161 H Calcium 7.9 L Phosphorus Magnesium Iron TIBC Ferritin Alkaline Phosphatase NT-Pro-B Natriuret Pep Total Protein Albumin Lipase Free T4 11/19/18 11/20/18 11/20/18 23:43 04:19 04:19 WBC 13.7 H RBC 2.50 L Hgb 8.0 L Hct 24.2 L MCV MCH MCHC RDW 16.9 H Plt Count Lymph % (Auto) [place] % (Auto) Lymph # [place] # Seg Neutrophils % Seg Neuts % (Manual) Lymphocytes % (Manual) Seg Neutrophils # Seg Neutrophils # Man Lymphocytes # (Manual) POC ABG pH POC ABG pCO2 POC ABG pO2 Sodium Potassium Chloride Carbon Dioxide BUN 35 H Creatinine 0.3 L Glucose 178 H POC Glucose 243 H Calcium 7.9 L Phosphorus Magnesium Iron TIBC Ferritin Alkaline Phosphatase NT-Pro-B Natriuret Pep Total Protein Albumin Lipase Free T4 11/20/18 11/21/18 11/21/18 05:38 05:37 05:49 WBC 16.1 H RBC 2.76 L Hgb 8.9 L Hct 26.8 L MCV MCH MCHC RDW 16.8 H Plt Count Lymph % (Auto) [place] % (Auto) Lymph # [place] # Seg Neutrophils % Seg Neuts % (Manual) Lymphocytes % (Manual) Seg Neutrophils # Seg Neutrophils # Man Lymphocytes # (Manual) POC ABG pH POC ABG pCO2 POC ABG pO2 Sodium Potassium Chloride Carbon Dioxide BUN Creatinine Glucose POC Glucose 202 H 162 H Calcium Phosphorus Magnesium Iron TIBC Ferritin Alkaline Phosphatase NT-Pro-B Natriuret Pep Total Protein Albumin Lipase Free T4 11/21/18 11/21/18 11/21/18 05:49 12:12 22:26 WBC RBC Hgb Hct MCV MCH MCHC RDW Plt Count Lymph % (Auto) [place] % (Auto) Lymph # [place] # Seg Neutrophils % Seg Neuts % (Manual) Lymphocytes % (Manual) Seg Neutrophils # Seg Neutrophils # Man Lymphocytes # (Manual) POC ABG pH POC ABG pCO2 POC ABG pO2 Sodium 148 H Potassium Chloride 108.1 H Carbon Dioxide BUN 33 H Creatinine 0.3 L Glucose 133 H POC Glucose 112 H 184 H Calcium 8.1 L Phosphorus Magnesium Iron TIBC Ferritin Alkaline Phosphatase NT-Pro-B Natriuret Pep Total Protein Albumin Lipase Free T4 11/21/18 11/22/18 11/22/18 23:44 05:35 06:10 WBC 16.7 H RBC 2.69 L Hgb 8.6 L Hct 26.0 L MCV MCH MCHC RDW 16.3 H Plt Count Lymph % (Auto) [place] % (Auto) Lymph # [place] # Seg Neutrophils % Seg Neuts % (Manual) Lymphocytes % (Manual) Seg Neutrophils # Seg Neutrophils # Man Lymphocytes # (Manual) POC ABG pH POC ABG pCO2 POC ABG pO2 Sodium Potassium Chloride Carbon Dioxide BUN Creatinine Glucose POC Glucose 177 H 183 H Calcium Phosphorus Magnesium Iron TIBC Ferritin Alkaline Phosphatase NT-Pro-B Natriuret Pep Total Protein Albumin Lipase Free T4 11/22/18 11/22/18 11/22/18 06:10 13:38 17:34 WBC RBC Hgb Hct MCV MCH MCHC RDW Plt Count Lymph % (Auto) [place] % (Auto) Lymph # [place] # Seg Neutrophils % Seg Neuts % (Manual) Lymphocytes % (Manual) Seg Neutrophils # Seg Neutrophils # Man Lymphocytes # (Manual) POC ABG pH POC ABG pCO2 POC ABG pO2 Sodium Potassium Chloride Carbon Dioxide BUN 29 H Creatinine 0.3 L Glucose 147 H POC Glucose 124 H 185 H Calcium 7.4 L Phosphorus Magnesium Iron TIBC Ferritin Alkaline Phosphatase NT-Pro-B Natriuret Pep Total Protein Albumin Lipase Free T4 11/22/18 11/23/18 11/23/18 23:39 05:30 05:30 WBC 20.0 H RBC 2.86 L Hgb 9.3 L Hct 27.6 L MCV MCH 33 H MCHC RDW 16.9 H Plt Count Lymph % (Auto) [place] % (Auto) Lymph # [place] # Seg Neutrophils % Seg Neuts % (Manual) Lymphocytes % (Manual) Seg Neutrophils # Seg Neutrophils # Man Lymphocytes # (Manual) POC ABG pH POC ABG pCO2 POC ABG pO2 Sodium Potassium Chloride Carbon Dioxide BUN 26 H Creatinine 0.3 L Glucose 163 H POC Glucose 166 H Calcium 7.4 L Phosphorus Magnesium Iron TIBC Ferritin Alkaline Phosphatase NT-Pro-B Natriuret Pep Total Protein Albumin Lipase Free T4 11/23/18 11/23/18 11/23/18 11:21 12:34 19:37 WBC RBC Hgb Hct MCV MCH MCHC RDW Plt Count Lymph % (Auto) [place] % (Auto) Lymph # [place] # Seg Neutrophils % Seg Neuts % (Manual) Lymphocytes % (Manual) Seg Neutrophils # Seg Neutrophils # Man Lymphocytes # (Manual) POC ABG pH POC ABG pCO2 POC ABG pO2 Sodium Potassium Chloride Carbon Dioxide BUN Creatinine Glucose POC Glucose 140 H 154 H 202 H Calcium Phosphorus Magnesium Iron TIBC Ferritin Alkaline Phosphatase NT-Pro-B Natriuret Pep Total Protein Albumin Lipase Free T4 11/23/18 11/24/18 11/24/18 23:25 06:32 06:45 WBC 22.7 H RBC 2.92 L Hgb 9.5 L Hct 28.3 L MCV MCH MCHC RDW 17.8 H Plt Count Lymph % (Auto) [place] % (Auto) Lymph # [place] # Seg Neutrophils % Seg Neuts % (Manual) Lymphocytes % (Manual) Seg Neutrophils # Seg Neutrophils # Man Lymphocytes # (Manual) POC ABG pH POC ABG pCO2 POC ABG pO2 Sodium Potassium Chloride Carbon Dioxide BUN Creatinine Glucose POC Glucose 162 H 121 H Calcium Phosphorus Magnesium Iron TIBC Ferritin Alkaline Phosphatase NT-Pro-B Natriuret Pep Total Protein Albumin Lipase Free T4 11/24/18 06:45 WBC RBC Hgb Hct MCV MCH MCHC RDW Plt Count Lymph % (Auto) [place] % (Auto) Lymph # [place] # Seg Neutrophils % Seg Neuts % (Manual) Lymphocytes % (Manual) Seg Neutrophils # Seg Neutrophils # Man Lymphocytes # (Manual) POC ABG pH POC ABG pCO2 POC ABG pO2 Sodium Potassium Chloride Carbon Dioxide BUN 25 H Creatinine 0.3 L Glucose 116 H POC Glucose Calcium 7.5 L Phosphorus Magnesium Iron TIBC Ferritin Alkaline Phosphatase NT-Pro-B Natriuret Pep Total Protein Albumin Lipase Free T4 Chest x-ray: report reviewed, image reviewed Allied health notes reviewed: nursing
[2018-11-24] MEDS: ZOFRAN IV PRN (09:12)
[2018-11-24] MEDS: PREVACID SOLUTAB FEEDTUBE SCH (09:47)
[2018-11-24] MEDS: SOLU-Medrol IV SCH (09:48)
[2018-11-24] MEDS: SODIUM CHLORIDE FLUSH SYRINGE 10 ML IV SCH ×2 (09:50→21:14)
[2018-11-24] MEDS: PERCOCET 5/325 PO PRN ×2 (14:45→21:12)
--- NOTE | 2018-11-24 18:28 | Progress Note ---
Assessment and Plan Assessment and plan: 30 The high probability of a clinically significant, sudden or life threatening deterioration of the [] system(s) required my full and direct attention, intervention and personal management. The aggregate critical care time was [] minutes. This time is in addition to time spent performing reported procedures but includes the following: [x] Data Review and interpretation []x Patient assessment and monitoring of vital signs [xx] Documentation [x] Medication orders and management Total Time Spent with Patient (Minutes): 31 - Patient Problems (1) SIRS (systemic inflammatory response syndrome) Current Visit: Yes Status: Acute Plan to address problem: Most likely secondary to steroids versus recurrent aspiration pneumonia. Patient hemodynamically stable. Culture data with Ayla being treated fluconazole. Also COPD may be underlying etiology. Currently awaiting placement LTAC. (2) Acute on chronic respiratory failure Current Visit: Yes Status: Acute Plan to address problem: Defect Ar infection COPD. (3) ADWOA (acute kidney injury) Current Visit: Yes Status: Resolved Plan to address problem: Secondary to prerenal azotemia vasomotor nephropathy resolving. (4) Opioid dependence Current Visit: Yes Status: Acute Plan to address problem: We'll addressed when patient physically able to discuss it may be difficult patient may have chronic pain. (5) Partial small bowel obstruction Current Visit: Yes Status: Acute Plan to address problem: Gastric perforation small bowel obstruction resolved. Surgery evaluated treat conservatively. (6) Diabetes 1.5, managed as type 1 Current Visit: Yes Status: Acute Plan to address problem: Patient diabetes managed sliding-scale insulin Lantus stable. History Interval history: Patient 73-year-old that presented history of lupus, COPD, fibromyalgia, opioid dependency and diabetes presents with small bowel obstruction acute hypercapnic respiratory failure secondary to possible pain medications. Hospital course complicated by fungemi. Patient with episode of extubation and reintubation after failing BiPAP trial. Present no new events over p.m. remains intubated awaiting placement. Hospitalist Physical - Constitutional Vitals: Temp Pulse Resp BP Pulse Ox 98.1 F 83 20 105/42 99 11/24/18 15:44 11/24/18 17:30 11/24/18 17:30 11/24/18 17:30 11/24/18 17:30 General appearance: Present: mild distress, other (intubated, opens eyes to commands) - EENT Eyes: Present: PERRL, EOM intact ENT: hearing intact, clear oral mucosa, dentition normal - Neck Neck: Present: supple, normal ROM - Respiratory Respiratory: bilateral: diminished, rhonchi - Cardiovascular Rhythm: regular - Extremities Extremities: no ischemia, pulses intact, pulses symmetrical, No edema, normal temperature, normal color Peripheral Pulses: within normal limits - Abdominal General gastrointestinal: soft, non-tender, non-distended, hypoactive bowel sounds - Integumentary Integumentary: Present: clear, warm, dry - Neurologic Neurologic: focal deficits Results - Labs CBC & Chem 7: 11/24/18 06:45 11/24/18 06:45 Labs: Laboratory Last Values WBC 22.7 K/mm3 (4.5-11.0) H 11/24/18 06:45 RBC 2.92 M/mm3 (3.65-5.03) L 11/24/18 06:45 Hgb 9.5 gm/dl (10.1-14.3) L 11/24/18 06:45 Hct 28.3 % (30.3-42.9) L 11/24/18 06:45 MCV 97 fl (79-97) 11/24/18 06:45 MCH 32 pg (28-32) 11/24/18 06:45 MCHC 33 % (30-34) 11/24/18 06:45 RDW 17.8 % (13.2-15.2) H 11/24/18 06:45 Plt Count 211 K/mm3 (140-440) 11/24/18 06:45 Lymph % (Auto) Embedded Software Test Engineer 11/14/18 07:59 Roberts % (Auto) Embedded Software Test Engineer 11/14/18 07:59 Eos % (Auto) Embedded Software Test Engineer 11/14/18 07:59 Baso % (Auto) Embedded Software Test Engineer 11/14/18 07:59 Lymph # Embedded Software Test Engineer 11/14/18 07:59 Roberts # Embedded Software Test Engineer 11/14/18 07:59 Eos # Embedded Software Test Engineer 11/14/18 07:59 Baso # Embedded Software Test Engineer 11/14/18 07:59 Add Manual Diff Complete 11/18/18 04:26 Total Counted 100 11/18/18 04:26 Seg Neutrophils % Embedded Software Test Engineer 11/17/18 04:25 Seg Neuts % (Manual) 96.0 % (40.0-70.0) H 11/18/18 04:26 1.0 % 11/18/18 04:26 0 % (13.4-35.0) L 11/18/18 04:26 Reactive Lymphs % (Man) 0 % 11/18/18 04:26 3.0 % (0.0-7.3) 11/18/18 04:26 0 % (0.0-4.3) 11/18/18 04:26 0 % (0.0-1.8) 11/18/18 04:26 0 % 11/18/18 04:26 0 % 11/18/18 04:26 0 % 11/18/18 04:26 0 % 11/18/18 04:26 Nucleated RBC % Not Reportable 11/18/18 04:26 Seg Neutrophils # Embedded Software Test Engineer 11/14/18 07:59 Seg Neutrophils # Man 17.6 K/mm3 (1.8-7.7) H 11/18/18 04:26 Band Neutrophils # 0.2 K/mm3 11/18/18 04:26 0.0 K/mm3 (1.2-5.4) L 11/18/18 04:26 Abs React Lymphs (Man) 0.0 K/mm3 11/18/18 04:26 0.5 K/mm3 (0.0-0.8) 11/18/18 04:26 0.0 K/mm3 (0.0-0.4) 11/18/18 04:26 0.0 K/mm3 (0.0-0.1) 11/18/18 04:26 0.0 K/mm3 11/18/18 04:26 0.0 K/mm3 11/18/18 04:26 0.0 K/mm3 11/18/18 04:26 Blast Cells # 0.0 K/mm3 11/18/18 04:26 WBC Morphology Not Reportable 11/18/18 04:26 WBC Morphology TNR 11/18/18 04:26 Hypersegmented Neuts Not Reportable 11/18/18 04:26 Hyposegmented Neuts Not Reportable 11/18/18 04:26 Hypogranular Neuts Not Reportable 11/18/18 04:26 Not Reportable 11/18/18 04:26 Not Reportable 11/18/18 04:26 Not Reportable 11/18/18 04:26 Not Reportable 11/18/18 04:26 Not Reportable 11/18/18 04:26 Not Reportable 11/18/18 04:26 Consistent w auto 11/18/18 04:26 Not Reportable 11/18/18 04:26 Plt Clumps, EDTA Not Reportable 11/18/18 04:26 Not Reportable 11/18/18 04:26 Not Reportable 11/18/18 04:26 Not Reportable 11/18/18 04:26 Plt Morphology Comment Not Reportable 11/18/18 04:26 RBC Morphology Not Reportable 11/18/18 04:26 Dimorphic RBCs Not Reportable 11/18/18 04:26 Not Reportable 11/18/18 04:26 Not Reportable 11/18/18 04:26 Not Reportable 11/18/18 04:26 Not Reportable 11/18/18 04:26 Not Reportable 11/18/18 04:26 Not Reportable 11/18/18 04:26 Not Reportable 11/18/18 04:26 Not Reportable 11/18/18 04:26 Not Reportable 11/18/18 04:26 Not Reportable 11/18/18 04:26 Not Reportable 11/18/18 04:26 Not Reportable 11/18/18 04:26 Few 11/17/18 04:25 Not Reportable 11/18/18 04:26 Not Reportable 11/18/18 04:26 Not Reportable 11/18/18 04:26 Not Reportable 11/18/18 04:26 Not Reportable 11/18/18 04:26 Not Reportable 11/18/18 04:26 Not Reportable 11/18/18 04:26 Acanthocytes (Spur) Not Reportable 11/18/18 04:26 Rouleaux Not Reportable 11/18/18 04:26 Not Reportable 11/18/18 04:26 Not Reportable 11/18/18 04:26 Not Reportable 11/18/18 04:26 Not Reportable 11/18/18 04:26 Hem Pathologist Commnt No 11/18/18 04:26 Heparin Anti-Xa, Unfract Negative (Negative) 10/30/18 13:58 POC ABG pH 7.455 (7.35-7.45) H 11/24/18 13:03 POC ABG pCO2 43.8 (35-45) 11/24/18 13:03 POC ABG pO2 67 (80-105) L 11/24/18 13:03 POC ABG HCO3 30.8 (22-26 mml/L) 11/24/18 13:03 POC ABG Total CO2 32 (23-27mmol/L) 11/24/18 13:03 POC ABG O2 Sat 94 11/24/18 13:03 POC ABG Base Excess 7 ((-2) - (+3)mmol/L) 11/24/18 13:03 28 % 11/24/18 13:03 Sodium 144 mmol/L (137-145) 11/24/18 06:45 Potassium 4.7 mmol/L (3.6-5.0) 11/24/18 06:45 Chloride 102.5 mmol/L (98-107) 11/24/18 06:45 Carbon Dioxide 29 mmol/L (22-30) 11/24/18 06:45 17 mmol/L 11/24/18 06:45 BUN 25 mg/dL (7-17) H 11/24/18 06:45 0.3 mg/dL (0.7-1.2) L 11/24/18 06:45 Estimated GFR > 60 ml/min 11/24/18 06:45 83 % 11/24/18 06:45 Glucose 116 mg/dL (65-100) H 11/24/18 06:45 POC Glucose 161 (70-105) H 11/24/18 11:52 Lactic Acid 1.60 mmol/L (0.7-2.0) 10/26/18 15:03 Calcium 7.5 mg/dL (8.4-10.2) L 11/24/18 06:45 Phosphorus 2.80 mg/dL (2.5-4.5) 11/11/18 05:50 Magnesium 1.80 mg/dL (1.7-2.3) 11/11/18 05:50 Iron 31 ug/dL (37-170) L 11/14/18 03:28 TIBC 173 mcg/dL (250-450) L 11/14/18 03:28 510.3 ng/mL (13.0-400.0) H 11/14/18 03:28 0.30 mg/dL (0.1-1.2) 11/11/18 05:50 AST 26 units/L (5-40) 11/11/18 05:50 ALT 28 units/L (7-56) 11/11/18 05:50 142 units/L (35-129) H 11/11/18 05:50 NT-Pro-B Natriuret Pep 4507 pg/mL (0-900) H 11/07/18 04:55 4.4 g/dL (6.3-8.2) L 11/11/18 05:50 2.1 g/dL (3.9-5) L 11/11/18 05:50 0.9 % 11/11/18 05:50 Triglycerides 132 mg/dL (2-149) 11/01/18 06:40 10 units/L (13-60) L 10/22/18 15:54 See scanned result 10/30/18 13:58 TSH 3.150 mlU/mL (0.270-4.200) 10/31/18 17:00 Free T4 0.49 ng/dL (0.76-1.46) L 10/31/18 17:00 Dulce (Yellow) 10/22/18 19:10 Clear (Clear) 10/22/18 19:10 5.0 (5.0-7.0) 10/22/18 19:10 Ur Specific [place] 1.018 (1.003-1.030) 10/22/18 19:10 30 mg/dl mg/dL (Negative) 10/22/18 19:10 Neg mg/dL (Negative) 10/22/18 19:10 Tr mg/dL (Negative) 10/22/18 19:10 Neg (Negative) 10/22/18 19:10 Neg (Negative) 10/22/18 19:10 Neg (Negative) 10/22/18 19:10 < 2.0 mg/dL (<2.0) 10/22/18 19:10 Ur Leukocyte Esterase Neg (Negative) 10/22/18 19:10 1.0 /HPF (0.0-6.0) 10/22/18 19:10 3.0 /HPF (0.0-6.0) 10/22/18 19:10 Heparin-induced Plt Ab Negative (Negative) 10/30/18 13:58 UF Heparin High Dose 0 % Release 05/30/19 13:58 KIMO UFH Low Dose 0.1 0 % Release 10/30/18 13:58 KIMO UFH Low Dose 0.5 0 % Release 10/30/18 13:58 - Imaging and Cardiology EKG: report reviewed, image reviewed Chest x-ray: report reviewed, image reviewed CT scan - chest: report reviewed, image reviewed Active Medications - Current Medications Current Medications: Generic Name Dose Route Start Last Admin Trade Name Freq PRN Reason Stop Dose Admin Acetaminophen 650 mg 10/22/18 20:10 11/22/18 09:34 Tylenol PO 650 mg Q4H PRN Administration Pain MILD(1-3)/Fever >100.5/PORTER Lipase/Protease/Amylase 1 each 11/05/18 10:13 Pancremaranda Simpson 10,500 Unit FEEDTUBE PRN PRN For Clogged Feeding Tube Arformoterol Tartrate 15 mcg 11/05/18 20:00 11/24/18 08:32 Brovana Nebu IH 15 mcg Q12HRT RICK Administration Budesonide 0.5 mg 10/23/18 08:00 11/24/18 08:32 Pulmicort IH 0.5 mg Q12HRT RICK Administration Clonazepam 1 mg 11/18/18 11:00 11/24/18 14:00 Klonopin PO 1 mg TID RICK Administration Dextrose 50 ml 10/26/18 23:40 10/27/18 00:20 D50w (25gm) Syringe IV 50 ml PRN PRN Administration Hypoglycemia Enoxaparin Sodium 40 mg 11/14/18 22:00 11/23/18 21:40 Lovenox SUB-Q 40 mg QDAY@2200 RICK Administration Gabapentin 600 mg 11/12/18 10:00 11/24/18 14:00 Neurontin PO 600 mg Q8HR RICK Administration Hydrophilic Ointment 1 applic 11/07/18 09:14 Vaseline Lip Therapy TP Q2HR PRN Dry Lips Insulin Human Isoph/Insulin Regular 12 unit 11/10/18 22:00 11/24/18 10:00 Humulin 70/30 SUB-Q 12 unit BID RICK Administration Insulin Human Lispro 0 unit 10/29/18 12:00 11/24/18 17:54 Humalog SUB-Q 3 unit Q6HR RICK Administration Protocol Lansoprazole 30 mg 11/17/18 10:00 11/24/18 09:47 Prevacid Solutab FEEDTUBE 30 mg QDAY RICK Administration Multi-Ingred Cream/Lotion/Oil/Oint 1 applic 11/07/18 09:14 Artificial Tears Ophth Oint OU Q4HR PRN Dry Eye(s) Oxycodone/Acetaminophen 1 tab 11/24/18 10:16 11/24/18 14:45 Percocet 5/325 PO 1 tab Q4H PRN Administration Pain, Moderate (4-6) Phenol 1 spray 10/28/18 10:16 Chloraseptic MM PRN PRN Sore Throat Propranolol HCl 20 mg 11/18/18 14:00 11/24/18 14:00 Inderal PO 20 mg TID RICK Administration Quetiapine Fumarate 300 mg 11/12/18 10:00 11/24/18 09:47 Seroquel PO 300 mg DAILY RICK Administration Simple Syrup 15 ml 11/05/18 10:13 Simple Syrup FEEDTUBE PRN PRN Hypoglycemia Simple Syrup 30 ml 11/05/18 10:13 Simple Syrup FEEDTUBE PRN PRN Hypoglycemia Sodium Bicarbonate 325 mg 11/05/18 10:13 Sodium Bicarbonate FEEDTUBE PRN PRN For Clogged Feeding Tube Sodium Chloride 10 ml 10/22/18 22:00 11/24/18 09:50 Sodium Chloride Flush Syringe 10 Ml IV 10 ml BID RICK Administration Nutrition/Malnutrition Assess - Dietary Evaluation Nutrition/Malnutrition Findings: Nutrition Notes Start: 10/23/18 17:03 Freq: Status: Active Protocol: Document 11/21/18 17:45 RM (Rec: 11/21/18 17:51 RM [email or web address]) Nutrition Notes Initial or Follow up Reassessment Current Diagnosis COPD,Sepsis,Hypertension, Respiratory Failure Other Pertinent Diagnosis Gastric peforation, bilat pneu Current Diet Promote at 70 ml/hr Labs/Tests Na 148 Pertinent Medications Solu-Medrol Height 5 ft 3 in Weight 61.1 kg [place] Body Weight (kg) 52.27 BMI 23.8 Subjective/Other Information Observed Promote infusing at goal rate. Pt still having diarrhea. Per nurse pt tolerating TF. During rounds MD requested increase of water flush to adress hypernatremia. Percent of energy/protein needs met: 100%/100% Burn Absent Trauma Absent #1 Nutrition Diagnosis Inadequate oral intake Diagnosis Progress(for reassessment Continues documentation) Is patient on ventilator? Yes Is Patient Ambulatory and/or Out of Bed No REE-([facility]-confined to bed) 1314.324 Kcal/Kg value to use for calculation 25 Approximate Energy Requirements Using 1528 kcal/Kg Calculation Used for Recommendations [facility] Additional Notes Pro needs 1.2-2g/kg (based on UBW): 60-100g/day Fluid needs 1ml/kcal Nutrition Intervention Nutrition Support: Promote 70 ml/hr. Water flush of 200 ms q 4 hrs or per MD until hyperatremia resolves. Water flush of 50 ml q 4 hrs once hypernatremia resolves. Kcal 1,680 Protein (gm) 105 Carbohydrates (gm) 93 Fat (gm) 45 Fluid (mL) 1,410 Fiber (gm) 0 Goal #1 TF tolerance Goal #2 TF to continue to meet at least 75% energy and pro needs Follow-Up By: 11/26/18 Additional Comments Follow for TF tolerance, Na lab
[2018-11-24] MEDS: LOVENOX SUB-Q SCH (21:00)
[2018-11-25] MEDS: HumaLOG SUB-Q SCH ×2 (00:06→06:35)
[2018-11-25 06:05] LABS: Hemoglobin 9.6 gm/dl (10.1-14.3); Mean Corpuscular HGB Conc 33 % (30-34); Mean Corpuscular Volume 98 fl (79-97); Platelet Count 180 K/mm3 (140-440); Red Blood Count 2.96 M/mm3 (3.65-5.03); Red Cell Distribution Width 17.6 % (13.2-15.2)
[2018-11-25 06:28] LABS: BUN/Creatinine Ratio 90; Blood Urea Nitrogen 27 mg/dL (7-17); Calcium 7.9 mg/dL (8.4-10.2); Hemolysis Index 3
[2018-11-25] MEDS: NEURONTIN PO SCH (06:35)
[2018-11-25 07:03] LABS: Basophils % (Manual) 0 % (0.0-1.8); Eosinophils % (Manual) 0 % (0.0-4.3); Total Cells Counted 100
[2018-11-25 07:04] LABS: Basophilic Stippling Rare; Giant Platelets Rare; Macrocytosis 1+; Stomatocytes Few
[2018-11-25] MEDS: BROVANA NEBU IH SCH (07:22)
[2018-11-25] MEDS: PULMICORT IH SCH (07:22)
--- NOTE | 2018-11-25 08:07 | Hem/Onc Progress Note ---
Assessment and Plan 1. h/o Thrombocytopenia, likely medication, pts medical status related. better 2. History of colon surgery in the past, details not clear. 3. History of bowel issues. Seen by surgical team. - pSBO and "contained" gastric perforation 4. h/o TPN. 5. h/o Ayla, ID following. 6. Chronic obstructive pulmonary disease. 7. Hypertension. 8. History of lupus. 9. Aspiration pneumonia. 10. The patient was intubated. 11. Renal impairment. 11/25 pt on vent - trach - pulm following anemia - h/o b12 inj at home - monthly - s/p same s/p IV iron - Patient Problems (1) Thrombocytopenia Status: Acute Subjective Date of service: 11/25/18 Principal diagnosis: anemia Interval history: trach - T tube Objective - Exam Narrative Exam: Pain none General appearance no acute distress Performance status - completely disabled Eyes EOM intact ENT hearing intact/ Clear oral mucosa/ others LNs cervical not palpable Neck - trache+ Respiratory Normal Breath sounds - diminished b/l CVS S1 S2 + Extremities normal temperature General GI Soft non tender Rectal deferred Female - deferred Skin warm Musculoskeletal generalized weakness Neurologically moves all extremities - Constitutional Vitals: Last Vital Signs Temp 98.9 F 11/25/18 04:00 Pulse 104 H 11/25/18 07:43 Resp 21 11/25/18 07:43 BP 110/69 11/25/18 07:43 Pulse Ox 97 11/25/18 07:56 - Labs Lab Results: Laboratory Results - last 24 hr 11/24/18 11/24/18 11/24/18 06:45 11:52 13:03 WBC RBC Hgb Hct MCV MCH MCHC RDW Plt Count Add Manual Diff Total Counted Seg Neuts % (Manual) Band Neutrophils % Lymphocytes % (Manual) Reactive Lymphs % (Man) Monocytes % (Manual) Eosinophils % (Manual) Basophils % (Manual) Metamyelocytes % Myelocytes % Promyelocytes % Blast Cells % Nucleated RBC % Seg Neutrophils # Man Band Neutrophils # Lymphocytes # (Manual) Abs React Lymphs (Man) Monocytes # (Manual) Eosinophils # (Manual) Basophils # (Manual) Metamyelocytes # Myelocytes # Promyelocytes # Blast Cells # WBC Morphology Hypersegmented Neuts Hyposegmented Neuts Hypogranular Neuts Smudge Cells Toxic Granulation Toxic Vacuolation Dohle Bodies Pelger-Huet Anomaly Magda Rods Platelet Estimate Clumped Platelets Plt Clumps, EDTA Large Platelets Giant Platelets Platelet Satelliting Plt Morphology Comment RBC Morphology Dimorphic RBCs Polychromasia Hypochromasia Poikilocytosis Basophilic Stippling Anisocytosis Microcytosis Macrocytosis Spherocytes Pappenheimer Bodies Sickle Cells Target Cells Tear Drop Cells Ovalocytes Stomatocytes Helmet Cells [place] Bodies Manning Rings [place] Cells Bite Cells Crenated Cell Elliptocytes Acanthocytes (Spur) Rouleaux Hemoglobin C Crystals Schistocytes Malaria parasites Janes Bodies Hem Pathologist Commnt POC ABG pH 7.455 H POC ABG pCO2 43.8 POC ABG pO2 67 L POC ABG HCO3 30.8 POC ABG Total CO2 32 POC ABG O2 Sat 94 POC ABG Base Excess 7 FiO2 28 Sodium 144 Potassium 4.7 Chloride 102.5 Carbon Dioxide 29 Anion Gap 17 BUN Creatinine Estimated GFR BUN/Creatinine Ratio Glucose 116 H POC Glucose 161 H Calcium 11/24/18 11/24/18 11/24/18 17:28 21:16 23:59 WBC RBC Hgb Hct MCV MCH MCHC RDW Plt Count Add Manual Diff Total Counted Seg Neuts % (Manual) Band Neutrophils % Lymphocytes % (Manual) Reactive Lymphs % (Man) Monocytes % (Manual) Eosinophils % (Manual) Basophils % (Manual) Metamyelocytes % Myelocytes % Promyelocytes % Blast Cells % Nucleated RBC % Seg Neutrophils # Man Band Neutrophils # Lymphocytes # (Manual) Abs React Lymphs (Man) Monocytes # (Manual) Eosinophils # (Manual) Basophils # (Manual) Metamyelocytes # Myelocytes # Promyelocytes # Blast Cells # WBC Morphology Hypersegmented Neuts Hyposegmented Neuts Hypogranular Neuts Smudge Cells Toxic Granulation Toxic Vacuolation Dohle Bodies Pelger-Huet Anomaly Magda Rods Platelet Estimate Clumped Platelets Plt Clumps, EDTA Large Platelets Giant Platelets Platelet Satelliting Plt Morphology Comment RBC Morphology Dimorphic RBCs Polychromasia Hypochromasia Poikilocytosis Basophilic Stippling Anisocytosis Microcytosis Macrocytosis Spherocytes Pappenheimer Bodies Sickle Cells Target Cells Tear Drop Cells Ovalocytes Stomatocytes Helmet Cells [place] Bodies Manning Rings [place] Cells Bite Cells Crenated Cell Elliptocytes Acanthocytes (Spur) Rouleaux Hemoglobin C Crystals Schistocytes Malaria parasites Janes Bodies Hem Pathologist Commnt POC ABG pH POC ABG pCO2 POC ABG pO2 POC ABG HCO3 POC ABG Total CO2 POC ABG O2 Sat POC ABG Base Excess FiO2 Sodium Potassium Chloride Carbon Dioxide Anion Gap BUN Creatinine Estimated GFR BUN/Creatinine Ratio Glucose POC Glucose 205 H 181 H 121 H Calcium 11/25/18 11/25/18 11/25/18 05:45 05:45 05:58 WBC 21.2 H RBC 2.96 L Hgb 9.6 L Hct 29.0 L MCV 98 H MCH 32 MCHC 33 RDW 17.6 H Plt Count 180 Add Manual Diff Complete Total Counted 100 Seg Neuts % (Manual) 94.0 H Band Neutrophils % 0 Lymphocytes % (Manual) 4.0 L Reactive Lymphs % (Man) 0 Monocytes % (Manual) 2.0 Eosinophils % (Manual) 0 Basophils % (Manual) 0 Metamyelocytes % 0 Myelocytes % 0 Promyelocytes % 0 Blast Cells % 0 Nucleated RBC % Not Reportable Seg Neutrophils # Man 19.9 H Band Neutrophils # 0.0 Lymphocytes # (Manual) 0.8 L Abs React Lymphs (Man) 0.0 Monocytes # (Manual) 0.4 Eosinophils # (Manual) 0.0 Basophils # (Manual) 0.0 Metamyelocytes # 0.0 Myelocytes # 0.0 Promyelocytes # 0.0 Blast Cells # 0.0 WBC Morphology Not Reportable Hypersegmented Neuts Not Reportable Hyposegmented Neuts Not Reportable Hypogranular Neuts Not Reportable Smudge Cells Not Reportable Toxic Granulation Not Reportable Toxic Vacuolation Not Reportable Dohle Bodies Not Reportable Pelger-Huet Anomaly Not Reportable Magda Rods Not Reportable Platelet Estimate Not Reportable Clumped Platelets Not Reportable Plt Clumps, EDTA Not Reportable Large Platelets Not Reportable Giant Platelets Rare Platelet Satelliting Not Reportable Plt Morphology Comment Not Reportable RBC Morphology Not Reportable Dimorphic RBCs Not Reportable Polychromasia Not Reportable Hypochromasia Not Reportable Poikilocytosis Not Reportable Basophilic Stippling Rare Anisocytosis Not Reportable Microcytosis Not Reportable Macrocytosis 1+ Spherocytes Not Reportable Pappenheimer Bodies Not Reportable Sickle Cells Not Reportable Target Cells Not Reportable Tear Drop Cells Not Reportable Ovalocytes Not Reportable Stomatocytes Few Helmet Cells Not Reportable [place] Bodies Not Reportable Manning Rings Not Reportable [place] Cells Not Reportable Bite Cells Not Reportable Crenated Cell Not Reportable Elliptocytes Not Reportable Acanthocytes (Spur) Not Reportable Rouleaux Not Reportable Hemoglobin C Crystals Not Reportable Schistocytes Not Reportable Malaria parasites Not Reportable Janes Bodies Not Reportable Hem Pathologist Commnt No POC ABG pH POC ABG pCO2 POC ABG pO2 POC ABG HCO3 POC ABG Total CO2 POC ABG O2 Sat POC ABG Base Excess FiO2 Sodium 140 Potassium 4.4 Chloride 100.0 Carbon Dioxide 32 H Anion Gap 12 BUN 27 H Creatinine 0.3 L Estimated GFR > 60 BUN/Creatinine Ratio 90 Glucose 82 POC Glucose 92 Calcium 7.9 L Medications & Allergies - Medications Allergies/Adverse Reactions: Allergies Sulfa (Sulfonamide Antibiotics) Allergy (Intermediate, Verified 10/22/18 16:30) Rash metoclopramide HCl [From Reglan] Allergy (Verified 10/22/18 16:30) Dizziness prochlorperazine [From Compazine] Allergy (Verified 10/22/18 16:30) NECK STIFFNESS Home Medications: Home Medications Medication Instructions Recorded Confirmed Last Taken Type Acetaminophen [Acetaminophen TAB] 650 mg PO Q4H PRN tablet 11/25/18 Unknown Rx Arformoterol Nebu [Brovana Nebu] 15 mcg IH Q12HRT ml 11/25/18 Unknown Rx Budesonide [Pulmicort Respules] 0.5 mg IH Q12HRT nebu 11/25/18 Unknown Rx Enoxaparin [Lovenox] 40 mg SUB-Q QDAY@2200 syringe 11/25/18 Unknown Rx Gabapentin [Neurontin 250 mg/5 ml] 600 mg PO Q8HR oral.liqd 11/25/18 Unknown Rx Insulin NPH/Regular [NovoLIN 70/30] 12 unit SUB-Q BID units 11/25/18 Unknown Rx Lansoprazole Solutab [Prevacid 30 mg FEEDTUBE QDAY tab.rapdis 11/25/18 Unknown Rx Solutab] Lipase/Protease/Amylase [Pancreaze 1 each FEEDTUBE PRN PRN capsule 11/25/[address],500 Unit] Lispro Insulin [HumaLOG] 0 unit SUB-Q Q6HR units 11/25/18 Unknown Rx Min Oil/Petrolatum [Artificial 1 applic OU Q4HR PRN tube 11/25/18 Unknown Rx Tears Ophth Oint] Petrolatum,White [Vaseline Lip 1 applic TP Q2HR PRN tube 11/25/18 Unknown Rx Therapy] Phenol 1.4% [Chloraseptic] 1 spray MM PRN PRN bottle 11/25/18 Unknown Rx Propranolol [Inderal] 20 mg PO TID tablet 11/25/18 Unknown Rx QUEtiapine [SEROquel] 300 mg PO DAILY tablet 11/25/18 Unknown Rx Simple Syrup 15 ml FEEDTUBE PRN PRN oral.liqd 11/25/18 Unknown Rx Simple Syrup 30 ml FEEDTUBE PRN PRN oral.liqd 11/25/18 Unknown Rx Sodium Bicarbonate 325 mg FEEDTUBE PRN PRN tablet 11/25/18 Unknown Rx oxyCODONE /ACETAMINOPHEN [Percocet 1 tab PO Q4H PRN tablet 11/25/18 Unknown Rx 5/325 mg] Active Medications: Generic Name Dose Route Start Last Admin Trade Name Freq PRN Reason Stop Dose Admin Acetaminophen 650 mg 10/22/18 20:10 11/22/18 09:34 Tylenol PO 650 mg Q4H PRN Administration Pain MILD(1-3)/Fever >100.5/PORTER Lipase/Protease/Amylase 1 each 11/05/18 10:13 Pancreaztr Simpson 10,500 Unit FEEDTUBE PRN PRN For Clogged Feeding Tube Arformoterol Tartrate 15 mcg 11/05/18 20:00 11/25/18 07:22 Brovana Nebu IH 15 mcg Q12HRT RICK Administration Budesonide 0.5 mg 10/23/18 08:00 11/25/18 07:22 Pulmicort IH 0.5 mg Q12HRT RICK Administration Clonazepam 1 mg 11/24/18 21:00 11/24/18 20:51 Klonopin PO 1 mg TID RICK Administration Dextrose 50 ml 10/26/18 23:40 10/27/18 00:20 D50w (25gm) Syringe IV 50 ml PRN PRN Administration Hypoglycemia Enoxaparin Sodium 40 mg 11/14/18 22:00 11/24/18 21:00 Lovenox SUB-Q 40 mg QDAY@2200 RICK Administration Gabapentin 600 mg 11/12/18 10:00 11/25/18 06:35 Neurontin PO 600 mg Q8HR RICK Administration Hydrophilic Ointment 1 applic 11/07/18 09:14 Vaseline Lip Therapy TP Q2HR PRN Dry Lips Insulin Human Isoph/Insulin Regular 12 unit 11/10/18 22:00 11/24/18 21:13 Humulin 70/30 SUB-Q 12 unit BID RICK Administration Insulin Human Lispro 0 unit 10/29/18 12:00 11/25/18 06:35 Humalog SUB-Q Not Given Q6HR [facility] Protocol Lansoprazole 30 mg 11/17/18 10:00 11/24/18 09:47 Prevacid Solutab FEEDTUBE 30 mg QDAY RICK Administration Multi-Ingred Cream/Lotion/Oil/Oint 1 applic 11/07/18 09:14 Artificial Tears Ophth Oint OU Q4HR PRN Dry Eye(s) Oxycodone/Acetaminophen 1 tab 11/24/18 10:16 11/24/18 21:12 Percocet 5/325 PO 1 tab Q4H PRN Administration Pain, Moderate (4-6) Phenol 1 spray 10/28/18 10:16 Chloraseptic MM PRN PRN Sore Throat Propranolol HCl 20 mg 11/18/18 14:00 11/24/18 20:51 Inderal PO 20 mg TID RICK Administration Quetiapine Fumarate 300 mg 11/12/18 10:00 11/24/18 09:47 Seroquel PO 300 mg DAILY RICK Administration Simple Syrup 15 ml 11/05/18 10:13 Simple Syrup FEEDTUBE PRN PRN Hypoglycemia Simple Syrup 30 ml 11/05/18 10:13 Simple Syrup FEEDTUBE PRN PRN Hypoglycemia Sodium Bicarbonate 325 mg 11/05/18 10:13 Sodium Bicarbonate FEEDTUBE PRN PRN For Clogged Feeding Tube Sodium Chloride 10 ml 10/22/18 22:00 11/24/18 21:14 Sodium Chloride Flush Syringe 10 Ml IV 10 ml BID RICK Administration
--- NOTE | 2018-11-25 08:53 | Progress Note ---
Assessment and Plan ARF ,failure to wean ,prolonged vent support. Complicated also by anxiety, pain medications/sedatives. Follow sleep, stable breathing when pressure support turned off Sepsis/Fungemia. Some leukocytosis, off antibiotics. Steroids discontinued yesterday Bilateral upper lobe pneumonia, atelectasis. Improved Bilateral pleural effusions with left lower lung atelectasis. Improved. Partial bowel obstruction, perforation. Improved, result Diarrhea. Improved Chronic pain medications, anti-psychotic therapy. Chart review shows increased high demand for both short acting, long-acting narcotics plus benzodiazepines. Concern for drug-seeking behavior at this point triggering delay in ventilator weaning Thrombocytopenia. Improved PAT, tachy-bradycardia episodes. Controlled COPD. controlled Chronic pain/Narcotic dependent Hypokalemia. Corrected Rec Check KUB No big symptomatic complaints reported after discontinue fentanyl and Dilaudid SBT. Oral oxycodone when necessary for pain breakthrough symptoms Monitor leukocytosis, Procalcitonin ordered but unfortunately takes about a week for reports to come back here Continue TPs during the day today. Discussed with RT, we'll set target of end tidal CO2 ~50 mmHg and if noted to ABGs and consider reinitiating pressure support. She might be one of this patient that needs overnight ventilatory support, we'll follow this approach, if the problem persists today. Nutritional support PM&R, Physical therapy Placement Discussed with patient and staff in detail. All questions answered. Critical care time was 31 minutes of [id number] evaluation and coordination of care Subjective Date of service: 11/25/18 Principal diagnosis: respiratory failure, bowel obstruction COPD Interval history: No events overnight. Reportedly initiated back on pressure support after end tidal CO2 reportedly went to 47. No obvious complaints. No fever reported Objective Vital Signs - 12hr 11/24/18 11/24/18 11/24/18 20:51 21:00 21:12 Temperature Pulse Rate 94 H 94 H Pulse Rate [ Anterior Bilateral Throughout] Pulse Rate [ Bilateral] Pulse Rate [ From Monitor] Respiratory 17 19 Rate Respiratory Rate [Anterior Bilateral Throughout] Respiratory Rate [Bilateral ] Blood Pressure 113/53 118/50 O2 Sat by Pulse 99 Oximetry O2 Sat by Pulse Oximetry [ Assessment] 11/24/18 11/24/18 11/24/18 21:30 21:35 22:00 Temperature Pulse Rate 93 H 82 Pulse Rate [ Anterior Bilateral Throughout] Pulse Rate [ Bilateral] Pulse Rate [ From Monitor] Respiratory 20 18 Rate Respiratory Rate [Anterior Bilateral Throughout] Respiratory Rate [Bilateral ] Blood Pressure 115/50 106/40 O2 Sat by Pulse 100 99 Oximetry O2 Sat by Pulse 99 Oximetry [ Assessment] 11/24/18 11/24/18 11/24/18 22:30 23:00 23:30 Temperature Pulse Rate 84 83 83 Pulse Rate [ Anterior Bilateral Throughout] Pulse Rate [ Bilateral] Pulse Rate [ From Monitor] Respiratory 18 20 18 Rate Respiratory Rate [Anterior Bilateral Throughout] Respiratory Rate [Bilateral ] Blood Pressure 105/48 108/46 105/45 O2 Sat by Pulse 97 97 96 Oximetry O2 Sat by Pulse Oximetry [ Assessment] 11/25/18 11/25/18 11/25/18 00:00 00:01 00:03 Temperature 98.8 F Pulse Rate 82 82 83 Pulse Rate [ Anterior Bilateral Throughout] Pulse Rate [ Bilateral] Pulse Rate [ 82 From Monitor] Respiratory 18 Rate Respiratory Rate [Anterior Bilateral Throughout] Respiratory Rate [Bilateral ] Blood Pressure 96/51 108/46 O2 Sat by Pulse 96 98 Oximetry O2 Sat by Pulse Oximetry [ Assessment] 11/25/18 11/25/18 11/25/18 00:30 01:00 01:30 Temperature Pulse Rate 84 82 87 Pulse Rate [ Anterior Bilateral Throughout] Pulse Rate [ Bilateral] Pulse Rate [ From Monitor] Respiratory 18 19 19 Rate Respiratory Rate [Anterior Bilateral Throughout] Respiratory Rate [Bilateral ] Blood Pressure 121/51 111/49 122/41 O2 Sat by Pulse 96 96 96 Oximetry O2 Sat by Pulse Oximetry [ Assessment] 11/25/18 11/25/18 11/25/18 02:00 02:31 03:00 Temperature Pulse Rate 89 90 90 Pulse Rate [ Anterior Bilateral Throughout] Pulse Rate [ Bilateral] Pulse Rate [ From Monitor] Respiratory 17 16 16 Rate Respiratory Rate [Anterior Bilateral Throughout] Respiratory Rate [Bilateral ] Blood Pressure 122/41 121/45 116/48 O2 Sat by Pulse 97 97 96 Oximetry O2 Sat by Pulse Oximetry [ Assessment] 11/25/18 11/25/18 11/25/18 03:31 03:55 04:00 Temperature 98.9 F Pulse Rate 94 H 96 H 94 H Pulse Rate [ Anterior Bilateral Throughout] Pulse Rate [ Bilateral] Pulse Rate [ 94 H From Monitor] Respiratory 17 19 Rate Respiratory Rate [Anterior Bilateral Throughout] Respiratory Rate [Bilateral ] Blood Pressure 111/58 111/58 111/58 O2 Sat by Pulse 95 98 99 Oximetry O2 Sat by Pulse Oximetry [ Assessment] 11/25/18 11/25/18 11/25/18 04:04 04:31 05:01 Temperature Pulse Rate 93 H 94 H Pulse Rate [ Anterior Bilateral Throughout] Pulse Rate [ Bilateral] Pulse Rate [ From Monitor] Respiratory 16 21 Rate Respiratory Rate [Anterior Bilateral Throughout] Respiratory Rate [Bilateral ] Blood Pressure 136/51 136/51 O2 Sat by Pulse 97 94 Oximetry O2 Sat by Pulse 98 Oximetry [ Assessment] 11/25/18 11/25/18 11/25/18 05:31 06:00 06:30 Temperature Pulse Rate 99 H 100 H 97 H Pulse Rate [ Anterior Bilateral Throughout] Pulse Rate [ Bilateral] Pulse Rate [ From Monitor] Respiratory 18 21 20 Rate Respiratory Rate [Anterior Bilateral Throughout] Respiratory Rate [Bilateral ] Blood Pressure 136/51 130/61 110/69 O2 Sat by Pulse 94 93 94 Oximetry O2 Sat by Pulse Oximetry [ Assessment] 11/25/18 11/25/18 11/25/18 07:00 07:22 07:30 Temperature Pulse Rate 104 H 104 H Pulse Rate [ 101 H Anterior Bilateral Throughout] Pulse Rate [ 102 H Bilateral] Pulse Rate [ From Monitor] Respiratory 19 16 Rate Respiratory 22 Rate [Anterior Bilateral Throughout] Respiratory 20 Rate [Bilateral ] Blood Pressure 110/69 128/63 O2 Sat by Pulse 95 93 Oximetry O2 Sat by Pulse Oximetry [ Assessment] 11/25/18 11/25/18 11/25/18 07:43 07:56 08:00 Temperature Pulse Rate 104 H 102 H Pulse Rate [ Anterior Bilateral Throughout] Pulse Rate [ Bilateral] Pulse Rate [ From Monitor] Respiratory 21 21 Rate Respiratory Rate [Anterior Bilateral Throughout] Respiratory Rate [Bilateral ] Blood Pressure 110/69 119/55 O2 Sat by Pulse 95 93 Oximetry O2 Sat by Pulse 97 Oximetry [ Assessment] Constitutional: no acute distress, alert, other (on TPs breathing comfortably) Eyes: non-icteric ENT: other (trach in position) Neck: supple, no JVD Effort: mildly labored Ascultation: Bilateral: clear, diminished breath sounds, rhonchi Percussion: Bilateral: not dull Cardiovascular: regular rate and rhythm Gastrointestinal: hypoactive bowel sounds, non-tender, non-distended, other (surgical wounds clean, no bleeding) Integumentary: normal Extremities: no edema Neurologic: non-focal exam, other (deeply somnolent) Psychiatric: anxious CBC and BMP: 11/25/18 05:45 11/25/18 05:45 ABG, PT/INR, D-dimer: ABG POC ABG pH 7.455 (7.35-7.45) H 11/24/18 13:03 POC ABG pCO2 43.8 (35-45) 11/24/18 13:03 POC ABG pO2 67 (80-105) L 11/24/18 13:03 POC ABG HCO3 30.8 (22-26 mml/L) 11/24/18 13:03 POC ABG Total CO2 32 (23-27mmol/L) 11/24/18 13:03 POC ABG O2 Sat 94 11/24/18 13:03 Abnormal lab findings: Abnormal Labs 10/22/18 10/22/18 10/22/18 15:31 15:54 15:54 WBC 11.5 H RBC 5.35 H Hgb 17.4 H Hct 50.3 H MCV MCH 33 H MCHC 35 H RDW Plt Count Lymph % (Auto) 12.6 L [place] % (Auto) 14.8 H Lymph # [place] # 1.7 H Seg Neutrophils % 72.5 H Seg Neuts % (Manual) Lymphocytes % (Manual) Seg Neutrophils # 8.3 H Seg Neutrophils # Man Lymphocytes # (Manual) POC ABG pH POC ABG pCO2 POC ABG pO2 Sodium 134 L Potassium Chloride 88.1 L Carbon Dioxide BUN 51 H Creatinine 2.1 H Glucose 166 H POC Glucose Calcium Phosphorus Magnesium Iron TIBC Ferritin Alkaline Phosphatase NT-Pro-B Natriuret Pep Total Protein Albumin 3.4 L Lipase 10 L Free T4 10/23/18 10/23/18 10/23/18 04:32 04:32 10:53 WBC RBC Hgb Hct MCV MCH MCHC RDW Plt Count Lymph % (Auto) 10.2 L [place] % (Auto) 14.7 H Lymph # 0.7 L [place] # 1.0 H Seg Neutrophils % 74.9 H Seg Neuts % (Manual) Lymphocytes % (Manual) Seg Neutrophils # Seg Neutrophils # Man Lymphocytes # (Manual) POC ABG pH POC ABG pCO2 POC ABG pO2 Sodium Potassium 3.1 L D 3.5 L Chloride Carbon Dioxide BUN 41 H 37 H Creatinine Glucose 111 H 110 H POC Glucose Calcium 8.1 L 8.1 L Phosphorus Magnesium Iron TIBC Ferritin Alkaline Phosphatase NT-Pro-B Natriuret Pep Total Protein Albumin Lipase Free T4 10/24/18 10/24/18 10/25/18 05:34 05:34 04:51 WBC RBC Hgb Hct MCV MCH MCHC RDW Plt Count Lymph % (Auto) [place] % (Auto) Lymph # [place] # Seg Neutrophils % Seg Neuts % (Manual) Lymphocytes % (Manual) Seg Neutrophils # Seg Neutrophils # Man Lymphocytes # (Manual) POC ABG pH POC ABG pCO2 POC ABG pO2 Sodium Potassium 3.2 L 3.1 L Chloride 109.8 H 114.2 H Carbon Dioxide 17 L D BUN 21 H Creatinine Glucose 134 H 171 H POC Glucose Calcium 7.7 L 7.0 L Phosphorus 0.80 L* Magnesium Iron TIBC Ferritin Alkaline Phosphatase NT-Pro-B Natriuret Pep Total Protein Albumin Lipase Free T4 10/25/18 10/26/18 10/26/18 06:07 02:58 04:57 WBC RBC Hgb Hct MCV 99 H MCH 33 H MCHC RDW Plt Count Lymph % (Auto) [place] % (Auto) Lymph # [place] # Seg Neutrophils % Seg Neuts % (Manual) Lymphocytes % (Manual) Seg Neutrophils # Seg Neutrophils # Man Lymphocytes # (Manual) POC ABG pH 7.090 L 7.320 L POC ABG pCO2 65.0 H 32.8 L POC ABG pO2 76 L Sodium Potassium Chloride Carbon Dioxide BUN Creatinine Glucose POC Glucose Calcium Phosphorus Magnesium Iron TIBC Ferritin Alkaline Phosphatase NT-Pro-B Natriuret Pep Total Protein Albumin Lipase Free T4 10/26/18 10/26/18 10/26/18 06:03 06:03 11:52 WBC 23.8 H RBC Hgb 15.4 H Hct 46.1 H D MCV MCH MCHC RDW Plt Count Lymph % (Auto) [place] % (Auto) Lymph # [place] # Seg Neutrophils % Seg Neuts % (Manual) Lymphocytes % (Manual) Seg Neutrophils # Seg Neutrophils # Man Lymphocytes # (Manual) POC ABG pH POC ABG pCO2 POC ABG pO2 Sodium Potassium Chloride 109.5 H Carbon Dioxide 18 L BUN Creatinine Glucose 128 H POC Glucose 117 H Calcium 8.3 L D Phosphorus Magnesium Iron TIBC Ferritin Alkaline Phosphatase NT-Pro-B Natriuret Pep Total Protein Albumin Lipase Free T4 10/26/18 10/26/18 10/26/18 13:54 17:10 17:32 WBC RBC Hgb Hct MCV MCH MCHC RDW Plt Count Lymph % (Auto) [place] % (Auto) Lymph # [place] # Seg Neutrophils % Seg Neuts % (Manual) Lymphocytes % (Manual) Seg Neutrophils # Seg Neutrophils # Man Lymphocytes # (Manual) POC ABG pH 7.215 L POC ABG pCO2 31.8 L POC ABG pO2 69 L 204 H Sodium Potassium 3.0 L D Chloride 114.5 H Carbon Dioxide 21 L BUN Creatinine Glucose POC Glucose Calcium 7.6 L Phosphorus Magnesium 1.40 L Iron TIBC Ferritin Alkaline Phosphatase NT-Pro-B Natriuret Pep Total Protein Albumin Lipase Free T4 10/26/18 10/27/18 10/27/18 23:13 00:40 01:09 WBC RBC Hgb Hct MCV MCH MCHC RDW Plt Count Lymph % (Auto) [place] % (Auto) Lymph # [place] # Seg Neutrophils % Seg Neuts % (Manual) Lymphocytes % (Manual) Seg Neutrophils # Seg Neutrophils # Man Lymphocytes # (Manual) POC ABG pH POC ABG pCO2 POC ABG pO2 Sodium Potassium 3.4 L Chloride 115.0 H Carbon Dioxide 14 L D BUN Creatinine Glucose 228 H POC Glucose 48 L 264 H Calcium 7.1 L Phosphorus Magnesium Iron TIBC Ferritin Alkaline Phosphatase NT-Pro-B Natriuret Pep Total Protein Albumin Lipase Free T4 10/27/18 10/27/18 10/27/18 05:00 05:00 05:16 WBC 22.5 H RBC Hgb 14.7 H Hct 44.4 H MCV MCH MCHC RDW Plt Count Lymph % (Auto) [place] % (Auto) Lymph # [place] # Seg Neutrophils % Seg Neuts % (Manual) Lymphocytes % (Manual) Seg Neutrophils # Seg Neutrophils # Man Lymphocytes # (Manual) POC ABG pH 7.304 L POC ABG pCO2 POC ABG pO2 116 H Sodium Potassium Chloride 118.4 H Carbon Dioxide 16 L BUN Creatinine Glucose 123 H POC Glucose Calcium 7.7 L Phosphorus Magnesium 2.60 H Iron TIBC Ferritin Alkaline Phosphatase NT-Pro-B Natriuret Pep Total Protein Albumin Lipase Free T4 10/28/18 10/28/18 10/28/18 04:25 04:25 15:37 WBC 23.5 H RBC Hgb Hct MCV MCH MCHC RDW Plt Count Lymph % (Auto) [place] % (Auto) Lymph # [place] # Seg Neutrophils % Seg Neuts % (Manual) Lymphocytes % (Manual) Seg Neutrophils # Seg Neutrophils # Man Lymphocytes # (Manual) POC ABG pH POC ABG pCO2 POC ABG pO2 Sodium 147 H Potassium Chloride 116.9 H Carbon Dioxide 16 L BUN 23 H Creatinine Glucose POC Glucose 114 H Calcium 8.0 L Phosphorus Magnesium Iron TIBC Ferritin Alkaline Phosphatase NT-Pro-B Natriuret Pep Total Protein Albumin Lipase Free T4 10/28/18 10/28/18 10/28/18 20:33 22:07 23:31 WBC RBC Hgb Hct MCV MCH MCHC RDW Plt Count Lymph % (Auto) [place] % (Auto) Lymph # [place] # Seg Neutrophils % Seg Neuts % (Manual) Lymphocytes % (Manual) Seg Neutrophils # Seg Neutrophils # Man Lymphocytes # (Manual) POC ABG pH 7.202 L 7.235 L POC ABG pCO2 POC ABG pO2 71 L Sodium Potassium Chloride Carbon Dioxide BUN Creatinine Glucose POC Glucose 207 H Calcium Phosphorus Magnesium Iron TIBC Ferritin Alkaline Phosphatase NT-Pro-B Natriuret Pep Total Protein Albumin Lipase Free T4 10/29/18 10/29/18 10/29/18 04:30 04:30 05:26 WBC 21.1 H RBC Hgb Hct MCV MCH MCHC RDW Plt Count Lymph % (Auto) [place] % (Auto) Lymph # [place] # Seg Neutrophils % Seg Neuts % (Manual) 97.0 H Lymphocytes % (Manual) 3.0 L Seg Neutrophils # Seg Neutrophils # Man 20.5 H Lymphocytes # (Manual) 0.6 L POC ABG pH 7.305 L POC ABG pCO2 30.5 L POC ABG pO2 75 L Sodium 147 H Potassium 3.5 L Chloride 120.0 H Carbon Dioxide 17 L BUN 30 H Creatinine Glucose 246 H POC Glucose Calcium 7.9 L Phosphorus Magnesium Iron TIBC Ferritin Alkaline Phosphatase NT-Pro-B Natriuret Pep Total Protein Albumin Lipase Free T4 10/29/18 10/29/18 10/29/18 05:36 11:39 18:00 WBC RBC Hgb Hct MCV MCH MCHC RDW Plt Count Lymph % (Auto) [place] % (Auto) Lymph # [place] # Seg Neutrophils % Seg Neuts % (Manual) Lymphocytes % (Manual) Seg Neutrophils # Seg Neutrophils # Man Lymphocytes # (Manual) POC ABG pH POC ABG pCO2 POC ABG pO2 Sodium Potassium Chloride Carbon Dioxide BUN Creatinine Glucose POC Glucose 204 H 224 H 221 H Calcium Phosphorus Magnesium Iron TIBC Ferritin Alkaline Phosphatase NT-Pro-B Natriuret Pep Total Protein Albumin Lipase Free T4 10/29/18 10/30/18 10/30/18 23:17 05:00 05:00 WBC 21.4 H RBC Hgb Hct MCV MCH MCHC RDW Plt Count 134 L Lymph % (Auto) [place] % (Auto) Lymph # [place] # Seg Neutrophils % Seg Neuts % (Manual) 97.0 H Lymphocytes % (Manual) 3.0 L Seg Neutrophils # Seg Neutrophils # Man 20.8 H Lymphocytes # (Manual) 0.6 L POC ABG pH POC ABG pCO2 POC ABG pO2 Sodium 148 H Potassium 3.1 L Chloride 120.3 H Carbon Dioxide 18 L BUN 31 H Creatinine Glucose 205 H POC Glucose 181 H Calcium 8.0 L Phosphorus Magnesium Iron TIBC Ferritin Alkaline Phosphatase NT-Pro-B Natriuret Pep Total Protein Albumin Lipase Free T4 10/30/18 10/30/18 10/30/18 05:14 05:25 05:26 WBC RBC Hgb Hct MCV MCH MCHC RDW Plt Count Lymph % (Auto) [place] % (Auto) Lymph # [place] # Seg Neutrophils % Seg Neuts % (Manual) Lymphocytes % (Manual) Seg Neutrophils # Seg Neutrophils # Man Lymphocytes # (Manual) POC ABG pH 7.296 L 7.245 L POC ABG pCO2 31.1 L POC ABG pO2 54 L 59 L Sodium Potassium Chloride Carbon Dioxide BUN Creatinine Glucose POC Glucose 199 H Calcium Phosphorus Magnesium Iron TIBC Ferritin Alkaline Phosphatase NT-Pro-B Natriuret Pep Total Protein Albumin Lipase Free T4 10/30/18 10/30/18 10/31/18 13:23 18:25 00:22 WBC RBC Hgb Hct MCV MCH MCHC RDW Plt Count Lymph % (Auto) [place] % (Auto) Lymph # [place] # Seg Neutrophils % Seg Neuts % (Manual) Lymphocytes % (Manual) Seg Neutrophils # Seg Neutrophils # Man Lymphocytes # (Manual) POC ABG pH POC ABG pCO2 POC ABG pO2 Sodium Potassium Chloride Carbon Dioxide BUN Creatinine Glucose POC Glucose 146 H 158 H 162 H Calcium Phosphorus Magnesium Iron TIBC Ferritin Alkaline Phosphatase NT-Pro-B Natriuret Pep Total Protein Albumin Lipase Free T4 10/31/18 10/31/18 10/31/18 04:39 05:14 07:05 WBC RBC Hgb Hct MCV MCH MCHC RDW Plt Count Lymph % (Auto) [place] % (Auto) Lymph # [place] # Seg Neutrophils % Seg Neuts % (Manual) Lymphocytes % (Manual) Seg Neutrophils # Seg Neutrophils # Man Lymphocytes # (Manual) POC ABG pH 7.238 L POC ABG pCO2 POC ABG pO2 Sodium Potassium Chloride 115.8 H Carbon Dioxide 18 L BUN 39 H Creatinine 1.3 H Glucose 167 H POC Glucose 145 H Calcium 7.5 L Phosphorus 1.80 L Magnesium Iron TIBC Ferritin Alkaline Phosphatase NT-Pro-B Natriuret Pep Total Protein Albumin Lipase Free T4 10/31/18 10/31/18 10/31/18 10:43 12:03 17:00 WBC RBC Hgb Hct MCV MCH MCHC RDW Plt Count Lymph % (Auto) [place] % (Auto) Lymph # [place] # Seg Neutrophils % Seg Neuts % (Manual) Lymphocytes % (Manual) Seg Neutrophils # Seg Neutrophils # Man Lymphocytes # (Manual) POC ABG pH 7.304 L POC ABG pCO2 33.3 L POC ABG pO2 Sodium Potassium Chloride Carbon Dioxide BUN Creatinine Glucose POC Glucose 159 H Calcium Phosphorus Magnesium Iron TIBC Ferritin Alkaline Phosphatase NT-Pro-B Natriuret Pep Total Protein Albumin Lipase Free T4 0.49 L 10/31/18 11/01/18 11/01/18 17:00 00:44 05:27 WBC RBC Hgb Hct MCV MCH MCHC RDW Plt Count Lymph % (Auto) [place] % (Auto) Lymph # [place] # Seg Neutrophils % Seg Neuts % (Manual) Lymphocytes % (Manual) Seg Neutrophils # Seg Neutrophils # Man Lymphocytes # (Manual) POC ABG pH 7.248 L POC ABG pCO2 34.8 L POC ABG pO2 135 H Sodium Potassium Chloride Carbon Dioxide BUN Creatinine Glucose POC Glucose 127 H 118 H Calcium Phosphorus Magnesium Iron TIBC Ferritin Alkaline Phosphatase NT-Pro-B Natriuret Pep Total Protein Albumin Lipase Free T4 11/01/18 11/01/18 11/01/18 06:40 06:40 06:53 WBC 18.9 H RBC 3.63 L Hgb Hct MCV MCH MCHC RDW Plt Count 64 L Lymph % (Auto) [place] % (Auto) Lymph # [place] # Seg Neutrophils % Seg Neuts % (Manual) 98.0 H Lymphocytes % (Manual) 1.0 L Seg Neutrophils # Seg Neutrophils # Man 18.5 H Lymphocytes # (Manual) 0.2 L POC ABG pH POC ABG pCO2 POC ABG pO2 Sodium Potassium 3.5 L Chloride 114.2 H Carbon Dioxide 17 L BUN 49 H Creatinine Glucose 107 H POC Glucose 127 H Calcium 7.3 L Phosphorus Magnesium 1.60 L Iron TIBC Ferritin Alkaline Phosphatase NT-Pro-B Natriuret Pep Total Protein Albumin Lipase Free T4 11/01/18 11/01/18 11/01/18 11:49 13:13 17:24 WBC RBC Hgb Hct MCV MCH MCHC RDW Plt Count Lymph % (Auto) [place] % (Auto) Lymph # [place] # Seg Neutrophils % Seg Neuts % (Manual) Lymphocytes % (Manual) Seg Neutrophils # Seg Neutrophils # Man Lymphocytes # (Manual) POC ABG pH POC ABG pCO2 POC ABG pO2 182 H Sodium Potassium Chloride Carbon Dioxide BUN Creatinine Glucose POC Glucose 134 H 111 H Calcium Phosphorus Magnesium Iron TIBC Ferritin Alkaline Phosphatase NT-Pro-B Natriuret Pep Total Protein Albumin Lipase Free T4 11/01/18 11/02/18 11/02/18 23:07 04:32 05:00 WBC RBC Hgb Hct MCV MCH MCHC RDW Plt Count Lymph % (Auto) [place] % (Auto) Lymph # [place] # Seg Neutrophils % Seg Neuts % (Manual) Lymphocytes % (Manual) Seg Neutrophils # Seg Neutrophils # Man Lymphocytes # (Manual) POC ABG pH 7.244 L POC ABG pCO2 33.2 L POC ABG pO2 123 H Sodium Potassium 3.0 L Chloride 114.1 H Carbon Dioxide 15 L BUN 47 H Creatinine Glucose 127 H POC Glucose 123 H Calcium 7.7 L Phosphorus Magnesium Iron TIBC Ferritin Alkaline Phosphatase NT-Pro-B Natriuret Pep Total Protein Albumin Lipase Free T4 11/02/18 11/02/18 11/02/18 05:00 05:29 11:27 WBC RBC Hgb Hct MCV MCH MCHC RDW Plt Count Lymph % (Auto) [place] % (Auto) Lymph # [place] # Seg Neutrophils % Seg Neuts % (Manual) Lymphocytes % (Manual) Seg Neutrophils # Seg Neutrophils # Man Lymphocytes # (Manual) POC ABG pH POC ABG pCO2 POC ABG pO2 Sodium Potassium Chloride Carbon Dioxide BUN Creatinine Glucose POC Glucose 118 H 137 H Calcium Phosphorus Magnesium 1.60 L Iron TIBC Ferritin Alkaline Phosphatase NT-Pro-B Natriuret Pep Total Protein Albumin Lipase Free T4 11/02/18 11/02/18 11/03/18 12:53 23:35 04:14 WBC RBC Hgb Hct MCV MCH MCHC RDW Plt Count Lymph % (Auto) [place] % (Auto) Lymph # [place] # Seg Neutrophils % Seg Neuts % (Manual) Lymphocytes % (Manual) Seg Neutrophils # Seg Neutrophils # Man Lymphocytes # (Manual) POC ABG pH POC ABG pCO2 30.3 L POC ABG pO2 134 H 129 H Sodium Potassium Chloride Carbon Dioxide BUN Creatinine Glucose POC Glucose 115 H Calcium Phosphorus Magnesium Iron TIBC Ferritin Alkaline Phosphatase NT-Pro-B Natriuret Pep Total Protein Albumin Lipase Free T4 11/03/18 11/03/18 11/03/18 05:34 11:30 11:30 WBC 16.4 H RBC 3.50 L Hgb Hct MCV MCH MCHC RDW Plt Count 136 L D Lymph % (Auto) [place] % (Auto) Lymph # [place] # Seg Neutrophils % Seg Neuts % (Manual) 97.0 H Lymphocytes % (Manual) 2.0 L Seg Neutrophils # Seg Neutrophils # Man 15.9 H Lymphocytes # (Manual) 0.3 L POC ABG pH POC ABG pCO2 POC ABG pO2 Sodium Potassium 3.1 L Chloride 110.4 H Carbon Dioxide 17 L BUN 41 H Creatinine Glucose 129 H POC Glucose 116 H Calcium 7.7 L Phosphorus Magnesium 1.60 L Iron TIBC Ferritin Alkaline Phosphatase NT-Pro-B Natriuret Pep Total Protein 4.2 L Albumin 1.2 L Lipase Free T4 11/03/18 11/03/18 11/03/18 12:01 17:35 21:37 WBC RBC Hgb Hct MCV MCH MCHC RDW Plt Count Lymph % (Auto) [place] % (Auto) Lymph # [place] # Seg Neutrophils % Seg Neuts % (Manual) Lymphocytes % (Manual) Seg Neutrophils # Seg Neutrophils # Man Lymphocytes # (Manual) POC ABG pH POC ABG pCO2 POC ABG pO2 Sodium Potassium Chloride Carbon Dioxide BUN Creatinine Glucose POC Glucose 132 H 132 H 126 H Calcium Phosphorus Magnesium Iron TIBC Ferritin Alkaline Phosphatase NT-Pro-B Natriuret Pep Total Protein Albumin Lipase Free T4 11/03/18 11/04/18 11/04/18 23:30 05:14 05:15 WBC RBC Hgb Hct MCV MCH MCHC RDW Plt Count Lymph % (Auto) [place] % (Auto) Lymph # [place] # Seg Neutrophils % Seg Neuts % (Manual) Lymphocytes % (Manual) Seg Neutrophils # Seg Neutrophils # Man Lymphocytes # (Manual) POC ABG pH POC ABG pCO2 30.9 L POC ABG pO2 192 H Sodium Potassium Chloride Carbon Dioxide BUN Creatinine Glucose POC Glucose 115 H 123 H Calcium Phosphorus Magnesium Iron TIBC Ferritin Alkaline Phosphatase NT-Pro-B Natriuret Pep Total Protein Albumin Lipase Free T4 11/04/18 11/04/18 11/04/18 09:39 09:39 11:43 WBC 15.2 H RBC 3.18 L Hgb Hct 29.9 L MCV MCH MCHC RDW Plt Count Lymph % (Auto) [place] % (Auto) Lymph # [place] # Seg Neutrophils % Seg Neuts % (Manual) 98.0 H Lymphocytes % (Manual) 1.0 L Seg Neutrophils # Seg Neutrophils # Man 14.9 H Lymphocytes # (Manual) 0.2 L POC ABG pH POC ABG pCO2 POC ABG pO2 Sodium 135 L D Potassium Chloride 109.5 H Carbon Dioxide 16 L BUN 46 H Creatinine Glucose 136 H POC Glucose 138 H Calcium 8.0 L Phosphorus Magnesium Iron TIBC Ferritin Alkaline Phosphatase NT-Pro-B Natriuret Pep Total Protein Albumin Lipase Free T4 11/04/18 11/04/18 11/05/18 17:31 23:42 05:23 WBC RBC Hgb Hct MCV MCH MCHC RDW Plt Count Lymph % (Auto) [place] % (Auto) Lymph # [place] # Seg Neutrophils % Seg Neuts % (Manual) Lymphocytes % (Manual) Seg Neutrophils # Seg Neutrophils # Man Lymphocytes # (Manual) POC ABG pH POC ABG pCO2 POC ABG pO2 Sodium Potassium Chloride Carbon Dioxide BUN Creatinine Glucose POC Glucose 139 H 138 H 148 H Calcium Phosphorus Magnesium Iron TIBC Ferritin Alkaline Phosphatase NT-Pro-B Natriuret Pep Total Protein Albumin Lipase Free T4 11/05/18 11/05/18 11/05/18 05:30 05:30 11:46 WBC 14.2 H RBC 3.12 L Hgb 10.0 L Hct 29.1 L MCV MCH MCHC RDW Plt Count Lymph % (Auto) [place] % (Auto) Lymph # [place] # Seg Neutrophils % Seg Neuts % (Manual) Lymphocytes % (Manual) Seg Neutrophils # Seg Neutrophils # Man Lymphocytes # (Manual) POC ABG pH POC ABG pCO2 POC ABG pO2 Sodium Potassium Chloride Carbon Dioxide 21 L BUN 42 H Creatinine Glucose 125 H POC Glucose 157 H Calcium 7.9 L Phosphorus Magnesium Iron TIBC Ferritin Alkaline Phosphatase NT-Pro-B Natriuret Pep Total Protein Albumin Lipase Free T4 11/05/18 11/05/18 11/05/18 17:09 20:03 23:43 WBC RBC Hgb Hct MCV MCH MCHC RDW Plt Count Lymph % (Auto) [place] % (Auto) Lymph # [place] # Seg Neutrophils % Seg Neuts % (Manual) Lymphocytes % (Manual) Seg Neutrophils # Seg Neutrophils # Man Lymphocytes # (Manual) POC ABG pH POC ABG pCO2 POC ABG pO2 76 L Sodium Potassium Chloride Carbon Dioxide BUN Creatinine Glucose POC Glucose 142 H 204 H Calcium Phosphorus Magnesium Iron TIBC Ferritin Alkaline Phosphatase NT-Pro-B Natriuret Pep Total Protein Albumin Lipase Free T4 11/06/18 11/06/18 11/06/18 04:21 12:14 17:17 WBC RBC Hgb Hct MCV MCH MCHC RDW Plt Count Lymph % (Auto) [place] % (Auto) Lymph # [place] # Seg Neutrophils % Seg Neuts % (Manual) Lymphocytes % (Manual) Seg Neutrophils # Seg Neutrophils # Man Lymphocytes # (Manual) POC ABG pH POC ABG pCO2 POC ABG pO2 Sodium 133 L Potassium Chloride Carbon Dioxide 18 L BUN 47 H Creatinine Glucose 187 H POC Glucose 232 H 199 H Calcium 7.8 L Phosphorus 5.30 H D Magnesium 2.50 H Iron TIBC Ferritin Alkaline Phosphatase NT-Pro-B Natriuret Pep Total Protein Albumin Lipase Free T4 11/06/18 11/06/18 11/07/18 19:46 23:30 00:00 WBC RBC Hgb Hct MCV MCH MCHC RDW Plt Count Lymph % (Auto) [place] % (Auto) Lymph # [place] # Seg Neutrophils % Seg Neuts % (Manual) Lymphocytes % (Manual) Seg Neutrophils # Seg Neutrophils # Man Lymphocytes # (Manual) POC ABG pH 7.317 L POC ABG pCO2 50.3 H POC ABG pO2 58 L 57 L Sodium Potassium Chloride Carbon Dioxide BUN Creatinine Glucose POC Glucose 224 H Calcium Phosphorus Magnesium Iron TIBC Ferritin Alkaline Phosphatase NT-Pro-B Natriuret Pep Total Protein Albumin Lipase Free T4 11/07/18 11/07/18 11/07/18 04:55 04:55 04:55 WBC 25.2 H RBC 3.64 L Hgb Hct MCV MCH MCHC RDW Plt Count Lymph % (Auto) [place] % (Auto) Lymph # [place] # Seg Neutrophils % Seg Neuts % (Manual) Lymphocytes % (Manual) Seg Neutrophils # Seg Neutrophils # Man Lymphocytes # (Manual) POC ABG pH POC ABG pCO2 POC ABG pO2 Sodium Potassium Chloride Carbon Dioxide BUN 54 H Creatinine Glucose 270 H POC Glucose Calcium 7.9 L Phosphorus 5.00 H Magnesium Iron TIBC Ferritin Alkaline Phosphatase NT-Pro-B Natriuret Pep 4507 H Total Protein Albumin Lipase Free T4 11/07/18 11/07/18 11/07/18 05:46 08:08 11:52 WBC RBC Hgb Hct MCV MCH MCHC RDW Plt Count Lymph % (Auto) [place] % (Auto) Lymph # [place] # Seg Neutrophils % Seg Neuts % (Manual) Lymphocytes % (Manual) Seg Neutrophils # Seg Neutrophils # Man Lymphocytes # (Manual) POC ABG pH POC ABG pCO2 47.6 H POC ABG pO2 106 H Sodium Potassium Chloride Carbon Dioxide BUN Creatinine Glucose POC Glucose 266 H 323 H Calcium Phosphorus Magnesium Iron TIBC Ferritin Alkaline Phosphatase NT-Pro-B Natriuret Pep Total Protein Albumin Lipase Free T4 11/07/18 11/07/18 11/07/18 12:29 17:57 23:48 WBC RBC Hgb Hct MCV MCH MCHC RDW Plt Count Lymph % (Auto) [place] % (Auto) Lymph # [place] # Seg Neutrophils % Seg Neuts % (Manual) Lymphocytes % (Manual) Seg Neutrophils # Seg Neutrophils # Man Lymphocytes # (Manual) POC ABG pH POC ABG pCO2 POC ABG pO2 Sodium Potassium Chloride Carbon Dioxide BUN Creatinine Glucose POC Glucose 325 H 286 H 231 H Calcium Phosphorus Magnesium Iron TIBC Ferritin Alkaline Phosphatase NT-Pro-B Natriuret Pep Total Protein Albumin Lipase Free T4 11/08/18 11/08/18 11/08/18 03:58 05:05 05:05 WBC 18.4 H RBC 3.20 L Hgb 10.0 L Hct 29.7 L MCV MCH MCHC RDW Plt Count Lymph % (Auto) [place] % (Auto) Lymph # [place] # Seg Neutrophils % Seg Neuts % (Manual) Lymphocytes % (Manual) Seg Neutrophils # Seg Neutrophils # Man Lymphocytes # (Manual) POC ABG pH 7.524 H POC ABG pCO2 34.3 L POC ABG pO2 Sodium Potassium Chloride Carbon Dioxide BUN 61 H Creatinine Glucose 253 H POC Glucose Calcium 7.6 L Phosphorus Magnesium Iron TIBC Ferritin Alkaline Phosphatase NT-Pro-B Natriuret Pep Total Protein Albumin Lipase Free T4 11/08/18 11/08/18 11/08/18 05:28 11:28 18:21 WBC RBC Hgb Hct MCV MCH MCHC RDW Plt Count Lymph % (Auto) [place] % (Auto) Lymph # [place] # Seg Neutrophils % Seg Neuts % (Manual) Lymphocytes % (Manual) Seg Neutrophils # Seg Neutrophils # Man Lymphocytes # (Manual) POC ABG pH POC ABG pCO2 POC ABG pO2 Sodium Potassium Chloride Carbon Dioxide BUN Creatinine Glucose POC Glucose 295 H 253 H 225 H Calcium Phosphorus Magnesium Iron TIBC Ferritin Alkaline Phosphatase NT-Pro-B Natriuret Pep Total Protein Albumin Lipase Free T4 11/09/18 11/09/18 11/09/18 00:57 04:06 06:06 WBC RBC Hgb Hct MCV MCH MCHC RDW Plt Count Lymph % (Auto) [place] % (Auto) Lymph # [place] # Seg Neutrophils % Seg Neuts % (Manual) Lymphocytes % (Manual) Seg Neutrophils # Seg Neutrophils # Man Lymphocytes # (Manual) POC ABG pH 7.509 H POC ABG pCO2 POC ABG pO2 Sodium Potassium Chloride Carbon Dioxide BUN Creatinine Glucose POC Glucose 218 H 199 H Calcium Phosphorus Magnesium Iron TIBC Ferritin Alkaline Phosphatase NT-Pro-B Natriuret Pep Total Protein Albumin Lipase Free T4 11/09/18 11/09/18 11/09/18 06:51 06:51 12:07 WBC 13.5 H RBC 2.97 L Hgb 9.3 L Hct 27.6 L MCV MCH MCHC RDW Plt Count Lymph % (Auto) [place] % (Auto) Lymph # [place] # Seg Neutrophils % Seg Neuts % (Manual) Lymphocytes % (Manual) Seg Neutrophils # Seg Neutrophils # Man Lymphocytes # (Manual) POC ABG pH POC ABG pCO2 POC ABG pO2 Sodium Potassium Chloride 96.5 L Carbon Dioxide 32 H BUN 58 H Creatinine Glucose 191 H POC Glucose 212 H Calcium 7.5 L Phosphorus Magnesium Iron TIBC Ferritin Alkaline Phosphatase NT-Pro-B Natriuret Pep Total Protein Albumin Lipase Free T4 11/09/18 11/10/18 11/10/18 18:29 00:09 04:21 WBC RBC Hgb Hct MCV MCH MCHC RDW Plt Count Lymph % (Auto) [place] % (Auto) Lymph # [place] # Seg Neutrophils % Seg Neuts % (Manual) Lymphocytes % (Manual) Seg Neutrophils # Seg Neutrophils # Man Lymphocytes # (Manual) POC ABG pH 7.467 H POC ABG pCO2 49.9 H POC ABG pO2 76 L Sodium Potassium Chloride Carbon Dioxide BUN Creatinine Glucose POC Glucose 192 H 214 H Calcium Phosphorus Magnesium Iron TIBC Ferritin Alkaline Phosphatase NT-Pro-B Natriuret Pep Total Protein Albumin Lipase Free T4 11/10/18 11/10/18 11/10/18 04:39 04:39 06:05 WBC 14.3 H RBC 3.09 L Hgb 9.7 L Hct 28.9 L MCV MCH MCHC RDW Plt Count Lymph % (Auto) [place] % (Auto) Lymph # [place] # Seg Neutrophils % Seg Neuts % (Manual) Lymphocytes % (Manual) Seg Neutrophils # Seg Neutrophils # Man Lymphocytes # (Manual) POC ABG pH POC ABG pCO2 POC ABG pO2 Sodium Potassium Chloride 97.5 L Carbon Dioxide 31 H BUN 53 H Creatinine Glucose 196 H POC Glucose 202 H Calcium 7.7 L Phosphorus Magnesium Iron TIBC Ferritin Alkaline Phosphatase NT-Pro-B Natriuret Pep Total Protein Albumin Lipase Free T4 11/10/18 11/10/18 11/11/18 12:32 17:16 00:06 WBC RBC Hgb Hct MCV MCH MCHC RDW Plt Count Lymph % (Auto) [place] % (Auto) Lymph # [place] # Seg Neutrophils % Seg Neuts % (Manual) Lymphocytes % (Manual) Seg Neutrophils # Seg Neutrophils # Man Lymphocytes # (Manual) POC ABG pH POC ABG pCO2 POC ABG pO2 Sodium Potassium Chloride Carbon Dioxide BUN Creatinine Glucose POC Glucose 197 H 200 H 177 H Calcium Phosphorus Magnesium Iron TIBC Ferritin Alkaline Phosphatase NT-Pro-B Natriuret Pep Total Protein Albumin Lipase Free T4 11/11/18 11/11/18 11/11/18 04:43 05:24 05:50 WBC 14.1 H RBC 2.92 L Hgb 9.1 L Hct 27.0 L MCV MCH MCHC RDW Plt Count Lymph % (Auto) [place] % (Auto) Lymph # [place] # Seg Neutrophils % Seg Neuts % (Manual) Lymphocytes % (Manual) Seg Neutrophils # Seg Neutrophils # Man Lymphocytes # (Manual) POC ABG pH POC ABG pCO2 50.1 H POC ABG pO2 Sodium Potassium Chloride Carbon Dioxide BUN Creatinine Glucose POC Glucose 199 H Calcium Phosphorus Magnesium Iron TIBC Ferritin Alkaline Phosphatase NT-Pro-B Natriuret Pep Total Protein Albumin Lipase Free T4 11/11/18 11/11/18 11/11/18 05:50 12:00 17:57 WBC RBC Hgb Hct MCV MCH MCHC RDW Plt Count Lymph % (Auto) [place] % (Auto) Lymph # [place] # Seg Neutrophils % Seg Neuts % (Manual) Lymphocytes % (Manual) Seg Neutrophils # Seg Neutrophils # Man Lymphocytes # (Manual) POC ABG pH POC ABG pCO2 POC ABG pO2 Sodium Potassium 3.5 L Chloride Carbon Dioxide 34 H BUN 47 H Creatinine 0.5 L Glucose 169 H POC Glucose 168 H 194 H Calcium 8.2 L Phosphorus Magnesium Iron TIBC Ferritin Alkaline Phosphatase 142 H NT-Pro-B Natriuret Pep Total Protein 4.4 L Albumin 2.1 L Lipase Free T4 11/11/18 11/12/18 11/12/18 23:26 05:32 09:26 WBC RBC Hgb Hct MCV MCH MCHC RDW Plt Count Lymph % (Auto) [place] % (Auto) Lymph # [place] # Seg Neutrophils % Seg Neuts % (Manual) Lymphocytes % (Manual) Seg Neutrophils # Seg Neutrophils # Man Lymphocytes # (Manual) POC ABG pH POC ABG pCO2 POC ABG pO2 Sodium Potassium Chloride Carbon Dioxide BUN Creatinine Glucose POC Glucose 181 H 186 H 158 H Calcium Phosphorus Magnesium Iron TIBC Ferritin Alkaline Phosphatase NT-Pro-B Natriuret Pep Total Protein Albumin Lipase Free T4 11/12/18 11/12/18 11/12/18 11:42 17:39 23:25 WBC RBC Hgb Hct MCV MCH MCHC RDW Plt Count Lymph % (Auto) [place] % (Auto) Lymph # [place] # Seg Neutrophils % Seg Neuts % (Manual) Lymphocytes % (Manual) Seg Neutrophils # Seg Neutrophils # Man Lymphocytes # (Manual) POC ABG pH POC ABG pCO2 POC ABG pO2 Sodium Potassium Chloride Carbon Dioxide BUN Creatinine Glucose POC Glucose 141 H 183 H 147 H Calcium Phosphorus Magnesium Iron TIBC Ferritin Alkaline Phosphatase NT-Pro-B Natriuret Pep Total Protein Albumin Lipase Free T4 11/13/18 11/13/18 11/13/18 12:16 18:10 21:21 WBC RBC Hgb Hct MCV MCH MCHC RDW Plt Count Lymph % (Auto) [place] % (Auto) Lymph # [place] # Seg Neutrophils % Seg Neuts % (Manual) Lymphocytes % (Manual) Seg Neutrophils # Seg Neutrophils # Man Lymphocytes # (Manual) POC ABG pH POC ABG pCO2 POC ABG pO2 Sodium Potassium Chloride Carbon Dioxide BUN Creatinine Glucose POC Glucose 114 H 127 H 185 H Calcium Phosphorus Magnesium Iron TIBC Ferritin Alkaline Phosphatase NT-Pro-B Natriuret Pep Total Protein Albumin Lipase Free T4 11/13/18 11/14/18 11/14/18 23:11 03:28 03:28 WBC RBC Hgb Hct MCV MCH MCHC RDW Plt Count Lymph % (Auto) [place] % (Auto) Lymph # [place] # Seg Neutrophils % Seg Neuts % (Manual) Lymphocytes % (Manual) Seg Neutrophils # Seg Neutrophils # Man Lymphocytes # (Manual) POC ABG pH POC ABG pCO2 POC ABG pO2 Sodium Potassium Chloride Carbon Dioxide BUN Creatinine Glucose POC Glucose 184 H Calcium Phosphorus Magnesium Iron 31 L TIBC 173 L Ferritin 510.3 H Alkaline Phosphatase NT-Pro-B Natriuret Pep Total Protein Albumin Lipase Free T4 11/14/18 11/14/18 11/14/18 05:12 07:59 10:05 WBC 19.8 H RBC 2.67 L Hgb 8.4 L Hct 25.2 L MCV MCH MCHC RDW Plt Count Lymph % (Auto) [place] % (Auto) Lymph # [place] # Seg Neutrophils % Seg Neuts % (Manual) 96.0 H Lymphocytes % (Manual) 0 L Seg Neutrophils # Seg Neutrophils # Man 19.0 H Lymphocytes # (Manual) 0.0 L POC ABG pH 7.470 H POC ABG pCO2 POC ABG pO2 Sodium Potassium Chloride Carbon Dioxide BUN Creatinine Glucose POC Glucose 178 H Calcium Phosphorus Magnesium Iron TIBC Ferritin Alkaline Phosphatase NT-Pro-B Natriuret Pep Total Protein Albumin Lipase Free T4 11/14/18 11/14/18 11/14/18 11:40 18:03 23:15 WBC RBC Hgb Hct MCV MCH MCHC RDW Plt Count Lymph % (Auto) [place] % (Auto) Lymph # [place] # Seg Neutrophils % Seg Neuts % (Manual) Lymphocytes % (Manual) Seg Neutrophils # Seg Neutrophils # Man Lymphocytes # (Manual) POC ABG pH POC ABG pCO2 POC ABG pO2 Sodium Potassium Chloride Carbon Dioxide BUN Creatinine Glucose POC Glucose 168 H 221 H 223 H Calcium Phosphorus Magnesium Iron TIBC Ferritin Alkaline Phosphatase NT-Pro-B Natriuret Pep Total Protein Albumin Lipase Free T4 11/15/18 11/15/18 11/15/18 05:29 11:33 12:13 WBC RBC Hgb Hct MCV MCH MCHC RDW Plt Count Lymph % (Auto) [place] % (Auto) Lymph # [place] # Seg Neutrophils % Seg Neuts % (Manual) Lymphocytes % (Manual) Seg Neutrophils # Seg Neutrophils # Man Lymphocytes # (Manual) POC ABG pH POC ABG pCO2 46.1 H POC ABG pO2 107 H Sodium Potassium Chloride Carbon Dioxide BUN Creatinine Glucose POC Glucose 210 H 199 H Calcium Phosphorus Magnesium Iron TIBC Ferritin Alkaline Phosphatase NT-Pro-B Natriuret Pep Total Protein Albumin Lipase Free T4 11/15/18 11/15/18 11/15/18 14:32 17:45 23:29 WBC RBC Hgb Hct MCV MCH MCHC RDW Plt Count Lymph % (Auto) [place] % (Auto) Lymph # [place] # Seg Neutrophils % Seg Neuts % (Manual) Lymphocytes % (Manual) Seg Neutrophils # Seg Neutrophils # Man Lymphocytes # (Manual) POC ABG pH POC ABG pCO2 POC ABG pO2 Sodium 149 H Potassium 3.1 L Chloride 109.2 H Carbon Dioxide BUN 36 H Creatinine 0.5 L Glucose 164 H POC Glucose 154 H 163 H Calcium 7.5 L Phosphorus Magnesium Iron TIBC Ferritin Alkaline Phosphatase NT-Pro-B Natriuret Pep Total Protein Albumin Lipase Free T4 11/16/18 11/16/18 11/16/18 05:54 12:05 12:57 WBC RBC Hgb Hct MCV MCH MCHC RDW Plt Count Lymph % (Auto) [place] % (Auto) Lymph # [place] # Seg Neutrophils % Seg Neuts % (Manual) Lymphocytes % (Manual) Seg Neutrophils # Seg Neutrophils # Man Lymphocytes # (Manual) POC ABG pH POC ABG pCO2 POC ABG pO2 Sodium 150 H Potassium 3.0 L Chloride 109.0 H Carbon Dioxide BUN 41 H Creatinine 0.5 L Glucose 158 H POC Glucose 168 H 176 H Calcium 7.6 L Phosphorus Magnesium Iron TIBC Ferritin Alkaline Phosphatase NT-Pro-B Natriuret Pep Total Protein Albumin Lipase Free T4 11/16/18 11/16/18 11/17/18 16:49 23:22 04:25 WBC 16.2 H RBC 2.72 L Hgb 8.7 L Hct 25.9 L MCV MCH MCHC RDW 15.6 H Plt Count Lymph % (Auto) [place] % (Auto) Lymph # [place] # Seg Neutrophils % Seg Neuts % (Manual) 97.0 H Lymphocytes % (Manual) 1.0 L Seg Neutrophils # Seg Neutrophils # Man 15.7 H Lymphocytes # (Manual) 0.2 L POC ABG pH POC ABG pCO2 POC ABG pO2 Sodium Potassium Chloride Carbon Dioxide BUN Creatinine Glucose POC Glucose 163 H 230 H Calcium Phosphorus Magnesium Iron TIBC Ferritin Alkaline Phosphatase NT-Pro-B Natriuret Pep Total Protein Albumin Lipase Free T4 11/17/18 11/17/18 11/17/18 04:25 05:56 12:39 WBC RBC Hgb Hct MCV MCH MCHC RDW Plt Count Lymph % (Auto) [place] % (Auto) Lymph # [place] # Seg Neutrophils % Seg Neuts % (Manual) Lymphocytes % (Manual) Seg Neutrophils # Seg Neutrophils # Man Lymphocytes # (Manual) POC ABG pH POC ABG pCO2 POC ABG pO2 Sodium 152 H Potassium 3.4 L Chloride 109.9 H Carbon Dioxide 32 H BUN 40 H Creatinine 0.5 L Glucose 155 H POC Glucose 173 H 193 H Calcium 7.9 L Phosphorus Magnesium Iron TIBC Ferritin Alkaline Phosphatase NT-Pro-B Natriuret Pep Total Protein Albumin Lipase Free T4 11/17/18 11/17/18 11/18/18 17:08 23:06 04:26 WBC 18.3 H RBC 2.52 L Hgb 8.0 L Hct 24.5 L MCV MCH MCHC RDW 16.0 H Plt Count Lymph % (Auto) [place] % (Auto) Lymph # [place] # Seg Neutrophils % Seg Neuts % (Manual) 96.0 H Lymphocytes % (Manual) 0 L Seg Neutrophils # Seg Neutrophils # Man 17.6 H Lymphocytes # (Manual) 0.0 L POC ABG pH POC ABG pCO2 POC ABG pO2 Sodium Potassium Chloride Carbon Dioxide BUN Creatinine Glucose POC Glucose 203 H 167 H Calcium Phosphorus Magnesium Iron TIBC Ferritin Alkaline Phosphatase NT-Pro-B Natriuret Pep Total Protein Albumin Lipase Free T4 11/18/18 11/18/18 11/18/18 04:26 05:29 13:52 WBC RBC Hgb Hct MCV MCH MCHC RDW Plt Count Lymph % (Auto) [place] % (Auto) Lymph # [place] # Seg Neutrophils % Seg Neuts % (Manual) Lymphocytes % (Manual) Seg Neutrophils # Seg Neutrophils # Man Lymphocytes # (Manual) POC ABG pH POC ABG pCO2 POC ABG pO2 Sodium 149 H Potassium Chloride 110.5 H Carbon Dioxide BUN 41 H Creatinine 0.4 L Glucose 127 H POC Glucose 128 H 109 H Calcium 7.9 L Phosphorus Magnesium Iron TIBC Ferritin Alkaline Phosphatase NT-Pro-B Natriuret Pep Total Protein Albumin Lipase Free T4 11/18/18 11/18/18 11/19/18 18:05 23:33 05:34 WBC RBC Hgb Hct MCV MCH MCHC RDW Plt Count Lymph % (Auto) [place] % (Auto) Lymph # [place] # Seg Neutrophils % Seg Neuts % (Manual) Lymphocytes % (Manual) Seg Neutrophils # Seg Neutrophils # Man Lymphocytes # (Manual) POC ABG pH POC ABG pCO2 POC ABG pO2 Sodium Potassium Chloride Carbon Dioxide BUN Creatinine Glucose POC Glucose 174 H 178 H 116 H Calcium Phosphorus Magnesium Iron TIBC Ferritin Alkaline Phosphatase NT-Pro-B Natriuret Pep Total Protein Albumin Lipase Free T4 11/19/18 11/19/18 11/19/18 08:35 08:35 11:31 WBC 22.3 H RBC 2.80 L Hgb 8.9 L Hct 26.7 L MCV MCH MCHC RDW 16.5 H Plt Count Lymph % (Auto) [place] % (Auto) Lymph # [place] # Seg Neutrophils % Seg Neuts % (Manual) Lymphocytes % (Manual) Seg Neutrophils # Seg Neutrophils # Man Lymphocytes # (Manual) POC ABG pH POC ABG pCO2 POC ABG pO2 Sodium 147 H Potassium Chloride 107.2 H Carbon Dioxide BUN 35 H Creatinine 0.3 L Glucose 117 H POC Glucose 161 H Calcium 7.9 L Phosphorus Magnesium Iron TIBC Ferritin Alkaline Phosphatase NT-Pro-B Natriuret Pep Total Protein Albumin Lipase Free T4 11/19/18 11/20/18 11/20/18 23:43 04:19 04:19 WBC 13.7 H RBC 2.50 L Hgb 8.0 L Hct 24.2 L MCV MCH MCHC RDW 16.9 H Plt Count Lymph % (Auto) [place] % (Auto) Lymph # [place] # Seg Neutrophils % Seg Neuts % (Manual) Lymphocytes % (Manual) Seg Neutrophils # Seg Neutrophils # Man Lymphocytes # (Manual) POC ABG pH POC ABG pCO2 POC ABG pO2 Sodium Potassium Chloride Carbon Dioxide BUN 35 H Creatinine 0.3 L Glucose 178 H POC Glucose 243 H Calcium 7.9 L Phosphorus Magnesium Iron TIBC Ferritin Alkaline Phosphatase NT-Pro-B Natriuret Pep Total Protein Albumin Lipase Free T4 11/20/18 11/21/18 11/21/18 05:38 05:37 05:49 WBC 16.1 H RBC 2.76 L Hgb 8.9 L Hct 26.8 L MCV MCH MCHC RDW 16.8 H Plt Count Lymph % (Auto) [place] % (Auto) Lymph # [place] # Seg Neutrophils % Seg Neuts % (Manual) Lymphocytes % (Manual) Seg Neutrophils # Seg Neutrophils # Man Lymphocytes # (Manual) POC ABG pH POC ABG pCO2 POC ABG pO2 Sodium Potassium Chloride Carbon Dioxide BUN Creatinine Glucose POC Glucose 202 H 162 H Calcium Phosphorus Magnesium Iron TIBC Ferritin Alkaline Phosphatase NT-Pro-B Natriuret Pep Total Protein Albumin Lipase Free T4 11/21/18 11/21/18 11/21/18 05:49 12:12 22:26 WBC RBC Hgb Hct MCV MCH MCHC RDW Plt Count Lymph % (Auto) [place] % (Auto) Lymph # [place] # Seg Neutrophils % Seg Neuts % (Manual) Lymphocytes % (Manual) Seg Neutrophils # Seg Neutrophils # Man Lymphocytes # (Manual) POC ABG pH POC ABG pCO2 POC ABG pO2 Sodium 148 H Potassium Chloride 108.1 H Carbon Dioxide BUN 33 H Creatinine 0.3 L Glucose 133 H POC Glucose 112 H 184 H Calcium 8.1 L Phosphorus Magnesium Iron TIBC Ferritin Alkaline Phosphatase NT-Pro-B Natriuret Pep Total Protein Albumin Lipase Free T4 11/21/18 11/22/18 11/22/18 23:44 05:35 06:10 WBC 16.7 H RBC 2.69 L Hgb 8.6 L Hct 26.0 L MCV MCH MCHC RDW 16.3 H Plt Count Lymph % (Auto) [place] % (Auto) Lymph # [place] # Seg Neutrophils % Seg Neuts % (Manual) Lymphocytes % (Manual) Seg Neutrophils # Seg Neutrophils # Man Lymphocytes # (Manual) POC ABG pH POC ABG pCO2 POC ABG pO2 Sodium Potassium Chloride Carbon Dioxide BUN Creatinine Glucose POC Glucose 177 H 183 H Calcium Phosphorus Magnesium Iron TIBC Ferritin Alkaline Phosphatase NT-Pro-B Natriuret Pep Total Protein Albumin Lipase Free T4 11/22/18 11/22/18 11/22/18 06:10 13:38 17:34 WBC RBC Hgb Hct MCV MCH MCHC RDW Plt Count Lymph % (Auto) [place] % (Auto) Lymph # [place] # Seg Neutrophils % Seg Neuts % (Manual) Lymphocytes % (Manual) Seg Neutrophils # Seg Neutrophils # Man Lymphocytes # (Manual) POC ABG pH POC ABG pCO2 POC ABG pO2 Sodium Potassium Chloride Carbon Dioxide BUN 29 H Creatinine 0.3 L Glucose 147 H POC Glucose 124 H 185 H Calcium 7.4 L Phosphorus Magnesium Iron TIBC Ferritin Alkaline Phosphatase NT-Pro-B Natriuret Pep Total Protein Albumin Lipase Free T4 11/22/18 11/23/18 11/23/18 23:39 05:30 05:30 WBC 20.0 H RBC 2.86 L Hgb 9.3 L Hct 27.6 L MCV MCH 33 H MCHC RDW 16.9 H Plt Count Lymph % (Auto) [place] % (Auto) Lymph # [place] # Seg Neutrophils % Seg Neuts % (Manual) Lymphocytes % (Manual) Seg Neutrophils # Seg Neutrophils # Man Lymphocytes # (Manual) POC ABG pH POC ABG pCO2 POC ABG pO2 Sodium Potassium Chloride Carbon Dioxide BUN 26 H Creatinine 0.3 L Glucose 163 H POC Glucose 166 H Calcium 7.4 L Phosphorus Magnesium Iron TIBC Ferritin Alkaline Phosphatase NT-Pro-B Natriuret Pep Total Protein Albumin Lipase Free T4 11/23/18 11/23/18 11/23/18 11:21 12:34 19:37 WBC RBC Hgb Hct MCV MCH MCHC RDW Plt Count Lymph % (Auto) [place] % (Auto) Lymph # [place] # Seg Neutrophils % Seg Neuts % (Manual) Lymphocytes % (Manual) Seg Neutrophils # Seg Neutrophils # Man Lymphocytes # (Manual) POC ABG pH POC ABG pCO2 POC ABG pO2 Sodium Potassium Chloride Carbon Dioxide BUN Creatinine Glucose POC Glucose 140 H 154 H 202 H Calcium Phosphorus Magnesium Iron TIBC Ferritin Alkaline Phosphatase NT-Pro-B Natriuret Pep Total Protein Albumin Lipase Free T4 11/23/18 11/24/18 11/24/18 23:25 06:32 06:45 WBC 22.7 H RBC 2.92 L Hgb 9.5 L Hct 28.3 L MCV MCH MCHC RDW 17.8 H Plt Count Lymph % (Auto) [place] % (Auto) Lymph # [place] # Seg Neutrophils % Seg Neuts % (Manual) Lymphocytes % (Manual) Seg Neutrophils # Seg Neutrophils # Man Lymphocytes # (Manual) POC ABG pH POC ABG pCO2 POC ABG pO2 Sodium Potassium Chloride Carbon Dioxide BUN Creatinine Glucose POC Glucose 162 H 121 H Calcium Phosphorus Magnesium Iron TIBC Ferritin Alkaline Phosphatase NT-Pro-B Natriuret Pep Total Protein Albumin Lipase Free T4 11/24/18 11/24/18 11/24/18 06:45 11:52 13:03 WBC RBC Hgb Hct MCV MCH MCHC RDW Plt Count Lymph % (Auto) [place] % (Auto) Lymph # [place] # Seg Neutrophils % Seg Neuts % (Manual) Lymphocytes % (Manual) Seg Neutrophils # Seg Neutrophils # Man Lymphocytes # (Manual) POC ABG pH 7.455 H POC ABG pCO2 POC ABG pO2 67 L Sodium Potassium Chloride Carbon Dioxide BUN 25 H Creatinine 0.3 L Glucose 116 H POC Glucose 161 H Calcium 7.5 L Phosphorus Magnesium Iron TIBC Ferritin Alkaline Phosphatase NT-Pro-B Natriuret Pep Total Protein Albumin Lipase Free T4 11/24/18 11/24/18 11/24/18 17:28 21:16 23:59 WBC RBC Hgb Hct MCV MCH MCHC RDW Plt Count Lymph % (Auto) [place] % (Auto) Lymph # [place] # Seg Neutrophils % Seg Neuts % (Manual) Lymphocytes % (Manual) Seg Neutrophils # Seg Neutrophils # Man Lymphocytes # (Manual) POC ABG pH POC ABG pCO2 POC ABG pO2 Sodium Potassium Chloride Carbon Dioxide BUN Creatinine Glucose POC Glucose 205 H 181 H 121 H Calcium Phosphorus Magnesium Iron TIBC Ferritin Alkaline Phosphatase NT-Pro-B Natriuret Pep Total Protein Albumin Lipase Free T4 11/25/18 11/25/18 05:45 05:45 WBC 21.2 H RBC 2.96 L Hgb 9.6 L Hct 29.0 L MCV 98 H MCH MCHC RDW 17.6 H Plt Count Lymph % (Auto) [place] % (Auto) Lymph # [place] # Seg Neutrophils % Seg Neuts % (Manual) 94.0 H Lymphocytes % (Manual) 4.0 L Seg Neutrophils # Seg Neutrophils # Man 19.9 H Lymphocytes # (Manual) 0.8 L POC ABG pH POC ABG pCO2 POC ABG pO2 Sodium Potassium Chloride Carbon Dioxide 32 H BUN 27 H Creatinine 0.3 L Glucose POC Glucose Calcium 7.9 L Phosphorus Magnesium Iron TIBC Ferritin Alkaline Phosphatase NT-Pro-B Natriuret Pep Total Protein Albumin Lipase Free T4 Allied health notes reviewed: nursing
[2018-11-25] MEDS ORDERED: ZOFRAN IV PRN (09:23)
[2018-11-25] MEDS ORDERED: ZOFRAN ONE (09:25)
--- NOTE | 2018-11-25 10:25 | XRay Report ---
AP ABDOMEN: HISTORY: Feeding tube placement. The distal tip of the feeding tube terminates in the expected position of the body of the stomach. The intestinal gas pattern is unremarkable. No evidence for obstruction or large free air. IMPRESSION: The feeding tube terminates in the mid stomach.
[2018-11-25] MEDS: PREVACID SOLUTAB FEEDTUBE SCH (10:57)
[2018-11-25] MEDS: SODIUM CHLORIDE FLUSH SYRINGE 10 ML IV SCH (10:57)
[2018-11-25] MEDS: INDERAL PO SCH (10:58)
--- NOTE | 2018-11-25 12:03 | Progress Note ---
Assessment and Plan Assessment and plan: Acute hypoxic respiratory failure. Patient was reintubated on 10/28/18 and currently on mechanical ventilation. Etiology secondary to COPD/pneumonia/sepsis. Extubated 11/05, re-intubated 11/07 Wean mechanical ventilation per pulmonary. Ongoing CPAP trials Gastric perforation. Repeat CT scan on 10/30 revealed pSBO resolved, no evidence for bowel ischemia. Small contained gastric perforation at lesser curve. No gross free air or contrast extravasation. Surgery recommended conservative management Sepsis/candidemia. Etiology initially most likely related to aspiration pneumonia and gastric perforation. Patient now with Ayla glabrata. PICC line removed. Repeat fungal cultures are negative. Completed a 14 day course of antifungals. Removed current central line and inserted midline. Thrombocytopenia. Now resolved. Etiology likely secondary to sepsis. Hematology following. Bilateral upper lobe/aspiration pneumonia. Sputum culture positive for Escherichia coli and stenotrophomonas. Bilateral pleural effusions. Acute exacerbation COPD, improved. Scheduled Duo Nebs and Pulmicort; albuterol when necessary Presumed aspiration pneumonia versus healthcare associated pneumonia. Tracheal aspirate cultures from 10/28 with Escherichia coli and stenotrophomonas. Completed antibiotics. Hypokalemia. Replete potassium as needed. Hypertension. IV hydralazine when necessary Lupus. Supportive care Fibromyalgia. supportive care History of opioid dependence ADWOA due to vasomotor nephropathy, now resolved Full code status Plan is for LTAC placement. The high probability of a clinically significant, sudden or life threatening deterioration of the [GI and respiratory] system(s) required my full and direct attention, intervention and personal management. The aggregate critical care time was [31] minutes. This time is in addition to time spent performing reported procedures but includes the following: [x] Data Review and interpretation [x] Patient assessment and monitoring of vital signs [x] Documentation [x] Medication orders and management History Interval history: Patient is 73-year-old female with history of hypertension, lupus, fibromyalgia, COPD, opioid dependence (follows Dr. Felix Muñiz at pain clinic) who presented to [facility] ED with complaints of intractable nausea, vomiting, diarrhea for 3 days. On initial presentation to the ED she was found to be tachycardiac with heart rate 113 BPM, leukocytosis with WBC 11.5, elevated BUN/Cr 51/2.1. Patient has history of COPD and at baseline does not require home oxygen use. She was admitted to [facility]. GI was consulted, she was evaluated. CT Abdomen revealed partial SBO versus ileus therefore surgeon consulted. Also patient became more short of breath, placed on BIPAP with no improvement then intubated 10/26/18 for acute resp failure and transferred to ICU. Obstruction series completed on 10/27 which showed improved but small bowel and stomach dilatation. Follow-up series on 10/28 showed no significant change since previous study. NG tube was removed due to patient not tolerating/refusing. Patient was placed back on BiPAP but decompensated on the night of 10/28/18 and had to be reintubated. Patient currently on mechanical ventilation. Patient has had further complications now with findings consistent with contained gastric per foration on repeat CT scan 10/30, managed conservatively. She was extubated 11/05, re-intubated 11/07/18. This is 3rd intubation so Tracheostomy completed on 11/13/18. No PEG yet, for at least 2 weeks because of recent gastric perforation. Patient is very difficult to wean due to anxiety Hospitalist Physical - Constitutional Vitals: Temp Pulse Resp BP Pulse Ox 98.9 F 100 H 21 119/49 96 11/25/18 04:00 11/25/18 10:58 11/25/18 08:00 11/25/18 10:58 11/25/18 09:55 General appearance: Present: mild distress, other (intubated, opens eyes to commands) - EENT Eyes: Present: PERRL, EOM intact ENT: hearing intact, clear oral mucosa, dentition normal - Neck Neck: Present: supple, normal ROM - Respiratory Respiratory effort: normal Respiratory: bilateral: CTA - Cardiovascular Rhythm: regular Heart Sounds: Present: S1 & S2. Absent: gallop, rub - Extremities Extremities: no ischemia, No edema, Full ROM - Abdominal General gastrointestinal: soft, non-tender, non-distended, normal bowel sounds - Integumentary Integumentary: Present: clear, warm, dry - Neurologic Neurologic: CNII-XII intact, moves all extremities Results - Labs CBC & Chem 7: 11/25/18 05:45 11/25/18 05:45 Labs: Laboratory Last Values WBC 21.2 K/mm3 (4.5-11.0) H 11/25/18 05:45 RBC 2.96 M/mm3 (3.65-5.03) L 11/25/18 05:45 Hgb 9.6 gm/dl (10.1-14.3) L 11/25/18 05:45 Hct 29.0 % (30.3-42.9) L 11/25/18 05:45 MCV 98 fl (79-97) H 11/25/18 05:45 MCH 32 pg (28-32) 11/25/18 05:45 MCHC 33 % (30-34) 11/25/18 05:45 RDW 17.6 % (13.2-15.2) H 11/25/18 05:45 Plt Count 180 K/mm3 (140-440) 11/25/18 05:45 Lymph % (Auto) Arc Cutter Plasma Arc 11/14/18 07:59 Valley % (Auto) Arc Cutter Plasma Arc 11/14/18 07:59 Eos % (Auto) Arc Cutter Plasma Arc 11/14/18 07:59 Baso % (Auto) Arc Cutter Plasma Arc 11/14/18 07:59 Lymph # Arc Cutter Plasma Arc 11/14/18 07:59 Valley # Arc Cutter Plasma Arc 11/14/18 07:59 Eos # Arc Cutter Plasma Arc 11/14/18 07:59 Baso # Arc Cutter Plasma Arc 11/14/18 07:59 Add Manual Diff Complete 11/25/18 05:45 Total Counted 100 11/25/18 05:45 Seg Neutrophils % Arc Cutter Plasma Arc 11/17/18 04:25 Seg Neuts % (Manual) 94.0 % (40.0-70.0) H 11/25/18 05:45 0 % 11/25/18 05:45 4.0 % (13.4-35.0) L 11/25/18 05:45 Reactive Lymphs % (Man) 0 % 11/25/18 05:45 2.0 % (0.0-7.3) 11/25/18 05:45 0 % (0.0-4.3) 11/25/18 05:45 0 % (0.0-1.8) 11/25/18 05:45 0 % 11/25/18 05:45 0 % 11/25/18 05:45 0 % 11/25/18 05:45 0 % 11/25/18 05:45 Nucleated RBC % Not Reportable 11/25/18 05:45 Seg Neutrophils # Arc Cutter Plasma Arc 11/14/18 07:59 Seg Neutrophils # Man 19.9 K/mm3 (1.8-7.7) H 11/25/18 05:45 Band Neutrophils # 0.0 K/mm3 11/25/18 05:45 0.8 K/mm3 (1.2-5.4) L 11/25/18 05:45 Abs React Lymphs (Man) 0.0 K/mm3 11/25/18 05:45 0.4 K/mm3 (0.0-0.8) 11/25/18 05:45 0.0 K/mm3 (0.0-0.4) 11/25/18 05:45 0.0 K/mm3 (0.0-0.1) 11/25/18 05:45 0.0 K/mm3 11/25/18 05:45 0.0 K/mm3 11/25/18 05:45 0.0 K/mm3 11/25/18 05:45 Blast Cells # 0.0 K/mm3 11/25/18 05:45 WBC Morphology Not Reportable 11/25/18 05:45 Hypersegmented Neuts Not Reportable 11/25/18 05:45 Hyposegmented Neuts Not Reportable 11/25/18 05:45 Hypogranular Neuts Not Reportable 11/25/18 05:45 Not Reportable 11/25/18 05:45 Not Reportable 11/25/18 05:45 Not Reportable 11/25/18 05:45 Not Reportable 11/25/18 05:45 Not Reportable 11/25/18 05:45 Not Reportable 11/25/18 05:45 Not Reportable 11/25/18 05:45 Not Reportable 11/25/18 05:45 Plt Clumps, EDTA Not Reportable 11/25/18 05:45 Not Reportable 11/25/18 05:45 Rare 11/25/18 05:45 Not Reportable 11/25/18 05:45 Plt Morphology Comment Not Reportable 11/25/18 05:45 RBC Morphology Not Reportable 11/25/18 05:45 Dimorphic RBCs Not Reportable 11/25/18 05:45 Not Reportable 11/25/18 05:45 Not Reportable 11/25/18 05:45 Not Reportable 11/25/18 05:45 Rare 11/25/18 05:45 Not Reportable 11/25/18 05:45 Not Reportable 11/25/18 05:45 1+ 11/25/18 05:45 Not Reportable 11/25/18 05:45 Not Reportable 11/25/18 05:45 Not Reportable 11/25/18 05:45 Not Reportable 11/25/18 05:45 Not Reportable 11/25/18 05:45 Not Reportable 11/25/18 05:45 Few 11/25/18 05:45 Not Reportable 11/25/18 05:45 Not Reportable 11/25/18 05:45 Not Reportable 11/25/18 05:45 Not Reportable 11/25/18 05:45 Not Reportable 11/25/18 05:45 Not Reportable 11/25/18 05:45 Not Reportable 11/25/18 05:45 Acanthocytes (Spur) Not Reportable 11/25/18 05:45 Rouleaux Not Reportable 11/25/18 05:45 Not Reportable 11/25/18 05:45 Not Reportable 11/25/18 05:45 Not Reportable 11/25/18 05:45 Not Reportable 11/25/18 05:45 Hem Pathologist Commnt No 11/25/18 05:45 Heparin Anti-Xa, Unfract Negative (Negative) 10/30/18 13:58 POC ABG pH 7.455 (7.35-7.45) H 11/24/18 13:03 POC ABG pCO2 43.8 (35-45) 11/24/18 13:03 POC ABG pO2 67 (80-105) L 11/24/18 13:03 POC ABG HCO3 30.8 (22-26 mml/L) 11/24/18 13:03 POC ABG Total CO2 32 (23-27mmol/L) 11/24/18 13:03 POC ABG O2 Sat 94 11/24/18 13:03 POC ABG Base Excess 7 ((-2) - (+3)mmol/L) 11/24/18 13:03 28 % 11/24/18 13:03 Sodium 140 mmol/L (137-145) 11/25/18 05:45 Potassium 4.4 mmol/L (3.6-5.0) 11/25/18 05:45 Chloride 100.0 mmol/L (98-107) 11/25/18 05:45 Carbon Dioxide 32 mmol/L (22-30) H 11/25/18 05:45 12 mmol/L 11/25/18 05:45 BUN 27 mg/dL (7-17) H 11/25/18 05:45 0.3 mg/dL (0.7-1.2) L 11/25/18 05:45 Estimated GFR > 60 ml/min 11/25/18 05:45 90 % 11/25/18 05:45 Glucose 82 mg/dL (65-100) 11/25/18 05:45 POC Glucose 117 (70-105) H 11/25/18 11:41 Lactic Acid 1.60 mmol/L (0.7-2.0) 10/26/18 15:03 Calcium 7.9 mg/dL (8.4-10.2) L 11/25/18 05:45 Phosphorus 2.80 mg/dL (2.5-4.5) 11/11/18 05:50 Magnesium 1.80 mg/dL (1.7-2.3) 11/11/18 05:50 Iron 31 ug/dL (37-170) L 11/14/18 03:28 TIBC 173 mcg/dL (250-450) L 11/14/18 03:28 510.3 ng/mL (13.0-400.0) H 11/14/18 03:28 0.30 mg/dL (0.1-1.2) 11/11/18 05:50 AST 26 units/L (5-40) 11/11/18 05:50 ALT 28 units/L (7-56) 11/11/18 05:50 142 units/L (35-129) H 11/11/18 05:50 NT-Pro-B Natriuret Pep 4507 pg/mL (0-900) H 11/07/18 04:55 4.4 g/dL (6.3-8.2) L 11/11/18 05:50 2.1 g/dL (3.9-5) L 11/11/18 05:50 0.9 % 11/11/18 05:50 Triglycerides 132 mg/dL (2-149) 11/01/18 06:40 10 units/L (13-60) L 10/22/18 15:54 See scanned result 10/30/18 13:58 TSH 3.150 mlU/mL (0.270-4.200) 10/31/18 17:00 Free T4 0.49 ng/dL (0.76-1.46) L 10/31/18 17:00 Dulce (Yellow) 10/22/18 19:10 Clear (Clear) 10/22/18 19:10 5.0 (5.0-7.0) 10/22/18 19:10 Ur Specific Parsons 1.018 (1.003-1.030) 10/22/18 19:10 30 mg/dl mg/dL (Negative) 10/22/18 19:10 Neg mg/dL (Negative) 10/22/18 19:10 Tr mg/dL (Negative) 10/22/18 19:10 Neg (Negative) 10/22/18 19:10 Neg (Negative) 10/22/18 19:10 Neg (Negative) 10/22/18 19:10 < 2.0 mg/dL (<2.0) 10/22/18 19:10 Ur Leukocyte Esterase Neg (Negative) 10/22/18 19:10 1.0 /HPF (0.0-6.0) 10/22/18 19:10 3.0 /HPF (0.0-6.0) 10/22/18 19:10 Heparin-induced Plt Ab Negative (Negative) 10/30/18 13:58 UF Heparin High Dose 0 % Release 10/30/18 13:58 KIMO UFH Low Dose 0.1 0 % Release 10/30/18 13:58 KIMO UFH Low Dose 0.5 0 % Release 10/30/18 13:58 Active Medications - Current Medications Current Medications: Generic Name Dose Route Start Last Admin Trade Name Freq PRN Reason Stop Dose Admin Acetaminophen 650 mg 10/22/18 20:10 11/22/18 09:34 Tylenol PO 650 mg Q4H PRN Administration Pain MILD(1-3)/Fever >100.5/PORTER Lipase/Protease/Amylase 1 each 11/05/18 10:13 Pancremaranda Simpson 10,500 Unit FEEDTUBE PRN PRN For Clogged Feeding Tube Arformoterol Tartrate 15 mcg 11/05/18 20:00 11/25/18 07:22 Brovana Nebu IH 15 mcg Q12HRT RICK Administration Budesonide 0.5 mg 10/23/18 08:00 11/25/18 07:22 Pulmicort IH 0.5 mg Q12HRT RIKC Administration Clonazepam 1 mg 11/24/18 21:00 11/25/18 10:59 Klonopin PO 1 mg TID RICK Administration Dextrose 50 ml 10/26/18 23:40 10/27/18 00:20 D50w (25gm) Syringe IV 50 ml PRN PRN Administration Hypoglycemia Enoxaparin Sodium 40 mg 11/14/18 22:00 11/24/18 21:00 Lovenox SUB-Q 40 mg QDAY@2200 RICK Administration Gabapentin 600 mg 11/12/18 10:00 11/25/18 06:35 Neurontin PO 600 mg Q8HR RICK Administration Hydrophilic Ointment 1 applic 11/07/18 09:14 Vaseline Lip Therapy TP Q2HR PRN Dry Lips Insulin Human Isoph/Insulin Regular 12 unit 11/10/18 22:00 11/25/18 11:01 Humulin 70/30 SUB-Q 12 unit BID RICK Administration Insulin Human Lispro 0 unit 10/29/18 12:00 11/25/18 06:35 Humalog SUB-Q Not Given Q6HR [facility] Protocol Lansoprazole 30 mg 11/17/18 10:00 11/25/18 10:57 Prevacid Solutab FEEDTUBE 30 mg QDAY RICK Administration Multi-Ingred Cream/Lotion/Oil/Oint 1 applic 11/07/18 09:14 Artificial Tears Ophth Oint OU Q4HR PRN Dry Eye(s) Ondansetron HCl 4 mg 11/25/18 09:23 Zofran IV Q6H PRN Nausea And Vomiting Oxycodone/Acetaminophen 1 tab 11/24/18 10:16 11/24/18 21:12 Percocet 5/325 PO 1 tab Q4H PRN Administration Pain, Moderate (4-6) Phenol 1 spray 10/28/18 10:16 Chloraseptic MM PRN PRN Sore Throat Propranolol HCl 20 mg 11/18/18 14:00 11/25/18 10:58 Inderal PO 20 mg TID RICK Administration Quetiapine Fumarate 300 mg 11/12/18 10:00 11/25/18 11:00 Seroquel PO 300 mg DAILY RICK Administration Simple Syrup 15 ml 11/05/18 10:13 Simple Syrup FEEDTUBE PRN PRN Hypoglycemia Simple Syrup 30 ml 11/05/18 10:13 Simple Syrup FEEDTUBE PRN PRN Hypoglycemia Sodium Bicarbonate 325 mg 11/05/18 10:13 Sodium Bicarbonate FEEDTUBE PRN PRN For Clogged Feeding Tube Sodium Chloride 10 ml 10/22/18 22:00 11/25/18 10:57 Sodium Chloride Flush Syringe 10 Ml IV 10 ml BID RICK Administration Nutrition/Malnutrition Assess - Dietary Evaluation Nutrition/Malnutrition Findings: Nutrition Notes Start: 10/23/18 17:03 Freq: Status: Active Protocol: Document 11/21/18 17:45 RM (Rec: 11/21/18 17:51 RM [id number]) Nutrition Notes Initial or Follow up Reassessment Current Diagnosis COPD,Sepsis,Hypertension, Respiratory Failure Other Pertinent Diagnosis Gastric peforation, bilat pneu Current Diet Promote at 70 ml/hr Labs/Tests Na 148 Pertinent Medications Solu-Medrol Height 5 ft 3 in Weight 61.1 kg [place] Body Weight (kg) 52.27 BMI 23.8 Subjective/Other Information Observed Promote infusing at goal rate. Pt still having diarrhea. Per nurse pt tolerating TF. During rounds MD requested increase of water flush to adress hypernatremia. Percent of energy/protein needs met: 100%/100% Burn Absent Trauma Absent #1 Nutrition Diagnosis Inadequate oral intake Diagnosis Progress(for reassessment Continues documentation) Is patient on ventilator? Yes Is Patient Ambulatory and/or Out of Bed No REE-([facility]-confined to bed) 1314.324 Kcal/Kg value to use for calculation 25 Approximate Energy Requirements Using 1528 kcal/Kg Calculation Used for Recommendations [facility] Additional Notes Pro needs 1.2-2g/kg (based on UBW): 60-100g/day Fluid needs 1ml/kcal Nutrition Intervention Nutrition Support: Promote 70 ml/hr. Water flush of 200 ms q 4 hrs or per MD until hyperatremia resolves. Water flush of 50 ml q 4 hrs once hypernatremia resolves. Kcal 1,680 Protein (gm) 105 Carbohydrates (gm) 93 Fat (gm) 45 Fluid (mL) 1,410 Fiber (gm) 0 Goal #1 TF tolerance Goal #2 TF to continue to meet at least 75% energy and pro needs Follow-Up By: 11/26/18 Additional Comments Follow for TF tolerance, Na lab
--- NOTE | 2018-11-25 13:23 | Discharge Summary ---
Providers - Providers Date of Admission: 10/22/18 20:10 Date of discharge: 11/25/18 Attending physician: SILVA CORONA 10/22/18 21:03 Consult to Physician [CONS] Routine Comment: KEVEN Consulting Provider: TIO MIRELES Physician Instructions: CONSULT WAS CALLED TO /LAVON Reason For Exam: colitis, n/v/d 10/22/18 21:04 Consult to Physician [CONS] Routine Comment: Consulting Provider: YAMIL WINTERS Physician Instructions: Reason For Exam: arun/ arf 10/26/18 08:19 Consult to Physician [CONS] Routine Comment: called ans. serv./raheel Consulting Provider: CHARLES JOINER Physician Instructions: Reason For Exam: acute resp failure 10/26/18 08:21 Consult to Physician [CONS] Routine Comment: dr. wagner aware/raheel Consulting Provider: OLIVE WAGNER Physician Instructions: Reason For Exam: Possible bowel obstruction 10/26/18 14:48 PICC Line Insertion [Consult to PICC Line RN] [CONS] Urgent Reason For Exam: critical patient, possible vasopressors Type Line:: PICC 10/30/18 09:09 Consult to Physician [CONS] Routine Comment: Consulting Provider: JULIANE GARRISON Physician Instructions: Reason For Exam: persistent leukocytosis, PNA 10/31/18 10:18 Consult to Physician [CONS] Routine Comment: Consulting Provider: OVI LAUREANO Physician Instructions: Reason For Exam: bradycardia,pl effusions/ascites,CMP? 11/02/18 09:51 Consult to PICC Line RN [CONS] Stat Reason For Exam: IV access Type Line:: Midline 11/02/18 10:57 Consult to Physician [CONS] Routine Comment: Consulting Provider: FRANCES ALANIZ Physician Instructions: Reason For Exam: thrombocytopenia 11/05/18 10:13 Consult to Dietitian/Nutrition [CONS] Routine Physician Instructions: Assess nutrtn needs, initiate, modify, manage TF Reason For Exam: Reason for Consult: Write/Manage Tube Feeding Reason for Consult: Write/Manage Tube Feeding 11/11/18 08:31 Consult to Dietitian/Nutrition [CONS] Routine Physician Instructions: Assess nutrtn needs, initiate, modify, manage TF Reason For Exam: ok to adv TF to goal and wean TPN Reason for Consult: Write/Manage Tube Feeding Reason for Consult: Write/Manage Tube Feeding 11/11/18 18:40 Consult to Wound/ET Nurse [CONS] Routine Reason For Exam: wound eval SACRUM 11/12/18 10:45 Consult to PICC Line RN [CONS] Routine Reason For Exam: poor access Type Line:: Midline 11/17/18 10:10 Physical Therapy Evaluation and Treat [CONS] Routine Comment: Reason For Exam: Debility [facility] Reason for admission: n/v/d Condition: Fair Hospital course: Patient is 73-year-old female with history of hypertension, lupus, fibromyalgia, COPD, opioid dependence (follows Dr. Felix Muñiz at pain clinic) who presented to [facility] ED with complaints of intractable nausea, vomiting, diarrhea for 3 days. On initial presentation to the ED she was found to be tachycardiac with heart rate 113 BPM, leukocytosis with WBC 11.5, elevated BUN/Cr 51/2.1. Patient has history of COPD and at baseline does not require home oxygen use. She was admitted to the floor and GI was consulted. She was evaluated with CT Abdomen which revealed partial SBO versus ileus therefore surgery was consulted. Later during hospital course resp failure developed requiring BIPAP with no improvement and therefore intubated 10/26/18 for acute resp failure and transferred to ICU. Obstruction series completed on 10/27 which showed improvement but continued small bowel obstruction and stomach dilatation. Follow-up series on 10/28 showed no significant change since previous study. NG tube was removed due to patient not tolerating/refusing. Patient was extubated but placed back on BiPAP because decompensated on the night of 10/28/18 and had to be reintubated. Patient currently on mechanical ventilation. Patient has had further complications now with findings consistent with contained gastric perforation on repeat CT scan 10/30, managed conservatively. She was extubated 11/05, re-intubated 11/07/18. This was 3rd intubation so Tracheostomy completed on 11/13/18. No PEG yet, for at least 2 weeks because of recent gastric perforation. Follow up CT showed no contrast leak. Now on Dobbhoff tube feeds. Patient is very difficult to wean due to anxiety. Other issues complicating hospital course/respiratory failure included sepsis secondary to candidemia and bilateral upper lobe aspiration pneumonia/pleural effusions along with acute exacerbation of COPD. Presumed aspiration pneumonia v/s HAP: Tracheal asp cultures 10/28/2018 with E.coli and Stenotrophomonas. Stenotrophomonas is a known colonizer in patients with structural lung disease or tracheostomy tubes/ET tubes, not generally considered very virulent. Given her prolonged and complicated hospital stay, completed a 10 day course of abx. Repeat sputum cx + E coli (colinizer) but repeat CXR negative.Patient was treated with 14 day course of antifungals. The candidemia was in the setting of TPN and PICC line sepsis. PICC line was previously removed and now patient has temporary central line. TTE not optimal quality, but repeat fungal blood cultures are negative, so no need for LAUREN. Issues that remain include diarrhea ? C. difficile colitis which will be monitored at the LTAC along with aggressive weaning for the respiratory failure. Patient is currently off antibiotics per ID. Disposition: DC/TX-70 ANOTHER TYPE HLTHCARE Time spent for discharge: 40 - Discharge Diagnoses (1) Acute heart failure with preserved ejection fraction Status: Acute (2) Acute respiratory failure with hypoxia Status: Acute (3) Diabetes 1.5, managed as type 1 Status: Acute (4) Intractable nausea and vomiting Status: Acute (5) Nausea & vomiting Status: Acute (6) Opioid dependence Status: Acute (7) Paroxysmal atrial flutter Status: Acute (8) Perforated gastric ulcer Status: Acute (9) SIRS (systemic inflammatory response syndrome) Status: Acute (10) Tachy-adama syndrome Status: Acute (11) Thrombocytopenia Status: Acute (12) COPD (chronic obstructive pulmonary disease) Status: Chronic Core Measure Documentation - Palliative Care Palliative Care/ Comfort Measures: Not Applicable - Core Measures Any of the following diagnoses?: none Exam - Constitutional Vitals: Temp Pulse Resp BP Pulse Ox 98.9 F 100 H 21 119/49 96 11/25/18 04:00 11/25/18 10:58 11/25/18 08:00 11/25/18 10:58 11/25/18 09:55 General appearance: Present: no acute distress, well-nourished - EENT Eyes: Present: PERRL ENT: hearing intact, clear oral mucosa - Neck Neck: Present: supple, normal ROM - Respiratory Respiratory effort: normal Respiratory: bilateral: CTA - Cardiovascular Heart Sounds: Present: S1 & S2. Absent: rub, click - Extremities Extremities: pulses symmetrical, No edema Peripheral Pulses: within normal limits - Abdominal General gastrointestinal: Present: soft, non-tender, non-distended, normal bowel sounds Female genitourinary: Present: normal - Integumentary Integumentary: Present: clear, warm, dry - Musculoskeletal Musculoskeletal: gait normal, strength equal bilaterally - Psychiatric Psychiatric: appropriate mood/affect, intact judgment & insight - Neurologic Neurologic: CNII-XII intact, moves all extremities Plan Activity: advance as tolerated Weight Bearing Status: Non-Weight Bearing Diet: per dietitian instruction Follow up with: JACQUELYN BUSTOS MD [Primary Care Provider] - 3-5 Days
[2018-11-25 15:55] VITALS: BP 110/48
== END 2018-11-25 15:00 | disposition other institution (70) | DRG 4 ==
LOC: ED 15:00 → 2B-ACE 20:10 → CC1 10-26 14:57
PROVIDERS: ADMIT Internal Medicine; ATTEND Hospitalist
PROC: 5A1955Z Respiratory Ventilation, Greater than 96 Consecutive Hours (ICD-10-PCS; principal; 2018-10-26)
PROC: 0BH17EZ Insertion of Endotracheal Airway into Trachea, Via Natural or Artificial Opening (ICD-10-PCS; 2018-10-26)
PROC: 02HV33Z Insertion of Infusion Device into Superior Vena Cava, Percutaneous Approach (ICD-10-PCS; 2018-10-26)
PROC: 0D9670Z Drainage of Stomach with Drainage Device, Via Natural or Artificial Opening (ICD-10-PCS; 2018-10-27)
PROC: 0BP1XDZ Removal of Intraluminal Device from Trachea, External Approach (ICD-10-PCS; 2018-10-27)
PROC: 0BH17EZ Insertion of Endotracheal Airway into Trachea, Via Natural or Artificial Opening (ICD-10-PCS; 2018-10-29)
PROC: 02HV33Z Insertion of Infusion Device into Superior Vena Cava, Percutaneous Approach (ICD-10-PCS; 2018-11-03)
PROC: 0BP1XDZ Removal of Intraluminal Device from Trachea, External Approach (ICD-10-PCS; 2018-11-04)
PROC: 0BH17EZ Insertion of Endotracheal Airway into Trachea, Via Natural or Artificial Opening (ICD-10-PCS; 2018-11-07)
PROC: 0B113F4 Bypass Trachea to Cutaneous with Tracheostomy Device, Percutaneous Approach (ICD-10-PCS; 2018-11-13)
PROC: 4A033R1 Measurement of Arterial Saturation, Peripheral, Percutaneous Approach (ICD-10-PCS; 2018-11-17)
PROC: 02HV33Z Insertion of Infusion Device into Superior Vena Cava, Percutaneous Approach (ICD-10-PCS; 2018-11-20)
PROC: B548ZZA Ultrasonography of Superior Vena Cava, Guidance (ICD-10-PCS; 2018-11-20)
DX: T80.211A Bloodstream infection due to central venous catheter, initial encounter (principal); B37.7 Candidal sepsis; N17.0 Acute kidney failure with tubular necrosis; J69.0 Pneumonitis due to inhalation of food and vomit; I50.31 Acute diastolic (congestive) heart failure; K25.5 Chronic or unspecified gastric ulcer with perforation; G92 Toxic encephalopathy; J96.21 Acute and chronic respiratory failure with hypoxia; J96.22 Acute and chronic respiratory failure with hypercapnia; J44.1 Chronic obstructive pulmonary disease with (acute) exacerbation; F11.20 Opioid dependence, uncomplicated; J91.8 Pleural effusion in other conditions classified elsewhere; I48.92 Unspecified atrial flutter; I13.0 Hypertensive heart and chronic kidney disease with heart failure and stage 1 through stage 4 chronic kidney disease, or unspecified chronic kidney disease; K56.600 Partial intestinal obstruction, unspecified as to cause; E87.0 Hyperosmolality and hypernatremia; I47.1 Supraventricular tachycardia; M32.9 Systemic lupus erythematosus, unspecified; M79.7 Fibromyalgia; F41.9 Anxiety disorder, unspecified; B96.20 Unspecified Escherichia coli [E. coli] as the cause of diseases classified elsewhere; Y83.8 Other surgical procedures as the cause of abnormal reaction of the patient, or of later complication, without mention of misadventure at the time of the procedure; I49.5 Sick sinus syndrome; D69.6 Thrombocytopenia, unspecified; Z96.642 Presence of left artificial hip joint; E10.22 Type 1 diabetes mellitus with diabetic chronic kidney disease; N18.3 Chronic kidney disease, stage 3 (moderate); E86.0 Dehydration; E87.6 Hypokalemia; K52.9 Noninfective gastroenteritis and colitis, unspecified; Z90.49 Acquired absence of other specified parts of digestive tract; Y92.89 Other specified places as the place of occurrence of the external cause; Z90.710 Acquired absence of both cervix and uterus; Z88.2 Allergy status to sulfonamides; Z88.8 Allergy status to other drugs, medicaments and biological substances
CPT/HCPCS: 31500; 36415; 36600; 71045; 71260; 74018; 74019; 74022; 74150; 74177; 80048; 80053; 81001; 82140; 82728; 82803; 82962; 83550; 83690; 83735; 83880; 84100; 84439; 84443; 84478; 85007; 85025; 85027; 86022; 87040; 87045; 87070; 87076; 87103; 87186; 87205; 93005; 93010; 93306; 94002; 94003; 94640; 94644; 94660; 94667; 94668; 94760; G0378; C9113; J0360; J0692; J1170; J1200; J1450; J1644; J1650; J1815; J1940; J1956; J2060; J2248; J2250; J2270; J2405; J2543; J2704; J2916; J2920; J2930; J3010; J3420; J3475; J3480; J7030; J7040; J7042; J7070; Q0169; Q9967

== ENCOUNTER 2020-09-24 08:52 | Emergency (ER) | payer MEDICARE ==
--- NOTE | 2020-09-24 09:05 | Emergency Department Report ---
ED General Adult HPI - General Stated complaint: CARDIAC ARREST Time Seen by Provider: 09/24/20 09:00 - History of Present Illness Initial comments: Patient is a 74-year-old female with history of recent hip fracture and COPD brought to the emergency department in cardiac arrest. Per medics, patient was witnessed by daughter going into arrest, daughter initiated CPR and called 911. Medics arrived and found patient in asystole, gave ongoing [id number] respirations with CPR machine, gave epinephrine 3 times in route to hospital, found patient be hypoglycemic and gave D10. Medics note patient took 1 times Percocet tablet this morning for pain, patient arrives in cardiac arrest, consequently required my immediate attention. - Related Data Home Medications Medication Instructions Recorded Confirmed Last Taken ALPRAZolam [Xanax TAB] 0.25 mg PO Q12H PRN 02/23/19 02/23/19 02/22/19 Furosemide [Lasix TAB] 20 mg PO PRN PRN 02/23/19 02/23/19 Unknown Gabapentin 300 mg PO TID 02/23/19 02/23/19 02/22/19 HYDROcodone/APAP 5-325 [[place] 1 each PO Q4HR PRN 02/23/19 02/23/19 02/22/19 5-325 mg TAB] Ipratropium/Albuter (Nf) 2 puff IH QID PRN 02/23/19 02/23/19 02/22/19 [Combivent Inhaler] Phenergan 0.5 - 1 ml TRANSDERMA Q4H PRN 02/23/19 02/23/19 02/22/19 Pramipexole [Mirapex] 0.5 mg PO BID 02/23/19 02/23/19 Unknown Primidone [Mysoline] 50 mg PO QAM 02/23/19 02/23/19 02/22/19 Primidone [Mysoline] 100 mg PO HS 02/23/19 02/23/19 02/22/19 Quetiapine Fumarate [SEROquel] 300 mg PO QPM 02/23/19 02/23/19 02/22/19 propranoloL [Inderal] 40 mg PO DAILY 02/23/19 02/23/19 Unknown traZODone [Desyrel] 100 mg PO QHS 02/23/19 02/23/19 02/22/19 Previous Rx's Medication Instructions Recorded Last Taken Type cefUROXime [Ceftin] 500 mg PO Q12H #20 tablet 02/26/19 Unknown Rx Allergies Allergy/AdvReac Type Severity Reaction Status Date / Time Sulfa (Sulfonamide Allergy Intermediate Rash Verified 10/22/18 16:30 Antibiotics) metoclopramide HCl Allergy Dizziness Verified 10/22/18 16:30 [From Reglan] prochlorperazine Allergy NECK Verified 10/22/18 16:30 [From Compazine] STIFFNESS ED Review of Systems ROS: Stated complaint: CARDIAC ARREST Other details as noted in HPI Comment: Unobtainable due to pts medical conditions ED Past Medical Hx - Past Medical History Hx Hypertension: No Hx Deep Vein Thrombosis: No 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) Hx Headaches / Migraines: Yes (MAGRAINES- ON DAILY MEDS FOR PREVENTION) Hx Asthma: Yes Hx COPD: Yes (NEB PRN) Hx HIV: No Additional medical history: fibromyalgia lupus - Surgical History Hx Pacemaker: No Hx Internal Defibrillator: No Hx Cholecystectomy: Yes Additional Surgical History: colon surgery total hyst - Social History Smoking Status: Former Smoker - Medications Home Medications: Home Medications Medication Instructions Recorded Confirmed Last Taken Type ALPRAZolam [Xanax TAB] 0.25 mg PO Q12H PRN 02/23/19 02/23/19 02/22/19 History Furosemide [Lasix TAB] 20 mg PO PRN PRN 02/23/19 02/23/19 Unknown History Gabapentin 300 mg PO TID 02/23/19 02/23/19 02/22/19 History HYDROcodone/APAP 5-325 [[place] 1 each PO Q4HR PRN 02/23/19 02/23/19 02/22/19 History 5-325 mg TAB] Ipratropium/Albuter (Nf) 2 puff IH QID PRN 02/23/19 02/23/19 02/22/19 History [Combivent Inhaler] Phenergan 0.5 - 1 ml TRANSDERMA Q4H PRN 02/23/19 02/23/19 02/22/19 History Pramipexole [Mirapex] 0.5 mg PO BID 02/23/19 02/23/19 Unknown History Primidone [Mysoline] 50 mg PO QAM 02/23/19 02/23/19 02/22/19 History Primidone [Mysoline] 100 mg PO HS 02/23/19 02/23/19 02/22/19 History Quetiapine Fumarate [SEROquel] 300 mg PO QPM 02/23/19 02/23/19 02/22/19 History propranoloL [Inderal] 40 mg PO DAILY 02/23/19 02/23/19 Unknown History traZODone [Desyrel] 100 mg PO QHS 02/23/19 02/23/19 02/22/19 History cefUROXime [Ceftin] 500 mg PO Q12H #20 tablet 02/26/19 Unknown Rx ED Physical Exam - General Limitations: Other (Unresponsive) General appearance: in distress - Head Head exam: Present: atraumatic - Eye Eye exam: Present: other ([place]) Pupils: Present: other (Fixed and dilated) - ENT ENT exam: Present: other (Oral airway in place, [id number] respirations ongoing) - Neck Neck exam: Present: normal inspection - Respiratory Respiratory exam: Present: other (No spontaneous respirations, lung sounds normal with BVM) - Cardiovascular Cardiovascular Exam: Present: other (Pulseless) - GI/Abdominal GI/Abdominal exam: Present: soft - Rectal Rectal exam: Present: other - Extremities Exam Extremities exam: Present: other (Lower extremity rotated) - Neurological Exam Neurological exam: Present: other (Unresponsive) - Psychiatric Psychiatric exam: Present: other (Unresponsive) - Skin Skin exam: Present: warm, dry ED Course - Reevaluation(s) Reevaluation #1: 09/24/20 09:03 Patient arrives in cardiac arrest with ongoing CPR and [id number] respirations. Patient arrives with no spontaneous cardiac nor pulmonary activity, seemingly with futile exam. Initially, patient asystole on monitor, consequently given epinephrine. Patient additionally given Narcan for possible opiate overdose, given additional dextrose for possible hypoglycemia, all with ongoing CPR and [id number]-[id number]-tgdt respiration. Patient without any change in status, remains in asystole on monitor, clinically , pronounced at 856 AM. Case discussed with daughter 09/24/20 10:24 Critical Care Time: Yes Critical care time in (mins) excluding proc time.: 20 Critical care attestation.: If time is entered above; I have spent that time in minutes in the direct care of this critically ill patient, excluding procedure time. ED Disposition Clinical Impression: Cardiac arrest Disposition: DC-20 Is pt being admited?: No Referrals: PRIMARY CARE,MD [Primary Care Provider] - 3-5 Days
== END 2020-09-24 10:00 ==
LOC: ED 08:52
DX: I46.9 Cardiac arrest, cause unspecified (principal); G43.909 Migraine, unspecified, not intractable, without status migrainosus; J44.9 Chronic obstructive pulmonary disease, unspecified; Z90.49 Acquired absence of other specified parts of digestive tract; Z98.890 Other specified postprocedural states; Z87.891 Personal history of nicotine dependence; Z79.899 Other long term (current) drug therapy; Z88.2 Allergy status to sulfonamides; Z88.8 Allergy status to other drugs, medicaments and biological substances
CPT/HCPCS: 92950